=== PATIENT | male | born 1965 | race Two or more races ===

== ENCOUNTER 2020-07-12 14:54 | Emergency (ER) | payer OTHER, SELFPAY ==
--- NOTE | ~2020-07-12 | XR_ITS ---
EXAMINATION: XR HAND, RIGHT CLINICAL INFORMATION: Third finger pain. COMPARISON: None TECHNIQUE: PA, lateral, and oblique views of the right hand. FINDINGS: There is no visible fracture, dislocation or bony abnormality. The soft tissues are normal. XR/XR hand RT min 3V IMPRESSION: Unremarkable right hand exam.
[2020-07-12 15:43] VITALS: BP 140/84; PULSE 89; RESP 16; TEMP 36.3; O2SAT 98; BMI 25.0
--- NOTE | 2020-07-12 16:24 | ED.EXTPRO ---
HPI - Extremity Problem General Chief complaint: Extremity Injury, Upper Stated complaint: finger pain Time Seen by Provider: 07/12/20 16:24 History of Present Illness HPI Narrative: Patient complains of right middle finger pain after punching a wall, the pain is mostly on the palm side of the finger when he bends it fully and straightens it it hurts Related Data Allergies Allergy/AdvReac Type Severity Reaction Status Date / Time glipizide [GLIPIZIDE] Allergy Intermediate ITCHY Verified 07/12/20 15:47 acetaminophen [From TYLOX] AdvReac Intermediate CHEST PAINS Verified 07/12/20 15:47 oxycodone [From TYLOX] AdvReac Intermediate CHEST PAINS Verified 07/12/20 15:47 Review of Systems Review of Systems: Positive for right middle finger pain No fever no chills no numbness no weakness no tingling no skin rash no other joint swelling Yes all other systems are reviewed and are negative PMFSH Past Medical History Source: nursing notes reviewed Medical History (Updated 07/13/20 @ 00:01 by Josesito Clinton) Anxiety Diabetes Physical Exam Vital Signs: Vital Signs: Last Vital Signs Temp 97.4 F 07/12/20 15:43 Pulse 89 07/12/20 15:43 Resp 16 07/12/20 15:43 BP 140/84 H 07/12/20 15:43 Pulse Ox 98 07/12/20 15:43 Body Mass Index 25.0 General appearance no acute distress Head is normocephalic atraumatic Neck is supple Respiratory no acute distress Extremities the right middle finger has mild swelling over the proximal phalanx it does have full range of motion but it is uncomfortable, the skin is intact and it is neurovascular intact distal Other extremities normal Skin no lacerations Neuro no gross motor or sensory deficits Course Course Course Narrative: Patient is given a finger splint for a sprained finger, x-ray was negative for any fracture Discharge Plan Discharge Clinical Impression: Finger sprain Patient Disposition: Home, Self-Care Additional Instructions: Follow with hand specialist for further evaluation for possible soft tissue injury Use splint for comfort as needed Return any concerns Referrals: Suma Lopes MD [Physician] - 2 days (Sprained finger after punching a wall) Interventions: ED Discharge Assessment Last Done: 07/12/20 16:42 Discharge Date/Time: 07/12/20 16:43
== END 2020-07-12 16:43 | disposition home or self-care (01) ==
PROVIDERS: Emergency Provider Emergency Medicine; PCP Internal Medicine
DX: S63.652A Sprain of metacarpophalangeal joint of right middle finger, initial encounter (principal); W22.09XA Striking against other stationary object, initial encounter; E11.9 Type 2 diabetes mellitus without complications; Y93.89 Activity, other specified; Y92.9 Unspecified place or not applicable; Y99.9 Unspecified external cause status
CPT/HCPCS: 29130; 73130; 99283

== ENCOUNTER 2020-11-28 10:09 | Emergency (ER) | payer OTHER, SELFPAY | END 2020-11-28 11:30 | disposition left against medical advice (07) | PROVIDERS: Emergency Provider Emergency Medicine; PCP Internal Medicine | DX: M25.519 Pain in unspecified shoulder (principal) ==

== ENCOUNTER 2021-10-23 11:29 | Emergency (ER) | payer OTHER, SELFPAY ==
[2021-10-23 11:37] VITALS: BP 134/61; PULSE 83; RESP 18; TEMP 36.5; O2SAT 97; BMI 28.8
[2021-10-23 12:43] LABS: COVID-19 Test Negative (Negative); IDNOW Serial# 16C4AD1C
[2021-10-23 12:54] LABS: Strep A Nucleic Acid Negative (Negative)
--- NOTE | 2021-10-23 12:56 | ED_ITS ---
HPI - General Adult General Chief complaint: General Medical Stated complaint: Nasal pain/Throat pain/neck pain Time Seen by Provider: 10/23/21 12:15 Source: patient Mode of arrival: ambulatory History of Present Illness HPI narrative: 56-year-old male with past medical history of anxiety, diabetes, presenting to the ED complaining of left upper dental pain/cracked tooth, left nostril polyp/malodor and sore throat x week. Admits has follow-up with ENT in October. Denies fever, drainage from nostril, dental drainage, inability to swallow, difficulty swallowing, ear pain, cough Onset (ago): week(s) Related Data Previous Rx's Medication Instructions Recorded acetaminophen 500 mg tablet 500 mg PO Q6H PRN fever or pain 10/23/21 (Tylenol Extra Strength) #14 tabs amoxicillin 875 mg-potassium 1 tab PO BID 7 days #14 tabs 10/23/21 clavulanate 125 mg tablet ibuprofen 800 mg tablet 800 mg PO Q8H PRN pain #14 tabs 10/23/21 Allergies Allergy/AdvReac Type Severity Reaction Status Date / Time glipizide [GLIPIZIDE] Allergy Intermediate ITCHY Verified 07/12/20 15:47 acetaminophen [From TYLOX] AdvReac Intermediate CHEST PAINS Verified 07/12/20 15:47 oxycodone [From TYLOX] AdvReac Intermediate CHEST PAINS Verified 07/12/20 15:47 Review of Systems Review of Systems: Constitutional: No Weight loss, No Fever, No Chills ENT/Mouth: No Ear Pain, + Nasal Congestion, + Sinus Pain, No Hoarseness, + sore throat, No Rhinorrhea, No Swallowing Difficulty, +dental pain Cardiovascular: No Chest Pain, No SOB Respiratory: No Cough, No Wheezing Gastrointestinal: No Nausea, No Vomiting, No Diarrhea, No Constipation, No Ab dominal pain Genitourinary: No Dysuria, No Urinary Frequency Musculoskeletal: No joint pain, No Myalgias Skin: No Skin Lesions, No rash Neuro: No Weakness Yes all other systems are reviewed and are negative Constitutional: Constitutional: Reports as per [facility] Past Medical History Attestation statement: The following information was validated with the patient. Medical History (Updated 10/23/21 @ 12:57 by ABHINAV Duarte) Anxiety Diabetes Social History Social History Advance Directives: No Advance Directives Information Provided: Yes Physical Exam ED Vital Signs: Vital Signs - 24 hr 10/23/21 11:37 Temperature 97.7 F Pulse Rate 83 Respiratory Rate 18 Blood Pressure 134/61 Pulse Oximetry 97 Oxygen Delivery Method Room Air BMI result Body Mass Index 28.8 Const General: cooperative, healthy appearing and no acute distress Orientation/consciousness: patient oriented x3 Limitations: no limitations HENMT Other: Left upper cuspid with surrounding gingival irritation and tenderness. No appreciable fluctuance/induration or drainage. No cellulitis Head: Yes normal to inspection and Yes atraumatic Ears: hearing grossly normal bilaterally and TM's normal bilaterally General nose exam: Normal external nose present, no nasal discharge noted and Nasal polyp present on the left (Without active drainage, no pointing, no bleeding) Face and sinus: Yes normal facial exam and Yes sinus tenderness (Left Maxillary) Mouth: Normal oral and palatal mucosa present Teeth and gingiva: poor dentition Throat: Yes posterior oropharynx normal, Yes tonsils normal, No uvula midline, No abnormal tonsil, No uvula laterally displaced and No uvular edema Eyes General: appearance normal, both eyes and all related structures EOM: EOMs intact bilaterally Neck Neck: Yes normal visual inspection and Yes no meningeal signs Resp Effort & Inspection: normal respiratory effort and no respiratory distress Cardio Rate: regular rate Heart sounds: S1 normal heart sound present and S2 normal heart sound present Skin Rashes: no rashes Wounds: no wounds Neuro General: patient oriented x3, tone normal and no meningeal signs Gait exam (Neuro): Normal gait present Extrem General: Yes normal to inspection Medical Decision Making MDM Narrative Medical decision making narrative: 56-year-old male with past medical history of anxiety, diabetes, presenting to the ED complaining of left upper dental pain/cracked tooth, left nostril polyp/malodor and sore throat x week. On exam vital signs stable, NAD, nontoxic appearing, physical exam as above, concern for dental/gingival infection vs sinusitis. No evidence of nasal foreign body, oropharynx WNL. No evidence of dental abscess Plan: COVID-19/rapid strep testing, p.o. antibiotics Medical Records Medical records reviewed: Yes I reviewed the patient's medical records. Lab Data Lab results reviewed: Yes I reviewed the patient's lab results. Labs: Lab Results 10/23/21 10/23/21 Range/Units 12:22 12:22 COVID-19 (BETY) Negative (Negative) COVID-19 Clin Com See Note S. pyogenes GrpA ARIANE Negative (Negative) Discharge Plan Discharge Clinical Impression: Dental infection Patient Disposition: Home, Self-Care Instructions: Mouth Care (ED) Additional Instructions: Augmentin is an antibiotic please take as prescribed. In addition take Tylenol and Motrin for pain. You need to follow-up with a dentist. You likely need her teeth pulled. If the area worsens, pain becomes unbearable, you have fever, drainage from area please return to the ED. You tested negative for COVID-19 and strep throat today Prescriptions: New amoxicillin-pot clavulanate 875-125 mg tablet 1 tab PO BID 7 Days Qty: 14 0RF ibuprofen 800 mg tablet 800 mg PO Q8H PRN (Reason: pain) Qty: 14 0RF acetaminophen [Tylenol Extra Strength] 500 mg tablet 500 mg PO Q6H PRN (Reason: fever or pain) Qty: 14 0RF Referrals: Iban Waldron DMD [Dentist] - Evita Odonnell DMD [Dentist] -
[2021-10-23] MEDS: Ibuprofen 800 MG TABLET PO (13:00)
== END 2021-10-23 13:05 | disposition home or self-care (01) ==
PROVIDERS: Physician Assistant; Emergency Provider Emergency Medicine; PCP Internal Medicine
DX: K04.7 Periapical abscess without sinus (principal); J34.89 Other specified disorders of nose and nasal sinuses; M54.2 Cervicalgia; Z20.822 Contact with and (suspected) exposure to COVID-19; Z79.899 Other long term (current) drug therapy
CPT/HCPCS: 87635; 87651; 99283

== ENCOUNTER 2023-06-25 01:51 | Inpatient (IN) | payer OTHER, SELFPAY ==
[2023-06-25] VITALS (9 sets, daily range): BP systolic 138–166; BP diastolic 69–86; PULSE 55–64; RESP 12–18; TEMP 36.4–36.5; O2SAT 97–100; BMI 24.7
--- NOTE | ~2023-06-25 | MR_ITS ---
MR BRAIN WITHOUT CONTRAST CLINICAL INFORMATION: Suspected acute CVA. COMPARISON: CTA head and neck and head CT 06/25/2023. TECHNIQUE: MRI of the brain was obtained using routine sequences without contrast. FINDINGS: There is no hydrocephalus, extra-axial surface collection, or herniation. There is global cerebral volume loss and there is mild to moderate chronic microangiopathy. The major flow voids at the skull base are preserved. There is no acute infarct on diffusion-weighted imaging. There is no intracranial hemorrhage on the gradient recalled echo acquisition. The midline structures are normal. The cerebellar tonsils are normally positioned. The cerebellum and brainstem are normal. The craniocervical junction is normal. Osseous marrow signal intensity is homogenous. The visualized soft tissues are unremarkable. Moderate right mastoid effusion MR/MR head/brain wo con IMPRESSION: - No acute intracranial findings. No acute infarcts. - There is global cerebral volume loss and there is mild to moderate chronic microangiopathy. - Moderate right mastoid effusion
--- NOTE | ~2023-06-25 | CT_ITS ---
EXAMINATION: CTA NECK WITH CONTRAST (STROKE) CTA BRAIN WITH CONTRAST (STROKE) CLINICAL INFORMATION: Suspect acute stroke. Assess for major vessel occlusion. Please call report. COMPARISON: None available. TECHNIQUE: CTA of the head and neck was performed in the axial plane from the mediastinum to the skull vertex using mL Omnipaque 350 intravenous contrast. Additional reformatted multiplanar images including maximum intensity projection MIP images are generated on the CT workstation. This CT examination was performed using dose optimization techniques as appropriate, variously including the following: *Automated exposure control *Adjustment of mA and/or kV according to patient size (this includes techniques or standardized protocols for targeted exams where dose is matched to indication/reason for exam; i.e. extremities or head) *Use of iterative reconstruction technique DLP: 1535 mGy-cm FINDINGS: The degree of stenosis determined by criteria similar to NASCET. Brain: There is cerebral volume loss with prominence of the lateral and the third ventricles. The cortical sulci are widened appropriately. The fourth ventricle and basal cisterns are normally outlined. There is no acute territorial defect, hemorrhage or midline shift. The extra-axial spaces are unremarkable. Calvarium: Intact. Maxillofacial sinuses and mastoids: Clear as visualized. Chest CTA: There is mild atherosclerotic plaque of the aortic arch. The visualized pulmonary arteries are unremarkable. The right brachycephalic artery, left common carotid artery and left subclavian arteries are patent. There is bilateral upper lobe emphysematous change. Neck CTA: The bilateral internal carotid arteries are patent. The external carotid arteries are also patent. The right vertebral artery is dominant. Both vertebral arteries are patent. Brain CTA: The intracranial internal carotid artery, middle and anterior cerebral arteries are patent. The distal vertebral arteries, basilar artery and branches as well as posterior cerebral arteries are also patent. There is no evidence for aneurysm. CT/CT angio head neck stroke IMPRESSION: 1. No acute territorial infarction or hemorrhage. 2. No intracranial large vessel occlusion. 3. No significant arterial stenosis in the neck. 4. Emphysematous changes in the lungs.
--- NOTE | ~2023-06-25 | CT_ITS ---
EXAMINATION: CT HEAD WITHOUT CONTRAST (STROKE PROTOCOL) CLINICAL INFORMATION: Stroke protocol. Weakness. COMPARISON: None available. TECHNIQUE: Contiguous axial imaging was performed from the skull base to vertex without intravenous administration of contrast. This CT examination was performed using dose optimization techniques as appropriate, variously including the following: *Automated exposure control *Adjustment of mA and/or kV according to patient size (this includes techniques or standardized protocols for targeted exams where dose is matched to indication/reason for exam; i.e. extremities or head) *Use of iterative reconstruction technique DLP: 694 mGy-cm FINDINGS: There is mild cerebral volume loss with prominence of the lateral and the third ventricles. The cortical sulci are widened appropriately. The fourth ventricle and basal cisterns are normally outlined. There is no acute territorial defect, hemorrhage or midline shift. The extra-axial spaces are unremarkable. Calvarium: Intact. Maxillofacial sinuses and mastoids clear as is. CT/CT head for stroke IMPRESSION: 1. No acute intracranial pathology. 2. Mild cerebral volume loss. This critical result was discussed with Dr. Dao at 2:23 AM hours on 06/25/2023. It was ascertained that the content and urgency of the report was understood at the time of direct communication.
--- NOTE | 2023-06-25 02:08 | ECG_ITS ---
Test Reason : STROKE Blood Pressure : / mmHG Vent. Rate : 069 BPM Atrial Rate : 069 BPM P-R Int : 124 ms QRS Dur : 082 ms QT Int : 384 ms P-R-T Axes : 029 053 -16 degrees QTc Int : 411 ms Normal sinus rhythm Cannot rule out Inferior infarct , age undetermined Abnormal ECG When compared with ECG of 21-APR-2018 09:55, Vent. rate has decreased BY 37 BPM Referred By: Srikanth Dao Electronically Signed By:FRANKIE DOTY MD
--- NOTE | 2023-06-25 02:08 | ED_ITS ---
HPI - Neuro Symptoms/Deficit General Chief Complaint: Stroke Stated Complaint: L Side Numbness/?Sinus infection Time Seen by Provider: 06/25/23 02:08 History of Present Illness HPI Narrative: The patient says it 15 minutes before he arrived at the hospital he had woken from sleep and felt that he had left-sided weakness and numbness. He says that he felt weak walking to the bathroom. He says that he had been asleep when he woke up with the symptoms. He was last certain that he was normal at around 10PM. Related Data Previous Rx's ?Medication ?Instructions ?Recorded acetaminophen 500 mg tablet 500 mg PO Q6H PRN fever or pain 10/23/21 (Tylenol Extra Strength) #14 tabs amoxicillin 875 mg-potassium 1 tab PO BID 7 days #14 tabs 10/23/21 clavulanate 125 mg tablet ibuprofen 800 mg tablet 800 mg PO Q8H PRN pain #14 tabs 10/23/21 Allergies Allergy/AdvReac Type Severity Reaction Status Date / Time glipizide [GLIPIZIDE] Allergy Intermediate ITCHY Verified 06/25/23 02:07 acetaminophen [From TYLOX] AdvReac Intermediate CHEST PAINS Verified 06/25/23 02:07 oxycodone [From TYLOX] AdvReac Intermediate CHEST PAINS Verified 06/25/23 02:07 Review of Systems 2 Review of Systems: Yes all other systems are reviewed and are negative [facility] Past Medical History Medical History (Updated 06/25/23 @ 06:09 by Srikanth Dao MD) Anxiety Diabetes Social History Social History Advance Directives: Yes Advance Directives on File: Yes Advance Directives Date on File: 10/24/21 Do you have a plan to hurt others: No Plan Physical Exam 2 Vital Signs: Vital Signs: Last Vital Signs Temp 97.7 F 06/25/23 02:04 Pulse 57 06/25/23 05:55 Resp 15 06/25/23 05:55 BP 139/76 06/25/23 05:55 Pulse Ox 98 06/25/23 05:55 O2 Del Method Room Air 06/25/23 05:55 BMI result Body Mass Index 24.7 Const: Other: The patient is awake and alert. He did not obviously display a neurological deficit. HEENT: Other: There is some mild left-sided facial weakness more apparent when the patient smiles. Eyes: Other: Lateral gaze intact, visual regalado are intact to confrontation Neck: Other: Neck is supple Resp: Effort & Inspection: normal respiratory effort Auscultation: clear to auscultation bilaterally Cardio: Rate: regular rate Rhythm: regular rhythm Heart sounds: S1 normal heart sound present and S2 normal heart sound present GI: Other: Abdomen is soft and nontender Skin: Other: Skin is dry and unremarkable Neuro: Other: The patient is awake, alert, oriented and appropriate. He can correctly tell me the month and his age. He has some mild left-sided facial weakness. Eye movements are intact. Visual regalado are intact. Speech is normal. He has some very slight left arm weakness apparent as very mild pronator drift. Strength in the legs seems symmetrical. Finger-nose is intact. Heel-lombardi is intact. He reports some mild diminished sensation in the left arm in the left face. There is no neglect. NIH stroke scale is 3. Extrem: Other: No peripheral edema Medications Administered Discontinued Medications Generic Name Dose Route Start Last Admin Trade Name Conner PRN Reason Stop Dose Admin Aspirin 325 mg 06/25/23 02:55 06/25/23 03:52 Aspirin 325 Mg Tablet PO 06/25/23 02:56 325 mg ONCE ONE Administration Sodium Chloride 1,000 mls @ 999 mls/hr 06/25/23 03:15 06/25/23 04:55 Ns IV 06/25/23 04:15 Infused .Q1H1M NILE Infusion Iohexol 70 ml 06/25/23 02:28 06/25/23 02:29 Iohexol 350 Mg/Ml 100 Ml Infus..Btl IV 06/25/23 02:29 70 ml ONCE ONE Administration Medical Decision Making Medical Decision Making [facility] Narrative: The patient is a 58-year-old male with a history of type 2 diabetes who came to the emergency room after he woke up and noticed that he had left-sided weakness and numbness. He drove himself to the emergency room. He would discovered the symptoms were apparent only 15 minutes before coming to the emergency room but he had been asleep when he woke to find himself with the left-sided weakness and he estimates that he was last certain he had no left-sided weakness at around 22:00. He therefore presented for evaluation of a possible stroke syndrome with a last known well of 22:00 earlier in the evening. I was asked to see the patient promptly. The patient had very mild symptoms of mild left facial droop and very minimal left arm pronator drift and a sense of minor decreased sensation on the left. His NIH stroke scale was therefore 3. He was sent promptly for a noncontrast head CT and a CT angiogram of the head and neck. I received the reading of his noncontrast head CT at 02:23. This was 4 hours and 23 minutes after his last known well. At that point the patient had not even returned from the CAT scan machine (the CT angiogram was still in process). Ultimately we hit 4-1/2 hour romeo before thrombolytic therapy could be administered. I spoke to the on-call neurologist but it was after the 4-1/2 hour window had closed. Given the mildness of the patient's symptoms I did not feel that this was any great loss as his symptoms were clearly not a disabling stroke. His CT angiogram of the head and neck was ultimately read as showing no acute findings. Patient was given oral aspirin after passing a swallow screen and was also given a L of IV fluids. He was observed while waiting for the results of a CT angiogram and during that time his symptoms entirely resolved. His NIH stroke scale was 0 on my exam after the results of the CT angiogram were available. Therefore this point the patient is behaving more like a TIA than a stroke. In any event he will be admitted to the hospitalist service for further evaluation. Lab Data 06/25/23 02:13 06/25/23 02:13 Labs: Lab Results 06/25/23 06/25/23 Range/Units 02:13 03:28 WBC 8.6 (4.8-10.8) X10*3/uL RBC 5.67 (4.60-5.80) X10*6/uL Hgb 16.2 (14.0-18.0) g/dl Hct 47.2 (42.0-52.0) % MCV 83.2 (80.0-98.0) fL MCH 28.6 (27.0-33.0) pg MCHC 34.3 (31.0-36.0) g/dl RDW 12.4 (11.0-16.0) % Plt Count 218 (160-400) X10*3/uL MPV 9.7 (9.4-12.4) fL Immature Gran % (Auto) 0.5 H (0.0-0.4) % Neut % (Auto) 61.4 (45-73) % Lymph % (Auto) 27.6 (20-40) % [place] % (Auto) 8.6 (2-11) % Eos % (Auto) 1.4 (0-4) % Baso % (Auto) 0.5 (0-2) % Lymph # (Auto) 2.4 (1.2-4.9) X10*3/uL [place] # (Auto) 0.7 (0.1-1.2) X10*3/uL Eos # (Auto) 0.1 (0.0-0.4) X10*3/uL Baso # (Auto) 0.0 (0.0-0.2) X10*3/uL Abs Immat Gran (auto) 0.04 H (0.00-0.03) X10*3/uL Absolute Neuts (auto) 5.3 (2.0-8.3) x10*3/uL Absolute Nucleated RBC 0.000 (0.0-0.012) X10*3/uL Nucleated RBC % (auto) 0.0 (0.0-0.2) /100WBC PT 13.0 (11.1-13.3) SEC INR 1.1 (0.9-1.1) APTT 35.0 (26.0-36.8) SEC Sodium 140 (135-145) mmol/L Potassium 3.7 (3.3-5.1) mmol/L Chloride 102 (96-108) mmol/L Carbon Dioxide 31 H (22-29) mmol/L Anion Gap 11 L (12-20) BUN 14 (9-16) mg/dL Creatinine 1.03 (0.5-1.4) mg/dL Estim Creat Clear Calc 81.7 Estimated GFR > 60 POC Glucose 143 H (60-115) mg/dL Random Glucose 149 H (60-115) mg/dL Calcium 9.5 (8.4-10.2) mg/dL Magnesium 2.1 (1.6-2.6) mg/dL Total Creatine Kinase 192 H (38-174) U/L Troponin I High Sens 2.7 (<3.5-35.0) ng/L B-Natriuretic Peptide 21 (<100) pg/mL Independent Interpretation I performed an independent interpretation of an: EKG Interpretation: EKG at 0207 shows normal sinus rhythm at 62 beats per minute Critical Care Time Critical Care Time Critical Care Time: Yes Total Critical Care Time: 45 Attestation: The patient was critically ill with a high probability of imminent or life- threatening deterioration. ?I spent greater than 30 minutes of discontinuous time evaluating the patient, delivering critical care at the bedside, discussing evaluating data with consultants. ?Critical care time does not include time spent performing separately billable procedures or teaching. ?Time spent performing critical care with 45 minutes. Discharge Plan Discharge Print Language: Yoruba
[2023-06-25 02:17] LABS: Basophils Percent Auto 0.5 % (0-2); Eosinophils Absolute Auto 0.1 X10*3/uL (0.0-0.4); Eosinophils Percent Auto 1.4 % (0-4); Hematocrit 47.2 % (42.0-52.0); Hemoglobin 16.2 g/dl (14.0-18.0); Imm Gran Abs Auto 0.04 X10*3/uL (0.00-0.03); Imm Gran Pct Auto 0.5 % (0.0-0.4); Lymphocytes Absolute Auto 2.4 X10*3/uL (1.2-4.9); Lymphocytes Percent Auto 27.6 % (20-40); MANUAL DIFF FLAG NO; Mean Corpuscular HGB Conc 34.3 g/dl (31.0-36.0); Mean Corpuscular Hemoglobin 28.6 pg (27.0-33.0); Mean Corpuscular Volume 83.2 fL (80.0-98.0); Mean Platelet Volume 9.7 fL (9.4-12.4); Monocytes Absolute Auto 0.7 X10*3/uL (0.1-1.2); Monocytes Percent Auto 8.6 % (2-11); Neutrophils Absolute Auto 5.3 x10*3/uL (2.0-8.3); Neutrophils Percent Auto 61.4 % (45-73); Platelet Count 218 X10*3/uL (160-400); Red Blood Count 5.67 X10*6/uL (4.60-5.80); Red Cell Distribution Width 12.4 % (11.0-16.0); White Blood Count 8.6 X10*3/uL (4.8-10.8)
--- NOTE | 2023-06-25 02:17 | PC.NURSE ---
pt came in from waiting room reporting he drove himself here as 15 min ago pt started having L. sided numbness/L. sided facial droop. on arrival pt is axox4 speaking full clear sentences. no slurred speech noted. L. sided facial droop evident. Dr. Dao called to bedside. stroke alert called. pt changed to hospital gown placed on heart monitor iv established labs drawn. vitals as documented. ekg obtained. pt appears to be having some difficulty finding words when speaking. slight drift noted of LUE. no deficit noted of BLE. pt in ct scan at this time.
[2023-06-25 02:23] LABS: INTERNATIONAL NORM RATIO 1.1 (0.9-1.1)
[2023-06-25] MEDS: iohexoL 350 MG/ML 100 ML INFUS..BTL 70 ML IV (02:29)
--- NOTE | 2023-06-25 02:34 | PC.NURSE ---
pt return from ct. dr. marin at bedside.
[2023-06-25 02:37] LABS: Stroke Lab Use COMPLETE
[2023-06-25 02:40] LABS: Troponin-I High Sensitivity 2.7 ng/L (<3.5-35.0)
--- OUTSIDE RECORDS SUMMARY | 2023-06-25 02:48 | XMS_ITS | Continuity of Care Document ---
Author Organization [facility] Address [address] [place] [address]- Care Team Providers Care Hearing Specialist Name Role Phone Yoel Parrish MD Primary Care Physician Encounter [facility] Date(s): 03/26/21 - 04/28/[address] [address]- Attending Physician: Yoel Parrish MD Admitting Physician: Yoel Parrish MD Referring Physician: Yoel Parrish MD Allergies, Adverse Reactions, Alerts Substance Reaction Severity Status glipiZIDE facial swelling,rash Active Tylox Chest pain not present Activ e Immunizations Given and Recorded Vaccine Date Status Refusal Reason SARS-CoV-2 (COVID-19) mRNA BNT-162b2 vac 03/12/21 Recorded SARS-CoV-2 (COVID-19) mRNA BNT-162b2 vac 06/11/20 Recorded SARS-CoV-2 (COVID-19) mRNA BNT-162b2 vac 05/21/20 Recorded influenza virus vaccine, inactivated 11/18/19 Jose rded influenza virus vaccine, inactivated 1 11/19/18 Gi ancelmo influenza virus vaccine, inactivated 2 11/18/18 Gi ancelmo influenza virus vaccine, inactivated 12/21/17 Jose rded influenza virus vaccine, inactivated 3 01/05/17 Gi ancelmo Zoster Vaccine Live 03/23/19 Recorded zoster vaccine, inactivated 01/25/19 Recorded zoster vaccine, inactivated 11/18/18 Recorded pneumococcal 23-valent vaccine 12/21/17 Recorded pneumococcal 23-valent vaccine 4 11/05/16 Given tetanus/diphtheria/pertussis, acel(Tdap) 01/05/17 Given pneumococcal 13-valent vaccine 5 09/14/16 Recorded 1Result Comment: [facility] [id number] 2Result Comment: [facility] [id number] 3Result Comment: [facility] [phone] 4[facility] History[facility] Medications Aspirin Enteric Coated 81 mg oral delayed release tablet See Instructions, TAKE ONE TABLET BY MOUTH EVERY DAY, # 90 tablet, 3 Refills, 03/22/21 10:20:00 EST, [facility], 167, cm, 03/22/21 9:18:00 EST, Height, 85.8, kg, 04/27/19 11:30:00 EST, Dry Weight Start Date: 03/22/21 Status: Ordered Flovent HFA 110 mcg/inh inhalation aerosol 2 puffs, Inhalation, 2 times a day, for 90 days, # 12 Gm, 3 Refills, Physician Stop 03/17/22 10:20:00 EST, 03/22/21 10:20:00 EST, [facility], 167, cm, 03/22/21 9:18:00 EST, Height, 85.8, kg, 04/27/19 11:30:00 EST, Dry Weight Start Date: 03/22/21 Stop Date: 03/17/22 Status: Ordered Freestyle Lancets See Instructions, # 600 each, Refills 2, Tot. Refills 2, Maintenance, USE TO CHECK GLUCOSE BID DX E11.9, 03/31/19 11:21:00 EST, Compound, 168, cm, 03/28/19 12:20:00 EST, Height Start Date: 03/31/19 Stop Date: 12/26/19 Status: Ordered FREESTYLE LITE TEST STRP FREESTYLE LITE TEST STRP, See Instructions, # 600 Unknown, 4 Refills, TEST BLOOD SUGARS 4 TIMES DAILY, 167, cm, 03/22/21 9:18:00 EST, Height, 85.8, kg, 04/27/19 11:30:00 EST, Dry Weight Start Date: 03/22/21 Status: Ordered Freestyle Lite Test Strips See Instructions, # 720 each, Refills 1, Tot. Refills 1, Maintenance, use to test blood sugars 4 times daily Dx: E11.9, 01/17/21 7:48:00 EST, 90 day supply ; please void 600 strips for 60 days, Compound, 167, cm, 10/26/19 9:29:00 EDT, Height, 85.8, k... Start Date: 01/17/21 Stop Date: 07/16/21 Status: Ordered Freestyle Lite Test Strips See Instructions, for 90 days, # 600 each, Refills 5, Tot. Refills 5, Hard Stop 10/11/22 12:09:00 EDT, use to test blood sugars 4 times daily Dx: E11.9, 04/19/21 12:09:00 EST, Compound, 167, cm, 04/19/21 11:50:00 EST, Height, 85.8, kg, 04/27/19 11:30... Start Date: 04/19/21 Stop Date: 10/11/22 Status: Ordered gabapentin 300 mg oral capsule 300 mg, 1, capsule, By Mouth, Daily at bedtime, # 30 capsule, Refills 5, Tot. Refills 5, Maintenance, 03/22/21 10:17:00 EST, Route to Pharmacy Electronically, [facility], Partial fill upon patient request if the prescription is for a sche... Start Date: 03/22/21 Stop Date: 09/18/21 Status: Ordered Januvia 100 mg oral tablet See Instructions, TAKE ONE TABLET BY MOUTH EVERY DAY, # 90 tablet, 3 Refills, 03/22/21 10:20:00 EST, [facility], 167, cm, 03/22/21 9:18:00 EST, Height, 85.8, kg, 04/27/19 11:30:00 EST, Dry Weight Start Date: 03/22/21 Status: Ordered Lantus Solostar Pen 100 units/mL subcutaneous solution See Instructions, INJECT 15 UNITS SUBCUTANEOUSLY DAILY AT BEDTIME, # 10 mL, 3 Refills, 03/22/21 10:21:00 EST, [facility], 167, cm, 03/22/21 9:18:00 EST, Height, 85.8, kg, 04/27/19 11:30:00 EST, Dry Weight Start Date: 03/22/21 Status: Ordered LORazepam 1 mg oral tablet 1 tablet = 1 mg, By Mouth, 3 times a day, PRN as needed for anxiety, # 90 tablet, 0 Refills, Maintenance, 03/22/21 14:33:00 EST, Tablet, [facility], 167, cm, 03/22/21 9:18:00 EST, Height, 85.8, kg, 04/27/19 11:30:00 EST, Dry Weight Start Date: 03/22/21 Status: Ordered metFORMIN 1000 mg oral tablet 1 tablet = 1,000 mg, By Mouth, 2 times a day, # 180 tablet, 3 Refills, Maintenance, 03/22/21 10:21:00 EST, Tablet, [facility], 167, cm, 03/22/21 9:18:00 EST, Height, 85.8, kg, 04/27/19 11:30:00 EST, Dry Weight Start Date: 03/22/21 Status: Ordered MiraLax oral powder for reconstitution = 17 Gm, By Mouth, 2 times a day, for 90 days, dissolve in water before taking, # 527 Gm, 3 Refills, Hard Stop 04/23/22 8:03:00 EST, 04/28/21 8:03:00 EST, REC Powder, [facility], 17 Gm By Mouth 2 times a day,x90 days,Instr:dissolve in johnny... Start Date: 04/28/21 Stop Date: 04/23/22 Status: Ordered omeprazole 20 mg oral enteric coated capsule 1 capsule = 20 mg, By Mouth, Daily, # 90 capsule, 3 Refills, Maintenance, 04/14/21 8:29:00 EST, EC Capsule, [facility], 167, cm, 03/22/21 9:18:00 EST, Height, 85.8, kg, 04/27/19 11:30:00 EST, Dry Weight Start Date: 04/14/21 Status: Ordered PARoxetine 30 mg oral tablet See Instructions, TAKE ONE TABLET BY MOUTH TWICE A DAY, # 180 tablet, 3 Refills, 03/22/21 10:20:00 EST, [facility], 167, cm, 03/22/21 9:18:00 EST, Height, 85.8, kg, 04/27/19 11:30:00EST, Dry Weight Start Date: 03/22/21 Status: Ordered Pen [place], 31 G x 8 mm BD Ultra Fine III See Instructions, # 100 each, Refills 5, Tot. Refills 5, Maintenance, Use daily with insulin Dx: Type 2 Diabetes Mellitus, 08/07/20 14:26:00 EDT, Supply, 167, cm, 10/26/19 9:29:00 EDT, Height, 85.8, kg, 04/27/19 11:30:00 EST, Dry Weight Start Date: 08/07/20 Stop Date: 02/03/21 Status: Ordered QUEtiapine 150 mg oral tablet, extended release 1, tablet, By Mouth, Daily, for 90 days, # 90 tablet, Refills 3, Tot. Refills 3, Physician Stop 03/17/22 10:20:00 EST, 03/22/21 10:20:00 EST, Route to Pharmacy Electronically, [facility], 167, cm, 03/22/21 9:18:00 EST, Height, 85.8, kg, 0... Start Date: 03/22/21 Stop Date: 03/17/22 Status: Ordered rosuvastatin 10 mg oral tablet 1 tablet = 10 mg, By Mouth, Daily, # 90 tablet, 3 Refills, Maintenance, 04/27/21 12:53:00 EST, Tablet, [facility], 167, cm, 03/22/21 9:18:00 EST, Height, 85.8, kg, 04/27/19 11:30:00 EST, Dry Weight Start Date: 04/27/21 Status: Ordered Ventolin HFA 108 mcg/inh inhalation aerosol with adapter 2 puffs, Inhalation, 4 times a day, PRN for wheezing, # 18 Gm, 3 Refills, Maintenance, 03/22/21 10:21:00 EST, Aerosol, [facility], 167, cm, 03/22/21 9:18:00 EST, Height, 85.8, kg, 04/27/19 11:30:00 EST, Dry Weight Start Date: 03/22/21 Status: Ordered Problem List Condition Effective Dates Status Health Status Inform ant Asthma(Confirmed) Active CKD (chronic kidney disease)(Confirmed) Active Cigarette smoker(Confirmed) Active DM (diabetes mellitus)(Confirmed) Active H. pylori infection(Confirmed) Active Hyperlipidemia(Confirmed) Active Anxiety and depression(Confirmed) Active Hepatic steatosis(Confirmed) Active Gastric regurgitation(Confirmed) Active Social History Social History Type Response Smoking Status Former smoker; Tobac co user in household: No entered on: 08/07/16 Sex
--- OUTSIDE RECORDS SUMMARY | 2023-06-25 02:48 | XMS_ITS | Continuity of Care Document ---
Author Organization [facility] Address [address] [place] [address]- Care Team Providers Care Raw Juice Weigher Name Role Phone Shivani IBARRA, [facility] Primary Care Physician Encounter [facility] Date(s): 05/14/21 - 06/13/21 [facility] [address] [place] [address]- Allergies, Adverse Reactions, Alerts Substance Reaction Severity [...] 13-valent vaccine 5 09/14/16 Recorded 1Result Comment: [facility] [id number] 2Result Comment: [facility] [id number] 3Result Comment: [facility] [phone] 4[facility] [...] EST, Route to Pharmacy Electronically, [facility], Partial fill upon patient request [...] anxiety, # 90 tablet, 0 Refills, Maintenance, 05/15/21 12:35:00 EDT, Tablet, [facility], 167, cm, 04/19/21 11:50:00 EST, Height Start Date: 05/15/21 Status: Ordered metFORMIN 1000 mg oral tablet [...] 8:03:00 EST, 04/28/21 8:03:00 EST, REC Powder, [facility], 17 Gm By [...] Weight Start Date: 03/22/21 Status: Ordered [place], 31 G x 8 mm BD Ultra [...] 03/22/21 10:20:00 EST, Route to Pharmacy Electronically, [facility], 167, cm, 03/22/21 9:18:00 EST, Height, 85.8, kg, 0... Start Date: 03/22/21 Stop Date: 03/17/22 Status: Ordered rosuvastatin 10 mg oral tablet 1 tablet = 10 mg, By Mouth, Daily, # 90 tablet, 3 Refills, Maintenance, 04/27/21 12:53:00 EST, Tablet, [facility], 167, cm, 03/22/21 9:18:00 EST, Height, 85.8, kg, 04/27/19 11:30:00 EST, Dry Weight Start Date: 04/27/21 Status: Ordered Ventolin HFA 108 mcg/inh inhalation aerosol with adapter 2 puffs, Inhalation, 4 times a day, PRN for wheezing, # 18 Gm, 3 Refills, Maintenance, 03/22/21 10:21:00 EST, Aerosol, [facility], 167, cm, 03/22/21 9:18:00 EST, [...]
--- OUTSIDE RECORDS SUMMARY | 2023-06-25 02:48 | XMS_ITS | Continuity of Care Document ---
Author Organization [facility] Address [address] [place] [address]- Care Team Providers Care Manager Investment Name Role Phone Yoel Parrish MD Primary Care Physician ( [phone] Encounter [facility] Date(s): 04/12/19 - 04/19/19 [facility] [address] [place] [address] [facility] Encounter Diagnosis DM (diabetes mellitus)(Discharge Diagnosis) - 04/12/19 Attending Physician: Yoel Parrish MD Allergies, Adverse Reactions, Alerts Substance Reaction Severity Status glipiZIDE Active Tylox Chest pain not present Activ e Immunizations Given and Recorded Vaccine Date Status Refusal Reason Zoster Vaccine Live 03/23/19 Recorded influenza virus vaccine, inactivated 1 11/19/18 Gi ancelmo influenza virus vaccine, inactivated 2 11/18/18 Gi ancelmo influenza virus vaccine, inactivated 3 01/05/17 Gi ancelmo tetanus/diphtheria/pertussis, acel(Tdap) 01/05/17 Given pneumococcal 23-valent vaccine 4 11/05/16 Given pneumococcal 13-valent vaccine 5 09/14/16 Recorded 1Result Comment: [facility] [id number] 2Result Comment: [facility] [phone] 3Result Comment: [facility] [id number] 4[facility]Location History: [facility] Medications aspirin 81 mg oral delayed release tablet 81 mg, 1, tablet, By Mouth, Daily, # 90 tablet, Refills 2, Tot. Refills 2, Maintenance, 07/12/19 10:12:05 EDT, Route to Pharmacy Electronically, [id number], [facility] Start Date: 07/12/19 Stop Date: 04/07/20 Status: Ordered Flovent HFA 110 mcg/inh inhalation aerosol 2 puffs, Inhalation, 2 times a day, # 12 Gm, 5 Refills, Maintenance, 02/07/19 14:05:51 EST, Aerosol, 168, cm, 11/18/18 11:57:26 EDT, Height Start Date: 02/07/19 Status: Ordered Freestyle Lancets See Instructions, # 600 each, Refills 2, Tot. Refills 2, Maintenance, USE TO CHECK GLUCOSE BID DX E11.9, 03/31/19 11:21:00 EST, Compound, 168, cm, 03/28/19 12:20:00 EST, Height Start Date: 03/31/19 Stop Date: 12/26/19 Status: Ordered Freestyle Lite Test Strips See Instructions, # 600 each, Refills 5, Tot. 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 Refills5, Maintenance, 03/23/19 9:45:00 EST, Route to Pharmacy Electronically, [facility], 168, cm, 03/23/19 9:12:00 EST, Height Start Date: 03/23/19 Stop Date: 09/19/19 Status: Ordered Januvia 100 mg oral tablet See Instructions, # 90 tablet, TAKE ONE TABLET BY MOUTH EVERY DAY, [facility] Start Date: 12/22/18 Status: Ordered Lantus Solostar Pen 100 units/mL subcutaneous solution = 15 units, Subcutaneous Injection, Daily at bedtime, # 15 mL, 1 Refills, Maintenance, 03/25/19 15:43:00 EST, Solution, [facility], 168, cm, 03/23/19 9:12:00 EST, Height Start Date: 03/25/19 Stop Date: 05/24/19 Status: Ordered LORazepam 1 mg oral tablet 1 tablet = 1 mg, By Mouth, 3 times a day, PRN as needed for anxiety, 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 SERVICE OPERATOR reviewed [id number], # 90 tablet, 0 Refills, Maintenance, 04/08/19 17:00:00 EST, Tablet, [facility], 168, cm, 03/28/19 12:20:00 EST, Height Start Date: 04/08/19 Stop Date: 05/08/19 Status: Ordered metFORMIN 1000 mg oral tablet 1 tablet = 1,000 mg, By Mouth, 2 times a day, # 180 tablet, 0 Refills, Maintenance, 03/09/19 16:33:00 EST, Tablet, [facility], 168, cm, 11/18/18 11:57:00 EDT, Height Start Date: 03/09/19 Status: Ordered MiraLax oral powder for reconstitution = 17 Gm, By Mouth, 2 times a day, dissolve in water before taking, # 3,060 Gm, 1 Refills, Maintenance, 03/13/19 8:16:00 EST, REC Powder, [facility], 17 Gm By Mouth 2 times a day,x90 days,Instr:dissolve in water before taking, 168, cm, ... Start Date: 03/13/19 Stop Date: 09/09/19 Status: Ordered omeprazole 20 mg oral enteric coated capsule 1 capsule = 20 mg, By Mouth, Daily, # 90 capsule, 1 Refills, Maintenance, 02/01/19 15:50:03 EST, ECCapsule, 168, cm, 11/18/18 11:57:26 EDT, Height Start Date: 02/01/19 Stop Date: 07/31/19 Status: Ordered Paxil 30 mg oral tablet 1 tablet = 30 mg, By Mouth, 2 times a day, # 180 tablet, 1 Refills, Maintenance, 03/22/19 10:29:00 EST, Tablet, [facility], 168, cm, 11/18/18 11:57:00 EDT, Height Start Date: 03/22/19 Stop Date: 09/18/19 Status: Ordered Pen [place], 30 G x 8 mm BD Ultra Fine II See Instructions, # 100 each, Refills 5, Tot. Refills 5, Maintenance, use as directed for Type 1 Diabetes Mellitus, 03/25/19 15:43:00 EST, Compound, 168, cm, 03/23/19 9:12:00 EST, Height Start Date: 03/25/19 Stop Date: 09/21/19 Status: Ordered rosuvastatin 10 mg oral tablet 1 tablet = 10 mg, By Mouth, Daily, # 30 tablet, 11 Refills, Maintenance, 03/23/19 9:46:00 EST, Tablet, [facility], 168, cm, 03/23/19 9:12:00 EST, Height Start Date: 03/23/19 Status: Ordered SEROquel XR 150 mg oral tablet, extended release 150 mg, 1, tablet, By Mouth, Daily, # 30 tablet, Refills 2, Tot. Refills 2, Maintenance, 03/09/19 16:34:00 EST, Route to Pharmacy Electronically, [facility], 168, cm, 11/18/18 11:57:00 EDT, Height Start Date: 03/09/19 Status: Ordered Ventolin HFA 108 mcg/inh inhalation aerosol with adapter 2 puffs, Inhalation, 4 times a day, PRN for wheezing, # 18 Gm, 5 Refills, Maintenance, 06/23/18 8:15:08 EDT, Aerosol Start Date: 06/23/18 Status: Ordered Problem List Condition Effective Dates Status Health Status Inform ant Abdominal bloating(Confirmed) Active Asthma(Confirmed) Active CKD (chronic kidney disease)(Confirmed) Active Straining with stools(Confirmed) Active DM (diabetes mellitus)(Confirmed) Active Epigastric pain(Confirmed) Active H. pylori infection(Confirmed) Active Hyperlipidemia(Confirmed) Active Dyspepsia(Confirmed) Active Anxiety and depression(Confirmed) Active Encounter for screening colonoscopy(Confirmed) Active Hepatic steatosis(Confirmed) Active Gastric regurgitation(Confirmed) Active Diagnosis Diagnosis Type Effective Dates Health Status Cl inical Service Informant DM (diabetes mellitus) Discharge Diagnosis 04/12/19 Vital Signs Most recent to oldest [Reference Range]: 1 Height 168 cm (04/12/19 11:37 AM) Weight 89.1 kg (04/12/19 11:37 AM) Oxygen Saturation [94-100 %] 95 % (04/12/19 11:37 AM) Pulse Rate [55-90 bpm] 105 bpm *H* (04/12/19 11:37 AM) Body Mass Index [18.5-24.99] 31.57 *>HHI* (04/12/19 11:37 AM) Blood Pressure [90-138/55-84 mm Hg] 118/ 78mm Hg (04/12/19 11:37 AM) Respiratory Rate [16-30 br/min] 18 br/mi n (04/12/19 11:37 AM) Temperature [96.8-100.4 DegF] 98.0 DegF (04/12/19 11:37 AM) Mode of Delivery (Oxygen) Room air (04/12/19 11:37 AM) Blood pressure sites Arm, left (04/12/19 11:37 AM) Temperature Route Oral (04/12/19 11:37 AM) Weight Obtained Via Standing scale (04/12/19 11:37 AM) Social History Social History Type Response Smoking Status Former smoker; Tobac co user in household: No entered on: 08/07/16 Sex
--- OUTSIDE RECORDS SUMMARY | 2023-06-25 02:48 | XMS_ITS | Continuity of Care Document ---
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 Name Role Phone Yoel Parrish MD Primary Care Physician ( [phone] Encounter [facility] Date(s): 03/28/19 - 04/04/19 [facility] [address] [place] [address]- [facility] Encounter Diagnosis DM (diabetes mellitus)(Discharge Diagnosis) - 03/28/19 Attending Physician: Yoel Parrish MD Allergies, Adverse [...] 13-valent vaccine 5 09/14/16 Recorded 1Result Comment: [facility] [phone] 2Result Comment: [facility] [id number] 3Result Comment: [facility] [id number] [phone] 4[facility]Location History: [facility] Medications aspirin 81 mg oral delayed release tablet 81 mg, 1, tablet, By Mouth, Daily, # 90 tablet, Refills 2, Tot. Refills 2, Maintenance, 07/12/19 10:12:05 EDT, Route to Pharmacy Electronically, [id number], [facility] Start Date: [...] Refills 5, Tot. 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 reviewed 01/26/2019, # 30 capsule, Refills 5, [...] Solostar Pen 100 units/mL subcutaneous solution = 10 units, Subcutaneous Injection, Daily at bedtime, # 15 mL, 1 Refills, Maintenance, 03/25/19 15:43:00 EST, Solution, [facility], 168, cm, 03/23/19 9:12:00 EST, Height Start Date: 03/25/19 Stop Date: 3/24/20 Status: Ordered LORazepam 1 mg oral tablet 1 tablet = 1 mg, By Mouth, 3 times a day, PRN as needed for anxiety, 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 [id number], # 90 tablet, 2 Refills, Maintenance, 01/10/19 11:42:00 EST, Tablet Start Date: 01/10/19 Stop Date: 04/10/19 Status: Ordered metFORMIN 1000 mg oral tablet [...] 03/22/19 Stop Date: 09/18/19 Status: Ordered Pen [place], 30 G x 8 mm BD Ultra [...] Service Informant DM (diabetes mellitus) Discharge Diagnosis 03/28/19 Vital Signs Most recent to oldest [Reference Range]: 1 Height 168 cm (03/28/19 12:20 PM) Weight 85.2 kg (03/28/19 12:20 PM) Oxygen Saturation [94-100 %] 95 % (03/28/19 12:20 PM) Pulse Rate [55-90 bpm] 101 bpm *H* (03/28/19 12:20 PM) Body Mass Index [18.5-24.99] 30.19 *>HHI* (03/28/19 12:20 PM) Blood Pressure [90-138/55-84 mm Hg] 132/ 80mm Hg (03/28/19 12:20 PM) Temperature [96.8-100.4 DegF] 98.8 DegF (03/28/19 12:20 PM) Mode of Delivery (Oxygen) Room air (03/28/19 12:20 PM) Blood pressure sites Arm, left (03/28/19 12:20 PM) Temperature Route Oral (03/28/19 12:20 PM) Weight Obtained Via Standing scale (03/28/19 12:20 PM) Social History Social History Type Response Smoking Status Former smoker; Tobac co user in household: No entered on: 08/07/16 Sex
--- OUTSIDE RECORDS SUMMARY | 2023-06-25 02:48 | XMS_ITS | Continuity of Care Document ---
Author Organization [facility] Adult Address [address] [place] [address]- Care Team Providers Care Diploma Medical Assistant Name Role Phone Shivani IBARRA, [facility] Primary Care Physician Encounter [facility] [place] Date(s): 11/20/20 - 12/21/20 [facility] [address] [place] [address]- Attending Physician: Fausto Bruner MD Allergies, Adverse Reactions, Alerts Substance Reaction Severity Status glipiZIDE facial swelling,rash Active Tylox Chest pain not present Activ e Immunizations Given and Recorded Vaccine Date Status Refusal Reason SARS-CoV-2 (COVID-19) mRNA BNT-162b2 vac 06/11/20 Recorded [...] 13-valent vaccine 5 09/14/16 Recorded 1Result Comment: [facility] [id number] 2Result Comment: [facility] [id number] 3Result Comment: [facility] [id number] [phone] 4[facility] 5[facility] History: [facility] Medications Aspirin Enteric Coated 81 mg oral delayed release tablet See Instructions, TAKE ONE TABLET BY MOUTH EVERY DAY, # 90 tablet, 0 Refills, [facility], 167, cm, 10/26/19 9:29:00 EDT, Height, 85.8, kg, 04/27/19 11:30:00 EST, Dry Weight Start Date: 11/13/20 Status: Ordered Flovent HFA 110 mcg/inh inhalation aerosol See Instructions, INHALE TWO PUFFS INTO LUNGS TWICE A DAY, # 12 Gm, 2 Refills, Maintenance, 11/13/20 14:34:00 EDT, [facility], 167, cm, 10/26/19 9:29:00 EDT, Height, 85.8, kg, 04/27/19 11:30:00 EST, Dry Weight Start Date: 11/13/20 Status: Ordered Freestyle Lancets See Instructions, # 600 each, Refills 2, Tot. Refills 2, Maintenance, USE TO CHECK GLUCOSE BID DX E11.9, 03/31/19 11:21:00 EST, Compound, 168, cm, 03/28/19 12:20:00 EST, Height Start Date: 03/31/19 Stop Date: 12/26/19 Status: Ordered Freestyle Lite Test Strips See Instructions, # 600 each, Refills 5, Tot. Refills 5, Maintenance, use to test blood sugars 4 times daily Dx: E11.9, 07/16/20 13:18:00 EDT, Compound, 167, cm, 10/26/19 9:29:00 EDT, Height, 85.8, kg, 04/27/19 11:30:00 EST, Dry Weight Start Date: 07/16/20 Stop Date: 01/07/22 Status: Ordered gabapentin 100 mg oral capsule 1, capsule, By Mouth, Daily, # 30 Unknown, Refills 5, Tot. Refills 5, Maintenance, 09/07/20 14:43:00 EDT, Route to Pharmacy Electronically, [facility], 167, cm, 10/26/19 9:29:00 EDT,Height, 85.8, kg, 04/27/19 11:30:00 EST, Dry Weight Start Date: 09/07/20 Status: Ordered Januvia 100 mg oral tablet See Instructions, TAKE ONE TABLET BY MOUTH EVERY DAY, # 90 tablet, 0 Refills, [facility], 167, cm, 10/26/19 9:29:00 EDT, Height, 85.8, kg, 04/27/19 11:30:00 EST, Dry Weight Start Date: 11/13/20 Status: Ordered Lantus Solostar Pen 100 units/mL subcutaneous solution See Instructions, INJECT 15 UNITS SUBCUTANEOUSLY DAILY AT BEDTIME, # 15 mL, 0 Refills, [facility], 167, cm, 10/26/19 9:29:00 EDT, Height, 85.8, kg, 04/27/19 11:30:00 EST, Dry Weight Start Date: 11/13/20 Status: Ordered LORazepam 1 mg oral tablet 1 tablet = 1 mg, By Mouth, 3 times a day, PRN as needed for anxiety, # 90 tablet, 0 Refills, Maintenance, 12/11/20 14:52:00 EDT, Tablet, [facility], 167, cm, 10/26/19 9:29:00 EDT, Height, 85.8, kg, 04/27/19 11:30:00 EST, Dry Weight Start Date: 12/11/20 Stop Date: 01/10/21 Status: Ordered metFORMIN 1000 mg oral tablet 1 tablet = 1,000 mg, By Mouth, 2 times a day, # 180 tablet, 1 Refills, Maintenance, 07/16/20 13:17:00 EDT, Tablet, [facility], 167, cm, 10/26/19 9:29:00 EDT, Height, 85.8, kg, 04/27/19 11:30:00 EST, Dry Weight Start Date: 07/16/20 Status: Ordered MiraLax oral powder for reconstitution = 17 Gm, By Mouth, 2 times a day, dissolve in water before taking, # 3,060 Gm, 1 Refills, Maintenance, 10/30/20 8:03:00 EDT, REC Powder, [facility], 17 Gm By Mouth 2 times a day,x90 days,Instr:dissolve in water before taking, 167, cm, ... Start Date: 10/30/20 Stop Date: 04/28/21 Status: Ordered omeprazole 20 mg oral enteric coated capsule 1 capsule = 20 mg, By Mouth, Daily, # 90 capsule, 0 Refills, Maintenance, 10/10/20 10:43:00 EDT, ECCapsule, [facility], 167, cm, 10/26/19 9:29:00 EDT, Height, 85.8, kg, 04/27/19 11:30:00 EST, Dry Weight Start Date: 10/10/20 Stop Date: 01/08/21 Status: Ordered PARoxetine 30 mg oral tablet See Instructions, TAKE ONE TABLET BY MOUTH TWICE A DAY, # 180 tablet, 0 Refills, [facility], 167, cm, 10/26/19 9:29:00 EDT, Height, 85.8, kg, 04/27/19 11:30:00 EST, Dry Weight Start Date: 11/13/20 Status: Ordered Pen [place], 31 G x 8 mm BD Ultra Fine III See Instructions, # 100 each, Refills 5, Tot. Refills 5, Maintenance, Use daily with insulin Dx: Type 2 Diabetes Mellitus, 08/07/20 14:26:00 EDT, Supply, 167, cm, 10/26/19 9:29:00 EDT, Height, 85.8, kg, 04/27/19 11:30:00 EST, Dry Weight Start Date: 08/07/20 Stop Date: 02/03/21 Status: Ordered QUEtiapine 150 mg oral tablet, extended release See Instructions, TAKE ONE TABLET BY MOUTH EVERY DAY, # 30 tablet, Refills 1, Instructions Replace Required Details, Route to Pharmacy Electronically, [facility], 167, cm, 10/26/19 9:29:00 EDT, Height, 85.8, kg, 04/27/19 11:30:00 EST, Dry... Start Date: 11/13/20 Status: Ordered rosuvastatin 10 mg oral tablet 1 tablet = 10 mg, By Mouth, Daily, # 90 tablet, 1 Refills, Maintenance, 07/31/20 12:53:00 EDT, Tablet, [facility], 167, cm, 10/26/19 9:29:00 EDT, Height, 85.8, kg, 04/27/19 11:30:00 EST, Dry Weight Start Date: 07/31/20 Stop Date: 01/27/21 Status: Ordered Ventolin HFA 108 mcg/inh inhalation [...]
--- OUTSIDE RECORDS SUMMARY | 2023-06-25 02:48 | XMS_ITS | Continuity of Care Document ---
Author Organization [facility] Adult Address [address] [place] [address]- Care Team Providers Care Drawing Tender Name Role Phone Shivani IBARRA, [facility] Primary Care Physician Encounter [facility] [place] Date(s): 09/06/20 - 10/06/20 [facility] [address] [place] [address]- Allergies, Adverse Reactions, Alerts Substance Reaction Severity [...] 13-valent vaccine 5 09/14/16 Recorded 1Result Comment: [facility] [id number] 2Result Comment: [facility] [phone] 3Result Comment: [facility] [id number] [phone] 4[facility]: [facility] Medications aspirin 81 mg oral delayed release tablet 81 mg, 1, tablet, By Mouth, Daily, # 90 tablet, Refills 1, Tot. Refills 1, Maintenance, 10/04/20 10:12:00 EDT, Route to Pharmacy Electronically, [facility], 167, cm, 10/26/19 9:29:00EDT, Height, 85.8, kg, 04/27/19 11:30:00 EST, Dry Weight Start Date: 10/04/20 Stop Date: 04/02/21 Status: Ordered Flovent HFA 110 mcg/inh inhalation aerosol 2 puffs, Inhalation, 2 times a day, # 12 Gm, 0 Refills, Maintenance, 10/05/20 14:22:00 EDT, [facility], 167, cm, 10/26/19 9:29:00 EDT, Height, 85.8, kg, 04/27/19 11:30:00 EST, Dry Weight Start Date: 10/05/20 Status: Ordered Freestyle Lancets See Instructions, # [...] Status: Ordered Januvia 100 mg oral tablet 1 tablet = 100 mg, By Mouth, Daily, # 90 tablet, 0 Refills, Soft Stop, 09/12/20 12:46:00 EDT, [facility], 167, cm, 10/26/19 9:29:00 EDT, Height, 85.8, kg, 04/27/19 11:30:00 EST, Dry Weight Start Date: 09/12/20 Stop Date: 12/11/20 Status: Ordered Lantus Solostar Pen 100 units/mL subcutaneous solution = 15 units, Subcutaneous Injection, Daily at bedtime, # 15 mL, 5 Refills, Maintenance, 09/26/19 16:55:00 EDT, Solution, [facility], 167, cm, 04/29/19 6:24:00 EST, Height, 85.8, kg, 04/27/19 11:30:00 EST, Dry Weight Start Date: 09/26/19 Stop Date: 03/24/20 Status: Ordered LORazepam 1 mg oral tablet 1 tablet = 1 mg, By Mouth, 3 times a day, PRN as needed for anxiety, # 90 tablet, 0 Refills, Maintenance, 10/05/20 17:23:00 EDT, Tablet, [facility], 167, cm, 10/26/19 9:29:00 EDT, Height, 85.8, kg, 04/27/19 11:30:00 EST, Dry Weight Start Date: 10/05/20 Stop Date: 11/04/20 Status: Ordered metFORMIN 1000 mg oral tablet [...] days, dissolve in water before taking, # 3,060 Gm, 1 Refills, Hard Stop 10/30/20 8:03:00 EDT, 05/03/20 8:03:00 EST, REC Powder, [facility], 167, cm, 10/26/19 9:29:00 EDT, Height, 85.8, kg, 04/27/19... Start Date: 05/03/20 Stop Date: 10/30/20 Status: Ordered MiraLax oral powder for reconstitution [...] 0 Refills, Maintenance, 10/10/20 10:43:00 EDT, ECCapsule, [facility], 167, cm, 10/26/19 9:29:00 EDT, Height, 85.8, kg, 04/27/19 11:30:00 EST, Dry Weight Start Date: 10/10/20 Stop Date: 01/08/21 Status: Ordered omeprazole 20 mg oral enteric coated capsule 1 capsule = 20 mg, By Mouth, Daily, for 90 days, # 90 capsule, 0 Refills, Hard Stop 10/10/20 10:43:00 EDT, 07/12/20 10:43:00 EDT, EC Capsule, [facility], 167, cm, 10/26/19 9:29:00 EDT, Height, 85.8, kg, 04/27/19 11:30:00 EST, Dry Weight Start Date: 07/12/20 Stop Date: 10/10/20 Status: Ordered Paxil 30 mg oral tablet 1 tablet = 30 mg, By Mouth, 2 times a day, # 180 tablet, 1 Refills, Maintenance, 05/03/20 8:03:00 EST, Tablet, [facility], 167, cm, 10/26/19 9:29:00 EDT, Height, 85.8, kg, 04/27/19 11:30:00 EST, Dry Weight Start Date: 05/03/20 Stop Date: 10/30/20 Status: Ordered Pen [place], 31 G x 8 mm BD Ultra [...] extended release 1, tablet, By Mouth, Daily, # 30 tablet, Refills 1, Tot. Refills 0, Maintenance, 09/06/20 10:59:00 EDT, Route to Pharmacy Electronically, [email or web address], 167, cm, 10/26/19 9:29:00 EDT, Height, 85.8, kg, 04/27/19 11:30:00 EST, Dry Weight Start Date: 09/06/20 Status: Ordered rosuvastatin 10 mg oral tablet 1 tablet = 10 mg, By Mouth, Daily, # 90 tablet, 1 Refills, Maintenance, 07/31/20 12:53:00 EDT, Tablet, [email or web address], 167, cm, 10/26/19 9:29:00 EDT, [...]
--- OUTSIDE RECORDS SUMMARY | 2023-06-25 02:48 | XMS_ITS | Continuity of Care Document ---
Author Organization [facility] Adult Address [address] [place] [address]- Care Team Providers Care Java Sql Developer Name Role Phone Shivani IBARRA, [facility] Primary Care Physician [place] [facility] [place]05[place] - 10/05/21 [facility] [address] [place] [phone]- Allergies, Adverse Reactions, Alerts Substance Reaction Severity [...] vaccine 5 09/14/16 Recorded 1Result Comment: [facility] [id number] 2Result Comment: [facility] [phone] 3Result Comment: [facility] [id number] [phone] 4Admin Note[facility]Location History: [facility] Medications Advair HFA 115 mcg / 21 mcg 2 puffs, Inhalation, 2 times a day, # 12 Gm, 5 Refills, Maintenance, 08/29/21 12:33:00 EDT, Aerosol, [facility], Partial fill upon patient request if the prescription is for a schedule II opioid drug., 2 puffs Inhalation 2 times a day,x30... Start Date: 08/29/21 Stop Date: 02/25/22 Status: Ordered Aspirin Enteric Coated 81 mg oral delayed release tablet See Instructions, TAKE ONE TABLET BY MOUTH EVERY DAY, # 90 tablet, 3 Refills, 03/22/21 10:20:00 EST, [facility], 167, cm, 03/22/21 9:18:00 EST, Height, 85.8, kg, 04/27/19 11:30:00 EST, Dry Weight Start Date: 03/22/21 Status: Ordered Freestyle Lancets See Instructions, # [...] capsule 300 mg, 1, capsule, By Mouth, 2 times a day, # 60 capsule, Refills 5, Tot. Refills 5, Maintenance, 09/18/21 10:17:00 EDT, Route to Pharmacy Electronically, [facility], Partial fill upon patient request if the prescription is for a schedul... Start Date: 09/18/21 Stop Date: 03/17/22 Status: Ordered Januvia 100 mg oral tablet [...] anxiety, # 90 tablet, 0 Refills, Maintenance, 08/29/21 16:04:00 EDT, Tablet, [facility], 167, cm, 08/29/21 9:11:00 EDT, Height Start Date: 08/29/21 Stop Date: 09/28/21 Status: Ordered metFORMIN 1000 mg oral tablet 1 tablet = 1,000 mg, By Mouth, 2 times a day, # 60 tablet, 5 Refills, Maintenance, 08/29/21 12:34:00 EDT, Tablet, [facility], 167, cm, 08/29/21 9:11:00 EDT, Height Start Date: 08/29/21 Stop Date: 02/25/22 Status: Ordered MiraLax oral powder for reconstitution [...] Weight Start Date: 03/22/21 Status: Ordered Pen [place], 31 G x 8 mm BD Ultra Fine III See Instructions, # 100 each, Refills 3, Tot. 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, 07/30/21 11:22:00 EDT, Supply, 167, cm, 04/19/21 11:50:00 EST, Height Start Date: 07/30/21 Stop Date: 11/27/21 Status: Ordered QUEtiapine 150 mg oral tablet, extended release 1, tablet, By Mouth, Daily, for 90 days, # 90 tablet, Refills 3, Tot. Refills 3, Physician Stop 03/17/22 10:20:00 EST, 03/22/21 10:20:00 EST, Route to Pharmacy Electronically, [facility], 167, cm, 03/22/21 9:18:00 EST, Height, 85.8, kg, 0... Start Date: 03/22/21 Stop Date: 03/17/22 Status: Ordered rosuvastatin 10 mg oral tablet 1 tablet = 10 mg, By Mouth, Daily, # 90 tablet, 3 Refills, Maintenance, 04/27/21 12:53:00 EST, Tablet, [facility], 167, cm, 03/22/21 9:18:00 EST, Height, 85.8, kg, 04/27/19 11:30:00 EST, Dry Weight Start Date: 04/27/21 Status: Ordered Ventolin HFA 108 mcg/inh inhalation aerosol with adapter 2 puffs, Inhalation, 4 times a day, PRN for wheezing, # 18 Gm, 5 Refills, Maintenance, 09/17/21 7:00:00 EDT, Aerosol, [facility], 167, cm, 08/29/21 9:11:00 EDT, Height Start Date: 09/17/21 Status: Ordered Problem List Condition Effective Dates [...]
--- OUTSIDE RECORDS SUMMARY | 2023-06-25 02:48 | XMS_ITS | Continuity of Care Document ---
Author Organization [facility] Adult Address [address] [place] [address]- Care Team Providers Care Histopath Tech Name Role Phone Shivani IBARRA, [facility] Primary Care Physician ( [phone] [place] [facility] [place] 11[place]26[place]19 [facility] [address] [place] [phone]- [facility] Allergies, Adverse Reactions, Alerts Substance Reaction Severity [...] 13-valent vaccine 5 09/14/16 Recorded 1Result Comment: [facility] [id number] 2Result Comment: [facility] [id number] 3Result Comment: [facility] [id number] [phone] 4Admin [facility]: [facility] Medications aspirin 81 mg oral delayed release tablet 81 mg, 1, tablet, By Mouth, Daily, # 90 tablet, Refills 2, Tot. Refills 2, Maintenance, 07/12/19 10:12:05 EDT, Route to Pharmacy Electronically, [id number], [facility] Start Date: 07/12/19 Stop Date: 04/07/20 Status: Ordered Flovent HFA 110 mcg/inh inhalation aerosol 2 puffs, Inhalation, 2 times a day, # 12 Gm, 5 Refills, Maintenance, 07/07/19 11:35:00 EDT, Aerosol, [facility], 167, cm, 04/29/19 6:24:00 EST, Height, 85.8, kg, 04/27/19 11:30:00 EST, Dry Weight Start Date: 07/07/19 Status: Ordered Freestyle Lancets See Instructions, # [...] blood sugars 4 times daily Dx: E11.9, 08/11/19 8:16:00 EDT, Compound, 167, cm, 04/29/19 6:24:00 EST, Height, 85.8, kg, 04/27/19 11:30:00 EST, Dry Weight Start Date: 08/11/19 Stop Date: 02/01/21 Status: Ordered gabapentin 100 mg oral capsule 100 mg, 1, capsule, By Mouth, Daily, # 30 capsule, Refills 5, Tot. Refills 5, Maintenance, :10:00 EDT, Route to Pharmacy Electronically, [facility], 167, cm, 10/26/19 9:29:00 EDT, Height, 85.8, kg, 04/27/19 11:30:00 EST, Dry Weight Start Date: 11/06/19 Stop Date: 05/04/20 Status: Ordered Januvia 100 mg oral tablet 1 tablet = 100 mg, By Mouth, Daily, # 90 tablet, 1 Refills, Soft Stop, 06/16/19 11:11:00 EDT, [facility], 167, cm, 04/29/19 6:24:00 EST, Height, 85.8, kg, 04/27/19 11:30:00 EST, Dry Weight Start Date: 06/16/19 Stop Date: 12/13/19 Status: Ordered Lantus Solostar Pen 100 units/mL [...] a day, PRN as needed for anxiety, SYSTEMS INTEGRATION ADVISOR CHECKED, # 90 tablet, 0 Refills, Maintenance, 11/08/19 13:00:00 EDT, Tablet, [facility], 167, cm, 10/26/19 9:29:00 EDT, Height, 85.8, kg, 04/27/19 11:30:00 EST, Dry... Start Date: 11/08/19 Stop Date: 12/08/19 Status: Ordered metFORMIN 1000 mg oral tablet 1 tablet = 1,000 mg, By Mouth, 2 times a day, # 180 tablet, 0 Refills, Maintenance, 09/06/19 14:23:00 EDT, Tablet, [facility], 167, cm, 04/29/19 6:24:00 EST, Height, 85.8, kg, 04/27/19 11:30:00 EST, Dry Weight Start Date: 09/06/19 Status: Ordered MiraLax oral powder for reconstitution = 17 Gm, By Mouth, 2 times a day, dissolve in water before taking, # 3,060 Gm, 1 Refills, Maintenance, 08/08/19 9:51:00 EDT, REC Powder, [facility], 17 Gm By Mouth 2 times a day,x90 days,Instr:dissolve in water before taking, 167, cm, 02/... Start Date: 08/08/19 Stop Date: 02/04/20 Status: Ordered omeprazole 20 mg oral enteric coated capsule 1 capsule = 20 mg, By Mouth, Daily, # 90 capsule, 0 Refills, Maintenance, 10/27/19 13:03:00 EDT, ECCapsule, [facility], Rx resent from 09/20/19., 167, cm, 10/26/19 9:29:00 EDT, Height, 85.8, kg, 04/27/19 11:30:00 EST, Dry Weight Start Date: 10/27/19 Stop Date: 01/25/20 Status: Ordered Paxil 30 mg oral tablet 1 tablet = 30 mg, By Mouth, 2 times a day, # 180 tablet, 1 Refills, Maintenance, 11/04/19 12:38:00 EDT, Tablet, [facility], 167, cm, 10/26/19 9:29:00 EDT, Height, 85.8, kg, 04/27/19 11:30:00 EST, Dry Weight Start Date: 11/04/19 Stop Date: 05/02/20 Status: Ordered Pen [place], 30 G x 8 mm BD Ultra Fine II See Instructions, # 100 each, Refills 5, Tot. Refills 5, Maintenance, use as directed for Type 1 Diabetes Mellitus, 03/25/19 15:43:00 EST, Compound, 168, cm, 03/23/19 9:12:00 EST, Height Start Date: 03/25/19 Stop Date: 09/21/19 Status: Ordered QUEtiapine 150 mg oral tablet, extended release 1, tablet, By Mouth, Daily, # 30 tablet, Refills 1, Tot. Refills 1, Maintenance, 10/03/19 14:47:00 EDT, Route to Pharmacy Electronically, [facility], 167, cm, 04/29/19 6:24:00 EST, Height, 85.8, kg, 04/27/19 11:30:00 EST, Dry Weight Start Date: 10/03/19 Status: Ordered rosuvastatin 10 mg oral tablet 1 tablet = 10 mg, By Mouth, Daily, # 30 tablet, 11 Refills, Maintenance, 03/23/19 9:46:00 EST, Tablet, [facility], 168, cm, 03/23/19 9:12:00 EST, Height Start Date: 03/23/19 Status: Ordered Ventolin HFA 108 mcg/inh inhalation [...]
--- OUTSIDE RECORDS SUMMARY | 2023-06-25 02:48 | XMS_ITS | Continuity of Care Document ---
Author Organization [facility] Address [address] [place] [phone]- Care Team Providers Care Poultry Farm Supervisor Name Role Phone Yoel Parrish MD Primary Care Physician [place] [facility] [place] 09/03/21 - 10/09/[address] [address]- Attending Physician: Yoel Parrish MD Admitting Physician: [...] 5 09/14/16 Recorded 1Result Comment: [facility] [id number] 2Result Comment: [facility] [id number] 3Result Comment: [facility] [id number] [phone] 4Admin Note: [facility] [...] EDT, Route to Pharmacy Electronically, [facility], Partial fill upon patient request [...] Weight Start Date: 03/22/21 Status: Ordered Pen [place], 31 G x 8 mm BD Ultra [...] 03/22/21 10:20:00 EST, Route to Pharmacy Electronically, [facility], 167, cm, 03/22/21 9:18:00 EST, Height, 85.8, kg, 0... Start Date: 03/22/21 Stop Date: 03/17/22 Status: Ordered rosuvastatin 10 mg oral tablet 1 tablet = 10 mg, By Mouth, Daily, # 90 tablet, 3 Refills, Maintenance, 04/27/21 12:53:00 EST, Tablet, [facility], 167, cm, 03/22/21 9:18:00 EST, Height, 85.8, kg, 04/27/19 11:30:00 EST, Dry Weight Start Date: 04/27/21 Status: Ordered Ventolin HFA 108 mcg/inh inhalation aerosol with adapter 2 puffs, Inhalation, 4 times a day, PRN for wheezing, # 18 Gm, 5 Refills, Maintenance, 09/17/21 7:00:00 EDT, Aerosol, [facility], 167, cm, 08/29/21 9:11:00 EDT, [...]
--- OUTSIDE RECORDS SUMMARY | 2023-06-25 02:48 | XMS_ITS | Continuity of Care Document ---
Author Organization [facility] Address [address] [place] [address]- Care Team Providers Care Screw Machine Set Up Operator Tool Name Role Phone Shivani IBARRA, [facility] Primary Care Physician [place] [facility] [place](s): 08/29/21 - 09/28/21 [facility] [address] [place] [phone]- Allergies, Adverse Reactions, Alerts Substance Reaction Severity [...] influenza virus vaccine, inactivated 2 11/18/18 Gi ancelom influenza virus vaccine, inactivated 12/21/17 Jose rded influenza virus vaccine, inactivated 3 01/05/17 Gi ancelmo Zoster Vaccine Live 03/23/19 Recorded zoster vaccine, inactivated 01/25/19 Recorded zoster vaccine, inactivated 11/18/18 Recorded pneumococcal 23-valent vaccine 12/21/17 Recorded pneumococcal 23-valent vaccine 4 11/05/16 Given tetanus/diphtheria/pertussis, acel(Tdap) 01/05/17 Given pneumococcal 13-valent vaccine 5 09/14/16 Recorded 1Result Comment: [facility] [id number] 2Result Comment: [facility] [id number] 3Result Comment: [facility] [id number] [phone] 4Admin Note: [facility] [...] Weight Start Date: 03/22/21 Status: Ordered Pen [place], 31 G x 8 mm BD Ultra [...] 03/22/21 10:20:00 EST, Route to Pharmacy Electronically, [facility], 167, cm, 03/22/21 9:18:00 EST, Height, 85.8, kg, 0... Start Date: 03/22/21 Stop Date: 03/17/22 Status: Ordered rosuvastatin 10 mg oral tablet 1 tablet = 10 mg, By Mouth, Daily, # 90 tablet, 3 Refills, Maintenance, 04/27/21 12:53:00 EST, Tablet, [facility], 167, cm, 03/22/21 9:18:00 EST, Height, 85.8, kg, 04/27/19 11:30:00 EST, Dry Weight Start Date: 04/27/21 Status: Ordered Ventolin HFA 108 mcg/inh inhalation aerosol with adapter 2 puffs, Inhalation, 4 times a day, PRN for wheezing, # 18 Gm, 5 Refills, Maintenance, 09/17/21 7:00:00 EDT, Aerosol, [facility], 167, cm, 08/29/21 9:11:00 EDT, [...]
--- OUTSIDE RECORDS SUMMARY | 2023-06-25 02:48 | XMS_ITS | Continuity of Care Document ---
Author Organization [facility] Address [address] [place] [address]- Care Team Providers Care Or Assistant Name Role Phone Shivani IBARRA, [facility] Primary Care Physician [facility] Date(s): 01/15/23 - 02/14/23 [facility] [address] [place] [address]- Allergies, Adverse Reactions, Alerts Substance Reaction Severity [...] 13-valent vaccine 5 09/14/16 Recorded 1Result Comment: [facility] [id number] 2Result Comment: [facility] [phone] 3Result Comment: [facility] [phone] [facility] Medications Advair HFA 115 mcg / 21 mcg 2 puffs, Inhalation, 2 times a day, # 12 Gm, 5 Refills, Maintenance, 01/06/23 8:59:00 EST, [facility], 30, INHALE 2 PUFFS BY MOUTH TWO TIMES A DAY., 167, cm, 08/29/21 9:11:00 EDT, Height Start Date: 01/06/23 Status: Ordered Aspirin Enteric Coated 81 mg oral delayed release tablet See Instructions, TAKE ONE TABLET BY MOUTH EVERY DAY, # 90 tablet, 3 Refills, 07/18/22 10:09:00 EDT, [facility], 167, cm, 08/29/21 9:11:00 EDT, Height Start Date: 07/18/22 Status: Ordered BD PEN NEEDLE SHORT 31G X 8 MM MISC BD PEN NEEDLE SHORT 31G X 8 MM MISC, See Instructions, # 100 each, 3 Refills, Maintenance, USE TO INJECT INSULIN ONCE DAILY, 10/06/22 13:52:00 EDT, 167, cm, 08/29/21 9:11:00 EDT, Height Start Date: 10/06/22 Status: Ordered Freestyle Lancets See Instructions, # 600 each, Refills 2, Tot. Refills 2, Maintenance, USE TO CHECK GLUCOSE BID DX E11.9, 03/31/19 11:21:00 EST, Compound, 168, cm, 03/28/19 12:20:00 EST, Height Start Date: 03/31/19 Stop Date: 12/26/19 Status: Ordered Freestyle Lite Lancets See Instructions, # 200 each, Refills 5, Tot. Refills 5, Maintenance, use as directed for Type 2 Diabetes Mellitus, 01/21/22 17:12:00 EST, Supply, 167, cm, 08/29/21 9:11:00 EDT, Height Start Date: 01/21/22 Stop Date: 07/20/22 Status: Ordered Freestyle Lite Monitor See Instructions, # 1 each, Maintenance, Type 2 Diabetes Mellitus, 01/21/22 17:12:00 EST, Supply, 167, cm, 08/29/21 9:11:00 EDT, Height Start Date: 01/21/22 Status: Ordered FREESTYLE LITE TEST STRP FREESTYLE LITE TEST STRP, See Instructions, # 600 Unknown, 11 Refills, Maintenance, USE TO TEST BLOOD SUGARS 4 TIMES A DAY, 07/10/22 10:23:00 EDT, 167, cm, 08/29/21 9:11:00 EDT, Height Start Date: 07/10/22 Status: Ordered FREESTYLE LITE TEST STRP FREESTYLE LITE TEST STRP, See Instructions, # 600 Unknown, 4 Refills, TEST BLOOD SUGARS 4 TIMES DAILY, 167, cm, 03/22/21 9:18:00 EST, Height, 85.8, kg, 04/27/19 11:30:00 EST, Dry Weight Start Date: 03/22/21 Status: Ordered FREESTYLE LITE TEST STRP FREESTYLE LITE TEST STRP, See Instructions, # 600 Unknown, 2 Refills, Maintenance, USE TO TEST BLOOD SUGARS 4 TIMES A DAY, 05/14/22 16:36:00 EDT, 167, cm, 08/29/21 9:11:00 EDT, Height Start Date: 05/14/22 Status: Ordered Freestyle Lite Test Strips See [...] Refills 5, Tot. Refills 5, Hard Stop 12/01/23 15:50:00 EDT, use to test blood sugars 4 times daily Dx: E11.9, 06/09/22 15:50:00 EDT, Compound, 167, cm, 08/29/21 9:11:00 EDT, Height Start Date: 06/09/22 Stop Date: 12/01/23 Status: Ordered gabapentin 300 mg oral capsule 1, capsule, By Mouth, 2 times a day, # 60 capsule, Refills 5, Maintenance, 10/06/22 14:03:00 EDT, Route to Pharmacy Electronically, [facility], 167, cm, 08/29/21 9:11:00 EDT, Height Start Date: 10/06/22 Status: Ordered Januvia 100 mg oral tablet 1 tablet, By Mouth, Daily, # 90 tablet, 3 Refills, Maintenance, 03/28/22 7:37:00 EST, [facility], 167, cm, 08/29/21 9:11:00 EDT, Height Start Date: 03/28/22 Status: Ordered Lantus Solostar Pen 100 units/mL subcutaneous solution See Instructions, INJECT SUBCUTANEOUSLY 15 UNITS DAILY AT BEDTIME., # 15 mL, 3 Refills, Maintenance, 04/24/22 10:40:00 EST, [facility], 167, cm, 08/29/21 9:11:00 EDT, Height Start Date: 04/24/22 Status: Ordered LORazepam 1 mg oral tablet 1 tablet = 1 mg, By Mouth, 3 times a day, PRN as needed for anxiety, # 90 tablet, 0 Refills, Maintenance, 01/02/23 16:32:00 EDT, Tablet, [facility], 167, cm, 08/29/21 9:11:00 EDT, Height Start Date: 01/02/23 Stop Date: 02/01/23 Status: Ordered metFORMIN 1000 mg oral tablet 1 tablet = 1,000 mg, By Mouth, 2 times a day, # 60 tablet, 5 Refills, Maintenance, 07/18/22 10:11:00 EDT, Tablet, [facility], 167, cm, 08/29/21 9:11:00 EDT, Height Start Date: 07/18/22 Stop Date: 01/14/23 Status: Ordered MiraLax oral powder for reconstitution = 17 Gm, By Mouth, 2 times a day, for 90 days, dissolve in water before taking, # 527 Gm, 3 Refills, Hard Stop 07/13/23 10:12:00 EDT, 07/18/22 10:12:00 EDT, REC Powder, [facility], 17 Gm By Mouth 2 times a day,x90 days,Instr:dissolve in w... Start Date: 07/18/22 Stop Date: 07/13/23 Status: Ordered omeprazole 20 mg oral enteric coated capsule 1 capsule, By Mouth, Daily, # 90 capsule, 1 Refills, Maintenance, 12/15/22 7:36:00 EDT, [facility], 167, cm, 08/29/21 9:11:00 EDT, Height Start Date: 12/15/22 Status: Ordered PARoxetine 30 mg oral tablet 1 tablet, By Mouth, 2 times a day, # 180 tablet, 1 Refills, Maintenance, 09/10/22 15:03:00 EDT, [facility], 167, cm, 08/29/21 9:11:00 EDT, Height Start Date: 09/10/22 Status: Ordered Pen [place], 31 G x 8 mm BD Ultra Fine III See Instructions, # 100 each, Refills 3, Tot. 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, 07/30/21 11:22:00 EDT, Supply, 167, cm, 04/19/21 11:50:00 EST, Height Start Date: 07/30/21 Stop Date: 11/27/21 Status: Ordered QUEtiapine 150 mg oral tablet, extended release 1, tablet, By Mouth, Daily, # 90 tablet, Refills 3, Maintenance, 05/20/22 14:37:00 EDT, Route to Pharmacy Electronically, [facility], 167, cm, 08/29/21 9:11:00 EDT, Height Start Date: 05/20/22 Status: Ordered rosuvastatin 10 mg oral tablet 1 tablet, By Mouth, Daily, # 90 tablet, 1 Refills, Maintenance, 09/05/22 15:49:00 EDT, [facility], 167, cm, 08/29/21 9:11:00 EDT, Height Start Date: 09/05/22 Status: Ordered Ventolin HFA 108 mcg/inh inhalation aerosol with adapter 2 puffs, Inhalation, 4 times a day, PRN NEEDED FOR WHEEZING, # 18 Gm, 5 Refills, Maintenance, 12/08/22 9:36:00 EDT, [facility], 167, cm, 08/29/21 9:11:00 EDT, Height Start Date: 12/08/22 Status: Ordered Problem List Condition Confirmation Course Effective Dates Status H ealth Status Informant Asthma Confirmed Active CKD (chronic kidney disease) Confirmed Active Cigarette smoker Confirmed Active DM (diabetes mellitus) Confirmed Active H. pylori infection Confirmed Active Hyperlipidemia Confirmed Active Anxiety and depression Confirmed Active Hepatic steatosis Confirmed Active Gastric regurgitation Confirmed Active Social History Social History Type Response Smoking Status Former smoker; Tobac co user in household: No entered on: 08/07/16 Sex Patient Care team information Care Team Personnel Name: Yoel Parrish MD Position: [facility] Physician - Primary Care Member Role: PCP Address: Address: [address] [place] [address] [address] [place] [address]- Care Team Related Persons Name: CHAGO MEDRANO Address: home [address] [place] [address] Name: SUNIL TEMPLETON Address: home [address] [place] [address], [address] [address]
--- OUTSIDE RECORDS SUMMARY | 2023-06-25 02:48 | XMS_ITS | Continuity of Care Document ---
Author Organization [facility] Address [address] [place] [address]- Care Team Providers Care Dry Cure Worker Name Role Phone Shivani IBARRA, [facility] Primary Care Physician [facility] Date(s): 03/24/23 - 04/23/23 [facility] [address] [place] [id number] Allergies, Adverse Reactions, Alerts Substance Reaction Severity Status glipiZIDE facial swelling,rash Active Tylox Chest pain not present Activ e Immunizations Given and Recorded Vaccine Date Status Refusal Reason influenza virus vaccine, inactivated 02/06/22 Jose rded influenza virus vaccine, inactivated 11/18/19 Jose rded influenza virus vaccine, inactivated 1 11/19/18 Gi ancelmo influenza virus vaccine, inactivated 2 11/18/18 Gi acnelmo influenza virus vaccine, inactivated 12/21/17 Jose rded influenza virus vaccine, inactivated 3 01/05/17 Gi ancelmo influenza virus vaccine, inactivated 12/14/12 Jose rded influenza virus vaccine, inactivated 11/26/11 Jose rded SARS-CoV-2 (COVID-19) mRNA BNT-162b2 vac 03/12/21 Recorded SARS-CoV-2 (COVID-19) mRNA BNT-162b2 vac 06/11/20 Recorded SARS-CoV-2 (COVID-19) mRNA BNT-162b2 vac 05/21/20 Recorded Zoster Vaccine Live 03/23/19 Recorded zoster vaccine, inactivated 01/25/19 Recorded zoster vaccine, inactivated 11/18/18 Recorded pneumococcal 23-valent vaccine 12/21/17 Recorded pneumococcal 23-valent vaccine 4 11/05/16 Given pneumococcal 23-valent vaccine 09/19/14 Recorded tetanus/diphtheria/pertussis, acel(Tdap) 01/05/17 Given tetanus/diphtheria/pertussis, acel(Tdap) 09/19/14 Recorded pneumococcal 13-valent vaccine 5 09/14/16 Recorded 1Result Comment: [facility] [id number] 2Result Comment: [facility] [id number] 3Result Comment: [facility] [id number] [phone] 4Admin [facility]: [facility] [...] times a day, # 60 capsule, Refills 0, Tot. Refills 0, Maintenance, 03/24/2415:53:00 EST, Route to Pharmacy Electronically, [facility], 167, cm, 08/29/21 9:11:00 EDT, Height Start Date: 03/24/23 Status: Ordered Januvia 100 mg oral tablet 1 tablet, By Mouth, Daily, # 90 tablet, 0 Refills, Maintenance, 03/13/23 9:11:00 EST, [facility], 167, cm, 08/29/21 9:11:00 EDT, Height Start Date: 03/13/23 Status: Ordered Lantus Solostar Pen 100 units/mL subcutaneous solution See Instructions, INJECT SUBCUTANEOUSLY 15 UNITS DAILY AT BEDTIME., # 15 mL, 3 Refills, Maintenance, 03/24/23 16:52:00 EST, [facility], 167, cm, 08/29/21 9:11:00 EDT, Height Start Date: 03/24/23 Status: Ordered Lantus Solostar Pen 100 units/mL subcutaneous solution See Instructions, INJECT SUBCUTANEOUSLY 15 UNITS DAILY AT BEDTIME., # 15 mL, 3 Refills, Maintenance, 04/24/22 10:40:00 EST, [facility], 167, cm, 08/29/21 9:11:00 EDT, Height Start Date: 04/24/22 Status: Ordered LORazepam 1 mg oral tablet 1 tablet = 1 mg, By Mouth, 3 times a day, PRN as needed for anxiety, # 90 tablet, 3 Refills, Maintenance, 03/09/23 14:28:00 EST, Tablet, [facility], 167, cm, 08/29/21 9:11:00 EDT, Height Start Date: 03/09/23 Stop Date: 07/07/23 Status: Ordered metFORMIN 1000 mg oral tablet 1 tablet = 1,000 mg, By Mouth, 2 times a day, # 60 tablet, 5 Refills, Maintenance, 03/25/23 15:53:00 EST, Tablet, [facility], 167, cm, 08/29/21 9:11:00 EDT, Height Start Date: 03/25/23 Stop Date: 09/21/23 Status: Ordered MiraLax oral powder for reconstitution [...] day, # 180 tablet, 1 Refills, Maintenance, 03/24/23 10:11:00 EST, [facility], 167, cm, 08/29/21 9:11:00 EDT, Height Start Date: 03/24/23 Status: Ordered Pen [place], 31 G x 8 mm BD Ultra [...] tablet, Refills 1, Tot. Refills 1, Maintenance, 03/24/23 10:11:00 EST, Route to Pharmacy Electronically, [facility], 167, cm, 08/29/21 9:11:00 EDT, Height Start Date: 03/24/23 Status: Ordered rosuvastatin 10 mg oral tablet 1 tablet, By Mouth, Daily, # 90 tablet, 0 Refills, Maintenance, 03/13/23 9:11:00 EST, [facility], 167, cm, 08/29/21 9:11:00 EDT, Height Start Date: 03/13/23 Status: Ordered Ventolin HFA 108 mcg/inh inhalation [...] Team Personnel Name: Yoel Parrish MD Position: [facility] Physician - Primary Care Member Role: PCP Address: Address: [address] [facility] [address] [place] [address]- Care Team Related Persons Name: CHAGO MEDRANO Address: home [address] [place] [address] Name: SUNIL TEMPLETON Address: home [address] [place] [address], [address] [address]
--- OUTSIDE RECORDS SUMMARY | 2023-06-25 02:48 | XMS_ITS | Continuity of Care Document ---
Author Organization [facility] Address [address] [place] [address]- Care Team Providers Care Aluminum Siding Installer Name Role Phone Shivani IBARRA, Yoel Primary Care Physician ( [phone] [place] [facility] [place] 06/09/19 - 06/19/[address] [address] [facility] Attending Physician: Admcarina, Tarun8 Admitting Physician: AdmtrSamara Referring Physician: Admtr, Ar8 Allergies, Adverse Reactions, Alerts Substance Reaction Severity [...] 13-valent vaccine 5 09/14/16 Recorded 1Result Comment: [facility] [id number] 2Result Comment: [facility] [phone] 3Result Comment: [facility] [phone] 4[facility] History: [facility] Medications aspirin 81 mg oral delayed release tablet 81 mg, 1, tablet, By Mouth, Daily, # 90 tablet, Refills 2, Tot. Refills 2, Maintenance, 07/12/19 10:12:05 EDT, Route to Pharmacy Electronically, [id number], [facility] Start Date: [...] 100 mg, 1, capsule, By Mouth, Daily, administrative associate reviewed 01/26/2019, # 30 capsule, Refills 5, [...] a day, PRN as needed for anxiety, DATA WAREHOUSING MANAGER reviewed 05/09/19, # 90 tablet, 0 Refills, Maintenance, 05/09/19 16:53:00 EDT, Tablet, [facility], 167, cm, 04/29/19 6:24:00 EST, Height, 85.8, kg, 04/27/19 11:30:00... Start Date: 05/09/19 Stop Date: 06/08/19 Status: Ordered metFORMIN 1000 mg oral tablet 1 tablet = 1,000 mg, By Mouth, 2 times a day, # 180 tablet, 0 Refills, Maintenance, 06/07/19 10:04:00 EDT, Tablet, [facility], 167, cm, 04/29/19 6:24:00 EST, Height, 85.8, kg, 04/27/19 11:30:00 EST, Dry Weight Start Date: 06/07/19 Status: Ordered MiraLax oral powder for reconstitution [...] 1 Refills, Maintenance, 03/22/19 10:29:00 EST, Tablet, [facility], 168, cm, 11/18/18 11:57:00 EDT, Height Start Date: 03/22/19 Stop Date: 09/18/19 Status: Ordered Pen [place], 30 G x 8 mm BD Ultra [...] # 30 tablet, Refills 2, Tot. Refills 0, Maintenance, 06/07/19 10:55:00 EDT, Route to Pharmacy Electronically, [facility], 167, cm, 04/29/19 6:24:00 EST, Height, 85.8, kg, 04/27/19 11:30:00 EST, Dry Weight Start Date: 06/07/19 Status: Ordered rosuvastatin 10 mg oral tablet 1 tablet = 10 mg, By Mouth, Daily, # 30 tablet, 11 Refills, Maintenance, 03/23/19 9:46:00 EST, Tablet, [facility], 168, cm, 03/23/19 9:12:00 EST, [...]
--- OUTSIDE RECORDS SUMMARY | 2023-06-25 02:48 | XMS_ITS | Continuity of Care Document ---
Author Organization [facility] Address [address] [place] [address]- Care Team Providers Care Design Engineering Intern Name Role Phone Yoel Parrish MD Primary Care Physician ( [phone] Encounter [facility] Date(s): 03/31/19 - 07/29/[address] [facility] [address] [place] [address] [facility] Attending Physician: Yoel Parrish MD Allergies, Adverse [...] 13-valent vaccine 5 09/14/16 Recorded 1Result Comment: [facility] [id number] 2Result Comment: [facility] [id number] 3Result Comment: [facility] [phone] 4[facility]: [facility] Medications aspirin 81 mg oral delayed release tablet 81 mg, 1, tablet, By Mouth, Daily, # 90 tablet, Refills 2, Tot. Refills 2, Maintenance, 07/12/19 10:12:05 EDT, Route to Pharmacy Electronically, [id number], [facility] Start Date: [...] 100 mg, 1, capsule, By Mouth, Daily, cook enchilada reviewed 01/26/2019, # 30 capsule, Refills 5, [...] a day, PRN as needed for anxiety, BAND SPLITTER reviewed 07/08/19, # 90 tablet, 0 Refills, Maintenance, 07/08/19 10:47:00 EDT, Tablet, [facility], 167, cm, 04/29/19 6:24:00 EST, Height, 85.8, kg, 04/27/19 11:30:00 E... Start Date: 07/08/19 Stop Date: 08/07/19 Status: Ordered metFORMIN 1000 mg oral tablet [...] 1 Refills, Maintenance, 03/22/19 10:29:00 EST, Tablet, [facility], 168, cm, 11/18/18 11:57:00 EDT, Height Start Date: 03/22/19 Stop Date: 09/18/19 Status: Ordered Pen [place], 30 G x 8 mm BD Ultra [...] 06/07/19 10:55:00 EDT, Route to Pharmacy Electronically, [facility], 167, cm, 04/29/19 6:24:00 EST, Height, 85.8, kg, 04/27/19 11:30:00 EST, Dry Weight Start Date: 06/07/19 Status: Ordered rosuvastatin 10 mg oral tablet 1 tablet = 10 mg, By Mouth, Daily, # 30 tablet, 11 Refills, Maintenance, 03/23/19 9:46:00 EST, Tablet, [facility], 168, cm, 03/23/19 9:12:00 EST, [...]
--- OUTSIDE RECORDS SUMMARY | 2023-06-25 02:48 | XMS_ITS | Continuity of Care Document ---
Author Organization [facility] Address [address] [place] [address]- Care Team Providers Care Putty Tinter Maker Name Role Phone Shivani IBARRA, [facility] Primary Care Physician Encounter [facility] Date(s): 08/19/21 - 09/18/21 [facility] [address] [place] [address]- Allergies, Adverse Reactions, Alerts Substance Reaction Severity [...] 13-valent vaccine 5 09/14/16 Recorded 1Result Comment: [facility] [id number] 2Result Comment: [facility] [id number] 3Result Comment: [facility] [id number] [phone] 4Admin Note: [facility] [...] Weight Start Date: 03/22/21 Status: Ordered Pen [place], 31 G x 8 mm BD Ultra [...] 03/22/21 10:20:00 EST, Route to Pharmacy Electronically, [facility], 167, cm, 03/22/21 9:18:00 EST, Height, 85.8, kg, 0... Start Date: 03/22/21 Stop Date: 03/17/22 Status: Ordered rosuvastatin 10 mg oral tablet 1 tablet = 10 mg, By Mouth, Daily, # 90 tablet, 3 Refills, Maintenance, 04/27/21 12:53:00 EST, Tablet, [facility], 167, cm, 03/22/21 9:18:00 EST, Height, 85.8, kg, 04/27/19 11:30:00 EST, Dry Weight Start Date: 04/27/21 Status: Ordered Ventolin HFA 108 mcg/inh inhalation aerosol with adapter 2 puffs, Inhalation, 4 times a day, PRN for wheezing, # 18 Gm, 5 Refills, Maintenance, 09/17/21 7:00:00 EDT, Aerosol, [facility], 167, cm, 08/29/21 9:11:00 EDT, [...]
--- OUTSIDE RECORDS SUMMARY | 2023-06-25 02:48 | XMS_ITS | Continuity of Care Document ---
Author Organization [facility] Address [address] [place] [address]- Care Team Providers Care Lactation Consultant Name Role Phone Shivani IBARRA, [facility] Primary Care Physician [place] [facility] Date[place]s): 04/19/21 - 04/26/21 [facility] [address] [place] [address]- Encounter Diagnosis Anxiety and depression(Discharge Diagnosis) - 04/19/21 Asthma(Discharge Diagnosis) - 04/19/21 CKD (chronic kidney disease)(Discharge Diagnosis) - 04/19/21 DM (diabetes mellitus)(Discharge Diagnosis) - 04/19/21 Gastric regurgitation(Discharge Diagnosis) - 04/19/21 Hyperlipidemia(Discharge Diagnosis) - 04/19/21 Cigarette smoker(Discharge Diagnosis) - 04/19/21 Right hip pain(Discharge Diagnosis) - 04/19/21 Attending Physician: Haleigh BROWN, Lilliam Canales Allergies, Adverse Reactions, Alerts Substance Reaction Severity [...] 13-valent vaccine 5 09/14/16 Recorded 1Result Comment: [facility] [id number] 2Result Comment: [facility] [id number] 3Result Comment: [facility] [id number] [phone] 4Admin Note: [facility] [...] # 3,060 Gm, 1 Refills, Hard Stop 04/28/21 8:03:00 EST, 10/30/20 8:03:00 EDT, REC Powder, [facility], 167, cm, 10/26/19 9:29:00 EDT, Height, 85.8, kg, 04/27/19... Start Date: 10/30/20 Stop Date: 04/28/21 Status: Ordered MiraLax oral powder for reconstitution [...] Weight Start Date: 03/22/21 Status: Ordered Pen [place], 31 G x 8 mm BD Ultra [...] 03/22/21 10:20:00 EST, Route to Pharmacy Electronically, [facility], 167, cm, 03/22/21 9:18:00 EST, Height, 85.8, kg, 0... Start Date: 03/22/21 Stop Date: 03/17/22 Status: Ordered rosuvastatin 10 mg oral tablet 1 tablet = 10 mg, By Mouth, Daily, for 90 days, # 90 tablet, 0 Refills, Hard Stop 04/27/21 12:53:00EST, 01/27/21 12:53:00 EST, Tablet, [facility], 167, cm, 10/26/19 9:29:00 EDT, Height, 85.8, kg, 04/27/19 11:30:00 EST, Dry Weight Start Date: 01/27/21 Stop Date: 04/27/21 Status: Ordered rosuvastatin 10 mg oral tablet 1 tablet = 10 mg, By Mouth, Daily, # 90 tablet, 3 Refills, Maintenance, 04/27/21 12:53:00 EST, Tablet, [facility], 167, cm, 03/22/21 9:18:00 EST, Height, 85.8, kg, 04/27/19 11:30:00 EST, Dry Weight Start Date: 04/27/21 Status: Ordered Ventolin HFA 108 mcg/inh inhalation aerosol with adapter 2 puffs, Inhalation, 4 times a day, PRN for wheezing, # 18 Gm, 3 Refills, Maintenance, 03/22/21 10:21:00 EST, Aerosol, [facility], 167, [...] Diagnosis Diagnosis Type Effective Dates Health Status Clinical Service Informant Anxiety and depression Discharge Diagnosis 04/19/21 Asthma Discharge Diagnosis 04/19/21 CKD (chronic kidney disease) Discharge Diagnosis 04/19/21 DM (diabetes mellitus) Discharge Diagnosis 04/19/21 Gastric regurgitation Discharge Diagnosis 04/19/21 Hyperlipidemia Discharge Diagnosis 04/19/21 Cigarette smoker Discharge Diagnosis 04/19/21 Right hip pain Discharge Diagnosis 04/19/21 Vital Signs Most recent to oldest [Reference Range]: 1 2 Height 167 cm (04/19/21 11:50 AM) 167 cm (04/19/21 11:25 AM) Weight 83.6 kg (04/19/21 11:25 AM) Oxygen Saturation [94-100 %] 98 % (04/19/21 11:25 AM) Pulse Rate [55-90 bpm] 94 bpm *H* (04/19/21 11:25 AM) Body Mass Index [18.5-24.99] 29.98 *H* (04/19/21 11:25 AM) Blood Pressure [90-138/55-84 mm Hg] 124/ 74mm Hg (04/19/21 11:50 AM) 129/76mm Hg (04/19/21 11:25 AM) Temperature [96.8-100.4 DegF] 97.7 DegF (04/19/21 11:25 AM) Mode of Delivery (Oxygen) Room air (04/19/21 11:25 AM) Blood pressure sites Arm, left (04/19/21 11:50 AM) Arm, right (04/19/21 11:25 AM) Temperature Route Temporal (04/19/21 11:25 AM) Weight Obtained Via Standing scale (04/19/21 11:25 AM) Social History Social History Type Response Smoking Status Former smoker; Tobac co user in household: No entered on: 08/07/16 Sex
--- OUTSIDE RECORDS SUMMARY | 2023-06-25 02:48 | XMS_ITS | Continuity of Care Document ---
Author Organization [facility] ter Address [address] [place] [address]- Care Team Providers Care Referral Coordinator Name Role Phone Yoel Parrish MD Primary Care Physician [place] [facility] [place] 04/29/19 - 04/29/[address] [address]- [facility] Discharge Disposition: A-D/C Home Attending Physician: Patrick Joe MD Admitting Physician: Patrick Joe MD Referring Physician: Patrick Joe MD Allergies, Adverse Reactions, Alerts Substance Reaction [...] 13-valent vaccine 5 09/14/16 Recorded 1Result Comment: [facility] [id number] 2Result Comment: [facility] [phone] 3Result Comment: [facility] [id number] [phone] [facility] Medications aspirin 81 mg oral delayed release tablet 81 mg, 1, tablet, By Mouth, Daily, # 90 tablet, Refills 2, Tot. Refills 2, Maintenance, 07/12/19 10:12:05 EDT, Route to Pharmacy Electronically, [id number], [facility] Start Date: [...] 100 mg, 1, capsule, By Mouth, Daily, life consultant reviewed 01/26/2019, # 30 capsule, Refills 5, [...] a day, PRN as needed for anxiety, CONSTRUCTION AREA MANAGER reviewed [id number], # 90 tablet, 0 Refills, Maintenance, 04/08/19 [...] 03/22/19 Stop Date: 09/18/19 Status: Ordered Pen [place], 30 G x 8 mm BD Ultra [...] Active Hepatic steatosis(Confirmed) Active Gastric regurgitation(Confirmed) Active Vital Signs Most recent to oldest [Reference Range]: 1 2 3 Height 167 cm (04/29/19 6:24 AM) Weight 85.9 kg (04/29/19 6:24 AM) Oxygen Saturation [94-100 %] 96 % (04/29/19 9:45 AM) 97 % (04/29/19 9:30 AM) 96 % (04/29/19 9:15 AM) Pulse Rate [55-90 bpm] 92 bpm *H* (04/29/19 6:24 AM) Body Mass Index [18.5-24.99] 30.8 *>HHI* (04/29/19 6:24 AM) Blood Pressure [90-138/55-84 mm Hg] 137/87mm Hg (04/29/19 9:45 AM) 136/75mm Hg (04/29/19 9:30 AM) 128/74mm Hg (04/29/19 9:15 AM) Respiratory Rate [16-30 br/min] 19 br/min (04/29/19 9:45 AM) 18 br/min (04/29/19 9:30 AM) 25 br/min (04/29/19 9:15 AM) Temperature [96.8-100.4 DegF] 97.4 DegF (04/29/19 8:45 AM) 98.1 DegF (04/29/19 6:24 AM) Liters per Minute 6 L/min (04/29/19 8:45 AM) Mode of Delivery (Oxygen) Room air (04/29/19 9:45 AM) Room air (04/29/19 9:15 AM) Room air (04/29/19 9:00 AM) Blood pressure sites Arm, left (04/29/19 9:45 AM) Arm, left (04/29/19 9:15 AM) Arm, left (04/29/19 9:00 AM) Temperature Route Temporal (04/29/19 8:45 AM) Femoral (04/29/19 6:24 AM) Weight Obtained Via Standing scale (04/29/19 6:24 AM) Social History Social History Type Response Smoking Status Former smoker; Tobac co user in household: No entered on: 08/07/16 Sex
--- OUTSIDE RECORDS SUMMARY | 2023-06-25 02:48 | XMS_ITS | Continuity of Care Document ---
Author Organization [facility] Adult Address [address] [place] [address]- Care Team Providers Care Scoop Filler Name Role Phone Shivani IBARRA, [facility] Primary Care Physician ( [phone] Encounter [facility] Date(s): 03/13/23 - 04/12/23 [facility] Adult [address] [place] [address]- Allergies, Adverse Reactions, Alerts Substance Reaction Severity [...] Comment: [facility] [id number] 2Result Comment: [facility] [id number] 3Result Comment: [facility] [id number] [phone] 4Admin Note: [facility] [...] EST, Route to Pharmacy Electronically, [facility], 167, cm, 08/29/21 9:11:00 EDT, Height Start Date: 03/24/23 Status: Ordered Januvia 100 mg oral tablet 1 tablet, By Mouth, Daily, # 90 tablet, 0 Refills, Maintenance, 03/13/23 9:11:00 EST, [facility], 167, cm, 08/29/21 9:11:00 EDT, [...] mL, 3 Refills, Maintenance, 04/24/22 10:40:00 EST, [facility], 167, cm, 08/29/21 9:11:00 EDT, Height Start Date: 04/24/22 Status: Ordered LORazepam 1 mg oral tablet 1 tablet = 1 mg, By Mouth, 3 times a day, PRN as needed for anxiety, # 90 tablet, 3 Refills, Maintenance, 03/09/23 14:28:00 EST, Tablet, [facility], 167, cm, 08/29/21 9:11:00 EDT, [...] Height Start Date: 03/24/23 Status: Ordered Pen [place], 31 G x 8 mm BD Ultra [...] EST, Route to Pharmacy Electronically, [facility], 167, cm, 08/29/21 9:11:00 EDT, [...] Team Personnel Name: Yoel Parrish MD Position: [facility] Physician - Primary Care Member Role: PCP Address: Address: [address] [facility] 3rd [place] [address]- Care Team Related Persons Name: CHAGO MEDRANO Address: home [address] [place] [address] Name: SUNIL TEMPLETON Address: home [address] [place] [address], [address] [address]
--- OUTSIDE RECORDS SUMMARY | 2023-06-25 02:48 | XMS_ITS | Continuity of Care Document ---
Author Organization [facility] Adult Address [address] [place] [address]- Care Team Providers Care Rpg Programmer Analyst Name Role Phone Shivani IBARRA, [facility] Primary Care Physician [place] [facility] [place]23 [place] 03/06/23 [facility] Adult [address] [place] [address]- Attending Physician: Samara Lubin Admitting Physician: AdmSamara lim Referring Physician: AdmtrSamara Allergies, Adverse Reactions, Alerts Substance Reaction Severity [...] 13-valent vaccine 5 09/14/16 Recorded 1Result Comment: [facility] [id number] 2Result Comment: [facility] 27304-864-89 3Result Comment: [facility] [phone] 4Admin [facility]: [facility] [...] EDT, Route to Pharmacy Electronically, [facility], 167, cm, 08/29/21 9:11:00 EDT, [...] Height Start Date: 09/10/22 Status: Ordered Pen [place], 31 G x 8 mm BD Ultra [...] 05/20/22 14:37:00 EDT, Route to Pharmacy Electronically, [facility] [...] in household: No entered on: 08/07/16 Sex EKG study * Event Display: EKG Authored Date: Laboratory * Event Display: Non BH Lab Results Authored Date: Patient Care team information Care Team Personnel Name: Yoel Parrish MD Position: [facility] Physician - Primary Care Member Role: PCP Address: Address: [address] [place] [address] 3rd [place] [address]- Care Team Related Persons Name: CHAGO MEDRANO Address: home [address] [place] [address] Name: SUNIL TEMPLETON Address: home [address] [facility], [address] [address]
--- OUTSIDE RECORDS SUMMARY | 2023-06-25 02:48 | XMS_ITS | Continuity of Care Document ---
Author Organization [facility] Adult Address [address] [place] [address]- Care Team Providers Care Tire Changer Aircraft Name Role Phone Yoel Parrish MD Primary Care Physician En[place] [facility] [place] Date(s): 06/29/19 - 07/29/19 [facility] Adult [address] [place] [address]- [facility] Attending Physician: Samara Lubin Admitting Physician: Samara Lubin Referring Physician: AdmSamara lim Allergies, Adverse Reactions, Alerts Substance Reaction Severity [...] 13-valent vaccine 5 09/14/16 Recorded 1Result Comment: [facility] 20845-026-03 2Result Comment: [facility] [id number] 3Result Comment: [facility] [phone] 4[facility] Medications aspirin 81 mg oral delayed release tablet 81 mg, 1, tablet, By Mouth, Daily, # 90 tablet, Refills 2, Tot. Refills 2, Maintenance, 07/12/19 10:12:05 EDT, Route to Pharmacy Electronically, [id number], [facility] Start Date: [...] 100 mg, 1, capsule, By Mouth, Daily, tire duster reviewed 01/26/2019, # 30 capsule, Refills 5, [...] a day, PRN as needed for anxiety, HOGSHEAD HAND reviewed 07/08/19, # 90 tablet, 0 Refills, [...] 1 Refills, Maintenance, 03/22/19 10:29:00 EST, Tablet, [facility], 168, cm, 11/18/18 11:57:00 EDT, Height Start Date: 03/22/19 Stop Date: 09/18/19 Status: Ordered Pen [place], 30 G x 8 mm BD Ultra [...] 06/07/19 10:55:00 EDT, Route to Pharmacy Electronically, [facility], 167, cm, 04/29/19 6:24:00 EST, Height, 85.8, kg, 04/27/19 11:30:00 EST, Dry Weight Start Date: 06/07/19 Status: Ordered rosuvastatin 10 mg oral tablet 1 tablet = 10 mg, By Mouth, Daily, # 30 tablet, 11 Refills, Maintenance, 03/23/19 9:46:00 EST, Tablet, [facility], 168, cm, 03/23/19 9:12:00 EST, [...]
--- OUTSIDE RECORDS SUMMARY | 2023-06-25 02:48 | XMS_ITS | Continuity of Care Document ---
Author Organization [facility] Adult Address [address] [place] [address]- Care Team Providers Care Family Nurse Name Role Phone Shivani IBARRA, [facility] Primary Care Physician [place] [facility] [place] 01/17/21 - 02/16/21 [facility] Adult [address] [place] [address]- Allergies, Adverse Reactions, Alerts Substance Reaction Severity [...] 13-valent vaccine 5 09/14/16 Recorded 1Result Comment: [facility] [id number] 2Result Comment: [facility] [id number] 3Result Comment: [facility] [id number] 4[facility] Medications Aspirin Enteric Coated 81 mg oral delayed release tablet See Instructions, TAKE ONE TABLET BY MOUTH EVERY DAY, # 90 tablet, 0 Refills, 01/14/21 8:29:00 EST,[facility], 167, cm, 10/26/19 9:29:00 EDT, Height, 85.8, kg, 04/27/19 11:30:00 EST, Dry Weight Start Date: 01/14/21 Status: Ordered Flovent HFA 110 mcg/inh inhalation [...] Refills 5, Tot. Refills 5, Hard Stop 01/07/22 13:18:00 EST, use to test blood sugars 4 times daily Dx: E11.9, 07/16/20 13:18:00 EDT, Compound, 167, cm, 10/26/19 9:29:00 EDT, Height, 85.8, kg, 04/27/19 11:30:... Start Date: 07/16/20 Stop Date: 01/07/22 Status: Ordered gabapentin 100 mg oral capsule 1, capsule, By Mouth, Daily, # 30 Unknown, Refills 5, Tot. Refills 5, Maintenance, 09/07/20 14:43:00 EDT, Route to Pharmacy Electronically, [facility], 167, cm, 10/26/19 9:29:00 EDT,Height, 85.8, kg, 04/27/19 11:30:00 EST, Dry Weight Start Date: 09/07/20 Status: Ordered Januvia 100 mg oral tablet See Instructions, TAKE ONE TABLET BY MOUTH EVERY DAY, # 90 tablet, 0 Refills, 01/14/21 8:29:00 EST,[facility], 167, cm, 10/26/19 9:29:00 EDT, Height, 85.8, kg, 04/27/19 11:30:00 EST, Dry Weight Start Date: 01/14/21 Status: Ordered Lantus Solostar Pen 100 units/mL subcutaneous solution See Instructions, INJECT 15 UNITS SUBCUTANEOUSLY DAILY AT BEDTIME, # 15 mL, 0 Refills, 01/14/21 8:29:00 EST, [facility], 167, cm, 10/26/19 9:29:00 EDT, Height, 85.8, kg, 04/27/19 11:30:00 EST, Dry Weight Start Date: 01/14/21 Status: Ordered LORazepam 1 mg oral tablet 1 tablet = 1 mg, By Mouth, 3 times a day, PRN as needed for anxiety, # 90 tablet, 1 Refills, Maintenance, 01/15/21 12:52:00 EST, Tablet, [facility], 167, cm, 10/26/19 9:29:00 EDT, Height, 85.8, kg, 04/27/19 11:30:00 EST, Dry Weight Start Date: 01/15/21 Status: Ordered metFORMIN 1000 mg oral tablet 1 tablet = 1,000 mg, By Mouth, 2 times a day, # 180 tablet, 0 Refills, Maintenance, 01/14/21 8:29:00 EST, Tablet, [facility], 167, cm, 10/26/19 9:29:00 EDT, Height, 85.8, kg, 04/27/19 11:30:00 EST, Dry Weight Start Date: 01/14/21 Status: Ordered MiraLax oral powder for reconstitution = 17 Gm, By Mouth, 2 times a day, dissolve in water before taking, # 3,060 Gm, 0 Refills, Maintenance, 04/28/21 8:03:00 EST, REC Powder, [facility], 17 Gm By Mouth 2 times a day,x90 days,Instr:dissolve in water before taking, 167, cm, ... Start Date: 04/28/21 Stop Date: 07/27/21 Status: Ordered MiraLax oral powder for reconstitution [...] Daily, # 90 capsule, 0 Refills, Maintenance, 01/14/21 8:29:00 EST, EC Capsule, [facility], 167, cm, 10/26/19 9:29:00 EDT, Height, 85.8, kg, 04/27/19 11:30:00 EST, Dry Weight Start Date: 01/14/21 Stop Date: 04/14/21 Status: Ordered PARoxetine 30 mg oral tablet See Instructions, TAKE ONE TABLET BY MOUTH TWICE A DAY, # 180 tablet, 0 Refills, 01/14/21 8:29:00 EST, [facility], 167, cm, 10/26/19 9:29:00 EDT, Height, 85.8, kg, 04/27/19 11:30:00 EST, Dry Weight Start Date: 01/14/21 Status: Ordered Pen [place], 31 G x 8 mm BD Ultra [...] By Mouth, Daily, # 30 tablet, Refills 0, Route to Pharmacy Electronically, [facility], 167, cm, 10/26/19 9:29:00 EDT, Height, 85.8, kg, 04/27/19 11:30:00 EST, Dry Weight Start Date: 02/14/21 Status: Ordered rosuvastatin 10 mg oral tablet 1 tablet = 10 mg, By Mouth, Daily, # 90 tablet, 0 Refills, Maintenance, 01/27/21 12:53:00 EST, Tablet, [facility], 167, cm, 10/26/19 9:29:00 EDT, Height, 85.8, kg, 04/27/19 11:30:00 EST, Dry Weight Start Date: 01/27/21 Stop Date: 04/27/21 Status: Ordered Ventolin HFA 108 [...]
--- OUTSIDE RECORDS SUMMARY | 2023-06-25 02:48 | XMS_ITS | Continuity of Care Document ---
Author Organization [facility] Adult Address [address] [place] [address]- Care Team Providers Care Journeyman Pipe Fitter Name Role Phone Shivani IBARRA, [facility] [place]s): 12/06/21 - 01/05/22 [facility] [address] [place] [address]- Attending Physician: Samara Lubin Admitting Physician: Samara Lubin Referring Physician: AdmtrSamara Allergies, Adverse Reactions, Alerts [...] 13-valent vaccine 5 09/14/16 Recorded 1Result Comment: [facility] [id number] 2Result Comment: [facility] [id number] 3Result Comment: [facility] [id number] 4Admin Note: [facility] [...] 09/18/21 10:17:00 EDT, Route to Pharmacy Electronically, [facility], Partial fill upon patient request if the prescription is for a schedul... Start Date: 09/18/21 Stop Date: 03/17/22 Status: Ordered Januvia 100 mg oral tablet See Instructions, TAKE ONE TABLET BY MOUTH EVERY DAY, # 90 tablet, 3 Refills, 03/22/21 10:20:00 EST, [facility], 167, cm, 03/22/21 9:18:00 EST, Height, 85.8, kg, 04/27/19 11:30:00 EST, Dry Weight Start Date: 03/22/21 Status: Ordered Lantus Solostar Pen 100 units/mL subcutaneous solution See Instructions, INJECT 15 UNITS SUBCUTANEOUSLY DAILY AT BEDTIME, # 10 mL, 3 Refills, 03/22/21 10:21:00 EST, [facility], 167, cm, 03/22/21 9:18:00 EST, Height, 85.8, kg, 04/27/19 11:30:00 EST, Dry Weight Start Date: 03/22/21 Status: Ordered LORazepam 1 mg oral tablet 1 tablet = 1 mg, By Mouth, 3 times a day, PRN as needed for anxiety, # 90 tablet, 0 Refills, Maintenance, 11/27/21 13:48:00 EDT, Tablet, [facility], 167, cm, 08/29/21 9:11:00 EDT, Height Start Date: 11/27/21 Status: Ordered metFORMIN 1000 mg oral tablet [...] Weight Start Date: 03/22/21 Status: Ordered Pen [place], 31 G x 8 mm BD Ultra [...] EST, Route to Pharmacy Electronically, [facility], 167, cm, 03/22/21 9:18:00 EST, Height, 85.8, kg, 0... Start Date: 03/22/21 Stop Date: 03/17/22 Status: Ordered rosuvastatin 10 mg oral tablet 1 tablet = 10 mg, By Mouth, Daily, # 90 tablet, 3 Refills, Maintenance, 04/27/21 12:53:00 EST, Tablet, [facility], 167, cm, 03/22/21 9:18:00 EST, Height, 85.8, kg, 04/27/19 11:30:00 EST, Dry Weight Start Date: 04/27/21 Status: Ordered Ventolin HFA 108 mcg/inh inhalation aerosol with adapter 2 puffs, Inhalation, 4 times a day, PRN for wheezing, # 18 Gm, 5 Refills, Maintenance, 09/17/21 7:00:00 EDT, Aerosol, [facility], 167, cm, 08/29/21 9:11:00 EDT, Height Start Date: 09/17/21 Status: Ordered Problem List Condition Confirmation Course [...] on: 08/07/16 Sex Patient Care team information Personnel Name: Shivani IBARRA, [facility] Address: Address: [address] [facility] 3rd [address] [place], [place] [address]
--- OUTSIDE RECORDS SUMMARY | 2023-06-25 02:48 | XMS_ITS | Continuity of Care Document ---
Author Organization [facility] Adult Address [address] [place] [address]- Care Team Providers Care Pigment Presser Name Role Phone Shivani IBARRA, Yoel Primary Care Physician Encounter [facility] Date(s): 01/19/23 - 04/19/23 [facility] Adult [address] [place] [address]- Attending Physician: Yoel Parrish MD Allergies, Adverse [...] Jose rded influenza virus vaccine, inactivated 11/26/11 Joes rded SARS-CoV-2 (COVID-19) mRNA BNT-162b2 vac 03/12/21 [...] 13-valent vaccine 5 09/14/16 Recorded 1Result Comment: [facility] [id number] 2Result Comment: [facility] [id number] 3Result Comment: [facility] [id number] [phone] 4Admin Note: [facility] [...] 3 Refills, Maintenance, 03/09/23 14:28:00 EST, Tablet, [facility], [...] Height Start Date: 03/24/23 Status: Ordered Pen [place], 31 G x 8 mm BD Ultra [...] Team Personnel Name: Yoel Parrish MD Position: [facility] Physician - Primary Care Member Role: PCP Address: Address: [address] [place] [address] [address] [place] [address]- Care Team Related Persons Name: CHAGO MEDRANO Address: home [address] [place] [address] Name: SUNIL TEMPLETON Address: home [address] [place] [address], [address] [address]
--- OUTSIDE RECORDS SUMMARY | 2023-06-25 02:48 | XMS_ITS | Continuity of Care Document ---
Author Organization [facility] Adult Address [address] [place] [address]- Care Team Providers Care Mens Locker Room Attendant Name Role Phone Yoel Parrish MD Primary Care Physician [place] [facility] [place] 04/12/19 - 04/22/19 [facility] Adult [address] [place] [address] [facility] Attending Physician: Samara Lubin Admitting [...] 13-valent vaccine 5 09/14/16 Recorded 1Result Comment: [facility] 20349-388-17 2Result Comment: [facility] 14049-076-00 3Result Comment: [facility] [id number] [phone] 4Admin [facility] Medications aspirin 81 mg oral delayed release tablet 81 mg, 1, tablet, By Mouth, Daily, # 90 tablet, Refills 2, Tot. Refills 2, Maintenance, 07/12/19 10:12:05 EDT, Route to Pharmacy Electronically, [id number], [facility] Start Date: [...] 100 mg, 1, capsule, By Mouth, Daily, vp public relations reviewed 01/26/2019, # 30 capsule, Refills 5, Tot. Refills5, Maintenance, 03/23/19 9:45:00 EST, Route to Pharmacy Electronically, [facility], 168, cm, 03/23/19 9:12:00 EST, Height Start Date: 03/23/19 Stop Date: 09/19/19 Status: Ordered Januvia 100 mg oral tablet See Instructions, # 90 tablet, TAKE ONE TABLET BY MOUTH EVERY DAY, [place], [facility] Start Date: [...] a day, PRN as needed for anxiety, CONTRACT ADMINISTRATION MANAGER reviewed , # 90 tablet, 0 Refills, Maintenance, 04/08/19 [...] 03/22/19 Stop Date: 09/18/19 Status: Ordered Pen [place], 30 G x 8 mm BD Ultra [...] EST, Route to Pharmacy Electronically, [facility], 168, cm, 11/18/18 11:57:00 EDT, [...]
--- OUTSIDE RECORDS SUMMARY | 2023-06-25 02:48 | XMS_ITS | Continuity of Care Document ---
Author Organization [facility] Adult Address [address] [place] [address]- Care Team Providers Care Design Agent Name Role Phone Shivani IBARRA, [facility] Primary Care Physician [facility] Date(s): 03/19/21 - 04/18/21 [facility] Adult [address] [place] [address]- Allergies, Adverse Reactions, Alerts Substance Reaction Severity [...] vaccine 5 09/14/16 Recorded 1Result Comment: [facility] [id number] 2Result Comment: [facility] [id number] 3Result Comment: [facility] [id number] 4Admin Note: [facility] [...] 07/16/20 Stop Date: 01/07/22 Status: Ordered gabapentin 300 mg oral capsule 300 mg, 1, capsule, By Mouth, Daily at bedtime, # 30 capsule, Refills 5, Tot. Refills 5, Maintenance, 03/22/21 10:17:00 EST, Route to Pharmacy Electronically, [facility], Partial fill upon patient request [...] Weight Start Date: 03/22/21 Status: Ordered Pen [place], 31 G x 8 mm BD Ultra [...] 03/22/21 10:20:00 EST, Route to Pharmacy Electronically, [facility], 167, cm, 03/22/21 9:18:00 EST, [...] Asthma(Confirmed) Active CKD (chronic kidney disease)(Confirmed) Active DM (diabetes mellitus)(Confirmed) Active H. pylori infection(Confirmed) Active Hyperlipidemia(Confirmed) Active Anxiety and depression(Confirmed) Active Hepatic steatosis(Confirmed) Active Gastric regurgitation(Confirmed) Active Social History Social History Type Response Smoking Status Former smoker; Tobac co user in household: No entered on: 08/07/16 Sex
--- OUTSIDE RECORDS SUMMARY | 2023-06-25 02:49 | XMS_ITS | Continuity of Care Document ---
Author Organization [facility] Adult Address [address] [place] [address]- Care Team Providers Care Altitude Chamber Technician Name Role Phone Shivani IBARRA, [facility] Primary Care Physician [facility]counter [facility] Date(s): 11/13/20 - 12/13/20 [facility] Adult [address] [place] [address]- Allergies, Adverse Reactions, Alerts Substance Reaction Severity [...] 13-valent vaccine 5 09/14/16 Recorded 1Result Comment: [facility] [id number] 2Result Comment: [facility] [id number] 3Result Comment: [facility] [id number] 4Admin Note: [facility] [...] 09/07/20 14:43:00 EDT, Route to Pharmacy Electronically, [facility], 167, cm, 10/26/19 [...] cm, ... Start Date: 10/30/20 Stop Date: 2/27/22 Status: Ordered omeprazole 20 mg oral enteric [...] A DAY, # 180 tablet, 0 Refills, [facility], 167, cm, 10/26/19 9:29:00 EDT, Height, 85.8, kg, 04/27/19 11:30:00 EST, Dry Weight Start Date: 11/13/20 Status: Ordered Pen [place], 31 G x 8 mm BD Ultra [...] Replace Required Details, Route to Pharmacy Electronically, [facility], 167, cm, 10/26/19 9:29:00 EDT, Height, 85.8, kg, 04/27/19 11:30:00 EST, Dry... Start Date: 11/13/20 Status: Ordered rosuvastatin 10 mg oral tablet 1 tablet = 10 mg, By Mouth, Daily, # 90 tablet, 1 Refills, Maintenance, 07/31/20 12:53:00 EDT, Tablet, [facility], [...]
--- OUTSIDE RECORDS SUMMARY | 2023-06-25 02:49 | XMS_ITS | Continuity of Care Document ---
Author Organization [facility] Adult Address [address] [place] [address]- Care Team Providers Care Business Control Manager Name Role Phone Shivani IBARRA, [facility] Primary Care Physician Encounter [facility] Date(s): 05/02/20 - 06/01/20 [facility] Adult [address] [place] [phone]- Allergies, Adverse Reactions, Alerts Substance Reaction Severity [...] 13-valent vaccine 5 09/14/16 Recorded 1Result Comment: [facility] [id number] 2Result Comment: [facility] [id number] 3Result Comment: [facility] [phone] [facility] Medications aspirin 81 mg oral delayed release tablet 81 mg, 1, tablet, By Mouth, Daily, # 90 tablet, Refills 1, Tot. Refills 1, Maintenance, 04/07/20 10:12:00 EST, Route to Pharmacy Electronically, [facility], 167, cm, 10/26/19 9:29:00EDT, Height, 85.8, kg, 04/27/19 11:30:00 EST, Dry Weight Start Date: 04/07/20 Stop Date: 10/04/20 Status: Ordered Flovent HFA 110 mcg/inh inhalation aerosol 2 puffs, Inhalation, 2 times a day, # 12 Gm, 5 Refills, Maintenance, 01/03/20 13:52:00 EST, Aerosol, [facility], 167, cm, 10/26/19 9:29:00 EDT, Height, 85.8, kg, 04/27/19 11:30:00 EST, Dry Weight Start Date: 01/03/20 Status: Ordered Freestyle Lancets See Instructions, # [...] # 30 Unknown, Refills 5, Tot. Refills 0, Maintenance, 05/03/20 9:00:00EST, Route to Pharmacy Electronically, [facility], 167, cm, 10/26/19 9:29:00 EDT, Height, 85.8, kg, 04/27/19 11:30:00 EST, Dry Weight Start Date: 05/03/20 Status: Ordered Januvia 100 mg oral tablet 1 tablet = 100 mg, By Mouth, Daily, # 90 tablet, 1 Refills, Soft Stop, 03/16/20 12:46:00 EST, [facility], 167, cm, 10/26/19 9:29:00 EDT, Height, 85.8, kg, 04/27/19 11:30:00 EST, Dry Weight Start Date: 03/16/20 Stop Date: 09/12/20 Status: Ordered Lantus Solostar Pen 100 units/mL [...] anxiety, # 90 tablet, 0 Refills, Maintenance, 04/03/20 9:46:00 EST, Tablet, [facility], 167, cm, 10/26/19 9:29:00 EDT, Height, 85.8, kg, 04/27/19 11:30:00 EST, Dry Weight Start Date: 04/03/20 Stop Date: 05/03/20 Status: Ordered metFORMIN 1000 mg oral tablet 1 tablet = 1,000 mg, By Mouth, 2 times a day, # 180 tablet, 1 Refills, Maintenance, 12/05/19 8:06:00 EDT, Tablet, [facility], 167, cm, 10/26/19 9:29:00 EDT, Height, 85.8, kg, 04/27/19 11:30:00 EST, Dry Weight Start Date: 12/05/19 Status: Ordered MiraLax oral powder for reconstitution = 17 Gm, By Mouth, 2 times a day, dissolve in water before taking, # 3,060 Gm, 1 Refills, Maintenance, 05/03/20 8:03:00 EST, REC Powder, [facility], 17 Gm By Mouth 2 times a day,x90 days,Instr:dissolve in water before taking, 167, cm, ... Start Date: 05/03/20 Stop Date: 10/30/20 Status: Ordered omeprazole 20 mg oral enteric coated capsule 1 capsule = 20 mg, By Mouth, Daily, # 90 capsule, 0 Refills, Maintenance, 01/27/20 13:05:00 EST, ECCapsule, [facility], Rx resent from 09/20/19., 167, cm, 10/26/19 9:29:00 EDT, Height, 85.8, kg, 04/27/19 11:30:00 EST, Dry Weight Start Date: 01/27/20 Stop Date: 04/26/20 Status: Ordered Paxil 30 mg oral tablet 1 tablet = 30 mg, By Mouth, 2 times a day, # 180 tablet, 1 Refills, Maintenance, 05/03/20 8:03:00 EST, Tablet, [facility], 167, cm, 10/26/19 9:29:00 EDT, Height, 85.8, kg, 04/27/19 11:30:00 EST, Dry Weight Start Date: 05/03/20 Stop Date: 10/30/20 Status: Ordered Pen [place], 30 G x 8 mm BD Ultra Fine II See Instructions, # 100 each, Refills 5, Tot. Refills 5, Maintenance, use as directed for Type 1 Diabetes Mellitus, 04/23/20 8:27:00 EST, Compound, 167, cm, 10/26/19 9:29:00 EDT, Height, 85.8, kg, 04/27/19 11:30:00 EST, Dry Weight Start Date: 04/23/20 Stop Date: 10/20/20 Status: Ordered QUEtiapine 150 mg oral tablet, extended release 1, tablet, By Mouth, Daily, # 30 tablet, Refills 1, Tot. Refills 1, Maintenance, 05/03/20 8:03:00 EST, Route to Pharmacy Electronically, [facility], Office visit needed for further refills. Please call office to schedule an appointment.,... Start Date: 05/03/20 Status: Ordered rosuvastatin 10 mg oral tablet 1 tablet = 10 mg, By Mouth, Daily, # 90 tablet, 1 Refills, Maintenance, 02/02/20 12:53:00 EST, Tablet, [facility], 167, cm, 10/26/19 9:29:00 EDT, Height, 85.8, kg, 04/27/19 11:30:00 EST, Dry Weight Start Date: 02/02/20 Stop Date: 07/31/20 Status: Ordered Ventolin HFA 108 mcg/inh inhalation [...]
--- OUTSIDE RECORDS SUMMARY | 2023-06-25 02:49 | XMS_ITS | Continuity of Care Document ---
Author Organization [facility] Adult Address [address] [place] [address]- Care Team Providers Care Digital X Ray Service Engineer Name Role Phone Shivani IBARRA, [facility] Primary Care Physician [place] [facility] [place] 08/29/21 - 09/28/21 [facility] Adult [address] [place] [address]- Attending Physician: Samara Lubin Admitting Physician: AdmSamara [...] vaccine 5 09/14/16 Recorded 1Result Comment: [facility] [id number] 2Result Comment: [facility] [phone] 3Result Comment: [facility] [phone] 4[facility] [...] EDT, Route to Pharmacy Electronically, [facility], Partial fill upon patient request [...] Weight Start Date: 03/22/21 Status: Ordered Pen [place], 31 G x 8 mm BD Ultra [...] 03/22/21 10:20:00 EST, Route to Pharmacy Electronically, [facility], 167, cm, 03/22/21 9:18:00 EST, Height, 85.8, kg, 0... Start Date: 03/22/21 Stop Date: 03/17/22 Status: Ordered rosuvastatin 10 mg oral tablet 1 tablet = 10 mg, By Mouth, Daily, # 90 tablet, 3 Refills, Maintenance, 04/27/21 12:53:00 EST, Tablet, [facility], 167, cm, 03/22/21 9:18:00 EST, Height, 85.8, kg, 04/27/19 11:30:00 EST, Dry Weight Start Date: 04/27/21 Status: Ordered Ventolin HFA 108 mcg/inh inhalation aerosol with adapter 2 puffs, Inhalation, 4 times a day, PRN for wheezing, # 18 Gm, 5 Refills, Maintenance, 09/17/21 7:00:00 EDT, Aerosol, [facility], 167, cm, 08/29/21 9:11:00 EDT, [...]
--- OUTSIDE RECORDS SUMMARY | 2023-06-25 02:49 | XMS_ITS | Continuity of Care Document ---
Author Organization [facility] Adult Address [address] [place] [address]- Care Team Providers Care Crane Chaser Name Role Phone Shivani IBARRA, [facility] Primary Care Physician [place] [facility] 01/22/21 - 02/21/21 [facility] Adult [address] [place] [address]- Attending Physician: Samara Lubin Admitting Physician: AdmSamara [...] [facility] [id number] 2Result Comment: [facility] [id number] 3Result Comment: [facility] [id number] [phone] 4Admin Note: [facility] [...] Weight Start Date: 01/14/21 Status: Ordered Pen [place], 31 G x 8 mm BD Ultra [...] 0, Route to Pharmacy Electronically, [facility], 167, cm, 10/26/19 9:29:00 EDT, Height, 85.8, kg, 04/27/19 11:30:00 EST, Dry Weight Start Date: 02/14/21 Status: Ordered rosuvastatin 10 mg oral tablet 1 tablet = 10 mg, By Mouth, Daily, # 90 tablet, 0 Refills, Maintenance, 01/27/21 12:53:00 EST, Tablet, [facility] [...]
--- OUTSIDE RECORDS SUMMARY | 2023-06-25 02:49 | XMS_ITS | Continuity of Care Document ---
Author Organization [facility] Adult Address [address] [place] [address]- Care Team Providers Care Flash Ranging Crewmember Name Role Phone Shivani IBARRA, Yoel Primary Care Physician En[place] [facility] Date(s): 08/20/21 - 08/27/21 [facility] Adult [address] [place] [address]- Attending Physician: Yoel Parrish MD Allergies, Adverse [...] Comment: [facility] [phone] 2Result Comment: [facility] [phone] 3Result Comment: [facility] [id number] [phone] 4Admin Note: [facility] [...] # 12 Gm, 3 Refills, Physician Stop 06/21/22 14:47:00 EDT, 06/26/21 14:47:00 EDT, [facility], 167, cm, 04/19/21 11:50:00 EST, Height Start Date: 06/26/21 Stop Date: 06/21/22 Status: Ordered Freestyle Lancets See Instructions, # [...] EST, Route to Pharmacy Electronically, [email or web address], Partial fill upon patient request [...] day, PRN as needed for anxiety, # 30 tablet, 0 Refills, Maintenance, 08/22/21 17:17:00 EDT, Tablet, [facility], 167, cm, 04/19/21 11:50:00 EST, Height Start Date: 08/22/21 Status: Ordered metFORMIN 1000 mg oral tablet [...] Weight Start Date: 03/22/21 Status: Ordered Pen [place], 31 G x 8 mm BD Ultra [...] 03/22/21 10:20:00 EST, Route to Pharmacy Electronically, [email or web address], 167, cm, 03/22/21 9:18:00 EST, Height, 85.8, kg, 0... Start Date: 03/22/21 Stop Date: 03/17/22 Status: Ordered rosuvastatin 10 mg oral tablet 1 tablet = 10 mg, By Mouth, Daily, # 90 tablet, 3 Refills, Maintenance, 04/27/21 12:53:00 EST, Tablet, [facility], 167, cm, 03/22/21 9:18:00 EST, Height, 85.8, kg, 04/27/19 11:30:00 EST, Dry Weight Start Date: 04/27/21 Status: Ordered Ventolin HFA 108 mcg/inh inhalation aerosol with adapter 2 puffs, Inhalation, 4 times a day, PRN for wheezing, # 18 Gm, 3 Refills, Maintenance, 06/26/21 14:48:00 EDT, Aerosol, [facility], 167, cm, 04/19/21 11:50:00 EST, Height Start Date: 06/26/21 Status: Ordered Problem List Condition Effective Dates [...]
--- OUTSIDE RECORDS SUMMARY | 2023-06-25 02:49 | XMS_ITS | Continuity of Care Document ---
Author Organization [facility] Adult Address [address] [place] [address]- Care Team Providers Care Chief Of Surgery Name Role Phone Shivani IBARRA, [facility] Primary Care Physician [place] [facility] [place] 09/26/19 - 10/26/19 [facility] Adult [address] [place] [address]- [facility] Allergies, Adverse Reactions, Alerts Substance Reaction Severity [...] 09/14/16 Recorded 1Result Comment: [facility] [id number] 2Result Comment: [facility] [phone] 3Result Comment: [facility] [id number] 4[facility]: [facility] Medications aspirin 81 mg oral delayed release tablet 81 mg, 1, tablet, By Mouth, Daily, # 90 tablet, Refills 2, Tot. 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 Start Date: 10/03/19 Stop Date: 11/02/19 Status: Ordered metFORMIN 1000 mg oral tablet [...] before taking, 167, cm, ... Start Date: 08/08/19 Stop Date: 02/04/20 Status: Ordered omeprazole 20 mg oral enteric coated capsule 1 capsule = 20 mg, By Mouth, Daily, # 90 capsule, 0 Refills, Maintenance, 09/20/19 10:38:00 EDT, ECCapsule, [facility], 167, cm, 04/29/19 6:24:00 EST, Height, 85.8, kg, 04/27/19 11:30:00 EST, Dry Weight Start Date: 09/20/19 Stop Date: 12/19/19 Status: Ordered Paxil 30 mg oral tablet 1 tablet = 30 mg, By Mouth, 2 times a day, # 180 tablet, 1 Refills, Maintenance, 03/22/19 10:29:00 EST, Tablet, [email or web address], 168, cm, 11/18/18 11:57:00 EDT, Height Start Date: 03/22/19 Stop Date: 09/18/19 Status: Ordered Pen [place], 30 G x 8 mm BD Ultra [...] 10/03/19 14:47:00 EDT, Route to Pharmacy Electronically, [email or web address], 167, cm, 04/29/19 6:24:00 EST, [...]
--- OUTSIDE RECORDS SUMMARY | 2023-06-25 02:49 | XMS_ITS | Continuity of Care Document ---
Author Organization [facility] Adult Address [address] [place] [address]- Care Team Providers Care Fibre Cement Moulder Name Role Phone Shivani IBARRA, [facility] Primary Care Physician [place] [facility] [place] 11/13/20 - 12/13/20 [facility] Adult [address] [place] [address]- Allergies, Adverse Reactions, Alerts Substance Reaction Severity [...] [facility] [phone] 2Result Comment: [facility] [id number] 3Result Comment: [facility] [id number] [phone] 4Admin Note: [facility] [...] 09/07/20 14:43:00 EDT, Route to Pharmacy Electronically, [facility], 167, cm, 10/26/19 [...] Weight Start Date: 11/13/20 Status: Ordered Pen [place], 31 G x 8 mm BD Ultra [...]
--- OUTSIDE RECORDS SUMMARY | 2023-06-25 02:49 | XMS_ITS | Continuity of Care Document ---
Author Organization [facility] Adult Address [address] [place] [address]- Care Team Providers Care Survey Chief Name Role Phone Shivani IBARRA, [facility] Primary Care Physician Encounter [facility] Date(s): 08/22/21 - 09/21/21 [facility] Adult [address] [place] [address]- Allergies, Adverse Reactions, Alerts Substance Reaction Severity [...] vaccine 5 09/14/16 Recorded 1Result Comment: [facility] [id number] 2Result Comment: [facility] [id number] 3Result Comment: [facility] [id number] [phone] 4Admin Note: [facility] [...] Weight Start Date: 03/22/21 Status: Ordered Pen [place], 31 G x 8 mm BD Ultra [...] 03/22/21 10:20:00 EST, Route to Pharmacy Electronically, [email or web address], 167, cm, 03/22/21 9:18:00 EST, Height, 85.8, kg, 0... Start Date: 03/22/21 Stop Date: 03/17/22 Status: Ordered rosuvastatin 10 mg oral tablet 1 tablet = 10 mg, By Mouth, Daily, # 90 tablet, 3 Refills, Maintenance, 04/27/21 12:53:00 EST, Tablet, [email or web address], 167, cm, 03/22/21 9:18:00 EST, Height, 85.8, kg, 04/27/19 11:30:00 EST, Dry Weight Start Date: 04/27/21 Status: Ordered Ventolin HFA 108 mcg/inh inhalation aerosol with adapter 2 puffs, Inhalation, 4 times a day, PRN for wheezing, # 18 Gm, 5 Refills, Maintenance, 09/17/21 7:00:00 EDT, Aerosol, [email or web address], 167, cm, 08/29/21 9:11:00 EDT, [...]
--- OUTSIDE RECORDS SUMMARY | 2023-06-25 02:49 | XMS_ITS | Continuity of Care Document ---
Author Organization [facility] Adult Address [address] [place] [address]- Care Team Providers Care Ppap Coordinator Name Role Phone Shivani IBARRA, [facility] Primary Care Physician Encounter [facility] Date(s): 01/02/23 - 02/01/23 [facility] Adult [address] [place] [address]- Allergies, Adverse Reactions, Alerts Substance Reaction Severity [...] vaccine 5 09/14/16 Recorded 1Result Comment: [facility] [phone] 2Result Comment: [facility] [phone] 3Result Comment: [facility] [phone] 4Admin Note: [facility] [...] Height Start Date: 09/10/22 Status: Ordered Pen [place], 31 G x 8 mm BD Ultra [...] 05/20/22 14:37:00 EDT, Route to Pharmacy Electronically, [facility], 167, cm, 08/29/21 9:11:00 EDT, [...] Team Personnel Name: Yoel Parrish MD Position: [facility] Physician - Primary Care Member Role: PCP Address: Address: [address] [place] [address] [address] [place] [address]- Care Team Related Persons Name: CHAGO MEDRANO Address: home [address] [place] [address] Name: SUNIL TEMPLETON Address: home [address] [place] [address], [address] [address]
--- OUTSIDE RECORDS SUMMARY | 2023-06-25 02:49 | XMS_ITS | Continuity of Care Document ---
Author Organization [facility] Adult Address [address] [place] [address]- Care Team Providers Care Fundraising Manager Name Role Phone Shivani IBARRA, [facility] Primary Care Physician ( [phone] [place] [facility] [place](s): 07/10/22 - 08/09/22 [facility] Adult [address] [place] [address]- Allergies, Adverse Reactions, Alerts Substance Reaction Severity [...] 09/14/16 Recorded 1Result Comment: [facility] [id number] 2Result Comment: [facility] [phone] 3Result Comment: [facility] [phone] 4Admin [facility]: [facility] Medications Advair HFA 115 mcg / 21 mcg 2 puffs, Inhalation, 2 times a day, # 12 Gm, 5 Refills, Maintenance, 07/17/22 11:15:00 EDT, [facility], 30, 2 puffs Inhalation 2 times a day, 167, cm, 08/29/21 9:11:00 EDT, Height Start Date: 07/17/22 Status: Ordered Aspirin Enteric Coated 81 mg oral delayed release tablet See Instructions, TAKE ONE TABLET BY MOUTH EVERY DAY, # 90 tablet, 3 Refills, 07/18/22 10:09:00 EDT, [facility], 167, cm, 08/29/21 9:11:00 EDT, Height Start Date: 07/18/22 Status: Ordered Freestyle Lancets See Instructions, # [...] Date: 06/09/22 Stop Date: 12/01/23 Status: Ordered Freestyle Lite Test Strips See [...] capsule, Refills 5, Tot. Refills 5, Maintenance, 04/11/22 12:08:00 EST, Route to Pharmacy Electronically, [facility], Partial fill upon patient request if the prescription is for a schedul... Start Date: 04/11/22 Stop Date: 10/08/22 Status: Ordered Januvia 100 mg oral tablet [...] anxiety, # 90 tablet, 0 Refills, Maintenance, 07/17/22 12:43:00 EDT, Tablet, [facility], 167, cm, 08/29/21 9:11:00 EDT, Height Start Date: 07/17/22 Stop Date: 08/16/22 Status: Ordered metFORMIN 1000 mg oral tablet [...] Daily, # 90 capsule, 1 Refills, Maintenance, 07/17/22 11:14:00 EDT, [facility], 167, cm, 08/29/21 9:11:00 EDT, Height Start Date: 07/17/22 Status: Ordered PARoxetine 30 mg oral tablet 1 tablet, By Mouth, 2 times a day, # 180 tablet, 1 Refills, Maintenance, 03/27/22 12:32:00 EST, [facility], 167, cm, 08/29/21 9:11:00 EDT, Height Start Date: 03/27/22 Status: Ordered Pen [place], 31 G x 8 mm BD Ultra [...] Daily, # 90 tablet, 1 Refills, Maintenance, 03/27/22 12:32:00 EST, [facility], 167, cm, 08/29/21 9:11:00 EDT, Height Start Date: 03/27/22 Status: Ordered Ventolin HFA 108 mcg/inh inhalation aerosol with adapter 2 puffs, Inhalation, 4 times a day, PRN for wheezing, # 18 Gm, 5 Refills, Maintenance, 07/17/22 11:14:00 EDT, Aerosol, [facility], 167, cm, 08/29/21 9:11:00 EDT, Height Start Date: 07/17/22 Status: Ordered Problem List Condition Confirmation Course [...] Team Personnel Name: Yoel Parrish MD Position: [facility] Physician - Primary Care Member Role: PCP Address: Address: [address] [place] [address] [address] [place] [address]- Name: Sandra Conteh Position: [facility] TA Member Role: Lifetime Consulting Physician Care Team Related Persons Name: CHAGO MEDRANO Address: home [address] [place] [address] Name: SUNIL TEMPLETON Address: home [address] [facility], [address] [address]
--- OUTSIDE RECORDS SUMMARY | 2023-06-25 02:49 | XMS_ITS | Continuity of Care Document ---
Author Organization [facility] Address [address] [place] [address]- Care Team Providers Care Dyeing Machine Back Tender Name Role Phone Shivani IBARRA, [facility] Primary Care Physician En[place] [facility] [place] Date(s): 03/15/20 - 04/14/20 [facility] [address] [place] [phone]- Allergies, Adverse Reactions, Alerts Substance Reaction Severity [...] 09/14/16 Recorded 1Result Comment: [facility] [phone] 2Result Comment: [facility] [phone] 3Result Comment: [facility] [id number] [phone] 4Admin Note: [facility] [...] taking, # 3,060 Gm, 1 Refills, Maintenance, 02/04/20 9:51:00 EST, REC Powder, [facility], 17 Gm By Mouth 2 times a day,x90 days,Instr:dissolve in water before taking, 167, cm, ... Start Date: 02/04/20 Stop Date: 08/02/20 Status: Ordered omeprazole 20 mg oral enteric [...] 11/04/19 Stop Date: 05/02/20 Status: Ordered Pen [place], 30 G x 8 mm BD Ultra [...] tablet, Refills 1, Tot. Refills 1, Maintenance, 03/05/20 7:18:00 EST, Route to Pharmacy Electronically, [facility], Office visit needed for further refills. Please call office to schedule an appointment.,... Start Date: 03/05/20 Status: Ordered rosuvastatin 10 mg oral tablet 1 tablet = 10 mg, By Mouth, Daily, # 90 tablet, 1 Refills, Maintenance, 02/02/20 12:53:00 EST, Tablet, [facility], 167, cm, 10/26/19 [...]
--- OUTSIDE RECORDS SUMMARY | 2023-06-25 02:49 | XMS_ITS | Continuity of Care Document ---
Author Organization [facility] [place] [facility] Address [address] [place] [address]- Care Team Providers Care Cable Installer Repairer Helper Name Role Phone Yoel Parrish MD Primary Care Physician [place] [facility] [place] 03/23/19 - 03/30/19 [facility] [address] [place] [address]- [facility] Encounter Diagnosis DM (diabetes mellitus)(Discharge Diagnosis) - 03/23/19 CKD (chronic kidney disease)(Discharge Diagnosis) - 03/23/19 Anxiety and depression(Discharge Diagnosis) - 03/23/19 Hyperlipidemia(Discharge Diagnosis) - 03/23/19 Abnormal LFTs(Discharge Diagnosis) - 03/23/19 Abdominal bloating(Discharge Diagnosis) - 03/23/19 Asthma(Discharge Diagnosis) - 03/23/19 Attending Physician: Yoel Parrish MD Allergies, Adverse Reactions, Alerts Substance Reaction Severity Status glipiZIDE Active Tylox Chest pain not present Activ e Immunizations Given and Recorded Vaccine Date Status Refusal Reason influenza virus vaccine, inactivated 1 11/19/18 Gi ancelmo influenza virus vaccine, inactivated 2 11/18/18 Gi ancelmo influenza virus vaccine, inactivated 3 01/05/17 Gi ancelmo tetanus/diphtheria/pertussis, acel(Tdap) 01/05/17 Given pneumococcal 23-valent vaccine 4 11/05/16 Given pneumococcal 13-valent vaccine 5 09/14/16 Recorded 1Result Comment: [facility] [id number] 2Result Comment: [facility] [phone] 3Result Comment: [facility] [phone] [facility] Medications 1 unit 1 unit, See Instructions, # 1 units, Refills 0, Tot. Refills 0, Maintenance, to Check CBG, Freestyle Reg, 09/22/17 15:55:21 EDT, Compound Start Date: 09/22/17 Status: Ordered aspirin 81 mg oral delayed release tablet 81 mg, 1, tablet, By Mouth, Daily, # 90 tablet, Refills 2, Tot. Refills 2, Maintenance, 07/12/19 10:12:05 EDT, Route to Pharmacy Electronically, [id number], [facility] Start Date: 07/12/19 Stop Date: 04/07/20 Status: Ordered Flovent HFA 110 mcg/inh inhalation aerosol 2 puffs, Inhalation, 2 times a day, # 12 Gm, 5 Refills, Maintenance, 02/07/19 14:05:51 EST, Aerosol, 168, cm, 11/18/18 11:57:26 EDT, Height Start Date: 02/07/19 Status: Ordered Freestyle Lancets See Instructions, # 600 each, Refills 2, Tot. Refills 2, Maintenance, use 2 times daily Dx:E11.9, 07/17/18 15:43:18 EDT, Compound Start Date: 07/17/18 Stop Date: 10/15/18 Status: Ordered Freestyle Lite Test Strips See Instructions, # 600 each, Refills 5, Tot. 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 Start Date: 03/13/19 Stop Date: 09/09/19 Status: [...] 03/22/19 Stop Date: 09/18/19 Status: Ordered Pen [place], 30 G x 8 mm BD Ultra [...] EDT, Height Start Date: 03/09/19 Status: Ordered Shingrix intramuscular injection = 0.5 mL, Intramuscular, Once, repeat dose in 2 to 6 months, # 2 each, 0 Refills, Maintenance, 03/23/19 9:50:00 EST, Powder Start Date: 03/23/19 Status: Ordered Ventolin HFA [...] Effective Dates Health Status Clinical Service Informant DM (diabetes mellitus) Discharge Diagnosis 03/23/19 CKD (chronic kidney disease) Discharge Diagnosis 03/23/19 Anxiety and depression Discharge Diagnosis 03/23/19 Hyperlipidemia Discharge Diagnosis 03/23/19 Abnormal LFTs Discharge Diagnosis 03/23/19 Abdominal bloating Discharge Diagnosis 03/23/19 Asthma Discharge Diagnosis 03/23/19 Vital Signs Most recent to oldest [Reference Range]: 1 Height 168 cm (03/23/19 9:12 AM) Weight 86.5 kg (03/23/19 9:12 AM) Oxygen Saturation [94-100 %] 98 % (03/23/19 9:12 AM) Pulse Rate [55-90 bpm] 90 bpm (03/23/19 9:12 AM) Body Mass Index [18.5-24.99] 30.65 *>HHI* (03/23/19 9:12 AM) Blood Pressure [90-138/55-84 mm Hg] 126/ 76mm Hg (03/23/19 9:12 AM) Temperature [96.8-100.4 DegF] 97.5 DegF (03/23/19 9:12 AM) Mode of Delivery (Oxygen) Room air (03/23/19 9:12 AM) Blood pressure sites Arm, left (03/23/19 9:12 AM) Temperature Route Oral (03/23/19 9:12 AM) Weight Obtained Via Standing scale (03/23/19 9:12 AM) Social History Social History Type Response Smoking Status Former smoker; Tobac co user in household: No entered on: 08/07/16 Sex
--- OUTSIDE RECORDS SUMMARY | 2023-06-25 02:49 | XMS_ITS | Continuity of Care Document ---
Author Organization [facility] Address [address] [place] [address]- Care Team Providers Care House Father Name Role Phone Shivani [facility]BARRA, [facility] Primary [facility] Physician [place] [facility] [place] 02/20/22 - 03/22/22 [facility] [address] [place] [address]- Allergies, Adverse Reactions, Alerts Substance Reaction Severity [...] 1Result Comment: [facility] [id number] 2Result Comment: [facility] [id number] 3Result Comment: [facility] [phone] 4[facility] Medications Advair HFA 115 mcg / 21 mcg 2 puffs, Inhalation, 2 times a day, # 12 Gm, 5 Refills, Maintenance, 02/07/22 11:37:00 EST, [facility], 30, INHALE TWO PUFFS BY MOUTH TWICE A DAY, 167, cm, 08/29/21 9:11:00 EDT, Height Start Date: 02/07/22 Status: Ordered Aspirin Enteric Coated 81 mg [...] as needed for anxiety, # 90 tablet, 2 Refills, Maintenance, 01/16/22 11:03:00 EST, Tablet, [facility], 167, cm, 08/29/21 9:11:00 EDT, Height Start Date: 01/16/22 Stop Date: 04/16/22 Status: Ordered metFORMIN 1000 mg oral tablet [...] Weight Start Date: 03/22/21 Status: Ordered Pen [place], 31 G x 8 mm BD Ultra Fine III See Instructions, # 100 each, Refills 3, Tot. 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, 07/30/21 11:22:00 EDT, Supply, 167, cm, 04/19/21 11:50:00 EST, Height Start Date: 07/30/21 Stop Date: 11/27/21 Status: Ordered rosuvastatin 10 mg oral tablet [...] Maintenance, 09/17/21 7:00:00 EDT, Aerosol, [facility], [...] Team Personnel Name: Yoel Parrish MD Position: [facility] Primary Care Physician Member Role: PCP Address: Address: [address] [place] [address] [address]rd [place] [address]- Care Team Related Persons Name: CHAGO MEDRANO Address: home [address] [place] [address] Name: SUNIL TEMPLETON Address: home [address] [place] [address], [address] [address]
--- OUTSIDE RECORDS SUMMARY | 2023-06-25 02:49 | XMS_ITS | Continuity of Care Document ---
Author Organization [facility] Adult Address [address] [place] [address]- Care Team Providers Care Vibrator Equipment Tester Name Role Phone Shivani IBARRA, [facility] Primary Care Physician [place] [facility] [place] 09/06/20 - 10/06/20 [facility] Adult [address] [place] [address]- Allergies, Adverse Reactions, Alerts Substance Reaction Severity [...] 1Result Comment: [facility] [id number] 2Result Comment: [facility] [id number] 3Result Comment: [facility] [phone] 4[facility]: [facility] [...] 05/03/20 Stop Date: 10/30/20 Status: Ordered Pen [place], 31 G x 8 mm BD Ultra [...] 09/06/20 10:59:00 EDT, Route to Pharmacy Electronically, [facility], 167, cm, 10/26/19 9:29:00 EDT, Height, 85.8, kg, 04/27/19 11:30:00 EST, Dry Weight Start Date: 09/06/20 Status: Ordered rosuvastatin 10 mg oral tablet 1 tablet = 10 mg, By Mouth, Daily, # 90 tablet, 1 Refills, Maintenance, 07/31/20 12:53:00 EDT, Tablet, [facility], 167, cm, 10/26/19 9:29:00 EDT, [...]
--- OUTSIDE RECORDS SUMMARY | 2023-06-25 02:49 | XMS_ITS | Continuity of Care Document ---
Author Organization [facility] Adult Address [address] [place] [address]- Care Team Providers Care Composition Floor Setter Name Role Phone Shivani IBARRA, Yoel Primary Care Physician [place] [facility] [place] 10/26/19 - 11/02/19 [facility] Adult [address] [place] [address]- [facility] Encounter Diagnosis Anxiety and depression(Discharge Diagnosis) - 10/26/19 Asthma(Discharge Diagnosis) - 10/26/19 CKD (chronic kidney disease)(Discharge Diagnosis) - 10/26/19 DM (diabetes mellitus)(Discharge Diagnosis) - 10/26/19 Hyperlipidemia(Discharge Diagnosis) - 10/26/19 Attending Physician: Shivani IBARRA, [facility] Allergies, Adverse Reactions, Alerts Substance Reaction Severity [...] 5 09/14/16 Recorded 1Result Comment: [facility] [place] [id number] 2Result Comment: [facility] [place] 2[place] [id number] 3Result Comment: [facility] [phone] 4[facility]: [facility] Medications aspirin 81 mg oral delayed release tablet 81 mg, 1, tablet, By Mouth, Daily, # 90 tablet, Refills 2, Tot. 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, # 30 capsule, Refills 5, [...] a day, PRN as needed for anxiety, REINFORCER CHECKED, # 90 tablet, 0 Refills, Maintenance, [...] Maintenance, 10/27/19 13:03:00 EDT, ECCapsule, [facility], Rx resent from 09/20/19., 167, cm, 10/26/19 9:29:00 EDT, Height, 85.8, kg, 04/27/19 11:30:00 EST, Dry Weight Start Date: 10/27/19 Stop Date: 01/25/20 Status: Ordered Paxil 30 mg oral tablet 1 tablet = 30 mg, By Mouth, 2 times a day, # 180 tablet, 1 Refills, Maintenance, 03/22/19 10:29:00 EST, Tablet, [facility], 168, cm, 11/18/18 11:57:00 EDT, Height Start Date: 03/22/19 Stop Date: 09/18/19 Status: Ordered Pen [place], 30 G x 8 mm BD Ultra [...] 10/03/19 14:47:00 EDT, Route to Pharmacy Electronically, [facility], 167, cm, 04/29/19 6:24:00 EST, [...] Service Informant Anxiety and depression Discharge Diagnosis 10/26/19 Asthma Discharge Diagnosis 10/26/19 CKD (chronic kidney disease) Discharge Diagnosis 10/26/19 DM (diabetes mellitus) Discharge Diagnosis 10/26/19 Hyperlipidemia Discharge Diagnosis 10/26/19 Vital Signs Most recent to oldest [Reference Range]: 1 Height 167 cm (10/26/19 9:29 AM) Social History Social History Type Response Smoking Status Former smoker; Tobac co user in household: No entered on: 08/07/16 Sex
--- OUTSIDE RECORDS SUMMARY | 2023-06-25 02:49 | XMS_ITS | Continuity of Care Document ---
Author Organization [facility] Adult Address [address] [place] [address]- Care Team Providers Care Police Guard Name Role Phone Shivani IBARRA, [facility] Primary Care Physician En[place] [facility] [place] Date(s): 08/17/21 - 09/16/21 [facility] [address] [place] [address]- Allergies, Adverse Reactions, Alerts Substance Reaction Severity [...] 09/14/16 Recorded 1Result Comment: [facility] [phone] 2Result Comment: [facility] [phone] 3Result Comment: [facility] [id number] [phone] 4Admin [facility]: [facility] [...] Weight Start Date: 03/22/21 Status: Ordered Pen [place], 31 G x 8 mm BD Ultra [...] 03/22/21 10:20:00 EST, Route to Pharmacy Electronically, [facility], 167, cm, 03/22/21 9:18:00 EST, Height, 85.8, kg, 0... Start Date: 03/22/21 Stop Date: 03/17/22 Status: Ordered rosuvastatin 10 mg oral tablet 1 tablet = 10 mg, By Mouth, Daily, # 90 tablet, 3 Refills, Maintenance, 04/27/21 12:53:00 EST, Tablet, [facility], 167, cm, 03/22/21 9:18:00 EST, Height, 85.8, kg, 04/27/19 11:30:00 EST, Dry Weight Start Date: 04/27/21 Status: Ordered Ventolin HFA 108 mcg/inh inhalation aerosol with adapter 2 puffs, Inhalation, 4 times a day, PRN for wheezing, # 18 Gm, 3 Refills, Maintenance, 06/26/21 14:48:00 EDT, Aerosol, [facility], 167, cm, 04/19/21 11:50:00 EST, [...]
--- OUTSIDE RECORDS SUMMARY | 2023-06-25 02:49 | XMS_ITS | Continuity of Care Document ---
Author Organization [facility] Address [address] [place] [address]- Care Team Providers Care Meat Stringer Name Role Phone Yoel Parrish MD Primary Care Physician [place] [facility] [place] 03[place]29/21 [facility] [address] [place] [address]- Encounter Diagnosis Anxiety and depression(Discharge Diagnosis) - 03/22/21 DM (diabetes mellitus)(Discharge Diagnosis) - 03/22/21 CKD (chronic kidney disease)(Discharge Diagnosis) - 03/22/21 Asthma(Discharge Diagnosis) - 03/22/21 Hyperlipidemia(Discharge Diagnosis) - 03/22/21 Attending Physician: [facility]aspal [facility]rish [facility] Allergies, Adverse Reactions, Alerts Substance Reaction Severity [...] 13-valent vaccine 5 09/14/16 Recorded 1Result Comment: [facility] [id number] 2Result Comment: [facility] [phone] 3Result Comment: [facility] [phone] 4Admin Note: [facility] [...] # 90 capsule, 0 Refills, Hard Stop 04/14/21 8:29:00 EST, 01/14/21 8:29:00 EST, EC Capsule, [facility], 167, cm, 10/26/19 9:29:00 EDT,Height, 85.8, kg, 04/27/19 11:30:00 EST, Dry Weight Start Date: 01/14/21 Stop Date: 04/14/21 Status: Ordered omeprazole 20 mg oral enteric [...] Weight Start Date: 03/22/21 Status: Ordered Pen [place], 31 G x 8 mm BD Ultra [...] EST, Route to Pharmacy Electronically, [facility], 167, cm, 03/22/21 9:18:00 EST, [...] Service Informant Anxiety and depression Discharge Diagnosis 03/22/21 DM (diabetes mellitus) Discharge Diagnosis 03/22/21 CKD (chronic kidney disease) Discharge Diagnosis 03/22/21 Asthma Discharge Diagnosis 03/22/21 Hyperlipidemia Discharge Diagnosis 03/22/21 Vital Signs Most recent to oldest [Reference Range]: 1 Height 167 cm (1/21/22 9:18 AM) Weight 77.27 kg (03/22/21 9:18 AM) Body Mass Index [18.5-24.99] 27.71 *H* (03/22/21 9:18 AM) Weight Obtained Via Patient/family state d (03/22/21 9:18 AM) Social History Social History Type Response Smoking Status Former smoker; Tobac co user in household: No entered on: 08/07/16 Sex
--- OUTSIDE RECORDS SUMMARY | 2023-06-25 02:49 | XMS_ITS | Continuity of Care Document ---
Author Organization [facility] [place] [facility] Address [address] [place] [address]- Care Team Providers Care Livestock Nutritionist Name Role Phone Shivani IBARRA, [facility] Primary Care Physician Encounter [facility] Date(s): 03/24/23 - 04/23/23 [facility] [place] [facility] [address] [place] [address] Allergies, Adverse Reactions, Alerts Substance Reaction Severity [...] 13-valent vaccine 5 09/14/16 Recorded 1Result Comment: [facility] [id number] 2Result Comment: [facility] [phone] 3Result Comment: [facility] [phone] 4Admin Note: [facility] [...] EST, Route to Pharmacy Electronically, [facility], 167, cm, 08/29/21 9:11:00 EDT, Height Start Date: 03/24/23 Status: Ordered Januvia 100 mg oral tablet 1 tablet, By Mouth, Daily, # 90 tablet, 0 Refills, Maintenance, 03/13/23 9:11:00 EST, [facility], 167, cm, 08/29/21 9:11:00 EDT, [...] mL, 3 Refills, Maintenance, 04/24/22 10:40:00 EST, [facility], 167, cm, 08/29/21 9:11:00 EDT, Height Start Date: 04/24/22 Status: Ordered LORazepam 1 mg oral tablet 1 tablet = 1 mg, By Mouth, 3 times a day, PRN as needed for anxiety, # 90 tablet, 3 Refills, Maintenance, 03/09/23 14:28:00 EST, Tablet, [facility], 167, cm, 08/29/21 9:11:00 EDT, [...] Height Start Date: 03/24/23 Status: Ordered Pen [place], 31 G x 8 mm BD Ultra [...] EST, Route to Pharmacy Electronically, [facility], 167, cm, 08/29/21 9:11:00 EDT, [...] Team Personnel Name: Yoel Parrish MD Position: [facility] Physician - Primary Care Member Role: PCP Address: Address: [address] [facility] 3rd [place] [address]- Care Team Related Persons Name: CHAGO MEDRANO Address: home [address] [place] [address] Name: SUNIL TEMPLETON Address: home [address] [place] [address], [address] [address]
--- OUTSIDE RECORDS SUMMARY | 2023-06-25 02:49 | XMS_ITS | Continuity of Care Document ---
Author Organization [facility] Adult Address [address] [place] [address]- Care Team Providers Care Check Grader Name Role Phone Shivani IBARRA, [facility] Primary Care Physician [place] [facility] [place]04[place]19 - 12/04/19 [facility] Adult [address] [place] [address] [facility] Allergies, Adverse Reactions, Alerts Substance Reaction Severity [...] 13-valent vaccine 5 09/14/16 Recorded 1Result Comment: [facility] [id number] 2Result Comment: [facility] [phone] 3Result Comment: [facility] [phone] 4Admin [facility]: [facility] Medications aspirin 81 mg oral delayed release tablet 81 mg, 1, tablet, By Mouth, Daily, # 90 tablet, Refills 2, Tot. Refills 2, Maintenance, 07/12/19 10:12:05 EDT, Route to Pharmacy Electronically, [id number], [facility] Start Date: [...] a day, PRN as needed for anxiety, CRM MARKETING EXECUTIVE CHECKED, # 90 tablet, 0 Refills, Maintenance, [...] # 3,060 Gm, 1 Refills, Hard Stop 02/04/20 9:51:00 EST, 08/08/19 9:51:00 EDT, REC Powder, [facility], 167, cm, 04/29/19 6:24:00 EST, Height, 85.8, kg, 04/27/19... Start Date: 08/08/19 Stop Date: 02/04/20 Status: Ordered MiraLax oral powder for reconstitution = 17 Gm, By Mouth, 2 times a day, dissolve in water before taking, # 3,060 Gm, 1 Refills, Maintenance, 02/04/20 9:51:00 EST, REC Powder, [facility], 17 Gm By Mouth 2 times a day,x90 days,Instr:dissolve in water before taking, 167, cm, ... Start Date: 02/04/20 Stop Date: 08/02/20 Status: Ordered omeprazole 20 mg oral enteric coated capsule 1 capsule = 20 mg, By Mouth, Daily, # 90 capsule, 0 Refills, Maintenance, 10/27/19 13:03:00 EDT, ECCapsule, [facility], Rx resent from 09/20/19., 167, cm, 10/26/19 9:29:00 EDT, Height, 85.8, kg, 04/27/19 11:30:00 EST, Dry Weight Start Date: 10/27/19 Stop Date: 01/25/20 Status: Ordered Paxil 30 mg oral tablet 1 tablet = 30 mg, By Mouth, 2 times a day, # 180 tablet, 1 Refills, Maintenance, 11/04/19 12:38:00 EDT, Tablet, [facility], 167, cm, 10/26/19 9:29:00 EDT, Height, 85.8, kg, 04/27/19 11:30:00 EST, Dry Weight Start Date: 11/04/19 Stop Date: 05/02/20 Status: Ordered Pen [place], 30 G x 8 mm BD Ultra [...] tablet, Refills 2, Tot. Refills 2, Maintenance, 12/03/19 8:42:00 EDT, Route to Pharmacy Electronically, [facility], 167, cm, 10/26/19 9:29:00 EDT, Height, 85.8, kg, 04/27/19 11:30:00 EST, Dry Weight Start Date: 12/03/19 Status: Ordered rosuvastatin 10 mg oral tablet [...]
--- OUTSIDE RECORDS SUMMARY | 2023-06-25 02:49 | XMS_ITS | Continuity of Care Document ---
Author Organization [facility] Adult Address [address] [place] [address]- Care Team Providers Care Cutlery Grinder Name Role Phone Shivani IBARRA, [facility] Primary Care Physician ( [phone] Encounter [facility] [place] Date(s): 04/16/21 - 05/16/21 [facility] Adult [address] [place] [address]- [place] Allergies, Adverse Reactions, Alerts Substance Reaction Severity [...] 09/14/16 Recorded 1Result Comment: [facility] [id number] 2Result Comment: [facility] [phone] 3Result Comment: [facility] [phone] 4Admin Note: [facility] [...] EST, Route to Pharmacy Electronically, [facility], Partial fill upon patient request [...] Weight Start Date: 03/22/21 Status: Ordered Pen [place], 31 G x 8 mm BD Ultra [...] 03/22/21 10:20:00 EST, Route to Pharmacy Electronically, [facility], 167, cm, 03/22/21 9:18:00 EST, Height, 85.8, kg, 0... Start Date: 03/22/21 Stop Date: 03/17/22 Status: Ordered rosuvastatin 10 mg oral tablet 1 tablet = 10 mg, By Mouth, Daily, # 90 tablet, 3 Refills, Maintenance, 04/27/21 12:53:00 EST, Tablet, [facility], 167, cm, 03/22/21 9:18:00 EST, Height, 85.8, kg, 04/27/19 11:30:00 EST, Dry Weight Start Date: 04/27/21 Status: Ordered Ventolin HFA 108 mcg/inh inhalation aerosol with adapter 2 puffs, Inhalation, 4 times a day, PRN for wheezing, # 18 Gm, 3 Refills, Maintenance, 03/22/21 10:21:00 EST, Aerosol, [facility], 167, cm, 03/22/21 9:18:00 EST, [...]
--- OUTSIDE RECORDS SUMMARY | 2023-06-25 02:49 | XMS_ITS | Continuity of Care Document ---
Author Organization [facility] Adult Address [address] [place] [address]- Care Team Providers Care Push Button Switch Assembler Name Role Phone Yoel Parrish MD Primary Care Physician [place] [facility] [place]21 [facility] Adult [address] [place] [address]- [place] Attending Physician: Yoel Parrish MD Allergies, Adverse [...] vaccine 5 09/14/16 Recorded 1Result Comment: [facility] [phone] 2Result Comment: [facility] [phone] 3Result Comment: [facility] [phone] 4Admin Note: [facility] [...] EST, Route to Pharmacy Electronically, [facility], Partial fill upon patient request [...] Weight Start Date: 03/22/21 Status: Ordered Pen [place], 31 G x 8 mm BD Ultra [...] 03/22/21 10:20:00 EST, Route to Pharmacy Electronically, [facility], 167, cm, 03/22/21 9:18:00 EST, Height, 85.8, kg, 0... Start Date: 03/22/21 Stop Date: 03/17/22 Status: Ordered rosuvastatin 10 mg oral tablet 1 tablet = 10 mg, By Mouth, Daily, # 90 tablet, 3 Refills, Maintenance, 04/27/21 12:53:00 EST, Tablet, [facility], 167, cm, 03/22/21 9:18:00 EST, Height, 85.8, kg, 04/27/19 11:30:00 EST, Dry Weight Start Date: 04/27/21 Status: Ordered Ventolin HFA 108 mcg/inh inhalation aerosol with adapter 2 puffs, Inhalation, 4 times a day, PRN for wheezing, # 18 Gm, 3 Refills, Maintenance, 03/22/21 10:21:00 EST, Aerosol, [facility], 167, cm, 03/22/21 9:18:00 EST, [...]
--- OUTSIDE RECORDS SUMMARY | 2023-06-25 02:49 | XMS_ITS | Continuity of Care Document ---
Author Organization [facility] Adult Address [address] [place] [address]- Care Team Providers Care Obgyn Hospitalist Physician Name Role Phone Shivani IBARRA, [facility] Primary [facility] Physician En[facility] [place] Date(s): 08/22/21 - 09/28/21 [facility] Adult [address] [place] [address]- Attending Physician: Haleigh RECRUITING MANAGER, Lilliam Canales Allergies, Adverse Reactions, Alerts Substance [...] vaccine 5 09/14/16 Recorded 1Result Comment: [facility] [phone] 2Result Comment: [facility] [phone] 3Result Comment: [facility] [id number] [phone] 4Admin Note: [facility] [...] Weight Start Date: 03/22/21 Status: Ordered Pen [place], 31 G x 8 mm BD Ultra [...] 03/22/21 10:20:00 EST, Route to Pharmacy Electronically, [facility], 167, cm, 03/22/21 9:18:00 EST, Height, 85.8, kg, 0... Start Date: 03/22/21 Stop Date: 03/17/22 Status: Ordered rosuvastatin 10 mg oral tablet 1 tablet = 10 mg, By Mouth, Daily, # 90 tablet, 3 Refills, Maintenance, 04/27/21 12:53:00 EST, Tablet, [facility], 167, cm, 03/22/21 9:18:00 EST, Height, 85.8, kg, 04/27/19 11:30:00 EST, Dry Weight Start Date: 04/27/21 Status: Ordered Ventolin HFA 108 mcg/inh inhalation aerosol with adapter 2 puffs, Inhalation, 4 times a day, PRN for wheezing, # 18 Gm, 5 Refills, Maintenance, 09/17/21 7:00:00 EDT, Aerosol, [facility], 167, cm, 08/29/21 9:11:00 EDT, [...]
--- OUTSIDE RECORDS SUMMARY | 2023-06-25 02:49 | XMS_ITS | Continuity of Care Document ---
Author Organization [facility] Adult Address [address] [place] [address]- Care Team Providers Care Poultry Slaughterer Name Role Phone Shivani IBARRA, [facility] Primary Care Physician [place] [facility] [place] Date(s): 10/26/19 - 11/25/19 [facility] Adult [address] [place] [address]- [facility] Attending Physician: Samara Lubin Admitting Physician: Samara [...] 13-valent vaccine 5 09/14/16 Recorded 1Result Comment: [facility] [id number] 2Result Comment: [facility] [phone] 3Result Comment: [facility] [id number] [phone] 4Admin [facility]: [facility] 5[facility] History: [facility] Medications aspirin 81 mg oral delayed release tablet 81 mg, 1, tablet, By Mouth, Daily, # 90 tablet, Refills 2, Tot. Refills 2, Maintenance, 07/12/19 10:12:05 EDT, Route to Pharmacy Electronically, [id number], [facility] Start Date: 07/12/19 Stop Date: 04/07/20 Status: Ordered Flovent HFA 110 mcg/inh inhalation aerosol 2 puffs, Inhalation, 2 times a day, # 12 Gm, 5 Refills, Maintenance, 07/07/19 11:35:00 EDT, Aerosol, [facility], 167, cm, 04/29/19 6:24:00 EST, [...] EDT, Route to Pharmacy Electronically, [facility], 167, cm, 10/26/19 9:29:00 EDT, [...] a day, PRN as needed for anxiety, RECEIVING MANAGER CHECKED, # 90 tablet, 0 Refills, Maintenance, [...] 11/04/19 Stop Date: 05/02/20 Status: Ordered Pen [place], 30 G x 8 mm BD Ultra [...] 10/03/19 14:47:00 EDT, Route to Pharmacy Electronically, [facility] [...]
--- OUTSIDE RECORDS SUMMARY | 2023-06-25 02:49 | XMS_ITS | Continuity of Care Document ---
Author Organization [facility] Address [address] [place] [address]- Care Team Providers Care Freight Engineer Name Role Phone Shivani IBARRA, Yoel Primary Care Physician En[place] [facility] [place] Date(s): 08/29/19 - 09/28/[address] [address]- [facility] Attending Physician: Admcarina, Tarun8 Admitting Physician: [...] 13-valent vaccine 5 09/14/16 Recorded 1Result Comment: [facility] [id number] 2Result Comment: [facility] [phone] 3Result Comment: [facility] [id number] [phone] 4Admin Note: [facility] 5Location History: [facility] Medications aspirin 81 mg oral delayed release tablet 81 mg, 1, tablet, By Mouth, Daily, # 90 tablet, Refills 2, Tot. Refills 2, Maintenance, 07/12/19 10:12:05 EDT, Route to Pharmacy Electronically, [id number], [facility] Start Date: [...] 100 mg, 1, capsule, By Mouth, Daily, home care assistant reviewed 01/26/2019, # 30 capsule, Refills [...] a day, PRN as needed for anxiety, DIRECTOR OF HOTEL CHECKED, # 90 tablet, 0 Refills, Maintenance, 09/06/19 17:35:00 EDT, Tablet, [facility], 167, cm, 04/29/19 6:24:00 EST, Height, 85.8, kg, 04/27/19 11:30:00 EST, Dry... Start Date: 09/06/19 Stop Date: 10/06/19 Status: Ordered metFORMIN 1000 mg oral tablet [...] 03/22/19 Stop Date: 09/18/19 Status: Ordered Pen [place], 30 G x 8 mm BD Ultra [...] tablet, Refills 1, Tot. Refills 1, Maintenance, 08/08/19 9:54:00 EDT, Route to Pharmacy Electronically, [facility], 167, cm, 04/29/19 6:24:00 EST, Height, 85.8, kg, 04/27/19 11:30:00 EST, Dry Weight Start Date: 08/08/19 Status: Ordered rosuvastatin 10 mg oral tablet [...]
--- OUTSIDE RECORDS SUMMARY | 2023-06-25 02:49 | XMS_ITS | Continuity of Care Document ---
Author Organization [facility] Adult Address [address] [place] [address]- Care Team Providers Care Aircraft Assembler Name Role Phone Shivani IBARRA, [facility] Primary Care Physician [place] [facility] [place] 09/06/20 - 10/06/20 [facility] Adult [address] [place] [address]- Allergies, Adverse Reactions, Alerts Substance Reaction Severity [...] Comment: [facility] [id number] 2Result Comment: [facility] 62055-679-92 3Result Comment: [facility] [id number] 4Admin Note: [facility] [...] 07/12/20 10:43:00 EDT, EC Capsule, [facility], 167, cm, 10/26/19 9:29:00 EDT, [...] 05/03/20 Stop Date: 10/30/20 Status: Ordered Pen [place], 31 G x 8 mm BD Ultra [...] 09/06/20 10:59:00 EDT, Route to Pharmacy Electronically, [facility], 167, cm, 10/26/19 9:29:00 EDT, Height, 85.8, kg, 04/27/19 11:30:00 EST, Dry Weight Start Date: 09/06/20 Status: Ordered rosuvastatin 10 mg oral tablet 1 tablet = 10 mg, By Mouth, Daily, # 90 tablet, 1 Refills, Maintenance, 07/31/20 12:53:00 EDT, Tablet, [facility], 167, cm, 10/26/19 9:29:00 EDT, [...]
--- OUTSIDE RECORDS SUMMARY | 2023-06-25 02:49 | XMS_ITS | Continuity of Care Document ---
Author Organization [facility] Adult Address [address] [place] [address]- Care Team Providers Care Bumper Straightener Name Role Phone Shivani IBARRA, [facility] Primary Care Physician Encounter [facility] [place] Date(s): 07/17/22 - 08/16/22 [facility] Adult [address] [place] [address]- Allergies, Adverse Reactions, Alerts Substance Reaction Severity [...] 13-valent vaccine 5 09/14/16 Recorded 1Result Comment: [facility] [phone] 2Result Comment: [facility] [phone] 3Result Comment: [facility] [id number] 4Admin Note: [facility] [...] EST, Route to Pharmacy Electronically, [facility], Partial fill upon patient request [...] Height Start Date: 03/27/22 Status: Ordered Pen [place], 31 G x 8 mm BD Ultra [...] Team Personnel Name: Yoel Parrish MD Position: [facility] Physician - Primary Care Member Role: PCP Address: Address: [address] [place] [address] [address]rd [place] [address]- Name: Sandra Conteh Position: [facility] TA Member Role: Lifetime Consulting Physician Care Team Related Persons Name: CHAGO MEDRANO Address: home [address] [place] [address] Name: SUNIL TEMPLETON Address: home [address] [facility], [address] [address]
--- OUTSIDE RECORDS SUMMARY | 2023-06-25 02:49 | XMS_ITS | Continuity of Care Document ---
Author Organization [facility] Adult Address [address] [place] [address]- Care Team Providers Care Diesel Retrofit Designer Name Role Phone Shivani IBARRA, [facility] Primary Care Physician En[facility] [place] Date(s): 09/20/19 - 10/20/19 [facility] Adult [address] [place] [address]- [facility] Allergies, Adverse Reactions, Alerts Substance Reaction Severity [...] 09/14/16 Recorded 1Result Comment: [facility] [id number] 2Result Comment: [facility] [phone] 3Result Comment: [facility] [id number] 4Admin Note: [facility] 5Location [facility]: [facility] Medications aspirin 81 mg oral delayed release tablet 81 mg, 1, tablet, By Mouth, Daily, # 90 tablet, Refills 2, Tot. Refills 2, Maintenance, 07/12/19 10:12:05 EDT, Route to Pharmacy Electronically, [id number], [facility] Start Date: [...] 100 mg, 1, capsule, By Mouth, Daily, restaurant mgr reviewed 01/26/2019, # 30 capsule, Refills 5, [...] a day, PRN as needed for anxiety, ELECTROGALVANIZING MACHINE OPERATOR CHECKED, # 90 tablet, 0 Refills, Maintenance, [...] 1 Refills, Maintenance, 03/22/19 10:29:00 EST, Tablet, [facility], 168, cm, 11/18/18 11:57:00 EDT, Height Start Date: 03/22/19 Stop Date: 09/18/19 Status: Ordered Pen [place], 30 G x 8 mm BD Ultra [...] 10/03/19 14:47:00 EDT, Route to Pharmacy Electronically, [facility], 167, cm, 04/29/19 6:24:00 EST, [...]
--- OUTSIDE RECORDS SUMMARY | 2023-06-25 02:49 | XMS_ITS | Continuity of Care Document ---
Author Organization [facility] Adult Address [address] [place] [address]- Care Team Providers Care Fittings Tightener Name Role Phone Shivani IBARRA, [facility] Primary Care Physician ( [phone] [place] [facility] [place] 11/21/20 - 12/21/20 [facility] Adult [address] [place] [address]- Attending Physician: Samara Lubin Admitting Physician: AdmSamara [...] 09/14/16 Recorded 1Result Comment: [facility] [id number] 2Result Comment: [facility] [id number] 3Result Comment: [facility] [id number] 4Admin Note: [facility] [...] days,Instr:dissolve in water before taking, 167, cm, 08/... Start Date: 10/30/20 Stop Date: 04/28/21 Status: [...] A DAY, # 180 tablet, 0 Refills, [facility], 167, cm, 10/26/19 9:29:00 EDT, Height, 85.8, kg, 04/27/19 11:30:00 EST, Dry Weight Start Date: 11/13/20 Status: Ordered Pen [place], 31 G x 8 mm BD Ultra [...] Replace Required Details, Route to Pharmacy Electronically, [facility], 167, cm, 10/26/19 [...]
--- OUTSIDE RECORDS SUMMARY | 2023-06-25 02:49 | XMS_ITS | Continuity of Care Document ---
Author Organization [facility] Adult Address [address] [place] [address]- Care Team Providers Care Kinesiology Professor Name Role Phone Shivani IBARRA, Yoel Primary Care Physician ( [phone] [place] [facility] [place] 05/22[place]21 - 09/19/21 [facility] Adult [address] [place] [address]- Attending Physician: Yoel Parrish MD Allergies, Adverse [...] Recorded 1Result Comment: [facility] [phone] 2Result Comment: [facility] [phone] 3Result Comment: [facility] [id number] 4Admin Note: [facility] [...] Weight Start Date: 03/22/21 Status: Ordered Pen [place], 31 G x 8 mm BD Ultra [...] 03/22/21 10:20:00 EST, Route to Pharmacy Electronically, [facility], 167, cm, 03/22/21 9:18:00 EST, Height, 85.8, kg, 0... Start Date: 03/22/21 Stop Date: 03/17/22 Status: Ordered rosuvastatin 10 mg oral tablet 1 tablet = 10 mg, By Mouth, Daily, # 90 tablet, 3 Refills, Maintenance, 04/27/21 12:53:00 EST, Tablet, [facility], 167, cm, 03/22/21 9:18:00 EST, Height, 85.8, kg, 04/27/19 11:30:00 EST, Dry Weight Start Date: 04/27/21 Status: Ordered Ventolin HFA 108 mcg/inh inhalation aerosol with adapter 2 puffs, Inhalation, 4 times a day, PRN for wheezing, # 18 Gm, 5 Refills, Maintenance, 09/17/21 7:00:00 EDT, Aerosol, [facility], 167, cm, 08/29/21 9:11:00 EDT, [...]
--- OUTSIDE RECORDS SUMMARY | 2023-06-25 02:50 | XMS_ITS | Continuity of Care Document ---
Author Organization [facility] Address [address] [place] [address]- Care Team Providers Care Wet End Supervisor Name Role Phone Yoel Parrish MD Primary Care Physician [place] [facility] [place] 08/23/19 - 09/28/19 [facility] [address] [address]- [facility] Attending Physician: Yoel Parrish MD Admitting Physician: [...] 13-valent vaccine 5 09/14/16 Recorded 1Result Comment: [facility] [phone] 2Result Comment: [facility] [phone] 3Result Comment: [facility] [id number] [phone] 4Admin Note: [facility] 5Location History: [facility] Medications aspirin 81 mg oral delayed release tablet 81 mg, 1, tablet, By Mouth, Daily, # 90 tablet, Refills 2, Tot. Refills 2, Maintenance, 07/12/19 10:12:05 EDT, Route to Pharmacy Electronically, [id number], [facility] Start Date: [...] 100 mg, 1, capsule, By Mouth, Daily, extended insurance clerk reviewed 01/26/2019, # 30 capsule, Refills 5, [...] a day, PRN as needed for anxiety, PROCESS MANUFACTURING ENGINEER CHECKED, # 90 tablet, 0 Refills, Maintenance, [...] 03/22/19 Stop Date: 09/18/19 Status: Ordered Pen [place], 30 G x 8 mm BD Ultra [...]
--- OUTSIDE RECORDS SUMMARY | 2023-06-25 02:50 | XMS_ITS | Continuity of Care Document ---
Author Organization [facility] Adult Address [address] [place] [address]- Care Team Providers Care Box Packer Name Role Phone Shivani IBARRA, [facility] Primary Care Physician En[place] [facility] [place] Date(s): 09/06/19 - 10/06/19 [facility] Adult [address] [place] [address]- [facility] Allergies, Adverse Reactions, Alerts Substance Reaction [...] 13-valent vaccine 5 09/14/16 Recorded 1Result Comment: [facility] [phone] 2Result Comment: [facility] [phone] 3Result Comment: [facility] [id number] [phone] 4Admin Note: [facility] 5Location History: [facility] Medications aspirin 81 mg oral delayed release tablet 81 mg, 1, tablet, By Mouth, Daily, # 90 tablet, Refills 2, Tot. Refills 2, Maintenance, 07/12/19 10:12:05 EDT, Route to Pharmacy Electronically, [id number], [facility] Start Date: [...] 100 mg, 1, capsule, By Mouth, Daily, reservations clerk reviewed 01/26/2019, # 30 capsule, Refills [...] a day, PRN as needed for anxiety, MARINE DESIGN ENGINEER CHECKED, # 90 tablet, 0 Refills, [...] 1 Refills, Maintenance, 03/22/19 10:29:00 EST, Tablet, [facility], 168, cm, 11/18/18 11:57:00 EDT, Height Start Date: 03/22/19 Stop Date: 09/18/19 Status: Ordered Pen [place], 30 G x 8 mm BD Ultra [...] 10/03/19 14:47:00 EDT, Route to Pharmacy Electronically, [facility], 167, cm, 04/29/19 6:24:00 EST, Height, 85.8, kg, 04/27/19 11:30:00 EST, Dry Weight Start Date: 10/03/19 Status: Ordered rosuvastatin 10 mg oral tablet 1 tablet = 10 mg, By Mouth, Daily, # 30 tablet, 11 Refills, Maintenance, 03/23/19 9:46:00 EST, Tablet, [facility], 168, cm, 03/23/19 [...]
--- OUTSIDE RECORDS SUMMARY | 2023-06-25 02:50 | XMS_ITS | Continuity of Care Document ---
Author Organization [facility] Adult Address [address] [place] [address]- Care Team Providers Care Batch Dumper Name Role Phone Shivani IBARRA, [facility] Primary Care Physician Encounter [facility] Date(s): 03/09/23 - 04/08/23 [facility] Adult [address] [place] [address] Allergies, Adverse Reactions, Alerts Substance Reaction Severity [...] vaccine 5 09/14/16 Recorded 1Result Comment: [facility] [id number] 2Result Comment: [facility] [phone] 3Result Comment: [facility] [id number] [phone] 4Admin Note: [facility] [...] Maintenance, 03/24/2415:53:00 EST, Route to Pharmacy Electronically, [facility], 167, cm, 08/29/21 9:11:00 EDT, Height Start Date: 03/24/23 Status: Ordered Januvia 100 mg oral tablet 1 tablet, By Mouth, Daily, # 90 tablet, 0 Refills, Maintenance, 03/13/23 9:11:00 EST, [facility], 167, cm, 08/29/21 9:11:00 EDT, Height Start Date: 03/13/23 Status: Ordered Lantus Solostar Pen 100 units/mL subcutaneous solution See Instructions, INJECT SUBCUTANEOUSLY 15 UNITS DAILY AT BEDTIME., # 15 mL, 3 Refills, Maintenance, 03/24/23 16:52:00 EST, [facility], 167, cm, 08/29/21 9:11:00 EDT, Height Start Date: 03/24/23 Status: Ordered Lantus Solostar Pen 100 units/mL subcutaneous solution See Instructions, INJECT SUBCUTANEOUSLY 15 UNITS DAILY AT BEDTIME., # 15 mL, 3 Refills, Maintenance, 04/24/22 10:40:00 EST, [facility], 167, cm, 08/29/21 9:11:00 EDT, Height Start Date: 04/24/22 Status: Ordered LORazepam 1 mg oral tablet 1 tablet = 1 mg, By Mouth, 3 times a day, PRN as needed for anxiety, # 90 tablet, 3 Refills, Maintenance, 03/09/23 14:28:00 EST, Tablet, [facility], 167, cm, 08/29/21 9:11:00 EDT, [...] Height Start Date: 03/24/23 Status: Ordered Pen [place], 31 G x 8 mm BD Ultra [...] EST, Route to Pharmacy Electronically, [facility], 167, cm, 08/29/21 9:11:00 EDT, [...] Care team information Care Team Personnel Name: Shivani IBARRA, Yoel Position: [facility] Physician - Primary Care Member Role: PCP Address: Address: [address] [facility] 3rd [place] [address]- Care Team Related Persons Name: CHAGO MEDRANO Address: home [address] [place] [address] Name: SUNIL TEMPLETON Address: home [address] [place] [address], [address] [address]
--- OUTSIDE RECORDS SUMMARY | 2023-06-25 02:50 | XMS_ITS | Continuity of Care Document ---
Author Organization [facility] Adult Address [address] [place] [address]- Care Team Providers Care Contract Implementation Analyst Name Role Phone Shivani IBARRA, [facility] Primary Care Physician En[place] [facility] [place] Date(s): 05/13/22 - 06/12/22 [facility] Adult [address] [place] [address]- Allergies, Adverse Reactions, Alerts Substance Reaction Severity [...] 13-valent vaccine 5 09/14/16 Recorded 1Result Comment: [facility] [id number] 2Result Comment: [facility] [phone] 3Result Comment: [facility] [id number] [phone] 4Admin Note: [facility] [...] Date: 08/29/21 Stop Date: 02/25/22 Status: Ordered omeprazole 20 mg oral enteric coated capsule 1 capsule, By Mouth, Daily, # 90 capsule, 0 Refills, Maintenance, 04/04/22 7:44:00 EST, [facility], 167, cm, 08/29/21 9:11:00 EDT, Height Start Date: 04/04/22 Status: Ordered PARoxetine 30 mg oral tablet 1 tablet, By Mouth, 2 times a day, # 180 tablet, 1 Refills, Maintenance, 03/27/22 12:32:00 EST, [facility], 167, cm, 08/29/21 9:11:00 EDT, Height Start Date: 03/27/22 Status: Ordered Pen [place], 31 G x 8 mm BD Ultra [...] Team Personnel Name: Yoel Parrish MD Position: [facility] Primary Care Physician Member Role: PCP Address: Address: [address] [place] [address] 3rd [place] [address]- Name: Sandra Conteh Position: [facility] TA Member Role: Lifetime Consulting Physician Care Team Related Persons Name: CHAGO MEDRANO Address: home [address] [place] [address] Name: USNIL TEMPLETON Address: home [address] [facility], [address] [address]
--- OUTSIDE RECORDS SUMMARY | 2023-06-25 02:50 | XMS_ITS | Continuity of Care Document ---
Author Organization [facility] Adult Address [address] [place] [address]- Care Team Providers Care Oil Pump Station Operator Chief Name Role Phone Shivani IBARRA, [facility] Primary Care Physician En[facility] [place] Date(s): 11/04/19 - 12/04/19 [facility] Adult [address] [place] [address]- [facility] Allergies, Adverse Reactions, Alerts Substance Reaction Severity [...] 09/14/16 Recorded 1Result Comment: [facility] [id number] 2Result Comment: [facility] [id number] 3Result Comment: [facility] [id number] [phone] 4Admin Note: [facility] 5Location History: [facility] Medications aspirin 81 mg oral delayed release tablet 81 mg, 1, tablet, By Mouth, Daily, # 90 tablet, Refills 2, Tot. Refills 2, Maintenance, 07/12/19 10:12:05 EDT, Route to Pharmacy Electronically, [id number], [facility] Start Date: [...] a day, PRN as needed for anxiety, DESK EDITOR CHECKED, # 90 tablet, 0 Refills, Maintenance, [...] Refills, Maintenance, 02/04/20 9:51:00 EST, REC Powder, [facility], 17 Gm By Mouth 2 times a day,x90 days,Instr:dissolve in water before taking, 167, cm, 08... Start Date: 02/04/20 Stop Date: 08/02/20 Status: Ordered omeprazole 20 mg oral enteric coated capsule 1 capsule = 20 mg, By Mouth, Daily, # 90 capsule, 0 Refills, Maintenance, 10/27/19 13:03:00 EDT, ECCapsule, [facility], Rx resent from 09/20/19., 167, cm, 10/26/19 9:29:00 EDT, Height, 85.8, kg, 04/27/19 11:30:00 EST, Dry Weight Start Date: 10/27/19 Stop Date: 01/25/20 Status: Ordered Paxil 30 mg oral tablet 1 tablet = 30 mg, By Mouth, 2 times a day, # 180 tablet, 1 Refills, Maintenance, 11/04/19 12:38:00 EDT, Tablet, [facility], 167, cm, 10/26/19 9:29:00 EDT, Height, 85.8, kg, 04/27/19 11:30:00 EST, Dry Weight Start Date: 11/04/19 Stop Date: 05/02/20 Status: Ordered Pen [place], 30 G x 8 mm BD Ultra [...] 12/03/19 8:42:00 EDT, Route to Pharmacy Electronically, [facility], 167, cm, 10/26/19 9:29:00 EDT, [...]
--- OUTSIDE RECORDS SUMMARY | 2023-06-25 02:50 | XMS_ITS | Continuity of Care Document ---
Author Organization [facility] Adult Address [address] [place] [address]- Care Team Providers Care Cdl Program Coordinator Name Role Phone Shivani IBARRA, [facility] Primary Care Physician ( [phone] Encounter [facility] Date(s): 03/24/23 - 04/23/23 [facility] Adult [address] [place] [address]- Allergies, Adverse Reactions, Alerts Substance Reaction Severity [...] 13-valent vaccine 5 09/14/16 Recorded 1Result Comment: [facility] [id number] 2Result Comment: [facility] [phone] 3Result Comment: [facility] [id number] [phone] 4Admin Note: stop [facility] [...] EST, Route to Pharmacy Electronically, [facility], 167, cm, 08/29/21 9:11:00 EDT, Height Start Date: 03/24/23 Status: Ordered Januvia 100 mg oral tablet 1 tablet, By Mouth, Daily, # 90 tablet, 0 Refills, Maintenance, 03/13/23 9:11:00 EST, [facility], 167, cm, 08/29/21 9:11:00 EDT, [...] mL, 3 Refills, Maintenance, 04/24/22 10:40:00 EST, [facility], 167, cm, 08/29/21 9:11:00 EDT, Height Start Date: 04/24/22 Status: Ordered LORazepam 1 mg oral tablet 1 tablet = 1 mg, By Mouth, 3 times a day, PRN as needed for anxiety, # 90 tablet, 3 Refills, Maintenance, 03/09/23 14:28:00 EST, Tablet, [facility], 167, cm, 08/29/21 9:11:00 EDT, [...] Height Start Date: 03/24/23 Status: Ordered Pen [place], 31 G x 8 mm BD Ultra [...] EST, Route to Pharmacy Electronically, [facility], 167, cm, 08/29/21 9:11:00 EDT, [...] Care Member Role: PCP Address: Address: [address] [facility] 3rd [place] [address]- Care Team Related Persons Name: CHAGO MDERANO Address: home [address] [place] [address] Name: SUNIL TEMPLETON Address: home [address] [place] [address], [address] [address]
--- OUTSIDE RECORDS SUMMARY | 2023-06-25 02:50 | XMS_ITS | Continuity of Care Document ---
Author Organization [facility] Address [address] [place] [address]- Care Team Providers Care Toter Name Role Phone Yoel Parrish MD Primary Care Physician Encounter [facility] Date(s): 09/09/21 - 10/09/[address] [address]- Attending Physician: Samara Lubin Admitting Physician: AdmSamara lim Referring Physician: Admtr, ArStacey Allergies, Adverse Reactions, Alerts Substance Reaction Severity [...] acel(Tdap) 01/05/17 Given pneumococcal 13-valent vaccine 5 7/16/17 Recorded 1Result Comment: [facility] [id number] 2Result Comment: [facility] [phone] 3Result Comment: [facility] [id number] [phone] 4Admin Note: stop [facility] shop [...] EDT, Route to Pharmacy Electronically, [facility], Partial fill upon patient request [...] Weight Start Date: 03/22/21 Status: Ordered Pen [place], 31 G x 8 mm BD Ultra [...] EST, Route to Pharmacy Electronically, [facility], 167, cm, 03/22/21 9:18:00 EST, Height, 85.8, kg, 0... Start Date: 03/22/21 Stop Date: 03/17/22 Status: Ordered rosuvastatin 10 mg oral tablet 1 tablet = 10 mg, By Mouth, Daily, # 90 tablet, 3 Refills, Maintenance, 04/27/21 12:53:00 EST, Tablet, [facility], 167, cm, 03/22/21 9:18:00 EST, Height, 85.8, kg, 04/27/19 11:30:00 EST, Dry Weight Start Date: 04/27/21 Status: Ordered Ventolin HFA 108 mcg/inh inhalation aerosol with adapter 2 puffs, Inhalation, 4 times a day, PRN for wheezing, # 18 Gm, 5 Refills, Maintenance, 09/17/21 7:00:00 EDT, Aerosol, [facility], 167, cm, 08/29/21 9:11:00 EDT, [...]
--- OUTSIDE RECORDS SUMMARY | 2023-06-25 02:50 | XMS_ITS | Continuity of Care Document ---
Author Organization [facility] Adult Address [address] [place] [address]- Care Team Providers Care Cleaning Matron Name Role Phone Shivani IBARRA, [facility] Primary Care Physician Encounter [facility] Date(s): 03/24/23 - 03/31/23 [facility] Adult [address] [place] [address]- Encounter Diagnosis DM (diabetes mellitus)(Discharge Diagnosis) - 03/24/23 Hyperlipidemia(Discharge Diagnosis) - 03/24/23 Anxiety and depression(Discharge Diagnosis) - 03/24/23 Attending Physician: Shivani IBARRA, [facility] Allergies, Adverse Reactions, Alerts Substance Reaction [...] 13-valent vaccine 5 09/14/16 Recorded 1Result Comment: [facility] [id number] 2Result Comment: [facility] [phone] 3Result Comment: [facility] [id number] [phone] 4Admin Note: stop and shop [...] EST, Route to Pharmacy Electronically, [facility], 167, cm, 08/29/21 9:11:00 EDT, [...] Height Start Date: 03/24/23 Status: Ordered Pen [place], 31 G x 8 mm BD [...] Refills, Maintenance, 12/08/22 9:36:00 EDT, [facility], 167, cm, 08/29/21 9:11:00 EDT, [...] steatosis Confirmed Active Gastric regurgitation Confirmed Active Diagnosis Diagnosis Type Effective Dates Health Status Clinical Service Informant DM (diabetes mellitus) Discharge Diagnosis 03/24/23 Hyperlipidemia Discharge Diagnosis 03/24/23 Anxiety and depression Discharge Diagnosis 03/24/23 Social History Social History Type Response Smoking Status Former smoker; Tobac co user in household: No entered on: 08/07/16 Sex Patient Care team information Care Team Personnel Name: Shivani IBARRA, Yoel Position: [facility] Physician - Primary Care Member Role: PCP Address: Address: [address] [place] [address] 3rd [place] [address]- Care Team Related Persons Name: CHAGO MEDRANO Address: home [address] [place] [address] Name: SUNIL TEMPLETON Address: home [address] [facility], [address] [address]
--- OUTSIDE RECORDS SUMMARY | 2023-06-25 02:50 | XMS_ITS | Continuity of Care Document ---
Author Organization [facility] Adult Address [address] [place] [address]- Care Team Providers Care Motorcycle Police Name Role Phone Shivani IBARRA, [facility] Primary Care Physician ( [phone] En[facility] Date(s): 04/03/20 - 05/03/20 [facility] Adult [address] [place] [address]- Allergies, Adverse Reactions, Alerts Substance Reaction Severity [...] 13-valent vaccine 5 09/14/16 Recorded 1Result Comment: [facility] [id number] 2Result Comment: [facility] [phone] 3Result Comment: [facility] [id number] [phone] 4Admin Note: stop and shop [...] 1 Refills, Maintenance, 05/03/20 8:03:00 EST, Tablet, [facility], 167, cm, 10/26/19 9:29:00 EDT, Height, 85.8, kg, 04/27/19 11:30:00 EST, Dry Weight Start Date: 05/03/20 Stop Date: 10/30/20 Status: Ordered Pen [place], 30 G x 8 mm BD Ultra [...] 05/03/20 8:03:00 EST, Route to Pharmacy Electronically, [facility], Office visit needed for further refills. Please call office to schedule an appointment.,... Start Date: 05/03/20 Status: Ordered rosuvastatin 10 mg oral tablet 1 tablet = 10 mg, By Mouth, Daily, # 90 tablet, 1 Refills, Maintenance, 02/02/20 12:53:00 EST, Tablet, [facility], 167, cm, 10/26/19 9:29:00 [...]
--- OUTSIDE RECORDS SUMMARY | 2023-06-25 02:50 | XMS_ITS | Continuity of Care Document ---
Author Organization [facility] Adult Address [address] [place] [address]- Care Team Providers Care Grain Processor Name Role Phone Shivani IBARRA, Yoel Primary Care Physician Encounter [facility] Date(s): 10/24/20 - 02/21/21 [facility] Adult [address] [place] [address]- Attending Physician: Yoel Parrish MD Allergies, Adverse [...] 13-valent vaccine 5 09/14/16 Recorded 1Result Comment: [facility] [id number] 2Result Comment: [facility] [phone] 3Result Comment: [facility] [phone] 4Admin Note: stop and shop [...] Weight Start Date: 01/14/21 Status: Ordered Pen [place], 31 G x 8 mm BD Ultra [...] 0, Route to Pharmacy Electronically, [email or web address], 167, cm, 10/26/19 9:29:00 EDT, Height, 85.8, kg, 04/27/19 11:30:00 EST, Dry Weight Start Date: 02/14/21 Status: Ordered rosuvastatin 10 mg oral tablet 1 tablet = 10 mg, By Mouth, Daily, # 90 tablet, 0 Refills, Maintenance, 01/27/21 12:53:00 EST, Tablet, [email or web address], 167, cm, 10/26/19 9:29:00 EDT, [...]
--- OUTSIDE RECORDS SUMMARY | 2023-06-25 02:50 | XMS_ITS | Continuity of Care Document ---
Author Organization [facility] Adult Address [address] [place] [address]- Care Team Providers Care Mammography Technologist Name Role Phone Shivani IBARRA, Yoel Primary Care Physician Encounter [facility] Date(s): 08/29/21 - 09/05/21 [facility] Adult [address] [place] [address]- Encounter Diagnosis DM (diabetes mellitus)(Discharge Diagnosis) - 08/29/21 Anxiety and depression(Discharge Diagnosis) - 08/29/21 Left hip pain(Discharge Diagnosis) - 08/29/21 Asthma(Discharge Diagnosis) - 08/29/21 Hyperlipidemia(Discharge Diagnosis) - 08/29/21 Attending Physician: Yoel Parrish MD Allergies, Adverse [...] vaccine, inactivated 11/18/18 Recorded pneumococcal 23-valent vaccine 10/22/18 Recorded pneumococcal 23-valent vaccine 4 11/05/16 Given tetanus/diphtheria/pertussis, acel(Tdap) 01/05/17 Given pneumococcal 13-valent vaccine 5 09/14/16 Recorded 1Result Comment: [facility] [id number] 2Result Comment: [facility] [phone] 3Result Comment: [facility] [id number] [phone] 4Admin Note: stop [facility] shop [...] blood sugars 4 times daily Dx: E11.9, 11/18/21 7:48:00 EST, 90 day supply ; please [...] 09/18/21 10:17:00 EDT, Route to Pharmacy Electronically, [facility], Partial fill upon patient request [...] Weight Start Date: 03/22/21 Status: Ordered Pen [place], 31 G x 8 mm BD Ultra [...] 03/22/21 10:20:00 EST, Route to Pharmacy Electronically, [facility], 167, cm, 03/22/21 9:18:00 EST, Height, 85.8, kg, 0... Start Date: 03/22/21 Stop Date: 03/17/22 Status: Ordered rosuvastatin 10 mg oral tablet 1 tablet = 10 mg, By Mouth, Daily, # 90 tablet, 3 Refills, Maintenance, 04/27/21 12:53:00 EST, Tablet, [facility], 167, cm, 03/22/21 9:18:00 EST, Height, 85.8, kg, 04/27/19 11:30:00 EST, Dry Weight Start Date: 04/27/21 Status: Ordered Ventolin HFA 108 mcg/inh inhalation aerosol with adapter 2 puffs, Inhalation, 4 times a day, PRN for wheezing, # 18 Gm, 3 Refills, Maintenance, 06/26/21 14:48:00 EDT, Aerosol, [facility], 167, cm, 04/19/21 11:50:00 EST, [...] Service Informant DM (diabetes mellitus) Discharge Diagnosis 08/29/21 Anxiety and depression Discharge Diagnosis 08/29/21 Left hip pain Discharge Diagnosis 08/29/21 Asthma Discharge Diagnosis 08/29/21 Hyperlipidemia Discharge Diagnosis 08/29/21 Vital Signs Most recent to oldest [Reference Range]: 1 Height 167 cm (08/29/21 9:11 AM) Social History Social History Type Response Smoking Status Former smoker; Tobac co user in household: No entered on: 08/07/16 Sex
--- OUTSIDE RECORDS SUMMARY | 2023-06-25 02:50 | XMS_ITS | Continuity of Care Document ---
Author Organization [facility] Adult Address [address] [place] [address]- Care Team Providers Care Skip Pitman Name Role Phone Shivani IBARRA, [facility] Primary Care Physician En[place] [facility] Date(s): 05/17/20 - 06/16/20 [facility] Adult [address] [place] [address]- Allergies, Adverse Reactions, Alerts Substance Reaction Severity [...] vaccine 5 09/14/16 Recorded 1Result Comment: [facility] [phone] 2Result Comment: [facility] [phone] 3Result Comment: [facility] [id number] [phone] 4Admin Note: stop [facility] shop [...] 05/03/20 Stop Date: 10/30/20 Status: Ordered Pen [place], 30 G x 8 mm BD Ultra [...] 05/03/20 8:03:00 EST, Route to Pharmacy Electronically, [facility], Office visit needed [...]
--- OUTSIDE RECORDS SUMMARY | 2023-06-25 02:50 | XMS_ITS | Continuity of Care Document ---
Author Organization [facility] Adult Address [address] [place] [address]- Care Team Providers Care Master Control Operator Name Role Phone Shivani IBARRA, [facility] Primary Care Physician En[place] [facility] Date(s): 04/16/21 - 05/16/21 [facility] Adult [address] [place] [address]- [place] Allergies, Adverse Reactions, Alerts Substance Reaction [...] Recorded 1Result Comment: [facility] [id number] 2Result Comment: [facility] [phone] 3Result Comment: [facility] [phone] 4Admin Note: stop [facility] shop [...] EST, Route to Pharmacy Electronically, [facility], Partial fill upon patient request [...] Weight Start Date: 03/22/21 Status: Ordered Pen [place], 31 G x 8 mm BD Ultra [...] 03/22/21 10:20:00 EST, Route to Pharmacy Electronically, [facility], 167, cm, 03/22/21 9:18:00 EST, Height, 85.8, kg, 0... Start Date: 03/22/21 Stop Date: 03/17/22 Status: Ordered rosuvastatin 10 mg oral tablet 1 tablet = 10 mg, By Mouth, Daily, # 90 tablet, 3 Refills, Maintenance, 04/27/21 12:53:00 EST, Tablet, [facility], 167, cm, 03/22/21 9:18:00 EST, Height, 85.8, kg, 04/27/19 11:30:00 EST, Dry Weight Start Date: 04/27/21 Status: Ordered Ventolin HFA 108 mcg/inh inhalation aerosol with adapter 2 puffs, Inhalation, 4 times a day, PRN for wheezing, # 18 Gm, 3 Refills, Maintenance, 03/22/21 10:21:00 EST, Aerosol, [facility], 167, cm, 03/22/21 9:18:00 EST, [...]
--- OUTSIDE RECORDS SUMMARY | 2023-06-25 02:50 | XMS_ITS | Continuity of Care Document ---
Author Organization [facility] Adult Address [address] [place] [address]- Care Team Providers Care Nurse Prn Name Role Phone Shivani IBARRA, [facility] Primary Care Physician En[place] [facility] Date(s): 03/22/21 - 04/21/[address] [facility] Adult [address] [place] [address]- [place] Allergies, Adverse Reactions, Alerts Substance Reaction [...] Comment: [facility] [phone] 2Result Comment: [facility] [phone] 3Result Comment: [facility] [phone] 4Admin Note: [facility] [...] EST, Route to Pharmacy Electronically, [facility], Partial fill upon patient request [...] Weight Start Date: 03/22/21 Status: Ordered Pen [place], 31 G x 8 mm BD Ultra [...] 03/22/21 10:20:00 EST, Route to Pharmacy Electronically, [facility], 167, cm, 03/22/21 9:18:00 EST, [...]
--- OUTSIDE RECORDS SUMMARY | 2023-06-25 02:50 | XMS_ITS | Continuity of Care Document ---
Author Organization [facility] Adult Address [address] [place] [address]- Care Team Providers Care Securities Underwriter Name Role Phone Yoel Parrish MD Primary Care Phys[id number] 08/29[facility] - 01/05/22 [facility] Adult [address] [place] [address]- Attending Physician: Yoel Parrish MD Allergies, Adverse [...] 5 09/14/16 Recorded 1Result Comment: [facility] [phone] 2Result Comment: [facility] [phone] 3Result Comment: [facility] [id number] [phone] 4Admin Note: stop and shop [...] EDT, Route to Pharmacy Electronically, [facility], Partial fill upon patient request [...] Weight Start Date: 03/22/21 Status: Ordered Pen [place], 31 G x 8 mm BD Ultra [...] EST, Route to Pharmacy Electronically, [facility], 167, cm, 03/22/21 9:18:00 EST, Height, 85.8, kg, 0... Start Date: 03/22/21 Stop Date: 03/17/22 Status: Ordered rosuvastatin 10 mg oral tablet 1 tablet = 10 mg, By Mouth, Daily, # 90 tablet, 3 Refills, Maintenance, 04/27/21 12:53:00 EST, Tablet, [facility], 167, cm, 03/22/21 9:18:00 EST, Height, 85.8, kg, 04/27/19 11:30:00 EST, Dry Weight Start Date: 04/27/21 Status: Ordered Ventolin HFA 108 mcg/inh inhalation aerosol with adapter 2 puffs, Inhalation, 4 times a day, PRN for wheezing, # 18 Gm, 5 Refills, Maintenance, 09/17/21 7:00:00 EDT, Aerosol, [facility], 167, cm, 08/29/21 9:11:00 EDT, [...] Patient Care team information Personnel Name: Shivani IBARRA [facility] Address: Address: [address] [place] [address] [address] [place], [place] [address]
--- OUTSIDE RECORDS SUMMARY | 2023-06-25 02:50 | XMS_ITS | Continuity of Care Document ---
Author Organization [facility] Address [address] [place] [address]- Care Team Providers Care Generator Switchboard Operator Name Role Phone Yoel Parrish MD Primary Care Physician [place] [facility] Date(s): 03/29/21 - 04/28/[address] [address]- Attending Physician: Admtr, Samara Admitting Physician: Admtr, Ar8 Referring Physician: Admtr, Ar8 Allergies, Adverse Reactions, [...] 09/14/16 Recorded 1Result Comment: [facility] [phone] 2Result Comment: [facility] [phone] 3Result Comment: [facility] [id number] [phone] 4Admin Note: stop [facility] [...] EST, Route to Pharmacy Electronically, [facility], Partial fill upon patient request [...] 8:03:00 EST, 04/28/21 8:03:00 EST, REC Powder, [facility], 17 Gm By [...] Weight Start Date: 03/22/21 Status: Ordered Pen [place], 31 G x 8 mm BD Ultra [...] 03/22/21 10:20:00 EST, Route to Pharmacy Electronically, [facility], 167, cm, 03/22/21 9:18:00 EST, Height, 85.8, kg, 0... Start Date: 03/22/21 Stop Date: 03/17/22 Status: Ordered rosuvastatin 10 mg oral tablet 1 tablet = 10 mg, By Mouth, Daily, # 90 tablet, 3 Refills, Maintenance, 04/27/21 12:53:00 EST, Tablet, [facility], 167, cm, 03/22/21 9:18:00 EST, Height, 85.8, kg, 04/27/19 11:30:00 EST, Dry Weight Start Date: 04/27/21 Status: Ordered Ventolin HFA 108 mcg/inh inhalation aerosol with adapter 2 puffs, Inhalation, 4 times a day, PRN for wheezing, # 18 Gm, 3 Refills, Maintenance, 03/22/21 10:21:00 EST, Aerosol, [facility], 167, cm, 03/22/21 9:18:00 EST, [...]
--- OUTSIDE RECORDS SUMMARY | 2023-06-25 02:50 | XMS_ITS | Continuity of Care Document ---
Author Organization [facility] Adult Address [address] [place] [address]- Care Team Providers Care Tax Specialist Name Role Phone Shivani IBARRA, [facility] Primary Care Physician Encounter [facility] Date(s): 10/29/22 - 11/28/22 [facility] Adult [address] [place] [address]- Allergies, Adverse Reactions, Alerts Substance Reaction Severity [...] [facility] [id number] 2Result Comment: [facility] [id number] 3Result Comment: [facility] [id number] [phone] 4Admin Note: [facility] [...] anxiety, # 90 tablet, 0 Refills, Maintenance, 10/29/22 12:30:00 EDT, Tablet, [facility], 167, cm, 08/29/21 9:11:00 EDT, Height Start Date: 10/29/22 Stop Date: 11/28/22 Status: Ordered metFORMIN 1000 mg oral tablet [...] Height Start Date: 09/10/22 Status: Ordered Pen [place], 31 G x 8 mm BD Ultra [...] EDT, Route to Pharmacy Electronically, [facility], 167, cm, 08/29/21 9:11:00 EDT, [...] Team Personnel Name: Yoel Parrish MD Position: [facility] Physician - Primary Care Member Role: PCP Address: Address: [address] [place] [address] [address] [place] [address]- Care Team Related Persons Name: CHAGO MEDRANO Address: home [address] [place] [address] Name: SUNIL TEMPLETON Address: home [address] [facility], [address] [address]
--- OUTSIDE RECORDS SUMMARY | 2023-06-25 02:50 | XMS_ITS | Continuity of Care Document ---
Author Organization [facility] Adult Address [address] [place] [address]- Care Team Providers Care Electronics Maintenance Technician Name Role Phone Shivani IBARRA, [facility] Primary Care Physician En[facility] Date(s): 07/16/20 - 08/15/20 [facility] Adult [address] [place] [address]- Allergies, Adverse Reactions, Alerts Substance Reaction Severity [...] Comment: [facility] [phone] 2Result Comment: [facility] [phone] 3Result Comment: [facility] [id number] [phone] 4Admin Note[facility] Medications aspirin 81 mg oral delayed release tablet 81 mg, 1, tablet, By Mouth, Daily, for 90 days, # 90 tablet, Refills 1, Tot. Refills 1, Hard Stop 10/04/20 10:12:00 EDT, 04/07/20 10:12:00 EST, Route to Pharmacy Electronically, [facility], 167, cm, 10/26/19 9:29:00 EDT, Height, 85.8, kg,... Start Date: 04/07/20 Stop Date: 10/04/20 Status: Ordered aspirin 81 mg oral delayed release tablet 81 mg, 1, tablet, By Mouth, Daily, # 90 tablet, Refills 1, Tot. Refills 1, Maintenance, 10/04/20 10:12:00 EDT, Route to Pharmacy Electronically, [facility], 167, cm, 10/26/19 9:29:00EDT, Height, 85.8, kg, 04/27/19 11:30:00 EST, Dry Weight Start Date: 10/04/20 Stop Date: 04/02/21 Status: Ordered Flovent HFA 110 mcg/inh inhalation aerosol 2 puffs, Inhalation, 2 times a day, # 12 Gm, 5 Refills, Maintenance, 01/03/20 13:52:00 EST, Aerosol, [facility], 167, cm, 10/26/19 9:29:00 EDT, [...] Maintenance, 05/03/20 9:00:00EST, Route to Pharmacy Electronically, [facility], 167, cm, 10/26/19 9:29:00 EDT, [...] anxiety, # 90 tablet, 0 Refills, Maintenance, 07/31/20 9:39:00 EDT, Tablet, [facility], 167, cm, 10/26/19 9:29:00 EDT, Height, 85.8, kg, 04/27/19 11:30:00 EST, Dry Weight Start Date: 07/31/20 Stop Date: 08/30/20 Status: Ordered metFORMIN 1000 mg oral tablet [...] Daily, # 90 capsule, 0 Refills, Maintenance, 07/12/20 10:43:00 EDT, ECCapsule, [facility], 167, cm, 10/26/19 9:29:00 EDT, [...] 05/03/20 Stop Date: 10/30/20 Status: Ordered Pen [place], 31 G x 8 mm BD Ultra [...] 05/03/20 8:03:00 EST, Route to Pharmacy Electronically, [facility], Office visit needed [...]
--- OUTSIDE RECORDS SUMMARY | 2023-06-25 02:50 | XMS_ITS | Continuity of Care Document ---
Author Organization [facility] Adult Address [address] [place] [address]- Care Team Providers Care Body Mechanic Name Role Phone Shivani IBARRA, [facility] Primary [facility] Physician [place] [facility] [place]): [place]23 [facility] Adult [address] [place] [address]- Attending Physician: Abimael WINDOW SHADE RING SEWER, Anna Mendoza Allergies, Adverse Reactions, Alerts Substance Reaction Severity [...] vaccine 5 09/14/16 Recorded 1Result Comment: [facility] [id number] 2Result Comment: NDC [id number] 3Result Comment: [facility] [id number] 4Admin Note: [facility] shop [...] 0 Refills, Maintenance, 01/02/23 16:32:00 EDT, Tablet, [facility], 167, cm, 08/29/21 [...] Height Start Date: 09/10/22 Status: Ordered Pen [place], 31 G x 8 mm BD Ultra [...] EDT, Route to Pharmacy Electronically, [facility], 167, cm, 08/29/21 9:11:00 EDT, [...] Team Personnel Name: Shivani IBARRA, Yoel Position: [facility] Physician - Primary Care Member Role: PCP Address: Address: [address] [place] [address]- Care Team Related Persons Name: CHAGO MEDRANO Address: home [address] [place] [address] Name: SUNIL TEMPLETON Address: home [address] [facility], [address] [address]
--- OUTSIDE RECORDS SUMMARY | 2023-06-25 02:50 | XMS_ITS | Continuity of Care Document ---
Author Organization [facility] Adult Address [address] [place] [address]- Care Team Providers Care Plastic Cnc Machine Operator Name Role Phone Shivani IBARRA, [facility] Primary Care Physician ( [phone] Encounter [facility] [place] Date(s): 01/21/22 - 02/20/22 [facility] Adult [address] [place] [address]- Allergies, Adverse Reactions, Alerts Substance Reaction Severity [...] 13-valent vaccine 5 09/14/16 Recorded 1Result Comment: [facility] [id number] 2Result Comment: [facility] [id number] 3Result Comment: [facility] [id number] 4Admin Note: stop and shop [...] Weight Start Date: 03/22/21 Status: Ordered Pen [place], 31 G x 8 mm BD Ultra [...] 03/22/21 10:20:00 EST, Route to Pharmacy Electronically, [facility], 167, cm, 03/22/21 9:18:00 EST, Height, 85.8, kg, 0... Start Date: 03/22/21 Stop Date: 03/17/22 Status: Ordered rosuvastatin 10 mg oral tablet 1 tablet = 10 mg, By Mouth, Daily, # 90 tablet, 3 Refills, Maintenance, 04/27/21 12:53:00 EST, Tablet, [facility], 167, cm, 03/22/21 9:18:00 EST, Height, 85.8, kg, 04/27/19 11:30:00 EST, Dry Weight Start Date: 04/27/21 Status: Ordered Ventolin HFA 108 mcg/inh inhalation aerosol with adapter 2 puffs, Inhalation, 4 times a day, PRN for wheezing, # 18 Gm, 5 Refills, Maintenance, 09/17/21 7:00:00 EDT, Aerosol, [facility], 167, cm, 08/29/21 9:11:00 EDT, [...] Team Personnel Name: Yoel Parrish MD Position: [facility] Primary Care Physician Member Role: PCP Address: Address: [address] [place] [address] [address] [place] [address]- Care Team Related Persons Name: CHAGO MEDRANO Address: home [address] [place] [address] Name: SUNIL TEMPLETON Address: home [address] [facility], [address] [address]
--- OUTSIDE RECORDS SUMMARY | 2023-06-25 02:50 | XMS_ITS | Continuity of Care Document ---
Author Organization [facility] Adult Address [address] [place] [address]- Care Team Providers Care Coal Washer Tender Name Role Phone Shivani IBARRA, [facility] Primary Care Physician [place] [facility] [place] 09/10/22 - 10/10/22 [facility] Adult [address] [place] [address]- Allergies, Adverse Reactions, Alerts Substance Reaction Severity [...] [facility] [id number] 2Result Comment: [facility] [id number] 3Result Comment: [facility] [id number] [phone] [id number] 4Admin Note: stop and shop [...] EDT, Route to Pharmacy Electronically, [facility], 167, cm, 08/29/21 9:11:00 EDT, [...] anxiety, # 90 tablet, 0 Refills, Maintenance, 09/11/22 12:11:00 EDT, Tablet, [facility], 167, cm, 08/29/21 9:11:00 EDT, Height Start Date: 09/11/22 Stop Date: 10/11/22 Status: Ordered metFORMIN 1000 mg oral tablet [...] Height Start Date: 09/10/22 Status: Ordered Pen [place], 31 G x 8 mm BD Ultra [...] Team Personnel Name: Yoel Parrish MD Position: [facility] Physician - Primary Care Member Role: PCP Address: Address: [address] [place] [address] [address] [place], [place] [address] Name: Sandra Conteh Position: [facility] TA Member Role: Lifetime Consulting Physician Care Team Related Persons Name: CHAGO MEDRANO Address: home [address] [place] [address] Name: SUNIL TEMPLETON Address: home [address] [place] [address], [address] [address]
[2023-06-25 03:31] LABS: Glucose, Whole Blood 143 mg/dL (60-115)
[2023-06-25 03:32] LABS: Anion Gap 11 (12-20); Blood Urea Nitrogen 14 mg/dL (9-16); Calcium 9.5 mg/dL (8.4-10.2); Carbon Dioxide 31 mmol/L (22-29); Chloride 102 mmol/L (96-108); Creatinine Clr Calc Pharmacy 81.7; Estimated Glomerular Filt Rate > 60; Glucose Random 149 mg/dL (60-115); Magnesium 2.1 mg/dL (1.6-2.6); Potassium 3.7 mmol/L (3.3-5.1); Sodium 140 mmol/L (135-145)
--- NOTE | 2023-06-25 03:46 | PC.NURSE ---
Lilliam [phone].
[2023-06-25 03:49] LABS: B Type Natriuretic Peptide 21 pg/mL (<100)
[2023-06-25] MEDS: Aspirin 325 MG TABLET PO (03:52)
[2023-06-25] MEDS: 0.9 % Sodium Chloride 1,000 ML 999 ML IV (03:52)
--- NOTE | 2023-06-25 07:00 | CA_ITS ---
Transthoracic Echocardiogram Patient (Last, First, Middle): Andreas Conway L Gender: Male Date of : 1965 Age: 58 Procedure Date: 06/25/2023 Procedure Type: Transthoracic Echocardiogram Location: ER Height: 177.8 cm Weight: 77.57 kg BSA: 1.95 m2 Heart Rate: bpm BP: 138 / 69 mmHg Granite Cutter Apprentice: TO Referring MD: Zackery Zelaya MD Drums Teacher: Abel Avendaño MD Symptoms: suspected acute cva Study Quality: Fair/Contrast ECG Rhythm: Sinus Conclusions: - 1. Low normal LV ejection fraction 50-55% with normal filling pattern 2. Trace to mild aortic regurgitation 3. No intracardiac shunting 4. No gross pericardial effusion Findings Procedure Information Contrast agent, definity, is being given per protocol without apparent complications. Left Ventricle Normal left ventricular cavity size. There is normal left ventricular wall thickness. The left ventricular systolic function is low normal. The visually estimated ejection fraction is between 50-55%. Spectral Doppler is indicative of a normal filling pattern. Right Ventricle Normal right ventricular cavity size and systolic function. Atria Both atria are normal in size. There is no evidence of interatrial shunt by agitated saline. Aortic Valve Normal aortic valve structure and function. There is no aortic valve stenosis. There is mild aortic valve regurgitation. Mitral Valve Normal mitral valve structure and function. There is trace mitral valve regurgitation. There is no mitral valve stenosis. Pulmonic Valve The pulmonic valve is likely normal. There is trace pulmonic valve regurgitation. Tricuspid Valve Normal tricuspid valve structure. Tricuspid regurgitation envelope is inadequate for calculation of right ventricular systolic pressure. Normal right atrial pressure. Great Vessels All visible segments of the aorta are normal in size. The pulmonary artery was not well visualized. There is no dilatation of the ascending aorta measuring 3.10 cm. Venous The inferior vena cava is normal in size and collapses greater than 50% with inspiration. Pericardium/Pleural There is no evidence of pericardial effusion. Prior Study Comparison No prior study available for comparison. Measurements 2D Linear Measurements IVSd: 1.01 0.6-0.9/0.6-1.0 cm LVIDd: 5.00 3.9-5.3/4.2-5.9 cm LVIDd Index: 2.56 2.4-3.2/2.2-3.1 cm/m2 LVIDs: 3.15 2.0-3.6 cm LVPWd: 0.95 0.7-1.1 cm LA Diam: 3.60 2.7-3.8/3.0-4.0 cm LAIDs Index: 1.85 1.5-2.3 cm/m2 LV Mass: 220.94 67-162/88-224 g LV Mass Index: 113.30 43-95/49-115 g/m2 LVOT Diam: 2.10 3.0+(-)1.3 cm 2D Systolic Function EF 4C: 50.70 >55% EF 2C: 50.30 >55% EF BiP: 50.10 >55% Mitral Valve MV Pk E: 0.82 MV PK A: 0.69 MV Decel Time: 168.00 E/A: 1.20 E'Lateral: 9.36 E'Medial: 7.62 E/E' Med: 10.70 E/E' Lat: 8.70 PHT: 49.00 MVA PHT: 4.49 Decel [place]: 4.87 Aortic Valve AoV Pk Eliseo: 1.09 AoV Mn Eliseo: 0.70 AoV VTI: 0.25 AoV Pk Grad: 5.00 Aov Mn Grad: 2.00 MELISSA Cont.VTI: 2.98 AI Pk Eliseo: 3.30 AI [place]: 1.46 LVOT LVOT Pk Eliseo: 0.88 LVOT Mn Eliseo: 0.56 LVOT VTI: 0.22 LVOT Pk Grad: 3.00 LVOT Mn Grad: 1.00 LVOT Diam: 2.10 LVOT Area: 3.46 Diastolic Function MV Pk E: 0.82 MV Pk A: 0.69 E/A: 1.20 E'Medial: 7.62 E/E' Med: 10.70 E' Laterial: 9.36 E/E' Lat: 8.70 Right Ventricle TAPSE (mm): 21.20 TVS' Eliseo: 10.00 Tricuspid Valve RA Press: 3.00 Great Vessels Aorta Sinus of Valsalva: 3.54 2.0-3.5 cm Ao Asc: 3.10 2.1-3.4 cm Updated in Other Vendor System with Status of Final Abel Avendaño MD electronically signed on 06/25/2023 11:50:53 AM with status of Final
[2023-06-25 07:22] LABS: Glucose, Whole Blood 139 mg/dL (60-115)
--- NOTE | 2023-06-25 08:11 | PC.NURSE ---
DR. SHEPPARD AT BEDSIDE, PT AWARE OF PLAN OF CARE.
--- NOTE | 2023-06-25 08:28 | P.CNNE_ITS ---
History of Present Illness Data of Consult Service Date: 06/25/23 Primary Care Provider: Unknown Physician HPI Reason for consult: Stroke 58 years old man who came to hospital site reliability engineer stating that he woke up with left-sided numbness and weakness. He slept at about 22:00 when he was okay. He was in hospital or evaluated after 02:00. His initial evaluation revealed mild left-sided facial flatness and and numbness with NIH stroke scale of around 4. Because of relatively minor deficit he was not treated with TNK in a CTA was performed that did not reveal any large vessel disease. I saw him later in the morning when he said that his symptoms were much better. He was not having numbness or weakness of left side. There was no other associated symptom or headache. Review of Systems 2 Review of Systems: No recent cold or flu-like illness or headache. [facility] Past Medical History Medical History (Updated 06/25/23 @ 06:09 by Srikanth Dao MD) Anxiety Diabetes Social History Social History Advance Directives: Yes Advance Directives on File: Yes Advance Directives Date on File: 10/24/21 Do you have a plan to hurt others: No Plan Meds Allergies Allergy/AdvReac Type Severity Reaction Status Date / Time glipizide [GLIPIZIDE] Allergy Intermediate ITCHY Verified 06/25/23 02:07 acetaminophen [From TYLOX] AdvReac Intermediate CHEST PAINS Verified 06/25/23 02:07 oxycodone [From TYLOX] AdvReac Intermediate CHEST PAINS Verified 06/25/23 02:07 Physical Exam 2 Vital Signs: Vital Signs: Last Vital Signs Temp 97.6 F 06/25/23 07:46 Pulse 58 06/25/23 07:46 Resp 16 06/25/23 07:46 BP 138/69 06/25/23 07:46 Pulse Ox 97 06/25/23 07:46 O2 Del Method Room Air 06/25/23 07:46 BMI result Body Mass Index 24.7 Neuro: Other: He is alert and awake with normal spontaneity of speech fluency comprehension and affect. There is mild left-sided central facial weakness. Visual regalado are normal. There is no sensory extinction. There is no pronator drift. [id number] testing is normal. There is no focal weakness. Plantars were withdrawing. Speech is normal. Results Labs 06/25/23 02:13 06/25/23 02:13 Labs: Short CBC 06/25/23 Range/Units 02:13 WBC 8.6 (4.8-10.8) X10*3/uL Hgb 16.2 (14.0-18.0) g/dl Hct 47.2 (42.0-52.0) % Plt Count 218 (160-400) X10*3/uL BMP 06/25/23 02:13 Sodium 140 Potassium 3.7 Chloride 102 Carbon Dioxide 31 H BUN 14 Creatinine 1.03 Calcium 9.5 Cardiac Enzymes 06/25/23 Range/Units 02:13 Total Creatine Kinase 192 H (38-174) U/L CTA of brain revealed mild diffuse cerebral atrophy and mild chronic microvascular ischemic changes. CTA of brain and neck did not reveal any large vessel disease. EKG was normal. Assessment and Plan (1) Acute left-sided weakness: Status: Acute 58 years old man who probably has a small right hemispheric ischemic infarction of brain. Because of relatively minor deficit, he was not treated with TNK. CTA did not reveal any large vessel disease. At this time my recommendations are to obtain noncontrast MRI of brain, treat him with anti-platelet agent like aspirin 81 mg daily, do a tox screen and obtain lipid profile, and rule out any cardiac source of embolism. Procedures Date of Service Date of Service: 06/25/23
--- NOTE | 2023-06-25 08:53 | P.HPHOSP_ITS ---
History of Present Illness Date of Service: 06/25/23 Chief Complaint: left sided numbness/tingling The patient is a 58 year old M with a PMH of HTN, HLD, DM and epilepsy as a child (last on anti-epileptics around age 31) who presented with sudden on-set left sided numbness and tingling. The patient states around 2200 on the day prior to admission, he was awoke from sleepy by this feeling. His symptoms initially started in his hands, but soon thereafter, it had progressed to the left side of this body. The patient then drove himself to the hospital and while in the ED, he was noted to have L facial droop. His NIH stroke scale was deemed a 3 in the ED. He underwent CT and CTA of the head/neck which were negative for acute findings. He has been given asprin and IVF and now will be admitted for further management of suspected CVA. Review of Systems 2 Review of Systems: Negative except HPI/interval history. [facility] Medical History (Updated 06/25/23 @ 06:09 by Srikanth Dao MD) Anxiety Diabetes Social History Advance Directives: Yes Advance Directives on File: Yes Advance Directives Date on File: 10/24/21 Do you have a plan to hurt others: No Plan Meds Allergies Allergy/AdvReac Type Severity Reaction Status Date / Time glipizide [GLIPIZIDE] Allergy Intermediate ITCHY Verified 06/25/23 02:07 acetaminophen [From TYLOX] AdvReac Intermediate CHEST PAINS Verified 06/25/23 02:07 oxycodone [From TYLOX] AdvReac Intermediate CHEST PAINS Verified 06/25/23 02:07 Active Medications: Current Medications Enoxaparin Sodium (Enoxaparin Sodium 40 Mg/0.4 Ml Syringe) 40 mg SUBCUT Q24H [facility] Sodium Chloride (0.9 % Sodium Chloride Flush 3 Ml Syringe) 3 ml IVFLUSH QSHIFT [facility] Physical Exam 2 Vital Signs and Narrative: Vital Signs: Last Vital Signs Temp 97.6 F 06/25/23 07:46 Pulse 58 06/25/23 07:46 Resp 16 06/25/23 07:46 BP 138/69 06/25/23 07:46 Pulse Ox 97 06/25/23 07:46 O2 Del Method Room Air 06/25/23 07:46 BMI result Body Mass Index 24.7 Const: Other: Constitutional - Awake and Alert, No apparent distress Eyes - PERRLA, EOMI Cardiovascular - S1S2, RRR, No edema Respiratory - Normal lung expansion, Normal respiratory effort, No respiratory distress, CTA bilaterally Gastrointestinal - NT / ND; +BS; No rebound or guarding - No CVA tenderness Extremities - no calf tenderness bilaterally, no swelling Musculoskeletal - Normal inspection, normal ROM Skin - Warm/Dry Neurological - Alert & oriented x3, mild L facial assymetry and question mild L leg weakness 4+/5 otherwise non-focal exam Psychological - Appropriate affect Results Labs 06/25/23 02:13 06/25/23 02:13 Labs: Laboratory Results - last 24 hr 06/25/23 06/25/23 06/25/23 02:13 03:28 07:09 MCV 83.2 MCH 28.6 MCHC 34.3 RDW 12.4 Plt Count 218 MPV 9.7 Immature Gran % (Auto) 0.5 H Neut % (Auto) 61.4 Lymph % (Auto) 27.6 Mcclain % (Auto) 8.6 Eos % (Auto) 1.4 Baso % (Auto) 0.5 Lymph # (Auto) 2.4 Mcclain # (Auto) 0.7 Eos # (Auto) 0.1 Baso # (Auto) 0.0 Abs Immat Gran (auto) 0.04 H Absolute Neuts (auto) 5.3 Absolute Nucleated RBC 0.000 Nucleated RBC % (auto) 0.0 PT 13.0 INR 1.1 APTT 35.0 Anion Gap 11 L Estim Creat Clear Calc 81.7 Estimated GFR > 60 POC Glucose 143 H 139 H Random Glucose 149 H Calcium 9.5 Magnesium 2.1 Total Creatine Kinase 192 H Troponin I High Sens 2.7 B-Natriuretic Peptide 21 Imaging Radiologist's Impressions: Impressions Head CT 06/25/23 02:20 IMPRESSION: 1. No acute intracranial pathology. 2. Mild cerebral volume loss. This critical result was discussed with Dr. Dao at 2:23 AM hours on 06/25/2023. It was ascertained that the content and urgency of the report was understood at the time of direct communication. Head/Neck CTA 06/25/23 02:51 IMPRESSION: 1. No acute territorial infarction or hemorrhage. 2. No intracranial large vessel occlusion. 3. No significant arterial stenosis in the neck. 4. Emphysematous changes in the lungs. Assessment and Plan (1) Acute left-sided weakness: Status: Acute Plan 58 yo M with DM, HTN, HLD presenting with acute neurological symptoms consistent with acute CVA. 1. Suspected acute CVA has mild L facial droop and possible L leg weakness CT brain and CTA head/neck - negative will check MRI brain 2d echo and monitor on tele Lipid panel, A1C Passed bedside swallow eval, will get PT given L weakness Neurology consult appreciated 2. DM hold orals, use sliding scale check a1c 3. HTN BP acceptable, allow permissive HTN if MRI positive 4. HLD check lipit profile high intensity statin 5. Active tobacco (smoke) use d/w him the relation b/w tobacco and CVA; encouraged cessation is considering nicotine patch Full Code DVT pptx -- Lovenox Pt with suspected Acute CVA requiring father work up for cause + monitoring, therefore expected to at least mdnights in the hospital and hence, will be admitted as inpatient. Quality Stroke Does the patient have a stroke diagnosis?: Yes Reason for No Anti-thrombotic by Day Two: N/A - Med Ordered VTE Prior VTE?: No VTE Risk Level:: Medical - moderate - high VTE Device Contraindication: Treatment Not Indicated VTE Drug Contraindication: N/A - Med Ordered
[2023-06-25 09:26] LABS: Cholesterol 149 mg/dL (<200); HDL Cholesterol 30 mg/dL (>40); LDL Cholesterol Calculated 80 mg/dL (<100); Triglycerides 195 mg/dL (<150)
--- NOTE | 2023-06-25 09:39 | PHA.MEDREC ---
Pharmacy Consult ? Medication Reconciliation Pharmacy has completed the medication reconciliation. Spoke with patient.
[2023-06-25] MEDS: Atorvastatin Calcium 80 MG TABLET PO (10:58)
[2023-06-25] MEDS: Enoxaparin Sodium 40 MG/0.4 ML SYRINGE SUBCUT (10:58)
[2023-06-25 12:22] LABS: Estimated Average Glucose 194 mg/dL; Hemoglobin A1c % 8.4 % (<6.0)
--- NOTE | 2023-06-25 12:46 | PC.NURSE ---
assumed care of pt at 0700. pt a&o x4, pleasant, calm, and cooperative. pt denies pain, negative facial droop, weakness resolved. pt ambulates independently to bathroom with steady gait. speaks in full, complete, clear sentences. pt upgraded from NPO to diabetic diet per Dr. Zelaya. MRI complete. awaiting results. pt currently resting quietly on stretcher in no apparent distress. rr even/unlabored. call street within reach. plan of care ongoing.
[2023-06-25 13:03] LABS: Glucose, Whole Blood 222 mg/dL (60-115)
[2023-06-25] MEDS: Insulin Lispro 100 UNIT/ML 3 ML VIAL SUBCUT ×2 (13:04→20:33)
[2023-06-25] MEDS: LORazepam 1 MG TABLET PO ×2 (15:34→20:22)
--- NOTE | 2023-06-25 16:38 | PC.NURSE ---
t/w spoke with pt's per pt's approval. pt's , Lilliam, sts that pt takes miralax 2x a day for constipation. miralax currently in mar as prn . t/w let pt know while on way up to inpatient room to ask for miralax and to ask for med to be changed in mar to BID .
[2023-06-25 17:16] LABS: Glucose, Whole Blood 123 mg/dL (60-115)
[2023-06-25] MEDS: Insulin Glargine,Hum.rec.anlog 100 UNIT/ML 10 ML VIAL 10 UNIT SUBCUT (20:21)
[2023-06-25] MEDS: Gabapentin 300 MG CAPSULE PO (20:22)
[2023-06-25] MEDS: QUEtiapine Fumarate 25 MG TABLET 75 MG PO (20:22)
[2023-06-25] MEDS: PARoxetine HCL 30 MG TABLET PO (20:22)
[2023-06-25 20:31] LABS: Glucose, Whole Blood 185 mg/dL (60-115)
[2023-06-25] MEDS: 0.9 % Sodium Chloride Flush 3 ML SYRINGE IVFLUSH (23:44)
[2023-06-26] VITALS: BP 124/63; PULSE 69; RESP 18; TEMP 36.5; O2SAT 97
[2023-06-26 04:00] VITALS: BP 134/81; PULSE 64; RESP 18; TEMP 36.1; O2SAT 98
[2023-06-26 06:58] VITALS: BP 118/73; PULSE 67; RESP 18; TEMP 36.4; O2SAT 100
[2023-06-26 08:01] LABS: Glucose, Whole Blood 178 mg/dL (60-115)
[2023-06-26] MEDS: QUEtiapine Fumarate 25 MG TABLET 75 MG PO (08:05)
[2023-06-26] MEDS: LORazepam 1 MG TABLET PO (08:05)
[2023-06-26] MEDS: PARoxetine HCL 30 MG TABLET PO (08:05)
[2023-06-26] MEDS: Omeprazole 20 MG CAPSULE.DR PO (08:05)
[2023-06-26] MEDS: Aspirin Enteric Coated 81 MG TABLET.DR PO (08:05)
[2023-06-26] MEDS: Gabapentin 300 MG CAPSULE PO (08:05)
[2023-06-26] MEDS: Atorvastatin Calcium 80 MG TABLET PO (08:05)
[2023-06-26] MEDS: Insulin Lispro 100 UNIT/ML 3 ML VIAL SUBCUT (08:05)
[2023-06-26] MEDS: 0.9 % Sodium Chloride Flush 3 ML SYRINGE IVFLUSH (08:09)
[2023-06-26] MEDS: polyethylene glycoL 3350 17 GM POWD.PACK PO (08:09)
--- NOTE | 2023-06-26 08:48 | MHC.CM.PN ---
CM met with Patient at bedside and addressed IMM with her; original was given to Patient and a copy has been placed on the chart. Patient lives in an apartment with his /HCP/Lilliam and he uses a cane to assist with mobility. PT is recommending home with services and [facility] CM has initiated and will follow for dc planning. It was difficult to understand Patient and Contacts are not available but it sounded like Dr. Nesha Ortiz is the PCP.CM will follow.
--- NOTE | 2023-06-26 10:46 | PM.DS ---
DS: Providers Provider Date of Service: 06/26/23 Date of admission: 06/25/23 08:50 Date of discharge: 06/26/23 Primary care physician: Unknown Physician Attending physician on discharge: Zackery Zelaya Discharging clinician: Mirian Blank DS: Diagnosis Discharge Diagnosis (1) Acute left-sided weakness: Status: Acute DS: Summary Hospital Course Hospital Course: From H&P on the day of admission The patient is a 58 year old M with a PMH of HTN, HLD, DM and epilepsy as a child (last on anti-epileptics around age 31) who presented with sudden on-set left sided numbness and tingling. The patient states around 2200 on the day prior to admission, he was awoke from sleepy by this feeling. His symptoms initially started in his hands, but soon thereafter, it had progressed to the left side of this body. The patient then drove himself to the hospital and while in the ED, he was noted to have L facial droop. His NIH stroke scale was deemed a 3 in the ED. He underwent CT and CTA of the head/neck which were negative for acute findings. He has been given asprin and IVF and now will be admitted for further management of suspected CVA. Suspected acute CVA had mild L facial droop and possible L leg weakness. CT brain and CTA head/neck was negative. 2d echo was no evidence of intracardiac shunt. Lipid panel with LDL 80 A1C 8.4. Passed bedside swallow eval. was evaluated by PT who recommended home with services. He was seen by Neurology who felt that he may have had a small right hemispheric infarction. However he had MRI of the brain which did not show any acute intracranial abnormalities. He will be continued on his baseline statin and aspirin. He will be discharged home with physical therapy services. Time Attestation Discharge Coordination Time (in mins): 35 Quality: Safe Use of Opioids Does Pt have an Active Cancer Diagnosis on the Problem List?: No Quality: Stroke Does the patient have a stroke diagnosis?: No Physical Exam Vital Signs: Vital Signs: Last Vital Signs Temp 97.6 F 06/26/23 06:58 Pulse 67 06/26/23 06:58 Resp 18 06/26/23 06:58 BP 118/73 06/26/23 06:58 Pulse Ox 100 06/26/23 06:58 O2 Del Method Room Air 06/26/23 06:58 BMI result Body Mass Index 24.7 Const: General: cooperative, comfortable, no acute distress, alert and awake Nutritional Appearance: average body habitus Orientation/consciousness: patient oriented x3 Resp: Effort & Inspection: normal respiratory effort, able to speak in complete sentences, no respiratory distress and no use of accessory muscles Auscultation: clear to auscultation bilaterally Cardio: Rate: regular rate GI: Inspection: No distended Palpation (GI): Soft to palpation and nontender Neuro: General: patient oriented x3, moves all extremities and CN's II-XI intact bilaterally Extrem: General: Yes no pedal edema DS: Data Data Completed and Pending Labs on day of discharge: Laboratory Results - last 24 hr 06/25/23 06/25/23 06/25/23 11:56 12:58 17:12 POC Glucose 222 H 123 H Estimat Average Glucose 194 Hemoglobin A1c % 8.4 H 06/25/23 06/26/23 20:27 07:55 POC Glucose 185 H 178 H Estimat Average Glucose Hemoglobin A1c % Discharge Plan Discharge Anticipated Discharge Date/Time: 06/26/23 10:43 Patient Disposition: Home Health Service Discharge Diagnosis: left side weakness Referrals: Physician,Unknown J [Primary Care Provider] - 1 Week Discharge Medications: Continued aspirin 81 mg tablet,delayed release (DR/EC) 81 mg PO DAILY paroxetine HCl 30 mg tablet 30 mg PO BID metformin 1,000 mg tablet 1,000 mg PO BID gabapentin 300 mg capsule 300 mg PO BID omeprazole 20 mg capsule,delayed release(DR/EC) 20 mg PO DAILY lorazepam 1 mg tablet 1 mg PO TID polyethylene glycol 3350 17 gram/dose powder 17 g PO BID PRN (Reason: Constipation) albuterol sulfate [Ventolin HFA] 90 mcg/actuation HFA aerosol inhaler 2 puff INHALATION QID PRN (Reason: wheezing) rosuvastatin 10 mg tablet 10 mg PO DAILY Januvia 100 mg tablet 100 mg PO DAILY insulin glargine [Lantus Solostar U-100 Insulin] 100 unit/mL (3 mL) insulin pen 15 unit subcut BEDTIME quetiapine 150 mg tablet extended release 24 hr 150 mg PO BEDTIME fluticasone propion-salmeterol [Advair HFA] 115-21 mcg/actuation HFA aerosol inhaler 2 puff INHALATION BID Discharge Orders: Discharge Order (Routine); Ordered 06/26/23 Ordered By: Mirian Blank Activity on Discharge: As tolerated Stand Alone Forms: Patient Portal Discharge page Print Language: Macedonian Care Plan Goals: see below Health Concerns: left side weakness Plan of Treatment: MRI was negative for acute stroke you will be discharged home with physical therapy Continue aspirin and statin Call to schedule follow-up appointment with PCP Assessment: see discharge summary
--- NOTE | 2023-06-26 10:51 | P.F2F_ITS ---
Service Date Service Date: 06/26/23 Encounter Date of encounter: 06/26/23 Reasons for Services Signs and symptoms assessed: needs PT for impaired gait pattern and impaired standing balance and muscle weakness Reason for physical therapy: therapeutic exercises MD Overseeing Care: Yoel Parrish Homebound: Leaving the home is medically contraindicated at this time without the asist of a device and/or another person due th the listed conditions above and below. Reason homebound: leg weakness Certification: Based on the above findings, I certify that this patient is confined to the home and needs intermittent group home care, physical therapy and/or speech therapy, or continues to need occupational therapy. The patient is under my care, and I have initiated the establishment of the plan of care. The patient will be followed by a physician who will periodically review the plan of care. Time Spent With Patient Time: Total time managing care of this patient today ____ minutes.
[2023-06-26 10:58] VITALS: BP 138/80; PULSE 88; RESP 18; TEMP 37.2; O2SAT 98
--- NOTE | 2023-06-26 11:09 | MHC.CM.PN ---
Patient has been medically cleared for dc to home today with new [facility]. A referral has been made to [facility], with Patient's approval and they have been notified of today's dc. PCP is Dr. Yoel Parrish.
[2023-06-26 11:26] LABS: Glucose, Whole Blood 161 mg/dL (60-115)
--- NOTE | 2023-06-26 13:38 | MHC.STROKE ---
Clarified with RN, swallow screen completed prior to medication administration.
== END 2023-06-26 11:40 | disposition home health service (06) | DRG 57 ==
LOC: HO.ED 06:09 → HO.EDOVER 09:07 → HO.IMC 15:48
PROVIDERS: Admitting Provider Family Medicine; Emergency Provider Emergency Medicine; PCP Internal Medicine; Visit Provider Physician Assistant Medical
DX: G81.94 Hemiplegia, unspecified affecting left nondominant side (principal); F41.9 Anxiety disorder, unspecified; E11.9 Type 2 diabetes mellitus without complications; I10 Essential (primary) hypertension; E78.5 Hyperlipidemia, unspecified; F17.210 Nicotine dependence, cigarettes, uncomplicated; Z23 Encounter for immunization; Z71.6 Tobacco abuse counseling; Z79.4 Long term (current) use of insulin; Z79.84 Long term (current) use of oral hypoglycemic drugs; Z79.899 Other long term (current) drug therapy
CPT/HCPCS: 36415; 70450; 70496; 70498; 70551; 80048; 80061; 82550; 82947; 83036; 83735; 83880; 84484; 85025; 85610; 85730; 90686; 93005; 93306; 97162; 97166; 99285; J1650; Q9957; Q9967

== ENCOUNTER → 2023-06-25 02:08 | Outpatient (BNV) | payer OTHER, SELFPAY | PROVIDERS: Emergency Provider Emergency Medicine; Visit Provider Internal Medicine Cardiovascular Disease | DX: I35.1 Nonrheumatic aortic (valve) insufficiency (principal); R94.31 Abnormal electrocardiogram [ECG] [EKG] | CPT/HCPCS: 93010; 93306 ==

== ENCOUNTER → 2023-06-25 02:45 | Outpatient (BNV) | payer OTHER, SELFPAY | PROVIDERS: Emergency Provider Emergency Medicine; Visit Provider Psychiatry & Neurology Neurology | DX: G81.94 Hemiplegia, unspecified affecting left nondominant side (principal) | CPT/HCPCS: 99222 ==

== ENCOUNTER → 2023-06-25 08:50 | Outpatient (BNV) | payer OTHER, SELFPAY | PROVIDERS: Admitting Provider Family Medicine; Emergency Provider Emergency Medicine; Visit Provider Family Medicine | DX: R53.1 Weakness (principal) | CPT/HCPCS: 99223; 99239; G0180 ==

== ENCOUNTER 2023-07-12 17:03 | Emergency (ER) | payer OTHER, SELFPAY ==
--- NOTE | ~2023-07-12 | CT_ITS ---
EXAMINATION: CT ABDOMEN AND PELVIS WITHOUT CONTRAST CLINICAL INFORMATION: abdominal pain with nausea and vomiting COMPARISON: CT abdomen pelvis 04/21/2018. TECHNIQUE: Multidetector volumetric imaging was performed from the superior aspect of the liver through the pubic symphysis. Sagittal and coronal reformatted images were obtained on the technologist's workstation. This CT examination was performed using dose optimization techniques as appropriate, variously including the following: *Automated exposure control *Adjustment of mA and/or kV according to patient size (this includes techniques or standardized protocols for targeted exams where dose is matched to indication/reason for exam; i.e. extremities or head) *Use of iterative reconstruction technique DLP: 477 mGy-cm FINDINGS: Evaluation of solid organs, vascular structures, and bowel wall limited in the absence of intravenous contrast. LUNG BASES: Mild bibasilar subpleural reticulation.Lung bases otherwise unremarkable. Multivessel coronary artery calcifications present. LIVER AND BILIARY TREE: Diffuse hepatic steatosis. GALLBLADDER: Unremarkable. PANCREAS: Unremarkable. SPLEEN: Unremarkable. ADRENAL GLANDS: Unremarkable. KIDNEYS AND URETERS: Unremarkable. GASTROINTESTINAL TRACT: Unremarkable. Normal appendix. VASCULAR: Moderate aortoiliac calcific atherosclerosis with a diminutive distal abdominal aorta. LYMPH NODES: No lymphadenopathy. PERITONEUM: No ascites. BLADDER: Unremarkable. PELVIC VISCERA: Coarse prostatic calcifications. ABDOMINAL AND PELVIC WALL: Unremarkable. OSSEOUS STRUCTURES: Unremarkable. CT/CT abdomen pelvis wo IV con IMPRESSION: 1. No acute abnormality of the abdomen or pelvis within the limitations of noncontrast technique. 2. Redemonstrated hepatic steatosis.
[2023-07-12 17:12] VITALS: BP 117/76; PULSE 87; RESP 18; TEMP 37.3; O2SAT 94; BMI 27.4
--- NOTE | 2023-07-12 17:16 | ED_ITS ---
HPI - General Adult General Chief complaint: Abdominal Pain Stated complaint: vomiting, oral infection Time Seen by Provider: 07/12/23 19:15 Source: patient and family Mode of arrival: ambulatory Limitations: no limitations History of Present Illness HPI narrative: 58-year-old male came in for evaluation of abdominal pain, vomiting x3 days. Patient drinks alcohol occasionally last drink was few months ago, no recent travel, no recent use of antibiotic, no exposure to a sick contacts, no exposure to bad food, no history of intra-abdominal surgery, last bowel movement was early today and was loose stool patient did not look at the stool color. No fever, no chills. Family history of GI cancer patient had a colonoscopy less than year ago. Related Data Home Medications ?Medication ?Instructions ?Recorded ?Confirmed albuterol sulfate 90 mcg/actuation 2 puff inhalation QID PRN wheezing 06/25/23 06/25/23 aerosol inhaler (Ventolin HFA) aspirin 81 mg tablet,delayed 81 mg PO DAILY 06/25/23 06/25/23 release fluticasone propionate 115 2 puff inhalation BID 06/25/23 06/25/23 mcg-salmeterol 21 mcg/actuation HFA inhaler (Advair HFA) gabapentin 300 mg capsule 300 mg PO BID 06/25/23 06/25/23 insulin glargine 100 unit/mL (3 15 unit subcut BEDTIME 06/25/23 06/25/23 mL) subcutaneous pen (Lantus Solostar U-100 Insulin) lorazepam 1 mg tablet 1 mg PO TID 06/25/23 06/25/23 metformin 1,000 mg tablet 1,000 mg PO BID 06/25/23 06/25/23 omeprazole 20 mg capsule,delayed 20 mg PO DAILY 06/25/23 06/25/23 release paroxetine HCl 30 mg tablet 30 mg PO BID 06/25/23 06/25/23 polyethylene glycol 3350 17 17 g PO BID PRN Constipation 06/25/23 06/25/23 gram/dose oral powder quetiapine 150 mg tablet,extended 150 mg PO BEDTIME 06/25/23 06/25/23 release 24 hr rosuvastatin 10 mg tablet 10 mg PO DAILY 06/25/23 06/25/23 sitagliptin phosphate 100 mg 100 mg PO DAILY 06/25/23 06/25/23 tablet (Januvia) Allergies Allergy/AdvReac Type Severity Reaction Status Date / Time glipizide [GLIPIZIDE] Allergy Intermediate ITCHY Verified 07/12/23 17:14 acetaminophen [From TYLOX] AdvReac Intermediate CHEST PAINS Verified 07/12/23 17:14 oxycodone [From TYLOX] AdvReac Intermediate CHEST PAINS Verified 07/12/23 17:14 Review of Systems 2 Review of Systems: All other systems are reviewed and are negative Constitutional: Reports as per HPI and Reports no additional constitutional complaints Eyes: Reports as per HPI and Reports no additional eye complaints Reports system reviewed and no additional complaints, except as documented Cardiovascular: Reports as per HPI and Reports no additional cardiovascular complaints Respiratory: Reports as per HPI and Reports no additional respiratory complaints Gastrointestinal: Reports as per HPI and Reports no additional gastrointestinal complaints Genitourinary: Reports no additional female genitourinary complaints Musculoskeletal: Reports no additional musculoskeletal complaints Skin/Breast: Reports system reviewed and no additional complaints, except as docu Psychiatric: Reports no additional psychiatric complaints Endocrine: Reports no additional endocrine complaints Hematologic/Lymphatic: Reports no additional hematologic/lymphatic complaints Allergic/Immunologic: Reports no additional allergic/immunologic complaints Reports system reviewed and no additional complaints, except as documented and Reports Abnormal speech present FORMERLY [facility], [facility] Past Medical History Medical History Anxiety Diabetes Social History Social History Household Members: Spouse Housing: Apartment Do you presently have visiting nurse or other home services: No Patient Tobacco Use Status: Current everyday Tobacco user Cigarettes Per Day: 10 Substance Use Type: Marijuana Advance Directives: Yes Advance Directives on File: Yes Advance Directives Date on File: 10/24/21 Do you have a plan to hurt others: No Plan service: No Physical Exam ED Vital Signs: Vital Signs - 24 hr 07/12/23 17:12 07/12/23 21:24 Temperature 99.2 F 98.4 F Pulse Rate 87 66 Respiratory Rate 18 18 Blood Pressure 117/76 134/76 Pulse Oximetry 94 97 Oxygen Delivery Method Room Air Room Air BMI result Body Mass Index 27.4 Vital signs have been reviewed and appear to be correct. Blood pressure elevated. Heart rate normal. Respiratory rate normal. Temperature normal. Oxygen saturation normal. Appearance: Alert. Oriented X3. No acute distress. Head: Normal external exam. Normocephalic. Atraumatic. No Gilbert signs noted. No raccoon eyes noted Eyes: PERRLA. EOMI. Conjunctiva and sclera normal. Eyelids normal. ENT: TM's Normal. Pharynx normal. Uvula midline. Moist mucous membranes. No trismus noted. No drooling noted. No muffled voice noted. Neck: Normal inspection. Neck supple. FROM. No adenopathy. Thyroid Normal. No meningeal signs. No neck mass noted. CVS: Normal heart rate and rhythm. Heart sound normal. No murmurs noted. Pulses normal throughout. Respiratory: No respiratory distress. Painless inspiration. Breath sounds normal. No wheezes/rales/rhonchi noted. Chest nontender. No accessory muscle usage noted or decreased air movement noted. Abdomen: Soft, epigastric tenderness, no guarding, no rebound tenderness. Bowel sounds normal in all 4 quadrants. No distention noted. No organomegaly noted. No visible injury noted. Back: No CVA tenderness. Full range of motion noted. Skin: Skin warm and dry. Normal skin color. Normal skin turgor. No rashes/lesions/lacerations noted. Extremities: No lower extremity edema. Extremities exhibit normal range of motion. Extremities nontender. Neuro: Oriented X 3. Cranial nerve exam: II-XII are grossly intact No motor deficit. No sensory deficit. Reflexes normal. Course Course Course Narrative: RME performed by Kandi Lyles PA-C. Patient is a 58 year old assigned male at presenting to the emergency department with increased urinary volume, nausea, abdominal pain, and a nasal polyp. Patient states that he has had a polyp for months. Patient states that over the last 4 days, he has begun to feel nauseous and have abdominal pain. Patient states that when he urinates it is a lot more than usual. Detailed physical exam and review of systems are deferred to the cardio clinician. Labs and swabs ordered. Patient placed back in the waiting room pending room availability and results. Reevaluation(s) Reevaluation #1: Abdominal pain, vomiting. Unremarkable labs no dehydration, anemia. CT abdomen pelvis showing no acute intra-abdominal pathology. 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 Time: 23:11 Medications Administered Discontinued Medications Generic Name Dose Route Start Last Admin Trade Name Freq PRN Reason Stop Dose Admin Al Hydroxide/Mg Hydroxide 30 ml 07/12/23 19:27 07/12/23 19:37 Magnesium Hydrox/Alum Hydrox 30 Ml Oral.Susp PO 07/12/23 19:28 30 ml ONCE ONE Administration Famotidine 20 mg 07/12/23 19:27 07/12/23 19:37 Famotidine/Pf 20 Mg/2 Ml Vial IVPUSH 07/12/23 19:28 20 mg ONCE ONE Administration Sodium Chloride 1,000 mls @ 999 mls/hr 07/12/23 20:00 07/12/23 21:41 Ns IV 07/12/23 21:00 Infused .Q1H1M NILE Infusion Ondansetron HCl 4 mg 07/12/23 19:27 07/12/23 19:37 Ondansetron Hcl 4 Mg/2 Ml Vial IVPUSH 07/12/23 19:28 4 mg ONCE ONE Administration Medical Decision Making Differential Diagnosis Differential Diagnoses: The differential diagnosis associated with the presentation includes (Acute gastritis, pancreatitis, acute cholecystitis, acute colitis, acute diverticulitis, acute appendicitis, electrolyte derangement, severe anemia.) Admission/Observation Consideration of admission/observation: Escalation of care including admission/observation considered Lab Data MDM Lab Attestation statement: I reviewed the patient's lab results. 07/12/23 17:25 07/12/23 17:25 Labs: Lab Results 07/12/23 07/12/23 Range/Units 17:25 17:28 WBC 9.1 (4.8-10.8) X10*3/uL RBC 6.09 H (4.60-5.80) X10*6/uL Hgb 17.7 (14.0-18.0) g/dl Hct 51.0 (42.0-52.0) % MCV 83.7 (80.0-98.0) fL MCH 29.1 (27.0-33.0) pg MCHC 34.7 (31.0-36.0) g/dl RDW 12.5 (11.0-16.0) % Plt Count 304 D (160-400) X10*3/uL MPV 9.9 (9.4-12.4) fL Immature Gran % (Auto) 0.3 (0.0-0.4) % Neut % (Auto) 62.4 (45-73) % Lymph % (Auto) 25.2 (20-40) % [place] % (Auto) 10.8 (2-11) % Eos % (Auto) 0.9 (0-4) % Baso % (Auto) 0.4 (0-2) % Lymph # (Auto) 2.3 (1.2-4.9) X10*3/uL [place] # (Auto) 1.0 (0.1-1.2) X10*3/uL Eos # (Auto) 0.1 (0.0-0.4) X10*3/uL Baso # (Auto) 0.0 (0.0-0.2) X10*3/uL Abs Immat Gran (auto) 0.03 (0.00-0.03) X10*3/uL Absolute Neuts (auto) 5.6 (2.0-8.3) x10*3/uL Absolute Nucleated RBC 0.000 (0.0-0.012) X10*3/uL Nucleated RBC % (auto) 0.0 (0.0-0.2) /100WBC Sodium 137 (135-145) mmol/L Potassium 4.0 (3.3-5.1) mmol/L Chloride 97 (96-108) mmol/L Carbon Dioxide 23 (22-29) mmol/L Anion Gap 21 H (12-20) BUN 18 H (9-16) mg/dL Creatinine 1.32 (0.5-1.4) mg/dL Estim Creat Clear Calc 62.3 Estimated GFR 56 Random Glucose 142 H (60-115) mg/dL Calcium 10.4 H D (8.4-10.2) mg/dL Magnesium 2.0 (1.6-2.6) mg/dL Total Bilirubin 0.7 (0.0-1.0) mg/dL AST 29 (5-37) U/L ALT 37 (0-40) U/L Alkaline Phosphatase 83 (39-117) U/L Total Protein 9.0 H (6.5-8.0) g/dL Albumin 4.8 (3.5-5.0) g/dL Urine Color Yellow Urine Appearance Cloudy Urine pH 5.5 (5.0-9.0) Ur Specific [place] 1.025 (1.005-1.025) Urine Protein 30 (1+) H (Neg-Trace) mg/dL Urine Glucose (UA) Negative (Negative) mg/dL Urine Ketones Trace (Negative) mg/dL Urine Blood Negative (Negative) Urine Nitrite Negative (Negative) Ur Leukocyte Esterase Negative (Negative) Urine RBC 0-2 (0-2) /HPF Urine WBC 0-5 (0-5) /HPF Ur Squamous Epith Cells 0-2 (0-2) /HPF Urine Bacteria None Seen (None Seen) Hyaline Casts 0-2 (0-2) /LPF Influenza Type A (PCR) NEGATIVE (Negative) Influenza Type B (PCR) NEGATIVE (Negative) RSV RNA Qual (PCR) NEGATIVE (Negative) SARS-CoV-2 RNA (RT-PCR) NEGATIVE (Negative) Independent Interpretation I performed an independent interpretation of an: CT Scan (Abdomen and pelvis:1. No acute abnormality of the abdomen or pelvis within the limitations of noncontrast technique. 2. Redemonstrated hepatic steatosis. ) Radiology Impression Discussion of test interpretation with radiology: I have reviewed the radiologist's reading. Discharge Plan Discharge Clinical Impression: Abdominal pain Patient Disposition: Home, Self-Care Instructions: Abdominal Pain (ED) Prescriptions: No Action aspirin 81 mg tablet,delayed release (DR/EC) 81 mg PO DAILY paroxetine HCl 30 mg tablet 30 mg PO BID metformin 1,000 mg tablet 1,000 mg PO BID gabapentin 300 mg capsule 300 mg PO BID omeprazole 20 mg capsule,delayed release(DR/EC) 20 mg PO DAILY lorazepam 1 mg tablet 1 mg PO TID polyethylene glycol 3350 17 gram/dose powder 17 g PO BID PRN (Reason: Constipation) albuterol sulfate [Ventolin HFA] 90 mcg/actuation HFA aerosol inhaler 2 puff INHALATION QID PRN (Reason: wheezing) rosuvastatin 10 mg tablet 10 mg PO DAILY Januvia 100 mg tablet 100 mg PO DAILY insulin glargine [Lantus Solostar U-100 Insulin] 100 unit/mL (3 mL) insulin pen 15 unit subcut BEDTIME quetiapine 150 mg tablet extended release 24 hr 150 mg PO BEDTIME fluticasone propion-salmeterol [Advair HFA] 115-21 mcg/actuation HFA aerosol inhaler 2 puff INHALATION BID Referrals: Jose Granados MD [Physician] - Print Language: Portuguese
[2023-07-12 17:32] LABS: MANUAL DIFF FLAG NO
[2023-07-12 17:33] LABS: Basophils Percent Auto 0.4 % (0-2); Eosinophils Absolute Auto 0.1 X10*3/uL (0.0-0.4); Eosinophils Percent Auto 0.9 % (0-4); Hemoglobin 17.7 g/dl (14.0-18.0); Imm Gran Abs Auto 0.03 X10*3/uL (0.00-0.03); Imm Gran Pct Auto 0.3 % (0.0-0.4); Lymphocytes Absolute Auto 2.3 X10*3/uL (1.2-4.9); Lymphocytes Percent Auto 25.2 % (20-40); Mean Corpuscular HGB Conc 34.7 g/dl (31.0-36.0); Mean Corpuscular Hemoglobin 29.1 pg (27.0-33.0); Mean Corpuscular Volume 83.7 fL (80.0-98.0); Mean Platelet Volume 9.9 fL (9.4-12.4); Monocytes Percent Auto 10.8 % (2-11); Neutrophils Absolute Auto 5.6 x10*3/uL (2.0-8.3); Neutrophils Percent Auto 62.4 % (45-73); Platelet Count 304 X10*3/uL (160-400); Red Blood Count 6.09 X10*6/uL (4.60-5.80); Red Cell Distribution Width 12.5 % (11.0-16.0); White Blood Count 9.1 X10*3/uL (4.8-10.8)
[2023-07-12 17:34] LABS: Appearance Urine Cloudy; Color Urine Yellow; Glucose Urine UA Negative (Negative); Leukocyte Esterase Urine Negative (Negative); Nitrite Urine Negative (Negative); PH 5.5 (5.0-9.0); Specific Gravity - Urine 1.025 (1.005-1.025); UMIC TRIGGER UACC YES; Urine Blood Negative (Negative); Urine Ketones Trace mg/dL (Negative); Urine Protein 30 (1+) mg/dL (Neg-Trace)
[2023-07-12 17:46] LABS: Alanine Aminotransferase 37 U/L (0-40); Albumin Level 4.8 g/dL (3.5-5.0); Alkaline Phosphatase 83 U/L (39-117); Anion Gap 21 (12-20); Aspartate Amino Transferase 29 U/L (5-37); Bilirubin Total 0.7 mg/dL (0.0-1.0); Blood Urea Nitrogen 18 mg/dL (9-16); Calcium 10.4 mg/dL (8.4-10.2); Carbon Dioxide 23 mmol/L (22-29); Chloride 97 mmol/L (96-108); Creatinine Clr Calc Pharmacy 62.3; Estimated Glomerular Filt Rate 56; Glucose Random 142 mg/dL (60-115); Sodium 137 mmol/L (135-145)
[2023-07-12 18:10] LABS: Influenza A PCR NEGATIVE (Negative); Influenza B PCR NEGATIVE (Negative); Resp Syncy Virus RNA Qual PCR NEGATIVE (Negative); SARS COV2 PCR INHOUSE NEGATIVE (Negative)
[2023-07-12] MEDS: Magnesium Hydrox/Alum Hydrox 30 ML ORAL.SUSP PO (19:37)
[2023-07-12] MEDS: Famotidine/PF 20 MG/2 ML VIAL IVPUSH (19:37)
[2023-07-12] MEDS: ondansetron HCL 4 MG/2 ML VIAL IVPUSH (19:37)
[2023-07-12] MEDS: 0.9 % Sodium Chloride 1,000 ML 999 ML IV (20:02)
[2023-07-12 20:20] LABS: Bacteria Urine None Seen (None Seen); Hyaline Casts Urine 0-2 /LPF (0-2); RBC Urine 0-2 /HPF (0-2); Squamous Epithelial Cell Urine 0-2 /HPF (0-2); WBC Urine 0-5 /HPF (0-5)
[2023-07-12 21:24] VITALS: BP 134/76; PULSE 66; RESP 18; TEMP 36.9; O2SAT 97
[2023-07-12 23:34] VITALS: BP 122/68; PULSE 72; RESP 18; TEMP 37; O2SAT 97
[2023-07-12 23:48] LABS: Lipase 216 U/L (8-78)
== END 2023-07-12 23:19 | disposition home or self-care (01) ==
PROVIDERS: Physician Assistant Medical; Emergency Provider Emergency Medicine
DX: R10.9 Unspecified abdominal pain (principal); R11.2 Nausea with vomiting, unspecified; E11.8 Type 2 diabetes mellitus with unspecified complications; F41.9 Anxiety disorder, unspecified; R35.0 Frequency of micturition; F17.210 Nicotine dependence, cigarettes, uncomplicated; F12.90 Cannabis use, unspecified, uncomplicated; Z79.4 Long term (current) use of insulin; Z79.84 Long term (current) use of oral hypoglycemic drugs; Z79.899 Other long term (current) drug therapy; Z03.818 Encounter for observation for suspected exposure to other biological agents ruled out
CPT/HCPCS: 0241U; 74176; 80053; 81001; 83690; 83735; 85025; 96361; 96374; 96375; 99284; J2405

== ENCOUNTER 2023-08-02 16:46 | Emergency (ER) | payer OTHER, SELFPAY | END 2023-08-02 17:45 | disposition left against medical advice (07) | PROVIDERS: Emergency Provider Emergency Medicine | DX: Z53.21 Procedure and treatment not carried out due to patient leaving prior to being seen by health care provider (principal); R10.9 Unspecified abdominal pain; K59.00 Constipation, unspecified ==

== ENCOUNTER 2023-08-03 23:58 | Emergency (ER) | payer OTHER, SELFPAY ==
[2023-08-04 00:15] VITALS: BP 142/59; PULSE 83; RESP 16; TEMP 36.7; O2SAT 96; BMI 27.4
[2023-08-04 00:43] LABS: MANUAL DIFF FLAG NO
[2023-08-04 00:45] LABS: Basophils Percent Auto 0.3 % (0-2); Eosinophils Absolute Auto 0.1 X10*3/uL (0.0-0.4); Eosinophils Percent Auto 1.1 % (0-4); Hematocrit 42.6 % (42.0-52.0); Hemoglobin 14.7 g/dl (14.0-18.0); Imm Gran Abs Auto 0.02 X10*3/uL (0.00-0.03); Imm Gran Pct Auto 0.2 % (0.0-0.4); Lymphocytes Absolute Auto 1.9 X10*3/uL (1.2-4.9); Lymphocytes Percent Auto 21.7 % (20-40); Mean Corpuscular HGB Conc 34.5 g/dl (31.0-36.0); Mean Corpuscular Hemoglobin 29.5 pg (27.0-33.0); Mean Corpuscular Volume 85.4 fL (80.0-98.0); Mean Platelet Volume 9.4 fL (9.4-12.4); Monocytes Absolute Auto 0.7 X10*3/uL (0.1-1.2); Monocytes Percent Auto 7.6 % (2-11); Neutrophils Absolute Auto 6.1 x10*3/uL (2.0-8.3); Neutrophils Percent Auto 69.1 % (45-73); Platelet Count 250 X10*3/uL (160-400); Red Blood Count 4.99 X10*6/uL (4.60-5.80); Red Cell Distribution Width 13.2 % (11.0-16.0); White Blood Count 8.9 X10*3/uL (4.8-10.8)
[2023-08-04 00:58] LABS: Alanine Aminotransferase 23 U/L (0-40); Albumin Level 4.2 g/dL (3.5-5.0); Alkaline Phosphatase 72 U/L (39-117); Anion Gap 16 (12-20); Aspartate Amino Transferase 20 U/L (5-37); Bilirubin Total 0.4 mg/dL (0.0-1.0); Blood Urea Nitrogen 19 mg/dL (9-16); Calcium 9.8 mg/dL (8.4-10.2); Carbon Dioxide 22 mmol/L (22-29); Chloride 105 mmol/L (96-108); Creatinine Clr Calc Pharmacy 71.5; Estimated Glomerular Filt Rate > 60; Glucose Random 173 mg/dL (60-115); Lipase 147 U/L (8-78); Potassium 3.7 mmol/L (3.3-5.1); Sodium 139 mmol/L (135-145); Total Protein 7.7 g/dL (6.5-8.0)
== END 2023-08-04 04:06 | disposition left against medical advice (07) ==
PROVIDERS: Emergency Provider Emergency Medicine
DX: R10.30 Lower abdominal pain, unspecified (principal); K59.00 Constipation, unspecified; F41.9 Anxiety disorder, unspecified; Z76.0 Encounter for issue of repeat prescription; E11.9 Type 2 diabetes mellitus without complications
CPT/HCPCS: 36415; 80053; 83690; 85025; 99281; 99283

== ENCOUNTER 2023-08-09 13:17 | Emergency (ER) | payer OTHER, SELFPAY | END 2023-08-09 17:43 | disposition left against medical advice (07) | PROVIDERS: Emergency Provider Emergency Medicine | DX: Z53.21 Procedure and treatment not carried out due to patient leaving prior to being seen by health care provider (principal); R10.9 Unspecified abdominal pain ==

== ENCOUNTER 2023-09-07 11:15 | Emergency (ER) | payer OTHER, SELFPAY ==
[2023-09-07 11:56] VITALS: BP 112/67; PULSE 68; RESP 18; TEMP 36.3; O2SAT 100; BMI 24.9
[2023-09-07 12:15] LABS: MANUAL DIFF FLAG NO
[2023-09-07 12:18] LABS: Basophils Absolute Auto 0.1 X10*3/uL (0.0-0.2); Basophils Percent Auto 0.5 % (0-2); Eosinophils Absolute Auto 0.1 X10*3/uL (0.0-0.4); Eosinophils Percent Auto 1.2 % (0-4); Hematocrit 45.4 % (42.0-52.0); Hemoglobin 15.3 g/dl (14.0-18.0); Imm Gran Abs Auto 0.03 X10*3/uL (0.00-0.03); Imm Gran Pct Auto 0.3 % (0.0-0.4); Lymphocytes Absolute Auto 1.8 X10*3/uL (1.2-4.9); Lymphocytes Percent Auto 18.3 % (20-40); Mean Corpuscular HGB Conc 33.7 g/dl (31.0-36.0); Mean Corpuscular Hemoglobin 29.4 pg (27.0-33.0); Mean Corpuscular Volume 87.3 fL (80.0-98.0); Mean Platelet Volume 9.9 fL (9.4-12.4); Monocytes Absolute Auto 0.9 X10*3/uL (0.1-1.2); Monocytes Percent Auto 9.2 % (2-11); Neutrophils Absolute Auto 6.7 x10*3/uL (2.0-8.3); Neutrophils Percent Auto 70.5 % (45-73); Platelet Count 239 X10*3/uL (160-400); White Blood Count 9.5 X10*3/uL (4.8-10.8)
[2023-09-07 12:20] LABS: Appearance Urine Clear; Color Urine Dark Yellow; Glucose Urine UA Negative (Negative); Leukocyte Esterase Urine Negative (Negative); Nitrite Urine Negative (Negative); PH 5.5 (5.0-9.0); Specific Gravity - Urine >= 1.030 (1.005-1.025); UMIC TRIGGER UACC YES; Urine Blood Negative (Negative); Urine Ketones Trace mg/dL (Negative); Urine Protein 30 (1+) mg/dL (Neg-Trace)
[2023-09-07 12:23] LABS: Bacteria Urine None Seen (None Seen); Hyaline Casts Urine 0-2 /LPF (0-2); RBC Urine 0-2 /HPF (0-2); Squamous Epithelial Cell Urine 0-2 /HPF (0-2); WBC Urine 0-5 /HPF (0-5)
[2023-09-07 12:32] LABS: Alanine Aminotransferase 21 U/L (0-40); Albumin Level 4.6 g/dL (3.5-5.0); Alkaline Phosphatase 78 U/L (39-117); Anion Gap 14 (12-20); Aspartate Amino Transferase 27 U/L (5-37); Bilirubin Total 0.5 mg/dL (0.0-1.0); Blood Urea Nitrogen 22 mg/dL (9-16); Calcium 9.7 mg/dL (8.4-10.2); Carbon Dioxide 28 mmol/L (22-29); Chloride 103 mmol/L (96-108); Creatinine Clr Calc Pharmacy 59.5; Estimated Glomerular Filt Rate 58; Glucose Random 114 mg/dL (60-115); Potassium 3.8 mmol/L (3.3-5.1); Sodium 141 mmol/L (135-145); Total Protein 8.2 g/dL (6.5-8.0)
[2023-09-07 16:02] VITALS: BP 118/64; PULSE 68; RESP 18; TEMP 35.9; O2SAT 98
== END 2023-09-07 16:54 | disposition left against medical advice (07) ==
PROVIDERS: Emergency Provider Emergency Medicine; PCP Internal Medicine
DX: M54.50 Low back pain, unspecified (principal); Z79.899 Other long term (current) drug therapy
CPT/HCPCS: 36415; 80053; 81001; 85025; 99281; 99282

== ENCOUNTER 2023-09-14 10:23 | Emergency (ER) | payer OTHER, SELFPAY ==
--- NOTE | ~2023-09-14 | XR_ITS ---
EXAMINATION: XR LUMBOSACRAL SPINE CLINICAL INFORMATION: Tenderness on right COMPARISON: CT abdomen pelvis 07/12/2023 TECHNIQUE: Three views of the lumbosacral spine. FINDINGS: The vertebral bodies and posterior elements are unremarkable. The disc spaces are preserved and the vertebral alignment is normal. The paraspinal soft tissues are normal. XR/XR lumbar spine 2-3V IMPRESSION: Unremarkable examination.
[2023-09-14 10:46] VITALS: BP 124/67; PULSE 94; RESP 18; TEMP 37; O2SAT 98; BMI 25.1
--- NOTE | 2023-09-14 11:13 | ED_ITS ---
HPI - General Adult General Chief complaint: Back Pain/Injury Stated complaint: back pain Time Seen by Provider: 09/14/23 11:13 Source: patient Mode of arrival: ambulatory Limitations: no limitations History of Present Illness ED Provider: Rosy ONTIVEROS narrative: Patient is a 58-year-old male presenting to the emergency department with complaint of right lower back pain which began this morning. States that he is chronic pain to this area but pain this morning has been worse than normal. States pain is radiating to right leg. Denies any numbness or tingling. Denies any recent falls or other trauma. Reports that he did have a fall [place] approximately 5 years ago and has had chronic pain since that time. Took ibuprofen at home with little relief. Denies any saddle anesthesia or bowel or bladder incontinence. Denies fevers. Denies any urinary symptoms. MD complaint: Back pain Onset (ago): hour(s) Location: back Radiation: extremity Severity: severe Quality: sharp Pain Consistency: constant Relieving factors: rest Exacerbating factors: movement Associated symptoms: denies other symptoms Treatments prior to arrival: NSAID Related Data Home Medications ?Medication ?Instructions ?Recorded ?Confirmed albuterol sulfate 90 mcg/actuation 2 puff inhalation QID PRN wheezing 06/25/23 06/25/23 aerosol inhaler (Ventolin HFA) aspirin 81 mg tablet,delayed 81 mg PO DAILY 06/25/23 06/25/23 release fluticasone propionate 115 2 puff inhalation BID 06/25/23 06/25/23 mcg-salmeterol 21 mcg/actuation HFA inhaler (Advair HFA) gabapentin 300 mg capsule 300 mg PO BID 06/25/23 06/25/23 insulin glargine 100 unit/mL (3 15 unit subcut BEDTIME 06/25/23 06/25/23 mL) subcutaneous pen (Lantus Solostar U-100 Insulin) lorazepam 1 mg tablet 1 mg PO TID 06/25/23 06/25/23 metformin 1,000 mg tablet 1,000 mg PO BID 06/25/23 06/25/23 omeprazole 20 mg capsule,delayed 20 mg PO DAILY 06/25/23 06/25/23 release paroxetine HCl 30 mg tablet 30 mg PO BID 06/25/23 06/25/23 polyethylene glycol 3350 17 17 g PO BID PRN Constipation 06/25/23 06/25/23 gram/dose oral powder quetiapine 150 mg tablet,extended 150 mg PO BEDTIME 06/25/23 06/25/23 release 24 hr rosuvastatin 10 mg tablet 10 mg PO DAILY 06/25/23 06/25/23 sitagliptin phosphate 100 mg 100 mg PO DAILY 06/25/23 06/25/23 tablet (Januvia) Allergies Allergy/AdvReac Type Severity Reaction Status Date / Time glipizide [GLIPIZIDE] Allergy Intermediate ITCHY Verified 09/14/23 10:47 acetaminophen [From TYLOX] AdvReac Intermediate CHEST PAINS Verified 09/14/23 10:47 oxycodone [From TYLOX] AdvReac Intermediate CHEST PAINS Verified 09/14/23 10:47 Review of Systems Review of Systems: As per HPI. Yes all other systems are reviewed and are negative Constitutional: Constitutional: Reports as per HPI REPLACED BY [facility] Past Medical History Medical History Anxiety Diabetes Social History Social History Household Members: Spouse Housing: Apartment Do you presently have visiting nurse or other home services: No Patient Tobacco Use Status: Current everyday Tobacco user Cigarettes Per Day: 10 Substance Use Type: Marijuana Advance Directives: Yes Advance Directives on File: Yes Advance Directives Date on File: 10/24/21 service: No Physical Exam ED Vital Signs: Vital Signs - 24 hr 09/14/23 10:46 Temperature 98.6 F Pulse Rate 94 Respiratory Rate 18 Blood Pressure 124/67 Pulse Oximetry 98 Oxygen Delivery Method Room Air BMI result Body Mass Index 25.1 Vital signs have been reviewed and appear to be correct. Blood pressure normal. Heart rate normal. Respiratory rate normal. Temperature normal. Oxygen saturation normal. Const General: cooperative, healthy appearing and no acute distress Orientation/consciousness: oriented to person, oriented to place, oriented to time and patient oriented x3 Limitations: no limitations HENMT Head: Yes normocephalic and Yes atraumatic Ears: external ears normal General nose exam: Normal external nose present Face and sinus: Yes face symmetric Mouth: oropharynx normal and moist mucous membranes Throat: Yes uvula midline Eyes Pupils: Equal, round and reactive pupils present Neck Neck: Yes normal visual inspection, Yes no meningeal signs and Yes supple Resp Effort & Inspection: normal respiratory effort and able to speak in complete sentences Auscultation: clear to auscultation bilaterally Cardio Rate: regular rate Rhythm: regular rhythm Heart sounds: S1 normal heart sound present and S2 normal heart sound present GI Palpation (GI): Soft to palpation and nontender Auscultation: normoactive bowel sounds General: Yes no CVA tenderness Back/Spine/Pelvis Back: no CVA tenderness Thoracic/Lumbar Spine: thoracic and lumbar spine normal to inspection, thoraco- lumbar ROM normal, pain with thoraco-lumbar ROM, paraspinal muscle tenderness on the right in the lower lumbar, No thoracic spinal tenderness, No lumbar spinal tenderness and straight leg raise positive right Skin General skin exam: elasticity normal and turgor normal Neuro General: oriented to person, oriented to place, oriented to time, patient oriented x3, gait normal, tone normal, moves all extremities, Normal light touch and pain sensation, no meningeal signs, no focal motor deficits, CN's II-XI intact bilaterally and deep tendon reflexes 2+ bilaterally Cranial nerves: Yes Equal, round and reactive pupils present Cognition (Neuro): normal cognition Motor exam (neuro): 5/5 motor strength present throughout Extrem General: Yes full ROM, Yes no pedal edema and Yes no calf tenderness Psych Mental Status: mental status grossly normal Affect: normal affect Thought process: Normal thought process present Medications Administered Discontinued Medications Generic Name Dose Route Start Last Admin Trade Name Freq PRN Reason Stop Dose Admin Ketorolac Tromethamine 30 mg 09/14/23 13:20 09/14/23 13:48 Ketorolac Tromethamine 30 Mg/Ml Vial IM 09/14/23 13:21 30 mg ONCE ONE Administration Prednisone 40 mg 09/14/23 13:20 09/14/23 13:48 Prednisone 20 Mg Tablet PO 09/14/23 13:21 40 mg ONCE ONE Administration Medical Decision Making Medical Decision Making MDM Narrative: Patient is a 58-year-old male presenting to the emergency department with complaint of right lower back pain which began this morning. On exam patient is awake, A+Ox3, VS WNL, afebrile, normal neurological exam without focal deficits, physical exam findings as above. Given reported symptoms and physical exam findings, initial differential includes lumbar strain, lumbar radiculopathy, degenerative disc disease, disc herniation, spinal stenosis, spondylosis. Less likely vertebral fracture. Do not suspect malignancy/mass, SEA, cauda equina/cord compression. X-ray lumbar spine unremarkable. My interpretation is in agreement with the radiologist's interpretation. Patient left from the emergency department without completing treatment prior to receiving x-ray results. Differential Diagnosis Differential Diagnoses: The differential diagnosis associated with the presentation includes As per [facility] Lab Data [facility] Lab Attestation statement: I reviewed the patient's lab results. Labs: Lab Results 09/14/23 Range/Units 13:52 POC Glucose 85 (60-115) mg/dL Independent Interpretation I performed an independent interpretation of an: Plain X-Ray Interpretation: Unremarkable lumbar spine x-ray Radiology Impression Discussion of test interpretation with radiology: I have reviewed the radiologist's reading. Radiologist Impression: XR/XR lumbar spine 2-3V IMPRESSION: Unremarkable examination. External Record Review External record reviewed: Inpatient record, Office record and Outpatient record Prescription Management I considered prescription management with: Pain Medication (patient LWCT) Discharge Plan Discharge Clinical Impression: Strain of lumbar region Patient Disposition: Left W/O Completing Treatment Prescriptions: No Action aspirin 81 mg tablet,delayed release (DR/EC) 81 mg PO DAILY paroxetine HCl 30 mg tablet 30 mg PO BID metformin 1,000 mg tablet 1,000 mg PO BID gabapentin 300 mg capsule 300 mg PO BID omeprazole 20 mg capsule,delayed release(DR/EC) 20 mg PO DAILY lorazepam 1 mg tablet 1 mg PO TID polyethylene glycol 3350 17 gram/dose powder 17 g PO BID PRN (Reason: Constipation) albuterol sulfate [Ventolin HFA] 90 mcg/actuation HFA aerosol inhaler 2 puff INHALATION QID PRN (Reason: wheezing) rosuvastatin 10 mg tablet 10 mg PO DAILY Januvia 100 mg tablet 100 mg PO DAILY insulin glargine [Lantus Solostar U-100 Insulin] 100 unit/mL (3 mL) insulin pen 15 unit subcut BEDTIME quetiapine 150 mg tablet extended release 24 hr 150 mg PO BEDTIME fluticasone propion-salmeterol [Advair HFA] 115-21 mcg/actuation HFA aerosol inhaler 2 puff INHALATION BID Print Language: Yakut
[2023-09-14] MEDS: Ketorolac Tromethamine 30 MG/ML VIAL IM (13:48)
[2023-09-14] MEDS: predniSONE 20 MG TABLET 40 MG PO (13:48)
[2023-09-14 13:56] LABS: Glucose, Whole Blood 85 mg/dL (60-115)
[2023-09-14 14:44] VITALS: BP 124/67; PULSE 94; RESP 18; TEMP 37; O2SAT 98
--- NOTE | 2023-09-14 14:44 | PC.NURSE ---
went to the room to vital the pt and he was not in the room. informed georgette BROWN
== END 2023-09-14 14:45 | disposition left against medical advice (07) ==
PROVIDERS: Emergency Provider Emergency Medicine; PCP Internal Medicine
DX: S39.012A Strain of muscle, fascia and tendon of lower back, initial encounter (principal); R53.83 Other fatigue; M79.604 Pain in right leg; Y33.XXXA Other specified events, undetermined intent, initial encounter; Y93.9 Activity, unspecified; Y92.89 Other specified places as the place of occurrence of the external cause; Y99.8 Other external cause status
CPT/HCPCS: 72100; 82947; 96372; 99283; 99284; J1885

== ENCOUNTER 2023-09-16 04:33 | Emergency (ER) | payer OTHER, SELFPAY ==
[2023-09-16 04:40] VITALS: BP 121/69; PULSE 77; RESP 12; TEMP 36.7; O2SAT 98
[2023-09-16 04:45] VITALS: BP 140/67; PULSE 89; O2SAT 97
[2023-09-16 04:47] VITALS: BP 121/69; PULSE 77; RESP 12; TEMP 36.7; O2SAT 98; BMI 26.3
--- NOTE | 2023-09-16 04:58 | PC.NURSE ---
Pt reports he is hearing voices but unable to verbalize what the voices are saying. Pt denies SI/HI Pt tangential when attempting to explain what brings him in to the ED Plan of care ongoing.
--- NOTE | 2023-09-16 04:59 | ED_ITS ---
HPI - Psych General Chief Complaint: Altered Mental Status Stated Complaint: crisis? hallucinations Time Seen by Provider: 09/16/23 04:50 Source: patient and old records reviewed Mode of arrival: EMS Limitations: no limitations History of Present Illness ED Provider: MICHAEL ONTIVEROS Narrative: 58 yo male with PMH of DM, HLD, asthma, GERD, anxiety - on quetiapine, paroxetine he went to the police station tonight c/o hearing voices, people watching him having sex with his , neighbors talking about him. He denies SI/HI. He seems unfazed on arrival here and admits to voices then cannot verbalize to us what he has heard. MD complaint: hallucinations Onset (ago): unknown Duration: constant History of same: Yes Relieving factors: none Exacerbating factors: other Associated psychiatric symptoms: none Associated symptoms: denies other symptoms Treatments prior to arrival: none Related Data Home Medications ?Medication ?Instructions ?Recorded ?Confirmed albuterol sulfate 90 mcg/actuation 2 puff inhalation QID PRN wheezing 06/25/23 06/25/23 aerosol inhaler (Ventolin HFA) aspirin 81 mg tablet,delayed 81 mg PO DAILY 06/25/23 06/25/23 release fluticasone propionate 115 2 puff inhalation BID 06/25/23 06/25/23 mcg-salmeterol 21 mcg/actuation HFA inhaler (Advair HFA) gabapentin 300 mg capsule 300 mg PO BID 06/25/23 06/25/23 insulin glargine 100 unit/mL (3 15 unit subcut BEDTIME 06/25/23 06/25/23 mL) subcutaneous pen (Lantus Solostar U-100 Insulin) lorazepam 1 mg tablet 1 mg PO TID 06/25/23 06/25/23 metformin 1,000 mg tablet 1,000 mg PO BID 06/25/23 06/25/23 omeprazole 20 mg capsule,delayed 20 mg PO DAILY 06/25/23 06/25/23 release paroxetine HCl 30 mg tablet 30 mg PO BID 06/25/23 06/25/23 polyethylene glycol 3350 17 17 g PO BID PRN Constipation 06/25/23 06/25/23 gram/dose oral powder quetiapine 150 mg tablet,extended 150 mg PO BEDTIME 06/25/23 06/25/23 release 24 hr rosuvastatin 10 mg tablet 10 mg PO DAILY 06/25/23 06/25/23 sitagliptin phosphate 100 mg 100 mg PO DAILY 06/25/23 06/25/23 tablet (Januvia) Allergies Allergy/AdvReac Type Severity Reaction Status Date / Time glipizide [GLIPIZIDE] Allergy Intermediate ITCHY Verified 09/16/23 04:49 acetaminophen [From TYLOX] AdvReac Intermediate CHEST PAINS Verified 09/16/23 04:49 oxycodone [From TYLOX] AdvReac Intermediate CHEST PAINS Verified 09/16/23 04:49 Review of Systems 2 Review of Systems: Constitutional : No Fever, No Chills ENT/Mouth : No Ear Pain, No Nasal Congestion, No sore throat Eyes: No Eye Pain, No Swelling, No Redness Cardiovascular : No Chest Pain, No SOB Respiratory : No Cough, No Sputum, No Dyspnea Gastrointestinal : No Nausea, No Vomiting, No Diarrhea, No Hematochezia, No Melena Genitourinary : No Dysuria, No Urinary Frequency, No Hematuria Musculoskeletal : No Myalgias Skin : No Skin Lesions, No rash Neuro : No Weakness, No Numbness, No Paresthesias, No Dizziness, No Headache Psych : positive Anxiety, no Depression, no SI/HI, pos AH All other systems reviewed and are negative [facility] Past Medical History Attestation statement: The following information was validated with the patient. Source: old records reviewed Medical History Anxiety Diabetes Social History Social History Household Members: Spouse Housing: Apartment Do you presently have visiting nurse or other home services: No Patient Tobacco Use Status: Current everyday Tobacco user Cigarettes Per Day: 10 Substance Use Type: Marijuana Advance Directives: Yes Advance Directives on File: Yes Advance Directives Date on File: 10/24/21 service: No Physical Exam 2 Vital Signs: Vital Signs: Last Vital Signs Temp 98.1 F 09/16/23 04:47 Pulse 77 09/16/23 04:47 Resp 12 09/16/23 04:47 BP 121/69 09/16/23 04:47 Pulse Ox 98 09/16/23 04:47 O2 Del Method Room Air 09/16/23 04:47 BMI result Body Mass Index 26.3 Appearance: Alert seems sleepy but easily woken and has conversation Oriented X3. No acute distress. calm and cooperative Eyes: Pupils equal, round and reactive to light. ENT: Pharynx normal. atraumatic Neck: Normal inspection. Neck supple. CVS: Normal heart rate and rhythm. Pulses normal. Respiratory: No respiratory distress. Breath sounds normal. Abdomen: Soft and nontender. Skin: Skin warm and dry. Normal skin color. Normal skin turgor. Extremities: No lower extremity edema. No calf ttp Neuro: Oriented X 3. No motor deficit. No sensory deficit. CN 2-12intact Course Course Course Narrative: likely cocaine induced delusions Medical Decision Making Medical Decision Making [facility] Narrative: 58 yo male with PMH of DM, HLD, asthma, GERD, anxiety here calm and cooperative reporting AH but very vague with what is happening but told EMS and police multiple things about neighbors. He had recent MRI back in May. He has no signs of head trauma. At this time will obtain basic labs, drug screen, CARE team consult. Differential Diagnosis Differential Diagnoses: The differential diagnosis associated with the presentation includes drug use, psychosis Admission/Observation Consideration of admission/observation: Escalation of care including admission/observation considered physician observation ordered pending CARE team 5am had MRI back in May that showed mild to moderate chronic microangiopathy Lab Data [facility] Lab Attestation statement: I reviewed the patient's lab results. 09/16/23 05:04 09/16/23 05:04 Labs: Lab Results 09/16/23 09/16/23 Range/Units 05:03 05:04 WBC 7.2 (4.8-10.8) X10*3/uL RBC 4.68 (4.60-5.80) X10*6/uL Hgb 13.8 L (14.0-18.0) g/dl Hct 39.6 L (42.0-52.0) % MCV 84.6 (80.0-98.0) fL MCH 29.5 (27.0-33.0) pg MCHC 34.8 (31.0-36.0) g/dl RDW 12.8 (11.0-16.0) % Plt Count 184 (160-400) X10*3/uL MPV 10.2 (9.4-12.4) fL Immature Gran % (Auto) 0.3 (0.0-0.4) % Neut % (Auto) 59.3 (45-73) % Lymph % (Auto) 27.4 (20-40) % [place] % (Auto) 10.9 (2-11) % Eos % (Auto) 1.7 (0-4) % Baso % (Auto) 0.4 (0-2) % Lymph # (Auto) 2.0 (1.2-4.9) X10*3/uL [place] # (Auto) 0.8 (0.1-1.2) X10*3/uL Eos # (Auto) 0.1 (0.0-0.4) X10*3/uL Baso # (Auto) 0.0 (0.0-0.2) X10*3/uL Abs Immat Gran (auto) 0.02 (0.00-0.03) X10*3/uL Absolute Neuts (auto) 4.3 (2.0-8.3) x10*3/uL Absolute Nucleated RBC 0.000 (0.0-0.012) X10*3/uL Nucleated RBC % (auto) 0.0 (0.0-0.2) /100WBC Sodium 140 (135-145) mmol/L Potassium 3.0 L D (3.3-5.1) mmol/L Chloride 106 (96-108) mmol/L Carbon Dioxide 21 L (22-29) mmol/L Anion Gap 16 (12-20) BUN 15 (9-16) mg/dL Creatinine 0.84 (0.5-1.4) mg/dL Estim Creat Clear Calc 87.5 Estimated GFR > 60 Random Glucose 146 H (60-115) mg/dL Calcium 8.8 D (8.4-10.2) mg/dL Magnesium 2.0 (1.6-2.6) mg/dL Total Bilirubin 0.3 (0.0-1.0) mg/dL Direct Bilirubin 0.1 (0.0-0.5) mg/dL AST 29 (5-37) U/L ALT 24 (0-40) U/L Alkaline Phosphatase 69 (39-117) U/L Total Protein 7.0 (6.5-8.0) g/dL Albumin 3.9 (3.5-5.0) g/dL Urine Opiates Screen Not Detected (Not Detect) Ur Buprenorphine Scrn Not Detected (Not Detect) ng/mL Ur Oxycodone Screen Not Detected (Not Detect) ng/mL Urine Methadone Screen Not Detected (Not Detect) ng/mL Urine Fentanyl Screen Not Detected (Not Detect) Ur Barbiturates Screen Not Detected (Not Detect) Ur Phencyclidine Scrn Not Detected (Not Detect) Ur Amphetamines Screen Not Detected (Not Detect) U Benzodiazepines Scrn Not Detected (Not Detect) Urine Cocaine Screen POSITIVE H (Not Detect) U Marijuana (THC) Screen POSITIVE H (Not Detect) Ethyl Alcohol < 10 mg/dL Independent Historian Clinical information obtained from an independent historian. History obtained from or confirmed by: EMS External Record Review External record reviewed: Inpatient record Discharge Plan Discharge Clinical Impression: Auditory hallucination, Cocaine abuse, Acute hypokalemia Patient Disposition: Still a Patient Prescriptions: No Action aspirin 81 mg tablet,delayed release (DR/EC) 81 mg PO DAILY paroxetine HCl 30 mg tablet 30 mg PO BID metformin 1,000 mg tablet 1,000 mg PO BID gabapentin 300 mg capsule 300 mg PO BID omeprazole 20 mg capsule,delayed release(DR/EC) 20 mg PO DAILY lorazepam 1 mg tablet 1 mg PO TID polyethylene glycol 3350 17 gram/dose powder 17 g PO BID PRN (Reason: Constipation) albuterol sulfate [Ventolin HFA] 90 mcg/actuation HFA aerosol inhaler 2 puff INHALATION QID PRN (Reason: wheezing) rosuvastatin 10 mg tablet 10 mg PO DAILY Januvia 100 mg tablet 100 mg PO DAILY insulin glargine [Lantus Solostar U-100 Insulin] 100 unit/mL (3 mL) insulin pen 15 unit subcut BEDTIME quetiapine 150 mg tablet extended release 24 hr 150 mg PO BEDTIME fluticasone propion-salmeterol [Advair HFA] 115-21 mcg/actuation HFA aerosol inhaler 2 puff INHALATION BID Print Language: Telugu
[2023-09-16 05:09] LABS: Basophils Percent Auto 0.4 % (0-2); Eosinophils Absolute Auto 0.1 X10*3/uL (0.0-0.4); Eosinophils Percent Auto 1.7 % (0-4); Hematocrit 39.6 % (42.0-52.0); Hemoglobin 13.8 g/dl (14.0-18.0); Imm Gran Abs Auto 0.02 X10*3/uL (0.00-0.03); Imm Gran Pct Auto 0.3 % (0.0-0.4); Lymphocytes Percent Auto 27.4 % (20-40); MANUAL DIFF FLAG NO; Mean Corpuscular HGB Conc 34.8 g/dl (31.0-36.0); Mean Corpuscular Hemoglobin 29.5 pg (27.0-33.0); Mean Corpuscular Volume 84.6 fL (80.0-98.0); Mean Platelet Volume 10.2 fL (9.4-12.4); Monocytes Absolute Auto 0.8 X10*3/uL (0.1-1.2); Monocytes Percent Auto 10.9 % (2-11); Neutrophils Absolute Auto 4.3 x10*3/uL (2.0-8.3); Neutrophils Percent Auto 59.3 % (45-73); Platelet Count 184 X10*3/uL (160-400); Red Blood Count 4.68 X10*6/uL (4.60-5.80); Red Cell Distribution Width 12.8 % (11.0-16.0); White Blood Count 7.2 X10*3/uL (4.8-10.8)
[2023-09-16 05:27] LABS: Amphetamine Screen Urine Not Detected (Not Detect); Barbiturates, Urine Not Detected (Not Detect); Benzodiazepines Screen Urine Not Detected (Not Detect); Buprenorphine Scr Not Detected (Not Detect); Cannabinoid Screen Urine POSITIVE (Not Detect); Cocaine Screen Urine POSITIVE (Not Detect); Fentanyl, urine Not Detected (Not Detect); Methadone Screen, Urine Not Detected (Not Detect); Opiate Screen Urine Not Detected (Not Detect); Oxycodone Screen Urine Not Detected (Not Detect); Phencyclidine Screen Urine Not Detected (Not Detect)
[2023-09-16 05:28] LABS: Alanine Aminotransferase 24 U/L (0-40); Albumin Level 3.9 g/dL (3.5-5.0); Alkaline Phosphatase 69 U/L (39-117); Anion Gap 16 (12-20); Aspartate Amino Transferase 29 U/L (5-37); Bilirubin Direct 0.1 mg/dL (0.0-0.5); Bilirubin Total 0.3 mg/dL (0.0-1.0); Blood Urea Nitrogen 15 mg/dL (9-16); Calcium 8.8 mg/dL (8.4-10.2); Carbon Dioxide 21 mmol/L (22-29); Chloride 106 mmol/L (96-108); Creatinine Clr Calc Pharmacy 87.5; Estimated Glomerular Filt Rate > 60; Ethanol < 10 mg/dL; Glucose Random 146 mg/dL (60-115); Sodium 140 mmol/L (135-145)
[2023-09-16 06:29] VITALS: BP 105/51; PULSE 74; RESP 16; TEMP 36.7; O2SAT 96
[2023-09-16] MEDS: Potassium Chloride ER 20 MEQ TAB.ER.PRT 40 MEQ PO (06:30)
--- NOTE | 2023-09-16 06:33 | PC.NURSE ---
Pt medicated per apr. Plan of care ongoing.
[2023-09-16 07:30] LABS: Glucose, Whole Blood 112 mg/dL (60-115)
[2023-09-16 09:36] VITALS: BP 149/72; PULSE 84; RESP 15; TEMP 36.6; O2SAT 98
--- NOTE | 2023-09-16 14:12 | PC.NURSE ---
While this RN was in another pt room Glenis from [facility] went to go eval the pt but the pt was not in the room or bathroom. Pt left prior to completing tx
== END 2023-09-16 10:30 | disposition still patient (30) ==
PROVIDERS: Emergency Medicine; Emergency Provider Emergency Medicine
DX: R44.0 Auditory hallucinations (principal); F14.10 Cocaine abuse, uncomplicated; E87.6 Hypokalemia; F41.9 Anxiety disorder, unspecified; E11.9 Type 2 diabetes mellitus without complications; E78.5 Hyperlipidemia, unspecified; J45.909 Unspecified asthma, uncomplicated; F17.210 Nicotine dependence, cigarettes, uncomplicated; Z79.899 Other long term (current) drug therapy; Z79.82 Long term (current) use of aspirin; Z79.4 Long term (current) use of insulin; Z79.84 Long term (current) use of oral hypoglycemic drugs
CPT/HCPCS: 36415; 80048; 80076; 80307; 82947; 83735; 85025; 99284

== ENCOUNTER 2023-09-16 12:20 | Inpatient (IN) | payer OTHER, SELFPAY ==
--- NOTE | 2023-09-16 | ECG_ITS ---
Test Reason : CHECK PROLONG QT Blood Pressure : / mmHG Vent. Rate : 075 BPM Atrial Rate : 086 BPM P-R Int : 140 ms QRS Dur : 084 ms QT Int : 384 ms P-R-T Axes : 046 064 033 degrees QTc Int : 428 ms Normal sinus rhythm with sinus arrhythmia Normal ECG When compared with ECG of 25-JUN-2023 02:06, No significant change was found Referred By: Srikanth Dao Electronically Signed By:FRANKIE DOTY MD
[2023-09-16 12:36] VITALS: BP 116/55; PULSE 80; RESP 18; TEMP 36.6; O2SAT 96; BMI 28.0
[2023-09-16 12:38] VITALS: BP 116/55; PULSE 80; RESP 18; TEMP 36.6; O2SAT 96
[2023-09-16 12:40] LABS: Glucose, Whole Blood 151 mg/dL (60-115)
--- NOTE | 2023-09-16 12:42 | MHC.CARE ---
Pt eloped from the main ED after a crisis assessment was conducted and collateral information was being obtained. Security was contacted and informed. Care crew team member and leadership were informed. [facility] was contacted to perform a well being check and place Pt on a Section 12 to transport back to the ED for concerns of paranoia, hallucinations, and suicidal ideation. Pt was located at his home in [place] and transported back to the ED on a Section 12a
--- NOTE | 2023-09-16 13:57 | ED.GENADULT ---
HPI - General Adult General Chief complaint: Psychiatric Symptoms Stated complaint: SEC 12,HEARING VOICES PER EMS Time Seen by Provider: 09/16/23 13:56 History of Present Illness ED Provider: Sylwia ONTIVEROS narrative: The patient is a 58-year-old male who was in the emergency room her earlier today. He had come to the emergency department after going to the police station complaining of hearing voices. He also complained that he thought that people were watching him have sex with his and that neighbors were talking about him. He seemed to be paranoid. He was medically cleared for a psychiatric evaluation but eloped from the emergency room. Police were contact and he was returned to the emergency room under a section 12 because of his auditory hallucinations and paranoia. Related Data Home Medications ?Medication ?Instructions ?Recorded ?Confirmed albuterol sulfate 90 mcg/actuation 2 puff inhalation QID PRN wheezing 06/25/23 09/16/23 aerosol inhaler (Ventolin HFA) aspirin 81 mg tablet,delayed 81 mg PO DAILY 06/25/23 09/16/23 release fluticasone propionate 115 2 puff inhalation BID 06/25/23 09/16/23 mcg-salmeterol 21 mcg/actuation HFA inhaler (Advair HFA) gabapentin 300 mg capsule 300 mg PO BID 06/25/23 09/16/23 insulin glargine 100 unit/mL (3 15 unit subcut BEDTIME 06/25/23 09/16/23 mL) subcutaneous pen (Lantus Solostar U-100 Insulin) lorazepam 1 mg tablet 1 mg PO TID 06/25/23 09/16/23 metformin 1,000 mg tablet 1,000 mg PO BID 06/25/23 09/16/23 omeprazole 20 mg capsule,delayed 20 mg PO DAILY 06/25/23 09/16/23 release paroxetine HCl 30 mg tablet 30 mg PO BID 06/25/23 09/16/23 polyethylene glycol 3350 17 17 g PO BID PRN Constipation 06/25/23 09/16/23 gram/dose oral powder quetiapine 150 mg tablet,extended 150 mg PO BEDTIME 06/25/23 09/16/23 release 24 hr rosuvastatin 10 mg tablet 10 mg PO DAILY 06/25/23 09/16/23 sitagliptin phosphate 100 mg 100 mg PO DAILY 06/25/23 09/16/23 tablet (Januvia) Allergies Allergy/AdvReac Type Severity Reaction Status Date / Time glipizide [GLIPIZIDE] Allergy Intermediate ITCHY Verified 09/16/23 12:37 acetaminophen [From TYLOX] AdvReac Intermediate CHEST PAINS Verified 09/16/23 12:37 oxycodone [From TYLOX] AdvReac Intermediate CHEST PAINS Verified 09/16/23 12:37 Review of Systems Review of Systems: Yes all other systems are reviewed and are negative [facility] Past Medical History Medical History Anxiety Diabetes Social History Social History Household Members: Spouse Housing: Apartment Do you presently have visiting nurse or other home services: No Patient Tobacco Use Status: Current everyday Tobacco user Cigarettes Per Day: 10 Substance Use Type: Crack/Cocaine and Marijuana Advance Directives: Yes Advance Directives on File: Yes Advance Directives Date on File: 10/24/21 Do you have a plan to hurt others: No Plan service: No Physical Exam ED Vital Signs: Vital Signs - 24 hr 09/16/23 12:36 09/16/23 12:38 Temperature 97.8 F 97.8 F Pulse Rate 80 80 Respiratory Rate 18 18 Blood Pressure 116/55 L 116/55 L Pulse Oximetry 96 96 Oxygen Delivery Method Room Air Room Air BMI result Body Mass Index 28.0 Const Other: The patient is awake and alert. He does not seem in any distress. He looks physically healthy [facility] Other: Face is symmetrical. Mucous membranes moist Eyes Other: Pupils are round, equal, and reactive to light, extraocular movements intact. Neck Other: No JVD, moving his neck easily Resp Effort & Inspection: normal respiratory effort Auscultation: clear to auscultation bilaterally Cardio Rate: regular rate Rhythm: regular rhythm Heart sounds: S1 normal heart sound present and S2 normal heart sound present GI Other: Abdomen is soft and nontender Skin Other: Skin is dry and unremarkable Neuro Other: The patient is awake and alert. Pleasant demeanor. Cranial nerves 2-12 are grossly intact. He moves all 4 extremities symmetrically. Coordination was normal throughout. He is neurologically intact Extrem Other: No peripheral edema. Psych Other: The patient has a somewhat intense affect and seems to have poor insight into his predicament. Medical Decision Making Medical Decision Making MDM Narrative: The patient is a 58-year-old who has been expressing paranoid symptoms. He eloped from the emergency room but was then brought back under a section 12. He seems to remain medically stable and clear for psychiatric disposition. Lab Data 09/16/23 14:29 09/16/23 14:29 Labs: Lab Results 09/16/23 09/16/23 09/16/23 Range/Units 12:36 14:29 14:31 WBC 6.5 (4.8-10.8) X10*3/uL RBC 4.75 (4.60-5.80) X10*6/uL Hgb 13.8 L (14.0-18.0) g/dl Hct 41.2 L (42.0-52.0) % MCV 86.7 (80.0-98.0) fL MCH 29.1 (27.0-33.0) pg MCHC 33.5 (31.0-36.0) g/dl RDW 13.0 (11.0-16.0) % Plt Count 192 (160-400) X10*3/uL MPV 10.4 (9.4-12.4) fL Immature Gran % (Auto) 0.3 (0.0-0.4) % Neut % (Auto) 61.4 (45-73) % Lymph % (Auto) 25.0 (20-40) % [place] % (Auto) 11.2 H (2-11) % Eos % (Auto) 1.6 (0-4) % Baso % (Auto) 0.5 (0-2) % Lymph # (Auto) 1.6 (1.2-4.9) X10*3/uL [place] # (Auto) 0.7 (0.1-1.2) X10*3/uL Eos # (Auto) 0.1 (0.0-0.4) X10*3/uL Baso # (Auto) 0.0 (0.0-0.2) X10*3/uL Abs Immat Gran (auto) 0.02 (0.00-0.03) X10*3/uL Absolute Neuts (auto) 4.0 (2.0-8.3) x10*3/uL Absolute Nucleated RBC 0.000 (0.0-0.012) X10*3/uL Nucleated RBC % (auto) 0.0 (0.0-0.2) /100WBC Sodium 142 (135-145) mmol/L Potassium 3.5 (3.3-5.1) mmol/L Chloride 106 (96-108) mmol/L Carbon Dioxide 28 (22-29) mmol/L Anion Gap 12 (12-20) BUN 15 (9-16) mg/dL Creatinine 0.95 (0.5-1.4) mg/dL Estim Creat Clear Calc 79.0 Estimated GFR > 60 POC Glucose 151 H (60-115) mg/dL Random Glucose 149 H (60-115) mg/dL Calcium 9.2 (8.4-10.2) mg/dL Urine Color Dark Yellow Urine Appearance Clear Urine pH 6.0 (5.0-9.0) Ur Specific [place] >= 1.030 H (1.005-1.025) Urine Protein Trace (Neg-Trace) mg/dL Urine Glucose (UA) Negative (Negative) mg/dL Urine Ketones Trace (Negative) mg/dL Urine Blood Negative (Negative) Urine Nitrite Negative (Negative) Ur Leukocyte Esterase Negative (Negative) Salicylates < 5.0 L (15-30) mg/dL Urine Opiates Screen Not Detected (Not Detect) Ur Buprenorphine Scrn Not Detected (Not Detect) ng/mL Ur Oxycodone Screen Not Detected (Not Detect) ng/mL Urine Methadone Screen Not Detected (Not Detect) ng/mL Urine Fentanyl Screen Not Detected (Not Detect) Acetaminophen < 3 (<30) mcg/mL Ur Barbiturates Screen Not Detected (Not Detect) Ur Phencyclidine Scrn Not Detected (Not Detect) Ur Amphetamines Screen Not Detected (Not Detect) U Benzodiazepines Scrn Not Detected (Not Detect) Urine Cocaine Screen POSITIVE H (Not Detect) U Marijuana (THC) Screen POSITIVE H (Not Detect) Ethyl Alcohol < 10 mg/dL Discharge Plan Discharge Clinical Impression: Auditory hallucinations Patient Disposition: Admitted As Inpatient Interventions: [place]-Suicide Risk Severity Scale Last Done: 09/16/23 12:38
[2023-09-16 14:42] LABS: MANUAL DIFF FLAG NO
[2023-09-16 14:45] LABS: Basophils Percent Auto 0.5 % (0-2); Eosinophils Absolute Auto 0.1 X10*3/uL (0.0-0.4); Eosinophils Percent Auto 1.6 % (0-4); Hematocrit 41.2 % (42.0-52.0); Hemoglobin 13.8 g/dl (14.0-18.0); Imm Gran Abs Auto 0.02 X10*3/uL (0.00-0.03); Imm Gran Pct Auto 0.3 % (0.0-0.4); Lymphocytes Absolute Auto 1.6 X10*3/uL (1.2-4.9); Mean Corpuscular HGB Conc 33.5 g/dl (31.0-36.0); Mean Corpuscular Hemoglobin 29.1 pg (27.0-33.0); Mean Corpuscular Volume 86.7 fL (80.0-98.0); Mean Platelet Volume 10.4 fL (9.4-12.4); Monocytes Absolute Auto 0.7 X10*3/uL (0.1-1.2); Monocytes Percent Auto 11.2 % (2-11); Neutrophils Percent Auto 61.4 % (45-73); Platelet Count 192 X10*3/uL (160-400); Red Blood Count 4.75 X10*6/uL (4.60-5.80); White Blood Count 6.5 X10*3/uL (4.8-10.8)
[2023-09-16 14:47] LABS: Appearance Urine Clear; Color Urine Dark Yellow; Glucose Urine UA Negative (Negative); Leukocyte Esterase Urine Negative (Negative); Nitrite Urine Negative (Negative); Specific Gravity - Urine >= 1.030 (1.005-1.025); Urine Blood Negative (Negative); Urine Ketones Trace mg/dL (Negative); Urine Protein Trace mg/dL (Neg-Trace)
[2023-09-16 14:54] LABS: Amphetamine Screen Urine Not Detected (Not Detect); Barbiturates, Urine Not Detected (Not Detect); Benzodiazepines Screen Urine Not Detected (Not Detect); Buprenorphine Scr Not Detected (Not Detect); Cannabinoid Screen Urine POSITIVE (Not Detect); Cocaine Screen Urine POSITIVE (Not Detect); Fentanyl, urine Not Detected (Not Detect); Methadone Screen, Urine Not Detected (Not Detect); Opiate Screen Urine Not Detected (Not Detect); Oxycodone Screen Urine Not Detected (Not Detect); Phencyclidine Screen Urine Not Detected (Not Detect)
[2023-09-16 14:58] LABS: Anion Gap 12 (12-20); Blood Urea Nitrogen 15 mg/dL (9-16); Calcium 9.2 mg/dL (8.4-10.2); Carbon Dioxide 28 mmol/L (22-29); Chloride 106 mmol/L (96-108); Estimated Glomerular Filt Rate > 60; Ethanol < 10 mg/dL; Glucose Random 149 mg/dL (60-115); Potassium 3.5 mmol/L (3.3-5.1); Sodium 142 mmol/L (135-145)
[2023-09-16 14:59] LABS: Acetaminophen LAB < 3 mcg/mL (<30); Salicylate < 5.0 mg/dL (15-30)
--- NOTE | 2023-09-16 15:25 | MHC.CARE ---
[facility] auth for Pt is as follows. Gautam from [facility] approved 6 days starting 09/15 and ending 09/20 with a review on 09/20 with Rosanna. Auth #[id number]
--- NOTE | 2023-09-16 17:21 | PHA.MEDREC ---
Pharmacy Consult ? Medication Reconciliation Pharmacy has completed the medication reconciliation. Pharmacy has reviewed the med rec completed by Aníbal Pearson .
[2023-09-16 18:40] VITALS: BP 123/59; PULSE 68; RESP 16; TEMP 36.4; O2SAT 98
[2023-09-16 19:40] VITALS: BMI 27.0
--- NOTE | 2023-09-16 19:52 | PC.ADMIT ---
Addendum entered by Leni Ingram RN 09/16/23 20:27: pt reports he is on probation through [facility] court for 1 year for an assault on someone who was bothering his . He states he has 7 months remaining Original Note: Pt arrived on the unit at 1640 on CV from [facility]. Pt reports he was brought in due to hearing voices but was vague in description. Crisis eval states he also reported people watching him and his having sex . Pt was initially brought into the hospital on a section 12 and eloped from the ED because it was taking too long and no one would give me answers about what was going on'. Pt was shortly picked up again by the PD and returned to the hospital. During admission assessment pt is pleasant, calm, ad cooperative. He reports he is no longer experiencing auditory hallucination or other psychiatric symptoms. Tox screen positive for cocaine and THC. Pt reports he drinks occasionally. He denies a therapist or psychiatrist. He reports he receives his medications from his PCP who's name he could not remember and is a diabetic and receives insulin. Safety check performed, vitals obtained, and pt oriented to the unit. Placed on 15minute checks for safety.
[2023-09-16 20:00] VITALS: BP 142/65; PULSE 68; RESP 16; TEMP 36.4; O2SAT 99
[2023-09-16 21:46] LABS: Glucose, Whole Blood 170 mg/dL (60-115)
[2023-09-16] MEDS: Insulin Lispro 100 UNIT/ML 3 ML VIAL SUBCUT (22:02)
[2023-09-16] MEDS: Insulin Glargine,Hum.rec.anlog 100 UNIT/ML 10 ML VIAL 15 UNIT SUBCUT (22:03)
[2023-09-16] MEDS: QUEtiapine Fumarate 50 MG TABLET 75 MG PO (22:03)
[2023-09-16] MEDS: Gabapentin 300 MG CAPSULE PO (22:03)
[2023-09-16] MEDS: metFORMIN HCl 1,000 MG TABLET 1000 MG PO (22:03)
[2023-09-16] MEDS: LORazepam 1 MG TABLET PO (22:03)
[2023-09-16] MEDS: PARoxetine HCL 30 MG TABLET PO (22:04)
[2023-09-17] MEDS: Omeprazole 20 MG CAPSULE.DR PO (06:38)
[2023-09-17 07:00] VITALS: BMI 27.5
[2023-09-17] MEDS: Nicotine Polacrilex 2 MG GUM 4 MG BUCCAL ×2 (07:09→20:06)
[2023-09-17 07:37] VITALS: BP 117/60; PULSE 67; RESP 16; TEMP 36.4; O2SAT 97
[2023-09-17 08:34] LABS: Glucose, Whole Blood 135 mg/dL (60-115)
--- NOTE | 2023-09-17 09:04 | HO.PSYADMNOT ---
HPI Date of Service: 09/17/23 Chief Complaint: mental health crisis Sources of Information: patient interviewed, chart reviewed and crisis/core team assessment reviewed HPI Subjective Notes: Chowdary Warning and Conditional Voluntary Narrative: Patient is a 58 year old male with hx of MDD and cocaine use d/o, who self presented to ER d/t auditory hallucinations and paranoia secondary to cocaine use. Per crisis report, pt was brought into ER by police secondary to eloping from the ED during a crisis assessment and returning home. Pt initially came in reporting that people are putting some kind of tracker on my clothes. There is something red I can see that was put in my eye to track me I got a lot of things tracking me . Patient reported auditory hallucinations of family members talking crying and plotting things against him. Patient denied SI/HI. Patient's reported that patient has been making passive suicidal statements for the past few months. Patient's reported pt does not have a history of paranoia or auditory hallucinations. She did report that patient has been using cocaine nonstop all weekend . Patient would not allow family to go home on Thursday because he believed someone was trying to kill them. UTOX positive for cocaine, marijuana. Patient denied any history of inpatient psychiatric hospitalizations, [facility], and [facility] admissions. Patient denies any history of suicide attempts or self-harming behaviors. He does report an admission to [facility] and the [facility] over 10 years ago. During admission assessment, pt presents alert, oriented, calm and cooperative. Pt stated, I was hearing voices to do stupid stuff. I came to the emergency room because of the threats from the voices. The voices were saying they were going to kill me and my . Patient reports he only used cocaine for 1 day and not for days. Patient reports he currently does not have an outpatient psychiatrist or therapist however he would like a referral for both. Patient reports he receives his psychiatric medications from his PCP. Patient reports medication compliance. Patient denies SI/HI/VH/AH. Past Psychiatric History: 1st inpatient psychiatric admission. 1 detox admission at [facility] Medical Evaluation Reviewed: Yes [facility] Medical History Anxiety Diabetes Family History: unknown Social History: Lives with , 4 children (2 adults, 2 13y/o who live in [place] with pt's brother), disability. Highschool diploma. Substance History: Cocaine and marijuana. Trauma History: denies Diagnostics Vital Signs (24Hr): Vital Signs - 24 hr 09/16/23 12:36 09/16/23 12:38 09/16/23 18:40 Temperature 97.8 F 97.8 F 97.5 F Pulse Rate 80 80 68 Respiratory Rate 18 18 16 Blood Pressure 116/55 L 116/55 L 123/59 L Pulse Oximetry 96 96 98 Oxygen Delivery Method Room Air Room Air Room Air 09/16/23 20:00 09/17/23 07:37 Temperature 97.5 F 97.5 F Pulse Rate 68 67 Respiratory Rate 16 16 Blood Pressure 142/65 H 117/60 Pulse Oximetry 99 97 Oxygen Delivery Method Room Air Room Air BMI result Body Mass Index 27.0 Labs 09/16/23 14:29 09/16/23 14:29 Labs: Laboratory Results - last 48 hr 09/16/23 09/16/23 09/16/23 12:36 14:29 14:31 WBC 6.5 RBC 4.75 Hgb 13.8 L Hct 41.2 L MCV 86.7 MCH 29.1 MCHC 33.5 RDW 13.0 Plt Count 192 MPV 10.4 Immature Gran % (Auto) 0.3 Neut % (Auto) 61.4 Lymph % (Auto) 25.0 [place] % (Auto) 11.2 H Eos % (Auto) 1.6 Baso % (Auto) 0.5 Lymph # (Auto) 1.6 [place] # (Auto) 0.7 Eos # (Auto) 0.1 Baso # (Auto) 0.0 Abs Immat Gran (auto) 0.02 Absolute Neuts (auto) 4.0 Absolute Nucleated RBC 0.000 Nucleated RBC % (auto) 0.0 Sodium 142 Potassium 3.5 Chloride 106 Carbon Dioxide 28 Anion Gap 12 BUN 15 Creatinine 0.95 Estim Creat Clear Calc 79.0 Estimated GFR > 60 POC Glucose 151 H Random Glucose 149 H Calcium 9.2 Urine Color Dark Yellow Urine Appearance Clear Urine pH 6.0 Ur Specific [place] >= 1.030 H Urine Protein Trace Urine Glucose (UA) Negative Urine Ketones Trace Urine Blood Negative Urine Nitrite Negative Ur Leukocyte Esterase Negative Salicylates < 5.0 L Urine Opiates Screen Not Detected Ur Buprenorphine Scrn Not Detected Ur Oxycodone Screen Not Detected Urine Methadone Screen Not Detected Urine Fentanyl Screen Not Detected Acetaminophen < 3 Ur Barbiturates Screen Not Detected Ur Phencyclidine Scrn Not Detected Ur Amphetamines Screen Not Detected U Benzodiazepines Scrn Not Detected Urine Cocaine Screen POSITIVE H U Marijuana (THC) Screen POSITIVE H Ethyl Alcohol < 10 09/16/23 09/17/23 21:43 08:30 WBC RBC Hgb Hct MCV MCH MCHC RDW Plt Count MPV Immature Gran % (Auto) Neut % (Auto) Lymph % (Auto) [place] % (Auto) Eos % (Auto) Baso % (Auto) Lymph # (Auto) [place] # (Auto) Eos # (Auto) Baso # (Auto) Abs Immat Gran (auto) Absolute Neuts (auto) Absolute Nucleated RBC Nucleated RBC % (auto) Sodium Potassium Chloride Carbon Dioxide Anion Gap BUN Creatinine Estim Creat Clear Calc Estimated GFR POC Glucose 170 H 135 H Random Glucose Calcium Urine Color Urine Appearance Urine pH Ur Specific [place] Urine Protein Urine Glucose (UA) Urine Ketones Urine Blood Urine Nitrite Ur Leukocyte Esterase Salicylates Urine Opiates Screen Ur Buprenorphine Scrn Ur Oxycodone Screen Urine Methadone Screen Urine Fentanyl Screen Acetaminophen Ur Barbiturates Screen Ur Phencyclidine Scrn Ur Amphetamines Screen U Benzodiazepines Scrn Urine Cocaine Screen U Marijuana (THC) Screen Ethyl Alcohol Meds/Allergies Meds Home Medications ?Medication ?Instructions ?Recorded ?Confirmed ?Type albuterol sulfate 90 mcg/actuation 2 puff inhalation QID PRN wheezing 06/25/23 09/16/23 History aerosol inhaler (Ventolin HFA) aspirin 81 mg tablet,delayed 81 mg PO DAILY 06/25/23 09/16/23 History release fluticasone propionate 115 2 puff inhalation BID 06/25/23 09/16/23 History mcg-salmeterol 21 mcg/actuation HFA inhaler (Advair HFA) gabapentin 300 mg capsule 300 mg PO BID 06/25/23 09/16/23 History insulin glargine 100 unit/mL (3 15 unit subcut BEDTIME 06/25/23 09/16/23 History mL) subcutaneous pen (Lantus Solostar U-100 Insulin) lorazepam 1 mg tablet 1 mg PO TID 06/25/23 09/16/23 History metformin 1,000 mg tablet 1,000 mg PO BID 06/25/23 09/16/23 History omeprazole 20 mg capsule,delayed 20 mg PO DAILY@0630,1630 06/25/23 09/16/23 History release paroxetine HCl 30 mg tablet 30 mg PO BID 06/25/23 09/16/23 History polyethylene glycol 3350 17 17 g PO BID PRN Constipation 06/25/23 09/16/23 History gram/dose oral powder quetiapine 150 mg tablet,extended 150 mg PO BEDTIME 06/25/23 09/16/23 History release 24 hr rosuvastatin 10 mg tablet 10 mg PO DAILY 06/25/23 09/16/23 History sitagliptin phosphate 100 mg 100 mg PO DAILY 06/25/23 09/16/23 History tablet (Januvia) Allergies Allergies Allergy/AdvReac Type Severity Reaction Status Date / Time glipizide [GLIPIZIDE] Allergy Intermediate ITCHY Verified 09/16/23 12:37 acetaminophen [From TYLOX] AdvReac Intermediate CHEST PAINS Verified 09/16/23 12:37 oxycodone [From TYLOX] AdvReac Intermediate CHEST PAINS Verified 09/16/23 12:37 Mental Status Exam Mental Status Exam Narrative: Pt is alert and oriented; behavior is cooperative, friendly and calm; dressed in casual; mood is described as okay ; eye contact appropriate; Speech is normal rate, volume and not pressured; thought process is organized; Thought content is on tx; denies SI/HI/VH/AH. Assessment & Plan Assessment & Plan (1) MDD (major depressive disorder), recurrent episode, moderate: Status: Acute Code(s): F33.1 - Major depressive disorder, recurrent, moderate (2) Cocaine use disorder: Status: Acute Code(s): F14.10 - Cocaine abuse, uncomplicated Plan Patient is a 58 year old male with hx of MDD and cocaine use d/o, who self presented to ER d/t auditory hallucinations and paranoia secondary to cocaine use. Plan: CV 15 minute safety checks continue home medications referral to outpatient prescriber and therapist encourage groups discharge planning Patient educated on: diagnosis, medication risk/benefits, substance abuse and therapeutic strategies Informed Consent: understands Reason for continued inpatient stay Substantial Risk for: harm to self and med/psych decompensation Statement Statement: I have reviewed the history and physical and performed a pertinent examination on my patient. No changes have occurred unless specified. If the History and Physical was not performed prior to admission, the Hospitalist's service will be consulted for completing the admission physical. Time Spent With Patient Time: Total time managing care of this patient today _60___ minutes.
[2023-09-17 09:05] LABS: Estimated Average Glucose 134 mg/dL; Hemoglobin A1c % 6.3 % (<6.0)
[2023-09-17] MEDS: Fluticasone/Vilanterol 100/25 BLST.W.DEV 1 PUFF INHALE (09:19)
[2023-09-17] MEDS: QUEtiapine Fumarate 50 MG TABLET 75 MG PO ×2 (09:19→22:09)
[2023-09-17] MEDS: SITagliptin Phosphate 100 MG TABLET PO (09:19)
[2023-09-17] MEDS: PARoxetine HCL 30 MG TABLET PO ×2 (09:20→22:11)
[2023-09-17] MEDS: metFORMIN HCl 1,000 MG TABLET 1000 MG PO ×2 (09:20→22:11)
[2023-09-17] MEDS: Aspirin Enteric Coated 81 MG TABLET.DR PO (09:20)
[2023-09-17] MEDS: LORazepam 1 MG TABLET PO ×3 (09:20→22:08)
[2023-09-17] MEDS: Atorvastatin Calcium 40 MG TABLET PO (09:20)
[2023-09-17] MEDS: Gabapentin 300 MG CAPSULE PO ×2 (09:20→22:11)
[2023-09-17 09:23] LABS: Cholesterol 119 mg/dL (<200); HDL Cholesterol 32 mg/dL (>40); LDL Cholesterol Calculated 48 mg/dL (<100); Triglycerides 198 mg/dL (<150)
[2023-09-17 09:37] LABS: Free T4 (Free Thyroxine) 0.92 ng/dL (0.71-1.85); Thyroid Stimulating Hormone 0.62 uIU/mL (0.32-4.0)
[2023-09-17 09:51] LABS: Folate 5.1 ng/mL (> or = 4.0)
[2023-09-17 12:04] LABS: Glucose, Whole Blood 152 mg/dL (60-115)
[2023-09-17] MEDS: Insulin Lispro 100 UNIT/ML 3 ML VIAL SUBCUT (12:53)
[2023-09-17 18:02] LABS: Glucose, Whole Blood 149 mg/dL (60-115)
[2023-09-17] MEDS: Milk of Magnesia 30 ML ORAL.SUSP PO (18:36)
[2023-09-17] MEDS: Acetaminophen 325 MG TABLET 650 MG PO (18:37)
[2023-09-17 20:00] VITALS: BP 116/63; PULSE 68; TEMP 36.4; O2SAT 100
[2023-09-17 21:11] LABS: Glucose, Whole Blood 119 mg/dL (60-115)
[2023-09-17] MEDS: Insulin Glargine,Hum.rec.anlog 100 UNIT/ML 10 ML VIAL 15 UNIT SUBCUT (22:04)
[2023-09-18] MEDS: Omeprazole 20 MG CAPSULE.DR PO (06:21)
[2023-09-18 07:46] VITALS: BP 151/75; PULSE 87; RESP 18; TEMP 36.5; O2SAT 98
[2023-09-18] MEDS: Aspirin Enteric Coated 81 MG TABLET.DR PO (08:34)
[2023-09-18] MEDS: Gabapentin 300 MG CAPSULE PO ×2 (08:34→22:06)
[2023-09-18] MEDS: PARoxetine HCL 30 MG TABLET PO ×2 (08:35→22:06)
[2023-09-18] MEDS: SITagliptin Phosphate 100 MG TABLET PO (08:35)
[2023-09-18] MEDS: Atorvastatin Calcium 40 MG TABLET PO (08:35)
[2023-09-18] MEDS: QUEtiapine Fumarate 50 MG TABLET 75 MG PO ×2 (08:35→22:05)
[2023-09-18] MEDS: LORazepam 1 MG TABLET PO ×3 (08:35→22:06)
[2023-09-18] MEDS: metFORMIN HCl 1,000 MG TABLET 1000 MG PO ×2 (08:35→22:06)
[2023-09-18] MEDS: Nicotine Polacrilex 2 MG GUM 4 MG BUCCAL (08:36)
[2023-09-18 08:55] LABS: Glucose, Whole Blood 104 mg/dL (60-115)
[2023-09-18] MEDS: Fluticasone/Vilanterol 100/25 BLST.W.DEV 1 PUFF INHALE (09:02)
[2023-09-18] MEDS: Acetaminophen 325 MG TABLET 650 MG PO (10:46)
[2023-09-18 13:10] LABS: Glucose, Whole Blood 195 mg/dL (60-115)
[2023-09-18] MEDS: Insulin Lispro 100 UNIT/ML 3 ML VIAL SUBCUT ×2 (13:15→22:11)
[2023-09-18] MEDS: polyethylene glycoL 3350 17 GM POWD.PACK PO ×2 (13:18→20:35)
--- NOTE | 2023-09-18 17:07 | P.PNPSI_ITS ---
Subjective Subjective Date of Service: 09/18/23 Reason For Visit: mental health crisis Interim History: calm, cooperative. no complaints or requests. per staff, 3-day up thursday. denies all psych Sx. states he misses his . feels ready to DC. visible, social. slept well. Mental Status Exam Mental Status Exam Narrative: Pt is alert and oriented; behavior is cooperative, friendly and calm; dressed in casual attire; mood is described as ok; eye contact appropriate; Speech is normal rate, volume and not pressured; thought process is organized; Thought content is on tx; denies SI/HI/VH/AH. Diagnostics Vital Signs (24Hr): Vital Signs - 24 hr 09/17/23 20:00 09/18/23 07:46 Temperature 97.5 F 97.7 F Pulse Rate 68 87 Respiratory Rate 18 Blood Pressure 116/63 151/75 H Pulse Oximetry 100 98 Oxygen Delivery Method Room Air Room Air BMI result Body Mass Index 27.5 Labs 09/16/23 14:29 09/16/23 14:29 Labs: Laboratory Results - last 48 hr 09/16/23 09/17/23 09/17/23 21:43 08:30 08:46 POC Glucose 170 H 135 H Estimat Average Glucose 134 Hemoglobin A1c % 6.3 H Triglycerides 198 H Cholesterol 119 LDL Cholesterol, Calc 48 HDL Cholesterol 32 L Folate 5.1 TSH 0.62 Free T4 0.92 09/17/23 09/17/23 09/17/23 11:58 17:57 21:06 POC Glucose 152 H 149 H 119 H Estimat Average Glucose Hemoglobin A1c % Triglycerides Cholesterol LDL Cholesterol, Calc HDL Cholesterol Folate TSH Free T4 09/18/23 09/18/23 08:51 12:45 POC Glucose 104 195 H Estimat Average Glucose Hemoglobin A1c % Triglycerides Cholesterol LDL Cholesterol, Calc HDL Cholesterol Folate TSH Free T4 Medications Medications Current Medications Acetaminophen (Acetaminophen 325 Mg Tablet) 650 mg PO Q6H PRN PRN Reason: Headache/Pain Mild Scale (1-3) Last Admin: 09/18/23 10:46 Dose: 650 mg Al Hydroxide/Mg Hydroxide (Magnesium Hydrox/Alum Hydrox 30 Ml Oral.Susp) 30 ml PO Q6H PRN PRN Reason: Heartburn/Nausea Albuterol Sulfate (Albuterol Sulfate 90 Mcg 8 Gm Inhaler) 2 puff INHALE QID PRN PRN Reason: wheezing Aspirin (Aspirin Enteric Coated 81 Mg Tablet.) 81 mg PO DAILY [facility] Last Admin: 09/18/23 08:34 Dose: 81 mg Atorvastatin Calcium (Atorvastatin Calcium 40 Mg Tablet) 40 mg PO DAILY [facility] Last Admin: 09/18/23 08:35 Dose: 40 mg Fluticasone/Vilanterol (Fluticasone/Vilanterol 100/25 Blst.W.Dev) 1 puff INHALE RDAILY [facility] Last Admin: 09/18/23 09:02 Dose: 1 puff Gabapentin (Gabapentin 300 Mg Capsule) 300 mg PO BID [facility] Last Admin: 09/18/23 08:34 Dose: 300 mg Glucose (Glucose Gel 15 Gm Gel..Gram.) 15 gm PO Q15M PRN; Protocol PRN Reason: per Hypoglycemia Standing Ord. Hydroxyzine HCl (Hydroxyzine Hcl 25 Mg Tablet) 25 mg PO Q6H PRN PRN Reason: Anxiety Dextrose (D10) 250 mls @ 750 mls/hr IV Q15M PRN; Protocol PRN Reason: per Hypoglycemia Standing Ord. Insulin Glargine (Insulin Glargine,Hum.Rec.Anlog 100 Unit/Ml 10 Ml Vial) 15 unit SUBCUT BEDTIME [facility] Last Admin: 09/17/23 22:04 Dose: 15 unit Insulin Human Lispro (Insulin Lispro 100 Unit/Ml 3 Ml Vial) 0 unit SUBCUT QIDACHS [facility]; Protocol Last Admin: 09/18/23 13:15 Dose: 2 unit Lorazepam (Lorazepam 1 Mg Tablet) 1 mg PO TID [facility] Last Admin: 09/18/23 14:27 Dose: 1 mg Magnesium Hydroxide (Milk Of Magnesia 30 Ml Oral.Susp) 30 ml PO DAILY PRN PRN Reason: Constipation Last Admin: 09/17/23 18:36 Dose: 30 ml Metformin HCl (Metformin Hcl 1,000 Mg Tablet) 1,000 mg PO BID [facility] Last Admin: 09/18/23 08:35 Dose: 1,000 mg Nicotine Polacrilex (Nicotine Polacrilex 2 Mg Gum) 4 mg BUCCAL Q2H PRN PRN Reason: Nicotine Cravings Last Admin: 09/18/23 08:36 Dose: 4 mg Omeprazole (Omeprazole 20 Mg Capsule.) 20 mg PO DAILY@0630 [facility] Last Admin: 07/19/24 06:21 Dose: 20 mg Paroxetine HCl (Paroxetine Hcl 30 Mg Tablet) 30 mg PO BID [facility] Last Admin: 09/18/23 08:35 Dose: 30 mg Polyethylene Glycol (Polyethylene Glycol 3350 17 Gm Powd.Pack) 17 gm PO BID PRN PRN Reason: Constipation Last Admin: 09/18/23 13:18 Dose: 17 gm Quetiapine Fumarate (Quetiapine Fumarate 50 Mg Tablet) 75 mg PO BID [facility] Last Admin: 09/18/23 08:35 Dose: 75 mg Sitagliptin Phosphate (Sitagliptin Phosphate 100 Mg Tablet) 100 mg PO DAILY [facility] Last Admin: 09/18/23 08:35 Dose: 100 mg Trazodone HCl (Trazodone Hcl 50 Mg Tablet) 50 mg PO BEDTIME MRX1 PRN PRN Reason: Insomnia Allergies Allergies Allergy/AdvReac Type Severity Reaction Status Date / Time glipizide [GLIPIZIDE] Allergy Intermediate ITCHY Verified 09/16/23 12:37 acetaminophen [From TYLOX] AdvReac Intermediate CHEST PAINS Verified 09/16/23 12:37 oxycodone [From TYLOX] AdvReac Intermediate CHEST PAINS Verified 09/16/23 12:37 Assessment & Plan Assessment & Plan (1) MDD (major depressive disorder), recurrent episode, moderate: Status: Acute Code(s): F33.1 - Major depressive disorder, recurrent, moderate (2) Cocaine use disorder: Status: Acute Code(s): F14.10 - Cocaine abuse, uncomplicated Plan Patient is a 58 year old male with hx of MDD and cocaine use d/o, who self presented to ER d/t auditory hallucinations and paranoia secondary to cocaine use. Plan: CV 15 minute safety checks continue home medications referral to outpatient prescriber and therapist encourage groups discharge planning 09/17: calm, cooperative, euthymic. 3-day up thursday. planning to discharge thursday. Reason for continued inpatient stay Substantial Risk for: rapid decompensation Time Spent With Patient Time: Total time managing care of this patient today ____ minutes.
[2023-09-18 17:56] LABS: Glucose, Whole Blood 132 mg/dL (60-115)
[2023-09-18 21:26] VITALS: BP 119/60; PULSE 67; RESP 16; TEMP 36.2; O2SAT 97
[2023-09-18 21:56] LABS: Glucose, Whole Blood 209 mg/dL (60-115)
[2023-09-18] MEDS: Insulin Glargine,Hum.rec.anlog 100 UNIT/ML 10 ML VIAL 15 UNIT SUBCUT (22:11)
[2023-09-19] MEDS: Nicotine Polacrilex 2 MG GUM 4 MG BUCCAL ×3 (05:20→19:12)
[2023-09-19] MEDS: Omeprazole 20 MG CAPSULE.DR PO (05:34)
--- NOTE | 2023-09-19 08:16 | HO.PSYCHPN ---
Subjective Subjective Date of Service: 09/19/23 Reason For Visit: mental health crisis Interim History: overall reports things are going well. Feeling well cared for. Looking forward to discharge after the weekend. Much less depressed and anxious- still feeling it though. No hallucinations. Feeling positive regarding medications. Report to being outside and around nature. Medication Compliance: Yes Side effects from medications: No Attending Groups: Intermittent Review of Systems Acute medical concerns: No Review of Systems Review of Systems Yes all other systems are reviewed and are negative Mental Status Exam Mental Status Exam Narrative: Pt is alert and oriented; behavior is cooperative, friendly and calm; dressed in casual attire; mood is described as good eye contact appropriate; Speech is normal rate, volume and not pressured; thought process is organized; Thought content is on tx; denies SI/HI/VH/AH. Diagnostics Vital Signs (24Hr): Vital Signs - 24 hr 09/18/23 21:26 Temperature 97.2 F Pulse Rate 67 Respiratory Rate 16 Blood Pressure 119/60 Pulse Oximetry 97 Oxygen Delivery Method Room Air BMI result Body Mass Index 27.5 Labs 09/16/23 14:29 09/16/23 14:29 Labs: Laboratory Results - last 48 hr 09/17/23 09/17/23 09/17/23 08:30 08:46 11:58 POC Glucose 135 H 152 H Estimat Average Glucose 134 Hemoglobin A1c % 6.3 H Triglycerides 198 H Cholesterol 119 LDL Cholesterol, Calc 48 HDL Cholesterol 32 L Folate 5.1 TSH 0.62 Free T4 0.92 09/17/23 09/17/23 09/18/23 17:57 21:06 08:51 POC Glucose 149 H 119 H 104 Estimat Average Glucose Hemoglobin A1c % Triglycerides Cholesterol LDL Cholesterol, Calc HDL Cholesterol Folate TSH Free T4 09/18/23 09/18/23 09/18/23 12:45 17:46 21:52 POC Glucose 195 H 132 H 209 H Estimat Average Glucose Hemoglobin A1c % Triglycerides Cholesterol LDL Cholesterol, Calc HDL Cholesterol Folate TSH Free T4 Medications Medications Current Medications Acetaminophen (Acetaminophen 325 Mg Tablet) 650 mg PO Q6H PRN PRN Reason: Headache/Pain Mild Scale (1-3) Last Admin: 09/18/23 10:46 Dose: 650 mg Al Hydroxide/Mg Hydroxide (Magnesium Hydrox/Alum Hydrox 30 Ml Oral.Susp) 30 ml PO Q6H PRN PRN Reason: Heartburn/Nausea Albuterol Sulfate (Albuterol Sulfate 90 Mcg 8 Gm Inhaler) 2 puff INHALE QID PRN PRN Reason: wheezing Aspirin (Aspirin Enteric Coated 81 Mg Tablet.Dr) 81 mg PO DAILY [facility] Last Admin: 09/18/23 08:34 Dose: 81 mg Atorvastatin Calcium (Atorvastatin Calcium 40 Mg Tablet) 40 mg PO DAILY [facility] Last Admin: 09/18/23 08:35 Dose: 40 mg Fluticasone/Vilanterol (Fluticasone/Vilanterol 100/25 Blst.W.Dev) 1 puff INHALE RDAILY [facility] Last Admin: 09/18/23 09:02 Dose: 1 puff Gabapentin (Gabapentin 300 Mg Capsule) 300 mg PO BID [facility] Last Admin: 09/18/23 22:06 Dose: 300 mg Glucose (Glucose Gel 15 Gm Gel..Gram.) 15 gm PO Q15M PRN; Protocol PRN Reason: per Hypoglycemia Standing Ord. Hydroxyzine HCl (Hydroxyzine Hcl 25 Mg Tablet) 25 mg PO Q6H PRN PRN Reason: Anxiety Dextrose (D10) 250 mls @ 750 mls/hr IV Q15M PRN; Protocol PRN Reason: per Hypoglycemia Standing Ord. Insulin Glargine (Insulin Glargine,Hum.Rec.Anlog 100 Unit/Ml 10 Ml Vial) 15 unit SUBCUT BEDTIME [facility] Last Admin: 09/18/23 22:11 Dose: 15 unit Insulin Human Lispro (Insulin Lispro 100 Unit/Ml 3 Ml Vial) 0 unit SUBCUT QIDACHS [facility]; Protocol Last Admin: 09/18/23 22:11 Dose: 4 unit Lorazepam (Lorazepam 1 Mg Tablet) 1 mg PO TID [facility] Last Admin: 09/18/23 22:06 Dose: 1 mg Magnesium Hydroxide (Milk Of Magnesia 30 Ml Oral.Susp) 30 ml PO DAILY PRN PRN Reason: Constipation Last Admin: 09/17/23 18:36 Dose: 30 ml Metformin HCl (Metformin Hcl 1,000 Mg Tablet) 1,000 mg PO BID [facility] Last Admin: 09/18/23 22:06 Dose: 1,000 mg Nicotine Polacrilex (Nicotine Polacrilex 2 Mg Gum) 4 mg BUCCAL Q2H PRN PRN Reason: Nicotine Cravings Last Admin: 09/19/23 05:20 Dose: 4 mg Omeprazole (Omeprazole 20 Mg Capsule.) 20 mg PO DAILY@0630 [facility] Last Admin: 09/19/23 05:34 Dose: 20 mg Paroxetine HCl (Paroxetine Hcl 30 Mg Tablet) 30 mg PO BID [facility] Last Admin: 09/18/23 22:06 Dose: 30 mg Polyethylene Glycol (Polyethylene Glycol 3350 17 Gm Powd.Pack) 17 gm PO BID PRN PRN Reason: Constipation Last Admin: 09/18/23 20:35 Dose: 17 gm Quetiapine Fumarate (Quetiapine Fumarate 50 Mg Tablet) 75 mg PO BID [facility] Last Admin: 09/18/23 22:05 Dose: 75 mg Sitagliptin Phosphate (Sitagliptin Phosphate 100 Mg Tablet) 100 mg PO DAILY [facility] Last Admin: 09/18/23 08:35 Dose: 100 mg Trazodone HCl (Trazodone Hcl 50 Mg Tablet) 50 mg PO BEDTIME MRX1 PRN PRN Reason: Insomnia Allergies Allergies Allergy/AdvReac Type Severity Reaction Status Date / Time glipizide [GLIPIZIDE] Allergy Intermediate ITCHY Verified 09/16/23 12:37 acetaminophen [From TYLOX] AdvReac Intermediate CHEST PAINS Verified 09/16/23 12:37 oxycodone [From TYLOX] AdvReac Intermediate CHEST PAINS Verified 09/16/23 12:37 Assessment & Plan Assessment & Plan (1) MDD (major depressive disorder), recurrent episode, moderate: Status: Acute Code(s): F33.1 - Major depressive disorder, recurrent, moderate (2) Cocaine use disorder: Status: Acute Code(s): F14.10 - Cocaine abuse, uncomplicated Plan Patient is a 58 year old male with hx of MDD and cocaine use d/o, who self presented to ER d/t auditory hallucinations and paranoia secondary to cocaine use. Plan: CV 15 minute safety checks continue home medications referral to outpatient prescriber and therapist encourage groups discharge planning 09/17: calm, cooperative, euthymic. 3-day up thursday. planning to discharge thursday. 09/19/2023: Overall doing well. Will increase gabapentin to 400 mg twice daily for anxiety management. Reason for continued inpatient stay Substantial Risk for: rapid decompensation Time Spent With Patient Time: Total time managing care of this patient today ____ minutes.
[2023-09-19 08:36] VITALS: BP 121/57; PULSE 72; RESP 18; TEMP 36.3; O2SAT 97
[2023-09-19] MEDS: SITagliptin Phosphate 100 MG TABLET PO (08:38)
[2023-09-19] MEDS: PARoxetine HCL 30 MG TABLET PO ×2 (08:38→21:39)
[2023-09-19] MEDS: Atorvastatin Calcium 40 MG TABLET PO (08:38)
[2023-09-19] MEDS: LORazepam 1 MG TABLET PO ×3 (08:38→21:39)
[2023-09-19] MEDS: metFORMIN HCl 1,000 MG TABLET 1000 MG PO ×2 (08:38→21:39)
[2023-09-19] MEDS: Gabapentin 300 MG CAPSULE PO (08:38)
[2023-09-19] MEDS: Aspirin Enteric Coated 81 MG TABLET.DR PO (08:38)
[2023-09-19] MEDS: QUEtiapine Fumarate 50 MG TABLET 75 MG PO ×2 (08:39→21:39)
[2023-09-19] MEDS: Fluticasone/Vilanterol 100/25 BLST.W.DEV 1 PUFF INHALE (08:40)
[2023-09-19 09:08] LABS: Glucose, Whole Blood 132 mg/dL (60-115)
[2023-09-19] MEDS: polyethylene glycoL 3350 17 GM POWD.PACK PO (10:03)
--- NOTE | 2023-09-19 11:23 | PC.NURSE ---
Andreas reports small BM today after Miralax.
[2023-09-19 12:51] LABS: Glucose, Whole Blood 145 mg/dL (60-115)
[2023-09-19 18:05] LABS: Glucose, Whole Blood 164 mg/dL (60-115)
[2023-09-19] MEDS: Insulin Lispro 100 UNIT/ML 3 ML VIAL SUBCUT ×2 (18:18→21:37)
[2023-09-19 19:20] VITALS: BP 122/67; PULSE 78; RESP 16; TEMP 36.6; O2SAT 97
[2023-09-19 20:32] LABS: Glucose, Whole Blood 184 mg/dL (60-115)
[2023-09-19] MEDS: Insulin Glargine,Hum.rec.anlog 100 UNIT/ML 10 ML VIAL 15 UNIT SUBCUT (21:36)
[2023-09-19] MEDS: Gabapentin 400 MG CAPSULE PO (21:39)
[2023-09-20] MEDS: Nicotine Polacrilex 2 MG GUM 4 MG BUCCAL ×4 (04:31→18:52)
[2023-09-20] MEDS: Omeprazole 20 MG CAPSULE.DR PO (06:46)
[2023-09-20] MEDS: polyethylene glycoL 3350 17 GM POWD.PACK PO ×2 (07:28→17:26)
[2023-09-20 08:10] VITALS: BP 130/70; PULSE 68; TEMP 36.4; O2SAT 98
[2023-09-20 08:47] LABS: Glucose, Whole Blood 150 mg/dL (60-115)
[2023-09-20] MEDS: Gabapentin 400 MG CAPSULE PO ×2 (08:58→21:26)
[2023-09-20] MEDS: PARoxetine HCL 30 MG TABLET PO ×2 (08:58→21:25)
[2023-09-20] MEDS: LORazepam 1 MG TABLET PO ×3 (08:58→21:26)
[2023-09-20] MEDS: metFORMIN HCl 1,000 MG TABLET 1000 MG PO ×2 (08:58→21:26)
[2023-09-20] MEDS: SITagliptin Phosphate 100 MG TABLET PO (08:58)
[2023-09-20] MEDS: QUEtiapine Fumarate 50 MG TABLET 75 MG PO ×2 (08:59→21:25)
[2023-09-20] MEDS: Aspirin Enteric Coated 81 MG TABLET.DR PO (08:59)
[2023-09-20] MEDS: Atorvastatin Calcium 40 MG TABLET PO (08:59)
[2023-09-20] MEDS: Fluticasone/Vilanterol 100/25 BLST.W.DEV 1 PUFF INHALE (09:00)
--- NOTE | 2023-09-20 10:31 | P.PNPSI_ITS ---
Subjective Subjective Date of Service: 09/20/23 Reason For Visit: mental health crisis Interim History: overall reports things are going well. Gabapentin 400 helpful. Looking forward to discharge and feels much less depressed and anxious. No hallucinations. Feeling positive regarding medications. Medication Compliance: Yes Side effects from medications: No Attending Groups: Yes Review of Systems Acute medical concerns: No Review of Systems Review of Systems Yes all other systems are reviewed and are negative Mental Status Exam Mental Status Exam Narrative: Pt is alert and oriented; behavior is cooperative, friendly and calm; dressed in hospital attire; mood is described as good eye contact appropriate; Speech is normal rate, volume and not pressured; thought process is organized; Thought content is on tx; denies SI/HI/VH/AH. Diagnostics Vital Signs (24Hr): Vital Signs - 24 hr 09/19/23 19:20 09/20/23 08:10 Temperature 97.8 F 97.5 F Pulse Rate 78 68 Respiratory Rate 16 Blood Pressure 122/67 130/70 Pulse Oximetry 97 98 Oxygen Delivery Method Room Air Room Air BMI result Body Mass Index 27.5 Labs 09/16/23 14:29 09/16/23 14:29 Labs: Laboratory Results - last 48 hr 09/18/23 09/18/23 09/18/23 12:45 17:46 21:52 POC Glucose 195 H 132 H 209 H 09/19/23 09/19/23 09/19/23 08:45 12:46 17:56 POC Glucose 132 H 145 H 164 H 09/19/23 09/20/23 20:25 08:34 POC Glucose 184 H 150 H Medications Medications Current Medications Acetaminophen (Acetaminophen 325 Mg Tablet) 650 mg PO Q6H PRN PRN Reason: Headache/Pain Mild Scale (1-3) Last Admin: 09/18/23 10:46 Dose: 650 mg Al Hydroxide/Mg Hydroxide (Magnesium Hydrox/Alum Hydrox 30 Ml Oral.Susp) 30 ml PO Q6H PRN PRN Reason: Heartburn/Nausea Albuterol Sulfate (Albuterol Sulfate 90 Mcg 8 Gm Inhaler) 2 puff INHALE QID PRN PRN Reason: wheezing Aspirin (Aspirin Enteric Coated 81 Mg Tablet.) 81 mg PO DAILY [facility] Last Admin: 09/20/23 08:59 Dose: 81 mg Atorvastatin Calcium (Atorvastatin Calcium 40 Mg Tablet) 40 mg PO DAILY [facility] Last Admin: 09/20/23 08:59 Dose: 40 mg Fluticasone/Vilanterol (Fluticasone/Vilanterol 100/25 Blst.W.Dev) 1 puff INHALE RDAILY [facility] Last Admin: 09/20/23 09:00 Dose: 1 puff Gabapentin (Gabapentin 400 Mg Capsule) 400 mg PO BID [facility] Last Admin: 09/20/23 08:58 Dose: 400 mg Glucose (Glucose Gel 15 Gm Gel..Gram.) 15 gm PO Q15M PRN; Protocol PRN Reason: per Hypoglycemia Standing Ord. Hydroxyzine HCl (Hydroxyzine Hcl 25 Mg Tablet) 25 mg PO Q6H PRN PRN Reason: Anxiety Dextrose (D10) 250 mls @ 750 mls/hr IV Q15M PRN; Protocol PRN Reason: per Hypoglycemia Standing Ord. Insulin Glargine (Insulin Glargine,Hum.Rec.Anlog 100 Unit/Ml 10 Ml Vial) 15 unit SUBCUT BEDTIME [facility] Last Admin: 09/19/23 21:36 Dose: 15 unit Insulin Human Lispro (Insulin Lispro 100 Unit/Ml 3 Ml Vial) 0 unit SUBCUT QIDACHS [facility]; Protocol Last Admin: 09/20/23 08:47 Dose: Not Given Lorazepam (Lorazepam 1 Mg Tablet) 1 mg PO TID [facility] Last Admin: 09/20/23 08:58 Dose: 1 mg Magnesium Hydroxide (Milk Of Magnesia 30 Ml Oral.Susp) 30 ml PO DAILY PRN PRN Reason: Constipation Last Admin: 09/17/23 18:36 Dose: 30 ml Metformin HCl (Metformin Hcl 1,000 Mg Tablet) 1,000 mg PO BID [facility] Last Admin: 09/20/23 08:58 Dose: 1,000 mg Nicotine Polacrilex (Nicotine Polacrilex 2 Mg Gum) 4 mg BUCCAL Q2H PRN PRN Reason: Nicotine Cravings Last Admin: 09/20/23 04:31 Dose: 4 mg Omeprazole (Omeprazole 20 Mg Capsule.Dr) 20 mg PO DAILY@0630 [facility] Last Admin: 09/20/23 06:46 Dose: 20 mg Paroxetine HCl (Paroxetine Hcl 30 Mg Tablet) 30 mg PO BID [facility] Last Admin: 09/20/23 08:58 Dose: 30 mg Polyethylene Glycol (Polyethylene Glycol 3350 17 Gm Powd.Pack) 17 gm PO BID PRN PRN Reason: Constipation Last Admin: 09/20/23 07:28 Dose: 17 gm Quetiapine Fumarate (Quetiapine Fumarate 50 Mg Tablet) 75 mg PO BID [facility] Last Admin: 09/20/23 08:59 Dose: 75 mg Sitagliptin Phosphate (Sitagliptin Phosphate 100 Mg Tablet) 100 mg PO DAILY [facility] Last Admin: 09/20/23 08:58 Dose: 100 mg Trazodone HCl (Trazodone Hcl 50 Mg Tablet) 50 mg PO BEDTIME MRX1 PRN PRN Reason: Insomnia Allergies Allergies Allergy/AdvReac Type Severity Reaction Status Date / Time glipizide [GLIPIZIDE] Allergy Intermediate ITCHY Verified 09/16/23 12:37 acetaminophen [From TYLOX] AdvReac Intermediate CHEST PAINS Verified 09/16/23 12:37 oxycodone [From TYLOX] AdvReac Intermediate CHEST PAINS Verified 09/16/23 12:37 Assessment & Plan Assessment & Plan (1) MDD (major depressive disorder), recurrent episode, moderate: Status: Acute Code(s): F33.1 - Major depressive disorder, recurrent, moderate (2) Cocaine use disorder: Status: Acute Code(s): F14.10 - Cocaine abuse, uncomplicated Plan Patient is a 58 year old male with hx of MDD and cocaine use d/o, who self presented to ER d/t auditory hallucinations and paranoia secondary to cocaine use. Plan: CV 15 minute safety checks continue home medications referral to outpatient prescriber and therapist encourage groups discharge planning 09/17: calm, cooperative, euthymic. 3-day up thursday. planning to discharge thursday. 09/19/2023: Overall doing well. Will increase gabapentin to 400 mg twice daily for anxiety management. 09/19: no changes Reason for continued inpatient stay Substantial Risk for: rapid decompensation Time Spent With Patient Time: Total time managing care of this patient today ____ minutes.
[2023-09-20 12:39] LABS: Glucose, Whole Blood 112 mg/dL (60-115)
[2023-09-20 17:55] LABS: Glucose, Whole Blood 118 mg/dL (60-115)
[2023-09-20 20:00] VITALS: BP 146/71; PULSE 78; RESP 16; TEMP 36.4; O2SAT 98
[2023-09-20 20:22] LABS: Glucose, Whole Blood 151 mg/dL (60-115)
[2023-09-20] MEDS: Insulin Glargine,Hum.rec.anlog 100 UNIT/ML 10 ML VIAL 15 UNIT SUBCUT (21:27)
[2023-09-20] MEDS: Insulin Lispro 100 UNIT/ML 3 ML VIAL SUBCUT (21:28)
[2023-09-21] MEDS: Nicotine Polacrilex 2 MG GUM 4 MG BUCCAL ×2 (00:53→05:20)
[2023-09-21] MEDS: Omeprazole 20 MG CAPSULE.DR PO (05:20)
[2023-09-21 07:05] VITALS: BP 131/64; PULSE 72; RESP 12; TEMP 36.3
[2023-09-21 09:00] LABS: Glucose, Whole Blood 132 mg/dL (60-115)
[2023-09-21] MEDS: Aspirin Enteric Coated 81 MG TABLET.DR PO (09:16)
[2023-09-21] MEDS: LORazepam 1 MG TABLET PO (09:16)
[2023-09-21] MEDS: Atorvastatin Calcium 40 MG TABLET PO (09:16)
[2023-09-21] MEDS: metFORMIN HCl 1,000 MG TABLET 1000 MG PO (09:17)
[2023-09-21] MEDS: QUEtiapine Fumarate 50 MG TABLET 75 MG PO (09:17)
[2023-09-21] MEDS: PARoxetine HCL 30 MG TABLET PO (09:17)
[2023-09-21] MEDS: SITagliptin Phosphate 100 MG TABLET PO (09:18)
[2023-09-21] MEDS: Gabapentin 400 MG CAPSULE PO (09:18)
[2023-09-21] MEDS: Fluticasone/Vilanterol 100/25 BLST.W.DEV 1 PUFF INHALE (09:18)
--- NOTE | 2023-09-21 11:21 | PM.PSYDC ---
DS: Providers Provider Date of Service: 09/21/23 Date of admission: 09/16/23 17:02 Primary care physician: Yoel Parrish MD DS: Diagnosis Discharge Diagnosis (1) MDD (major depressive disorder), recurrent episode, moderate: Status: Acute (2) Cocaine use disorder: Status: Acute DS: Medications Discharge Medications Home Medications: Home Medications ?Medication ?Instructions ?Recorded ?Confirmed lorazepam 1 mg tablet 1 mg PO TID 06/25/23 09/16/23 Previous Rx's ?Medication ?Instructions ?Recorded albuterol sulfate 90 mcg/actuation 2 puff inhalation QID PRN wheezing 09/21/23 aerosol inhaler (Ventolin HFA) 300 days #1 inhaler aspirin 81 mg tablet,delayed 81 mg PO DAILY 30 days #30 tabs 09/21/23 release fluticasone propionate 115 2 puff inhalation BID 30 days #1 09/21/23 mcg-salmeterol 21 mcg/actuation inhaler HFA inhaler (Advair HFA) gabapentin 400 mg capsule 400 mg PO BID 30 days #60 caps 09/21/23 insulin glargine 100 unit/mL (3 15 unit (0.15 mL) subcut BEDTIME 09/21/23 mL) subcutaneous pen (Lantus 30 days #4.5 mL Solostar U-100 Insulin) metformin 1,000 mg tablet 1,000 mg PO BID 30 days #60 tabs 09/21/23 nicotine (polacrilex) 2 mg gum 4 mg buccal Q2H PRN Nicotine 09/21/23 Cravings 30 days #120 ea omeprazole 20 mg capsule,delayed 20 mg PO DAILY@0630,1630 30 days 09/21/23 release #60 caps paroxetine HCl 30 mg tablet 30 mg PO BID 30 days #60 tabs 09/21/23 polyethylene glycol 3350 17 17 g PO BID PRN Constipation 30 09/21/23 gram/dose oral powder days #510 grams quetiapine 150 mg tablet,extended 150 mg PO BEDTIME 30 days #30 tabs 09/21/23 release 24 hr rosuvastatin 10 mg tablet 10 mg PO DAILY 30 days #30 tabs 09/21/23 sitagliptin phosphate 100 mg 100 mg PO DAILY 30 days #30 tabs 09/21/23 tablet (Januvia) Mental Status Exam Mental Status Exam Narrative: Pt is alert and oriented; behavior is cooperative, friendly and calm; dressed in hospital attire; mood is described as way up there eye contact appropriate; Speech is normal rate, volume and not pressured; thought process is organized; Thought content is on tx; denies SI/HI/VH/AH. Data Data Completed and Pending Completed studies during hospitalization [Text1]: 09/16/23 09/16/23 09/16/23 12:36 14:29 14:31 WBC 6.5 RBC 4.75 Hgb 13.8 L Hct 41.2 L MCV 86.7 MCH 29.1 MCHC 33.5 RDW 13.0 Plt Count 192 MPV 10.4 Immature Gran % (Auto) 0.3 Neut % (Auto) 61.4 Lymph % (Auto) 25.0 [place] % (Auto) 11.2 H Eos % (Auto) 1.6 Baso % (Auto) 0.5 Lymph # (Auto) 1.6 [place] # (Auto) 0.7 Eos # (Auto) 0.1 Baso # (Auto) 0.0 Abs Immat Gran (auto) 0.02 Absolute Neuts (auto) 4.0 Absolute Nucleated RBC 0.000 Nucleated RBC % (auto) 0.0 Sodium 142 Potassium 3.5 Chloride 106 Carbon Dioxide 28 Anion Gap 12 BUN 15 Creatinine 0.95 Estim Creat Clear Calc 79.0 Estimated GFR > 60 POC Glucose 151 H Random Glucose 149 H Estimat Average Glucose Hemoglobin A1c % Calcium 9.2 Triglycerides Cholesterol LDL Cholesterol, Calc HDL Cholesterol Folate TSH Free T4 Urine Color Dark Yellow Urine Appearance Clear Urine pH 6.0 Ur Specific [place] >= 1.030 H Urine Protein Trace Urine Glucose (UA) Negative Urine Ketones Trace Urine Blood Negative Urine Nitrite Negative Ur Leukocyte Esterase Negative Salicylates < 5.0 L Urine Opiates Screen Not Detected Ur Buprenorphine Scrn Not Detected Ur Oxycodone Screen Not Detected Urine Methadone Screen Not Detected Urine Fentanyl Screen Not Detected Acetaminophen < 3 Ur Barbiturates Screen Not Detected Ur Phencyclidine Scrn Not Detected Ur Amphetamines Screen Not Detected U Benzodiazepines Scrn Not Detected Urine Cocaine Screen POSITIVE H U Marijuana (THC) Screen POSITIVE H Ethyl Alcohol < 10 09/16/23 09/17/23 09/17/23 21:43 08:30 08:46 WBC RBC Hgb Hct MCV MCH MCHC RDW Plt Count MPV Immature Gran % (Auto) Neut % (Auto) Lymph % (Auto) [place] % (Auto) Eos % (Auto) Baso % (Auto) Lymph # (Auto) [place] # (Auto) Eos # (Auto) Baso # (Auto) Abs Immat Gran (auto) Absolute Neuts (auto) Absolute Nucleated RBC Nucleated RBC % (auto) Sodium Potassium Chloride Carbon Dioxide Anion Gap BUN Creatinine Estim Creat Clear Calc Estimated GFR POC Glucose 170 H 135 H Random Glucose Estimat Average Glucose 134 Hemoglobin A1c % 6.3 H Calcium Triglycerides 198 H Cholesterol 119 LDL Cholesterol, Calc 48 HDL Cholesterol 32 L Folate 5.1 TSH 0.62 Free T4 0.92 Urine Color Urine Appearance Urine pH Ur Specific [place] Urine Protein Urine Glucose (UA) Urine Ketones Urine Blood Urine Nitrite Ur Leukocyte Esterase Salicylates Urine Opiates Screen Ur Buprenorphine Scrn Ur Oxycodone Screen Urine Methadone Screen Urine Fentanyl Screen Acetaminophen Ur Barbiturates Screen Ur Phencyclidine Scrn Ur Amphetamines Screen U Benzodiazepines Scrn Urine Cocaine Screen U Marijuana (THC) Screen Ethyl Alcohol 09/17/23 09/17/23 09/17/23 11:58 17:57 21:06 WBC RBC Hgb Hct MCV MCH MCHC RDW Plt Count MPV Immature Gran % (Auto) Neut % (Auto) Lymph % (Auto) [place] % (Auto) Eos % (Auto) Baso % (Auto) Lymph # (Auto) [place] # (Auto) Eos # (Auto) Baso # (Auto) Abs Immat Gran (auto) Absolute Neuts (auto) Absolute Nucleated RBC Nucleated RBC % (auto) Sodium Potassium Chloride Carbon Dioxide Anion Gap BUN Creatinine Estim Creat Clear Calc Estimated GFR POC Glucose 152 H 149 H 119 H Random Glucose Estimat Average Glucose Hemoglobin A1c % Calcium Triglycerides Cholesterol LDL Cholesterol, Calc HDL Cholesterol Folate TSH Free T4 Urine Color Urine Appearance Urine pH Ur Specific [place] Urine Protein Urine Glucose (UA) Urine Ketones Urine Blood Urine Nitrite Ur Leukocyte Esterase Salicylates Urine Opiates Screen Ur Buprenorphine Scrn Ur Oxycodone Screen Urine Methadone Screen Urine Fentanyl Screen Acetaminophen Ur Barbiturates Screen Ur Phencyclidine Scrn Ur Amphetamines Screen U Benzodiazepines Scrn Urine Cocaine Screen U Marijuana (THC) Screen Ethyl Alcohol 09/18/23 09/18/23 09/18/23 08:51 12:45 17:46 WBC RBC Hgb Hct MCV MCH MCHC RDW Plt Count MPV Immature Gran % (Auto) Neut % (Auto) Lymph % (Auto) [place] % (Auto) Eos % (Auto) Baso % (Auto) Lymph # (Auto) [place] # (Auto) Eos # (Auto) Baso # (Auto) Abs Immat Gran (auto) Absolute Neuts (auto) Absolute Nucleated RBC Nucleated RBC % (auto) Sodium Potassium Chloride Carbon Dioxide Anion Gap BUN Creatinine Estim Creat Clear Calc Estimated GFR POC Glucose 104 195 H 132 H Random Glucose Estimat Average Glucose Hemoglobin A1c % Calcium Triglycerides Cholesterol LDL Cholesterol, Calc HDL Cholesterol Folate TSH Free T4 Urine Color Urine Appearance Urine pH Ur Specific [place] Urine Protein Urine Glucose (UA) Urine Ketones Urine Blood Urine Nitrite Ur Leukocyte Esterase Salicylates Urine Opiates Screen Ur Buprenorphine Scrn Ur Oxycodone Screen Urine Methadone Screen Urine Fentanyl Screen Acetaminophen Ur Barbiturates Screen Ur Phencyclidine Scrn Ur Amphetamines Screen U Benzodiazepines Scrn Urine Cocaine Screen U Marijuana (THC) Screen Ethyl Alcohol 09/18/23 09/19/23 09/19/23 21:52 08:45 12:46 WBC RBC Hgb Hct MCV MCH MCHC RDW Plt Count MPV Immature Gran % (Auto) Neut % (Auto) Lymph % (Auto) [place] % (Auto) Eos % (Auto) Baso % (Auto) Lymph # (Auto) [place] # (Auto) Eos # (Auto) Baso # (Auto) Abs Immat Gran (auto) Absolute Neuts (auto) Absolute Nucleated RBC Nucleated RBC % (auto) Sodium Potassium Chloride Carbon Dioxide Anion Gap BUN Creatinine Estim Creat Clear Calc Estimated GFR POC Glucose 209 H 132 H 145 H Random Glucose Estimat Average Glucose Hemoglobin A1c % Calcium Triglycerides Cholesterol LDL Cholesterol, Calc HDL Cholesterol Folate TSH Free T4 Urine Color Urine Appearance Urine pH Ur Specific [place] Urine Protein Urine Glucose (UA) Urine Ketones Urine Blood Urine Nitrite Ur Leukocyte Esterase Salicylates Urine Opiates Screen Ur Buprenorphine Scrn Ur Oxycodone Screen Urine Methadone Screen Urine Fentanyl Screen Acetaminophen Ur Barbiturates Screen Ur Phencyclidine Scrn Ur Amphetamines Screen U Benzodiazepines Scrn Urine Cocaine Screen U Marijuana (THC) Screen Ethyl Alcohol 09/19/23 09/19/23 09/20/23 17:56 20:25 08:34 WBC RBC Hgb Hct MCV MCH MCHC RDW Plt Count MPV Immature Gran % (Auto) Neut % (Auto) Lymph % (Auto) [place] % (Auto) Eos % (Auto) Baso % (Auto) Lymph # (Auto) [place] # (Auto) Eos # (Auto) Baso # (Auto) Abs Immat Gran (auto) Absolute Neuts (auto) Absolute Nucleated RBC Nucleated RBC % (auto) Sodium Potassium Chloride Carbon Dioxide Anion Gap BUN Creatinine Estim Creat Clear Calc Estimated GFR POC Glucose 164 H 184 H 150 H Random Glucose Estimat Average Glucose Hemoglobin A1c % Calcium Triglycerides Cholesterol LDL Cholesterol, Calc HDL Cholesterol Folate TSH Free T4 Urine Color Urine Appearance Urine pH Ur Specific [place] Urine Protein Urine Glucose (UA) Urine Ketones Urine Blood Urine Nitrite Ur Leukocyte Esterase Salicylates Urine Opiates Screen Ur Buprenorphine Scrn Ur Oxycodone Screen Urine Methadone Screen Urine Fentanyl Screen Acetaminophen Ur Barbiturates Screen Ur Phencyclidine Scrn Ur Amphetamines Screen U Benzodiazepines Scrn Urine Cocaine Screen U Marijuana (THC) Screen Ethyl Alcohol 09/20/23 09/20/23 09/20/23 12:27 17:34 20:18 WBC RBC Hgb Hct MCV MCH MCHC RDW Plt Count MPV Immature Gran % (Auto) Neut % (Auto) Lymph % (Auto) [place] % (Auto) Eos % (Auto) Baso % (Auto) Lymph # (Auto) [place] # (Auto) Eos # (Auto) Baso # (Auto) Abs Immat Gran (auto) Absolute Neuts (auto) Absolute Nucleated RBC Nucleated RBC % (auto) Sodium Potassium Chloride Carbon Dioxide Anion Gap BUN Creatinine Estim Creat Clear Calc Estimated GFR POC Glucose 112 118 H 151 H Random Glucose Estimat Average Glucose Hemoglobin A1c % Calcium Triglycerides Cholesterol LDL Cholesterol, Calc HDL Cholesterol Folate TSH Free T4 Urine Color Urine Appearance Urine pH Ur Specific [place] Urine Protein Urine Glucose (UA) Urine Ketones Urine Blood Urine Nitrite Ur Leukocyte Esterase Salicylates Urine Opiates Screen Ur Buprenorphine Scrn Ur Oxycodone Screen Urine Methadone Screen Urine Fentanyl Screen Acetaminophen Ur Barbiturates Screen Ur Phencyclidine Scrn Ur Amphetamines Screen U Benzodiazepines Scrn Urine Cocaine Screen U Marijuana (THC) Screen Ethyl Alcohol 09/21/23 08:56 WBC RBC Hgb Hct MCV MCH MCHC RDW Plt Count MPV Immature Gran % (Auto) Neut % (Auto) Lymph % (Auto) [place] % (Auto) Eos % (Auto) Baso % (Auto) Lymph # (Auto) [place] # (Auto) Eos # (Auto) Baso # (Auto) Abs Immat Gran (auto) Absolute Neuts (auto) Absolute Nucleated RBC Nucleated RBC % (auto) Sodium Potassium Chloride Carbon Dioxide Anion Gap BUN Creatinine Estim Creat Clear Calc Estimated GFR POC Glucose 132 H Random Glucose Estimat Average Glucose Hemoglobin A1c % Calcium Triglycerides Cholesterol LDL Cholesterol, Calc HDL Cholesterol Folate TSH Free T4 Urine Color Urine Appearance Urine pH Ur Specific [place] Urine Protein Urine Glucose (UA) Urine Ketones Urine Blood Urine Nitrite Ur Leukocyte Esterase Salicylates Urine Opiates Screen Ur Buprenorphine Scrn Ur Oxycodone Screen Urine Methadone Screen Urine Fentanyl Screen Acetaminophen Ur Barbiturates Screen Ur Phencyclidine Scrn Ur Amphetamines Screen U Benzodiazepines Scrn Urine Cocaine Screen U Marijuana (THC) Screen Ethyl Alcohol DS: Summary Hospital Course Hospital Course: per 09/16 admission note: Patient is a 58 year old male with hx of MDD and cocaine use d/o, who self presented to ER d/t auditory hallucinations and paranoia secondary to cocaine use. Per crisis report, pt was brought into ER by police secondary to eloping from the ED during a crisis assessment and returning home. Pt initially came in reporting that people are putting some kind of tracker on my clothes. There is something red I can see that was put in my eye to track me I got a lot of things tracking me . Patient reported auditory hallucinations of family members talking crying and plotting things against him. Patient denied SI/HI. Patient's reported that patient has been making passive suicidal statements for the past few months. Patient's reported pt does not have a history of paranoia or auditory hallucinations. She did report that patient has been using cocaine nonstop all weekend . Patient would not allow family to go home on Thursday because he believed someone was trying to kill them. UTOX positive for cocaine, marijuana. Patient denied any history of inpatient psychiatric hospitalizations, CCS, and PHP admissions. Patient denies any history of suicide attempts or self-harming behaviors. He does report an admission to [facility] over 10 years ago. During admission assessment, pt presents alert, oriented, calm and cooperative. Pt stated, I was hearing voices to do stupid stuff. I came to the emergency room because of the threats from the voices. The voices were saying they were going to kill me and my . Patient reports he only used cocaine for 1 day and not for days. Patient reports he currently does not have an outpatient psychiatrist or therapist however he would like a referral for both. Patient reports he receives his psychiatric medications from his PCP. Patient reports medication compliance. Patient denies SI/HI/VH/AH. Past Psychiatric History: 1st inpatient psychiatric admission. 1 detox admission at [facility] Medical Evaluation Reviewed: Yes [facility] Medical History Anxiety Diabetes Family History: unknown Social History: Lives with , 4 children (2 adults, 2 13y/o who live in [place] with pt's brother), disability. Highschool diploma. Substance History: Cocaine and marijuana. Trauma History: denies Precis: Patient is a 58 year old male with hx of MDD and cocaine use d/o, who self presented to ER d/t auditory hallucinations and paranoia secondary to cocaine use. 09/16: CV. 15 minute safety checks. continue home medications. referral to outpatient prescriber and therapist. encourage groups. discharge planning 09/17: calm, cooperative, euthymic. 3-day up thursday. planning to discharge thursday. 09/18: Overall doing well. Will increase gabapentin to 400 mg twice daily for anxiety management. 09/19: no changes 09/20: stable. discharged as per plan. Time Spent with Patient Time attestation: Total time managing care of this patient today __35__ minutes. Discharge Plan Discharge Anticipated Discharge Date/Time: 09/21/23 12:00 Patient Disposition: Home, Self-Care Discharge Diagnosis: Major Depressive Disorder, Recurrent Cocaine Use Disorder Referrals: Fausto Brody (Therapy) [Other] - 09/23/23 1:00 pm (IN OFFICE APPOINTMENT -Please arrive fifteen minutes early to your appointment in order to fill out necessary paperwork. ) Seema Valdes (Psychiatry) [Other] - 10/14/23 11:00 am (TELEHEALTH APPOINTMENT -Psychiatric Evaluation ) Seema Valdes (Psychiatry) [Other] - 11/13/23 10:00 am (TELEHEALTH APPOINTMENT -Medication Management ) Yoel Parrish MD [Primary Care Provider] - 1 Week (PCP follow up appt waiting elementary instructional coach back from PCP office. Advised if unable to call us before 10am today to contact patient directly.) Discharge Medications: New nicotine (polacrilex) 2 mg Gum 4 mg buccal Q2H PRN (Reason: Nicotine Cravings) 30 Days Qty: 120 1RF gabapentin 400 mg Capsule 400 mg PO BID 30 Days Qty: 60 0RF insulin glargine 100 unit/mL Solution 15 unit subcut BEDTIME 30 Days Qty: 15 0RF Continued aspirin 81 mg tablet,delayed release (DR/EC) 81 mg PO DAILY 30 Days Qty: 30 0RF paroxetine HCl 30 mg tablet 30 mg PO BID 30 Days Qty: 60 0RF metformin 1,000 mg tablet 1,000 mg PO BID 30 Days Qty: 60 0RF omeprazole 20 mg capsule,delayed release(DR/EC) 20 mg PO DAILY@0630,1630 30 Days Qty: 60 0RF polyethylene glycol 3350 17 gram/dose powder 17 g PO BID PRN (Reason: Constipation) 30 Days Qty: 510 0RF albuterol sulfate [Ventolin HFA] 90 mcg/actuation HFA aerosol inhaler 2 puff INHALATION QID PRN (Reason: wheezing) 300 Days Qty: 1 0RF rosuvastatin 10 mg tablet 10 mg PO DAILY 30 Days Qty: 30 0RF fluticasone propion-salmeterol [Advair HFA] 115-21 mcg/actuation HFA aerosol inhaler 2 puff INHALATION BID 30 Days Qty: 1 0RF Januvia 100 mg tablet 100 mg PO DAILY 30 Days Qty: 30 0RF insulin glargine [Lantus Solostar U-100 Insulin] 100 unit/mL (3 mL) insulin pen 15 unit subcut BEDTIME 30 Days Qty: 4.5 0RF quetiapine 150 mg tablet extended release 24 hr 150 mg PO BEDTIME 30 Days Qty: 30 0RF lorazepam 1 mg tablet 1 mg PO TID Discontinued gabapentin 300 mg capsule 300 mg PO BID No Action omeprazole 40 mg capsule,delayed release(DR/EC) 40 mg PO DAILY Qty: 20 0RF Discharge Orders: Discharge Order (Routine); Ordered 09/21/23 Ordered By: Darrel Saavedra Diet: Advance to usual diet Activity on Discharge: As tolerated Stand Alone Forms: Patient Portal Discharge page, Community Support Print Language: [place]atian Care Plan Goals: remain safe and stable in the outpatient treatment setting Health Concerns: none Plan of Treatment: take medications as prescribed, attend appointments as scheduled Assessment: not at imminent risk of harm to self or others Discharge Date/Time: 09/21/23 11:45
== END 2023-09-21 11:45 | disposition home or self-care (01) | DRG 885 ==
LOC: HO.ED 14:21 → HO.PADLT16 17:04
PROVIDERS: Psychiatry & Neurology Psychiatry; Admitting Provider Psychiatry & Neurology Psychiatry; Emergency Provider Emergency Medicine; PCP Internal Medicine; Visit Provider Psychiatry & Neurology Psychiatry
DX: F33.1 Major depressive disorder, recurrent, moderate (principal); F14.151 Cocaine abuse with cocaine-induced psychotic disorder with hallucinations; F17.210 Nicotine dependence, cigarettes, uncomplicated; Z71.6 Tobacco abuse counseling; Z79.4 Long term (current) use of insulin; Z79.82 Long term (current) use of aspirin; Z79.84 Long term (current) use of oral hypoglycemic drugs; Z79.899 Other long term (current) drug therapy
CPT/HCPCS: 36415; 80048; 80061; 80143; 80179; 80307; 81003; 82746; 82947; 83036; 84439; 84443; 85025; 93005; 99285; S9485

== ENCOUNTER → 2023-09-16 15:25 | Outpatient (BNV) | payer OTHER, SELFPAY | PROVIDERS: Admitting Provider Psychiatry & Neurology Psychiatry; Emergency Provider Emergency Medicine; PCP Internal Medicine; Visit Provider Internal Medicine Cardiovascular Disease | DX: I49.8 Other specified cardiac arrhythmias (principal) | CPT/HCPCS: 93010 ==

== ENCOUNTER → 2023-09-16 17:02 | Outpatient (BNV) | payer OTHER, SELFPAY | PROVIDERS: Admitting Provider Psychiatry & Neurology Psychiatry; Emergency Provider Emergency Medicine; PCP Internal Medicine; Visit Provider Psychiatry & Neurology Psychiatry | DX: F33.1 Major depressive disorder, recurrent, moderate (principal); F14.10 Cocaine abuse, uncomplicated | CPT/HCPCS: 90792; 99231; 99232; 99239 ==

== ENCOUNTER 2023-09-22 04:11 | Emergency (ER) | payer OTHER, SELFPAY ==
--- NOTE | ~2023-09-22 | XR_ITS ---
EXAMINATION: XR CHEST CLINICAL INFORMATION: Cough, phlegm COMPARISON: 04/21/2018 TECHNIQUE: Frontal view of the chest was obtained. FINDINGS: Lung volumes are symmetric. No focal consolidation is seen. No evidence of pneumothorax, pleural effusion, or pulmonary edema. The cardiomediastinal contour is unremarkable. No acute osseous findings are seen. XR/XR chest 1V IMPRESSION: No acute cardiopulmonary findings.
--- NOTE | ~2023-09-22 | CT_ITS ---
EXAMINATION: CT ABDOMEN AND PELVIS WITHOUT CONTRAST CLINICAL INFORMATION: Lower abdominal pain COMPARISON: 07/12/2023 TECHNIQUE: Multidetector volumetric imaging was performed from the superior aspect of the liver through the pubic symphysis. Sagittal and coronal reformatted images were obtained on the technologist's workstation. This CT examination was performed using dose optimization techniques as appropriate, variously including the following: *Automated exposure control *Adjustment of mA and/or kV according to patient size (this includes techniques or standardized protocols for targeted exams where dose is matched to indication/reason for exam; i.e. extremities or head) *Use of iterative reconstruction technique DLP: 565 mGy-cm FINDINGS: LUNG BASES: Faint peripheral groundglass opacity, which may reflect atelectasis. Coronary artery calcifications are present. LIVER, GALLBLADDER, AND BILIARY TREE: The liver is normal in size, shape, and attenuation. No focal hepatic lesion or biliary ductal dilatation is identified on this noncontrast exam. The gallbladder is unremarkable with no evidence of radiopaque gallstones, gallbladder wall thickening, or obvious pericholecystic inflammatory changes. PANCREAS: Unremarkable. SPLEEN: Unremarkable. ADRENAL GLANDS: Unremarkable. KIDNEYS AND URETERS: No hydronephrosis or obstructing calculus bilaterally. Nonspecific bilateral perinephric stranding, similar to prior. BLADDER: Unremarkable. GASTROINTESTINAL TRACT: Stomach is distended with debris. Nonobstructive bowel gas pattern. No significant bowel wall thickening is seen. Large amount of stool is present in the colon. The appendix is unremarkable. No free fluid or free air is seen. ABDOMINAL WALL: No significant hernia is appreciated. LYMPH NODES: No lymphadenopathy is seen, though assessment is limited in the absence of intravenous contrast. VASCULAR: There is atherosclerotic calcification along the aorta and iliac arteries. PELVIC VISCERA: Unremarkable. OSSEOUS STRUCTURES: Scattered mild degenerative changes in the spine. CT/CT abdomen pelvis wo IV con IMPRESSION: 1. No acute findings identified in the abdomen/pelvis. Large amount of stool in the colon. 2. Coronary artery calcifications. Correlation with cardiac risk factors is recommended.
[2023-09-22 04:24] VITALS: BP 130/73; BP 157/93; PULSE 85; PULSE 90; RESP 17; TEMP 36.6; O2SAT 97; O2SAT 98; BMI 25.0
--- NOTE | 2023-09-22 04:36 | ED.ABDPAIN ---
HPI - Abdominal Pain General Chief Complaint: Abdominal Pain Stated Complaint: ABD PAIN PER EMS Time Seen by Provider: 09/22/23 04:35 Source: patient and EMS Mode of arrival: EMS Limitations: no limitations History of Present Illness ED Provider: DR. Schmidt HPI narrative: 58-year-old male brought in by ambulance for evaluation of mid abdominal pain started 2 hours ago, pain is associated with nausea but no vomiting last bowel movement was yesterday and was normal, patient is passing flatus, never had intra-abdominal surgery in the past, no dysuria, no frequency urination, no fever, no chills. Patient also complaining of productive cough for the past 2 weeks with clear sputum, no fever, no chills patient is an active cigarette smoker. Related Data Home Medications ?Medication ?Instructions ?Recorded ?Confirmed lorazepam 1 mg tablet 1 mg PO TID 06/25/23 09/16/23 Previous Rx's ?Medication ?Instructions ?Recorded albuterol sulfate 90 mcg/actuation 2 puff inhalation QID PRN wheezing 09/21/23 aerosol inhaler (Ventolin HFA) 300 days #1 inhaler aspirin 81 mg tablet,delayed 81 mg PO DAILY 30 days #30 tabs 09/21/23 release fluticasone propionate 115 2 puff inhalation BID 30 days #1 09/21/23 mcg-salmeterol 21 mcg/actuation inhaler HFA inhaler (Advair HFA) gabapentin 400 mg capsule 400 mg PO BID 30 days #60 caps 09/21/23 insulin glargine 100 unit/mL (3 15 unit (0.15 mL) subcut BEDTIME 09/21/23 mL) subcutaneous pen (Lantus 30 days #4.5 mL Solostar U-100 Insulin) insulin glargine 100 unit/mL 15 unit (0.15 mL) subcut BEDTIME 09/21/23 subcutaneous solution 30 days #15 mL metformin 1,000 mg tablet 1,000 mg PO BID 30 days #60 tabs 09/21/23 nicotine (polacrilex) 2 mg gum 4 mg buccal Q2H PRN Nicotine 09/21/23 Cravings 30 days #120 ea omeprazole 20 mg capsule,delayed 20 mg PO DAILY@0630,1630 30 days 09/21/23 release #60 caps paroxetine HCl 30 mg tablet 30 mg PO BID 30 days #60 tabs 09/21/23 polyethylene glycol 3350 17 17 g PO BID PRN Constipation 30 09/21/23 gram/dose oral powder days #510 grams quetiapine 150 mg tablet,extended 150 mg PO BEDTIME 30 days #30 tabs 09/21/23 release 24 hr rosuvastatin 10 mg tablet 10 mg PO DAILY 30 days #30 tabs 09/21/23 sitagliptin phosphate 100 mg 100 mg PO DAILY 30 days #30 tabs 09/21/23 tablet (Januvia) omeprazole 40 mg capsule,delayed 40 mg PO DAILY #20 caps 09/22/23 release Allergies Allergy/AdvReac Type Severity Reaction Status Date / Time glipizide [GLIPIZIDE] Allergy Intermediate ITCHY Verified 09/22/23 04:27 acetaminophen [From TYLOX] AdvReac Intermediate CHEST PAINS Verified 09/22/23 04:27 oxycodone [From TYLOX] AdvReac Intermediate CHEST PAINS Verified 09/22/23 04:27 Review of Systems Review of Systems All other systems are reviewed and are negative Constitutional: Reports as per HPI and Reports no additional constitutional complaints Eyes: Reports as per HPI and Reports no additional eye complaints Reports system reviewed and no additional complaints, except as documented Cardiovascular: Reports as per HPI and Reports no additional cardiovascular complaints Respiratory: Reports as per HPI and Reports no additional respiratory complaints Gastrointestinal: Reports as per HPI and Reports no additional gastrointestinal complaints Genitourinary: Reports no additional female genitourinary complaints Musculoskeletal: Reports no additional musculoskeletal complaints Skin/Breast: Reports system reviewed and no additional complaints, except as docu Psychiatric: Reports no additional psychiatric complaints Endocrine: Reports no additional endocrine complaints Hematologic/Lymphatic: Reports no additional hematologic/lymphatic complaints Allergic/Immunologic: Reports no additional allergic/immunologic complaints Reports system reviewed and no additional complaints, except as documented and Reports Abnormal speech present [facility] Past Medical History Medical History Anxiety Diabetes Social History Social History Household Members: Spouse Housing: Apartment Do you presently have visiting nurse or other home services: No Unable to assess alcohol history related to: Unknown Patient Tobacco Use Status: Current everyday Tobacco user Tobacco use type: Cigarette Cigarettes Per Day: 30 Smoked in Last 30 Days: No e-Cigarette/Vaping Use: Currently Using Second Hand Smoke Exposure: Yes Use of substances other than those prescribed or required for medical reasons: Unknown Substance Use Type: Crack/Cocaine and Marijuana Advance Directives: Yes Advance Directives on File: Yes Advance Directives Date on File: 10/24/21 Do you have a plan to hurt others: No Plan service: No Sexual orientation: Straight/Heterosexual Physical Exam ED Vital Signs: Vital Signs - 24 hr 09/22/23 04:24 09/22/23 06:12 Temperature 97.9 F 98 F Pulse Rate 85 89 Respiratory Rate 17 16 Blood Pressure 130/73 123/66 Pulse Oximetry 97 95 Oxygen Delivery Method Room Air Room Air BMI result Body Mass Index 25.0 Vital signs have been reviewed and appear to be correct. Blood pressure elevated. Heart rate normal. Respiratory rate normal. Temperature normal. Oxygen saturation normal. Appearance: Alert. Oriented X3. No acute distress. Head: Normal external exam. Normocephalic. Atraumatic. No Gilbert signs noted. No raccoon eyes noted Eyes: PERRLA. EOMI. Conjunctiva and sclera normal. Eyelids normal. ENT: TM's Normal. Pharynx normal. Uvula midline. Moist mucous membranes. No trismus noted. No drooling noted. No muffled voice noted. Neck: Normal inspection. Neck supple. FROM. No adenopathy. Thyroid Normal. No meningeal signs. No neck mass noted. CVS: Normal heart rate and rhythm. Heart sound normal. No murmurs noted. Pulses normal throughout. Respiratory: No respiratory distress. Painless inspiration. Breath sounds normal. No wheezes/rales/rhonchi noted. Chest nontender. No accessory muscle usage noted or decreased air movement noted. Abdomen: Soft and nontender. Bowel sounds normal in all 4 quadrants. No distention noted. No organomegaly noted. No visible injury noted. Back: No CVA tenderness. Full range of motion noted. Skin: Skin warm and dry. Normal skin color. Normal skin turgor. No rashes/lesions/lacerations noted. Extremities: No lower extremity edema. Extremities exhibit normal range of motion. Extremities nontender. Neuro: Oriented X 3. Cranial nerve exam: II-XII are grossly intact No motor deficit. No sensory deficit. Reflexes normal. Course Reevaluation(s) Reevaluation #1: patient received IV fluids, Pepcid, Maalox, and Zofran now he feels better able to ambulate and tolerate p.o. intake in the ED without abdominal pain. Time: 06:29 Medical Decision Making Differential Diagnosis Differential Diagnoses: The differential diagnosis associated with the presentation includes ( Colitis, diverticulitis, gastritis, acute cholecystitis, pancreatitis, appendicitis, electrolyte derangement, severe anemia, pneumonia, pneumothorax, bronchitis.) Admission/Observation Consideration of admission/observation: Escalation of care including admission/observation considered Lab Data MDM Lab Attestation statement: I reviewed the patient's lab results. 09/22/23 04:34 09/22/23 04:34 Labs: Lab Results 09/22/23 Range/Units 04:34 WBC 11.6 H (4.8-10.8) X10*3/uL RBC 5.05 (4.60-5.80) X10*6/uL Hgb 15.2 (14.0-18.0) g/dl Hct 43.1 (42.0-52.0) % MCV 85.3 (80.0-98.0) fL MCH 30.1 (27.0-33.0) pg MCHC 35.3 (31.0-36.0) g/dl RDW 12.8 (11.0-16.0) % Plt Count 246 D (160-400) X10*3/uL MPV 10.0 (9.4-12.4) fL Immature Gran % (Auto) 0.9 H (0.0-0.4) % Neut % (Auto) 69.2 (45-73) % Lymph % (Auto) 18.8 L (20-40) % [place] % (Auto) 9.4 (2-11) % Eos % (Auto) 1.3 (0-4) % Baso % (Auto) 0.4 (0-2) % Lymph # (Auto) 2.2 (1.2-4.9) X10*3/uL [place] # (Auto) 1.1 (0.1-1.2) X10*3/uL Eos # (Auto) 0.2 (0.0-0.4) X10*3/uL Baso # (Auto) 0.1 (0.0-0.2) X10*3/uL Abs Immat Gran (auto) 0.10 H (0.00-0.03) X10*3/uL Absolute Neuts (auto) 8.0 (2.0-8.3) x10*3/uL Absolute Nucleated RBC 0.000 (0.0-0.012) X10*3/uL Nucleated RBC % (auto) 0.0 (0.0-0.2) /100WBC Sodium 138 (135-145) mmol/L Potassium 4.5 D (3.3-5.1) mmol/L Chloride 100 (96-108) mmol/L Carbon Dioxide 23 (22-29) mmol/L Anion Gap 20 (12-20) BUN 21 H (9-16) mg/dL Creatinine 0.94 (0.5-1.4) mg/dL Estim Creat Clear Calc 86.7 Estimated GFR > 60 Random Glucose 98 (60-115) mg/dL Calcium 10.2 D (8.4-10.2) mg/dL Total Bilirubin 0.3 (0.0-1.0) mg/dL Direct Bilirubin < 0.1 (0.0-0.5) mg/dL AST 34 (5-37) U/L ALT 38 (0-40) U/L Alkaline Phosphatase 68 (39-117) U/L Total Protein 8.2 H (6.5-8.0) g/dL Albumin 4.4 (3.5-5.0) g/dL Lipase 61 (8-78) U/L Influenza Type A (PCR) NEGATIVE (Negative) Influenza Type B (PCR) NEGATIVE (Negative) RSV RNA Qual (PCR) NEGATIVE (Negative) SARS-CoV-2 RNA (RT-PCR) NEGATIVE (Negative) Independent Interpretation I performed an independent interpretation of an: Plain X-Ray ( Chest: No acute cardiopulmonary findings.) and CT Scan ( Abdomen and pelvis:1. No acute findings identified in the abdomen/pelvis. Large amount of stool in the colon. 2. Coronary artery calcifications. Correlation with cardiac risk factors is recommended. ) Radiology Impression Discussion of test interpretation with radiology: I have reviewed the radiologist's reading. Medications Administered Discontinued Medications Generic Name Dose Route Start Last Admin Trade Name Freq PRN Reason Stop Dose Admin Al Hydroxide/Mg Hydroxide 30 ml 09/22/23 04:35 09/22/23 04:39 Magnesium Hydrox/Alum Hydrox 30 Ml Oral.Susp PO 09/22/23 04:36 30 ml ONCE ONE Administration Famotidine 20 mg 09/22/23 04:35 09/22/23 04:39 Famotidine/Pf 20 Mg/2 Ml Vial IVPUSH 09/22/23 04:36 20 mg ONCE ONE Administration Sodium Chloride 1,000 mls @ 999 mls/hr 09/22/23 04:36 09/22/23 06:11 Ns IV 09/22/23 05:36 Infused .Q1H1M ONE Infusion Ondansetron HCl 4 mg 09/22/23 04:35 09/22/23 04:39 Ondansetron Hcl 4 Mg/2 Ml Vial IVPUSH 09/22/23 04:36 4 mg ONCE ONE Administration Discharge Plan Discharge Clinical Impression: Gastritis Patient Disposition: Home, Self-Care Instructions: Gastritis (ED) Prescriptions: New omeprazole 40 mg capsule,delayed release(DR/EC) 40 mg PO DAILY Qty: 20 0RF No Action nicotine (polacrilex) 2 mg Gum 4 mg buccal Q2H PRN (Reason: Nicotine Cravings) 30 Days Qty: 120 1RF gabapentin 400 mg Capsule 400 mg PO BID 30 Days Qty: 60 0RF aspirin 81 mg tablet,delayed release (DR/EC) 81 mg PO DAILY 30 Days Qty: 30 0RF paroxetine HCl 30 mg tablet 30 mg PO BID 30 Days Qty: 60 0RF metformin 1,000 mg tablet 1,000 mg PO BID 30 Days Qty: 60 0RF omeprazole 20 mg capsule,delayed release(DR/EC) 20 mg PO DAILY@0630,1630 30 Days Qty: 60 0RF polyethylene glycol 3350 17 gram/dose powder 17 g PO BID PRN (Reason: Constipation) 30 Days Qty: 510 0RF albuterol sulfate [Ventolin HFA] 90 mcg/actuation HFA aerosol inhaler 2 puff INHALATION QID PRN (Reason: wheezing) 300 Days Qty: 1 0RF rosuvastatin 10 mg tablet 10 mg PO DAILY 30 Days Qty: 30 0RF fluticasone propion-salmeterol [Advair HFA] 115-21 mcg/actuation HFA aerosol inhaler 2 puff INHALATION BID 30 Days Qty: 1 0RF Januvia 100 mg tablet 100 mg PO DAILY 30 Days Qty: 30 0RF insulin glargine [Lantus Solostar U-100 Insulin] 100 unit/mL (3 mL) insulin pen 15 unit subcut BEDTIME 30 Days Qty: 4.5 0RF quetiapine 150 mg tablet extended release 24 hr 150 mg PO BEDTIME 30 Days Qty: 30 0RF insulin glargine 100 unit/mL Solution 15 unit subcut BEDTIME 30 Days Qty: 15 0RF lorazepam 1 mg tablet 1 mg PO TID Referrals: Jose Granados MD [Physician] - Print Language: U[place]
[2023-09-22] MEDS: ondansetron HCL 4 MG/2 ML VIAL IVPUSH (04:39)
[2023-09-22] MEDS: Magnesium Hydrox/Alum Hydrox 30 ML ORAL.SUSP PO (04:39)
[2023-09-22] MEDS: Famotidine/PF 20 MG/2 ML VIAL IVPUSH (04:39)
[2023-09-22 04:40] LABS: Basophils Absolute Auto 0.1 X10*3/uL (0.0-0.2); Basophils Percent Auto 0.4 % (0-2); Eosinophils Absolute Auto 0.2 X10*3/uL (0.0-0.4); Eosinophils Percent Auto 1.3 % (0-4); Hematocrit 43.1 % (42.0-52.0); Hemoglobin 15.2 g/dl (14.0-18.0); Imm Gran Pct Auto 0.9 % (0.0-0.4); Lymphocytes Absolute Auto 2.2 X10*3/uL (1.2-4.9); Lymphocytes Percent Auto 18.8 % (20-40); MANUAL DIFF FLAG NO; Mean Corpuscular HGB Conc 35.3 g/dl (31.0-36.0); Mean Corpuscular Hemoglobin 30.1 pg (27.0-33.0); Mean Corpuscular Volume 85.3 fL (80.0-98.0); Monocytes Absolute Auto 1.1 X10*3/uL (0.1-1.2); Monocytes Percent Auto 9.4 % (2-11); Neutrophils Percent Auto 69.2 % (45-73); Platelet Count 246 X10*3/uL (160-400); Red Blood Count 5.05 X10*6/uL (4.60-5.80); Red Cell Distribution Width 12.8 % (11.0-16.0); White Blood Count 11.6 X10*3/uL (4.8-10.8)
[2023-09-22] MEDS: 0.9 % Sodium Chloride 1,000 ML 999 ML IV (04:42)
[2023-09-22 05:00] LABS: Alanine Aminotransferase 38 U/L (0-40); Albumin Level 4.4 g/dL (3.5-5.0); Alkaline Phosphatase 68 U/L (39-117); Anion Gap 20 (12-20); Aspartate Amino Transferase 34 U/L (5-37); Bilirubin Direct < 0.1 mg/dL (0.0-0.5); Bilirubin Total 0.3 mg/dL (0.0-1.0); Blood Urea Nitrogen 21 mg/dL (9-16); Calcium 10.2 mg/dL (8.4-10.2); Carbon Dioxide 23 mmol/L (22-29); Chloride 100 mmol/L (96-108); Creatinine Clr Calc Pharmacy 86.7; Estimated Glomerular Filt Rate > 60; Glucose Random 98 mg/dL (60-115); Lipase 61 U/L (8-78); Potassium 4.5 mmol/L (3.3-5.1); Sodium 138 mmol/L (135-145); Total Protein 8.2 g/dL (6.5-8.0)
[2023-09-22 05:16] LABS: Influenza A PCR NEGATIVE (Negative); Influenza B PCR NEGATIVE (Negative); Resp Syncy Virus RNA Qual PCR NEGATIVE (Negative); SARS COV2 PCR INHOUSE NEGATIVE (Negative)
[2023-09-22 06:12] VITALS: BP 123/66; PULSE 89; RESP 16; TEMP 36.6; O2SAT 95
[2023-09-22 06:38] VITALS: BP 123/66; PULSE 89; RESP 16; TEMP 36.6; O2SAT 95
== END 2023-09-22 06:39 | disposition home or self-care (01) ==
PROVIDERS: Emergency Provider Emergency Medicine
DX: K29.70 Gastritis, unspecified, without bleeding (principal); R10.30 Lower abdominal pain, unspecified; R05.9 Cough, unspecified; Z03.818 Encounter for observation for suspected exposure to other biological agents ruled out; E11.8 Type 2 diabetes mellitus with unspecified complications; J45.909 Unspecified asthma, uncomplicated; F17.210 Nicotine dependence, cigarettes, uncomplicated; F12.90 Cannabis use, unspecified, uncomplicated; Z79.4 Long term (current) use of insulin; Z79.84 Long term (current) use of oral hypoglycemic drugs; Z79.899 Other long term (current) drug therapy; Z79.82 Long term (current) use of aspirin; Z79.02 Long term (current) use of antithrombotics/antiplatelets
CPT/HCPCS: 0241U; 36415; 71045; 74176; 80048; 80076; 83690; 85025; 96361; 96374; 96375; 99284; J2405

== ENCOUNTER 2023-11-25 22:33 | Emergency (ER) | payer OTHER, SELFPAY ==
--- NOTE | 2023-11-25 22:42 | ECG_ITS ---
Test Reason : CHEST PAIN Blood Pressure : / mmHG Vent. Rate : 065 BPM Atrial Rate : 065 BPM P-R Int : 126 ms QRS Dur : 080 ms QT Int : 400 ms P-R-T Axes : 015 053 013 degrees QTc Int : 416 ms Normal sinus rhythm Normal ECG When compared with ECG of 16-SEP-2023 15:25, No significant change was found Referred By: Generic ED Physician Electronically Signed By:VITO SAAVEDRA
[2023-11-25 22:47] VITALS: BP 142/78; PULSE 72; O2SAT 100
[2023-11-25 22:53] VITALS: BP 147/79; PULSE 71; RESP 20; TEMP 36.7; O2SAT 100; BMI 24.6
[2023-11-25 23:07] LABS: MANUAL DIFF FLAG NO
[2023-11-25 23:10] LABS: Basophils Absolute Auto 0.1 X10*3/uL (0.0-0.2); Basophils Percent Auto 0.4 % (0-2); Eosinophils Absolute Auto 0.1 X10*3/uL (0.0-0.4); Eosinophils Percent Auto 0.6 % (0-4); Hematocrit 39.7 % (42.0-52.0); Imm Gran Abs Auto 0.07 X10*3/uL (0.00-0.03); Imm Gran Pct Auto 0.5 % (0.0-0.4); Lymphocytes Absolute Auto 1.6 X10*3/uL (1.2-4.9); Mean Corpuscular HGB Conc 35.3 g/dl (31.0-36.0); Mean Corpuscular Hemoglobin 29.3 pg (27.0-33.0); Mean Corpuscular Volume 83.1 fL (80.0-98.0); Mean Platelet Volume 9.5 fL (9.4-12.4); Monocytes Absolute Auto 1.2 X10*3/uL (0.1-1.2); Monocytes Percent Auto 8.2 % (2-11); Neutrophils Absolute Auto 11.3 x10*3/uL (2.0-8.3); Neutrophils Percent Auto 79.3 % (45-73); Platelet Count 257 X10*3/uL (160-400); Red Blood Count 4.78 X10*6/uL (4.60-5.80); White Blood Count 14.2 X10*3/uL (4.8-10.8)
[2023-11-25 23:22] LABS: Anion Gap 17 (12-20); Blood Urea Nitrogen 20 mg/dL (9-16); Calcium 9.4 mg/dL (8.4-10.2); Carbon Dioxide 27 mmol/L (22-29); Chloride 98 mmol/L (96-108); Creatinine Clr Calc Pharmacy 74.7; Estimated Glomerular Filt Rate > 60; Glucose Random 161 mg/dL (60-115); Potassium 3.8 mmol/L (3.3-5.1); Sodium 138 mmol/L (135-145)
[2023-11-25 23:30] LABS: Troponin-I High Sensitivity 4.3 ng/L (<3.5-35.0)
[2023-11-25 23:33] VITALS: BP 169/65; PULSE 67; PULSE 79; RESP 15; TEMP 36.5; O2SAT 97
[2023-11-25 23:37] LABS: Ethanol < 10 mg/dL
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
[2023-11-25] MEDS: LORazepam 1 MG TABLET 2 MG PO (23:47)
--- NOTE | 2023-11-25 23:48 | PC.NURSE ---
Assumed care of pt at 2300. pt moved from 17h ot 14 for continuous cardiac monitoring. PT a/ox3, responding to internal stimuli. Reports he has cancer all over his body and it was found via an an ancient and illegal angolan method . PT reports he used cocaine days a ago and has a longstanding use history but has not used in a couple of days. Pt placed on cardiac technician NSR 74bpm, vss stable. PT medicated as per APR. Plan of care ongoing
[2023-11-26 00:25] VITALS: BP 126/63; PULSE 72; RESP 16; TEMP 36.5; O2SAT 97
[2023-11-26 06:00] VITALS: BP 113/65; PULSE 78; RESP 16; TEMP 36.4; O2SAT 98
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
--- NOTE | 2023-11-26 07:23 | PC.NURSE ---
report received from previous RN, patient resting comfortably on stretcher, offering no complaints at this time, endorsing feeling much better, denies pain at this time. remains on credit authorizer, educated on need for urine sample. plan of care ongoing. awaiting reeval.
[2023-11-26 08:00] VITALS: BP 119/72; PULSE 73; RESP 18; TEMP 36.4; O2SAT 97
[2023-11-26 08:51] LABS: Amphetamine Screen Urine Not Detected (Not Detect); Barbiturates, Urine Not Detected (Not Detect); Benzodiazepines Screen Urine Not Detected (Not Detect); Buprenorphine Scr Not Detected (Not Detect); Cannabinoid Screen Urine POSITIVE (Not Detect); Cocaine Screen Urine POSITIVE (Not Detect); Fentanyl, urine Not Detected (Not Detect); Methadone Screen, Urine Not Detected (Not Detect); Opiate Screen Urine Not Detected (Not Detect); Oxycodone Screen Urine Not Detected (Not Detect); Phencyclidine Screen Urine Not Detected (Not Detect)
--- NOTE | 2023-11-26 10:25 | PC.NURSE ---
care team at bedside
[2023-11-26 11:34] VITALS: BP 131/68; PULSE 75; RESP 16; TEMP -17.7; TEMP 0
== END 2023-11-26 11:34 | disposition home or self-care (01) ==
PROVIDERS: Emergency Provider Emergency Medicine
DX: F22 Delusional disorders (principal); F14.151 Cocaine abuse with cocaine-induced psychotic disorder with hallucinations; R07.9 Chest pain, unspecified; F41.9 Anxiety disorder, unspecified; F32.A Depression, unspecified; E11.9 Type 2 diabetes mellitus without complications; I10 Essential (primary) hypertension; E78.5 Hyperlipidemia, unspecified; F17.210 Nicotine dependence, cigarettes, uncomplicated; Z86.73 Personal history of transient ischemic attack (TIA), and cerebral infarction without residual deficits; Z79.899 Other long term (current) drug therapy; Z79.02 Long term (current) use of antithrombotics/antiplatelets; Z79.82 Long term (current) use of aspirin; Z79.4 Long term (current) use of insulin; Z79.84 Long term (current) use of oral hypoglycemic drugs
CPT/HCPCS: 36415; 80048; 80307; 84484; 85025; 93005; 99285; S9485

== ENCOUNTER 2023-11-26 17:51 | Inpatient (IN) | payer OTHER, SELFPAY ==
--- NOTE | ~2023-11-26 | XR_ITS ---
EXAMINATION: XR CHEST CLINICAL INFORMATION: Chest pain. COMPARISON: Chest radiograph dated 09/22/2023. TECHNIQUE: Frontal view of the chest was obtained. FINDINGS: The lungs are clear. The cardiomediastinal silhouette is normal in size. There is no pleural effusion or pneumothorax. No acute osseous abnormality. XR/XR chest 1V IMPRESSION: No acute cardiopulmonary findings. Electronically signed by: Bryant Baldwin MD 11/26/2023 10:11 PM EDT
[2023-11-26 18:16] VITALS: BP 119/69; PULSE 78; RESP 16; TEMP 36.8; O2SAT 100; BMI 24.4
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
--- NOTE | 2023-11-26 18:21 | ECG_ITS ---
Test Reason : CHEST PAIN Blood Pressure : / mmHG Vent. Rate : 065 BPM Atrial Rate : 065 BPM P-R Int : 140 ms QRS Dur : 084 ms QT Int : 396 ms P-R-T Axes : 018 056 038 degrees QTc Int : 411 ms Normal sinus rhythm Normal ECG When compared with ECG of 25-NOV-2023 22:41, No significant change was found Referred By: Carlos Lopez Electronically Signed By:VITO SAAVEDRA
[2023-11-26 18:43] LABS: MANUAL DIFF FLAG NO
[2023-11-26 18:48] LABS: Basophils Percent Auto 0.4 % (0-2); Eosinophils Percent Auto 0.4 % (0-4); Hematocrit 43.8 % (42.0-52.0); Hemoglobin 14.9 g/dl (14.0-18.0); Imm Gran Abs Auto 0.03 X10*3/uL (0.00-0.03); Imm Gran Pct Auto 0.4 % (0.0-0.4); Lymphocytes Absolute Auto 1.4 X10*3/uL (1.2-4.9); Lymphocytes Percent Auto 17.1 % (20-40); Mean Corpuscular Hemoglobin 29.2 pg (27.0-33.0); Mean Corpuscular Volume 85.7 fL (80.0-98.0); Mean Platelet Volume 9.8 fL (9.4-12.4); Monocytes Absolute Auto 0.6 X10*3/uL (0.1-1.2); Monocytes Percent Auto 6.9 % (2-11); Neutrophils Percent Auto 74.8 % (45-73); Platelet Count 296 X10*3/uL (160-400); Red Blood Count 5.11 X10*6/uL (4.60-5.80)
[2023-11-26 18:53] LABS: Prothrombin Time 11.7 SEC (10.9-12.4)
[2023-11-26 18:56] LABS: Partial Thromboplastin Time 33.2 SEC (26.0-36.8)
[2023-11-26 19:02] LABS: Alanine Aminotransferase 43 U/L (0-40); Albumin Level 4.6 g/dL (3.5-5.0); Alkaline Phosphatase 93 U/L (39-117); Anion Gap 14 (12-20); Aspartate Amino Transferase 43 U/L (5-37); Bilirubin Total 0.6 mg/dL (0.0-1.0); Blood Urea Nitrogen 17 mg/dL (9-16); Calcium 9.8 mg/dL (8.4-10.2); Carbon Dioxide 29 mmol/L (22-29); Chloride 98 mmol/L (96-108); Creatinine Clr Calc Pharmacy 68.6; Estimated Glomerular Filt Rate > 60; Glucose Random 157 mg/dL (60-115); Potassium 4.4 mmol/L (3.3-5.1); Sodium 137 mmol/L (135-145); Total Protein 8.6 g/dL (6.5-8.0)
[2023-11-26 19:08] LABS: B Type Natriuretic Peptide 22 pg/mL (<100)
[2023-11-26 19:10] LABS: Troponin-I High Sensitivity < 2.7 ng/L (<3.5-35.0)
--- NOTE | 2023-11-26 21:40 | MHC.EDTECH ---
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
[2023-11-26 21:50] VITALS: BP 128/59; PULSE 64; RESP 18; TEMP 36.4; O2SAT 97
--- NOTE | 2023-11-26 21:51 | MHC.EDTECH ---
Hourly rounds and vitals completed,patient is resting quietly
[2023-11-26] MEDS: LORazepam 1 MG TABLET 2 MG PO (22:11)
[2023-11-26 23:02] LABS: Ethanol < 10 mg/dL
[2023-11-26 23:11] LABS: Amphetamine Screen Urine Not Detected (Not Detect); Barbiturates, Urine Not Detected (Not Detect); Benzodiazepines Screen Urine Not Detected (Not Detect); Buprenorphine Scr Not Detected (Not Detect); Cannabinoid Screen Urine POSITIVE (Not Detect); Cocaine Screen Urine POSITIVE (Not Detect); Fentanyl, urine Not Detected (Not Detect); Methadone Screen, Urine Not Detected (Not Detect); Opiate Screen Urine Not Detected (Not Detect); Oxycodone Screen Urine Not Detected (Not Detect); Phencyclidine Screen Urine Not Detected (Not Detect)
[2023-11-26 23:36] VITALS: BP 130/75; PULSE 70; RESP 18; TEMP 36.8; O2SAT 99
--- NOTE | 2023-11-26 23:38 | MHC.EDTECH ---
Hourly rounds and vitals completed,patient is resting quietly
--- NOTE | 2023-11-27 02:33 | MHC.EDTECH ---
Care team at bedside,patient given a cup of binh chance and kirk crackers
--- NOTE | 2023-11-27 02:58 | MHC.EDTECH ---
Security call to assist with changeover,patient was placed into crisis attire,all belongings placed in [facility] except knife/cigarettes and forging press setter up they are in security office.
--- NOTE | 2023-11-27 05:24 | PC.NURSE ---
client came to door and was speaking quietly was talking about a form of communication in [place] and i asked if he wanted a medicine in regards to this. he told me to write it down , unclear to me if i understand client but at this time it seemed hes possibly experiencing hallucinations but maybe unwilling to take a med as yet.
[2023-11-27 05:34] VITALS: BP 140/63; PULSE 74; RESP 18; TEMP 36.6; O2SAT 96
--- NOTE | 2023-11-27 07:10 | PC.NURSE ---
Assumed care of patient at 0645, patient appears to be sleeping, respirations even and unlabored, no apparent distress noted. Continue plan of care for inpatient bedsearch
[2023-11-27 08:02] LABS: Appearance Urine Clear; Color Urine Yellow; Glucose Urine UA Negative (Negative); Leukocyte Esterase Urine Negative (Negative); Nitrite Urine Negative (Negative); PH 6.5 (5.0-9.0); Specific Gravity - Urine 1.025 (1.005-1.025); UMIC TRIGGER UA YES; Urine Blood Negative (Negative); Urine Ketones Trace mg/dL (Negative); Urine Protein 30 (1+) mg/dL (Neg-Trace)
[2023-11-27 08:05] LABS: Bacteria Urine None Seen (None Seen); Hyaline Casts Urine 0-2 /LPF (0-2); RBC Urine 0-2 /HPF (0-2); Squamous Epithelial Cell Urine 0-2 /HPF (0-2); WBC Urine 0-5 /HPF (0-5)
--- NOTE | 2023-11-27 08:31 | PHA.MEDREC ---
Pharmacy Consult ? Medication Reconciliation Pharmacy has reviewed the medication reconciliation completed by nursing. Pt last filled Lantus in May for 100 day supply.
[2023-11-27] MEDS: Aspirin Enteric Coated 81 MG TABLET.DR PO (09:23)
[2023-11-27] MEDS: LORazepam 1 MG TABLET PO ×2 (09:23→14:30)
[2023-11-27] MEDS: Atorvastatin Calcium 40 MG TABLET PO (09:23)
[2023-11-27] MEDS: QUEtiapine Fumarate 25 MG TABLET 75 MG PO (09:23)
[2023-11-27] MEDS: Gabapentin 400 MG CAPSULE PO (09:23)
[2023-11-27] MEDS: metFORMIN HCl 1,000 MG TABLET 1000 MG PO (09:23)
[2023-11-27] MEDS: PARoxetine HCL 30 MG TABLET PO (09:23)
[2023-11-27] MEDS: SITagliptin Phosphate 100 MG TABLET PO (09:23)
--- NOTE | 2023-11-27 11:34 | PC.NURSE ---
Pt continues to rest comfortably in his room, no apparent distress. Pt took shower and is now watching TV.
--- NOTE | 2023-11-27 14:12 | HO.PSYADMNOT ---
HPI Date of Service: 11/27/23 Chief Complaint: SI HPI Narrative: pt self-presented to ED c/o cocaine use and neighbors targeting him with sound wave device. h/o one prior presentation for cocaine-induced psychosis. pt denied any safety concerns, was medically cleared, and sent to for admission. on discussion of CV with pt on unit, pt reported he did not wish to remain on the unit and was asking for discharge. he reported hearing the voice of cricket boles, whom he reported had described himself as psychiatry supervisor belt and link assembly on M5 telling him to leave the hospital. he again denied any safety concerns and stated he did not wish to remain in the hospital. informed him there was no such person, nor such position, in the hospital. pt persisted, asking for assurances he would be allowed to return, as cricket was telling him if he left he would not be allowed to be readmitted to the hospital. MD assured pt he could return any time to be re-evaluated for admission, and, at patient's request, provided patient with a letter on hospital stationery stating such. pt appeared satisfied and was discharged as per his request. Past Psychiatric History: 2nd inpatient psychiatric admission. 1 detox admission at [facility] Medical Evaluation Reviewed: Yes [facility] Medical History Anxiety Diabetes Family History: unknown Social History: Lives with , 4 children (2 adults, 2 13y/o who live in [place] with pt's brother), disability. Highschool diploma. Substance History: cocaine - daily,chronic Trauma History: denies Diagnostics Vital Signs (24Hr): Vital Signs - 24 hr 11/26/23 18:16 11/26/23 21:50 11/26/23 23:36 Temperature 98.3 F 97.5 F 98.2 F Pulse Rate 78 64 70 Respiratory Rate 16 18 18 Blood Pressure 119/69 128/59 L 130/75 Pulse Oximetry 100 97 99 Oxygen Delivery Method Room Air Room Air Room Air 11/27/23 05:34 Temperature 97.9 F Pulse Rate 74 Respiratory Rate 18 Blood Pressure 140/63 H Pulse Oximetry 96 Oxygen Delivery Method Room Air BMI result Body Mass Index 24.4 Labs 11/26/23 18:35 11/26/23 18:35 Labs: Laboratory Results - last 48 hr 11/26/23 11/26/23 18:35 22:53 WBC 8.0 RBC 5.11 Hgb 14.9 Hct 43.8 MCV 85.7 MCH 29.2 MCHC 34.0 RDW 13.0 Plt Count 296 MPV 9.8 Immature Gran % (Auto) 0.4 Neut % (Auto) 74.8 H Lymph % (Auto) 17.1 L [place] % (Auto) 6.9 Eos % (Auto) 0.4 Baso % (Auto) 0.4 Lymph # (Auto) 1.4 [place] # (Auto) 0.6 Eos # (Auto) 0.0 Baso # (Auto) 0.0 Abs Immat Gran (auto) 0.03 Absolute Neuts (auto) 6.0 Absolute Nucleated RBC 0.000 Nucleated RBC % (auto) 0.0 PT 11.7 INR 1.0 APTT 33.2 Sodium 137 Potassium 4.4 Chloride 98 Carbon Dioxide 29 Anion Gap 14 BUN 17 H Creatinine 1.11 Estim Creat Clear Calc 68.6 Estimated GFR > 60 Random Glucose 157 H Calcium 9.8 Total Bilirubin 0.6 AST 43 H ALT 43 H Alkaline Phosphatase 93 Troponin I High Sens < 2.7 B-Natriuretic Peptide 22 Total Protein 8.6 H Albumin 4.6 Urine Color Yellow Urine Appearance Clear Urine pH 6.5 Ur Specific [place] 1.025 Urine Protein 30 (1+) H Urine Glucose (UA) Negative Urine Ketones Trace Urine Blood Negative Urine Nitrite Negative Ur Leukocyte Esterase Negative Urine RBC 0-2 Urine WBC 0-5 Ur Squamous Epith Cells 0-2 Urine Bacteria None Seen Hyaline Casts 0-2 Urine Opiates Screen Not Detected Ur Buprenorphine Scrn Not Detected Ur Oxycodone Screen Not Detected Urine Methadone Screen Not Detected Urine Fentanyl Screen Not Detected Ur Barbiturates Screen Not Detected Ur Phencyclidine Scrn Not Detected Ur Amphetamines Screen Not Detected U Benzodiazepines Scrn Not Detected Urine Cocaine Screen POSITIVE H U Marijuana (THC) Screen POSITIVE H Ethyl Alcohol < 10 Imaging Radiology Impressions: ITS Impressions Chest X-Ray 11/26/23 18:21 IMPRESSION: No acute cardiopulmonary findings. Electronically signed by: Bryant Baldwin MD 11/26/2023 10:11 PM EDT Meds/Allergies Meds Home Medications ?Medication ?Instructions ?Recorded ?Confirmed ?Type lorazepam 1 mg tablet 1 mg PO TID 06/25/23 11/28/23 History omeprazole 20 mg capsule,delayed 20 mg PO BEDTIME 11/29/23 11/29/23 History release Allergies Allergies Allergy/AdvReac Type Severity Reaction Status Date / Time glipizide [GLIPIZIDE] Allergy Intermediate ITCHY Verified 11/27/23 22:16 oxycodone [From TYLOX] AdvReac Intermediate CHEST PAINS Verified 11/27/23 22:16 Mental Status Exam Mental Status Exam Narrative: Pt is alert and oriented; behavior is cooperative, friendly and calm; dressed in hospital attire; mood is described as calm. eye contact appropriate; Speech is normal rate, volume and not pressured; thought process is organized; Thought content is with paranoid delusions; denies SI/HI/VH. endorses AH of cricket boles who states he is the psychiatry supervisor belt and link assembly on M5. Assessment & Plan Assessment & Plan (1) Cocaine use disorder: Status: Acute Code(s): F14.10 - Cocaine abuse, uncomplicated (2) MDD (major depressive disorder), recurrent episode, moderate: Status: Acute Code(s): F33.1 - Major depressive disorder, recurrent, moderate (3) Substance-induced psychotic disorder: Status: Acute Code(s): F19.959 - Other psychoactive substance use, unspecified with psychoactive substance-induced psychotic disorder, unspecified Plan apparently becomes psychotic when using cocaine. once abstinent for some days psychosis abates. declining admission, self-presented, safe. no indication for section 12b. pt discharged shortly after arrival on unit, as per his request. Patient educated on: diagnosis, medication risk/benefits and substance abuse Reason for continued inpatient stay Substantial Risk for: inability to function Statement Statement: I have reviewed the history and physical and performed a pertinent examination on my patient. No changes have occurred unless specified. If the History and Physical was not performed prior to admission, the Hospitalist's service will be consulted for completing the admission physical. Time Spent With Patient Time: Total time managing care of this patient today __75__ minutes.
--- NOTE | 2023-11-27 14:12 | PM.PSYDC ---
DS: Providers Provider Date of Service: 11/27/23 Date of admission: 11/27/23 11:35 Primary care physician: Unknown Physician DS: Medications Discharge Medications Home Medications: Home Medications ?Medication ?Instructions ?Recorded ?Confirmed lorazepam 1 mg tablet 1 mg PO TID 06/25/23 11/26/23 Previous Rx's ?Medication ?Instructions ?Recorded albuterol sulfate 90 mcg/actuation 2 puff inhalation QID PRN wheezing 09/21/23 aerosol inhaler (Ventolin HFA) 300 days #1 inhaler aspirin 81 mg tablet,delayed 81 mg PO DAILY 30 days #30 tabs 09/21/23 release fluticasone propionate 115 2 puff inhalation BID 30 days #1 09/21/23 mcg-salmeterol 21 mcg/actuation inhaler HFA inhaler (Advair HFA) gabapentin 400 mg capsule 400 mg PO BID 30 days #60 caps 09/21/23 insulin glargine 100 unit/mL 15 unit (0.15 mL) subcut BEDTIME 09/21/23 subcutaneous solution 30 days #15 mL metformin 1,000 mg tablet 1,000 mg PO BID 30 days #60 tabs 09/21/23 nicotine (polacrilex) 2 mg gum 4 mg buccal Q2H PRN Nicotine 09/21/23 Cravings 30 days #120 ea paroxetine HCl 30 mg tablet 30 mg PO BID 30 days #60 tabs 09/21/23 quetiapine 150 mg tablet,extended 150 mg PO BEDTIME 30 days #30 tabs 09/21/23 release 24 hr rosuvastatin 10 mg tablet 10 mg PO DAILY 30 days #30 tabs 09/21/23 sitagliptin phosphate 100 mg 100 mg PO DAILY 30 days #30 tabs 09/21/23 tablet (Januvia) Mental Status Exam Mental Status Exam Narrative: Pt is alert and oriented; behavior is cooperative, friendly and calm; dressed in hospital attire; mood is described as calm. eye contact appropriate; Speech is normal rate, volume and not pressured; thought process is organized; Thought content is with paranoid delusions; denies SI/HI/VH. endorses AH of cricket boles who states he is the psychiatry net making supervisor on M5. Data Data Completed and Pending Completed studies during hospitalization [Text1]: 11/26/23 11/26/23 18:35 22:53 WBC 8.0 RBC 5.11 Hgb 14.9 Hct 43.8 MCV 85.7 MCH 29.2 MCHC 34.0 RDW 13.0 Plt Count 296 MPV 9.8 Immature Gran % (Auto) 0.4 Neut % (Auto) 74.8 H Lymph % (Auto) 17.1 L [place] % (Auto) 6.9 Eos % (Auto) 0.4 Baso % (Auto) 0.4 Lymph # (Auto) 1.4 [place] # (Auto) 0.6 Eos # (Auto) 0.0 Baso # (Auto) 0.0 Abs Immat Gran (auto) 0.03 Absolute Neuts (auto) 6.0 Absolute Nucleated RBC 0.000 Nucleated RBC % (auto) 0.0 PT 11.7 INR 1.0 APTT 33.2 Sodium 137 Potassium 4.4 Chloride 98 Carbon Dioxide 29 Anion Gap 14 BUN 17 H Creatinine 1.11 Estim Creat Clear Calc 68.6 Estimated GFR > 60 Random Glucose 157 H Calcium 9.8 Total Bilirubin 0.6 AST 43 H ALT 43 H Alkaline Phosphatase 93 Troponin I High Sens < 2.7 B-Natriuretic Peptide 22 Total Protein 8.6 H Albumin 4.6 Urine Color Yellow Urine Appearance Clear Urine pH 6.5 Ur Specific [place] 1.025 Urine Protein 30 (1+) H Urine Glucose (UA) Negative Urine Ketones Trace Urine Blood Negative Urine Nitrite Negative Ur Leukocyte Esterase Negative Urine RBC 0-2 Urine WBC 0-5 Ur Squamous Epith Cells 0-2 Urine Bacteria None Seen Hyaline Casts 0-2 Urine Opiates Screen Not Detected Ur Buprenorphine Scrn Not Detected Ur Oxycodone Screen Not Detected Urine Methadone Screen Not Detected Urine Fentanyl Screen Not Detected Ur Barbiturates Screen Not Detected Ur Phencyclidine Scrn Not Detected Ur Amphetamines Screen Not Detected U Benzodiazepines Scrn Not Detected Urine Cocaine Screen POSITIVE H U Marijuana (THC) Screen POSITIVE H Ethyl Alcohol < 10 Imaging Diagnostic Imaging Impressions Chest X-Ray 11/26/23 18:21 IMPRESSION: No acute cardiopulmonary findings. Electronically signed by: Bryant Baldwin MD 11/26/2023 10:11 PM EDT RP DS: Summary Hospital Course Hospital Course: per 11/26 admission note: HPI Narrative: pt self-presented to ED c/o cocaine use and neighbors targeting him with sound wave device. h/o one prior presentation for cocaine-induced psychosis. pt denied any safety concerns, was medically cleared, and sent to [facility] for admission. on discussion of CV with pt on unit, pt reported he did not wish to remain on the unit and was asking for discharge. he reported hearing the voice of cricket harrisarez, whom he reported had described himself as psychiatry net making supervisor on M5 telling him to leave the hospital. he again denied any safety concerns and stated he did not wish to remain in the hospital. informed him there was no such person, nor such position, in the hospital. pt persisted, asking for assurances he would be allowed to return, as cricket was telling him if he left he would not be allowed to be readmitted to the hospital. MD assured pt he could return any time to be re-evaluated for admission, and, at patient's request, provided patient with a letter on hospital stationery stating such. pt appeared satisfied and was discharged as per his request. Past Psychiatric History: 2nd inpatient psychiatric admission. 1 detox admission at [facility] Medical Evaluation Reviewed: Yes [facility] Medical History Anxiety Diabetes Family History: unknown Social History: Lives with , 4 children (2 adults, 2 13y/o who live in [place] with pt's brother), disability. Highschool diploma. Substance History: cocaine - daily,chronic Trauma History: denies Plan: apparently becomes psychotic when using cocaine. once abstinent for some days psychosis abates. declining admission, self-presented, safe. no indication for section 12b. pt discharged shortly after arrival on unit, as per his request. Time Spent with Patient Time attestation: Total time managing care of this patient today __75__ minutes. Discharge Plan Discharge Anticipated Discharge Date/Time: 11/27/23 14:09 Patient Disposition: Home, Self-Care Discharge Diagnosis: Substance-Induced Psychosis (Cocaine) Cocaine Use Disorder Referrals: [facility] [Provider Group] - 1 Week ([facility] has been added to patients chart. Please call [phone] to schedule a follow up appt.) Discharge Medications: Continued nicotine (polacrilex) 2 mg Gum 4 mg buccal Q2H PRN (Reason: Nicotine Cravings) 30 Days Qty: 120 1RF gabapentin 400 mg Capsule 400 mg PO BID 30 Days Qty: 60 0RF aspirin 81 mg tablet,delayed release (DR/EC) 81 mg PO DAILY 30 Days Qty: 30 0RF paroxetine HCl 30 mg tablet 30 mg PO BID 30 Days Qty: 60 0RF metformin 1,000 mg tablet 1,000 mg PO BID 30 Days Qty: 60 0RF albuterol sulfate [Ventolin HFA] 90 mcg/actuation HFA aerosol inhaler 2 puff INHALATION QID PRN (Reason: wheezing) 300 Days Qty: 1 0RF rosuvastatin 10 mg tablet 10 mg PO DAILY 30 Days Qty: 30 0RF fluticasone propion-salmeterol [Advair HFA] 115-21 mcg/actuation HFA aerosol inhaler 2 puff INHALATION BID 30 Days Qty: 1 0RF Januvia 100 mg tablet 100 mg PO DAILY 30 Days Qty: 30 0RF quetiapine 150 mg tablet extended release 24 hr 150 mg PO BEDTIME 30 Days Qty: 30 0RF insulin glargine 100 unit/mL Solution 15 unit subcut BEDTIME 30 Days Qty: 15 0RF lorazepam 1 mg tablet 1 mg PO TID No Action omeprazole 20 mg capsule,delayed release(DR/EC) 20 mg PO BEDTIME Discharge Orders: Discharge Order (Routine); Ordered 11/27/23 Ordered By: Darrel Saavedra Diet: Diabetic diet Activity on Discharge: As tolerated Stand Alone Forms: Patient Portal Discharge page, Community Support Print Language: Yemeni Care Plan Goals: remain safe and stable in the outpatient treatment setting Health Concerns: Diabetes Mellitus Cocaine Use Plan of Treatment: take medications as prescribed, attend appointments as scheduled Assessment: not at imminent risk of harm to self or others Discharge Date/Time: 11/27/23 14:55
--- NOTE | 2023-11-27 15:07 | PC.ADMIT ---
Andreas Conway was admitted to M3 at 12:26 from Pod on a 12a for paranoid thoughts at home, following cocaine and marijuana use. During our discussion pt was thought-blocking, self-dialoguing, and appearing increasingly anxious and restless. Pt expressed that he wants to go home and that ?his discharge is being processed at the moment on M5?. Pt was cooperative with change-off and signing ROIs, while waiting for the provider to arrive on the unit however he insisted on leaving. Pt talked with the provider who ordered for the pt to be discharged.
== END 2023-11-27 14:55 | disposition home or self-care (01) | DRG 897 ==
LOC: HO.ED 11-27 03:35 → HO.PADLT16 11-27 11:40
PROVIDERS: Physician Assistant; Admitting Provider Psychiatry & Neurology Psychiatry; Emergency Provider Emergency Medicine; Visit Provider Psychiatry & Neurology Psychiatry
DX: F14.150 Cocaine abuse with cocaine-induced psychotic disorder with delusions (principal); F33.1 Major depressive disorder, recurrent, moderate; F17.210 Nicotine dependence, cigarettes, uncomplicated; Z23 Encounter for immunization; Z71.6 Tobacco abuse counseling; Z79.4 Long term (current) use of insulin; Z79.82 Long term (current) use of aspirin; Z79.84 Long term (current) use of oral hypoglycemic drugs; Z79.899 Other long term (current) drug therapy
CPT/HCPCS: 36415; 71045; 80053; 80307; 81001; 81003; 83880; 84484; 85025; 85610; 85730; 93005; 99285; S9485

== ENCOUNTER → 2023-11-27 11:35 | Outpatient (BNV) | payer OTHER, SELFPAY | PROVIDERS: Admitting Provider Psychiatry & Neurology Psychiatry; Emergency Provider Emergency Medicine; Visit Provider Psychiatry & Neurology Psychiatry | DX: F33.1 Major depressive disorder, recurrent, moderate (principal); F14.10 Cocaine abuse, uncomplicated; F19.959 Other psychoactive substance use, unspecified with psychoactive substance-induced psychotic disorder, unspecified | CPT/HCPCS: 90792; 99235; 99499 ==

== ENCOUNTER 2023-11-27 22:05 | Inpatient (IN) | payer OTHER, SELFPAY ==
[2023-11-27 22:15] VITALS: BP 140/84; PULSE 96; RESP 16; TEMP 36.6; O2SAT 98; BMI 23.5
[2023-11-27 22:51] LABS: IDNOW Serial# 152EDE1D; Influenza A Negative (Negative); Influenza B2 Negative (Negative)
[2023-11-27 22:51] LABS: COVID-19 Test Negative (Negative); IDNOW Serial# 9DB6401D
[2023-11-27 22:52] LABS: IDNOW Serial# 08D9AD1C; Strep A Nucleic Acid Negative (Negative)
--- NOTE | 2023-11-27 23:03 | MHC.EDTECH ---
belongings placed in [place]
--- NOTE | 2023-11-27 23:19 | ED.GENADULT ---
HPI - General Adult General Chief complaint: General Medical Stated complaint: ? sinus infection Time Seen by Provider: 11/27/23 22:54 Source: patient Mode of arrival: ambulatory Limitations: no limitations History of Present Illness ED Provider: garrett ONTIVEROS narrative: 58 yo male with PMH of HTN, HLD, DM, CVA with history of cocaine induced hallucinations and paranoia patient was seen here yesterday for paranoia and seen by behavioral health worker and discharge today he comes as having nasal congestion for last several days also complaining that his mind is not working and feels suicidal without any plans Related Data Home Medications ?Medication ?Instructions ?Recorded ?Confirmed lorazepam 1 mg tablet 1 mg PO TID 06/25/23 11/26/23 Previous Rx's ?Medication ?Instructions ?Recorded albuterol sulfate 90 mcg/actuation 2 puff inhalation QID PRN wheezing 09/21/23 aerosol inhaler (Ventolin HFA) 300 days #1 inhaler aspirin 81 mg tablet,delayed 81 mg PO DAILY 30 days #30 tabs 09/21/23 release fluticasone propionate 115 2 puff inhalation BID 30 days #1 09/21/23 mcg-salmeterol 21 mcg/actuation inhaler HFA inhaler (Advair HFA) gabapentin 400 mg capsule 400 mg PO BID 30 days #60 caps 09/21/23 insulin glargine 100 unit/mL 15 unit (0.15 mL) subcut BEDTIME 09/21/23 subcutaneous solution 30 days #15 mL metformin 1,000 mg tablet 1,000 mg PO BID 30 days #60 tabs 09/21/23 nicotine (polacrilex) 2 mg gum 4 mg buccal Q2H PRN Nicotine 09/21/23 Cravings 30 days #120 ea paroxetine HCl 30 mg tablet 30 mg PO BID 30 days #60 tabs 09/21/23 quetiapine 150 mg tablet,extended 150 mg PO BEDTIME 30 days #30 tabs 09/21/23 release 24 hr rosuvastatin 10 mg tablet 10 mg PO DAILY 30 days #30 tabs 09/21/23 sitagliptin phosphate 100 mg 100 mg PO DAILY 30 days #30 tabs 09/21/23 tablet (Januvia) Allergies Allergy/AdvReac Type Severity Reaction Status Date / Time glipizide [GLIPIZIDE] Allergy Intermediate ITCHY Verified 11/27/23 22:16 oxycodone [From TYLOX] AdvReac Intermediate CHEST PAINS Verified 11/27/23 22:16 Review of Systems Review of Systems: Yes all other systems are reviewed and are negative [facility] Past Medical History Medical History Anxiety Diabetes Social History Social History Household Members: Significant Other Housing: Apartment Do you presently have visiting nurse or other home services: No Unable to assess alcohol history related to: Unknown Alcohol intake: current Alcohol intake frequency: a few times a month Alcohol type: beer Patient Tobacco Use Status: Former Tobacco user Tobacco use type: Cigarette Cigarette Packs Per Day: 1.5 Cigarettes Per Day: 30.0 e-Cigarette/Vaping Use: Never Used Second Hand Smoke Exposure: No Substance Use Type: Crack/Cocaine Advance Directives Date on File: 10/24/21 service: No Sexual orientation: Straight/Heterosexual Physical Exam ED Vital Signs: Vital Signs - 24 hr 11/27/23 22:15 Temperature 98 F Pulse Rate 96 Respiratory Rate 16 Blood Pressure 140/84 H Pulse Oximetry 98 Oxygen Delivery Method Room Air BMI result Body Mass Index 23.5 Appearance: Alert. Oriented X3. No acute distress. Eyes: No pallor or icterus ENT: Pharynx normal. Oral Mucosa moist Neck: Normal inspection. Neck supple. CVS: Normal heart rate and rhythm. Pulses normal. Respiratory: No respiratory distress. Equal air entry bilateral, no wheezing/rales/rhonchi Abdomen: Soft and nontender. Bowel sounds are present, no mass palpable, no CVA tenderness Skin: Skin warm and dry. Normal skin color. Normal skin turgor. Extremities: No lower extremity edema. No calf tenderness Neuro: Oriented X 3. No motor deficit. Medical Decision Making Medical Decision Making MDM Narrative: 58 years old with history of hypertension hyperlipidemia and diabetes CVA cocaine induced paranoia comes here for increasing depression and suicidal feeling will consult care team for evaluation Admission/Observation Consideration of admission/observation: Escalation of care including admission/observation considered Consult Healthcare Provider Management of the patient was discussed with: Behavioral Health Provider Lab Data MDM Lab Attestation statement: I reviewed the patient's lab results. Labs: Lab Results 09/27/24 09/27/24 Range/Units 22:26 22:28 COVID-19 (BETY) Negative (Negative) COVID-19 Clin Com See Note Influenza Type A (ARIANE) Negative (Negative) Influenza Type B (ARIANE) Negative (Negative) Influenza A & B Note See Note S. pyogenes GrpA ARIANE Negative (Negative) Discharge Plan Discharge Clinical Impression: Cocaine use disorder, MDD (major depressive disorder), recurrent episode, moderate Patient Disposition: Still a Patient Prescriptions: No Action nicotine (polacrilex) 2 mg Gum 4 mg buccal Q2H PRN (Reason: Nicotine Cravings) 30 Days Qty: 120 1RF gabapentin 400 mg Capsule 400 mg PO BID 30 Days Qty: 60 0RF aspirin 81 mg tablet,delayed release (DR/EC) 81 mg PO DAILY 30 Days Qty: 30 0RF paroxetine HCl 30 mg tablet 30 mg PO BID 30 Days Qty: 60 0RF metformin 1,000 mg tablet 1,000 mg PO BID 30 Days Qty: 60 0RF albuterol sulfate [Ventolin HFA] 90 mcg/actuation HFA aerosol inhaler 2 puff INHALATION QID PRN (Reason: wheezing) 300 Days Qty: 1 0RF rosuvastatin 10 mg tablet 10 mg PO DAILY 30 Days Qty: 30 0RF fluticasone propion-salmeterol [Advair HFA] 115-21 mcg/actuation HFA aerosol inhaler 2 puff INHALATION BID 30 Days Qty: 1 0RF Januvia 100 mg tablet 100 mg PO DAILY 30 Days Qty: 30 0RF quetiapine 150 mg tablet extended release 24 hr 150 mg PO BEDTIME 30 Days Qty: 30 0RF insulin glargine 100 unit/mL Solution 15 unit subcut BEDTIME 30 Days Qty: 15 0RF lorazepam 1 mg tablet 1 mg PO TID Print Language: Khmer
--- NOTE | 2023-11-28 07:05 | PC.NURSE ---
Assumed care of patient at 0645. At this time the patient is lying quietly in their bed. No signs of distress observed. Breathing is even and unlabored.
[2023-11-28] MEDS: Atorvastatin Calcium 40 MG TABLET PO (09:37)
[2023-11-28] MEDS: metFORMIN HCl 1,000 MG TABLET 1000 MG PO ×2 (09:37→20:45)
[2023-11-28] MEDS: LORazepam 1 MG TABLET PO ×3 (09:38→20:45)
[2023-11-28] MEDS: Gabapentin 400 MG CAPSULE PO ×2 (09:38→20:45)
[2023-11-28] MEDS: Aspirin Enteric Coated 81 MG TABLET.DR PO (09:38)
[2023-11-28] MEDS: SITagliptin Phosphate 100 MG TABLET PO (09:38)
[2023-11-28] MEDS: PARoxetine HCL 30 MG TABLET PO ×2 (09:38→20:45)
[2023-11-28] MEDS: Fluticasone/Vilanterol 100/25 BLST.W.DEV 1 PUFF INHALE (10:18)
--- NOTE | 2023-11-28 11:44 | MHC.CARE ---
Patient is assessed by the CARE team, this is his third presentation to the [facility] ED on three days. He presents as paranoid, delusional, with AH and reporting SI. He went to M3 yesterday very briefly however he asked to leave despite ongoing psychotoic sx
[2023-11-28] MEDS: polyethylene glycoL 3350 17 GM POWD.PACK PO (16:16)
--- NOTE | 2023-11-28 16:30 | MHC.CARE ---
Per David Carrizales, a psych consult is being requested to weigh in on dispo due to pt presenting to ED several times in the past few days and asking to be d/c immediately
[2023-11-28 18:40] VITALS: BP 127/71; PULSE 70; RESP 16; TEMP 36.9; O2SAT 98
[2023-11-28 20:20] VITALS: BP 123/63; PULSE 83; RESP 16; TEMP 36.1; O2SAT 99
--- NOTE | 2023-11-28 20:43 | PC.NURSE ---
MD phillips notified that pt is getting 1,000 mg of metformin and 15 units of lantus. Gave this nurse verbal order to check blood glucose was 209 when obtained. Pt received a snack with lantus.
[2023-11-28] MEDS: Insulin Glargine,Hum.rec.anlog 100 UNIT/ML 10 ML VIAL 15 UNIT SUBCUT (20:45)
[2023-11-28] MEDS: QUEtiapine Fumarate 50 MG TABLET 150 MG PO (20:45)
[2023-11-28 20:47] LABS: Glucose, Whole Blood 209 mg/dL (60-115)
[2023-11-29 06:00] VITALS: BP 145/86; PULSE 88; RESP 19; TEMP 36.7; O2SAT 98
--- NOTE | 2023-11-29 07:01 | PC.NURSE ---
Assumed care of patient at 0645. At this time the patient is observed resting quietly in bed. No signs of distress observed. Breathing is even and unlabored.
[2023-11-29 08:15] LABS: Creatinine Clr Calc Pharmacy 65.6; Estimated Glomerular Filt Rate > 60
[2023-11-29] MEDS: polyethylene glycoL 3350 17 GM POWD.PACK PO ×2 (08:31→17:13)
[2023-11-29] MEDS: PARoxetine HCL 30 MG TABLET PO ×2 (08:32→21:19)
[2023-11-29] MEDS: Fluticasone/Vilanterol 100/25 BLST.W.DEV 1 PUFF INHALE (08:32)
[2023-11-29] MEDS: Aspirin Enteric Coated 81 MG TABLET.DR PO (08:32)
[2023-11-29] MEDS: Atorvastatin Calcium 40 MG TABLET PO (08:32)
[2023-11-29] MEDS: LORazepam 1 MG TABLET PO ×3 (08:32→21:17)
[2023-11-29] MEDS: Gabapentin 400 MG CAPSULE PO ×2 (08:32→21:19)
[2023-11-29] MEDS: SITagliptin Phosphate 100 MG TABLET PO (08:32)
[2023-11-29] MEDS: metFORMIN HCl 1,000 MG TABLET 1000 MG PO ×2 (08:32→21:17)
[2023-11-29] MEDS: Nicotine Polacrilex 2 MG GUM 4 MG BUCCAL (13:40)
--- NOTE | 2023-11-29 15:04 | PHA.MEDREC ---
Pharmacy Consult ? Medication Reconciliation Pharmacy has completed the medication reconciliation. Reviewed med rec done by nursing.
[2023-11-29 17:46] VITALS: BP 146/79; PULSE 78; RESP 15; TEMP 36.7; O2SAT 98
[2023-11-29] MEDS: QUEtiapine Fumarate 50 MG TABLET 150 MG PO (21:17)
[2023-11-29] MEDS: Insulin Glargine,Hum.rec.anlog 100 UNIT/ML 10 ML VIAL 15 UNIT SUBCUT (21:20)
--- NOTE | 2023-11-29 21:28 | PM.EVENT ---
Event Note Date of Service: 11/30/23 Event Note: Patient's chart reviewed patient's case reviewed extensively with care team. Patient seen he states he can not deal with intrusive visual and auditory hallucinations feeling he is being controlled by people upstairs in his apartment. Increasing anxiety agitation in the context of multiple stressors including addiction and having a delusional preoccupation regarding his who is on psychiatric unit and he is getting visions of her and hearing voices saying that she had had an affair with someone working on the psychiatric unit. Patient can not stand how he is feeling has repeatedly come in to the emergency room not been stabilized on Paxil and Seroquel Patient is agreeable to psychiatric admission has not responded to outpatient treatment and is in severe distress denies active SI in the setting would benefit from inpatient referral this was discussed with patient and care team Will start Risperdal history of recurrent depression anxiety psychotic depression versus cocaine induced psychosis Time Spent With Patient Time: Total time managing care of this patient today ____ minutes.
--- NOTE | 2023-11-30 | ECG_ITS ---
Test Reason : CHECK QTC Blood Pressure : / mmHG Vent. Rate : 081 BPM Atrial Rate : 081 BPM P-R Int : 132 ms QRS Dur : 082 ms QT Int : 368 ms P-R-T Axes : 070 072 014 degrees QTc Int : 427 ms Normal sinus rhythm Cannot rule out Inferior infarct , age undetermined Abnormal ECG When compared with ECG of 26-NOV-2023 18:21, Inverted T waves have replaced nonspecific T wave abnormality in Inferior leads Nonspecific T wave abnormality now evident in Lateral leads QT has lengthened Referred By: Khurram Schmidt Electronically Signed By:VITO SAAVEDRA
[2023-11-30 06:34] VITALS: BP 118/67; PULSE 79; RESP 16; TEMP 36.8; O2SAT 98
[2023-11-30] MEDS: Nicotine Polacrilex 2 MG GUM 4 MG BUCCAL ×2 (07:47→19:12)
[2023-11-30] MEDS: Atorvastatin Calcium 40 MG TABLET PO (08:17)
[2023-11-30] MEDS: risperiDONE 1 MG TABLET PO ×2 (08:17→17:50)
[2023-11-30] MEDS: PARoxetine HCL 30 MG TABLET PO ×2 (08:17→22:03)
[2023-11-30] MEDS: Aspirin Enteric Coated 81 MG TABLET.DR PO (08:17)
[2023-11-30] MEDS: LORazepam 1 MG TABLET PO ×3 (08:17→22:05)
[2023-11-30] MEDS: Gabapentin 400 MG CAPSULE PO ×2 (08:17→22:04)
[2023-11-30] MEDS: Fluticasone/Vilanterol 100/25 BLST.W.DEV 1 PUFF INHALE (08:17)
[2023-11-30] MEDS: metFORMIN HCl 1,000 MG TABLET 1000 MG PO ×2 (08:18→22:03)
[2023-11-30] MEDS: SITagliptin Phosphate 100 MG TABLET PO (08:18)
[2023-11-30 08:40] LABS: Appearance Urine Clear; Color Urine Yellow; Glucose Urine UA Negative (Negative); Leukocyte Esterase Urine Negative (Negative); Nitrite Urine Negative (Negative); PH 5.5 (5.0-9.0); Specific Gravity - Urine >= 1.030 (1.005-1.025); Urine Blood Negative (Negative); Urine Ketones Trace mg/dL (Negative); Urine Protein Negative (Neg-Trace)
[2023-11-30 10:22] LABS: Amphetamine Screen Urine Not Detected (Not Detect); Barbiturates, Urine Not Detected (Not Detect); Benzodiazepines Screen Urine Not Detected (Not Detect); Buprenorphine Scr Not Detected (Not Detect); Cannabinoid Screen Urine POSITIVE (Not Detect); Cocaine Screen Urine POSITIVE (Not Detect); Fentanyl, urine Not Detected (Not Detect); Methadone Screen, Urine Not Detected (Not Detect); Opiate Screen Urine Not Detected (Not Detect); Oxycodone Screen Urine Not Detected (Not Detect); Phencyclidine Screen Urine Not Detected (Not Detect)
[2023-11-30 11:28] LABS: MANUAL DIFF FLAG NO
[2023-11-30 11:40] LABS: Basophils Percent Auto 0.5 % (0-2); Eosinophils Absolute Auto 0.1 X10*3/uL (0.0-0.4); Eosinophils Percent Auto 1.2 % (0-4); Hematocrit 41.7 % (42.0-52.0); Hemoglobin 14.4 g/dl (14.0-18.0); Imm Gran Abs Auto 0.03 X10*3/uL (0.00-0.03); Imm Gran Pct Auto 0.5 % (0.0-0.4); Lymphocytes Absolute Auto 1.5 X10*3/uL (1.2-4.9); Lymphocytes Percent Auto 24.9 % (20-40); Mean Corpuscular HGB Conc 34.5 g/dl (31.0-36.0); Mean Corpuscular Hemoglobin 29.5 pg (27.0-33.0); Mean Corpuscular Volume 85.5 fL (80.0-98.0); Mean Platelet Volume 9.7 fL (9.4-12.4); Monocytes Absolute Auto 0.6 X10*3/uL (0.1-1.2); Monocytes Percent Auto 9.1 % (2-11); Neutrophils Absolute Auto 3.9 x10*3/uL (2.0-8.3); Neutrophils Percent Auto 63.8 % (45-73); Platelet Count 220 X10*3/uL (160-400); Red Blood Count 4.88 X10*6/uL (4.60-5.80); Red Cell Distribution Width 12.7 % (11.0-16.0)
[2023-11-30 11:54] LABS: Alanine Aminotransferase 30 U/L (0-40); Albumin Level 4.2 g/dL (3.5-5.0); Alkaline Phosphatase 77 U/L (39-117); Anion Gap 13 (12-20); Aspartate Amino Transferase 23 U/L (5-37); Bilirubin Total 0.3 mg/dL (0.0-1.0); Blood Urea Nitrogen 21 mg/dL (9-16); Calcium 9.9 mg/dL (8.4-10.2); Carbon Dioxide 26 mmol/L (22-29); Chloride 103 mmol/L (96-108); Estimated Glomerular Filt Rate > 60; Glucose Random 145 mg/dL (60-115); Potassium 4.3 mmol/L (3.3-5.1); Sodium 138 mmol/L (135-145); Total Protein 7.8 g/dL (6.5-8.0)
[2023-11-30 13:16] VITALS: BMI 25.8
[2023-11-30 13:17] VITALS: BP 129/73; PULSE 78; RESP 18; TEMP 36.9; O2SAT 98
[2023-11-30] MEDS: Flu Vacc TS2024-25(6mos up)/PF 0.5 ML SYRINGE IM (15:19)
--- NOTE | 2023-11-30 16:33 | PC.ADMIT ---
Nursing admission note: 58 year old male DX: MDD recurrent moderate, Cocaine use moderate severe. Patient self presented [place] [facility] [place] for c/o nasal congestion and sore throat and reported SI. Patient had been in ED on 11/26/23 and 11/26, was admitted to [facility] although discharged shortly following. Patient engaged easily, presented with good eye contact, good attn to ADL, dressed in hospital attire. Was oriented to name, place and situation. Patient reports he experiences Silou[employer] described as a a dish, like a speaker with voices. It is weird to explain, it's a form of communication. Like an xray thing that sends waves and gives me a headache . It is banned in the [place] and [place]. It wants to kill my brain . Mood is not good , anxious, stressed, denies SI/HI plan or intent at this time. Reports he does not have psychiatric providers at this time. Recent stresses include homelessness. Denies acute medical problems, poor dentition. TOX screen positive for cocaine and THC. Patient states he would like help with the voices and stuff . See nursing assessment/crisis evaluation for further details. Patient placed on unit safety checks.
[2023-11-30 20:00] VITALS: BP 134/64; PULSE 88; RESP 14; TEMP 36.4; O2SAT 99
[2023-11-30 21:25] LABS: Glucose, Whole Blood 198 mg/dL (60-115)
[2023-11-30] MEDS: Sennosides/Docusate Sodium TABLET 1 TAB PO (22:03)
[2023-11-30] MEDS: QUEtiapine Fumarate 200 MG TABLET PO (22:04)
[2023-11-30] MEDS: Insulin Glargine,Hum.rec.anlog 100 UNIT/ML 10 ML VIAL 15 UNIT SUBCUT (22:05)
[2023-11-30] MEDS: Milk of Magnesia 30 ML ORAL.SUSP PO (22:06)
[2023-11-30] MEDS: traZODone HCL 50 MG TABLET PO (22:31)
[2023-12-01 07:20] VITALS: BP 120/58; PULSE 69; RESP 14; TEMP 36.4; O2SAT 100
[2023-12-01] MEDS: Aspirin Enteric Coated 81 MG TABLET.DR PO (08:21)
[2023-12-01] MEDS: Gabapentin 400 MG CAPSULE PO ×2 (08:21→20:48)
[2023-12-01] MEDS: risperiDONE 1 MG TABLET PO ×2 (08:21→16:58)
[2023-12-01] MEDS: PARoxetine HCL 30 MG TABLET PO ×2 (08:21→20:48)
[2023-12-01] MEDS: Atorvastatin Calcium 40 MG TABLET PO (08:21)
[2023-12-01] MEDS: SITagliptin Phosphate 100 MG TABLET PO (08:21)
[2023-12-01] MEDS: metFORMIN HCl 1,000 MG TABLET 1000 MG PO ×2 (08:21→20:48)
[2023-12-01] MEDS: LORazepam 1 MG TABLET PO ×3 (08:21→20:48)
[2023-12-01] MEDS: polyethylene glycoL 3350 17 GM POWD.PACK PO (08:23)
[2023-12-01 08:36] LABS: Glucose, Whole Blood 185 mg/dL (60-115)
[2023-12-01] MEDS: Milk of Magnesia 30 ML ORAL.SUSP PO (08:57)
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
[2023-12-01] MEDS: Nicotine Polacrilex 2 MG GUM 4 MG BUCCAL ×2 (09:47→15:15)
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
[2023-12-01] MEDS: Fluticasone/Vilanterol 100/25 BLST.W.DEV 1 PUFF INHALE (12:04)
[2023-12-01 19:30] VITALS: BP 141/58; PULSE 93; RESP 18; TEMP 37.6; O2SAT 98
[2023-12-01] MEDS: QUEtiapine Fumarate 300 MG TABLET PO (20:48)
[2023-12-01] MEDS: Insulin Glargine,Hum.rec.anlog 100 UNIT/ML 10 ML VIAL 15 UNIT SUBCUT (20:49)
[2023-12-01 21:05] LABS: Glucose, Whole Blood 241 mg/dL (60-115)
[2023-12-02 07:50] VITALS: BP 133/76; PULSE 90; RESP 16; TEMP 36.8; O2SAT 98
[2023-12-02 07:58] LABS: Glucose, Whole Blood 263 mg/dL (60-115)
[2023-12-02] MEDS: PARoxetine HCL 30 MG TABLET PO ×2 (08:03→22:27)
[2023-12-02] MEDS: LORazepam 1 MG TABLET PO ×3 (08:03→22:27)
[2023-12-02] MEDS: risperiDONE 1 MG TABLET PO ×2 (08:03→16:57)
[2023-12-02] MEDS: metFORMIN HCl 1,000 MG TABLET 1000 MG PO ×2 (08:04→22:27)
[2023-12-02] MEDS: Aspirin Enteric Coated 81 MG TABLET.DR PO (08:04)
[2023-12-02] MEDS: SITagliptin Phosphate 100 MG TABLET PO (08:04)
[2023-12-02] MEDS: Gabapentin 400 MG CAPSULE PO ×2 (08:04→22:27)
[2023-12-02] MEDS: Atorvastatin Calcium 40 MG TABLET PO (08:04)
[2023-12-02] MEDS: polyethylene glycoL 3350 17 GM POWD.PACK PO (08:05)
[2023-12-02] MEDS: Fluticasone/Vilanterol 100/25 BLST.W.DEV 1 PUFF INHALE (08:05)
--- NOTE | 2023-12-02 13:56 | P.PNPSI_ITS ---
Subjective Subjective Date of Service: 12/02/23 Reason For Visit: psychosis Interim History: calm, cooperative. voices lower and stuff. headphones make silouente go away. tired. per staff, c/o AH. attending groups. denyouente still happening, saying to him, do this, do that. slept 5 hours or so. Mental Status Exam Mental Status Exam Narrative: Pt is alert and oriented; behavior is cooperative, friendly and calm; dressed in hospital attire; mood is described as improved. eye contact appropriate; Speech is normal rate, volume and not pressured; thought process is organized; no SI/HI/VH expressed. endorses AH, but less than prior\. Diagnostics Vital Signs (24Hr): Vital Signs - 24 hr 12/01/23 19:30 12/02/23 07:50 Temperature 99.6 F 98.3 F Pulse Rate 93 90 Respiratory Rate 18 16 Blood Pressure 141/58 H 133/76 Pulse Oximetry 98 98 Oxygen Delivery Method Room Air Room Air BMI result Body Mass Index 25.8 Labs 11/30/23 11:11 11/30/23 11:11 Labs: Laboratory Results - last 48 hr 11/30/23 12/01/23 12/01/23 21:20 08:29 20:46 POC Glucose 198 H 185 H 241 H 12/02/23 07:54 POC Glucose 263 H Medications Medications Current Medications Acetaminophen (Acetaminophen 325 Mg Tablet) 650 mg PO Q6H PRN PRN Reason: Headache/Pain Mild Scale (1-3) Al Hydroxide/Mg Hydroxide (Magnesium Hydrox/Alum Hydrox 30 Ml Oral.Susp) 30 ml PO Q6H PRN PRN Reason: Heartburn/Nausea Albuterol Sulfate (Albuterol Sulfate 90 Mcg 8 Gm Inhaler) 2 puff INHALE QID PRN PRN Reason: wheezing Aspirin (Aspirin Enteric Coated 81 Mg Tablet.) 81 mg PO DAILY [facility] Last Admin: 12/02/23 08:04 Dose: 81 mg Atorvastatin Calcium (Atorvastatin Calcium 40 Mg Tablet) 40 mg PO DAILY [facility] Last Admin: 12/02/23 08:04 Dose: 40 mg Fluticasone/Vilanterol (Fluticasone/Vilanterol 100/25 Blst.W.Dev) 1 puff INHALE RDAILY [facility] Last Admin: 12/02/23 08:05 Dose: 1 puff Gabapentin (Gabapentin 400 Mg Capsule) 400 mg PO BID [facility] Last Admin: 12/02/23 08:04 Dose: 400 mg Hydroxyzine HCl (Hydroxyzine Hcl 25 Mg Tablet) 25 mg PO Q6H PRN PRN Reason: Anxiety Insulin Glargine (Insulin Glargine,Hum.Rec.Anlog 100 Unit/Ml 10 Ml Vial) 15 unit SUBCUT BEDTIME [facility] Last Admin: 12/01/23 20:49 Dose: 15 unit Lorazepam (Lorazepam 1 Mg Tablet) 1 mg PO TID [facility] Last Admin: 12/02/23 08:03 Dose: 1 mg Magnesium Hydroxide (Milk Of Magnesia 30 Ml Oral.Susp) 30 ml PO DAILY PRN PRN Reason: Constipation Last Admin: 12/01/23 08:57 Dose: 30 ml Metformin HCl (Metformin Hcl 1,000 Mg Tablet) 1,000 mg PO BID [facility] Last Admin: 12/02/23 08:04 Dose: 1,000 mg Nicotine Polacrilex (Nicotine Polacrilex 2 Mg Gum) 4 mg BUCCAL Q2H PRN PRN Reason: Nicotine Cravings Last Admin: 12/01/23 15:15 Dose: 4 mg Nicotine Polacrilex (Nicotine Polacrilex 2 Mg Gum) 4 mg BUCCAL Q2H PRN PRN Reason: Nicotine Cravings Paroxetine HCl (Paroxetine Hcl 30 Mg Tablet) 30 mg PO BID [facility] Last Admin: 12/02/23 08:03 Dose: 30 mg Polyethylene Glycol (Polyethylene Glycol 3350 17 Gm Powd.Pack) 17 gm PO DAILY [facility] Stop: 12/02/23 15:32 Last Admin: 12/02/23 08:05 Dose: 17 gm Quetiapine Fumarate (Quetiapine Fumarate 300 Mg Tablet) 300 mg PO BEDTIME [facility] Last Admin: 12/01/23 20:48 Dose: 300 mg Quetiapine Fumarate (Quetiapine Fumarate 100 Mg Tablet) 100 mg PO BEDTIME PRN PRN Reason: insomnia Risperidone (Risperidone 1 Mg Tablet) 1 mg PO BID@0800,1700 [facility] Last Admin: 12/02/23 08:03 Dose: 1 mg Senna/Docusate Sodium (Sennosides/Docusate Sodium Tablet) 1 tab PO BID PRN PRN Reason: Constipation Last Admin: 11/30/23 22:03 Dose: 1 tab Sitagliptin Phosphate (Sitagliptin Phosphate 100 Mg Tablet) 100 mg PO DAILY [facility] Last Admin: 12/02/23 08:04 Dose: 100 mg Allergies Allergies Allergy/AdvReac Type Severity Reaction Status Date / Time glipizide [GLIPIZIDE] Allergy Intermediate ITCHY Verified 11/27/23 22:16 oxycodone [From TYLOX] AdvReac Intermediate CHEST PAINS Verified 11/27/23 22:16 Assessment & Plan Assessment & Plan (1) Homeless single person: Status: Acute Code(s): Z59.00 - Homelessness unspecified (2) Substance-induced psychotic disorder: Status: Acute Code(s): F19.959 - Other psychoactive substance use, unspecified with psychoactive substance-induced psychotic disorder, unspecified (3) MDD (major depressive disorder), recurrent episode, moderate: Status: Acute Code(s): F33.1 - Major depressive disorder, recurrent, moderate (4) Cocaine use disorder: Status: Acute Code(s): F14.10 - Cocaine abuse, uncomplicated Plan due to pt's h/o cocaine-use related psychosis, will treat psychotic Sx, detox from cocaine, and observe for short-term gains. 11/30: increase seroquel to 300 mg at HS for AH and sleep. add seroquel 100 mg QHS PRN for insomnia. D/C trazodone as superseded by seroquel. assess aftercare needs. 12/01: continue current mgmt. AH improved. Reason for continued inpatient stay Substantial Risk for: inability to function and rapid decompensation Time Spent With Patient Time: Total time managing care of this patient today _25___ minutes.
[2023-12-02 20:53] LABS: Glucose, Whole Blood 364 mg/dL (60-115)
[2023-12-02 20:55] VITALS: BP 136/61; PULSE 80; RESP 18; TEMP 36.6; O2SAT 98
[2023-12-02] MEDS: Insulin Glargine,Hum.rec.anlog 100 UNIT/ML 10 ML VIAL 15 UNIT SUBCUT (22:25)
[2023-12-02] MEDS: QUEtiapine Fumarate 300 MG TABLET PO (22:27)
[2023-12-03] MEDS: Magnesium Hydrox/Alum Hydrox 30 ML ORAL.SUSP PO ×2 (03:17→09:20)
[2023-12-03 07:15] VITALS: BP 127/61; PULSE 91; RESP 14; TEMP 36.6; O2SAT 97
[2023-12-03] MEDS: LORazepam 1 MG TABLET PO ×3 (08:14→22:13)
[2023-12-03] MEDS: risperiDONE 1 MG TABLET PO ×2 (08:15→16:11)
[2023-12-03] MEDS: metFORMIN HCl 1,000 MG TABLET 1000 MG PO ×2 (08:15→22:13)
[2023-12-03] MEDS: Aspirin Enteric Coated 81 MG TABLET.DR PO (08:15)
[2023-12-03] MEDS: Gabapentin 400 MG CAPSULE PO ×2 (08:15→22:12)
[2023-12-03] MEDS: SITagliptin Phosphate 100 MG TABLET PO (08:15)
[2023-12-03] MEDS: Fluticasone/Vilanterol 100/25 BLST.W.DEV 1 PUFF INHALE (08:15)
[2023-12-03] MEDS: Atorvastatin Calcium 40 MG TABLET PO (08:15)
[2023-12-03] MEDS: PARoxetine HCL 30 MG TABLET PO ×2 (08:15→22:13)
[2023-12-03 08:56] LABS: Glucose, Whole Blood 269 mg/dL (60-115)
[2023-12-03 12:46] VITALS: BMI 27.5
[2023-12-03] MEDS: Omeprazole 20 MG CAPSULE.DR PO (13:42)
[2023-12-03 20:25] VITALS: BP 148/75; PULSE 85; RESP 14; TEMP 36.6; O2SAT 100
[2023-12-03 20:50] LABS: Glucose, Whole Blood 185 mg/dL (60-115)
[2023-12-03] MEDS: Insulin Glargine,Hum.rec.anlog 100 UNIT/ML 10 ML VIAL 15 UNIT SUBCUT (22:12)
[2023-12-03] MEDS: QUEtiapine Fumarate 300 MG TABLET PO (22:13)
[2023-12-04] MEDS: Omeprazole 20 MG CAPSULE.DR PO (05:53)
[2023-12-04 08:00] VITALS: BP 119/79; PULSE 84; RESP 14; TEMP 36.5; O2SAT 97
[2023-12-04] MEDS: Gabapentin 400 MG CAPSULE PO (08:10)
[2023-12-04] MEDS: risperiDONE 1 MG TABLET PO (08:10)
[2023-12-04] MEDS: Atorvastatin Calcium 40 MG TABLET PO (08:10)
[2023-12-04] MEDS: Aspirin Enteric Coated 81 MG TABLET.DR PO (08:10)
[2023-12-04] MEDS: Fluticasone/Vilanterol 100/25 BLST.W.DEV 1 PUFF INHALE (08:10)
[2023-12-04] MEDS: LORazepam 1 MG TABLET PO (08:11)
[2023-12-04] MEDS: PARoxetine HCL 30 MG TABLET PO (08:11)
[2023-12-04] MEDS: SITagliptin Phosphate 100 MG TABLET PO (08:11)
[2023-12-04] MEDS: metFORMIN HCl 1,000 MG TABLET 1000 MG PO (08:15)
[2023-12-04 08:47] LABS: Glucose, Whole Blood 382 mg/dL (60-115)
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
[2023-12-04] MEDS: Insulin Lispro 100 UNIT/ML 3 ML VIAL 10 UNIT SUBCUT (10:21)
[2023-12-04 10:55] LABS: Glucose, Whole Blood 389 mg/dL (60-115)
[2023-12-04 11:46] LABS: Glucose, Whole Blood 347 mg/dL (60-115)
== END 2023-12-04 11:52 | disposition home or self-care (01) | DRG 897 ==
LOC: HO.ED 11-28 07:16 → HO.PADLT16 11-30 12:19
PROVIDERS: Emergency Medicine; Internal Medicine; Admitting Provider Psychiatry & Neurology Psychiatry; Emergency Provider Emergency Medicine Emergency Medical Services; Visit Provider Psychiatry & Neurology Psychiatry
DX: F14.150 Cocaine abuse with cocaine-induced psychotic disorder with delusions (principal); Z59.02 Unsheltered homelessness; F33.1 Major depressive disorder, recurrent, moderate; F17.210 Nicotine dependence, cigarettes, uncomplicated; Z20.822 Contact with and (suspected) exposure to COVID-19; Z23 Encounter for immunization; Z71.6 Tobacco abuse counseling; Z62.810 Personal history of physical and sexual abuse in childhood; Z79.4 Long term (current) use of insulin; Z79.82 Long term (current) use of aspirin; Z79.84 Long term (current) use of oral hypoglycemic drugs; Z79.899 Other long term (current) drug therapy
CPT/HCPCS: 36415; 80053; 80307; 81003; 82565; 82947; 85025; 87502; 87635; 87651; 90656; 93005; 99285; S9485

== ENCOUNTER → 2023-11-30 12:06 | Outpatient (BNV) | payer MEDICARE, MEDICAID, SELFPAY | PROVIDERS: Admitting Provider Psychiatry & Neurology Psychiatry; Emergency Provider Emergency Medicine Emergency Medical Services; Visit Provider Psychiatry & Neurology Psychiatry | DX: F33.1 Major depressive disorder, recurrent, moderate (principal); F14.10 Cocaine abuse, uncomplicated; F19.959 Other psychoactive substance use, unspecified with psychoactive substance-induced psychotic disorder, unspecified; Z59.00 Homelessness unspecified | CPT/HCPCS: 90792; 99231; 99239 ==

== ENCOUNTER 2023-12-08 22:14 | Emergency (ER) | payer MEDICARE, MEDICAID, SELFPAY ==
--- NOTE | ~2023-12-08 | XR_ITS ---
EXAMINATION: XR ANKLE, RIGHT XR FOOT, RIGHT CLINICAL INFORMATION: Thank you pain. COMPARISON: None available. TECHNIQUE: 3 views of the right ankle (AP, lateral, and oblique views). 3 views of the right foot (AP, lateral, and oblique views). FINDINGS: Right Ankle: No fracture or dislocation of the right ankle. The ankle mortise is intact. No lytic or sclerotic osseous lesions. No focal soft tissue swelling. No radiopaque foreign bodies. Right Foot: No fracture or dislocation of the right foot. The joint spaces are well-preserved. No lytic or sclerotic osseous lesions. Mild edema along the dorsal aspect of the midfoot. No radiopaque foreign bodies. XR/XR foot RT min 3V IMPRESSION: 1. No evidence of acute fracture or dislocation of the right ankle or foot. 2. Mild edema along the dorsal aspect of the midfoot. Electronically signed by: Jamal Sanchez DO 12/09/2023 01:21 AM EDT
--- NOTE | ~2023-12-08 | XR_ITS ---
EXAMINATION: XR ANKLE, RIGHT XR FOOT, RIGHT CLINICAL INFORMATION: Thank you pain. COMPARISON: None available. TECHNIQUE: 3 views of the right ankle (AP, lateral, and oblique views). 3 views of the right foot (AP, lateral, and oblique views). FINDINGS: Right Ankle: No fracture or dislocation of the right ankle. The ankle mortise is intact. No lytic or sclerotic osseous lesions. No focal soft tissue swelling. No radiopaque foreign bodies. Right Foot: No fracture or dislocation of the right foot. The joint spaces are well-preserved. No lytic or sclerotic osseous lesions. Mild edema along the dorsal aspect of the midfoot. No radiopaque foreign bodies. XR/XR ankle RT min 3V IMPRESSION: 1. No evidence of acute fracture or dislocation of the right ankle or foot. 2. Mild edema along the dorsal aspect of the midfoot. Electronically signed by: Jamal Sanchez DO 12/09/2023 01:21 AM EDT
[2023-12-08 22:19] VITALS: BP 145/83; PULSE 73; O2SAT 99
[2023-12-08 22:31] VITALS: BP 129/60; PULSE 72; RESP 18; TEMP 36.6; O2SAT 98; BMI 28.8
[2023-12-08 23:26] VITALS: BP 139/73; PULSE 64; RESP 18; TEMP 36.9; O2SAT 98
--- NOTE | 2023-12-09 00:05 | ED.LOWEXIN ---
HPI - Extremity Injury (Lower) General Chief Complaint: Extremity Injury, Lower Stated Complaint: r foot pain x 2days Time Seen by Provider: 12/08/23 23:52 Source: patient and EMS Mode of arrival: EMS Limitations: no limitations History of Present Illness ED Provider: Dr. Taylor Church HPI Narrative: Patient comes to the emergency room via ambulance complaining of foot pain. Patient states that 2 weeks ago he sprained his ankle, stepped off a curb. Patient states that over last 2 weeks the pain has gradually been getting worse. Patient states that he used to drive everywhere and did not need to walk as much. However, he got evicted, lost his car and now the patient is to walk everywhere which worsened the pain in the foot. Related Data Home Medications ?Medication ?Instructions ?Recorded ?Confirmed lorazepam 1 mg tablet 1 mg PO TID 06/25/23 11/28/23 omeprazole 20 mg capsule,delayed 20 mg PO BEDTIME 11/29/23 11/29/23 release Previous Rx's ?Medication ?Instructions ?Recorded albuterol sulfate 90 mcg/actuation 2 puff inhalation QID PRN wheezing 09/21/23 aerosol inhaler (Ventolin HFA) 300 days #1 inhaler aspirin 81 mg tablet,delayed 81 mg PO DAILY 30 days #30 tabs 09/21/23 release fluticasone propionate 115 2 puff inhalation BID 30 days #1 09/21/23 mcg-salmeterol 21 mcg/actuation inhaler HFA inhaler (Advair HFA) gabapentin 400 mg capsule 400 mg PO BID 30 days #60 caps 09/21/23 insulin glargine 100 unit/mL 15 unit (0.15 mL) subcut BEDTIME 09/21/23 subcutaneous solution 30 days #15 mL metformin 1,000 mg tablet 1,000 mg PO BID 30 days #60 tabs 09/21/23 nicotine (polacrilex) 2 mg gum 4 mg buccal Q2H PRN Nicotine 09/21/23 Cravings 30 days #120 ea paroxetine HCl 30 mg tablet 30 mg PO BID 30 days #60 tabs 09/21/23 rosuvastatin 10 mg tablet 10 mg PO DAILY 30 days #30 tabs 09/21/23 sitagliptin phosphate 100 mg 100 mg PO DAILY 30 days #30 tabs 09/21/23 tablet (Januvia) quetiapine 300 mg tablet 300 mg PO BEDTIME 30 days #30 tabs 12/03/23 risperidone 1 mg tablet 1 mg PO BID@0800,1700 30 days #60 12/03/23 tabs ibuprofen 600 mg tablet 600 mg PO Q8H PRN fever or pain 12/09/23 #20 tabs Allergies Allergy/AdvReac Type Severity Reaction Status Date / Time glipizide [GLIPIZIDE] Allergy Intermediate ITCHY Verified 12/08/23 22:33 oxycodone [From TYLOX] AdvReac Intermediate CHEST PAINS Verified 12/08/23 22:33 Review of Systems Review of Systems: Constitutional : No Weight loss, No Fever, No Chills, No Night Sweats, No Fatigue, No Malaise ENT/Mouth : No Hearing loss, No Ear Pain, No Nasal Congestion, No Sinus Pain, No Hoarseness, No sore throat, No Rhinorrhea, No Swallowing Difficulty Eyes: No Eye Pain, No Swelling, No Redness, No Foreign Body, No Discharge, No Vision Changes Cardiovascular : No Chest Pain, No SOB, No Dyspnea on Exertion, No Orthopnea, No Edema, No Palpitations Respiratory : No Cough, No Sputum, No Wheezing, No Smoke Exposure, No Dyspnea Gastrointestinal : No Nausea, No Vomiting, No Diarrhea, No Constipation, No abdominal Pain, No Hematochezia, No Melena Genitourinary : no irregular bleeding, No Dysuria, No Urinary Frequency, No Hematuria, No Urinary Incontinence, No Urgency, No Flank Pain, No Urinary Flow Changes, No Hesitancy Musculoskeletal : Complaining of right foot pain No Myalgias, No Joint Swelling Skin : No Skin Lesions, No rash Neuro : No Weakness, No Numbness, No Paresthesias, No Loss of Consciousness, No Dizziness, No Headache Psych : No Anxiety/Panic, No Depression, No SI/HI/AH/VH, No Social Issues, Heme/Lymph: No Bruising, No Bleeding,No Lymphadenopathy Endocrine : No Polyuria, No Polydipsia, No Temperature Intolerance [facility] Past Medical History Medical History Anxiety Diabetes Social History Social History Household Members: None Housing: Homeless Do you presently have visiting nurse or other home services: No Unable to assess alcohol history related to: Unknown Alcohol intake: current Alcohol intake frequency: a few times a month Alcohol type: beer Patient Tobacco Use Status: Current everyday Tobacco user Tobacco use type: Cigarette Cigarette Packs Per Day: 1 Cigarettes Per Day: 20.0 Years Smoked: 40 e-Cigarette/Vaping Use: Former Use Second Hand Smoke Exposure: Yes Substance Use Type: Crack/Cocaine, Prescription Drugs and Caffiene Advance Directives: Yes Advance Directives on File: Yes Advance Directives Date on File: 10/04/21 Do you have a plan to hurt others: No Plan service: No Sexual orientation: Straight/Heterosexual Physical Exam Vital Signs: Vital Signs: Last Vital Signs Temp 98.4 F 12/08/23 23:26 Pulse 64 12/08/23 23:26 Resp 18 12/08/23 23:26 BP 139/73 12/08/23 23:26 Pulse Ox 98 12/08/23 23:26 O2 Del Method Room Air 12/08/23 23:26 BMI result Body Mass Index 28.8 Const: Other: Appearance: Alert. Oriented X3. No acute distress. Eyes: Pupils equal, round and reactive to light. ENT: Pharynx normal. Neck: Normal inspection. Neck supple. No lymph nodes noted. No crepitus CVS: Normal heart rate and rhythm. Pulses normal. Normal S1 and S2 Respiratory: No respiratory distress. Breath sounds normal. No Wheezing. No rales Abdomen: Soft and nontender. No rigidity. No distention. Skin: Skin warm and dry. Normal skin color. Normal skin turgor. Extremities: No lower extremity edema. No Lacerations. No Rash. There is no swelling on the right foot. Pain to palpation over the lateral aspect of the foot. There is no swelling over the lateral or medial malleolus Neuro: Oriented X 3. No motor deficit. No sensory deficit. Moving all extremities. No slurred speech. CN 2 through 12 grossly intact Psych: calm, cooperative, normal affect Medical Decision Making Medical Decision Making MDM Narrative: My interpretation a foot x-ray and ankle x-ray, no obvious abnormality Patient requesting crutches Differential Diagnosis Differential Diagnoses: The differential diagnosis associated with the presentation includes (Foot contusion, dislocation, fracture) Independent Interpretation I performed an independent interpretation of an: Plain X-Ray Radiology Impression Discussion of test interpretation with radiology: I have reviewed the radiologist's reading. Radiologist Impression: Right Ankle: No fracture or dislocation of the right ankle. The ankle mortise is intact. No lytic or sclerotic osseous lesions. No focal soft tissue swelling. No radiopaque foreign bodies. Right Foot: No fracture or dislocation of the right foot. The joint spaces are well-preserved. No lytic or sclerotic osseous lesions. Mild edema along the dorsal aspect of the midfoot. No radiopaque foreign bodies. XR/XR foot RT min 3V IMPRESSION: 1. No evidence of acute fracture or dislocation of the right ankle or foot. 2. Mild edema along the dorsal aspect of the midfoot. Discharge Plan Discharge Clinical Impression: Foot pain Patient Disposition: Home, Self-Care Instructions: Arthralgia (ED) Additional Instructions: Please follow-up with your primary care physician tomorrow. If you have any worsening or new symptoms, please return to the emergency room or call 911 Prescriptions: New ibuprofen 600 mg tablet 600 mg PO Q8H PRN (Reason: fever or pain) Qty: 20 0RF No Action nicotine (polacrilex) 2 mg Gum 4 mg buccal Q2H PRN (Reason: Nicotine Cravings) 30 Days Qty: 120 1RF gabapentin 400 mg Capsule 400 mg PO BID 30 Days Qty: 60 0RF aspirin 81 mg tablet,delayed release (DR/EC) 81 mg PO DAILY 30 Days Qty: 30 0RF paroxetine HCl 30 mg tablet 30 mg PO BID 30 Days Qty: 60 0RF metformin 1,000 mg tablet 1,000 mg PO BID 30 Days Qty: 60 0RF albuterol sulfate [Ventolin HFA] 90 mcg/actuation HFA aerosol inhaler 2 puff INHALATION QID PRN (Reason: wheezing) 300 Days Qty: 1 0RF rosuvastatin 10 mg tablet 10 mg PO DAILY 30 Days Qty: 30 0RF fluticasone propion-salmeterol [Advair HFA] 115-21 mcg/actuation HFA aerosol inhaler 2 puff INHALATION BID 30 Days Qty: 1 0RF Januvia 100 mg tablet 100 mg PO DAILY 30 Days Qty: 30 0RF insulin glargine 100 unit/mL Solution 15 unit subcut BEDTIME 30 Days Qty: 15 0RF omeprazole 20 mg capsule,delayed release(DR/EC) 20 mg PO BEDTIME quetiapine 300 mg Tablet 300 mg PO BEDTIME 30 Days Qty: 30 0RF risperidone 1 mg Tablet 1 mg PO BID@0800,1700 30 Days Qty: 60 0RF lorazepam 1 mg tablet 1 mg PO TID Print Language: Nicaraguan
[2023-12-09 02:02] VITALS: BP 139/73; PULSE 64; RESP 18; TEMP 36.9; O2SAT 98
== END 2023-12-09 02:03 | disposition home or self-care (01) ==
PROVIDERS: Emergency Provider Emergency Medicine; PCP Internal Medicine
DX: M79.671 Pain in right foot (principal)
CPT/HCPCS: 73610; 73630; 99283; 99284

== ENCOUNTER 2023-12-15 17:01 | Emergency (ER) | payer MEDICARE, MEDICAID, SELFPAY ==
--- NOTE | ~2023-12-15 | XR_ITS ---
EXAMINATION: RADIOGRAPH RIGHT ANKLE AND RIGHT FOOT CLINICAL INDICATION: Pain. COMPARISON: Radiograph right ankle and right foot 12/08/2023. TECHNIQUE: 2 views of the right ankle and 3 views of the right foot. FINDINGS: No acute fracture or dislocation. No significant soft tissue abnormality. No unexpected radiopaque foreign bodies. XR/XR ankle RT min 3V IMPRESSION: Normal radiographic examination of the right ankle and right foot. Electronically signed by: Vale Bertrand MD 12/15/2023 09:03 PM EDT
--- NOTE | ~2023-12-15 | XR_ITS ---
EXAMINATION: RADIOGRAPH RIGHT ANKLE AND RIGHT FOOT CLINICAL INDICATION: Pain. COMPARISON: Radiograph right ankle and right foot 12/08/2023. TECHNIQUE: 2 views of the right ankle and 3 views of the right foot. FINDINGS: No acute fracture or dislocation. No significant soft tissue abnormality. No unexpected radiopaque foreign bodies. XR/XR foot RT min 3V IMPRESSION: Normal radiographic examination of the right ankle and right foot. Electronically signed by: Vale Bertrand MD 12/15/2023 09:03 PM EDT
--- NOTE | 2023-12-15 18:30 | ED_ITS ---
HPI - Extremity Injury (Lower) General Chief Complaint: Psychiatric Symptoms Stated Complaint: Foot pain Time Seen by Provider: 12/15/23 22:01 Source: patient and old records reviewed Mode of arrival: ambulatory Limitations: no limitations History of Present Illness ED Provider: IMCHAEL ONTIVEROS Narrative: 58 yo male with PMH of DM, mental health ds, substance abuse here with c/o rolling R ankle again after initial injury 2 weeks ago. He denies falls or any other injuries. He notes he is here for aircast. In triage he then notes he has SI. He is not taking his medications. He plans to cut himself. Did get his COVID shot today complaint: ankle injury Onset (ago): day(s) (2) Injury: Right: ankle Type of Injury: inversion Place: street/outdoors Severity: moderate Relieving factors: immobilization Exacerbating factors: weight bearing, movement and palpation Context: walking Associated symptoms: swelling Other symptoms: none Related Data Home Medications ?Medication ?Instructions ?Recorded ?Confirmed lorazepam 1 mg tablet 1 mg PO TID 06/25/23 11/28/23 omeprazole 20 mg capsule,delayed 20 mg PO BEDTIME 11/29/23 11/29/23 release Previous Rx's ?Medication ?Instructions ?Recorded albuterol sulfate 90 mcg/actuation 2 puff inhalation QID PRN wheezing 09/21/23 aerosol inhaler (Ventolin HFA) 300 days #1 inhaler aspirin 81 mg tablet,delayed 81 mg PO DAILY 30 days #30 tabs 09/21/23 release fluticasone propionate 115 2 puff inhalation BID 30 days #1 09/21/23 mcg-salmeterol 21 mcg/actuation inhaler HFA inhaler (Advair HFA) gabapentin 400 mg capsule 400 mg PO BID 30 days #60 caps 09/21/23 insulin glargine 100 unit/mL 15 unit (0.15 mL) subcut BEDTIME 09/21/23 subcutaneous solution 30 days #15 mL metformin 1,000 mg tablet 1,000 mg PO BID 30 days #60 tabs 09/21/23 nicotine (polacrilex) 2 mg gum 4 mg buccal Q2H PRN Nicotine 09/21/23 Cravings 30 days #120 ea paroxetine HCl 30 mg tablet 30 mg PO BID 30 days #60 tabs 09/21/23 rosuvastatin 10 mg tablet 10 mg PO DAILY 30 days #30 tabs 09/21/23 sitagliptin phosphate 100 mg 100 mg PO DAILY 30 days #30 tabs 09/21/23 tablet (Januvia) quetiapine 300 mg tablet 300 mg PO BEDTIME 30 days #30 tabs 12/03/23 risperidone 1 mg tablet 1 mg PO BID@0800,1700 30 days #60 12/03/23 tabs ibuprofen 600 mg tablet 600 mg PO Q8H PRN fever or pain 12/09/23 #20 tabs Allergies Allergy/AdvReac Type Severity Reaction Status Date / Time glipizide [GLIPIZIDE] Allergy Intermediate ITCHY Verified 12/15/23 18:34 oxycodone [From TYLOX] AdvReac Intermediate CHEST PAINS Verified 12/15/23 18:34 Review of Systems 2 Review of Systems: Constitutional : No Fever, No Chills ENT/Mouth : No Ear Pain, No Nasal Congestion, No sore throat Eyes: No Eye Pain, No Swelling, No Redness Cardiovascular : No Chest Pain, No SOB Respiratory : No Cough, No Sputum, No Dyspnea Gastrointestinal : No Nausea, No Vomiting, No Diarrhea, No Hematochezia, No Melena Genitourinary : No Dysuria, No Urinary Frequency, No Hematuria Musculoskeletal : No Myalgias, pos joint pain Skin : No Skin Lesions, No rash Neuro : No Weakness, No Numbness, No Paresthesias, No Dizziness, No Headache Psych : positive Anxiety, positive Depression, positive SI no HI Heme/Lymph: No Lymphadenopathy Endocrine : No Polyuria, No Polydipsia All other systems reviewed and are negative [facility] Past Medical History Attestation statement: The following information was validated with the patient. Source: old records reviewed Medical History Anxiety Diabetes Social History Social History Household Members: None Housing: Homeless Do you presently have visiting nurse or other home services: No Unable to assess alcohol history related to: Unknown Alcohol intake: current Alcohol intake frequency: a few times a month Alcohol type: beer Patient Tobacco Use Status: Current everyday Tobacco user Tobacco use type: Cigarette Cigarette Packs Per Day: 1 Cigarettes Per Day: 20.0 Years Smoked: 40 e-Cigarette/Vaping Use: Former Use Second Hand Smoke Exposure: Yes Substance Use Type: Crack/Cocaine, Prescription Drugs and Caffiene Advance Directives: Yes Advance Directives on File: Yes Advance Directives Date on File: 10/04/21 service: No Sexual orientation: Straight/Heterosexual Physical Exam 2 Vital Signs: Vital Signs: Last Vital Signs Temp 98.3 F 12/16/23 06:15 Pulse 73 12/16/23 06:15 Resp 16 12/16/23 06:15 BP 125/63 12/16/23 06:15 Pulse Ox 98 12/16/23 06:15 O2 Del Method Room Air 12/16/23 06:15 BMI result Body Mass Index 26.3 Appearance: Alert. Oriented X3. No acute distress. Eyes: Pupils equal, round and reactive to light. ENT: Pharynx normal. Neck: Normal inspection. Neck supple. CVS: Normal heart rate and rhythm. Pulses normal. Respiratory: No respiratory distress. Breath sounds normal. Abdomen: Soft and nontender. Skin: Skin warm and dry. Normal skin color. Normal skin turgor. Extremities: No lower extremity edema. No calf ttp R top of foot mild swelling pulses intact, able to ambulate Neuro: Oriented X 3. No motor deficit. No sensory deficit. CN2-12 intact Course Course Course Narrative: This is an RME: Additional HPI, ROS, PE not included below will be deferred to primary provider. RME assessment and note performed by: Amalia Armijo PA-C This is a [id number]-male, with a past medical history of diabetes, who presents to the ER with a complaints of right ankle and foot pain status post inversion injury which occurred while walking today. Patient has tenderness palpation along the medial malleolus as well as the 5th metatarsal. Strong DP pulse. No obvious bony deformity or swelling. Plan: X-ray right ankle and foot Reevaluation(s) Reevaluation #1: 12/16/23--08:05--physician observation continued. Vital signs stable. Labs reviewed. Imaging reviewed. pending CARE team evaluated Reevaluation #2: Seen by crisis cleared for disharge no SI at this time Medical Decision Making Medical Decision Making MDM Narrative: 58 yo male with PMH of DM, mental health ds, substance abuse here with c/o R ankle pain after rolling it - no signs of decreased pulses or infection on initial exam - xrays are negative he then c/o SI at this time labs and CARE team consult ordered. Aircast ordered. Differential Diagnosis Differential Diagnoses: The differential diagnosis associated with the presentation includes strain , sprain, SI, depression Admission/Observation Consideration of admission/observation: Escalation of care including admission/observation considered physician observation started at 1005pm pending CARE team Consult Healthcare Provider Management of the patient was discussed with: Behavioral Health Provider Lab Data [facility] Lab Attestation statement: I reviewed the patient's lab results. 12/16/23 00:59 12/16/23 00:59 Labs: Lab Results 12/16/23 12/16/23 Range/Units 00:59 06:10 WBC 8.5 (4.8-10.8) X10*3/uL RBC 4.49 L (4.60-5.80) X10*6/uL Hgb 13.2 L (14.0-18.0) g/dl Hct 38.1 L (42.0-52.0) % MCV 84.9 (80.0-98.0) fL MCH 29.4 (27.0-33.0) pg MCHC 34.6 (31.0-36.0) g/dl RDW 12.7 (11.0-16.0) % Plt Count 231 (160-400) X10*3/uL MPV 9.2 L (9.4-12.4) fL Immature Gran % (Auto) 0.2 (0.0-0.4) % Neut % (Auto) 65.9 (45-73) % Lymph % (Auto) 22.4 (20-40) % [place] % (Auto) 9.8 (2-11) % Eos % (Auto) 1.3 (0-4) % Baso % (Auto) 0.4 (0-2) % Lymph # (Auto) 1.9 (1.2-4.9) X10*3/uL [place] # (Auto) 0.8 (0.1-1.2) X10*3/uL Eos # (Auto) 0.1 (0.0-0.4) X10*3/uL Baso # (Auto) 0.0 (0.0-0.2) X10*3/uL Abs Immat Gran (auto) 0.02 (0.00-0.03) X10*3/uL Absolute Neuts (auto) 5.6 (2.0-8.3) x10*3/uL Absolute Nucleated RBC 0.000 (0.0-0.012) X10*3/uL Nucleated RBC % (auto) 0.0 (0.0-0.2) /100WBC Sodium 140 (135-145) mmol/L Potassium 4.0 (3.3-5.1) mmol/L Chloride 104 (96-108) mmol/L Carbon Dioxide 27 (22-29) mmol/L Anion Gap 13 (12-20) BUN 16 (9-16) mg/dL Creatinine 1.02 (0.5-1.4) mg/dL Estim Creat Clear Calc 74.7 Estimated GFR > 60 Random Glucose 149 H (60-115) mg/dL Calcium 9.5 (8.4-10.2) mg/dL Total Bilirubin 0.3 (0.0-1.0) mg/dL Direct Bilirubin 0.1 (0.0-0.5) mg/dL AST 19 (5-37) U/L ALT 22 (0-40) U/L Alkaline Phosphatase 83 (39-117) U/L Total Protein 6.9 (6.5-8.0) g/dL Albumin 3.7 (3.5-5.0) g/dL Urine Opiates Screen Not Detected (Not Detect) Ur Buprenorphine Scrn Not Detected (Not Detect) ng/mL Ur Oxycodone Screen Not Detected (Not Detect) ng/mL Urine Methadone Screen Not Detected (Not Detect) ng/mL Urine Fentanyl Screen Not Detected (Not Detect) Ur Barbiturates Screen Not Detected (Not Detect) Ur Phencyclidine Scrn Not Detected (Not Detect) Ur Amphetamines Screen Not Detected (Not Detect) U Benzodiazepines Scrn Not Detected (Not Detect) Urine Cocaine Screen POSITIVE H (Not Detect) U Marijuana (THC) Screen Not Detected (Not Detect) Ethyl Alcohol < 10 mg/dL Independent Interpretation I performed an independent interpretation of an: Plain X-Ray (no fracture) Radiology Impression Discussion of test interpretation with radiology: I have reviewed the radiologist's reading. External Record Review External record reviewed: Inpatient record Social Determinants Patient?s care significantly limited by Social Determinants of Health including: Problems related to primary support group Procedures Orthopedic Splinting/Casting Injury #1: Side: right Lower Extremity Injury Location: ankle Lower Extremity Immobilizer: AirCast Discharge Plan Discharge Clinical Impression: Ankle sprain and strain, MDD (major depressive disorder), recurrent episode, moderate Patient Disposition: Home, Self-Care Instructions: Depression (ED) Prescriptions: No Action nicotine (polacrilex) 2 mg Gum 4 mg buccal Q2H PRN (Reason: Nicotine Cravings) 30 Days Qty: 120 1RF gabapentin 400 mg Capsule 400 mg PO BID 30 Days Qty: 60 0RF aspirin 81 mg tablet,delayed release (DR/EC) 81 mg PO DAILY 30 Days Qty: 30 0RF paroxetine HCl 30 mg tablet 30 mg PO BID 30 Days Qty: 60 0RF metformin 1,000 mg tablet 1,000 mg PO BID 30 Days Qty: 60 0RF albuterol sulfate [Ventolin HFA] 90 mcg/actuation HFA aerosol inhaler 2 puff INHALATION QID PRN (Reason: wheezing) 300 Days Qty: 1 0RF rosuvastatin 10 mg tablet 10 mg PO DAILY 30 Days Qty: 30 0RF fluticasone propion-salmeterol [Advair HFA] 115-21 mcg/actuation HFA aerosol inhaler 2 puff INHALATION BID 30 Days Qty: 1 0RF Januvia 100 mg tablet 100 mg PO DAILY 30 Days Qty: 30 0RF insulin glargine 100 unit/mL Solution 15 unit subcut BEDTIME 30 Days Qty: 15 0RF omeprazole 20 mg capsule,delayed release(DR/EC) 20 mg PO BEDTIME quetiapine 300 mg Tablet 300 mg PO BEDTIME 30 Days Qty: 30 0RF risperidone 1 mg Tablet 1 mg PO BID@0800,1700 30 Days Qty: 60 0RF ibuprofen 600 mg tablet 600 mg PO Q8H PRN (Reason: fever or pain) Qty: 20 0RF lorazepam 1 mg tablet 1 mg PO TID Interventions: [place]-Suicide Risk Severity Scale Last Done: 12/16/23 00:00 Print Language: Hebrew
[2023-12-15 18:33] VITALS: BP 90/60; PULSE 89; RESP 18; TEMP 36.6; O2SAT 97; BMI 26.3
[2023-12-15 22:04] VITALS: BP 137/71; PULSE 81; RESP 18; TEMP 36.8; O2SAT 99
--- OUTSIDE RECORDS SUMMARY | 2023-12-15 23:05 | XMS_ITS | Continuity of Care Document ---
Author Organization [facility] Adult Address [address] [place] [address]- Care Team Providers Care Feed Mixer Helper Name Role Phone Shivani IBARRA, [facility] Primary Care Physician Encounter [facility] Date(s): 08/03/23 - 09/02/23 [facility] [address] [place] [id number]- Allergies, Adverse Reactions, Alerts Substance Reaction Severity [...] 13-valent vaccine 5 09/14/16 Recorded 1Result Comment: [facility] [id number] 2Result Comment: [facility] [id number] 3Result Comment: [facility] [id number] [phone] [facility] History: [facility] Medications Advair HFA 115 mcg / 21 mcg 2 puffs, Inhalation, 2 times a day, # 12 Gm, 5 Refills, Maintenance, 01/06/23 8:59:00 EST, [facility], 30, INHALE 2 PUFFS BY MOUTH TWO TIMES A DAY., 167, cm, 08/29/21 9:11:00 EDT, Height Start Date: 01/06/23 Status: Ordered aspirin 81 mg oral delayed release tablet 1 tablet, By Mouth, Daily, # 90 tablet, 3 Refills, Maintenance, 06/23/23 7:29:00 EDT, [facility], 167, cm, 08/29/21 9:11:00 EDT, Height Start Date: 06/23/23 Status: Ordered BD PEN NEEDLE SHORT 31G [...] TEST STRP, See Instructions, # 600 Unknown, 5 Refills, Maintenance, USE TO TEST BLOOD SUGARS 4 TIMES DAILY, 08/21/23 14:19:00 EDT, 167, cm, 08/29/21 9:11:00 EDT, Height Start Date: 08/21/23 Status: Ordered FREESTYLE LITE TEST STRP FREESTYLE [...] Maintenance, 03/24/2415:53:00 EST, Route to Pharmacy Electronically, [facility], 167, cm, 08/29/21 9:11:00 EDT, Height Start Date: 03/24/23 Status: Ordered Januvia 100 mg oral tablet 1 tablet, By Mouth, Daily, # 90 tablet, 0 Refills, Maintenance, 03/13/23 9:11:00 EST, [facility], 167, cm, 08/29/21 9:11:00 EDT, Height Start Date: 03/13/23 Status: Ordered Lantus Solostar Pen 100 units/mL subcutaneous solution See Instructions, INJECT SUBCUTANEOUSLY 15 UNITS DAILY AT BEDTIME., # 15 mL, 3 Refills, Maintenance, 03/24/23 16:52:00 EST, [facility], 167, cm, 08/29/21 9:11:00 EDT, Height Start Date: 03/24/23 Status: Ordered Lantus Solostar Pen 100 units/mL subcutaneous solution See Instructions, INJECT SUBCUTANEOUSLY 15 UNITS DAILY AT BEDTIME., # 15 mL, 3 Refills, Maintenance, 04/24/22 10:40:00 EST, [facility], 167, cm, 08/29/21 9:11:00 EDT, Height Start Date: 04/24/22 Status: Ordered LORazepam 1 mg oral tablet 1 tablet = 1 mg, By Mouth, 3 times a day, PRN as needed for anxiety, # 90 tablet, 3 Refills, Maintenance, 08/03/23 16:51:00 EDT, Tablet, [facility], 167, cm, 08/29/21 9:11:00 EDT, Height Start Date: 08/03/23 Stop Date: 12/01/23 Status: Ordered metFORMIN 1000 mg oral tablet 1 tablet = 1,000 mg, By Mouth, 2 times a day, # 60 tablet, 5 Refills, Maintenance, 03/25/23 15:53:00 EST, Tablet, [facility], 167, cm, 08/29/21 9:11:00 EDT, Height Start Date: 03/25/23 Stop Date: 09/21/23 Status: Ordered omeprazole 20 mg oral enteric coated capsule 1 capsule, By Mouth, Daily, # 90 capsule, 1 Refills, Maintenance, 06/22/23 19:52:00 EDT, [facility], 167, cm, 08/29/21 9:11:00 EDT, Height Start Date: 06/22/23 Status: Ordered PARoxetine 30 mg oral tablet 1 tablet, By Mouth, 2 times a day, # 180 tablet, 1 Refills, Maintenance, 03/24/23 10:11:00 EST, [facility], 167, cm, 08/29/21 9:11:00 EDT, Height Start Date: 03/24/23 Status: Ordered Pen [place], 31 G x 8 mm BD Ultra [...] WHEEZING, # 18 Gm, 5 Refills, Maintenance, 06/08/23 1:38:00 EDT, [facility], 167, cm, 08/29/21 9:11:00 EDT, Height Start Date: 06/08/23 Status: Ordered Problem List Condition Confirmation Course [...] Team Personnel Name: Shivani IBARRA, Yoel Position: [facility] Physician - Primary Care Member Role: PCP Address: Address: [address] [place] [address] [address] [place] [address]- Care Team Related Persons Name: CHAGO MEDRANO Address: home [address] [place] [address] Name: SUNIL TEMPLETON Address: home [address] [place] [address], [address] [address]
--- OUTSIDE RECORDS SUMMARY | 2023-12-15 23:05 | XMS_ITS | Continuity of Care Document ---
Author Organization [facility] Adult Address [address] [place] [address]- Care Team Providers Care Taxonomist Name Role Phone Shivani IBARRA, [facility] Primary Care Physician En[place] [facility] [place] Date(s): 10/26/23 - 11/25/23 [facility] Adult [address] [place] [address]- Allergies, Adverse Reactions, Alerts Substance Reaction Severity [...] 09/14/16 Recorded 1Result Comment: [facility] [id number] 2Result Comment: [facility] [id number] 3Result Comment: [facility] [id number] [phone] 4Admin Note: stop [facility] [...] capsule, Refills 0, Tot. Refills 0, Maintenance, 249:38:00 EDT, Route to Pharmacy Electronically, [facility] Start Date: 10/27/23 Status: Ordered gabapentin 400 mg oral capsule 1, capsule, By Mouth, 2 times a day, # 60 capsule, Refills 5, Maintenance, 10/27/23 9:38:00 EDT, Route to Pharmacy Electronically, [facility] Start Date: 10/27/23 Status: Ordered Januvia 100 mg oral tablet 1 tablet, By Mouth, Daily, # 30 tablet, 5 Refills, Maintenance, 10/27/23 9:38:00 EDT, [facility] Start Date: 10/27/23 Status: Ordered Lantus Solostar Pen 100 units/mL subcutaneous solution See Instructions, INJECT SUBCUTANEOUSLY 15 UNITS DAILY AT BEDTIME., # 15 mL, 3 Refills, Maintenance, 03/24/23 16:52:00 EST, [facility], 167, cm, 08/29/21 9:11:00 EDT, Height Start Date: 03/24/23 Status: Ordered Lantus Solostar Pen 100 units/mL subcutaneous solution See Instructions, INJECT SUBCUTANEOUSLY 15 UNITS DAILY AT BEDTIME., # 15 mL, 3 Refills, Maintenance, 04/24/22 10:40:00 EST, [facility], 167, cm, 08/29/21 9:11:00 EDT, Height Start Date: 04/24/22 Status: Ordered LORazepam 1 mg oral tablet 1 tablet = 1 mg, By Mouth, 3 times a day, PRN as needed for anxiety, # 90 tablet, 3 Refills, Maintenance, 08/03/23 16:51:00 EDT, Tablet, [facility], 167, cm, 08/29/21 9:11:00 EDT, Height Start Date: 08/03/23 Stop Date: 12/01/23 Status: Ordered metFORMIN 1000 mg oral tablet 1 tablet, By Mouth, 2 times a day, Please call office to schedule a follow up appointment for further refills, # 180 tablet, 0 Refills, Maintenance, 10/26/23 18:10:00 EDT, [facility] Start Date: 10/26/23 Status: Ordered omeprazole 20 mg oral enteric coated capsule 1 capsule, By Mouth, Daily, # 90 capsule, 1 Refills, Maintenance, 06/22/23 19:52:00 EDT, [facility], 167, cm, 08/29/21 9:11:00 EDT, Height Start Date: 06/22/23 Status: Ordered PARoxetine 30 mg oral tablet 1 tablet, By Mouth, 2 times a day, Please call office to schedule a follow up appointment for further refills, # 180 tablet, 0 Refills, Maintenance, 10/26/23 18:09:00 EDT, [facility] Start Date: 10/26/23 Status: Ordered Pen [place], 31 G x 8 mm BD Ultra Fine III See Instructions, # 100 each, Refills 3, Tot. 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, 07/30/21 11:22:00 EDT, Supply, 167, cm, 04/19/21 11:50:00 EST, Height Start Date: 07/30/21 Stop Date: 11/27/21 Status: Ordered QUEtiapine 150 mg oral tablet, extended release 1, tablet, By Mouth, Daily, # 90 tablet, Refills 1, Maintenance, 09/15/23 10:34:00 EDT, Route to Pharmacy Electronically, [facility] Start Date: 09/15/23 Status: Ordered rosuvastatin 10 mg oral tablet 1 tablet, By Mouth, Daily, # 30 tablet, 5 Refills, Maintenance, 10/27/23 9:38:00 EDT, [facility] Start Date: 10/27/23 Status: Ordered Ventolin HFA 108 mcg/inh inhalation [...] Team Personnel Name: Yoel Parrish MD Position: S Physician - Primary Care Member Role: PCP Address: Address: [address] [place] [address] 3rd [place] [address]- Care Team Related Persons Name: CHAGO MEDRANO Address: home [address] [place] [address] Name: SUNIL TEMPLETON Address: home 8 [facility], [address] [address]
--- OUTSIDE RECORDS SUMMARY | 2023-12-15 23:05 | XMS_ITS | Continuity of Care Document ---
Author Organization [facility] Adult Address [address] [place] [address]- Care Team Providers Care Cook Helper Pastry Name Role Phone Yoel Parrish MD Primary Care Physician En[place] [facility] [place] Date(s): 04/13/23 - 07/30/23 [facility] Adult [address] [place] [address]- Attending Physician: Not on Staff, Attending MD Referring Physician: Yoel Parrish MD Allergies, [...] Comment: [facility] [id number] 2Result Comment: [facility] [id number] 3Result Comment: [facility] [phone] 4Admin Note: stop and shop [...] Maintenance, 03/24/2415:53:00 EST, Route to Pharmacy Electronically, [facility], 167, cm, 08/29/21 9:11:00 [...] mL, 3 Refills, Maintenance, 04/24/22 10:40:00 EST, [facility], 167, cm, 08/29/21 9:11:00 EDT, Height Start Date: 04/24/22 Status: Ordered LORazepam 1 mg oral tablet 1 tablet = 1 mg, By Mouth, 3 times a day, PRN as needed for anxiety, # 90 tablet, 3 Refills, Maintenance, 03/09/23 14:28:00 EST, Tablet, [facility], 167, cm, 08/29/21 9:11:00 [...] Height Start Date: 03/24/23 Status: Ordered Pen [place], 31 G x 8 mm BD Ultra [...] Team Personnel Name: Yoel Parrish MD Position: [facility] Physician - Primary Care Member Role: PCP Address: Address: [address] [place] [address] [address] [place] [address]- Care Team Related Persons Name: CHAGO MEDRANO Address: home [address] [place] [address] Name: SUNIL TEMPLETON Address: home [address] [facility], [address] [address]
--- OUTSIDE RECORDS SUMMARY | 2023-12-15 23:06 | XMS_ITS | Continuity of Care Document ---
Author Organization [facility] Adult Address [address] [place] [address]- Care Team Providers Care Digital Marketing Specialist Name Role Phone Shivani IBARRA, [facility] Primary Care Physician Encounter [facility] [place] Date(s): 09/11/23 - 10/11/23 [facility] Adult [address] [place] [address]- Allergies, Adverse Reactions, Alerts Substance Reaction Severity [...] pneumococcal 23-valent vaccine 09/19/14 Recorded tetanus/diphtheria/pertussis, acel(Tdap) 11/6/17 Given tetanus/diphtheria/pertussis, acel(Tdap) 09/19/14 Recorded pneumococcal 13-valent vaccine 5 09/14/16 Recorded 1Result Comment: [facility] [id number] 2Result Comment: [facility] [id number] 3Result Comment: [facility] [id number] 4Admin Note: stop and shop [...] Maintenance, 03/24/2415:53:00 EST, Route to Pharmacy Electronically, [facility], 167, cm, 08/29/21 9:11:00 EDT, Height Start Date: 03/24/23 Status: Ordered Januvia 100 mg oral tablet 1 tablet, By Mouth, Daily, # 90 tablet, 0 Refills, Maintenance, 03/13/23 9:11:00 EST, [facility], 167, cm, 08/29/21 9:11:00 EDT, Height Start Date: 03/13/23 Status: Ordered Lantus Solostar Pen 100 units/mL subcutaneous solution See Instructions, INJECT SUBCUTANEOUSLY 15 UNITS DAILY AT BEDTIME., # 15 mL, 3 Refills, Maintenance, 03/24/23 16:52:00 EST, [facility], 167, cm, 08/29/21 9:11:00 EDT, Height Start Date: 03/24/23 Status: Ordered Lantus Solostar Pen 100 units/mL subcutaneous solution See Instructions, INJECT SUBCUTANEOUSLY 15 UNITS DAILY AT BEDTIME., # 15 mL, 3 Refills, Maintenance, 04/24/22 10:40:00 EST, [facility], 167, cm, 08/29/21 9:11:00 EDT, [...] Height Start Date: 03/24/23 Status: Ordered Pen [place], 31 G x 8 mm BD Ultra [...] 09/15/23 10:34:00 EDT, Route to Pharmacy Electronically, [facility] Start Date: 09/15/23 Status: Ordered [...] Primary Care Member Role: PCP Address: Address: [address] [place] [address] [address] [place] [address]- Care Team Related Persons Name: CHAGO MEDRANO Address: home [address] [place] [address] Name: SUNIL TEMPLETON Address: home [address] [place] [address], [address] [address]
--- OUTSIDE RECORDS SUMMARY | 2023-12-15 23:06 | XMS_ITS | Continuity of Care Document ---
Author Organization [facility] Adult Address [address] [place] [address]- Care Team Providers Care Correspondence Representative Name Role Phone Shivani IBARRA, [facility] Primary Care Physician ( [phone] [place] [facility] [place] Date(s): 06/08/23 - 07/08/23 [facility] Adult [address] [place] [address]- Allergies, Adverse Reactions, Alerts Substance Reaction Severity [...] Comment: [facility] [id number] 2Result Comment: [facility] [id number] 3Result Comment: [facility] [id number] [phone] 4Admin Note: stop and shop [...] Height Start Date: 03/24/23 Status: Ordered Pen [place], 31 G x 8 mm BD Ultra [...] EST, Route to Pharmacy Electronically, [facility], 167, cm, 08/29/21 9:11:00 EDT, [...] Team Personnel Name: Yoel Parrish MD Position: [facility] Physician - Primary Care Member Role: PCP Address: Address: [address] [place] [address] 3rd [place] [address]- Care Team Related Persons Name: CHAGO MEDRANO Address: home [address] [place] [address] Name: SUNIL TEMPLETON Address: home [address] [place] [address], [address] [address]
--- OUTSIDE RECORDS SUMMARY | 2023-12-15 23:06 | XMS_ITS | Continuity of Care Document ---
Author Organization [facility] Adult Address [address] [place] [address]- Care Team Providers Care Pre School Manager Name Role Phone Shivani IBARRA, [facility] Primary Care Physician [place] [facility] [place] 10/16/23 [facility] Adult [address] [place] [address]- Allergies, Adverse Reactions, Alerts Substance Reaction Severity [...] vaccine 5 09/14/16 Recorded 1Result Comment: [facility] [id number] 2Result Comment: [facility] [id number] 3Result Comment: [facility] [phone] 4Admin Note: stop and shop [...] Maintenance, 03/24/2415:53:00 EST, Route to Pharmacy Electronically, [facility], 167, cm, 08/29/21 9:11:00 EDT, Height Start Date: 03/24/23 Status: Ordered Januvia 100 mg oral tablet 1 tablet, By Mouth, Daily, # 90 tablet, 0 Refills, Maintenance, 03/13/23 9:11:00 EST, [facility], 167, cm, 08/29/21 9:11:00 EDT, Height Start Date: 03/13/23 Status: Ordered Lantus Solostar Pen 100 units/mL subcutaneous solution See Instructions, INJECT SUBCUTANEOUSLY 15 UNITS DAILY AT BEDTIME., # 15 mL, 3 Refills, Maintenance, 03/24/23 16:52:00 EST, [facility], 167, cm, 08/29/21 9:11:00 EDT, Height Start Date: 03/24/23 Status: Ordered Lantus Solostar Pen 100 units/mL subcutaneous solution See Instructions, INJECT SUBCUTANEOUSLY 15 UNITS DAILY AT BEDTIME., # 15 mL, 3 Refills, Maintenance, 04/24/22 10:40:00 EST, [facility], 167, cm, 08/29/21 9:11:00 EDT, [...] Height Start Date: 03/24/23 Status: Ordered Pen [place], 31 G x 8 mm BD Ultra [...] Team Personnel Name: Yoel Parrish MD Position: [facility] Physician - Primary Care Member Role: PCP Address: Address: [address] [place] [address] [address] [place] [address]- Care Team Related Persons Name: CHAGO MEDRANO Address: home [address] [place] [address] Name: SUNIL TEMPLETON Address: home 8 [facility], [address] [address]
--- OUTSIDE RECORDS SUMMARY | 2023-12-15 23:06 | XMS_ITS | Continuity of Care Document ---
Author Organization [facility] Adult Address [address] [place] [address]- Care Team Providers Care Telescope Repairer Name Role Phone Shivani IBARRA, [facility] Primary Care Physician Encounter [place] Date(s): 09/23/23 - 10/23/23 [facility] Adult [address] [place] [address]- Allergies, Adverse Reactions, Alerts Substance Reaction Severity [...] 13-valent vaccine 5 09/14/16 Recorded 1Result Comment: [facility] [id number] 2Result Comment: [facility] [phone] 3Result Comment: [facility] [phone] 4Admin Note: stop and shop [...] Maintenance, 03/24/2415:53:00 EST, Route to Pharmacy Electronically, [facility], 167, cm, 08/29/21 9:11:00 EDT, Height Start Date: 03/24/23 Status: Ordered Januvia 100 mg oral tablet 1 tablet, By Mouth, Daily, # 90 tablet, 0 Refills, Maintenance, 03/13/23 9:11:00 EST, [facility], 167, cm, 08/29/21 9:11:00 EDT, Height Start Date: 03/13/23 Status: Ordered Lantus Solostar Pen 100 units/mL subcutaneous solution See Instructions, INJECT SUBCUTANEOUSLY 15 UNITS DAILY AT BEDTIME., # 15 mL, 3 Refills, Maintenance, 03/24/23 16:52:00 EST, [facility], 167, cm, 08/29/21 9:11:00 EDT, Height Start Date: 03/24/23 Status: Ordered Lantus Solostar Pen 100 units/mL subcutaneous solution See Instructions, INJECT SUBCUTANEOUSLY 15 UNITS DAILY AT BEDTIME., # 15 mL, 3 Refills, Maintenance, 04/24/22 10:40:00 EST, [facility], 167, cm, 08/29/21 9:11:00 EDT, [...] Height Start Date: 03/24/23 Status: Ordered Pen [place], 31 G x 8 mm BD [...] Team Personnel Name: Yoel Parrish MD Position: [facility] Physician - Primary Care Member Role: PCP Address: Address: [address] [place] [address] [address] [place] [address]- Care Team Related Persons Name: CHAGO MEDRANO Address: home [address] [place] [address] Name: SUNIL TEMPLETON Address: home 8 [facility], [address] [address]
--- OUTSIDE RECORDS SUMMARY | 2023-12-15 23:06 | XMS_ITS | Continuity of Care Document ---
Author Organization [facility] Adult Address [address] [place] [address]- Care Team Providers Care Victim Advocate Name Role Phone Shivani IBARRA, [facility] Primary Care Physician [place] [facility] [place] 09/14/23 - 10/14/23 [facility] Adult [address] [place] [phone]- Allergies, Adverse Reactions, Alerts Substance Reaction Severity [...] vaccine 5 09/14/16 Recorded 1Result Comment: [facility] [id number] 2Result Comment: [facility] [phone] 3Result Comment: [facility] [phone] 4Admin Note: stop and shop [...] Maintenance, 03/24/2415:53:00 EST, Route to Pharmacy Electronically, [facility], 167, cm, 08/29/21 9:11:00 EDT, Height Start Date: 03/24/23 Status: Ordered Januvia 100 mg oral tablet 1 tablet, By Mouth, Daily, # 90 tablet, 0 Refills, Maintenance, 03/13/23 9:11:00 EST, [facility], 167, cm, 08/29/21 9:11:00 EDT, Height Start Date: 03/13/23 Status: Ordered Lantus Solostar Pen 100 units/mL subcutaneous solution See Instructions, INJECT SUBCUTANEOUSLY 15 UNITS DAILY AT BEDTIME., # 15 mL, 3 Refills, Maintenance, 03/24/23 16:52:00 EST, [facility], 167, cm, 08/29/21 9:11:00 EDT, Height Start Date: 03/24/23 Status: Ordered Lantus Solostar Pen 100 units/mL subcutaneous solution See Instructions, INJECT SUBCUTANEOUSLY 15 UNITS DAILY AT BEDTIME., # 15 mL, 3 Refills, Maintenance, 04/24/22 10:40:00 EST, [facility], 167, cm, 08/29/21 9:11:00 EDT, [...] Height Start Date: 03/24/23 Status: Ordered Pen [place], 31 G x 8 mm BD Ultra [...] Team Personnel Name: Yoel Parrish MD Position: [facility] Physician - Primary Care Member Role: PCP Address: Address: [address] [place] [address] [address] [place] [address]- Care Team Related Persons Name: CHAGO MEDRANO Address: home [address] [place] [address] Name: SUNIL TEMPLETON Address: home [address] [place] [address], [address] [address]
--- OUTSIDE RECORDS SUMMARY | 2023-12-15 23:07 | XMS_ITS | Continuity of Care Document ---
Author Organization [facility] Adult Address [address] [place] [address]- Care Team Providers Care Metal Coater Name Role Phone Shivani IBARRA, [facility] Primary Care Physician En[place] [facility] [place] Date(s): 09/21/23 - 10/21/23 [facility] Adult [address] [place] [address]- Allergies, Adverse Reactions, Alerts Substance Reaction Severity [...] Comment: [facility] [id number] 2Result Comment: [facility] [phone] 3Result Comment: [facility] [phone] 4Admin Note: stop and shop [...] Maintenance, 03/24/2415:53:00 EST, Route to Pharmacy Electronically, [facility], 167, cm, 08/29/21 9:11:00 EDT, Height Start Date: 03/24/23 Status: Ordered Januvia 100 mg oral tablet 1 tablet, By Mouth, Daily, # 90 tablet, 0 Refills, Maintenance, 03/13/23 9:11:00 EST, [facility], 167, cm, 08/29/21 9:11:00 EDT, Height Start Date: 03/13/23 Status: Ordered Lantus Solostar Pen 100 units/mL subcutaneous solution See Instructions, INJECT SUBCUTANEOUSLY 15 UNITS DAILY AT BEDTIME., # 15 mL, 3 Refills, Maintenance, 03/24/23 16:52:00 EST, [facility], 167, cm, 08/29/21 9:11:00 EDT, Height Start Date: 03/24/23 Status: Ordered Lantus Solostar Pen 100 units/mL subcutaneous solution See Instructions, INJECT SUBCUTANEOUSLY 15 UNITS DAILY AT BEDTIME., # 15 mL, 3 Refills, Maintenance, 04/24/22 10:40:00 EST, [facility], 167, cm, 08/29/21 9:11:00 EDT, [...] Height Start Date: 03/24/23 Status: Ordered Pen [place], 31 G x 8 mm BD Ultra [...] Team Personnel Name: Yoel Parrish MD Position: [facility] Physician - Primary Care Member Role: PCP Address: Address: [address] [place] [address] [address] [place] [address]- Care Team Related Persons Name: CHAGO MEDRANO Address: home [address] [place] [address] Name: SUNIL TEMPLETON Address: home 8 [facility], [address] [address]
--- OUTSIDE RECORDS SUMMARY | 2023-12-15 23:07 | XMS_ITS | Continuity of Care Document ---
Author Organization [facility] Adult Address [address] [place] [address]- Care Team Providers Care Grocery Associate Name Role Phone Shivani IBARRA, [facility] Primary Care Physician Encounter [facility] [place] Date(s): 09/15/23 - 10/15/23 [facility] Adult [address] [place] [address]- Allergies, Adverse Reactions, Alerts Substance Reaction Severity [...] 1Result Comment: [facility] [id number] 2Result Comment: [facility] [phone] 3Result Comment: [facility] [id number] [phone] 4Admin Note: stop and shop [...] Maintenance, 03/24/2415:53:00 EST, Route to Pharmacy Electronically, [facility], 167, cm, 08/29/21 9:11:00 EDT, Height Start Date: 03/24/23 Status: Ordered Januvia 100 mg oral tablet 1 tablet, By Mouth, Daily, # 90 tablet, 0 Refills, Maintenance, 03/13/23 9:11:00 EST, [facility], 167, cm, 08/29/21 9:11:00 EDT, Height Start Date: 03/13/23 Status: Ordered Lantus Solostar Pen 100 units/mL subcutaneous solution See Instructions, INJECT SUBCUTANEOUSLY 15 UNITS DAILY AT BEDTIME., # 15 mL, 3 Refills, Maintenance, 03/24/23 16:52:00 EST, [facility], 167, cm, 08/29/21 9:11:00 EDT, Height Start Date: 03/24/23 Status: Ordered Lantus Solostar Pen 100 units/mL subcutaneous solution See Instructions, INJECT SUBCUTANEOUSLY 15 UNITS DAILY AT BEDTIME., # 15 mL, 3 Refills, Maintenance, 04/24/22 10:40:00 EST, [facility], 167, cm, 08/29/21 9:11:00 EDT, [...] Height Start Date: 03/24/23 Status: Ordered Pen [place], 31 G x 8 mm BD Ultra [...] Team Personnel Name: Yoel Parrish MD Position: [facility] Physician - Primary Care Member Role: PCP Address: Address: [address] [place] [address] [address] [place] [address]- Care Team Related Persons Name: CHAGO MEDRANO Address: home [address] [place] [address] Name: SUNIL TEMPLETON Address: home [address] [place] [address], [address] [address]
--- OUTSIDE RECORDS SUMMARY | 2023-12-15 23:07 | XMS_ITS | Continuity of Care Document ---
Author Organization [facility] Adult Address [address] [place] [address]- Care Team Providers Care Carpenter Assistant Installer Name Role Phone Shivani IBARRA, [facility] Primary Care Physician En[place] [facility] [place] Date(s): 08/13/23 - 09/12/23 [facility] Adult [address] [place] [address]- Allergies, Adverse Reactions, Alerts Substance Reaction Severity Status glipiZIDE facial swelling,rash Active Tylox Chest pain not present Activ e Immunizations Given and Recorded Vaccine Date Status Refusal Reason influenza virus vaccine, inactivated 02/06/22 Jose rded influenza virus vaccine, inactivated 11/18/19 Jose rded influenza virus vaccine, inactivated 1 11/19/18 Gi ancelmo influenza virus vaccine, inactivated 2 11/18/18 Gi ancemlo influenza virus vaccine, inactivated 12/21/17 Jose rded [...] 13-valent vaccine 5 09/14/16 Recorded 1Result Comment: [facility] [id number] 2Result Comment: [facility] [phone] 3Result Comment: [facility] [phone] 4Admin Note: stop and shop [...] Maintenance, 03/24/2415:53:00 EST, Route to Pharmacy Electronically, [facility], 167, cm, 08/29/21 9:11:00 EDT, Height Start Date: 03/24/23 Status: Ordered Januvia 100 mg oral tablet 1 tablet, By Mouth, Daily, # 90 tablet, 0 Refills, Maintenance, 03/13/23 9:11:00 EST, [facility], 167, cm, 08/29/21 9:11:00 EDT, Height Start Date: 03/13/23 Status: Ordered Lantus Solostar Pen 100 units/mL subcutaneous solution See Instructions, INJECT SUBCUTANEOUSLY 15 UNITS DAILY AT BEDTIME., # 15 mL, 3 Refills, Maintenance, 03/24/23 16:52:00 EST, [facility], 167, cm, 08/29/21 9:11:00 EDT, Height Start Date: 03/24/23 Status: Ordered Lantus Solostar Pen 100 units/mL subcutaneous solution See Instructions, INJECT SUBCUTANEOUSLY 15 UNITS DAILY AT BEDTIME., # 15 mL, 3 Refills, Maintenance, 04/24/22 10:40:00 EST, [facility], 167, cm, 08/29/21 9:11:00 EDT, [...] Height Start Date: 03/24/23 Status: Ordered Pen [place], 31 G x 8 mm BD Ultra [...] Team Personnel Name: Shivani IBARRA, Yoel Position: [facility] Physician - Primary Care Member Role: PCP Address: Address: [address] [place] [address] 3rd [place] [address]- Care Team Related Persons Name: CHAGO MEDRANO Address: home [address] [place] [address] Name: SUNIL TEMPLETON Address: home [address] [place] [address], [address] [address]
--- OUTSIDE RECORDS SUMMARY | 2023-12-15 23:07 | XMS_ITS | Continuity of Care Document ---
Author Organization [facility] Adult Address [address] [place] [address]- Care Team Providers Care Senior Brand Manager Name Role Phone Shivani IBARRA, [facility] Primary Care Physician [place] [facility] [place] 06/[place]/23 - 07/30/23 [facility] Adult [address] [place] [id number]- Attending Physician: Samara Lubin Admitting Physician: AdmSamara [...] 09/14/16 Recorded 1Result Comment: [facility] [id number] 2Result Comment: [facility] [id number] 3Result Comment: [facility] [phone] 4Admin Note: stop and shop [...] Maintenance, 03/24/2415:53:00 EST, Route to Pharmacy Electronically, [facility], 167, cm, 08/29/21 9:11:00 EDT, Height Start Date: 03/24/23 Status: Ordered Januvia 100 mg oral tablet 1 tablet, By Mouth, Daily, # 90 tablet, 0 Refills, Maintenance, 03/13/23 9:11:00 EST, [facility], 167, cm, 08/29/21 9:11:00 EDT, Height Start Date: 03/13/23 Status: Ordered Lantus Solostar Pen 100 units/mL subcutaneous solution See Instructions, INJECT SUBCUTANEOUSLY 15 UNITS DAILY AT BEDTIME., # 15 mL, 3 Refills, Maintenance, 03/24/23 16:52:00 EST, [facility], 167, cm, 08/29/21 9:11:00 EDT, Height Start Date: 03/24/23 Status: Ordered Lantus Solostar Pen 100 units/mL subcutaneous solution See Instructions, INJECT SUBCUTANEOUSLY 15 UNITS DAILY AT BEDTIME., # 15 mL, 3 Refills, Maintenance, 04/24/22 10:40:00 EST, [facility], 167, cm, 08/29/21 9:11:00 EDT, Height Start Date: 04/24/22 Status: Ordered LORazepam 1 mg oral tablet 1 tablet = 1 mg, By Mouth, 3 times a day, PRN as needed for anxiety, # 90 tablet, 3 Refills, Maintenance, 03/09/23 14:28:00 EST, Tablet, [facility], 167, cm, 08/29/21 9:11:00 EDT, [...] Height Start Date: 03/24/23 Status: Ordered Pen [place], 31 G x 8 mm BD Ultra [...] Authored Date: Laboratory * Event Display: Non Lab Results Authored Date: Patient Care team information Care Team Personnel Name: Yoel Parrish MD Position: [facility] Physician - Primary Care Member Role: PCP Address: Address: [address] [place] [address] [address] [place] [address]- Care Team Related Persons Name: CHAGO MEDRANO Address: home [address] [place] [address] Name: SUNIL ETMPLETON Address: home [address] [place] [address], [address] [address]
--- OUTSIDE RECORDS SUMMARY | 2023-12-15 23:08 | XMS_ITS | Continuity of Care Document ---
Author Organization [facility] Adult Address [address] [place] [address]- Care Team Providers Care Logistics Administrator Name Role Phone Shivani IBARRA, [facility] Primary Care Physician [place] [facility] [place] 09/16/23 - 10/16/23 [facility] Adult [address] [place] [phone]- Allergies, Adverse Reactions, Alerts Substance Reaction Severity [...] Comment: [facility] [place] 2[place] [phone] 2Result Comment: [facility] [place] [id number] 3Result Comment: [facility] [phone] 4Admin Note: stop and shop [...] Maintenance, 03/24/2415:53:00 EST, Route to Pharmacy Electronically, [facility], 167, cm, 08/29/21 9:11:00 EDT, Height Start Date: 03/24/23 Status: Ordered Januvia 100 mg oral tablet 1 tablet, By Mouth, Daily, # 90 tablet, 0 Refills, Maintenance, 03/13/23 9:11:00 EST, [facility], 167, cm, 08/29/21 9:11:00 EDT, Height Start Date: 03/13/23 Status: Ordered Lantus Solostar Pen 100 units/mL subcutaneous solution See Instructions, INJECT SUBCUTANEOUSLY 15 UNITS DAILY AT BEDTIME., # 15 mL, 3 Refills, Maintenance, 03/24/23 16:52:00 EST, [facility], 167, cm, 08/29/21 9:11:00 EDT, Height Start Date: 03/24/23 Status: Ordered Lantus Solostar Pen 100 units/mL subcutaneous solution See Instructions, INJECT SUBCUTANEOUSLY 15 UNITS DAILY AT BEDTIME., # 15 mL, 3 Refills, Maintenance, 04/24/22 10:40:00 EST, [facility], 167, cm, 08/29/21 9:11:00 EDT, [...] Height Start Date: 03/24/23 Status: Ordered Pen [place], 31 G x 8 mm BD Ultra [...] Team Personnel Name: Yoel Parrish MD Position: [facility] Physician - Primary Care Member Role: PCP Address: Address: [address] [place] [address] [address] [place] [address]- Care Team Related Persons Name: CHAGO MEDRANO Address: home [address] [place] [address] Name: SUNIL TEMPLETON Address: home [address] [facility], [address] [address]
[2023-12-16] VITALS: BP 112/62; PULSE 83; RESP 12; TEMP 36.5; O2SAT 98
[2023-12-16 01:04] LABS: MANUAL DIFF FLAG NO
[2023-12-16 01:05] LABS: Basophils Percent Auto 0.4 % (0-2); Eosinophils Absolute Auto 0.1 X10*3/uL (0.0-0.4); Eosinophils Percent Auto 1.3 % (0-4); Hematocrit 38.1 % (42.0-52.0); Hemoglobin 13.2 g/dl (14.0-18.0); Imm Gran Abs Auto 0.02 X10*3/uL (0.00-0.03); Imm Gran Pct Auto 0.2 % (0.0-0.4); Lymphocytes Absolute Auto 1.9 X10*3/uL (1.2-4.9); Lymphocytes Percent Auto 22.4 % (20-40); Mean Corpuscular HGB Conc 34.6 g/dl (31.0-36.0); Mean Corpuscular Hemoglobin 29.4 pg (27.0-33.0); Mean Corpuscular Volume 84.9 fL (80.0-98.0); Mean Platelet Volume 9.2 fL (9.4-12.4); Monocytes Absolute Auto 0.8 X10*3/uL (0.1-1.2); Monocytes Percent Auto 9.8 % (2-11); Neutrophils Absolute Auto 5.6 x10*3/uL (2.0-8.3); Neutrophils Percent Auto 65.9 % (45-73); Platelet Count 231 X10*3/uL (160-400); Red Blood Count 4.49 X10*6/uL (4.60-5.80); Red Cell Distribution Width 12.7 % (11.0-16.0); White Blood Count 8.5 X10*3/uL (4.8-10.8)
[2023-12-16 01:27] LABS: Alanine Aminotransferase 22 U/L (0-40); Albumin Level 3.7 g/dL (3.5-5.0); Alkaline Phosphatase 83 U/L (39-117); Anion Gap 13 (12-20); Aspartate Amino Transferase 19 U/L (5-37); Bilirubin Direct 0.1 mg/dL (0.0-0.5); Bilirubin Total 0.3 mg/dL (0.0-1.0); Blood Urea Nitrogen 16 mg/dL (9-16); Calcium 9.5 mg/dL (8.4-10.2); Carbon Dioxide 27 mmol/L (22-29); Chloride 104 mmol/L (96-108); Creatinine Clr Calc Pharmacy 74.7; Estimated Glomerular Filt Rate > 60; Ethanol < 10 mg/dL; Glucose Random 149 mg/dL (60-115); Sodium 140 mmol/L (135-145); Total Protein 6.9 g/dL (6.5-8.0)
[2023-12-16 06:15] VITALS: BP 125/63; PULSE 73; RESP 16; TEMP 36.8; O2SAT 98
[2023-12-16 06:29] LABS: Amphetamine Screen Urine Not Detected (Not Detect); Barbiturates, Urine Not Detected (Not Detect); Benzodiazepines Screen Urine Not Detected (Not Detect); Buprenorphine Scr Not Detected (Not Detect); Cannabinoid Screen Urine Not Detected (Not Detect); Cocaine Screen Urine POSITIVE (Not Detect); Fentanyl, urine Not Detected (Not Detect); Methadone Screen, Urine Not Detected (Not Detect); Opiate Screen Urine Not Detected (Not Detect); Oxycodone Screen Urine Not Detected (Not Detect); Phencyclidine Screen Urine Not Detected (Not Detect)
[2023-12-16 09:25] VITALS: BP 120/63; PULSE 70; RESP 18; TEMP 36.9; O2SAT 98
== END 2023-12-16 09:26 | disposition home or self-care (01) ==
PROVIDERS: Emergency Provider Emergency Medicine; PCP Internal Medicine
DX: S93.401A Sprain of unspecified ligament of right ankle, initial encounter (principal); M25.571 Pain in right ankle and joints of right foot; F33.1 Major depressive disorder, recurrent, moderate; F17.210 Nicotine dependence, cigarettes, uncomplicated; X50.1XXA Overexertion from prolonged static or awkward postures, initial encounter; Y93.89 Activity, other specified; Y92.89 Other specified places as the place of occurrence of the external cause; Y99.8 Other external cause status; Z79.899 Other long term (current) drug therapy; Z51.81 Encounter for therapeutic drug level monitoring
CPT/HCPCS: 29515; 36415; 73610; 73630; 80048; 80076; 80307; 85025; 99285; S9485

== ENCOUNTER 2023-12-16 16:52 | Emergency (ER) | payer MEDICARE, MEDICAID, SELFPAY ==
[2023-12-16 16:58] VITALS: BP 118/61; PULSE 88; RESP 19; TEMP 36.6; O2SAT 98; BMI 25.8
== END 2023-12-16 19:12 | disposition left against medical advice (07) ==
PROVIDERS: Emergency Provider Emergency Medicine; PCP Internal Medicine
DX: M25.571 Pain in right ankle and joints of right foot (principal); Z53.21 Procedure and treatment not carried out due to patient leaving prior to being seen by health care provider
CPT/HCPCS: 99281

== ENCOUNTER 2023-12-16 20:38 | Emergency (ER) | payer MEDICARE, MEDICAID, SELFPAY ==
[2023-12-16 21:15] VITALS: BP 140/61; PULSE 95; RESP 19; TEMP 36.6; O2SAT 98; BMI 24.9
--- NOTE | 2023-12-17 00:27 | ED_ITS ---
HPI - Extremity Injury (Lower) General Chief Complaint: Extremity Injury, Lower Stated Complaint: RT foot pain Time Seen by Provider: 12/17/23 00:18 Source: patient and RN notes reviewed Mode of arrival: ambulatory Limitations: no limitations History of Present Illness ED Provider: Amalia Armijo PA-C HPI Narrative: This is a 58-year-old male, with a past medical history of diabetes, substance use disorder, who presents emergency department with complaints of right ankle pain. Patient was seen here 2 days ago due to ankle pain. Patient states that 2 weeks ago he accidentally rolled his right ankle on a curb. Denies falling to the ground or hitting his head. He was requesting an air cast 2 days ago which she was given however states that he has had Achilles pain which he believes is attributed to his sneakers, and ankle pain. He is requesting a walking boot. He denies any new injury or trauma. No fevers or chills. He is otherwise feeling well. No other complaints or concerns at this time. MD complaint: ankle injury Onset (ago): week(s) Type of Injury: inversion Place: street/outdoors Severity: moderate Relieving factors: nothing Exacerbating factors: weight bearing, movement and palpation Context: fall and walking Other symptoms: none Related Data Home Medications ?Medication ?Instructions ?Recorded ?Confirmed lorazepam 1 mg tablet 1 mg PO TID 06/25/23 11/28/23 omeprazole 20 mg capsule,delayed 20 mg PO BEDTIME 11/29/23 11/29/23 release Previous Rx's ?Medication ?Instructions ?Recorded albuterol sulfate 90 mcg/actuation 2 puff inhalation QID PRN wheezing 09/21/23 aerosol inhaler (Ventolin HFA) 300 days #1 inhaler aspirin 81 mg tablet,delayed 81 mg PO DAILY 30 days #30 tabs 09/21/23 release fluticasone propionate 115 2 puff inhalation BID 30 days #1 09/21/23 mcg-salmeterol 21 mcg/actuation inhaler HFA inhaler (Advair HFA) gabapentin 400 mg capsule 400 mg PO BID 30 days #60 caps 09/21/23 insulin glargine 100 unit/mL 15 unit (0.15 mL) subcut BEDTIME 09/21/23 subcutaneous solution 30 days #15 mL metformin 1,000 mg tablet 1,000 mg PO BID 30 days #60 tabs 09/21/23 nicotine (polacrilex) 2 mg gum 4 mg buccal Q2H PRN Nicotine 09/21/23 Cravings 30 days #120 ea paroxetine HCl 30 mg tablet 30 mg PO BID 30 days #60 tabs 09/21/23 rosuvastatin 10 mg tablet 10 mg PO DAILY 30 days #30 tabs 09/21/23 sitagliptin phosphate 100 mg 100 mg PO DAILY 30 days #30 tabs 09/21/23 tablet (Januvia) quetiapine 300 mg tablet 300 mg PO BEDTIME 30 days #30 tabs 12/03/23 risperidone 1 mg tablet 1 mg PO BID@0800,1700 30 days #60 12/03/23 tabs ibuprofen 600 mg tablet 600 mg PO Q8H PRN fever or pain 12/09/23 #20 tabs Allergies Allergy/AdvReac Type Severity Reaction Status Date / Time glipizide [GLIPIZIDE] Allergy Intermediate ITCHY Verified 12/16/23 21:17 oxycodone [From TYLOX] AdvReac Intermediate CHEST PAINS Verified 12/16/23 21:17 Review of Systems Review of Systems: Yes all other systems are reviewed and are negative Constitutional: Constitutional: Reports as per [facility] Past Medical History Medical History Anxiety Diabetes Social History Social History Household Members: None Housing: Homeless Do you presently have visiting nurse or other home services: No Unable to assess alcohol history related to: Unknown Alcohol intake: current Alcohol intake frequency: a few times a month Alcohol type: beer Patient Tobacco Use Status: Current everyday Tobacco user Tobacco use type: Cigarette Cigarette Packs Per Day: 1 Cigarettes Per Day: 20.0 Years Smoked: 40 e-Cigarette/Vaping Use: Former Use Second Hand Smoke Exposure: Yes Substance Use Type: Crack/Cocaine, Prescription Drugs and Caffiene Advance Directives: Yes Advance Directives on File: Yes Advance Directives Date on File: 10/24/21 service: No Sexual orientation: Straight/Heterosexual Physical Exam Vital Signs: Vital Signs: Last Vital Signs Temp 98 F 12/17/23 00:40 Pulse 95 12/17/23 00:40 Resp 19 12/17/23 00:40 BP 140/61 H 12/17/23 00:40 Pulse Ox 98 12/17/23 00:40 O2 Del Method Room Air 12/17/23 00:40 BMI result Body Mass Index 24.9 Const: General: cooperative, comfortable and no acute distress Orientation/consciousness: patient oriented x3 Limitations: no limitations HEENT: Head: Yes normal to inspection, Yes normocephalic and Yes atraumatic Ears: hearing grossly normal bilaterally General nose exam: Normal external nose present Face and sinus: Yes normal facial exam Mouth: Normal oral and palatal mucosa present, oropharynx normal and moist mucous membranes Throat: Yes posterior oropharynx normal Eyes: General: appearance normal, both eyes and all related structures Eyelids: Yes eyelids normal Conjunctivae: conjunctivae normal Sclerae: sclerae normal Pupils: Equal, round and reactive pupils present EOM: EOMs intact bilaterally Neck: Neck: Yes normal visual inspection, Yes full ROM and Yes no lymphadenopathy Lymphatic: no lymphadenopathy noted Chest: Chest palpation & inspection: normal inspection of the chest Resp: Effort & Inspection: normal respiratory effort and able to speak in complete sentences Auscultation: clear to auscultation bilaterally Cardio: Rate: regular rate Rhythm: regular rhythm GI: Inspection: Yes normal to inspection Skin: General skin exam: no rashes or lesions noted Trauma: no lacerations or abrasions Wounds: no wounds Neuro: General: patient oriented x3 and moves all extremities Cranial nerves: Yes Equal, round and reactive pupils present Extrem: Other: Right ankle with no tenderness palpation along the medial and lateral malleolus. He has mild tenderness palpation along the Achilles tendon, Achilles tendon is intact. No overlying erythema or warmth. Full range of motion of the ankle joint without difficulty. Strong DP pulse. No open wounds or lacerations. General: Yes normal to inspection Right upper extremity: normal to inspection Left upper extremity: normal to inspection Right lower extremity: normal to inspection Left lower extremity: normal to inspection Medical Decision Making Medical Decision Making MDM Narrative: This is a 58-year-old male who presents emergency department with complaints of right ankle pain and Achilles tendon pain. On arrival, vital signs within normal limits, he is speaking in full sentences under no acute distress. He is requesting a walking boot. He has had no new injury or trauma. Patient's symptoms consistent with Achilles tendinitis/ankle sprain. Will treat with walking boot. No indication for repeat imaging at this time. His Achilles tendon is intact. Given orthopedic referral. Also advised to alternate between ibuprofen and or Tylenol as needed for pain. He understands agrees with plan. Patient stable for discharge. Differential Diagnosis Differential Diagnoses: The differential diagnosis associated with the presentation includes Ankle sprain, strain, contusion, Achilles tendonitis/Achilles rupture-unlikely Admission/Observation Consideration of admission/observation: Escalation of care including admission/observation considered Radiology Impression Discussion of test interpretation with radiology: I have reviewed the radiologist's reading. Radiologist Impression: Review of foot and ankle x-ray revealing no acute bony abnormality - performed on 12/15/2023. Discharge Plan Discharge Clinical Impression: Ankle sprain, Pain in Achilles tendon Patient Disposition: Home, Self-Care Instructions: Ankle Sprain (ED) Additional Instructions: You were seen in the emergency department due to ongoing right foot pain. We had given you a walking boot per your request. Please rest, ice, elevate, and follow-up with the orthopedic team. Alternate between ibuprofen and or Tylenol as needed for pain and symptoms. If any new or worsening symptoms occur, please return for re-evaluation. Prescriptions: No Action nicotine (polacrilex) 2 mg Gum 4 mg buccal Q2H PRN (Reason: Nicotine Cravings) 30 Days Qty: 120 1RF gabapentin 400 mg Capsule 400 mg PO BID 30 Days Qty: 60 0RF aspirin 81 mg tablet,delayed release (DR/EC) 81 mg PO DAILY 30 Days Qty: 30 0RF paroxetine HCl 30 mg tablet 30 mg PO BID 30 Days Qty: 60 0RF metformin 1,000 mg tablet 1,000 mg PO BID 30 Days Qty: 60 0RF albuterol sulfate [Ventolin HFA] 90 mcg/actuation HFA aerosol inhaler 2 puff INHALATION QID PRN (Reason: wheezing) 300 Days Qty: 1 0RF rosuvastatin 10 mg tablet 10 mg PO DAILY 30 Days Qty: 30 0RF fluticasone propion-salmeterol [Advair HFA] 115-21 mcg/actuation HFA aerosol inhaler 2 puff INHALATION BID 30 Days Qty: 1 0RF Januvia 100 mg tablet 100 mg PO DAILY 30 Days Qty: 30 0RF insulin glargine 100 unit/mL Solution 15 unit subcut BEDTIME 30 Days Qty: 15 0RF omeprazole 20 mg capsule,delayed release(DR/EC) 20 mg PO BEDTIME quetiapine 300 mg Tablet 300 mg PO BEDTIME 30 Days Qty: 30 0RF risperidone 1 mg Tablet 1 mg PO BID@0800,1700 30 Days Qty: 60 0RF ibuprofen 600 mg tablet 600 mg PO Q8H PRN (Reason: fever or pain) Qty: 20 0RF lorazepam 1 mg tablet 1 mg PO TID Referrals: [facility] [facility] [Provider Group] Interventions: ED Discharge Assessment Last Done: 12/17/23 00:40 Discharge Date/Time: 12/17/23 00:41 Print Language: Czech
[2023-12-17 00:40] VITALS: BP 140/61; PULSE 95; RESP 19; TEMP 36.6; O2SAT 98
== END 2023-12-17 00:41 | disposition home or self-care (01) ==
PROVIDERS: Emergency Provider Emergency Medicine
DX: S93.401A Sprain of unspecified ligament of right ankle, initial encounter (principal); X50.1XXA Overexertion from prolonged static or awkward postures, initial encounter; M76.61 Achilles tendinitis, right leg; Y93.01 Activity, walking, marching and hiking; Y92.480 Sidewalk as the place of occurrence of the external cause; Y99.9 Unspecified external cause status
CPT/HCPCS: 99281; 99282; 99283

== ENCOUNTER 2023-12-19 19:56 | Emergency (ER) | payer MEDICARE, MEDICAID, SELFPAY ==
[2023-12-19 20:04] VITALS: BP 114/85; PULSE 89; RESP 16; TEMP 36.7; O2SAT 99; BMI 28.0
--- NOTE | 2023-12-19 20:06 | ED_ITS ---
HPI - URI/Sore Throat General Chief Complaint: General Medical Stated Complaint: right nostril infection? Time Seen by Provider: 12/19/23 22:58 Source: patient Mode of arrival: ambulatory Limitations: no limitations History of Present Illness ED Provider: garrett ONTIVEROS Narrative: Patient has been having chronic pain in the right nostril for last 6 months has not taken any antibiotics does not use any drugs Related Data Home Medications ?Medication ?Instructions ?Recorded ?Confirmed lorazepam 1 mg tablet 1 mg PO TID 06/25/23 11/28/23 omeprazole 20 mg capsule,delayed 20 mg PO BEDTIME 11/29/23 11/29/23 release Previous Rx's ?Medication ?Instructions ?Recorded albuterol sulfate 90 mcg/actuation 2 puff inhalation QID PRN wheezing 09/21/23 aerosol inhaler (Ventolin HFA) 300 days #1 inhaler aspirin 81 mg tablet,delayed 81 mg PO DAILY 30 days #30 tabs 09/21/23 release fluticasone propionate 115 2 puff inhalation BID 30 days #1 09/21/23 mcg-salmeterol 21 mcg/actuation inhaler HFA inhaler (Advair HFA) gabapentin 400 mg capsule 400 mg PO BID 30 days #60 caps 09/21/23 insulin glargine 100 unit/mL 15 unit (0.15 mL) subcut BEDTIME 09/21/23 subcutaneous solution 30 days #15 mL metformin 1,000 mg tablet 1,000 mg PO BID 30 days #60 tabs 09/21/23 nicotine (polacrilex) 2 mg gum 4 mg buccal Q2H PRN Nicotine 09/21/23 Cravings 30 days #120 ea paroxetine HCl 30 mg tablet 30 mg PO BID 30 days #60 tabs 09/21/23 rosuvastatin 10 mg tablet 10 mg PO DAILY 30 days #30 tabs 09/21/23 sitagliptin phosphate 100 mg 100 mg PO DAILY 30 days #30 tabs 09/21/23 tablet (Januvia) quetiapine 300 mg tablet 300 mg PO BEDTIME 30 days #30 tabs 12/03/23 risperidone 1 mg tablet 1 mg PO BID@0800,1700 30 days #60 12/03/23 tabs ibuprofen 600 mg tablet 600 mg PO Q8H PRN fever or pain 12/09/23 #20 tabs doxycycline hyclate 100 mg tablet 100 mg PO BID #20 tabs 12/19/23 mupirocin 2 % topical ointment 1 appl topical BID #15 grams 12/19/23 Allergies Allergy/AdvReac Type Severity Reaction Status Date / Time glipizide [GLIPIZIDE] Allergy Intermediate ITCHY Verified 12/19/23 20:06 oxycodone [From TYLOX] AdvReac Intermediate CHEST PAINS Verified 12/19/23 20:06 Review of Systems Review of Systems: Yes all other systems are reviewed and are negative [facility] Past Medical History Medical History Anxiety Diabetes Social History Social History Household Members: None Housing: Homeless Do you presently have visiting nurse or other home services: No Unable to assess alcohol history related to: Unknown Alcohol intake: current Alcohol intake frequency: a few times a month Alcohol type: beer Patient Tobacco Use Status: Current everyday Tobacco user Tobacco use type: Cigarette Cigarette Packs Per Day: 1 Cigarettes Per Day: 20.0 Years Smoked: 40 e-Cigarette/Vaping Use: Former Use Second Hand Smoke Exposure: Yes Substance Use Type: Crack/Cocaine, Prescription Drugs and Caffiene Advance Directives: Yes Advance Directives on File: Yes Advance Directives Date on File: 10/24/21 Do you have a plan to hurt others: No Plan service: No Sexual orientation: Straight/Heterosexual Physical Exam Vital Signs: Vital Signs: Last Vital Signs Temp 98.1 F 12/19/23 23:11 Pulse 89 12/19/23 23:11 Resp 16 12/19/23 23:11 BP 114/85 12/19/23 23:11 Pulse Ox 99 12/19/23 23:11 O2 Del Method Room Air 12/19/23 23:11 BMI result Body Mass Index 28.0 Appearance: Alert. Oriented X3. No acute distress. ENT: Pharynx normal. Oral Mucosa moist right nostril with small ulcer with inflammation around it on the septum? Staph Neck: Normal inspection. Neck supple. CVS: Normal heart rate and rhythm. Pulses normal. Respiratory: No respiratory distress. Equal air entry bilateral, no wheezing/rales/rhonchi Skin: Skin warm and dry. Normal skin color. Normal skin turgor. Extremities: No lower extremity edema. Neuro: Oriented X 3. Course Course Course Narrative: This is a Rapid Medical Exam performed in triage by Pearl Wilson PA-C. Full HPI, ROS and PE to be performed by primary ED provider. 58 yo M with a past medical history of MDD, substance induced psychotic disorder, substance abuse presenting to the ED c/o suspected right nostril infection with pain/discomfort radiating down to throat x 4 months. States picks scab out intermittently. Admits he used to use cocaine, has been clean for 4 months PE: Mild erythema noted to right nostril. Septum intact. Plan: viral testing, rapid strep Medications Administered Discontinued Medications Generic Name Dose Route Start Last Admin Trade Name Freq PRN Reason Stop Dose Admin Doxycycline Monohydrate 100 mg 12/19/23 23:01 12/19/23 23:07 Doxycycline Monohydrate 100 Mg Capsule PO 12/19/23 23:02 100 mg ONCE ONE Administration Medical Decision Making Medical Decision Making [facility] Narrative: Patient's likely chronic strep infection in the right nostril denied any drug use will prescribe doxycycline and mupirocin Lab Data [facility] Lab Attestation statement: I reviewed the patient's lab results. Labs: Lab Results 12/19/23 Range/Units 20:23 Influenza Type A (PCR) NEGATIVE (Negative) Influenza Type B (PCR) NEGATIVE (Negative) RSV RNA Qual (PCR) NEGATIVE (Negative) SARS-CoV-2 RNA (RT-PCR) NEGATIVE (Negative) S. pyogenes GrpA ARIANE Negative (Negative) Discharge Plan Discharge Clinical Impression: Staph infection Patient Disposition: Home, Self-Care Instructions: Upper Respiratory Infection (ED) Additional Instructions: Take antibiotic as prescribed for the infection in the right nostril likely have staph infection Apply ointment twice a day at the affected area Prescriptions: New doxycycline hyclate 100 mg tablet 100 mg PO BID Qty: 20 0RF mupirocin 2 % ointment 1 appl topical BID Qty: 15 0RF No Action nicotine (polacrilex) 2 mg Gum 4 mg buccal Q2H PRN (Reason: Nicotine Cravings) 30 Days Qty: 120 1RF gabapentin 400 mg Capsule 400 mg PO BID 30 Days Qty: 60 0RF aspirin 81 mg tablet,delayed release (DR/EC) 81 mg PO DAILY 30 Days Qty: 30 0RF paroxetine HCl 30 mg tablet 30 mg PO BID 30 Days Qty: 60 0RF metformin 1,000 mg tablet 1,000 mg PO BID 30 Days Qty: 60 0RF albuterol sulfate [Ventolin HFA] 90 mcg/actuation HFA aerosol inhaler 2 puff INHALATION QID PRN (Reason: wheezing) 300 Days Qty: 1 0RF rosuvastatin 10 mg tablet 10 mg PO DAILY 30 Days Qty: 30 0RF fluticasone propion-salmeterol [Advair HFA] 115-21 mcg/actuation HFA aerosol inhaler 2 puff INHALATION BID 30 Days Qty: 1 0RF Januvia 100 mg tablet 100 mg PO DAILY 30 Days Qty: 30 0RF insulin glargine 100 unit/mL Solution 15 unit subcut BEDTIME 30 Days Qty: 15 0RF omeprazole 20 mg capsule,delayed release(DR/EC) 20 mg PO BEDTIME quetiapine 300 mg Tablet 300 mg PO BEDTIME 30 Days Qty: 30 0RF risperidone 1 mg Tablet 1 mg PO BID@0800,1700 30 Days Qty: 60 0RF ibuprofen 600 mg tablet 600 mg PO Q8H PRN (Reason: fever or pain) Qty: 20 0RF lorazepam 1 mg tablet 1 mg PO TID Interventions: ED Discharge Assessment Last Done: 12/19/23 23:11 Discharge Date/Time: 12/19/23 23:12 Print Language: Swazi
[2023-12-19 20:57] LABS: IDNOW Serial# 08D9AD1C
[2023-12-19 20:58] LABS: Strep A Nucleic Acid Negative (Negative)
[2023-12-19 21:24] LABS: Influenza A PCR NEGATIVE (Negative); Influenza B PCR NEGATIVE (Negative); Resp Syncy Virus RNA Qual PCR NEGATIVE (Negative); SARS COV2 PCR INHOUSE NEGATIVE (Negative)
--- NOTE | 2023-12-19 22:33 | PC.NURSE ---
No response in the WR at 2230
[2023-12-19] MEDS: Doxycycline Monohydrate 100 MG CAPSULE PO (23:07)
[2023-12-19 23:11] VITALS: BP 114/85; PULSE 89; RESP 16; TEMP 36.7; O2SAT 99
== END 2023-12-19 23:12 | disposition home or self-care (01) ==
PROVIDERS: Physician Assistant; Emergency Provider Internal Medicine; PCP Internal Medicine
DX: J34.89 Other specified disorders of nose and nasal sinuses (principal); B95.8 Unspecified staphylococcus as the cause of diseases classified elsewhere; Z03.818 Encounter for observation for suspected exposure to other biological agents ruled out; E11.9 Type 2 diabetes mellitus without complications; F17.210 Nicotine dependence, cigarettes, uncomplicated; F19.10 Other psychoactive substance abuse, uncomplicated; Z79.899 Other long term (current) drug therapy; Z79.82 Long term (current) use of aspirin; Z79.4 Long term (current) use of insulin; Z79.84 Long term (current) use of oral hypoglycemic drugs; Z79.02 Long term (current) use of antithrombotics/antiplatelets
CPT/HCPCS: 0241U; 87651; 99282; 99283

== ENCOUNTER 2023-12-19 23:51 | Emergency (ER) | payer MEDICARE, MEDICAID, SELFPAY ==
[2023-12-20 00:02] VITALS: BP 93/62; PULSE 85; RESP 18; TEMP 36.4; O2SAT 99; BMI 27.3
--- NOTE | 2023-12-20 00:35 | ED_ITS ---
HPI - Psych General Chief Complaint: Behavioral Concerns Stated Complaint: crisis Time Seen by Provider: 12/20/23 00:35 Source: patient Mode of arrival: ambulatory Limitations: no limitations History of Present Illness ED Provider: garrett ONTIVEROS Narrative: Patient's history of depression history of suicidal attempt in the past was just seen earlier today for the nose pain history of drug abuse last use was about 4 months ago was talking to his and got upset patient is homeless for last 1 month feel increasing depressed and suicidal requesting respite patient does have history of suicidal attempt about 10 years ago and he cut his right side of the neck Related Data Home Medications ?Medication ?Instructions ?Recorded ?Confirmed lorazepam 1 mg tablet 1 mg PO TID 06/25/23 11/28/23 omeprazole 20 mg capsule,delayed 20 mg PO BEDTIME 11/29/23 11/29/23 release Previous Rx's ?Medication ?Instructions ?Recorded albuterol sulfate 90 mcg/actuation 2 puff inhalation QID PRN wheezing 09/21/23 aerosol inhaler (Ventolin HFA) 300 days #1 inhaler aspirin 81 mg tablet,delayed 81 mg PO DAILY 30 days #30 tabs 09/21/23 release fluticasone propionate 115 2 puff inhalation BID 30 days #1 09/21/23 mcg-salmeterol 21 mcg/actuation inhaler HFA inhaler (Advair HFA) gabapentin 400 mg capsule 400 mg PO BID 30 days #60 caps 09/21/23 insulin glargine 100 unit/mL 15 unit (0.15 mL) subcut BEDTIME 09/21/23 subcutaneous solution 30 days #15 mL metformin 1,000 mg tablet 1,000 mg PO BID 30 days #60 tabs 09/21/23 nicotine (polacrilex) 2 mg gum 4 mg buccal Q2H PRN Nicotine 09/21/23 Cravings 30 days #120 ea paroxetine HCl 30 mg tablet 30 mg PO BID 30 days #60 tabs 09/21/23 rosuvastatin 10 mg tablet 10 mg PO DAILY 30 days #30 tabs 09/21/23 sitagliptin phosphate 100 mg 100 mg PO DAILY 30 days #30 tabs 09/21/23 tablet (Januvia) quetiapine 300 mg tablet 300 mg PO BEDTIME 30 days #30 tabs 12/03/23 risperidone 1 mg tablet 1 mg PO BID@0800,1700 30 days #60 12/03/23 tabs ibuprofen 600 mg tablet 600 mg PO Q8H PRN fever or pain 12/09/23 #20 tabs doxycycline hyclate 100 mg tablet 100 mg PO BID #20 tabs 12/19/23 mupirocin 2 % topical ointment 1 appl topical BID #15 grams 12/19/23 Allergies Allergy/AdvReac Type Severity Reaction Status Date / Time glipizide [GLIPIZIDE] Allergy Intermediate ITCHY Verified 12/20/23 00:05 oxycodone [From TYLOX] AdvReac Intermediate CHEST PAINS Verified 12/20/23 00:05 Review of Systems 2 Review of Systems: Yes all other systems are reviewed and are negative PMFSH Past Medical History Medical History Anxiety Diabetes Social History Social History Household Members: None Housing: Homeless Do you presently have visiting nurse or other home services: No Unable to assess alcohol history related to: Unknown Alcohol intake: current Alcohol intake frequency: a few times a month Alcohol type: beer Patient Tobacco Use Status: Current everyday Tobacco user Tobacco use type: Cigarette Cigarette Packs Per Day: 1 Cigarettes Per Day: 20.0 Years Smoked: 40 Smoked in Last 30 Days: Yes e-Cigarette/Vaping Use: Former Use Second Hand Smoke Exposure: Yes Use of substances other than those prescribed or required for medical reasons: No Substance Use Type: Crack/Cocaine, Prescription Drugs and Caffiene Advance Directives: Yes Advance Directives on File: Yes Advance Directives Date on File: 10/24/21 Do you have a plan to hurt others: No Plan service: No Sexual orientation: Straight/Heterosexual Physical Exam 2 Vital Signs: Vital Signs: Last Vital Signs Temp 97.3 F 12/20/23 06:16 Pulse 80 12/20/23 06:16 Resp 18 12/20/23 06:16 BP 114/60 12/20/23 06:16 Pulse Ox 100 12/20/23 06:16 O2 Del Method Room Air 12/20/23 06:16 BMI result Body Mass Index 27.3 Appearance: Alert. Oriented X3. No acute distress. Eyes: PERRLA, No Nystagmus ENT: Pharynx normal. Oral Mucosa moist Neck: Normal inspection. Neck supple. CVS: Normal heart rate and rhythm. Pulses normal. Respiratory: No respiratory distress. Equal air entry bilateral, no wheezing/rales/rhonchi Abdomen: Soft and nontender. Bowel sounds are present, no mass palpable, no CVA tenderness Skin: Skin warm and dry. Normal skin color. Normal skin turgor. Extremities: No lower extremity edema. No calf tenderness psych: Feel depressed suicidal with plan to cut his neck no hallucination no delusion Neuro: Oriented X 3. No motor deficit. No sensory deficit.No cerebellar signs , cranial nerves II-XII intact Medical Decision Making Medical Decision Making MDM Narrative: 6 am Patient with frequent ED visits initially said he is depressed and suicidal during stay in the ER patient has started saying that he has made it up because it was cold outside on re-evaluation multiple discussions patient denied any SI or significant depression feels okay to go to his residence patient aware that he can come back to the hospital if he feels so Lab Data [facility] Lab Attestation statement: I reviewed the patient's lab results. 12/20/23 01:04 12/20/23 01:04 Labs: Lab Results 12/20/23 Range/Units 01:04 WBC 6.9 (4.8-10.8) X10*3/uL RBC 4.55 L (4.60-5.80) X10*6/uL Hgb 13.3 L (14.0-18.0) g/dl Hct 38.6 L (42.0-52.0) % MCV 84.8 (80.0-98.0) fL MCH 29.2 (27.0-33.0) pg MCHC 34.5 (31.0-36.0) g/dl RDW 12.4 (11.0-16.0) % Plt Count 230 (160-400) X10*3/uL MPV 9.8 (9.4-12.4) fL Immature Gran % (Auto) 0.3 (0.0-0.4) % Neut % (Auto) 55.6 (45-73) % Lymph % (Auto) 34.4 (20-40) % Cuming % (Auto) 9.1 (2-11) % Eos % (Auto) 0.0 (0-4) % Baso % (Auto) 0.6 (0-2) % Lymph # (Auto) 2.4 (1.2-4.9) X10*3/uL Cuming # (Auto) 0.6 (0.1-1.2) X10*3/uL Eos # (Auto) 0.0 (0.0-0.4) X10*3/uL Baso # (Auto) 0.0 (0.0-0.2) X10*3/uL Abs Immat Gran (auto) 0.02 (0.00-0.03) X10*3/uL Absolute Neuts (auto) 3.9 (2.0-8.3) x10*3/uL Absolute Nucleated RBC 0.000 (0.0-0.012) X10*3/uL Nucleated RBC % (auto) 0.0 (0.0-0.2) /100WBC Sodium 138 (135-145) mmol/L Potassium 3.7 (3.3-5.1) mmol/L Chloride 102 (96-108) mmol/L Carbon Dioxide 26 (22-29) mmol/L Anion Gap 14 (12-20) BUN 17 H (9-16) mg/dL Creatinine 0.98 (0.5-1.4) mg/dL Estim Creat Clear Calc 77.7 Estimated GFR > 60 Random Glucose 103 (60-115) mg/dL Calcium 9.7 (8.4-10.2) mg/dL Total Bilirubin 0.3 (0.0-1.0) mg/dL AST 17 (5-37) U/L ALT 18 (0-40) U/L Alkaline Phosphatase 78 (39-117) U/L Total Protein 7.2 (6.5-8.0) g/dL Albumin 3.9 (3.5-5.0) g/dL Urine Opiates Screen Not Detected (Not Detect) Ur Buprenorphine Scrn Not Detected (Not Detect) ng/mL Ur Oxycodone Screen Not Detected (Not Detect) ng/mL Urine Methadone Screen Not Detected (Not Detect) ng/mL Urine Fentanyl Screen Not Detected (Not Detect) Ur Barbiturates Screen Not Detected (Not Detect) Ur Phencyclidine Scrn Not Detected (Not Detect) Ur Amphetamines Screen Not Detected (Not Detect) U Benzodiazepines Scrn Not Detected (Not Detect) Urine Cocaine Screen Not Detected (Not Detect) U Marijuana (THC) Screen Not Detected (Not Detect) Ethyl Alcohol < 10 mg/dL Discharge Plan Discharge Clinical Impression: Mood disorder Patient Disposition: Home, Self-Care Instructions: Mood Disorders (ED) Additional Instructions: Take medication as prescribed and follow up with your therapist Report to ER if if you feel depressed/suicidal Prescriptions: No Action nicotine (polacrilex) 2 mg Gum 4 mg buccal Q2H PRN (Reason: Nicotine Cravings) 30 Days Qty: 120 1RF gabapentin 400 mg Capsule 400 mg PO BID 30 Days Qty: 60 0RF aspirin 81 mg tablet,delayed release (DR/EC) 81 mg PO DAILY 30 Days Qty: 30 0RF paroxetine HCl 30 mg tablet 30 mg PO BID 30 Days Qty: 60 0RF metformin 1,000 mg tablet 1,000 mg PO BID 30 Days Qty: 60 0RF albuterol sulfate [Ventolin HFA] 90 mcg/actuation HFA aerosol inhaler 2 puff INHALATION QID PRN (Reason: wheezing) 300 Days Qty: 1 0RF rosuvastatin 10 mg tablet 10 mg PO DAILY 30 Days Qty: 30 0RF fluticasone propion-salmeterol [Advair HFA] 115-21 mcg/actuation HFA aerosol inhaler 2 puff INHALATION BID 30 Days Qty: 1 0RF Januvia 100 mg tablet 100 mg PO DAILY 30 Days Qty: 30 0RF insulin glargine 100 unit/mL Solution 15 unit subcut BEDTIME 30 Days Qty: 15 0RF omeprazole 20 mg capsule,delayed release(DR/EC) 20 mg PO BEDTIME quetiapine 300 mg Tablet 300 mg PO BEDTIME 30 Days Qty: 30 0RF risperidone 1 mg Tablet 1 mg PO BID@0800,1700 30 Days Qty: 60 0RF ibuprofen 600 mg tablet 600 mg PO Q8H PRN (Reason: fever or pain) Qty: 20 0RF lorazepam 1 mg tablet 1 mg PO TID doxycycline hyclate 100 mg tablet 100 mg PO BID Qty: 20 0RF mupirocin 2 % ointment 1 appl topical BID Qty: 15 0RF Print Language: Portuguese
--- NOTE | 2023-12-20 00:43 | PC.NURSE ---
pt states he is ready to go. informed [facility]
[2023-12-20 01:12] LABS: MANUAL DIFF FLAG NO
[2023-12-20 01:15] LABS: Basophils Percent Auto 0.6 % (0-2); Hematocrit 38.6 % (42.0-52.0); Hemoglobin 13.3 g/dl (14.0-18.0); Imm Gran Abs Auto 0.02 X10*3/uL (0.00-0.03); Imm Gran Pct Auto 0.3 % (0.0-0.4); Lymphocytes Absolute Auto 2.4 X10*3/uL (1.2-4.9); Lymphocytes Percent Auto 34.4 % (20-40); Mean Corpuscular HGB Conc 34.5 g/dl (31.0-36.0); Mean Corpuscular Hemoglobin 29.2 pg (27.0-33.0); Mean Corpuscular Volume 84.8 fL (80.0-98.0); Mean Platelet Volume 9.8 fL (9.4-12.4); Monocytes Absolute Auto 0.6 X10*3/uL (0.1-1.2); Monocytes Percent Auto 9.1 % (2-11); Neutrophils Absolute Auto 3.9 x10*3/uL (2.0-8.3); Neutrophils Percent Auto 55.6 % (45-73); Platelet Count 230 X10*3/uL (160-400); Red Blood Count 4.55 X10*6/uL (4.60-5.80); Red Cell Distribution Width 12.4 % (11.0-16.0); White Blood Count 6.9 X10*3/uL (4.8-10.8)
[2023-12-20 01:30] LABS: Amphetamine Screen Urine Not Detected (Not Detect); Barbiturates, Urine Not Detected (Not Detect); Benzodiazepines Screen Urine Not Detected (Not Detect); Buprenorphine Scr Not Detected (Not Detect); Cannabinoid Screen Urine Not Detected (Not Detect); Cocaine Screen Urine Not Detected (Not Detect); Fentanyl, urine Not Detected (Not Detect); Methadone Screen, Urine Not Detected (Not Detect); Opiate Screen Urine Not Detected (Not Detect); Oxycodone Screen Urine Not Detected (Not Detect); Phencyclidine Screen Urine Not Detected (Not Detect)
[2023-12-20 01:36] LABS: Alanine Aminotransferase 18 U/L (0-40); Albumin Level 3.9 g/dL (3.5-5.0); Alkaline Phosphatase 78 U/L (39-117); Anion Gap 14 (12-20); Aspartate Amino Transferase 17 U/L (5-37); Bilirubin Total 0.3 mg/dL (0.0-1.0); Blood Urea Nitrogen 17 mg/dL (9-16); Calcium 9.7 mg/dL (8.4-10.2); Carbon Dioxide 26 mmol/L (22-29); Chloride 102 mmol/L (96-108); Creatinine Clr Calc Pharmacy 77.7; Estimated Glomerular Filt Rate > 60; Ethanol < 10 mg/dL; Glucose Random 103 mg/dL (60-115); Potassium 3.7 mmol/L (3.3-5.1); Sodium 138 mmol/L (135-145); Total Protein 7.2 g/dL (6.5-8.0)
--- NOTE | 2023-12-20 05:07 | PC.NURSE ---
Pt now denying SI statements. Pt states he lied because he was homeless and didn't want to sleep in the cold. This RN discussing with MD and primary RN concerns as pt has a history of an SI attempt by cutting his neck. Pt states I would rather go to nursing home than stay here. Can I go to nursing home? Pt advised that he needs to be cleared by the Care Team. MD agreeable. Primary RN at bedside attempting to make pt comfortable until pt is able to see Care Team.
--- NOTE | 2023-12-20 05:08 | PC.NURSE ---
pt states he is ready to go home. Pt states, i lied earlier, I was cold and had nowhere to go. I am not suicidal Pt states, you can't make me stay Kiki MILA AVILA spoke with pt, and informed him, he had to stay until cleared by crises. Pt was also informed, that security would be called, if needed.
[2023-12-20 06:16] VITALS: BP 114/60; PULSE 80; RESP 18; TEMP 36.3; O2SAT 100
--- NOTE | 2023-12-20 06:50 | PC.NURSE ---
report given to Feli ZARAGOZA
[2023-12-20 07:31] VITALS: BP 143/56; PULSE 83; RESP 18; TEMP 36.6; O2SAT 99
--- NOTE | 2023-12-20 07:32 | PC.NURSE ---
This RN resumed care of patient at 0700, MD had placed dc, this RN was concerned that careteam had no communicated with patient at this time. Pt and RN had discussion about where he was this morning in terms of his thoughts of harming himself, pt continues to report he does not want to harm himself. Pt plans on going to residential on [address] who is then going to help him get placement. This Rn had pt sign d/c paperwork and got all their belongings from the closet
[2023-12-20 07:38] VITALS: BP 143/56; PULSE 83; RESP 18; TEMP 36.6; O2SAT 99
== END 2023-12-20 07:39 | disposition home or self-care (01) ==
PROVIDERS: Emergency Provider Internal Medicine; PCP Internal Medicine
DX: F33.1 Major depressive disorder, recurrent, moderate (principal); R45.851 Suicidal ideations; F39 Unspecified mood [affective] disorder; Z51.81 Encounter for therapeutic drug level monitoring; Z79.899 Other long term (current) drug therapy
CPT/HCPCS: 36415; 80053; 80307; 85025; 99284

== ENCOUNTER 2023-12-21 02:46 | Emergency (ER) | payer MEDICARE, MEDICAID, SELFPAY ==
--- NOTE | 2023-12-21 | ECG_ITS ---
Test Reason : PALPATATIONS Blood Pressure : / mmHG Vent. Rate : 085 BPM Atrial Rate : 085 BPM P-R Int : 148 ms QRS Dur : 084 ms QT Int : 386 ms P-R-T Axes : 065 061 039 degrees QTc Int : 459 ms Normal sinus rhythm Normal ECG When compared with ECG of 30-NOV-2023 10:49, Nonspecific T wave abnormality, improved in Inferior leads Referred By: Generic ED Physician Electronically Signed By:Dipesh Haq
[2023-12-21 02:48] VITALS: BP 112/72; PULSE 88; O2SAT 99
[2023-12-21 02:51] VITALS: BP 120/72; PULSE 82; RESP 16; TEMP 36.6; O2SAT 99
[2023-12-21 02:54] VITALS: PULSE 72
--- NOTE | 2023-12-21 05:44 | ED.ARRPALP ---
HPI - Arrhythmia/Palpitations General Chief Complaint: Arrhythmia/Palpitations Stated Complaint: CP 5/10 from walking reproducible w/ palation Time Seen by Provider: 12/21/23 03:02 Source: patient Mode of arrival: ambulatory Limitations: no limitations History of Present Illness ED Provider: garrett ONTIVEROS narrative: Patient has been here multiple times homeless for last 1 month history of depression cocaine says did not use cocaine for few was walking from [place] the [facility] feeling patient was here yesterday for different complaints no cardiac arrhythmias noticed on arrival Related Data Home Medications ?Medication ?Instructions ?Recorded ?Confirmed lorazepam 1 mg tablet 1 mg PO TID 06/25/23 11/28/23 omeprazole 20 mg capsule,delayed 20 mg PO BEDTIME 11/29/23 11/29/23 release Previous Rx's ?Medication ?Instructions ?Recorded albuterol sulfate 90 mcg/actuation 2 puff inhalation QID PRN wheezing 09/21/23 aerosol inhaler (Ventolin HFA) 300 days #1 inhaler aspirin 81 mg tablet,delayed 81 mg PO DAILY 30 days #30 tabs 09/21/23 release fluticasone propionate 115 2 puff inhalation BID 30 days #1 09/21/23 mcg-salmeterol 21 mcg/actuation inhaler HFA inhaler (Advair HFA) gabapentin 400 mg capsule 400 mg PO BID 30 days #60 caps 09/21/23 insulin glargine 100 unit/mL 15 unit (0.15 mL) subcut BEDTIME 09/21/23 subcutaneous solution 30 days #15 mL metformin 1,000 mg tablet 1,000 mg PO BID 30 days #60 tabs 09/21/23 nicotine (polacrilex) 2 mg gum 4 mg buccal Q2H PRN Nicotine 09/21/23 Cravings 30 days #120 ea paroxetine HCl 30 mg tablet 30 mg PO BID 30 days #60 tabs 09/21/23 rosuvastatin 10 mg tablet 10 mg PO DAILY 30 days #30 tabs 09/21/23 sitagliptin phosphate 100 mg 100 mg PO DAILY 30 days #30 tabs 09/21/23 tablet (Januvia) quetiapine 300 mg tablet 300 mg PO BEDTIME 30 days #30 tabs 12/03/23 risperidone 1 mg tablet 1 mg PO BID@0800,1700 30 days #60 12/03/23 tabs ibuprofen 600 mg tablet 600 mg PO Q8H PRN fever or pain 12/09/23 #20 tabs doxycycline hyclate 100 mg tablet 100 mg PO BID #20 tabs 12/19/23 mupirocin 2 % topical ointment 1 appl topical BID #15 grams 12/19/23 Allergies Allergy/AdvReac Type Severity Reaction Status Date / Time glipizide [GLIPIZIDE] Allergy Intermediate ITCHY Verified 12/21/23 02:53 oxycodone [From TYLOX] AdvReac Intermediate CHEST PAINS Verified 12/21/23 02:53 Review of Systems Review of Systems: Yes all other systems are reviewed and are negative PMFSH Past Medical History Medical History Anxiety Diabetes Social History Social History Household Members: None Housing: Homeless Do you presently have visiting nurse or other home services: No Unable to assess alcohol history related to: Unknown Alcohol intake: current Alcohol intake frequency: a few times a month Alcohol type: beer Patient Tobacco Use Status: Current everyday Tobacco user Tobacco use type: Cigarette Cigarette Packs Per Day: 1 Cigarettes Per Day: 20.0 Years Smoked: 40 Smoked in Last 30 Days: No e-Cigarette/Vaping Use: Former Use Second Hand Smoke Exposure: Yes Use of substances other than those prescribed or required for medical reasons: No Substance Use Type: Crack/Cocaine, Prescription Drugs and Caffiene Advance Directives: Yes Advance Directives on File: Yes Advance Directives Date on File: 10/24/21 Do you have a plan to hurt others: No Plan service: No Sexual orientation: Straight/Heterosexual Physical Exam Vital Signs: Vital Signs: Last Vital Signs Temp 97.9 F 12/21/23 02:51 Pulse 82 12/21/23 02:51 Resp 16 12/21/23 02:51 BP 120/72 12/21/23 02:51 Pulse Ox 99 12/21/23 02:51 O2 Del Method Room Air 12/21/23 02:51 BMI result Body Mass Index 2.7 Appearance: Alert. Oriented X3. No acute distress. Eyes: PERRLA, No Nystagmus ENT: Pharynx normal. Oral Mucosa moist Neck: Normal inspection. Neck supple. CVS: Normal heart rate and rhythm. Pulses normal. Respiratory: No respiratory distress. Equal air entry bilateral, no wheezing/rales/rhonchi Abdomen: Soft and nontender. Bowel sounds are present, no mass palpable, no CVA tenderness Skin: Skin warm and dry. Normal skin color. Normal skin turgor. Extremities: No lower extremity edema. No calf tenderness Neuro: Oriented X 3. No motor deficit. No sensory deficit.No cerebellar signs , cranial nerves II-XII intact Medical Decision Making Medical Decision Making [facility] Narrative: Patient homeless comes here for nonspecific complaints later he says he came here to sleep as pretty cold outside EKG without any arrhythmias equipment monitor phototypesetting without any arrhythmias Independent Interpretation I performed an independent interpretation of an: EKG Interpretation: Normal sinus rhythm heart rate 85 beats per minute normal interval normal axis no acute ST-T changes no acute ischemia Discharge Plan Discharge Clinical Impression: Anxiety, Palpitations Patient Disposition: Home, Self-Care Instructions: Heart Palpitations (ED), Anxiety (ED) Additional Instructions: No palpitation noticed in the ER Follow up with your PCP Prescriptions: No Action nicotine (polacrilex) 2 mg Gum 4 mg buccal Q2H PRN (Reason: Nicotine Cravings) 30 Days Qty: 120 1RF gabapentin 400 mg Capsule 400 mg PO BID 30 Days Qty: 60 0RF aspirin 81 mg tablet,delayed release (DR/EC) 81 mg PO DAILY 30 Days Qty: 30 0RF paroxetine HCl 30 mg tablet 30 mg PO BID 30 Days Qty: 60 0RF metformin 1,000 mg tablet 1,000 mg PO BID 30 Days Qty: 60 0RF albuterol sulfate [Ventolin HFA] 90 mcg/actuation HFA aerosol inhaler 2 puff INHALATION QID PRN (Reason: wheezing) 300 Days Qty: 1 0RF rosuvastatin 10 mg tablet 10 mg PO DAILY 30 Days Qty: 30 0RF fluticasone propion-salmeterol [Advair HFA] 115-21 mcg/actuation HFA aerosol inhaler 2 puff INHALATION BID 30 Days Qty: 1 0RF Januvia 100 mg tablet 100 mg PO DAILY 30 Days Qty: 30 0RF insulin glargine 100 unit/mL Solution 15 unit subcut BEDTIME 30 Days Qty: 15 0RF omeprazole 20 mg capsule,delayed release(DR/EC) 20 mg PO BEDTIME quetiapine 300 mg Tablet 300 mg PO BEDTIME 30 Days Qty: 30 0RF risperidone 1 mg Tablet 1 mg PO BID@0800,1700 30 Days Qty: 60 0RF ibuprofen 600 mg tablet 600 mg PO Q8H PRN (Reason: fever or pain) Qty: 20 0RF lorazepam 1 mg tablet 1 mg PO TID doxycycline hyclate 100 mg tablet 100 mg PO BID Qty: 20 0RF mupirocin 2 % ointment 1 appl topical BID Qty: 15 0RF Interventions: ED Discharge Assessment Last Done: 12/21/23 05:55 Print Language: Andorran
[2023-12-21 05:55] VITALS: BP 120/72; PULSE 82; RESP 16; TEMP 36.6; O2SAT 99
== END 2023-12-21 05:56 | disposition home or self-care (01) ==
PROVIDERS: Emergency Provider Internal Medicine
DX: R00.2 Palpitations (principal); F41.9 Anxiety disorder, unspecified; Z79.899 Other long term (current) drug therapy
CPT/HCPCS: 93005; 99283; 99285

== ENCOUNTER → 2023-12-21 02:46 | Outpatient (BNV) | payer MEDICARE, MEDICAID, SELFPAY | PROVIDERS: Emergency Provider Internal Medicine; Visit Provider Internal Medicine Cardiovascular Disease | DX: R00.2 Palpitations (principal) | CPT/HCPCS: 93010 ==

== ENCOUNTER 2023-12-23 12:31 | Emergency (ER) | payer MEDICARE, MEDICAID, SELFPAY ==
[2023-12-23 12:42] VITALS: BP 115/60; PULSE 80; RESP 16; TEMP 36.4; O2SAT 95; BMI 27.2
--- NOTE | 2023-12-23 12:43 | MHC.CARE ---
Elba from [facility] co-response called to report that Pt was being sent to the ED for medical concerns. She stated that Pt was endorsing hallucinations and believed they were due to cannabis that he smoked which was laced with something. Andreas is reportedly asking to admit to [facility]. Of note, Pt's is at [facility] and he would be unable to admit there. Elba does not believe that Pt requires [facility] level of care.
--- NOTE | 2023-12-23 12:48 | ECG_ITS ---
Test Reason : AMS Blood Pressure : / mmHG Vent. Rate : 076 BPM Atrial Rate : 076 BPM P-R Int : 142 ms QRS Dur : 088 ms QT Int : 400 ms P-R-T Axes : 060 050 008 degrees QTc Int : 450 ms Normal sinus rhythm Cannot rule out Inferior infarct , age undetermined Abnormal ECG When compared with ECG of 21-DEC-2023 02:46, No significant change was found Referred By: Rita Marion Electronically Signed By:Dipesh Haq
--- NOTE | 2023-12-23 12:56 | PC.NURSE ---
patient changed over into hospital attire, belongings sent to [facility]
--- NOTE | 2023-12-23 13:09 | MHC.EDTECH ---
Patient belongings with security in [facility].
--- NOTE | 2023-12-23 13:22 | ED_ITS ---
HPI - Psych General Chief Complaint: ETOH/Substance Use Stated Complaint: ?LACED WEED/ETOH USE PER EMS Time Seen by Provider: 12/23/23 12:43 Source: patient, EMS and old records reviewed Mode of arrival: EMS Limitations: no limitations History of Present Illness ED Provider: MICHAEL HPI Narrative: 58 yo male with PMH of DM, mental health ds, substance abuse here with c/o wanting to get detox help after sniffing cocaine today and using drugs. He denies trauma or falls. He wants a 3 day detox. NO SI/HI MD complaint: substance abuse Onset (ago): year(s) Duration: intermittent History of same: Yes Relieving factors: none Exacerbating factors: drug use Context: recent drug abuse Associated psychiatric symptoms: none Associated symptoms: denies other symptoms Treatments prior to arrival: none Related Data Home Medications ?Medication ?Instructions ?Recorded ?Confirmed lorazepam 1 mg tablet 1 mg PO TID 06/25/23 11/28/23 omeprazole 20 mg capsule,delayed 20 mg PO BEDTIME 11/29/23 11/29/23 release Previous Rx's ?Medication ?Instructions ?Recorded albuterol sulfate 90 mcg/actuation 2 puff inhalation QID PRN wheezing 09/21/23 aerosol inhaler (Ventolin HFA) 300 days #1 inhaler aspirin 81 mg tablet,delayed 81 mg PO DAILY 30 days #30 tabs 09/21/23 release fluticasone propionate 115 2 puff inhalation BID 30 days #1 09/21/23 mcg-salmeterol 21 mcg/actuation inhaler HFA inhaler (Advair HFA) gabapentin 400 mg capsule 400 mg PO BID 30 days #60 caps 09/21/23 insulin glargine 100 unit/mL 15 unit (0.15 mL) subcut BEDTIME 09/21/23 subcutaneous solution 30 days #15 mL metformin 1,000 mg tablet 1,000 mg PO BID 30 days #60 tabs 09/21/23 nicotine (polacrilex) 2 mg gum 4 mg buccal Q2H PRN Nicotine 09/21/23 Cravings 30 days #120 ea paroxetine HCl 30 mg tablet 30 mg PO BID 30 days #60 tabs 09/21/23 rosuvastatin 10 mg tablet 10 mg PO DAILY 30 days #30 tabs 09/21/23 sitagliptin phosphate 100 mg 100 mg PO DAILY 30 days #30 tabs 09/21/23 tablet (Januvia) quetiapine 300 mg tablet 300 mg PO BEDTIME 30 days #30 tabs 12/03/23 risperidone 1 mg tablet 1 mg PO BID@0800,1700 30 days #60 12/03/23 tabs ibuprofen 600 mg tablet 600 mg PO Q8H PRN fever or pain 12/09/23 #20 tabs doxycycline hyclate 100 mg tablet 100 mg PO BID #20 tabs 12/19/23 mupirocin 2 % topical ointment 1 appl topical BID #15 grams 12/19/23 Allergies Allergy/AdvReac Type Severity Reaction Status Date / Time glipizide [GLIPIZIDE] Allergy Intermediate ITCHY Verified 12/23/23 12:44 oxycodone [From TYLOX] AdvReac Intermediate CHEST PAINS Verified 12/23/23 12:44 Review of Systems 2 Review of Systems: Constitutional : No Fever, No Chills ENT/Mouth : No Ear Pain, No Nasal Congestion, No sore throat Eyes: No Eye Pain, No Swelling, No Redness Cardiovascular : No Chest Pain, No SOB Respiratory : No Cough, No Sputum, No Dyspnea Gastrointestinal : No Nausea, No Vomiting, No Diarrhea, No Hematochezia, No Melena Genitourinary : No Dysuria, No Urinary Frequency, No Hematuria Musculoskeletal : No Myalgias Skin : No Skin Lesions, No rash Neuro : No Weakness, No Numbness, No Paresthesias, No Dizziness, No Headache Psych : positive Anxiety, positive Depression, no SI/HI All other systems reviewed and are negative [facility] Past Medical History Attestation statement: The following information was validated with the patient. Source: old records reviewed Medical History Anxiety Diabetes Social History Social History Household Members: None Housing: Homeless Do you presently have visiting nurse or other home services: No Unable to assess alcohol history related to: Unknown Alcohol intake: current Alcohol intake frequency: a few times a month Alcohol type: beer Patient Tobacco Use Status: Current everyday Tobacco user Tobacco use type: Cigarette Cigarette Packs Per Day: 1 Cigarettes Per Day: 20.0 Years Smoked: 40 e-Cigarette/Vaping Use: Former Use Second Hand Smoke Exposure: Yes Substance Use Type: Crack/Cocaine, Prescription Drugs and Caffiene Advance Directives Date on File: 10/24/21 service: No Sexual orientation: Straight/Heterosexual Physical Exam 2 Vital Signs: Vital Signs: Last Vital Signs Temp 97.6 F 12/23/23 12:42 Pulse 80 12/23/23 12:42 Resp 16 12/23/23 12:42 BP 115/60 12/23/23 12:42 Pulse Ox 95 12/23/23 12:42 O2 Del Method Room Air 12/23/23 12:42 BMI result Body Mass Index 27.2 Appearance: Alert. Oriented X3. No acute distress. Eyes: Pupils equal, round and reactive to light. ENT: Pharynx normal. Neck: Normal inspection. Neck supple. CVS: Normal heart rate and rhythm. Pulses normal. Respiratory: No respiratory distress. Breath sounds normal. Abdomen: Soft and nontender. Skin: Skin warm and dry. Normal skin color. Normal skin turgor. Extremities: No lower extremity edema. No calf ttp Neuro: Oriented X 3. No motor deficit. No sensory deficit. Cn2-12 intact Medical Decision Making Medical Decision Making MDM Narrative: 58 yo male with PMH of DM, mental health ds, substance abuse here with c/o wanting detox for his drug abuse no trauma no SI/HI he will see addiction medicine and can be DC if work up negative and they do not have a bed Differential Diagnosis Differential Diagnoses: The differential diagnosis associated with the presentation includes substance abuse Admission/Observation Consideration of admission/observation: Escalation of care including admission/observation considered phsycian observation started at 212pm pending addiction medicine Consult Healthcare Provider Management of the patient was discussed with: Health Occupations Instructor Lab Data [facility] Lab Attestation statement: I reviewed the patient's lab results. 12/23/23 13:19 12/23/23 13:19 Labs: Lab Results 12/23/23 Range/Units 13:19 WBC 6.7 (4.8-10.8) X10*3/uL RBC 4.52 L (4.60-5.80) X10*6/uL Hgb 13.3 L (14.0-18.0) g/dl Hct 37.7 L (42.0-52.0) % MCV 83.4 (80.0-98.0) fL MCH 29.4 (27.0-33.0) pg MCHC 35.3 (31.0-36.0) g/dl RDW 12.4 (11.0-16.0) % Plt Count 235 (160-400) X10*3/uL MPV 9.5 (9.4-12.4) fL Immature Gran % (Auto) 0.3 (0.0-0.4) % Neut % (Auto) 60.9 (45-73) % Lymph % (Auto) 27.5 (20-40) % [place] % (Auto) 10.7 (2-11) % Eos % (Auto) 0.0 (0-4) % Baso % (Auto) 0.6 (0-2) % Lymph # (Auto) 1.9 (1.2-4.9) X10*3/uL [place] # (Auto) 0.7 (0.1-1.2) X10*3/uL Eos # (Auto) 0.0 (0.0-0.4) X10*3/uL Baso # (Auto) 0.0 (0.0-0.2) X10*3/uL Abs Immat Gran (auto) 0.02 (0.00-0.03) X10*3/uL Absolute Neuts (auto) 4.1 (2.0-8.3) x10*3/uL Absolute Nucleated RBC 0.000 (0.0-0.012) X10*3/uL Nucleated RBC % (auto) 0.0 (0.0-0.2) /100WBC Sodium 139 (135-145) mmol/L Potassium 4.0 (3.3-5.1) mmol/L Chloride 105 (96-108) mmol/L Carbon Dioxide 26 (22-29) mmol/L Anion Gap 12 (12-20) BUN 23 H (9-16) mg/dL Creatinine 0.95 (0.5-1.4) mg/dL Estim Creat Clear Calc 80.2 Estimated GFR > 60 Random Glucose 138 H (60-115) mg/dL Calcium 9.4 (8.4-10.2) mg/dL Total Bilirubin 0.5 (0.0-1.0) mg/dL Direct Bilirubin 0.2 (0.0-0.5) mg/dL AST 63 H (5-37) U/L ALT 44 H (0-40) U/L Alkaline Phosphatase 81 (39-117) U/L Total Protein 7.2 (6.5-8.0) g/dL Albumin 3.9 (3.5-5.0) g/dL Ethyl Alcohol < 10 mg/dL Independent Interpretation I performed an independent interpretation of an: EKG Interpretation: Rate: 76 Rhythm: NSR [place]: normal Normal P waves. Normal [place]. Normal QRS complex. ST T wave : normal no JOSE CARLOS qTC: 450 prior studies: no acute ischemia The study has been interpreted contemporaneously by me. . External Record Review External record reviewed: Inpatient record Social Determinants Patient?s care significantly limited by Social Determinants of Health including: Inadequate housing, Low income, Problems related to primary support group and Unemployment Discharge Plan Discharge Clinical Impression: Cocaine use disorder Patient Disposition: Still a Patient Instructions: Cocaine Abuse (ED) Additional Instructions: please follow up and continue to call detox centers return for any worsening symptoms or concerns Prescriptions: No Action nicotine (polacrilex) 2 mg Gum 4 mg buccal Q2H PRN (Reason: Nicotine Cravings) 30 Days Qty: 120 1RF gabapentin 400 mg Capsule 400 mg PO BID 30 Days Qty: 60 0RF aspirin 81 mg tablet,delayed release (DR/EC) 81 mg PO DAILY 30 Days Qty: 30 0RF paroxetine HCl 30 mg tablet 30 mg PO BID 30 Days Qty: 60 0RF metformin 1,000 mg tablet 1,000 mg PO BID 30 Days Qty: 60 0RF albuterol sulfate [Ventolin HFA] 90 mcg/actuation HFA aerosol inhaler 2 puff INHALATION QID PRN (Reason: wheezing) 300 Days Qty: 1 0RF rosuvastatin 10 mg tablet 10 mg PO DAILY 30 Days Qty: 30 0RF fluticasone propion-salmeterol [Advair HFA] 115-21 mcg/actuation HFA aerosol inhaler 2 puff INHALATION BID 30 Days Qty: 1 0RF Januvia 100 mg tablet 100 mg PO DAILY 30 Days Qty: 30 0RF insulin glargine 100 unit/mL Solution 15 unit subcut BEDTIME 30 Days Qty: 15 0RF omeprazole 20 mg capsule,delayed release(DR/EC) 20 mg PO BEDTIME quetiapine 300 mg Tablet 300 mg PO BEDTIME 30 Days Qty: 30 0RF risperidone 1 mg Tablet 1 mg PO BID@0800,1700 30 Days Qty: 60 0RF ibuprofen 600 mg tablet 600 mg PO Q8H PRN (Reason: fever or pain) Qty: 20 0RF lorazepam 1 mg tablet 1 mg PO TID doxycycline hyclate 100 mg tablet 100 mg PO BID Qty: 20 0RF mupirocin 2 % ointment 1 appl topical BID Qty: 15 0RF Print Language: Yemeni
[2023-12-23 13:23] LABS: MANUAL DIFF FLAG NO
[2023-12-23 13:26] LABS: Basophils Percent Auto 0.6 % (0-2); Hematocrit 37.7 % (42.0-52.0); Hemoglobin 13.3 g/dl (14.0-18.0); Imm Gran Abs Auto 0.02 X10*3/uL (0.00-0.03); Imm Gran Pct Auto 0.3 % (0.0-0.4); Lymphocytes Absolute Auto 1.9 X10*3/uL (1.2-4.9); Lymphocytes Percent Auto 27.5 % (20-40); Mean Corpuscular HGB Conc 35.3 g/dl (31.0-36.0); Mean Corpuscular Hemoglobin 29.4 pg (27.0-33.0); Mean Corpuscular Volume 83.4 fL (80.0-98.0); Mean Platelet Volume 9.5 fL (9.4-12.4); Monocytes Absolute Auto 0.7 X10*3/uL (0.1-1.2); Monocytes Percent Auto 10.7 % (2-11); Neutrophils Absolute Auto 4.1 x10*3/uL (2.0-8.3); Neutrophils Percent Auto 60.9 % (45-73); Platelet Count 235 X10*3/uL (160-400); Red Blood Count 4.52 X10*6/uL (4.60-5.80); Red Cell Distribution Width 12.4 % (11.0-16.0); White Blood Count 6.7 X10*3/uL (4.8-10.8)
[2023-12-23 13:40] LABS: Alanine Aminotransferase 44 U/L (0-40); Albumin Level 3.9 g/dL (3.5-5.0); Alkaline Phosphatase 81 U/L (39-117); Anion Gap 12 (12-20); Aspartate Amino Transferase 63 U/L (5-37); Bilirubin Direct 0.2 mg/dL (0.0-0.5); Bilirubin Total 0.5 mg/dL (0.0-1.0); Blood Urea Nitrogen 23 mg/dL (9-16); Calcium 9.4 mg/dL (8.4-10.2); Carbon Dioxide 26 mmol/L (22-29); Chloride 105 mmol/L (96-108); Creatinine Clr Calc Pharmacy 80.2; Estimated Glomerular Filt Rate > 60; Ethanol < 10 mg/dL; Glucose Random 138 mg/dL (60-115); Sodium 139 mmol/L (135-145); Total Protein 7.2 g/dL (6.5-8.0)
[2023-12-23 14:04] VITALS: BP 106/59; PULSE 70; RESP 16; TEMP 36.8; O2SAT 95
--- NOTE | 2023-12-23 14:05 | MHC.EDTECH ---
Patient moved to ED22H from ED3
--- NOTE | 2023-12-23 15:27 | MHC.RECOVRN ---
Pt has not provided urine yet for UDS. UDS must be completed prior to referrals for ATS. RN aware.
--- NOTE | 2023-12-23 15:36 | PC.NURSE ---
patient ambulated with this RN to bathroom, patient sleepy. gave urine sample
[2023-12-23 16:06] LABS: Amphetamine Screen Urine Not Detected (Not Detect); Barbiturates, Urine Not Detected (Not Detect); Benzodiazepines Screen Urine Not Detected (Not Detect); Buprenorphine Scr Not Detected (Not Detect); Cannabinoid Screen Urine POSITIVE (Not Detect); Cocaine Screen Urine POSITIVE (Not Detect); Fentanyl, urine Not Detected (Not Detect); Methadone Screen, Urine Not Detected (Not Detect); Opiate Screen Urine Not Detected (Not Detect); Oxycodone Screen Urine Not Detected (Not Detect); Phencyclidine Screen Urine Not Detected (Not Detect)
[2023-12-23 16:56] VITALS: BP 130/71; PULSE 76; RESP 16; TEMP 36.2; O2SAT 100
--- NOTE | 2023-12-23 17:17 | MHC.RECOVSUP ---
? Reason for consult Recovery support o Current location: ED22H o Identified substance use concern: Cocaine - Seeking ATS (detox) - Support ? Intervention: o Community resources provided o Harm reduction discussion ? Plan: o Patient to follow up with [facility] after discharge ? Additional information: Met with Patient and he stated that he needed to detox off a drug that was given to him a friend and was lace with something else that he knows nothing about but he never felt like that before nor does he want too So He ask that to leave when he felt better.
== END 2023-12-23 16:56 | disposition home or self-care (01) ==
PROVIDERS: Emergency Provider Emergency Medicine
DX: F14.10 Cocaine abuse, uncomplicated (principal); F19.10 Other psychoactive substance abuse, uncomplicated; E11.9 Type 2 diabetes mellitus without complications; R44.0 Auditory hallucinations; F33.1 Major depressive disorder, recurrent, moderate; F17.210 Nicotine dependence, cigarettes, uncomplicated; Z59.00 Homelessness unspecified; Z79.4 Long term (current) use of insulin; Z79.84 Long term (current) use of oral hypoglycemic drugs; Z79.82 Long term (current) use of aspirin; Z79.02 Long term (current) use of antithrombotics/antiplatelets; Z79.899 Other long term (current) drug therapy
CPT/HCPCS: 36415; 80048; 80076; 80307; 85025; 93005; 99284

== ENCOUNTER → 2023-12-23 12:48 | Outpatient (BNV) | payer MEDICARE, MEDICAID, SELFPAY | PROVIDERS: Emergency Provider Emergency Medicine; Visit Provider Internal Medicine Cardiovascular Disease | DX: R41.82 Altered mental status, unspecified (principal); R94.31 Abnormal electrocardiogram [ECG] [EKG] | CPT/HCPCS: 93010 ==

== ENCOUNTER 2023-12-24 22:22 | Emergency (ER) | payer MEDICARE, MEDICAID, SELFPAY ==
[2023-12-24 22:24] VITALS: BP 126/74; PULSE 90; O2SAT 97
[2023-12-24 22:33] VITALS: BP 114/63; PULSE 87; RESP 16; TEMP 36.2; O2SAT 98; BMI 24.2
--- NOTE | 2023-12-24 22:44 | ECG_ITS ---
Test Reason : CP Blood Pressure : / mmHG Vent. Rate : 088 BPM Atrial Rate : 088 BPM P-R Int : 150 ms QRS Dur : 084 ms QT Int : 388 ms P-R-T Axes : 058 052 038 degrees QTc Int : 469 ms Normal sinus rhythm Cannot rule out Inferior infarct (cited on or before 23-DEC-2023) Abnormal ECG When compared with ECG of 23-DEC-2023 12:53, No significant change was found Referred By: Generic ED Physician Electronically Signed By:Dipesh Haq
--- NOTE | 2023-12-24 22:45 | MHC.EDTECH ---
Patient BIBA,security at bedside to assist with changeover,patient placed in crisis attire,EKG completed per order and signed by provider,vitals taken,belonging list completed,all belongings locked in [facility] ROOM, sitter at bedside for safety
[2023-12-24 23:04] LABS: MANUAL DIFF FLAG NO
--- NOTE | 2023-12-24 23:04 | PC.NURSE ---
Patient's belongings in [facility]
[2023-12-24 23:06] LABS: Basophils Percent Auto 0.5 % (0-2); Hematocrit 38.3 % (42.0-52.0); Hemoglobin 13.1 g/dl (14.0-18.0); Imm Gran Abs Auto 0.02 X10*3/uL (0.00-0.03); Imm Gran Pct Auto 0.3 % (0.0-0.4); Lymphocytes Absolute Auto 1.5 X10*3/uL (1.2-4.9); Lymphocytes Percent Auto 19.6 % (20-40); Mean Corpuscular HGB Conc 34.2 g/dl (31.0-36.0); Mean Corpuscular Hemoglobin 28.5 pg (27.0-33.0); Mean Corpuscular Volume 83.3 fL (80.0-98.0); Mean Platelet Volume 9.8 fL (9.4-12.4); Monocytes Absolute Auto 0.8 X10*3/uL (0.1-1.2); Monocytes Percent Auto 10.5 % (2-11); Neutrophils Absolute Auto 5.2 x10*3/uL (2.0-8.3); Neutrophils Percent Auto 69.1 % (45-73); Platelet Count 276 X10*3/uL (160-400); Red Cell Distribution Width 12.6 % (11.0-16.0); White Blood Count 7.6 X10*3/uL (4.8-10.8)
[2023-12-24 23:23] LABS: Appearance Urine Clear; Color Urine Yellow; Glucose Urine UA Negative (Negative); Leukocyte Esterase Urine Negative (Negative); Nitrite Urine Negative (Negative); Specific Gravity - Urine >= 1.030 (1.005-1.025); Urine Blood Negative (Negative); Urine Ketones Trace mg/dL (Negative); Urine Protein Negative (Neg-Trace)
[2023-12-24 23:23] LABS: Anion Gap 17 (12-20); Blood Urea Nitrogen 29 mg/dL (9-16); Carbon Dioxide 26 mmol/L (22-29); Chloride 100 mmol/L (96-108); Creatinine Clr Calc Pharmacy 61.2; Estimated Glomerular Filt Rate > 60; Ethanol < 10 mg/dL; Glucose Random 158 mg/dL (60-115); Magnesium 1.6 mg/dL (1.6-2.6); Potassium 3.7 mmol/L (3.3-5.1); Sodium 139 mmol/L (135-145)
[2023-12-24 23:25] LABS: Salicylate < 5.0 mg/dL (15-30)
--- NOTE | 2023-12-24 23:29 | ED_ITS ---
HPI - General Adult General Chief complaint: Psychiatric Symptoms Stated complaint: chest pain,crisis Time Seen by Provider: 12/24/23 23:13 Source: patient Mode of arrival: ambulatory Limitations: no limitations History of Present Illness ED Provider: Dr. Taylor Church HPI narrative: Patient comes to the emergency room complaining of chest pain and feeling suicidal. Patient states that he was discharged from [facility] earlier today, patient upset because his is not able to help him. Patient states that he feels depressed. Denies suicide attempt, denies homicidal ideation. Patient admits to using cocaine Related Data Home Medications ?Medication ?Instructions ?Recorded ?Confirmed lorazepam 1 mg tablet 1 mg PO TID 06/25/23 11/28/23 omeprazole 20 mg capsule,delayed 20 mg PO BEDTIME 11/29/23 11/29/23 release Previous Rx's ?Medication ?Instructions ?Recorded albuterol sulfate 90 mcg/actuation 2 puff inhalation QID PRN wheezing 09/21/23 aerosol inhaler (Ventolin HFA) 300 days #1 inhaler aspirin 81 mg tablet,delayed 81 mg PO DAILY 30 days #30 tabs 09/21/23 release fluticasone propionate 115 2 puff inhalation BID 30 days #1 09/21/23 mcg-salmeterol 21 mcg/actuation inhaler HFA inhaler (Advair HFA) gabapentin 400 mg capsule 400 mg PO BID 30 days #60 caps 09/21/23 insulin glargine 100 unit/mL 15 unit (0.15 mL) subcut BEDTIME 09/21/23 subcutaneous solution 30 days #15 mL metformin 1,000 mg tablet 1,000 mg PO BID 30 days #60 tabs 09/21/23 nicotine (polacrilex) 2 mg gum 4 mg buccal Q2H PRN Nicotine 09/21/23 Cravings 30 days #120 ea paroxetine HCl 30 mg tablet 30 mg PO BID 30 days #60 tabs 09/21/23 rosuvastatin 10 mg tablet 10 mg PO DAILY 30 days #30 tabs 09/21/23 sitagliptin phosphate 100 mg 100 mg PO DAILY 30 days #30 tabs 09/21/23 tablet (Januvia) quetiapine 300 mg tablet 300 mg PO BEDTIME 30 days #30 tabs 12/03/23 risperidone 1 mg tablet 1 mg PO BID@0800,1700 30 days #60 12/03/23 tabs ibuprofen 600 mg tablet 600 mg PO Q8H PRN fever or pain 12/09/23 #20 tabs doxycycline hyclate 100 mg tablet 100 mg PO BID #20 tabs 12/19/23 mupirocin 2 % topical ointment 1 appl topical BID #15 grams 12/19/23 Allergies Allergy/AdvReac Type Severity Reaction Status Date / Time glipizide [GLIPIZIDE] Allergy Intermediate ITCHY Verified 12/24/23 22:35 oxycodone [From TYLOX] AdvReac Intermediate CHEST PAINS Verified 12/24/23 22:35 Review of Systems 2 Review of Systems: Constitutional : No Weight loss, No Fever, No Chills, No Night Sweats, No Fatigue, No Malaise ENT/Mouth : No Hearing loss, No Ear Pain, No Nasal Congestion, No Sinus Pain, No Hoarseness, No sore throat, No Rhinorrhea, No Swallowing Difficulty Eyes: No Eye Pain, No Swelling, No Redness, No Foreign Body, No Discharge, No Vision Changes Cardiovascular : complaining of chest pain after using cocaine, No SOB, No Dyspnea on Exertion, No Orthopnea, No Edema, No Palpitations Respiratory : No Cough, No Sputum, No Wheezing, No Smoke Exposure, No Dyspnea Gastrointestinal : No Nausea, No Vomiting, No Diarrhea, No Constipation, No abdominal Pain, No Hematochezia, No Melena Genitourinary : no irregular bleeding, No Dysuria, No Urinary Frequency, No Hematuria, No Urinary Incontinence, No Urgency, No Flank Pain, No Urinary Flow Changes, No Hesitancy Musculoskeletal : No joint pain, No Myalgias, No Joint Swelling Skin : No Skin Lesions, No rash Neuro : No Weakness, No Numbness, No Paresthesias, No Loss of Consciousness, No Dizziness, No Headache Psych : complaining of any anxious, depressed, vague suicide thoughts with no plan, no HI, admits using cocaine Heme/Lymph: No Bruising, No Bleeding,No Lymphadenopathy Endocrine : No Polyuria, No Polydipsia, No Temperature Intolerance PMFSH Past Medical History Medical History Anxiety Diabetes Social History Social History Household Members: None Housing: Homeless Do you presently have visiting nurse or other home services: No Unable to assess alcohol history related to: Unknown Alcohol intake: current Alcohol intake frequency: a few times a month Alcohol type: beer Patient Tobacco Use Status: Current everyday Tobacco user Tobacco use type: Cigarette Cigarette Packs Per Day: 1 Cigarettes Per Day: 20.0 Years Smoked: 40 Smoked in Last 30 Days: No e-Cigarette/Vaping Use: Former Use Second Hand Smoke Exposure: Yes Use of substances other than those prescribed or required for medical reasons: No Substance Use Type: Crack/Cocaine, Prescription Drugs and Caffiene Advance Directives: Yes Advance Directives on File: Yes Advance Directives Date on File: 10/24/21 Do you have a plan to hurt others: No Plan service: No Sexual orientation: Straight/Heterosexual Physical Exam ED Vital Signs: Vital Signs - 24 hr 12/24/23 22:33 12/25/23 01:31 Temperature 97.1 F 97.9 F Pulse Rate 87 89 Respiratory Rate 16 18 Blood Pressure 114/63 126/76 Pulse Oximetry 98 98 Oxygen Delivery Method Room Air Room Air BMI result Body Mass Index 24.2 Const Other: Appearance: Alert. Oriented X3. No acute distress. Eyes: Pupils equal, round and reactive to light. ENT: Pharynx normal. Neck: Normal inspection. Neck supple. No lymph nodes noted. No crepitus CVS: Normal heart rate and rhythm. Pulses normal. Normal S1 and S2 Respiratory: No respiratory distress. Breath sounds normal. No Wheezing. No rales Abdomen: Soft and nontender. No rigidity. No distention. Skin: Skin warm and dry. Normal skin color. Normal skin turgor. Extremities: No lower extremity edema. No Lacerations. No Rash Neuro: Oriented X 3. No motor deficit. No sensory deficit. Moving all extremities. No slurred speech. CN 2 through 12 grossly intact Psych: calm, cooperative, normal affect Medical Decision Making Medical Decision Making MDM Narrative: - my interpretation of labs: Normal sinus rhythm, heart rate 88, no ST segment depression or elevation, no T-wave inversion, QTC 469 - my interpretation of s: Normal hematology, no significant chemistry abnormalities, troponin negative, urinalysis negative for UTI, urine toxicology pending - care team consult pending - physician observation started at 23:30 - care team evaluated the patient, patient will be sent to a program tomorrow, where they have capability of assisting people with homelessness issues. - Patient is not SI or HI, patient is not on a Section 12. Patient to be discharged in the morning. If patient wants to leave before that, he may do so as he is not Section 12 Differential Diagnosis Differential Diagnoses: The differential diagnosis associated with the presentation includes ( anxiety, depression, polysubstance abuse, homeless) Admission/Observation Consideration of admission/observation: Escalation of care including admission/observation considered ( patient under physician observation waiting to be seen by the care team) Lab Data 12/24/23 23:01 12/24/23 23:01 Labs: Lab Results 12/24/23 12/24/23 Range/Units 23:01 23:13 WBC 7.6 (4.8-10.8) X10*3/uL RBC 4.60 (4.60-5.80) X10*6/uL Hgb 13.1 L (14.0-18.0) g/dl Hct 38.3 L (42.0-52.0) % MCV 83.3 (80.0-98.0) fL MCH 28.5 (27.0-33.0) pg MCHC 34.2 (31.0-36.0) g/dl RDW 12.6 (11.0-16.0) % Plt Count 276 (160-400) X10*3/uL MPV 9.8 (9.4-12.4) fL Immature Gran % (Auto) 0.3 (0.0-0.4) % Neut % (Auto) 69.1 (45-73) % Lymph % (Auto) 19.6 L (20-40) % [place] % (Auto) 10.5 (2-11) % Eos % (Auto) 0.0 (0-4) % Baso % (Auto) 0.5 (0-2) % Lymph # (Auto) 1.5 (1.2-4.9) X10*3/uL [place] # (Auto) 0.8 (0.1-1.2) X10*3/uL Eos # (Auto) 0.0 (0.0-0.4) X10*3/uL Baso # (Auto) 0.0 (0.0-0.2) X10*3/uL Abs Immat Gran (auto) 0.02 (0.00-0.03) X10*3/uL Absolute Neuts (auto) 5.2 (2.0-8.3) x10*3/uL Absolute Nucleated RBC 0.000 (0.0-0.012) X10*3/uL Nucleated RBC % (auto) 0.0 (0.0-0.2) /100WBC Sodium 139 (135-145) mmol/L Potassium 3.7 (3.3-5.1) mmol/L Chloride 100 (96-108) mmol/L Carbon Dioxide 26 (22-29) mmol/L Anion Gap 17 (12-20) BUN 29 H (9-16) mg/dL Creatinine 1.20 (0.5-1.4) mg/dL Estim Creat Clear Calc 61.2 Estimated GFR > 60 Random Glucose 158 H (60-115) mg/dL Calcium 9.0 (8.4-10.2) mg/dL Magnesium 1.6 (1.6-2.6) mg/dL Troponin I High Sens 4.0 (<3.5-35.0) ng/L Urine Color Yellow Urine Appearance Clear Urine pH 6.0 (5.0-9.0) Ur Specific [place] >= 1.030 H (1.005-1.025) Urine Protein Negative (Neg-Trace) mg/dL Urine Glucose (UA) Negative (Negative) mg/dL Urine Ketones Trace (Negative) mg/dL Urine Blood Negative (Negative) Urine Nitrite Negative (Negative) Ur Leukocyte Esterase Negative (Negative) Salicylates < 5.0 L (15-30) mg/dL Urine Opiates Screen Not Detected (Not Detect) Ur Buprenorphine Scrn Not Detected (Not Detect) ng/mL Ur Oxycodone Screen Not Detected (Not Detect) ng/mL Urine Methadone Screen Not Detected (Not Detect) ng/mL Urine Fentanyl Screen Not Detected (Not Detect) Ur Barbiturates Screen Not Detected (Not Detect) Ur Phencyclidine Scrn Not Detected (Not Detect) Ur Amphetamines Screen Not Detected (Not Detect) U Benzodiazepines Scrn Not Detected (Not Detect) Urine Cocaine Screen POSITIVE H (Not Detect) U Marijuana (THC) Screen POSITIVE H (Not Detect) Ethyl Alcohol < 10 mg/dL Critical Care Time Critical Care Time Critical Care Time: Yes Total Critical Care Time: 30 Attestation: I have personally provided critical care time. Time includes review of lab data, radiology results, discussion with consultants, and monitoring for potential decompensation. Intervention performed as documented. Discharge Plan Discharge Clinical Impression: Polysubstance abuse, Atypical chest pain Patient Disposition: Still a Patient Prescriptions: No Action nicotine (polacrilex) 2 mg Gum 4 mg buccal Q2H PRN (Reason: Nicotine Cravings) 30 Days Qty: 120 1RF gabapentin 400 mg Capsule 400 mg PO BID 30 Days Qty: 60 0RF aspirin 81 mg tablet,delayed release (DR/EC) 81 mg PO DAILY 30 Days Qty: 30 0RF paroxetine HCl 30 mg tablet 30 mg PO BID 30 Days Qty: 60 0RF metformin 1,000 mg tablet 1,000 mg PO BID 30 Days Qty: 60 0RF albuterol sulfate [Ventolin HFA] 90 mcg/actuation HFA aerosol inhaler 2 puff INHALATION QID PRN (Reason: wheezing) 300 Days Qty: 1 0RF rosuvastatin 10 mg tablet 10 mg PO DAILY 30 Days Qty: 30 0RF fluticasone propion-salmeterol [Advair HFA] 115-21 mcg/actuation HFA aerosol inhaler 2 puff INHALATION BID 30 Days Qty: 1 0RF Januvia 100 mg tablet 100 mg PO DAILY 30 Days Qty: 30 0RF insulin glargine 100 unit/mL Solution 15 unit subcut BEDTIME 30 Days Qty: 15 0RF omeprazole 20 mg capsule,delayed release(DR/EC) 20 mg PO BEDTIME quetiapine 300 mg Tablet 300 mg PO BEDTIME 30 Days Qty: 30 0RF risperidone 1 mg Tablet 1 mg PO BID@0800,1700 30 Days Qty: 60 0RF ibuprofen 600 mg tablet 600 mg PO Q8H PRN (Reason: fever or pain) Qty: 20 0RF lorazepam 1 mg tablet 1 mg PO TID doxycycline hyclate 100 mg tablet 100 mg PO BID Qty: 20 0RF mupirocin 2 % ointment 1 appl topical BID Qty: 15 0RF Interventions: [place]-Suicide Risk Severity Scale Last Done: 12/24/23 22:47 Print Language: Cook Islander
[2023-12-24 23:37] LABS: Amphetamine Screen Urine Not Detected (Not Detect); Barbiturates, Urine Not Detected (Not Detect); Benzodiazepines Screen Urine Not Detected (Not Detect); Buprenorphine Scr Not Detected (Not Detect); Cannabinoid Screen Urine POSITIVE (Not Detect); Cocaine Screen Urine POSITIVE (Not Detect); Fentanyl, urine Not Detected (Not Detect); Methadone Screen, Urine Not Detected (Not Detect); Opiate Screen Urine Not Detected (Not Detect); Oxycodone Screen Urine Not Detected (Not Detect); Phencyclidine Screen Urine Not Detected (Not Detect)
--- NOTE | 2023-12-25 00:28 | PC.NURSE ---
Assumed care for pt at 2300. Pt sleeping at the bedside. No apparent distress noted. Breaths are even regular and unlabored with equal chest rises. 1:1 sitter at bedside. Pending care team evaluation. Monitoring is ongoing.
[2023-12-25 01:31] VITALS: BP 126/76; PULSE 89; RESP 18; TEMP 36.6; O2SAT 98
--- NOTE | 2023-12-25 01:32 | MHC.EDTECH ---
Patient ambulated to the bathroom with a steady gait,vitals taken,sitter at bedside for safety
[2023-12-25] MEDS: Acetaminophen 325 MG TABLET 650 MG PO (03:47)
[2023-12-25] MEDS: Nicotine 21 MG PATCH.TD24 TRANSDERMA (05:51)
[2023-12-25 06:00] VITALS: BP 116/63; PULSE 78; RESP 18; TEMP 36.7; O2SAT 100
--- NOTE | 2023-12-25 07:25 | PC.NURSE ---
Resumed care of pt at 0700. Pt up in bed eating breakfast, denies si/hi at this time. A/ox4, no increased wob/sob, respirations even and unlabored, s1 and s2 heard, abdomen soft, non-tender. No c/o pain at this time. Plan for pt d/c to [facility] @[address] within reach, all needs met at this time.
== END 2023-12-25 08:06 | disposition home or self-care (01) ==
PROVIDERS: Emergency Provider Emergency Medicine; PCP Internal Medicine
DX: R07.89 Other chest pain (principal); R45.851 Suicidal ideations; F14.10 Cocaine abuse, uncomplicated; F17.210 Nicotine dependence, cigarettes, uncomplicated; Z79.899 Other long term (current) drug therapy; Z51.81 Encounter for therapeutic drug level monitoring
CPT/HCPCS: 36415; 80048; 80179; 80307; 81003; 83735; 84484; 85025; 93005; 99285; S9485

== ENCOUNTER → 2023-12-24 22:44 | Outpatient (BNV) | payer MEDICARE, MEDICAID, SELFPAY | PROVIDERS: Emergency Provider Emergency Medicine; PCP Internal Medicine; Visit Provider Internal Medicine Cardiovascular Disease | DX: R07.9 Chest pain, unspecified (principal); R94.31 Abnormal electrocardiogram [ECG] [EKG] | CPT/HCPCS: 93010 ==

== ENCOUNTER 2023-12-26 18:36 | Emergency (ER) | payer MEDICARE, MEDICAID, SELFPAY ==
[2023-12-26 18:39] VITALS: BP 125/59; PULSE 84; RESP 18; TEMP 36.4; O2SAT 99; BMI 25.1
--- NOTE | 2023-12-26 18:47 | ED_ITS ---
HPI - Psych General Chief Complaint: Psychiatric Symptoms Stated Complaint: SI Time Seen by Provider: 12/26/23 19:23 Source: patient Limitations: no limitations History of Present Illness ED Provider: Eleanor Tellez PA-C HPI Narrative: Patient is a 58 year old male with a history of substance-induced psychotic disorder, MDD, cocaine use, and homelessness that presents today with complaints of auditory hallucinations. Patient states that his ex-neighbors, Magdi + Magdi's + Magdi's son, are harassing him and saying they're going to kill him. He mentions that when they were neighbors, these people stole his identity and are the reason he was unable to pay his mortage, subsequently losing his home. Patient has been homeless 1.5mo, and the auditory hallucinations have been worsening since then. They are constant and come from within his head. The harassment gets worse if he doesn't do what the voices tell him to do. The only thing that helps the voices stop is when he is in an enclosed space with the door shut. He was in [facility] x2 days for the same complaint and was d/c this morning. He states his is in a detox facility and their separation/homelessness is causing many arguments between them. His stories are not consistent and patient appears slightly confused. He denies SI/HI, visual hallucinations, and EtOH/drug use. Patient also reports that his feet are sore from walking. Related Data Home Medications ?Medication ?Instructions ?Recorded ?Confirmed lorazepam 1 mg tablet 1 mg PO TID 06/25/23 12/26/23 omeprazole 20 mg capsule,delayed 20 mg PO BEDTIME 11/29/23 12/26/23 release doxycycline hyclate 100 mg tablet 100 mg PO BID 12/26/23 12/26/23 gabapentin 400 mg capsule 300 mg PO BID 12/26/23 12/26/23 Previous Rx's ?Medication ?Instructions ?Recorded albuterol sulfate 90 mcg/actuation 2 puff inhalation QID PRN wheezing 09/21/23 aerosol inhaler (Ventolin HFA) 300 days #1 inhaler aspirin 81 mg tablet,delayed 81 mg PO DAILY 30 days #30 tabs 09/21/23 release fluticasone propionate 115 2 puff inhalation BID 30 days #1 09/21/23 mcg-salmeterol 21 mcg/actuation inhaler HFA inhaler (Advair HFA) insulin glargine 100 unit/mL 15 unit (0.15 mL) subcut BEDTIME 09/21/23 subcutaneous solution 30 days #15 mL metformin 1,000 mg tablet 1,000 mg PO BID 30 days #60 tabs 09/21/23 nicotine (polacrilex) 2 mg gum 4 mg buccal Q2H PRN Nicotine 09/21/23 Cravings 30 days #120 ea paroxetine HCl 30 mg tablet 30 mg PO BID 30 days #60 tabs 09/21/23 rosuvastatin 10 mg tablet 10 mg PO DAILY 30 days #30 tabs 09/21/23 sitagliptin phosphate 100 mg 100 mg PO DAILY 30 days #30 tabs 09/21/23 tablet (Januvia) quetiapine 300 mg tablet 300 mg PO BEDTIME 30 days #30 tabs 12/03/23 risperidone 1 mg tablet 1 mg PO BID@0800,1700 30 days #60 12/03/23 tabs ibuprofen 600 mg tablet 600 mg PO Q8H PRN fever or pain 12/09/23 #20 tabs mupirocin 2 % topical ointment 1 appl topical BID #15 grams 12/19/23 Allergies Allergy/AdvReac Type Severity Reaction Status Date / Time glipizide [GLIPIZIDE] Allergy Intermediate ITCHY Verified 12/26/23 18:41 oxycodone [From TYLOX] AdvReac Intermediate CHEST PAINS Verified 12/26/23 18:41 Review of Systems 2 Review of Systems: Yes all other systems are reviewed and are negative Constitutional: Constitutional: Denies fever(s), Denies headache(s) and Denies weakness Eyes: Eyes: Denies loss of vision ENT: Denies dizziness, Denies headache(s) and Denies nasal discharge Cardiovascular: Cardiovascular: Denies Abdominal Distension, Denies chest pain, Denies syncope, Denies palpitations and Denies dyspnea Respiratory: Respiratory: Denies cough and Denies dyspnea Gastrointestinal: Gastrointestinal: Denies abdominal pain, Denies change in stool character, Denies constipation, Denies diarrhea and Denies nausea Genitourinary: Genitourinary: Denies hematuria, Denies oliguria and Denies difficulty urinating Musculoskeletal: Musculoskeletal: Denies numbness and Denies tingling Neurologic: Denies dizziness, Denies syncope, Denies headache(s), Denies loss of vision, Denies numbness, Denies tingling, Denies tremor(s) and Denies weakness Psychiatric: Psychiatric: Reports anxiety, Reports depression, Reports auditory hallucinations, Denies hopelessness, Reports paranoia, Denies homicidal ideation and Denies suicidal ideation Endocrine: Endocrine: Denies palpitations PMFSH Past Medical History Medical History Anxiety Diabetes Social History Social History Household Members: None Housing: Homeless Do you presently have visiting nurse or other home services: No Unable to assess alcohol history related to: Unknown Alcohol intake: current Alcohol intake frequency: holidays/special occasions only Alcohol type: beer Patient Tobacco Use Status: Current everyday Tobacco user Tobacco use type: Cigarette Cigarette Packs Per Day: 1 Cigarettes Per Day: 20.0 Years Smoked: 40 Smoked in Last 30 Days: Yes e-Cigarette/Vaping Use: Former Use Second Hand Smoke Exposure: Yes Use of substances other than those prescribed or required for medical reasons: No Substance Use Type: Crack/Cocaine, Prescription Drugs and Caffiene Advance Directives: Yes Advance Directives on File: Yes Advance Directives Date on File: 10/24/21 Do you have a plan to hurt others: No Plan service: No Sexual orientation: Straight/Heterosexual Physical Exam 2 Vital Signs: Vital Signs: Last Vital Signs Temp 97.8 F 12/27/23 09:22 Pulse 67 12/27/23 09:22 Resp 16 12/27/23 09:22 BP 130/68 12/27/23 09:22 Pulse Ox 100 12/27/23 09:22 O2 Del Method Room Air 12/27/23 09:22 BMI result Body Mass Index 25.1 Const: General: cooperative, healthy appearing, comfortable and no acute distress Nutritional Appearance: average body habitus O rientation/consciousness: patient oriented x3 Limitations: no limitations HEENT: Head: Yes normocephalic and Yes atraumatic Eyes: General: appearance normal, both eyes and all related structures A lignment and Position: alignment normal Periorbital: periorbital findings normal Conjunctivae: conjunctivae normal EOM: EOMs intact bilaterally Neck: Neck: Yes no meningeal signs Resp: Effort & Inspection: normal respiratory effort Auscultation: clear to auscultation bilaterally Cardio: Jugular venous distension: no JVD Rate: regular rate Rhythm: r egular rhythm Heart sounds: S1 normal heart sound present and S2 normal heart sound present Skin: Other: warm and dry, no rash Neuro: General: patient oriented x3, no meningeal signs, no focal motor deficits and CN's II-XI intact bilaterally Cranial nerves: Yes CN's II-XII intact bilaterally Cognition (Neuro): normal cognition Psych: Other: calm and cooperative Appearance: grossly normal Speech and movement: Normal speech and movement present and Clear speech present Affect: Indifferent affect present Attitude: cooperative Thought content: suicidality, no homicidality and Hallucination(s) present auditory Course Course Course Narrative: This is a Rapid Medical Examination (RME) performed by Rick Perla PA-C in triage. Full HPI, ROS, assessment and treatment plan per primary provider in the Main ED. 58 yo male hx of DM, MDD, polysubstance use here for eval of . admits to auditory hallucinations of someone he met in nursing home stating they are coming to hurt him. Denies SI/HI. currently experiencing homeless. endorses bilateral foot discomfort secondary to walking. Plan: med clearance Reevaluation(s) Reevaluation #1: Patient remained in stable overnight no new complain. History of cocaine use disorder presented with auditory hallucination we are waiting for crisis eval Time: 07:32 Reevaluation #2: seen by crisis cleared for discharge home Time: 10:43 Medical Decision Making Medical Decision Making [facility] Narrative: I Eleanor Tellez PA-C have personally assessed and manage the patient, Skye CANTOR observed and helped to formulate the documentation Patient is a 58 year old male with a history of substance-induced psychotic disorder, MDD, cocaine use, and homelessness that presents today with complaints of auditory hallucinations. Patient states that his ex-neighbors, Magdi + Magdi's + Magdi's son, are harassing him and saying they're going to kill him. He mentions that when they were neighbors, these people stole his identity and are the reason he was unable to pay his mortage, subsequently losing his home. Patient has been homeless 1.5mo, and the auditory hallucinations have been worsening since then. They are constant and come from within his head. The harassment gets worse if he doesn't do what the voices tell him to do. The only thing that helps the voices stop is when he is in an enclosed space with the door shut. He was in [facility] x2 days for the same complaint and was d/c this morning. He states his is in a detox facility and their separation/homelessness is causing many arguments between them. His stories are not consistent and patient appears slightly confused. He denies SI/HI, visual hallucinations, and EtOH/drug use. Patient also reports that his feet are sore from walking. Patient has a history of substance-induced psychotic disorder, MDD, cocaine use, and homelessness. DDx: schizophrenia, schizoaffective disorder, drug/EtOH use or withdrawal, Alzheimer's, infection, brain tumor, dehydration, electrolyte imbalance Plan: Given the history of substance-induced psychotic disorder and the patient having current hallucinations, I believe this is what could be happening at this time. Will check tox screen to rule this out. I also find it reasonable for schizoaffective disorder to be the cause, as the patient is having hallucinations and delusions along with depressive episodes. This makes schizophrenia less likely. Will rule out other causes and monitor patient to assess. Considered MDD, as this is in the patient's history, however given the likelihood of other diagnoses and the fact that this is a chronic issue for the patient, I think this is less likely. Alzheimer's was considered, however given the patient's age and strong suspicion that this is schizoaffective, I believe this is less likely. Will rule out other causes before further assessing. Brain tumor was also considered, however will rule out other causes before assessing for this as well. Infection is possible, however patient has no fevers, no wound or rash, and no recent illness. Will check CBC and CMP to fully rule out. Dehydration and electrolyte imbalances are possible given the patient's lack of housing and nutrition, but considering the hallucinations began before he moved out of his home, I think the other diagnoses are more plausible. Will rule out with CBC and CMP. Per Eleanor Tellez PA-C Patient is currently decompensated, he will likely be a bed search. We will be screening basic labs, serum ethanol and drug screen. We will referred to our care team. I have independently reviewed the following tests: Labs: No leukocytosis, not anemic, no electrolyte abnormality, ethanol negative and drug screen pending Lab Data 12/26/23 19:27 12/26/23 19:27 Labs: Lab Results 12/26/23 12/27/23 Range/Units 19: 00:00 WBC 6.1 (4.8-10.8) X10*3/uL RBC 4.79 (4.60-5.80) X10*6/uL Hgb 13.8 L (14.0-18.0) g/dl Hct 40.8 L (42.0-52.0) % MCV 85.2 (80.0-98.0) fL MCH 28.8 (27.0-33.0) pg MCHC 33.8 (31.0-36.0) g/dl RDW 12.6 (11.0-16.0) % Plt Count 262 (160-400) X10*3/uL MPV 9.6 (9.4-12.4) fL Immature Gran % (Auto) 0.3 (0.0-0.4) % Neut % (Auto) 64.8 (45-73) % Lymph % (Auto) 25.7 (20-40) % Harper % (Auto) 8.7 (2-11) % Eos % (Auto) 0.0 (0-4) % Baso % (Auto) 0.5 (0-2) % Lymph # (Auto) 1.6 (1.2-4.9) X10*3/uL Harper # (Auto) 0.5 (0.1-1.2) X10*3/uL Eos # (Auto) 0.0 (0.0-0.4) X10*3/uL Baso # (Auto) 0.0 (0.0-0.2) X10*3/uL Abs Immat Gran (auto) 0.02 (0.00-0.03) X10*3/uL Absolute Neuts (auto) 4.0 (2.0-8.3) x10*3/uL Absolute Nucleated RBC 0.000 (0.0-0.012) X10*3/uL Nucleated RBC % (auto) 0.0 (0.0-0.2) /100WBC Sodium 139 (135-145) mmol/L Potassium 3.9 (3.3-5.1) mmol/L Chloride 104 (96-108) mmol/L Carbon Dioxide 25 (22-29) mmol/L Anion Gap 14 (12-20) BUN 22 H (9-16) mg/dL Creatinine 1.21 (0.5-1.4) mg/dL Estim Creat Clear Calc 62.9 Estimated GFR > 60 Random Glucose 123 H (60-115) mg/dL Calcium 9.4 (8.4-10.2) mg/dL Magnesium 1.7 (1.6-2.6) mg/dL Total Bilirubin 0.3 (0.0-1.0) mg/dL AST 47 H (5-37) U/L ALT 42 H (0-40) U/L Alkaline Phosphatase 74 (39-117) U/L Total Protein 7.3 (6.5-8.0) g/dL Albumin 4.0 (3.5-5.0) g/dL Lipase 22 (8-78) U/L Urine Color Yellow Urine Appearance Clear Urine pH 5.5 (5.0-9.0) Ur Specific [place] >= 1.030 H (1.005-1.025) Urine Protein Negative (Neg-Trace) mg/dL Urine Glucose (UA) Negative (Negative) mg/dL Urine Ketones Trace (Negative) mg/dL Urine Blood Negative (Negative) Urine Nitrite Negative (Negative) Ur Leukocyte Esterase Negative (Negative) Salicylates < 5.0 L (15-30) mg/dL Urine Opiates Screen Not Detected (Not Detect) Ur Buprenorphine Scrn Not Detected (Not Detect) ng/mL Ur Oxycodone Screen Not Detected (Not Detect) ng/mL Urine Methadone Screen Not Detected (Not Detect) ng/mL Urine Fentanyl Screen Not Detected (Not Detect) Acetaminophen < 3 (<30) mcg/mL Ur Barbiturates Screen Not Detected (Not Detect) Ur Phencyclidine Scrn Not Detected (Not Detect) Ur Amphetamines Screen Not Detected (Not Detect) U Benzodiazepines Scrn Not Detected (Not Detect) Urine Cocaine Screen POSITIVE H (Not Detect) U Marijuana (THC) Screen Not Detected (Not Detect) Ethyl Alcohol < 10 mg/dL Discharge Plan Discharge Clinical Impression: Auditory hallucination Patient Disposition: Still a Patient Prescriptions: No Action nicotine (polacrilex) 2 mg Gum 4 mg buccal Q2H PRN (Reason: Nicotine Cravings) 30 Days Qty: 120 1RF aspirin 81 mg tablet,delayed release (DR/EC) 81 mg PO DAILY 30 Days Qty: 30 0RF paroxetine HCl 30 mg tablet 30 mg PO BID 30 Days Qty: 60 0RF metformin 1,000 mg tablet 1,000 mg PO BID 30 Days Qty: 60 0RF albuterol sulfate [Ventolin HFA] 90 mcg/actuation HFA aerosol inhaler 2 puff INHALATION QID PRN (Reason: wheezing) 300 Days Qty: 1 0RF rosuvastatin 10 mg tablet 10 mg PO DAILY 30 Days Qty: 30 0RF fluticasone propion-salmeterol [Advair HFA] 115-21 mcg/actuation HFA aerosol inhaler 2 puff INHALATION BID 30 Days Qty: 1 0RF Januvia 100 mg tablet 100 mg PO DAILY 30 Days Qty: 30 0RF insulin glargine 100 unit/mL Solution 15 unit subcut BEDTIME 30 Days Qty: 15 0RF omeprazole 20 mg capsule,delayed release(DR/EC) 20 mg PO BEDTIME quetiapine 300 mg Tablet 300 mg PO BEDTIME 30 Days Qty: 30 0RF risperidone 1 mg Tablet 1 mg PO BID@0800,1700 30 Days Qty: 60 0RF ibuprofen 600 mg tablet 600 mg PO Q8H PRN (Reason: fever or pain) Qty: 20 0RF gabapentin 400 mg capsule 300 mg PO BID doxycycline hyclate 100 mg tablet 100 mg PO BID lorazepam 1 mg tablet 1 mg PO TID mupirocin 2 % ointment 1 appl topical BID Qty: 15 0RF Interventions: [place]-Suicide Risk Severity Scale Last Done: 12/27/23 06:25 Print Language: [place]
--- OUTSIDE RECORDS SUMMARY | 2023-12-26 18:52 | XMS_ITS | Continuity of Care Document ---
Author Organization [facility] ter Address [address] [place] [id number]- Care Team Providers Care Peer Tutor Name Role Phone Shivani IBARRA, Yoel Primary Care Physician Encounter [facility] Date(s): 12/24/23 - 12/24/[address] [address]- Encounter Diagnosis Mental health-related complaint(Final) - 12/24/23 Discharge Disposition: A-D/C Home Attending Physician: Tara Perera MD Admitting Physician: Tara Perera MD Referring Physician: Not on Staff, Referring MD Allergies, Adverse Reactions, Alerts Substance Reaction Severity Status glipiZIDE facial swelling,rash Active Tylox Chest pain not present Activ e oxyCODONE Active Immunizations Given and Recorded Vaccine Date Status [...] Comment: [facility] [id number] 2Result Comment: [facility] [id number] 3Result Comment: [facility] [id number] [phone] 4Admin Note: [facility] [...] Date: 01/17/21 Stop Date: 07/16/21 Status: Ordered gabapentin 300 mg oral capsule 1, capsule, By Mouth, 2 times a day, # 60 capsule, Refills 0, Tot. Refills 0, Maintenance, 249:38:00 EDT, Route to Pharmacy Electronically, [facility] Start Date: 10/27/23 Status: Ordered gabapentin 400 mg oral capsule 1, capsule, By Mouth, 2 times a day, # 60 capsule, Refills 5, Maintenance, 10/27/23 9:38:00 EDT, Route to Pharmacy Electronically, [facility] Start Date: 10/27/23 Status: Ordered Januvia 100 mg oral tablet 1 tablet, By Mouth, Daily, # 30 tablet, 5 Refills, Maintenance, 10/27/23 9:38:00 EDT, [facility] Start Date: 10/27/23 Status: Ordered Lantus Solostar Pen 100 units/mL subcutaneous solution See Instructions, INJECT SUBCUTANEOUSLY 15 UNITS DAILY AT BEDTIME., # 15 mL, 3 Refills, Maintenance, 03/24/23 16:52:00 EST, [facility], 167, cm, 08/29/21 9:11:00 EDT, Height Start Date: 03/24/23 Status: Ordered Lantus Solostar Pen 100 units/mL subcutaneous solution See Instructions, INJECT SUBCUTANEOUSLY 15 UNITS DAILY AT BEDTIME., # 15 mL, 3 Refills, Maintenance, 04/24/22 10:40:00 EST, [facility], 167, cm, 08/29/21 9:11:00 EDT, [...] tablet, 0 Refills, Maintenance, 10/26/23 18:10:00 EDT, [facility] Start Date: 10/26/23 Status: Ordered omeprazole 20 mg oral enteric coated capsule 1 capsule, By Mouth, Daily, # 90 capsule, 1 Refills, Maintenance, 06/22/23 19:52:00 EDT, [facility], 167, cm, 08/29/21 9:11:00 EDT, Height Start Date: 06/22/23 Status: Ordered PARoxetine 30 mg oral tablet 1 tablet, By Mouth, 2 times a day, Please call office to schedule a follow up appointment for further refills, # 180 tablet, 0 Refills, Maintenance, 10/26/23 18:09:00 EDT, [facility] Start Date: 10/26/23 Status: Ordered [place], 31 G x 8 mm BD Ultra [...] 09/15/23 10:34:00 EDT, Route to Pharmacy Electronically, [facility] Start Date: 09/15/23 Status: Ordered rosuvastatin 10 mg oral tablet 1 tablet, By Mouth, Daily, # 30 tablet, 5 Refills, Maintenance, 10/27/23 9:38:00 EDT, [facility] Start Date: 10/27/23 Status: Ordered [...] steatosis Confirmed Active Gastric regurgitation Confirmed Active Vital Signs Most recent to oldest [Reference Range]: 1 2 3 Height 170 cm (12/24/23 6:05 PM) 170 cm (12/24/23 2:17 PM) 170 cm (12/24/23 2:16 PM) Weight 71 kg (12/24/23 6:05 PM) 71 kg (12/24/23 2:17 PM) 71 kg (12/24/23 2:16 PM) Oxygen Saturation [94-100 %] 100 % (12/24/23 6:05 PM) 100 % (12/24/23 2:16 PM) Pulse Rate [55-90 bpm] 78 bpm (12/24/23 6:05 PM) 96 bpm *H* (12/24/23 2:16 PM) Body Mass Index [18.5-24.99 kg/m2] 24.57 kg/m2 (12/24/23 6:05 PM) 24.57 kg/m2 (12/24/23 2:16 PM) Blood Pressure [90-138/55-84 mm Hg] 133/82mm Hg (12/24/23 6:05 PM) 136/74mm Hg (12/24/23 2:16 PM) Respiratory Rate [16-30 br/min] 15 br/min *L* (12/24/23 6:05 PM) 18 br/min (12/24/23 2:16 PM) Temperature [96.8-100.4 DegF] 97.3 DegF (12/24/23 6:05 PM) 98.5 DegF (12/24/23 2:16 PM) Mode of Delivery (Oxygen) Room air (12/24/23 6:05 PM) Room air (12/24/23 2:16 PM) Blood pressure sites Arm, right (12/24/23 6:05 PM) Temperature Route Oral (12/24/23 6:05 PM) Oral (12/24/23 2:16 PM) Dry Weight 71 kg (12/24/23 6:05 PM) 71 kg (12/24/23 2:17 PM) 71 kg (12/24/23 2:16 PM) Weight Obtained Via Patient/family state d (12/24/23 2:16 PM) Dry Weight Obtained Via Patient/family s tated (12/24/23 2:16 PM) Social History Social History Type Response Smoking Status Former smoker; Tobac co user in household: No entered on: 08/07/16 Sex Patient Care team information Care Team Personnel Name: Yoel Parrish MD Position: [facility] Physician - Primary Care Member Role: PCP Address: Address: [address] [place] [address]- Care Team Related Persons Name: CHAGO MEDRANO Address: home [address] [place] [address] Name: SUNIL TEMPLETON Address: home [address] [address]
[2023-12-26 19:31] LABS: MANUAL DIFF FLAG NO
[2023-12-26 19:34] LABS: Basophils Percent Auto 0.5 % (0-2); Hematocrit 40.8 % (42.0-52.0); Hemoglobin 13.8 g/dl (14.0-18.0); Imm Gran Abs Auto 0.02 X10*3/uL (0.00-0.03); Imm Gran Pct Auto 0.3 % (0.0-0.4); Lymphocytes Absolute Auto 1.6 X10*3/uL (1.2-4.9); Lymphocytes Percent Auto 25.7 % (20-40); Mean Corpuscular HGB Conc 33.8 g/dl (31.0-36.0); Mean Corpuscular Hemoglobin 28.8 pg (27.0-33.0); Mean Corpuscular Volume 85.2 fL (80.0-98.0); Mean Platelet Volume 9.6 fL (9.4-12.4); Monocytes Absolute Auto 0.5 X10*3/uL (0.1-1.2); Monocytes Percent Auto 8.7 % (2-11); Neutrophils Percent Auto 64.8 % (45-73); Platelet Count 262 X10*3/uL (160-400); Red Blood Count 4.79 X10*6/uL (4.60-5.80); Red Cell Distribution Width 12.6 % (11.0-16.0); White Blood Count 6.1 X10*3/uL (4.8-10.8)
[2023-12-26 19:47] LABS: Alanine Aminotransferase 42 U/L (0-40); Alkaline Phosphatase 74 U/L (39-117); Anion Gap 14 (12-20); Aspartate Amino Transferase 47 U/L (5-37); Bilirubin Total 0.3 mg/dL (0.0-1.0); Blood Urea Nitrogen 22 mg/dL (9-16); Calcium 9.4 mg/dL (8.4-10.2); Carbon Dioxide 25 mmol/L (22-29); Chloride 104 mmol/L (96-108); Creatinine Clr Calc Pharmacy 62.9; Estimated Glomerular Filt Rate > 60; Glucose Random 123 mg/dL (60-115); Lipase 22 U/L (8-78); Magnesium 1.7 mg/dL (1.6-2.6); Potassium 3.9 mmol/L (3.3-5.1); Sodium 139 mmol/L (135-145); Total Protein 7.3 g/dL (6.5-8.0)
[2023-12-26 19:48] LABS: Ethanol < 10 mg/dL
[2023-12-26 19:59] LABS: Acetaminophen LAB < 3 mcg/mL (<30); Salicylate < 5.0 mg/dL (15-30)
--- NOTE | 2023-12-26 21:13 | MHC.CARE ---
No urine tox collected at this time to rule out substance-induced psychotic symptoms. Pt will be seen by CARE team in the morning.
[2023-12-27 00:12] LABS: Appearance Urine Clear; Color Urine Yellow; Glucose Urine UA Negative (Negative); Leukocyte Esterase Urine Negative (Negative); Nitrite Urine Negative (Negative); PH 5.5 (5.0-9.0); Specific Gravity - Urine >= 1.030 (1.005-1.025); Urine Blood Negative (Negative); Urine Ketones Trace mg/dL (Negative); Urine Protein Negative (Neg-Trace)
[2023-12-27 00:21] LABS: Amphetamine Screen Urine Not Detected (Not Detect); Barbiturates, Urine Not Detected (Not Detect); Benzodiazepines Screen Urine Not Detected (Not Detect); Buprenorphine Scr Not Detected (Not Detect); Cannabinoid Screen Urine Not Detected (Not Detect); Cocaine Screen Urine POSITIVE (Not Detect); Fentanyl, urine Not Detected (Not Detect); Methadone Screen, Urine Not Detected (Not Detect); Opiate Screen Urine Not Detected (Not Detect); Oxycodone Screen Urine Not Detected (Not Detect); Phencyclidine Screen Urine Not Detected (Not Detect)
--- NOTE | 2023-12-27 08:15 | PC.NURSE ---
pt speaking w/ care team at this time. plan of care ongoing.
[2023-12-27 09:22] VITALS: BP 130/68; PULSE 67; RESP 16; TEMP 36.6; O2SAT 100
[2023-12-27 10:48] VITALS: BP 130/68; PULSE 67; RESP 16; TEMP 36.6; O2SAT 100
--- NOTE | 2023-12-27 10:52 | PC.NURSE ---
belongings retrieved from locker. care team arranged lyft.
== END 2023-12-27 10:53 | disposition home or self-care (01) ==
PROVIDERS: Physician Assistant Medical; Emergency Provider Emergency Medicine
DX: R44.0 Auditory hallucinations (principal); Z59.00 Homelessness unspecified; F33.1 Major depressive disorder, recurrent, moderate; F14.10 Cocaine abuse, uncomplicated; E11.9 Type 2 diabetes mellitus without complications; Z79.84 Long term (current) use of oral hypoglycemic drugs; Z79.82 Long term (current) use of aspirin; Z79.899 Other long term (current) drug therapy; Z79.02 Long term (current) use of antithrombotics/antiplatelets; F17.210 Nicotine dependence, cigarettes, uncomplicated
CPT/HCPCS: 36415; 80053; 80143; 80179; 80307; 81003; 83690; 83735; 85025; 99285; S9485

== ENCOUNTER 2023-12-27 19:38 | Emergency (ER) | payer MEDICARE, MEDICAID, SELFPAY ==
--- NOTE | ~2023-12-27 | XR_ITS ---
EXAMINATION: XR CHEST CLINICAL INFORMATION: Chest pain. COMPARISON: Chest x-ray 11/26/2023 TECHNIQUE: 2 views of the chest were obtained. FINDINGS: No significant abnormality is noted involving the heart, lungs, mediastinum, bony thorax or soft tissues. XR/XR chest 2V IMPRESSION: Unremarkable chest examination. Electronically signed by: Christofer Vargas MD 12/27/2023 08:42 PM EDT RP
--- NOTE | 2023-12-27 19:39 | ECG_ITS ---
Test Reason : CP Blood Pressure : / mmHG Vent. Rate : 075 BPM Atrial Rate : 075 BPM P-R Int : 132 ms QRS Dur : 086 ms QT Int : 362 ms P-R-T Axes : 017 053 000 degrees QTc Int : 404 ms Normal sinus rhythm Cannot rule out Inferior infarct (cited on or before 23-DEC-2023) Abnormal ECG When compared with ECG of 24-DEC-2023 22:40, QT has shortened Referred By: Lizet Mcgowan Electronically Signed By:Dipesh Haq
[2023-12-27 19:46] VITALS: BP 135/57; PULSE 74; RESP 18; TEMP 36.8; O2SAT 99; BMI 28.3
--- NOTE | 2023-12-27 19:46 | ED.CHESTPAIN ---
HPI - Chest Pain General Chief Complaint: Chest Pain Stated Complaint: chest pain Time Seen by Provider: 12/27/23 20:57 Source: patient Mode of arrival: ambulatory Limitations: no limitations History of Present Illness ED Provider: Lizet Mcgowan APRN HPI narrative: 58 yo male with past medical history of anxiety, HLD, DM, asthma here with complaints of chest pain intermittent for days associated with feeling anxious. Not exertional. Unsure of causative or alleviating factors. No associated shortness of breath, cough, fevers, chills, vomiting, diarrhea, dizziness, diaphoresis, abdominal pain, leg swelling or leg pain. Patient reports he was taking lorazepam and ran out of this a week ago. However, after further questioning and comparing this with his fill history from [facility] it looks like he filled a 30 day supply of clonazepam on 12/17. He tells me he prefers lorazepam and does not feel like this helps his anxiety. No recent travel/hospitalization/sick contact. No history of DVT or family history of same. Related Data Home Medications ?Medication ?Instructions ?Recorded ?Confirmed lorazepam 1 mg tablet 1 mg PO TID 06/25/23 12/26/23 omeprazole 20 mg capsule,delayed 20 mg PO BEDTIME 11/29/23 12/26/23 release doxycycline hyclate 100 mg tablet 100 mg PO BID 12/26/23 12/26/23 gabapentin 400 mg capsule 300 mg PO BID 12/26/23 12/26/23 Previous Rx's ?Medication ?Instructions ?Recorded albuterol sulfate 90 mcg/actuation 2 puff inhalation QID PRN wheezing 09/21/23 aerosol inhaler (Ventolin HFA) 300 days #1 inhaler aspirin 81 mg tablet,delayed 81 mg PO DAILY 30 days #30 tabs 09/21/23 release fluticasone propionate 115 2 puff inhalation BID 30 days #1 09/21/23 mcg-salmeterol 21 mcg/actuation inhaler HFA inhaler (Advair HFA) insulin glargine 100 unit/mL 15 unit (0.15 mL) subcut BEDTIME 09/21/23 subcutaneous solution 30 days #15 mL metformin 1,000 mg tablet 1,000 mg PO BID 30 days #60 tabs 09/21/23 nicotine (polacrilex) 2 mg gum 4 mg buccal Q2H PRN Nicotine 09/21/23 Cravings 30 days #120 ea paroxetine HCl 30 mg tablet 30 mg PO BID 30 days #60 tabs 09/21/23 rosuvastatin 10 mg tablet 10 mg PO DAILY 30 days #30 tabs 09/21/23 sitagliptin phosphate 100 mg 100 mg PO DAILY 30 days #30 tabs 09/21/23 tablet (Januvia) quetiapine 300 mg tablet 300 mg PO BEDTIME 30 days #30 tabs 12/03/23 risperidone 1 mg tablet 1 mg PO BID@0800,1700 30 days #60 12/03/23 tabs ibuprofen 600 mg tablet 600 mg PO Q8H PRN fever or pain 12/09/23 #20 tabs mupirocin 2 % topical ointment 1 appl topical BID #15 grams 12/19/23 Allergies Allergy/AdvReac Type Severity Reaction Status Date / Time glipizide [GLIPIZIDE] Allergy Intermediate ITCHY Verified 12/27/23 19:50 oxycodone [From TYLOX] AdvReac Intermediate CHEST PAINS Verified 12/27/23 19:50 Review of Systems Review of Systems: Yes all other systems are reviewed and are negative Constitutional: Constitutional: Reports no additional constitutional complaints, Denies body ache(s), Denies chills, Denies fever(s), Denies headache(s) and Denies weakness Eyes: Eyes: Reports no additional eye complaints and Denies change in vision ENT: Reports system reviewed and no additional complaints, except as documented, Denies dizziness, Denies headache(s), Denies nasal congestion, Denies nasal discharge and Denies neck pain Cardiovascular: Cardiovascular: Reports no additional cardiovascular complaints, Reports chest pain, Denies leg edema and Denies dyspnea Respiratory: Respiratory: Reports no additional respiratory complaints, Denies cough and Denies dyspnea Gastrointestinal: Gastrointestinal: Reports no additional gastrointestinal complaints, Denies abdominal pain, Denies diarrhea, Denies nausea and Denies vomiting Genitourinary: Genitourinary: Denies urinary incontinence Musculoskeletal: Musculoskeletal: Reports no additional musculoskeletal complaints, Denies back pain, Denies arthralgias, Denies joint swelling, Denies neck pain, Denies numbness and Denies tingling Integumentary/Breasts: Skin/Breast: Reports system reviewed and no additional complaints, except as docu and Denies rash Neurologic: Reports system reviewed and no additional complaints, except as documented, Denies Abnormal speech present, Denies dizziness, Denies headache(s), Denies numbness, Denies tingling and Denies weakness Psychiatric: Psychiatric: Reports anxiety [facility] Past Medical History Attestation statement: The following information was validated with the patient. Source: old records reviewed and nursing notes reviewed Medical History Anxiety Diabetes Social History Social History Household Members: None Housing: Homeless Do you presently have visiting nurse or other home services: No Unable to assess alcohol history related to: Unknown Alcohol intake: current Alcohol intake frequency: holidays/special occasions only Alcohol type: beer Patient Tobacco Use Status: Current everyday Tobacco user Tobacco use type: Cigarette Cigarette Packs Per Day: 1 Cigarettes Per Day: 20.0 Years Smoked: 40 e-Cigarette/Vaping Use: Former Use Second Hand Smoke Exposure: Yes Substance Use Type: Crack/Cocaine, Prescription Drugs and Caffiene Advance Directives Date on File: 10/24/21 service: No Sexual orientation: Straight/Heterosexual Physical Exam Vital Signs: Vital Signs: Last Vital Signs Temp 98.3 F 12/27/23 19:46 Pulse 74 12/27/23 19:46 Resp 18 12/27/23 19:46 BP 135/57 L 12/27/23 19:46 Pulse Ox 99 12/27/23 19:46 O2 Del Method Room Air 12/27/23 19:46 BMI result Body Mass Index 28.3 Const: General: cooperative, healthy appearing, comfortable and no acute distress Orientation/consciousness: patient oriented x3 Limitations: no limitations HEENT: Head: Yes normal to inspection Ears: hearing grossly normal bilaterally General nose exam: Normal external nose present Face and sinus: Yes normal facial exam Mouth: Normal oral and palatal mucosa present Throat: Yes posterior oropharynx normal Eyes: General: appearance normal, both eyes and all related structures Pupils: Equal, round and reactive pupils present Neck: Neck: Yes normal visual inspection Chest: Chest palpation & inspection: normal inspection of the chest Resp: Effort & Inspection: normal respiratory effort Auscultation: clear to auscultation bilaterally Cardio: Rate: regular rate Rhythm: regular rhythm Peripheral pulses: Peripheral pulses 2+ throughout GI: Inspection: Yes normal to inspection Palpation (GI): Soft to palpation and nontender Auscultation: normal bowel sounds Back/Spine/Pelvis: Thoracic/Lumbar Spine: thoracic and lumbar spine normal to inspection Skin: General skin exam: no rashes or lesions noted Neuro: General: patient oriented x3, no focal motor deficits and normal sensation to monofilament Cranial nerves: Yes Equal, round and reactive pupils present Cognition (Neuro): normal cognition Speech: No Abnormal speech present Gait exam (Neuro): Normal gait present Motor exam (neuro): 5/5 motor strength present throughout Extrem: General: Yes normal to inspection, Yes no pedal edema and Yes no calf tenderness Course Course Course Narrative: This is a rapid medical exam. Deferred additional HPI, ROS, PE to primary provider. 58 yo male with past medical history of anxiety, HLD, DM, asthma here with complaints of chest pain. Ran out of ativan one week ago. Will obtain labs, EKG, CXR MOR -Janell Mcgowan APRN Reevaluation(s) Reevaluation #1: Labs are unremarkable. EKG nonischemic. Chest x-ray shows no acute finding. Patient has had intermittent symptoms for days. Doubt ACS. Can follow up outpatient with his providers. Reviewed worrisome signs and symptoms of when to return to the emergency room. Comfortable plan for discharge home Medical Decision Making Medical Decision Making MDM Narrative: 58 yo male with past medical history of anxiety, HLD, DM, asthma here with complaints of chest pain intermittent for days associated with feeling anxious. Not exertional. Unsure of causative or alleviating factors. No associated shortness of breath, cough, fevers, chills, vomiting, diarrhea, dizziness, diaphoresis, abdominal pain, leg swelling or leg pain. Patient reports he was taking lorazepam and ran out of this a week ago. However, after further questioning and comparing this with his fill history from [facility] it looks like he filled a 30 day supply of clonazepam on 12/17. He tells me he prefers lorazepam and does not feel like this helps his anxiety. No recent travel/hospitalization/sick contact. No history of DVT or family history of same. Exam is benign. HPI is atypical for ACS. Will obtain EKG, CXR and labs Differential Diagnosis Differential Diagnoses: The differential diagnosis associated with the presentation includes Doubt ACS based on HPI, flat troponin and nonischemic EKG Doubt PE with no clinical findings concerning for DVT, no hypoxia, no tachypnea tachypnea, no tachycardia,No pleuritic symptoms Doubt aortic dissection with gradual onset of symptoms Admission/Observation Consideration of admission/observation: Escalation of care including admission/observation considered Heart score 2-low risk for MACE. No need for admit Lab Data MDM Lab Attestation statement: I reviewed the patient's lab results. 12/27/23 20:02 12/27/23 20:02 Labs: Lab Results 12/27/23 Range/Units 20:02 WBC 6.2 (4.8-10.8) X10*3/uL RBC 4.82 (4.60-5.80) X10*6/uL Hgb 13.8 L (14.0-18.0) g/dl Hct 41.1 L (42.0-52.0) % MCV 85.3 (80.0-98.0) fL MCH 28.6 (27.0-33.0) pg MCHC 33.6 (31.0-36.0) g/dl RDW 12.4 (11.0-16.0) % Plt Count 287 (160-400) X10*3/uL MPV 9.8 (9.4-12.4) fL Immature Gran % (Auto) 0.3 (0.0-0.4) % Neut % (Auto) 57.1 (45-73) % Lymph % (Auto) 31.9 (20-40) % [place] % (Auto) 9.8 (2-11) % Eos % (Auto) 0.3 (0-4) % Baso % (Auto) 0.6 (0-2) % Lymph # (Auto) 2.0 (1.2-4.9) X10*3/uL [place] # (Auto) 0.6 (0.1-1.2) X10*3/uL Eos # (Auto) 0.0 (0.0-0.4) X10*3/uL Baso # (Auto) 0.0 (0.0-0.2) X10*3/uL Abs Immat Gran (auto) 0.02 (0.00-0.03) X10*3/uL Absolute Neuts (auto) 3.6 (2.0-8.3) x10*3/uL Absolute Nucleated RBC 0.000 (0.0-0.012) X10*3/uL Nucleated RBC % (auto) 0.0 (0.0-0.2) /100WBC Sodium 135 (135-145) mmol/L Potassium 4.3 (3.3-5.1) mmol/L Chloride 103 (96-108) mmol/L Carbon Dioxide 25 (22-29) mmol/L Anion Gap 11 L (12-20) BUN 19 H (9-16) mg/dL Creatinine 1.13 (0.5-1.4) mg/dL Estim Creat Clear Calc 66.7 Estimated GFR > 60 Random Glucose 129 H (60-115) mg/dL Calcium 9.2 (8.4-10.2) mg/dL Total Bilirubin 0.5 (0.0-1.0) mg/dL Direct Bilirubin 0.2 (0.0-0.5) mg/dL AST 41 H (5-37) U/L ALT 37 (0-40) U/L Alkaline Phosphatase 75 (39-117) U/L Troponin I High Sens < 2.7 (<3.5-35.0) ng/L Total Protein 7.4 (6.5-8.0) g/dL Albumin 4.2 (3.5-5.0) g/dL Independent Interpretation I performed an independent interpretation of an: EKG and Plain X-Ray Interpretation: I independently viewed the EKG which shows normal sinus rhythm with a rate of 75, normal [place] unchanged from previous EKG I independently viewed the x-ray and agree with the radiology report Radiology Impression Discussion of test interpretation with radiology: I have reviewed the radiologist's reading. Radiologist Impression: [address] [address] XRay Report Signed Patient: Andreas Conway MR#: [id number] : 1965 Acct:[id number] Age/Sex: 58 / M ADM Date: 12/27/23 Loc: .ED Attending Dr: Ordering Physician: Lizet Leggett NP Date of Service: 12/27/23 Procedure(s): XR chest 2V Accession Number(s): [id number] cc: Physician,None ; Lizet Leggett NP~ EXAMINATION: XR CHEST CLINICAL INFORMATION: Chest pain. COMPARISON: Chest x-ray 11/26/2023 TECHNIQUE: 2 views of the chest were obtained. FINDINGS: No significant abnormality is noted involving the heart, lungs, mediastinum, bony thorax or soft tissues. XR/XR chest 2V IMPRESSION: Unremarkable chest examination. Electronically signed by: Christofer Vargas MD 12/27/2023 08:42 PM EDT RP Tests considered The following testing was considered but not selected: See discussion above Chronic Conditions Patient?s care impacted by: Diabetes Discharge Plan Discharge Clinical Impression: Atypical chest pain Patient Disposition: Home, Self-Care Instructions: Chest Pain (ED) Additional Instructions: Please follow-up with your outpatient providers Prescriptions: No Action nicotine (polacrilex) 2 mg Gum 4 mg buccal Q2H PRN (Reason: Nicotine Cravings) 30 Days Qty: 120 1RF aspirin 81 mg tablet,delayed release (DR/EC) 81 mg PO DAILY 30 Days Qty: 30 0RF paroxetine HCl 30 mg tablet 30 mg PO BID 30 Days Qty: 60 0RF metformin 1,000 mg tablet 1,000 mg PO BID 30 Days Qty: 60 0RF albuterol sulfate [Ventolin HFA] 90 mcg/actuation HFA aerosol inhaler 2 puff INHALATION QID PRN (Reason: wheezing) 300 Days Qty: 1 0RF rosuvastatin 10 mg tablet 10 mg PO DAILY 30 Days Qty: 30 0RF fluticasone propion-salmeterol [Advair HFA] 115-21 mcg/actuation HFA aerosol inhaler 2 puff INHALATION BID 30 Days Qty: 1 0RF Januvia 100 mg tablet 100 mg PO DAILY 30 Days Qty: 30 0RF insulin glargine 100 unit/mL Solution 15 unit subcut BEDTIME 30 Days Qty: 15 0RF omeprazole 20 mg capsule,delayed release(DR/EC) 20 mg PO BEDTIME quetiapine 300 mg Tablet 300 mg PO BEDTIME 30 Days Qty: 30 0RF risperidone 1 mg Tablet 1 mg PO BID@0800,1700 30 Days Qty: 60 0RF ibuprofen 600 mg tablet 600 mg PO Q8H PRN (Reason: fever or pain) Qty: 20 0RF gabapentin 400 mg capsule 300 mg PO BID doxycycline hyclate 100 mg tablet 100 mg PO BID lorazepam 1 mg tablet 1 mg PO TID mupirocin 2 % ointment 1 appl topical BID Qty: 15 0RF Referrals: ED Physician,Generic [Physician] - 1 week Print Language: Wolof
[2023-12-27 20:12] LABS: MANUAL DIFF FLAG NO
[2023-12-27 20:13] LABS: Basophils Percent Auto 0.6 % (0-2); Eosinophils Percent Auto 0.3 % (0-4); Hematocrit 41.1 % (42.0-52.0); Hemoglobin 13.8 g/dl (14.0-18.0); Imm Gran Abs Auto 0.02 X10*3/uL (0.00-0.03); Imm Gran Pct Auto 0.3 % (0.0-0.4); Lymphocytes Percent Auto 31.9 % (20-40); Mean Corpuscular HGB Conc 33.6 g/dl (31.0-36.0); Mean Corpuscular Hemoglobin 28.6 pg (27.0-33.0); Mean Corpuscular Volume 85.3 fL (80.0-98.0); Mean Platelet Volume 9.8 fL (9.4-12.4); Monocytes Absolute Auto 0.6 X10*3/uL (0.1-1.2); Monocytes Percent Auto 9.8 % (2-11); Neutrophils Absolute Auto 3.6 x10*3/uL (2.0-8.3); Neutrophils Percent Auto 57.1 % (45-73); Platelet Count 287 X10*3/uL (160-400); Red Blood Count 4.82 X10*6/uL (4.60-5.80); Red Cell Distribution Width 12.4 % (11.0-16.0); White Blood Count 6.2 X10*3/uL (4.8-10.8)
[2023-12-27 20:30] LABS: Alanine Aminotransferase 37 U/L (0-40); Albumin Level 4.2 g/dL (3.5-5.0); Alkaline Phosphatase 75 U/L (39-117); Anion Gap 11 (12-20); Aspartate Amino Transferase 41 U/L (5-37); Bilirubin Direct 0.2 mg/dL (0.0-0.5); Bilirubin Total 0.5 mg/dL (0.0-1.0); Blood Urea Nitrogen 19 mg/dL (9-16); Calcium 9.2 mg/dL (8.4-10.2); Carbon Dioxide 25 mmol/L (22-29); Chloride 103 mmol/L (96-108); Creatinine Clr Calc Pharmacy 66.7; Estimated Glomerular Filt Rate > 60; Glucose Random 129 mg/dL (60-115); Potassium 4.3 mmol/L (3.3-5.1); Sodium 135 mmol/L (135-145); Total Protein 7.4 g/dL (6.5-8.0)
[2023-12-27 20:38] LABS: Troponin-I High Sensitivity < 2.7 ng/L (<3.5-35.0)
--- OUTSIDE RECORDS SUMMARY | 2023-12-27 21:04 | XMS_ITS | Patient Health Record ---
Author Organization [facility] Address [address], [place] [id number] Support Name Relationship Address Phone Anrdeas Conway Guarantor Unknown [phone] REASON FOR REFERRAL No Information SOCIAL HISTORY Sex Assigned At : Social History Observation Description Sex Assigned At Unknown PLAN OF TREATMENT No Information Insurance Providers Payer Name Payer Address Payer Phone Subscriber Number Group Number Insured Name Patient Relationship to Insured Coverage Start Date Coverage End Date [place] [employer] [address] [facility] [address] [id number] Andreas Conway Self - patient is the insured [place] [address] [place] [address] [id number] Andreas Conway Self - patient is the insured
[2023-12-27 21:11] VITALS: BP 135/57; PULSE 74; RESP 18; TEMP 36.8; O2SAT 99
== END 2023-12-27 21:12 | disposition home or self-care (01) ==
LOC: HO.ED 20:59
PROVIDERS: Nurse Practitioner Family; Absent Provider Internal Medicine; Emergency Provider Internal Medicine; PCP Ophthalmology Retina Specialist
DX: R07.89 Other chest pain (principal); F41.9 Anxiety disorder, unspecified; R94.31 Abnormal electrocardiogram [ECG] [EKG]; Z79.899 Other long term (current) drug therapy
CPT/HCPCS: 36415; 71046; 80048; 80076; 84484; 85025; 93005; 99283

== ENCOUNTER → 2023-12-27 19:39 | Outpatient (BNV) | payer MEDICARE, MEDICAID, SELFPAY | PROVIDERS: Absent Provider Internal Medicine; Emergency Provider Internal Medicine; PCP Ophthalmology Retina Specialist; Visit Provider Internal Medicine Cardiovascular Disease | DX: R07.9 Chest pain, unspecified (principal); R94.31 Abnormal electrocardiogram [ECG] [EKG] | CPT/HCPCS: 93010 ==

== ENCOUNTER 2023-12-28 00:15 | Emergency (ER) | payer MEDICARE, MEDICAID, SELFPAY ==
--- NOTE | 2023-12-28 00:26 | ED.PSYCH ---
HPI - Psych General Stated Complaint: crisis Time Seen by Provider: 12/28/23 00:26 Source: patient and old records reviewed Mode of arrival: ambulatory Limitations: no limitations History of Present Illness ED Provider: DONI ONTIVEROS Narrative: 58 yo male with past medical history of anxiety, HLD, DM, asthma, drug abuse here again for the 15th time this month - his is in our psychiatric pod. He was just seen and discharged after they taxied him to a nursing home he now states he doesn't want to live without her. He has been seen several times this month by the CARE team. He was seen several times in October and admitted to our psych unit with concern for psychosis and delusions in the setting of cocaine abuse. He states there are no nursing home beds for him. He doesn't want to live without his and he is SI. He hasn't taken his medications in 2 days as he does not understand what he is supposed to take. MD complaint: suicidal ideation and feels depressed Onset (ago): month(s) Duration: intermittent History of same: Yes Relieving factors: none Exacerbating factors: other Context: significant life stressor Associated psychiatric symptoms: depression and suicidal ideation Associated symptoms: denies other symptoms Treatments prior to arrival: none If self harm: admits thoughts of self harm Related Data Home Medications ?Medication ?Instructions ?Recorded ?Confirmed lorazepam 1 mg tablet 1 mg PO TID 06/25/23 12/26/23 omeprazole 20 mg capsule,delayed 20 mg PO BEDTIME 11/29/23 12/26/23 release doxycycline hyclate 100 mg tablet 100 mg PO BID 12/26/23 12/26/23 gabapentin 400 mg capsule 300 mg PO BID 12/26/23 12/26/23 Previous Rx's ?Medication ?Instructions ?Recorded albuterol sulfate 90 mcg/actuation 2 puff inhalation QID PRN wheezing 09/21/23 aerosol inhaler (Ventolin HFA) 300 days #1 inhaler aspirin 81 mg tablet,delayed 81 mg PO DAILY 30 days #30 tabs 09/21/23 release fluticasone propionate 115 2 puff inhalation BID 30 days #1 09/21/23 mcg-salmeterol 21 mcg/actuation inhaler HFA inhaler (Advair HFA) insulin glargine 100 unit/mL 15 unit (0.15 mL) subcut BEDTIME 09/21/23 subcutaneous solution 30 days #15 mL metformin 1,000 mg tablet 1,000 mg PO BID 30 days #60 tabs 09/21/23 nicotine (polacrilex) 2 mg gum 4 mg buccal Q2H PRN Nicotine 09/21/23 Cravings 30 days #120 ea paroxetine HCl 30 mg tablet 30 mg PO BID 30 days #60 tabs 09/21/23 rosuvastatin 10 mg tablet 10 mg PO DAILY 30 days #30 tabs 09/21/23 sitagliptin phosphate 100 mg 100 mg PO DAILY 30 days #30 tabs 09/21/23 tablet (Januvia) quetiapine 300 mg tablet 300 mg PO BEDTIME 30 days #30 tabs 12/03/23 risperidone 1 mg tablet 1 mg PO BID@0800,1700 30 days #60 12/03/23 tabs ibuprofen 600 mg tablet 600 mg PO Q8H PRN fever or pain 12/09/23 #20 tabs mupirocin 2 % topical ointment 1 appl topical BID #15 grams 12/19/23 Allergies Allergy/AdvReac Type Severity Reaction Status Date / Time glipizide [GLIPIZIDE] Allergy Intermediate ITCHY Verified 12/28/23 00:35 oxycodone [From TYLOX] AdvReac Intermediate CHEST PAINS Verified 12/28/23 00:35 Review of Systems Review of Systems: Constitutional : No Fever, No Chills ENT/Mouth : No Ear Pain, No Nasal Congestion, No sore throat Eyes: No Eye Pain, No Swelling, No Redness Cardiovascular : No Chest Pain, No SOB Respiratory : No Cough, No Sputum, No Dyspnea Gastrointestinal : No Nausea, No Vomiting, No Diarrhea, No Hematochezia, No Melena Genitourinary : No Dysuria, No Urinary Frequency, No Hematuria Musculoskeletal : No Myalgias Skin : No Skin Lesions, No rash Neuro : No Weakness, No Numbness, No Paresthesias, No Dizziness, No Headache Psych : positive Anxiety, positive Depression, positive SI no HI All other systems reviewed and are negative [facility] Past Medical History Attestation statement: The following information was validated with the patient. Source: old records reviewed Medical History Anxiety Diabetes Social History Social History Household Members: None Housing: Homeless Do you presently have visiting nurse or other home services: No Unable to assess alcohol history related to: Unknown Alcohol intake: current Alcohol intake frequency: holidays/special occasions only Alcohol type: beer Patient Tobacco Use Status: Current everyday Tobacco user Tobacco use type: Cigarette Cigarette Packs Per Day: 1 Cigarettes Per Day: 20.0 Years Smoked: 40 e-Cigarette/Vaping Use: Former Use Second Hand Smoke Exposure: Yes Substance Use Type: Crack/Cocaine, Prescription Drugs and Caffiene Advance Directives Date on File: 10/24/21 service: No Sexual orientation: Straight/Heterosexual Physical Exam Vital Signs: Appearance: Alert. Oriented X3. No acute distress. Eyes: Pupils equal, round and reactive to light. ENT: Pharynx normal. Neck: Normal inspection. Neck supple. CVS: Normal heart rate and rhythm. Pulses normal. Respiratory: No respiratory distress. Breath sounds normal. Abdomen: Soft and nontender. Skin: Skin warm and dry. Normal skin color. Normal skin turgor. Extremities: No lower extremity edema. No calf ttp Neuro: Oriented X 3. No motor deficit. No sensory deficit. CN2-12 intact Medical Decision Making Medical Decision Making MDM Narrative: 58 yo male with past medical history of anxiety, HLD, DM, asthma, drug abuse here c/o SI and setting of no nursing home and his is in our psych unit and he wants to be with her. He has no medical complaints just had labs done earlier today will obtain drug screen and refer to CARE team - [facility] [place] for self harm Differential Diagnosis Differential Diagnoses: The differential diagnosis associated with the presentation includes drug abuse, homelessness, poor social situation Admission/Observation Consideration of admission/observation: Escalation of care including admission/observation considered physician observation started at 1234am pending CARE team Lab Data [facility] Lab Attestation statement: I reviewed the patient's lab results. External Record Review External record reviewed: Inpatient record and Outpatient record Social Determinants Patient?s care significantly limited by Social Determinants of Health including: Inadequate housing, Low income, Problems related to primary support group and Unemployment Discharge Plan Discharge Clinical Impression: Poor social situation Patient Disposition: Still a Patient Prescriptions: No Action nicotine (polacrilex) 2 mg Gum 4 mg buccal Q2H PRN (Reason: Nicotine Cravings) 30 Days Qty: 120 1RF aspirin 81 mg tablet,delayed release (DR/EC) 81 mg PO DAILY 30 Days Qty: 30 0RF paroxetine HCl 30 mg tablet 30 mg PO BID 30 Days Qty: 60 0RF metformin 1,000 mg tablet 1,000 mg PO BID 30 Days Qty: 60 0RF albuterol sulfate [Ventolin HFA] 90 mcg/actuation HFA aerosol inhaler 2 puff INHALATION QID PRN (Reason: wheezing) 300 Days Qty: 1 0RF rosuvastatin 10 mg tablet 10 mg PO DAILY 30 Days Qty: 30 0RF fluticasone propion-salmeterol [Advair HFA] 115-21 mcg/actuation HFA aerosol inhaler 2 puff INHALATION BID 30 Days Qty: 1 0RF Januvia 100 mg tablet 100 mg PO DAILY 30 Days Qty: 30 0RF insulin glargine 100 unit/mL Solution 15 unit subcut BEDTIME 30 Days Qty: 15 0RF omeprazole 20 mg capsule,delayed release(DR/EC) 20 mg PO BEDTIME quetiapine 300 mg Tablet 300 mg PO BEDTIME 30 Days Qty: 30 0RF risperidone 1 mg Tablet 1 mg PO BID@0800,1700 30 Days Qty: 60 0RF ibuprofen 600 mg tablet 600 mg PO Q8H PRN (Reason: fever or pain) Qty: 20 0RF gabapentin 400 mg capsule 300 mg PO BID doxycycline hyclate 100 mg tablet 100 mg PO BID lorazepam 1 mg tablet 1 mg PO TID mupirocin 2 % ointment 1 appl topical BID Qty: 15 0RF Print Language: Turkish
[2023-12-28 00:27] VITALS: BP 131/73; PULSE 82; RESP 18; TEMP 36.6; O2SAT 100; BMI 24.6
--- NOTE | 2023-12-28 00:43 | PC.NURSE ---
Patient belongings secured and patient changed over into hospital attire. Patient 1:1 with sitter. Labs obtained.
[2023-12-28 01:10] LABS: Amphetamine Screen Urine Not Detected (Not Detect); Barbiturates, Urine Not Detected (Not Detect); Benzodiazepines Screen Urine Not Detected (Not Detect); Buprenorphine Scr Not Detected (Not Detect); Cannabinoid Screen Urine Not Detected (Not Detect); Cocaine Screen Urine POSITIVE (Not Detect); Fentanyl, urine Not Detected (Not Detect); Methadone Screen, Urine Not Detected (Not Detect); Opiate Screen Urine Not Detected (Not Detect); Oxycodone Screen Urine Not Detected (Not Detect); Phencyclidine Screen Urine Not Detected (Not Detect)
[2023-12-28 01:42] LABS: Ethanol < 10 mg/dL
--- NOTE | 2023-12-28 05:11 | PC.NURSE ---
pt ambulated to the bathroom, gait even and steady
[2023-12-28 06:00] VITALS: BP 114/56; PULSE 78; RESP 14; TEMP 36.3; O2SAT 100
--- NOTE | 2023-12-28 06:53 | PC.NURSE ---
pt awake, given breakfast tray
--- NOTE | 2023-12-28 07:53 | PC.NURSE ---
pt speaking w/ care team at this time.
[2023-12-28 08:25] VITALS: BP 116/54; PULSE 72; RESP 17; TEMP 36.5; O2SAT 99
--- NOTE | 2023-12-28 08:48 | PC.NURSE ---
belongings returned to pt. pt leaving [facility] via lyft at this time.
[2023-12-28 08:49] VITALS: BP 116/54; PULSE 72; RESP 17; TEMP 36.5; O2SAT 99
--- NOTE | 2023-12-28 09:07 | MHC.CARE ---
Lyft was ordered for pt who was not present to accept the Lyft. CARE Team searched on two occassions for pt but could not find him. Of note, yesterday pt was provided a Lyft and missed it. No further Lyft rides have been offerred.
== END 2023-12-28 08:49 | disposition home or self-care (01) ==
PROVIDERS: Emergency Provider Emergency Medicine; PCP Internal Medicine
DX: R45.851 Suicidal ideations (principal); Z72.89 Other problems related to lifestyle; F14.10 Cocaine abuse, uncomplicated; F33.1 Major depressive disorder, recurrent, moderate; F17.210 Nicotine dependence, cigarettes, uncomplicated; Z59.00 Homelessness unspecified; R44.0 Auditory hallucinations
CPT/HCPCS: 36415; 80307; 99285; S9485

== ENCOUNTER 2023-12-28 20:37 | Emergency (ER) | payer MEDICARE, MEDICAID, SELFPAY ==
--- NOTE | ~2023-12-28 | US_ITS ---
EXAMINATION: US ABDOMEN LIMITED CLINICAL INFORMATION: Right upper quadrant and right flank pain. COMPARISON: CT abdomen pelvis 09/22/2023 TECHNIQUE: Real-time imaging of the right upper quadrant abdominal viscera. FINDINGS: PANCREAS: The visualized pancreas appears unremarkable but the pancreatic tail is obscured by bowel gas. LIVER: The liver is normal in size. The liver contour is normal. There is diffuse increased liver parenchymal echogenicity, consistent with infiltrative hepatocellular disease. Focal fatty sparing is seen around the gallbladder. No concerning solid focal hepatic lesion. There is no intrahepatic biliary duct dilatation seen. GALLBLADDER: The gallbladder is physiologically distended without evidence of stones, sludge, polyps, wall thickening or pericholecystic fluid. COMMON BILE DUCT: Normal in caliber measuring 0.4 cm in diameter. RIGHT KIDNEY: No hydronephrosis. No renal calculi or focal parenchymal lesions. The kidney measures 10.6 cm in maximum dimension. FREE FLUID: None. US/US abdomen limited IMPRESSION: Echogenic liver consistent with infiltrative hepatocellular disease. Electronically signed by: Scott Mock MD 12/28/2023 09:34 PM EDT
--- NOTE | 2023-12-28 20:43 | ED_ITS ---
HPI - Back Pain/Injury General Chief Complaint: Urogenital-Male Stated Complaint: back pain Time Seen by Provider: 12/28/23 23:40 Source: patient, RN notes reviewed and old records reviewed Mode of arrival: ambulatory Limitations: no limitations History of Present Illness ED Provider: Amari HPI Narrative: 58-year-old male with past medical history significant for anxiety, hyperlipidemia, diabetes, asthma, drug abuse homelessness presents for evaluation of back pain. Patient reports that his back pain started 3 hours ago. He reports his pain started when he was lifting his 's luggage He did not fall down. His pain is in the right lower back there radiates down his right leg when he walks He denies any numbness, tingling, weakness. He was able to ambulate His pain is 10/09 Related Data Home Medications ?Medication ?Instructions ?Recorded ?Confirmed lorazepam 1 mg tablet 1 mg PO TID 06/25/23 12/26/23 omeprazole 20 mg capsule,delayed 20 mg PO BEDTIME 11/29/23 12/26/23 release doxycycline hyclate 100 mg tablet 100 mg PO BID 12/26/23 12/26/23 gabapentin 400 mg capsule 300 mg PO BID 12/26/23 12/26/23 Previous Rx's ?Medication ?Instructions ?Recorded albuterol sulfate 90 mcg/actuation 2 puff inhalation QID PRN wheezing 09/21/23 aerosol inhaler (Ventolin HFA) 300 days #1 inhaler aspirin 81 mg tablet,delayed 81 mg PO DAILY 30 days #30 tabs 09/21/23 release fluticasone propionate 115 2 puff inhalation BID 30 days #1 09/21/23 mcg-salmeterol 21 mcg/actuation inhaler HFA inhaler (Advair HFA) insulin glargine 100 unit/mL 15 unit (0.15 mL) subcut BEDTIME 09/21/23 subcutaneous solution 30 days #15 mL metformin 1,000 mg tablet 1,000 mg PO BID 30 days #60 tabs 09/21/23 nicotine (polacrilex) 2 mg gum 4 mg buccal Q2H PRN Nicotine 09/21/23 Cravings 30 days #120 ea paroxetine HCl 30 mg tablet 30 mg PO BID 30 days #60 tabs 09/21/23 rosuvastatin 10 mg tablet 10 mg PO DAILY 30 days #30 tabs 09/21/23 sitagliptin phosphate 100 mg 100 mg PO DAILY 30 days #30 tabs 09/21/23 tablet (Januvia) quetiapine 300 mg tablet 300 mg PO BEDTIME 30 days #30 tabs 12/03/23 risperidone 1 mg tablet 1 mg PO BID@0800,1700 30 days #60 12/03/23 tabs ibuprofen 600 mg tablet 600 mg PO Q8H PRN fever or pain 12/09/23 #20 tabs mupirocin 2 % topical ointment 1 appl topical BID #15 grams 12/19/23 cyclobenzaprine 7.5 mg tablet 7.5 mg PO TID PRN muscle spasm #10 12/28/23 tabs ibuprofen 600 mg tablet 600 mg PO Q6H PRN pain #20 tabs 12/28/23 Allergies Allergy/AdvReac Type Severity Reaction Status Date / Time glipizide [GLIPIZIDE] Allergy Intermediate ITCHY Verified 12/28/23 20:45 oxycodone [From TYLOX] AdvReac Intermediate CHEST PAINS Verified 12/28/23 20:45 Review of Systems 2 Constitutional: Constitutional: Denies body ache(s), Denies chills and Denies fever(s) Eyes: Eyes: Denies blurry vision ENT: Denies vertigo and Denies dizziness Cardiovascular: Cardiovascular: Denies chest pain and Denies dyspnea Respiratory: Respiratory: Denies cough and Denies dyspnea Gastrointestinal: Gastrointestinal: Denies abdominal pain, Denies nausea and Denies vomiting Musculoskeletal: Musculoskeletal: Reports back pain, Denies numbness, Reports radiating pain into limb, Reports stiffness and Denies tingling Neurologic: Denies vertigo, Denies dizziness, Denies numbness and Denies tingling PMF Past Medical History Medical History Anxiety Diabetes Social History Social History Household Members: None Housing: Homeless Do you presently have visiting nurse or other home services: No Unable to assess alcohol history related to: Unknown Alcohol intake: current Alcohol intake frequency: holidays/special occasions only Alcohol type: beer Patient Tobacco Use Status: Current everyday Tobacco user Tobacco use type: Cigarette Cigarette Packs Per Day: 1 Cigarettes Per Day: 20.0 Years Smoked: 40 Smoked in Last 30 Days: Yes e-Cigarette/Vaping Use: Former Use Second Hand Smoke Exposure: Yes Use of substances other than those prescribed or required for medical reasons: Yes Substance Use Type: Crack/Cocaine Substance Use Frequency: Chronic Longstanding Advance Directives: Yes Advance Directives on File: Yes Advance Directives Date on File: 10/24/21 service: No Sexual orientation: Straight/Heterosexual Physical Exam 2 Vital Signs: Vital Signs: Last Vital Signs Temp 97.9 F 12/28/23 22:25 Pulse 63 12/28/23 22:25 Resp 16 12/28/23 22:25 BP 127/62 12/28/23 22:25 Pulse Ox 98 12/28/23 22:25 O2 Del Method Room Air 12/28/23 22:25 BMI result Body Mass Index 25.1 Const: General: healthy appearing, comfortable, no acute distress, alert and awake Nutritional Appearance: well nourished Orientation/consciousness: p atient oriented x3 HEENT: Head: Yes normocephalic and Yes atraumatic Eyes: Eyelids: Yes eyelids normal Conjunctivae: conjunctivae normal S clerae: sclerae normal Corneas: corneas normal Pupils: Equal, round and reactive pupils present EOM: EOMs intact bilaterally Neck: Neck: Yes full ROM Resp: Effort & Inspection: normal respiratory effort, able to speak in complete sentences and not labored GI: Inspection: No distended Palpation (GI): Soft to palpation, not firm, nontender, no guarding and not rigid Auscultation: normoactive bowel sounds Back/Spine/Pelvis: Other: Tenderness to the right lumbar sacral region. There is positive straight leg raise on right. Skin: General skin exam: elasticity normal Neuro: General: patient oriented x3 and No Unable to assess gait Cranial nerves: Yes Equal, round and reactive pupils present and Yes Bilaterally intact EOM present Cognition (Neuro): normal cognition Gait exam (Neuro): Normal gait present and No Unable to assess gait Motor exam (neuro): 5/5 motor strength present throughout Course Course Course Narrative: This is a Rapid Medical Exam performed in triage by Pearl Wilson PA-C. Full HPI, ROS and PE to be performed by primary ED provider. 58-year-old male with past medical history homelessness, substance abuse, MDD, presenting to the ED c/o kidney pain & R flank pain/ low back pain & dysuria x3 hrs. denies hx kidney stones PE: nontoxic appearing, ambulating w/steady gait, abdomen soft with RUQ and right CVA tenderness Plan: labs, UA, ultrasound Medical Decision Making Medical Decision Making [facility] Narrative: 58-year-old male who is well known to this emergency from presents for evaluation of back pain after lifting heavy luggage. His signs and symptoms are not concerning for cauda equina syndrome. He has no red flag symptoms. His physical exam is reassuring. Plan for symptomatic treatment with ibuprofen and cyclobenzaprine. He had labs and a renal ultrasound ordered in triage which did not show any concerning abnormalities Differential Diagnosis Differential Diagnoses: The differential diagnosis associated with the presentation includes Muscle spasms Low back pain Radiculopathy Sciatica Obstructive uropathy Pyelonephritis Lab Data [facility] Lab Attestation statement: I reviewed the patient's lab results. No leukocytosis or anemia. Normal platelet count. No electrolyte abnormalities. Urinalysis without evidence of blood or infection 12/28/23 20:53 12/28/23 20:53 Labs: Lab Results 12/28/23 Range/Units 20:53 WBC 7.8 (4.8-10.8) X10*3/uL RBC 4.86 (4.60-5.80) X10*6/uL Hgb 14.1 (14.0-18.0) g/dl Hct 41.3 L (42.0-52.0) % MCV 85.0 (80.0-98.0) fL MCH 29.0 (27.0-33.0) pg MCHC 34.1 (31.0-36.0) g/dl RDW 12.3 (11.0-16.0) % Plt Count 292 (160-400) X10*3/uL MPV 9.6 (9.4-12.4) fL Immature Gran % (Auto) 0.1 (0.0-0.4) % Neut % (Auto) 61.0 (45-73) % Lymph % (Auto) 28.5 (20-40) % [place] % (Auto) 9.7 (2-11) % Eos % (Auto) 0.1 (0-4) % Baso % (Auto) 0.6 (0-2) % Lymph # (Auto) 2.2 (1.2-4.9) X10*3/uL [place] # (Auto) 0.8 (0.1-1.2) X10*3/uL Eos # (Auto) 0.0 (0.0-0.4) X10*3/uL Baso # (Auto) 0.1 (0.0-0.2) X10*3/uL Abs Immat Gran (auto) 0.01 (0.00-0.03) X10*3/uL Absolute Neuts (auto) 4.8 (2.0-8.3) x10*3/uL Absolute Nucleated RBC 0.000 (0.0-0.012) X10*3/uL Nucleated RBC % (auto) 0.0 (0.0-0.2) /100WBC Sodium 138 (135-145) mmol/L Potassium 3.9 (3.3-5.1) mmol/L Chloride 104 (96-108) mmol/L Carbon Dioxide 24 (22-29) mmol/L Anion Gap 14 (12-20) BUN 16 (9-16) mg/dL Creatinine 1.08 (0.5-1.4) mg/dL Estim Creat Clear Calc 70.5 Estimated GFR > 60 Random Glucose 93 (60-115) mg/dL Calcium 10.5 H D (8.4-10.2) mg/dL Magnesium 1.8 (1.6-2.6) mg/dL Total Bilirubin 0.4 (0.0-1.0) mg/dL Direct Bilirubin 0.1 (0.0-0.5) mg/dL AST 44 H (5-37) U/L ALT 40 (0-40) U/L Alkaline Phosphatase 74 (39-117) U/L Total Protein 7.9 (6.5-8.0) g/dL Albumin 4.4 (3.5-5.0) g/dL Lipase 31 (8-78) U/L Urine Color Yellow Urine Appearance Clear Urine pH 5.5 (5.0-9.0) Ur Specific [place] >= 1.030 H (1.005-1.025) Urine Protein Negative (Neg-Trace) mg/dL Urine Glucose (UA) Negative (Negative) mg/dL Urine Ketones Trace (Negative) mg/dL Urine Blood Negative (Negative) Urine Nitrite Negative (Negative) Ur Leukocyte Esterase Negative (Negative) Radiology Impression Discussion of test interpretation with radiology: I have reviewed the radiologist's reading. Radiologist Impression: FINDINGS: PANCREAS: The visualized pancreas appears unremarkable but the pancreatic tail is obscured by bowel gas. LIVER: The liver is normal in size. The liver contour is normal. There is diffuse increased liver parenchymal echogenicity, consistent with infiltrative hepatocellular disease. Focal fatty sparing is seen around the gallbladder. No concerning solid focal hepatic lesion. There is no intrahepatic biliary duct dilatation seen. GALLBLADDER: The gallbladder is physiologically distended without evidence of stones, sludge, polyps, wall thickening or pericholecystic fluid. COMMON BILE DUCT: Normal in caliber measuring 0.4 cm in diameter. RIGHT KIDNEY: No hydronephrosis. No renal calculi or focal parenchymal lesions. The kidney measures 10.6 cm in maximum dimension. FREE FLUID: None. US/US abdomen limited IMPRESSION: Echogenic liver consistent with infiltrative hepatocellular disease. Electronically signed by: Scott Mock MD 12/28/2023 09:34 PM EDT RP Discharge Plan Discharge Clinical Impression: Low back pain Patient Disposition: Home, Self-Care Instructions: Back Pain (ED) Additional Instructions: Your workup in the ER today was reassuring. This includes your blood work, urinalysis and ultrasound. Your pain is most consistent with muscle spasms. Use ibuprofen and cyclobenzaprine for pain Cyclobenzaprine may make you drowsy, do not drink alcohol or drive after taking it Prescriptions: New ibuprofen 600 mg tablet 600 mg PO Q6H PRN (Reason: pain) Qty: 20 0RF cyclobenzaprine 7.5 mg tablet 7.5 mg PO TID PRN (Reason: muscle spasm) Qty: 10 0RF No Action nicotine (polacrilex) 2 mg Gum 4 mg buccal Q2H PRN (Reason: Nicotine Cravings) 30 Days Qty: 120 1RF aspirin 81 mg tablet,delayed release (DR/EC) 81 mg PO DAILY 30 Days Qty: 30 0RF paroxetine HCl 30 mg tablet 30 mg PO BID 30 Days Qty: 60 0RF metformin 1,000 mg tablet 1,000 mg PO BID 30 Days Qty: 60 0RF albuterol sulfate [Ventolin HFA] 90 mcg/actuation HFA aerosol inhaler 2 puff INHALATION QID PRN (Reason: wheezing) 300 Days Qty: 1 0RF rosuvastatin 10 mg tablet 10 mg PO DAILY 30 Days Qty: 30 0RF fluticasone propion-salmeterol [Advair HFA] 115-21 mcg/actuation HFA aerosol inhaler 2 puff INHALATION BID 30 Days Qty: 1 0RF Januvia 100 mg tablet 100 mg PO DAILY 30 Days Qty: 30 0RF insulin glargine 100 unit/mL Solution 15 unit subcut BEDTIME 30 Days Qty: 15 0RF omeprazole 20 mg capsule,delayed release(DR/EC) 20 mg PO BEDTIME quetiapine 300 mg Tablet 300 mg PO BEDTIME 30 Days Qty: 30 0RF risperidone 1 mg Tablet 1 mg PO BID@0800,1700 30 Days Qty: 60 0RF ibuprofen 600 mg tablet 600 mg PO Q8H PRN (Reason: fever or pain) Qty: 20 0RF gabapentin 400 mg capsule 300 mg PO BID doxycycline hyclate 100 mg tablet 100 mg PO BID lorazepam 1 mg tablet 1 mg PO TID mupirocin 2 % ointment 1 appl topical BID Qty: 15 0RF Print Language: Yoruba
[2023-12-28 20:44] VITALS: BP 119/65; PULSE 88; RESP 16; TEMP 36.1; O2SAT 98; BMI 25.1
[2023-12-28 20:58] LABS: Basophils Absolute Auto 0.1 X10*3/uL (0.0-0.2); Basophils Percent Auto 0.6 % (0-2); Eosinophils Percent Auto 0.1 % (0-4); Hematocrit 41.3 % (42.0-52.0); Hemoglobin 14.1 g/dl (14.0-18.0); Imm Gran Abs Auto 0.01 X10*3/uL (0.00-0.03); Imm Gran Pct Auto 0.1 % (0.0-0.4); Lymphocytes Absolute Auto 2.2 X10*3/uL (1.2-4.9); Lymphocytes Percent Auto 28.5 % (20-40); MANUAL DIFF FLAG NO; Mean Corpuscular HGB Conc 34.1 g/dl (31.0-36.0); Mean Platelet Volume 9.6 fL (9.4-12.4); Monocytes Absolute Auto 0.8 X10*3/uL (0.1-1.2); Monocytes Percent Auto 9.7 % (2-11); Neutrophils Absolute Auto 4.8 x10*3/uL (2.0-8.3); Platelet Count 292 X10*3/uL (160-400); Red Blood Count 4.86 X10*6/uL (4.60-5.80); Red Cell Distribution Width 12.3 % (11.0-16.0); White Blood Count 7.8 X10*3/uL (4.8-10.8)
[2023-12-28 21:03] LABS: Appearance Urine Clear; Color Urine Yellow; Glucose Urine UA Negative (Negative); Leukocyte Esterase Urine Negative (Negative); Nitrite Urine Negative (Negative); PH 5.5 (5.0-9.0); Specific Gravity - Urine >= 1.030 (1.005-1.025); Urine Blood Negative (Negative); Urine Ketones Trace mg/dL (Negative); Urine Protein Negative (Neg-Trace)
[2023-12-28 21:12] LABS: Alanine Aminotransferase 40 U/L (0-40); Albumin Level 4.4 g/dL (3.5-5.0); Alkaline Phosphatase 74 U/L (39-117); Anion Gap 14 (12-20); Aspartate Amino Transferase 44 U/L (5-37); Bilirubin Direct 0.1 mg/dL (0.0-0.5); Bilirubin Total 0.4 mg/dL (0.0-1.0); Blood Urea Nitrogen 16 mg/dL (9-16); Calcium 10.5 mg/dL (8.4-10.2); Carbon Dioxide 24 mmol/L (22-29); Chloride 104 mmol/L (96-108); Creatinine Clr Calc Pharmacy 70.5; Estimated Glomerular Filt Rate > 60; Glucose Random 93 mg/dL (60-115); Lipase 31 U/L (8-78); Magnesium 1.8 mg/dL (1.6-2.6); Potassium 3.9 mmol/L (3.3-5.1); Sodium 138 mmol/L (135-145); Total Protein 7.9 g/dL (6.5-8.0)
[2023-12-28 22:25] VITALS: BP 127/62; PULSE 63; RESP 16; TEMP 36.6; O2SAT 98
[2023-12-28] MEDS: Ibuprofen 600 MG TABLET PO (23:53)
[2023-12-28] MEDS: Cyclobenzaprine HCl 10 MG TABLET PO (23:53)
[2023-12-29 00:04] VITALS: BP 106/58; PULSE 60; RESP 16; TEMP 37; O2SAT 98
== END 2023-12-29 00:05 | disposition home or self-care (01) ==
PROVIDERS: Physician Assistant; Emergency Provider Internal Medicine; PCP Internal Medicine
DX: M54.50 Low back pain, unspecified (principal); E11.9 Type 2 diabetes mellitus without complications; E78.5 Hyperlipidemia, unspecified; J45.909 Unspecified asthma, uncomplicated; R44.0 Auditory hallucinations; F17.210 Nicotine dependence, cigarettes, uncomplicated; F14.10 Cocaine abuse, uncomplicated; Z59.00 Homelessness unspecified; Z79.4 Long term (current) use of insulin; Z79.02 Long term (current) use of antithrombotics/antiplatelets; Z79.899 Other long term (current) drug therapy; Z79.82 Long term (current) use of aspirin; Z79.84 Long term (current) use of oral hypoglycemic drugs
CPT/HCPCS: 36415; 76705; 80048; 80076; 80307; 81003; 83690; 83735; 85025; 99284; 99285; S9485

== ENCOUNTER 2024-01-04 04:36 | Emergency (ER) | payer OTHER, SELFPAY ==
--- NOTE | ~2024-01-04 | XR_ITS ---
EXAMINATION: XR CHEST CLINICAL INFORMATION: Chest pain. COMPARISON: Chest radiograph 12/27/2023. TECHNIQUE: Frontal view of the chest was obtained. FINDINGS: Normal appearance of the cardiomediastinal structures. No effusions or pneumothoraces. Normal pattern of pulmonary vasculature. No focal pulmonary consolidation. No skeletal abnormalities identified. XR/XR chest 1V IMPRESSION: Normal chest. Lungs clear. Electronically signed by: Cornell Quintana MD 01/04/2024 06:04 AM YASEMIN ARNDT
[2024-01-04 04:42] VITALS: BP 135/83; PULSE 106; RESP 20; TEMP 37; O2SAT 100; BMI 23.6
[2024-01-04 05:01] LABS: MANUAL DIFF FLAG NO
[2024-01-04 05:02] LABS: Basophils Percent Auto 0.3 % (0-2); Hematocrit 43.1 % (42.0-52.0); Hemoglobin 14.6 g/dl (14.0-18.0); Imm Gran Abs Auto 0.03 X10*3/uL (0.00-0.03); Imm Gran Pct Auto 0.3 % (0.0-0.4); Lymphocytes Absolute Auto 1.3 X10*3/uL (1.2-4.9); Lymphocytes Percent Auto 10.8 % (20-40); Mean Corpuscular HGB Conc 33.9 g/dl (31.0-36.0); Mean Corpuscular Hemoglobin 28.8 pg (27.0-33.0); Monocytes Absolute Auto 0.8 X10*3/uL (0.1-1.2); Monocytes Percent Auto 6.4 % (2-11); Neutrophils Absolute Auto 9.7 x10*3/uL (2.0-8.3); Neutrophils Percent Auto 82.2 % (45-73); Platelet Count 272 X10*3/uL (160-400); Red Blood Count 5.07 X10*6/uL (4.60-5.80); Red Cell Distribution Width 12.8 % (11.0-16.0); White Blood Count 11.8 X10*3/uL (4.8-10.8)
--- NOTE | 2024-01-04 05:05 | ED_ITS ---
HPI - General Adult General Chief complaint: Dyspnea Stated complaint: diff breathing Time Seen by Provider: 01/04/24 04:49 Source: patient Mode of arrival: ambulatory Limitations: no limitations History of Present Illness ED Provider: garrett ONTIVEROS narrative: Patient's history of asthma and lost his medication inhaler and other medication in the bag about a week ago has not taken any medication for 1 week including insulin asking for medication refill patient is smoker complaining of shortness a breath when he walks outside saturating 100% on room air Related Data Home Medications ?Medication ?Instructions ?Recorded ?Confirmed lorazepam 1 mg tablet 1 mg PO TID 06/25/23 12/26/23 omeprazole 20 mg capsule,delayed 20 mg PO BEDTIME 11/29/23 12/26/23 release doxycycline hyclate 100 mg tablet 100 mg PO BID 12/26/23 12/26/23 gabapentin 400 mg capsule 300 mg PO BID 12/26/23 12/26/23 Previous Rx's ?Medication ?Instructions ?Recorded albuterol sulfate 90 mcg/actuation 2 puff inhalation QID PRN wheezing 09/21/23 aerosol inhaler (Ventolin HFA) 300 days #1 inhaler aspirin 81 mg tablet,delayed 81 mg PO DAILY 30 days #30 tabs 09/21/23 release fluticasone propionate 115 2 puff inhalation BID 30 days #1 09/21/23 mcg-salmeterol 21 mcg/actuation inhaler HFA inhaler (Advair HFA) insulin glargine 100 unit/mL 15 unit (0.15 mL) subcut BEDTIME 09/21/23 subcutaneous solution 30 days #15 mL metformin 1,000 mg tablet 1,000 mg PO BID 30 days #60 tabs 09/21/23 nicotine (polacrilex) 2 mg gum 4 mg buccal Q2H PRN Nicotine 09/21/23 Cravings 30 days #120 ea paroxetine HCl 30 mg tablet 30 mg PO BID 30 days #60 tabs 09/21/23 rosuvastatin 10 mg tablet 10 mg PO DAILY 30 days #30 tabs 09/21/23 sitagliptin phosphate 100 mg 100 mg PO DAILY 30 days #30 tabs 09/21/23 tablet (Januvia) quetiapine 300 mg tablet 300 mg PO BEDTIME 30 days #30 tabs 12/03/23 risperidone 1 mg tablet 1 mg PO BID@0800,1700 30 days #60 12/03/23 tabs ibuprofen 600 mg tablet 600 mg PO Q8H PRN fever or pain 12/09/23 #20 tabs mupirocin 2 % topical ointment 1 appl topical BID #15 grams 12/19/23 cyclobenzaprine 7.5 mg tablet 7.5 mg PO TID PRN muscle spasm #10 12/28/23 tabs ibuprofen 600 mg tablet 600 mg PO Q6H PRN pain #20 tabs 12/28/23 albuterol sulfate 90 mcg/actuation 2 puff inhalation Q6H PRN 01/04/24 aerosol inhaler shortness of breath or wheezing #8.5 grams metformin 1,000 mg tablet 1,000 mg PO BID #60 tabs 01/04/24 Allergies Allergy/AdvReac Type Severity Reaction Status Date / Time glipizide [GLIPIZIDE] Allergy Intermediate ITCHY Verified 01/04/24 04:48 oxycodone [From TYLOX] AdvReac Intermediate CHEST PAINS Verified 01/04/24 04:48 Review of Systems 2 Review of Systems: Yes all other systems are reviewed and are negative [facility] Past Medical History Medical History Anxiety Diabetes Social History Social History Household Members: None Housing: Homeless Do you presently have visiting nurse or other home services: No Unable to assess alcohol history related to: Unknown Alcohol intake: current Alcohol intake frequency: holidays/special occasions only Alcohol type: beer Patient Tobacco Use Status: Current everyday Tobacco user Tobacco use type: Cigarette Cigarette Packs Per Day: 1 Cigarettes Per Day: 20.0 Years Smoked: 40 e-Cigarette/Vaping Use: Former Use Second Hand Smoke Exposure: Yes Substance Use Type: Crack/Cocaine Advance Directives: Yes Advance Directives on File: Yes Advance Directives Date on File: 10/24/21 Do you have a plan to hurt others: No Plan service: No Sexual orientation: Straight/Heterosexual Physical Exam ED Vital Signs: Vital Signs - 24 hr 01/04/24 04:42 Temperature 98.6 F Pulse Rate 106 H Respiratory Rate 20 Blood Pressure 135/83 Pulse Oximetry 100 Oxygen Delivery Method Room Air BMI result Body Mass Index 23.6 Appearance: Alert. Oriented X3. No acute distress. Eyes: PERRLA, No Nystagmus ENT: Pharynx normal. Oral Mucosa moist Neck: Normal inspection. Neck supple. CVS: Normal heart rate and rhythm. Pulses normal. Respiratory: No respiratory distress. Equal air entry bilateral, no wheezing/rales/rhonchi prolonged expiration Abdomen: Soft and nontender. Bowel sounds are present, no mass palpable, no CVA tenderness Skin: Skin warm and dry. Normal skin color. Normal skin turgor. Extremities: No lower extremity edema. No calf tenderness Neuro: Oriented X 3. No motor deficit. No sensory deficit.No cerebellar signs , cranial nerves II-XII intact Medical Decision Making Medical Decision Making MDM Narrative: Patient's labs are stable medication refill advised to follow up with his PCP Lab Data [facility] Lab Attestation statement: I reviewed the patient's lab results. 01/04/24 04:57 01/04/24 04:57 Labs: Lab Results 01/04/24 01/04/24 Range/Units 04:57 05:12 WBC 11.8 H (4.8-10.8) X10*3/uL RBC 5.07 (4.60-5.80) X10*6/uL Hgb 14.6 (14.0-18.0) g/dl Hct 43.1 (42.0-52.0) % MCV 85.0 (80.0-98.0) fL MCH 28.8 (27.0-33.0) pg MCHC 33.9 (31.0-36.0) g/dl RDW 12.8 (11.0-16.0) % Plt Count 272 (160-400) X10*3/uL MPV 10.0 (9.4-12.4) fL Immature Gran % (Auto) 0.3 (0.0-0.4) % Neut % (Auto) 82.2 H (45-73) % Lymph % (Auto) 10.8 L (20-40) % [place] % (Auto) 6.4 (2-11) % Eos % (Auto) 0.0 (0-4) % Baso % (Auto) 0.3 (0-2) % Lymph # (Auto) 1.3 (1.2-4.9) X10*3/uL [place] # (Auto) 0.8 (0.1-1.2) X10*3/uL Eos # (Auto) 0.0 (0.0-0.4) X10*3/uL Baso # (Auto) 0.0 (0.0-0.2) X10*3/uL Abs Immat Gran (auto) 0.03 (0.00-0.03) X10*3/uL Absolute Neuts (auto) 9.7 H (2.0-8.3) x10*3/uL Absolute Nucleated RBC 0.000 (0.0-0.012) X10*3/uL Nucleated RBC % (auto) 0.0 (0.0-0.2) /100WBC Sodium 139 (135-145) mmol/L Potassium 3.8 (3.3-5.1) mmol/L Chloride 103 (96-108) mmol/L Carbon Dioxide 21 L (22-29) mmol/L Anion Gap 19 (12-20) BUN 20 H (9-16) mg/dL Creatinine 1.17 (0.5-1.4) mg/dL Estim Creat Clear Calc 65.1 Estimated GFR > 60 POC Glucose 187 H (60-115) mg/dL Random Glucose 207 H (60-115) mg/dL Calcium 9.7 D (8.4-10.2) mg/dL Total Bilirubin 0.5 (0.0-1.0) mg/dL AST 41 H (5-37) U/L ALT 40 (0-40) U/L Alkaline Phosphatase 83 (39-117) U/L Total Protein 8.1 H (6.5-8.0) g/dL Albumin 4.5 (3.5-5.0) g/dL Discharge Plan Discharge Clinical Impression: Medication refill Patient Disposition: Still a Patient Prescriptions: New albuterol sulfate 90 mcg/actuation HFA aerosol inhaler 2 puff inhalation Q6H PRN (Reason: shortness of breath or wheezing) Qty: 8.5 0RF metformin 1,000 mg tablet 1,000 mg PO BID Qty: 60 0RF No Action nicotine (polacrilex) 2 mg Gum 4 mg buccal Q2H PRN (Reason: Nicotine Cravings) 30 Days Qty: 120 1RF aspirin 81 mg tablet,delayed release (DR/EC) 81 mg PO DAILY 30 Days Qty: 30 0RF paroxetine HCl 30 mg tablet 30 mg PO BID 30 Days Qty: 60 0RF metformin 1,000 mg tablet 1,000 mg PO BID 30 Days Qty: 60 0RF albuterol sulfate [Ventolin HFA] 90 mcg/actuation HFA aerosol inhaler 2 puff INHALATION QID PRN (Reason: wheezing) 300 Days Qty: 1 0RF rosuvastatin 10 mg tablet 10 mg PO DAILY 30 Days Qty: 30 0RF fluticasone propion-salmeterol [Advair HFA] 115-21 mcg/actuation HFA aerosol inhaler 2 puff INHALATION BID 30 Days Qty: 1 0RF Januvia 100 mg tablet 100 mg PO DAILY 30 Days Qty: 30 0RF insulin glargine 100 unit/mL Solution 15 unit subcut BEDTIME 30 Days Qty: 15 0RF omeprazole 20 mg capsule,delayed release(DR/EC) 20 mg PO BEDTIME quetiapine 300 mg Tablet 300 mg PO BEDTIME 30 Days Qty: 30 0RF risperidone 1 mg Tablet 1 mg PO BID@0800,1700 30 Days Qty: 60 0RF ibuprofen 600 mg tablet 600 mg PO Q8H PRN (Reason: fever or pain) Qty: 20 0RF gabapentin 400 mg capsule 300 mg PO BID doxycycline hyclate 100 mg tablet 100 mg PO BID lorazepam 1 mg tablet 1 mg PO TID mupirocin 2 % ointment 1 appl topical BID Qty: 15 0RF ibuprofen 600 mg tablet 600 mg PO Q6H PRN (Reason: pain) Qty: 20 0RF cyclobenzaprine 7.5 mg tablet 7.5 mg PO TID PRN (Reason: muscle spasm) Qty: 10 0RF Print Language: [place] Verdean
[2024-01-04 05:15] LABS: Alanine Aminotransferase 40 U/L (0-40); Albumin Level 4.5 g/dL (3.5-5.0); Alkaline Phosphatase 83 U/L (39-117); Anion Gap 19 (12-20); Aspartate Amino Transferase 41 U/L (5-37); Bilirubin Total 0.5 mg/dL (0.0-1.0); Blood Urea Nitrogen 20 mg/dL (9-16); Calcium 9.7 mg/dL (8.4-10.2); Carbon Dioxide 21 mmol/L (22-29); Chloride 103 mmol/L (96-108); Creatinine Clr Calc Pharmacy 65.1; Estimated Glomerular Filt Rate > 60; Glucose Random 207 mg/dL (60-115); Potassium 3.8 mmol/L (3.3-5.1); Sodium 139 mmol/L (135-145); Total Protein 8.1 g/dL (6.5-8.0)
[2024-01-04 05:16] LABS: Glucose, Whole Blood 187 mg/dL (60-115)
[2024-01-04 05:38] LABS: Influenza A PCR NEGATIVE (Negative); Influenza B PCR NEGATIVE (Negative); Resp Syncy Virus RNA Qual PCR NEGATIVE (Negative); SARS COV2 PCR INHOUSE NEGATIVE (Negative)
[2024-01-04] MEDS: metFORMIN HCl 1,000 MG TABLET 1000 MG PO (05:40)
--- NOTE | 2024-01-04 05:42 | PC.NURSE ---
provider into discuss missing medication, pt a&o, respiratory rate normal, no not using accessory muscle.
--- NOTE | 2024-01-04 05:49 | PC.NURSE ---
medicated pt, reviewed discharge instructions with pt. pt verbalized understanding, no sign of distress upon discharge.
[2024-01-04 06:00] VITALS: BP 130/80; PULSE 85; RESP 20; TEMP 36.4; O2SAT 100
== END 2024-01-04 06:00 | disposition home or self-care (01) ==
PROVIDERS: Emergency Provider Internal Medicine
DX: R06.02 Shortness of breath (principal); E11.9 Type 2 diabetes mellitus without complications; Z79.899 Other long term (current) drug therapy; Z76.0 Encounter for issue of repeat prescription
CPT/HCPCS: 0241U; 71045; 80053; 82947; 85025; 99282; 99283

== ENCOUNTER 2024-01-14 16:41 | Emergency (ER) | payer OTHER, SELFPAY | END 2024-01-14 17:32 | disposition left against medical advice (07) | PROVIDERS: Emergency Provider Emergency Medicine | DX: M79.671 Pain in right foot (principal); M79.672 Pain in left foot ==

== ENCOUNTER → 2024-01-25 18:59 | Outpatient (BNV) | payer OTHER, SELFPAY | PROVIDERS: Emergency Provider Student in an Organized Health Care Education/Training Program; Visit Provider Internal Medicine | DX: R07.9 Chest pain, unspecified (principal) | CPT/HCPCS: 93010 ==

== ENCOUNTER 2024-01-25 19:03 | Emergency (ER) | payer OTHER, SELFPAY ==
--- NOTE | 2024-01-25 | ECG_ITS ---
Test Reason : cp Blood Pressure : / mmHG Vent. Rate : 088 BPM Atrial Rate : 088 BPM P-R Int : 138 ms QRS Dur : 080 ms QT Int : 370 ms P-R-T Axes : 049 044 018 degrees QTc Int : 447 ms Normal sinus rhythm Normal ECG When compared with ECG of 27-DEC-2023 19:36, No significant changes seen Referred By: Generic ED Physician Electronically Signed By:EARLINE GALLAGHER
--- NOTE | ~2024-01-25 | XR_ITS ---
EXAMINATION: XR CHEST CLINICAL INFORMATION: chest pain COMPARISON: 01/04/2024 TECHNIQUE: 2 views of the chest were obtained. FINDINGS: No significant abnormality is noted involving the heart, lungs, mediastinum, bony thorax or soft tissues. XR/XR chest 2V IMPRESSION: Unremarkable examination. Electronically signed by: Scott Mock MD 01/25/2024 09:09 PM [facility]
--- NOTE | ~2024-01-25 | US_ITS ---
EXAMINATION: US TRIPLEX LOWER EXTREMITY, LEFT CLINICAL INFORMATION: Calf pain. COMPARISON: None available. TECHNIQUE: Color-flow triplex imaging with spectral analysis and compression Doppler were performed on the left lower extremity. FINDINGS: Respiratory variation, normal compression and augmented flow are noted throughout the left lower extremity. The visualized common femoral vein, superficial femoral vein, profunda femoral vein, popliteal vein and midcalf peroneal and posterior tibial venous segments show no evidence of deep venous thrombosis. There is no Edwards's cyst. US/US venous duplex LE LT IMPRESSION: No evidence of deep venous thrombosis involving the left lower extremity. Electronically signed by: Louis Berrios MD 01/26/2024 02:19 AM [facility]
[2024-01-25 19:09] VITALS: BP 121/61; PULSE 103; RESP 20; TEMP 36.8; O2SAT 97; BMI 24.9
--- NOTE | 2024-01-25 19:12 | ED_ITS ---
HPI - General Adult General Chief complaint: Chest Pain Stated complaint: chest pain, numbness L leg Time Seen by Provider: 01/25/24 23:17 History of Present Illness ED Provider: Darrius [facility] narrative: 51-year-old male with past medical history of depression, polysubstance abuse presenting for chest pain and left leg numbness. Patient states that his symptoms began earlier in the evening with mild sharp left-sided chest pain. He also endorses experiencing left calf numbness. He states he has had similar symptoms in the past with a negative workup. He denies trauma, sob, abd pain, n/v/d. He denies recent travel and recent drug/alcohol use. Related Data Home Medications ?Medication ?Instructions ?Recorded ?Confirmed lorazepam 1 mg tablet 1 mg PO TID 06/25/23 12/26/23 omeprazole 20 mg capsule,delayed 20 mg PO BEDTIME 11/29/23 12/26/23 release doxycycline hyclate 100 mg tablet 100 mg PO BID 12/26/23 12/26/23 gabapentin 400 mg capsule 300 mg PO BID 12/26/23 12/26/23 Previous Rx's ?Medication ?Instructions ?Recorded albuterol sulfate 90 mcg/actuation 2 puff inhalation QID PRN wheezing 09/21/23 aerosol inhaler (Ventolin HFA) 300 days #1 inhaler aspirin 81 mg tablet,delayed 81 mg PO DAILY 30 days #30 tabs 09/21/23 release fluticasone propionate 115 2 puff inhalation BID 30 days #1 09/21/23 mcg-salmeterol 21 mcg/actuation inhaler HFA inhaler (Advair HFA) insulin glargine 100 unit/mL 15 unit (0.15 mL) subcut BEDTIME 09/21/23 subcutaneous solution 30 days #15 mL metformin 1,000 mg tablet 1,000 mg PO BID 30 days #60 tabs 09/21/23 nicotine (polacrilex) 2 mg gum 4 mg buccal Q2H PRN Nicotine 09/21/23 Cravings 30 days #120 ea paroxetine HCl 30 mg tablet 30 mg PO BID 30 days #60 tabs 09/21/23 rosuvastatin 10 mg tablet 10 mg PO DAILY 30 days #30 tabs 09/21/23 sitagliptin phosphate 100 mg 100 mg PO DAILY 30 days #30 tabs 09/21/23 tablet (Januvia) quetiapine 300 mg tablet 300 mg PO BEDTIME 30 days #30 tabs 12/03/23 risperidone 1 mg tablet 1 mg PO BID@0800,1700 30 days #60 12/03/23 tabs ibuprofen 600 mg tablet 600 mg PO Q8H PRN fever or pain 12/09/23 #20 tabs mupirocin 2 % topical ointment 1 appl topical BID #15 grams 12/19/23 cyclobenzaprine 7.5 mg tablet 7.5 mg PO TID PRN muscle spasm #10 12/28/23 tabs ibuprofen 600 mg tablet 600 mg PO Q6H PRN pain #20 tabs 12/28/23 albuterol sulfate 90 mcg/actuation 2 puff inhalation Q6H PRN 01/04/24 aerosol inhaler shortness of breath or wheezing #8.5 grams metformin 1,000 mg tablet 1,000 mg PO BID #60 tabs 01/04/24 Allergies Allergy/AdvReac Type Severity Reaction Status Date / Time glipizide [GLIPIZIDE] Allergy Intermediate ITCHY Verified 01/25/24 19:11 oxycodone [From TYLOX] AdvReac Intermediate CHEST PAINS Verified 01/25/24 19:11 Review of Systems 2 Review of Systems: patient endorses chest pain and left leg numbness Yes all other systems are reviewed and are negative [facility] Past Medical History Attestation statement: The following information was validated with the patient. [facility] Narrative: PSUD, MDD Source: old records reviewed Medical History Anxiety Diabetes Social History Social History Household Members: None Housing: Homeless Do you presently have visiting nurse or other home services: No Unable to assess alcohol history related to: Unknown Alcohol intake: current Alcohol intake frequency: does not drink Alcohol type: beer Patient Tobacco Use Status: Current everyday Tobacco user Tobacco use type: Cigarette Cigarette Packs Per Day: 1 Cigarettes Per Day: 20.0 Years Smoked: 40 Smoked in Last 30 Days: Yes e-Cigarette/Vaping Use: Former Use Second Hand Smoke Exposure: Yes Use of substances other than those prescribed or required for medical reasons: No Substance Use Type: Crack/Cocaine Advance Directives: Yes Advance Directives on File: Yes Advance Directives Date on File: 10/24/21 Do you have a plan to hurt others: No Plan service: No Sexual orientation: Straight/Heterosexual Physical Exam ED Vital Signs: Vital Signs - 24 hr 01/25/24 19:09 01/25/24 23:21 Temperature 98.2 F 97.7 F Pulse Rate 103 H 70 Respiratory Rate 20 12 Blood Pressure 121/61 110/66 Pulse Oximetry 97 97 Oxygen Delivery Method Room Air Room Air BMI result Body Mass Index 24.9 well-appearing male in no acute distress, lungs clear to auscultation bilaterally, Normal S1-S2 regular rate and rhythm, left chest wall tenderness to palpation, abdomen is soft nontender nondistended, no focal neurologic deficits appreciated, left calf tenderness to palpation, strength sensation equal in both upper and lower extremities, strong and equal bilateral DP pulses Course Course Course Narrative: RME performed by Kandi Lyles PA-C. Patient is a 59 year old assigned male at presenting to the emergency department with chest pain. Detailed physical exam and review of systems are deferred to the meter tester primary. EKG, labs, and imaging ordered. Patient placed back in the waiting room pending room availability and results. Reevaluation(s) Reevaluation #1: negative DVT study atypical symptoms stable for DC Medications Administered Discontinued Medications Generic Name Dose Route Start Last Admin Trade Name Freq PRN Reason Stop Dose Admin Ketorolac Tromethamine 15 mg 01/26/24 00:50 01/26/24 01:14 Ketorolac Tromethamine 15 Mg/Ml Vial IVPUSH 01/26/24 00:51 15 mg ONCE ONE Administration Medical Decision Making Medical Decision Making [facility] Narrative: 59-year-old male presenting for chest pain and left leg numbness. I am concerned for the following; electrolyte/metabolic disturbance, blood clot, PAD - I found patient sleeping comfortably in his stretcher when I went to examine him. He does not strike me as someone experiencing an acute MT or aortic dissection. Further his vitals/physical exam are reassuring for other causes of his symptoms - labs notable for electrolytes within normal limits, normal creatinine, stable H&H, no white count, negative troponins x2 - I reviewed patient's EKG and do not appreciate any signs of ischemia - I reviewed patient's chest x-ray and did not appreciate a widened mediastinum and the radiologist's impression is negative for acute findings - I reviewed the patient's ultrasound did not appreciate a large clot however final radiologist read is pending - Pt signed out to Dr. Marion Lab Data 01/25/24 19:21 01/25/24 19:21 Labs: Lab Results 01/25/24 01/25/24 01/26/24 Range/Units 19:20 19:21 00:27 WBC 8.8 (4.8-10.8) X10*3/uL RBC 4.47 L (4.60-5.80) X10*6/uL Hgb 13.1 L (14.0-18.0) g/dl Hct 38.0 L (42.0-52.0) % MCV 85.0 (80.0-98.0) fL MCH 29.3 (27.0-33.0) pg MCHC 34.5 (31.0-36.0) g/dl RDW 12.4 (11.0-16.0) % Plt Count 210 (160-400) X10*3/uL MPV 10.0 (9.4-12.4) fL Immature Gran % (Auto) 0.6 H (0.0-0.4) % Neut % (Auto) 64.4 (45-73) % Lymph % (Auto) 23.5 (20-40) % [place] % (Auto) 9.2 (2-11) % Eos % (Auto) 1.8 (0-4) % Baso % (Auto) 0.5 (0-2) % Lymph # (Auto) 2.1 (1.2-4.9) X10*3/uL [place] # (Auto) 0.8 (0.1-1.2) X10*3/uL Eos # (Auto) 0.2 (0.0-0.4) X10*3/uL Baso # (Auto) 0.0 (0.0-0.2) X10*3/uL Abs Immat Gran (auto) 0.05 H (0.00-0.03) X10*3/uL Absolute Neuts (auto) 5.7 (2.0-8.3) x10*3/uL Absolute Nucleated RBC 0.000 (0.0-0.012) X10*3/uL Nucleated RBC % (auto) 0.0 (0.0-0.2) /100WBC Sodium 136 (135-145) mmol/L Potassium 4.3 (3.3-5.1) mmol/L Chloride 99 (96-108) mmol/L Carbon Dioxide 30 H (22-29) mmol/L Anion Gap 11 L (12-20) BUN 19 H (9-16) mg/dL Creatinine 1.05 (0.5-1.4) mg/dL Estim Creat Clear Calc 79.1 Estimated GFR > 60 Random Glucose 119 H (60-115) mg/dL Calcium 8.8 D (8.4-10.2) mg/dL Magnesium 1.9 (1.6-2.6) mg/dL Total Bilirubin 0.4 (0.0-1.0) mg/dL AST 46 H (5-37) U/L ALT 71 H (0-40) U/L Alkaline Phosphatase 74 (39-117) U/L Troponin I High Sens < 2.7 < 2.7 (<3.5-35.0) ng/L Total Protein 7.2 (6.5-8.0) g/dL Albumin 3.9 (3.5-5.0) g/dL Influenza Type A (PCR) NEGATIVE (Negative) Influenza Type B (PCR) NEGATIVE (Negative) RSV RNA Qual (PCR) NEGATIVE (Negative) SARS-CoV-2 RNA (RT-PCR) NEGATIVE (Negative) Discharge Plan Discharge Clinical Impression: Chest pain Qualifiers: Chest pain type: unspecified Qualified Code(s): R07.9 - Chest pain, unspecified Patient Disposition: Home, Self-Care Instructions: Chest Pain (ED) Additional Instructions: labs reassuring xray normal no blood clot in the leg please return for any worsening symptoms or concerns. Prescriptions: No Action nicotine (polacrilex) 2 mg Gum 4 mg buccal Q2H PRN (Reason: Nicotine Cravings) 30 Days Qty: 120 1RF aspirin 81 mg tablet,delayed release (DR/EC) 81 mg PO DAILY 30 Days Qty: 30 0RF paroxetine HCl 30 mg tablet 30 mg PO BID 30 Days Qty: 60 0RF metformin 1,000 mg tablet 1,000 mg PO BID 30 Days Qty: 60 0RF albuterol sulfate [Ventolin HFA] 90 mcg/actuation HFA aerosol inhaler 2 puff INHALATION QID PRN (Reason: wheezing) 300 Days Qty: 1 0RF rosuvastatin 10 mg tablet 10 mg PO DAILY 30 Days Qty: 30 0RF fluticasone propion-salmeterol [Advair HFA] 115-21 mcg/actuation HFA aerosol inhaler 2 puff INHALATION BID 30 Days Qty: 1 0RF Januvia 100 mg tablet 100 mg PO DAILY 30 Days Qty: 30 0RF insulin glargine 100 unit/mL Solution 15 unit subcut BEDTIME 30 Days Qty: 15 0RF omeprazole 20 mg capsule,delayed release(DR/EC) 20 mg PO BEDTIME quetiapine 300 mg Tablet 300 mg PO BEDTIME 30 Days Qty: 30 0RF risperidone 1 mg Tablet 1 mg PO BID@0800,1700 30 Days Qty: 60 0RF ibuprofen 600 mg tablet 600 mg PO Q8H PRN (Reason: fever or pain) Qty: 20 0RF gabapentin 400 mg capsule 300 mg PO BID doxycycline hyclate 100 mg tablet 100 mg PO BID lorazepam 1 mg tablet 1 mg PO TID mupirocin 2 % ointment 1 appl topical BID Qty: 15 0RF ibuprofen 600 mg tablet 600 mg PO Q6H PRN (Reason: pain) Qty: 20 0RF cyclobenzaprine 7.5 mg tablet 7.5 mg PO TID PRN (Reason: muscle spasm) Qty: 10 0RF albuterol sulfate 90 mcg/actuation HFA aerosol inhaler 2 puff inhalation Q6H PRN (Reason: shortness of breath or wheezing) Qty: 8.5 0RF metformin 1,000 mg tablet 1,000 mg PO BID Qty: 60 0RF Print Language: Ukrainian
[2024-01-25 19:25] LABS: MANUAL DIFF FLAG NO
[2024-01-25 19:34] LABS: Basophils Percent Auto 0.5 % (0-2); Eosinophils Absolute Auto 0.2 X10*3/uL (0.0-0.4); Eosinophils Percent Auto 1.8 % (0-4); Hemoglobin 13.1 g/dl (14.0-18.0); Imm Gran Abs Auto 0.05 X10*3/uL (0.00-0.03); Imm Gran Pct Auto 0.6 % (0.0-0.4); Lymphocytes Absolute Auto 2.1 X10*3/uL (1.2-4.9); Lymphocytes Percent Auto 23.5 % (20-40); Mean Corpuscular HGB Conc 34.5 g/dl (31.0-36.0); Mean Corpuscular Hemoglobin 29.3 pg (27.0-33.0); Monocytes Absolute Auto 0.8 X10*3/uL (0.1-1.2); Monocytes Percent Auto 9.2 % (2-11); Neutrophils Absolute Auto 5.7 x10*3/uL (2.0-8.3); Neutrophils Percent Auto 64.4 % (45-73); Platelet Count 210 X10*3/uL (160-400); Red Blood Count 4.47 X10*6/uL (4.60-5.80); Red Cell Distribution Width 12.4 % (11.0-16.0); White Blood Count 8.8 X10*3/uL (4.8-10.8)
[2024-01-25 19:41] LABS: Alanine Aminotransferase 71 U/L (0-40); Albumin Level 3.9 g/dL (3.5-5.0); Alkaline Phosphatase 74 U/L (39-117); Anion Gap 11 (12-20); Aspartate Amino Transferase 46 U/L (5-37); Bilirubin Total 0.4 mg/dL (0.0-1.0); Blood Urea Nitrogen 19 mg/dL (9-16); Calcium 8.8 mg/dL (8.4-10.2); Carbon Dioxide 30 mmol/L (22-29); Chloride 99 mmol/L (96-108); Creatinine Clr Calc Pharmacy 79.1; Estimated Glomerular Filt Rate > 60; Glucose Random 119 mg/dL (60-115); Magnesium 1.9 mg/dL (1.6-2.6); Potassium 4.3 mmol/L (3.3-5.1); Sodium 136 mmol/L (135-145); Total Protein 7.2 g/dL (6.5-8.0)
[2024-01-25 19:53] LABS: Troponin-I High Sensitivity < 2.7 ng/L (<3.5-35.0)
[2024-01-25 20:02] LABS: Influenza A PCR NEGATIVE (Negative); Influenza B PCR NEGATIVE (Negative); Resp Syncy Virus RNA Qual PCR NEGATIVE (Negative); SARS COV2 PCR INHOUSE NEGATIVE (Negative)
[2024-01-25 23:21] VITALS: BP 110/66; PULSE 70; RESP 12; TEMP 36.5; O2SAT 97
[2024-01-26 00:53] LABS: Troponin-I High Sensitivity < 2.7 ng/L (<3.5-35.0)
[2024-01-26] MEDS: Ketorolac Tromethamine 15 MG/ML VIAL IVPUSH (01:14)
[2024-01-26 02:29] VITALS: BP 117/60; PULSE 79; RESP 18; TEMP 36.7; O2SAT 97
[2024-01-26 02:42] VITALS: BP 117/60; PULSE 79; RESP 18; TEMP 36.7; O2SAT 97
== END 2024-01-26 02:43 | disposition home or self-care (01) ==
PROVIDERS: Physician Assistant Medical; Emergency Provider Student in an Organized Health Care Education/Training Program
DX: R07.9 Chest pain, unspecified (principal); M79.662 Pain in left lower leg; E11.9 Type 2 diabetes mellitus without complications; Z79.899 Other long term (current) drug therapy; Z03.818 Encounter for observation for suspected exposure to other biological agents ruled out
CPT/HCPCS: 0241U; 36415; 71046; 80053; 83735; 84484; 85025; 93005; 93971; 96372; 99284; 99285; J1885

== ENCOUNTER 2024-01-26 22:47 | Emergency (ER) | payer OTHER, SELFPAY ==
[2024-01-26 22:49] VITALS: BP 135/73; PULSE 90; RESP 20; TEMP 37; O2SAT 98; BMI 28.2
--- NOTE | 2024-01-26 23:40 | ED_ITS ---
HPI - Psych General Chief Complaint: Psychiatric Symptoms Stated Complaint: suicidal, depressed Time Seen by Provider: 01/26/24 23:22 Source: patient, EMS and old records reviewed Mode of arrival: ambulatory Limitations: no limitations History of Present Illness ED Provider: MICHAEL ONTIVEROS Narrative: 59 yo male with PMH of substance abuse disorder, MDD, substance induced psychosis here with c/o thinking about SI has no access to guns has no real plan. Has been seen several times for the same in the past has not followed up with CARE team treatments, went upstairs and signed out. He states he has nowhere to go. I asked him about why he signed out last time and that he is not following up with acute care plans. I also asked why this was time was different and that most likely he would not go inpatient. He then states he is going to solange me and that he will leave and hurt himself. He then asked if I was threatening him after I offered him a bed for the night. He became very hostile and agitated when I asked him about why he is not following up with acute treatment plans. MD complaint: feels depressed Onset (ago): month(s) Duration: intermittent History of same: Yes Relieving factors: none Exacerbating factors: drug use and other Context: significant life stressor (homeless) Associated psychiatric symptoms: depression and suicidal ideation Associated symptoms: denies other symptoms Treatments prior to arrival: none If self harm: admits thoughts of self harm Related Data Home Medications ?Medication ?Instructions ?Recorded ?Confirmed lorazepam 1 mg tablet 1 mg PO TID 06/25/23 12/26/23 omeprazole 20 mg capsule,delayed 20 mg PO BEDTIME 11/29/23 12/26/23 release doxycycline hyclate 100 mg tablet 100 mg PO BID 12/26/23 12/26/23 gabapentin 400 mg capsule 300 mg PO BID 12/26/23 12/26/23 Previous Rx's ?Medication ?Instructions ?Recorded albuterol sulfate 90 mcg/actuation 2 puff inhalation QID PRN wheezing 09/21/23 aerosol inhaler (Ventolin HFA) 300 days #1 inhaler aspirin 81 mg tablet,delayed 81 mg PO DAILY 30 days #30 tabs 09/21/23 release fluticasone propionate 115 2 puff inhalation BID 30 days #1 09/21/23 mcg-salmeterol 21 mcg/actuation inhaler HFA inhaler (Advair HFA) insulin glargine 100 unit/mL 15 unit (0.15 mL) subcut BEDTIME 09/21/23 subcutaneous solution 30 days #15 mL metformin 1,000 mg tablet 1,000 mg PO BID 30 days #60 tabs 09/21/23 nicotine (polacrilex) 2 mg gum 4 mg buccal Q2H PRN Nicotine 09/21/23 Cravings 30 days #120 ea paroxetine HCl 30 mg tablet 30 mg PO BID 30 days #60 tabs 09/21/23 rosuvastatin 10 mg tablet 10 mg PO DAILY 30 days #30 tabs 09/21/23 sitagliptin phosphate 100 mg 100 mg PO DAILY 30 days #30 tabs 09/21/23 tablet (Januvia) quetiapine 300 mg tablet 300 mg PO BEDTIME 30 days #30 tabs 12/03/23 risperidone 1 mg tablet 1 mg PO BID@0800,1700 30 days #60 12/03/23 tabs ibuprofen 600 mg tablet 600 mg PO Q8H PRN fever or pain 12/09/23 #20 tabs mupirocin 2 % topical ointment 1 appl topical BID #15 grams 12/19/23 cyclobenzaprine 7.5 mg tablet 7.5 mg PO TID PRN muscle spasm #10 12/28/23 tabs ibuprofen 600 mg tablet 600 mg PO Q6H PRN pain #20 tabs 12/28/23 albuterol sulfate 90 mcg/actuation 2 puff inhalation Q6H PRN 01/04/24 aerosol inhaler shortness of breath or wheezing #8.5 grams metformin 1,000 mg tablet 1,000 mg PO BID #60 tabs 01/04/24 Allergies Allergy/AdvReac Type Severity Reaction Status Date / Time glipizide [GLIPIZIDE] Allergy Intermediate ITCHY Verified 01/26/24 22:52 oxycodone [From TYLOX] AdvReac Intermediate CHEST PAINS Verified 01/26/24 22:52 Review of Systems 2 Review of Systems: Constitutional : No Fever, No Chills ENT/Mouth : No Ear Pain, No Nasal Congestion, No sore throat Eyes: No Eye Pain, No Swelling, No Redness Cardiovascular : No Chest Pain, No SOB Respiratory : No Cough, No Sputum, No Dyspnea Gastrointestinal : No Nausea, No Vomiting, No Diarrhea, No Hematochezia, No Melena Genitourinary : No Dysuria, No Urinary Frequency, No Hematuria Musculoskeletal : No Myalgias Skin : No Skin Lesions, No rash Neuro : No Weakness, No Numbness, No Paresthesias, No Dizziness, No Headache Psych : positive Anxiety, positive Depression, positive SI no HI All other systems reviewed and are negative PMFSH Past Medical History Attestation statement: The following information was validated with the patient. Source: old records reviewed Medical History (Updated 01/27/24 @ 00:06 by Rita Marion DO) MDD (major depressive disorder), recurrent episode, moderate Cocaine use disorder Substance-induced psychotic disorder Anxiety Diabetes Social History Social History Household Members: None Housing: Homeless Do you presently have visiting nurse or other home services: No Unable to assess alcohol history related to: Refusing to respond Alcohol intake: current Alcohol intake frequency: does not drink Alcohol type: beer Patient Tobacco Use Status: Current everyday Tobacco user Tobacco use type: Cigarette Cigarette Packs Per Day: 1 Cigarettes Per Day: 20.0 Years Smoked: 40 Smoked in Last 30 Days: Yes e-Cigarette/Vaping Use: Former Use Second Hand Smoke Exposure: Yes Use of substances other than those prescribed or required for medical reasons: Yes Substance Use Type: Crack/Cocaine Substance Use Type Other:: negative UTox today Substance Use Frequency: Chronic Longstanding Last Used Substance: Days (ago) Any prior treatment program specific to substance use: Yes Advance Directives: Yes Advance Directives on File: Yes Advance Directives Date on File: 10/24/21 service: No Sexual orientation: Straight/Heterosexual Physical Exam 2 Vital Signs: Vital Signs: Last Vital Signs Temp 98.6 F 01/26/24 22:49 Pulse 90 01/26/24 22:49 Resp 16 01/27/24 02:00 BP 135/73 01/26/24 22:49 Pulse Ox 98 01/26/24 22:49 O2 Del Method Room Air 01/27/24 02:00 BMI result Body Mass Index 28.2 Appearance: Alert. Oriented X3. No acute distress. Agitated Eyes: Pupils equal, round and reactive to light. ENT: Pharynx normal. Neck: Normal inspection. CVS: Pulses normal. Respiratory: No respiratory distress. Abdomen: atraumatic Skin: Skin warm and dry. Normal skin color. Extremities: No lower extremity edema. Neuro: Oriented X 3. No motor deficit. No sensory deficit. CN2-12 intact Course Course Course Narrative: cleared by CARE team physician observation ended 630am Medical Decision Making Medical Decision Making [facility] Narrative: 59 yo male with PMH of substance abuse disorder, MDD, substance induced psychosis here with c/o SI states he thought about it - he is seen here all the time for the same complaint and never follows up when I tried to ask him about it he became very agitated. I am going to order labs refer to CARE team but this is chronic complaints and no effort on his part to follow up. I believe he will likely be DC. Differential Diagnosis Differential Diagnoses: The differential diagnosis associated with the presentation includes depression, homelessness, chronic SI Admission/Observation Consideration of admission/observation: Escalation of care including admission/observation considered physician observation started at 1205am Consult Healthcare Provider Management of the patient was discussed with: Behavioral Health Provider outpatient referral Lab Data [facility] Lab Attestation statement: I reviewed the patient's lab results. 01/26/24 23:35 01/26/24 23:35 Labs: Lab Results 01/26/24 01/26/24 Range/Units 23:35 23:36 WBC 10.3 (4.8-10.8) X10*3/uL RBC 4.80 (4.60-5.80) X10*6/uL Hgb 13.8 L (14.0-18.0) g/dl Hct 40.0 L (42.0-52.0) % MCV 83.3 (80.0-98.0) fL MCH 28.8 (27.0-33.0) pg MCHC 34.5 (31.0-36.0) g/dl RDW 12.6 (11.0-16.0) % Plt Count 244 (160-400) X10*3/uL MPV 9.8 (9.4-12.4) fL Immature Gran % (Auto) 0.9 H (0.0-0.4) % Neut % (Auto) 69.9 (45-73) % Lymph % (Auto) 19.7 L (20-40) % [place] % (Auto) 7.6 (2-11) % Eos % (Auto) 1.5 (0-4) % Baso % (Auto) 0.4 (0-2) % Lymph # (Auto) 2.0 (1.2-4.9) X10*3/uL [place] # (Auto) 0.8 (0.1-1.2) X10*3/uL Eos # (Auto) 0.2 (0.0-0.4) X10*3/uL Baso # (Auto) 0.0 (0.0-0.2) X10*3/uL Abs Immat Gran (auto) 0.09 H (0.00-0.03) X10*3/uL Absolute Neuts (auto) 7.2 (2.0-8.3) x10*3/uL Absolute Nucleated RBC 0.000 (0.0-0.012) X10*3/uL Nucleated RBC % (auto) 0.0 (0.0-0.2) /100WBC Sodium 136 (135-145) mmol/L Potassium 4.2 (3.3-5.1) mmol/L Chloride 103 (96-108) mmol/L Carbon Dioxide 24 (22-29) mmol/L Anion Gap 13 (12-20) BUN 18 H (9-16) mg/dL Creatinine 1.05 (0.5-1.4) mg/dL Estim Creat Clear Calc 78.4 Estimated GFR > 60 Random Glucose 165 H (60-115) mg/dL Calcium 8.8 (8.4-10.2) mg/dL Magnesium 2.0 (1.6-2.6) mg/dL Total Bilirubin 0.3 (0.0-1.0) mg/dL Direct Bilirubin 0.1 (0.0-0.5) mg/dL AST 44 H (5-37) U/L ALT 72 H (0-40) U/L Alkaline Phosphatase 79 (39-117) U/L Total Protein 7.6 (6.5-8.0) g/dL Albumin 4.2 (3.5-5.0) g/dL Urine Opiates Screen Not Detected (Not Detect) Ur Buprenorphine Scrn Not Detected (Not Detect) ng/mL Ur Oxycodone Screen Not Detected (Not Detect) ng/mL Urine Methadone Screen Not Detected (Not Detect) ng/mL Urine Fentanyl Screen Not Detected (Not Detect) Ur Barbiturates Screen Not Detected (Not Detect) Ur Phencyclidine Scrn Not Detected (Not Detect) Ur Amphetamines Screen Not Detected (Not Detect) U Benzodiazepines Scrn Not Detected (Not Detect) Urine Cocaine Screen Not Detected (Not Detect) U Marijuana (THC) Screen Not Detected (Not Detect) Ethyl Alcohol < 10 mg/dL External Record Review External record reviewed: Inpatient record and Outpatient record Social Determinants Patient?s care significantly limited by Social Determinants of Health including: Inadequate housing and Problems related to primary support group Discharge Plan Discharge Clinical Impression: Homeless single person Depression Qualifiers: Depression Type: unspecified Qualified Code(s): F32.A - Depression, unspecified Patient Disposition: Home, Self-Care Instructions: Depression (ED) Additional Instructions: please follow up with the CARE plan and individual therapy Prescriptions: No Action nicotine (polacrilex) 2 mg Gum 4 mg buccal Q2H PRN (Reason: Nicotine Cravings) 30 Days Qty: 120 1RF aspirin 81 mg tablet,delayed release (DR/EC) 81 mg PO DAILY 30 Days Qty: 30 0RF paroxetine HCl 30 mg tablet 30 mg PO BID 30 Days Qty: 60 0RF metformin 1,000 mg tablet 1,000 mg PO BID 30 Days Qty: 60 0RF albuterol sulfate [Ventolin HFA] 90 mcg/actuation HFA aerosol inhaler 2 puff INHALATION QID PRN (Reason: wheezing) 300 Days Qty: 1 0RF rosuvastatin 10 mg tablet 10 mg PO DAILY 30 Days Qty: 30 0RF fluticasone propion-salmeterol [Advair HFA] 115-21 mcg/actuation HFA aerosol inhaler 2 puff INHALATION BID 30 Days Qty: 1 0RF Januvia 100 mg tablet 100 mg PO DAILY 30 Days Qty: 30 0RF insulin glargine 100 unit/mL Solution 15 unit subcut BEDTIME 30 Days Qty: 15 0RF omeprazole 20 mg capsule,delayed release(DR/EC) 20 mg PO BEDTIME quetiapine 300 mg Tablet 300 mg PO BEDTIME 30 Days Qty: 30 0RF risperidone 1 mg Tablet 1 mg PO BID@0800,1700 30 Days Qty: 60 0RF ibuprofen 600 mg tablet 600 mg PO Q8H PRN (Reason: fever or pain) Qty: 20 0RF gabapentin 400 mg capsule 300 mg PO BID doxycycline hyclate 100 mg tablet 100 mg PO BID lorazepam 1 mg tablet 1 mg PO TID mupirocin 2 % ointment 1 appl topical BID Qty: 15 0RF ibuprofen 600 mg tablet 600 mg PO Q6H PRN (Reason: pain) Qty: 20 0RF cyclobenzaprine 7.5 mg tablet 7.5 mg PO TID PRN (Reason: muscle spasm) Qty: 10 0RF albuterol sulfate 90 mcg/actuation HFA aerosol inhaler 2 puff inhalation Q6H PRN (Reason: shortness of breath or wheezing) Qty: 8.5 0RF metformin 1,000 mg tablet 1,000 mg PO BID Qty: 60 0RF Interventions: [place]-Suicide Risk Severity Scale Last Done: 01/26/24 22:53 Print Language: Urdu
--- NOTE | 2024-01-26 23:41 | PC.NURSE ---
Labs drawn and sent for analysis. Awaiting results. to bedside to speak with patient. Aware of plan to keep the patient overnight, with plan to discharge in the morning. Pt is homeless and was asking for a place to sleep away from the cold weather/outdoor conditions. Pt verbally expressed agitation with , but is redirectable. Requested and given sandwich and warm blanket. Belongings secured in [employer] #3. Care ongoing by this RN.
[2024-01-26 23:43] LABS: Basophils Percent Auto 0.4 % (0-2); Eosinophils Absolute Auto 0.2 X10*3/uL (0.0-0.4); Eosinophils Percent Auto 1.5 % (0-4); Hemoglobin 13.8 g/dl (14.0-18.0); Imm Gran Abs Auto 0.09 X10*3/uL (0.00-0.03); Imm Gran Pct Auto 0.9 % (0.0-0.4); Lymphocytes Percent Auto 19.7 % (20-40); MANUAL DIFF FLAG NO; Mean Corpuscular HGB Conc 34.5 g/dl (31.0-36.0); Mean Corpuscular Hemoglobin 28.8 pg (27.0-33.0); Mean Corpuscular Volume 83.3 fL (80.0-98.0); Mean Platelet Volume 9.8 fL (9.4-12.4); Monocytes Absolute Auto 0.8 X10*3/uL (0.1-1.2); Monocytes Percent Auto 7.6 % (2-11); Neutrophils Absolute Auto 7.2 x10*3/uL (2.0-8.3); Neutrophils Percent Auto 69.9 % (45-73); Platelet Count 244 X10*3/uL (160-400); Red Cell Distribution Width 12.6 % (11.0-16.0); White Blood Count 10.3 X10*3/uL (4.8-10.8)
[2024-01-26 23:54] LABS: Amphetamine Screen Urine Not Detected (Not Detect); Barbiturates, Urine Not Detected (Not Detect); Benzodiazepines Screen Urine Not Detected (Not Detect); Buprenorphine Scr Not Detected (Not Detect); Cannabinoid Screen Urine Not Detected (Not Detect); Cocaine Screen Urine Not Detected (Not Detect); Fentanyl, urine Not Detected (Not Detect); Methadone Screen, Urine Not Detected (Not Detect); Opiate Screen Urine Not Detected (Not Detect); Oxycodone Screen Urine Not Detected (Not Detect); Phencyclidine Screen Urine Not Detected (Not Detect)
[2024-01-26 23:59] LABS: Alanine Aminotransferase 72 U/L (0-40); Albumin Level 4.2 g/dL (3.5-5.0); Alkaline Phosphatase 79 U/L (39-117); Anion Gap 13 (12-20); Aspartate Amino Transferase 44 U/L (5-37); Bilirubin Direct 0.1 mg/dL (0.0-0.5); Bilirubin Total 0.3 mg/dL (0.0-1.0); Blood Urea Nitrogen 18 mg/dL (9-16); Calcium 8.8 mg/dL (8.4-10.2); Carbon Dioxide 24 mmol/L (22-29); Chloride 103 mmol/L (96-108); Creatinine Clr Calc Pharmacy 78.4; Estimated Glomerular Filt Rate > 60; Ethanol < 10 mg/dL; Glucose Random 165 mg/dL (60-115); Potassium 4.2 mmol/L (3.3-5.1); Sodium 136 mmol/L (135-145); Total Protein 7.6 g/dL (6.5-8.0)
--- NOTE | 2024-01-27 00:28 | PC.NURSE ---
Patient is sitting upright, eating a sandwich at this time. Plan for CARE team evaluation. 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 He says that I'm here all the time and that's not true! . Pt is known to [facility] ED staff, and number of ED visits have increased significantly recently. Pt is also known to CARE team. Lab results are unremarkable. Pt is redirectable by Pod staff with minimal issue. Pt continues to talk to himself, but in a calmer quieter voice at this time. Care ongoing. James (CARE team) & both aware.
--- NOTE | 2024-01-27 01:02 | PC.NURSE ---
CARE team (James Davis) at bedside speaking with patient at this time.
--- NOTE | 2024-01-27 01:04 | PC.NURSE ---
Per James (CARE team), plan for morning discharge with referrals to therapy and a psychiatry referral. Patient is calm/cooperative at this time. Requested TV to be turned off so that he may sleep. TV turned off, patient now resting to sleep with blanket. No acute distress. Care ongoing by this RN.
[2024-01-27 02:00] VITALS: RESP 16
--- NOTE | 2024-01-27 02:45 | PC.NURSE ---
Patient sleeping. Respirations even/unlabored. Care ongoing by this RN.
[2024-01-27 04:00] VITALS: RESP 16
[2024-01-27 06:55] VITALS: BP 132/86; PULSE 82; RESP 16; TEMP 37.1; O2SAT 97
== END 2024-01-27 06:56 | disposition home or self-care (01) ==
PROVIDERS: Emergency Provider Emergency Medicine; PCP Internal Medicine
DX: F33.1 Major depressive disorder, recurrent, moderate (principal); R45.851 Suicidal ideations; Z51.81 Encounter for therapeutic drug level monitoring; Z79.899 Other long term (current) drug therapy; Z59.00 Homelessness unspecified
CPT/HCPCS: 36415; 80048; 80076; 80307; 83735; 85025; 99284; 99285; S9485

== ENCOUNTER 2024-02-14 01:33 | Emergency (ER) | payer OTHER, SELFPAY ==
--- NOTE | 2024-02-14 | ECG_ITS ---
Test Reason : SOB Blood Pressure : / mmHG Vent. Rate : 094 BPM Atrial Rate : 094 BPM P-R Int : 144 ms QRS Dur : 086 ms QT Int : 356 ms P-R-T Axes : 055 054 -09 degrees QTc Int : 445 ms Normal sinus rhythm Cannot rule out Inferior infarct , age undetermined Abnormal ECG When compared with ECG of 25-JAN-2024 18:59, No significant change was found Referred By: Generic ED Physician Electronically Signed By:FRANKIE DOTY MD
--- NOTE | ~2024-02-14 | XR_ITS ---
EXAMINATION: XR CHEST CLINICAL INFORMATION: shortness of breath COMPARISON: Chest radiograph 01/25/2024. TECHNIQUE: Frontal view of the chest was obtained. FINDINGS: Normal appearance of the cardiomediastinal structures. No effusions or pneumothoraces. Normal pattern of pulmonary vasculature. No focal pulmonary consolidation. No skeletal abnormalities identified. XR/XR chest 1V IMPRESSION: Normal chest. Lungs clear. Electronically signed by: Cornell Quintana MD 02/14/2024 03:09 AM YASEMIN ARNDT
[2024-02-14 01:47] VITALS: BP 159/88; PULSE 92; RESP 20; TEMP 35.9; O2SAT 100; BMI 26.4
[2024-02-14 02:00] VITALS: BP 171/84; PULSE 102; RESP 16; O2SAT 98
[2024-02-14 03:21] LABS: Hematocrit 42.5 % (42.0-52.0); Hemoglobin 14.6 g/dl (14.0-18.0); Mean Corpuscular HGB Conc 34.4 g/dl (31.0-36.0); Mean Corpuscular Hemoglobin 28.6 pg (27.0-33.0); Mean Corpuscular Volume 83.3 fL (80.0-98.0); Platelet Count 323 X10*3/uL (160-400); Red Cell Distribution Width 12.2 % (11.0-16.0); White Blood Count 8.9 X10*3/uL (4.8-10.8)
[2024-02-14 03:32] LABS: Anion Gap 15 (12-20); Blood Urea Nitrogen 15 mg/dL (9-16); Carbon Dioxide 28 mmol/L (22-29); Chloride 99 mmol/L (96-108); Creatinine Clr Calc Pharmacy 68.4; Estimated Glomerular Filt Rate > 60; Glucose Random 127 mg/dL (60-115); Potassium 4.4 mmol/L (3.3-5.1); Sodium 138 mmol/L (135-145)
[2024-02-14 03:40] LABS: B Type Natriuretic Peptide 13 pg/mL (<100)
[2024-02-14 03:41] LABS: Troponin-I High Sensitivity < 2.7 ng/L (<3.5-35.0)
[2024-02-14 03:57] LABS: Influenza A PCR NEGATIVE (Negative); Influenza B PCR NEGATIVE (Negative); Resp Syncy Virus RNA Qual PCR NEGATIVE (Negative); SARS COV2 PCR INHOUSE NEGATIVE (Negative)
--- NOTE | 2024-02-14 04:18 | ED_ITS ---
HPI - General Adult General Chief complaint: Dyspnea Stated complaint: diff breathing Time Seen by Provider: 02/14/24 04:13 Source: patient Mode of arrival: ambulatory Limitations: no limitations History of Present Illness ED Provider: Dr. Taylor Church HPI narrative: Patient comes to the emergency room complaining of when they of chest pain. Patient states that this time he does not feel chest pain anymore or shortness of breath. When patient arrived he complaining of shortness of breath now resolved. Patient admits to using cocaine. Related Data Home Medications ?Medication ?Instructions ?Recorded ?Confirmed lorazepam 1 mg tablet 1 mg PO TID 06/25/23 12/26/23 omeprazole 20 mg capsule,delayed 20 mg PO BEDTIME 11/29/23 12/26/23 release doxycycline hyclate 100 mg tablet 100 mg PO BID 12/26/23 12/26/23 gabapentin 400 mg capsule 300 mg PO BID 12/26/23 12/26/23 Previous Rx's ?Medication ?Instructions ?Recorded albuterol sulfate 90 mcg/actuation 2 puff inhalation QID PRN wheezing 09/21/23 aerosol inhaler (Ventolin HFA) 300 days #1 inhaler aspirin 81 mg tablet,delayed 81 mg PO DAILY 30 days #30 tabs 09/21/23 release fluticasone propionate 115 2 puff inhalation BID 30 days #1 09/21/23 mcg-salmeterol 21 mcg/actuation inhaler HFA inhaler (Advair HFA) insulin glargine 100 unit/mL 15 unit (0.15 mL) subcut BEDTIME 09/21/23 subcutaneous solution 30 days #15 mL metformin 1,000 mg tablet 1,000 mg PO BID 30 days #60 tabs 09/21/23 nicotine (polacrilex) 2 mg gum 4 mg buccal Q2H PRN Nicotine 09/21/23 Cravings 30 days #120 ea paroxetine HCl 30 mg tablet 30 mg PO BID 30 days #60 tabs 09/21/23 rosuvastatin 10 mg tablet 10 mg PO DAILY 30 days #30 tabs 09/21/23 sitagliptin phosphate 100 mg 100 mg PO DAILY 30 days #30 tabs 09/21/23 tablet (Januvia) quetiapine 300 mg tablet 300 mg PO BEDTIME 30 days #30 tabs 12/03/23 risperidone 1 mg tablet 1 mg PO BID@0800,1700 30 days #60 12/03/23 tabs ibuprofen 600 mg tablet 600 mg PO Q8H PRN fever or pain 12/09/23 #20 tabs mupirocin 2 % topical ointment 1 appl topical BID #15 grams 12/19/23 cyclobenzaprine 7.5 mg tablet 7.5 mg PO TID PRN muscle spasm #10 12/28/23 tabs ibuprofen 600 mg tablet 600 mg PO Q6H PRN pain #20 tabs 12/28/23 albuterol sulfate 90 mcg/actuation 2 puff inhalation Q6H PRN 01/04/24 aerosol inhaler shortness of breath or wheezing #8.5 grams metformin 1,000 mg tablet 1,000 mg PO BID #60 tabs 01/04/24 Allergies Allergy/AdvReac Type Severity Reaction Status Date / Time glipizide [GLIPIZIDE] Allergy Intermediate ITCHY Verified 02/14/24 01:47 oxycodone [From TYLOX] AdvReac Intermediate CHEST PAINS Verified 02/14/24 01:47 Review of Systems 2 Review of Systems: Constitutional : No Weight loss, No Fever, No Chills, No Night Sweats, No Fatigue, No Malaise ENT/Mouth : No Hearing loss, No Ear Pain, No Nasal Congestion, No Sinus Pain, No Hoarseness, No sore throat, No Rhinorrhea, No Swallowing Difficulty Eyes: No Eye Pain, No Swelling, No Redness, No Foreign Body, No Discharge, No Vision Changes Cardiovascular : Complaining of chest pain and shortness of breath which self- resolved, denies orthopnea. Respiratory : No Cough, No Sputum, No Wheezing, No Smoke Exposure, No Dyspnea Gastrointestinal : No Nausea, No Vomiting, No Diarrhea, No Constipation, No abdominal Pain, No Hematochezia, No Melena Genitourinary : no irregular bleeding, No Dysuria, No Urinary Frequency, No Hematuria, No Urinary Incontinence, No Urgency, No Flank Pain, No Urinary Flow Changes, No Hesitancy Musculoskeletal : No joint pain, No Myalgias, No Joint Swelling Skin : No Skin Lesions, No rash Neuro : No Weakness, No Numbness, No Paresthesias, No Loss of Consciousness, No Dizziness, No Headache Psych : No Anxiety/Panic, No Depression, No SI/HI/AH/VH, No Social Issues, Heme/Lymph: No Bruising, No Bleeding,No Lymphadenopathy Endocrine : No Polyuria, No Polydipsia, No Temperature Intolerance [facility] Past Medical History Medical History MDD (major depressive disorder), recurrent episode, moderate Cocaine use disorder Substance-induced psychotic disorder Anxiety Diabetes Social History Social History Household Members: None Housing: Homeless Do you presently have visiting nurse or other home services: No Unable to assess alcohol history related to: Refusing to respond Alcohol intake: current Alcohol intake frequency: does not drink Alcohol type: beer Patient Tobacco Use Status: Current everyday Tobacco user Tobacco use type: Cigarette Cigarette Packs Per Day: 1 Cigarettes Per Day: 20.0 Years Smoked: 40 e-Cigarette/Vaping Use: Former Use Second Hand Smoke Exposure: Yes Substance Use Type: Crack/Cocaine Advance Directives: Yes Advance Directives on File: Yes Advance Directives Date on File: 10/24/21 service: No Sexual orientation: Straight/Heterosexual Physical Exam ED Vital Signs: Vital Signs - 24 hr 02/14/24 01:47 02/14/24 02:00 Temperature 96.7 F L Pulse Rate 92 102 H Respiratory Rate 20 16 Blood Pressure 159/88 H 171/84 H Pulse Oximetry 100 98 Oxygen Delivery Method Room Air Room Air BMI result Body Mass Index 26.4 Const Other: Appearance: Alert. Oriented X3. No acute distress. Well-appearing Eyes: Pupils equal, round and reactive to light. ENT: Pharynx normal. Neck: Normal inspection. Neck supple. No lymph nodes noted. No crepitus CVS: Normal heart rate and rhythm. Pulses normal. Normal S1 and S2 Respiratory: No respiratory distress. Breath sounds normal. No Wheezing. No rales Abdomen: Soft and nontender. No rigidity. No distention. Skin: Skin warm and dry. Normal skin color. Normal skin turgor. Extremities: No lower extremity edema. No Lacerations. No Rash Neuro: Oriented X 3. No motor deficit. No sensory deficit. Moving all extremities. No slurred speech. CN 2 through 12 grossly intact Psych: calm, cooperative, normal affect Medical Decision Making Medical Decision Making MDM Narrative: My interpretation of EKG, normal sinus rhythm, heart rate 94, no ST segment depression or elevation, nonspecific T-wave inversion in lead 3, QTC 445 -my interpretation of labs: Normal hematology and chemistry, at baseline, troponin and BNP negative. Serology report negative for COVID and influenza. -chest x-ray negative -patient asymptomatic at this time. -I discussed with the patient that using cocaine is likely triggered [employer] spasms stating to chest pain. At this time, patient asymptomatic. Differential Diagnosis Differential Diagnoses: The differential diagnosis associated with the presentation includes (ACS, coronary vasospasm, atypical chest pain, pneumonia) Admission/Observation Consideration of admission/observation: Escalation of care including admission/observation considered (Given patient's recurrent symptoms, admission/observation was considered) Lab Data MDM Lab Attestation statement: I reviewed the patient's lab results. 02/14/24 03:15 02/14/24 03:16 Labs: Lab Results 02/14/24 02/14/24 02/14/24 Range/Units 03:12 03:15 03:16 WBC 8.9 (4.8-10.8) X10*3/uL RBC 5.10 (4.60-5.80) X10*6/uL Hgb 14.6 (14.0-18.0) g/dl Hct 42.5 (42.0-52.0) % MCV 83.3 (80.0-98.0) fL MCH 28.6 (27.0-33.0) pg MCHC 34.4 (31.0-36.0) g/dl RDW 12.2 (11.0-16.0) % Plt Count 323 D (160-400) X10*3/uL MPV 9.0 L (9.4-12.4) fL Absolute Nucleated RBC 0.000 (0.0-0.012) X10*3/uL Nucleated RBC % (auto) 0.0 (0.0-0.2) /100WBC Sodium 138 (135-145) mmol/L Potassium 4.4 (3.3-5.1) mmol/L Chloride 99 (96-108) mmol/L Carbon Dioxide 28 (22-29) mmol/L Anion Gap 15 (12-20) BUN 15 (9-16) mg/dL Creatinine 1.10 (0.5-1.4) mg/dL Estim Creat Clear Calc 68.4 Estimated GFR > 60 Random Glucose 127 H (60-115) mg/dL Calcium 10.0 D (8.4-10.2) mg/dL Troponin I High Sens < 2.7 (<3.5-35.0) ng/L B-Natriuretic Peptide 13 (<100) pg/mL Influenza Type A (PCR) NEGATIVE (Negative) Influenza Type B (PCR) NEGATIVE (Negative) RSV RNA Qual (PCR) NEGATIVE (Negative) SARS-CoV-2 RNA (RT-PCR) NEGATIVE (Negative) Independent Interpretation I performed an independent interpretation of an: EKG and Plain X-Ray Radiology Impression Discussion of test interpretation with radiology: I have reviewed the radiologist's reading. Radiologist Impression: Normal appearance of the cardiomediastinal structures. No effusions or pneumothoraces. Normal pattern of pulmonary vasculature. No focal pulmonary consolidation. No skeletal abnormalities identified. XR/XR chest 1V IMPRESSION: Normal chest. Lungs clear. Critical Care Time Critical Care Time Critical Care Time: Yes Total Critical Care Time: 35 Attestation: I have personally provided critical care time. Time includes review of lab data, radiology results, discussion with consultants, and monitoring for potential decompensation. Intervention performed as documented. Discharge Plan Discharge Clinical Impression: Atypical chest pain Patient Disposition: Home, Self-Care Instructions: Chest Pain (ED), Cocaine Abuse (ED) Additional Instructions: Please follow-up with your primary care physician tomorrow. If you have any worsening or new symptoms, please return to the emergency room or call 911 Prescriptions: No Action nicotine (polacrilex) 2 mg Gum 4 mg buccal Q2H PRN (Reason: Nicotine Cravings) 30 Days Qty: 120 1RF aspirin 81 mg tablet,delayed release (DR/EC) 81 mg PO DAILY 30 Days Qty: 30 0RF paroxetine HCl 30 mg tablet 30 mg PO BID 30 Days Qty: 60 0RF metformin 1,000 mg tablet 1,000 mg PO BID 30 Days Qty: 60 0RF albuterol sulfate [Ventolin HFA] 90 mcg/actuation HFA aerosol inhaler 2 puff INHALATION QID PRN (Reason: wheezing) 300 Days Qty: 1 0RF rosuvastatin 10 mg tablet 10 mg PO DAILY 30 Days Qty: 30 0RF fluticasone propion-salmeterol [Advair HFA] 115-21 mcg/actuation HFA aerosol inhaler 2 puff INHALATION BID 30 Days Qty: 1 0RF Januvia 100 mg tablet 100 mg PO DAILY 30 Days Qty: 30 0RF insulin glargine 100 unit/mL Solution 15 unit subcut BEDTIME 30 Days Qty: 15 0RF omeprazole 20 mg capsule,delayed release(DR/EC) 20 mg PO BEDTIME quetiapine 300 mg Tablet 300 mg PO BEDTIME 30 Days Qty: 30 0RF risperidone 1 mg Tablet 1 mg PO BID@0800,1700 30 Days Qty: 60 0RF ibuprofen 600 mg tablet 600 mg PO Q8H PRN (Reason: fever or pain) Qty: 20 0RF gabapentin 400 mg capsule 300 mg PO BID doxycycline hyclate 100 mg tablet 100 mg PO BID lorazepam 1 mg tablet 1 mg PO TID mupirocin 2 % ointment 1 appl topical BID Qty: 15 0RF ibuprofen 600 mg tablet 600 mg PO Q6H PRN (Reason: pain) Qty: 20 0RF cyclobenzaprine 7.5 mg tablet 7.5 mg PO TID PRN (Reason: muscle spasm) Qty: 10 0RF albuterol sulfate 90 mcg/actuation HFA aerosol inhaler 2 puff inhalation Q6H PRN (Reason: shortness of breath or wheezing) Qty: 8.5 0RF metformin 1,000 mg tablet 1,000 mg PO BID Qty: 60 0RF Print Language: Swedish
[2024-02-14 04:28] VITALS: BP 124/73; PULSE 97; RESP 16; TEMP 36.8; O2SAT 98
[2024-02-14 06:13] VITALS: BP 124/73; PULSE 97; RESP 16; TEMP 36.8; O2SAT 98
--- NOTE | 2024-02-14 09:27 | PC.NURSE ---
Pt rechecked into ED after being askwed multiple times to leave the property by [facility], pt reported to them he had his daughter coming to pick him up, however he just kept going to different parts of the hospital/ Pt was seen and triaged, went up to talk with patient pt then refused to talk with provider and walked out of ED. [facility] aware of pt dc/ refusing to talk with staff. Plan is if patient continues to refuse to leave property they will call PD
== END 2024-02-14 04:35 | disposition home or self-care (01) ==
PROVIDERS: Emergency Provider Emergency Medicine
DX: R06.02 Shortness of breath (principal); R07.89 Other chest pain; F14.90 Cocaine use, unspecified, uncomplicated; F17.210 Nicotine dependence, cigarettes, uncomplicated; Z03.818 Encounter for observation for suspected exposure to other biological agents ruled out; Z79.899 Other long term (current) drug therapy
CPT/HCPCS: 0241U; 36415; 71045; 80048; 83880; 84484; 85027; 93005; 99281; 99284

== ENCOUNTER → 2024-02-14 03:05 | Outpatient (BNV) | payer OTHER, SELFPAY | PROVIDERS: Emergency Provider Emergency Medicine; Visit Provider Internal Medicine Cardiovascular Disease | DX: I44.4 Left anterior fascicular block (principal); R94.31 Abnormal electrocardiogram [ECG] [EKG] | CPT/HCPCS: 93010 ==

== ENCOUNTER 2024-02-14 08:45 | Emergency (ER) | payer OTHER, SELFPAY ==
[2024-02-14 08:52] VITALS: BP 144/69; PULSE 91; RESP 18; TEMP 36.6; O2SAT 99; BMI 25.7
--- NOTE | 2024-02-14 09:23 | ED.GENADULT ---
HPI - General Adult General Chief complaint: General Medical Stated complaint: Too cold outside Source: patient and old records reviewed Mode of arrival: ambulatory Limitations: no limitations History of Present Illness ED Provider: MICHAEL ONTIVEROS narrative: patient was seen earlier and slept in waiting room all night. he checked back in due to poor housing situation. went to talk to him and he walked out. unable to perform full history or exam Related Data Home Medications ?Medication ?Instructions ?Recorded ?Confirmed lorazepam 1 mg tablet 1 mg PO TID 06/25/23 12/26/23 omeprazole 20 mg capsule,delayed 20 mg PO BEDTIME 11/29/23 12/26/23 release doxycycline hyclate 100 mg tablet 100 mg PO BID 12/26/23 12/26/23 gabapentin 400 mg capsule 300 mg PO BID 12/26/23 12/26/23 Previous Rx's ?Medication ?Instructions ?Recorded albuterol sulfate 90 mcg/actuation 2 puff inhalation QID PRN wheezing 09/21/23 aerosol inhaler (Ventolin HFA) 300 days #1 inhaler aspirin 81 mg tablet,delayed 81 mg PO DAILY 30 days #30 tabs 09/21/23 release fluticasone propionate 115 2 puff inhalation BID 30 days #1 09/21/23 mcg-salmeterol 21 mcg/actuation inhaler HFA inhaler (Advair HFA) insulin glargine 100 unit/mL 15 unit (0.15 mL) subcut BEDTIME 09/21/23 subcutaneous solution 30 days #15 mL metformin 1,000 mg tablet 1,000 mg PO BID 30 days #60 tabs 09/21/23 nicotine (polacrilex) 2 mg gum 4 mg buccal Q2H PRN Nicotine 09/21/23 Cravings 30 days #120 ea paroxetine HCl 30 mg tablet 30 mg PO BID 30 days #60 tabs 09/21/23 rosuvastatin 10 mg tablet 10 mg PO DAILY 30 days #30 tabs 09/21/23 sitagliptin phosphate 100 mg 100 mg PO DAILY 30 days #30 tabs 09/21/23 tablet (Januvia) quetiapine 300 mg tablet 300 mg PO BEDTIME 30 days #30 tabs 12/03/23 risperidone 1 mg tablet 1 mg PO BID@0800,1700 30 days #60 12/03/23 tabs ibuprofen 600 mg tablet 600 mg PO Q8H PRN fever or pain 12/09/23 #20 tabs mupirocin 2 % topical ointment 1 appl topical BID #15 grams 12/19/23 cyclobenzaprine 7.5 mg tablet 7.5 mg PO TID PRN muscle spasm #10 12/28/23 tabs ibuprofen 600 mg tablet 600 mg PO Q6H PRN pain #20 tabs 12/28/23 albuterol sulfate 90 mcg/actuation 2 puff inhalation Q6H PRN 01/04/24 aerosol inhaler shortness of breath or wheezing #8.5 grams metformin 1,000 mg tablet 1,000 mg PO BID #60 tabs 01/04/24 Allergies Allergy/AdvReac Type Severity Reaction Status Date / Time glipizide [GLIPIZIDE] Allergy Intermediate ITCHY Verified 02/14/24 08:55 oxycodone [From TYLOX] AdvReac Intermediate CHEST PAINS Verified 02/14/24 08:55 PMFSH Past Medical History Medical History MDD (major depressive disorder), recurrent episode, moderate Cocaine use disorder Substance-induced psychotic disorder Anxiety Diabetes Social History Social History Household Members: None Housing: Homeless Do you presently have visiting nurse or other home services: No Unable to assess alcohol history related to: Refusing to respond Alcohol intake: never Patient Tobacco Use Status: Current everyday Tobacco user Tobacco use type: Cigarette Cigarette Packs Per Day: 1 Cigarettes Per Day: 20.0 Years Smoked: 40 e-Cigarette/Vaping Use: Former Use Second Hand Smoke Exposure: Yes Substance Use Type: Crack/Cocaine Advance Directives: Yes Advance Directives on File: Yes Advance Directives Date on File: 10/24/21 Do you have a plan to hurt others: No Plan service: No Sexual orientation: Straight/Heterosexual Physical Exam ED Vital Signs: Vital Signs - 24 hr 02/14/24 08:52 Temperature 97.8 F Pulse Rate 91 Respiratory Rate 18 Blood Pressure 144/69 H Pulse Oximetry 99 Oxygen Delivery Method Room Air BMI result Body Mass Index 25.7 Discharge Plan Discharge Clinical Impression: Homelessness Patient Disposition: Left W/O Completing Treatment Prescriptions: No Action nicotine (polacrilex) 2 mg Gum 4 mg buccal Q2H PRN (Reason: Nicotine Cravings) 30 Days Qty: 120 1RF aspirin 81 mg tablet,delayed release (DR/EC) 81 mg PO DAILY 30 Days Qty: 30 0RF paroxetine HCl 30 mg tablet 30 mg PO BID 30 Days Qty: 60 0RF metformin 1,000 mg tablet 1,000 mg PO BID 30 Days Qty: 60 0RF albuterol sulfate [Ventolin HFA] 90 mcg/actuation HFA aerosol inhaler 2 puff INHALATION QID PRN (Reason: wheezing) 300 Days Qty: 1 0RF rosuvastatin 10 mg tablet 10 mg PO DAILY 30 Days Qty: 30 0RF fluticasone propion-salmeterol [Advair HFA] 115-21 mcg/actuation HFA aerosol inhaler 2 puff INHALATION BID 30 Days Qty: 1 0RF Januvia 100 mg tablet 100 mg PO DAILY 30 Days Qty: 30 0RF insulin glargine 100 unit/mL Solution 15 unit subcut BEDTIME 30 Days Qty: 15 0RF omeprazole 20 mg capsule,delayed release(DR/EC) 20 mg PO BEDTIME quetiapine 300 mg Tablet 300 mg PO BEDTIME 30 Days Qty: 30 0RF risperidone 1 mg Tablet 1 mg PO BID@0800,1700 30 Days Qty: 60 0RF ibuprofen 600 mg tablet 600 mg PO Q8H PRN (Reason: fever or pain) Qty: 20 0RF gabapentin 400 mg capsule 300 mg PO BID doxycycline hyclate 100 mg tablet 100 mg PO BID lorazepam 1 mg tablet 1 mg PO TID mupirocin 2 % ointment 1 appl topical BID Qty: 15 0RF ibuprofen 600 mg tablet 600 mg PO Q6H PRN (Reason: pain) Qty: 20 0RF cyclobenzaprine 7.5 mg tablet 7.5 mg PO TID PRN (Reason: muscle spasm) Qty: 10 0RF albuterol sulfate 90 mcg/actuation HFA aerosol inhaler 2 puff inhalation Q6H PRN (Reason: shortness of breath or wheezing) Qty: 8.5 0RF metformin 1,000 mg tablet 1,000 mg PO BID Qty: 60 0RF Interventions: LWBS Worksheet Last Done: 02/14/24 09:17 Discharge Date/Time: 02/14/24 09:18
== END 2024-02-14 09:18 | disposition left against medical advice (07) ==
PROVIDERS: Emergency Provider Emergency Medicine; PCP Internal Medicine
DX: Z59.00 Homelessness unspecified (principal)
CPT/HCPCS: 99281

== ENCOUNTER 2024-02-18 19:18 | Emergency (ER) | payer OTHER, SELFPAY ==
[2024-02-18 19:25] VITALS: BP 131/81; PULSE 109; RESP 18; TEMP 36.1; O2SAT 99; BMI 25.1
--- NOTE | 2024-02-18 19:26 | ED_ITS ---
HPI - Psych General Chief Complaint: Psychiatric Symptoms Stated Complaint: Suicidal Thoughts Time Seen by Provider: 02/18/24 20:35 Source: patient Mode of arrival: ambulatory Limitations: no limitations History of Present Illness ED Provider: Jolly Sneed NP HPI Narrative: Patient is a 59-year-old male with past medical history of substance induced mood disorder, anxiety, diabetes presents emergency department for evaluation of suicidal ideations with a plan to cut himself. He admits to substance use, intranasal cocaine a few hours ago. Having auditory hallucinations which by his report are chronic, denies visual hallucinations. Denies any homicidal ideations. Does not have his medications for the past week including diabetes medications and psych medications. He has been unable to make contact with his primary care and pharmacy has been unable to contact them to establish a refill. Related Data Previous Rx's ?Medication ?Instructions ?Recorded rosuvastatin 10 mg tablet 10 mg PO DAILY 30 days #30 tabs 09/21/23 sitagliptin phosphate 100 mg 100 mg PO DAILY 30 days #30 tabs 09/21/23 tablet (Januvia) quetiapine 300 mg tablet 300 mg PO BEDTIME 30 days #30 tabs 12/03/23 rosuvastatin 10 mg tablet 10 mg PO DAILY #90 tabs 02/19/24 Allergies Allergy/AdvReac Type Severity Reaction Status Date / Time glipizide [GLIPIZIDE] Allergy Intermediate ITCHY Verified 02/18/24 19:30 oxycodone [From TYLOX] AdvReac Intermediate CHEST PAINS Verified 02/18/24 19:30 Review of Systems 2 Review of Systems: Yes all other systems are reviewed and are negative PMFSH Past Medical History Attestation statement: The following information was validated with the patient. Source: old records reviewed Medical History MDD (major depressive disorder), recurrent episode, moderate Cocaine use disorder Substance-induced psychotic disorder Anxiety Diabetes Social History Social History Household Members: None Housing: Homeless Do you presently have visiting nurse or other home services: No Unable to assess alcohol history related to: Refusing to respond Alcohol intake: never Patient Tobacco Use Status: Current everyday Tobacco user Tobacco use type: Cigarette Cigarette Packs Per Day: 1 Cigarettes Per Day: 20.0 Years Smoked: 40 e-Cigarette/Vaping Use: Former Use Second Hand Smoke Exposure: Yes Substance Use Type: Crack/Cocaine Advance Directives: Yes Advance Directives on File: Yes Advance Directives Date on File: 10/24/21 service: No Sexual orientation: Straight/Heterosexual Physical Exam 2 Vital Signs: Vital Signs: Last Vital Signs Temp 97.9 F 02/19/24 01:31 Pulse 96 02/19/24 01:31 Resp 16 02/19/24 01:31 BP 123/67 02/19/24 01:31 Pulse Ox 96 02/19/24 01:31 O2 Del Method Room Air 02/19/24 01:31 BMI result Body Mass Index 25.1 Appearance: Alert.?Oriented to person, place and time. No acute distress.?Normal affect. Eyes: Pupils equal, round and reactive to light.? ENT: Pharynx normal.?? Neck: Normal inspection.? Neck supple.?? CVS: Heart sounds normal. Normal heart rate and rhythm.? Pulses normal.?? Respiratory: No respiratory distress.? Lung sounds clear to auscultation bilaterally?? Abdomen: Soft and non-tender. Normoactive bowel sounds. Skin: Skin warm and dry.? Normal skin color.? Extremities: No lower extremity edema.? Neuro: Moves all extremities spontaneously. Sensation intact bilaterally. CN II- XII intact. No focal neuro deficits. Ambulates with normal steady gait. Course Course Course Narrative: This is a Rapid Medical Examination (RME) performed by Janell Cole PA-C in triage. Full HPI, ROS, assessment and treatment plan per primary provider in the Main ED. 59 yo male with history of substance induced mood disorder, anxiety, DM, presents to the ER for evaluation of SI with plan to cut himself. seen here recently x2 on 02/13. reports out of all of his meds for 1 week now, including his diabetes meds and psych meds. his PCP isnt returning the pharmacy's call to refill. last used cocaine a few hours ago.+AH which are chronic. no HI. Plan: labs, care team. Medications Administered Generic Name Dose Route Start Last Admin Trade Name Freq PRN Reason Stop Dose Admin Atorvastatin Calcium 40 mg 02/19/24 09:00 02/19/24 09:47 Atorvastatin Calcium 40 Mg Tablet PO 40 mg DAILY NILE Administration Quetiapine Fumarate 300 mg 02/19/24 21:00 02/19/24 01:27 Quetiapine Fumarate 300 Mg Tablet PO 300 mg BEDTIME NILE Administration Sitagliptin Phosphate 100 mg 02/19/24 09:00 02/19/24 09:47 Sitagliptin Phosphate 100 Mg Tablet PO 100 mg DAILY NILE Administration Medical Decision Making Medical Decision Making [facility] Narrative: Patient is a 59-year-old male with past medical history of substance induced mood disorder, anxiety, diabetes presenting to emergency department for evaluation of suicidal ideations with a plan as per HPI. He was seen in the emergency department 02/14/2024 for atypical chest pain, was discharged to follow up with PCP, advised against cocaine usage. He had remained in the waiting room all night, he checked back in to the ED in the morning due to for housing situation, but ultimately walked out of the department without completing treatment. He denies any persistent chest pain. Reports that he is out of his medications, though he is unable to tell me which medications he is taking and what the current dosages are. On review of his pharmacy records appears as though his most recent prescription refills for psych/diabetes include quetiapine 300 mg daily 2 days ago, paroxetine 30 mg twice daily lorazepam 1 mg tablet 3 times daily as needed, Januvia 100 mg tablet daily, Lantus, metformin 1000 mg twice daily in addition he is also prescribed rosuvastatin 10 mg daily Differential Diagnosis Differential Diagnoses: The differential diagnosis associated with the presentation includes (See narrative above and below for further detail) Admission/Observation Consideration of admission/observation: Escalation of care including admission/observation considered Patient is being observed in the Emergency Department for depression and suicidal ideations. Observation time was started at 20:00 on .?The patient is currently stable and non-toxic appearing. Observation is being initiated in the Emergency Department to allow time to help differentiate if the patient's depression and anxiety is due to Substance Induced Mood Disorder and Anxiety versus Major Depressive Disorder, Bipolar Alondra, Bipolar Depression, and Schizophrenia. The patient will receive frequent psychiatric assessments from the provider as well as from nursing staff. The patient will also be monitored for the need of PRN agitation medications such as Haldol, Ativan, and Benadryl. 02/19/2024 at 11:09 hours, Dr. [facility] physician observation on 02/19/2024 at 11:09 hours 59-year-old male, well-known to the emergency department, presented to the emergency department for suicidal ideation with plan to cut himself. Patient was re-evaluated by the care team and was felt that the patient does not require hospitalization at this time. Patient was medication are available at the pharmacy except for his rosuvastatin which I did order. Observation care revealed the the patient [does not meet medical necessity for hospitalization. Exam at time of disposition revealed the patient was awake, alert , oriented to person place, was not in any distress. ? Final disposition discussed with the patient by the care team and the patient does agree with the disposition. Patient started observation time on 02/18/2024 at 23:27 hours Patient completed observation care on 02/19/2024 at 11:09 hours Total time spent in observation care was 23 hours and 42minutes. Consult Healthcare Provider Management of the patient was discussed with: Behavioral Health Provider (CARE team) Care team plans to re-evaluate patient in the morning for disposition Lab Data MDM Lab Attestation statement: I reviewed the patient's lab results. CBC is without leukocytosis anemia or thrombocytopenia. No electrolyte derangement. No KRYSTAL. LFTs are unremarkable. Urinalysis without evidence of infection. Urine toxicology positive for cocaine. Ethyl alcohol level nondetectable. 02/18/24 19:42 02/18/24 19:42 Labs: Lab Results 02/18/24 02/18/24 Range/Units 19:42 19:49 WBC 9.2 (4.8-10.8) X10*3/uL RBC 5.11 (4.60-5.80) X10*6/uL Hgb 14.9 (14.0-18.0) g/dl Hct 42.3 (42.0-52.0) % MCV 82.8 (80.0-98.0) fL MCH 29.2 (27.0-33.0) pg MCHC 35.2 (31.0-36.0) g/dl RDW 12.3 (11.0-16.0) % Plt Count 330 (160-400) X10*3/uL MPV 9.1 L (9.4-12.4) fL Immature Gran % (Auto) 0.8 H (0.0-0.4) % Neut % (Auto) 68.2 (45-73) % Lymph % (Auto) 21.4 (20-40) % [place] % (Auto) 7.8 (2-11) % Eos % (Auto) 1.4 (0-4) % Baso % (Auto) 0.4 (0-2) % Lymph # (Auto) 2.0 (1.2-4.9) X10*3/uL [place] # (Auto) 0.7 (0.1-1.2) X10*3/uL Eos # (Auto) 0.1 (0.0-0.4) X10*3/uL Baso # (Auto) 0.0 (0.0-0.2) X10*3/uL Abs Immat Gran (auto) 0.07 H (0.00-0.03) X10*3/uL Absolute Neuts (auto) 6.3 (2.0-8.3) x10*3/uL Absolute Nucleated RBC 0.000 (0.0-0.012) X10*3/uL Nucleated RBC % (auto) 0.0 (0.0-0.2) /100WBC Sodium 139 (135-145) mmol/L Potassium 3.9 (3.3-5.1) mmol/L Chloride 106 (96-108) mmol/L Carbon Dioxide 22 (22-29) mmol/L Anion Gap 15 (12-20) BUN 10 (9-16) mg/dL Creatinine 0.94 (0.5-1.4) mg/dL Estim Creat Clear Calc 80.0 Estimated GFR > 60 Random Glucose 121 H (60-115) mg/dL Calcium 9.4 (8.4-10.2) mg/dL Magnesium 1.6 (1.6-2.6) mg/dL Total Bilirubin 0.4 (0.0-1.0) mg/dL Direct Bilirubin 0.1 (0.0-0.5) mg/dL AST 29 (5-37) U/L ALT 35 (0-40) U/L Alkaline Phosphatase 90 (39-117) U/L Total Protein 8.7 H (6.5-8.0) g/dL Albumin 4.3 (3.5-5.0) g/dL Urine Color Yellow Urine Appearance Clear Urine pH 5.5 (5.0-9.0) Ur Specific [place] 1.015 (1.005-1.025) Urine Protein Trace (Neg-Trace) mg/dL Urine Glucose (UA) Negative (Negative) mg/dL Urine Ketones Negative (Negative) mg/dL Urine Blood Negative (Negative) Urine Nitrite Negative (Negative) Ur Leukocyte Esterase Negative (Negative) Urine Opiates Screen Not Detected (Not Detect) Ur Buprenorphine Scrn Not Detected (Not Detect) ng/mL Ur Oxycodone Screen Not Detected (Not Detect) ng/mL Urine Methadone Screen Not Detected (Not Detect) ng/mL Urine Fentanyl Screen Not Detected (Not Detect) Ur Barbiturates Screen Not Detected (Not Detect) Ur Phencyclidine Scrn Not Detected (Not Detect) Ur Amphetamines Screen Not Detected (Not Detect) U Benzodiazepines Scrn Not Detected (Not Detect) Urine Cocaine Screen POSITIVE H (Not Detect) U Marijuana (THC) Screen Not Detected (Not Detect) Ethyl Alcohol < 10 mg/dL External Record Review External record reviewed: Outpatient record Chronic Conditions Patient?s care impacted by: Other (See narrative above) Discharge Plan Discharge Clinical Impression: Suicidal ideation, Auditory hallucination Patient Disposition: Home, Self-Care Additional Instructions: Your evaluated by the care team. At this time, you do not need to be hospitalized however if you feel like you are going to harm herself or harm others please return to the emergency department for re-evaluation. Continue to follow the care team plan. Take your medications as prescribed by your providers. Follow-up with your doctor in 2 days. Please return to the emergency department if your symptoms get worse or if you develop any symptoms that are concerning to you. Prescriptions: New rosuvastatin 10 mg tablet 10 mg PO DAILY Qty: 90 0RF No Action rosuvastatin 10 mg tablet 10 mg PO DAILY 30 Days Qty: 30 0RF Januvia 100 mg tablet 100 mg PO DAILY 30 Days Qty: 30 0RF quetiapine 300 mg Tablet 300 mg PO BEDTIME 30 Days Qty: 30 0RF Interventions: [place]-Suicide Risk Severity Scale Last Done: 02/18/24 20:39 Print Language: Indonesian
--- NOTE | 2024-02-18 19:49 | MHC.EDTECH ---
Patient brought into triage area,labs,and urine obtained and sent to lab.
[2024-02-18 19:54] LABS: MANUAL DIFF FLAG NO
[2024-02-18 19:58] LABS: Basophils Percent Auto 0.4 % (0-2); Eosinophils Absolute Auto 0.1 X10*3/uL (0.0-0.4); Eosinophils Percent Auto 1.4 % (0-4); Hematocrit 42.3 % (42.0-52.0); Hemoglobin 14.9 g/dl (14.0-18.0); Imm Gran Abs Auto 0.07 X10*3/uL (0.00-0.03); Imm Gran Pct Auto 0.8 % (0.0-0.4); Lymphocytes Percent Auto 21.4 % (20-40); Mean Corpuscular HGB Conc 35.2 g/dl (31.0-36.0); Mean Corpuscular Hemoglobin 29.2 pg (27.0-33.0); Mean Corpuscular Volume 82.8 fL (80.0-98.0); Mean Platelet Volume 9.1 fL (9.4-12.4); Monocytes Absolute Auto 0.7 X10*3/uL (0.1-1.2); Monocytes Percent Auto 7.8 % (2-11); Neutrophils Absolute Auto 6.3 x10*3/uL (2.0-8.3); Neutrophils Percent Auto 68.2 % (45-73); Platelet Count 330 X10*3/uL (160-400); Red Blood Count 5.11 X10*6/uL (4.60-5.80); Red Cell Distribution Width 12.3 % (11.0-16.0); White Blood Count 9.2 X10*3/uL (4.8-10.8)
[2024-02-18 19:59] LABS: Appearance Urine Clear; Color Urine Yellow; Glucose Urine UA Negative (Negative); Leukocyte Esterase Urine Negative (Negative); Nitrite Urine Negative (Negative); PH 5.5 (5.0-9.0); Specific Gravity - Urine 1.015 (1.005-1.025); Urine Blood Negative (Negative); Urine Ketones Negative (Negative); Urine Protein Trace mg/dL (Neg-Trace)
[2024-02-18 20:06] LABS: Amphetamine Screen Urine Not Detected (Not Detect); Barbiturates, Urine Not Detected (Not Detect); Benzodiazepines Screen Urine Not Detected (Not Detect); Buprenorphine Scr Not Detected (Not Detect); Cannabinoid Screen Urine Not Detected (Not Detect); Cocaine Screen Urine POSITIVE (Not Detect); Fentanyl, urine Not Detected (Not Detect); Methadone Screen, Urine Not Detected (Not Detect); Opiate Screen Urine Not Detected (Not Detect); Oxycodone Screen Urine Not Detected (Not Detect); Phencyclidine Screen Urine Not Detected (Not Detect)
--- NOTE | 2024-02-18 20:14 | PC.NURSE ---
t/w completed patient search and changeover no evidence of injury or contraband with paitent patient reiterates he cannot get his medications from his primary
[2024-02-18 20:17] LABS: Albumin Level 4.3 g/dL (3.5-5.0); Alkaline Phosphatase 90 U/L (39-117); Anion Gap 15 (12-20); Aspartate Amino Transferase 29 U/L (5-37); Bilirubin Direct 0.1 mg/dL (0.0-0.5); Bilirubin Total 0.4 mg/dL (0.0-1.0); Blood Urea Nitrogen 10 mg/dL (9-16); Calcium 9.4 mg/dL (8.4-10.2); Carbon Dioxide 22 mmol/L (22-29); Chloride 106 mmol/L (96-108); Estimated Glomerular Filt Rate > 60; Ethanol < 10 mg/dL; Glucose Random 121 mg/dL (60-115); Magnesium 1.6 mg/dL (1.6-2.6); Potassium 3.9 mmol/L (3.3-5.1); Sodium 139 mmol/L (135-145); Total Protein 8.7 g/dL (6.5-8.0)
[2024-02-18 20:34] LABS: Alanine Aminotransferase 35 U/L (0-40)
[2024-02-19] MEDS: QUEtiapine Fumarate 300 MG TABLET PO ×2 (01:27)
[2024-02-19 01:31] VITALS: BP 123/67; PULSE 96; RESP 16; TEMP 36.6; O2SAT 96
[2024-02-19] MEDS: SITagliptin Phosphate 100 MG TABLET PO (09:47)
[2024-02-19] MEDS: Atorvastatin Calcium 40 MG TABLET PO (09:47)
--- NOTE | 2024-02-19 10:38 | PC.NURSE ---
Called [facility] - pharamcy staitng that patient has serouqel that can be picked up, they will refill januvia, but would need a script for rosuvasatatin. Care team aware
--- NOTE | 2024-02-19 11:03 | PC.NURSE ---
oob ambulating to bathroom, denies SI, ate well for breakfast.
[2024-02-19 11:16] VITALS: BP 102/65; PULSE 89; RESP 18; TEMP 36.4; O2SAT 96
== END 2024-02-19 11:30 | disposition home or self-care (01) ==
PROVIDERS: Physician Assistant; Emergency Provider Emergency Medicine Emergency Medical Services; PCP Internal Medicine
DX: R44.0 Auditory hallucinations (principal); R45.851 Suicidal ideations; F41.9 Anxiety disorder, unspecified; F33.1 Major depressive disorder, recurrent, moderate; E11.9 Type 2 diabetes mellitus without complications; F17.210 Nicotine dependence, cigarettes, uncomplicated; F19.951 Other psychoactive substance use, unspecified with psychoactive substance-induced psychotic disorder with hallucinations; Z59.00 Homelessness unspecified; Z79.4 Long term (current) use of insulin; Z79.899 Other long term (current) drug therapy; Z79.84 Long term (current) use of oral hypoglycemic drugs
CPT/HCPCS: 36415; 80048; 80076; 80307; 81003; 83735; 85025; 99284; S9485

== ENCOUNTER 2024-03-02 18:55 | Emergency (ER) | payer OTHER, SELFPAY ==
--- NOTE | 2024-03-02 18:58 | ED.GENADULT ---
HPI - General Adult General Chief complaint: Psychiatric Symptoms Stated complaint: SI Off Meds Time Seen by Provider: 03/02/24 19:07 Source: patient Limitations: no limitations History of Present Illness ED Provider: Alyssia Gamboa PA-C HPI narrative: 59-year-old male with a history of substance abuse, homelessness, PTSD, anxiety and diabetes, presents with vague SI. 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 No specific plan for self-harm. Related Data Previous Rx's ?Medication ?Instructions ?Recorded rosuvastatin 10 mg tablet 10 mg PO DAILY 30 days #30 tabs 09/21/23 sitagliptin phosphate 100 mg 100 mg PO DAILY 30 days #30 tabs 09/21/23 tablet (Januvia) quetiapine 300 mg tablet 300 mg PO BEDTIME 30 days #30 tabs 12/03/23 Allergies Allergy/AdvReac Type Severity Reaction Status Date / Time glipizide [GLIPIZIDE] Allergy Intermediate ITCHY Verified 03/02/24 19:00 oxycodone [From TYLOX] AdvReac Intermediate CHEST PAINS Verified 03/02/24 19:00 Review of Systems Review of Systems: Yes all other systems are reviewed and are negative Constitutional: Constitutional: Denies fatigue and Denies fever(s) Cardiovascular: Cardiovascular: Denies chest pain Respiratory: Respiratory: Denies cough Gastrointestinal: Gastrointestinal: Denies abdominal pain Endocrine: Endocrine: Denies fatigue PMFSH Past Medical History Attestation statement: The following information was validated with the patient. Medical History MDD (major depressive disorder), recurrent episode, moderate Cocaine use disorder Substance-induced psychotic disorder Anxiety Diabetes Social History Social History Household Members: None Housing: Homeless Do you presently have visiting nurse or other home services: No Unable to assess alcohol history related to: Refusing to respond Alcohol intake: never Patient Tobacco Use Status: Current everyday Tobacco user Tobacco use type: Cigarette Cigarette Packs Per Day: 1 Cigarettes Per Day: 20.0 Years Smoked: 40 e-Cigarette/Vaping Use: Former Use Second Hand Smoke Exposure: Yes Substance Use Type: Crack/Cocaine Advance Directives: Yes Advance Directives on File: Yes Advance Directives Date on File: 10/24/21 service: No Sexual orientation: Straight/Heterosexual Physical Exam ED Vital Signs: Vital Signs - 24 hr 03/02/24 18:59 03/03/24 00:18 03/03/24 09:02 Temperature 97.9 F 98.4 F 97.9 F Pulse Rate 94 93 80 Respiratory Rate 18 17 18 Blood Pressure 147/74 H 147/83 H 132/74 Pulse Oximetry 97 99 98 Oxygen Delivery Method Room Air Room Air Room Air BMI result Body Mass Index 28.2 Const Other: Awake Orientation/consciousness: patient oriented x3 Resp Effort & Inspection: normal respiratory effort Cardio Other: Normal peripheral perfusion Skin Other: Warm dry no rash Neuro General: patient oriented x3, gait normal, no focal motor deficits and CN's II-XI intact bilaterally Psych Other: Cooperative Course Course Course Narrative: RME, this is a rapid medical exam performed by Wing Fitzpatrick please refer to primary provider for complete H&P- 59-year-old male presents for evaluation of depression with suicidal thoughts. Plan for medical clearance and care team evaluation. He reports he was unable to take his medications this morning. Reevaluation(s) Reevaluation #1: Patient was seen by the care team, I am able to look at the note, however it is documented that the patient will be discharged in the morning tomorrow he has been cleared by them Reevaluation #2: Dr. Dao' note: The patient was cleared for discharge by the care team this morning. The patient will be discharged to follow up with [facility] and with his PCP. The patient is calm and cooperative this morning and seems entirely appropriate for discharge. Medications Administered Generic Name Dose Route Start Last Admin Trade Name Freq PRN Reason Stop Dose Admin Atorvastatin Calcium 40 mg 03/03/24 09:00 03/03/24 08:57 Atorvastatin Calcium 40 Mg Tablet PO 40 mg DAILY NILE Administration Quetiapine Fumarate 300 mg 03/02/24 23:45 03/03/24 00:17 Quetiapine Fumarate 300 Mg Tablet PO 300 mg BEDTIME NILE Administration Sitagliptin Phosphate 100 mg 03/03/24 09:00 03/03/24 08:58 Sitagliptin Phosphate 100 Mg Tablet PO 100 mg DAILY NILE Administration Medical Decision Making Medical Decision Making MDM Narrative: 59-year-old male with a history of substance abuse, homelessness, PTSD, anxiety and diabetes, presents with vague SI. 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 No specific plan for self-harm. Problem: Homelessness, substance abuse, psychiatric illness, diabetes History: Per patient I have considered the following differential diagnoses: SI, HI, decompensated psychiatric illness, drug/alcohol intoxication, malingering, secondary gain Plan: Screening labs including U tox and serum ethanol we will be obtained, a consult we will be place with the care team. The patient is well known to the emergency department he is a high utilizer of resources. There was likely an element of underlying malingering, given his housing and security. I have independently reviewed the following tests: Labs: Lab Data 03/02/24 19:53 03/02/24 19:53 Labs: Lab Results 03/02/24 03/02/24 Range/Units 19:28 19:53 WBC 10.9 H (4.8-10.8) X10*3/uL RBC 4.92 (4.60-5.80) X10*6/uL Hgb 14.3 (14.0-18.0) g/dl Hct 41.3 L (42.0-52.0) % MCV 83.9 (80.0-98.0) fL MCH 29.1 (27.0-33.0) pg MCHC 34.6 (31.0-36.0) g/dl RDW 13.2 (11.0-16.0) % Plt Count 235 D (160-400) X10*3/uL MPV 10.0 (9.4-12.4) fL Immature Gran % (Auto) 0.5 H (0.0-0.4) % Neut % (Auto) 77.7 H (45-73) % Lymph % (Auto) 13.9 L (20-40) % [place] % (Auto) 6.8 (2-11) % Eos % (Auto) 0.6 (0-4) % Baso % (Auto) 0.5 (0-2) % Lymph # (Auto) 1.5 (1.2-4.9) X10*3/uL [place] # (Auto) 0.7 (0.1-1.2) X10*3/uL Eos # (Auto) 0.1 (0.0-0.4) X10*3/uL Baso # (Auto) 0.1 (0.0-0.2) X10*3/uL Abs Immat Gran (auto) 0.06 H (0.00-0.03) X10*3/uL Absolute Neuts (auto) 8.5 H (2.0-8.3) x10*3/uL Absolute Nucleated RBC 0.000 (0.0-0.012) X10*3/uL Nucleated RBC % (auto) 0.0 (0.0-0.2) /100WBC Sodium 140 (135-145) mmol/L Potassium 4.5 (3.3-5.1) mmol/L Chloride 106 (96-108) mmol/L Carbon Dioxide 25 (22-29) mmol/L Anion Gap 14 (12-20) BUN 16 (9-16) mg/dL Creatinine 0.88 (0.5-1.4) mg/dL Estim Creat Clear Calc 93.5 Estimated GFR > 60 Random Glucose 155 H (60-115) mg/dL Calcium 9.6 (8.4-10.2) mg/dL Total Bilirubin 0.4 (0.0-1.0) mg/dL AST 30 (5-37) U/L ALT 33 (0-40) U/L Alkaline Phosphatase 65 (39-117) U/L Total Protein 8.3 H (6.5-8.0) g/dL Albumin 4.5 (3.5-5.0) g/dL Salicylates < 5.0 L (15-30) mg/dL Urine Opiates Screen Not Detected (Not Detect) Ur Buprenorphine Scrn Not Detected (Not Detect) ng/mL Ur Oxycodone Screen Not Detected (Not Detect) ng/mL Urine Methadone Screen Not Detected (Not Detect) ng/mL Urine Fentanyl Screen Not Detected (Not Detect) Acetaminophen < 3 (<30) mcg/mL Ur Barbiturates Screen Not Detected (Not Detect) Ur Phencyclidine Scrn Not Detected (Not Detect) Ur Amphetamines Screen Not Detected (Not Detect) U Benzodiazepines Scrn Not Detected (Not Detect) Urine Cocaine Screen Not Detected (Not Detect) U Marijuana (THC) Screen Not Detected (Not Detect) Ethyl Alcohol < 10 mg/dL Discharge Plan Discharge Clinical Impression: Suicidal ideation Patient Disposition: Home, Self-Care Additional Instructions: Please continue your regular medications. Please follow up with the [facility] ([facility]) as discussed with our crisis counselor. Please also follow up with your regular doctor. Return to the emergency room if you feel significantly worse. Prescriptions: No Action rosuvastatin 10 mg tablet 10 mg PO DAILY 30 Days Qty: 30 0RF Januvia 100 mg tablet 100 mg PO DAILY 30 Days Qty: 30 0RF quetiapine 300 mg Tablet 300 mg PO BEDTIME 30 Days Qty: 30 0RF Referrals: [facility] [Outside] Yoel Parrish MD [Primary Care Provider] - (depression) Interventions: [place]-Suicide Risk Severity Scale Last Done: 03/02/24 19:42 Print Language: Syrian
[2024-03-02 18:59] VITALS: BP 147/74; PULSE 94; RESP 18; TEMP 36.6; O2SAT 97; BMI 28.2
--- NOTE | 2024-03-02 19:24 | PC.NURSE ---
in patient belongings patient has paperwork from dc from [facility] showing dc from their facility 1300 today. patient stated last medications taken this am
--- NOTE | 2024-03-02 19:37 | PC.NURSE ---
t/w completed changeover with client, searched underwear manually to allow cliient to retain them for personal preference, paitenthad no evidence of injury or contraband
[2024-03-02 19:48] LABS: Amphetamine Screen Urine Not Detected (Not Detect); Barbiturates, Urine Not Detected (Not Detect); Benzodiazepines Screen Urine Not Detected (Not Detect); Buprenorphine Scr Not Detected (Not Detect); Cannabinoid Screen Urine Not Detected (Not Detect); Cocaine Screen Urine Not Detected (Not Detect); Fentanyl, urine Not Detected (Not Detect); Methadone Screen, Urine Not Detected (Not Detect); Opiate Screen Urine Not Detected (Not Detect); Oxycodone Screen Urine Not Detected (Not Detect); Phencyclidine Screen Urine Not Detected (Not Detect)
[2024-03-02 20:00] LABS: Basophils Absolute Auto 0.1 X10*3/uL (0.0-0.2); Basophils Percent Auto 0.5 % (0-2); Eosinophils Absolute Auto 0.1 X10*3/uL (0.0-0.4); Eosinophils Percent Auto 0.6 % (0-4); Hematocrit 41.3 % (42.0-52.0); Hemoglobin 14.3 g/dl (14.0-18.0); Imm Gran Abs Auto 0.06 X10*3/uL (0.00-0.03); Imm Gran Pct Auto 0.5 % (0.0-0.4); Lymphocytes Absolute Auto 1.5 X10*3/uL (1.2-4.9); Lymphocytes Percent Auto 13.9 % (20-40); MANUAL DIFF FLAG NO; Mean Corpuscular HGB Conc 34.6 g/dl (31.0-36.0); Mean Corpuscular Hemoglobin 29.1 pg (27.0-33.0); Mean Corpuscular Volume 83.9 fL (80.0-98.0); Monocytes Absolute Auto 0.7 X10*3/uL (0.1-1.2); Monocytes Percent Auto 6.8 % (2-11); Neutrophils Absolute Auto 8.5 x10*3/uL (2.0-8.3); Neutrophils Percent Auto 77.7 % (45-73); Platelet Count 235 X10*3/uL (160-400); Red Blood Count 4.92 X10*6/uL (4.60-5.80); Red Cell Distribution Width 13.2 % (11.0-16.0); White Blood Count 10.9 X10*3/uL (4.8-10.8)
[2024-03-02 20:15] LABS: Acetaminophen LAB < 3 mcg/mL (<30); Salicylate < 5.0 mg/dL (15-30)
[2024-03-02 20:17] LABS: Alanine Aminotransferase 33 U/L (0-40); Albumin Level 4.5 g/dL (3.5-5.0); Alkaline Phosphatase 65 U/L (39-117); Anion Gap 14 (12-20); Aspartate Amino Transferase 30 U/L (5-37); Bilirubin Total 0.4 mg/dL (0.0-1.0); Blood Urea Nitrogen 16 mg/dL (9-16); Calcium 9.6 mg/dL (8.4-10.2); Carbon Dioxide 25 mmol/L (22-29); Chloride 106 mmol/L (96-108); Creatinine Clr Calc Pharmacy 93.5; Estimated Glomerular Filt Rate > 60; Ethanol < 10 mg/dL; Glucose Random 155 mg/dL (60-115); Potassium 4.5 mmol/L (3.3-5.1); Sodium 140 mmol/L (135-145); Total Protein 8.3 g/dL (6.5-8.0)
[2024-03-03] MEDS: QUEtiapine Fumarate 300 MG TABLET PO (00:17)
[2024-03-03 00:18] VITALS: BP 147/83; PULSE 93; RESP 17; TEMP 36.9; O2SAT 99
[2024-03-03] MEDS: Atorvastatin Calcium 40 MG TABLET PO (08:57)
[2024-03-03] MEDS: SITagliptin Phosphate 100 MG TABLET PO (08:58)
[2024-03-03 09:02] VITALS: BP 132/74; PULSE 80; RESP 18; TEMP 36.6; O2SAT 98
[2024-03-03 10:00] VITALS: BP 132/74; PULSE 80; RESP 18; TEMP 36.6; O2SAT 98
== END 2024-03-03 10:01 | disposition home or self-care (01) ==
PROVIDERS: Physician Assistant; Emergency Provider Emergency Medicine; PCP Internal Medicine
DX: R45.851 Suicidal ideations (principal); F33.1 Major depressive disorder, recurrent, moderate; F19.10 Other psychoactive substance abuse, uncomplicated; F43.10 Post-traumatic stress disorder, unspecified; R44.0 Auditory hallucinations; E11.9 Type 2 diabetes mellitus without complications; Z59.00 Homelessness unspecified; Z79.02 Long term (current) use of antithrombotics/antiplatelets; Z79.899 Other long term (current) drug therapy
CPT/HCPCS: 36415; 80053; 80143; 80179; 80307; 85025; 99284; S9485

== ENCOUNTER 2024-04-11 23:30 | Inpatient (IN) | payer OTHER, SELFPAY ==
[2024-04-11 23:48] VITALS: BP 141/84; PULSE 104; RESP 18; TEMP 36.9; O2SAT 100; BMI 26.0
[2024-04-12 00:31] LABS: MANUAL DIFF FLAG NO
[2024-04-12 00:32] LABS: Basophils Percent Auto 0.3 % (0-2); Eosinophils Percent Auto 0.3 % (0-4); Hematocrit 40.5 % (42.0-52.0); Hemoglobin 13.9 g/dl (14.0-18.0); Imm Gran Abs Auto 0.04 X10*3/uL (0.00-0.03); Imm Gran Pct Auto 0.4 % (0.0-0.4); Lymphocytes Absolute Auto 2.1 X10*3/uL (1.2-4.9); Lymphocytes Percent Auto 19.9 % (20-40); Mean Corpuscular HGB Conc 34.3 g/dl (31.0-36.0); Mean Corpuscular Hemoglobin 28.6 pg (27.0-33.0); Mean Corpuscular Volume 83.3 fL (80.0-98.0); Mean Platelet Volume 9.5 fL (9.4-12.4); Monocytes Absolute Auto 0.7 X10*3/uL (0.1-1.2); Monocytes Percent Auto 6.6 % (2-11); Neutrophils Absolute Auto 7.7 x10*3/uL (2.0-8.3); Neutrophils Percent Auto 72.5 % (45-73); Platelet Count 246 X10*3/uL (160-400); Red Blood Count 4.86 X10*6/uL (4.60-5.80); Red Cell Distribution Width 12.8 % (11.0-16.0); White Blood Count 10.6 X10*3/uL (4.8-10.8)
[2024-04-12 00:47] LABS: Alanine Aminotransferase 35 U/L (0-40); Albumin Level 4.4 g/dL (3.5-5.0); Alkaline Phosphatase 75 U/L (39-117); Anion Gap 13 (12-20); Aspartate Amino Transferase 23 U/L (5-37); Bilirubin Total 0.4 mg/dL (0.0-1.0); Blood Urea Nitrogen 15 mg/dL (9-16); Calcium 9.1 mg/dL (8.4-10.2); Carbon Dioxide 24 mmol/L (22-29); Chloride 104 mmol/L (96-108); Creatinine Clr Calc Pharmacy 74.5; Estimated Glomerular Filt Rate > 60; Ethanol < 10 mg/dL; Glucose Random 151 mg/dL (60-115); Potassium 3.9 mmol/L (3.3-5.1); Sodium 137 mmol/L (135-145); Total Protein 8.2 g/dL (6.5-8.0)
--- NOTE | 2024-04-12 02:54 | ED.PSYCH ---
HPI - Psych General Chief Complaint: Psychiatric Symptoms Stated Complaint: SI Time Seen by Provider: 04/12/24 01:56 Source: patient Mode of arrival: ambulatory Limitations: no limitations History of Present Illness ED Provider: HPI Narrative: Patient's history of depression going through divorce increased stressed out left his apartment now staying in a separat apartment feels suicidal and increasingly depressed lately will like to stab himself history of similar episode few months ago and was admitted denies any substance abuse, fairly compliant to his medication Related Data Previous Rx's ?Medication ?Instructions ?Recorded rosuvastatin 10 mg tablet 10 mg PO DAILY 30 days #30 tabs 09/21/23 sitagliptin phosphate 100 mg 100 mg PO DAILY 30 days #30 tabs 09/21/23 tablet (Januvia) quetiapine 300 mg tablet 300 mg PO BEDTIME 30 days #30 tabs 12/03/23 Allergies Allergy/AdvReac Type Severity Reaction Status Date / Time glipizide [GLIPIZIDE] Allergy Intermediate ITCHY Verified 04/11/24 23:51 oxycodone [From TYLOX] AdvReac Intermediate CHEST PAINS Verified 04/11/24 23:51 Review of Systems Review of Systems: Yes all other systems are reviewed and are negative PMFSH Past Medical History Medical History MDD (major depressive disorder), recurrent episode, moderate Cocaine use disorder Substance-induced psychotic disorder Anxiety Diabetes Social History Social History Household Members: None Housing: Homeless Do you presently have visiting nurse or other home services: No Unable to assess alcohol history related to: Refusing to respond Alcohol intake: current Alcohol intake frequency: a few times a month Alcohol type: beer Patient Tobacco Use Status: Current everyday Tobacco user Tobacco use type: Cigarette Cigarette Packs Per Day: 1 Cigarettes Per Day: 20.0 Years Smoked: 40 Smoked in Last 30 Days: Yes e-Cigarette/Vaping Use: Former Use Second Hand Smoke Exposure: Yes Use of substances other than those prescribed or required for medical reasons: Yes Substance Use Type: Crack/Cocaine Advance Directives: Yes Advance Directives on File: Yes Advance Directives Date on File: 10/24/21 Do you have a plan to hurt others: No Plan service: No Sexual orientation: Straight/Heterosexual Physical Exam Vital Signs: Vital Signs: Last Vital Signs Temp 98.2 F 04/12/24 06:21 Pulse 74 04/12/24 06:21 Resp 16 04/12/24 06:21 BP 145/73 H 04/12/24 06:21 Pulse Ox 98 04/12/24 06:21 O2 Del Method Room Air 04/12/24 06:21 BMI result Body Mass Index 26.0 Appearance: Alert. Oriented X3. No acute distress. Eyes: PERRLA, No Nystagmus ENT: Pharynx normal. Oral Mucosa moist Neck: Normal inspection. Neck supple. CVS: Normal heart rate and rhythm. Pulses normal. Respiratory: No respiratory distress. Equal air entry bilateral, no wheezing/rales/rhonchi Abdomen: Soft and nontender. Bowel sounds are present, no mass palpable, no CVA tenderness Skin: Skin warm and dry. Normal skin color. Normal skin turgor. Extremities: No lower extremity edema. No calf tenderness psych: Feel depressed no current suicidal thoughts no hallucination delusion Neuro: Oriented X 3. No motor deficit. No sensory deficit.No cerebellar signs , cranial nerves II-XII intact Medical Decision Making Medical Decision Making [facility] Narrative: Patient's depression with suicidal ideation with history of cocaine abuse consult care team for further evaluation placement Lab Data [facility] Lab Attestation statement: I reviewed the patient's lab results. 04/12/24 00:27 04/12/24 00:27 Labs: Lab Results 04/12/24 04/12/24 Range/Units 00:27 06:16 WBC 10.6 (4.8-10.8) X10*3/uL RBC 4.86 (4.60-5.80) X10*6/uL Hgb 13.9 L (14.0-18.0) g/dl Hct 40.5 L (42.0-52.0) % MCV 83.3 (80.0-98.0) fL MCH 28.6 (27.0-33.0) pg MCHC 34.3 (31.0-36.0) g/dl RDW 12.8 (11.0-16.0) % Plt Count 246 (160-400) X10*3/uL MPV 9.5 (9.4-12.4) fL Immature Gran % (Auto) 0.4 (0.0-0.4) % Neut % (Auto) 72.5 (45-73) % Lymph % (Auto) 19.9 L (20-40) % [place] % (Auto) 6.6 (2-11) % Eos % (Auto) 0.3 (0-4) % Baso % (Auto) 0.3 (0-2) % Lymph # (Auto) 2.1 (1.2-4.9) X10*3/uL [place] # (Auto) 0.7 (0.1-1.2) X10*3/uL Eos # (Auto) 0.0 (0.0-0.4) X10*3/uL Baso # (Auto) 0.0 (0.0-0.2) X10*3/uL Abs Immat Gran (auto) 0.04 H (0.00-0.03) X10*3/uL Absolute Neuts (auto) 7.7 (2.0-8.3) x10*3/uL Absolute Nucleated RBC 0.000 (0.0-0.012) X10*3/uL Nucleated RBC % (auto) 0.0 (0.0-0.2) /100WBC Sodium 137 (135-145) mmol/L Potassium 3.9 (3.3-5.1) mmol/L Chloride 104 (96-108) mmol/L Carbon Dioxide 24 (22-29) mmol/L Anion Gap 13 (12-20) BUN 15 (9-16) mg/dL Creatinine 1.01 (0.5-1.4) mg/dL Estim Creat Clear Calc 74.5 Estimated GFR > 60 Random Glucose 151 H (60-115) mg/dL Calcium 9.1 (8.4-10.2) mg/dL Total Bilirubin 0.4 (0.0-1.0) mg/dL AST 23 (5-37) U/L ALT 35 (0-40) U/L Alkaline Phosphatase 75 (39-117) U/L Total Protein 8.2 H (6.5-8.0) g/dL Albumin 4.4 (3.5-5.0) g/dL Urine Opiates Screen Not Detected (Not Detect) Ur Buprenorphine Scrn Not Detected (Not Detect) ng/mL Ur Oxycodone Screen Not Detected (Not Detect) ng/mL Urine Methadone Screen Not Detected (Not Detect) ng/mL Urine Fentanyl Screen Not Detected (Not Detect) Ur Barbiturates Screen Not Detected (Not Detect) Ur Phencyclidine Scrn Not Detected (Not Detect) Ur Amphetamines Screen Not Detected (Not Detect) U Benzodiazepines Scrn Not Detected (Not Detect) Urine Cocaine Screen POSITIVE H (Not Detect) U Marijuana (THC) Screen Not Detected (Not Detect) Ethyl Alcohol < 10 mg/dL Discharge Plan Discharge Clinical Impression: Depression, Chronic schizophrenia, Cocaine abuse Patient Disposition: Still a Patient Prescriptions: No Action rosuvastatin 10 mg tablet 10 mg PO DAILY 30 Days Qty: 30 0RF Januvia 100 mg tablet 100 mg PO DAILY 30 Days Qty: 30 0RF quetiapine 300 mg Tablet 300 mg PO BEDTIME 30 Days Qty: 30 0RF Interventions: [place]-Suicide Risk Severity Scale Last Done: 04/12/24 04:00 Print Language: Syriac
[2024-04-12 04:00] VITALS: BP 143/71; PULSE 75; RESP 16; O2SAT 97
[2024-04-12 06:21] VITALS: BP 145/73; PULSE 74; RESP 16; TEMP 36.8; O2SAT 98
[2024-04-12 06:32] LABS: Amphetamine Screen Urine Not Detected (Not Detect); Barbiturates, Urine Not Detected (Not Detect); Benzodiazepines Screen Urine Not Detected (Not Detect); Buprenorphine Scr Not Detected (Not Detect); Cannabinoid Screen Urine Not Detected (Not Detect); Cocaine Screen Urine POSITIVE (Not Detect); Fentanyl, urine Not Detected (Not Detect); Methadone Screen, Urine Not Detected (Not Detect); Opiate Screen Urine Not Detected (Not Detect); Oxycodone Screen Urine Not Detected (Not Detect); Phencyclidine Screen Urine Not Detected (Not Detect)
--- NOTE | 2024-04-12 09:43 | ECG_ITS ---
Test Reason : MED CLEARANCE Blood Pressure : */* mmHG Vent. Rate : 68 BPM Atrial Rate : 68 BPM P-R Int : 130 ms QRS Dur : 84 ms QT Int : 396 ms P-R-T Axes : 23 56 36 degrees QTcB Int : 421 ms Normal sinus rhythm Normal ECG When compared with ECG of 14-Feb-2024 03:05, Nonspecific T wave abnormality no longer evident in Lateral leads Referred By: Dwayne Chapman Electronically Signed By: FRANKIE DOTY MD
--- NOTE | 2024-04-12 09:51 | PC.NURSE ---
Med rec done by this RN using patient report. Patient reported these are the only 3 meds he takes.
--- NOTE | 2024-04-12 11:38 | PC.NURSE ---
Pt pleasant, calm and cooperative. Eating a snack at this time. Aware that we need urine sample. Denying any pain or complaints right now. Per admissions, pt is an inpatient bedsearch
[2024-04-12 11:49] VITALS: BP 127/70; PULSE 71; RESP 16; TEMP 36.3; O2SAT 98
[2024-04-12 13:01] VITALS: BP 160/79; PULSE 72; RESP 14; TEMP 36.4; O2SAT 98
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
[2024-04-12 14:42] VITALS: BMI 25.4
[2024-04-12 14:53] LABS: Alanine Aminotransferase 38 U/L (0-40); Albumin Level 4.4 g/dL (3.5-5.0); Anion Gap 13 (12-20); Aspartate Amino Transferase 21 U/L (5-37); Bilirubin Total 0.5 mg/dL (0.0-1.0); Blood Urea Nitrogen 13 mg/dL (9-16); Calcium 9.5 mg/dL (8.4-10.2); Carbon Dioxide 26 mmol/L (22-29); Chloride 102 mmol/L (96-108); Creatinine Clr Calc Pharmacy 67.2; Estimated Glomerular Filt Rate > 60; Glucose Random 244 mg/dL (60-115); Potassium 4.4 mmol/L (3.3-5.1); Sodium 137 mmol/L (135-145); Total Protein 8.8 g/dL (6.5-8.0)
[2024-04-12 17:09] LABS: Glucose, Whole Blood 231 mg/dL (60-115)
[2024-04-12 17:11] LABS: Alkaline Phosphatase 83 U/L (39-117)
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
[2024-04-12 20:00] VITALS: BP 151/74; PULSE 69; RESP 16; TEMP 36.3; O2SAT 99
[2024-04-12 20:26] LABS: Glucose, Whole Blood 365 mg/dL (60-115)
[2024-04-12] MEDS: QUEtiapine Fumarate 300 MG TABLET PO (20:35)
[2024-04-12] MEDS: traZODone HCL 50 MG TABLET PO (20:59)
[2024-04-12] MEDS: hydrOXYzine HCL 25 MG TABLET PO (20:59)
[2024-04-12] MEDS: OLANZapine 5 MG TABLET PO (20:59)
[2024-04-12] MEDS: Insulin Glargine,Hum.rec.anlog 100 UNIT/ML 10 ML VIAL 15 UNIT SUBCUT (23:07)
[2024-04-12] MEDS: metFORMIN HCl 1,000 MG TABLET 1000 MG PO (23:07)
[2024-04-12] MEDS: Gabapentin 300 MG CAPSULE PO (23:07)
[2024-04-13] MEDS: Omeprazole 20 MG CAPSULE.DR PO ×2 (06:52→16:31)
[2024-04-13 07:42] VITALS: BP 144/74; PULSE 78; RESP 14; TEMP 36.6; O2SAT 98
[2024-04-13 07:58] LABS: Glucose, Whole Blood 202 mg/dL (60-115)
[2024-04-13] MEDS: Fluticasone/Vilanterol 100/25 BLST.W.DEV 1 PUFF INHALE (08:55)
[2024-04-13] MEDS: Nicotine 21 MG PATCH.TD24 TRANSDERMA (08:56)
[2024-04-13] MEDS: SITagliptin Phosphate 100 MG TABLET PO (08:57)
[2024-04-13] MEDS: Docusate Sodium 100 MG CAPSULE PO ×2 (08:57→20:59)
[2024-04-13] MEDS: Gabapentin 300 MG CAPSULE PO ×2 (08:57→20:58)
[2024-04-13] MEDS: Atorvastatin Calcium 40 MG TABLET PO (08:58)
[2024-04-13] MEDS: metFORMIN HCl 1,000 MG TABLET 1000 MG PO ×2 (08:58→20:58)
[2024-04-13] MEDS: Aspirin Enteric Coated 81 MG TABLET.DR PO (08:58)
[2024-04-13] MEDS: PARoxetine HCL 40 MG TABLET PO (08:58)
[2024-04-13] MEDS: QUEtiapine Fumarate 100 MG TABLET PO (08:59)
[2024-04-13 09:05] LABS: Cholesterol 193 mg/dL (<200); HDL Cholesterol 36 mg/dL (>40); LDL Cholesterol Calculated 95 mg/dL (<100); Triglycerides 312 mg/dL (<150)
--- NOTE | 2024-04-13 11:26 | HO.PSYCHPN ---
Subjective Subjective Date of Service: 04/13/24 Reason For Visit: crisis Subjective Notes: Conditional Voluntary Interim History: Laying in bed. keeping to self. Pt reports feeling anxious and depressed ; reports auditory hallucinations that are telling him to harm himself. denies SI/HI/VH. He reports sleeping well last night. encouraged to attend groups. Medication Compliance: Yes Side effects from medications: No Mental Status Exam Mental Status Exam Narrative: Pt is alert and oriented; behavior is cooperative and calm; dressed in casual attire; mood is described as depressed and anxious ; eye contact appropriate; Speech is normal rate, volume and not pressured; thought process is organized; Thought content is on tx; denies SI/HI/VH. Pt reports auditory hallucinations that tell him to harm himself. Diagnostics Vital Signs (24Hr): Vital Signs - 24 hr 04/12/24 11:49 04/12/24 13:01 04/12/24 20:00 Temperature 97.4 F 97.5 F 97.4 F Pulse Rate 71 72 69 Respiratory Rate 16 14 16 Blood Pressure 127/70 160/79 H 151/74 H Pulse Oximetry 98 98 99 Oxygen Delivery Method Room Air Room Air Room Air 04/13/24 07:42 Temperature 97.8 F Pulse Rate 78 Respiratory Rate 14 Blood Pressure 144/74 H Pulse Oximetry 98 Oxygen Delivery Method Room Air BMI result Body Mass Index 25.4 Labs 04/12/24 00:27 04/12/24 14:11 Labs: Laboratory Results - last 48 hr 04/12/24 04/12/24 04/12/24 00:27 06:16 14:11 WBC 10.6 RBC 4.86 Hgb 13.9 L Hct 40.5 L MCV 83.3 MCH 28.6 MCHC 34.3 RDW 12.8 Plt Count 246 MPV 9.5 Immature Gran % (Auto) 0.4 Neut % (Auto) 72.5 Lymph % (Auto) 19.9 L [place] % (Auto) 6.6 Eos % (Auto) 0.3 Baso % (Auto) 0.3 Lymph # (Auto) 2.1 [place] # (Auto) 0.7 Eos # (Auto) 0.0 Baso # (Auto) 0.0 Abs Immat Gran (auto) 0.04 H Absolute Neuts (auto) 7.7 Absolute Nucleated RBC 0.000 Nucleated RBC % (auto) 0.0 Sodium 137 137 Potassium 3.9 4.4 Chloride 104 102 Carbon Dioxide 24 26 Anion Gap 13 13 BUN 15 13 Creatinine 1.01 1.12 Estim Creat Clear Calc 74.5 67.2 Estimated GFR > 60 > 60 POC Glucose Random Glucose 151 H 244 H Calcium 9.1 9.5 Total Bilirubin 0.4 0.5 AST 23 21 ALT 35 38 Alkaline Phosphatase 75 83 Total Protein 8.2 H 8.8 H Albumin 4.4 4.4 Triglycerides Cholesterol LDL Cholesterol, Calc HDL Cholesterol Urine Opiates Screen Not Detected Ur Buprenorphine Scrn Not Detected Ur Oxycodone Screen Not Detected Urine Methadone Screen Not Detected Urine Fentanyl Screen Not Detected Ur Barbiturates Screen Not Detected Ur Phencyclidine Scrn Not Detected Ur Amphetamines Screen Not Detected U Benzodiazepines Scrn Not Detected Urine Cocaine Screen POSITIVE H U Marijuana (THC) Screen Not Detected Ethyl Alcohol < 10 04/12/24 04/12/24 04/13/24 17:04 20:21 07:53 WBC RBC Hgb Hct MCV MCH MCHC RDW Plt Count MPV Immature Gran % (Auto) Neut % (Auto) Lymph % (Auto) [place] % (Auto) Eos % (Auto) Baso % (Auto) Lymph # (Auto) [place] # (Auto) Eos # (Auto) Baso # (Auto) Abs Immat Gran (auto) Absolute Neuts (auto) Absolute Nucleated RBC Nucleated RBC % (auto) Sodium Potassium Chloride Carbon Dioxide Anion Gap BUN Creatinine Estim Creat Clear Calc Estimated GFR POC Glucose 231 H 365 H* 202 H Random Glucose Calcium Total Bilirubin AST ALT Alkaline Phosphatase Total Protein Albumin Triglycerides Cholesterol LDL Cholesterol, Calc HDL Cholesterol Urine Opiates Screen Ur Buprenorphine Scrn Ur Oxycodone Screen Urine Methadone Screen Urine Fentanyl Screen Ur Barbiturates Screen Ur Phencyclidine Scrn Ur Amphetamines Screen U Benzodiazepines Scrn Urine Cocaine Screen U Marijuana (THC) Screen Ethyl Alcohol 04/13/24 08:36 WBC RBC Hgb Hct MCV MCH MCHC RDW Plt Count MPV Immature Gran % (Auto) Neut % (Auto) Lymph % (Auto) [place] % (Auto) Eos % (Auto) Baso % (Auto) Lymph # (Auto) [place] # (Auto) Eos # (Auto) Baso # (Auto) Abs Immat Gran (auto) Absolute Neuts (auto) Absolute Nucleated RBC Nucleated RBC % (auto) Sodium Potassium Chloride Carbon Dioxide Anion Gap BUN Creatinine Estim Creat Clear Calc Estimated GFR POC Glucose Random Glucose Calcium Total Bilirubin AST ALT Alkaline Phosphatase Total Protein Albumin Triglycerides 312 H Cholesterol 193 LDL Cholesterol, Calc 95 HDL Cholesterol 36 L Urine Opiates Screen Ur Buprenorphine Scrn Ur Oxycodone Screen Urine Methadone Screen Urine Fentanyl Screen Ur Barbiturates Screen Ur Phencyclidine Scrn Ur Amphetamines Screen U Benzodiazepines Scrn Urine Cocaine Screen U Marijuana (THC) Screen Ethyl Alcohol Medications Medications Current Medications Acetaminophen (Acetaminophen 325 Mg Tablet) 650 mg PO Q6H PRN PRN Reason: Headache/Pain, Scale 1-10 Al Hydroxide/Mg Hydroxide (Magnesium Hydrox/Alum Hydrox 30 Ml Oral.Susp) 30 ml PO Q6H PRN PRN Reason: Heartburn/Nausea Albuterol Sulfate (Albuterol Sulfate 90 Mcg 8 Gm Inhaler) 2 puff INHALE QID PRN PRN Reason: wheezing Aspirin (Aspirin Enteric Coated 81 Mg Tablet.Dr) 81 mg PO DAILY [facility] Last Admin: 04/13/24 08:58 Dose: 81 mg Atorvastatin Calcium (Atorvastatin Calcium 40 Mg Tablet) 40 mg PO DAILY [facility] Last Admin: 04/13/24 08:58 Dose: 40 mg Docusate Sodium (Docusate Sodium 100 Mg Capsule) 100 mg PO BID [facility] Last Admin: 04/13/24 08:57 Dose: 100 mg Fluticasone/Vilanterol (Fluticasone/Vilanterol 100/25 Blst.W.Dev) 1 puff INHALE RDAILY [facility] Last Admin: 04/13/24 08:55 Dose: 1 puff Gabapentin (Gabapentin 300 Mg Capsule) 300 mg PO BID [facility] Last Admin: 04/13/24 08:57 Dose: 300 mg Hydroxyzine HCl (Hydroxyzine Hcl 25 Mg Tablet) 25 mg PO Q6H PRN PRN Reason: mild anxiety Last Admin: 04/12/24 20:59 Dose: 25 mg Insulin Glargine (Insulin Glargine,Hum.Rec.Anlog 100 Unit/Ml 10 Ml Vial) 15 unit SUBCUT BEDTIME [facility] Last Admin: 04/12/24 23:07 Dose: 15 unit Magnesium Hydroxide (Milk Of Magnesia 30 Ml Oral.Susp) 30 ml PO DAILY PRN PRN Reason: Constipation Metformin HCl (Metformin Hcl 1,000 Mg Tablet) 1,000 mg PO BID [facility] Last Admin: 04/13/24 08:58 Dose: 1,000 mg Nicotine (Nicotine 21 Mg Patch.Td24) 21 mg TRANSDERMA DAILY [facility] Last Admin: 04/13/24 08:56 Dose: 21 mg Nicotine Polacrilex (Nicotine Polacrilex 2 Mg Gum) 4 mg BUCCAL Q2H PRN PRN Reason: Nicotine Cravings Olanzapine (Olanzapine 5 Mg Tablet) 5 mg PO Q4H PRN PRN Reason: agitation/psychosis Last Admin: 04/12/24 20:59 Dose: 5 mg Omeprazole (Omeprazole 20 Mg Capsule.Dr) 20 mg PO BID@0630,1630 [facility] Last Admin: 04/13/24 06:52 Dose: 20 mg Paroxetine HCl (Paroxetine Hcl 40 Mg Tablet) 40 mg PO DAILY [facility] Last Admin: 04/13/24 08:58 Dose: 40 mg Quetiapine Fumarate (Quetiapine Fumarate 300 Mg Tablet) 300 mg PO BEDTIME [facility] Last Admin: 04/12/24 20:35 Dose: 300 mg Quetiapine Fumarate (Quetiapine Fumarate 100 Mg Tablet) 100 mg PO DAILY [facility] Last Admin: 04/13/24 08:59 Dose: 100 mg Sitagliptin Phosphate (Sitagliptin Phosphate 100 Mg Tablet) 100 mg PO DAILY [facility] Last Admin: 04/13/24 08:57 Dose: 100 mg Trazodone HCl (Trazodone Hcl 50 Mg Tablet) 50 mg PO BEDTIME MRX1 PRN PRN Reason: Insomnia Last Admin: 04/12/24 20:59 Dose: 50 mg Allergies Allergies Allergy/AdvReac Type Severity Reaction Status Date / Time glipizide [GLIPIZIDE] Allergy Intermediate ITCHY Verified 04/11/24 23:51 oxycodone [From TYLOX] AdvReac Intermediate CHEST PAINS Verified 04/11/24 23:51 Assessment & Plan Assessment & Plan (1) MDD (major depressive disorder), recurrent episode, moderate: Status: Acute Code(s): F33.1 - Major depressive disorder, recurrent, moderate (2) Cocaine use disorder: Status: Acute Code(s): F14.10 - Cocaine abuse, uncomplicated (3) Homeless single person: Status: Acute Code(s): Z59.00 - Homelessness unspecified Plan Patient is a 59 year old male with hx of MDD and cocaine use d/o, who self presented to [facility] due to suicidal ideation with a plan to stab himself secondary to multiple life stressors. Plan: CV 15 minute safety checks Continue home medications Encourage groups Referral to outpatient psychiatric providers Discharge planning 04/13: Laying in bed. keeping to self. Pt reports feeling anxious and depressed ; reports auditory hallucinations that are telling him to harm himself. denies SI/HI/VH. He reports sleeping well last night. encouraged to attend groups. Patient educated on: diagnosis, medication risk/benefits and therapeutic strategies Reason for continued inpatient stay Substantial Risk for: med/psych decompensation Time Spent With Patient Time: Total time managing care of this patient today _20___ minutes.
[2024-04-13 11:59] LABS: Glucose, Whole Blood 243 mg/dL (60-115)
[2024-04-13 17:00] LABS: Glucose, Whole Blood 253 mg/dL (60-115)
[2024-04-13 20:00] VITALS: BP 140/70; PULSE 77; RESP 16; TEMP 36.3; O2SAT 99
[2024-04-13 20:23] LABS: Glucose, Whole Blood 222 mg/dL (60-115)
[2024-04-13] MEDS: Insulin Glargine,Hum.rec.anlog 100 UNIT/ML 10 ML VIAL 15 UNIT SUBCUT (20:56)
[2024-04-13] MEDS: QUEtiapine Fumarate 300 MG TABLET PO (20:59)
[2024-04-13] MEDS: traZODone HCL 50 MG TABLET PO (20:59)
[2024-04-13] MEDS: OLANZapine 5 MG TABLET PO (20:59)
[2024-04-13] MEDS: hydrOXYzine HCL 25 MG TABLET PO (20:59)
[2024-04-14] MEDS: Omeprazole 20 MG CAPSULE.DR PO ×2 (06:41→16:09)
[2024-04-14 07:45] LABS: Glucose, Whole Blood 221 mg/dL (60-115)
[2024-04-14 07:48] VITALS: BP 124/64; PULSE 96; RESP 16; TEMP 36.8; O2SAT 98
[2024-04-14] MEDS: QUEtiapine Fumarate 100 MG TABLET PO (08:45)
[2024-04-14] MEDS: PARoxetine HCL 40 MG TABLET PO (08:45)
[2024-04-14] MEDS: Nicotine 21 MG PATCH.TD24 TRANSDERMA (08:45)
[2024-04-14] MEDS: Atorvastatin Calcium 40 MG TABLET PO (08:45)
[2024-04-14] MEDS: metFORMIN HCl 1,000 MG TABLET 1000 MG PO ×2 (08:46→21:02)
[2024-04-14] MEDS: SITagliptin Phosphate 100 MG TABLET PO (08:46)
[2024-04-14] MEDS: Fluticasone/Vilanterol 100/25 BLST.W.DEV 1 PUFF INHALE (08:46)
[2024-04-14] MEDS: Aspirin Enteric Coated 81 MG TABLET.DR PO (08:46)
[2024-04-14] MEDS: Docusate Sodium 100 MG CAPSULE PO ×2 (08:46→21:02)
[2024-04-14] MEDS: Gabapentin 300 MG CAPSULE PO ×2 (08:46→21:02)
[2024-04-14] MEDS: Acetaminophen 325 MG TABLET 650 MG PO ×2 (09:29→21:02)
--- NOTE | 2024-04-14 10:17 | HO.PSYCHPN ---
Subjective Subjective Date of Service: 04/14/24 Reason For Visit: crisis Subjective Notes: Conditional Voluntary Interim History: Pt continues to report feeling depressed ; he states the voices are making him depressed d/t telling him to harm himself. discussed medications; agreed to start risperidal 1mg PO bedtime. denies HI/VH. He reports passive SI with no plan. per nursing, slept 9 hours last night. Medication Compliance: Yes Side effects from medications: No Attending Groups: No Mental Status Exam Mental Status Exam Narrative: Pt is alert and oriented; behavior is cooperative and calm; dressed in casual attire; mood is described as depressed ; eye contact appropriate; Speech is normal rate, volume and not pressured; thought process is organized; Thought content is on tx; denies HI/VH. Pt reports auditory hallucinations that tell him to harm himself. Passive SI. Diagnostics Vital Signs (24Hr): Vital Signs - 24 hr 04/13/24 20:00 04/14/24 07:48 Temperature 97.3 F 98.2 F Pulse Rate 77 96 Respiratory Rate 16 16 Blood Pressure 140/70 H 124/64 Pulse Oximetry 99 98 Oxygen Delivery Method Room Air Room Air BMI result Body Mass Index 25.4 Labs 04/12/24 00:27 04/12/24 14:11 Labs: Laboratory Results - last 48 hr 04/12/24 04/12/24 04/12/24 14:11 17:04 20:21 Sodium 137 Potassium 4.4 Chloride 102 Carbon Dioxide 26 Anion Gap 13 BUN 13 Creatinine 1.12 Estim Creat Clear Calc 67.2 Estimated GFR > 60 POC Glucose 231 H 365 H* Random Glucose 244 H Calcium 9.5 Total Bilirubin 0.5 AST 21 ALT 38 Alkaline Phosphatase 83 Total Protein 8.8 H Albumin 4.4 Triglycerides Cholesterol LDL Cholesterol, Calc HDL Cholesterol 04/13/24 04/13/24 04/13/24 07:53 08:36 11:55 Sodium Potassium Chloride Carbon Dioxide Anion Gap BUN Creatinine Estim Creat Clear Calc Estimated GFR POC Glucose 202 H 243 H Random Glucose Calcium Total Bilirubin AST ALT Alkaline Phosphatase Total Protein Albumin Triglycerides 312 H Cholesterol 193 LDL Cholesterol, Calc 95 HDL Cholesterol 36 L 04/13/24 04/13/24 04/14/24 16:56 20:09 07:37 Sodium Potassium Chloride Carbon Dioxide Anion Gap BUN Creatinine Estim Creat Clear Calc Estimated GFR POC Glucose 253 H 222 H 221 H Random Glucose Calcium Total Bilirubin AST ALT Alkaline Phosphatase Total Protein Albumin Triglycerides Cholesterol LDL Cholesterol, Calc HDL Cholesterol Medications Medications Current Medications Acetaminophen (Acetaminophen 325 Mg Tablet) 650 mg PO Q6H PRN PRN Reason: Headache/Pain, Scale 1-10 Last Admin: 04/14/24 09:29 Dose: 650 mg Al Hydroxide/Mg Hydroxide (Magnesium Hydrox/Alum Hydrox 30 Ml Oral.Susp) 30 ml PO Q6H PRN PRN Reason: Heartburn/Nausea Albuterol Sulfate (Albuterol Sulfate 90 Mcg 8 Gm Inhaler) 2 puff INHALE QID PRN PRN Reason: wheezing Aspirin (Aspirin Enteric Coated 81 Mg Tablet.Dr) 81 mg PO DAILY [facility] Last Admin: 04/14/24 08:46 Dose: 81 mg Atorvastatin Calcium (Atorvastatin Calcium 40 Mg Tablet) 40 mg PO DAILY [facility] Last Admin: 04/14/24 08:45 Dose: 40 mg Docusate Sodium (Docusate Sodium 100 Mg Capsule) 100 mg PO BID [facility] Last Admin: 04/14/24 08:46 Dose: 100 mg Fluticasone/Vilanterol (Fluticasone/Vilanterol 100/25 Blst.W.Dev) 1 puff INHALE RDAILY [facility] Last Admin: 04/14/24 08:46 Dose: 1 puff Gabapentin (Gabapentin 300 Mg Capsule) 300 mg PO BID [facility] Last Admin: 04/14/24 08:46 Dose: 300 mg Hydroxyzine HCl (Hydroxyzine Hcl 25 Mg Tablet) 25 mg PO Q6H PRN PRN Reason: mild anxiety Last Admin: 04/13/24 20:59 Dose: 25 mg Insulin Glargine (Insulin Glargine,Hum.Rec.Anlog 100 Unit/Ml 10 Ml Vial) 15 unit SUBCUT BEDTIME [facility] Last Admin: 04/13/24 20:56 Dose: 15 unit Magnesium Hydroxide (Milk Of Magnesia 30 Ml Oral.Susp) 30 ml PO DAILY PRN PRN Reason: Constipation Metformin HCl (Metformin Hcl 1,000 Mg Tablet) 1,000 mg PO BID [facility] Last Admin: 04/14/24 08:46 Dose: 1,000 mg Nicotine (Nicotine 21 Mg Patch.Td24) 21 mg TRANSDERMA DAILY [facility] Last Admin: 04/14/24 08:45 Dose: 21 mg Nicotine Polacrilex (Nicotine Polacrilex 2 Mg Gum) 4 mg BUCCAL Q2H PRN PRN Reason: Nicotine Cravings Olanzapine (Olanzapine 5 Mg Tablet) 5 mg PO Q4H PRN PRN Reason: agitation/psychosis Last Admin: 04/13/24 20:59 Dose: 5 mg Omeprazole (Omeprazole 20 Mg Capsule.Dr) 20 mg PO BID@0630,1630 [facility] Last Admin: 04/14/24 06:41 Dose: 20 mg Paroxetine HCl (Paroxetine Hcl 40 Mg Tablet) 40 mg PO DAILY [facility] Last Admin: 04/14/24 08:45 Dose: 40 mg Quetiapine Fumarate (Quetiapine Fumarate 300 Mg Tablet) 300 mg PO BEDTIME [facility] Last Admin: 04/13/24 20:59 Dose: 300 mg Quetiapine Fumarate (Quetiapine Fumarate 100 Mg Tablet) 100 mg PO DAILY [facility] Last Admin: 04/14/24 08:45 Dose: 100 mg Sitagliptin Phosphate (Sitagliptin Phosphate 100 Mg Tablet) 100 mg PO DAILY [facility] Last Admin: 04/14/24 08:46 Dose: 100 mg Trazodone HCl (Trazodone Hcl 50 Mg Tablet) 50 mg PO BEDTIME MRX1 PRN PRN Reason: Insomnia Last Admin: 04/13/24 20:59 Dose: 50 mg Allergies Allergies Allergy/AdvReac Type Severity Reaction Status Date / Time glipizide [GLIPIZIDE] Allergy Intermediate ITCHY Verified 04/11/24 23:51 oxycodone [From TYLOX] AdvReac Intermediate CHEST PAINS Verified 04/11/24 23:51 Assessment & Plan Assessment & Plan (1) MDD (major depressive disorder), recurrent episode, moderate: Status: Acute Code(s): F33.1 - Major depressive disorder, recurrent, moderate (2) Cocaine use disorder: Status: Acute Code(s): F14.10 - Cocaine abuse, uncomplicated (3) Homeless single person: Status: Acute Code(s): Z59.00 - Homelessness unspecified Plan Patient is a 59 year old male with hx of MDD and cocaine use d/o, who self presented to [facility] due to suicidal ideation with a plan to stab himself secondary to multiple life stressors. Plan: CV 15 minute safety checks Continue home medications Encourage groups Referral to outpatient psychiatric providers Discharge planning 04/13: Laying in bed. keeping to self. Pt reports feeling anxious and depressed ; reports auditory hallucinations that are telling him to harm himself. denies SI/HI/VH. He reports sleeping well last night. encouraged to attend groups. 04/14: Pt continues to report feeling depressed ; he states the voices are making him depressed d/t telling him to harm himself. discussed medications; agreed to start risperidal 1mg PO bedtime. denies HI/VH. He reports passive SI with no plan. per nursing, slept 9 hours last night. Patient educated on: diagnosis and medication risk/benefits Reason for continued inpatient stay Substantial Risk for: harm to self and med/psych decompensation Time Spent With Patient Time: Total time managing care of this patient today _20___ minutes.
[2024-04-14 12:09] LABS: Glucose, Whole Blood 210 mg/dL (60-115)
[2024-04-14] MEDS: hydrOXYzine HCL 25 MG TABLET PO ×2 (15:01→21:02)
[2024-04-14 16:49] LABS: Glucose, Whole Blood 201 mg/dL (60-115)
[2024-04-14 20:00] VITALS: BP 141/71; PULSE 77; RESP 16; TEMP 36.3; O2SAT 98
[2024-04-14 20:55] LABS: Glucose, Whole Blood 262 mg/dL (60-115)
[2024-04-14] MEDS: Insulin Glargine,Hum.rec.anlog 100 UNIT/ML 10 ML VIAL 15 UNIT SUBCUT (21:01)
[2024-04-14] MEDS: QUEtiapine Fumarate 300 MG TABLET PO (21:02)
[2024-04-14] MEDS: risperiDONE 1 MG TABLET PO (21:02)
[2024-04-14] MEDS: traZODone HCL 50 MG TABLET PO (21:02)
[2024-04-14] MEDS: OLANZapine 5 MG TABLET PO (21:02)
[2024-04-15] MEDS: Omeprazole 20 MG CAPSULE.DR PO ×2 (06:38→16:48)
[2024-04-15 07:35] VITALS: BP 130/69; PULSE 96; RESP 14; TEMP 36.4; O2SAT 97
[2024-04-15 07:40] LABS: Glucose, Whole Blood 198 mg/dL (60-115)
[2024-04-15] MEDS: QUEtiapine Fumarate 100 MG TABLET PO (08:31)
[2024-04-15] MEDS: metFORMIN HCl 1,000 MG TABLET 1000 MG PO ×2 (08:31→21:39)
[2024-04-15] MEDS: SITagliptin Phosphate 100 MG TABLET PO (08:32)
[2024-04-15] MEDS: Docusate Sodium 100 MG CAPSULE PO ×2 (08:32→21:40)
[2024-04-15] MEDS: Atorvastatin Calcium 40 MG TABLET PO (08:32)
[2024-04-15] MEDS: Gabapentin 300 MG CAPSULE PO ×2 (08:32→21:40)
[2024-04-15] MEDS: Aspirin Enteric Coated 81 MG TABLET.DR PO (08:32)
[2024-04-15] MEDS: PARoxetine HCL 40 MG TABLET PO (08:32)
[2024-04-15] MEDS: Nicotine 21 MG PATCH.TD24 TRANSDERMA (08:33)
--- NOTE | 2024-04-15 09:22 | HO.PSYCHPN ---
Subjective Subjective Date of Service: 04/15/24 Reason For Visit: crisis Subjective Notes: Conditional Voluntary Interim History: Pt continues to report feeling depressed ; patient stated, I am having suicidal thoughts to stab myself so that I can be with my . denies HI/VH. He does report his voices have decreased. Patient reports nightmares; discussed starting on prazosin, risks/benefits reviewed. Patient agreed to trial. Start: Prazosin 1mg PO bedtime. Medication Compliance: Yes Side effects from medications: No Mental Status Exam Mental Status Exam Narrative: Pt is alert and oriented; behavior is cooperative and calm; dressed in casual attire; mood is described as depressed ; eye contact appropriate; Speech is normal rate, volume and not pressured; thought process is organized; Thought content is on tx; denies HI/VH. Pt reports auditory hallucinations that tell him to harm himself but have decreased. +SI to stab himself. Diagnostics Vital Signs (24Hr): Vital Signs - 24 hr 04/14/24 20:00 04/15/24 07:35 Temperature 97.3 F 97.5 F Pulse Rate 77 96 Respiratory Rate 16 14 Blood Pressure 141/71 H 130/69 Pulse Oximetry 98 97 Oxygen Delivery Method Room Air Room Air BMI result Body Mass Index 25.4 Labs 04/12/24 00:27 04/12/24 14:11 Labs: Laboratory Results - last 48 hr 04/13/24 04/13/24 04/13/24 11:55 16:56 20:09 POC Glucose 243 H 253 H 222 H 04/14/24 04/14/24 04/14/24 07:37 12:04 16:41 POC Glucose 221 H 210 H 201 H 04/14/24 04/15/24 20:51 07:33 POC Glucose 262 H 198 H Medications Medications Current Medications Acetaminophen (Acetaminophen 325 Mg Tablet) 650 mg PO Q6H PRN PRN Reason: Headache/Pain, Scale 1-10 Last Admin: 04/14/24 21:02 Dose: 650 mg Al Hydroxide/Mg Hydroxide (Magnesium Hydrox/Alum Hydrox 30 Ml Oral.Susp) 30 ml PO Q6H PRN PRN Reason: Heartburn/Nausea Albuterol Sulfate (Albuterol Sulfate 90 Mcg 8 Gm Inhaler) 2 puff INHALE QID PRN PRN Reason: wheezing Aspirin (Aspirin Enteric Coated 81 Mg Tablet.Dr) 81 mg PO DAILY [facility] Last Admin: 04/15/24 08:32 Dose: 81 mg Atorvastatin Calcium (Atorvastatin Calcium 40 Mg Tablet) 40 mg PO DAILY [facility] Last Admin: 04/15/24 08:32 Dose: 40 mg Docusate Sodium (Docusate Sodium 100 Mg Capsule) 100 mg PO BID [facility] Last Admin: 04/15/24 08:32 Dose: 100 mg Fluticasone/Vilanterol (Fluticasone/Vilanterol 100/25 Blst.W.Dev) 1 puff INHALE RDAILY [facility] Last Admin: 04/14/24 08:46 Dose: 1 puff Gabapentin (Gabapentin 300 Mg Capsule) 300 mg PO BID [facility] Last Admin: 04/15/24 08:32 Dose: 300 mg Hydroxyzine HCl (Hydroxyzine Hcl 25 Mg Tablet) 25 mg PO Q6H PRN PRN Reason: mild anxiety Last Admin: 04/14/24 21:02 Dose: 25 mg Insulin Glargine (Insulin Glargine,Hum.Rec.Anlog 100 Unit/Ml 10 Ml Vial) 15 unit SUBCUT BEDTIME [facility] Last Admin: 04/14/24 21:01 Dose: 15 unit Magnesium Hydroxide (Milk Of Magnesia 30 Ml Oral.Susp) 30 ml PO DAILY PRN PRN Reason: Constipation Metformin HCl (Metformin Hcl 1,000 Mg Tablet) 1,000 mg PO BID [facility] Last Admin: 04/15/24 08:31 Dose: 1,000 mg Nicotine (Nicotine 21 Mg Patch.Td24) 21 mg TRANSDERMA DAILY [facility] Last Admin: 04/15/24 08:33 Dose: 21 mg Nicotine Polacrilex (Nicotine Polacrilex 2 Mg Gum) 4 mg BUCCAL Q2H PRN PRN Reason: Nicotine Cravings Olanzapine (Olanzapine 5 Mg Tablet) 5 mg PO Q4H PRN PRN Reason: agitation/psychosis Last Admin: 04/14/24 21:02 Dose: 5 mg Omeprazole (Omeprazole 20 Mg Capsule.) 20 mg PO BID@0630,1630 [facility] Last Admin: 04/15/24 06:38 Dose: 20 mg Paroxetine HCl (Paroxetine Hcl 40 Mg Tablet) 40 mg PO DAILY [facility] Last Admin: 04/15/24 08:32 Dose: 40 mg Quetiapine Fumarate (Quetiapine Fumarate 300 Mg Tablet) 300 mg PO BEDTIME [facility] Last Admin: 04/14/24 21:02 Dose: 300 mg Quetiapine Fumarate (Quetiapine Fumarate 100 Mg Tablet) 100 mg PO DAILY [facility] Last Admin: 04/15/24 08:31 Dose: 100 mg Risperidone (Risperidone 1 Mg Tablet) 1 mg PO BEDTIME [facility] Last Admin: 04/14/24 21:02 Dose: 1 mg Sitagliptin Phosphate (Sitagliptin Phosphate 100 Mg Tablet) 100 mg PO DAILY [facility] Last Admin: 04/15/24 08:32 Dose: 100 mg Trazodone HCl (Trazodone Hcl 50 Mg Tablet) 50 mg PO BEDTIME MRX1 PRN PRN Reason: Insomnia Last Admin: 04/14/24 21:02 Dose: 50 mg Allergies Allergies Allergy/AdvReac Type Severity Reaction Status Date / Time glipizide [GLIPIZIDE] Allergy Intermediate ITCHY Verified 04/11/24 23:51 oxycodone [From TYLOX] AdvReac Intermediate CHEST PAINS Verified 04/11/24 23:51 Assessment & Plan Assessment & Plan (1) MDD (major depressive disorder), recurrent episode, moderate: Status: Acute Code(s): F33.1 - Major depressive disorder, recurrent, moderate (2) Cocaine use disorder: Status: Acute Code(s): F14.10 - Cocaine abuse, uncomplicated (3) Homeless single person: Status: Acute Code(s): Z59.00 - Homelessness unspecified Plan Patient is a 59 year old male with hx of MDD and cocaine use d/o, who self presented to [facility] [place] ER due to suicidal ideation with a plan to stab himself secondary to multiple life stressors. Plan: CV 15 minute safety checks Continue home medications Encourage groups Referral to outpatient psychiatric providers Discharge planning 04/13: Laying in bed. keeping to self. Pt reports feeling anxious and depressed ; reports auditory hallucinations that are telling him to harm himself. denies SI/HI/VH. He reports sleeping well last night. encouraged to attend groups. 04/14: Pt continues to report feeling depressed ; he states the voices are making him depressed d/t telling him to harm himself. discussed medications; agreed to start risperidal 1mg PO bedtime. denies HI/VH. He reports passive SI with no plan. per nursing, slept 9 hours last night. 04/15: Pt continues to report feeling depressed ; patient stated, I am having suicidal thoughts to stab myself so that I can be with my . denies HI/VH. He does report his voices have decreased. Patient reports nightmares; discussed starting on prazosin, risks/benefits reviewed. Patient agreed to trial. Start: Prazosin 1mg PO bedtime. Patient educated on: diagnosis, medication risk/benefits and therapeutic strategies Reason for continued inpatient stay Substantial Risk for: harm to self and med/psych decompensation Time Spent With Patient Time: Total time managing care of this patient today _20___ minutes.
[2024-04-15] MEDS: Fluticasone/Vilanterol 100/25 BLST.W.DEV 1 PUFF INHALE (09:26)
[2024-04-15] MEDS: Acetaminophen 325 MG TABLET 650 MG PO ×2 (09:27→20:12)
[2024-04-15 11:22] LABS: Glucose, Whole Blood 223 mg/dL (60-115)
[2024-04-15] MEDS: hydrOXYzine HCL 25 MG TABLET PO ×2 (12:01→20:12)
[2024-04-15 16:45] LABS: Glucose, Whole Blood 255 mg/dL (60-115)
[2024-04-15 18:00] LABS: Appearance Urine Clear; Color Urine Yellow; Glucose Urine UA 250 mg/dL (Negative); Leukocyte Esterase Urine Negative (Negative); Nitrite Urine Negative (Negative); PH 5.5 (5.0-9.0); Urine Blood Negative (Negative); Urine Ketones Trace mg/dL (Negative); Urine Protein Negative (Neg-Trace)
[2024-04-15 18:03] LABS: Bacteria Urine None Seen (None Seen); Hyaline Casts Urine 0-2 /LPF (0-2); RBC Urine 0-2 /HPF (0-2); Squamous Epithelial Cell Urine 0-2 /HPF (0-2); WBC Urine 0-5 /HPF (0-5)
[2024-04-15 20:20] LABS: Glucose, Whole Blood 214 mg/dL (60-115)
[2024-04-15] MEDS: QUEtiapine Fumarate 300 MG TABLET PO (21:39)
[2024-04-15] MEDS: OLANZapine 5 MG TABLET PO (21:39)
[2024-04-15] MEDS: traZODone HCL 50 MG TABLET PO (21:39)
[2024-04-15] MEDS: Insulin Glargine,Hum.rec.anlog 100 UNIT/ML 10 ML VIAL 15 UNIT SUBCUT (21:39)
[2024-04-15 21:40] VITALS: BP 137/74
[2024-04-15] MEDS: risperiDONE 1 MG TABLET PO (21:40)
[2024-04-15] MEDS: Prazosin HCL 1 MG CAPSULE PO (21:40)
[2024-04-15 21:42] VITALS: BP 137/74; PULSE 79; RESP 18; TEMP 36.4; O2SAT 99
[2024-04-16] MEDS: Omeprazole 20 MG CAPSULE.DR PO ×2 (06:54→17:27)
[2024-04-16 08:00] VITALS: BP 124/63; PULSE 87; RESP 16; TEMP 36.4; O2SAT 97
[2024-04-16 08:07] LABS: Glucose, Whole Blood 186 mg/dL (60-115)
[2024-04-16] MEDS: Fluticasone/Vilanterol 100/25 BLST.W.DEV 1 PUFF INHALE (09:44)
[2024-04-16] MEDS: Nicotine 21 MG PATCH.TD24 TRANSDERMA (09:44)
[2024-04-16] MEDS: Gabapentin 300 MG CAPSULE PO ×2 (09:45→20:53)
[2024-04-16] MEDS: Atorvastatin Calcium 40 MG TABLET PO (09:45)
[2024-04-16] MEDS: Docusate Sodium 100 MG CAPSULE PO ×2 (09:45→20:53)
[2024-04-16] MEDS: metFORMIN HCl 1,000 MG TABLET 1000 MG PO ×2 (09:45→20:53)
[2024-04-16] MEDS: PARoxetine HCL 40 MG TABLET PO (09:45)
[2024-04-16] MEDS: QUEtiapine Fumarate 100 MG TABLET PO (09:45)
[2024-04-16] MEDS: SITagliptin Phosphate 100 MG TABLET PO (09:45)
[2024-04-16] MEDS: Aspirin Enteric Coated 81 MG TABLET.DR PO (09:45)
--- NOTE | 2024-04-16 09:52 | HO.PSYCHPN ---
Subjective Subjective Date of Service: 04/16/24 Reason For Visit: crisis Subjective Notes: Conditional Voluntary Interim History: Patient was seen and discussed in rounds today. Records and plans were reviewed. He continues to be withdrawn. Having auditory hallucinations that are command in nature. No self-destructive behaviors. Contracts for safety. Not sure if the prazosin has been helpful so we will wait another night and re-evaluate. No changes were made today Review of Systems Review of Systems Yes all other systems are reviewed and are negative Mental Status Exam Mental Status Exam Narrative: In today's visit he is alert, oriented and pleasant. Normal speech. Moderate eye contact. Affect is appropriate and constricted. Still having some command hallucinations but milder. Contracts for safety. No active SI, plan or intent. Moves all limbs. No gait abnormalities. Judgment is mostly intact Diagnostics Vital Signs (24Hr): Vital Signs - 24 hr 04/15/24 21:40 04/15/24 21:42 04/16/24 08:00 Temperature 97.6 F 97.5 F Pulse Rate 79 87 Respiratory Rate 18 16 Blood Pressure 137/74 137/74 124/63 Pulse Oximetry 99 97 Oxygen Delivery Method Room Air Room Air BMI result Body Mass Index 25.4 Labs 04/12/24 00:27 04/12/24 14:11 Labs: Laboratory Results - last 48 hr 04/14/24 04/14/24 04/14/24 12:04 16:41 20:51 POC Glucose 210 H 201 H 262 H Urine Color Urine Appearance Urine pH Ur Specific [place] Urine Protein Urine Glucose (UA) Urine Ketones Urine Blood Urine Nitrite Ur Leukocyte Esterase Urine RBC Urine WBC Ur Squamous Epith Cells Urine Bacteria Hyaline Casts 04/15/24 04/15/24 04/15/24 07:33 11:13 16:39 POC Glucose 198 H 223 H 255 H Urine Color Urine Appearance Urine pH Ur Specific [place] Urine Protein Urine Glucose (UA) Urine Ketones Urine Blood Urine Nitrite Ur Leukocyte Esterase Urine RBC Urine WBC Ur Squamous Epith Cells Urine Bacteria Hyaline Casts 04/15/24 04/15/24 04/16/24 17:40 20:15 07:46 POC Glucose 214 H 186 H Urine Color Yellow Urine Appearance Clear Urine pH 5.5 Ur Specific [place] 1.020 Urine Protein Negative Urine Glucose (UA) 250 H Urine Ketones Trace Urine Blood Negative Urine Nitrite Negative Ur Leukocyte Esterase Negative Urine RBC 0-2 Urine WBC 0-5 Ur Squamous Epith Cells 0-2 Urine Bacteria None Seen Hyaline Casts 0-2 Medications Medications Current Medications Acetaminophen (Acetaminophen 325 Mg Tablet) 650 mg PO Q6H PRN PRN Reason: Headache/Pain, Scale 1-10 Last Admin: 04/15/24 20:12 Dose: 650 mg Al Hydroxide/Mg Hydroxide (Magnesium Hydrox/Alum Hydrox 30 Ml Oral.Susp) 30 ml PO Q6H PRN PRN Reason: Heartburn/Nausea Albuterol Sulfate (Albuterol Sulfate 90 Mcg 8 Gm Inhaler) 2 puff INHALE QID PRN PRN Reason: wheezing Aspirin (Aspirin Enteric Coated 81 Mg Tablet.Dr) 81 mg PO DAILY [facility] Last Admin: 04/16/24 09:45 Dose: 81 mg Atorvastatin Calcium (Atorvastatin Calcium 40 Mg Tablet) 40 mg PO DAILY [facility] Last Admin: 04/16/24 09:45 Dose: 40 mg Docusate Sodium (Docusate Sodium 100 Mg Capsule) 100 mg PO BID [facility] Last Admin: 04/16/24 09:45 Dose: 100 mg Fluticasone/Vilanterol (Fluticasone/Vilanterol 100/25 Blst.W.Dev) 1 puff INHALE RDAILY [facility] Last Admin: 04/16/24 09:44 Dose: 1 puff Gabapentin (Gabapentin 300 Mg Capsule) 300 mg PO BID [facility] Last Admin: 04/16/24 09:45 Dose: 300 mg Hydroxyzine HCl (Hydroxyzine Hcl 25 Mg Tablet) 25 mg PO Q6H PRN PRN Reason: mild anxiety Last Admin: 04/15/24 20:12 Dose: 25 mg Insulin Glargine (Insulin Glargine,Hum.Rec.Anlog 100 Unit/Ml 10 Ml Vial) 15 unit SUBCUT BEDTIME [facility] Last Admin: 04/15/24 21:39 Dose: 15 unit Magnesium Hydroxide (Milk Of Magnesia 30 Ml Oral.Susp) 30 ml PO DAILY PRN PRN Reason: Constipation Metformin HCl (Metformin Hcl 1,000 Mg Tablet) 1,000 mg PO BID [facility] Last Admin: 04/16/24 09:45 Dose: 1,000 mg Nicotine (Nicotine 21 Mg Patch.Td24) 21 mg TRANSDERMA DAILY [facility] Last Admin: 04/16/24 09:44 Dose: 21 mg Nicotine Polacrilex (Nicotine Polacrilex 2 Mg Gum) 4 mg BUCCAL Q2H PRN PRN Reason: Nicotine Cravings Olanzapine (Olanzapine 5 Mg Tablet) 5 mg PO Q4H PRN PRN Reason: agitation/psychosis Last Admin: 04/15/24 21:39 Dose: 5 mg Omeprazole (Omeprazole 20 Mg Capsule.Dr) 20 mg PO BID@0630,1630 [facility] Last Admin: 04/16/24 06:54 Dose: 20 mg Paroxetine HCl (Paroxetine Hcl 40 Mg Tablet) 40 mg PO DAILY [facility] Last Admin: 04/16/24 09:45 Dose: 40 mg Prazosin HCl (Prazosin Hcl 1 Mg Capsule) 1 mg PO BEDTIME [facility]; Protocol Last Admin: 04/15/24 21:40 Dose: 1 mg Quetiapine Fumarate (Quetiapine Fumarate 300 Mg Tablet) 300 mg PO BEDTIME [facility] Last Admin: 04/15/24 21:39 Dose: 300 mg Quetiapine Fumarate (Quetiapine Fumarate 100 Mg Tablet) 100 mg PO DAILY [facility] Last Admin: 04/16/24 09:45 Dose: 100 mg Risperidone (Risperidone 1 Mg Tablet) 1 mg PO BEDTIME [facility] Last Admin: 04/15/24 21:40 Dose: 1 mg Sitagliptin Phosphate (Sitagliptin Phosphate 100 Mg Tablet) 100 mg PO DAILY [facility] Last Admin: 04/16/24 09:45 Dose: 100 mg Trazodone HCl (Trazodone Hcl 50 Mg Tablet) 50 mg PO BEDTIME MRX1 PRN PRN Reason: Insomnia Last Admin: 04/15/24 21:39 Dose: 50 mg Allergies Allergies Allergy/AdvReac Type Severity Reaction Status Date / Time glipizide [GLIPIZIDE] Allergy Intermediate ITCHY Verified 04/11/24 23:51 oxycodone [From TYLOX] AdvReac Intermediate CHEST PAINS Verified 04/11/24 23:51 Assessment & Plan Assessment & Plan (1) MDD (major depressive disorder), recurrent episode, moderate: Status: Acute Code(s): F33.1 - Major depressive disorder, recurrent, moderate (2) Cocaine use disorder: Status: Acute Code(s): F14.10 - Cocaine abuse, uncomplicated (3) Homeless single person: Status: Acute Code(s): Z59.00 - Homelessness unspecified Plan Patient is a 59 year old male with hx of MDD and cocaine use d/o, who self presented to [facility] due to suicidal ideation with a plan to stab himself secondary to multiple life stressors. Plan: CV 15 minute safety checks Continue home medications Encourage groups Referral to outpatient psychiatric providers Discharge planning 04/13: Laying in bed. keeping to self. Pt reports feeling anxious and depressed ; reports auditory hallucinations that are telling him to harm himself. denies SI/HI/VH. He reports sleeping well last night. encouraged to attend groups. 04/14: Pt continues to report feeling depressed ; he states the voices are making him depressed d/t telling him to harm himself. discussed medications; agreed to start risperidal 1mg PO bedtime. denies HI/VH. He reports passive SI with no plan. per nursing, slept 9 hours last night. 04/15: Pt continues to report feeling depressed ; patient stated, I am having suicidal thoughts to stab myself so that I can be with my . denies HI/VH. He does report his voices have decreased. Patient reports nightmares; discussed starting on prazosin, risks/benefits reviewed. Patient agreed to trial. Start: Prazosin 1mg PO bedtime. 04/16: Continue current regimen and plans Reason for continued inpatient stay Substantial Risk for: harm to self and med/psych decompensation Time Spent With Patient Time: Total time managing care of this patient today ____ minutes.
[2024-04-16] MEDS: hydrOXYzine HCL 25 MG TABLET PO (11:41)
[2024-04-16 11:46] LABS: Glucose, Whole Blood 266 mg/dL (60-115)
[2024-04-16 16:59] LABS: Glucose, Whole Blood 208 mg/dL (60-115)
[2024-04-16 20:00] VITALS: BP 142/79; PULSE 76; RESP 16; TEMP 36.3; O2SAT 100
[2024-04-16] MEDS: QUEtiapine Fumarate 300 MG TABLET PO (20:53)
[2024-04-16] MEDS: risperiDONE 1 MG TABLET PO (20:53)
[2024-04-16] MEDS: Insulin Glargine,Hum.rec.anlog 100 UNIT/ML 10 ML VIAL 15 UNIT SUBCUT (20:55)
[2024-04-16 20:57] VITALS: BP 142/71
[2024-04-16] MEDS: Prazosin HCL 1 MG CAPSULE PO (20:57)
[2024-04-17] MEDS: Omeprazole 20 MG CAPSULE.DR PO ×2 (05:33→16:27)
[2024-04-17 08:00] VITALS: BP 133/69; PULSE 112; RESP 16; TEMP 37.1; O2SAT 93
[2024-04-17 08:01] LABS: Glucose, Whole Blood 307 mg/dL (60-115)
[2024-04-17] MEDS: hydrOXYzine HCL 25 MG TABLET PO ×2 (08:41→16:27)
[2024-04-17] MEDS: Gabapentin 300 MG CAPSULE PO ×2 (08:41→21:14)
[2024-04-17] MEDS: PARoxetine HCL 40 MG TABLET PO (08:41)
[2024-04-17] MEDS: QUEtiapine Fumarate 100 MG TABLET PO (08:41)
[2024-04-17] MEDS: metFORMIN HCl 1,000 MG TABLET 1000 MG PO ×2 (08:41→21:14)
[2024-04-17] MEDS: Docusate Sodium 100 MG CAPSULE PO ×2 (08:41→21:14)
[2024-04-17] MEDS: SITagliptin Phosphate 100 MG TABLET PO (08:41)
[2024-04-17] MEDS: Aspirin Enteric Coated 81 MG TABLET.DR PO (08:41)
[2024-04-17] MEDS: Atorvastatin Calcium 40 MG TABLET PO (08:41)
[2024-04-17] MEDS: Nicotine 21 MG PATCH.TD24 TRANSDERMA (08:42)
--- NOTE | 2024-04-17 10:18 | P.PNPSI_ITS ---
Subjective Subjective Date of Service: 04/17/24 Reason For Visit: crisis Subjective Notes: Conditional Voluntary Interim History: Patient was seen and discussed in rounds today. Records and plans were reviewed. He states that he still is having lot of auditory hallucinations which is uncomfortable. We decided to raise his Risperdal to 3 mg at night. Prazosin has been moderately helpful. No other complaints or side effects. No SI Medication Compliance: Yes Side effects from medications: No Review of Systems Review of Systems Yes all other systems are reviewed and are negative Mental Status Exam Mental Status Exam Narrative: In today's visit he is alert, oriented and pleasant. Normal speech. Moderate eye contact. Affect is appropriate and constricted. Still having some command hallucinations but only slightly milder. Contracts for safety. No active SI, plan or intent. Moves all limbs. No gait abnormalities. Judgment is mostly intact Diagnostics Vital Signs (24Hr): Vital Signs - 24 hr 04/16/24 20:00 04/16/24 20:57 04/17/24 08:00 Temperature 97.3 F 98.7 F Pulse Rate 76 112 H Respiratory Rate 16 16 Blood Pressure 142/79 H 142/71 H 133/69 Pulse Oximetry 100 93 Oxygen Delivery Method Room Air Room Air BMI result Body Mass Index 25.4 Labs 04/12/24 00:27 04/12/24 14:11 Labs: Laboratory Results - last 48 hr 04/15/24 04/15/24 04/15/24 11:13 16:39 17:40 POC Glucose 223 H 255 H Urine Color Yellow Urine Appearance Clear Urine pH 5.5 Ur Specific [place] 1.020 Urine Protein Negative Urine Glucose (UA) 250 H Urine Ketones Trace Urine Blood Negative Urine Nitrite Negative Ur Leukocyte Esterase Negative Urine RBC 0-2 Urine WBC 0-5 Ur Squamous Epith Cells 0-2 Urine Bacteria None Seen Hyaline Casts 0-2 04/15/24 04/16/24 04/16/24 20:15 07:46 11:43 POC Glucose 214 H 186 H 266 H Urine Color Urine Appearance Urine pH Ur Specific [place] Urine Protein Urine Glucose (UA) Urine Ketones Urine Blood Urine Nitrite Ur Leukocyte Esterase Urine RBC Urine WBC Ur Squamous Epith Cells Urine Bacteria Hyaline Casts 04/16/24 04/17/24 16:45 07:56 POC Glucose 208 H 307 H Urine Color Urine Appearance Urine pH Ur Specific [place] Urine Protein Urine Glucose (UA) Urine Ketones Urine Blood Urine Nitrite Ur Leukocyte Esterase Urine RBC Urine WBC Ur Squamous Epith Cells Urine Bacteria Hyaline Casts Medications Medications Current Medications Acetaminophen (Acetaminophen 325 Mg Tablet) 650 mg PO Q6H PRN PRN Reason: Headache/Pain, Scale 1-10 Last Admin: 04/15/24 20:12 Dose: 650 mg Al Hydroxide/Mg Hydroxide (Magnesium Hydrox/Alum Hydrox 30 Ml Oral.Susp) 30 ml PO Q6H PRN PRN Reason: Heartburn/Nausea Albuterol Sulfate (Albuterol Sulfate 90 Mcg 8 Gm Inhaler) 2 puff INHALE QID PRN PRN Reason: wheezing Aspirin (Aspirin Enteric Coated 81 Mg Tablet.Dr) 81 mg PO DAILY [facility] Last Admin: 04/17/24 08:41 Dose: 81 mg Atorvastatin Calcium (Atorvastatin Calcium 40 Mg Tablet) 40 mg PO DAILY [facility] Last Admin: 04/17/24 08:41 Dose: 40 mg Docusate Sodium (Docusate Sodium 100 Mg Capsule) 100 mg PO BID [facility] Last Admin: 04/17/24 08:41 Dose: 100 mg Fluticasone/Vilanterol (Fluticasone/Vilanterol 100/25 Blst.W.Dev) 1 puff INHALE RDAILY [facility] Last Admin: 04/17/24 09:39 Dose: Not Given Gabapentin (Gabapentin 300 Mg Capsule) 300 mg PO BID [facility] Last Admin: 04/17/24 08:41 Dose: 300 mg Hydroxyzine HCl (Hydroxyzine Hcl 25 Mg Tablet) 25 mg PO Q6H PRN PRN Reason: mild anxiety Last Admin: 04/17/24 08:41 Dose: 25 mg Insulin Glargine (Insulin Glargine,Hum.Rec.Anlog 100 Unit/Ml 10 Ml Vial) 15 unit SUBCUT BEDTIME [facility] Last Admin: 04/16/24 20:55 Dose: 15 unit Magnesium Hydroxide (Milk Of Magnesia 30 Ml Oral.Susp) 30 ml PO DAILY PRN PRN Reason: Constipation Metformin HCl (Metformin Hcl 1,000 Mg Tablet) 1,000 mg PO BID [facility] Last Admin: 04/17/24 08:41 Dose: 1,000 mg Nicotine (Nicotine 21 Mg Patch.Td24) 21 mg TRANSDERMA DAILY [facility] Last Admin: 04/17/24 08:42 Dose: 21 mg Nicotine Polacrilex (Nicotine Polacrilex 2 Mg Gum) 4 mg BUCCAL Q2H PRN PRN Reason: Nicotine Cravings Olanzapine (Olanzapine 5 Mg Tablet) 5 mg PO Q4H PRN PRN Reason: agitation/psychosis Last Admin: 04/15/24 21:39 Dose: 5 mg Omeprazole (Omeprazole 20 Mg Capsule.Dr) 20 mg PO BID@0630,1630 [facility] Last Admin: 04/17/24 05:33 Dose: 20 mg Paroxetine HCl (Paroxetine Hcl 40 Mg Tablet) 40 mg PO DAILY [facility] Last Admin: 04/17/24 08:41 Dose: 40 mg Prazosin HCl (Prazosin Hcl 1 Mg Capsule) 1 mg PO BEDTIME [facility]; Protocol Last Admin: 04/16/24 20:57 Dose: 1 mg Quetiapine Fumarate (Quetiapine Fumarate 300 Mg Tablet) 300 mg PO BEDTIME [facility] Last Admin: 04/16/24 20:53 Dose: 300 mg Quetiapine Fumarate (Quetiapine Fumarate 100 Mg Tablet) 100 mg PO DAILY [facility] Last Admin: 04/17/24 08:41 Dose: 100 mg Risperidone (Risperidone 1 Mg Tablet) 1 mg PO BEDTIME [facility] Last Admin: 04/16/24 20:53 Dose: 1 mg Sitagliptin Phosphate (Sitagliptin Phosphate 100 Mg Tablet) 100 mg PO DAILY [facility] Last Admin: 04/17/24 08:41 Dose: 100 mg Trazodone HCl (Trazodone Hcl 50 Mg Tablet) 50 mg PO BEDTIME MRX1 PRN PRN Reason: Insomnia Last Admin: 04/15/24 21:39 Dose: 50 mg Allergies Allergies Allergy/AdvReac Type Severity Reaction Status Date / Time glipizide [GLIPIZIDE] Allergy Intermediate ITCHY Verified 04/11/24 23:51 oxycodone [From TYLOX] AdvReac Intermediate CHEST PAINS Verified 04/11/24 23:51 Assessment & Plan Assessment & Plan (1) MDD (major depressive disorder), recurrent episode, moderate: Status: Acute Code(s): F33.1 - Major depressive disorder, recurrent, moderate (2) Cocaine use disorder: Status: Acute Code(s): F14.10 - Cocaine abuse, uncomplicated (3) Homeless single person: Status: Acute Code(s): Z59.00 - Homelessness unspecified Plan Patient is a 59 year old male with hx of MDD and cocaine use d/o, who self [place] [facility] [place] to suicidal ideation with a plan to stab himself secondary to multiple life stressors. Plan: CV 15 minute safety checks Continue home medications Encourage groups Referral to outpatient psychiatric providers Discharge planning 04/13: Laying in bed. keeping to self. Pt reports feeling anxious and depressed ; reports auditory hallucinations that are telling him to harm himself. denies SI/HI/VH. He reports sleeping well last night. encouraged to attend groups. 04/14: Pt continues to report feeling depressed ; he states the voices are making him depressed d/t telling him to harm himself. discussed medications; agreed to start risperidal 1mg PO bedtime. denies HI/VH. He reports passive SI with no plan. per nursing, slept 9 hours last night. 04/15: Pt continues to report feeling depressed ; patient stated, I am having suicidal thoughts to stab myself so that I can be with my . denies HI/VH. He does report his voices have decreased. Patient reports nightmares; discussed starting on prazosin, risks/benefits reviewed. Patient agreed to trial. Start: Prazosin 1mg PO bedtime. 04/16: Continue current regimen and plans 04/17: Continue current regimen and plans. Increased nighttime Risperdal to 3 mg Patient educated on: medication risk/benefits Reason for continued inpatient stay Substantial Risk for: med/psych decompensation Time Spent With Patient Time: Total time managing care of this patient today ____ minutes.
[2024-04-17] MEDS: Insulin Glargine,Hum.rec.anlog 100 UNIT/ML 10 ML VIAL 15 UNIT SUBCUT (21:10)
[2024-04-17 21:12] VITALS: BP 162/76; PULSE 96; RESP 16; TEMP 36.3; O2SAT 96
[2024-04-17] MEDS: Prazosin HCL 1 MG CAPSULE PO (21:14)
[2024-04-17] MEDS: QUEtiapine Fumarate 300 MG TABLET PO (21:14)
[2024-04-17] MEDS: risperiDONE 3 MG TABLET PO (21:15)
[2024-04-17] MEDS: Magnesium Hydrox/Alum Hydrox 30 ML ORAL.SUSP PO (21:22)
[2024-04-17 21:27] LABS: Glucose, Whole Blood 350 mg/dL (60-115)
[2024-04-17] MEDS: traZODone HCL 50 MG TABLET PO (21:45)
--- NOTE | 2024-04-17 21:46 | PM.EVENT ---
Event Note Date of Service: 04/17/24 Event Note: Pt is a 59-year-old male with a PMH significant for insulin-dependent type 2 diabetes who was admitted to [facility] with hospitalist consult for diabetes management. Patient's latest POC noted to be 350, however it appears that was taken shortly after pt ate ice cream. Despite this, review of records indicates pt has been hyperglycemic for most of his stay while on the unit. Currently taking 15 units Lantus at bedtime. Will place on sliding scale insulin and wait for 24-48 hours before further adjustments. Pt should be encouraged to adhere to a diabetic diet and diabetic snacking. Time Spent With Patient Time: Total time managing care of this patient today ____ minutes.
--- NOTE | 2024-04-17 22:02 | PC.NURSE ---
POC 350. hospitalist consult placed. increased POC to qid. sliding scale added. patient notified.
[2024-04-18] MEDS: traZODone HCL 50 MG TABLET PO ×2 (02:19→21:27)
[2024-04-18] MEDS: OLANZapine 5 MG TABLET PO (02:19)
[2024-04-18] MEDS: Omeprazole 20 MG CAPSULE.DR PO ×2 (06:56→17:00)
[2024-04-18 08:00] VITALS: BP 147/77; PULSE 116; RESP 16; TEMP 36.2; O2SAT 95
[2024-04-18 08:14] LABS: Glucose, Whole Blood 254 mg/dL (60-115)
[2024-04-18] MEDS: Nicotine 21 MG PATCH.TD24 TRANSDERMA (08:49)
[2024-04-18] MEDS: QUEtiapine Fumarate 100 MG TABLET PO (08:50)
[2024-04-18] MEDS: Docusate Sodium 100 MG CAPSULE PO ×2 (08:50→21:26)
[2024-04-18] MEDS: metFORMIN HCl 1,000 MG TABLET 1000 MG PO ×2 (08:50→21:27)
[2024-04-18] MEDS: Insulin Lispro 100 UNIT/ML 3 ML VIAL SUBCUT ×4 (08:50→21:27)
[2024-04-18] MEDS: Aspirin Enteric Coated 81 MG TABLET.DR PO (08:50)
[2024-04-18] MEDS: Gabapentin 300 MG CAPSULE PO ×2 (08:50→21:26)
[2024-04-18] MEDS: Atorvastatin Calcium 40 MG TABLET PO (08:50)
[2024-04-18] MEDS: PARoxetine HCL 40 MG TABLET PO (08:50)
[2024-04-18] MEDS: SITagliptin Phosphate 100 MG TABLET PO (08:50)
[2024-04-18] MEDS: Fluticasone/Vilanterol 100/25 BLST.W.DEV 1 PUFF INHALE (08:54)
--- NOTE | 2024-04-18 09:43 | P.PNPSI_ITS ---
Subjective Subjective Date of Service: 04/18/24 Reason For Visit: crisis Subjective Notes: Conditional Voluntary Interim History: Patient was seen and discussed in rounds today. Records and plans were reviewed. He is not sure whether the increase of Risperdal has been helpful but it may take a few days and I explained that to him. He is eating and sleeping well. No SI. No behavioral issues. No changes were made today Medication Compliance: Yes Side effects from medications: No Review of Systems Review of Systems Yes all other systems are reviewed and are negative Mental Status Exam Mental Status Exam Narrative: In today's visit he is alert, oriented and pleasant. Normal speech. Moderate eye contact. Affect is appropriate and constricted. Still having some command hallucinations but only slightly milder. Contracts for safety. No active SI, plan or intent. Moves all limbs. No gait abnormalities. Judgment is mostly intact Diagnostics Vital Signs (24Hr): Vital Signs - 24 hr 04/17/24 21:12 04/18/24 08:00 Temperature 97.3 F 97.1 F Pulse Rate 96 116 H Respiratory Rate 16 16 Blood Pressure 162/76 H 147/77 H Pulse Oximetry 96 95 Oxygen Delivery Method Room Air Room Air BMI result Body Mass Index 25.4 Labs 04/12/24 00:27 04/12/24 14:11 Labs: Laboratory Results - last 48 hr 04/16/24 04/16/24 04/17/24 11:43 16:45 07:56 POC Glucose 266 H 208 H 307 H 04/17/24 04/18/24 21:09 08:09 POC Glucose 350 H* 254 H Medications Medications Current Medications Acetaminophen (Acetaminophen 325 Mg Tablet) 650 mg PO Q6H PRN PRN Reason: Headache/Pain, Scale 1-10 Last Admin: 04/15/24 20:12 Dose: 650 mg Al Hydroxide/Mg Hydroxide (Magnesium Hydrox/Alum Hydrox 30 Ml Oral.Susp) 30 ml PO Q6H PRN PRN Reason: Heartburn/Nausea Last Admin: 04/17/24 21:22 Dose: 30 ml Albuterol Sulfate (Albuterol Sulfate 90 Mcg 8 Gm Inhaler) 2 puff INHALE QID PRN PRN Reason: wheezing Aspirin (Aspirin Enteric Coated 81 Mg Tablet.) 81 mg PO DAILY [facility] Last Admin: 04/18/24 08:50 Dose: 81 mg Atorvastatin Calcium (Atorvastatin Calcium 40 Mg Tablet) 40 mg PO DAILY [facility] Last Admin: 04/18/24 08:50 Dose: 40 mg Dextrose (Dextrose 50 % 25 Gm/50 Ml Syringe) 25 gm IVPUSH Q15M PRN; Protocol PRN Reason: per Hypoglycemia Standing Ord. Docusate Sodium (Docusate Sodium 100 Mg Capsule) 100 mg PO BID [facility] Last Admin: 04/18/24 08:50 Dose: 100 mg Fluticasone/Vilanterol (Fluticasone/Vilanterol 100/25 Blst.W.Dev) 1 puff INHALE RDAILY [facility] Last Admin: 04/18/24 08:54 Dose: 1 puff Gabapentin (Gabapentin 300 Mg Capsule) 300 mg PO BID [facility] Last Admin: 04/18/24 08:50 Dose: 300 mg Glucose (Glucose Gel 15 Gm Gel..Gram.) 15 gm PO Q15M PRN; Protocol PRN Reason: per Hypoglycemia Standing Ord. Hydroxyzine HCl (Hydroxyzine Hcl 25 Mg Tablet) 25 mg PO Q6H PRN PRN Reason: mild anxiety Last Admin: 04/17/24 16:27 Dose: 25 mg Insulin Glargine (Insulin Glargine,Hum.Rec.Anlog 100 Unit/Ml 10 Ml Vial) 15 unit SUBCUT BEDTIME [facility] Last Admin: 04/17/24 21:10 Dose: 15 unit Insulin Human Lispro (Insulin Lispro 100 Unit/Ml 3 Ml Vial) 0 unit SUBCUT QIDACHS [facility]; Protocol Last Admin: 04/18/24 08:50 Dose: 6 unit Magnesium Hydroxide (Milk Of Magnesia 30 Ml Oral.Susp) 30 ml PO DAILY PRN PRN Reason: Constipation Metformin HCl (Metformin Hcl 1,000 Mg Tablet) 1,000 mg PO BID [facility] Last Admin: 04/18/24 08:50 Dose: 1,000 mg Nicotine (Nicotine 21 Mg Patch.Td24) 21 mg TRANSDERMA DAILY [facility] Last Admin: 04/18/24 08:49 Dose: 21 mg Nicotine Polacrilex (Nicotine Polacrilex 2 Mg Gum) 4 mg BUCCAL Q2H PRN PRN Reason: Nicotine Cravings Olanzapine (Olanzapine 5 Mg Tablet) 5 mg PO Q4H PRN PRN Reason: agitation/psychosis Last Admin: 04/18/24 02:19 Dose: 5 mg Omeprazole (Omeprazole 20 Mg Capsule.) 20 mg PO BID@0630,1630 [facility] Last Admin: 04/18/24 06:56 Dose: 20 mg Paroxetine HCl (Paroxetine Hcl 40 Mg Tablet) 40 mg PO DAILY [facility] Last Admin: 04/18/24 08:50 Dose: 40 mg Prazosin HCl (Prazosin Hcl 1 Mg Capsule) 1 mg PO BEDTIME [facility]; Protocol Last Admin: 04/17/24 21:14 Dose: 1 mg Quetiapine Fumarate (Quetiapine Fumarate 300 Mg Tablet) 300 mg PO BEDTIME [facility] Last Admin: 04/17/24 21:14 Dose: 300 mg Quetiapine Fumarate (Quetiapine Fumarate 100 Mg Tablet) 100 mg PO DAILY [facility] Last Admin: 04/18/24 08:50 Dose: 100 mg Risperidone (Risperidone 3 Mg Tablet) 3 mg PO BEDTIME [facility] Last Admin: 04/17/24 21:15 Dose: 3 mg Sitagliptin Phosphate (Sitagliptin Phosphate 100 Mg Tablet) 100 mg PO DAILY [facility] Last Admin: 04/18/24 08:50 Dose: 100 mg Trazodone HCl (Trazodone Hcl 50 Mg Tablet) 50 mg PO BEDTIME MRX1 PRN PRN Reason: Insomnia Last Admin: 04/18/24 02:19 Dose: 50 mg Allergies Allergies Allergy/AdvReac Type Severity Reaction Status Date / Time glipizide [GLIPIZIDE] Allergy Intermediate ITCHY Verified 04/11/24 23:51 oxycodone [From TYLOX] AdvReac Intermediate CHEST PAINS Verified 04/11/24 23:51 Assessment & Plan Assessment & Plan (1) MDD (major depressive disorder), recurrent episode, moderate: Status: Acute Code(s): F33.1 - Major depressive disorder, recurrent, moderate (2) Cocaine use disorder: Status: Acute Code(s): F14.10 - Cocaine abuse, uncomplicated (3) Homeless single person: Status: Acute Code(s): Z59.00 - Homelessness unspecified Plan Patient is a 59 year old male with hx of MDD and cocaine use d/o, who self [place] [facility] [place] to [place] ideation with a plan to stab himself secondary to multiple life stressors. Plan: CV 15 minute safety checks Continue home medications Encourage groups Referral to outpatient psychiatric providers Discharge planning 04/13: Laying in bed. keeping to self. Pt reports feeling anxious and depressed ; reports auditory hallucinations that are telling him to harm himself. denies SI/HI/VH. He reports sleeping well last night. encouraged to attend groups. 04/14: Pt continues to report feeling depressed ; he states the voices are making him depressed d/t telling him to harm himself. discussed medications; agreed to start risperidal 1mg PO bedtime. denies HI/VH. He reports passive SI with no plan. per nursing, slept 9 hours last night. 04/15: Pt continues to report feeling depressed ; patient stated, I am having suicidal thoughts to stab myself so that I can be with my . denies HI/VH. He does report his voices have decreased. Patient reports nightmares; discussed starting on prazosin, risks/benefits reviewed. Patient agreed to trial. Start: Prazosin 1mg PO bedtime. 04/16: Continue current regimen and plans 04/17: Continue current regimen and plans. Increased nighttime Risperdal to 3 mg Reason for continued inpatient stay Substantial Risk for: med/psych decompensation Time Spent With Patient Time: Total time managing care of this patient today ____ minutes.
[2024-04-18 11:59] LABS: Glucose, Whole Blood 250 mg/dL (60-115)
[2024-04-18 18:56] LABS: Glucose, Whole Blood 241 mg/dL (60-115)
[2024-04-18 20:00] VITALS: BP 138/89; PULSE 88; RESP 16; TEMP 36.9; O2SAT 98
[2024-04-18] MEDS: hydrOXYzine HCL 25 MG TABLET PO (20:12)
[2024-04-18 20:45] LABS: Glucose, Whole Blood 235 mg/dL (60-115)
[2024-04-18 21:26] VITALS: BP 140/82
[2024-04-18] MEDS: QUEtiapine Fumarate 300 MG TABLET PO (21:26)
[2024-04-18] MEDS: Prazosin HCL 1 MG CAPSULE PO (21:26)
[2024-04-18] MEDS: Milk of Magnesia 30 ML ORAL.SUSP PO (21:26)
[2024-04-18] MEDS: risperiDONE 3 MG TABLET PO (21:27)
[2024-04-18] MEDS: Insulin Glargine,Hum.rec.anlog 100 UNIT/ML 10 ML VIAL 15 UNIT SUBCUT (21:29)
[2024-04-19] MEDS: Omeprazole 20 MG CAPSULE.DR PO ×2 (06:39→17:14)
[2024-04-19 08:00] VITALS: BP 139/84; PULSE 118; RESP 18; TEMP 37.7; O2SAT 92
[2024-04-19 08:08] LABS: Glucose, Whole Blood 227 mg/dL (60-115)
[2024-04-19] MEDS: Fluticasone/Vilanterol 100/25 BLST.W.DEV 1 PUFF INHALE (08:21)
[2024-04-19] MEDS: Gabapentin 300 MG CAPSULE PO ×2 (08:21→22:01)
[2024-04-19] MEDS: SITagliptin Phosphate 100 MG TABLET PO (08:21)
[2024-04-19] MEDS: PARoxetine HCL 40 MG TABLET PO (08:21)
[2024-04-19] MEDS: metFORMIN HCl 1,000 MG TABLET 1000 MG PO ×2 (08:21→22:00)
[2024-04-19] MEDS: Aspirin Enteric Coated 81 MG TABLET.DR PO (08:22)
[2024-04-19] MEDS: Docusate Sodium 100 MG CAPSULE PO ×2 (08:22→22:02)
[2024-04-19] MEDS: QUEtiapine Fumarate 100 MG TABLET PO (08:22)
[2024-04-19] MEDS: Nicotine 21 MG PATCH.TD24 TRANSDERMA (08:22)
[2024-04-19] MEDS: Insulin Lispro 100 UNIT/ML 3 ML VIAL SUBCUT ×4 (08:43→21:58)
[2024-04-19 08:47] LABS: Estimated Glomerular Filt Rate > 60
[2024-04-19] MEDS: Atorvastatin Calcium 40 MG TABLET PO (08:51)
--- NOTE | 2024-04-19 11:09 | HO.PSYCHPN ---
Subjective Subjective Date of Service: 04/19/24 Reason For Visit: crisis Subjective Notes: 3 Day Interim History: 3 day notice up on 04/22/24. Patient reports feeling a little better today; pt stated, I feel better with the meds . denies SI/HI/VH/AH. Keeping to self. not attending groups. encouraged to leave room. Reports he has been sleeping well. Medication Compliance: Yes Side effects from medications: No Attending Groups: No Mental Status Exam Mental Status Exam Narrative: Pt is alert and oriented; behavior is cooperative and calm; dressed in casual attire; mood is described as better ; eye contact appropriate; Speech is normal rate, volume and not pressured; thought process is organized; Thought content is on tx; denies SI/HI/VH/AH. Diagnostics Vital Signs (24Hr): Vital Signs - 24 hr 04/18/24 20:00 04/18/24 21:26 04/19/24 08:00 Temperature 98.4 F 99.8 F Pulse Rate 88 118 H Respiratory Rate 16 18 Blood Pressure 138/89 140/82 H 139/84 Pulse Oximetry 98 92 Oxygen Delivery Method Room Air Room Air BMI result Body Mass Index 25.4 Labs 04/12/24 00:27 04/19/24 08:26 Labs: Laboratory Results - last 48 hr 04/17/24 04/18/24 04/18/24 21:09 08:09 11:50 Creatinine Estim Creat Clear Calc Estimated GFR POC Glucose 350 H* 254 H 250 H 04/18/24 04/18/24 04/19/24 16:46 20:41 07:55 Creatinine Estim Creat Clear Calc Estimated GFR POC Glucose 241 H 235 H 227 H 04/19/24 08:26 Creatinine 1.14 Estim Creat Clear Calc 66.0 Estimated GFR > 60 POC Glucose Medications Medications Current Medications Acetaminophen (Acetaminophen 325 Mg Tablet) 650 mg PO Q6H PRN PRN Reason: Headache/Pain, Scale 1-10 Last Admin: 04/15/24 20:12 Dose: 650 mg Al Hydroxide/Mg Hydroxide (Magnesium Hydrox/Alum Hydrox 30 Ml Oral.Susp) 30 ml PO Q6H PRN PRN Reason: Heartburn/Nausea Last Admin: 04/17/24 21:22 Dose: 30 ml Albuterol Sulfate (Albuterol Sulfate 90 Mcg 8 Gm Inhaler) 2 puff INHALE QID PRN PRN Reason: wheezing Aspirin (Aspirin Enteric Coated 81 Mg Tablet.Dr) 81 mg PO DAILY [facility] Last Admin: 04/19/24 08:22 Dose: 81 mg Atorvastatin Calcium (Atorvastatin Calcium 40 Mg Tablet) 40 mg PO DAILY [facility] Last Admin: 04/19/24 08:51 Dose: 40 mg Dextrose (Dextrose 50 % 25 Gm/50 Ml Syringe) 25 gm IVPUSH Q15M PRN; Protocol PRN Reason: per Hypoglycemia Standing Ord. Docusate Sodium (Docusate Sodium 100 Mg Capsule) 100 mg PO BID [facility] Last Admin: 04/19/24 08:22 Dose: 100 mg Fluticasone/Vilanterol (Fluticasone/Vilanterol 100/25 Blst.W.Dev) 1 puff INHALE RDAILY [facility] Last Admin: 04/19/24 08:21 Dose: 1 puff Gabapentin (Gabapentin 300 Mg Capsule) 300 mg PO BID [facility] Last Admin: 04/19/24 08:21 Dose: 300 mg Glucose (Glucose Gel 15 Gm Gel..Gram.) 15 gm PO Q15M PRN; Protocol PRN Reason: per Hypoglycemia Standing Ord. Hydroxyzine HCl (Hydroxyzine Hcl 25 Mg Tablet) 25 mg PO Q6H PRN PRN Reason: mild anxiety Last Admin: 04/18/24 20:12 Dose: 25 mg Insulin Glargine (Insulin Glargine,Hum.Rec.Anlog 100 Unit/Ml 10 Ml Vial) 20 unit SUBCUT BEDTIME [facility] Insulin Human Lispro (Insulin Lispro 100 Unit/Ml 3 Ml Vial) 0 unit SUBCUT QIDACHS [facility]; Protocol Last Admin: 04/19/24 08:43 Dose: 4 unit Magnesium Hydroxide (Milk Of Magnesia 30 Ml Oral.Susp) 30 ml PO DAILY PRN PRN Reason: Constipation Last Admin: 04/18/24 21:26 Dose: 30 ml Metformin HCl (Metformin Hcl 1,000 Mg Tablet) 1,000 mg PO BID [facility] Last Admin: 04/19/24 08:21 Dose: 1,000 mg Nicotine (Nicotine 21 Mg Patch.Td24) 21 mg TRANSDERMA DAILY [facility] Last Admin: 04/19/24 08:22 Dose: 21 mg Nicotine Polacrilex (Nicotine Polacrilex 2 Mg Gum) 4 mg BUCCAL Q2H PRN PRN Reason: Nicotine Cravings Olanzapine (Olanzapine 5 Mg Tablet) 5 mg PO Q4H PRN PRN Reason: agitation/psychosis Last Admin: 04/18/24 02:19 Dose: 5 mg Omeprazole (Omeprazole 20 Mg Capsule.) 20 mg PO BID@0630,1630 [facility] Last Admin: 04/19/24 06:39 Dose: 20 mg Paroxetine HCl (Paroxetine Hcl 40 Mg Tablet) 40 mg PO DAILY [facility] Last Admin: 04/19/24 08:21 Dose: 40 mg Prazosin HCl (Prazosin Hcl 1 Mg Capsule) 1 mg PO BEDTIME [facility]; Protocol Last Admin: 04/18/24 21:26 Dose: 1 mg Quetiapine Fumarate (Quetiapine Fumarate 300 Mg Tablet) 300 mg PO BEDTIME [facility] Last Admin: 04/18/24 21:26 Dose: 300 mg Quetiapine Fumarate (Quetiapine Fumarate 100 Mg Tablet) 100 mg PO DAILY [facility] Last Admin: 04/19/24 08:22 Dose: 100 mg Risperidone (Risperidone 3 Mg Tablet) 3 mg PO BEDTIME [facility] Last Admin: 04/18/24 21:27 Dose: 3 mg Sitagliptin Phosphate (Sitagliptin Phosphate 100 Mg Tablet) 100 mg PO DAILY [facility] Last Admin: 04/19/24 08:21 Dose: 100 mg Trazodone HCl (Trazodone Hcl 50 Mg Tablet) 50 mg PO BEDTIME MRX1 PRN PRN Reason: Insomnia Last Admin: 04/18/24 21:27 Dose: 50 mg Allergies Allergies Allergy/AdvReac Type Severity Reaction Status Date / Time glipizide [GLIPIZIDE] Allergy Intermediate ITCHY Verified 04/11/24 23:51 oxycodone [From TYLOX] AdvReac Intermediate CHEST PAINS Verified 04/11/24 23:51 Assessment & Plan Assessment & Plan (1) MDD (major depressive disorder), recurrent episode, moderate: Status: Acute Code(s): F33.1 - Major depressive disorder, recurrent, moderate (2) Cocaine use disorder: Status: Acute Code(s): F14.10 - Cocaine abuse, uncomplicated (3) Homeless single person: Status: Acute Code(s): Z59.00 - Homelessness unspecified Plan Patient is a 59 year old male with hx of MDD and cocaine use d/o, who self presented to [facility] [place] [facility] due to suicidal ideation with a plan to stab himself secondary to multiple life stressors. Plan: CV 15 minute safety checks Continue home medications Encourage groups Referral to outpatient psychiatric providers Discharge planning 04/13: Laying in bed. keeping to self. Pt reports feeling anxious and depressed ; reports auditory hallucinations that are telling him to harm himself. denies SI/HI/VH. He reports sleeping well last night. encouraged to attend groups. 04/14: Pt continues to report feeling depressed ; he states the voices are making him depressed d/t telling him to harm himself. discussed medications; agreed to start risperidal 1mg PO bedtime. denies HI/VH. He reports passive SI with no plan. per nursing, slept 9 hours last night. 04/15: Pt continues to report feeling depressed ; patient stated, I am having suicidal thoughts to stab myself so that I can be with my . denies HI/VH. He does report his voices have decreased. Patient reports nightmares; discussed starting on prazosin, risks/benefits reviewed. Patient agreed to trial. Start: Prazosin 1mg PO bedtime. 04/16: Continue current regimen and plans 04/17: Continue current regimen and plans. Increased nighttime Risperdal to 3 mg 04/19: 3 day notice up on 04/22/24. Patient reports feeling a little better today; pt stated, I feel better with the meds . denies SI/HI/VH/AH. Keeping to self. not attending groups. encouraged to leave room. Reports he has been sleeping well. Patient educated on: diagnosis, medication risk/benefits and therapeutic strategies Reason for continued inpatient stay Substantial Risk for: med/psych decompensation Time Spent With Patient Time: Total time managing care of this patient today _20___ minutes.
[2024-04-19 11:43] LABS: Glucose, Whole Blood 273 mg/dL (60-115)
[2024-04-19 16:48] LABS: Glucose, Whole Blood 165 mg/dL (60-115)
[2024-04-19 20:00] VITALS: BP 150/72; PULSE 96; RESP 16; TEMP 37.6; O2SAT 95
[2024-04-19 21:32] LABS: Glucose, Whole Blood 226 mg/dL (60-115)
[2024-04-19] MEDS: Insulin Glargine,Hum.rec.anlog 100 UNIT/ML 10 ML VIAL 20 UNIT SUBCUT (21:57)
[2024-04-19] MEDS: traZODone HCL 50 MG TABLET PO (22:00)
[2024-04-19] MEDS: OLANZapine 5 MG TABLET PO (22:00)
[2024-04-19] MEDS: risperiDONE 3 MG TABLET PO (22:01)
[2024-04-19] MEDS: Prazosin HCL 1 MG CAPSULE PO (22:01)
[2024-04-19] MEDS: hydrOXYzine HCL 25 MG TABLET PO (22:01)
[2024-04-19] MEDS: QUEtiapine Fumarate 300 MG TABLET PO (22:01)
[2024-04-20] MEDS: Omeprazole 20 MG CAPSULE.DR PO ×2 (06:31→17:12)
[2024-04-20 07:47] LABS: Glucose, Whole Blood 219 mg/dL (60-115)
[2024-04-20 07:50] VITALS: BP 173/85; PULSE 104; RESP 16; TEMP 36; O2SAT 96
[2024-04-20] MEDS: Fluticasone/Vilanterol 100/25 BLST.W.DEV 1 PUFF INHALE (08:47)
[2024-04-20] MEDS: Insulin Lispro 100 UNIT/ML 3 ML VIAL SUBCUT ×4 (08:48→21:08)
[2024-04-20] MEDS: Atorvastatin Calcium 40 MG TABLET PO (08:49)
[2024-04-20] MEDS: SITagliptin Phosphate 100 MG TABLET PO (08:49)
[2024-04-20] MEDS: QUEtiapine Fumarate 100 MG TABLET PO (08:49)
[2024-04-20] MEDS: metFORMIN HCl 1,000 MG TABLET 1000 MG PO ×2 (08:49→20:56)
[2024-04-20] MEDS: Gabapentin 300 MG CAPSULE PO ×2 (08:49→20:56)
[2024-04-20] MEDS: Aspirin Enteric Coated 81 MG TABLET.DR PO (08:50)
[2024-04-20] MEDS: Docusate Sodium 100 MG CAPSULE PO ×2 (08:50→20:56)
[2024-04-20] MEDS: PARoxetine HCL 40 MG TABLET PO (08:50)
[2024-04-20] MEDS: Nicotine 21 MG PATCH.TD24 TRANSDERMA (08:51)
--- NOTE | 2024-04-20 09:14 | HO.PSYCHPN ---
Subjective Subjective Date of Service: 04/20/24 Reason For Visit: crisis Subjective Notes: 3 Day Interim History: 3 day notice up on 04/22/24. Patient reports feeling good and ready to go today; denies SI/HI/VH/AH. Keeping to self. not attending groups. encouraged to leave room. Patient reports he plans on following up with his outpatient providers. Medication Compliance: Yes Side effects from medications: No Attending Groups: No Mental Status Exam Mental Status Exam Narrative: Pt is alert and oriented; behavior is cooperative and calm; dressed in casual attire; mood is described as good ; eye contact appropriate; Speech is normal rate, volume and not pressured; thought process is organized; Thought content is on discharge; denies SI/HI/VH/AH. Diagnostics Vital Signs (24Hr): Vital Signs - 24 hr 04/19/24 20:00 04/20/24 07:50 Temperature 99.6 F 96.8 F Pulse Rate 96 104 H Respiratory Rate 16 16 Blood Pressure 150/72 H 173/85 H Pulse Oximetry 95 96 Oxygen Delivery Method Room Air Room Air BMI result Body Mass Index 25.4 Labs 04/12/24 00:27 04/19/24 08:26 Labs: Laboratory Results - last 48 hr 04/18/24 04/18/24 04/18/24 11:50 16:46 20:41 Creatinine Estim Creat Clear Calc Estimated GFR POC Glucose 250 H 241 H 235 H 04/19/24 04/19/24 04/19/24 07:55 08:26 11:36 Creatinine 1.14 Estim Creat Clear Calc 66.0 Estimated GFR > 60 POC Glucose 227 H 273 H 04/19/24 04/19/24 04/20/24 16:37 21:26 07:37 Creatinine Estim Creat Clear Calc Estimated GFR POC Glucose 165 H 226 H 219 H Medications Medications Current Medications Acetaminophen (Acetaminophen 325 Mg Tablet) 650 mg PO Q6H PRN PRN Reason: Headache/Pain, Scale 1-10 Last Admin: 04/15/24 20:12 Dose: 650 mg Al Hydroxide/Mg Hydroxide (Magnesium Hydrox/Alum Hydrox 30 Ml Oral.Susp) 30 ml PO Q6H PRN PRN Reason: Heartburn/Nausea Last Admin: 04/17/24 21:22 Dose: 30 ml Albuterol Sulfate (Albuterol Sulfate 90 Mcg 8 Gm Inhaler) 2 puff INHALE QID PRN PRN Reason: wheezing Aspirin (Aspirin Enteric Coated 81 Mg Tablet.Dr) 81 mg PO DAILY [facility] Last Admin: 04/20/24 08:50 Dose: 81 mg Atorvastatin Calcium (Atorvastatin Calcium 40 Mg Tablet) 40 mg PO DAILY [facility] Last Admin: 04/20/24 08:49 Dose: 40 mg Dextrose (Dextrose 50 % 25 Gm/50 Ml Syringe) 25 gm IVPUSH Q15M PRN; Protocol PRN Reason: per Hypoglycemia Standing Ord. Docusate Sodium (Docusate Sodium 100 Mg Capsule) 100 mg PO BID [facility] Last Admin: 04/20/24 08:50 Dose: 100 mg Fluticasone/Vilanterol (Fluticasone/Vilanterol 100/25 Blst.W.Dev) 1 puff INHALE RDAILY [facility] Last Admin: 04/20/24 08:47 Dose: 1 puff Gabapentin (Gabapentin 300 Mg Capsule) 300 mg PO BID [facility] Last Admin: 04/20/24 08:49 Dose: 300 mg Glucose (Glucose Gel 15 Gm Gel..Gram.) 15 gm PO Q15M PRN; Protocol PRN Reason: per Hypoglycemia Standing Ord. Hydroxyzine HCl (Hydroxyzine Hcl 25 Mg Tablet) 25 mg PO Q6H PRN PRN Reason: mild anxiety Last Admin: 04/19/24 22:01 Dose: 25 mg Insulin Glargine (Insulin Glargine,Hum.Rec.Anlog 100 Unit/Ml 10 Ml Vial) 20 unit SUBCUT BEDTIME [facility] Last Admin: 04/19/24 21:57 Dose: 20 unit Insulin Human Lispro (Insulin Lispro 100 Unit/Ml 3 Ml Vial) 0 unit SUBCUT QIDACHS [facility]; Protocol Last Admin: 04/20/24 08:48 Dose: 4 unit Magnesium Hydroxide (Milk Of Magnesia 30 Ml Oral.Susp) 30 ml PO DAILY PRN PRN Reason: Constipation Last Admin: 04/18/24 21:26 Dose: 30 ml Metformin HCl (Metformin Hcl 1,000 Mg Tablet) 1,000 mg PO BID [facility] Last Admin: 04/20/24 08:49 Dose: 1,000 mg Nicotine (Nicotine 21 Mg Patch.Td24) 21 mg TRANSDERMA DAILY [facility] Last Admin: 04/20/24 08:51 Dose: 21 mg Nicotine Polacrilex (Nicotine Polacrilex 2 Mg Gum) 4 mg BUCCAL Q2H PRN PRN Reason: Nicotine Cravings Olanzapine (Olanzapine 5 Mg Tablet) 5 mg PO Q4H PRN PRN Reason: agitation/psychosis Last Admin: 04/19/24 22:00 Dose: 5 mg Omeprazole (Omeprazole 20 Mg Capsule.Dr) 20 mg PO BID@0630,1630 [facility] Last Admin: 04/20/24 06:31 Dose: 20 mg Paroxetine HCl (Paroxetine Hcl 40 Mg Tablet) 40 mg PO DAILY [facility] Last Admin: 04/20/24 08:50 Dose: 40 mg Prazosin HCl (Prazosin Hcl 1 Mg Capsule) 1 mg PO BEDTIME [facility]; Protocol Last Admin: 04/19/24 22:01 Dose: 1 mg Quetiapine Fumarate (Quetiapine Fumarate 300 Mg Tablet) 300 mg PO BEDTIME [facility] Last Admin: 04/19/24 22:01 Dose: 300 mg Quetiapine Fumarate (Quetiapine Fumarate 100 Mg Tablet) 100 mg PO DAILY [facility] Last Admin: 04/20/24 08:49 Dose: 100 mg Risperidone (Risperidone 3 Mg Tablet) 3 mg PO BEDTIME [facility] Last Admin: 04/19/24 22:01 Dose: 3 mg Sitagliptin Phosphate (Sitagliptin Phosphate 100 Mg Tablet) 100 mg PO DAILY [facility] Last Admin: 04/20/24 08:49 Dose: 100 mg Trazodone HCl (Trazodone Hcl 50 Mg Tablet) 50 mg PO BEDTIME MRX1 PRN PRN Reason: Insomnia Last Admin: 04/19/24 22:00 Dose: 50 mg Allergies Allergies Allergy/AdvReac Type Severity Reaction Status Date / Time glipizide [GLIPIZIDE] Allergy Intermediate ITCHY Verified 04/11/24 23:51 oxycodone [From TYLOX] AdvReac Intermediate CHEST PAINS Verified 04/11/24 23:51 Assessment & Plan Assessment & Plan (1) MDD (major depressive disorder), recurrent episode, moderate: Status: Acute Code(s): F33.1 - Major depressive disorder, recurrent, moderate (2) Cocaine use disorder: Status: Acute Code(s): F14.10 - Cocaine abuse, uncomplicated (3) Homeless single person: Status: Acute Code(s): Z59.00 - Homelessness unspecified Plan Patient is a 59 year old male with hx of MDD and cocaine use d/o, who self presented to [facility] ER due to suicidal ideation with a plan to stab himself secondary to multiple life stressors. Plan: CV 15 minute safety checks Continue home medications Encourage groups Referral to outpatient psychiatric providers Discharge planning 04/13: Laying in bed. keeping to self. Pt reports feeling anxious and depressed ; reports auditory hallucinations that are telling him to harm himself. denies SI/HI/VH. He reports sleeping well last night. encouraged to attend groups. 04/14: Pt continues to report feeling depressed ; he states the voices are making him depressed d/t telling him to harm himself. discussed medications; agreed to start risperidal 1mg PO bedtime. denies HI/VH. He reports passive SI with no plan. per nursing, slept 9 hours last night. 04/15: Pt continues to report feeling depressed ; patient stated, I am having suicidal thoughts to stab myself so that I can be with my . denies HI/VH. He does report his voices have decreased. Patient reports nightmares; discussed starting on prazosin, risks/benefits reviewed. Patient agreed to trial. Start: Prazosin 1mg PO bedtime. 04/16: Continue current regimen and plans 04/17: Continue current regimen and plans. Increased nighttime Risperdal to 3 mg 04/19: 3 day notice up on 04/22/24. Patient reports feeling a little better today; pt stated, I feel better with the meds . denies SI/HI/VH/AH. Keeping to self. not attending groups. encouraged to leave room. Reports he has been sleeping well. 04/20: 3 day notice up on 04/22/24. Patient reports feeling good and ready to go today; denies SI/HI/VH/AH. Keeping to self. not attending groups. encouraged to leave room. Patient reports he plans on following up with his outpatient providers. Patient educated on: diagnosis and medication risk/benefits Reason for continued inpatient stay Substantial Risk for: stable for discharge Time Spent With Patient Time: Total time managing care of this patient today _20___ minutes.
[2024-04-20 11:59] LABS: Glucose, Whole Blood 183 mg/dL (60-115)
[2024-04-20 17:04] LABS: Glucose, Whole Blood 190 mg/dL (60-115)
[2024-04-20 20:00] VITALS: BP 132/87; PULSE 86; RESP 16; TEMP 36.9; O2SAT 98
[2024-04-20 20:50] LABS: Glucose, Whole Blood 326 mg/dL (60-115)
[2024-04-20] MEDS: risperiDONE 3 MG TABLET PO (20:56)
[2024-04-20] MEDS: QUEtiapine Fumarate 300 MG TABLET PO (20:56)
[2024-04-20] MEDS: Insulin Glargine,Hum.rec.anlog 100 UNIT/ML 10 ML VIAL 20 UNIT SUBCUT (21:07)
[2024-04-20 21:08] VITALS: BP 132/87
[2024-04-20] MEDS: Prazosin HCL 1 MG CAPSULE PO (21:08)
[2024-04-21] MEDS: Omeprazole 20 MG CAPSULE.DR PO (06:45)
[2024-04-21 07:25] VITALS: BP 131/67; PULSE 76; RESP 14; TEMP 36.4; O2SAT 96
[2024-04-21 07:50] LABS: Glucose, Whole Blood 231 mg/dL (60-115)
[2024-04-21] MEDS: Docusate Sodium 100 MG CAPSULE PO (08:43)
[2024-04-21] MEDS: Atorvastatin Calcium 40 MG TABLET PO (08:43)
[2024-04-21] MEDS: SITagliptin Phosphate 100 MG TABLET PO (08:43)
[2024-04-21] MEDS: Gabapentin 300 MG CAPSULE PO (08:43)
[2024-04-21] MEDS: Aspirin Enteric Coated 81 MG TABLET.DR PO (08:43)
[2024-04-21] MEDS: QUEtiapine Fumarate 100 MG TABLET PO (08:43)
[2024-04-21] MEDS: metFORMIN HCl 1,000 MG TABLET 1000 MG PO (08:43)
[2024-04-21] MEDS: PARoxetine HCL 40 MG TABLET PO (08:43)
[2024-04-21] MEDS: Insulin Lispro 100 UNIT/ML 3 ML VIAL SUBCUT (08:45)
[2024-04-21] MEDS: Fluticasone/Vilanterol 100/25 BLST.W.DEV 1 PUFF INHALE (09:06)
[2024-04-21] MEDS: Nicotine 21 MG PATCH.TD24 TRANSDERMA (09:06)
--- NOTE | 2024-04-21 10:17 | P.DS_ITS ---
DS: Providers Provider Date of Service: 04/21/24 Date of admission: 04/12/24 12:09 Date of discharge: 04/21/24 Primary care physician: Unknown Physician Admitting clinician: Bing Li Attending physician on admission: Collin Gambino Consults: 04/17/24 21:32 Consult to Hospitalist Routine Comment: Consulting Provider[place] [facility] Reason For Exam: elevated blood sugars Attending physician on discharge: Collin Gambino Discharging clinician: Bing Li DS: Diagnosis Discharge Diagnosis (1) MDD (major depressive disorder), recurrent episode, moderate: Status: Acute (2) Cocaine use disorder: Status: Acute (3) Homeless single person: Status: Acute DS: Medications Discharge Medications Home Medications: Home Medications ?Medication ?Instructions ?Recorded ?Confirmed albuterol sulfate 90 mcg/actuation 2 puff inhalation QID PRN wheezing 04/12/24 04/12/24 aerosol inhaler (Ventolin HFA) fluticasone furoate 100 1 inh inhalation DAILY 04/12/24 04/12/24 mcg-vilanterol 25 mcg/dose inhalation powder metformin 1,000 mg tablet 1,000 mg PO BID 04/12/24 04/12/24 omeprazole 20 mg capsule,delayed 20 mg PO BID 04/12/24 04/12/24 release rosuvastatin 10 mg tablet 10 mg PO DAILY 04/12/24 04/12/24 Previous Rx's ?Medication ?Instructions ?Recorded sitagliptin phosphate 100 mg 100 mg PO DAILY 30 days #30 tabs 09/21/23 tablet (Januvia) aspirin 81 mg tablet,delayed 81 mg PO DAILY 30 days #30 tabs 04/20/24 release docusate sodium 100 mg capsule 100 mg PO BID 30 days #60 caps 04/20/24 gabapentin 300 mg capsule 300 mg PO BID 30 days #60 caps 04/20/24 hydroxyzine pamoate 50 mg capsule 50 mg PO BID 30 days #60 caps 04/20/24 insulin glargine 100 unit/mL 20 unit (0.2 mL) subcut BEDTIME 30 04/20/24 subcutaneous solution (Lantus days #6 mL U-100 Insulin) insulin lispro 100 unit/mL See Protocol subcut QIDACHS 30 04/20/24 subcutaneous solution (Admelog days #10 mL U-100 Insulin lispro) paroxetine HCl 40 mg tablet 40 mg PO DAILY 30 days #30 tabs 04/20/24 prazosin 1 mg capsule 1 mg PO BEDTIME 30 days #30 caps 04/20/24 quetiapine 100 mg tablet 100 mg PO DAILY 30 days #30 tabs 04/20/24 quetiapine 300 mg tablet 300 mg PO BEDTIME 30 days #30 tabs 04/20/24 risperidone 3 mg tablet 3 mg PO BEDTIME 30 days #30 tabs 04/20/24 trazodone 50 mg tablet 50 mg PO BEDTIME 30 days #30 tabs 04/20/24 Mental Status Exam Mental Status Exam Narrative: Pt is alert and oriented; behavior is cooperative and calm; dressed in casual attire; mood is described as good ; eye contact appropriate; Speech is normal rate, volume and not pressured; thought process is organized; Thought content is on discharge; denies SI/HI/VH/AH. Data Data Completed and Pending Completed studies during hospitalization [Text1]: 04/14/24 04/14/24 04/14/24 12:04 16:41 20:51 Creatinine Estim Creat Clear Calc Estimated GFR POC Glucose 210 H 201 H 262 H Urine Color Urine Appearance Urine pH Ur Specific [place] Urine Protein Urine Glucose (UA) Urine Ketones Urine Blood Urine Nitrite Ur Leukocyte Esterase Urine RBC Urine WBC Ur Squamous Epith Cells Urine Bacteria Hyaline Casts 04/15/24 04/15/24 04/15/24 07:33 11:13 16:39 Creatinine Estim Creat Clear Calc Estimated GFR POC Glucose 198 H 223 H 255 H Urine Color Urine Appearance Urine pH Ur Specific [place] Urine Protein Urine Glucose (UA) Urine Ketones Urine Blood Urine Nitrite Ur Leukocyte Esterase Urine RBC Urine WBC Ur Squamous Epith Cells Urine Bacteria Hyaline Casts 04/15/24 04/15/24 04/16/24 17:40 20:15 07:46 Creatinine Estim Creat Clear Calc Estimated GFR POC Glucose 214 H 186 H Urine Color Yellow Urine Appearance Clear Urine pH 5.5 Ur Specific [place] 1.020 Urine Protein Negative Urine Glucose (UA) 250 H Urine Ketones Trace Urine Blood Negative Urine Nitrite Negative Ur Leukocyte Esterase Negative Urine RBC 0-2 Urine WBC 0-5 Ur Squamous Epith Cells 0-2 Urine Bacteria None Seen Hyaline Casts 0-2 04/16/24 04/16/24 04/17/24 11:43 16:45 07:56 Creatinine Estim Creat Clear Calc Estimated GFR POC Glucose 266 H 208 H 307 H Urine Color Urine Appearance Urine pH Ur Specific [place] Urine Protein Urine Glucose (UA) Urine Ketones Urine Blood Urine Nitrite Ur Leukocyte Esterase Urine RBC Urine WBC Ur Squamous Epith Cells Urine Bacteria Hyaline Casts 04/17/24 04/18/24 04/18/24 21:09 08:09 11:50 Creatinine Estim Creat Clear Calc Estimated GFR POC Glucose 350 H* 254 H 250 H Urine Color Urine Appearance Urine pH Ur Specific [place] Urine Protein Urine Glucose (UA) Urine Ketones Urine Blood Urine Nitrite Ur Leukocyte Esterase Urine RBC Urine WBC Ur Squamous Epith Cells Urine Bacteria Hyaline Casts 04/18/24 04/18/24 04/19/24 16:46 20:41 07:55 Creatinine Estim Creat Clear Calc Estimated GFR POC Glucose 241 H 235 H 227 H Urine Color Urine Appearance Urine pH Ur Specific [place] Urine Protein Urine Glucose (UA) Urine Ketones Urine Blood Urine Nitrite Ur Leukocyte Esterase Urine RBC Urine WBC Ur Squamous Epith Cells Urine Bacteria Hyaline Casts 04/19/24 04/19/24 04/19/24 08:26 11:36 16:37 Creatinine 1.14 Estim Creat Clear Calc 66.0 Estimated GFR > 60 POC Glucose 273 H 165 H Urine Color Urine Appearance Urine pH Ur Specific [place] Urine Protein Urine Glucose (UA) Urine Ketones Urine Blood Urine Nitrite Ur Leukocyte Esterase Urine RBC Urine WBC Ur Squamous Epith Cells Urine Bacteria Hyaline Casts 04/19/24 04/20/24 04/20/24 21:26 07:37 11:50 Creatinine Estim Creat Clear Calc Estimated GFR POC Glucose 226 H 219 H 183 H Urine Color Urine Appearance Urine pH Ur Specific [place] Urine Protein Urine Glucose (UA) Urine Ketones Urine Blood Urine Nitrite Ur Leukocyte Esterase Urine RBC Urine WBC Ur Squamous Epith Cells Urine Bacteria Hyaline Casts 04/20/24 04/20/24 04/21/24 16:47 20:44 07:39 Creatinine Estim Creat Clear Calc Estimated GFR POC Glucose 190 H 326 H 231 H Urine Color Urine Appearance Urine pH Ur Specific [place] Urine Protein Urine Glucose (UA) Urine Ketones Urine Blood Urine Nitrite Ur Leukocyte Esterase Urine RBC Urine WBC Ur Squamous Epith Cells Urine Bacteria Hyaline Casts DS: Summary Hospital Course Hospital Course: Patient is a 59 year old male with hx of MDD and cocaine use d/o, who self [place] [facility] [place] due to suicidal ideation with a plan to stab himself secondary to multiple life stressors. Per crisis report, patient reports his girlfriend was brutally murdered and beaten to in [place] 2 months ago and he has been struggling with grief and depression. denies HI AH/VH. Patient reports he has been staying at a hotel in [place]. Reports poor sleep. Patient became verbally argumentative when challenged about referrals made to outpatient providers that he never attends. Utox positive for cocaine. During admission assessment, patient presents alert and oriented x3. Calm and cooperative. Patient reports feeling depressed ; patient stated, I'm going through bad times. I was going through a separation with my and dealing with deaths in my family. My family told me that my was killed in [place] by her boyfriend 2 months ago . Patient reports suicidal ideation with plan to stab himself and auditory hallucinations of voices talking about his past . denies HI/VH. He reports he would like referrals to outpatient psychiatric providers. States he does not want to go to a substance abuse program. Reports he has been medication compliant and obtains refills through his PCP. Plan: CV 15 minute safety checks Continue home medications Encourage groups Referral to outpatient psychiatric providers Discharge planning Laying in bed. keeping to self. Pt reports feeling anxious and depressed ; repo rts auditory hallucinations that are telling him to harm himself. denies SI/HI/VH. He reports sleeping well last night. encouraged to attend groups. Pt continues to report feeling depressed ; he states the voices are making him depressed d/t telling him to harm himself. discussed medications; agreed to start risperidal 1mg PO bedtime. denies HI/VH. He reports passive SI with no plan. per nursing, slept 9 hours last night. Pt continues to report feeling depressed ; patient stated, I am having suicidal thoughts to stab myself so that I can be with my . denies HI/VH. He does report his voices have decreased. Patient reports nightmares; discussed starting on prazosin, risks/benefits reviewed. Patient agreed to trial. Start: Prazosin 1mg PO bedtime. Continue current regimen and plans. Increased nighttime Risperdal to 3 mg 3 day notice up on 04/22/24. Patient reports feeling a little better today; pt stated, I feel better with the meds . denies SI/HI/VH/AH. Keeping to self. not attending groups. encouraged to leave room. Reports he has been sleeping well. Patient reports feeling good and ready to go today; denies SI/HI/VH/AH. Keeping to self. not attending groups. encouraged to leave room. Patient reports he plans on following up with his outpatient providers. Status at Discharge Cognitive/behavioral status at discharge: Patient has insight and demonstrates good judgment in terms of wanting to pursue treatment. Patient has a safety plan that includes presenting to the closest ER or calling 911 if feeling unsafe. Functional status at discharge: independent ambulation Overall status at discharge: patient is back to baseline Time Spent with Patient Time attestation: Total time managing care of this patient today __20__ minutes. Time spent: Less than 30 minutes Discharge Plan Discharge Anticipated Discharge Date/Time: 04/21/24 11:00 Patient Disposition: Home, Self-Care Discharge Diagnosis: MDD, Cocaine use d/o Referrals: Fausto Brody (Therapy) [Other] - 04/27/24 2:00 pm (IN OFFICE APPOINTMENT -Please arrive 15 minutes early to your appointment in order to fill out necessary paperwork. ) Hannah Lora (Psychiatry) [Other] - 05/17/24 3:30 pm (TELEHEALTH APPOINTMENT -Psychiatric Evaluation ) Hannah Lora (Psychiatry) [Other] - 06/16/24 4:20 pm (TELEHEALTH APPOINTMENT -Medication Management ) [facility] [Provider Group] - 1 Week (04-20-24 [facility] was added to patients chart. Please call [phone] to schedule a follow up appt within 7-10 days of discharge.) Discharge Medications: New docusate sodium 100 mg Capsule 100 mg PO BID 30 Days Qty: 60 0RF quetiapine 300 mg Tablet 300 mg PO BEDTIME 30 Days Qty: 30 0RF risperidone 3 mg Tablet 3 mg PO BEDTIME 30 Days Qty: 30 0RF quetiapine 100 mg Tablet 100 mg PO DAILY 30 Days Qty: 30 0RF aspirin 81 mg Tablet,Delayed Release (Dr/Ec) 81 mg PO DAILY 30 Days Qty: 30 0RF prazosin 1 mg Capsule 1 mg PO BEDTIME 30 Days Qty: 30 0RF Protocol: Hold for SBP< HOLD for SBP < : 90 insulin glargine [Lantus U-100 Insulin] 100 unit/mL Solution 20 unit subcut BEDTIME 30 Days Qty: 6 0RF insulin lispro [Admelog U-100 Insulin lispro] 100 unit/mL Solution See Protocol subcut QIDACHS 30 Days Qty: 10 0RF Protocol: Insulin Correction Scale Less than or equal to 110 ---- Give (units): 0 111 to 150 Give (units): 0 151 to 200 Give (units): 2 201 to 250 Give (units): 4 251 to 300 Give (units): 6 301 to 350 Give (units): 8 Greater than 350 Give (units): 10 Call MD if Blood Glucose > : 350 Continued Januvia 100 mg tablet 100 mg PO DAILY 30 Days Qty: 30 0RF albuterol sulfate [Ventolin HFA] 90 mcg/actuation HFA aerosol inhaler 2 puff INHALATION QID PRN (Reason: wheezing) metformin 1,000 mg tablet 1,000 mg PO BID omeprazole 20 mg capsule,delayed release(DR/EC) 20 mg PO BID rosuvastatin 10 mg tablet 10 mg PO DAILY fluticasone furoate-vilanterol 100-25 mcg/dose blister with device 1 inh INHALATION DAILY trazodone 50 mg tablet 50 mg PO BEDTIME 30 Days Qty: 30 0RF gabapentin 300 mg capsule 300 mg PO BID 30 Days Qty: 60 0RF paroxetine HCl 40 mg tablet 40 mg PO DAILY 30 Days Qty: 30 0RF Changed hydroxyzine pamoate 50 mg capsule 50 mg PO BID 30 Days Qty: 60 0RF Discontinued insulin glargine [Lantus Solostar U-100 Insulin] 100 unit/mL (3 mL) insulin pen 15 unit subcut BEDTIME cyclobenzaprine 10 mg tablet 10 mg PO BID PRN (Reason: muscle spasm) quetiapine 100 mg tablet 100 mg PO DAILY quetiapine 400 mg tablet 400 mg PO BEDTIME Discharge Orders: Discharge Order (Routine); Ordered 04/21/24 Ordered By: Bing Li Diet: Regular diet Activity on Discharge: As tolerated Stand Alone Forms: Patient Portal Discharge page, Community Support Print Language: Kazakh Care Plan Goals: Maintain mood and safe behaviors Take medications as prescribed Continue to pursue sobriety Practice coping skills Continue with outpatient providers and reach out to them as needed Health Concerns: Mood stability and behaviors Sobriety Plan of Treatment: Follow up with your PCP, psychiatric provider and other outpatient providers regarding above concerns Take medications as prescribed Assessment: Patient has insight and demonstrates good judgment in terms of wanting to pursue treatment. Patient has a safety plan that includes presenting to the closest ER or calling 911 if feeling unsafe. Discharge Date/Time: 04/21/24 11:08
--- NOTE | 2024-04-21 11:42 | PC.NURSE ---
Patient easily engaged. Reports high anxiety related to discharge. Mild depression rating it a /10. Denies SI/HI plan or intent at this time. Denies A/V hallucinations, no overt psychosis or expressed delusions. Reports he plans to take bus to apt with gf. Discharge paperwork reviewed with patient, reports understanding. Appointments reviewed with patient reports understanding. Medications reviewed with patient reports understanding. Narcan given to take home. Home meds returned to patient. All belongings taken with patient. Crisis numbers provided to patient.
== END 2024-04-21 11:08 | disposition home or self-care (01) | DRG 885 ==
LOC: HO.ED 04-12 07:12 → HO.PADLT16 04-12 12:24
PROVIDERS: Admitting Provider Registered Nurse; Emergency Provider Internal Medicine; Responsible Provider Registered Nurse; Visit Provider Psychiatry & Neurology Psychiatry
DX: F33.1 Major depressive disorder, recurrent, moderate (principal); R45.851 Suicidal ideations; E11.9 Type 2 diabetes mellitus without complications; F14.10 Cocaine abuse, uncomplicated; F17.210 Nicotine dependence, cigarettes, uncomplicated; Z59.02 Unsheltered homelessness; Z71.6 Tobacco abuse counseling; Z79.84 Long term (current) use of oral hypoglycemic drugs; Z79.899 Other long term (current) drug therapy
CPT/HCPCS: 36415; 80053; 80061; 80307; 81001; 82565; 82947; 85025; 93005; 99285; S9485

== ENCOUNTER → 2024-04-12 09:43 | Outpatient (BNV) | payer OTHER, SELFPAY | PROVIDERS: Admitting Provider Registered Nurse; Emergency Provider Internal Medicine; Responsible Provider Registered Nurse; Visit Provider Internal Medicine Cardiovascular Disease | DX: Z01.818 Encounter for other preprocedural examination (principal) | CPT/HCPCS: 93010 ==

== ENCOUNTER → 2024-04-12 12:09 | Outpatient (BNV) | payer OTHER, SELFPAY | PROVIDERS: Admitting Provider Registered Nurse; Emergency Provider Internal Medicine; Responsible Provider Registered Nurse; Visit Provider Registered Nurse | DX: F33.1 Major depressive disorder, recurrent, moderate (principal); F14.10 Cocaine abuse, uncomplicated; Z59.00 Homelessness unspecified | CPT/HCPCS: 90792 ==

== ENCOUNTER 2024-06-11 02:50 | Inpatient (IN) | payer OTHER, SELFPAY ==
--- NOTE | 2024-06-11 | ECG_ITS ---
Test Reason : cp Blood Pressure : */* mmHG Vent. Rate : 95 BPM Atrial Rate : 95 BPM P-R Int : 132 ms QRS Dur : 80 ms QT Int : 344 ms P-R-T Axes : 65 56 46 degrees QTcB Int : 432 ms Normal sinus rhythm Normal ECG When compared with ECG of 12-Apr-2024 11:51, No significant change was found Referred By: Generic ED Physician Electronically Signed By: Dipesh Haq
--- NOTE | ~2024-06-11 | XR_ITS ---
CLINICAL HISTORY: cp 1 view chest x-ray. Comparison: CR/SR - XR CHEST 1V - 02/14/24 02:42 EST Findings: The lungs appear clear. There is no consolidation, effusion, or pneumothorax. Cardiomediastinal silhouette is within normal limits. IMPRESSION: No acute cardiopulmonary abnormality. This document has been electronically signed by: Sushil Garcia MD on 06/11/2024 04:32:24
[2024-06-11 02:54] VITALS: BP 167/81; PULSE 90; O2SAT 99
[2024-06-11 03:01] VITALS: BP 168/83; PULSE 97; RESP 18; TEMP 36.8; O2SAT 98; BMI 26.6
--- NOTE | 2024-06-11 03:42 | ED_ITS ---
HPI - Psych General Chief Complaint: Psychiatric Symptoms Stated Complaint: CHEST PAIN Time Seen by Provider: 06/11/24 03:38 Source: patient Mode of arrival: ambulatory Limitations: no limitations History of Present Illness ED Provider: HPI Narrative: Patient's history of depression chronic schizophrenia does not have his medication for last 1 week feels more depressed and suicidal was walking from [place] to [place] noticed sharp mid chest pain at this time there is no chest pain patient has been from his for last 4 months increased stress does have a place to live does use cocaine sometimes last use was 2 days ago Related Data Home Medications ?Medication ?Instructions ?Recorded ?Confirmed albuterol sulfate 90 mcg/actuation 2 puff inhalation QID PRN wheezing 04/12/24 06/11/24 aerosol inhaler (Ventolin HFA) fluticasone furoate 100 1 inh inhalation DAILY 04/12/24 06/11/24 mcg-vilanterol 25 mcg/dose inhalation powder metformin 1,000 mg tablet 1,000 mg PO BID 04/12/24 06/11/24 omeprazole 20 mg capsule,delayed 20 mg PO DAILY@0630 04/12/24 06/11/24 release atorvastatin 20 mg tablet 20 mg PO BEDTIME 06/11/24 06/11/24 melatonin 10 mg tablet 10 mg PO BEDTIME 06/11/24 06/11/24 insulin glargine 100 unit/mL 15 unit subcut BEDTIME 06/12/24 06/12/24 subcutaneous solution (Lantus U-100 Insulin) Previous Rx's ?Medication ?Instructions ?Recorded sitagliptin phosphate 100 mg 100 mg PO DAILY 30 days #30 tabs 09/21/23 tablet (Januvia) gabapentin 300 mg capsule 300 mg PO BID 30 days #60 caps 04/20/24 hydroxyzine pamoate 50 mg capsule 50 mg PO BID 30 days #60 caps 04/20/24 paroxetine HCl 40 mg tablet 40 mg PO DAILY 30 days #30 tabs 04/20/24 quetiapine 100 mg tablet 100 mg PO DAILY 30 days #30 tabs 04/20/24 quetiapine 300 mg tablet 300 mg PO BEDTIME 30 days #30 tabs 04/20/24 trazodone 50 mg tablet 50 mg PO BEDTIME 30 days #30 tabs 04/20/24 Allergies Allergy/AdvReac Type Severity Reaction Status Date / Time glipizide [GLIPIZIDE] Allergy Intermediate ITCHY Verified 06/11/24 03:02 oxycodone [From TYLOX] AdvReac Intermediate CHEST PAINS Verified 06/11/24 03:02 Review of Systems 2 Review of Systems: Yes all other systems are reviewed and are negative REPLACED BY [facility] Past Medical History Medical History Depression MDD (major depressive disorder), recurrent episode, moderate Cocaine use disorder Substance-induced psychotic disorder Anxiety Diabetes Social History Social History Household Members: None Housing: Homeless Do you presently have visiting nurse or other home services: No Unable to assess alcohol history related to: Refusing to respond Alcohol intake: current Alcohol intake frequency: a few times a month Alcohol type: beer Patient Tobacco Use Status: Current everyday Tobacco user Tobacco use type: Cigarette Cigarette Packs Per Day: 0.5 Cigarettes Per Day: 10.0 Years Smoked: 40 Smoked in Last 30 Days: No e-Cigarette/Vaping Use: Former Use Second Hand Smoke Exposure: No Use of substances other than those prescribed or required for medical reasons: Yes Substance Use Type: Crack/Cocaine Advance Directives: Yes Advance Directives on File: Yes Advance Directives Date on File: 10/24/21 Do you have a plan to hurt others: No Plan service: No Sexual orientation: Straight/Heterosexual Physical Exam 2 Vital Signs: Vital Signs: Last Vital Signs Temp 97.6 F 06/13/24 05:34 Pulse 105 H 06/13/24 05:34 Resp 20 06/13/24 05:34 BP 122/74 06/13/24 05:34 Pulse Ox 97 06/13/24 05:34 O2 Del Method Room Air 06/13/24 05:34 BMI result Body Mass Index 26.6 Appearance: Alert. Oriented X3. No acute distress. Eyes: PERRLA, No Nystagmus ENT: Pharynx normal. Oral Mucosa moist Neck: Normal inspection. Neck supple. CVS: Normal heart rate and rhythm. Pulses normal. Respiratory: No respiratory distress. Equal air entry bilateral, no wheezing/rales/rhonchi Abdomen: Soft and nontender. Bowel sounds are present, no mass palpable, no CVA tenderness Skin: Skin warm and dry. Normal skin color. Normal skin turgor. Extremities: No lower extremity edema. No calf tenderness psych: Feel depressed and suicidal with no plan denied any visual hallucinations does have some auditory hallucination Neuro: Oriented X 3. No motor deficit. No sensory deficit.No cerebellar signs , cranial nerves II-XII intact Course Course Course Narrative: received sign out at 730am from Dr. Chapman patient has hx of SI statements but last admission was in Apr 2024 when he was not taking his medications. With my supervision Katie LA saw patient and he is recanting SI sttates he has no plan his same complaint as last time though he states he broke up with his recently - his last admission states she was killed and his plan was to kill himself to be with her. Story is inconsistent. Will continue to keep in physician observation pending CARE team. Physician observation started at 3am on 06/11/24 MICHAEL 832am 06/11/24 inpatient bed search S12 per CARE team 06/11/24 1107am Reevaluation(s) Reevaluation #1: Time: 07:25 Date: 06/12/24 Provider: Srikanth Dao MD Patient in physician observation for psychiatric evaluation.? No acute events reported overnight. No current complaints. VS stable.? Patient is in bed search status. Blood sugars has been running high but stably so. We have now determined his usual evening dose of Lantus and will begin this later today. Will continue to monitor. Reevaluation #2: Time: 12:24 Date: 06/13/24 Provider: Rita Marion DO Physician observation ended at 1224pm.Patient to be admitted as inpatient to psychiatry\ Medications Administered Generic Name Dose Route Start Last Admin Trade Name Freq PRN Reason Stop Dose Admin Atorvastatin Calcium 20 mg 06/12/24 21:00 06/12/24 21:10 Atorvastatin Calcium 20 Mg Tablet PO 20 mg BEDTIME NILE Administration Fluticasone/Vilanterol 1 puff 06/12/24 09:00 06/13/24 09:26 Fluticasone/Vilanterol 100/25 Blst.W.Dev INHALE 1 puff DAILY NILE Administration Gabapentin 300 mg 06/12/24 09:00 06/13/24 09:26 Gabapentin 300 Mg Capsule PO 300 mg BID NILE Administration Hydroxyzine HCl 50 mg 06/12/24 09:00 06/13/24 09:26 Hydroxyzine Hcl 50 Mg Tablet PO 50 mg BID NILE Administration Insulin Glargine 15 unit 06/12/24 21:00 06/12/24 22:06 Insulin Glargine,Hum.Rec.Anlog 100 Unit/Ml 10 Ml Vial SUBCUT 15 unit BEDTIME NILE Administration Melatonin 9 mg 06/12/24 21:00 06/12/24 21:09 Melatonin 3 Mg Tablet PO 9 mg BEDTIME NILE Administration Metformin HCl 1,000 mg 06/12/24 09:00 06/13/24 09:26 Metformin Hcl 1,000 Mg Tablet PO 1,000 mg BID NILE Administration Omeprazole 20 mg 06/13/24 06:30 06/13/24 05:32 Omeprazole 20 Mg Capsule.Dr PO 20 mg DAILY@0630 NILE Administration Paroxetine HCl 40 mg 06/12/24 09:00 06/13/24 09:26 Paroxetine Hcl 40 Mg Tablet PO 40 mg DAILY NILE Administration Quetiapine Fumarate 100 mg 06/12/24 09:00 06/13/24 09:26 Quetiapine Fumarate 100 Mg Tablet PO 100 mg DAILY NILE Administration Quetiapine Fumarate 300 mg 06/12/24 21:00 06/12/24 21:10 Quetiapine Fumarate 300 Mg Tablet PO 300 mg BEDTIME NILE Administration Sitagliptin Phosphate 100 mg 06/12/24 09:00 06/13/24 09:26 Sitagliptin Phosphate 100 Mg Tablet PO 100 mg DAILY NILE Administration Trazodone HCl 50 mg 06/12/24 21:00 06/12/24 21:10 Trazodone Hcl 50 Mg Tablet PO 50 mg BEDTIME NILE Administration Discontinued Medications Generic Name Dose Route Start Last Admin Trade Name Joselitoq PRN Reason Stop Dose Admin Insulin Human Lispro 0 unit 06/11/24 16:30 06/12/24 13:05 Insulin Lispro 100 Unit/Ml 3 Ml Vial SUBCUT 06/12/24 13:07 Not Given [facility] Protocol Lorazepam 1 mg 06/11/24 09:27 06/11/24 09:36 Lorazepam 1 Mg Tablet PO 06/11/24 09:28 1 mg ONCE ONE Administration Lorazepam 2 mg 06/11/24 11:12 06/11/24 11:18 Lorazepam 1 Mg Tablet PO 06/11/24 11:13 2 mg ONCE ONE Administration Lorazepam 2 mg 06/12/24 19:44 06/12/24 19:53 Lorazepam 1 Mg Tablet PO 06/12/24 19:45 2 mg ONCE STA Administration Olanzapine 5 mg 06/11/24 09:41 06/11/24 09:47 Olanzapine 5 Mg Tablet PO 06/11/24 09:42 5 mg ONCE ONE Administration Olanzapine 5 mg 06/11/24 11:12 06/11/24 11:18 Olanzapine 5 Mg Tablet PO 06/11/24 11:13 5 mg ONCE ONE Administration Medical Decision Making Medical Decision Making [facility] Narrative: Patient with depression and schizophrenia with suicidal ideation fell chest pain while walking for 2 hours EKG without any ischemic changes will check cardiac enzymes clinically patient with atypical chest pain Cardiac enzymes negative without any delta change EKG without any ischemic changes medically cleared for care team evaluation for depression and suicidal ideation Lab Data [facility] Lab Attestation statement: I reviewed the patient's lab results. 06/11/24 03:49 06/11/24 03:49 Labs: Lab Results 06/11/24 06/11/24 06/11/24 Range/Units 03:49 05:26 06:02 WBC 13.6 H (4.8-10.8) X10*3/uL RBC 5.42 (4.60-5.80) X10*6/uL Hgb 15.4 (14.0-18.0) g/dl Hct 44.9 (42.0-52.0) % MCV 82.8 (80.0-98.0) fL MCH 28.4 (27.0-33.0) pg MCHC 34.3 (31.0-36.0) g/dl RDW 13.2 (11.0-16.0) % Plt Count 278 (160-400) X10*3/uL MPV 9.7 (9.4-12.4) fL Immature Gran % (Auto) 0.4 (0.0-0.4) % Neut % (Auto) 83.7 H (45-73) % Lymph % (Auto) 8.2 L (20-40) % [place] % (Auto) 7.4 (2-11) % Eos % (Auto) 0.1 (0-4) % Baso % (Auto) 0.2 (0-2) % Lymph # (Auto) 1.1 L (1.2-4.9) X10*3/uL [place] # (Auto) 1.0 (0.1-1.2) X10*3/uL Eos # (Auto) 0.0 (0.0-0.4) X10*3/uL Baso # (Auto) 0.0 (0.0-0.2) X10*3/uL Abs Immat Gran (auto) 0.05 H (0.00-0.03) X10*3/uL Absolute Neuts (auto) 11.4 H (2.0-8.3) x10*3/uL Absolute Nucleated RBC 0.000 (0.0-0.012) X10*3/uL Nucleated RBC % (auto) 0.0 (0.0-0.2) /100WBC Sodium 135 (135-145) mmol/L Potassium 5.1 (3.3-5.1) mmol/L Chloride 98 (96-108) mmol/L Carbon Dioxide 25 (22-29) mmol/L Anion Gap 17 (12-20) BUN 34 H (9-16) mg/dL Creatinine 1.38 (0.5-1.4) mg/dL Estim Creat Clear Calc 54.5 Estimated GFR 53 POC Glucose (60-115) mg/dL Random Glucose 257 H (60-115) mg/dL Calcium 9.9 (8.4-10.2) mg/dL Total Bilirubin 0.7 (0.0-1.0) mg/dL AST 43 H (5-37) U/L ALT 45 H (0-40) U/L Alkaline Phosphatase 90 (39-117) U/L Troponin I High Sens 5.0 D 4.9 (<3.5-35.0) ng/L Total Protein 8.9 H (6.5-8.0) g/dL Albumin 4.7 (3.5-5.0) g/dL Urine Color Dark Yellow Urine Appearance Clear Urine pH 5.5 (5.0-9.0) Ur Specific [place] >= 1.030 H (1.005-1.025) Urine Protein 100 (2+) H (Neg-Trace) mg/dL Urine Glucose (UA) 500 H (Negative) mg/dL Urine Ketones 15 (Negative) mg/dL Urine Blood Negative (Negative) Urine Nitrite Negative (Negative) Ur Leukocyte Esterase Negative (Negative) Urine RBC 0-2 (0-2) /HPF Urine WBC 0-5 (0-5) /HPF Ur Squamous Epith Cells 0-2 (0-2) /HPF Urine Bacteria None Seen (None Seen) Hyaline Casts 6-10 (0-2) /LPF Urine Opiates Screen Not Detected (Not Detect) Ur Buprenorphine Scrn Not Detected (Not Detect) ng/mL Ur Oxycodone Screen Not Detected (Not Detect) ng/mL Urine Methadone Screen Not Detected (Not Detect) ng/mL Urine Fentanyl Screen Not Detected (Not Detect) Ur Barbiturates Screen Not Detected (Not Detect) Ur Phencyclidine Scrn Not Detected (Not Detect) Ur Amphetamines Screen Not Detected (Not Detect) U Benzodiazepines Scrn Not Detected (Not Detect) Urine Cocaine Screen POSITIVE H (Not Detect) U Marijuana (THC) Screen Not Detected (Not Detect) Ethyl Alcohol < 10 mg/dL Influenza Type A (PCR) NEGATIVE (Negative) Influenza Type B (PCR) NEGATIVE (Negative) RSV RNA Qual (PCR) NEGATIVE (Negative) SARS-CoV-2 RNA (RT-PCR) NEGATIVE (Negative) 06/11/24 06/11/24 06/11/24 Range/Units 12:59 18:25 21:11 WBC (4.8-10.8) X10*3/uL RBC (4.60-5.80) X10*6/uL Hgb (14.0-18.0) g/dl Hct (42.0-52.0) % MCV (80.0-98.0) fL MCH (27.0-33.0) pg MCHC (31.0-36.0) g/dl RDW (11.0-16.0) % Plt Count (160-400) X10*3/uL MPV (9.4-12.4) fL Immature Gran % (Auto) (0.0-0.4) % Neut % (Auto) (45-73) % Lymph % (Auto) (20-40) % [place] % (Auto) (2-11) % Eos % (Auto) (0-4) % Baso % (Auto) (0-2) % Lymph # (Auto) (1.2-4.9) X10*3/uL [place] # (Auto) (0.1-1.2) X10*3/uL Eos # (Auto) (0.0-0.4) X10*3/uL Baso # (Auto) (0.0-0.2) X10*3/uL Abs Immat Gran (auto) (0.00-0.03) X10*3/uL Absolute Neuts (auto) (2.0-8.3) x10*3/uL Absolute Nucleated RBC (0.0-0.012) X10*3/uL Nucleated RBC % (auto) (0.0-0.2) /100WBC Sodium (135-145) mmol/L Potassium (3.3-5.1) mmol/L Chloride (96-108) mmol/L Carbon Dioxide (22-29) mmol/L Anion Gap (12-20) BUN (9-16) mg/dL Creatinine (0.5-1.4) mg/dL Estim Creat Clear Calc Estimated GFR POC Glucose 303 H 345 H 304 H (60-115) mg/dL Random Glucose (60-115) mg/dL Calcium (8.4-10.2) mg/dL Total Bilirubin (0.0-1.0) mg/dL AST (5-37) U/L ALT (0-40) U/L Alkaline Phosphatase (39-117) U/L Troponin I High Sens (<3.5-35.0) ng/L Total Protein (6.5-8.0) g/dL Albumin (3.5-5.0) g/dL Urine Color Urine Appearance Urine pH (5.0-9.0) Ur Specific [place] (1.005-1.025) Urine Protein (Neg-Trace) mg/dL Urine Glucose (UA) (Negative) mg/dL Urine Ketones (Negative) mg/dL Urine Blood (Negative) Urine Nitrite (Negative) Ur Leukocyte Esterase (Negative) Urine RBC (0-2) /HPF Urine WBC (0-5) /HPF Ur Squamous Epith Cells (0-2) /HPF Urine Bacteria (None Seen) Hyaline Casts (0-2) /LPF Urine Opiates Screen (Not Detect) Ur Buprenorphine Scrn (Not Detect) ng/mL Ur Oxycodone Screen (Not Detect) ng/mL Urine Methadone Screen (Not Detect) ng/mL Urine Fentanyl Screen (Not Detect) Ur Barbiturates Screen (Not Detect) Ur Phencyclidine Scrn (Not Detect) Ur Amphetamines Screen (Not Detect) U Benzodiazepines Scrn (Not Detect) Urine Cocaine Screen (Not Detect) U Marijuana (THC) Screen (Not Detect) Ethyl Alcohol mg/dL Influenza Type A (PCR) (Negative) Influenza Type B (PCR) (Negative) RSV RNA Qual (PCR) (Negative) SARS-CoV-2 RNA (RT-PCR) (Negative) 06/12/24 06/12/24 06/12/24 Range/Units 07:21 13:04 18:20 WBC (4.8-10.8) X10*3/uL RBC (4.60-5.80) X10*6/uL Hgb (14.0-18.0) g/dl Hct (42.0-52.0) % MCV (80.0-98.0) fL MCH (27.0-33.0) pg MCHC (31.0-36.0) g/dl RDW (11.0-16.0) % Plt Count (160-400) X10*3/uL MPV (9.4-12.4) fL Immature Gran % (Auto) (0.0-0.4) % Neut % (Auto) (45-73) % Lymph % (Auto) (20-40) % [place] % (Auto) (2-11) % Eos % (Auto) (0-4) % Baso % (Auto) (0-2) % Lymph # (Auto) (1.2-4.9) X10*3/uL [place] # (Auto) (0.1-1.2) X10*3/uL Eos # (Auto) (0.0-0.4) X10*3/uL Baso # (Auto) (0.0-0.2) X10*3/uL Abs Immat Gran (auto) (0.00-0.03) X10*3/uL Absolute Neuts (auto) (2.0-8.3) x10*3/uL Absolute Nucleated RBC (0.0-0.012) X10*3/uL Nucleated RBC % (auto) (0.0-0.2) /100WBC Sodium (135-145) mmol/L Potassium (3.3-5.1) mmol/L Chloride (96-108) mmol/L Carbon Dioxide (22-29) mmol/L Anion Gap (12-20) BUN (9-16) mg/dL Creatinine (0.5-1.4) mg/dL Estim Creat Clear Calc Estimated GFR POC Glucose 288 H 145 H 212 H (60-115) mg/dL Random Glucose (60-115) mg/dL Calcium (8.4-10.2) mg/dL Total Bilirubin (0.0-1.0) mg/dL AST (5-37) U/L ALT (0-40) U/L Alkaline Phosphatase (39-117) U/L Troponin I High Sens (<3.5-35.0) ng/L Total Protein (6.5-8.0) g/dL Albumin (3.5-5.0) g/dL Urine Color Urine Appearance Urine pH (5.0-9.0) Ur Specific [place] (1.005-1.025) Urine Protein (Neg-Trace) mg/dL Urine Glucose (UA) (Negative) mg/dL Urine Ketones (Negative) mg/dL Urine Blood (Negative) Urine Nitrite (Negative) Ur Leukocyte Esterase (Negative) Urine RBC (0-2) /HPF Urine WBC (0-5) /HPF Ur Squamous Epith Cells (0-2) /HPF Urine Bacteria (None Seen) Hyaline Casts (0-2) /LPF Urine Opiates Screen (Not Detect) Ur Buprenorphine Scrn (Not Detect) ng/mL Ur Oxycodone Screen (Not Detect) ng/mL Urine Methadone Screen (Not Detect) ng/mL Urine Fentanyl Screen (Not Detect) Ur Barbiturates Screen (Not Detect) Ur Phencyclidine Scrn (Not Detect) Ur Amphetamines Screen (Not Detect) U Benzodiazepines Scrn (Not Detect) Urine Cocaine Screen (Not Detect) U Marijuana (THC) Screen (Not Detect) Ethyl Alcohol mg/dL Influenza Type A (PCR) (Negative) Influenza Type B (PCR) (Negative) RSV RNA Qual (PCR) (Negative) SARS-CoV-2 RNA (RT-PCR) (Negative) 06/12/24 06/13/24 06/13/24 Range/Units 21:47 05:33 10:12 WBC (4.8-10.8) X10*3/uL RBC (4.60-5.80) X10*6/uL Hgb (14.0-18.0) g/dl Hct (42.0-52.0) % MCV (80.0-98.0) fL MCH (27.0-33.0) pg MCHC (31.0-36.0) g/dl RDW (11.0-16.0) % Plt Count (160-400) X10*3/uL MPV (9.4-12.4) fL Immature Gran % (Auto) (0.0-0.4) % Neut % (Auto) (45-73) % Lymph % (Auto) (20-40) % [place] % (Auto) (2-11) % Eos % (Auto) (0-4) % Baso % (Auto) (0-2) % Lymph # (Auto) (1.2-4.9) X10*3/uL [place] # (Auto) (0.1-1.2) X10*3/uL Eos # (Auto) (0.0-0.4) X10*3/uL Baso # (Auto) (0.0-0.2) X10*3/uL Abs Immat Gran (auto) (0.00-0.03) X10*3/uL Absolute Neuts (auto) (2.0-8.3) x10*3/uL Absolute Nucleated RBC (0.0-0.012) X10*3/uL Nucleated RBC % (auto) (0.0-0.2) /100WBC Sodium (135-145) mmol/L Potassium (3.3-5.1) mmol/L Chloride (96-108) mmol/L Carbon Dioxide (22-29) mmol/L Anion Gap (12-20) BUN (9-16) mg/dL Creatinine (0.5-1.4) mg/dL Estim Creat Clear Calc Estimated GFR POC Glucose 239 H 245 H 268 H (60-115) mg/dL Random Glucose (60-115) mg/dL Calcium (8.4-10.2) mg/dL Total Bilirubin (0.0-1.0) mg/dL AST (5-37) U/L ALT (0-40) U/L Alkaline Phosphatase (39-117) U/L Troponin I High Sens (<3.5-35.0) ng/L Total Protein (6.5-8.0) g/dL Albumin (3.5-5.0) g/dL Urine Color Urine Appearance Urine pH (5.0-9.0) Ur Specific [place] (1.005-1.025) Urine Protein (Neg-Trace) mg/dL Urine Glucose (UA) (Negative) mg/dL Urine Ketones (Negative) mg/dL Urine Blood (Negative) Urine Nitrite (Negative) Ur Leukocyte Esterase (Negative) Urine RBC (0-2) /HPF Urine WBC (0-5) /HPF Ur Squamous Epith Cells (0-2) /HPF Urine Bacteria (None Seen) Hyaline Casts (0-2) /LPF Urine Opiates Screen (Not Detect) Ur Buprenorphine Scrn (Not Detect) ng/mL Ur Oxycodone Screen (Not Detect) ng/mL Urine Methadone Screen (Not Detect) ng/mL Urine Fentanyl Screen (Not Detect) Ur Barbiturates Screen (Not Detect) Ur Phencyclidine Scrn (Not Detect) Ur Amphetamines Screen (Not Detect) U Benzodiazepines Scrn (Not Detect) Urine Cocaine Screen (Not Detect) U Marijuana (THC) Screen (Not Detect) Ethyl Alcohol mg/dL Influenza Type A (PCR) (Negative) Influenza Type B (PCR) (Negative) RSV RNA Qual (PCR) (Negative) SARS-CoV-2 RNA (RT-PCR) (Negative) Independent Interpretation I performed an independent interpretation of an: EKG Interpretation: Normal sinus rhythm heart rate 95 beats per minute normal intervals normal axis no acute ST-T changes no acute ischemia Discharge Plan Discharge Clinical Impression: MDD (major depressive disorder), recurrent episode, moderate, Cocaine use disorder Patient Disposition: Admitted As Inpatient Interventions: [place]-Suicide Risk Severity Scale Last Done: 06/12/24 12:05
[2024-06-11 03:53] LABS: MANUAL DIFF FLAG NO
[2024-06-11 03:54] LABS: Basophils Percent Auto 0.2 % (0-2); Eosinophils Percent Auto 0.1 % (0-4); Hematocrit 44.9 % (42.0-52.0); Hemoglobin 15.4 g/dl (14.0-18.0); Imm Gran Abs Auto 0.05 X10*3/uL (0.00-0.03); Imm Gran Pct Auto 0.4 % (0.0-0.4); Lymphocytes Absolute Auto 1.1 X10*3/uL (1.2-4.9); Lymphocytes Percent Auto 8.2 % (20-40); Mean Corpuscular HGB Conc 34.3 g/dl (31.0-36.0); Mean Corpuscular Hemoglobin 28.4 pg (27.0-33.0); Mean Corpuscular Volume 82.8 fL (80.0-98.0); Mean Platelet Volume 9.7 fL (9.4-12.4); Monocytes Percent Auto 7.4 % (2-11); Neutrophils Absolute Auto 11.4 x10*3/uL (2.0-8.3); Neutrophils Percent Auto 83.7 % (45-73); Platelet Count 278 X10*3/uL (160-400); Red Blood Count 5.42 X10*6/uL (4.60-5.80); Red Cell Distribution Width 13.2 % (11.0-16.0); White Blood Count 13.6 X10*3/uL (4.8-10.8)
[2024-06-11 04:11] LABS: Alanine Aminotransferase 45 U/L (0-40); Albumin Level 4.7 g/dL (3.5-5.0); Alkaline Phosphatase 90 U/L (39-117); Anion Gap 17 (12-20); Aspartate Amino Transferase 43 U/L (5-37); Bilirubin Total 0.7 mg/dL (0.0-1.0); Blood Urea Nitrogen 34 mg/dL (9-16); Calcium 9.9 mg/dL (8.4-10.2); Carbon Dioxide 25 mmol/L (22-29); Chloride 98 mmol/L (96-108); Creatinine Clr Calc Pharmacy 54.5; Estimated Glomerular Filt Rate 53; Glucose Random 257 mg/dL (60-115); Potassium 5.1 mmol/L (3.3-5.1); Sodium 135 mmol/L (135-145); Total Protein 8.9 g/dL (6.5-8.0)
[2024-06-11 04:30] LABS: Influenza A PCR NEGATIVE (Negative); Influenza B PCR NEGATIVE (Negative); Resp Syncy Virus RNA Qual PCR NEGATIVE (Negative); SARS COV2 PCR INHOUSE NEGATIVE (Negative)
[2024-06-11 05:31] VITALS: BP 130/83; PULSE 101; RESP 20; TEMP 36.5; O2SAT 96
[2024-06-11 05:34] LABS: Appearance Urine Clear; Color Urine Dark Yellow; Glucose Urine UA 500 mg/dL (Negative); Leukocyte Esterase Urine Negative (Negative); Nitrite Urine Negative (Negative); PH 5.5 (5.0-9.0); Specific Gravity - Urine >= 1.030 (1.005-1.025); UMIC TRIGGER UACC YES; Urine Blood Negative (Negative); Urine Ketones 15 mg/dL (Negative); Urine Protein 100 (2+) mg/dL (Neg-Trace)
[2024-06-11 05:47] LABS: Amphetamine Screen Urine Not Detected (Not Detect); Barbiturates, Urine Not Detected (Not Detect); Benzodiazepines Screen Urine Not Detected (Not Detect); Buprenorphine Scr Not Detected (Not Detect); Cannabinoid Screen Urine Not Detected (Not Detect); Cocaine Screen Urine POSITIVE (Not Detect); Fentanyl, urine Not Detected (Not Detect); Methadone Screen, Urine Not Detected (Not Detect); Opiate Screen Urine Not Detected (Not Detect); Oxycodone Screen Urine Not Detected (Not Detect); Phencyclidine Screen Urine Not Detected (Not Detect)
[2024-06-11 06:04] LABS: Bacteria Urine None Seen (None Seen); RBC Urine 0-2 /HPF (0-2); Squamous Epithelial Cell Urine 0-2 /HPF (0-2); WBC Urine 0-5 /HPF (0-5)
[2024-06-11 06:48] LABS: Troponin-I High Sensitivity 4.9 ng/L (<3.5-35.0)
--- NOTE | 2024-06-11 08:15 | PC.NURSE ---
pt requesting to leave/sign out AMA. pt notified/aware that he is unable to leave at this time d/t previous statements of SI. pt currently denies thoughts of SI/HI/AV/VH. pt agreeable to plan of care. pt resting in no apparent distress. no sob/wob noted. respirations even/unlabored. pending CARE team consult. 1:1 sitter present. plan of care ongoing.
[2024-06-11] MEDS: LORazepam 1 MG TABLET PO (09:36)
[2024-06-11] MEDS: OLANZapine 5 MG TABLET PO ×2 (09:47→11:18)
--- NOTE | 2024-06-11 09:52 | PC.NURSE ---
pt noted to become increasingly agitated while pending care team consult. pt noted to be responding to internal stimuli. provider notified/aware. medication administered per provider order. 1:1 sitter remains present. plan of care ongoing.
[2024-06-11 10:23] VITALS: BP 172/97; PULSE 111; RESP 20; TEMP 36.4; O2SAT 95
--- NOTE | 2024-06-11 10:50 | PC.NURSE ---
pt speaking w/ care team at this time. plan of care ongoing.
[2024-06-11] MEDS: LORazepam 1 MG TABLET 2 MG PO (11:18)
[2024-06-11 13:03] LABS: Glucose, Whole Blood 303 mg/dL (60-115)
[2024-06-11] MEDS: Insulin Lispro 100 UNIT/ML 3 ML VIAL SUBCUT ×3 (14:51→21:13)
[2024-06-11 18:31] LABS: Glucose, Whole Blood 345 mg/dL (60-115)
--- NOTE | 2024-06-11 19:18 | PC.NURSE ---
t/w arrives on unit patient is resting quietly received meal tray pleasant and cooperative needed some redirection regarding location of his room. appears in no distress.
[2024-06-11 20:00] VITALS: BP 146/85; PULSE 116; RESP 18; TEMP 36.3; O2SAT 98
[2024-06-11 21:15] LABS: Glucose, Whole Blood 304 mg/dL (60-115)
--- NOTE | 2024-06-12 03:17 | PC.NURSE ---
report received from [place] car. pt sleeping at this time.
--- NOTE | 2024-06-12 07:17 | PHA.MEDREC ---
Pharmacy Consult ? Medication Reconciliation Pharmacy has completed the medication reconciliation.Claims used to complete med rec. Patient was able to confirm 15 units bedtime Lantus dose. Was able to confirm that the patient never picked up discharge medications from this facility in Apr so those were left off of home med list.
[2024-06-12 07:24] LABS: Glucose, Whole Blood 288 mg/dL (60-115)
[2024-06-12] MEDS: Gabapentin 300 MG CAPSULE PO ×2 (09:41→21:10)
[2024-06-12] MEDS: SITagliptin Phosphate 100 MG TABLET PO (09:41)
[2024-06-12] MEDS: Fluticasone/Vilanterol 100/25 BLST.W.DEV 1 PUFF INHALE (09:41)
[2024-06-12] MEDS: hydrOXYzine HCL 50 MG TABLET PO ×2 (09:41→21:10)
[2024-06-12] MEDS: Insulin Lispro 100 UNIT/ML 3 ML VIAL SUBCUT (09:41)
[2024-06-12] MEDS: metFORMIN HCl 1,000 MG TABLET 1000 MG PO ×2 (09:41→21:10)
[2024-06-12] MEDS: PARoxetine HCL 40 MG TABLET PO (09:41)
[2024-06-12] MEDS: QUEtiapine Fumarate 100 MG TABLET PO (09:41)
--- NOTE | 2024-06-12 12:06 | PC.NURSE ---
Ate well for breakfast. Denies pain or discomfort. Requesting to leave stating he is not SI and needs to go deal with family issues. Message sent to care team, patient on section 12
[2024-06-12 13:09] LABS: Glucose, Whole Blood 145 mg/dL (60-115)
--- NOTE | 2024-06-12 16:36 | MHC.EDTECH ---
patient showered at 16:00.
[2024-06-12 18:23] LABS: Glucose, Whole Blood 212 mg/dL (60-115)
[2024-06-12] MEDS: LORazepam 1 MG TABLET 2 MG PO (19:53)
[2024-06-12] MEDS: Melatonin 3 MG TABLET 9 MG PO (21:09)
[2024-06-12] MEDS: Atorvastatin Calcium 20 MG TABLET PO (21:10)
[2024-06-12] MEDS: traZODone HCL 50 MG TABLET PO (21:10)
[2024-06-12] MEDS: QUEtiapine Fumarate 300 MG TABLET PO (21:10)
[2024-06-12 21:49] LABS: Glucose, Whole Blood 239 mg/dL (60-115)
[2024-06-12] MEDS: Insulin Glargine,Hum.rec.anlog 100 UNIT/ML 10 ML VIAL 15 UNIT SUBCUT (22:06)
--- NOTE | 2024-06-12 22:08 | PC.NURSE ---
patients hs blood sugar is 239. MD bruce notified that patients sliding scale was greyed out on apr. This nurse inquired about restarting sliding scale. awaiting response from .
[2024-06-13 00:06] LABS: Ethanol < 10 mg/dL
[2024-06-13 02:30] VITALS: BP 138/69; PULSE 94; RESP 16; TEMP 36.8; O2SAT 96
[2024-06-13] MEDS: Omeprazole 20 MG CAPSULE.DR PO (05:32)
[2024-06-13 05:34] VITALS: BP 122/74; PULSE 105; RESP 20; TEMP 36.4; O2SAT 97
[2024-06-13 05:37] LABS: Glucose, Whole Blood 245 mg/dL (60-115)
--- NOTE | 2024-06-13 06:23 | PC.NURSE ---
Patient slept through the night, no distress observed/reported, meds and meals compliant. 15 minutes safety check, no behavior and safety concerns, disposition per care team is section 12 inpatient bed search, will continue to monitor
--- NOTE | 2024-06-13 07:37 | PC.NURSE ---
Assumed care of patient at 0645, patient appears to be in no apparent distress this am, sleeping on couch BH 8, respirations even and unlabored. Continue plan of care for S12 IPLOC
[2024-06-13] MEDS: SITagliptin Phosphate 100 MG TABLET PO (09:26)
[2024-06-13] MEDS: PARoxetine HCL 40 MG TABLET PO (09:26)
[2024-06-13] MEDS: hydrOXYzine HCL 50 MG TABLET PO ×2 (09:26→21:41)
[2024-06-13] MEDS: Fluticasone/Vilanterol 100/25 BLST.W.DEV 1 PUFF INHALE (09:26)
[2024-06-13] MEDS: Gabapentin 300 MG CAPSULE PO ×2 (09:26→21:42)
[2024-06-13] MEDS: QUEtiapine Fumarate 100 MG TABLET PO (09:26)
[2024-06-13] MEDS: metFORMIN HCl 1,000 MG TABLET 1000 MG PO ×2 (09:26→21:41)
[2024-06-13 10:16] LABS: Glucose, Whole Blood 268 mg/dL (60-115)
--- NOTE | 2024-06-13 13:09 | HO.PSYADMNOT ---
HPI Date of Service: 06/13/24 Chief Complaint: Crisis Sources of Information: patient interviewed, chart reviewed and crisis/core team assessment reviewed HPI Subjective Notes: Chowdary Warning and Conditional Voluntary Narrative: Patient is a 59 year old male with hx of MDD, PTSD, and cocaine use d/o, who presented to [facility] ER due to suicidal ideation secondary to increased depression. Per crisis report, patient arrived to ER via ambulance with complaints of chest pain. Patient also reported that he was struggling with suicidal ideation and depression. Patient reports he has not taken his medications within the last week and began experiencing chest pain. He also reports continuous cocaine use. Patient denied SI/HI. Observed responding to internal stimuli. During admission assessment, patient presents alert and oriented x3. calm and cooperative. Patient reports feeling depressed ; patient stated, I'm having suicidal thoughts and hearing voices. They are telling me to cut myself . Patient reports he has not been taking his prescribed medications. He reports this is due to not being able to find what pharmacy were sent to . Patient reports he would like to be restarted on his medications and be referred to a substance abuse program. Denies HI/VH. Past Psychiatric History: History of multiple inpatient psychiatric admissions. SA: denies SIB: denies Outpatient providers: Rosi Kaminski [facility] therapist: [facility] [place] Medical Evaluation Reviewed: Yes [facility] Medical History Depression MDD (major depressive disorder), recurrent episode, moderate Cocaine use disorder Substance-induced psychotic disorder Anxiety Diabetes Family History: parents - alcohol brother - cocaine, heroin Social History: [facility]. Highschool diploma. Substance History: Cocaine and cannabis use. U tox positive for cocaine. Trauma History: yes Diagnostics Vital Signs (24Hr): Vital Signs - 24 hr 06/13/24 05:34 Temperature 97.6 F Pulse Rate 105 H Respiratory Rate 20 Blood Pressure 122/74 Pulse Oximetry 97 Oxygen Delivery Method Room Air BMI result Body Mass Index 26.6 Labs 06/11/24 03:49 06/13/24 13:32 Labs: Laboratory Results - last 48 hr 06/11/24 06/11/24 06/11/24 03:49 18:25 21:11 POC Glucose 345 H 304 H Ethyl Alcohol < 10 04/06/12/24 06/12/24 07:21 13:04 18:20 POC Glucose 288 H 145 H 212 H Ethyl Alcohol 06/12/24 06/13/24 06/13/24 21:47 05:33 10:12 POC Glucose 239 H 245 H 268 H Ethyl Alcohol Meds/Allergies Meds Home Medications ?Medication ?Instructions ?Recorded ?Confirmed ?Type albuterol sulfate 90 mcg/actuation 2 puff inhalation QID PRN wheezing 04/12/24 06/11/24 History aerosol inhaler (Ventolin HFA) fluticasone furoate 100 1 inh inhalation DAILY 04/12/24 06/11/24 History mcg-vilanterol 25 mcg/dose inhalation powder metformin 1,000 mg tablet 1,000 mg PO BID 04/12/24 06/11/24 History omeprazole 20 mg capsule,delayed 20 mg PO DAILY@0630 04/12/24 06/11/24 History release atorvastatin 20 mg tablet 20 mg PO BEDTIME 06/11/24 06/11/24 History melatonin 10 mg tablet 10 mg PO BEDTIME 06/11/24 06/11/24 History insulin glargine 100 unit/mL 15 unit subcut BEDTIME 06/12/24 06/12/24 History subcutaneous solution (Lantus U-100 Insulin) Allergies Allergies Allergy/AdvReac Type Severity Reaction Status Date / Time glipizide [GLIPIZIDE] Allergy Intermediate ITCHY Verified 06/11/24 03:02 oxycodone [From TYLOX] AdvReac Intermediate CHEST PAINS Verified 06/11/24 03:02 Mental Status Exam Mental Status Exam Narrative: Pt is alert and oriented; behavior is cooperative and calm; dressed in casual attire; mood is described as depressed ; eye contact appropriate; Speech is normal rate, volume and not pressured; thought process is organized; Thought content is on tx; denies SI/HI/VH. +AH; observed responding to internal stimuli. Assessment & Plan Assessment & Plan (1) MDD (major depressive disorder), recurrent episode, moderate: Status: Acute Code(s): F33.1 - Major depressive disorder, recurrent, moderate (2) PTSD (post-traumatic stress disorder): Status: Acute Code(s): F43.10 - Post-traumatic stress disorder, unspecified (3) Cocaine use disorder: Status: Acute Code(s): F14.10 - Cocaine abuse, uncomplicated Plan Patient is a 59 year old male with hx of MDD, PTSD, and cocaine use d/o, who presented to [facility] ER due to suicidal ideation secondary to increased depression. Plan: CV 15 minute safety checks Continue home medications Obtain collateral Encourage groups Referral to substance abuse program Discharge planning Patient educated on: diagnosis and medication risk/benefits Reason for continued inpatient stay Substantial Risk for: harm to self and med/psych decompensation Statement Statement: I have reviewed the history and physical and performed a pertinent examination on my patient. No changes have occurred unless specified. If the History and Physical was not performed prior to admission, the Hospitalist's service will be consulted for completing the admission physical. Time Spent With Patient Time: Total time managing care of this patient today _60___ minutes.
[2024-06-13 13:52] LABS: Alanine Aminotransferase 41 U/L (0-40); Albumin Level 4.2 g/dL (3.5-5.0); Alkaline Phosphatase 81 U/L (39-117); Anion Gap 13 (12-20); Aspartate Amino Transferase 29 U/L (5-37); Bilirubin Total 0.4 mg/dL (0.0-1.0); Blood Urea Nitrogen 25 mg/dL (9-16); Calcium 9.6 mg/dL (8.4-10.2); Carbon Dioxide 26 mmol/L (22-29); Chloride 102 mmol/L (96-108); Creatinine Clr Calc Pharmacy 65.4; Estimated Glomerular Filt Rate > 60; Glucose Random 204 mg/dL (60-115); Potassium 4.4 mmol/L (3.3-5.1); Sodium 137 mmol/L (135-145); Total Protein 8.2 g/dL (6.5-8.0)
[2024-06-13 16:56] LABS: Glucose, Whole Blood 158 mg/dL (60-115)
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
[2024-06-13 17:29] VITALS: BMI 28.7
[2024-06-13 20:00] VITALS: BP 147/79; PULSE 97; RESP 16; TEMP 36.5; O2SAT 98
[2024-06-13 21:12] LABS: Glucose, Whole Blood 239 mg/dL (60-115)
[2024-06-13] MEDS: QUEtiapine Fumarate 300 MG TABLET PO (21:40)
[2024-06-13] MEDS: traZODone HCL 50 MG TABLET PO (21:40)
[2024-06-13] MEDS: Atorvastatin Calcium 20 MG TABLET PO (21:41)
[2024-06-13] MEDS: Melatonin 3 MG TABLET 9 MG PO (21:42)
[2024-06-13] MEDS: Insulin Lispro 100 UNIT/ML 3 ML VIAL SUBCUT (21:43)
[2024-06-13] MEDS: Insulin Glargine,Hum.rec.anlog 100 UNIT/ML 10 ML VIAL 15 UNIT SUBCUT (21:47)
[2024-06-13] MEDS: Milk of Magnesia 30 ML ORAL.SUSP PO (21:54)
[2024-06-14] MEDS: Omeprazole 20 MG CAPSULE.DR PO (06:48)
[2024-06-14 07:44] VITALS: BP 136/66; PULSE 92; RESP 16; TEMP 36.3; O2SAT 96
[2024-06-14 08:19] LABS: Glucose, Whole Blood 320 mg/dL (60-115)
[2024-06-14 08:26] LABS: Estimated Average Glucose 192 mg/dL; Hemoglobin A1C 245.8446 umol/L; Hemoglobin A1c % 8.3 % (<6.0)
[2024-06-14 08:32] LABS: Cholesterol 154 mg/dL (<200); HDL Cholesterol 31 mg/dL (>40); LDL Cholesterol Calculated 76 mg/dL (<100); Triglycerides 237 mg/dL (<150)
[2024-06-14] MEDS: Fluticasone/Vilanterol 100/25 BLST.W.DEV 1 PUFF INHALE (08:40)
[2024-06-14] MEDS: Insulin Lispro 100 UNIT/ML 3 ML VIAL SUBCUT ×3 (08:41→21:46)
[2024-06-14] MEDS: hydrOXYzine HCL 50 MG TABLET PO ×2 (08:42→21:48)
[2024-06-14] MEDS: Gabapentin 300 MG CAPSULE PO ×2 (08:42→21:49)
[2024-06-14] MEDS: SITagliptin Phosphate 100 MG TABLET PO (08:42)
[2024-06-14] MEDS: PARoxetine HCL 40 MG TABLET PO (08:42)
[2024-06-14] MEDS: Nicotine 21 MG PATCH.TD24 TRANSDERMA (08:42)
[2024-06-14] MEDS: metFORMIN HCl 1,000 MG TABLET 1000 MG PO ×2 (08:42→21:49)
[2024-06-14] MEDS: QUEtiapine Fumarate 100 MG TABLET PO (08:46)
[2024-06-14] MEDS: Acetaminophen 325 MG TABLET 650 MG PO (09:12)
[2024-06-14] MEDS: hydrOXYzine HCL 25 MG TABLET PO ×2 (11:33→18:43)
[2024-06-14 12:33] LABS: Glucose, Whole Blood 124 mg/dL (60-115)
--- NOTE | 2024-06-14 15:16 | P.PNPSI_ITS ---
Subjective Subjective Date of Service: 06/14/24 Reason For Visit: Crisis Interim History: c/o anxiety, agreeable to seroquel PRN. c/o infection inside nare, bacitracin. per staff, calm, cooperative, depressed. reporting CAH to cut/kill self. +RIS - poor sleep and appetite. slept all NOC. Mental Status Exam Mental Status Exam Narrative: Pt is alert and oriented; behavior is cooperative and calm; dressed in casual attire; mood is described as anxious; eye contact appropriate; Speech is normal rate, volume and not pressured; thought process is organized; Thought content is on tx; no SI/HI/AVH expressed. Diagnostics Vital Signs (24Hr): Vital Signs - 24 hr 06/13/24 20:00 06/14/24 07:44 Temperature 97.7 F 97.3 F Pulse Rate 97 92 Respiratory Rate 16 16 Blood Pressure 147/79 H 136/66 Pulse Oximetry 98 96 Oxygen Delivery Method Room Air Room Air BMI result Body Mass Index 28.7 Labs 06/11/24 03:49 06/13/24 13:32 Labs: Laboratory Results - last 48 hr 06/11/24 06/12/24 06/12/24 03:49 18:20 21:47 Sodium Potassium Chloride Carbon Dioxide Anion Gap BUN Creatinine Estim Creat Clear Calc Estimated GFR POC Glucose 212 H 239 H Random Glucose Estimat Average Glucose Hemoglobin A1c % Calcium Total Bilirubin AST ALT Alkaline Phosphatase Total Protein Albumin Triglycerides Cholesterol LDL Cholesterol, Calc HDL Cholesterol Ethyl Alcohol < 10 06/13/24 06/13/24 06/13/24 05:33 10:12 13:32 Sodium 137 Potassium 4.4 Chloride 102 Carbon Dioxide 26 Anion Gap 13 BUN 25 H Creatinine 1.15 Estim Creat Clear Calc 65.4 Estimated GFR > 60 POC Glucose 245 H 268 H Random Glucose 204 H Estimat Average Glucose Hemoglobin A1c % Calcium 9.6 Total Bilirubin 0.4 AST 29 ALT 41 H Alkaline Phosphatase 81 Total Protein 8.2 H Albumin 4.2 Triglycerides Cholesterol LDL Cholesterol, Calc HDL Cholesterol Ethyl Alcohol 06/13/24 06/13/24 06/14/24 16:51 21:06 07:41 Sodium Potassium Chloride Carbon Dioxide Anion Gap BUN Creatinine Estim Creat Clear Calc Estimated GFR POC Glucose 158 H 239 H Random Glucose Estimat Average Glucose 192 Hemoglobin A1c % 8.3 H Calcium Total Bilirubin AST ALT Alkaline Phosphatase Total Protein Albumin Triglycerides 237 H Cholesterol 154 LDL Cholesterol, Calc 76 HDL Cholesterol 31 L Ethyl Alcohol 06/14/24 06/14/24 08:12 12:01 Sodium Potassium Chloride Carbon Dioxide Anion Gap BUN Creatinine Estim Creat Clear Calc Estimated GFR POC Glucose 320 H 124 H Random Glucose Estimat Average Glucose Hemoglobin A1c % Calcium Total Bilirubin AST ALT Alkaline Phosphatase Total Protein Albumin Triglycerides Cholesterol LDL Cholesterol, Calc HDL Cholesterol Ethyl Alcohol Medications Medications Current Medications Acetaminophen (Acetaminophen 325 Mg Tablet) 650 mg PO Q6H PRN PRN Reason: Headache/Pain, Scale 1-10 Last Admin: 06/14/24 09:12 Dose: 650 mg Al Hydroxide/Mg Hydroxide (Magnesium Hydrox/Alum Hydrox 30 Ml Oral.Susp) 30 ml PO Q6H PRN PRN Reason: Heartburn/Nausea Albuterol Sulfate (Albuterol Sulfate 90 Mcg 8 Gm Inhaler) 2 puff INHALE QID PRN PRN Reason: wheezing Atorvastatin Calcium (Atorvastatin Calcium 20 Mg Tablet) 20 mg PO BEDTIME [facility] Last Admin: 06/13/24 21:41 Dose: 20 mg Bacitracin (Bacitracin Oint 14 Gm Tube) 1 appl TOPICAL BID [facility]; Protocol Fluticasone/Vilanterol (Fluticasone/Vilanterol 100/25 Blst.W.Dev) 1 puff INHALE DAILY [facility] Last Admin: 06/14/24 08:40 Dose: 1 puff Gabapentin (Gabapentin 300 Mg Capsule) 300 mg PO BID [facility] Last Admin: 06/14/24 08:42 Dose: 300 mg Glucose (Glucose Gel 15 Gm Gel..Gram.) 15 gm PO Q15M PRN; Protocol PRN Reason: per Hypoglycemia Standing Ord. Hydroxyzine HCl (Hydroxyzine Hcl 50 Mg Tablet) 50 mg PO BID [facility] Last Admin: 06/14/24 08:42 Dose: 50 mg Hydroxyzine HCl (Hydroxyzine Hcl 25 Mg Tablet) 25 mg PO Q6H PRN PRN Reason: mild anxiety Last Admin: 06/14/24 11:33 Dose: 25 mg Insulin Glargine (Insulin Glargine,Hum.Rec.Anlog 100 Unit/Ml 10 Ml Vial) 15 unit SUBCUT BEDTIME [facility] Last Admin: 06/13/24 21:47 Dose: 15 unit Insulin Human Lispro (Insulin Lispro 100 Unit/Ml 3 Ml Vial) 0 unit SUBCUT QIDACHS [facility]; Protocol Last Admin: 06/14/24 12:21 Dose: Not Given Magnesium Hydroxide (Milk Of Magnesia 30 Ml Oral.Susp) 30 ml PO DAILY PRN PRN Reason: Constipation Last Admin: 06/13/24 21:54 Dose: 30 ml Melatonin (Melatonin 3 Mg Tablet) 9 mg PO BEDTIME [facility] Last Admin: 06/13/24 21:42 Dose: 9 mg Metformin HCl (Metformin Hcl 1,000 Mg Tablet) 1,000 mg PO BID [facility] Last Admin: 06/14/24 08:42 Dose: 1,000 mg Nicotine (Nicotine 21 Mg Patch.Td24) 21 mg TRANSDERMA DAILY [facility] Last Admin: 06/14/24 08:42 Dose: 21 mg Nicotine Polacrilex (Nicotine Polacrilex 2 Mg Gum) 4 mg BUCCAL Q2H PRN PRN Reason: Nicotine Cravings Omeprazole (Omeprazole 20 Mg Capsule.Dr) 20 mg PO DAILY@0630 [facility] Last Admin: 06/14/24 06:48 Dose: 20 mg Paroxetine HCl (Paroxetine Hcl 40 Mg Tablet) 40 mg PO DAILY [facility] Last Admin: 06/14/24 08:42 Dose: 40 mg Quetiapine Fumarate (Quetiapine Fumarate 100 Mg Tablet) 100 mg PO DAILY [facility] Last Admin: 06/14/24 08:46 Dose: 100 mg Quetiapine Fumarate (Quetiapine Fumarate 300 Mg Tablet) 300 mg PO BEDTIME [facility] Last Admin: 06/13/24 21:40 Dose: 300 mg Quetiapine Fumarate (Quetiapine Fumarate 50 Mg Tablet) 50 mg PO Q4H PRN PRN Reason: severe anxiety Sitagliptin Phosphate (Sitagliptin Phosphate 100 Mg Tablet) 100 mg PO DAILY [facility] Last Admin: 06/14/24 08:42 Dose: 100 mg Trazodone HCl (Trazodone Hcl 50 Mg Tablet) 50 mg PO BEDTIME [facility] Last Admin: 06/13/24 21:40 Dose: 50 mg Allergies Allergies Allergy/AdvReac Type Severity Reaction Status Date / Time glipizide [GLIPIZIDE] Allergy Intermediate ITCHY Verified 06/11/24 03:02 oxycodone [From TYLOX] AdvReac Intermediate CHEST PAINS Verified 06/11/24 03:02 Assessment & Plan Assessment & Plan (1) MDD (major depressive disorder), recurrent episode, moderate: Status: Acute Code(s): F33.1 - Major depressive disorder, recurrent, moderate (2) PTSD (post-traumatic stress disorder): Status: Acute Code(s): F43.10 - Post-traumatic stress disorder, unspecified (3) Cocaine use disorder: Status: Acute Code(s): F14.10 - Cocaine abuse, uncomplicated Plan Patient is a 59 year old male with hx of MDD, PTSD, and cocaine use d/o, who presented to [facility] ER due to suicidal ideation secondary to increased depression. Plan: CV 15 minute safety checks Continue home medications Obtain collateral Encourage groups Referral to substance abuse program Discharge planning 06/14: anxious. add seroquel 25 PRNs. c/o nasal mucosal infection. add bacitracin. Reason for continued inpatient stay Substantial Risk for: harm to self Time Spent With Patient Time: Total time managing care of this patient today ____ minutes.
[2024-06-14 17:17] LABS: Glucose, Whole Blood 209 mg/dL (60-115)
[2024-06-14 20:58] LABS: Glucose, Whole Blood 278 mg/dL (60-115)
[2024-06-14] MEDS: Atorvastatin Calcium 20 MG TABLET PO (21:48)
[2024-06-14] MEDS: Melatonin 3 MG TABLET 9 MG PO (21:48)
[2024-06-14] MEDS: Bacitracin Oint 14 GM TUBE 1 APPL TOPICAL (21:48)
[2024-06-14] MEDS: QUEtiapine Fumarate 300 MG TABLET PO (21:49)
[2024-06-14] MEDS: traZODone HCL 50 MG TABLET PO (21:49)
[2024-06-14] MEDS: Insulin Glargine,Hum.rec.anlog 100 UNIT/ML 10 ML VIAL 15 UNIT SUBCUT (21:51)
[2024-06-14 21:52] VITALS: BP 157/80; PULSE 75; RESP 18; TEMP 36.5; O2SAT 99
[2024-06-15] MEDS: Omeprazole 20 MG CAPSULE.DR PO (06:23)
[2024-06-15 07:42] LABS: Glucose, Whole Blood 272 mg/dL (60-115)
[2024-06-15 07:53] VITALS: BP 133/65; PULSE 74; RESP 16; TEMP 36.4; O2SAT 98
[2024-06-15] MEDS: SITagliptin Phosphate 100 MG TABLET PO (08:25)
[2024-06-15] MEDS: hydrOXYzine HCL 50 MG TABLET PO ×2 (08:25→21:22)
[2024-06-15] MEDS: metFORMIN HCl 1,000 MG TABLET 1000 MG PO ×2 (08:25→21:22)
[2024-06-15] MEDS: QUEtiapine Fumarate 100 MG TABLET PO (08:25)
[2024-06-15] MEDS: Gabapentin 300 MG CAPSULE PO ×2 (08:25→21:22)
[2024-06-15] MEDS: PARoxetine HCL 40 MG TABLET PO (08:26)
[2024-06-15] MEDS: Fluticasone/Vilanterol 100/25 BLST.W.DEV 1 PUFF INHALE (08:26)
[2024-06-15] MEDS: Insulin Lispro 100 UNIT/ML 3 ML VIAL SUBCUT ×4 (08:27→21:20)
[2024-06-15] MEDS: Bacitracin Oint 14 GM TUBE 1 APPL TOPICAL (08:30)
[2024-06-15] MEDS: Nicotine 21 MG PATCH.TD24 TRANSDERMA (08:31)
--- NOTE | 2024-06-15 09:46 | HO.PSYCHPN ---
Subjective Subjective Date of Service: 06/15/24 Reason For Visit: Crisis Subjective Notes: 3 Day Interim History: Active on unit. attending some groups. Patient reports feeling better today with some anxiety; pt denies SI/HI/VH/AH. Patient reports he plans on attending NA meetings to maintain his sobriety. He plans on following up with outpatient providers. 3 day up on 06/15/24. Medication Compliance: Yes Side effects from medications: No Attending Groups: Intermittent Mental Status Exam Mental Status Exam Narrative: Pt is alert and oriented; behavior is cooperative and calm; dressed in casual attire; mood is described as better; eye contact appropriate; Speech is normal rate, volume and not pressured; thought process is organized; Thought content is on discharge;denies SI/HI/AH/VH Diagnostics Vital Signs (24Hr): Vital Signs - 24 hr 06/14/24 21:52 06/15/24 07:53 Temperature 97.7 F 97.5 F Pulse Rate 75 74 Respiratory Rate 18 16 Blood Pressure 157/80 H 133/65 Pulse Oximetry 99 98 Oxygen Delivery Method Room Air Room Air BMI result Body Mass Index 28.7 Labs 06/11/24 03:49 06/13/24 13:32 Labs: Laboratory Results - last 48 hr 06/13/24 06/13/24 06/13/24 10:12 13:32 16:51 Sodium 137 Potassium 4.4 Chloride 102 Carbon Dioxide 26 Anion Gap 13 BUN 25 H Creatinine 1.15 Estim Creat Clear Calc 65.4 Estimated GFR > 60 POC Glucose 268 H 158 H Random Glucose 204 H Estimat Average Glucose Hemoglobin A1c % Calcium 9.6 Total Bilirubin 0.4 AST 29 ALT 41 H Alkaline Phosphatase 81 Total Protein 8.2 H Albumin 4.2 Triglycerides Cholesterol LDL Cholesterol, Calc HDL Cholesterol 06/13/24 06/14/24 06/14/24 21:06 07:41 08:12 Sodium Potassium Chloride Carbon Dioxide Anion Gap BUN Creatinine Estim Creat Clear Calc Estimated GFR POC Glucose 239 H 320 H Random Glucose Estimat Average Glucose 192 Hemoglobin A1c % 8.3 H Calcium Total Bilirubin AST ALT Alkaline Phosphatase Total Protein Albumin Triglycerides 237 H Cholesterol 154 LDL Cholesterol, Calc 76 HDL Cholesterol 31 L 06/14/24 06/14/24 06/14/24 12:01 17:12 20:50 Sodium Potassium Chloride Carbon Dioxide Anion Gap BUN Creatinine Estim Creat Clear Calc Estimated GFR POC Glucose 124 H 209 H 278 H Random Glucose Estimat Average Glucose Hemoglobin A1c % Calcium Total Bilirubin AST ALT Alkaline Phosphatase Total Protein Albumin Triglycerides Cholesterol LDL Cholesterol, Calc HDL Cholesterol 06/15/24 07:29 Sodium Potassium Chloride Carbon Dioxide Anion Gap BUN Creatinine Estim Creat Clear Calc Estimated GFR POC Glucose 272 H Random Glucose Estimat Average Glucose Hemoglobin A1c % Calcium Total Bilirubin AST ALT Alkaline Phosphatase Total Protein Albumin Triglycerides Cholesterol LDL Cholesterol, Calc HDL Cholesterol Medications Medications Current Medications Acetaminophen (Acetaminophen 325 Mg Tablet) 650 mg PO Q6H PRN PRN Reason: Headache/Pain, Scale 1-10 Last Admin: 06/14/24 09:12 Dose: 650 mg Al Hydroxide/Mg Hydroxide (Magnesium Hydrox/Alum Hydrox 30 Ml Oral.Susp) 30 ml PO Q6H PRN PRN Reason: Heartburn/Nausea Albuterol Sulfate (Albuterol Sulfate 90 Mcg 8 Gm Inhaler) 2 puff INHALE QID PRN PRN Reason: wheezing Atorvastatin Calcium (Atorvastatin Calcium 20 Mg Tablet) 20 mg PO BEDTIME [facility] Last Admin: 06/14/24 21:48 Dose: 20 mg Bacitracin (Bacitracin Oint 14 Gm Tube) 1 appl TOPICAL BID [facility]; Protocol Last Admin: 06/15/24 08:30 Dose: 1 appl Fluticasone/Vilanterol (Fluticasone/Vilanterol 100/25 Blst.W.Dev) 1 puff INHALE DAILY [facility] Last Admin: 06/15/24 08:26 Dose: 1 puff Gabapentin (Gabapentin 300 Mg Capsule) 300 mg PO BID [facility] Last Admin: 06/15/24 08:25 Dose: 300 mg Glucose (Glucose Gel 15 Gm Gel..Gram.) 15 gm PO Q15M PRN; Protocol PRN Reason: per Hypoglycemia Standing Ord. Hydroxyzine HCl (Hydroxyzine Hcl 50 Mg Tablet) 50 mg PO BID [facility] Last Admin: 06/15/24 08:25 Dose: 50 mg Hydroxyzine HCl (Hydroxyzine Hcl 25 Mg Tablet) 25 mg PO Q6H PRN PRN Reason: mild anxiety Last Admin: 06/14/24 18:43 Dose: 25 mg Insulin Glargine (Insulin Glargine,Hum.Rec.Anlog 100 Unit/Ml 10 Ml Vial) 15 unit SUBCUT BEDTIME [facility] Last Admin: 06/14/24 21:51 Dose: 15 unit Insulin Human Lispro (Insulin Lispro 100 Unit/Ml 3 Ml Vial) 0 unit SUBCUT QIDACHS [facility]; Protocol Last Admin: 06/15/24 08:27 Dose: 6 unit Magnesium Hydroxide (Milk Of Magnesia 30 Ml Oral.Susp) 30 ml PO DAILY PRN PRN Reason: Constipation Last Admin: 06/13/24 21:54 Dose: 30 ml Melatonin (Melatonin 3 Mg Tablet) 9 mg PO BEDTIME [facility] Last Admin: 06/14/24 21:48 Dose: 9 mg Metformin HCl (Metformin Hcl 1,000 Mg Tablet) 1,000 mg PO BID [facility] Last Admin: 06/15/24 08:25 Dose: 1,000 mg Nicotine (Nicotine 21 Mg Patch.Td24) 21 mg TRANSDERMA DAILY [facility] Last Admin: 06/15/24 08:31 Dose: 21 mg Nicotine Polacrilex (Nicotine Polacrilex 2 Mg Gum) 4 mg BUCCAL Q2H PRN PRN Reason: Nicotine Cravings Omeprazole (Omeprazole 20 Mg Capsule.Dr) 20 mg PO DAILY@0630 [facility] Last Admin: 06/15/24 06:23 Dose: 20 mg Paroxetine HCl (Paroxetine Hcl 40 Mg Tablet) 40 mg PO DAILY [facility] Last Admin: 06/15/24 08:26 Dose: 40 mg Quetiapine Fumarate (Quetiapine Fumarate 100 Mg Tablet) 100 mg PO DAILY [facility] Last Admin: 06/15/24 08:25 Dose: 100 mg Quetiapine Fumarate (Quetiapine Fumarate 300 Mg Tablet) 300 mg PO BEDTIME [facility] Last Admin: 06/14/24 21:49 Dose: 300 mg Quetiapine Fumarate (Quetiapine Fumarate 50 Mg Tablet) 50 mg PO Q4H PRN PRN Reason: severe anxiety Sitagliptin Phosphate (Sitagliptin Phosphate 100 Mg Tablet) 100 mg PO DAILY [facility] Last Admin: 06/15/24 08:25 Dose: 100 mg Trazodone HCl (Trazodone Hcl 50 Mg Tablet) 50 mg PO BEDTIME [facility] Last Admin: 06/14/24 21:49 Dose: 50 mg Allergies Allergies Allergy/AdvReac Type Severity Reaction Status Date / Time glipizide [GLIPIZIDE] Allergy Intermediate ITCHY Verified 06/11/24 03:02 oxycodone [From TYLOX] AdvReac Intermediate CHEST PAINS Verified 06/11/24 03:02 Assessment & Plan Assessment & Plan (1) MDD (major depressive disorder), recurrent episode, moderate: Status: Acute Code(s): F33.1 - Major depressive disorder, recurrent, moderate (2) PTSD (post-traumatic stress disorder): Status: Acute Code(s): F43.10 - Post-traumatic stress disorder, unspecified (3) Cocaine use disorder: Status: Acute Code(s): F14.10 - Cocaine abuse, uncomplicated Plan Patient is a 59 year old male with hx of MDD, PTSD, and cocaine use d/o, who presented to [facility] due to suicidal ideation secondary to increased depression. Plan: CV 15 minute safety checks Continue home medications Obtain collateral Encourage groups Referral to substance abuse program Discharge planning 06/14: anxious. add seroquel 25 PRNs. c/o nasal mucosal infection. add bacitracin. 06/15: Active on unit. attending some groups. Patient reports feeling better today with some anxiety; pt denies SI/HI/VH/AH. Patient reports he plans on attending NA meetings to maintain his sobriety. He plans on following up with outpatient providers. 3 day up on 06/15/24. Patient educated on: diagnosis and medication risk/benefits Reason for continued inpatient stay Substantial Risk for: stable for discharge Time Spent With Patient Time: Total time managing care of this patient today _20___ minutes.
[2024-06-15] MEDS: hydrOXYzine HCL 25 MG TABLET PO (10:37)
[2024-06-15 11:49] LABS: Glucose, Whole Blood 174 mg/dL (60-115)
--- NOTE | 2024-06-15 15:00 | PM.PSYDC ---
DS: Providers Provider Date of Service: 06/15/24 Date of admission: 06/13/24 12:10 Date of discharge: 06/16/24 Primary care physician: Unknown Physician Admitting clinician: Bing Li Attending physician on admission: Collin Gambino Attending physician on discharge: Collin Gambino Discharging clinician: Bing Li DS: Diagnosis Discharge Diagnosis (1) MDD (major depressive disorder), recurrent episode, moderate: Status: Acute (2) PTSD (post-traumatic stress disorder): Status: Acute (3) Cocaine use disorder: Status: Acute DS: Medications Discharge Medications Home Medications: Home Medications ?Medication ?Instructions ?Recorded ?Confirmed fluticasone furoate 100 1 inh inhalation DAILY 04/12/24 06/11/24 mcg-vilanterol 25 mcg/dose inhalation powder omeprazole 20 mg capsule,delayed 20 mg PO DAILY@0630 04/12/24 06/11/24 release melatonin 10 mg tablet 10 mg PO BEDTIME 06/11/24 06/11/24 insulin glargine 100 unit/mL 15 unit subcut BEDTIME 06/12/24 06/12/24 subcutaneous solution (Lantus U-100 Insulin) Previous Rx's ?Medication ?Instructions ?Recorded hydroxyzine pamoate 50 mg capsule 50 mg PO BID 30 days #60 caps 04/20/24 trazodone 50 mg tablet 50 mg PO BEDTIME 30 days #30 tabs 04/20/24 albuterol sulfate 90 mcg/actuation 2 puff inhalation QID PRN wheezing 06/15/24 aerosol inhaler (Ventolin HFA) 30 days #8.5 grams atorvastatin 20 mg tablet 20 mg PO BEDTIME 30 days #30 tabs 06/15/24 gabapentin 300 mg capsule 300 mg PO BID 30 days #60 caps 06/15/24 insulin lispro 100 unit/mL See Protocol subcut QIDACHS 30 06/15/24 subcutaneous solution (Admelog days #10 mL U-100 Insulin lispro) metformin 1,000 mg tablet 1,000 mg PO BID 30 days #60 tabs 06/15/24 paroxetine HCl 40 mg tablet 40 mg PO DAILY 30 days #30 tabs 06/15/24 quetiapine 100 mg tablet 100 mg PO DAILY 30 days #30 tabs 06/15/24 quetiapine 300 mg tablet 300 mg PO BEDTIME 30 days #30 tabs 06/15/24 sitagliptin phosphate 100 mg 100 mg PO DAILY 30 days #30 tabs 06/15/24 tablet (Januvia) Mental Status Exam Mental Status Exam Narrative: Pt is alert and oriented; behavior is cooperative and calm; dressed in casual attire; mood is described as good; eye contact appropriate; Speech is normal rate, volume and not pressured; thought process is organized; Thought content is on discharge;denies SI/HI// Data Data Completed and Pending Completed studies during hospitalization [Text1]: 06/11/24 06/11/24 06/11/24 03:49 05:26 06:02 WBC 13.6 H RBC 5.42 Hgb 15.4 Hct 44.9 MCV 82.8 MCH 28.4 MCHC 34.3 RDW 13.2 Plt Count 278 MPV 9.7 Immature Gran % (Auto) 0.4 Neut % (Auto) 83.7 H Lymph % (Auto) 8.2 L [place] % (Auto) 7.4 Eos % (Auto) 0.1 Baso % (Auto) 0.2 Lymph # (Auto) 1.1 L [place] # (Auto) 1.0 Eos # (Auto) 0.0 Baso # (Auto) 0.0 Abs Immat Gran (auto) 0.05 H Absolute Neuts (auto) 11.4 H Absolute Nucleated RBC 0.000 Nucleated RBC % (auto) 0.0 Sodium 135 Potassium 5.1 Chloride 98 Carbon Dioxide 25 Anion Gap 17 BUN 34 H Creatinine 1.38 Estim Creat Clear Calc 54.5 Estimated GFR 53 POC Glucose Random Glucose 257 H Estimat Average Glucose Hemoglobin A1c % Calcium 9.9 Total Bilirubin 0.7 AST 43 H ALT 45 H Alkaline Phosphatase 90 Troponin I High Sens 5.0 D 4.9 Total Protein 8.9 H Albumin 4.7 Triglycerides Cholesterol LDL Cholesterol, Calc HDL Cholesterol Urine Color Dark Yellow Urine Appearance Clear Urine pH 5.5 Ur Specific [place] >= 1.030 H Urine Protein 100 (2+) H Urine Glucose (UA) 500 H Urine Ketones 15 Urine Blood Negative Urine Nitrite Negative Ur Leukocyte Esterase Negative Urine RBC 0-2 Urine WBC 0-5 Ur Squamous Epith Cells 0-2 Urine Bacteria None Seen Hyaline Casts 6-10 Urine Opiates Screen Not Detected Ur Buprenorphine Scrn Not Detected Ur Oxycodone Screen Not Detected Urine Methadone Screen Not Detected Urine Fentanyl Screen Not Detected Ur Barbiturates Screen Not Detected Ur Phencyclidine Scrn Not Detected Ur Amphetamines Screen Not Detected U Benzodiazepines Scrn Not Detected Urine Cocaine Screen POSITIVE H U Marijuana (THC) Screen Not Detected Ethyl Alcohol < 10 Influenza Type A (PCR) NEGATIVE Influenza Type B (PCR) NEGATIVE RSV RNA Qual (PCR) NEGATIVE SARS-CoV-2 RNA (RT-PCR) NEGATIVE 06/11/24 06/11/24 06/11/24 12:59 18:25 21:11 WBC RBC Hgb Hct MCV MCH MCHC RDW Plt Count MPV Immature Gran % (Auto) Neut % (Auto) Lymph % (Auto) [place] % (Auto) Eos % (Auto) Baso % (Auto) Lymph # (Auto) [place] # (Auto) Eos # (Auto) Baso # (Auto) Abs Immat Gran (auto) Absolute Neuts (auto) Absolute Nucleated RBC Nucleated RBC % (auto) Sodium Potassium Chloride Carbon Dioxide Anion Gap BUN Creatinine Estim Creat Clear Calc Estimated GFR POC Glucose 303 H 345 H 304 H Random Glucose Estimat Average Glucose Hemoglobin A1c % Calcium Total Bilirubin AST ALT Alkaline Phosphatase Troponin I High Sens Total Protein Albumin Triglycerides Cholesterol LDL Cholesterol, Calc HDL Cholesterol Urine Color Urine Appearance Urine pH Ur Specific [place] Urine Protein Urine Glucose (UA) Urine Ketones Urine Blood Urine Nitrite Ur Leukocyte Esterase Urine RBC Urine WBC Ur Squamous Epith Cells Urine Bacteria Hyaline Casts Urine Opiates Screen Ur Buprenorphine Scrn Ur Oxycodone Screen Urine Methadone Screen Urine Fentanyl Screen Ur Barbiturates Screen Ur Phencyclidine Scrn Ur Amphetamines Screen U Benzodiazepines Scrn Urine Cocaine Screen U Marijuana (THC) Screen Ethyl Alcohol Influenza Type A (PCR) Influenza Type B (PCR) RSV RNA Qual (PCR) SARS-CoV-2 RNA (RT-PCR) 06/12/24 06/12/24 06/12/24 07:21 13:04 18:20 WBC RBC Hgb Hct MCV MCH MCHC RDW Plt Count MPV Immature Gran % (Auto) Neut % (Auto) Lymph % (Auto) [place] % (Auto) Eos % (Auto) Baso % (Auto) Lymph # (Auto) [place] # (Auto) Eos # (Auto) Baso # (Auto) Abs Immat Gran (auto) Absolute Neuts (auto) Absolute Nucleated RBC Nucleated RBC % (auto) Sodium Potassium Chloride Carbon Dioxide Anion Gap BUN Creatinine Estim Creat Clear Calc Estimated GFR POC Glucose 288 H 145 H 212 H Random Glucose Estimat Average Glucose Hemoglobin A1c % Calcium Total Bilirubin AST ALT Alkaline Phosphatase Troponin I High Sens Total Protein Albumin Triglycerides Cholesterol LDL Cholesterol, Calc HDL Cholesterol Urine Color Urine Appearance Urine pH Ur Specific [place] Urine Protein Urine Glucose (UA) Urine Ketones Urine Blood Urine Nitrite Ur Leukocyte Esterase Urine RBC Urine WBC Ur Squamous Epith Cells Urine Bacteria Hyaline Casts Urine Opiates Screen Ur Buprenorphine Scrn Ur Oxycodone Screen Urine Methadone Screen Urine Fentanyl Screen Ur Barbiturates Screen Ur Phencyclidine Scrn Ur Amphetamines Screen U Benzodiazepines Scrn Urine Cocaine Screen U Marijuana (THC) Screen Ethyl Alcohol Influenza Type A (PCR) Influenza Type B (PCR) RSV RNA Qual (PCR) SARS-CoV-2 RNA (RT-PCR) 06/12/24 06/13/24 06/13/24 21:47 05:33 10:12 WBC RBC Hgb Hct MCV MCH MCHC RDW Plt Count MPV Immature Gran % (Auto) Neut % (Auto) Lymph % (Auto) [place] % (Auto) Eos % (Auto) Baso % (Auto) Lymph # (Auto) [place] # (Auto) Eos # (Auto) Baso # (Auto) Abs Immat Gran (auto) Absolute Neuts (auto) Absolute Nucleated RBC Nucleated RBC % (auto) Sodium Potassium Chloride Carbon Dioxide Anion Gap BUN Creatinine Estim Creat Clear Calc Estimated GFR POC Glucose 239 H 245 H 268 H Random Glucose Estimat Average Glucose Hemoglobin A1c % Calcium Total Bilirubin AST ALT Alkaline Phosphatase Troponin I High Sens Total Protein Albumin Triglycerides Cholesterol LDL Cholesterol, Calc HDL Cholesterol Urine Color Urine Appearance Urine pH Ur Specific [place] Urine Protein Urine Glucose (UA) Urine Ketones Urine Blood Urine Nitrite Ur Leukocyte Esterase Urine RBC Urine WBC Ur Squamous Epith Cells Urine Bacteria Hyaline Casts Urine Opiates Screen Ur Buprenorphine Scrn Ur Oxycodone Screen Urine Methadone Screen Urine Fentanyl Screen Ur Barbiturates Screen Ur Phencyclidine Scrn Ur Amphetamines Screen U Benzodiazepines Scrn Urine Cocaine Screen U Marijuana (THC) Screen Ethyl Alcohol Influenza Type A (PCR) Influenza Type B (PCR) RSV RNA Qual (PCR) SARS-CoV-2 RNA (RT-PCR) 06/13/24 06/13/24 06/13/24 13:32 16:51 21:06 WBC RBC Hgb Hct MCV MCH MCHC RDW Plt Count MPV Immature Gran % (Auto) Neut % (Auto) Lymph % (Auto) [place] % (Auto) Eos % (Auto) Baso % (Auto) Lymph # (Auto) [place] # (Auto) Eos # (Auto) Baso # (Auto) Abs Immat Gran (auto) Absolute Neuts (auto) Absolute Nucleated RBC Nucleated RBC % (auto) Sodium 137 Potassium 4.4 Chloride 102 Carbon Dioxide 26 Anion Gap 13 BUN 25 H Creatinine 1.15 Estim Creat Clear Calc 65.4 Estimated GFR > 60 POC Glucose 158 H 239 H Random Glucose 204 H Estimat Average Glucose Hemoglobin A1c % Calcium 9.6 Total Bilirubin 0.4 AST 29 ALT 41 H Alkaline Phosphatase 81 Troponin I High Sens Total Protein 8.2 H Albumin 4.2 Triglycerides Cholesterol LDL Cholesterol, Calc HDL Cholesterol Urine Color Urine Appearance Urine pH Ur Specific [place] Urine Protein Urine Glucose (UA) Urine Ketones Urine Blood Urine Nitrite Ur Leukocyte Esterase Urine RBC Urine WBC Ur Squamous Epith Cells Urine Bacteria Hyaline Casts Urine Opiates Screen Ur Buprenorphine Scrn Ur Oxycodone Screen Urine Methadone Screen Urine Fentanyl Screen Ur Barbiturates Screen Ur Phencyclidine Scrn Ur Amphetamines Screen U Benzodiazepines Scrn Urine Cocaine Screen U Marijuana (THC) Screen Ethyl Alcohol Influenza Type A (PCR) Influenza Type B (PCR) RSV RNA Qual (PCR) SARS-CoV-2 RNA (RT-PCR) 06/14/24 06/14/24 06/14/24 07:41 08:12 12:01 WBC RBC Hgb Hct MCV MCH MCHC RDW Plt Count MPV Immature Gran % (Auto) Neut % (Auto) Lymph % (Auto) [place] % (Auto) Eos % (Auto) Baso % (Auto) Lymph # (Auto) [place] # (Auto) Eos # (Auto) Baso # (Auto) Abs Immat Gran (auto) Absolute Neuts (auto) Absolute Nucleated RBC Nucleated RBC % (auto) Sodium Potassium Chloride Carbon Dioxide Anion Gap BUN Creatinine Estim Creat Clear Calc Estimated GFR POC Glucose 320 H 124 H Random Glucose Estimat Average Glucose 192 Hemoglobin A1c % 8.3 H Calcium Total Bilirubin AST ALT Alkaline Phosphatase Troponin I High Sens Total Protein Albumin Triglycerides 237 H Cholesterol 154 LDL Cholesterol, Calc 76 HDL Cholesterol 31 L Urine Color Urine Appearance Urine pH Ur Specific [place] Urine Protein Urine Glucose (UA) Urine Ketones Urine Blood Urine Nitrite Ur Leukocyte Esterase Urine RBC Urine WBC Ur Squamous Epith Cells Urine Bacteria Hyaline Casts Urine Opiates Screen Ur Buprenorphine Scrn Ur Oxycodone Screen Urine Methadone Screen Urine Fentanyl Screen Ur Barbiturates Screen Ur Phencyclidine Scrn Ur Amphetamines Screen U Benzodiazepines Scrn Urine Cocaine Screen U Marijuana (THC) Screen Ethyl Alcohol Influenza Type A (PCR) Influenza Type B (PCR) RSV RNA Qual (PCR) SARS-CoV-2 RNA (RT-PCR) 06/14/24 06/14/24 06/15/24 17:12 20:50 07:29 WBC RBC Hgb Hct MCV MCH MCHC RDW Plt Count MPV Immature Gran % (Auto) Neut % (Auto) Lymph % (Auto) [place] % (Auto) Eos % (Auto) Baso % (Auto) Lymph # (Auto) [place] # (Auto) Eos # (Auto) Baso # (Auto) Abs Immat Gran (auto) Absolute Neuts (auto) Absolute Nucleated RBC Nucleated RBC % (auto) Sodium Potassium Chloride Carbon Dioxide Anion Gap BUN Creatinine Estim Creat Clear Calc Estimated GFR POC Glucose 209 H 278 H 272 H Random Glucose Estimat Average Glucose Hemoglobin A1c % Calcium Total Bilirubin AST ALT Alkaline Phosphatase Troponin I High Sens Total Protein Albumin Triglycerides Cholesterol LDL Cholesterol, Calc HDL Cholesterol Urine Color Urine Appearance Urine pH Ur Specific [place] Urine Protein Urine Glucose (UA) Urine Ketones Urine Blood Urine Nitrite Ur Leukocyte Esterase Urine RBC Urine WBC Ur Squamous Epith Cells Urine Bacteria Hyaline Casts Urine Opiates Screen Ur Buprenorphine Scrn Ur Oxycodone Screen Urine Methadone Screen Urine Fentanyl Screen Ur Barbiturates Screen Ur Phencyclidine Scrn Ur Amphetamines Screen U Benzodiazepines Scrn Urine Cocaine Screen U Marijuana (THC) Screen Ethyl Alcohol Influenza Type A (PCR) Influenza Type B (PCR) RSV RNA Qual (PCR) SARS-CoV-2 RNA (RT-PCR) 06/15/24 06/15/24 06/15/24 11:45 16:51 21:01 WBC RBC Hgb Hct MCV MCH MCHC RDW Plt Count MPV Immature Gran % (Auto) Neut % (Auto) Lymph % (Auto) [place] % (Auto) Eos % (Auto) Baso % (Auto) Lymph # (Auto) [place] # (Auto) Eos # (Auto) Baso # (Auto) Abs Immat Gran (auto) Absolute Neuts (auto) Absolute Nucleated RBC Nucleated RBC % (auto) Sodium Potassium Chloride Carbon Dioxide Anion Gap BUN Creatinine Estim Creat Clear Calc Estimated GFR POC Glucose 174 H 214 H 190 H Random Glucose Estimat Average Glucose Hemoglobin A1c % Calcium Total Bilirubin AST ALT Alkaline Phosphatase Troponin I High Sens Total Protein Albumin Triglycerides Cholesterol LDL Cholesterol, Calc HDL Cholesterol Urine Color Urine Appearance Urine pH Ur Specific [place] Urine Protein Urine Glucose (UA) Urine Ketones Urine Blood Urine Nitrite Ur Leukocyte Esterase Urine RBC Urine WBC Ur Squamous Epith Cells Urine Bacteria Hyaline Casts Urine Opiates Screen Ur Buprenorphine Scrn Ur Oxycodone Screen Urine Methadone Screen Urine Fentanyl Screen Ur Barbiturates Screen Ur Phencyclidine Scrn Ur Amphetamines Screen U Benzodiazepines Scrn Urine Cocaine Screen U Marijuana (THC) Screen Ethyl Alcohol Influenza Type A (PCR) Influenza Type B (PCR) RSV RNA Qual (PCR) SARS-CoV-2 RNA (RT-PCR) 06/16/24 07:48 WBC RBC Hgb Hct MCV MCH MCHC RDW Plt Count MPV Immature Gran % (Auto) Neut % (Auto) Lymph % (Auto) [place] % (Auto) Eos % (Auto) Baso % (Auto) Lymph # (Auto) [place] # (Auto) Eos # (Auto) Baso # (Auto) Abs Immat Gran (auto) Absolute Neuts (auto) Absolute Nucleated RBC Nucleated RBC % (auto) Sodium Potassium Chloride Carbon Dioxide Anion Gap BUN Creatinine Estim Creat Clear Calc Estimated GFR POC Glucose 286 H Random Glucose Estimat Average Glucose Hemoglobin A1c % Calcium Total Bilirubin AST ALT Alkaline Phosphatase Troponin I High Sens Total Protein Albumin Triglycerides Cholesterol LDL Cholesterol, Calc HDL Cholesterol Urine Color Urine Appearance Urine pH Ur Specific [place] Urine Protein Urine Glucose (UA) Urine Ketones Urine Blood Urine Nitrite Ur Leukocyte Esterase Urine RBC Urine WBC Ur Squamous Epith Cells Urine Bacteria Hyaline Casts Urine Opiates Screen Ur Buprenorphine Scrn Ur Oxycodone Screen Urine Methadone Screen Urine Fentanyl Screen Ur Barbiturates Screen Ur Phencyclidine Scrn Ur Amphetamines Screen U Benzodiazepines Scrn Urine Cocaine Screen U Marijuana (THC) Screen Ethyl Alcohol Influenza Type A (PCR) Influenza Type B (PCR) RSV RNA Qual (PCR) SARS-CoV-2 RNA (RT-PCR) DS: Summary Hospital Course Hospital Course: Patient is a 59 year old male with hx of MDD, PTSD, and cocaine use d/o, who presented to [facility] ER due to suicidal ideation secondary to increased depression. Per crisis report, patient arrived to ER via ambulance with complaints of chest pain. Patient also reported that he was struggling with suicidal ideation and depression. Patient reports he has not taken his medications within the last week and began experiencing chest pain. He also reports continuous cocaine use. Patient denied SI/HI. Observed responding to internal stimuli. During admission assessment, patient presents alert and oriented x3. calm and cooperative. Patient reports feeling depressed ; patient stated, I'm having suicidal thoughts and hearing voices. They are telling me to cut myself . Patient reports he has not been taking his prescribed medications. He reports this is due to not being able to find what pharmacy were sent to . Patient reports he would like to be restarted on his medications and be referred to a substance abuse program. Denies HI/VH. Plan: CV 15 minute safety checks Continue home medications Obtain collateral Encourage groups Referral to substance abuse program Discharge planning anxious. add seroquel 25 PRNs. c/o nasal mucosal infection. add bacitracin. Active on unit. attending some groups. Patient reports feeling better today with some anxiety; pt denies SI/HI/VH/AH. Patient reports he plans on attending NA meetings to maintain his sobriety. He plans on following up with outpatient providers. 3 day up on 06/15/24. Status at Discharge Cognitive/behavioral status at discharge: Patient has insight and demonstrates good judgment in terms of wanting to pursue treatment. Patient has a safety plan that includes presenting to the closest ER or calling 911 if feeling unsafe. Functional status at discharge: independent ambulation Overall status at discharge: patient is back to baseline Time Spent with Patient Time attestation: Total time managing care of this patient today __10__ minutes. Time spent: Less than 30 minutes Discharge Plan Discharge Anticipated Discharge Date/Time: 06/16/24 10:30 Patient Disposition: Home, Self-Care Discharge Diagnosis: MDD, PTSD, Cocaine use d/o Referrals: Therapy & Psychiatry [Other] - 1 Week (*You can present to the clinic above, Thursday through Thursday during the hours of 8am and 8pm, in order to obtain outpatient mental health providers. ) Therapy & Psychaitry [Other] - 1 Week (*You can present to the clinic above, Thursday through Thursday during the hours of 10am and 12pm, in order to obtain outpatient mental health providers. ) Yoel Parrish MD [Physician] - 1 Week (06-16-24 Your primary care provider will be contacting you directly with the date and time of your follow up appt.) Discharge Medications: New insulin lispro [Admelog U-100 Insulin lispro] 100 unit/mL Solution See Protocol subcut QIDACHS 30 Days Qty: 10 0RF Protocol: Insulin Correction Scale Less than or equal to 110 ---- Give (units): 0 111 to 150 Give (units): 0 151 to 200 Give (units): 2 201 to 250 Give (units): 4 251 to 300 Give (units): 6 301 to 350 Give (units): 8 Greater than 350 Give (units): 10 Call MD if Blood Glucose > : 350 Continued omeprazole 20 mg capsule,delayed release(DR/EC) 20 mg PO DAILY@0630 fluticasone furoate-vilanterol 100-25 mcg/dose blister with device 1 inh INHALATION DAILY trazodone 50 mg tablet 50 mg PO BEDTIME 30 Days Qty: 30 0RF hydroxyzine pamoate 50 mg capsule 50 mg PO BID 30 Days Qty: 60 0RF melatonin 10 mg Tablet 10 mg PO BEDTIME insulin glargine [Lantus U-100 Insulin] 100 unit/mL solution 15 unit subcut BEDTIME atorvastatin 20 mg Tablet 20 mg PO BEDTIME 30 Days Qty: 30 0RF quetiapine 300 mg Tablet 300 mg PO BEDTIME 30 Days Qty: 30 0RF quetiapine 100 mg Tablet 100 mg PO DAILY 30 Days Qty: 30 0RF metformin 1,000 mg tablet 1,000 mg PO BID 30 Days Qty: 60 0RF gabapentin 300 mg capsule 300 mg PO BID 30 Days Qty: 60 0RF albuterol sulfate [Ventolin HFA] 90 mcg/actuation HFA aerosol inhaler 2 puff INHALATION QID PRN (Reason: wheezing) 30 Days Qty: 8.5 0RF paroxetine HCl 40 mg tablet 40 mg PO DAILY 30 Days Qty: 30 0RF Januvia 100 mg tablet 100 mg PO DAILY 30 Days Qty: 30 0RF Discharge Orders: Discharge Order (Routine); Ordered 06/16/24 Ordered By: Bing Li Diet: Regular diet Activity on Discharge: As tolerated Stand Alone Forms: Patient Portal Discharge page, Community Support Print Language: Malian Activity Restrictions/Additional Instructions: You were seen in our Emergency Department today for treatment of a behavioral health issue. It is important after your visit that you follow up with either your behavioral health provider or a primary care doctor within 7 days.? If you have trouble finding a therapist you can reach out to [address] [phone] The [employer] Suicide and Crisis Lifeline can be reached 7 days a week 24 hours a day.? Call [phone] to speak with someone.? Return for any worsening symptoms or concerns such as thoughts of self harm or harm to others. Please call 911 if you feel your mental health is worsening.? Care Plan Goals: Maintain mood and safe behaviors Take medications as prescribed Continue to pursue sobriety Practice coping skills Continue with outpatient providers and reach out to them as needed Health Concerns: Mood stability and behaviors Sobriety Plan of Treatment: Follow up with your PCP, psychiatric provider and other outpatient providers regarding above concerns Take medications as prescribed Assessment: Patient has insight and demonstrates good judgment in terms of wanting to pursue treatment. Patient has a safety plan that includes presenting to the closest ER or calling 911 if feeling unsafe. Patient Instructions: Cocaine Abuse (ED), Depression (ED) Discharge Date/Time: 06/16/24 10:20
[2024-06-15] MEDS: QUEtiapine Fumarate 50 MG TABLET PO (16:59)
[2024-06-15 17:00] LABS: Glucose, Whole Blood 214 mg/dL (60-115)
[2024-06-15 19:20] VITALS: BP 123/66; PULSE 82; RESP 16; TEMP 36.6; O2SAT 98
[2024-06-15 21:06] LABS: Glucose, Whole Blood 190 mg/dL (60-115)
[2024-06-15] MEDS: Insulin Glargine,Hum.rec.anlog 100 UNIT/ML 10 ML VIAL 15 UNIT SUBCUT (21:20)
[2024-06-15] MEDS: Melatonin 3 MG TABLET 9 MG PO (21:22)
[2024-06-15] MEDS: QUEtiapine Fumarate 300 MG TABLET PO (21:22)
[2024-06-15] MEDS: Atorvastatin Calcium 20 MG TABLET PO (21:23)
[2024-06-15] MEDS: traZODone HCL 50 MG TABLET PO (21:23)
[2024-06-16] MEDS: Omeprazole 20 MG CAPSULE.DR PO (06:43)
[2024-06-16 07:56] LABS: Glucose, Whole Blood 286 mg/dL (60-115)
[2024-06-16 08:00] VITALS: BP 148/72; PULSE 97; RESP 16; TEMP 36.9; O2SAT 98
[2024-06-16] MEDS: Insulin Lispro 100 UNIT/ML 3 ML VIAL SUBCUT (08:38)
[2024-06-16] MEDS: Gabapentin 300 MG CAPSULE PO (08:39)
[2024-06-16] MEDS: SITagliptin Phosphate 100 MG TABLET PO (08:39)
[2024-06-16] MEDS: hydrOXYzine HCL 50 MG TABLET PO (08:39)
[2024-06-16] MEDS: QUEtiapine Fumarate 100 MG TABLET PO (08:39)
[2024-06-16] MEDS: metFORMIN HCl 1,000 MG TABLET 1000 MG PO (08:40)
[2024-06-16] MEDS: PARoxetine HCL 40 MG TABLET PO (08:40)
[2024-06-16] MEDS: Acetaminophen 325 MG TABLET 650 MG PO (08:50)
[2024-06-16] MEDS: Fluticasone/Vilanterol 100/25 BLST.W.DEV 1 PUFF INHALE (08:52)
[2024-06-16] MEDS: Bacitracin Oint 14 GM TUBE 1 APPL TOPICAL (08:52)
[2024-06-16] MEDS: Naloxone HCl Nasal TAKE HOME 4 MG SPRAY 8 MG NOSTRILALT (08:54)
== END 2024-06-16 10:20 | disposition home or self-care (01) | DRG 885 ==
LOC: HO.ED 11:47 → HO.PADLT16 06-13 12:10
PROVIDERS: Admitting Provider Registered Nurse; Emergency Provider Internal Medicine; Responsible Provider Registered Nurse; Visit Provider Psychiatry & Neurology Psychiatry
DX: F33.1 Major depressive disorder, recurrent, moderate (principal); F17.210 Nicotine dependence, cigarettes, uncomplicated; F43.10 Post-traumatic stress disorder, unspecified; F14.90 Cocaine use, unspecified, uncomplicated; F14.10 Cocaine abuse, uncomplicated; Z71.6 Tobacco abuse counseling; Z20.822 Contact with and (suspected) exposure to COVID-19; Z79.4 Long term (current) use of insulin; Z79.51 Long term (current) use of inhaled steroids; Z79.84 Long term (current) use of oral hypoglycemic drugs; Z79.899 Other long term (current) drug therapy
CPT/HCPCS: 0241U; 36415; 71045; 80053; 80061; 80307; 81001; 82947; 83036; 84484; 85025; 93005; 99285; S9485

== ENCOUNTER → 2024-06-11 02:57 | Outpatient (BNV) | payer OTHER, SELFPAY | PROVIDERS: Emergency Provider Internal Medicine; Visit Provider Internal Medicine Cardiovascular Disease | DX: R07.9 Chest pain, unspecified (principal) | CPT/HCPCS: 93010 ==

== ENCOUNTER → 2024-06-11 03:22 | Outpatient (BNV) | payer OTHER, SELFPAY | PROVIDERS: Emergency Provider Internal Medicine; Visit Provider Radiology Diagnostic Radiology | DX: R07.9 Chest pain, unspecified (principal) | CPT/HCPCS: 71045 ==

== ENCOUNTER → 2024-06-13 12:10 | Outpatient (BNV) | payer OTHER, SELFPAY | PROVIDERS: Admitting Provider Registered Nurse; Emergency Provider Internal Medicine; Responsible Provider Registered Nurse; Visit Provider Registered Nurse | DX: F33.1 Major depressive disorder, recurrent, moderate (principal); F14.10 Cocaine abuse, uncomplicated; F43.11 Post-traumatic stress disorder, acute | CPT/HCPCS: 90792; 99231; 99238 ==

== ENCOUNTER 2024-06-21 03:01 | Emergency (ER) | payer OTHER, SELFPAY ==
--- NOTE | ~2024-06-21 | CT_ITS ---
CLINICAL HISTORY: Closed head injury CT head without contrast Comparison: None Findings: No intra-axial mass, midline shift, hydrocephalus, or acute hemorrhage. No significant atrophy-like change or white matter disease. There is no sinus or mastoid fluid. The orbits are unremarkable. No skull fracture. IMPRESSION: 1. No acute intracranial findings. This document has been electronically signed by: Doug Price MD on 06/21/2024 06:31:23
[2024-06-21 03:12] VITALS: BP 155/73; PULSE 104; RESP 18; TEMP 36.6; O2SAT 94; BMI 23.8
--- NOTE | 2024-06-21 04:31 | ED.PSYCH ---
HPI - Psych General Chief Complaint: Psychiatric Symptoms Stated Complaint: SI Time Seen by Provider: 06/21/24 03:44 Source: patient Mode of arrival: ambulatory Limitations: no limitations History of Present Illness ED Provider: DR. Schmidt HPI Narrative: 59-year-old male with history of substance abuse, homelessness, PTSD, anxiety, and diabetes presented with SI and feeling rest patient is off his medication for 2 days, stated that he felt so depressed that he punched himself in the left eye trying to kill himself. No visual or auditory hallucination. Related Data Home Medications ?Medication ?Instructions ?Recorded ?Confirmed fluticasone furoate 100 1 inh inhalation DAILY 04/12/24 06/11/24 mcg-vilanterol 25 mcg/dose inhalation powder omeprazole 20 mg capsule,delayed 20 mg PO DAILY@0630 04/12/24 06/11/24 release melatonin 10 mg tablet 10 mg PO BEDTIME 06/11/24 06/11/24 insulin glargine 100 unit/mL 15 unit subcut BEDTIME 06/12/24 06/12/24 subcutaneous solution (Lantus U-100 Insulin) Previous Rx's ?Medication ?Instructions ?Recorded hydroxyzine pamoate 50 mg capsule 50 mg PO BID 30 days #60 caps 04/20/24 trazodone 50 mg tablet 50 mg PO BEDTIME 30 days #30 tabs 04/20/24 albuterol sulfate 90 mcg/actuation 2 puff inhalation QID PRN wheezing 06/15/24 aerosol inhaler (Ventolin HFA) 30 days #8.5 grams atorvastatin 20 mg tablet 20 mg PO BEDTIME 30 days #30 tabs 06/15/24 gabapentin 300 mg capsule 300 mg PO BID 30 days #60 caps 06/15/24 insulin lispro 100 unit/mL See Protocol subcut QIDACHS 30 06/15/24 subcutaneous solution (Admelog days #10 mL U-100 Insulin lispro) metformin 1,000 mg tablet 1,000 mg PO BID 30 days #60 tabs 06/15/24 paroxetine HCl 40 mg tablet 40 mg PO DAILY 30 days #30 tabs 06/15/24 quetiapine 100 mg tablet 100 mg PO DAILY 30 days #30 tabs 06/15/24 quetiapine 300 mg tablet 300 mg PO BEDTIME 30 days #30 tabs 06/15/24 sitagliptin phosphate 100 mg 100 mg PO DAILY 30 days #30 tabs 06/15/24 tablet (Januvia) Allergies Allergy/AdvReac Type Severity Reaction Status Date / Time glipizide [GLIPIZIDE] Allergy Intermediate ITCHY Verified 06/21/24 03:15 oxycodone [From TYLOX] AdvReac Intermediate CHEST PAINS Verified 06/21/24 03:15 Review of Systems Review of Systems: All other systems are reviewed and are negative Constitutional: Reports as per HPI and Reports no additional constitutional complaints Eyes: Reports as per HPI and Reports no additional eye complaints Reports system reviewed and no additional complaints, except as documented Cardiovascular: Reports as per HPI and Reports no additional cardiovascular complaints Respiratory: Reports as per HPI and Reports no additional respiratory complaints Gastrointestinal: Reports as per HPI and Reports no additional gastrointestinal complaints Genitourinary: Reports no additional female genitourinary complaints Musculoskeletal: Reports no additional musculoskeletal complaints Skin/Breast: Reports system reviewed and no additional complaints, except as docu Psychiatric: Reports no additional psychiatric complaints Endocrine: Reports no additional endocrine complaints Hematologic/Lymphatic: Reports no additional hematologic/lymphatic complaints Allergic/Immunologic: Reports no additional allergic/immunologic complaints Reports system reviewed and no additional complaints, except as documented and Reports Abnormal speech present [facility] Past Medical History Medical History Depression MDD (major depressive disorder), recurrent episode, moderate Cocaine use disorder Substance-induced psychotic disorder Anxiety Diabetes Social History Social History Household Members: None Housing: Homeless Do you presently have visiting nurse or other home services: No Unable to assess alcohol history related to: Refusing to respond Alcohol intake: current Alcohol intake frequency: a few times a month Alcohol type: beer Patient Tobacco Use Status: Current everyday Tobacco user Tobacco use type: Cigarette Cigarette Packs Per Day: 1 Cigarettes Per Day: 20.0 Years Smoked: 40 e-Cigarette/Vaping Use: Former Use Second Hand Smoke Exposure: No Substance Use Type: Crack/Cocaine Advance Directives: Yes Advance Directives on File: Yes Advance Directives Date on File: 10/24/21 Do you have a plan to hurt others: No Plan service: No Sexual orientation: Straight/Heterosexual Physical Exam Vital Signs: Vital Signs: Last Vital Signs Temp 97.7 F 06/21/24 06:00 Pulse 97 06/21/24 12:00 Resp 16 06/21/24 12:00 BP 161/78 H 06/21/24 12:00 Pulse Ox 98 06/21/24 12:00 O2 Del Method Room Air 06/21/24 12:00 BMI result Body Mass Index 23.8 Vital signs have been reviewed and appear to be correct. Blood pressure elevated. Heart rate elevated, Respiratory rate normal. Temperature normal. Oxygen saturation normal. Appearance: Alert. Oriented X3. No acute distress. Head: Normal external exam. Normocephalic. Atraumatic. No Gilbert signs noted. No raccoon eyes noted Eyes: Patient reports no blurry vision, VA 20/25L, 20/25 R General: appearance normal, both eyes and all related structures Visual Dong: normal visual dong by confrontation Alignment and Position: alignment normal and position normal Periorbital: periorbital findings normal Eyelids: Yes eyelids normal Conjunctivae: Left subconjunctival hemorrhage. Sclerae: sclerae normal Corneas: corneas normal Pupils: Equal, round and reactive pupils present and Pupil accommodation reflex normal EOM: EOM abnormal (Limited abduction of right eye) and No Nystagmus present ENT: TM's Normal. Pharynx normal. Uvula midline. Moist mucous membranes. No trismus noted. No drooling noted. No muffled voice noted. Neck: Normal inspection. Neck supple. FROM. No adenopathy. Thyroid Normal. No meningeal signs. No neck mass noted. CVS: Normal heart rate and rhythm. Heart sound normal. No murmurs noted. Pulses normal throughout. Respiratory: No respiratory distress. Painless inspiration. Breath sounds normal. No wheezes/rales/rhonchi noted. Chest nontender. No accessory muscle usage noted or decreased air movement noted. Abdomen: Soft and nontender. Bowel sounds normal in all 4 quadrants. No distention noted. No organomegaly noted. No visible injury noted. Back: No CVA tenderness. Full range of motion noted. Skin: Skin warm and dry. Normal skin color. Normal skin turgor. No rashes/lesions/lacerations noted. Extremities: No lower extremity edema. Extremities exhibit normal range of motion. Extremities nontender. Neuro: Oriented X 3. Cranial nerve exam: II-XII are grossly intact No motor deficit. No sensory deficit. Reflexes normal. Patient Orientation: Person, Place, Time and Situation, okay hygiene and grooming. Fair eye contact, attentive, no tics or tremors. Level of Consciousness: Awake, Appropriate and Alert Patient Behavior: Appropriate, Guarded, Cooperative and Anxious Mood Description: Constricted, Blunted and Apprehensive Affect Description: Constricted, Blunted and Apprehensive Patient Cognition Impaired: No Ability to Follow Directions: Excellent Speech Pattern: Clear, Appropriate and Spontaneous Speech, nonpressured, spontaneous with regular rate and rhythm, normal volume and prosody. No dysarthria. Memory Description: Intact, Immediate Intact and Short Term Intact Hallucinations: None Delusions: Not Present Thought Process: Intact Thought Content: positive for Intact, positive for Logical, + SI with vague plan. denies Homicidal Ideation. Depressive Symptoms: Not present. Judgement and Insight: Limited but adequate. Course Reevaluation(s) Reevaluation #1: Will start physician observation, await for care team. Time: 06:00 Reevaluation #2: Seen and evaluated by care team, patient was made section 12, bed search is underway. Time: 06:59 Reevaluation #3: Time: 14:24 Date: 06/21/24 Provider: Sheldon Ackerman MD Patient in physician observation for psychiatric evaluation.? No acute events reported overnight. No current complaints. VS stable.? Patient is in bed search status/pending CARE team evaluation. Will continue to monitor. Additional Reevaluation(s): 14:25 patient was seen by crisis he was cleared for discharge no SI no HI at this time Dr Ackerman Medications Administered Discontinued Medications Generic Name Dose Route Start Last Admin Trade Name Conner PRN Reason Stop Dose Admin Lorazepam 1 mg 06/21/24 09:07 06/21/24 09:20 Lorazepam 1 Mg Tablet PO 06/21/24 09:08 1 mg ONCE ONE Administration Nicotine 21 mg 06/21/24 09:08 06/21/24 09:20 Nicotine 21 Mg Patch.Td24 TRANSDERMA 06/21/24 09:09 21 mg ONCE ONE Administration Medical Decision Making Differential Diagnosis Differential Diagnoses: The differential diagnosis associated with the presentation includes (Medical clearance, subconjunctival hemorrhage, intracranial bleed, visual hallucination.) Admission/Observation Consideration of admission/observation: Escalation of care including admission/observation considered Lab Data 06/21/24 05:07 06/21/24 05:07 Labs: Lab Results 06/21/24 06/21/24 Range/Units 05:07 13:10 WBC 11.2 H (4.8-10.8) X10*3/uL RBC 4.50 L (4.60-5.80) X10*6/uL Hgb 12.9 L (14.0-18.0) g/dl Hct 37.2 L (42.0-52.0) % MCV 82.7 (80.0-98.0) fL MCH 28.7 (27.0-33.0) pg MCHC 34.7 (31.0-36.0) g/dl RDW 12.8 (11.0-16.0) % Plt Count 240 (160-400) X10*3/uL MPV 9.3 L (9.4-12.4) fL Immature Gran % (Auto) 0.4 (0.0-0.4) % Neut % (Auto) 73.8 H (45-73) % Lymph % (Auto) 15.4 L (20-40) % Garrard % (Auto) 9.7 (2-11) % Eos % (Auto) 0.5 (0-4) % Baso % (Auto) 0.2 (0-2) % Lymph # (Auto) 1.7 (1.2-4.9) X10*3/uL Garrard # (Auto) 1.1 (0.1-1.2) X10*3/uL Eos # (Auto) 0.1 (0.0-0.4) X10*3/uL Baso # (Auto) 0.0 (0.0-0.2) X10*3/uL Abs Immat Gran (auto) 0.04 H (0.00-0.03) X10*3/uL Absolute Neuts (auto) 8.3 (2.0-8.3) x10*3/uL Absolute Nucleated RBC 0.000 (0.0-0.012) X10*3/uL Nucleated RBC % (auto) 0.0 (0.0-0.2) /100WBC Sodium 136 (135-145) mmol/L Potassium 3.9 (3.3-5.1) mmol/L Chloride 102 (96-108) mmol/L Carbon Dioxide 23 (22-29) mmol/L Anion Gap 15 (12-20) BUN 22 H (9-16) mg/dL Creatinine 1.07 (0.5-1.4) mg/dL Estim Creat Clear Calc 70.3 Estimated GFR > 60 Random Glucose 283 H (60-115) mg/dL Calcium 8.8 D (8.4-10.2) mg/dL Urine Opiates Screen Not Detected (Not Detect) Ur Buprenorphine Scrn Not Detected (Not Detect) ng/mL Ur Oxycodone Screen Not Detected (Not Detect) ng/mL Urine Methadone Screen Not Detected (Not Detect) ng/mL Urine Fentanyl Screen Not Detected (Not Detect) Ur Barbiturates Screen Not Detected (Not Detect) Ur Phencyclidine Scrn Not Detected (Not Detect) Ur Amphetamines Screen Not Detected (Not Detect) U Benzodiazepines Scrn Not Detected (Not Detect) Urine Cocaine Screen POSITIVE H (Not Detect) U Marijuana (THC) Screen Not Detected (Not Detect) Independent Interpretation I performed an independent interpretation of an: CT Scan (Head: No acute intracranial pathology.) Radiology Impression Discussion of test interpretation with radiology: I have reviewed the radiologist's reading. Discharge Plan Discharge Clinical Impression: Substance abuse, Suicidal ideation Patient Disposition: Home, Self-Care Instructions: Depression (DC), Polysubstance Abuse (ED) Prescriptions: No Action omeprazole 20 mg capsule,delayed release(DR/EC) 20 mg PO DAILY@0630 fluticasone furoate-vilanterol 100-25 mcg/dose blister with device 1 inh INHALATION DAILY trazodone 50 mg tablet 50 mg PO BEDTIME 30 Days Qty: 30 0RF hydroxyzine pamoate 50 mg capsule 50 mg PO BID 30 Days Qty: 60 0RF melatonin 10 mg Tablet 10 mg PO BEDTIME insulin glargine [Lantus U-100 Insulin] 100 unit/mL solution 15 unit subcut BEDTIME insulin lispro [Admelog U-100 Insulin lispro] 100 unit/mL Solution See Protocol subcut QIDACHS 30 Days Qty: 10 0RF Protocol: Insulin Correction Scale Less than or equal to 110 ---- Give (units): 0 111 to 150 Give (units): 0 151 to 200 Give (units): 2 201 to 250 Give (units): 4 251 to 300 Give (units): 6 301 to 350 Give (units): 8 Greater than 350 Give (units): 10 Call MD if Blood Glucose > : 350 atorvastatin 20 mg Tablet 20 mg PO BEDTIME 30 Days Qty: 30 0RF quetiapine 300 mg Tablet 300 mg PO BEDTIME 30 Days Qty: 30 0RF quetiapine 100 mg Tablet 100 mg PO DAILY 30 Days Qty: 30 0RF metformin 1,000 mg tablet 1,000 mg PO BID 30 Days Qty: 60 0RF gabapentin 300 mg capsule 300 mg PO BID 30 Days Qty: 60 0RF albuterol sulfate [Ventolin HFA] 90 mcg/actuation HFA aerosol inhaler 2 puff INHALATION QID PRN (Reason: wheezing) 30 Days Qty: 8.5 0RF paroxetine HCl 40 mg tablet 40 mg PO DAILY 30 Days Qty: 30 0RF Januvia 100 mg tablet 100 mg PO DAILY 30 Days Qty: 30 0RF Interventions: [place]-Suicide Risk Severity Scale Last Done: 06/21/24 03:59 Print Language: Hungarian
[2024-06-21 05:12] LABS: Basophils Percent Auto 0.2 % (0-2); Eosinophils Absolute Auto 0.1 X10*3/uL (0.0-0.4); Eosinophils Percent Auto 0.5 % (0-4); Hematocrit 37.2 % (42.0-52.0); Hemoglobin 12.9 g/dl (14.0-18.0); Imm Gran Abs Auto 0.04 X10*3/uL (0.00-0.03); Imm Gran Pct Auto 0.4 % (0.0-0.4); Lymphocytes Absolute Auto 1.7 X10*3/uL (1.2-4.9); Lymphocytes Percent Auto 15.4 % (20-40); MANUAL DIFF FLAG NO; Mean Corpuscular HGB Conc 34.7 g/dl (31.0-36.0); Mean Corpuscular Hemoglobin 28.7 pg (27.0-33.0); Mean Corpuscular Volume 82.7 fL (80.0-98.0); Mean Platelet Volume 9.3 fL (9.4-12.4); Monocytes Absolute Auto 1.1 X10*3/uL (0.1-1.2); Monocytes Percent Auto 9.7 % (2-11); Neutrophils Absolute Auto 8.3 x10*3/uL (2.0-8.3); Neutrophils Percent Auto 73.8 % (45-73); Platelet Count 240 X10*3/uL (160-400); Red Cell Distribution Width 12.8 % (11.0-16.0); White Blood Count 11.2 X10*3/uL (4.8-10.8)
[2024-06-21 05:26] LABS: Anion Gap 15 (12-20); Blood Urea Nitrogen 22 mg/dL (9-16); Calcium 8.8 mg/dL (8.4-10.2); Carbon Dioxide 23 mmol/L (22-29); Chloride 102 mmol/L (96-108); Creatinine Clr Calc Pharmacy 70.3; Estimated Glomerular Filt Rate > 60; Glucose Random 283 mg/dL (60-115); Potassium 3.9 mmol/L (3.3-5.1); Sodium 136 mmol/L (135-145)
[2024-06-21 06:00] VITALS: BP 128/62; PULSE 97; RESP 16; TEMP 36.5; O2SAT 96
--- NOTE | 2024-06-21 06:25 | PC.NURSE ---
pt meds inventoried and locked up in pharmacy.
--- NOTE | 2024-06-21 07:16 | PC.NURSE ---
Pt is alert/oriented. Endorses SI, denies AH or VH. Denies drug use to this RN. Reports being off meds x 3 days. Eating breakfast at this time. Skin color normal for ethnicity, ecchymosis noted to right eye but denies pain at this time to eye but reports b/l foot pain. Dual diagnosis bed search per CARE team note. Calm and cooperative
[2024-06-21] MEDS: LORazepam 1 MG TABLET PO (09:20)
[2024-06-21] MEDS: Nicotine 21 MG PATCH.TD24 TRANSDERMA (09:20)
[2024-06-21 09:30] VITALS: BP 131/71; PULSE 96; RESP 18; O2SAT 98
--- NOTE | 2024-06-21 09:31 | PC.NURSE ---
Pt reports anxiety and exit seeking, talking to self despite denying AH or VH. Requesting to smoke cigarette, educated on inability to do so and Nicotine patch ordered and placed to Left upper arm. Pt also given Ativn PO. Continues to endorse SI, bruising to right eye. Denies pain at this time.
--- NOTE | 2024-06-21 10:51 | PC.NURSE ---
Speaking to CARE team at this time
[2024-06-21 12:00] VITALS: BP 161/78; PULSE 97; RESP 16; O2SAT 98
--- NOTE | 2024-06-21 12:39 | PC.NURSE ---
Patient alert and oriented. Cooperative with care. Lungs clear bilat. Respirations even and non-labored. Abdomen soft, non-tender with positive bowel sounds. Snack provided. Positive pedal pulses with no edema noted. Patient aware a urine required for disposition. Remains on constant observation for safety.
[2024-06-21 13:43] LABS: Amphetamine Screen Urine Not Detected (Not Detect); Barbiturates, Urine Not Detected (Not Detect); Benzodiazepines Screen Urine Not Detected (Not Detect); Buprenorphine Scr Not Detected (Not Detect); Cannabinoid Screen Urine Not Detected (Not Detect); Cocaine Screen Urine POSITIVE (Not Detect); Fentanyl, urine Not Detected (Not Detect); Methadone Screen, Urine Not Detected (Not Detect); Opiate Screen Urine Not Detected (Not Detect); Oxycodone Screen Urine Not Detected (Not Detect); Phencyclidine Screen Urine Not Detected (Not Detect)
[2024-06-21 14:39] VITALS: BP 165/87; PULSE 111; RESP 16; TEMP 36.6; O2SAT 98
[2024-06-21 14:57] VITALS: BP 165/87; PULSE 111; RESP 16; TEMP 36.6; O2SAT 98
== END 2024-06-21 14:58 | disposition home or self-care (01) ==
PROVIDERS: Emergency Provider Emergency Medicine
DX: R45.851 Suicidal ideations (principal); F33.1 Major depressive disorder, recurrent, moderate; F14.10 Cocaine abuse, uncomplicated; E11.9 Type 2 diabetes mellitus without complications; R51.9 Headache, unspecified; Z59.00 Homelessness unspecified; Z79.899 Other long term (current) drug therapy; F17.210 Nicotine dependence, cigarettes, uncomplicated; Z51.81 Encounter for therapeutic drug level monitoring; Z79.4 Long term (current) use of insulin
CPT/HCPCS: 36415; 70450; 80048; 80307; 85025; 99284; 99285; S9485

== ENCOUNTER → 2024-06-21 04:29 | Outpatient (BNV) | payer OTHER, SELFPAY | PROVIDERS: Emergency Provider Emergency Medicine; Visit Provider Radiology Vascular & Interventional Radiology | DX: S09.90XA Unspecified injury of head, initial encounter (principal) | CPT/HCPCS: 70450 ==

== ENCOUNTER 2024-06-23 02:00 | Emergency (ER) | payer OTHER, SELFPAY ==
[2024-06-23 02:26] VITALS: BP 142/75; PULSE 86; RESP 20; TEMP 36.6; O2SAT 99
--- NOTE | 2024-06-23 02:27 | MHC.EDTECH ---
this tech assumed care of the pt at this time, the pt was changed over into green gown and hospital pants in triage by RN and security. Pt came into the pod and VS taken and stable, pt calm and cooperative and given snack and drink per their request. Pt educated that a urine sample is needed, pt unable to provide sample at this time.
[2024-06-23 02:37] VITALS: BP 142/75; BP 146/74; PULSE 86; RESP 18; TEMP 36.6; O2SAT 98; BMI 27.7
[2024-06-23 05:49] VITALS: BP 135/73; PULSE 90; RESP 20; TEMP 36.7; O2SAT 98
[2024-06-23 06:10] LABS: Basophils Percent Auto 0.3 % (0-2); Eosinophils Absolute Auto 0.1 X10*3/uL (0.0-0.4); Eosinophils Percent Auto 0.6 % (0-4); Hematocrit 38.6 % (42.0-52.0); Hemoglobin 13.2 g/dl (14.0-18.0); Imm Gran Abs Auto 0.02 X10*3/uL (0.00-0.03); Imm Gran Pct Auto 0.2 % (0.0-0.4); Lymphocytes Absolute Auto 1.8 X10*3/uL (1.2-4.9); Lymphocytes Percent Auto 20.2 % (20-40); MANUAL DIFF FLAG NO; Mean Corpuscular HGB Conc 34.2 g/dl (31.0-36.0); Mean Corpuscular Hemoglobin 28.3 pg (27.0-33.0); Mean Corpuscular Volume 82.8 fL (80.0-98.0); Mean Platelet Volume 9.1 fL (9.4-12.4); Monocytes Absolute Auto 0.7 X10*3/uL (0.1-1.2); Monocytes Percent Auto 8.1 % (2-11); Neutrophils Absolute Auto 6.3 x10*3/uL (2.0-8.3); Neutrophils Percent Auto 70.6 % (45-73); Platelet Count 245 X10*3/uL (160-400); Red Blood Count 4.66 X10*6/uL (4.60-5.80); Red Cell Distribution Width 12.8 % (11.0-16.0)
[2024-06-23 06:21] LABS: Amphetamine Screen Urine Not Detected (Not Detect); Barbiturates, Urine Not Detected (Not Detect); Benzodiazepines Screen Urine Not Detected (Not Detect); Buprenorphine Scr Not Detected (Not Detect); Cannabinoid Screen Urine Not Detected (Not Detect); Cocaine Screen Urine POSITIVE (Not Detect); Fentanyl, urine Not Detected (Not Detect); Methadone Screen, Urine Not Detected (Not Detect); Opiate Screen Urine Not Detected (Not Detect); Oxycodone Screen Urine Not Detected (Not Detect); Phencyclidine Screen Urine Not Detected (Not Detect)
[2024-06-23 06:24] LABS: Acetaminophen LAB < 3 mcg/mL (<30); Salicylate < 5.0 mg/dL (15-30)
[2024-06-23 06:34] LABS: Alanine Aminotransferase 29 U/L (0-40); Albumin Level 3.6 g/dL (3.5-5.0); Alkaline Phosphatase 84 U/L (39-117); Anion Gap 13 (12-20); Aspartate Amino Transferase 34 U/L (5-37); Bilirubin Total 0.7 mg/dL (0.0-1.0); Blood Urea Nitrogen 24 mg/dL (9-16); Calcium 8.9 mg/dL (8.4-10.2); Carbon Dioxide 25 mmol/L (22-29); Chloride 103 mmol/L (96-108); Creatinine Clr Calc Pharmacy 77.8; Estimated Glomerular Filt Rate > 60; Ethanol < 10 mg/dL; Glucose Random 288 mg/dL (60-115); Potassium 3.8 mmol/L (3.3-5.1); Sodium 137 mmol/L (135-145); Total Protein 7.2 g/dL (6.5-8.0)
--- NOTE | 2024-06-23 06:40 | ED.PSYCH ---
HPI - Psych General Chief Complaint: Psychiatric Symptoms Stated Complaint: SI and bilateral leg pain Time Seen by Provider: 06/23/24 04:30 Source: patient and EMS Mode of arrival: EMS Limitations: no limitations History of Present Illness ED Provider: DR. Schmidt HPI Narrative: 59-year-old male with history of substance abuse, homelessness, PTSD, anxiety, and diabetes presented with depression and SI with a plan of cutting his wrist, and feeling, patient is off his medication for few days, stated that he felt so depressed because his last night. Patient is also complaining of bilateral lower extremity pain, patient stated that he walks for long distances, no trauma, no injuries No visual or auditory hallucination. Related Data Home Medications ?Medication ?Instructions ?Recorded ?Confirmed fluticasone furoate 100 1 inh inhalation DAILY 04/12/24 06/23/24 mcg-vilanterol 25 mcg/dose inhalation powder omeprazole 20 mg capsule,delayed 20 mg PO DAILY@0630 04/12/24 06/23/24 release melatonin 10 mg tablet 10 mg PO BEDTIME 06/11/24 06/23/24 insulin glargine 100 unit/mL 15 unit subcut BEDTIME 06/12/24 06/23/24 subcutaneous solution (Lantus U-100 Insulin) Previous Rx's ?Medication ?Instructions ?Recorded hydroxyzine pamoate 50 mg capsule 50 mg PO BID 30 days #60 caps 04/20/24 trazodone 50 mg tablet 50 mg PO BEDTIME 30 days #30 tabs 04/20/24 albuterol sulfate 90 mcg/actuation 2 puff inhalation QID PRN wheezing 06/15/24 aerosol inhaler (Ventolin HFA) 30 days #8.5 grams atorvastatin 20 mg tablet 20 mg PO BEDTIME 30 days #30 tabs 06/15/24 gabapentin 300 mg capsule 300 mg PO BID 30 days #60 caps 06/15/24 insulin lispro 100 unit/mL See Protocol subcut QIDACHS 30 06/15/24 subcutaneous solution (Admelog days #10 mL U-100 Insulin lispro) metformin 1,000 mg tablet 1,000 mg PO BID 30 days #60 tabs 06/15/24 paroxetine HCl 40 mg tablet 40 mg PO DAILY 30 days #30 tabs 06/15/24 quetiapine 100 mg tablet 100 mg PO DAILY 30 days #30 tabs 06/15/24 quetiapine 300 mg tablet 300 mg PO BEDTIME 30 days #30 tabs 06/15/24 sitagliptin phosphate 100 mg 100 mg PO DAILY 30 days #30 tabs 06/15/24 tablet (Januvia) Allergies Allergy/AdvReac Type Severity Reaction Status Date / Time glipizide [GLIPIZIDE] Allergy Intermediate ITCHY Verified 06/23/24 02:41 oxycodone [From TYLOX] AdvReac Intermediate CHEST PAINS Verified 06/23/24 02:41 Review of Systems Review of Systems: all other systems are reviewed and are negative Constitutional: Reports as per HPI and Reports no additional constitutional complaints Eyes: Reports as per HPI and Reports no additional eye complaints Reports system reviewed and no additional complaints, except as documented Cardiovascular: Reports as per HPI and Reports no additional cardiovascular complaints Respiratory: Reports as per HPI and Reports no additional respiratory complaints Gastrointestinal: Reports as per HPI and Reports no additional gastrointestinal complaints Genitourinary: Reports no additional female genitourinary complaints Musculoskeletal: Reports no additional musculoskeletal complaints Skin/Breast: Reports system reviewed and no additional complaints, except as docu Psychiatric: Reports no additional psychiatric complaints Endocrine: Reports no additional endocrine complaints Hematologic/Lymphatic: Reports no additional hematologic/lymphatic complaints Allergic/Immunologic: Reports no additional allergic/immunologic complaints Reports system reviewed and no additional complaints, except as documented and Reports Abnormal speech present FOR[facility]LY [facility], [facility] Past Medical History Medical History Depression MDD (major depressive disorder), recurrent episode, moderate Cocaine use disorder Substance-induced psychotic disorder Anxiety Diabetes Social History Social History Household Members: None Housing: Homeless Do you presently have visiting nurse or other home services: No Unable to assess alcohol history related to: Refusing to respond Alcohol intake: current Alcohol intake frequency: a few times a month Alcohol type: beer Patient Tobacco Use Status: Current everyday Tobacco user Tobacco use type: Cigarette Cigarette Packs Per Day: 1 Cigarettes Per Day: 20.0 Years Smoked: 40 e-Cigarette/Vaping Use: Former Use Second Hand Smoke Exposure: No Substance Use Type: Crack/Cocaine Advance Directives Date on File: 10/24/21 service: No Sexual orientation: Straight/Heterosexual Physical Exam Vital Signs: Vital Signs: Last Vital Signs Temp 98.2 F 06/24/24 10:01 Pulse 97 06/24/24 10:01 Resp 16 06/24/24 10:01 BP 115/61 06/24/24 10:01 Pulse Ox 100 06/24/24 10:01 O2 Del Method Room Air 06/24/24 10:01 BMI result Body Mass Index 27.7 Vital signs have been reviewed and appear to be correct. Blood pressure elevated. Heart rate normal. Respiratory rate normal. Temperature normal. Oxygen saturation normal. Appearance: Alert. Oriented X3. No acute distress. Head: Normal external exam. Normocephalic. Atraumatic. No Gilbert signs noted. No raccoon eyes noted Eyes: PERRLA. EOMI. Conjunctiva and sclera normal. Eyelids normal. ENT: TM's Normal. Pharynx normal. Uvula midline. Moist mucous membranes. No trismus noted. No drooling noted. No muffled voice noted. Neck: Normal inspection. Neck supple. FROM. No adenopathy. Thyroid Normal. No meningeal signs. No neck mass noted. CVS: Normal heart rate and rhythm. Heart sound normal. No murmurs noted. Pulses normal throughout. Respiratory: No respiratory distress. Painless inspiration. Breath sounds normal. No wheezes/rales/rhonchi noted. Chest nontender. No accessory muscle usage noted or decreased air movement noted. Abdomen: Soft and nontender. Bowel sounds normal in all 4 quadrants. No distention noted. No organomegaly noted. No visible injury noted. Back: No CVA tenderness. Full range of motion noted. Skin: Skin warm and dry. Normal skin color. Normal skin turgor. No rashes/lesions/lacerations noted. Extremities: No lower extremity edema. Extremities exhibit normal range of motion. Extremities nontender. Neuro: Oriented X 3. Cranial nerve exam: II-XII are grossly intact No motor deficit. No sensory deficit. Reflexes normal. Patient Orientation: Person, Place, Time and Situation, okay hygiene and grooming. Fair eye contact, attentive, no tics or tremors. Level of Consciousness: Awake, Appropriate and Alert Patient Behavior: Appropriate, Guarded, Cooperative and Anxious Mood Description: Constricted, Blunted and Apprehensive Affect Description: Constricted, Blunted and Apprehensive Patient Cognition Impaired: No Ability to Follow Directions: Excellent Speech Pattern: Clear, Appropriate and Spontaneous Speech, nonpressured, spontaneous with regular rate and rhythm, normal volume and prosody. No dysarthria. Memory Description: Intact, Immediate Intact and Short Term Intact Hallucinations: None Delusions: Not Present Thought Process: Intact Thought Content: positive for Intact, positive for Logical, +SI with plan to cut himself, denies Homicidal Ideation. Depressive Symptoms: Not present. Judgement and Insight: Limited but adequate. Course Reevaluation(s) Reevaluation #1: Will start physician observation, pending care team evaluation, signed out to the upcoming physician colleague Time: 07:00 Reevaluation #2: The patient was signed out to me at change of shift pending a care team evaluation. The patient has been medically cleared. The patient is in physician observation. The patient has been seen by the care team. The patient is a frequent user of the emergency room for psychiatric complaints. The care team has been trying to place the patient in a respite unit. Apparently the patient does not have his regular medications with him and he is supposed to be on a lot of medications. This is making placement difficult. Therefore the care team has not been able to achieve a disposition during the day shift today. The patient will be signed out to the oncoming emergency physician at change of shift and the patient will be maintained in physician observation for now. There has been no acute events otherwise. -- Dr. Srikanth Dao Time: 17:59 Reevaluation #3: Time: 07:21 Date: 06/24/24 Provider: Rita Marion, DO Patient in physician observation for psychiatric evaluation.? No acute events reported overnight. No current complaints. VS stable.? pending CARE team evaluation. Will continue to monitor. Medications Administered Discontinued Medications Generic Name Dose Route Start Last Admin Trade Name Freq PRN Reason Stop Dose Admin Atorvastatin Calcium 20 mg 06/23/24 21:00 06/23/24 20:40 Atorvastatin Calcium 20 Mg Tablet PO 20 mg BEDTIME NILE Administration Fluticasone/Vilanterol 1 puff 06/24/24 09:00 06/24/24 07:47 Fluticasone/Vilanterol 100/25 Blst.W.Dev INHALE Not Given DAILY NILE Gabapentin 300 mg 06/23/24 21:00 06/24/24 07:40 Gabapentin 300 Mg Capsule PO 300 mg BID NILE Administration Hydroxyzine HCl 50 mg 06/23/24 21:00 06/24/24 07:40 Hydroxyzine Hcl 50 Mg Tablet PO 50 mg BID NILE Administration Insulin Glargine 15 unit 06/23/24 21:00 06/23/24 20:41 Insulin Glargine,Hum.Rec.Anlog 100 Unit/Ml 10 Ml Vial SUBCUT 15 unit BEDTIME NILE Administration Insulin Human Lispro 0 unit 06/23/24 16:30 06/24/24 07:41 Insulin Lispro 100 Unit/Ml 3 Ml Vial SUBCUT 2 unit QIDACHS NILE Administration Protocol Melatonin 9 mg 06/23/24 21:00 06/23/24 20:40 Melatonin 3 Mg Tablet PO 9 mg BEDTIME NILE Administration Metformin HCl 1,000 mg 06/23/24 21:00 06/24/24 07:41 Metformin Hcl 1,000 Mg Tablet PO 1,000 mg BID NILE Administration Omeprazole 20 mg 06/24/24 06:30 06/24/24 07:40 Omeprazole 20 Mg Capsule.Dr PO 20 mg DAILY@0630 NILE Administration Paroxetine HCl 40 mg 06/23/24 15:15 06/24/24 07:40 Paroxetine Hcl 40 Mg Tablet PO 40 mg DAILY NILE Administration Quetiapine Fumarate 100 mg 06/23/24 15:15 06/24/24 07:40 Quetiapine Fumarate 100 Mg Tablet PO 100 mg DAILY NILE Administration Quetiapine Fumarate 300 mg 06/23/24 21:00 06/23/24 20:40 Quetiapine Fumarate 300 Mg Tablet PO 300 mg BEDTIME NILE Administration Sitagliptin Phosphate 100 mg 06/24/24 09:00 06/24/24 07:41 Sitagliptin Phosphate 100 Mg Tablet PO 100 mg DAILY NILE Administration Trazodone HCl 50 mg 06/23/24 21:00 06/23/24 20:41 Trazodone Hcl 50 Mg Tablet PO 50 mg BEDTIME NILE Administration Medical Decision Making Differential Diagnosis Differential Diagnoses: The differential diagnosis associated with the presentation includes ( medical clearance, SI, HI, acute psychosis,) Admission/Observation Consideration of admission/observation: Escalation of care including admission/observation considered Lab Data MDM Lab Attestation statement: I reviewed the patient's lab results. 06/23/24 06:04 06/23/24 06:04 Labs: Lab Results 06/23/24 06/23/24 06/23/24 Range/Units 06:04 14:46 17:52 WBC 9.0 (4.8-10.8) X10*3/uL RBC 4.66 (4.60-5.80) X10*6/uL Hgb 13.2 L (14.0-18.0) g/dl Hct 38.6 L (42.0-52.0) % MCV 82.8 (80.0-98.0) fL MCH 28.3 (27.0-33.0) pg MCHC 34.2 (31.0-36.0) g/dl RDW 12.8 (11.0-16.0) % Plt Count 245 (160-400) X10*3/uL MPV 9.1 L (9.4-12.4) fL Immature Gran % (Auto) 0.2 (0.0-0.4) % Neut % (Auto) 70.6 (45-73) % Lymph % (Auto) 20.2 (20-40) % [place] % (Auto) 8.1 (2-11) % Eos % (Auto) 0.6 (0-4) % Baso % (Auto) 0.3 (0-2) % Lymph # (Auto) 1.8 (1.2-4.9) X10*3/uL [place] # (Auto) 0.7 (0.1-1.2) X10*3/uL Eos # (Auto) 0.1 (0.0-0.4) X10*3/uL Baso # (Auto) 0.0 (0.0-0.2) X10*3/uL Abs Immat Gran (auto) 0.02 (0.00-0.03) X10*3/uL Absolute Neuts (auto) 6.3 (2.0-8.3) x10*3/uL Absolute Nucleated RBC 0.000 (0.0-0.012) X10*3/uL Nucleated RBC % (auto) 0.0 (0.0-0.2) /100WBC Sodium 137 (135-145) mmol/L Potassium 3.8 (3.3-5.1) mmol/L Chloride 103 (96-108) mmol/L Carbon Dioxide 25 (22-29) mmol/L Anion Gap 13 (12-20) BUN 24 H (9-16) mg/dL Creatinine 1.05 (0.5-1.4) mg/dL Estim Creat Clear Calc 77.8 Estimated GFR > 60 POC Glucose 268 H 277 H (60-115) mg/dL Random Glucose 288 H (60-115) mg/dL Calcium 8.9 (8.4-10.2) mg/dL Total Bilirubin 0.7 (0.0-1.0) mg/dL AST 34 (5-37) U/L ALT 29 (0-40) U/L Alkaline Phosphatase 84 (39-117) U/L Total Protein 7.2 (6.5-8.0) g/dL Albumin 3.6 (3.5-5.0) g/dL Salicylates < 5.0 L (15-30) mg/dL Urine Opiates Screen Not Detected (Not Detect) Ur Buprenorphine Scrn Not Detected (Not Detect) ng/mL Ur Oxycodone Screen Not Detected (Not Detect) ng/mL Urine Methadone Screen Not Detected (Not Detect) ng/mL Urine Fentanyl Screen Not Detected (Not Detect) Acetaminophen < 3 (<30) mcg/mL Ur Barbiturates Screen Not Detected (Not Detect) Ur Phencyclidine Scrn Not Detected (Not Detect) Ur Amphetamines Screen Not Detected (Not Detect) U Benzodiazepines Scrn Not Detected (Not Detect) Urine Cocaine Screen POSITIVE H (Not Detect) U Marijuana (THC) Screen Not Detected (Not Detect) Ethyl Alcohol < 10 mg/dL 06/23/24 Range/Units 20:41 WBC (4.8-10.8) X10*3/uL RBC (4.60-5.80) X10*6/uL Hgb (14.0-18.0) g/dl Hct (42.0-52.0) % MCV (80.0-98.0) fL MCH (27.0-33.0) pg MCHC (31.0-36.0) g/dl RDW (11.0-16.0) % Plt Count (160-400) X10*3/uL MPV (9.4-12.4) fL Immature Gran % (Auto) (0.0-0.4) % Neut % (Auto) (45-73) % Lymph % (Auto) (20-40) % [place] % (Auto) (2-11) % Eos % (Auto) (0-4) % Baso % (Auto) (0-2) % Lymph # (Auto) (1.2-4.9) X10*3/uL [place] # (Auto) (0.1-1.2) X10*3/uL Eos # (Auto) (0.0-0.4) X10*3/uL Baso # (Auto) (0.0-0.2) X10*3/uL Abs Immat Gran (auto) (0.00-0.03) X10*3/uL Absolute Neuts (auto) (2.0-8.3) x10*3/uL Absolute Nucleated RBC (0.0-0.012) X10*3/uL Nucleated RBC % (auto) (0.0-0.2) /100WBC Sodium (135-145) mmol/L Potassium (3.3-5.1) mmol/L Chloride (96-108) mmol/L Carbon Dioxide (22-29) mmol/L Anion Gap (12-20) BUN (9-16) mg/dL Creatinine (0.5-1.4) mg/dL Estim Creat Clear Calc Estimated GFR POC Glucose 175 H (60-115) mg/dL Random Glucose (60-115) mg/dL Calcium (8.4-10.2) mg/dL Total Bilirubin (0.0-1.0) mg/dL AST (5-37) U/L ALT (0-40) U/L Alkaline Phosphatase (39-117) U/L Total Protein (6.5-8.0) g/dL Albumin (3.5-5.0) g/dL Salicylates (15-30) mg/dL Urine Opiates Screen (Not Detect) Ur Buprenorphine Scrn (Not Detect) ng/mL Ur Oxycodone Screen (Not Detect) ng/mL Urine Methadone Screen (Not Detect) ng/mL Urine Fentanyl Screen (Not Detect) Acetaminophen (<30) mcg/mL Ur Barbiturates Screen (Not Detect) Ur Phencyclidine Scrn (Not Detect) Ur Amphetamines Screen (Not Detect) U Benzodiazepines Scrn (Not Detect) Urine Cocaine Screen (Not Detect) U Marijuana (THC) Screen (Not Detect) Ethyl Alcohol mg/dL Discharge Plan Discharge Clinical Impression: Depression Patient Disposition: Home, Self-Care Instructions: Depression (ED) Additional Instructions: You were seen in our Emergency Department today for treatment of a behavioral health issue. It is important after your visit that you follow up with either your behavioral health provider or a primary care doctor within 7 days.? If you have trouble finding a therapist you can reach out to [address] [phone] [facility] [place] [facility] can be reached 7 days a week 24 hours a day.? Call [phone] to speak with someone.? Return for any worsening symptoms or concerns such as thoughts of self harm or harm to others. Please call 911 if you feel your mental health is worsening.? Prescriptions: No Action omeprazole 20 mg capsule,delayed release(DR/EC) 20 mg PO DAILY@0630 fluticasone furoate-vilanterol 100-25 mcg/dose blister with device 1 inh INHALATION DAILY trazodone 50 mg tablet 50 mg PO BEDTIME 30 Days Qty: 30 0RF hydroxyzine pamoate 50 mg capsule 50 mg PO BID 30 Days Qty: 60 0RF melatonin 10 mg Tablet 10 mg PO BEDTIME insulin glargine [Lantus U-100 Insulin] 100 unit/mL solution 15 unit subcut BEDTIME insulin lispro [Admelog U-100 Insulin lispro] 100 unit/mL Solution See Protocol subcut QIDACHS 30 Days Qty: 10 0RF Protocol: Insulin Correction Scale Less than or equal to 110 ---- Give (units): 0 111 to 150 Give (units): 0 151 to 200 Give (units): 2 201 to 250 Give (units): 4 251 to 300 Give (units): 6 301 to 350 Give (units): 8 Greater than 350 Give (units): 10 Call MD if Blood Glucose > : 350 atorvastatin 20 mg Tablet 20 mg PO BEDTIME 30 Days Qty: 30 0RF quetiapine 300 mg Tablet 300 mg PO BEDTIME 30 Days Qty: 30 0RF quetiapine 100 mg Tablet 100 mg PO DAILY 30 Days Qty: 30 0RF metformin 1,000 mg tablet 1,000 mg PO BID 30 Days Qty: 60 0RF gabapentin 300 mg capsule 300 mg PO BID 30 Days Qty: 60 0RF albuterol sulfate [Ventolin HFA] 90 mcg/actuation HFA aerosol inhaler 2 puff INHALATION QID PRN (Reason: wheezing) 30 Days Qty: 8.5 0RF paroxetine HCl 40 mg tablet 40 mg PO DAILY 30 Days Qty: 30 0RF Januvia 100 mg tablet 100 mg PO DAILY 30 Days Qty: 30 0RF Interventions: [place]-Suicide Risk Severity Scale Last Done: 06/24/24 10:01 ED Discharge Assessment Last Done: 06/24/24 10:01 Discharge Date/Time: 06/24/24 10:03 Print Language: Irish
--- NOTE | 2024-06-23 13:46 | ECG_ITS ---
Test Reason : CHECK QT Blood Pressure : */* mmHG Vent. Rate : 87 BPM Atrial Rate : 87 BPM P-R Int : 132 ms QRS Dur : 78 ms QT Int : 368 ms P-R-T Axes : 62 67 42 degrees QTcB Int : 442 ms Normal sinus rhythm Normal ECG When compared with ECG of 11-Jun-2024 02:57, No significant change was found Referred By: Srikanth Dao Electronically Signed By: EARLINE GALLAGHER
--- NOTE | 2024-06-23 14:27 | PC.NURSE ---
re med rec: pt confirmed medications and reports that he is still taking all medications on list. no fill records seen for hydroxyzine and trazodone but pt reports that he is still taking the. pt states he last took his medications about 1 week ago but is not sure which day exactly.
[2024-06-23 14:52] LABS: Glucose, Whole Blood 268 mg/dL (60-115)
[2024-06-23 14:54] VITALS: BP 145/73; PULSE 79; RESP 20; TEMP 36.7; O2SAT 98
--- NOTE | 2024-06-23 16:20 | PC.NURSE ---
non-admit quetiapine 100mg - pt is sleeping and another dose 300mg is ordered for bedtime.
[2024-06-23] MEDS: PARoxetine HCL 40 MG TABLET PO (17:18)
--- NOTE | 2024-06-23 17:47 | MHC.CARE ---
Pt was declined from [facility] and [facility] due to not having access to his current prescribed medications. [facility] pharmacy was contacted who stated that pt picked up all scripts on 06/17/24. Pt has [facility] at this time and [facility] has their own respite program [facility] which does not require pt to have medications to be eligible. Referral was placed to [facility] and responding is pending at this time. Further follow up will occur once it is determined if pt is accepted or denied to [facility].
[2024-06-23 17:55] LABS: Glucose, Whole Blood 277 mg/dL (60-115)
[2024-06-23] MEDS: Insulin Lispro 100 UNIT/ML 3 ML VIAL SUBCUT ×2 (18:12→20:41)
--- NOTE | 2024-06-23 19:45 | PC.NURSE ---
patient appears to remain at rest presently respirations are even and unlabored patient appear in no distress.
[2024-06-23] MEDS: Melatonin 3 MG TABLET 9 MG PO (20:40)
[2024-06-23] MEDS: Atorvastatin Calcium 20 MG TABLET PO (20:40)
[2024-06-23] MEDS: QUEtiapine Fumarate 300 MG TABLET PO (20:40)
[2024-06-23] MEDS: hydrOXYzine HCL 50 MG TABLET PO (20:41)
[2024-06-23] MEDS: Insulin Glargine,Hum.rec.anlog 100 UNIT/ML 10 ML VIAL 15 UNIT SUBCUT (20:41)
[2024-06-23] MEDS: traZODone HCL 50 MG TABLET PO (20:41)
[2024-06-23] MEDS: Gabapentin 300 MG CAPSULE PO (20:41)
[2024-06-23 20:44] LABS: Glucose, Whole Blood 175 mg/dL (60-115)
[2024-06-23] MEDS: metFORMIN HCl 1,000 MG TABLET 1000 MG PO (20:51)
[2024-06-24] MEDS: QUEtiapine Fumarate 100 MG TABLET PO (07:40)
[2024-06-24] MEDS: PARoxetine HCL 40 MG TABLET PO (07:40)
[2024-06-24] MEDS: hydrOXYzine HCL 50 MG TABLET PO (07:40)
[2024-06-24] MEDS: Gabapentin 300 MG CAPSULE PO (07:40)
[2024-06-24] MEDS: Omeprazole 20 MG CAPSULE.DR PO (07:40)
[2024-06-24] MEDS: SITagliptin Phosphate 100 MG TABLET PO (07:41)
[2024-06-24] MEDS: metFORMIN HCl 1,000 MG TABLET 1000 MG PO (07:41)
[2024-06-24] MEDS: Insulin Lispro 100 UNIT/ML 3 ML VIAL SUBCUT (07:41)
--- NOTE | 2024-06-24 08:51 | PHA.MEDREC ---
Pharmacy Consult ? Medication Reconciliation Pharmacy has completed the medication reconciliation. Reviewed med rec and note done by nursing; acknowledged lack of claims for trazodone and hydroxyzine
[2024-06-24 09:41] VITALS: BP 115/61; PULSE 97; RESP 16; TEMP 36.8; O2SAT 100
[2024-06-24 10:01] VITALS: BP 115/61; PULSE 97; RESP 16; TEMP 36.8; O2SAT 100
[2024-06-25 06:30] LABS: Glucose, Whole Blood 160 mg/dL (60-115)
== END 2024-06-24 10:03 | disposition home or self-care (01) ==
PROVIDERS: Emergency Medicine; Emergency Provider Emergency Medicine
DX: F32.A Depression, unspecified (principal); R45.851 Suicidal ideations; F41.9 Anxiety disorder, unspecified; M79.605 Pain in left leg; M79.604 Pain in right leg; F43.10 Post-traumatic stress disorder, unspecified; F14.10 Cocaine abuse, uncomplicated; F20.9 Schizophrenia, unspecified; Z59.00 Homelessness unspecified; E11.9 Type 2 diabetes mellitus without complications; Z79.4 Long term (current) use of insulin; Z79.02 Long term (current) use of antithrombotics/antiplatelets; Z79.899 Other long term (current) drug therapy
CPT/HCPCS: 36415; 80053; 80143; 80179; 80307; 82947; 85025; 93005; 99285; S9485

== ENCOUNTER → 2024-06-23 13:46 | Outpatient (BNV) | payer OTHER, SELFPAY | PROVIDERS: Emergency Provider Emergency Medicine; Visit Provider Internal Medicine | DX: Z13.6 Encounter for screening for cardiovascular disorders (principal) | CPT/HCPCS: 93010 ==

== ENCOUNTER 2024-06-28 18:03 | Emergency (ER) | payer OTHER, SELFPAY ==
[2024-06-28 18:39] VITALS: BP 137/71; PULSE 97; RESP 16; TEMP 36.4; O2SAT 98; BMI 25.1
--- NOTE | 2024-06-28 18:44 | ED_ITS ---
HPI - Psych General Chief Complaint: Psychiatric Symptoms Stated Complaint: suicidal thoughts Time Seen by Provider: 06/28/24 18:25 History of Present Illness HPI Narrative: Patient is a 59-year-old male presents today with having suicidal thoughts. Patient got into an argument with his . Subsequently had thoughts about cutting himself. Patient denies any recreational drug use. Denies any fever chills chest pain shortness of breath nausea vomiting. Had a history of suicidal ideation was previously seen in the past. Has a previous history of cocaine use although patient denies at this time. History of schizophrenia. Patient is homeless. Patient has no firearms with him Related Data Home Medications ?Medication ?Instructions ?Recorded ?Confirmed fluticasone furoate 100 1 inh inhalation DAILY 04/12/24 06/28/24 mcg-vilanterol 25 mcg/dose inhalation powder omeprazole 20 mg capsule,delayed 20 mg PO DAILY@0630 04/12/24 06/28/24 release insulin glargine 100 unit/mL 15 unit subcut BEDTIME 06/12/24 06/28/24 subcutaneous solution (Lantus U-100 Insulin) atorvastatin 20 mg tablet 20 mg PO BEDTIME 06/28/24 06/28/24 gabapentin 300 mg capsule 300 mg PO BID 06/28/24 06/28/24 melatonin 10 mg tablet 10 mg PO BEDTIME 06/28/24 06/28/24 metformin 1,000 mg tablet 1,000 mg PO BID 06/28/24 06/28/24 Previous Rx's ?Medication ?Instructions ?Recorded hydroxyzine pamoate 50 mg capsule 50 mg PO BID 30 days #60 caps 04/20/24 trazodone 50 mg tablet 50 mg PO BEDTIME 30 days #30 tabs 04/20/24 insulin lispro 100 unit/mL See Protocol subcut QIDACHS 30 06/15/24 subcutaneous solution (Admelog days #10 mL U-100 Insulin lispro) paroxetine HCl 40 mg tablet 40 mg PO DAILY 30 days #30 tabs 06/15/24 quetiapine 100 mg tablet 100 mg PO DAILY 30 days #30 tabs 06/15/24 quetiapine 300 mg tablet 300 mg PO BEDTIME 30 days #30 tabs 06/15/24 sitagliptin phosphate 100 mg 100 mg PO DAILY 30 days #30 tabs 06/15/24 tablet (Januvia) Allergies Allergy/AdvReac Type Severity Reaction Status Date / Time glipizide [GLIPIZIDE] Allergy Intermediate ITCHY Verified 06/28/24 18:44 oxycodone [From TYLOX] AdvReac Intermediate CHEST PAINS Verified 06/28/24 18:44 Review of Systems 2 Review of Systems: Positive suicidal ideation Yes all other systems are reviewed and are negative PMFSH Past Medical History Attestation statement: The following information was validated with the patient. Medical History Depression MDD (major depressive disorder), recurrent episode, moderate Cocaine use disorder Substance-induced psychotic disorder Anxiety Diabetes Social History Social History Household Members: None Housing: Homeless Do you presently have visiting nurse or other home services: No Unable to assess alcohol history related to: Refusing to respond Alcohol intake: former Patient Tobacco Use Status: Current everyday Tobacco user Tobacco use type: Cigarette Cigarette Packs Per Day: 1 Cigarettes Per Day: 20.0 Years Smoked: 40 Smoked in Last 30 Days: No e-Cigarette/Vaping Use: Former Use Second Hand Smoke Exposure: No Use of substances other than those prescribed or required for medical reasons: No Substance Use Type: Crack/Cocaine Advance Directives: Yes Advance Directives on File: Yes Advance Directives Date on File: 10/24/21 Do you have a plan to hurt others: No Plan service: No Sexual orientation: Straight/Heterosexual Physical Exam 2 Vital Signs: Vital Signs: Last Vital Signs Temp 97.5 F 06/28/24 18:49 Pulse 97 06/28/24 18:49 Resp 16 06/28/24 18:49 BP 137/71 06/28/24 18:49 Pulse Ox 98 06/28/24 18:49 O2 Del Method Room Air 06/28/24 18:49 BMI result Body Mass Index 25.1 Appearance: Alert. Oriented X3. No acute distress. Eyes: Pupils equal, round and reactive to light. ENT: Pharynx normal. Neck: Normal inspection. Neck supple. No lymph nodes noted. No crepitus CVS: Normal heart rate and rhythm. Pulses normal. Normal S1 and S2 Respiratory: No respiratory distress. Breath sounds normal. No Wheezing. No rales Abdomen: Soft and nontender. No rigidity. No distention. good BS x4 Skin: Skin warm and dry. Normal skin color. Normal skin turgor. Extremities: No lower extremity edema. Neurovascular intact to all extremities. No Lacerations. No Rash Neuro: Oriented X 3. No motor deficit. No sensory deficit. Moving all extermities. No slurred speech Course Reevaluation(s) Reevaluation #1: Time: 07:29 Date: 06/29/24 Provider: Sheldon Ackerman MD Patient in physician observation for psychiatric evaluation.? No acute events reported overnight. No current complaints. VS stable.? . Will continue to monitor. Reevaluation #2: Patient was seen by crisis team at this time he is cleared for discharge Time: 07:49 Medications Administered Generic Name Dose Route Start Last Admin Trade Name Freq PRN Reason Stop Dose Admin Atorvastatin Calcium 20 mg 06/28/24 21:30 06/28/24 21:47 Atorvastatin Calcium 20 Mg Tablet PO 20 mg BEDTIME NILE Administration Gabapentin 300 mg 06/28/24 21:30 06/28/24 21:46 Gabapentin 300 Mg Capsule PO 300 mg BID NILE Administration Hydroxyzine HCl 50 mg 06/28/24 21:30 06/28/24 21:46 Hydroxyzine Hcl 50 Mg Tablet PO 50 mg BID NILE Administration Insulin Glargine 15 unit 06/28/24 21:30 06/28/24 21:46 Insulin Glargine,Hum.Rec.Anlog 100 Unit/Ml 10 Ml Vial SUBCUT 15 unit BEDTIME NILE Administration Metformin HCl 1,000 mg 06/28/24 21:30 06/28/24 21:47 Metformin Hcl 1,000 Mg Tablet PO 1,000 mg BID NILE Administration Omeprazole 20 mg 06/29/24 06:30 06/29/24 06:17 Omeprazole 20 Mg Capsule. PO Not Given DAILY@0630 NILE Quetiapine Fumarate 300 mg 06/28/24 21:30 06/28/24 21:46 Quetiapine Fumarate 300 Mg Tablet PO 300 mg BEDTIME NILE Administration Trazodone HCl 50 mg 06/28/24 21:30 06/28/24 21:46 Trazodone Hcl 50 Mg Tablet PO 50 mg BEDTIME NILE Administration Medical Decision Making Medical Decision Making MDM Narrative: Positive suicidal ideation. Patient to be evaluated by care team. In no acute distress. Patient was just recently discharged from Psychiatric floor Differential Diagnosis Differential Diagnoses: The differential diagnosis associated with the presentation includes Suicidal ideation, depression, polysubstance abuse Admission/Observation Consideration of admission/observation: Escalation of care including admission/observation considered Consult Healthcare Provider Management of the patient was discussed with: Associate Music Professor (Care team) Lab Data [facility] Lab Attestation statement: I reviewed the patient's lab results. 06/28/24 18:37 06/28/24 18:37 Labs: Lab Results 06/28/24 Range/Units 18:37 WBC 7.0 (4.8-10.8) X10*3/uL RBC 4.58 L (4.60-5.80) X10*6/uL Hgb 13.0 L (14.0-18.0) g/dl Hct 38.7 L (42.0-52.0) % MCV 84.5 (80.0-98.0) fL MCH 28.4 (27.0-33.0) pg MCHC 33.6 (31.0-36.0) g/dl RDW 12.7 (11.0-16.0) % Plt Count 286 (160-400) X10*3/uL MPV 9.8 (9.4-12.4) fL Immature Gran % (Auto) 1.4 H (0.0-0.4) % Neut % (Auto) 73.6 H (45-73) % Lymph % (Auto) 15.4 L (20-40) % Moca % (Auto) 8.0 (2-11) % Eos % (Auto) 0.9 (0-4) % Baso % (Auto) 0.7 (0-2) % Lymph # (Auto) 1.1 L (1.2-4.9) X10*3/uL [place]oca # (Auto) 0.6 (0.1-1.2) X10*3/uL Eos # (Auto) 0.1 (0.0-0.4) X10*3/uL Baso # (Auto) 0.1 (0.0-0.2) X10*3/uL Abs Immat Gran (auto) 0.10 H (0.00-0.03) X10*3/uL Absolute Neuts (auto) 5.1 (2.0-8.3) x10*3/uL Absolute Nucleated RBC 0.000 (0.0-0.012) X10*3/uL Nucleated RBC % (auto) 0.0 (0.0-0.2) /100WBC Sodium 140 (135-145) mmol/L Potassium 4.2 (3.3-5.1) mmol/L Chloride 105 (96-108) mmol/L Carbon Dioxide 25 (22-29) mmol/L Anion Gap 14 (12-20) BUN 13 (9-16) mg/dL Creatinine 0.91 (0.5-1.4) mg/dL Estim Creat Clear Calc 82.7 Estimated GFR > 60 Random Glucose 192 H (60-115) mg/dL Calcium 8.9 (8.4-10.2) mg/dL Total Bilirubin 0.3 (0.0-1.0) mg/dL AST 31 (5-37) U/L ALT 28 (0-40) U/L Alkaline Phosphatase 79 (39-117) U/L Total Protein 7.7 (6.5-8.0) g/dL Albumin 4.0 (3.5-5.0) g/dL Urine Color Yellow Urine Appearance Clear Urine pH 6.5 (5.0-9.0) Ur Specific [place] 1.020 (1.005-1.025) Urine Protein 30 (1+) H (Neg-Trace) mg/dL Urine Glucose (UA) 250 H (Negative) mg/dL Urine Ketones Trace (Negative) mg/dL Urine Blood Negative (Negative) Urine Nitrite Negative (Negative) Ur Leukocyte Esterase Negative (Negative) Urine RBC 0-2 (0-2) /HPF Urine WBC 0-5 (0-5) /HPF Ur Squamous Epith Cells 0-2 (0-2) /HPF Urine Bacteria None Seen (None Seen) Hyaline Casts 0-2 (0-2) /LPF Urine Opiates Screen Not Detected (Not Detect) Ur Buprenorphine Scrn Not Detected (Not Detect) ng/mL Ur Oxycodone Screen Not Detected (Not Detect) ng/mL Urine Methadone Screen Not Detected (Not Detect) ng/mL Urine Fentanyl Screen Not Detected (Not Detect) Ur Barbiturates Screen Not Detected (Not Detect) Ur Phencyclidine Scrn Not Detected (Not Detect) Ur Amphetamines Screen Not Detected (Not Detect) U Benzodiazepines Scrn Not Detected (Not Detect) Urine Cocaine Screen POSITIVE H (Not Detect) U Marijuana (THC) Screen Not Detected (Not Detect) Ethyl Alcohol < 10 mg/dL External Record Review External record reviewed: Inpatient record Chronic Conditions Psychiatric issues, homelessness, PTSD Social Determinants Patient?s care significantly limited by Social Determinants of Health including: Inadequate housing, Low income, Alcoholism and drug addiction in family and Problems related to primary support group Discharge Plan Discharge Clinical Impression: Cocaine use disorder, Homeless single person, Suicidal ideation Patient Disposition: Home, Self-Care Instructions: Depression (DC) Prescriptions: No Action omeprazole 20 mg capsule,delayed release(DR/EC) 20 mg PO DAILY@0630 fluticasone furoate-vilanterol 100-25 mcg/dose blister with device 1 inh INHALATION DAILY trazodone 50 mg tablet 50 mg PO BEDTIME 30 Days Qty: 30 0RF hydroxyzine pamoate 50 mg capsule 50 mg PO BID 30 Days Qty: 60 0RF insulin glargine [Lantus U-100 Insulin] 100 unit/mL solution 15 unit subcut BEDTIME insulin lispro [Admelog U-100 Insulin lispro] 100 unit/mL Solution See Protocol subcut QIDACHS 30 Days Qty: 10 0RF Protocol: Insulin Correction Scale Less than or equal to 110 ---- Give (units): 0 111 to 150 Give (units): 0 151 to 200 Give (units): 2 201 to 250 Give (units): 4 251 to 300 Give (units): 6 301 to 350 Give (units): 8 Greater than 350 Give (units): 10 Call MD if Blood Glucose > : 350 quetiapine 300 mg Tablet 300 mg PO BEDTIME 30 Days Qty: 30 0RF quetiapine 100 mg Tablet 100 mg PO DAILY 30 Days Qty: 30 0RF paroxetine HCl 40 mg tablet 40 mg PO DAILY 30 Days Qty: 30 0RF Januvia 100 mg tablet 100 mg PO DAILY 30 Days Qty: 30 0RF atorvastatin 20 mg tablet 20 mg PO BEDTIME metformin 1,000 mg tablet 1,000 mg PO BID gabapentin 300 mg capsule 300 mg PO BID melatonin 10 mg tablet 10 mg PO BEDTIME Referrals: Yoel Parrish MD [Primary Care Provider] - 2 days Interventions: [place]-Suicide Risk Severity Scale Last Done: 06/28/24 18:44 Print Language: Cambodian
[2024-06-28 18:49] VITALS: BP 137/71; PULSE 97; RESP 16; TEMP 36.4; O2SAT 98
[2024-06-28 18:51] LABS: MANUAL DIFF FLAG NO
[2024-06-28 19:03] LABS: Appearance Urine Clear; Color Urine Yellow; Glucose Urine UA 250 mg/dL (Negative); Leukocyte Esterase Urine Negative (Negative); Nitrite Urine Negative (Negative); PH 6.5 (5.0-9.0); UMIC TRIGGER UACC YES; Urine Blood Negative (Negative); Urine Ketones Trace mg/dL (Negative); Urine Protein 30 (1+) mg/dL (Neg-Trace)
[2024-06-28 19:04] LABS: Amphetamine Screen Urine Not Detected (Not Detect); Barbiturates, Urine Not Detected (Not Detect); Basophils Absolute Auto 0.1 X10*3/uL (0.0-0.2); Basophils Percent Auto 0.7 % (0-2); Benzodiazepines Screen Urine Not Detected (Not Detect); Buprenorphine Scr Not Detected (Not Detect); Cannabinoid Screen Urine Not Detected (Not Detect); Cocaine Screen Urine POSITIVE (Not Detect); Eosinophils Absolute Auto 0.1 X10*3/uL (0.0-0.4); Eosinophils Percent Auto 0.9 % (0-4); Fentanyl, urine Not Detected (Not Detect); Hematocrit 38.7 % (42.0-52.0); Imm Gran Pct Auto 1.4 % (0.0-0.4); Lymphocytes Absolute Auto 1.1 X10*3/uL (1.2-4.9); Lymphocytes Percent Auto 15.4 % (20-40); Mean Corpuscular HGB Conc 33.6 g/dl (31.0-36.0); Mean Corpuscular Hemoglobin 28.4 pg (27.0-33.0); Mean Corpuscular Volume 84.5 fL (80.0-98.0); Mean Platelet Volume 9.8 fL (9.4-12.4); Methadone Screen, Urine Not Detected (Not Detect); Monocytes Absolute Auto 0.6 X10*3/uL (0.1-1.2); Neutrophils Absolute Auto 5.1 x10*3/uL (2.0-8.3); Neutrophils Percent Auto 73.6 % (45-73); Opiate Screen Urine Not Detected (Not Detect); Oxycodone Screen Urine Not Detected (Not Detect); Phencyclidine Screen Urine Not Detected (Not Detect); Platelet Count 286 X10*3/uL (160-400); Red Blood Count 4.58 X10*6/uL (4.60-5.80); Red Cell Distribution Width 12.7 % (11.0-16.0)
[2024-06-28 19:10] LABS: Alanine Aminotransferase 28 U/L (0-40); Alkaline Phosphatase 79 U/L (39-117); Anion Gap 14 (12-20); Aspartate Amino Transferase 31 U/L (5-37); Bilirubin Total 0.3 mg/dL (0.0-1.0); Blood Urea Nitrogen 13 mg/dL (9-16); Calcium 8.9 mg/dL (8.4-10.2); Carbon Dioxide 25 mmol/L (22-29); Chloride 105 mmol/L (96-108); Creatinine Clr Calc Pharmacy 82.7; Estimated Glomerular Filt Rate > 60; Ethanol < 10 mg/dL; Glucose Random 192 mg/dL (60-115); Potassium 4.2 mmol/L (3.3-5.1); Sodium 140 mmol/L (135-145); Total Protein 7.7 g/dL (6.5-8.0)
[2024-06-28 19:31] LABS: Bacteria Urine None Seen (None Seen); Hyaline Casts Urine 0-2 /LPF (0-2); RBC Urine 0-2 /HPF (0-2); Squamous Epithelial Cell Urine 0-2 /HPF (0-2); WBC Urine 0-5 /HPF (0-5)
[2024-06-28] MEDS: QUEtiapine Fumarate 300 MG TABLET PO (21:46)
[2024-06-28] MEDS: hydrOXYzine HCL 50 MG TABLET PO (21:46)
[2024-06-28] MEDS: traZODone HCL 50 MG TABLET PO (21:46)
[2024-06-28] MEDS: Gabapentin 300 MG CAPSULE PO (21:46)
[2024-06-28] MEDS: Insulin Glargine,Hum.rec.anlog 100 UNIT/ML 10 ML VIAL 15 UNIT SUBCUT (21:46)
[2024-06-28] MEDS: Atorvastatin Calcium 20 MG TABLET PO (21:47)
[2024-06-28] MEDS: metFORMIN HCl 1,000 MG TABLET 1000 MG PO (21:47)
--- NOTE | 2024-06-29 08:02 | MHC.CARE ---
Pt denies SI, HI, and A/V/H. He does not meet the criteria for a higher level of care and declined any OP referrals. Pt to be D/C. Provider in agreement.
[2024-06-29] MEDS: Gabapentin 300 MG CAPSULE PO (08:18)
[2024-06-29] MEDS: PARoxetine HCL 40 MG TABLET PO (08:18)
[2024-06-29] MEDS: Omeprazole 20 MG CAPSULE.DR PO (08:18)
[2024-06-29] MEDS: QUEtiapine Fumarate 100 MG TABLET PO (08:18)
[2024-06-29] MEDS: hydrOXYzine HCL 50 MG TABLET PO (08:18)
[2024-06-29] MEDS: metFORMIN HCl 1,000 MG TABLET 1000 MG PO (08:18)
[2024-06-29] MEDS: SITagliptin Phosphate 100 MG TABLET PO (08:18)
[2024-06-29 08:20] VITALS: BP 137/71; PULSE 97; RESP 16; TEMP 36.4; O2SAT 98
== END 2024-06-29 08:22 | disposition home or self-care (01) ==
PROVIDERS: Emergency Medicine Emergency Medical Services; Emergency Provider Emergency Medicine Emergency Medical Services; PCP Internal Medicine
DX: F14.90 Cocaine use, unspecified, uncomplicated (principal); R45.851 Suicidal ideations; E11.9 Type 2 diabetes mellitus without complications; F41.9 Anxiety disorder, unspecified; Z59.00 Homelessness unspecified; Z79.899 Other long term (current) drug therapy
CPT/HCPCS: 36415; 80053; 80307; 81001; 81003; 85025; 99284; 99285; S9485

== ENCOUNTER 2024-07-30 01:14 | Emergency (ER) | payer OTHER, SELFPAY ==
[2024-07-30] VITALS (8 sets, daily range): BP systolic 128–164; BP diastolic 61–88; PULSE 64–90; RESP 16–20; TEMP 36.4–36.9; O2SAT 95–99; BMI 29.9
--- NOTE | ~2024-07-30 | CT_ITS ---
CLINICAL HISTORY: bilateral flank pain, gu sx CT abdomen and pelvis without contrast Comparison: CT/SR - CT ABDOMEN PELVIS WO IV CON - 09/22/23 04:39 EDT Findings: No consolidation or effusion. There is fatty infiltration of the liver. Adrenal glands, pancreas, and gallbladder are unremarkable. No hydronephrosis. There is bilateral perinephric stranding present. No renal or ureteral stones. No bowel obstruction, pneumoperitoneum, or pneumatosis. Extensive wall calcifications of the abdominal aorta. Pelvic contents unremarkable. Normal appendix. The bones are intact. IMPRESSION: No evidence of obstructive uropathy. Bilateral perinephric stranding, a nonspecific finding that can be incidental, but could also be associated with upper tract infection. This document has been electronically signed by: Marc Mcduffie MD on 07/30/2024 03:00:58
--- NOTE | ~2024-07-30 | XR_ITS ---
CLINICAL HISTORY: chest pain 2 view chest x-ray Comparison: CR - XR CHEST 1V - 06/11/24 03:19 EDT Findings: No consolidation or effusion. Normal size heart. No acute fracture. IMPRESSION: 1. No acute findings. This document has been electronically signed by: Marc Mcduffie MD on 07/30/2024 02:51:10
--- NOTE | 2024-07-30 01:27 | ECG_ITS ---
Test Reason : CHEST PAIN Blood Pressure : */* mmHG Vent. Rate : 87 BPM Atrial Rate : 87 BPM P-R Int : 144 ms QRS Dur : 82 ms QT Int : 370 ms P-R-T Axes : 57 52 9 degrees QTcB Int : 445 ms Normal sinus rhythm Normal ECG When compared with ECG of 23-Jun-2024 14:02, Inverted T waves have replaced nonspecific T wave abnormality in Inferior leads Referred By: Jolly Sneed Electronically Signed By: FRANKIE DOTY MD
--- NOTE | 2024-07-30 01:28 | ED.GENADULT ---
HPI - General Adult General Chief complaint: General Medical Stated complaint: Right leg pain x2 days worsened can't ambulate Time Seen by Provider: 07/30/24 01:17 Source: patient and EMS Mode of arrival: EMS Limitations: no limitations History of Present Illness ED Provider: efren parker np HPI narrative: patient is a 59-year-old male who presents emergency department via EMS with a multitude of complaints. He is currently on housed, he was near a local [facility] pharmacy that is open 247 so he decided to walk their 2 asked them to call 911 for assistance as he does not have a phone. He states that for 1 week he has been experiencing bilateral kidney pain a constant pain with the associated urinary frequency denying dysuria hematuria history of kidney stones. States before he has been told that his kidneys are over working . Complaining of bilateral legs feeling shaky/tremulous, aching pain to the bilateral thighs. 1 hour prior to arrival he began experiencing a achy left anterior chest pain that has been constant since its onset. He does admit that over the past 3 days he has not had any oral intake fluids nor solids due to. A/lack of money. He also is complaining purulent discharge an eye redness from the bilateral eyes for the past 2 weeks. He has been subjective fevers but denies any chills. He denies headache, dizziness, lightheadedness, neck pain, neck stiffness, shortness of breath, nausea, vomiting, abdominal pain, numbness or tingling of the extremities. States she has been compliant with his medications for diabetes, including metformin as well as his anxiety medicines Related Data Home Medications ?Medication ?Instructions ?Recorded ?Confirmed fluticasone furoate 100 1 inh inhalation DAILY 04/12/24 06/28/24 mcg-vilanterol 25 mcg/dose inhalation powder omeprazole 20 mg capsule,delayed 20 mg PO DAILY@0630 04/12/24 06/28/24 release insulin glargine 100 unit/mL 15 unit subcut BEDTIME 06/12/24 06/28/24 subcutaneous solution (Lantus U-100 Insulin) atorvastatin 20 mg tablet 20 mg PO BEDTIME 06/28/24 06/28/24 gabapentin 300 mg capsule 300 mg PO BID 06/28/24 06/28/24 melatonin 10 mg tablet 10 mg PO BEDTIME 06/28/24 06/28/24 metformin 1,000 mg tablet 1,000 mg PO BID 06/28/24 06/28/24 Previous Rx's ?Medication ?Instructions ?Recorded hydroxyzine pamoate 50 mg capsule 50 mg PO BID 30 days #60 caps 04/20/24 trazodone 50 mg tablet 50 mg PO BEDTIME 30 days #30 tabs 04/20/24 insulin lispro 100 unit/mL See Protocol subcut QIDACHS 30 06/15/24 subcutaneous solution (Admelog days #10 mL U-100 Insulin lispro) paroxetine HCl 40 mg tablet 40 mg PO DAILY 30 days #30 tabs 06/15/24 quetiapine 100 mg tablet 100 mg PO DAILY 30 days #30 tabs 06/15/24 quetiapine 300 mg tablet 300 mg PO BEDTIME 30 days #30 tabs 06/15/24 sitagliptin phosphate 100 mg 100 mg PO DAILY 30 days #30 tabs 06/15/24 tablet (Januvia) Allergies Allergy/AdvReac Type Severity Reaction Status Date / Time glipizide [GLIPIZIDE] Allergy Intermediate ITCHY Verified 07/30/24 01:22 oxycodone [From TYLOX] AdvReac Intermediate CHEST PAINS Verified 07/30/24 01:22 Review of Systems Review of Systems: Yes all other systems are reviewed and are negative PMFSH Past Medical History Attestation statement: The following information was validated with the patient. Source: old records reviewed Medical History Depression MDD (major depressive disorder), recurrent episode, moderate Cocaine use disorder Substance-induced psychotic disorder Anxiety Diabetes Social History Social History Household Members: None Housing: Homeless Do you presently have visiting nurse or other home services: No Unable to assess alcohol history related to: Refusing to respond Alcohol intake: current Alcohol intake frequency: 0-2 drinks per day Alcohol type: beer Patient Tobacco Use Status: Current everyday Tobacco user Tobacco use type: Cigarette Cigarette Packs Per Day: 1 Cigarettes Per Day: 20.0 Years Smoked: 40 Smoked in Last 30 Days: No e-Cigarette/Vaping Use: Former Use Second Hand Smoke Exposure: No Use of substances other than those prescribed or required for medical reasons: No Substance Use Type: Crack/Cocaine Advance Directives: Yes Advance Directives on File: Yes Advance Directives Date on File: 10/24/21 service: No Sexual orientation: Straight/Heterosexual Physical Exam ED Vital Signs: Vital Signs - 24 hr 07/30/24 01:20 07/30/24 01:25 07/30/24 03:25 Temperature 98.5 F 98.5 F Pulse Rate 88 88 68 Respiratory Rate 20 20 16 Blood Pressure 136/71 136/71 132/75 Pulse Oximetry 97 98 Oxygen Delivery Method Room Air Room Air Room Air 07/30/24 04:35 07/30/24 05:42 07/30/24 06:12 Temperature 98.2 F 97.9 F Pulse Rate 64 81 69 Respiratory Rate 16 20 16 Blood Pressure 147/80 H 145/67 H 132/83 Pulse Oximetry 98 98 99 Oxygen Delivery Method Room Air Room Air Room Air 07/30/24 10:01 07/30/24 11:10 Temperature 97.6 F Pulse Rate 74 74 Respiratory Rate 16 16 Blood Pressure 128/61 128/61 Pulse Oximetry 95 95 Oxygen Delivery Method Room Air Room Air BMI result Body Mass Index 29.9 Appearance: Alert.?Oriented to person, place and time. No acute distress.?Normal affect. Eyes: Pupils equal, round and reactive to light. EOMI. Bilateral sclera and conjunctiva are injected, bilateral purulent discharge dried crusted drainage to the lid lines. ENT: Pharynx normal.?? Neck: Normal inspection.? Neck supple.?? CVS: Heart sounds normal. Normal heart rate and rhythm.? Pulses normal.?? Respiratory: No respiratory distress.? Lung sounds clear to auscultation bilaterally?? Abdomen: Soft and non-tender. Normoactive bowel sounds. Bilateral CVA tenderness. Skin: Skin warm and dry.? Normal skin color.? Extremities: No lower extremity edema.? No calf ttp. 2+ DP/PT pulse bilaterally Neuro: Moves all extremities spontaneously. Sensation intact bilaterally. Ambulates with normal slow steady gait. Course Reevaluation(s) Reevaluation #1: chest x-ray is without consolidation infiltrate, no pleural effusions. CBC is without leukocytosis, has a mild normocytic anemia that does not meet transfusion criteria, no thrombocytopenia. No electrolyte derangement. No KRYSTAL. Non-anion gap random glucose of 155. Minimally elevated AST / ALT as seen on priors. CPK slightly elevated at 495. CT does not show evidence of nephrolithiasis/ obstructive uropathy there is however bilateral perinephric stranding concerning for potential upper urinary tract infection, pending urinalysis at this time Reevaluation #2: urinalysis without evidence of infection or microscopic hematuria. patient will be signed out to ED attending Dr. Dao, pending dosage troponin and re-evaluation Time: 04:00 Reevaluation #3: Dr. Dao: The patient is a 59-year-old male with a history of chronic mental illness and frequent ER visits. He presented with very nonspecific symptoms. He was signed out to me at change of shift. I repeated a CPK. He has no rising CPK. He looks well. He slept for a long time and then he ate some food and was comfortable being discharged. Time: 16:43 Medications Administered Discontinued Medications Generic Name Dose Route Start Last Admin Trade Name Freq PRN Reason Stop Dose Admin Erythromycin 1 cm 07/30/24 01:47 07/30/24 02:05 Erythromycin Base 0.5% Oph Oin 1 Gm Tube EYE-BOTH 07/30/24 01:48 1 cm ONCE ONE Administration Sodium Chloride 1,000 mls @ 999 mls/hr 07/30/24 02:00 07/30/24 03:20 Ns IV 07/30/24 03:00 Infused .Q1H1M NILE Infusion Ketorolac Tromethamine 15 mg 07/30/24 03:56 07/30/24 04:36 Ketorolac Tromethamine 15 Mg/Ml Vial IVPUSH 07/30/24 03:57 15 mg ONCE ONE Administration Medical Decision Making Medical Decision Making [facility] Narrative: patient is a 59-year-old male with past medical history of depression, anxiety, cocaine use disorder, schizophrenia, diabetes who presents emergency department for multiple complaints including bilateral flank pain, chest pain, myalgias to the bilateral legs and shakiness,. On examination he has bilateral conjunctivitis, EOMI, denies wearing contact lenses, no foreign body sensation or endorsed pain, deniying concern for sexuallty transmitted infection to suggest gonococcal conjunctivitis. He is endorsing chest pain with onset 1 hour prior to arrival, he is without hypo or hypertension, afebrile without tachycardia, no tachypnea or hypoxia, speaking clear full sentences, LS CTA. Has a benign abdominal examination. Has bilateral CVA tenderness. Extremities are all neurovascularly intact distally. Will obtain CBC to evaluate for leukocytosis/ anemia, CMP and lipase to evaluate for abnormal electrolytes /abnormal renal function/ abnormal hepatic/biliary function, CPK, EKG and troponin to evaluate for ischemia/ACS. Chest x-ray to evaluate for consolidation/ infiltrate/ mass/ pulmonary congestion and Urinalysis. Differential Diagnosis Differential Diagnoses: The differential diagnosis associated with the presentation includes ( see narrative above) Admission/Observation Consideration of admission/observation: Escalation of care including admission/observation considered Lab Data MDM Lab Attestation statement: I reviewed the patient's lab results. 07/30/24 01:36 07/30/24 01:36 Labs: Lab Results 07/30/24 07/30/24 07/30/24 Range/Units 01:36 03:28 04:11 WBC 10.3 (4.8-10.8) X10*3/uL RBC 4.75 (4.60-5.80) X10*6/uL Hgb 13.3 L (14.0-18.0) g/dl Hct 38.3 L (42.0-52.0) % MCV 80.6 (80.0-98.0) fL MCH 28.0 (27.0-33.0) pg MCHC 34.7 (31.0-36.0) g/dl RDW 13.3 (11.0-16.0) % Plt Count 280 (160-400) X10*3/uL MPV 9.5 (9.4-12.4) fL Immature Gran % (Auto) 0.4 (0.0-0.4) % Neut % (Auto) 73.2 H (45-73) % Lymph % (Auto) 14.2 L (20-40) % [place] % (Auto) 11.5 H (2-11) % Eos % (Auto) 0.5 (0-4) % Baso % (Auto) 0.2 (0-2) % Lymph # (Auto) 1.5 (1.2-4.9) X10*3/uL [place] # (Auto) 1.2 (0.1-1.2) X10*3/uL Eos # (Auto) 0.1 (0.0-0.4) X10*3/uL Baso # (Auto) 0.0 (0.0-0.2) X10*3/uL Abs Immat Gran (auto) 0.04 H (0.00-0.03) X10*3/uL Absolute Neuts (auto) 7.5 (2.0-8.3) x10*3/uL Absolute Nucleated RBC 0.000 (0.0-0.012) X10*3/uL Nucleated RBC % (auto) 0.0 (0.0-0.2) /100WBC Sodium 137 (135-145) mmol/L Potassium 4.4 (3.3-5.1) mmol/L Chloride 100 (96-108) mmol/L Carbon Dioxide 26 (22-29) mmol/L Anion Gap 15 (12-20) BUN 26 H (9-16) mg/dL Creatinine 1.29 (0.5-1.4) mg/dL Estim Creat Clear Calc 65.6 Estimated GFR 57 Random Glucose 155 H (60-115) mg/dL Calcium 9.5 D (8.4-10.2) mg/dL Magnesium 1.7 (1.6-2.6) mg/dL Total Bilirubin 0.8 (0.0-1.0) mg/dL AST 51 H (5-37) U/L ALT 47 H (0-40) U/L Alkaline Phosphatase 76 (39-117) U/L Total Creatine Kinase 495 H 373 H (38-174) U/L Troponin I High Sens 9.2 D 8.6 (<3.5-35.0) ng/L B-Natriuretic Peptide 91 (<100) pg/mL Total Protein 7.8 (6.5-8.0) g/dL Albumin 4.2 (3.5-5.0) g/dL Lipase 27 (8-78) U/L Urine Color Yellow Urine Appearance Clear Urine pH 6.5 (5.0-9.0) Ur Specific [place] 1.020 (1.005-1.025) Urine Protein 300 (3+) H (Neg-Trace) mg/dL Urine Glucose (UA) Negative (Negative) mg/dL Urine Ketones Negative (Negative) mg/dL Urine Blood Negative (Negative) Urine Nitrite Negative (Negative) Ur Leukocyte Esterase Negative (Negative) Urine RBC 0-2 (0-2) /HPF Urine WBC 0-5 (0-5) /HPF Ur Squamous Epith Cells 0-2 (0-2) /HPF Urine Bacteria None Seen (None Seen) Hyaline Casts 3-5 (0-2) /LPF Urine Opiates Screen Not Detected (Not Detect) Ur Buprenorphine Scrn Not Detected (Not Detect) ng/mL Ur Oxycodone Screen Not Detected (Not Detect) ng/mL Urine Methadone Screen Not Detected (Not Detect) ng/mL Urine Fentanyl Screen Not Detected (Not Detect) Ur Barbiturates Screen Not Detected (Not Detect) Ur Phencyclidine Scrn Not Detected (Not Detect) Ur Amphetamines Screen Not Detected (Not Detect) U Benzodiazepines Scrn Not Detected (Not Detect) Urine Cocaine Screen Not Detected (Not Detect) U Marijuana (THC) Screen Not Detected (Not Detect) Ethyl Alcohol < 10 mg/dL Influenza Type A (PCR) NEGATIVE (Negative) Influenza Type B (PCR) NEGATIVE (Negative) RSV RNA Qual (PCR) NEGATIVE (Negative) SARS-CoV-2 RNA (RT-PCR) NEGATIVE (Negative) Independent Interpretation I performed an independent interpretation of an: EKG ( normal sinus rhythm with ventricular rate of 87, QTC 445, no ST-elevation) Radiology Impression Discussion of test interpretation with radiology: I have reviewed the radiologist's reading. Radiologist Impression: 2 view chest x-ray Comparison: CR - XR CHEST 1V - 06/11/24 03:19 EDT Findings: No consolidation or effusion. Normal size heart. No acute fracture. IMPRESSION: 1. No acute findings. CT abdomen and pelvis without contrast Comparison: CT/SR - CT ABDOMEN PELVIS WO IV CON - 09/22/23 04:39 EDT Findings: No consolidation or effusion. There is fatty infiltration of the liver. Adrenal glands, pancreas, and gallbladder are unremarkable. No hydronephrosis. There is bilateral perinephric stranding present. No renal or ureteral stones. No bowel obstruction, pneumoperitoneum, or pneumatosis. Extensive wall calcifications of the abdominal aorta. Pelvic contents unremarkable. Normal appendix. The bones are intact. IMPRESSION: No evidence of obstructive uropathy. Bilateral perinephric stranding, a nonspecific finding that can be incidental, but could also be associated with upper tract infection. Independent Historian Clinical information obtained from an independent historian. History obtained from or confirmed by: EMS External Record Review External record reviewed: Outpatient record Chronic Conditions Patient?s care impacted by: Other ( see narrative above) Discharge Plan Discharge Clinical Impression: Acute generalized body pain Patient Disposition: Home, Self-Care Additional Instructions: Your testing in the emergency room today was very reassuring. Please continue your regular medications. Please follow up with your regular doctor. Prescriptions: No Action omeprazole 20 mg capsule,delayed release(DR/EC) 20 mg PO DAILY@0630 fluticasone furoate-vilanterol 100-25 mcg/dose blister with device 1 inh INHALATION DAILY trazodone 50 mg tablet 50 mg PO BEDTIME 30 Days Qty: 30 0RF hydroxyzine pamoate 50 mg capsule 50 mg PO BID 30 Days Qty: 60 0RF insulin glargine [Lantus U-100 Insulin] 100 unit/mL solution 15 unit subcut BEDTIME insulin lispro [Admelog U-100 Insulin lispro] 100 unit/mL Solution See Protocol subcut QIDACHS 30 Days Qty: 10 0RF Protocol: Insulin Correction Scale Less than or equal to 110 ---- Give (units): 0 111 to 150 Give (units): 0 151 to 200 Give (units): 2 201 to 250 Give (units): 4 251 to 300 Give (units): 6 301 to 350 Give (units): 8 Greater than 350 Give (units): 10 Call MD if Blood Glucose > : 350 quetiapine 300 mg Tablet 300 mg PO BEDTIME 30 Days Qty: 30 0RF quetiapine 100 mg Tablet 100 mg PO DAILY 30 Days Qty: 30 0RF paroxetine HCl 40 mg tablet 40 mg PO DAILY 30 Days Qty: 30 0RF Januvia 100 mg tablet 100 mg PO DAILY 30 Days Qty: 30 0RF atorvastatin 20 mg tablet 20 mg PO BEDTIME metformin 1,000 mg tablet 1,000 mg PO BID gabapentin 300 mg capsule 300 mg PO BID melatonin 10 mg tablet 10 mg PO BEDTIME Referrals: Yoel Parrish MD [Physician] - Interventions: ED Discharge Assessment Last Done: 07/30/24 11:10 Discharge Date/Time: 07/30/24 11:11 Print Language: Kenyan
[2024-07-30 01:45] LABS: MANUAL DIFF FLAG NO
[2024-07-30 01:46] LABS: Basophils Percent Auto 0.2 % (0-2); Eosinophils Absolute Auto 0.1 X10*3/uL (0.0-0.4); Eosinophils Percent Auto 0.5 % (0-4); Hematocrit 38.3 % (42.0-52.0); Hemoglobin 13.3 g/dl (14.0-18.0); Imm Gran Abs Auto 0.04 X10*3/uL (0.00-0.03); Imm Gran Pct Auto 0.4 % (0.0-0.4); Lymphocytes Absolute Auto 1.5 X10*3/uL (1.2-4.9); Lymphocytes Percent Auto 14.2 % (20-40); Mean Corpuscular HGB Conc 34.7 g/dl (31.0-36.0); Mean Corpuscular Volume 80.6 fL (80.0-98.0); Mean Platelet Volume 9.5 fL (9.4-12.4); Monocytes Absolute Auto 1.2 X10*3/uL (0.1-1.2); Monocytes Percent Auto 11.5 % (2-11); Neutrophils Absolute Auto 7.5 x10*3/uL (2.0-8.3); Neutrophils Percent Auto 73.2 % (45-73); Platelet Count 280 X10*3/uL (160-400); Red Blood Count 4.75 X10*6/uL (4.60-5.80); Red Cell Distribution Width 13.3 % (11.0-16.0); White Blood Count 10.3 X10*3/uL (4.8-10.8)
[2024-07-30] MEDS: 0.9 % Sodium Chloride 1,000 ML 999 ML IV (02:03)
[2024-07-30 02:05] LABS: Alanine Aminotransferase 47 U/L (0-40); Albumin Level 4.2 g/dL (3.5-5.0); Anion Gap 15 (12-20); Aspartate Amino Transferase 51 U/L (5-37); Bilirubin Total 0.8 mg/dL (0.0-1.0); Blood Urea Nitrogen 26 mg/dL (9-16); Calcium 9.5 mg/dL (8.4-10.2); Carbon Dioxide 26 mmol/L (22-29); Chloride 100 mmol/L (96-108); Creatinine Clr Calc Pharmacy 65.6; Estimated Glomerular Filt Rate 57; Ethanol < 10 mg/dL; Glucose Random 155 mg/dL (60-115); Lipase 27 U/L (8-78); Magnesium 1.7 mg/dL (1.6-2.6); Potassium 4.4 mmol/L (3.3-5.1); Sodium 137 mmol/L (135-145); Total Protein 7.8 g/dL (6.5-8.0); Troponin-I High Sensitivity 9.2 ng/L (<3.5-35.0)
[2024-07-30] MEDS: Erythromycin Base 0.5% Oph Oin 1 GM TUBE 1 CM EYE-BOTH (02:05)
[2024-07-30 02:16] LABS: Alkaline Phosphatase 76 U/L (39-117); B Type Natriuretic Peptide 91 pg/mL (<100)
[2024-07-30 02:22] LABS: Influenza A PCR NEGATIVE (Negative); Influenza B PCR NEGATIVE (Negative); Resp Syncy Virus RNA Qual PCR NEGATIVE (Negative); SARS COV2 PCR INHOUSE NEGATIVE (Negative)
[2024-07-30 03:33] LABS: Appearance Urine Clear; Color Urine Yellow; Glucose Urine UA Negative (Negative); Leukocyte Esterase Urine Negative (Negative); Nitrite Urine Negative (Negative); PH 6.5 (5.0-9.0); UMIC TRIGGER UACC YES; Urine Blood Negative (Negative); Urine Ketones Negative (Negative); Urine Protein 300 (3+) mg/dL (Neg-Trace)
[2024-07-30 03:40] LABS: Bacteria Urine None Seen (None Seen); RBC Urine 0-2 /HPF (0-2); Squamous Epithelial Cell Urine 0-2 /HPF (0-2); WBC Urine 0-5 /HPF (0-5)
[2024-07-30 03:44] LABS: Amphetamine Screen Urine Not Detected (Not Detect); Barbiturates, Urine Not Detected (Not Detect); Benzodiazepines Screen Urine Not Detected (Not Detect); Buprenorphine Scr Not Detected (Not Detect); Cannabinoid Screen Urine Not Detected (Not Detect); Cocaine Screen Urine Not Detected (Not Detect); Fentanyl, urine Not Detected (Not Detect); Methadone Screen, Urine Not Detected (Not Detect); Opiate Screen Urine Not Detected (Not Detect); Oxycodone Screen Urine Not Detected (Not Detect); Phencyclidine Screen Urine Not Detected (Not Detect)
[2024-07-30] MEDS: Ketorolac Tromethamine 15 MG/ML VIAL IVPUSH (04:36)
[2024-07-30 04:41] LABS: Troponin-I High Sensitivity 8.6 ng/L (<3.5-35.0)
== END 2024-07-30 11:11 | disposition home or self-care (01) ==
PROVIDERS: Nurse Practitioner Family; Emergency Provider Emergency Medicine
DX: M79.10 Myalgia, unspecified site (principal); R35.0 Frequency of micturition; M79.605 Pain in left leg; M79.604 Pain in right leg; R07.9 Chest pain, unspecified; N23 Unspecified renal colic; E11.8 Type 2 diabetes mellitus with unspecified complications; F17.210 Nicotine dependence, cigarettes, uncomplicated; F43.10 Post-traumatic stress disorder, unspecified; F33.1 Major depressive disorder, recurrent, moderate; F20.9 Schizophrenia, unspecified; F14.10 Cocaine abuse, uncomplicated; Z59.00 Homelessness unspecified; Z79.4 Long term (current) use of insulin; Z79.84 Long term (current) use of oral hypoglycemic drugs; Z79.899 Other long term (current) drug therapy; Z03.818 Encounter for observation for suspected exposure to other biological agents ruled out
CPT/HCPCS: 0241U; 36415; 71046; 74176; 80053; 80307; 81001; 82550; 83690; 83735; 83880; 84484; 85025; 93005; 96361; 96374; 99284; 99285; J1885

== ENCOUNTER → 2024-07-30 01:27 | Outpatient (BNV) | payer OTHER, SELFPAY | PROVIDERS: Emergency Provider Emergency Medicine; Visit Provider Internal Medicine Cardiovascular Disease | DX: R07.9 Chest pain, unspecified (principal) | CPT/HCPCS: 93010 ==

== ENCOUNTER → 2024-07-30 01:27 | Outpatient (BNV) | payer OTHER, SELFPAY | PROVIDERS: Emergency Provider Emergency Medicine; Visit Provider Radiology Diagnostic Radiology | DX: R10.12 Left upper quadrant pain (principal); R10.11 Right upper quadrant pain; R07.9 Chest pain, unspecified | CPT/HCPCS: 71046; 74176 ==

== ENCOUNTER 2024-08-19 22:08 | Emergency (ER) | payer OTHER, SELFPAY ==
[2024-08-19 22:18] VITALS: BP 154/65; PULSE 90; RESP 16; TEMP 36.4; O2SAT 99; BMI 27.6
[2024-08-19 22:53] LABS: MANUAL DIFF FLAG NO
[2024-08-19 22:54] LABS: Basophils Percent Auto 0.4 % (0-2); Eosinophils Absolute Auto 0.1 X10*3/uL (0.0-0.4); Eosinophils Percent Auto 0.7 % (0-4); Hematocrit 40.4 % (42.0-52.0); Imm Gran Abs Auto 0.06 X10*3/uL (0.00-0.03); Imm Gran Pct Auto 0.5 % (0.0-0.4); Lymphocytes Absolute Auto 2.1 X10*3/uL (1.2-4.9); Mean Corpuscular HGB Conc 34.7 g/dl (31.0-36.0); Mean Corpuscular Volume 80.8 fL (80.0-98.0); Mean Platelet Volume 9.6 fL (9.4-12.4); Monocytes Percent Auto 9.1 % (2-11); Neutrophils Absolute Auto 7.8 x10*3/uL (2.0-8.3); Neutrophils Percent Auto 70.3 % (45-73); Platelet Count 289 X10*3/uL (160-400); Red Cell Distribution Width 13.7 % (11.0-16.0); White Blood Count 11.1 X10*3/uL (4.8-10.8)
[2024-08-19 23:10] LABS: Alanine Aminotransferase 49 U/L (0-40); Albumin Level 4.8 g/dL (3.5-5.0); Alkaline Phosphatase 75 U/L (39-117); Anion Gap 13 (12-20); Aspartate Amino Transferase 41 U/L (5-37); Bilirubin Total 0.6 mg/dL (0.0-1.0); Blood Urea Nitrogen 22 mg/dL (9-16); Calcium 9.5 mg/dL (8.4-10.2); Carbon Dioxide 25 mmol/L (22-29); Chloride 105 mmol/L (96-108); Creatinine Clr Calc Pharmacy 69.2; Estimated Glomerular Filt Rate > 60; Glucose Random 132 mg/dL (60-115); Potassium 4.4 mmol/L (3.3-5.1); Sodium 139 mmol/L (135-145); Total Protein 8.3 g/dL (6.5-8.0)
[2024-08-19 23:34] VITALS: BP 136/79; PULSE 90; TEMP 36.6; O2SAT 97
--- NOTE | 2024-08-20 00:50 | ED.BACK ---
HPI - Back Pain/Injury General Chief Complaint: Abdominal Pain Stated Complaint: back pain & kidney pain Time Seen by Provider: 08/19/24 23:23 Source: patient Mode of arrival: ambulatory Limitations: no limitations History of Present Illness ED Provider: Dr. Cruz Arrington HPI Narrative: 59-year-old male with a history of diabetes, hypertension, hyperlipidemia, depression, cocaine use disorder substance induced psychosis disorder, anxiety who presents emergency department for evaluation of bilateral lower back pain. The patient states that 3 days prior he was working on a roof. He states that he fell through the roof and got stuck. He states that since that time he has been having bilateral flank pain. Describes the pain is a constant, stabbing pain which is worse with movement. The pain is 8/10 at its worst. Patient took ibuprofen with no relief of his pain. He denied fever, chills, frequency, urgency or dysuria. Patient has been seen frequently here in the emergency department over the past 2 months with last ED visit on 07/30/2024. At that time the patient was complaining of bilateral flank pain x1 week and he thought that he was having kidney pain. Patient had a CT scan of the abdomen pelvis which revealed no significant hydronephrosis or hydroureter, he did have perinephric stranding. Urinalysis was negative at that time. Patient's other visits where secondary to depression and substance use disorder. Related Data Home Medications ?Medication ?Instructions ?Recorded ?Confirmed fluticasone furoate 100 1 inh inhalation DAILY 04/12/24 06/28/24 mcg-vilanterol 25 mcg/dose inhalation powder omeprazole 20 mg capsule,delayed 20 mg PO DAILY@0630 04/12/24 06/28/24 release insulin glargine 100 unit/mL 15 unit subcut BEDTIME 06/12/24 06/28/24 subcutaneous solution (Lantus U-100 Insulin) atorvastatin 20 mg tablet 20 mg PO BEDTIME 06/28/24 06/28/24 gabapentin 300 mg capsule 300 mg PO BID 06/28/24 06/28/24 melatonin 10 mg tablet 10 mg PO BEDTIME 06/28/24 06/28/24 metformin 1,000 mg tablet 1,000 mg PO BID 06/28/24 06/28/24 Previous Rx's ?Medication ?Instructions ?Recorded hydroxyzine pamoate 50 mg capsule 50 mg PO BID 30 days #60 caps 04/20/24 trazodone 50 mg tablet 50 mg PO BEDTIME 30 days #30 tabs 04/20/24 insulin lispro 100 unit/mL See Protocol subcut QIDACHS 30 06/15/24 subcutaneous solution (Admelog days #10 mL U-100 Insulin lispro) paroxetine HCl 40 mg tablet 40 mg PO DAILY 30 days #30 tabs 06/15/24 quetiapine 100 mg tablet 100 mg PO DAILY 30 days #30 tabs 06/15/24 quetiapine 300 mg tablet 300 mg PO BEDTIME 30 days #30 tabs 06/15/24 sitagliptin phosphate 100 mg 100 mg PO DAILY 30 days #30 tabs 06/15/24 tablet (Januvia) cyclobenzaprine 10 mg tablet 10 mg PO TID PRN pain, muscle 08/20/24 spasm #15 tabs naproxen 500 mg tablet 500 mg PO BID PRN pain 7 days #14 08/20/24 tabs Allergies Allergy/AdvReac Type Severity Reaction Status Date / Time glipizide (GLIPIZIDE) Allergy Intermediate ITCHY Verified 08/19/24 22:20 oxycodone (From TYLOX) AdvReac Intermediate CHEST PAINS Verified 08/19/24 22:20 Review of Systems Review of Systems: Yes all other systems are reviewed and are negative [facility] Past Medical History [facility] Narrative: Social history: The patient does smoke cigarettes. He rarely drinks alcohol. He denies drug use. Medical History Depression MDD (major depressive disorder), recurrent episode, moderate Cocaine use disorder Substance-induced psychotic disorder Anxiety Diabetes Social History Social History Household Members: None Housing: Homeless Do you presently have visiting nurse or other home services: No Unable to assess alcohol history related to: Refusing to respond Alcohol intake: current Alcohol intake frequency: 0-2 drinks per day Alcohol type: beer Patient Tobacco Use Status: Current everyday Tobacco user Tobacco use type: Cigarette Cigarette Packs Per Day: 1 Cigarettes Per Day: 20.0 Years Smoked: 40 e-Cigarette/Vaping Use: Former Use Second Hand Smoke Exposure: No Substance Use Type: Crack/Cocaine Advance Directives: Yes Advance Directives on File: Yes Advance Directives Date on File: 10/24/21 service: No Sexual orientation: Straight/Heterosexual Physical Exam Vital Signs: Vital Signs: Last Vital Signs Temp 97.9 F 08/19/24 23:34 Pulse 90 08/19/24 23:34 Resp 16 08/19/24 22:18 BP 136/79 08/19/24 23:34 Pulse Ox 97 08/19/24 23:34 O2 Del Method Room Air 08/19/24 23:34 BMI result Body Mass Index 27.6 Vital signs revealed an elevated blood pressure of 136/7 9 Exam: General: Awake, alert in no distress Head: Normocephalic, atraumatic EENT: PERRL, Lids normal, sclera normal, conjunctiva normal, nose normal , ears normal, throat without erythema or exudates Neck: Supple, no adenopathy Lung: breath sounds symmetric, no wheezing, rales or rhonchi Chest: symmetric movement, nontender Heart: regular rate and rhythm, normal S1, S2 no murmurs or rubs Abdomen: soft, non-tender, nondistended, normal bowel sounds Back: Tenderness palpation of the patient's paraspinal muscles in the lumbar sacral area, no point tenderness palpation over the vertebrae Extremities: no deformities, moves all extremities symmetrically Neuro: Awake, alert, oriented, normal speech, cranial nerves intact, moves all extremities symmetrically Psych: Pleasant, cooperative Medical Decision Making Medical Decision Making MDM Narrative: 59-year-old male with ahistory of diabetes, hypertension, hyperlipidemia, depression, cocaine use disorder substance induced psychosis disorder, anxiety who presents emergency department for evaluation of bilateral lower back pain. The patient states that 3 days prior he was working on a roof. He states that he fell through the roof and got stuck. He states that since that time he has been having bilateral flank pain. Describes the pain is a constant, stabbing pain which is worse with movement. The pain is 8/10 at its worst. Patient took ibuprofen with no relief of his pain. He denied fever, chills, frequency, urgency or dysuria. Vital signs revealed an elevated blood pressure otherwise unremarkable. Patient did have tenderness palpation over lumbar sacral paraspinal muscles with no localizing point tenderness over the vertebrae. Differential diagnosis: ?Includes but is not limited to lower back musculoskeletal contusion, sprain, strain Course: 00:57 My independent interpretation patient's laboratory evaluation is as follows: WBC elevated 11,100. BUN elevated 22 with a normal creatinine of 1.14. Glucose elevated 132. AST and ALT elevated 41 and 49. Patient's findings are consistent with contusion to his lower back muscles secondary to his fall through the roof. The patient was treated with Toradol 60 mg IM and Flexeril 10 mg orally. Patient was discharged home with prescription for naproxen 500 mg q.12 hours as needed for pain and Flexeril 10 mg 3 times a day as needed for pain and spasm. He was given printed and verbal instructions and discharged home. Admission/Observation Consideration of admission/observation: Escalation of care including admission/observation considered (Yes) Lab Data [facility] Lab Attestation statement: I reviewed the patient's lab results. 08/19/24 22:48 08/19/24 22:48 Labs: Lab Results 08/19/24 Range/Units 22:48 WBC 11.1 H (4.8-10.8) X10*3/uL RBC 5.00 (4.60-5.80) X10*6/uL Hgb 14.0 (14.0-18.0) g/dl Hct 40.4 L (42.0-52.0) % MCV 80.8 (80.0-98.0) fL MCH 28.0 (27.0-33.0) pg MCHC 34.7 (31.0-36.0) g/dl RDW 13.7 (11.0-16.0) % Plt Count 289 (160-400) X10*3/uL MPV 9.6 (9.4-12.4) fL Immature Gran % (Auto) 0.5 H (0.0-0.4) % Neut % (Auto) 70.3 (45-73) % Lymph % (Auto) 19.0 L (20-40) % [place] % (Auto) 9.1 (2-11) % Eos % (Auto) 0.7 (0-4) % Baso % (Auto) 0.4 (0-2) % Lymph # (Auto) 2.1 (1.2-4.9) X10*3/uL [place] # (Auto) 1.0 (0.1-1.2) X10*3/uL Eos # (Auto) 0.1 (0.0-0.4) X10*3/uL Baso # (Auto) 0.0 (0.0-0.2) X10*3/uL Abs Immat Gran (auto) 0.06 H (0.00-0.03) X10*3/uL Absolute Neuts (auto) 7.8 (2.0-8.3) x10*3/uL Absolute Nucleated RBC 0.000 (0.0-0.012) X10*3/uL Nucleated RBC % (auto) 0.0 (0.0-0.2) /100WBC Sodium 139 (135-145) mmol/L Potassium 4.4 (3.3-5.1) mmol/L Chloride 105 (96-108) mmol/L Carbon Dioxide 25 (22-29) mmol/L Anion Gap 13 (12-20) BUN 22 H (9-16) mg/dL Creatinine 1.14 (0.5-1.4) mg/dL Estim Creat Clear Calc 69.2 Estimated GFR > 60 Random Glucose 132 H (60-115) mg/dL Calcium 9.5 (8.4-10.2) mg/dL Total Bilirubin 0.6 (0.0-1.0) mg/dL AST 41 H (5-37) U/L ALT 49 H (0-40) U/L Alkaline Phosphatase 75 (39-117) U/L Total Protein 8.3 H (6.5-8.0) g/dL Albumin 4.8 (3.5-5.0) g/dL External Record Review External record reviewed: Inpatient record Chronic Conditions Patient?s care impacted by: Diabetes Discharge Plan Discharge Clinical Impression: Contusion of lower back Patient Disposition: Home, Self-Care Instructions: Contusion in Adults (ED) Additional Instructions: Your blood work was unremarkable. Your exam is consistent with a contusion/bruise to your lower back caused by falling through the roof. Take naproxen 500 mg pills, 1 pill every 12 hours as needed for pain Take Tylenol (acetaminophen) 500 mg pills, 2 pills every 6 hours as needed for pain or fever. Take Flexeril (cyclobenzaprine) 10 mg pills, 1 pill every 6-8 hours as needed for pain or spasm. ?This medication will make you sleepy. ?Do not drive or work while taking this medication. Follow-up with your doctor in 2 days. Please return to the emergency department if your symptoms get worse or if you develop any symptoms that are concerning to you. Prescriptions: New cyclobenzaprine 10 mg tablet 10 mg PO TID PRN (Reason: pain, muscle spasm) Qty: 15 0RF naproxen 500 mg tablet 500 mg PO BID PRN (Reason: pain) 7 Days Qty: 14 0RF No Action omeprazole 20 mg capsule,delayed release(DR/EC) 20 mg PO DAILY@0630 fluticasone furoate-vilanterol 100-25 mcg/dose blister with device 1 inh INHALATION DAILY trazodone 50 mg tablet 50 mg PO BEDTIME 30 Days Qty: 30 0RF hydroxyzine pamoate 50 mg capsule 50 mg PO BID 30 Days Qty: 60 0RF insulin glargine [Lantus U-100 Insulin] 100 unit/mL solution 15 unit subcut BEDTIME insulin lispro [Admelog U-100 Insulin lispro] 100 unit/mL Solution See Protocol subcut QIDACHS 30 Days Qty: 10 0RF Protocol: Insulin Correction Scale Less than or equal to 110 ---- Give (units): 0 111 to 150 Give (units): 0 151 to 200 Give (units): 2 201 to 250 Give (units): 4 251 to 300 Give (units): 6 301 to 350 Give (units): 8 Greater than 350 Give (units): 10 Call MD if Blood Glucose > : 350 quetiapine 300 mg Tablet 300 mg PO BEDTIME 30 Days Qty: 30 0RF quetiapine 100 mg Tablet 100 mg PO DAILY 30 Days Qty: 30 0RF paroxetine HCl 40 mg tablet 40 mg PO DAILY 30 Days Qty: 30 0RF Januvia 100 mg tablet 100 mg PO DAILY 30 Days Qty: 30 0RF atorvastatin 20 mg tablet 20 mg PO BEDTIME metformin 1,000 mg tablet 1,000 mg PO BID gabapentin 300 mg capsule 300 mg PO BID melatonin 10 mg tablet 10 mg PO BEDTIME Print Language: Occitan
[2024-08-20] MEDS: Cyclobenzaprine HCl 10 MG TABLET PO (05:56)
[2024-08-20] MEDS: Ketorolac Tromethamine 60 MG/2 ML VIAL IM (05:56)
[2024-08-20 06:03] VITALS: BP 172/89; PULSE 97; RESP 18; TEMP 36.4; O2SAT 97
== END 2024-08-20 06:06 | disposition home or self-care (01) ==
PROVIDERS: Internal Medicine; Emergency Provider Emergency Medicine Emergency Medical Services
DX: S30.0XXA Contusion of lower back and pelvis, initial encounter (principal); E11.9 Type 2 diabetes mellitus without complications; F17.210 Nicotine dependence, cigarettes, uncomplicated; X58.XXXA Exposure to other specified factors, initial encounter; W19.XXXA Unspecified fall, initial encounter; Y93.9 Activity, unspecified; Y92.9 Unspecified place or not applicable; Y99.8 Other external cause status; Z79.899 Other long term (current) drug therapy; Z79.4 Long term (current) use of insulin
CPT/HCPCS: 36415; 80053; 85025; 96372; 99283; 99284; J1885

== ENCOUNTER 2024-09-05 22:21 | Inpatient (IN) | payer OTHER, SELFPAY ==
[2024-09-05 22:25] VITALS: BP 159/79; PULSE 108; RESP 18; TEMP 36.4; O2SAT 98; BMI 26.6
[2024-09-05 23:08] LABS: MANUAL DIFF FLAG NO
[2024-09-05 23:09] LABS: Hematocrit 34.7 % (42.0-52.0); Hemoglobin 12.0 g/dl (14.0-18.0); Imm Gran Abs Auto 0.03 X10*3/uL (0.00-0.03); Imm Gran Pct Auto 0.3 % (0.0-0.4); Lymphocytes Absolute Auto 2.0 X10*3/uL (1.2-4.9); Mean Corpuscular HGB Conc 34.6 g/dl (31.0-36.0); Mean Corpuscular Hemoglobin 28.0 pg (27.0-33.0); Mean Corpuscular Volume 81.1 fL (80.0-98.0); NRBC Abs Auto 0.000 X10*3/uL (0.0-0.012); NRBC Pct Auto 0.0 /100WBC (0.0-0.2); Platelet Count 282 X10*3/uL (160-400); Red Blood Count 4.28 X10*6/uL (4.60-5.80); White Blood Count 8.6 X10*3/uL (4.8-10.8)
[2024-09-05 23:13] LABS: Appearance Urine Clear; Glucose Urine UA Negative (Negative); PH 5.5 (5.0-9.0); Specific Gravity - Urine 1.025 (1.005-1.025); UMIC TRIGGER UACC YES
[2024-09-05 23:22] LABS: Alanine Aminotransferase 24 U/L (0-40); Albumin Level 4.2 g/dL (3.5-5.0); Alkaline Phosphatase 72 U/L (39-117); Anion Gap 13 (12-20); Aspartate Amino Transferase 26 U/L (5-37); Blood Urea Nitrogen 59 mg/dL (9-16); Calcium 8.7 mg/dL (8.4-10.2); Carbon Dioxide 24 mmol/L (22-29); Chloride 102 mmol/L (96-108); Creatinine Clr Calc Pharmacy 68.5; Estimated Glomerular Filt Rate > 60; Potassium 4.3 mmol/L (3.3-5.1); Sodium 135 mmol/L (135-145); Total Protein 7.4 g/dL (6.5-8.0)
[2024-09-06] VITALS (11 sets, daily range): BP systolic 125–153; BP diastolic 59–92; PULSE 63–106; RESP 13–22; TEMP 36.2–36.8; O2SAT 97–100; BMI 27.3
--- NOTE | 2024-09-06 08:32 | ED.GENADULT ---
HPI - General Adult General Chief complaint: Back Pain/Injury Stated complaint: Kidney pain Time Seen by Provider: 09/06/24 06:54 Source: patient Mode of arrival: ambulatory Limitations: no limitations History of Present Illness ED Provider: Dr. Cruz Arrington HPI narrative: 59-year-old male with a history of schizophrenia, auditory hallucinations, PTSD, cocaine use disorder, ?stomach ulcer?, GERD who presents emergency department for evaluation of lower back pain x1 month, abdominal pain, nausea, vomiting x2 days. Patient states that he is a squeezing sensation in his lower back x1 month. This has constant but does not radiate down his legs. He denied numbness or weakness of his lower extremities. Patient denied taking any medications for this pain but he does take aspirin 81 mg daily. Patient states for the last 2 days he has had increased ?burning? heartburn like symptoms which is constant, 8/10 at its worse, located in his epigastric area of his abdomen. He states that he has had 2 episodes where he has vomited red jelly-like material which he thought was blood. He denied lightheadedness, dizziness or weakness. He denied fever or chills. He has not noticed any dark black or tarry stools. Related Data Home Medications ?Medication ?Instructions ?Recorded ?Confirmed fluticasone furoate 100 1 inh inhalation DAILY 04/12/24 06/28/24 mcg-vilanterol 25 mcg/dose inhalation powder omeprazole 20 mg capsule,delayed 20 mg PO DAILY@0630 04/12/24 06/28/24 release insulin glargine 100 unit/mL 15 unit subcut BEDTIME 06/12/24 06/28/24 subcutaneous solution (Lantus U-100 Insulin) atorvastatin 20 mg tablet 20 mg PO BEDTIME 06/28/24 06/28/24 gabapentin 300 mg capsule 300 mg PO BID 06/28/24 06/28/24 melatonin 10 mg tablet 10 mg PO BEDTIME 06/28/24 06/28/24 metformin 1,000 mg tablet 1,000 mg PO BID 06/28/24 06/28/24 Previous Rx's ?Medication ?Instructions ?Recorded hydroxyzine pamoate 50 mg capsule 50 mg PO BID 30 days #60 caps 04/20/24 trazodone 50 mg tablet 50 mg PO BEDTIME 30 days #30 tabs 04/20/24 insulin lispro 100 unit/mL See Protocol subcut QIDACHS 30 06/15/24 subcutaneous solution (Admelog days #10 mL U-100 Insulin lispro) paroxetine HCl 40 mg tablet 40 mg PO DAILY 30 days #30 tabs 06/15/24 quetiapine 100 mg tablet 100 mg PO DAILY 30 days #30 tabs 06/15/24 quetiapine 300 mg tablet 300 mg PO BEDTIME 30 days #30 tabs 06/15/24 sitagliptin phosphate 100 mg 100 mg PO DAILY 30 days #30 tabs 06/15/24 tablet (Januvia) cyclobenzaprine 10 mg tablet 10 mg PO TID PRN pain, muscle 08/20/24 spasm #15 tabs naproxen 500 mg tablet 500 mg PO BID PRN pain 7 days #14 08/20/24 tabs Allergies Allergy/AdvReac Type Severity Reaction Status Date / Time glipizide (GLIPIZIDE) Allergy Intermediate ITCHY Verified 09/05/24 22:27 oxycodone (From TYLOX) AdvReac Intermediate CHEST PAINS Verified 09/05/24 22:27 Review of Systems Review of Systems: Yes all other systems are reviewed and are negative [facility] Past Medical History Medical History Depression MDD (major depressive disorder), recurrent episode, moderate Cocaine use disorder Substance-induced psychotic disorder Anxiety Diabetes Social History Social History Household Members: None Housing: Homeless Do you presently have visiting nurse or other home services: No Unable to assess alcohol history related to: Refusing to respond Alcohol intake: current Alcohol intake frequency: 0-2 drinks per day Alcohol type: beer Patient Tobacco Use Status: Current everyday Tobacco user Tobacco use type: Cigarette Cigarette Packs Per Day: 1 Cigarettes Per Day: 20.0 Years Smoked: 40 e-Cigarette/Vaping Use: Former Use Second Hand Smoke Exposure: No Substance Use Type: Crack/Cocaine Advance Directives: Yes Advance Directives on File: Yes Advance Directives Date on File: 10/24/21 Do you have a plan to hurt others: No Plan service: No Sexual orientation: Straight/Heterosexual Physical Exam ED Vital Signs: Vital Signs - 24 hr 09/05/24 22:25 09/06/24 00:43 09/06/24 06:11 Temperature 97.6 F 97.4 F 98.2 F Pulse Rate 108 H 106 H 95 Respiratory Rate 18 18 Blood Pressure 159/79 H 153/92 H 150/83 H Pulse Oximetry 98 99 99 Oxygen Delivery Method Room Air Room Air Room Air 09/06/24 08:14 09/06/24 08:16 09/06/24 10:42 Temperature Pulse Rate 91 Respiratory Rate 20 15 20 Blood Pressure 143/78 H Pulse Oximetry 97 Oxygen Delivery Method Room Air 09/06/24 13:08 Temperature Pulse Rate Respiratory Rate 22 H Blood Pressure Pulse Oximetry Oxygen Delivery Method BMI result Body Mass Index 26.6 Vital signs revealed an elevated blood pressures and elevated heart rate. Exam: General: Awake, alert in no distress Head: Normocephalic, atraumatic EENT: PERRL, Lids normal, sclera normal, conjunctiva normal, nose normal , ears normal, throat without erythema or exudates Neck: Supple, no adenopathy Lung: breath sounds symmetric, no wheezing, rales or rhonchi Chest: symmetric movement, nontender Heart: regular rate and rhythm, normal S1, S2 no murmurs or rubs Abdomen: soft, moderate epigastric tenderness, nondistended, normal bowel sounds Back: no vertebral tenderness, no CVAT, tenderness palpation of paraspinal muscles in the lumbar sacral area bilaterally, no spasm of these muscles Extremities: no deformities, moves all extremities symmetrically Neuro: Awake, alert, oriented, normal speech, cranial nerves intact, moves all extremities symmetrically Psych: Pleasant, cooperative Medications Administered Generic Name Dose Route Start Last Admin Trade Name Freq PRN Reason Stop Dose Admin Sodium Chloride 1,000 mls @ 125 mls/hr 09/06/24 12:48 09/06/24 13:03 Ns IV 09/06/24 20:47 125 mls/hr .Q8H STA Administration Discontinued Medications Generic Name Dose Route Start Last Admin Trade Name Freq PRN Reason Stop Dose Admin Hydromorphone HCl 0.5 mg 09/06/24 07:44 09/06/24 08:14 Hydromorphone Hcl 0.5 Mg/0.5 Ml Syringe IVPUSH 09/06/24 07:45 0.5 mg ONCE ONE Administration Protocol Hydromorphone HCl 1 mg 09/06/24 09:21 09/06/24 10:42 Hydromorphone Hcl 1 Mg/Ml Syringe IVPUSH 09/06/24 09:22 1 mg ONCE STA Administration Protocol Hydromorphone HCl 1 mg 09/06/24 12:48 09/06/24 13:08 Hydromorphone Hcl 1 Mg/Ml Syringe IVPUSH 09/06/24 12:49 1 mg ONCE STA Administration Protocol Sodium Chloride 1,000 mls @ 999 mls/hr 09/06/24 07:44 09/06/24 10:21 Ns IV 09/06/24 08:44 Infused .Q1H1M STA Infusion Ondansetron HCl 4 mg 09/06/24 07:44 09/06/24 08:13 Ondansetron Hcl 4 Mg/2 Ml Vial IVPUSH 09/06/24 07:45 4 mg ONCE ONE Administration Pantoprazole Sodium 80 mg 09/06/24 09:15 09/06/24 10:41 Pantoprazole Sodium 40 Mg/10 Ml Vial IVPUSH 09/06/24 09:16 80 mg ONCE ONE Administration Medical Decision Making Medical Decision Making MDM Narrative: 59-year-old male with a history of schizophrenia, auditory hallucinations, PTSD, cocaine use disorder, ?stomach ulcer?, GERD who presents emergency department for evaluation of lower back pain x1 month, abdominal pain, nausea, vomiting x2 days. Patient states that he is a squeezing sensation in his lower back x1 month. This has constant but does not radiate down his legs. He denied numbness or weakness of his lower extremities. Patient denied taking any medications for this pain but he does take aspirin 81 mg daily. Patient states for the last 2 days he has had increased ?burning? heartburn like symptoms which is constant, 8/10 at its worse, located in his epigastric area of his abdomen. He states that he has had 2 episodes where he has vomited red jelly-like material which he thought was blood. He denied lightheadedness, dizziness or weakness. He denied fever or chills. He has not noticed any dark black or tarry stools. Vital signs revealed an elevated blood pressure and elevated heart rate otherwise unremarkable. Exam did reveal epigastric tenderness as well as paraspinal tenderness in the lumbar sacral area in his lower back. Differential diagnosis: ?Includes but is not limited to GERD, peptic ulcer disease, upper GI bleed, pancreatitis, diverticulitis, musculoskeletal pain Course: 12:18 My independent interpretation patient's laboratory evaluation is as follows: Normocytic anemia with an H&H of 12.0 and 34.7. Repeat H&H at 10:00 hours was 10.5 and 31.0. Patient's baseline H&H from 08/19/2024 was 14 and 40.4. BUN elevated 59 with normal creatinine 1.06. Glucose elevated 235. LFTs were normal. Urinalysis was positive for protein, trace ketones. Patient refused rectal exam and I did order occult stool testing that the patient has has not been able to move his bowels. Given his significant drop in H&H from his baseline in his elevated BUN I am concerned that he may have an upper GI bleed. Patient was treated with Zofran 4 mg IV, Dilaudid 0.5 mg IV, Dilaudid 1 mg IV, Protonix 80 mg IV.. 12:49 I did discuss the patient's presentation with the covering ice maker. She recommended admitting the patient for EGD. The patient states that he would agree to this procedure. I did discuss the patient's presentation with the covering hospitalist and the patient will be admitted for further treatment. Patient states that his pain is returning, therefore I ordered Dilaudid 1 mg IV and normal saline at 125 cc/hour. Admission/Observation Consideration of admission/observation: Escalation of care including admission/observation considered (Yes) Consult Healthcare Provider Management of the patient was discussed with: Hospitalist (Dr. Torres) and [employer] Dec[employer]ator (Dr. Butts ) Lab Data MDM Lab Attestation statement: I reviewed the patient's lab results. 09/06/24 08:49 09/05/24 22:55 Labs: Lab Results 09/05/24 09/06/24 09/06/24 Range/Units 22:55 08:46 08:49 WBC 8.6 (4.8-10.8) X10*3/uL RBC 4.28 L (4.60-5.80) X10*6/uL Hgb 12.0 L 10.5 L (14.0-18.0) g/dl Hct 34.7 L 31.0 L (42.0-52.0) % MCV 81.1 (80.0-98.0) fL MCH 28.0 (27.0-33.0) pg MCHC 34.6 (31.0-36.0) g/dl RDW 13.4 (11.0-16.0) % Plt Count 282 (160-400) X10*3/uL MPV 9.6 (9.4-12.4) fL Immature Gran % (Auto) 0.3 (0.0-0.4) % Neut % (Auto) 65.5 (45-73) % Lymph % (Auto) 22.6 (20-40) % [place] % (Auto) 10.6 (2-11) % Eos % (Auto) 0.8 (0-4) % Baso % (Auto) 0.2 (0-2) % Lymph # (Auto) 2.0 (1.2-4.9) X10*3/uL [place] # (Auto) 0.9 (0.1-1.2) X10*3/uL Eos # (Auto) 0.1 (0.0-0.4) X10*3/uL Baso # (Auto) 0.0 (0.0-0.2) X10*3/uL Abs Immat Gran (auto) 0.03 (0.00-0.03) X10*3/uL Absolute Neuts (auto) 5.6 (2.0-8.3) x10*3/uL Absolute Nucleated RBC 0.000 (0.0-0.012) X10*3/uL Nucleated RBC % (auto) 0.0 (0.0-0.2) /100WBC Sodium 135 (135-145) mmol/L Potassium 4.3 (3.3-5.1) mmol/L Chloride 102 (96-108) mmol/L Carbon Dioxide 24 (22-29) mmol/L Anion Gap 13 (12-20) BUN 59 H (9-16) mg/dL Creatinine 1.06 (0.5-1.4) mg/dL Estim Creat Clear Calc 68.5 Estimated GFR > 60 Random Glucose 235 H (60-115) mg/dL Calcium 8.7 D (8.4-10.2) mg/dL Total Bilirubin 0.7 (0.0-1.0) mg/dL AST 26 (5-37) U/L ALT 24 (0-40) U/L Alkaline Phosphatase 72 (39-117) U/L Total Protein 7.4 (6.5-8.0) g/dL Albumin 4.2 (3.5-5.0) g/dL Lipase 26 (8-78) U/L Urine Color Yellow Urine Appearance Clear Urine pH 5.5 (5.0-9.0) Ur Specific [place] 1.025 (1.005-1.025) Urine Protein 100 (2+) H (Neg-Trace) mg/dL Urine Glucose (UA) Negative (Negative) mg/dL Urine Ketones Trace (Negative) mg/dL Urine Blood Negative (Negative) Urine Nitrite Negative (Negative) Ur Leukocyte Esterase Negative (Negative) Urine RBC 0-2 (0-2) /HPF Urine WBC 0-5 (0-5) /HPF Ur Squamous Epith Cells 0-2 (0-2) /HPF Urine Bacteria None Seen (None Seen) Hyaline Casts 0-2 (0-2) /LPF Blood Type O Positive Antibody Screen NEGATIVE Chronic Conditions Patient?s care impacted by: Other (Schizophrenia) Critical Care Time Critical Care Time Critical Care Time: Yes Total Critical Care Time: 35 Attestation: Critical Care: The patient was critically ill with a high probability of imminent or life threatening deterioration. I spent greater than 30 minutes of discontinuous time evaluating the patient,delivering critical care at the bedside, discussing and evaluating pertinent data with consultants. Critical care time does not include time spent performing separately billable procedures or teaching. Total time spent performing critical care was 35 minutes. Discharge Plan Discharge Clinical Impression: Acute upper gastrointestinal bleeding, Anemia Patient Disposition: Admitted As Inpatient Print Language: Jordanian
[2024-09-06 08:57] LABS: Hematocrit 31.0 % (42.0-52.0); Hemoglobin 10.5 g/dl (14.0-18.0)
[2024-09-06 12:37] LABS: Lipase 26 U/L (8-78)
--- NOTE | 2024-09-06 13:05 | PM.DS ---
DS: Providers Provider Date of Service: 09/06/24 Date of discharge: 09/06/24 Primary care physician: Unknown Physician Consults: 09/06/24 13:02 Consult to Gastroenterology Routine Consulting Provider: Nallely Butts Reason for consultation: gi bleed Physical Exam Vital Signs: Vital Signs: Last Vital Signs Temp 98.2 F 09/06/24 06:11 Pulse 91 09/06/24 08:16 Resp 20 09/06/24 10:42 BP 143/78 H 09/06/24 08:16 Pulse Ox 97 09/06/24 08:16 O2 Del Method Room Air 09/06/24 08:16 BMI result Body Mass Index 26.6 DS: Data Data Completed and Pending Labs on day of discharge: Laboratory Results - last 24 hr 09/05/24 09/06/24 09/06/24 22:55 08:46 08:49 WBC 8.6 RBC 4.28 L Hgb 12.0 L 10.5 L Hct 34.7 L 31.0 L MCV 81.1 MCH 28.0 MCHC 34.6 RDW 13.4 Plt Count 282 MPV 9.6 Immature Gran % (Auto) 0.3 Neut % (Auto) 65.5 Lymph % (Auto) 22.6 [place] % (Auto) 10.6 Eos % (Auto) 0.8 Baso % (Auto) 0.2 Lymph # (Auto) 2.0 [place] # (Auto) 0.9 Eos # (Auto) 0.1 Baso # (Auto) 0.0 Abs Immat Gran (auto) 0.03 Absolute Neuts (auto) 5.6 Absolute Nucleated RBC 0.000 Nucleated RBC % (auto) 0.0 Sodium 135 Potassium 4.3 Chloride 102 Carbon Dioxide 24 Anion Gap 13 BUN 59 H Creatinine 1.06 Estim Creat Clear Calc 68.5 Estimated GFR > 60 Random Glucose 235 H Calcium 8.7 D Total Bilirubin 0.7 AST 26 ALT 24 Alkaline Phosphatase 72 Total Protein 7.4 Albumin 4.2 Lipase 26 Urine Color Yellow Urine Appearance Clear Urine pH 5.5 Ur Specific [place] 1.025 Urine Protein 100 (2+) H Urine Glucose (UA) Negative Urine Ketones Trace Urine Blood Negative Urine Nitrite Negative Ur Leukocyte Esterase Negative Urine RBC 0-2 Urine WBC 0-5 Ur Squamous Epith Cells 0-2 Urine Bacteria None Seen Hyaline Casts 0-2 Blood Type O Positive Antibody Screen NEGATIVE Discharge Plan Discharge Clinical Impression: Acute upper gastrointestinal bleeding, Anemia Patient Disposition: Admitted As Inpatient Print Language: Korean
--- NOTE | 2024-09-06 13:05 | PM.IMHP ---
History of Present Illness Date of Service: 09/06/24 <Charisma Rodriguez NP - Last Filed: 09/07/24 11:41> Chief Complaint: gi bleed <Charisma Rodriguez NP - Last Filed: 09/07/24 11:41> 59-year-old male with a history of schizophrenia, auditory hallucinations, PTSD, cocaine use disorder, ?stomach ulcer?, GERD who presents emergency department for evaluation of lower back pain x1 month, abdominal pain, nausea, vomiting x2 days. Patient states that he is a squeezing sensation in his lower back x1 month. This has constant but does not radiate down his legs. He denied numbness or weakness of his lower extremities. Patient denied taking any medications for this pain but he does take aspirin 81 mg daily. Patient states for the last 2 days he has had increased ?burning? heartburn like symptoms which is constant, 8/10 at its worse, located in his epigastric area of his abdomen. He states that he has had 2 episodes where he has vomited red jelly-like material which he thought was blood. He denied lightheadedness, dizziness or weakness. He denied fever or chills. He has not noticed any dark black or tarry stools. <Charisma Rodriguez NP - Last Filed: 09/07/24 11:41> Review of Systems Review of Systems: Denies any recent fever chills or decrease in appetite respiratory denies any shortness of breath or cough cardiovascular denied chest pain gastrointestinal denies any dysphagia abdominal pain nausea vomiting or diarrhea genitourinary denies any dysuria frequency or hematuria musculoskeletal denies any joint pain or swelling neuropsych denies any weakness or seizures all other systems reviewed are negative <Charisma Rodriguez NP - Last Filed: 09/07/24 11:41> [facility] Medical History: Medical History Depression MDD (major depressive disorder), recurrent episode, moderate Cocaine use disorder Substance-induced psychotic disorder Anxiety Diabetes <Charisma Rodriguez NP - Last Filed: 09/07/24 11:41> Social History: Social History Household Members: None Housing: Homeless Do you presently have visiting nurse or other home services: No Unable to assess alcohol history related to: Refusing to respond Alcohol intake: current Alcohol intake frequency: 0-2 drinks per day Alcohol type: beer Patient Tobacco Use Status: Never used Tobacco Tobacco use type: Cigarette Cigarette Packs Per Day: 1 Cigarettes Per Day: 20.0 Years Smoked: 40 e-Cigarette/Vaping Use: Former Use Second Hand Smoke Exposure: No Substance Use Type: Crack/Cocaine Advance Directives Date on File: 10/24/21 service: No Sexual orientation: Straight/Heterosexual <Charisma Rodriguez NP - Last Filed: 09/07/24 11:41> Meds Allergies/Adverse reactions: Allergies Allergy/AdvReac Type Severity Reaction Status Date / Time glipizide (GLIPIZIDE) Allergy Intermediate ITCHY Verified 09/05/24 22:27 <Charisma Rodriguez NP - Last Filed: 09/07/24 11:41> Active Medications: Current Medications Acetaminophen (Acetaminophen 325 Mg Tablet) 650 mg PO Q6H PRN PRN Reason: Pain, Mild 1-3,fever,headache Calcium Carbonate (Calcium Carbonate 750 Mg Tab.Chew) 750 mg PO Q4H PRN PRN Reason: Heartburn Sodium Chloride (Ns) 1,000 mls @ 125 mls/hr IV .Q8H STA Stop: 09/06/24 20:47 Last Admin: 09/06/24 13:03 Dose: 125 mls/hr Melatonin (Melatonin 3 Mg Tablet) 6 mg PO BEDTIME PRN PRN Reason: Insomnia Sodium Chloride (0.9 % Sodium Chloride Flush 3 Ml Syringe) 3 ml IVFLUSH QSHIFT NILE <Charisma Rodriguez NP - Last Filed: 09/07/24 11:41> Home medications: Home Medications ?Medication ?Instructions ?Recorded ?Confirmed ?Last Taken ?Type omeprazole 20 mg capsule,delayed 20 mg PO DAILY@0630 04/12/24 09/06/24 Unknown History release melatonin 10 mg tablet 10 mg PO BEDTIME 06/28/24 09/06/24 Unknown History metformin 1,000 mg tablet 1,000 mg PO BID 06/28/24 09/06/24 Unknown History albuterol sulfate 90 mcg/actuation 2 puff inhalation QID PRN wheezing 09/06/24 09/06/24 Unknown History aerosol inhaler aspirin 81 mg tablet,delayed 81 mg PO DAILY 09/06/24 09/06/24 Unknown History release atorvastatin 40 mg tablet 40 mg PO DAILY 09/06/24 09/06/24 Unknown History docusate sodium 100 mg capsule 100 mg PO DAILY 09/06/24 09/06/24 Unknown History gabapentin 300 mg capsule 300 mg PO TID PRN neuropathy 09/06/24 09/06/24 Unknown History insulin glargine 100 unit/mL (3 15 unit subcut BEDTIME 09/06/24 09/06/24 Unknown History mL) subcutaneous pen (Lantus Solostar U-100 Insulin) paroxetine HCl 30 mg tablet 30 mg PO DAILY PRN depressive 09/06/24 09/06/24 Unknown History disorder quetiapine 400 mg tablet 400 mg PO BEDTIME PRN depressive 09/06/24 09/06/24 Unknown History disorder quetiapine 50 mg tablet 50 mg PO BID PRN AGITATION/RACING 09/06/24 09/06/24 Unknown History THOUGHTS trazodone 50 mg tablet 50 mg PO BEDTIME PRN Sleep 09/06/24 09/06/24 Unknown History <Charisma Rodriguez NP - Last Filed: 09/07/24 11:41> Physical Exam Vital Signs and Narrative: Vital Signs: Last Vital Signs Temp 98.2 F 09/06/24 06:11 Pulse 91 09/06/24 08:16 Resp 20 09/06/24 10:42 BP 143/78 H 09/06/24 08:16 Pulse Ox 97 09/06/24 08:16 O2 Del Method Room Air 09/06/24 08:16 BMI result Body Mass Index 26.6 <Charisma Rodriguez NP - Last Filed: 09/07/24 11:41> Appearing in no acute distress head is normocephalic atraumatic eyes pupils are PERRLA sclera is anicteric mouth throat mucous membranes are intact and moist neck is supple no lymphadenopathy, no JVD noted lung sounds are clear to auscultation heart regular rate rhythm, clear S1, S2 positive bowel sounds, abdomen is soft, nontender neuro patient is alert x3, no focal deficits <Charisma Rodriguez NP - Last Filed: 09/07/24 11:41> Results Labs CBC and Chem 7: 09/07/24 05:18 09/07/24 05:19 <Charisma Rodriguez NP - Last Filed: 09/07/24 11:41> Labs: Laboratory Results - last 24 hr 09/05/24 09/06/24 22:55 08:46 MCV 81.1 MCH 28.0 MCHC 34.6 RDW 13.4 Plt Count 282 MPV 9.6 Immature Gran % (Auto) 0.3 Neut % (Auto) 65.5 Lymph % (Auto) 22.6 [place] % (Auto) 10.6 Eos % (Auto) 0.8 Baso % (Auto) 0.2 Lymph # (Auto) 2.0 [place] # (Auto) 0.9 Eos # (Auto) 0.1 Baso # (Auto) 0.0 Abs Immat Gran (auto) 0.03 Absolute Neuts (auto) 5.6 Absolute Nucleated RBC 0.000 Nucleated RBC % (auto) 0.0 Anion Gap 13 Estim Creat Clear Calc 68.5 Estimated GFR > 60 Random Glucose 235 H Calcium 8.7 D Total Bilirubin 0.7 AST 26 ALT 24 Alkaline Phosphatase 72 Total Protein 7.4 Albumin 4.2 Lipase 26 Urine Color Yellow Urine Appearance Clear Urine pH 5.5 Ur Specific [place] 1.025 Urine Protein 100 (2+) H Urine Glucose (UA) Negative Urine Ketones Trace Urine Blood Negative Urine Nitrite Negative Ur Leukocyte Esterase Negative Urine RBC 0-2 Urine WBC 0-5 Ur Squamous Epith Cells 0-2 Urine Bacteria None Seen Hyaline Casts 0-2 Blood Type O Positive Antibody Screen NEGATIVE <Charisma Rodriguez NP - Last Filed: 09/07/24 11:41> Assessment and Plan (1) Anemia: Status: Acute <Charisma Rodriguez NP - Last Filed: 09/07/24 11:41> 89-year-old man admitted with possible GI bleed Acute blood loss anemia likely secondary to GI bleed Likely upper Vomiting of ?jelly emesis?x2 Stable H&H at this time, no active bleeding GI consultation for likely upper endoscopy IV Protonix b.i.d. Diabetes mellitus type 2 Sliding scale, ADA diet Mental health Continue home medications Substance abuse Addiction team consultation DVT prophylaxis with pneumatic compression boots due GI bleed Full code <Charisma Rodriguez NP - Last Filed: 09/07/24 11:41> Quality Stroke Does the patient have a stroke diagnosis?: No <Cecy Torres MD - Last Filed: 09/06/24 19:24> VTE Prior VTE?: No <Cecy Torres MD - Last Filed: 09/06/24 19:24> VTE Risk Level:: Medical - moderate - high <Charisma Rodriguez NP - Last Filed: 09/07/24 11:41> VTE Device Contraindication: N/A - Device Ordered <Charisma Rodriguez NP - Last Filed: 09/07/24 11:41> VTE Drug Contraindication: Treatment Not Indicated <Charisma Rodriguez NP - Last Filed: 09/07/24 11:41>
--- NOTE | 2024-09-06 13:59 | PM.GICN ---
History of Present Illness Data of Consult Service Date: 09/06/24 Requesting physician: Cruz Arrington Primary Care Provider: Unknown Physician HPI Reason for consult: GI bleed This is a 59-year-old gentleman with past medical history of hypertension, hyperlipidemia, seizure disorder, who presented to the hospital today for abdominal pain, nausea, hematemesis. Patient reports for the last 2 days, he has been having severe abdominal pain, that gets worse with eating. Has been avoiding to eat. On Thursday, he also noted some coffee-ground emesis. Earlier today, he had reddish gelatinous emesis. Does not notice any changes in stool. Does not report any NSAID use. Drinks occasionally. Does not report smoking. He does report getting lightheaded [place] on getting up rapidly. On telemetry was noted to have a heart rate 80-90 on sitting up. Labs with baseline hemoglobin of 14 that has dropped to 10 this morning. BUN to creatinine ratio elevated. No abdominal imaging available from this admission. Review of Systems Review of Systems: Yes all other systems are reviewed and are negative [facility] Past Medical History Medical History Depression MDD (major depressive disorder), recurrent episode, moderate Cocaine use disorder Substance-induced psychotic disorder Anxiety Diabetes Social History Social History Household Members: None Housing: Homeless Do you presently have visiting nurse or other home services: No Unable to assess alcohol history related to: Refusing to respond Alcohol intake: current Alcohol intake frequency: 0-2 drinks per day Alcohol type: beer Patient Tobacco Use Status: Never used Tobacco Tobacco use type: Cigarette Cigarette Packs Per Day: 1 Cigarettes Per Day: 20.0 Years Smoked: 40 Smoked in Last 30 Days: No e-Cigarette/Vaping Use: Former Use Second Hand Smoke Exposure: No Use of substances other than those prescribed or required for medical reasons: No Substance Use Type: Crack/Cocaine Advance Directives: Yes Advance Directives on File: Yes Advance Directives Date on File: 10/24/21 Do you have a plan to hurt others: No Plan Nutrition Risks: No Nutritional Risk service: No Sexual orientation: Straight/Heterosexual Meds Allergies Allergy/AdvReac Type Severity Reaction Status Date / Time glipizide (GLIPIZIDE) Allergy Intermediate ITCHY Verified 09/05/24 22:27 oxycodone (From TYLOX) AdvReac Intermediate CHEST PAINS Verified 09/05/24 22:27 Active Medications: Current Medications Acetaminophen (Acetaminophen 325 Mg Tablet) 650 mg PO Q6H PRN PRN Reason: Pain, Mild 1-3,fever,headache Calcium Carbonate (Calcium Carbonate 750 Mg Tab.Chew) 750 mg PO Q4H PRN PRN Reason: Heartburn Sodium Chloride (Ns) 1,000 mls @ 125 mls/hr IV .Q8H STA Stop: 09/06/24 20:47 Last Admin: 09/06/24 13:03 Dose: 125 mls/hr Magnesium Hydroxide (Milk Of Magnesia 30 Ml Oral.Susp) 30 ml PO DAILY PRN PRN Reason: Constipation Melatonin (Melatonin 3 Mg Tablet) 6 mg PO BEDTIME PRN PRN Reason: Insomnia Ondansetron HCl (Ondansetron Hcl 4 Mg/2 Ml Vial) 4 mg IVPUSH Q8H PRN PRN Reason: Nausea and Vomiting Pantoprazole Sodium (Pantoprazole Sodium 40 Mg/10 Ml Vial) 40 mg IVPUSH BID@0630,1630 [facility] Sodium Chloride (0.9 % Sodium Chloride Flush 3 Ml Syringe) 3 ml IVFLUSH QSHIFT [facility] Home Medications ?Medication ?Instructions ?Recorded ?Confirmed ?Last Taken ?Type fluticasone furoate 100 1 inh inhalation DAILY 04/12/24 06/28/24 Unknown History mcg-vilanterol 25 mcg/dose inhalation powder omeprazole 20 mg capsule,delayed 20 mg PO DAILY@0630 04/12/24 06/28/24 Unknown History release atorvastatin 20 mg tablet 20 mg PO BEDTIME 06/28/24 06/28/24 Unknown History gabapentin 300 mg capsule 300 mg PO BID 06/28/24 06/28/24 Unknown History melatonin 10 mg tablet 10 mg PO BEDTIME 06/28/24 06/28/24 Unknown History metformin 1,000 mg tablet 1,000 mg PO BID 06/28/24 06/28/24 Unknown History aspirin 81 mg tablet,delayed 81 mg PO DAILY 09/06/24 Unknown History release insulin glargine 100 unit/mL (3 20 unit subcut BEDTIME 09/06/24 09/06/24 Unknown History mL) subcutaneous pen (Lantus Solostar U-100 Insulin) paroxetine HCl 30 mg tablet 30 mg PO DAILY PRN depressive 09/06/24 Unknown History disorder quetiapine 400 mg tablet 400 mg PO BEDTIME PRN depressive 09/06/24 Unknown History disorder quetiapine 50 mg tablet 50 mg PO BID PRN AGITATION/RACING 09/06/24 Unknown History THOUGHTS Physical Exam Vital Signs: Vital Signs: Last Vital Signs Temp 98.2 F 09/06/24 06:11 Pulse 91 09/06/24 08:16 Resp 22 H 09/06/24 13:08 BP 143/78 H 09/06/24 08:16 Pulse Ox 97 09/06/24 08:16 O2 Del Method Room Air 09/06/24 08:16 BMI result Body Mass Index 26.6 No apparent distress Nonicteric Abdomen soft, mild tenderness on palpation in the epigastrium, no guarding, no rebound tenderness Alert and oriented x3, Results Labs 09/06/24 08:49 09/05/24 22:55 Labs: Short CBC 09/05/24 09/06/24 Range/Units 22:55 08:49 WBC 8.6 (4.8-10.8) X10*3/uL Hgb 12.0 L 10.5 L (14.0-18.0) g/dl Hct 34.7 L 31.0 L (42.0-52.0) % Plt Count 282 (160-400) X10*3/uL BMP 09/05/24 22:55 Sodium 135 Potassium 4.3 Chloride 102 Carbon Dioxide 24 BUN 59 H Creatinine 1.06 Calcium 8.7 D Liver Function 09/05/24 Range/Units 22:55 Total Bilirubin 0.7 (0.0-1.0) mg/dL AST 26 (5-37) U/L ALT 24 (0-40) U/L Alkaline Phosphatase 72 (39-117) U/L Albumin 4.2 (3.5-5.0) g/dL Urine 09/05/24 Range/Units 22:55 Urine Color Yellow Urine Appearance Clear Urine pH 5.5 (5.0-9.0) Ur Specific [place] 1.025 (1.005-1.025) Urine Protein 100 (2+) H (Neg-Trace) mg/dL Urine Glucose (UA) Negative (Negative) mg/dL Assessment and Plan (1) Abdominal pain: Status: Inactive (2) Acute upper gastrointestinal bleeding: Status: Acute (3) Hematemesis: Status: Acute (4) Anemia: Status: Acute Plan High suspicion for peptic ulcer disease, other differentials include gastritis, duodenitis, esophagitis. Plan: -please maintain at least 2 IV access at all times -fluid resuscitation - patient continues to have orthostasis on exam -CBC b.i.d. -type and screen -please transfuse PRBC for hemoglobin less than 7 -IV PPI b.i.d. -okay for clear liquid diet today -please keep NPO after midnight for EGD tomorrow Thank you for allowing me to participate in his care. Please do not hesitate to reach out for any questions or concerns. Procedures Date of Service Date of Service: 09/06/24
[2024-09-06 18:08] LABS: Cannabinoid Screen Urine Not Detected (Not Detect)
--- NOTE | 2024-09-06 18:46 | PC.NURSE ---
patient arrived from ED at 182 ,alert and oriented,resting in bed ,has no complaints at present,bed alarm on for safety
--- NOTE | 2024-09-06 19:34 | PHA.MEDREC ---
Pharmacy Consult ? Medication Reconciliation Pharmacy has completed the medication reconciliation. Spoke to patient to confirm med list. Patient states he is no longer taking Cyclobenzaprine 10 mg. Patient confirmed Lantus Solostar 15 units at bedtime, Insulin Lispro TID per sliding scale.
--- NOTE | 2024-09-06 19:36 | PHA.MEDREC ---
Addendum entered by Vera Joshi RPh 09/06/24 19:54: [facility] REVIEWED Original Note: Pharmacy Consult ? Medication Reconciliation Pharmacy has completed the medication reconciliation. Spoke to patient to confirm med list. Patient states he is no longer taking Cyclobenzaprine 10 mg. Patient confirmed Lantus Solostar 15 units at bedtime, Insulin Lispro TID per sliding scale. Patient states he last took his medications over 2 weeks ago.
[2024-09-06 20:32] LABS: Glucose, Whole Blood 272 mg/dL (60-115)
[2024-09-06 21:37] LABS: Hematocrit 24.7 % (42.0-52.0); Hemoglobin 8.7 g/dl (14.0-18.0)
[2024-09-06] MEDS: 0.9 % Sodium Chloride Flush 3 ML SYRINGE IVFLUSH (23:15)
[2024-09-06 23:35] LABS: Glucose, Whole Blood 168 mg/dL (60-115)
[2024-09-07] VITALS (9 sets, daily range): BP systolic 98–137; BP diastolic 37–70; PULSE 58–82; RESP 16–18; TEMP 36.1–37; O2SAT 98–100
[2024-09-07 05:28] LABS: Glucose, Whole Blood 129 mg/dL (60-115)
[2024-09-07 05:57] LABS: Hematocrit 26.3 % (42.0-52.0); Hemoglobin 9.0 g/dl (14.0-18.0); Mean Corpuscular HGB Conc 34.2 g/dl (31.0-36.0); Mean Corpuscular Hemoglobin 28.0 pg (27.0-33.0); Mean Corpuscular Volume 81.9 fL (80.0-98.0); NRBC Abs Auto 0.000 X10*3/uL (0.0-0.012); NRBC Pct Auto 0.0 /100WBC (0.0-0.2); Platelet Count 215 X10*3/uL (160-400); Red Blood Count 3.21 X10*6/uL (4.60-5.80); White Blood Count 6.4 X10*3/uL (4.8-10.8)
[2024-09-07 06:12] LABS: Anion Gap 9 (12-20); Blood Urea Nitrogen 29 mg/dL (9-16); Calcium 7.9 mg/dL (8.4-10.2); Carbon Dioxide 24 mmol/L (22-29); Chloride 109 mmol/L (96-108); Creatinine Clr Calc Pharmacy 88.1; Estimated Glomerular Filt Rate > 60; Potassium 3.9 mmol/L (3.3-5.1); Sodium 138 mmol/L (135-145)
[2024-09-07 07:33] LABS: Glucose, Whole Blood 144 mg/dL (60-115)
--- NOTE | 2024-09-07 08:25 | HO.PM.IMPN ---
Subjective Subjective Date of Service: 09/07/24 Review of Systems Follow up Upper GI bleed c/o epigastric pain Denies any nausea or vomiting Physical Exam Vital Signs: Vital Signs: Last Vital Signs Temp 98.1 F 09/07/24 07:57 Pulse 67 09/07/24 07:57 Resp 16 09/07/24 07:57 BP 113/57 L 09/07/24 07:57 Pulse Ox 99 09/07/24 07:57 O2 Del Method Room Air 09/07/24 07:57 BMI result Body Mass Index 27.3 Objective Data Active Medications Acetaminophen (Acetaminophen 325 Mg Tablet) 650 mg PO Q6H PRN PRN Reason: Pain, Mild 1-3,fever,headache Albuterol Sulfate (Albuterol Sulfate 90 Mcg 8 Gm Inhaler) 2 puff INHALE QID PRN PRN Reason: Wheezing Calcium Carbonate (Calcium Carbonate 750 Mg Tab.Chew) 750 mg PO Q4H PRN PRN Reason: Heartburn Dextrose (Dextrose 50 % 25 Gm/50 Ml Syringe) 25 gm IVPUSH Q15M PRN; Protocol PRN Reason: per Hypoglycemia Standing Ord. Docusate Sodium (Docusate Sodium 100 Mg Capsule) 100 mg PO DAILY NILE Gabapentin (Gabapentin 300 Mg Capsule) 300 mg PO TID PRN PRN Reason: neuropathy Glucose (Glucose Gel 15 Gm Gel..Gram.) 15 gm PO Q15M PRN; Protocol PRN Reason: per Hypoglycemia Standing Ord. Hydroxyzine HCl (Hydroxyzine Hcl 50 Mg Tablet) 50 mg PO BID [facility] Insulin Glargine (Insulin Glargine,Hum.Rec.Anlog 100 Unit/Ml 10 Ml Vial) 15 unit SUBCUT BEDTIME [facility] Insulin Human Lispro (Insulin Lispro 100 Unit/Ml 3 Ml Vial) 0 unit SUBCUT Q6H [facility]; Protocol Last Admin: 09/07/24 05:25 Dose: Not Given Documented By: FAUSTINO Non-Admin Reason: No Insulin Coverage Magnesium Hydroxide (Milk Of Magnesia 30 Ml Oral.Susp) 30 ml PO DAILY PRN PRN Reason: Constipation Melatonin (Melatonin 3 Mg Tablet) 6 mg PO BEDTIME PRN PRN Reason: Insomnia Ondansetron HCl (Ondansetron Hcl 4 Mg/2 Ml Vial) 4 mg IVPUSH Q8H PRN PRN Reason: Nausea and Vomiting Pantoprazole Sodium (Pantoprazole Sodium 40 Mg/10 Ml Vial) 40 mg IVPUSH BID@0630,1630 [facility] Last Admin: 09/07/24 05:31 Dose: 40 mg Documented By: FAUSTINO Paroxetine HCl (Paroxetine Hcl 30 Mg Tablet) 30 mg PO DAILY PRN PRN Reason: depressive disorder Quetiapine Fumarate (Quetiapine Fumarate 50 Mg Tablet) 50 mg PO BID PRN PRN Reason: AGITATION/RACING THOUGHTS Quetiapine Fumarate (Quetiapine Fumarate 400 Mg Tablet) 400 mg PO BEDTIME PRN PRN Reason: depressive disorder Sodium Chloride (0.9 % Sodium Chloride Flush 3 Ml Syringe) 3 ml IVFLUSH QSHIFT [facility] Last Admin: 09/07/24 07:14 Dose: Not Given Documented By: IRVIN Non-Admin Reason: Previously Administered Trazodone HCl (Trazodone Hcl 50 Mg Tablet) 50 mg PO BEDTIME PRN PRN Reason: Sleep Labs 09/07/24 05:18 09/07/24 05:19 Labs: Laboratory Results - last 24 hr 09/05/24 09/06/24 09/06/24 22:55 08:46 17:42 MCV MCH MCHC RDW Plt Count MPV Absolute Nucleated RBC Nucleated RBC % (auto) Anion Gap Estim Creat Clear Calc Estimated GFR POC Glucose Random Glucose Calcium Lipase 26 Urine Opiates Screen Not Detected Ur Buprenorphine Scrn Not Detected Ur Oxycodone Screen Not Detected Urine Methadone Screen Not Detected Urine Fentanyl Screen Not Detected Ur Barbiturates Screen Not Detected Ur Phencyclidine Scrn Not Detected Ur Amphetamines Screen Not Detected U Benzodiazepines Scrn Not Detected Urine Cocaine Screen Not Detected U Marijuana (THC) Screen Not Detected Blood Type O Positive Antibody Screen NEGATIVE 09/06/24 09/06/24 09/07/24 20:25 23:30 05:18 MCV 81.9 MCH 28.0 MCHC 34.2 RDW 13.4 Plt Count 215 MPV 10.0 Absolute Nucleated RBC 0.000 Nucleated RBC % (auto) 0.0 Anion Gap Estim Creat Clear Calc Estimated GFR POC Glucose 272 H 168 H Random Glucose Calcium Lipase Urine Opiates Screen Ur Buprenorphine Scrn Ur Oxycodone Screen Urine Methadone Screen Urine Fentanyl Screen Ur Barbiturates Screen Ur Phencyclidine Scrn Ur Amphetamines Screen U Benzodiazepines Scrn Urine Cocaine Screen U Marijuana (THC) Screen Blood Type Antibody Screen 09/07/24 09/07/24 09/07/24 05:19 05:25 07:12 MCV MCH MCHC RDW Plt Count MPV Absolute Nucleated RBC Nucleated RBC % (auto) Anion Gap 9 L Estim Creat Clear Calc 88.1 Estimated GFR > 60 POC Glucose 129 H 144 H Random Glucose 138 H Calcium 7.9 L D Lipase Urine Opiates Screen Ur Buprenorphine Scrn Ur Oxycodone Screen Urine Methadone Screen Urine Fentanyl Screen Ur Barbiturates Screen Ur Phencyclidine Scrn Ur Amphetamines Screen U Benzodiazepines Scrn Urine Cocaine Screen U Marijuana (THC) Screen Blood Type Antibody Screen Assessment and Plan (1) Hematemesis: Status: Acute Plan 89-year-old man admitted with possible GI bleed Acute blood loss anemia likely secondary to GI bleed Likely upper Vomiting of ?jelly emesis?x2 prior to admission Stable H&H at this time, no active bleeding GI consultation>EGD today IV Protonix b.i.d. HH trending down, tx for >7 Diabetes mellitus type 2 Sliding scale, ADA diet Mental health Continue home medications Substance abuse Addiction team consultation DVT prophylaxis with pneumatic compression boots due GI bleed Full code Quality Stroke Does the patient have a stroke diagnosis?: No VTE Prior VTE?: No VTE Risk Level:: Medical - moderate - high VTE Device Contraindication: N/A - Device Ordered VTE Drug Contraindication: Treatment Not Indicated
--- NOTE | 2024-09-07 09:45 | MHC.CM.PN ---
PATIENT STATES THAT HE STAYS AT [facility] BUT PLANS ON RESIDING WITH HIS SISTER [place]ON [place]. SISTER LIVES IN [place]. PCP IS DR MEDELLIN OF [facility]. HE HAS NOT BEEN TO SEE PCP RECENTLY BUT IS STILL ACTIVE ACCORDING TO [employer], [place]. CASE MANAGEMENT FOLLOWING PATIENT WILL LIKELY NEED TRANSPORT [facility] AT TIME OF DC. IMM 09/07 IN CHART
[2024-09-07 11:41] LABS: Glucose, Whole Blood 160 mg/dL (60-115)
--- NOTE | 2024-09-07 13:49 | HO.ANESPROP2 ---
[facility] Active Problems Active Problems: All Active Problems (Updated 09/07/24 @ 13:25 by Judit Kidd RN) Hematemesis (Acute) Anemia (Acute) Acute upper gastrointestinal bleeding (Acute) PTSD (post-traumatic stress disorder) (Acute) Cocaine abuse (Acute) Chronic schizophrenia (Acute) Homeless single person (Acute) Auditory hallucination (Acute) Acute left-sided weakness (Acute) Cocaine use disorder (Acute) MDD (major depressive disorder), recurrent episode, moderate (Acute) Past Medical History Medical History (Updated 09/07/24 @ 13:25 by Judit Kidd, RN) Asthma Depression MDD (major depressive disorder), recurrent episode, moderate Cocaine use disorder Substance-induced psychotic disorder Anxiety Diabetes Family History Family history of problems with anesthesia: No Surgical History Surgical History (Updated 09/07/24 @ 13:26 by Judit Kidd RN) History of facial surgery H/O knee surgery History of Problems with Anesthesia: No Social History Social History Household Members: None Housing: Homeless Do you presently have visiting nurse or other home services: No Unable to assess alcohol history related to: Refusing to respond Alcohol intake: current Alcohol intake frequency: a few times a month Alcohol type: beer Patient Tobacco Use Status: Current everyday Tobacco user Tobacco use type: Cigarette Cigarette Packs Per Day: 1 Cigarettes Per Day: 20.0 Years Smoked: 35 e-Cigarette/Vaping Use: Former Use Second Hand Smoke Exposure: No Substance Use Type: Crack/Cocaine Advance Directives Date on File: 10/23/21 service: No Sexual orientation: Straight/Heterosexual Meds Allergies Allergy/AdvReac Type Severity Reaction Status Date / Time glipizide (GLIPIZIDE) Allergy Intermediate ITCHY Verified 09/07/24 13:26 Active Medications: Current Medications Acetaminophen (Acetaminophen 325 Mg Tablet) 650 mg PO Q6H PRN PRN Reason: Pain, Mild 1-3,fever,headache Albuterol Sulfate (Albuterol Sulfate 90 Mcg 8 Gm Inhaler) 2 puff INHALE QID PRN PRN Reason: Wheezing Calcium Carbonate (Calcium Carbonate 750 Mg Tab.Chew) 750 mg PO Q4H PRN PRN Reason: Heartburn Dextrose (Dextrose 50 % 25 Gm/50 Ml Syringe) 25 gm IVPUSH Q15M PRN; Protocol PRN Reason: per Hypoglycemia Standing Ord. Docusate Sodium (Docusate Sodium 100 Mg Capsule) 100 mg PO DAILY [facility] Last Admin: 09/07/24 09:36 Dose: 100 mg Gabapentin (Gabapentin 300 Mg Capsule) 300 mg PO TID PRN PRN Reason: neuropathy Glucose (Glucose Gel 15 Gm Gel..Gram.) 15 gm PO Q15M PRN; Protocol PRN Reason: per Hypoglycemia Standing Ord. Hydroxyzine HCl (Hydroxyzine Hcl 50 Mg Tablet) 50 mg PO BID [facility] Last Admin: 09/07/24 09:36 Dose: 50 mg Insulin Glargine (Insulin Glargine,Hum.Rec.Anlog 100 Unit/Ml 10 Ml Vial) 15 unit SUBCUT BEDTIME [facility] Insulin Human Lispro (Insulin Lispro 100 Unit/Ml 3 Ml Vial) 0 unit SUBCUT Q6H [facility]; Protocol Last Admin: 09/07/24 11:48 Dose: Not Given Magnesium Hydroxide (Milk Of Magnesia 30 Ml Oral.Susp) 30 ml PO DAILY PRN PRN Reason: Constipation Melatonin (Melatonin 3 Mg Tablet) 6 mg PO BEDTIME PRN PRN Reason: Insomnia Morphine Sulfate (Morphine Sulfate 2 Mg/Ml Cartridge) 2 mg IVPUSH Q4H PRN; Protocol PRN Reason: Pain, Severe (Pain Scale 7-10) Ondansetron HCl (Ondansetron Hcl 4 Mg/2 Ml Vial) 4 mg IVPUSH Q8H PRN PRN Reason: Nausea and Vomiting Pantoprazole Sodium (Pantoprazole Sodium 40 Mg/10 Ml Vial) 40 mg IVPUSH BID@0630,1630 [facility] Last Admin: 09/07/24 05:31 Dose: 40 mg Paroxetine HCl (Paroxetine Hcl 30 Mg Tablet) 30 mg PO DAILY PRN PRN Reason: depressive disorder Quetiapine Fumarate (Quetiapine Fumarate 50 Mg Tablet) 50 mg PO BID PRN PRN Reason: AGITATION/RACING THOUGHTS Quetiapine Fumarate (Quetiapine Fumarate 400 Mg Tablet) 400 mg PO BEDTIME PRN PRN Reason: depressive disorder Sodium Chloride (0.9 % Sodium Chloride Flush 3 Ml Syringe) 3 ml IVFLUSH QSHIFT [facility] Last Admin: 09/07/24 07:14 Dose: Not Given Trazodone HCl (Trazodone Hcl 50 Mg Tablet) 50 mg PO BEDTIME PRN PRN Reason: Sleep Home Medications ?Medication ?Instructions ?Recorded ?Confirmed ?Last Taken ?Type omeprazole 20 mg capsule,delayed 20 mg PO DAILY@0630 04/12/24 09/06/24 Unknown History release melatonin 10 mg tablet 10 mg PO BEDTIME 06/28/24 09/06/24 Unknown History metformin 1,000 mg tablet 1,000 mg PO BID 06/28/24 09/06/24 Unknown History albuterol sulfate 90 mcg/actuation 2 puff inhalation QID PRN wheezing 09/06/24 09/06/24 Unknown History aerosol inhaler aspirin 81 mg tablet,delayed 81 mg PO DAILY 09/06/24 09/06/24 Unknown History release atorvastatin 40 mg tablet 40 mg PO DAILY 09/06/24 09/06/24 Unknown History docusate sodium 100 mg capsule 100 mg PO DAILY 09/06/24 09/06/24 Unknown History gabapentin 300 mg capsule 300 mg PO TID PRN neuropathy 09/06/24 09/06/24 Unknown History insulin glargine 100 unit/mL (3 15 unit subcut BEDTIME 09/06/24 09/06/24 Unknown History mL) subcutaneous pen (Lantus Solostar U-100 Insulin) paroxetine HCl 30 mg tablet 30 mg PO DAILY PRN depressive 09/06/24 09/06/24 Unknown History disorder quetiapine 400 mg tablet 400 mg PO BEDTIME PRN depressive 09/06/24 09/06/24 Unknown History disorder quetiapine 50 mg tablet 50 mg PO BID PRN AGITATION/RACING 09/06/24 09/06/24 Unknown History THOUGHTS trazodone 50 mg tablet 50 mg PO BEDTIME PRN Sleep 09/06/24 09/06/24 Unknown History Exam Height,Weight and Vital Signs: Height 5 ft 6 in Weight 76.6 kg Last Vital Signs Temp 98.6 F 09/07/24 13:27 Pulse 70 09/07/24 13:27 Resp 16 09/07/24 13:27 BP 134/64 09/07/24 13:27 Pulse Ox 100 09/07/24 13:27 O2 Del Method Room Air 09/07/24 13:27 Pertinent Lab Results Pertinent Lab Results: Laboratory Tests 09/05/24 09/06/24 09/06/24 22:55 08:46 08:49 WBC 8.6 RBC 4.28 L Hgb 12.0 L 10.5 L Hct 34.7 L 31.0 L MCV 81.1 MCH 28.0 MCHC 34.6 RDW 13.4 Plt Count 282 MPV 9.6 Immature Gran % (Auto) 0.3 Neut % (Auto) 65.5 Lymph % (Auto) 22.6 [place] % (Auto) 10.6 Eos % (Auto) 0.8 Baso % (Auto) 0.2 Lymph # (Auto) 2.0 [place] # (Auto) 0.9 Eos # (Auto) 0.1 Baso # (Auto) 0.0 Abs Immat Gran (auto) 0.03 Absolute Neuts (auto) 5.6 Absolute Nucleated RBC 0.000 Nucleated RBC % (auto) 0.0 Sodium 135 Potassium 4.3 Chloride 102 Carbon Dioxide 24 Anion Gap 13 BUN 59 H Creatinine 1.06 Estim Creat Clear Calc 68.5 Estimated GFR > 60 POC Glucose Random Glucose 235 H Calcium 8.7 D Total Bilirubin 0.7 AST 26 ALT 24 Alkaline Phosphatase 72 Total Protein 7.4 Albumin 4.2 Lipase 26 Urine Color Yellow Urine Appearance Clear Urine pH 5.5 Ur Specific [place] 1.025 Urine Protein 100 (2+) H Urine Glucose (UA) Negative Urine Ketones Trace Urine Blood Negative Urine Nitrite Negative Ur Leukocyte Esterase Negative Urine RBC 0-2 Urine WBC 0-5 Ur Squamous Epith Cells 0-2 Urine Bacteria None Seen Hyaline Casts 0-2 Urine Opiates Screen Ur Buprenorphine Scrn Ur Oxycodone Screen Urine Methadone Screen Urine Fentanyl Screen Ur Barbiturates Screen Ur Phencyclidine Scrn Ur Amphetamines Screen U Benzodiazepines Scrn Urine Cocaine Screen U Marijuana (THC) Screen Blood Type O Positive Antibody Screen NEGATIVE 09/06/24 09/06/24 09/06/24 17:42 20:25 21:26 WBC RBC Hgb 8.7 L Hct 24.7 L D MCV MCH MCHC RDW Plt Count MPV Immature Gran % (Auto) Neut % (Auto) Lymph % (Auto) [place] % (Auto) Eos % (Auto) Baso % (Auto) Lymph # (Auto) [place] # (Auto) Eos # (Auto) Baso # (Auto) Abs Immat Gran (auto) Absolute Neuts (auto) Absolute Nucleated RBC Nucleated RBC % (auto) Sodium Potassium Chloride Carbon Dioxide Anion Gap BUN Creatinine Estim Creat Clear Calc Estimated GFR POC Glucose 272 H Random Glucose Calcium Total Bilirubin AST ALT Alkaline Phosphatase Total Protein Albumin Lipase Urine Color Urine Appearance Urine pH Ur Specific [place] Urine Protein Urine Glucose (UA) Urine Ketones Urine Blood Urine Nitrite Ur Leukocyte Esterase Urine RBC Urine WBC Ur Squamous Epith Cells Urine Bacteria Hyaline Casts Urine Opiates Screen Not Detected Ur Buprenorphine Scrn Not Detected Ur Oxycodone Screen Not Detected Urine Methadone Screen Not Detected Urine Fentanyl Screen Not Detected Ur Barbiturates Screen Not Detected Ur Phencyclidine Scrn Not Detected Ur Amphetamines Screen Not Detected U Benzodiazepines Scrn Not Detected Urine Cocaine Screen Not Detected U Marijuana (THC) Screen Not Detected Blood Type Antibody Screen 09/06/24 09/07/24 09/07/24 23:30 05:18 05:19 WBC 6.4 RBC 3.21 L D Hgb 9.0 L Hct 26.3 L MCV 81.9 MCH 28.0 MCHC 34.2 RDW 13.4 Plt Count 215 MPV 10.0 Immature Gran % (Auto) Neut % (Auto) Lymph % (Auto) [place] % (Auto) Eos % (Auto) Baso % (Auto) Lymph # (Auto) [place] # (Auto) Eos # (Auto) Baso # (Auto) Abs Immat Gran (auto) Absolute Neuts (auto) Absolute Nucleated RBC 0.000 Nucleated RBC % (auto) 0.0 Sodium 138 Potassium 3.9 Chloride 109 H Carbon Dioxide 24 Anion Gap 9 L BUN 29 H Creatinine 0.89 Estim Creat Clear Calc 88.1 Estimated GFR > 60 POC Glucose 168 H Random Glucose 138 H Calcium 7.9 L D Total Bilirubin AST ALT Alkaline Phosphatase Total Protein Albumin Lipase Urine Color Urine Appearance Urine pH Ur Specific [place] Urine Protein Urine Glucose (UA) Urine Ketones Urine Blood Urine Nitrite Ur Leukocyte Esterase Urine RBC Urine WBC Ur Squamous Epith Cells Urine Bacteria Hyaline Casts Urine Opiates Screen Ur Buprenorphine Scrn Ur Oxycodone Screen Urine Methadone Screen Urine Fentanyl Screen Ur Barbiturates Screen Ur Phencyclidine Scrn Ur Amphetamines Screen U Benzodiazepines Scrn Urine Cocaine Screen U Marijuana (THC) Screen Blood Type Antibody Screen 09/07/24 09/07/24 09/07/24 05:25 07:12 11:20 WBC RBC Hgb Hct MCV MCH MCHC RDW Plt Count MPV Immature Gran % (Auto) Neut % (Auto) Lymph % (Auto) [place] % (Auto) Eos % (Auto) Baso % (Auto) Lymph # (Auto) [place] # (Auto) Eos # (Auto) Baso # (Auto) Abs Immat Gran (auto) Absolute Neuts (auto) Absolute Nucleated RBC Nucleated RBC % (auto) Sodium Potassium Chloride Carbon Dioxide Anion Gap BUN Creatinine Estim Creat Clear Calc Estimated GFR POC Glucose 129 H 144 H 160 H Random Glucose Calcium Total Bilirubin AST ALT Alkaline Phosphatase Total Protein Albumin Lipase Urine Color Urine Appearance Urine pH Ur Specific [place] Urine Protein Urine Glucose (UA) Urine Ketones Urine Blood Urine Nitrite Ur Leukocyte Esterase Urine RBC Urine WBC Ur Squamous Epith Cells Urine Bacteria Hyaline Casts Urine Opiates Screen Ur Buprenorphine Scrn Ur Oxycodone Screen Urine Methadone Screen Urine Fentanyl Screen Ur Barbiturates Screen Ur Phencyclidine Scrn Ur Amphetamines Screen U Benzodiazepines Scrn Urine Cocaine Screen U Marijuana (THC) Screen Blood Type Antibody Screen Airway Mallampati Class: II (poor dentition, missing multiple teeth, one loose tooth top left) TM Dist: >3cm Neck ROM: Full Heart: rrr Lungs: cta Assessment and Plan Assessment Anesthesia Assessment: Anesthesia Plan Discussed and Chart Reviewed Final Anesthetic Review Family History of Problems with Anesthesia: No History of Problems with Anesthesia: No NPO: Yes ASA Class: III Final Preanesthetic Review: No Changes in Pt Med Stat, Meds/Allgs Chart Reviewed and Consent Obtained/Reviewed Patient Risk: Intermediate Procedure Risk: Intermediate Anesthetic Plan Anesthetic Plan: MAC: Disposition: Standard PACU
[2024-09-07 13:50] LABS: Glucose, Whole Blood 144 mg/dL (60-115)
--- NOTE | 2024-09-07 14:07 | MHC.SHP ---
Pre-Procedural Eval Section A - 24 Hr Update-Section A only Date of Service: 09/07/24 The patient is an INPATIENT: Yes The patient has been examined within 24 hours of the surgical procedure. The History & Physical has been completed within 30 days and I have reviewed it.: Yes Section B - Complete if H&P > 30 days Chief Complaint: GI bleed Allergies: Allergies Allergy/AdvReac Type Severity Reaction Status Date / Time glipizide (GLIPIZIDE) Allergy Intermediate ITCHY Verified 09/07/24 13:26 Plan Diagnosis/Plan: Unchanged I have reviewed the history and physical and performed a pertinent physical examination on my patient. No changes have occurred unless specified. Time Spent With Patient Time: Total time managing care of this patient today ____ minutes.
--- NOTE | 2024-09-07 14:37 | P.OP_ITS ---
Operative Note Operative Note Date of Service: 09/07/24 Narrative: Procedure: Esophagogastroduodenoscopy Endoscopist: Nallely Butts MD Indication: UGIB Anesthesia Provider: Rick Do CRNA Anesthesia Type: MAC ?? EGD Procedure:?? The procedure, indications, preparation and potential complications were reviewed with the patient, who indicated understanding and gave written informed consent to proceed. A physical exam was performed. A distal attachment tip was attached and the endoscope was introduced through the mouth, and advanced to the second part of duodenum. The mucosa was carefully examined on slow withdrawal of the endoscope. The patient tolerated the procedure well. There were no immediate complications.? ? EGD Findings:? * Esophagus:? Normal mucosa noted in the entire esophagus. The Z line was at 38 cm and irregular up to 37 cm. There was an ulcer right at the GE junction measuring 15 mm with visible vessel. A resolution ultra clip was placed for mechanical hemostasis and to prevent rebleeding. * Stomach:? Erythema and edema of the antrum was noted with a single erosion of pylorus at 12 o clock. Retroflexion was performed in the cardia. Cold forceps biopsies were taken from the gastric antrum. * Duodenum:? Erythema and erosions noted in the duodenal sweep. Cold forceps biopsies were taken for histology. EGD Impressions:? * Esophagitis with Foard II a ulcer (Endoclip) * Gastritis (biopsy) * Duodenitis (biopsy) ?? Recommendations:?? * Follow biopsy results. Our office will call or send a letter with results within 7-10 days. * Continue IV Protonix b.i.d x 72 hours total for this ulcer at high risk of rebleeding then switch to PO BID x 8 weeks and then once daily. * If H pylori +, patient will be prescribed eradication therapy followed by test of cure. * Avoid NSAIDs. * Repeat EGD in 8-12 weeks to assess for healing. Above has been reviewed with the patient.
--- NOTE | 2024-09-07 14:59 | MHC.CM.PN ---
ENDOSCOPY TODAY POSSIBLE DC THURSDAY CM FOLLOWING
[2024-09-07] MEDS: 0.9 % Sodium Chloride Flush 3 ML SYRINGE IVFLUSH (16:19)
[2024-09-07 18:28] LABS: Glucose, Whole Blood 234 mg/dL (60-115)
[2024-09-07] MEDS: Insulin Glargine,Hum.rec.anlog 100 UNIT/ML 10 ML VIAL 15 UNIT SUBCUT (21:10)
[2024-09-08 00:49] LABS: Glucose, Whole Blood 218 mg/dL (60-115)
[2024-09-08] MEDS: 0.9 % Sodium Chloride Flush 3 ML SYRINGE IVFLUSH ×3 (00:55→17:02)
[2024-09-08 04:00] VITALS: BP 103/56; PULSE 91; RESP 16; TEMP 36.4; O2SAT 95
[2024-09-08 06:09] LABS: Glucose, Whole Blood 131 mg/dL (60-115)
[2024-09-08 06:14] LABS: Hematocrit 24.9 % (42.0-52.0); Hemoglobin 8.6 g/dl (14.0-18.0); Mean Corpuscular HGB Conc 34.5 g/dl (31.0-36.0); Mean Corpuscular Hemoglobin 28.3 pg (27.0-33.0); Mean Corpuscular Volume 81.9 fL (80.0-98.0); NRBC Abs Auto 0.000 X10*3/uL (0.0-0.012); NRBC Pct Auto 0.0 /100WBC (0.0-0.2); Platelet Count 198 X10*3/uL (160-400); Red Blood Count 3.04 X10*6/uL (4.60-5.80); White Blood Count 4.2 X10*3/uL (4.8-10.8)
--- NOTE | 2024-09-08 07:33 | HO.POSTANES ---
Post Anesthesia Evaluation Post Anesthesia Evaluation Date of Service: 09/08/24 Vital Signs: Vital Signs Temp Pulse Resp BP Pulse Ox O2 Del Method 09/08/24 04:00 97.6 F 91 16 103/56 L 95 Room Air Anesthesia: TIVA Mental Status: Awake Pain Control: Satisfactory Nausea/Vomiting: None Hydration: Adequate Anesthesia-Related Issues: No Anes. Related Issues
[2024-09-08 08:00] VITALS: BP 113/55; PULSE 69; RESP 16; TEMP 36.3; O2SAT 98
[2024-09-08 11:27] LABS: Glucose, Whole Blood 196 mg/dL (60-115)
--- NOTE | 2024-09-08 13:24 | HO.PM.IMPN ---
Subjective Subjective Date of Service: 09/08/24 Interval History: seen and examined this morning follow up for GI bleeding, anemia No abdominal pain, no further vomiting Review of Systems Review of Systems: Yes all other systems are reviewed and are negative Constitutional Constitutional: Denies chills and Denies fever(s) Cardiovascular Cardiovascular: Denies chest pain, Denies palpitations and Denies dyspnea Respiratory Respiratory: Denies cough and Denies dyspnea Endocrine Endocrine: Denies palpitations Physical Exam Vital Signs: Vital Signs: Last Vital Signs Temp 97.3 F 09/08/24 08:00 Pulse 69 09/08/24 08:00 Resp 16 09/08/24 08:00 BP 113/55 L 09/08/24 08:00 Pulse Ox 98 09/08/24 08:00 O2 Del Method Room Air 09/08/24 08:00 O2 Flow Rate 8 09/07/24 14:45 BMI result Body Mass Index 27.3 Const: General: cooperative, comfortable, no acute distress, alert and awake Nutritional Appearance: well nourished Orientation/consciousness: patient oriented x3 HEENT: Head: Yes normocephalic and Yes atraumatic Resp: Effort & Inspection: normal respiratory effort and no respiratory distress Auscultation: clear to auscultation bilaterally Cardio: Rate: regular rate Rhythm: regular rhythm GI: Palpation (GI): Soft to palpation and nontender Neuro: General: patient oriented x3 Objective Data Active Medications Acetaminophen (Acetaminophen 325 Mg Tablet) 650 mg PO Q6H PRN PRN Reason: Pain, Mild 1-3,fever,headache Albuterol Sulfate (Albuterol Sulfate 90 Mcg 8 Gm Inhaler) 2 puff INHALE QID PRN PRN Reason: Wheezing Calcium Carbonate (Calcium Carbonate 750 Mg Tab.Chew) 750 mg PO Q4H PRN PRN Reason: Heartburn Dextrose (Dextrose 50 % 25 Gm/50 Ml Syringe) 25 gm IVPUSH Q15M PRN; Protocol PRN Reason: per Hypoglycemia Standing Ord. Docusate Sodium (Docusate Sodium 100 Mg Capsule) 100 mg PO DAILY [facility] Last Admin: 09/08/24 09:33 Dose: 100 mg Documented By: DAVIS Gabapentin (Gabapentin 300 Mg Capsule) 300 mg PO TID PRN PRN Reason: neuropathy Glucose (Glucose Gel 15 Gm Gel..Gram.) 15 gm PO Q15M PRN; Protocol PRN Reason: per Hypoglycemia Standing Ord. Hydroxyzine HCl (Hydroxyzine Hcl 50 Mg Tablet) 50 mg PO BID [facility] Last Admin: 09/08/24 09:33 Dose: 50 mg Documented By: DAVIS Insulin Glargine (Insulin Glargine,Hum.Rec.Anlog 100 Unit/Ml 10 Ml Vial) 15 unit SUBCUT BEDTIME [facility] Last Admin: 09/07/24 21:10 Dose: 15 unit Documented By: STACEY Comments: Insulin Human Lispro (Insulin Lispro 100 Unit/Ml 3 Ml Vial) 0 unit SUBCUT Q6H [facility]; Protocol Last Admin: 09/08/24 12:15 Dose: 2 unit Documented By: DAVIS Magnesium Hydroxide (Milk Of Magnesia 30 Ml Oral.Susp) 30 ml PO DAILY PRN PRN Reason: Constipation Melatonin (Melatonin 3 Mg Tablet) 6 mg PO BEDTIME PRN PRN Reason: Insomnia Morphine Sulfate (Morphine Sulfate 2 Mg/Ml Cartridge) 2 mg IVPUSH Q4H PRN; Protocol PRN Reason: Pain, Severe (Pain Scale 7-10) Ondansetron HCl (Ondansetron Hcl 4 Mg/2 Ml Vial) 4 mg IVPUSH Q8H PRN PRN Reason: Nausea and Vomiting Pantoprazole Sodium (Pantoprazole Sodium 40 Mg/10 Ml Vial) 40 mg IVPUSH BID@0630,1630 [facility] Last Admin: 09/08/24 08:04 Dose: 40 mg Documented By: STACEY Paroxetine HCl (Paroxetine Hcl 30 Mg Tablet) 30 mg PO DAILY PRN PRN Reason: depressive disorder Quetiapine Fumarate (Quetiapine Fumarate 50 Mg Tablet) 50 mg PO BID PRN PRN Reason: AGITATION/RACING THOUGHTS Quetiapine Fumarate (Quetiapine Fumarate 400 Mg Tablet) 400 mg PO BEDTIME PRN PRN Reason: depressive disorder Last Admin: 09/07/24 23:24 Dose: 400 mg Documented By: STACEY Sodium Chloride (0.9 % Sodium Chloride Flush 3 Ml Syringe) [facility] Admin: 09/08/24 08:05 Dose: 3 ml Documented By: STACEY Tramadol HCl (Tramadol Hcl 50 Mg Tablet) 25 mg PO Q6H PRN PRN Reason: Pain, Moderate(Pain Scale 4-6) Last Admin: 09/07/24 23:25 Dose: 25 mg Documented By: STACEY Trazodone HCl (Trazodone Hcl 50 Mg Tablet) 50 mg PO BEDTIME PRN PRN Reason: Sleep Last Admin: 09/07/24 23:24 Dose: 50 mg Documented By: STACEY Labs 09/08/24 05:45 09/07/24 05:19 Labs: Laboratory Results - last 24 hr 09/07/24 09/07/24 09/08/24 13:45 18:24 00:46 MCV MCH MCHC RDW Plt Count MPV Absolute Nucleated RBC Nucleated RBC % (auto) POC Glucose 144 H 234 H 218 H 09/08/24 09/08/24 09/08/24 05:45 06:06 11:18 MCV 81.9 MCH 28.3 MCHC 34.5 RDW 13.3 Plt Count 198 MPV 9.9 Absolute Nucleated RBC 0.000 Nucleated RBC % (auto) 0.0 POC Glucose 131 H 196 H Assessment and Plan (1) Anemia: Status: Acute Plan This is a 59-year-old male with history of DM who presented with nausea, vomiting and abdominal pain with concern for bloody emesis admitted with possible GI bleed Acute blood loss anemia likely secondary to upper GI bleed Stable H&H at this time, no active bleeding, no further vomiting seen by GI and had EGD 09/07 - showing esophagitis with ulcer status post endo clip, gastritis, duodenitis plan for IV Protonix b.i.d x 72 hours then transition to p.o. b.i.d. x8 weeks, then once daily after that; avoid NSAIDs on asa at baseline, on hold, resume in am Diabetes mellitus type 2 Hold metformin, januvia Continue Lantus, Sliding scale, ADA diet Mental health Continue home medications DVT prophylaxis with pneumatic compression boots due GI bleed Full code Quality Stroke Does the patient have a stroke diagnosis?: No VTE Prior VTE?: No VTE Risk Level:: Medical - moderate - high VTE Device Contraindication: N/A - Device Ordered VTE Drug Contraindication: Treatment Not Indicated
[2024-09-08 15:55] VITALS: BP 114/58; PULSE 66; RESP 12; TEMP 36.1; O2SAT 100
[2024-09-08 16:47] LABS: Glucose, Whole Blood 104 mg/dL (60-115)
[2024-09-08 19:33] LABS: Glucose, Whole Blood 155 mg/dL (60-115)
[2024-09-08 19:45] VITALS: BP 110/55; PULSE 68; RESP 18; TEMP 36.4; O2SAT 100
[2024-09-08] MEDS: Insulin Glargine,Hum.rec.anlog 100 UNIT/ML 10 ML VIAL 15 UNIT SUBCUT (20:45)
[2024-09-08 23:01] VITALS: BP 110/55; PULSE 68; RESP 18; TEMP 36.4
[2024-09-09 03:14] VITALS: BP 125/59; PULSE 85; RESP 18; TEMP 36.4; O2SAT 99
[2024-09-09] MEDS: 0.9 % Sodium Chloride Flush 3 ML SYRINGE IVFLUSH ×2 (04:43→08:02)
[2024-09-09 05:54] LABS: MANUAL DIFF FLAG NO
[2024-09-09 05:57] LABS: Hematocrit 23.6 % (42.0-52.0); Hemoglobin 8.3 g/dl (14.0-18.0); Imm Gran Abs Auto 0.01 X10*3/uL (0.00-0.03); Imm Gran Pct Auto 0.2 % (0.0-0.4); Lymphocytes Absolute Auto 2.0 X10*3/uL (1.2-4.9); Mean Corpuscular HGB Conc 35.2 g/dl (31.0-36.0); Mean Corpuscular Hemoglobin 28.4 pg (27.0-33.0); Mean Corpuscular Volume 80.8 fL (80.0-98.0); NRBC Abs Auto 0.000 X10*3/uL (0.0-0.012); NRBC Pct Auto 0.0 /100WBC (0.0-0.2); Platelet Count 195 X10*3/uL (160-400); Red Blood Count 2.92 X10*6/uL (4.60-5.80); White Blood Count 5.5 X10*3/uL (4.8-10.8)
[2024-09-09 05:59] LABS: Glucose, Whole Blood 235 mg/dL (60-115)
[2024-09-09 06:10] LABS: Anion Gap 10 (12-20); Blood Urea Nitrogen 17 mg/dL (9-16); Calcium 8.2 mg/dL (8.4-10.2); Carbon Dioxide 26 mmol/L (22-29); Chloride 105 mmol/L (96-108); Creatinine Clr Calc Pharmacy 72.6; Estimated Glomerular Filt Rate > 60; Potassium 4.0 mmol/L (3.3-5.1); Sodium 137 mmol/L (135-145)
[2024-09-09 07:24] VITALS: BP 109/54; PULSE 63; RESP 16; TEMP 36.1; O2SAT 99
[2024-09-09 07:39] LABS: Glucose, Whole Blood 169 mg/dL (60-115)
--- NOTE | 2024-09-09 10:59 | PM.DS ---
DS: Providers Provider Date of Service: 09/09/24 Date of admission: 09/06/24 13:03 Date of discharge: 09/09/24 Primary care physician: Yoel Parrish MD Consults: 09/06/24 13:02 Consult to Gastroenterology Routine Consulting Provider: Nallely Butts Reason for consultation: gi bleed Attending physician on discharge: Zackery Zelaya Discharging clinician: Mirian Blank DS: Diagnosis Discharge Diagnosis (1) Anemia: Status: Acute DS: Summary Hospital Course Hospital Course: From H&P on the day of admission 59-year-old male with a history of schizophrenia, auditory hallucinations, PTSD, cocaine use disorder, ?stomach ulcer?, GERD who presents emergency department for evaluation of lower back pain x1 month, abdominal pain, nausea, vomiting x2 days. Patient states that he is a squeezing sensation in his lower back x1 month. This has constant but does not radiate down his legs. He denied numbness or weakness of his lower extremities. Patient denied taking any medications for this pain but he does take aspirin 81 mg daily. Patient states for the last 2 days he has had increased ?burning? heartburn like symptoms which is constant, 8/10 at its worse, located in his epigastric area of his abdomen. He states that he has had 2 episodes where he has vomited red jelly-like material which he thought was blood. He denied lightheadedness, dizziness or weakness. He denied fever or chills. He has not noticed any dark black or tarry stools. Acute blood loss anemia likely secondary to upper GI bleed Seen by GI and had EGD 09/07 - showing esophagitis with [place] II ulcer ulcer status post endo clip, gastritis, duodenitis. Treated with IV Protonix b.i.d x 72 hours. Tolerated diet advancement with no further vomiting or bleeding, denies abdominal pain. Initial drop in H/H from 7/7 to 7/8 but did not require blood transfusion, H/H has remained stable over the past 2 days. Plan to transition to p.o. PPI b.i.d. x8 weeks, then once daily after that; avoid NSAIDs. on asa at baseline ok to resume per GI. Time Attestation Discharge Coordination Time (in mins): 32 Quality: Safe Use of Opioids Does Pt have an Active Cancer Diagnosis on the Problem List?: No Quality: Stroke Does the patient have a stroke diagnosis?: No Physical Exam Vital Signs: Vital Signs: Last Vital Signs Temp 96.9 F 09/09/24 07:24 Pulse 63 09/09/24 07:24 Resp 16 09/09/24 07:24 BP 109/54 L 09/09/24 07:24 Pulse Ox 99 09/09/24 07:24 O2 Del Method Room Air 09/09/24 07:24 O2 Flow Rate 8 09/07/24 14:45 BMI result Body Mass Index 27.3 Const: General: cooperative, comfortable, no acute distress, alert and awake Nutritional Appearance: well nourished Orientation/consciousness: patient oriented x3 HEENT: Head: Yes normocephalic and Yes atraumatic Resp: Effort & Inspection: normal respiratory effort and no respiratory distress Auscultation: clear to auscultation bilaterally Cardio: Rate: regular rate Rhythm: regular rhythm GI: Palpation (GI): Soft to palpation and nontender Neuro: General: patient oriented x3 DS: Data Data Completed and Pending Pending studies at discharge: Pending at discharge 09/07/24 14:27 Surgical [PTH] Routine Labs on day of discharge: Laboratory Results - last 24 hr 09/08/24 09/08/24 09/08/24 11:18 16:32 19:31 WBC RBC Hgb Hct MCV MCH MCHC RDW Plt Count MPV Immature Gran % (Auto) Neut % (Auto) Lymph % (Auto) [place] % (Auto) Eos % (Auto) Baso % (Auto) Lymph # (Auto) [place] # (Auto) Eos # (Auto) Baso # (Auto) Abs Immat Gran (auto) Absolute Neuts (auto) Absolute Nucleated RBC Nucleated RBC % (auto) Sodium Potassium Chloride Carbon Dioxide Anion Gap BUN Creatinine Estim Creat Clear Calc Estimated GFR POC Glucose 196 H 104 155 H Random Glucose Calcium 09/09/24 09/09/24 09/09/24 05:46 05:56 07:33 WBC 5.5 RBC 2.92 L Hgb 8.3 L Hct 23.6 L MCV 80.8 MCH 28.4 MCHC 35.2 RDW 13.3 Plt Count 195 MPV 9.4 Immature Gran % (Auto) 0.2 Neut % (Auto) 50.3 Lymph % (Auto) 36.3 [place] % (Auto) 10.8 Eos % (Auto) 1.7 Baso % (Auto) 0.7 Lymph # (Auto) 2.0 [place] # (Auto) 0.6 Eos # (Auto) 0.1 Baso # (Auto) 0.0 Abs Immat Gran (auto) 0.01 Absolute Neuts (auto) 2.7 Absolute Nucleated RBC 0.000 Nucleated RBC % (auto) 0.0 Sodium 137 Potassium 4.0 Chloride 105 Carbon Dioxide 26 Anion Gap 10 L BUN 17 H Creatinine 1.08 Estim Creat Clear Calc 72.6 Estimated GFR > 60 POC Glucose 235 H 169 H Random Glucose 224 H Calcium 8.2 L Discharge Plan Discharge Anticipated Discharge Date/Time: 09/09/24 11:18 Patient Disposition: Home, Self-Care Discharge Diagnosis: anemia/upper GI bleed due to esophagitis/esophageal ulcer Referrals: Yoel Parrish MD [Primary Care Provider, Internal Medicine] - 1 Week Discharge Medications: New pantoprazole 40 mg tablet,delayed release (DR/EC) 40 mg PO BID 56 Days Qty: 112 0RF Continued hydroxyzine pamoate 50 mg capsule 50 mg PO BID 30 Days Qty: 60 0RF insulin lispro [Admelog U-100 Insulin lispro] 100 unit/mL Solution See Protocol subcut QIDACHS 30 Days Qty: 10 0RF Protocol: Insulin Correction Scale Less than or equal to 110 ---- Give (units): 0 111 to 150 Give (units): 0 151 to 200 Give (units): 2 201 to 250 Give (units): 4 251 to 300 Give (units): 6 301 to 350 Give (units): 8 Greater than 350 Give (units): 10 Call if Blood Glucose > : 350 Januvia 100 mg tablet 100 mg PO DAILY 30 Days Qty: 30 0RF metformin 1,000 mg tablet 1,000 mg PO BID melatonin 10 mg tablet 10 mg PO BEDTIME aspirin 81 mg tablet,delayed release (DR/EC) 81 mg PO DAILY paroxetine HCl 30 mg tablet 30 mg PO DAILY PRN (Reason: depressive disorder) quetiapine 50 mg tablet 50 mg PO BID PRN (Reason: AGITATION/RACING THOUGHTS) quetiapine 400 mg tablet 400 mg PO BEDTIME PRN (Reason: depressive disorder) insulin glargine [Lantus Solostar U-100 Insulin] 100 unit/mL (3 mL) insulin pen 15 unit subcut BEDTIME gabapentin 300 mg capsule 300 mg PO TID PRN (Reason: neuropathy) albuterol sulfate 90 mcg/actuation HFA aerosol inhaler 2 puff INHALATION QID PRN (Reason: wheezing) docusate sodium 100 mg Capsule 100 mg PO DAILY trazodone 50 mg tablet 50 mg PO BEDTIME PRN (Reason: Sleep) atorvastatin 40 mg tablet 40 mg PO DAILY Discontinued omeprazole 20 mg capsule,delayed release(DR/EC) 20 mg PO DAILY@0630 Discharge Orders: Discharge Order (Routine); Ordered 09/09/24 Ordered By: Mirian Blank Activity on Discharge: As tolerated Stand Alone Forms: Patient Portal Discharge page Print Language: Bengali Care Plan Goals: See below Health Concerns: Anemia/upper GI bleeding due to esophagitis with ulcer, gastritis, duodenitis Plan of Treatment: Take pantoprazole twice daily for 8 weeks then once daily thereafter GI we will be in touch with results of biopsies Call to schedule follow-up appointment GI May take a daily baby aspirin but otherwise avoid NSAIDs (motrin, ibuprofen, naprosyn etc) call to schedule follow up with PCP as needed Assessment: See discharge summary Patient Instructions: GERD (Gastroesophageal Reflux Disease) (GEN), Diet for Stomach Ulcers and Gastritis (GEN)
[2024-09-09 11:26] LABS: Glucose, Whole Blood 128 mg/dL (60-115)
--- NOTE | 2024-09-09 11:57 | MHC.CM.PN ---
PT CLEARED TO DC TODAY, HE SAYS HE WILL BE GOING TO STAY WITH HIS SISTER HE WILL NEED TRANSPORT ARRANGED VIA [facility]UT[facility]LE AND REQUESTS TO BE DROPPED OFF AT [address] [facility]
== END 2024-09-09 12:09 | disposition home or self-care (01) | DRG 381 ==
LOC: HO.ED 09-06 13:20 → HO.EDOVER 09-06 14:11 → HO.S3 09-06 17:13
PROVIDERS: Internal Medicine; Student in an Organized Health Care Education/Training Program; Admitting Provider Nurse Practitioner Acute Care; Emergency Provider Emergency Medicine Emergency Medical Services; PCP Internal Medicine; Visit Provider Physician Assistant Medical
PROC: 0DJ08ZZ Inspection of Upper Intestinal Tract, Via Natural or Artificial Opening Endoscopic (ICD-10-PCS; CPT 43235; principal; 2024-09-07 14:00)
DX: K22.11 Ulcer of esophagus with bleeding (principal); D62 Acute posthemorrhagic anemia; F17.210 Nicotine dependence, cigarettes, uncomplicated; K29.71 Gastritis, unspecified, with bleeding; F20.9 Schizophrenia, unspecified; E11.9 Type 2 diabetes mellitus without complications; F14.10 Cocaine abuse, uncomplicated; K29.81 Duodenitis with bleeding; Z71.6 Tobacco abuse counseling; Z79.4 Long term (current) use of insulin; Z79.82 Long term (current) use of aspirin; Z79.84 Long term (current) use of oral hypoglycemic drugs; Z79.899 Other long term (current) drug therapy
CPT/HCPCS: 36415; 80048; 80053; 80307; 81001; 82947; 83690; 85014; 85018; 85025; 85027; 86850; 86900; 86901; 88305; 88313; 88342; 99285; J1171; J2405; J2470; J2704

== ENCOUNTER → 2024-09-06 13:03 | Outpatient (BNV) | payer OTHER, SELFPAY | PROVIDERS: Admitting Provider Nurse Practitioner Acute Care; Emergency Provider Emergency Medicine Emergency Medical Services; Visit Provider Nurse Practitioner Acute Care | DX: D64.9 Anemia, unspecified (principal) | CPT/HCPCS: 99223; 99232 ==

== ENCOUNTER → 2024-09-06 13:03 | Outpatient (BNV) | payer OTHER, SELFPAY | PROVIDERS: Admitting Provider Nurse Practitioner Acute Care; Emergency Provider Emergency Medicine Emergency Medical Services; Visit Provider Internal Medicine | DX: K22.11 Ulcer of esophagus with bleeding (principal); K29.90 Gastroduodenitis, unspecified, without bleeding | CPT/HCPCS: 43239; 43255; 99222 ==

== ENCOUNTER 2024-09-13 19:30 | Emergency (ER) | payer OTHER, SELFPAY ==
--- NOTE | ~2024-09-13 | XR_ITS ---
CLINICAL HISTORY: upright to eval for free air 1 view chest x-ray Comparison: CR - XR CHEST 2V - 07/30/24 01:46 EDT Findings: Heart size is normal. No consolidation, significant pleural effusion or pneumothorax. No free air under the diaphragm. No acute fracture. IMPRESSION: 1. No acute findings in the chest. 2. No free air under the diaphragm. This document has been electronically signed by: Shakira Rios MD on 09/13/2024 23:28:25
[2024-09-13 19:40] VITALS: BP 144/69; PULSE 94; RESP 15; TEMP 36.8; O2SAT 99; BMI 25.4
--- NOTE | 2024-09-13 19:41 | ED.ABDPAIN ---
HPI - Abdominal Pain General Chief Complaint: Abdominal Pain Stated Complaint: biopsy spots painful Time Seen by Provider: 09/13/24 22:36 Source: patient Mode of arrival: ambulatory Limitations: no limitations History of Present Illness ED Provider: Dr. Luz Parker HPI narrative: 59 year old male with history of schizophrenia, housing insecurity, polysubstance use presenting with epigastric pain after having an EGD done 4 days ago. Reportedly had biopsies performed. Has been taking all of his d/c meds as prescribed by the GI specialist. Pain is achy in nature. No further hematemesis but describes dark stools. Denies fever, chest pain, difficulty breathing, urinary complaints or diarrhea/melena. Related Data Home Medications ?Medication ?Instructions ?Recorded ?Confirmed melatonin 10 mg tablet 10 mg PO BEDTIME 06/28/24 09/06/24 metformin 1,000 mg tablet 1,000 mg PO BID 06/28/24 09/06/24 albuterol sulfate 90 mcg/actuation 2 puff inhalation QID PRN wheezing 09/06/24 09/06/24 aerosol inhaler aspirin 81 mg tablet,delayed 81 mg PO DAILY 09/06/24 09/06/24 release atorvastatin 40 mg tablet 40 mg PO DAILY 09/06/24 09/06/24 docusate sodium 100 mg capsule 100 mg PO DAILY 09/06/24 09/06/24 gabapentin 300 mg capsule 300 mg PO TID PRN neuropathy 09/06/24 09/06/24 insulin glargine 100 unit/mL (3 15 unit subcut BEDTIME 09/06/24 09/06/24 mL) subcutaneous pen (Lantus Solostar U-100 Insulin) paroxetine HCl 30 mg tablet 30 mg PO DAILY PRN depressive 09/06/24 09/06/24 disorder quetiapine 400 mg tablet 400 mg PO BEDTIME PRN depressive 09/06/24 09/06/24 disorder quetiapine 50 mg tablet 50 mg PO BID PRN AGITATION/RACING 09/06/24 09/06/24 THOUGHTS trazodone 50 mg tablet 50 mg PO BEDTIME PRN Sleep 09/06/24 09/06/24 Previous Rx's ?Medication ?Instructions ?Recorded hydroxyzine pamoate 50 mg capsule 50 mg PO BID 30 days #60 caps 04/20/24 insulin lispro 100 unit/mL See Protocol subcut QIDACHS 30 06/15/24 subcutaneous solution (Admelog days #10 mL U-100 Insulin lispro) sitagliptin phosphate 100 mg 100 mg PO DAILY 30 days #30 tabs 06/15/24 tablet (Januvia) pantoprazole 40 mg tablet,delayed 40 mg PO BID 8 weeks #112 tabs 09/09/24 release dicyclomine 20 mg tablet 20 mg PO TID #10 tabs 09/14/24 Allergies Allergy/AdvReac Type Severity Reaction Status Date / Time glipizide (GLIPIZIDE) Allergy Intermediate ITCHY Verified 09/13/24 19:43 Review of Systems Review of Systems as per HPI, full review of systems performed and negative but for the above mentioned pertinent positives and negatives. [facility] Past Medical History Attestation statement: The following information was validated with the patient. [facility] Narrative: peptic ulcer disease, schizophrenia, housing insecurity, polysubstance use Source: old records reviewed and nursing notes reviewed Medical History Asthma Depression MDD (major depressive disorder), recurrent episode, moderate Cocaine use disorder Substance-induced psychotic disorder Anxiety Diabetes Surgical History History of facial surgery H/O knee surgery Social History Social History Household Members: None Housing: Homeless Do you presently have visiting nurse or other home services: No Unable to assess alcohol history related to: Refusing to respond Alcohol intake: current Alcohol intake frequency: a few times a month Alcohol type: beer Patient Tobacco Use Status: Current everyday Tobacco user Tobacco use type: Cigarette Cigarette Packs Per Day: 1 Cigarettes Per Day: 20.0 Years Smoked: 35 e-Cigarette/Vaping Use: Former Use Second Hand Smoke Exposure: No Substance Use Type: Crack/Cocaine Advance Directives Date on File: 10/23/21 service: No Sexual orientation: Straight/Heterosexual Physical Exam ED Vital Signs: Vital Signs - 24 hr 09/13/24 19:40 09/13/24 20:10 09/14/24 00:58 Temperature 98.3 F Pulse Rate 94 Respiratory Rate 15 16 16 Blood Pressure 144/69 H Pulse Oximetry 99 Oxygen Delivery Method Room Air 09/14/24 02:21 Temperature 97.7 F Pulse Rate 90 Respiratory Rate 16 Blood Pressure 103/48 L Pulse Oximetry 95 Oxygen Delivery Method Room Air BMI result Body Mass Index 25.4 GENERAL: Unkempt, no acute distress. SKIN: Normal skin color for ethnicity, warm, dry, no rashes noted. HEENT:? Normocephalic, atraumatic, no stridor, posterior oropharynx nonerythematous, dentition intact, EOMI. NECK: Soft, supple, full ROM, midline structures nontender, no step-offs, no deformities, no lymphadenopathy. CHEST: Heart regular rate and rhythm, no murmurs, symmetric chest rise and fall. PULMONARY: Clear to auscultation bilaterally, no labored breathing, no wheezes/rhales/rhonchi. ABDOMINAL: Soft, nondistended, nontender, quiet bowel sounds in all quadrants. : Deferred. MUSCULOSKELETAL: Normal tone, full range of motion, no deformities, no peripheral edema. NEURO: Alert and oriented x3, CN II through XII intact, equal strength and sensation bilateral upper and lower extremities, no focal neurologic deficits.? PSYCHIATRIC: Flat affect, poor eye contact, withdrawn Course Course Course Narrative: This is a Rapid Medical Examination (RME) performed by Rick Perla PA-C in triage. Full HPI, ROS, assessment and treatment plan per primary provider in the Main ED. Hx: 59 yo M hx of MDD, PTSD, polysubstance abuse, schizophrenia, he is s/p EGD w/ biopsy on 09/07/24 - reports diffuse abdominal pain with nausea. no vomiting. normal BMs. last BM today. PE/vitals: Abdomen mildly distended, diffusely tender to palpation with guarding, no rebound. Plan: labs, will defer imaging to primary provider Medical Decision Making Medical Decision Making MDM Narrative: This patient presents today with a chief complaint of abdominal pain. Differential diagnosis for this patient is broad.? It includes appendicitis, cholecystitis, bowel obstruction, diverticulitis, peptic ulcer disease, pyelonephritis, vascular pathology, among many others.? A broad-based workup based on history and physical examination was obtained. ? Patient was given valium, maalox and bentyl for pain control. ?He was discharged with cyclobenzaprine for muscle spasm by the GI specialist. Patient is resting comfortably. XR does not show evidence of free air to suggest perforation afte rEGD biopsy. He is tolerating PO intake without issue here in the ED. Stable for d/c and GI follow up next week. Differential Diagnosis Differential Diagnoses: The differential diagnosis associated with the presentation includes (as above) Admission/Observation Consideration of admission/observation: Escalation of care including admission/observation considered Lab Data MDM Lab Attestation statement: I reviewed the patient's lab results. 09/13/24 19:50 09/13/24 19:50 Labs: Lab Results 09/13/24 Range/Units 19:50 WBC 6.3 (4.8-10.8) X10*3/uL RBC 3.31 L (4.60-5.80) X10*6/uL Hgb 9.4 L (14.0-18.0) g/dl Hct 27.4 L (42.0-52.0) % MCV 82.8 (80.0-98.0) fL MCH 28.4 (27.0-33.0) pg MCHC 34.3 (31.0-36.0) g/dl RDW 14.4 (11.0-16.0) % Plt Count 330 D (160-400) X10*3/uL MPV 9.5 (9.4-12.4) fL Immature Gran % (Auto) 0.3 (0.0-0.4) % Neut % (Auto) 66.1 (45-73) % Lymph % (Auto) 22.7 (20-40) % [place] % (Auto) 9.9 (2-11) % Eos % (Auto) 0.5 (0-4) % Baso % (Auto) 0.5 (0-2) % Lymph # (Auto) 1.4 (1.2-4.9) X10*3/uL [place] # (Auto) 0.6 (0.1-1.2) X10*3/uL Eos # (Auto) 0.0 (0.0-0.4) X10*3/uL Baso # (Auto) 0.0 (0.0-0.2) X10*3/uL Abs Immat Gran (auto) 0.02 (0.00-0.03) X10*3/uL Absolute Neuts (auto) 4.2 (2.0-8.3) x10*3/uL Absolute Nucleated RBC 0.000 (0.0-0.012) X10*3/uL Nucleated RBC % (auto) 0.0 (0.0-0.2) /100WBC Sodium 141 (135-145) mmol/L Potassium 4.0 (3.3-5.1) mmol/L Chloride 106 (96-108) mmol/L Carbon Dioxide 25 (22-29) mmol/L Anion Gap 14 (12-20) BUN 15 (9-16) mg/dL Creatinine 1.15 (0.5-1.4) mg/dL Estim Creat Clear Calc 65.4 Estimated GFR > 60 Random Glucose 217 H (60-115) mg/dL Calcium 9.1 D (8.4-10.2) mg/dL Magnesium 2.0 (1.6-2.6) mg/dL Total Bilirubin 0.5 (0.0-1.0) mg/dL AST 33 (5-37) U/L ALT 24 (0-40) U/L Alkaline Phosphatase 77 (39-117) U/L Total Protein 7.5 (6.5-8.0) g/dL Albumin 4.4 (3.5-5.0) g/dL Lipase 17 (8-78) U/L Independent Interpretation I performed an independent interpretation of an: Plain X-Ray Interpretation: No free air on CXR. No pneumomediastinum. Radiology Impression Discussion of test interpretation with radiology: I have reviewed the radiologist's reading. External Record Review External record reviewed: Inpatient record, Outpatient record and Prior outpatient radiology Prescription Management I considered prescription management with: Pain Medication Chronic Conditions Patient?s care impacted by: Other (schizophrenia) Social Determinants Patient?s care significantly limited by Social Determinants of Health including: Inadequate housing and Unemployment Medications Administered Discontinued Medications Generic Name Dose Route Start Last Admin Trade Name Freq PRN Reason Stop Dose Admin Acetaminophen 975 mg 09/13/24 23:35 09/13/24 23:48 Acetaminophen 325 Mg Tablet PO 09/13/24 23:36 975 mg ONCE ONE Administration Al Hydroxide/Mg Hydroxide 15 ml 09/13/24 23:35 09/13/24 23:48 Magnesium Hydrox/Alum Hydrox 30 Ml Oral.Susp PO 09/13/24 23:36 15 ml ONCE ONE Administration Diazepam 2 mg 09/13/24 23:35 09/13/24 23:47 Diazepam 2 Mg Tablet PO 09/13/24 23:36 2 mg ONCE ONE Administration Dicyclomine HCl 20 mg 09/13/24 23:35 09/13/24 23:47 Dicyclomine Hcl 10 Mg Capsule PO 09/13/24 23:36 20 mg ONCE ONE Administration Discharge Plan Discharge Clinical Impression: Acute generalized abdominal pain, PUD (peptic ulcer disease) Patient Disposition: Home, Self-Care Instructions: Peptic Ulcer (ED) Additional Instructions: Keep your appointment with your steamfitter. Return to the emergency department with any new or worsening symptoms including: Worsening abdominal pain despite medications, inability to tolerate food or drink, fevers greater than 100?, any new symptom that concerns you. Call 911 with any medical emergency. Prescriptions: New dicyclomine 20 mg tablet 20 mg PO TID Qty: 10 0RF No Action hydroxyzine pamoate 50 mg capsule 50 mg PO BID 30 Days Qty: 60 0RF insulin lispro [Admelog U-100 Insulin lispro] 100 unit/mL Solution See Protocol subcut QIDACHS 30 Days Qty: 10 0RF Protocol: Insulin Correction Scale Less than or equal to 110 ---- Give (units): 0 111 to 150 Give (units): 0 151 to 200 Give (units): 2 201 to 250 Give (units): 4 251 to 300 Give (units): 6 301 to 350 Give (units): 8 Greater than 350 Give (units): 10 Call MD if Blood Glucose > : 350 Januvia 100 mg tablet 100 mg PO DAILY 30 Days Qty: 30 0RF metformin 1,000 mg tablet 1,000 mg PO BID melatonin 10 mg tablet 10 mg PO BEDTIME aspirin 81 mg tablet,delayed release (DR/EC) 81 mg PO DAILY paroxetine HCl 30 mg tablet 30 mg PO DAILY PRN (Reason: depressive disorder) quetiapine 50 mg tablet 50 mg PO BID PRN (Reason: AGITATION/RACING THOUGHTS) quetiapine 400 mg tablet 400 mg PO BEDTIME PRN (Reason: depressive disorder) insulin glargine [Lantus Solostar U-100 Insulin] 100 unit/mL (3 mL) insulin pen 15 unit subcut BEDTIME gabapentin 300 mg capsule 300 mg PO TID PRN (Reason: neuropathy) albuterol sulfate 90 mcg/actuation HFA aerosol inhaler 2 puff INHALATION QID PRN (Reason: wheezing) docusate sodium 100 mg Capsule 100 mg PO DAILY trazodone 50 mg tablet 50 mg PO BEDTIME PRN (Reason: Sleep) atorvastatin 40 mg tablet 40 mg PO DAILY pantoprazole 40 mg tablet,delayed release (DR/EC) 40 mg PO BID 56 Days Qty: 112 0RF Interventions: ED Discharge Assessment Last Done: 09/14/24 06:40 Discharge Date/Time: 09/14/24 06:05 Print Language: Khmer
[2024-09-13 19:53] LABS: MANUAL DIFF FLAG NO
[2024-09-13 19:54] LABS: Hematocrit 27.4 % (42.0-52.0); Hemoglobin 9.4 g/dl (14.0-18.0); Imm Gran Abs Auto 0.02 X10*3/uL (0.00-0.03); Imm Gran Pct Auto 0.3 % (0.0-0.4); Lymphocytes Absolute Auto 1.4 X10*3/uL (1.2-4.9); Mean Corpuscular HGB Conc 34.3 g/dl (31.0-36.0); Mean Corpuscular Hemoglobin 28.4 pg (27.0-33.0); Mean Corpuscular Volume 82.8 fL (80.0-98.0); NRBC Abs Auto 0.000 X10*3/uL (0.0-0.012); NRBC Pct Auto 0.0 /100WBC (0.0-0.2); Platelet Count 330 X10*3/uL (160-400); Red Blood Count 3.31 X10*6/uL (4.60-5.80); White Blood Count 6.3 X10*3/uL (4.8-10.8)
[2024-09-13 20:07] LABS: Alanine Aminotransferase 24 U/L (0-40); Albumin Level 4.4 g/dL (3.5-5.0); Alkaline Phosphatase 77 U/L (39-117); Anion Gap 14 (12-20); Aspartate Amino Transferase 33 U/L (5-37); Blood Urea Nitrogen 15 mg/dL (9-16); Calcium 9.1 mg/dL (8.4-10.2); Carbon Dioxide 25 mmol/L (22-29); Chloride 106 mmol/L (96-108); Creatinine Clr Calc Pharmacy 65.4; Estimated Glomerular Filt Rate > 60; Lipase 17 U/L (8-78); Magnesium 2.0 mg/dL (1.6-2.6); Potassium 4.0 mmol/L (3.3-5.1); Sodium 141 mmol/L (135-145); Total Protein 7.5 g/dL (6.5-8.0)
[2024-09-13 20:10] VITALS: RESP 16
--- NOTE | 2024-09-13 23:47 | PC.NURSE ---
Patient medicated per order for abdominal pain and anxiety
[2024-09-13] MEDS: Magnesium Hydrox/Alum Hydrox 30 ML ORAL.SUSP 15 ML PO (23:48)
[2024-09-14 00:58] VITALS: RESP 16
--- NOTE | 2024-09-14 01:48 | PC.NURSE ---
patient sleeping. skin pwd, resp even and non labored, appears comfortable at this time
[2024-09-14 02:21] VITALS: BP 103/48; PULSE 90; RESP 16; TEMP 36.5; O2SAT 95
--- NOTE | 2024-09-14 05:03 | PC.NURSE ---
pt resting comfortably in stretcher at this time. The pt is well appearing and easily arousable to verbal stimuli. he offers no complaints at this time. pt to be discharged home within the hour
[2024-09-14 06:16] VITALS: BP 110/58; PULSE 88; RESP 16; TEMP 36.6; O2SAT 99
[2024-09-14 06:40] VITALS: BP 110/58; PULSE 88; RESP 16; TEMP 36.6; O2SAT 99
== END 2024-09-14 06:05 | disposition home or self-care (01) ==
PROVIDERS: Physician Assistant Medical; Emergency Provider Emergency Medicine; PCP Internal Medicine
DX: K27.9 Peptic ulcer, site unspecified, unspecified as acute or chronic, without hemorrhage or perforation (principal); R10.13 Epigastric pain; E11.9 Type 2 diabetes mellitus without complications; Z59.9 Problem related to housing and economic circumstances, unspecified; Z79.899 Other long term (current) drug therapy
CPT/HCPCS: 36415; 71045; 80053; 83690; 83735; 85025; 99283; 99284

== ENCOUNTER → 2024-09-13 22:36 | Outpatient (BNV) | payer OTHER, SELFPAY | PROVIDERS: Emergency Provider Emergency Medicine; PCP Internal Medicine; Visit Provider Specialist | DX: R06.02 Shortness of breath (principal) | CPT/HCPCS: 71045 ==

== ENCOUNTER 2024-10-24 17:32 | Emergency (ER) | payer OTHER, SELFPAY ==
--- NOTE | ~2024-10-24 | XR_ITS ---
CLINICAL HISTORY: pain 1 view abdomen Comparison: CT of the abdomen from 07/30/2024 Findings: Mild bibasilar atelectasis. No small bowel dilatation. Severe stool burden present, including in the cecum. Sclerosis of the proximal right femur is non aggressive appearing and likely due to small bone island. IMPRESSION: 1. No small bowel obstruction. 2. Severe stool burden. This document has been electronically signed by: Gautam Robles MD on 10/24/2024 20:42:34
--- OUTSIDE RECORDS SUMMARY | 2024-10-24 08:21 | XMS_ITS | Encounter Summary ---
Author Organization [facility] Address [address] [place] [address] Care Team Providers Care Pillow Cleaner Name Role Phone Yoel Parrish MD Primary Care Provider [phone] Reason for Visit * Reason Comments Exposure to STD Abdominal Pain I have been nauseas and vomiting for 15 years some girl I was with gave me and STD Encounter Details Date Type Department Care Team (Late st Contact Info) Description 10/24/2024 8:21 AM EDT - 10/24/2024 8:35 AM EDT Emergency [facility] Emergency [address] [place] [address] Freddy He MD [address] [id number] Constipation, unspecified constipation type (Primary Dx); Nose colonized with MRSA Discharge Disposition: Home or Self Care Social History Tobacco Use Types Packs/Day Years Used Date Smoking Tobacco: Every Day Cigarettes Smokeless Tobacco: Never Alcohol Use Standard Drinks/Week Comments Yes 0 (1 standard drink = 0.6 oz pur e alcohol) Housing Instability Answer Date Recorde d Are you worried that in the next 2 months you may not have stable housing? Yes 04/11/2024 Food Access & Nutrition Answer Date Rec orded Do you have access to a vari ety of food including fruits and vegetables? No 04/11/2024 Access to Healthcare Answer Date Record ed Within the last 3 months, ho w many times did you visit the emergency department for your medical care? 5 04/11/2024 Health Literacy Answer Date Recorded How often do you need to hav e someone help you when you read instructions, pamphlets, or other written material from your doctor or pharmacy? Sometimes 04/11/2024 Caregiver: How often do you need to have someone help you when you read instructions, pamphlets, or other written material from your doctor or pharmacy? Not on file 04/11/2024 Financial Risk Answer Date Recorded How hard is it for you to pa y for the very basics like food, housing, medical care, and air conditioning / heating? Very hard 04/11/2024 Transportation Answer Date Recorded Has the lack of transportati on kept you from meetings, work, or from getting things needed for daily living? No Has the lack of transportati on kept you from medical appointments or from getting medications? No 04/11/2024 Social Isolation Answer Date Recorded How often do you feel lonely or isolated from those around you? Sometimes 04/11/2024 Food Risk Answer Date Recorded Within the past 12 months we worried whether our food would run out before we got money to buy more. Often true 04/11/2024 Within the past 12 months th e food we bought just didn't last and we didn't have money to get more. Often true 04/11/2024 Dependent Care Answer Date Recorded Do you need help finding or paying for care for your loved ones. For example, childcare teacher or elderly care for an older adult? No 04/11/2024 Education Answer Date Recorded Do you think completing more education or training, like finishing a GED, going to college, or learning a trade, would be helpful for you? No 04/11/2024 Employment and Income Answer Date Recor ded During the last four weeks, have you been actively looking for work? No 04/11/2024 Living Situation Answer Date Recorded What is your living situation? 0 04/11/2024 Sex and Gender Information Value Date Recorded Sex Assigned at Male 01/27/2024 11:35 PM EST Legal Sex Male 10:26 AM EST Gender Identity Male 01/27/2024 11:35 PM EST Sexual Orientation Straight 01/27/2024 11 :35 PM EST documented as of this encounter Last Filed Vital Signs Vital Sign Reading Time Taken Comments Blood Pressure 138/72 10/24/2024 7:32 AM EDT Pulse 84 10/24/2024 7:32 AM EDT Temperature 36.7 C (98.1 F) 10/24/2024 7:32 AM EDT Respiratory Rate 16 10/24/2024 7:32 AM EDT Oxygen Saturation 100% 10/24/2024 7:32 AM EDT Inhaled Oxygen Concentration - - Weight 72.6 kg (160 lb) 10/24/2024 7:32 AM EDT Height 167.6 cm (5' 6 ) 10/24/2024 7:32 AM EDT Body Mass Index 25.82 10/24/2024 7:32 AM EDT documented in this encounter Functional Status * Are you deaf or do you have serious difficulty hearing? Answer Date of Assessment Author No 09/15/2024 5:32 AM EDT Marcela Dimas RN * Are you blind or do you have serious difficulty seeing, even when wearing glasses? Answer Date of Assessment Author No 09/15/2024 5:32 AM EDT Marcela Dimas RN * Do you have serious difficulty walking or climbing stairs? Answer Date of Assessment Author No 09/15/2024 5:32 AM EDT Marcela Dimas RN * Do you have serious difficulty dressing or bathing? Answer Date of Assessment Author No 09/15/2024 5:32 AM EDT Marcela Dimas RN * Because of a physical, mental, or emotional condition, do you have serious difficulty doing errandsalone such as visiting the doctor? Answer Date of Assessment Author No 09/15/2024 5:32 AM EDT Marcela Dimas RN documented as of this encounter Mental Status * Because of a physical, mental, or emotional condition, do you have serious difficulty concentrating, remembering, or making decisions? (5 years old or older) Answer Entry Date Author No 09/15/2024 5:32 AM EDT Marcela Dimas RN documented in this encounter Discharge Instructions * Discharge Instructions* Freddy He MD - 10/24/2024 8:23 AM EDT Start taking Benefiber daily and increase your water intake and exercise. This will help keep you regular. Also take MiraLAX daily. If you find you are constipated despite this then use the glycerin suppositories. If the MiraLAX, fiber and glycerin suppositories are not effective try the Dulcolax. If you still are having difficulty you can then use the glycerin suppositories. If that is not effective then use magnesium citrate and also try enemas which you can purchase [id number] at any pharmacy. Also start using the mupirocin ointment once again for your nose. Follow-up with your doctor and return for new symptoms, worsening symptoms or concerns. * Attachments The following attachments cannot be sent through Care Everywhere. * Constipation (Japanese) documented in this encounter Medications at Time of Discharge albuterol HFA (PROAIR HFA ; PROVENTIL HFA ; VENTOLIN HFA) 90 mcg/actuation inhaler Inhale 2 puffs by mouth every 6 (six) hours if needed. 06/15/2024 aspirin 81 mg EC tablet Take 1 tablet (81 mg total) by mouth 1 (one) time each day. atorvastatin (LIPITOR) 20 mg tablet Take 2 tablets (40 mg total) by mouth daily. 03/21/2024 cyclobenzaprine (FLEXERIL) 10 mg tablet Take 1 tablet (10 mg total) by mouth 2 (two) times a day if needed for muscle spasms for up to 10 days. 20 tablet 08/18/2024 cyclobenzaprine (FLEXERIL) 10 mg tablet Take 1 tablet (10 mg total) by mouth 3 (three) times a day if needed for muscle spasms for up to 10 days. 15 tablet 09/02/2024 docusate sodium (COLACE) 100 mg capsule Take 1 capsule (100 mg total) by mouth every 12 (twelve) hours. 60 capsule 10/24/2024 11/23/2024 gabapentin (NEURONTIN) 300 mg capsule Take 1 capsule (300 mg total) by mouth 2 (two) times a day. 10/27/2023 hydrOXYzine pamoate (VISTARIL) 50 mg capsule Take 1 capsule (50 mg total) by mouth 4 (four) times a day if needed for itching. INSULIN LISPRO SUBQIndications:d iabetes mellitus Inject 1 Units under the skin 3 (three) times a day before meals. 70-149= 0 units 150-199= 2 units 200-249= 4 units 250-299= 6units 300-349= 8 units 350-399= 10 units Greater than 400 notify Lactobacillus acidophilus 100 mg (1 billion cell) capsule Take 1 capsule by mouth 2 (two) times a day. 60 each 10/24/2024 11/23/2024 magnesium citrate solution Take 296 mL by mouth 1 (one) time for 1 dose. 1 each 10/24/2024 10/24/2024 melatonin 10 mg tablet Take 1 tablet (10 mg total) by mouth at bedtime as needed for sleep. at bedtime 06/10/2024 metFORMIN (FORTAMET) 1,000 mg 24 hr tablet Take 1 tablet (1,000 mg total) by mouth 1 (one) time each day with dinner. Do not crush, chew, or split. mirtazapine (REMERON) 15 mg tablet Take 1 tablet (15 mg total) by mouth at bedtime. 09/27/2024 mupirocin (BACTROBAN) 2 % ointment Apply in each nostril daily 30 g 10/24/2024 10/31/2024 nicotine polacrilex (NICORETTE) [address] 1 each (2 mg total) into mouth between cheek and gum every 2 (two) hours if needed. 04/04/2024 pantoprazole (PROTONIX) 40 mg EC tablet Take 1 tablet (40 mg total) by mouth 1 (one) time each day before breakfast. 09/09/2024 PARoxetine (PAXIL) 30 mg tablet Take 1 tablet (30 mg total) by mouth 1 (one) time each day in the morning. 07/27/2024 polyethylene glycol (PEG) 17 gram/dose oral powder Take 17 g by mouth 1 (one) time each day for 3 days. 51 g 10/24/2024 10/27/2024 QUEtiapine (SEROquel) 400 mg tablet Take 1 tablet (400 mg total) by mouth at bedtime. 07/27/2024 QUEtiapine 150 mg tablet Take 150 mg by mouth 1 (one) time each day. 07/27/2024 SITagliptin phosphate (JANUVIA) 100 mg tablet Take 1 tablet (100 mg total) by mouth 1 (one) time each day. traZODone (DESYREL) 50 mg tablet Take by mouth at bedtime as needed. 04/04/2024 documented as of this encounter Ordered Prescriptions Prescription Sig Dispense Quantity Refills Last Filled Start Date End Date mupirocin (BACTROBAN) 2 % ointment Apply in each nostril daily 30 g 10/24/2024 5 Lactobacillus acidophilus 100 mg (1 billion cell) capsule Take 1 capsule by mouth 2 (two) times a day. 60 each 10/24/2024 5 polyethylene glycol (PEG) 17 gram/dose oral powder Take 17 g by mouth 1 (one) time each day for 3 days. 51 g 10/24/2024 5 docusate sodium (COLACE) 100 mg capsule Take 1 capsule (100 mg total) by mouth every 12 (twelve) hours. 60 capsule 10/24/2024 5 magnesium citrate solution Take 296 mL by mouth 1 (one) time for 1 dose. 1 each 10/24/2024 5 documented in this encounter Discharge Disposition Disposition Code Departure Means Destination Comment s Home or Self Care Provider discharged. documented in this encounter Progress Notes * Amalia Lopez RN - 10/24/2024 7:34 AM EDT Patient reports abdominal pain x 15 years on and off after he performed oral sex on someone who had pus coming out of her vagina and the pain sometimes flares up . Patient also reports some nose irritation. Patient also reports nose irritation for five years and it is worse this week. documented in this encounter Plan of Treatment Not on file documented as of this encounter Visit Diagnoses Diagnosis Constipation, unspecified constipation type- Primary Nose colonized with MRSA documented in this encounter Care Teams Pillow Cleaner Relationship Specialty Start Date End Date Yoel Parrish MD [address] [place] [id number] PCP - General Internal Medicine 01/27/24 documented as of this encounter
[2024-10-24 17:36] VITALS: BP 171/80; PULSE 94; RESP 18; TEMP 36.7; O2SAT 97; BMI 27.6
--- NOTE | 2024-10-24 17:38 | ECG_ITS ---
Test Reason : ABD PAIN Blood Pressure : */* mmHG Vent. Rate : 84 BPM Atrial Rate : 84 BPM P-R Int : 140 ms QRS Dur : 86 ms QT Int : 376 ms P-R-T Axes : 58 50 14 degrees QTcB Int : 444 ms Normal sinus rhythm Normal ECG When compared with ECG of 30-Jul-2024 01:36, No significant change was found Referred By: Kandi Lyles Electronically Signed By: EARLINE GALLAGHER
--- NOTE | 2024-10-24 17:38 | ED.GENADULT ---
HPI - General Adult General Chief complaint: Abdominal Pain Stated complaint: abd pain Time Seen by Provider: 10/24/24 19:46 Source: patient Limitations: no limitations History of Present Illness ED Provider: Eleanor Gamboa PA-C HPI narrative: 59-year-old male with a history of schizophrenia, housing insecurity, polysubstance presents with the abdominal pain x2 days. Patient states discomfort is mid abdomen, nonradiating, unable to describe the nature of his symptoms. Associated nausea vomiting and poor oral intake. Denies diarrhea, fever. Denies constipation. Denies sick contacts with similar symptoms. Related Data Home Medications ?Medication ?Instructions ?Recorded ?Confirmed melatonin 10 mg tablet 10 mg PO BEDTIME 06/28/24 09/06/24 metformin 1,000 mg tablet 1,000 mg PO BID 06/28/24 09/06/24 albuterol sulfate 90 mcg/actuation 2 puff inhalation QID PRN wheezing 09/06/24 09/06/24 aerosol inhaler aspirin 81 mg tablet,delayed 81 mg PO DAILY 09/06/24 09/06/24 release atorvastatin 40 mg tablet 40 mg PO DAILY 09/06/24 09/06/24 docusate sodium 100 mg capsule 100 mg PO DAILY 09/06/24 09/06/24 gabapentin 300 mg capsule 300 mg PO TID PRN neuropathy 09/06/24 09/06/24 insulin glargine 100 unit/mL (3 15 unit subcut BEDTIME 09/06/24 09/06/24 mL) subcutaneous pen (Lantus Solostar U-100 Insulin) paroxetine HCl 30 mg tablet 30 mg PO DAILY PRN depressive 09/06/24 09/06/24 disorder quetiapine 400 mg tablet 400 mg PO BEDTIME PRN depressive 09/06/24 09/06/24 disorder quetiapine 50 mg tablet 50 mg PO BID PRN AGITATION/RACING 09/06/24 09/06/24 THOUGHTS trazodone 50 mg tablet 50 mg PO BEDTIME PRN Sleep 09/06/24 09/06/24 Previous Rx's ?Medication ?Instructions ?Recorded hydroxyzine pamoate 50 mg capsule 50 mg PO BID 30 days #60 caps 04/20/24 insulin lispro 100 unit/mL See Protocol subcut QIDACHS 30 06/15/24 subcutaneous solution (Admelog days #10 mL U-100 Insulin lispro) sitagliptin phosphate 100 mg 100 mg PO DAILY 30 days #30 tabs 06/15/24 tablet (Januvia) pantoprazole 40 mg tablet,delayed 40 mg PO BID 8 weeks #112 tabs 09/09/24 release dicyclomine 20 mg tablet 20 mg PO TID #10 tabs 09/14/24 docusate sodium 100 mg capsule 100 mg PO BID #10 caps 10/24/24 (Col-Rite) ondansetron 4 mg disintegrating 4 mg PO Q8H PRN nausea and 10/24/24 tablet vomiting #10 tabs polyethylene glycol 3350 17 See Rx Instructions .Route 10/24/24 gram/dose oral powder (Miralax) .COMPLEX #119 grams Allergies Allergy/AdvReac Type Severity Reaction Status Date / Time glipizide (GLIPIZIDE) Allergy Intermediate ITCHY Verified 10/24/24 17:41 Review of Systems Review of Systems: Yes all other systems are reviewed and are negative Constitutional: Constitutional: Denies fatigue and Denies fever(s) Cardiovascular: Cardiovascular: Denies chest pain and Denies dyspnea Respiratory: Respiratory: Denies dyspnea Gastrointestinal: Gastrointestinal: Reports abdominal pain, Denies constipation, Denies diarrhea, Reports nausea and Reports vomiting Endocrine: Endocrine: Denies fatigue PMFSH Past Medical History Attestation statement: The following information was validated with the patient. Medical History Asthma Depression MDD (major depressive disorder), recurrent episode, moderate Cocaine use disorder Substance-induced psychotic disorder Anxiety Diabetes Surgical History History of facial surgery H/O knee surgery Social History Social History Household Members: None Housing: Homeless Do you presently have visiting nurse or other home services: No Unable to assess alcohol history related to: Refusing to respond Alcohol intake: current Alcohol intake frequency: a few times a month Alcohol type: beer Patient Tobacco Use Status: Current everyday Tobacco user Tobacco use type: Cigarette Cigarette Packs Per Day: 1 Cigarettes Per Day: 20.0 Years Smoked: 35 e-Cigarette/Vaping Use: Former Use Second Hand Smoke Exposure: No Substance Use Type: Crack/Cocaine Advance Directives: Yes Advance Directives on File: Yes Advance Directives Date on File: 10/23/21 Do you have a plan to hurt others: No Plan service: No Sexual orientation: Straight/Heterosexual Physical Exam ED Vital Signs: Vital Signs - 24 hr 10/24/24 17:36 Temperature 98.1 F Pulse Rate 94 Respiratory Rate 18 Blood Pressure 171/80 H Pulse Oximetry 97 Oxygen Delivery Method Room Air BMI result Body Mass Index 27.6 Const Other: Alert, sleeping soundly easily woken with verbal stimuli Orientation/consciousness: patient oriented x3 Resp Effort & Inspection: normal respiratory effort Cardio Other: Normal peripheral perfusion GI Other: Soft nontender no guarding no distention Skin Other: Warm dry no rash Neuro General: patient oriented x3, gait normal, no focal motor deficits and CN's II-XI intact bilaterally Psych Other: Cooperative Course Course Course Narrative: Rapid medical examination performed in triage by Kandi Lyles PA-C. Patient is a 59 year old assigned male at presenting to the emergency department with abdominal pain. Patient states that he has not eaten over the last 2 days and has abdominal pain, nausea, and vomiting. Detailed physical exam and review of systems are deferred to the donor processor. EKG, labs ordered. Patient placed back in the waiting room pending room availability and results. Reevaluation(s) Reevaluation #1: P.o. challenge Reevaluation #2: Patient requesting more food, this is his 2nd sandwich and binh chance, eating and drinking normally, ready for discharge Time: 21:36 Medications Administered Discontinued Medications Generic Name Dose Route Start Last Admin Trade Name Freq PRN Reason Stop Dose Admin Ondansetron HCl 4 mg 10/24/24 20:12 10/24/24 20:52 Ondansetron Odt 4 Mg Tab.Rapdis TRANSLINGU 10/24/24 20:13 4 mg ONCE ONE Administration Medical Decision Making Medical Decision Making MDM Narrative: 59-year-old male with a history of schizophrenia, housing insecurity, polysubstance presents with the abdominal pain x2 days. Patient states discomfort is mid abdomen, nonradiating, unable to describe the nature of his symptoms. Associated nausea vomiting and poor oral intake. Denies diarrhea, fever. Denies constipation. Denies sick contacts with similar symptoms. Problem: Psychiatric illness, polysubstance abuse, housing and security History: Per patient I have considered the following differential diagnoses: Biliary colic, cholecystitis, gastritis, pancreatitis, viral gastritis, constipation Plan: Patient is here with vague abdominal pain, his screening labs are completely unremarkable. His abdominal exam was unremarkable. Obtaining a KUB. He does not warrant advanced imaging at this time. The patient is actively asking to eat, we will p.o. challenge now, I have low suspicion for any acute intra-abdominal pathology. I have independently reviewed the following tests: Labs: No leukocytosis, not anemic, no electrolyte abnormality noted, COVID negative KUB:Findings: Mild bibasilar atelectasis. No small bowel dilatation. Severe stool burden present, including in the cecum. Sclerosis of the proximal right femur is non aggressive appearing and likely due to small bone island. IMPRESSION: 1. No small bowel obstruction. 2. Severe stool burden. Differential Diagnosis Differential Diagnoses: The differential diagnosis associated with the presentation includes See medical decision may Admission/Observation Consideration of admission/observation: Escalation of care including admission/observation considered Not applicable Lab Data MDM Lab Attestation statement: I reviewed the patient's lab results. 10/24/24 18:22 10/24/24 18:22 Labs: Lab Results 10/24/24 10/24/24 10/24/24 Range/Units 17:44 18:22 20:37 WBC 6.6 (4.8-10.8) X10*3/uL RBC 4.78 D (4.60-5.80) X10*6/uL Hgb 13.2 L D (14.0-18.0) g/dl Hct 40.1 L D (42.0-52.0) % MCV 83.9 (80.0-98.0) fL MCH 27.6 (27.0-33.0) pg MCHC 32.9 (31.0-36.0) g/dl RDW 14.2 (11.0-16.0) % Plt Count 324 (160-400) X10*3/uL MPV 9.9 (9.4-12.4) fL Immature Gran % (Auto) 0.5 H (0.0-0.4) % Neut % (Auto) 69.0 (45-73) % Lymph % (Auto) 17.2 L (20-40) % [place] % (Auto) 12.5 H (2-11) % Eos % (Auto) 0.3 (0-4) % Baso % (Auto) 0.5 (0-2) % Lymph # (Auto) 1.1 L (1.2-4.9) X10*3/uL [place] # (Auto) 0.8 (0.1-1.2) X10*3/uL Eos # (Auto) 0.0 (0.0-0.4) X10*3/uL Baso # (Auto) 0.0 (0.0-0.2) X10*3/uL Abs Immat Gran (auto) 0.03 (0.00-0.03) X10*3/uL Absolute Neuts (auto) 4.6 (2.0-8.3) x10*3/uL Absolute Nucleated RBC 0.000 (0.0-0.012) X10*3/uL Nucleated RBC % (auto) 0.0 (0.0-0.2) /100WBC PT 11.8 (10.9-12.4) SEC INR 1.0 (0.9-1.1) Sodium 141 (135-145) mmol/L Potassium 4.1 (3.3-5.1) mmol/L Chloride 99 (96-108) mmol/L Carbon Dioxide 28 (22-29) mmol/L Anion Gap 18 (12-20) BUN 31 H (9-16) mg/dL Creatinine 1.24 (0.5-1.4) mg/dL Estim Creat Clear Calc 63.6 Estimated GFR 60 POC Glucose 151 H (60-115) mg/dL Random Glucose 142 H (60-115) mg/dL Calcium 9.8 D (8.4-10.2) mg/dL Magnesium 2.0 (1.6-2.6) mg/dL Total Bilirubin 0.6 (0.0-1.0) mg/dL AST 37 (5-37) U/L ALT 32 (0-40) U/L Alkaline Phosphatase 90 (39-117) U/L Troponin I High Sens 4.3 (<3.5-35.0) ng/L Total Protein 8.7 H (6.5-8.0) g/dL Albumin 5.0 (3.5-5.0) g/dL COVID-19 (BETY) Negative (Negative) COVID-19 Clin Com See Note Radiology Impression Discussion of test interpretation with radiology: I have reviewed the radiologist's reading. Chronic Conditions Patient?s care impacted by: Other Social Determinants Patient?s care significantly limited by Social Determinants of Health including: Inadequate housing Discharge Plan Discharge Clinical Impression: Abdominal pain, Constipation Patient Disposition: Home, Self-Care Instructions: Constipation (ED), Abdominal Pain (ED) Additional Instructions: All of your screening labs were normal, you were also screened for COVID that test was negative as well. The screening x-ray of the abdomen revealed that you are severe constipated. This is the cause of your nausea. It is very reassuring that you ate 2 sandwiches prior to your discharge. Take the stool softener as directed. Take the MiraLax several times a day until you begin having normal bowel movements. Uses Zofran as needed for nausea. Follow up with your primary care provider as needed. Prescriptions: New ondansetron 4 mg tablet,disintegrating 4 mg PO Q8H PRN (Reason: nausea and vomiting) Qty: 10 0RF docusate sodium [Col-Rite] 100 mg capsule 100 mg PO BID Qty: 10 0RF polyethylene glycol 3350 [Miralax] 17 gram/dose powder See Rx Instructions .ROUTE .COMPLEX Qty: 119 0RF Rx Instructions: 17 g orally per instructions in your discharge paperwork. No Action hydroxyzine pamoate 50 mg capsule 50 mg PO BID 30 Days Qty: 60 0RF insulin lispro [Admelog U-100 Insulin lispro] 100 unit/mL Solution See Protocol subcut QIDACHS 30 Days Qty: 10 0RF Protocol: Insulin Correction Scale Less than or equal to 110 ---- Give (units): 0 111 to 150 Give (units): 0 151 to 200 Give (units): 2 201 to 250 Give (units): 4 251 to 300 Give (units): 6 301 to 350 Give (units): 8 Greater than 350 Give (units): 10 Call MD if Blood Glucose > : 350 Januvia 100 mg tablet 100 mg PO DAILY 30 Days Qty: 30 0RF metformin 1,000 mg tablet 1,000 mg PO BID melatonin 10 mg tablet 10 mg PO BEDTIME aspirin 81 mg tablet,delayed release (DR/EC) 81 mg PO DAILY paroxetine HCl 30 mg tablet 30 mg PO DAILY PRN (Reason: depressive disorder) quetiapine 50 mg tablet 50 mg PO BID PRN (Reason: AGITATION/RACING THOUGHTS) quetiapine 400 mg tablet 400 mg PO BEDTIME PRN (Reason: depressive disorder) insulin glargine [Lantus Solostar U-100 Insulin] 100 unit/mL (3 mL) insulin pen 15 unit subcut BEDTIME gabapentin 300 mg capsule 300 mg PO TID PRN (Reason: neuropathy) albuterol sulfate 90 mcg/actuation HFA aerosol inhaler 2 puff INHALATION QID PRN (Reason: wheezing) docusate sodium 100 mg Capsule 100 mg PO DAILY trazodone 50 mg tablet 50 mg PO BEDTIME PRN (Reason: Sleep) atorvastatin 40 mg tablet 40 mg PO DAILY pantoprazole 40 mg tablet,delayed release (DR/EC) 40 mg PO BID 56 Days Qty: 112 0RF dicyclomine 20 mg tablet 20 mg PO TID Qty: 10 0RF Print Language: [place]
[2024-10-24 18:38] LABS: MANUAL DIFF FLAG NO
[2024-10-24 18:41] LABS: Hematocrit 40.1 % (42.0-52.0); Hemoglobin 13.2 g/dl (14.0-18.0); Imm Gran Abs Auto 0.03 X10*3/uL (0.00-0.03); Imm Gran Pct Auto 0.5 % (0.0-0.4); Lymphocytes Absolute Auto 1.1 X10*3/uL (1.2-4.9); Mean Corpuscular HGB Conc 32.9 g/dl (31.0-36.0); Mean Corpuscular Hemoglobin 27.6 pg (27.0-33.0); Mean Corpuscular Volume 83.9 fL (80.0-98.0); NRBC Abs Auto 0.000 X10*3/uL (0.0-0.012); NRBC Pct Auto 0.0 /100WBC (0.0-0.2); Platelet Count 324 X10*3/uL (160-400); Red Blood Count 4.78 X10*6/uL (4.60-5.80); White Blood Count 6.6 X10*3/uL (4.8-10.8)
[2024-10-24 18:54] LABS: Alanine Aminotransferase 32 U/L (0-40); Albumin Level 5.0 g/dL (3.5-5.0); Alkaline Phosphatase 90 U/L (39-117); Anion Gap 18 (12-20); Aspartate Amino Transferase 37 U/L (5-37); Blood Urea Nitrogen 31 mg/dL (9-16); Calcium 9.8 mg/dL (8.4-10.2); Carbon Dioxide 28 mmol/L (22-29); Chloride 99 mmol/L (96-108); Creatinine Clr Calc Pharmacy 63.6; Estimated Glomerular Filt Rate 60; Magnesium 2.0 mg/dL (1.6-2.6); Potassium 4.1 mmol/L (3.3-5.1); Sodium 141 mmol/L (135-145); Total Protein 8.7 g/dL (6.5-8.0)
[2024-10-24 19:02] LABS: Troponin-I High Sensitivity 4.3 ng/L (<3.5-35.0)
[2024-10-24 19:31] LABS: INTERNATIONAL NORM RATIO 1.0 (0.9-1.1); Prothrombin Time 11.8 SEC (10.9-12.4)
[2024-10-24 19:33] LABS: Glucose, Whole Blood 151 mg/dL (60-115)
--- OUTSIDE RECORDS SUMMARY | 2024-10-24 19:46 | XMS_ITS ---
Author Organization [facility] Address [address] [place] [address] Phone Care Team Providers Care Stunner Animal Name Role Phone Yoel Parrish MD Primary Care Provider [phone] [facility] - Housing Status:Ongoing (Active) Start date:04/11/2024 Enrollment date:04/11/2024 Enrollment reason:Walk-in Related social drivers of health:Housing Instability Related program episode:Community Health Worker Program (Closed) Overview Housing service of Community Health Worker Program Case Team Name Relationship Phone Vu Chicas Community Health Worker(Respons ible Staff) Continued Care and Services Coordination
--- OUTSIDE RECORDS SUMMARY | 2024-10-24 19:46 | XMS_ITS | Clinical Summary ---
Author Organization [facility] Address [address] [facility] [address] [place] [phone] Phone Care Team Providers Care Bakery Team Member Name Role Phone Pcp, Unknown Primary Care Provider Unavailabl e Allergies Active Allergy Reactions Criticality Noted Date Comments Glipizide 06/27/2024 Oxycodone 06/27/2024 Oxycodone-Acetaminophen 09/02/2024 Other Reaction(s): Chest pain not present Medications albuterol 90 mcg/actuation inhaler Inhale 2 puffs into the lungs every 6 (six) hours as needed. 06/15/2024 Active traZODone (DESYREL) 50 MG tablet Take 50 mg by mouth nightly at bedtime. Active gabapentin (NEURONTIN) 300 MG capsule Take 300 mg by mouth 2 (two) times a day. 10/27/2023 Active atorvastatin (LIPITOR) 20 MG tablet Take 20 mg by mouth nightly at bedtime. 06/10/2024 Active SITagliptin phosphate (JANUVIA) 100 MG tablet Take 100 mg by mouth daily. Active PARoxetine (PAXIL) 40 MG tablet Take 40 mg by mouth daily. 04/04/2024 Active QUEtiapine (SEROQUEL) 300 MG tablet Take 300 mg by mouth nightly at bedtime. 06/15/2024 Active SEROQUEL 100 mg tablet Take 100 mg by mouth daily. 04/04/2024 Active omeprazole (PRILOSEC) 20 MG capsule Take 20 mg by mouth daily. 06/14/2024 Active metFORMIN (GLUCOPHAGE) 1000 MG tablet Take 1 tablet (1,000 mg total) by mouth 2 (two) times a day with meals. 180 tablet 09/04/2024 Active LANTUS SOLOSTAR U-100 INSULIN 100 unit/mL (3 mL) InPn injection pen Inject 15 Units under the skin nightly at bedtime. 15 mL 09/04/2024 Active Active Problems Problem Noted Date Diagnosed Date Suicidal ideations 07/16/2024 Mental health problem 07/06/2024 Encounters Date Type Department Care Team Description 09/04/2024 2:13 AM EDT - 09/04/2024 5:58 AM EDT [facility] [address] [place] [address] Brenda Sofia MD Discharge Disposition: Home or Self Care 09/03/2024 12:12 AM EDT - 09/03/2024 2:18 AM EDT Emergency [facility] [address] [place] [address] Vik Arrington MD Discharge Disposition: Home or Self Care from Last 3 Months Social History Tobacco Use Types Packs/Day Years Used Date Smoking Tobacco: Every Day Cigarettes Smokeless Tobacco: Never Tobacco Cessation:Ready to Q uit: Not Asked; Counseling Given: Not Answered Alcohol Use Standard Drinks/Week Comments Not Currently 0 (1 standard drink = 0.6 oz pur e alcohol) Education Answer Date Recorded Are you interested in more education? Not on shireen e 06/28/2024 Are you concerned about learning? Not on file 06/28/2024 No 06/28/2024 No 06/28/2024 Food Answer Date Recorded Within the past 6 months we worried whether our food would run out before we got money to buy more. Never True 09/04/2024 Within the past 6 months the food we bought just didn't last and we didn't have enough money to get more. Never True Residential Stability Answer Date Recor ded What is your housing situation today? I have iris sing 09/04/2024 How many times have you move d in the past 12 months? Zero (I did not move) 09/04/2024 Paying for Meds Answer Date Recorded Do you have trouble paying for medicines? No 09/04/2024 Paying Utility Bills Answer Date Record ed Do you have trouble paying your heating or elect ricity bill? No 09/04/2024 Transportation Answer Date Recorded Has the lack of transportati on kept you from medical appointments or from getting medications? No 09/04/2024 Digital Access Answer Date Recorded No 09/04/2024 Yes 09/04/2024 Do you have reliable internet access at home? Ye s 09/04/2024 Do you have a device (e.g., phone, tablet, computer) with a working camera? Yes 09/04/2024 Intimate Partner Violence Answer Date R ecorded Are you denied basic needs s uch as food, clothing, or medical care? No 09/04/2024 In the past 12 months have y ou been in a relationship with a person who hurts, threatens, or tries to control you? No 09/04/2024 Are you denied basic needs s uch as food, clothing, or medical care? No 09/04/2024 In the past 12 months have y ou been in a relationship with a person who hurts, threatens, or tries to control you? No 09/04/2024 Sex and Gender Information Value Date Recorded Sex Assigned at Male 09/02/2024 10:05 PM EDT Legal Sex Male 9:56 PM EDT Gender Identity Male 09/02/2024 10:05 PM EDT Sexual Orientation Straight 09/02/2024 10 :05 PM EDT Last Filed Vital Signs Vital Sign Reading Time Taken Comments Blood Pressure 117/72 09/04/2024 5:11 AM EDT Pulse 95 09/04/2024 5:11 AM EDT Temperature 36.6 C (97.9 F) 09/04/2024 5:11 AM EDT Respiratory Rate 20 09/04/2024 5:11 AM EDT Oxygen Saturation 98% 09/04/2024 5:11 AM EDT Inhaled Oxygen Concentration - - Weight 63.5 kg (139 lb 15.9 oz) 09/04/2024 2:15 AM EDT Height 170.2 cm (5' 7.01 ) 09/04/2024 2:15 AM ED T Body Mass Index 21.92 09/04/2024 2:15 AM EDT Plan of Treatment Health Maintenance Due Date Last Done Comments Adult Td,Tdap Booster 1966 BLOOD PRESSURE 1966 DEPRESSION SCREENING 1978 SMOKING Hx and SMOKELESS TOBACCO SCREENING 1979 HEPATITIS C SCREENING 01/07/1984 HIV ONE-TIME SCREENING (18-65 YEARS) 01/07/1984 PNEUMOCOCCAL VACCINES (50+ years) (1 of 2 - PCV) 1985 COLOGUARD 2011 COLONOSCOPY 2011 COLORECTAL CANCER SCREENING 2011 FIT TEST 2011 FOBT 2011 SIGMOIDOSCOPY 2011 VIRTUAL COLONOSCOPY 2011 ZOSTER VACCINES (1 of 2) 01/07/2016 COVID-19 VACCINE ( - season) 2023 DIABETIC EYE EXAM 09/15/2024 URINE MICROALBUMIN/CREATININE RATIO 09/15/2024 HEMOGLOBIN A1C 02/25/2025 08/26/2024, 08/05/2024 CREATININE LEVEL 09/04/2025 09/04/2024, , 07/06/2024, Additional history exists HEPATITIS A VACCINES Aged Out No long er eligible based on patient's age to complete this topic HIB VACCINES Aged Out No longer eligi ble based on patient's age to complete this topic MENINGOCOCCAL VACCINES (ACWY) Aged Out No longer eligible based on patient's age to complete this topic MENINGOCOCCAL VACCINES (B) Aged Out N o longer eligible based on patient's age to complete this topic Medical Devices Not on file Procedures Procedure Name Priority Date/Time Associated Diagnosis Comments POCT GLUCOSE Routine 09/04/2024 5:32 AM EDT CPK (CREATINE KINASE) STAT 09/04/2024 4:28 AM EDT BASIC METABOLIC PANEL STAT 09/04/2024 4:28 AM EDT CBC AND DIFFERENTIAL STAT 09/04/2024 4:28 AM EDT URINE SEDIMENT STAT 09/04/2024 2:45 AM EDT URINALYSIS W/REFLEX URINE CULTURE STAT 09/04/2024 2:45 AM EDT POCT GLUCOSE Routine 09/03/2024 12:53 AM EDT from Last 3 Months Results * (ABNORMAL) POCT Glucose (09/04/2024 5:32 AM EDT) Only the most recent of2 resultswithin the time period is included. Glucose, POCT 282(H) 70 - 100 mg/dL [facility] 09/04/2024 5:32 AM EDT 09/04/2024 5:38 AM EDT us Brenda Sofia MD POINT OF CARE TEST ORDERABLE S Final Result [address] [address] * (ABNORMAL) CBC and differential (09/04/2024 4:28 AM EDT) WBC 8.93 4.00 - 11.00 K/uL [facility] RBC 4.75 4.50 - 5.90 M/uL [facility] HGB 13.2(L) 13.5 - 17.5 g/dL [facility] HCT 39.9(L) 41.0 - 53.0 % [facility] PLT 244 150 - 450 K/uL [facility] MCV 84.0 80.0 - 100.0 fL [facility] MCH 27.8 27.0 - 31.0 pg [facility] MCHC 33.1 32.0 - 36.0 g/dL [facility] RDW 13.5 11.5 - 14.5 % [facility] MPV 9.5 8.4 - 12.0 fL [facility] NRBC 0.00 0.00 /100 WBCs [facility] ABSOLUTE NRBC 0.00 0.00 K/uL [facility] DIFF METHOD Auto [facility] NEUTS 69.5 48.0 - 76.0 % [facility] LYMPHS 19.8 18.0 - 41.0 % [facility] MONOS 9.6 4.0 - 11.0 % [facility] EOS 0.6 0.0 - 5.0 % [facility] BASOS 0.3 0.0 - 1.5 % [facility] Granulocytes, immature (%) 0.2 0.0 - 0.9 % [facility] ABSOLUTE NEUTS 6.20 1.92 - 7.60 K/uL [facility] ABSOLUTE LYMPHS 1.77 0.72 - 4.10 K/uL [facility] ABSOLUTE MONOS 0.86 0.16 - 1.10 K/uL [facility] ABSOLUTE EOS 0.05 0.00 - 0.50 K/uL [facility] ABSOLUTE BASOS 0.03 0.00 - 0.15 K/uL [facility] Granulocytes, immature 0.02 0.00 - 0.09 K/uL [facility] Blood 09/04/2024 4:28 AM EDT 09/04/2024 4:30 AM EDT us Brenda Sofia MD LAB BLOOD ORDERABLES Final R esult Performing Organization Address City/[facility]/ZIP Co de Phone Number [address] [address] * (ABNORMAL) CPK (creatine kinase) (09/04/2024 4:28 AM EDT) CREATINE KINASE 257(H) 35 - 232 U/L [facility] Blood 09/04/2024 4:28 AM EDT 09/04/2024 4:30 AM EDT us Brenda Sofia MD LAB BLOOD ORDERABLES Final R esult Performing Organization Address City/[facility] Co de Phone Number [address] [address] * (ABNORMAL) Basic metabolic panel (09/04/2024 4:28 AM EDT) SODIUM 134 133 - 146 mmol/L [facility] CHLORIDE 99 96 - 108 mmol/L [facility] POTASSIUM 4.2 3.3 - 5.1 mmol/L [facility] CO2 23 21 - 35 mmol/L [facility] BUN 27(H) 6 - 19 mg/dL [facility] CREATININE 1.20 0.5 - 1.5 mg/dL [facility] GLUCOSE 329(H) 70 - 99 mg/dL [facility] CALCIUM 9.2 8.4 - 10.3 mg/dL [facility] EGFR 70 >59 mL/min/1.7 3m2 [facility] Comment:Estimated glomerular filtration rate calculated using the CKD-EPI refit equation. ANION GAP 16 10 - 20 mmol/L [facility] Blood 09/04/2024 4:28 AM EDT 09/04/2024 4:30 AM EDT Brenda Sofia MD LAB BLOOD ORDERABLES Final R esult Performing Organization Address City/[facility]/ZIP Co de Phone Number [address] [address] * (ABNORMAL) Urinalysis w/reflex Urine Culture (09/04/2024 2:45 AM EDT) COLOR Yellow Yellow [facility] CLARITY HAZY [facility] GLUCOSE Negative Negative [facility] BILI 1+(A) Negative [facility] KETONES Negative Negative [facility] SPECIFIC GRAVITY >1.030 1.005 - 1.030 [facility] BLOOD 1+(A) Negative [facility] PH 6.0 5.0 - 8.0 [facility] Protein-UA 3+(A) Negative [facility] NITRITE Negative Negative [facility] Leukocyte esterase, ur Negative Negative [facility] Urine (Urine) 09/04/2024 2:4 5 AM EDT 09/04/2024 2:48 AM EDT Brenda Sofia MD URINE ORDERABLES Final Resul t Performing Organization Address [facility]/ZIP Co de Phone Number [address] [address] * (ABNORMAL) Urine sediment (09/04/2024 2:45 AM EDT) WBC 0-4(A) NONE SEEN /hpf [facility] RBC 3-5(A) NONE SEEN /hpf [facility] URINE EPITHELIAL 0-4(A) NONE SEEN [facility] MUCUS 3+(A) NONE SEEN /hpf [facility] BACTERIA Trace(A) NONE SEEN /hpf [facility] CAST 6-10 [facility] Comment:HYALINE CAST 09/04/2024 2:45 AM EDT 09/04/2024 2:48 AM EDT us Brenda Sofia MD URINE ORDERABLES Final Resul t [facility] [address] [place] [address] from Last [address] [place] [address] MEDICARE REPLACEMENT [id number] [place] [id number] [place] [address] MEDICARE REPLACEMENT [place] [id number] [place] [address] MEDICARE REPLACEMENT FORMERLY [facility] MEDICARE REPLACEMENT [place] [address] MEDICARE REPLACEMENT [facility] CARE MEDICARE REPLACEMENT Care Teams Bakery Team Member Relationship Specialty Start Date End Date Pcp, Unknown PCP - General 07/16/24 Additional Source Comments The information contained in this document represents components of the legal health record. It is not the complete legal health record.[facility]
--- OUTSIDE RECORDS SUMMARY | 2024-10-24 19:46 | XMS_ITS ---
Author Organization [facility] Address [address] [place] [address] Phone Care Team Providers Care Livestock Counter Name Role Phone Yoel Parrish MD Primary Care Provider [phone] [facility] - Behavioral Health Status:Ongoing (Active) Start date:04/11/2024 Enrollment date:04/11/2024 Enrollment reason:Walk-in Related program episode:Community Health Worker Program (Closed) Overview Behavior Health service of Community Health Worker Program Case Team Name Relationship Phone Vu Chicas Community Health Worker(Respons ible Staff) Continued Care and Services Coordination
--- OUTSIDE RECORDS SUMMARY | 2024-10-24 19:46 | XMS_ITS | Encounter Summary ---
Author Organization [facility] Address [address] [place] [address] Care Team Providers Care Training And Development Manager Name Role Phone Yoel Parrish MD Primary Care Provider [phone] Encounter Details Date Type Department Care Team (Late st Contact Info) Description 08/29/2024 Lab Requisition [facility] - Main Lab [address] [facility] [place] [phone] [address] Social History Tobacco Use Types Packs/Day Years [...] care for your loved ones. For example, child study team director or elderly care for an older adult? [...] PM EST documented as of this encounter Functional Status * Are you deaf or do you have serious difficulty hearing? Answer Date of Assessment Author No 08/24/2024 3:28 PM EDT Marcela Dimas RN * Are you blind or do you have serious difficulty seeing, even when wearing glasses? Answer Date of Assessment Author No 08/24/2024 3:28 PM EDT Marcela Dimas, RN * Do you have serious difficulty walking or climbing stairs? Answer Date of Assessment Author No 08/24/2024 3:28 PM EDT Marcela Dimas RN * Do you have serious difficulty dressing or bathing? Answer Date of Assessment Author No 08/24/2024 3:28 PM EDT Marcela Dimas RN * Because of a physical, mental, or emotional condition, do you have serious difficulty doing errandsalone such as visiting the doctor? Answer Date of Assessment Author No 08/24/2024 3:28 PM EDT Marcela Dimas RN documented as of this encounter Mental Status * Because of a physical, mental, or emotional condition, do you have serious difficulty concentrating, remembering, or making decisions? (5 years old or older) Answer Entry Date Author No 08/24/2024 3:28 PM EDT Marcela Dimas RN documented in this encounter Plan of Treatment Not on file documented as of this encounter Visit Diagnoses Not on filedocumented in this encounter Care Teams Training And Development Manager Relationship Specialty Start Date End Date Yoel Parrish MD [address] [place] [phone] PCP - General Internal Medicine 01/27/24 documented as of this encounter
--- OUTSIDE RECORDS SUMMARY | 2024-10-24 19:46 | XMS_ITS | Clinical Summary ---
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 time period is included. Ethanol Level <3 0 - 10 mg/dL LAB CHEMISTRY METHOD 10/04/2024 12:37 AM EDT [facility] Blood Venous blood specimen / Unknown Venipuncture / Unknown 10/03/2024 11:59 PM EDT 10/04/2024 12:07 AM EDT us Pilar Landeros MD LAB BLOOD ORDERABLES Final Res ult Performing Organization Address [facility] de Phone Number [facility] [address] [place] [address], [place] [phone] * (ABNORMAL) Acetaminophen level (10/03/2024 11:59 PM EDT) Only the most recent of3 resultswithin the time period is included. Acetaminophen Level <2.0(L) 10.0 - 30.0 mcg/mL LAB CHEMISTRY METHOD 10/04/2024 12:37 AM EDT [facility] Blood Venous blood specimen / Unknown Venipuncture / Unknown 10/03/2024 11:59 PM EDT 10/04/2024 12:07 AM EDT us Pilar Landeros MD LAB BLOOD ORDERABLES Final Res ult Performing Organization Address City/[facility]/ZIP Co de Phone Number [facility] [address] [place] [address], [place] [phone] * (ABNORMAL) Salicylate level (10/03/2024 11:59 PM EDT) Only the most recent of3 resultswithin the time period is included. Salicylate Level 1.9(L) 2.0 - 29.0 mg/dL LAB CHEMISTRY METHOD 10/04/2024 12:37 AM EDT [facility] Blood Venous blood specimen / Unknown Venipuncture / Unknown 10/03/2024 11:59 PM EDT 10/04/2024 12:07 AM EDT Pilar Landeros MD LAB BLOOD ORDERABLES Final Res ult Performing Organization Address [facility]/ZIP Co de Phone Number [facility] [address] [place] [address], [place] [phone] * (ABNORMAL) Comprehensive metabolic panel (10/03/2024 11:59 PM EDT) Only the most recent of8 resultswithin the time period is included. Sodium 135 133 - 145 mmol/L LAB CHEMISTRY METHOD 10/04/2024 12:[address] [facility] Potassium 3.7 3.5 - 5.5 mmol/L LAB CHEMISTRY METHOD 10/04/2024 12:[address] [facility] Chloride 105 96 - 110 mmol/L LAB CHEMISTRY METHOD 10/04/2024 12:[address] [facility] CO2 26 21 - 32 mmol/L LAB CHEMISTRY METHOD 10/04/2024 12:[address] [facility] Anion Gap 4 3 - 11 LAB CHEMISTRY METHOD 10/04/2024 12:[address] [facility] Glucose 126(H) 70 - 100 mg/dL LAB CHEMISTRY METHOD 10/04/2024 12:[address] [facility] BUN 34(H) 5 - 25 mg/dL LAB CHEMISTRY METHOD 10/04/2024 12:[address] [facility] Creatinine 1.23 0.70 - 1.30 mg/dL LAB CHEMISTRY METHOD 10/04/2024 12:[address] [facility] eGFR 68 >=60 mL/min/1. 73m2 LAB CHEMISTRY METHOD 10/04/2024 12:[address] [facility] Comment:Calculation based on the Chronic Kidney Disease Epidemiology Collaboration (CKD-EPI) equation refit without adjustment for race. BUN/Creatinine Ratio 27.6 LAB CHEMISTRY METHOD 10/04/2024 12:[address] [facility] Calcium 9.0 8.5 - 10.5 mg/dL LAB CHEMISTRY METHOD 10/04/2024 12:[address] [facility] AST (SGOT) 51(H) 10 - 42 unit/L LAB CHEMISTRY METHOD 10/04/2024 12:[address] [facility] ALT (SGPT) 47 10 - 60 unit/L LAB CHEMISTRY METHOD 10/04/2024 12:[address] [facility] Alkaline Phosphatase 92 42 - 121 unit/L LAB CHEMISTRY METHOD 10/04/2024 12:[address] [facility] Total Protein 7.6 6.0 - 8.0 g/dL LAB CHEMISTRY METHOD 10/04/2024 12:[address] [facility] Albumin 4.2 3.2 - 5.0 g/dL LAB CHEMISTRY METHOD 10/04/2024 12:[address] [facility] Total Bilirubin 0.6 0.0 - 1.4 mg/dL LAB CHEMISTRY METHOD 10/04/2024 12:[address] [facility] Blood Venous blood specimen / Unknown Venipuncture / Unknown 10/03/2024 11:59 PM EDT 10/04/2024 12:07 AM EDT us Pilar Landeros MD LAB BLOOD ORDERABLES Final Res ult [facility] [address] [place] [address], [place] [phone] * CT Lumbar Spine wo Contrast (09/29/2024 12:47 AM EDT) Anatomical Region Laterality Modality Spine, L-spine Computed Tomogra phy 09/29/2024 1:37 AM EDT Impressions 09/29/2024 1:37 AM EDT No acute findings. Nonemergent/incidental findings above. This document has been electronically signed by: Jossue Mondragon MD on 09/29/2024 01:37:39 Narrative 09/29/2024 1:37 AM EDT INDICATION: fall CT Lumbar Spine WO Contrast COMPARISON: None provided FINDINGS: No acute fracture or malalignment. Degenerative changes in the spine. Atherosclerosis. Unremarkable soft tissues. Procedure Note Jossue Mondragon MD - 09/29/2024 INDICATION: fall CT Lumbar Spine WO Contrast COMPARISON: None provided FINDINGS: No acute fracture or malalignment. Degenerative changes in the spine. Atherosclerosis. Unremarkable soft tissues. IMPRESSION: No acute findings. Nonemergent/incidental findings above. This document has been electronically signed by: Jossue Mondragon MD on 09/29/2024 01:37:39 Lory Silva [employer] IMG CT PROCEDURES Final R esult * (ABNORMAL) Urinalysis with reflex microscopic (09/17/2024 12:31 AM EDT) Specific [place]on Urine 1.029 1.003 - 1.030 LAB URINALYSIS - AUTOMATED METHOD 09/17/2024 12:52 AM EDT [facility] pH, Urine 6.0 5.0 - 8.0 pH LAB URINALYSIS - AUTOMATED METHOD 09/17/2024 12:52 AM EDT [facility] Leukocytes, Urine Negative Negative LAB URINALYSIS - AUTOMATED METHOD 09/17/2024 12:[address] [facility] Nitrite, Urine Negative Negative LAB URINALYSIS - AUTOMATED METHOD 09/17/2024 12:[address] [facility] Protein, Urine 30(A) <=Trace mg/dL LAB URINALYSIS - AUTOMATED METHOD 09/17/2024 12:[address] [facility] Glucose, Urine Negative Negative mg/dL LAB URINALYSIS - AUTOMATED METHOD 09/17/2024 12:[address] [facility] Ketones, Urine Trace(A) Negative mg/dL LAB URINALYSIS - AUTOMATED METHOD 09/17/2024 12:[address] [facility] Urobilinogen, Urine 1.0 0.2 - 1.0 mg/dL LAB URINALYSIS - AUTOMATED METHOD 09/17/2024 12:[address] [facility] Bilirubin, Urine Negative Negative LAB URINALYSIS - AUTOMATED METHOD 09/17/2024 12:[address] [facility] Blood, Urine Negative Negative LAB URINALYSIS - AUTOMATED METHOD 09/17/2024 12:[address] [facility] RBC, Urine 4.3(H) 0 - 4 /HPF LAB URINALYSIS - AUTOMATED METHOD 09/17/2024 12:[address] [facility] WBC, Urine 0.8 0 - 4 /HPF LAB URINALYSIS - AUTOMATED METHOD 09/17/2024 12:[address] [facility] Squamous Epithelial, Urine 9 0 - 60 /LPF LAB URINALYSIS - AUTOMATED METHOD 09/17/2024 12:[address] [facility] Bacteria, Urine Negative Negative /HPF LAB URINALYSIS - AUTOMATED METHOD 09/17/2024 12:[address] [facility] Hyaline Casts, Urine 0.0 0 - 3 /LPF LAB URINALYSIS - AUTOMATED METHOD 09/17/2024 12:[address] [facility] Urine Urine specimen obtained by clean catch procedure / Unknown Non-blood Collection / Unknown 09/17/2024 12:31 AM EDT 09/17/2024 12:40 AM EDT Demetrius Isas MD LAB URINE ORDERABLES Final R esult Performing Organization Address [facility]/ZIP Co de Phone Number [facility] [address] [place] [address], [place] [phone] * Lactate, with reflex (09/12/2024 1:44 AM EDT) Only the most recent of2 resultswithin the time period is included. LACTIC ACID 1.9 0.4 - 2.0 mmol/L LAB CHEMISTRY METHOD 09/12/2024 2:17 AM EDT [facility] Blood Venous blood specimen / Unknown Venipuncture / Unknown 09/12/2024 1:44 AM EDT 09/12/2024 1:54 AM EDT Elias Uribe MD LAB BLOOD ORDERABLES Final Resu lt Performing Organization Address [facility]/ZIP Co de Phone Number [facility] [address] [place] [address], [place] [phone] * CT Abdomen Pelvis w Contrast (09/10/2024 8:33 AM EDT) Anatomical Region Laterality Modality Body Computed Tomogra phy 09/10/2024 8:55 AM EDT Impressions 09/10/2024 9:00 AM EDT 1. No acute findings. 2. Linear metallic foreign body in the lumen of the stomach near the gastroesophageal junction. 3. Mild hepatic steatosis. -------- FINAL REPORT -------- Dictated By: Bryant Peterson Dictated Date: 09/10/2024 08:55 ET Assigned Physician: Bryant Peterson Reviewed and Electronically Signed By: Bryant Peterson Signed Date: 09/10/2024 09:00 ET Workstation ID: [id number] Transcribed By: Self Edit Transcribed Date: 09/10/2024 08:55 ET Narrative 09/10/2024 9:00 AM EDT PROCEDURE: Contrast enhanced CT of the abdomen and pelvis. HISTORY: Abdominal pain, acute, nonlocalized. COMPARISON: 08/18/2024. TECHNIQUE: Contrast-enhanced CT of the abdomen and pelvis with coronal and sagittal reformats. IV contrast dose: 90 mL ISOVUE-370. Dose length product: 856 mGy-cm. FINDINGS: Lung bases: Patchy dependent groundglass opacities, likely atelectasis. Cardiac: Mild aortic annular and coronary artery calcification. Liver: Mild steatosis. No focal lesion. Portal veins are patent. Biliary: Contracted gallbladder. Normal biliary tree. Pancreas: Normal. Spleen: Normal. Adrenal glands: Normal. Kidneys: Normal. Normal appearance of the ureters. Retroperitoneum: No mass or adenopathy. Abdominal vasculature: Normal. Bowel/mesentery: There is a thin linear metallic foreign body in stomach near the gastroesophageal junction. Redundant sigmoid. Normal appendix. No obstruction or adenopathy. No mass or ascites. Abdominal wall: Normal. Pelvic nodes: No adenopathy. Pelvic organs: Mildly enlarged prostate with dystrophic calcifications. Bones: Mild degenerative changes of the spine. Procedure Note Bryant Peterson MD - 09/10/2024 PROCEDURE: Contrast enhanced CT of the abdomen and pelvis. HISTORY: Abdominal pain, acute, nonlocalized. COMPARISON: 08/18/2024. TECHNIQUE: Contrast-enhanced CT of the abdomen and pelvis with coronal andsagittal reformats. IV contrast dose: 90 mL ISOVUE-370. Dose length product: 856 mGy-cm. FINDINGS: Lung bases: Patchy dependent groundglass opacities, likely atelectasis. Cardiac: Mild aortic annular and coronary artery calcification. Liver: Mild steatosis. No focal lesion. Portal veins are patent. Biliary: Contracted gallbladder. Normal biliary tree. Pancreas: Normal. Spleen: Normal. Adrenal glands: Normal. Kidneys: Normal. Normal appearance of the ureters. Retroperitoneum: No mass or adenopathy. Abdominal vasculature: Normal. Bowel/mesentery: There is a thin linear metallic foreign body in stomachnear the gastroesophageal junction. Redundant sigmoid. Normal appendix.No obstruction or adenopathy. No mass or ascites. Abdominal wall: Normal. Pelvic nodes: No adenopathy. Pelvic organs: Mildly enlarged prostate with dystrophic calcifications. Bones: Mild degenerative changes of the spine. IMPRESSION: 1. No acute findings. 2. Linear metallic foreign body in the lumen of the stomach near thegastroesophageal junction. 3. Mild hepatic steatosis. -------- FINAL REPORT -------- Dictated By: Bryant Peterson Dictated Date: 09/10/2024 08:55 ET Assigned Physician: Bryant Peterson Reviewed and Electronically Signed By: Bryant Peterson Signed Date: 09/10/2024 09:00 ET Workstation ID: [id number] Transcribed By: Self Edit Transcribed Date: 09/10/2024 08:55 ET us Oral Echevarria MD IMG CT PROCEDURES Final Result * Lipase (09/10/2024 5:26 AM EDT) [facility] Lipase 71 13 - 75 unit/L LAB CHEMISTRY METHOD 09/10/2024 7:08 AM EDT [facility] Blood Venous blood specimen / Unknown Venipuncture / Unknown 09/10/2024 5:26 AM EDT 09/10/2024 6:16 AM EDT us Oral Echevarria MD LAB BLOOD ORDERABLES Final Resu lt [facility] [address] [place] [address], [place] [phone] * (ABNORMAL) Urinalysis with reflex microscopic and culture (09/05/2024 6:59 PM EDT) Only the most recent of3 resultswithin the time period is included. [facility] Specific [place] Urine 1.031(H) 1.003 - 1.030 LAB URINALYSIS - AUTOMATED METHOD 09/05/2024 7:49 PM EDT [facility] pH, Urine 5.5 5.0 - 8.0 pH LAB URINALYSIS - AUTOMATED METHOD 09/05/2024 7:[address] [facility] Leukocytes, Urine Negative Negative LAB URINALYSIS - AUTOMATED METHOD 09/05/2024 7:[address] [facility] Nitrite, Urine Negative Negative LAB URINALYSIS - AUTOMATED METHOD 09/05/2024 7:[address] [facility] Protein, Urine 100(A) <=Trace mg/dL LAB URINALYSIS - AUTOMATED METHOD 09/05/2024 7:[address] [facility] Glucose, Urine Negative Negative mg/dL LAB URINALYSIS - AUTOMATED METHOD 09/05/2024 7:[address] [facility] Ketones, Urine Trace(A) Negative mg/dL LAB URINALYSIS - AUTOMATED METHOD 09/05/2024 7:[address] [facility] Urobilinogen, Urine 1.0 0.2 - 1.0 mg/dL LAB URINALYSIS - AUTOMATED METHOD 09/05/2024 7:[address] [facility] Bilirubin, Urine Negative Negative LAB URINALYSIS - AUTOMATED METHOD 09/05/2024 7:[address] [facility] Blood, Urine Trace(A) Negative LAB URINALYSIS - AUTOMATED METHOD 09/05/2024 7:[address] [facility] RBC, Urine 2.2 0 - 4 /HPF LAB URINALYSIS - AUTOMATED METHOD 09/05/2024 7:[address] [facility] WBC, Urine 1.2 0 - 4 /HPF LAB URINALYSIS - AUTOMATED METHOD 09/05/2024 7:[address] [facility] Squamous Epithelial, Urine 15 0 - 60 /LPF LAB URINALYSIS - AUTOMATED METHOD 09/05/2024 7:[address] [facility] Bacteria, Urine Negative Negative /HPF LAB URINALYSIS - AUTOMATED METHOD 09/05/2024 7:49 PM EDT [facility] Hyaline Casts, Urine 0.8 0 - 3 /LPF LAB URINALYSIS - AUTOMATED METHOD 09/05/2024 7:49 PM EDT [facility] Urine Urine specimen obtained by clean catch procedure / Unknown Non-blood Collection / Unknown 09/05/2024 6:59 PM EDT 09/05/2024 7:27 PM EDT Charles Wilhelm MD LAB URINE ORDERABLES Final Result Performing Organization Address [facility] Co de Phone Number [facility] [address] [place] [address], [place] [phone] * [place] urine culture tube (09/05/2024 6:59 PM EDT) Only the most recent of3 resultswithin the time period is included. Extra Tube Hold for add-ons. 09/05/2024 9:01 PM EDT [facility] Comment:Auto resulted. Urine Urine specimen obtained by clean catch procedure / Unknown Non-blood Collection / Unknown 09/05/2024 6:59 PM EDT 09/05/2024 7:28 PM EDT Charles Wilhelm MD LAB URINE ORDERABLES Final Result Performing Organization Address [facility] Co de Phone Number [facility] [address] [place] [address], [place] [phone] * XR Hip 2-3 Views Right (09/02/2024 1:20 AM EDT) Anatomical Region Laterality Modality Lower Extremities, Hip Right Radiograp hic Imaging 09/02/2024 7:56 AM EDT Impressions 09/02/2024 7:56 AM EDT FINDINGS/IMPRESSION: No acute fracture. Normal alignment. -------- FINAL REPORT -------- Dictated By: Tesha Torres Dictated Date: 09/02/2024 07:56 ET Assigned Physician: Tesha Torres Reviewed and Electronically Signed By: Tesha Torres Signed Date: 09/02/2024 07:56 ET Workstation ID: [id number] Transcribed By: Self Edit Transcribed Date: 09/02/2024 07:56 ET Narrative 09/02/2024 7:56 AM EDT XR HIP 2-3 VIEWS RIGHT INDICATION: pain TECHNIQUE: XR HIP 2-3 VIEWS RIGHT COMPARISON: No priors available. Procedure Note Tesha Torres MD - 09/02/2024 XR HIP 2-3 VIEWS RIGHT INDICATION: pain TECHNIQUE: XR HIP 2-3 VIEWS RIGHT COMPARISON: No priors available. IMPRESSION: FINDINGS/IMPRESSION: No acute fracture. Normal alignment. -------- FINAL REPORT -------- Dictated By: Tesha Torres Dictated Date: 09/02/2024 07:56 ET Assigned Physician: Tesha Torres Reviewed and Electronically Signed By: Tesha Torres Signed Date: 09/02/2024 07:56 ET Workstation ID: [id number] Transcribed By: Self Edit Transcribed Date: 09/02/2024 07:56 ET Elias Uribe MD IMG XR PROCEDURES Final Result * XR Lumbar Spine 2-3 Views (09/02/2024 1:20 AM EDT) Anatomical Region Laterality Modality Spine, L-spine Radiographic Keila ging 09/02/2024 7:55 AM EDT Impressions 09/02/2024 7:56 AM EDT FINDINGS/IMPRESSION: Multilevel degenerative changes. No acute fracture. Normal alignment. -------- FINAL REPORT -------- Dictated By: Tesha Torres Dictated Date: 09/02/2024 07:55 ET Assigned Physician: Tesha Torres Reviewed and Electronically Signed By: Tesha Torres Signed Date: 09/02/2024 07:56 ET Workstation ID: [id number] Transcribed By: Self Edit Transcribed Date: 09/02/2024 07:55 ET Narrative 09/02/2024 7:56 AM EDT XR LUMBAR SPINE 2-3 VIEWS INDICATION: pain TECHNIQUE: XR LUMBAR SPINE 2-3 VIEWS COMPARISON: No priors available. Procedure Note Tesha Torres MD - 09/02/2024 XR LUMBAR SPINE 2-3 VIEWS INDICATION: pain TECHNIQUE: XR LUMBAR SPINE 2-3 VIEWS COMPARISON: No priors available. IMPRESSION: FINDINGS/IMPRESSION: Multilevel degenerative changes. No acute fracture.Normal alignment. -------- FINAL REPORT -------- Dictated By: Tesha Torres Dictated Date: 09/02/2024 07:55 ET Assigned Physician: Tesha Torres Reviewed and Electronically Signed By: Tesha Torres Signed Date: 09/02/2024 07:56 ET Workstation ID: [id number] Transcribed By: Self Edit Transcribed Date: 09/02/2024 07:55 ET Elias Uribe MD IMG XR PROCEDURES Final Result * (ABNORMAL) Basic metabolic panel (08/29/2024 7:00 AM EDT) Sodium 138 133 - 145 mmol/L LAB CHEMISTRY METHOD 08/29/2024 11:[address] [facility] Potassium 4.4 3.5 - 5.5 mmol/L LAB CHEMISTRY METHOD 08/29/2024 11:[address] [facility] Chloride 104 96 - 110 mmol/L LAB CHEMISTRY METHOD 08/29/2024 11:[address] [facility] CO2 28 21 - 32 mmol/L LAB CHEMISTRY METHOD 08/29/2024 11:[address] [facility] Anion Gap 6 3 - 11 LAB CHEMISTRY METHOD 08/29/2024 11:[address] [facility] Glucose 175(H) 70 - 100 mg/dL LAB CHEMISTRY METHOD 08/29/2024 11:[address] [facility] BUN 19 5 - 25 mg/dL LAB CHEMISTRY METHOD 08/29/2024 11:[address] [facility] Creatinine 1.06 0.70 - 1.30 mg/dL LAB CHEMISTRY METHOD 08/29/2024 11:26 AM EDT [facility] eGFR 81 >=60 mL/min/1. 73m2 LAB CHEMISTRY METHOD 08/29/2024 11:26 AM EDT [facility] Comment:Calculation based on the Chronic Kidney Disease Epidemiology Collaboration (CKD-EPI) equation refit without adjustment for race. BUN/Creatinine Ratio 17.9 LAB CHEMISTRY METHOD 08/29/2024 11:26 AM EDT [facility] Calcium 8.7 8.5 - 10.5 mg/dL LAB CHEMISTRY METHOD 08/29/2024 11:26 AM EDT [facility] Blood Venous blood specimen / Unknown Venipuncture / Unknown 08/29/2024 7:00 AM EDT 08/29/2024 10:10 AM EDT [facility] [place] LAB BLOOD ORDERABLES Final Resul t Performing Organization Address City/[facility]/ZIP Co de Phone Number [facility] [address] [place] [address], [place] [phone] * (ABNORMAL) Hemoglobin A1c (08/26/2024 7:00 AM EDT) Only the most recent of2 resultswithin the time period is included. Hemoglobin A1C 8.5(H) <6.5 % LAB CHEMISTRY METHOD 08/26/2024 2:31 PM EDT [facility] Mean Bld Glu Estim. 197 mg/dL LAB CHEMISTRY METHOD 08/26/2024 2:31 PM EDT [facility] Blood Venous blood specimen / Unknown Venipuncture / Unknown 08/26/2024 7:00 AM EDT 08/26/2024 11:03 AM EDT [facility] [place] LAB BLOOD ORDERABLES Final Resul t [facility] [address] [place] [address], [place] [phone] * CT Abdomen Pelvis wo Contrast (08/18/2024 5:15 AM EDT) Anatomical Region Laterality Modality Body Computed Tomogra phy 08/18/2024 6:39 AM EDT Impressions 08/18/2024 6:39 AM EDT Impression: 1. No evidence of nephrolithiasis or renal obstruction. 2. Nonemergent findings as above. This document has been electronically signed by: Dean Melgar MD on 08/18/2024 06:39:47 Narrative 08/18/2024 6:39 AM EDT INDICATION: Flank pain, kidney stone suspected CT abdomen and pelvis without contrast Comparison: None Findings: Imaged heart is normal. Bibasilar emphysema mild interstitial disease. No acute findings. No free air, ascites or fluid collections. Diffuse arterial calcified plaque. No aortic aneurysm. No enlarged lymph nodes. Spleen and adrenal glands are normal. Gallbladder is contracted. Diffuse hepatic low-density indicative of steatosis. No acute pancreatic findings. Mild diffuse pancreatic duct dilatation measuring 4 mm indeterminate etiology. Follow-up MRI imaging of the pancreas should be made on a clinical basis. Distal esophageal wall thickening indicative of esophagitis. Stomach, small bowel and appendix are normal. Large colonic stool volume. Bowel distention, bowel wall thickening or pneumatosis. No renal calculi or hydronephrosis. Bladder is normal. Prostate is nonenlarged. No acute soft tissue or bony findings. Multilevel thoracic and lumbar spine disc disease facet arthropathy. Procedure Note Dean Melgar MD - 08/18/2024 INDICATION: Flank pain, kidney stone suspected CT abdomen and pelvis without contrast Comparison: None Findings: Imaged heart is normal. Bibasilar emphysema mild interstitial disease.No acute findings. No free air, ascites or fluid collections. Diffuse arterial calcified plaque. No aortic aneurysm. No enlarged lymph nodes. Spleen and adrenal glands are normal. Gallbladder is contracted. Diffuse hepatic low-density indicative of steatosis. No acute pancreatic findings. Mild diffuse pancreatic duct dilatation measuring 4 mm indeterminate etiology. Follow-up MRI imaging of the pancreas should be made on a clinical basis. Distal esophageal wall thickening indicative of esophagitis. Stomach, small bowel and appendix are normal. Large colonic stool volume. Bowel distention, bowel wall thickening or pneumatosis. No renal calculi or hydronephrosis. Bladder is normal. Prostate is nonenlarged. No acute soft tissue or bony findings. Multilevel thoracic and lumbar spine disc disease facet arthropathy. IMPRESSION: Impression: 1. No evidence of nephrolithiasis or renal obstruction. 2. Nonemergent findings as above. This document has been electronically signed by: Ericka Huerta 08/18/2024 06:39:47 Luz Parker MD IMG CT PROCEDURES Final Result * (ABNORMAL) Lipid panel with reflex to direct LDL (08/05/2024 7:00 AM EDT) Cholesterol 181 0 - 200 mg/dL LAB CHEMISTRY METHOD 08/05/2024 11:[address] [facility] Triglycerides 306(H) 0 - 150 mg/dL LAB CHEMISTRY METHOD 08/05/2024 11:[address] [facility] HDL 26(L) >=40 mg/dL LAB CHEMISTRY METHOD 08/05/2024 11:[address] [facility] LDL Calculated 94 0 - 100 mg/dL LAB CHEMISTRY METHOD 08/05/2024 11:[address] [facility] VLDL Cholesterol Hong 61.2 mg/dL LAB CHEMISTRY METHOD 08/05/2024 11:[address] [facility] Non HDL Chol. (LDL+VLDL) 155(H) <145 mg/dL LAB CHEMISTRY METHOD 08/05/2024 11:[address] [facility] Chol/HDL Ratio 7.0(H) 0.0 - 4.4 LAB CHEMISTRY METHOD 08/05/2024 11:[address] [facility] Blood Venous blood specimen / Unknown Venipuncture / Unknown 08/05/2024 7:00 AM EDT 08/05/2024 9:58 AM EDT Annie Barraza ELECTRIC SHOVEL OPERATOR LAB BLOOD ORDERABLES Final Re sult [facility] [address] [place] [address], [place] [phone] * XR Foot 3+ Views Left (08/01/2024 1:16 AM EDT) Anatomical Region Laterality Modality Lower Extremities, Foot Left Radiogra phic Imaging 08/01/2024 8:32 AM EDT Impressions 08/01/2024 8:32 AM EDT No acute findings. -------- FINAL REPORT -------- Dictated By: Bryant Peterson Dictated Date: 08/01/2024 08:32 ET Assigned Physician: Bryant Peterson Reviewed and Electronically Signed By: Bryant Peterson Signed Date: 08/01/2024 08:32 ET Workstation ID: [id number] Transcribed By: Self Edit Transcribed Date: 08/01/2024 08:32 ET Narrative 08/01/2024 8:32 AM EDT PROCEDURE: Radiographs of the left foot. HISTORY: pain. COMPARISON: None. FINDINGS: Bipartite medial sesamoid. Bones appear mildly demineralized. Normal alignment. No fracture. No suspicious bony lesion. Procedure Note Bryant Peterson MD - 08/01/2024 PROCEDURE: Radiographs of the left foot. HISTORY: pain. COMPARISON: None. FINDINGS: Bipartite medial sesamoid. Bones appear mildly demineralized. Normalalignment. No fracture. No suspicious bony lesion. IMPRESSION: No acute findings. -------- FINAL REPORT -------- Dictated By: Bryant Peterson Dictated Date: 08/01/2024 08:32 ET Assigned Physician: Bryant Peterson Reviewed and Electronically Signed By: Bryant Peterson Signed Date: 08/01/2024 08:32 ET Workstation ID: [id number] Transcribed By: Self Edit Transcribed Date: 08/01/2024 08:32 ET us Oral Echevarria MD IMG XR PROCEDURES Final Result from Last 3 Months Insurance [facility] MEDICARE Member Subscriber Plan / Payer (Ef fective 2024-Present) Name:CONWAY ANDREAS Relation to Subscriber:Self Name:Andreas Conway Payer ID:[id number] Group ID:[id number] Type:Not on file Address: [place] [address] [address] [id number] Care Teams Braider Setter Relationship Specialty Start Date End Date Yoel Parrish MD [address] [place] [phone] PCP - General Internal Medicine 01/27/24
--- OUTSIDE RECORDS SUMMARY | 2024-10-24 19:46 | XMS_ITS | Encounter Summary ---
Author Organization [employer] [facility] Address [address] [place] [address] Care Team Providers Care Vehicle Maintenance Technician Name Role Phone Yoel Parrish MD Primary Care Provider [phone] Encounter Details Date Type Department Care Team (Late st Contact Info) Description 08/05/2024 Lab Requisition [facility] - Main Lab [address] [facility] [place] [phone] Annie Barraza, [facility] [address] [place] [address] Other alf (current) drug therapy Social History Tobacco Use Types Packs/Day Years [...] for your loved ones. For example, child care center assistant director or elderly care for an older [...] hearing? Answer Date of Assessment Author No 08/01/2024 12:24 AM Halley Albarado RN * Are you blind or do you have serious difficulty seeing, even when wearing glasses? Answer Date of Assessment Author No 08/01/2024 12:24 AM Halley Albarado, MILA * Do you have serious difficulty walking or climbing stairs? Answer Date of Assessment Author No 08/01/2024 12:24 AM Halley Albarado, RN * Do you have serious difficulty dressing or bathing? Answer Date of Assessment Author No 08/01/2024 12:24 AM EDT Halley Rowan RN * Because of a physical, mental, or emotional condition, do you have serious difficulty doing errandsalone such as visiting the doctor? Answer Date of Assessment Author No 08/01/2024 12:24 AM EDT Halley Rowan RN documented as of this encounter Mental Status * Because of a physical, mental, or emotional condition, do you have serious difficulty concentrating, remembering, or making decisions? (5 years old or older) Answer Entry Date Author No 08/01/2024 12:24 AM EDT Halley Rowan RN documented in this encounter Plan of Treatment Not on file documented as of this encounter Procedures Procedure Name Priority Date/Time Associated Diagnosis Comments LIPID PANEL WITH REFLEX TO DIRECT LDL Routine 08/05/2024 7:00 AM EDT Other roasterman (current) drug therapy HEMOGLOBIN A1C Routine 08/05/2024 7:00 AM EDT Other alf (current) drug therapy documented in this encounter Results * (ABNORMAL) Hemoglobin A1c (08/05/2024 7:00 AM EDT) Hemoglobin A1C 8.4(H) <6.5 % LAB CHEMISTRY METHOD 08/05/2024 1:51 PM EDT [facility] Mean Bld Glu Estim. 194 mg/dL LAB CHEMISTRY METHOD 08/05/2024 1:51 PM EDT [facility] Blood Venous blood specimen / Unknown Venipuncture / Unknown 08/05/2024 7:00 AM EDT 08/05/2024 9:58 AM EDT Annie Barraza [facility] BLOOD ORDERABLES Final Re sult [facility] [address] [place] [address], * (ABNORMAL) Lipid panel with reflex to direct LDL (08/05/2024 7:00 AM EDT) Cholesterol 181 0 - 200 mg/dL LAB CHEMISTRY METHOD 08/05/2024 11:26 AM EDT [facility] Triglycerides 306(H) 0 - 150 mg/dL LAB CHEMISTRY METHOD 08/05/2024 11:26 AM EDT [facility] HDL 26(L) >=40 mg/dL LAB CHEMISTRY METHOD 08/05/2024 11:26 AM EDT [facility] LDL Calculated 94 0 - 100 mg/dL LAB CHEMISTRY METHOD 08/05/2024 11:26 AM T [facility] VLDL Cholesterol Hong 61.2 mg/dL LAB CHEMISTRY METHOD 08/05/2024 11:26 AM [facility] Non HDL Chol. (LDL+VLDL) 155(H) <145 mg/dL LAB CHEMISTRY METHOD 08/05/2024 11:26 AM [facility] Chol/HDL Ratio 7.0(H) 0.0 - 4.4 LAB CHEMISTRY METHOD 08/05/2024 11:26 AM [facility] Blood Venous blood specimen / Unknown Venipuncture / Unknown 08/05/2024 7:00 AM EDT 08/05/2024 9:58 AM EDT us Annie Barraza REFERRAL SPECIALIST LAB BLOOD ORDERABLES Final Re sult [facility] [address] [place] [address], documented in this encounter Visit Diagnoses Diagnosis Other roasterman (current) drug therapy documented in this encounter Care Teams Vehicle Maintenance Technician Relationship Specialty Start Date End Date Yoel Parrish [facility] [place] [phone] PCP - General Internal Medicine 01/27/24 documented as of this encounter
--- OUTSIDE RECORDS SUMMARY | 2024-10-24 19:46 | XMS_ITS | Encounter Summary ---
Author Organization [facility] Address [address] [place] [address] Care Team Providers Care Nutrition Director Name Role Phone Yoel Parrish MD Primary Care Provider [phone] Encounter Details Date Type Department Care Team (Late st Contact Info) Description 08/26/2024 Lab Requisition [facility] - Main Lab [address] [facility] [place] [phone] [phone] Other [facility] (current) drug therapy Social History Tobacco Use [...] care for your loved ones. For example, early childhood education worker or elderly care for an older adult? [...] of Assessment Author No 08/24/2024 3:28 PM Marcela Evans RN * Are you blind or do you have serious difficulty seeing, even when wearing glasses? Answer Date of Assessment Author No 08/24/2024 3:28 PM EDMarcela Almanzar RN * Do you have serious difficulty walking or climbing stairs? Answer Date of Assessment Author No 08/24/2024 3:28 PM Marcela Evans RN * Do you have serious difficulty [...] Procedure Name Priority Date/Time Associated Diagnosis Comments HEMOGLOBIN A1C Routine 08/26/2024 7:00 AM EDT Other terminologist (current) drug therapy documented in this encounter Results * (ABNORMAL) Hemoglobin A1c (08/26/2024 7:00 AM EDT) Hemoglobin A1C 8.5(H) <6.5 % LAB CHEMISTRY METHOD 08/26/2024 2:31 PM EDT [facility] Mean Bld Glu Estim. 197 mg/dL LAB CHEMISTRY METHOD 08/26/2024 2:31 PM EDT [facility] Blood Venous blood specimen / Unknown Venipuncture / Unknown 08/26/2024 7:00 AM EDT 08/26/2024 11:03 AM EDT us [facility]vi [facility] LAB BLOOD ORDERABLES Final Resul t [facility] [address] [place] [address], documented in this encounter Visit Diagnoses Diagnosis Other mcc (current) drug therapy documented in this encounter Care Teams Nutrition Director Relationship Specialty Start Date End Date Yoel Parrish MD [address] [place] [phone] PCP - General Internal Medicine 01/27/24 documented as of this encounter
--- OUTSIDE RECORDS SUMMARY | 2024-10-24 19:46 | XMS_ITS | Encounter Summary ---
Author Organization [facility] Address [address] [place] [address] Care Team Providers Care Professor Of Mechanical Engineering Name Role Phone Yoel Parrish MD Primary Care Provider [phone] [phone] Encounter Details Date Type Department Care Team (Late st Contact Info) Description 08/26/2024 Lab Requisition [facility] - Main Lab [address] [facility] [place] [phone] [address] Social History Tobacco Use Types Packs/Day Years [...] care for your loved ones. For example, childhood development teacher or elderly care for an older [...] on filedocumented in this encounter Care Teams Professor Of Mechanical Engineering Relationship Specialty Start Date End Date Yoel Parrish MD [address] [place] [phone] PCP - General Internal Medicine 01/27/24 documented as of this encounter
--- OUTSIDE RECORDS SUMMARY | 2024-10-24 19:46 | XMS_ITS ---
Author Organization [facility] Address [address] [place] [address] Phone Care Team Providers Care Distribution Engineer Name Role Phone Yoel Parrish MD Primary Care Provider [phone] [phone] [facility] - Food Insecurity Status:Ongoing (Active) Start date:04/11/2024 Enrollment date:04/11/2024 Enrollment reason:Walk-in Related social drivers of health:Food Risk Related program episode:Community Health Worker Program (Closed) Overview Community Health Worker Program - Food Insecurity Service Episode Case Team Name Relationship Phone Vu Chicas Community Health Worker(Respons ible Staff) Continued Care and Services Coordination
--- OUTSIDE RECORDS SUMMARY | 2024-10-24 19:46 | XMS_ITS | Encounter Summary ---
Author Organization [employer] [facility] Address [address] [place] [address] Care Team Providers Care Review Appraiser Name Role Phone Yoel Parrish MD Primary Care Provider [phone] [phone] Encounter Details Date Type Department Care Team (Late st Contact Info) Description 08/29/[address] [facility] - Main Lab [address] [facility] [place] [phone] [phone] Other [place] (current) drug therapy Social History Tobacco Use [...] for your loved ones. For example, children's author or elderly care for an older adult? [...] Procedure Name Priority Date/Time Associated Diagnosis Comments BASIC METABOLIC PANEL Routine 08/29/2024 7:00 AM EDT Other ocean transportation intermediary (current) drug therapy documented in this encounter Results * (ABNORMAL) Basic metabolic panel (08/29/2024 7:00 AM EDT) Sodium 138 133 - 145 mmol/L LAB CHEMISTRY METHOD 08/29/2024 11:26 AM [facility] Potassium 4.4 3.5 - 5.5 mmol/L LAB CHEMISTRY METHOD 08/29/2024 11:26 AM [facility] Chloride 104 96 - 110 mmol/L LAB CHEMISTRY METHOD 08/29/2024 11:26 AM [facility] CO2 28 21 - 32 mmol/L LAB CHEMISTRY METHOD 08/29/2024 11:26 AM [facility] Anion Gap 6 3 - 11 LAB CHEMISTRY METHOD 08/29/2024 11:26 AM [facility] Glucose 175(H) 70 - 100 mg/dL LAB CHEMISTRY METHOD 08/29/2024 11:26 AM [facility] BUN 19 5 - 25 mg/dL LAB CHEMISTRY METHOD 08/29/2024 11:26 AM [facility] Creatinine 1.06 0.70 - 1.30 mg/dL LAB CHEMISTRY METHOD 08/29/2024 11:26 AM EDT [facility] eGFR 81 >=60 mL/min/1. 73m2 LAB CHEMISTRY METHOD 08/29/2024 11:26 AM EDT [facility] Comment:Calculation based on the Chronic Kidney Disease Epidemiology Collaboration (CKD-EPI) equation refit without adjustment for race. BUN/Creatinine Ratio 17.9 LAB CHEMISTRY METHOD 08/29/2024 11:26 AM EDT [facility] Calcium 8.7 8.5 - 10.5 mg/dL LAB CHEMISTRY METHOD 08/29/2024 11:26 AM EDT [facility] Blood Venous blood specimen / Unknown Venipuncture / Unknown 08/29/2024 7:00 AM EDT 08/29/2024 10:10 AM EDT [facility] LAB BLOOD ORDERABLES Final Resul t [facility] [address] [place] [address], documented in this encounter Visit Diagnoses Diagnosis Other ocean transportation intermediary (current) drug therapy documented in this encounter Care Teams Review Appraiser Relationship Specialty Start Date End Date Yoel Parrish MD [address] [place] [phone] PCP - General Internal Medicine 01/27/24 documented as of this encounter
[2024-10-24 20:57] LABS: COVID-19 Test Negative (Negative); IDNOW Serial# 6674DD1D
[2024-10-24 21:54] VITALS: BP 171/80; PULSE 94; RESP 18; TEMP 36.7; O2SAT 97
== END 2024-10-24 22:02 | disposition home or self-care (01) ==
PROVIDERS: Physician Assistant Medical; Emergency Provider Emergency Medicine
DX: K59.00 Constipation, unspecified (principal); R11.2 Nausea with vomiting, unspecified; R10.2 Pelvic and perineal pain; Z03.818 Encounter for observation for suspected exposure to other biological agents ruled out; Z79.899 Other long term (current) drug therapy
CPT/HCPCS: 36415; 74018; 80053; 82947; 83735; 84484; 85025; 85610; 87635; 93005; 99283

== ENCOUNTER → 2024-10-24 17:38 | Outpatient (BNV) | payer OTHER, SELFPAY | PROVIDERS: Emergency Provider Emergency Medicine; Visit Provider Internal Medicine | DX: R10.9 Unspecified abdominal pain (principal) | CPT/HCPCS: 93010 ==

== ENCOUNTER → 2024-10-24 19:53 | Outpatient (BNV) | payer OTHER, SELFPAY | PROVIDERS: Emergency Provider Emergency Medicine; Visit Provider Radiology Neuroradiology | DX: K59.00 Constipation, unspecified (principal) | CPT/HCPCS: 74018 ==

== ENCOUNTER 2024-10-24 22:28 | Emergency (ER) | payer OTHER, SELFPAY ==
[2024-10-24 22:38] VITALS: BP 173/72; PULSE 89; RESP 16; TEMP 36.2; O2SAT 97; BMI 26.6
[2024-10-24 23:14] VITALS: BP 153/77; PULSE 82; RESP 17; TEMP 37.1; O2SAT 99
[2024-10-24 23:27] LABS: Cannabinoid Screen Urine Not Detected (Not Detect)
[2024-10-24 23:39] LABS: Acetaminophen LAB < 3 mcg/mL (<30); Salicylate < 5.0 mg/dL (15-30)
--- NOTE | 2024-10-25 00:03 | ED.PSYCH ---
HPI - Psych General Chief Complaint: Psychiatric Symptoms Stated Complaint: SI Time Seen by Provider: 10/24/24 23:43 Source: patient Mode of arrival: ambulatory Limitations: no limitations History of Present Illness ED Provider: Dr. Taylor Church HPI Narrative: Patient comes to the emergency room complaining of suicidal ideation. Patient was discharged less than 4 hours ago from the emergency room. Patient was seen here for abdominal pain, now his abdomen feels well and now he is suicidal. Patient admits to polysubstance abuse and being homeless. Denies HI Related Data Home Medications ?Medication ?Instructions ?Recorded ?Confirmed melatonin 10 mg tablet 10 mg PO BEDTIME 06/28/24 10/25/24 metformin 1,000 mg tablet 1,000 mg PO BID 06/28/24 10/25/24 albuterol sulfate 90 mcg/actuation 2 puff inhalation QID PRN wheezing 09/06/24 10/25/24 aerosol inhaler aspirin 81 mg tablet,delayed 81 mg PO DAILY 09/06/24 10/25/24 release atorvastatin 40 mg tablet 20 mg PO DAILY 09/06/24 10/25/24 docusate sodium 100 mg capsule 100 mg PO DAILY 09/06/24 10/25/24 gabapentin 300 mg capsule 300 mg PO TID PRN neuropathy 09/06/24 10/25/24 insulin glargine 100 unit/mL (3 20 unit subcut BEDTIME 09/06/24 10/25/24 mL) subcutaneous pen (Lantus Solostar U-100 Insulin) quetiapine 400 mg tablet 400 mg PO DAILY@1700 09/06/24 10/25/24 quetiapine 50 mg tablet 50 mg PO BID PRN AGITATION/RACING 09/06/24 10/25/24 THOUGHTS trazodone 50 mg tablet 50 mg PO BEDTIME PRN Sleep 09/06/24 10/25/24 hydroxyzine pamoate 50 mg capsule 50 mg PO BID PRN Anxiety 10/24/24 10/25/24 paroxetine HCl 20 mg tablet 40 mg PO DAILY 10/24/24 10/25/24 pantoprazole 40 mg tablet,delayed 40 mg PO DAILY 10/25/24 10/25/24 release Previous Rx's ?Medication ?Instructions ?Recorded insulin lispro 100 unit/mL See Protocol subcut QIDACHS 30 06/15/24 subcutaneous solution (Admelog days #10 mL U-100 Insulin lispro) sitagliptin phosphate 100 mg 100 mg PO DAILY 30 days #30 tabs 06/15/24 tablet (Januvia) dicyclomine 20 mg tablet 20 mg PO TID #10 tabs 09/14/24 polyethylene glycol 3350 17 See Rx Instructions .Route 10/24/24 gram/dose oral powder (Miralax) .COMPLEX #119 grams Allergies Allergy/AdvReac Type Severity Reaction Status Date / Time glipizide (GLIPIZIDE) Allergy Intermediate ITCHY Verified 10/24/24 22:43 Review of Systems Review of Systems: Constitutional : No Weight loss, No Fever, No Chills, No Night Sweats, No Fatigue, No Malaise ENT/Mouth : No Hearing loss, No Ear Pain, No Nasal Congestion, No Sinus Pain, No Hoarseness, No sore throat, No Rhinorrhea, No Swallowing Difficulty Eyes: No Eye Pain, No Swelling, No Redness, No Foreign Body, No Discharge, No Vision Changes Cardiovascular : No Chest Pain, No SOB, No Dyspnea on Exertion, No Orthopnea, No Edema, No Palpitations Respiratory : No Cough, No Sputum, No Wheezing, No Smoke Exposure, No Dyspnea Gastrointestinal : No Nausea, No Vomiting, No Diarrhea, No Constipation, No abdominal Pain, No Hematochezia, No Melena Genitourinary : no irregular bleeding, No Dysuria, No Urinary Frequency, No Hematuria, No Urinary Incontinence, No Urgency, No Flank Pain, No Urinary Flow Changes, No Hesitancy Musculoskeletal : No joint pain, No Myalgias, No Joint Swelling Skin : No Skin Lesions, No rash Neuro : No Weakness, No Numbness, No Paresthesias, No Loss of Consciousness, No Dizziness, No Headache Psych : Complaining of suicidal ideation, no HI, admits to being homeless Heme/Lymph: No Bruising, No Bleeding,No Lymphadenopathy Endocrine : No Polyuria, No Polydipsia, No Temperature Intolerance PMFSH Past Medical History Medical History Asthma Depression MDD (major depressive disorder), recurrent episode, moderate Cocaine use disorder Substance-induced psychotic disorder Anxiety Diabetes Surgical History History of facial surgery H/O knee surgery Social History Social History Household Members: None Housing: Homeless Do you presently have visiting nurse or other home services: No Unable to assess alcohol history related to: Refusing to respond Alcohol intake: current Alcohol intake frequency: a few times a month Alcohol type: beer Patient Tobacco Use Status: Current everyday Tobacco user Tobacco use type: Cigarette Cigarette Packs Per Day: 1 Cigarettes Per Day: 20.0 Years Smoked: 35 Smoked in Last 30 Days: Yes e-Cigarette/Vaping Use: Former Use Second Hand Smoke Exposure: No Use of substances other than those prescribed or required for medical reasons: No Substance Use Type: Crack/Cocaine Advance Directives: Yes Advance Directives on File: Yes Advance Directives Date on File: 10/23/21 Do you have a plan to hurt others: No Plan service: No Sexual orientation: Straight/Heterosexual Physical Exam Exam: Exam: Appearance: Alert. Oriented X3. No acute distress. Eyes: Pupils equal, round and reactive to light. ENT: Pharynx normal. Neck: Normal inspection. Neck supple. No lymph nodes noted. No crepitus CVS: Normal heart rate and rhythm. Pulses normal. Normal S1 and S2 Respiratory: No respiratory distress. Breath sounds normal. No Wheezing. No rales Abdomen: Soft and nontender. No rigidity. No distention. Skin: Skin warm and dry. Normal skin color. Normal skin turgor. Extremities: No lower extremity edema. No Lacerations. No Rash Neuro: Oriented X 3. No motor deficit. No sensory deficit. Moving all extremities. No slurred speech. CN 2 through 12 grossly intact Psych: calm, cooperative, normal affect Vital Signs: Vital Signs: Last Vital Signs Temp 97.8 F 10/26/24 08:11 Pulse 74 10/26/24 08:11 Resp 16 10/26/24 08:11 BP 114/69 10/26/24 08:11 Pulse Ox 98 10/26/24 08:11 O2 Del Method Room Air 10/26/24 08:11 BMI result Body Mass Index 26.6 Course Reevaluation(s) Reevaluation #1: I, Dr. Le have take over the care of this patient, I reviewed pertinent blood work and imaging, re-evaluated the patient when appropriate. Time: 07:00 Reevaluation #2: pt d/c to detox via lyft Time: 16:32 Medications Administered Generic Name Dose Route Start Last Admin Trade Name Conner PRN Reason Stop Dose Admin Aspirin 81 mg 10/26/24 09:00 10/26/24 08:15 Aspirin Enteric Coated 81 Mg Tablet. PO 81 mg DAILY NILE Administration Atorvastatin Calcium 20 mg 10/26/24 09:00 10/26/24 08:14 Atorvastatin Calcium 20 Mg Tablet PO 20 mg DAILY NILE Administration Dicyclomine HCl 20 mg 10/26/24 09:00 10/26/24 15:44 Dicyclomine Hcl 10 Mg Capsule PO 20 mg TID NILE Administration Docusate Sodium 100 mg 10/26/24 09:00 10/26/24 08:15 Docusate Sodium 100 Mg Capsule PO 100 mg DAILY NILE Administration Insulin Glargine 20 unit 10/26/24 07:15 10/26/24 07:21 Insulin Glargine,Hum.Rec.Anlog 100 Unit/Ml 10 Ml Vial SUBCUT Not Given BEDTIME [facility] Insulin Human Lispro 0 unit 10/26/24 07:30 10/26/24 12:34 Insulin Lispro 100 Unit/Ml 3 Ml Vial SUBCUT Not Given QIDACHS [facility] Protocol Metformin HCl 1,000 mg 10/26/24 09:00 10/26/24 08:14 Metformin Hcl 1,000 Mg Tablet PO 1,000 mg BID NILE Administration Omeprazole 20 mg 10/26/24 09:00 10/26/24 08:14 Omeprazole 20 Mg Capsule. PO 20 mg DAILY NILE Administration Paroxetine HCl 40 mg 10/26/24 09:00 10/26/24 08:14 Paroxetine Hcl 40 Mg Tablet PO 40 mg DAILY NILE Administration Sitagliptin Phosphate 100 mg 10/26/24 09:00 10/26/24 08:15 Sitagliptin Phosphate 100 Mg Tablet PO 100 mg DAILY NILE Administration Medical Decision Making Medical Decision Making [facility] Narrative: Lab work was done earlier today, unremarkable, she tox negative, ETOH negative Patient requesting more food When patient was seen here earlier today, patient denied being SI or HI. Differential Diagnosis Differential Diagnoses: The differential diagnosis associated with the presentation includes (Anxiety, depression, polysubstance abuse, malingering) Admission/Observation Consideration of admission/observation: Escalation of care including admission/observation considered (Patient is under physician observation waiting to be seen by the care team.) Lab Data [facility] Lab Attestation statement: I reviewed the patient's lab results. Labs: Lab Results 10/24/24 10/26/24 10/26/24 Range/Units 23:05 06:22 12:01 POC Glucose 160 H 148 H (60-115) mg/dL Salicylates < 5.0 L (15-30) mg/dL Urine Opiates Screen Not Detected (Not Detect) Ur Buprenorphine Scrn Not Detected (Not Detect) ng/mL Ur Oxycodone Screen Not Detected (Not Detect) ng/mL Urine Methadone Screen Not Detected (Not Detect) ng/mL Urine Fentanyl Screen Not Detected (Not Detect) Acetaminophen < 3 (<30) mcg/mL Ur Barbiturates Screen Not Detected (Not Detect) Ur Phencyclidine Scrn Not Detected (Not Detect) Ur Amphetamines Screen Not Detected (Not Detect) U Benzodiazepines Scrn Not Detected (Not Detect) Urine Cocaine Screen Not Detected (Not Detect) U Marijuana (THC) Screen Not Detected (Not Detect) Ethyl Alcohol < 10 mg/dL Critical Care Time Critical Care Time Critical Care Time: Yes Total Critical Care Time: 35 Attestation: I have personally provided critical care time. Time includes review of lab data, radiology results, discussion with consultants, and monitoring for potential decompensation. Intervention performed as documented. Discharge Plan Discharge Clinical Impression: Malingering, Suicidal ideation Patient Disposition: Home, Self-Care Additional Instructions: Lyft to detox Prescriptions: No Action insulin lispro [Admelog U-100 Insulin lispro] 100 unit/mL Solution See Protocol subcut QIDACHS 30 Days Qty: 10 0RF Protocol: Insulin Correction Scale Less than or equal to 110 ---- Give (units): 0 111 to 150 Give (units): 0 151 to 200 Give (units): 2 201 to 250 Give (units): 4 251 to 300 Give (units): 6 301 to 350 Give (units): 8 Greater than 350 Give (units): 10 Call MD if Blood Glucose > : 350 Januvia 100 mg tablet 100 mg PO DAILY 30 Days Qty: 30 0RF metformin 1,000 mg tablet 1,000 mg PO BID melatonin 10 mg tablet 10 mg PO BEDTIME aspirin 81 mg tablet,delayed release (DR/EC) 81 mg PO DAILY quetiapine 50 mg tablet 50 mg PO BID PRN (Reason: AGITATION/RACING THOUGHTS) quetiapine 400 mg tablet 400 mg PO DAILY@1700 insulin glargine [Lantus Solostar U-100 Insulin] 100 unit/mL (3 mL) insulin pen 20 unit subcut BEDTIME gabapentin 300 mg capsule 300 mg PO TID PRN (Reason: neuropathy) albuterol sulfate 90 mcg/actuation HFA aerosol inhaler 2 puff INHALATION QID PRN (Reason: wheezing) docusate sodium 100 mg Capsule 100 mg PO DAILY trazodone 50 mg tablet 50 mg PO BEDTIME PRN (Reason: Sleep) atorvastatin 40 mg tablet 20 mg PO DAILY dicyclomine 20 mg tablet 20 mg PO TID Qty: 10 0RF paroxetine HCl 20 mg Tablet 40 mg PO DAILY hydroxyzine pamoate 50 mg capsule 50 mg PO BID PRN (Reason: Anxiety) pantoprazole 40 mg tablet,delayed release (DR/EC) 40 mg PO DAILY polyethylene glycol 3350 [Miralax] 17 gram/dose powder See Rx Instructions .ROUTE .COMPLEX Qty: 119 0RF Rx Instructions: 17 g orally per instructions in your discharge paperwork. Interventions: [place]-Suicide Risk Severity Scale Last Done: 10/25/24 23:31 Print Language: Frisian
[2024-10-25 07:08] VITALS: BP 127/76; PULSE 78; RESP 20; TEMP 37.1; O2SAT 98
--- NOTE | 2024-10-25 08:30 | PC.NURSE ---
assumed care of patient at 0700, patient is currently resting quietly, resp even and unlabored. patient med rec completed by storm [facility]
--- NOTE | 2024-10-25 11:15 | PC.NURSE ---
provider notified that patients med rec completed
--- NOTE | 2024-10-25 17:11 | PC.NURSE ---
ED provider notified again that patient med rec completed at [id number]
--- NOTE | 2024-10-25 17:12 | PC.NURSE ---
new provider on in ED, messaged at 1607 that med rec was completed and needed to be continued for patient
--- NOTE | 2024-10-25 17:52 | MHC.CARE ---
Patient evaluated by the CARE Team, disposition ACCS. His information was sent to [facility] for review, if not accepted patient should be discharged. ED provider Dr. Church updated
[2024-10-25 18:32] VITALS: BP 140/73; PULSE 72; RESP 16; TEMP 36.4; O2SAT 99
--- NOTE | 2024-10-25 22:58 | PHA.MEDREC ---
Pharmacy Consult ? Medication Reconciliation Pharmacy has completed the medication reconciliation.
--- NOTE | 2024-10-26 00:52 | PC.NURSE ---
Pt appears to be sleeping, respirations even and unlabored, no apparent distress is noted. This RN attempted to contact provider to order home medications from [facility], no answer at this time
[2024-10-26 06:27] LABS: Glucose, Whole Blood 160 mg/dL (60-115)
[2024-10-26 06:34] VITALS: BP 111/75; PULSE 81; RESP 17; TEMP 36.7; O2SAT 99
--- NOTE | 2024-10-26 07:04 | PC.NURSE ---
Ed provider notified that patient med rec completed yesterday, awaiting patient med orders at this time
[2024-10-26 08:11] VITALS: BP 114/69; PULSE 74; RESP 16; TEMP 36.6; O2SAT 98
[2024-10-26] MEDS: PARoxetine HCL 40 MG TABLET PO (08:14)
[2024-10-26] MEDS: Aspirin Enteric Coated 81 MG TABLET.DR PO (08:15)
[2024-10-26 12:05] LABS: Glucose, Whole Blood 148 mg/dL (60-115)
== END 2024-10-26 18:05 | disposition home or self-care (01) ==
PROVIDERS: Emergency Medicine; Emergency Provider Emergency Medicine
DX: F33.1 Major depressive disorder, recurrent, moderate (principal); F14.10 Cocaine abuse, uncomplicated; R45.851 Suicidal ideations; E11.9 Type 2 diabetes mellitus without complications; Z79.4 Long term (current) use of insulin; Z51.81 Encounter for therapeutic drug level monitoring; Z79.899 Other long term (current) drug therapy; F17.210 Nicotine dependence, cigarettes, uncomplicated
CPT/HCPCS: 36415; 80143; 80179; 80307; 82947; 99285; S9485

== ENCOUNTER 2024-11-02 17:12 | Emergency (ER) | payer OTHER, SELFPAY ==
--- OUTSIDE RECORDS SUMMARY | 2024-10-31 18:21 | XMS_ITS | Encounter Summary ---
Author Organization [employer] Address [address] [place] [address] Care Team Providers Care Commercial Lines Underwriter Name Role Phone Yoel Parrish MD Primary Care Provider [phone] Reason for Visit * Reason Comments Anxiety Family problem Encounter Details Date Type Department Care Team (Late st Contact Info) Description 10/31/2024 6:21 PM EDT - 10/31/2024 9:17 PM EDT Emergency [facility] Emergency [address] [place] [address] Anxiety (Primary Dx); Stressful life events affecting family and household Discharge Disposition: Home or Self Care Social [...] your loved ones. For example, child care giver or elderly care for an older adult? [...] Sign Reading Time Taken Comments Blood Pressure 137/76 10/31/2024 6:14 PM EDT Pulse 96 10/31/2024 6:14 PM EDT Temperature 36.3 C (97.4 F) 10/31/2024 6:14 PM EDT Respiratory Rate 20 10/31/2024 6:14 PM EDT Oxygen Saturation 98% 10/31/2024 6:14 PM EDT Inhaled Oxygen Concentration - - Weight 77.6 kg (171 lb) 10/31/2024 6:14 PM EDT Height 167.6 cm (5' 6 ) 10/31/2024 6:14 PM EDT Body Mass Index 27.6 10/31/2024 6:14 PM EDT documented in this encounter Functional Status * Are you deaf or do you have serious difficulty hearing? Answer Date of Assessment Author No 10/31/2024 6:38 PM EDT La Waite RN * Are you blind or do you have serious difficulty seeing, even when wearing glasses? Answer Date of Assessment Author No 10/31/2024 6:38 PM EDT La Waite RN * Do you have serious difficulty walking or climbing stairs? Answer Date of Assessment Author No 10/31/2024 6:38 PM EDT La Waite RN * Do you have serious difficulty dressing or bathing? Answer Date of Assessment Author No 10/31/2024 6:38 PM EDT La Waite RN * Because of a physical, mental, or emotional condition, do you have serious difficulty doing errandsalone such as visiting the doctor? Answer Date of Assessment Author No 10/31/2024 6:38 PM EDT La Waite RN documented as of this encounter Mental Status * Because of a physical, mental, or emotional condition, do you have serious difficulty concentrating, remembering, or making decisions? (5 years old or older) Answer Entry Date Author No 10/31/2024 6:38 PM EDT La Waite RN documented in this encounter Discharge Instructions * Discharge Instructions* ABHINAV [facility] - 10/31/2024 8:47 PM EDT Your evaluated for anxiety. Please utilize deep breathing, Atarax for anxiety symptoms at home. Return to the emergency department high fevers, new worsening or concerning symptoms. * Attachments The following attachments cannot be sent through Care Everywhere. * Anxiety: How to Change Anxious Thoughts: Video (Scottish) documented in this encounter Medications at Time [...] (40 mg total) by mouth daily. 03/21/2024 docusate sodium (COLACE) 100 mg capsule Take 1 capsule (100 mg total) by mouth every 12 (twelve) hours. 60 capsule 10/24/2024 11/23/2024 gabapentin (NEURONTIN) 300 mg capsule Take 1 capsule (300 mg total) by mouth 2 (two) times a day. 10/27/2023 hydrOXYzine HCL (ATARAX) 25 mg tabletIndications :Anxiety Take 1 tablet (25 mg total) by mouth every 6 (six) hours for 3 days. 12 tablet 10/31/2024 11/03/2024 hydrOXYzine pamoate (VISTARIL) 50 mg capsule Take [...] times a day. 60 each 10/24/2024 11/23/2024 melatonin 10 mg tablet Take 1 tablet [...] mg total) by mouth at bedtime. 09/27/2024 nicotine polacrilex (NICORETTE) [address] [...] time each day in the morning. 07/27/2024 QUEtiapine (SEROquel) 400 mg tablet Take 1 tablet (400 mg total) by mouth at bedtime. 07/27/2024 QUEtiapine 150 mg tablet Take 150 mg by mouth 1 (one) time each day. 07/27/2024 SITagliptin phosphate (JANUVIA) 100 mg tablet Take 1 tablet (100 mg total) by mouth 1 (one) time each day. traZODone (DESYREL) 50 mg tablet Take by mouth at bedtime as needed. 04/04/2024 mupirocin (BACTROBAN) 2 % ointment Apply in each nostril daily 30 g 10/24/2024 10/31/2024 documented as of this encounter Ordered Prescriptions Prescription Sig Dispense Quantity Refills Last Filled Start Date End Date hydrOXYzine HCL (ATARAX) 25 mg tabletIndications: Anxiety Take 1 tablet (25 mg total) by mouth every 6 (six) hours for 3 days. 12 tablet 10/31/2024 11/03/2024 documented in this encounter Discharge Disposition Disposition Code Departure Means Destination Comment s Home or Self Care documented in this encounter Progress Notes * Kena Waite RN - 10/31/2024 6:46 PM EDT Patient reports to this nurse he is feeling anxious, because his got locked up today. States, because I deals with anxiety the PD suggested I come here to be watched over. Denies SI/HI- Pt asked if he has ever had a plan or done anything to end his life- states It's been a long time since I've done anything- maybe a year. Kena Waite RN 10/31/24 [id number] * Perla Jernigan RN - 10/31/2024 6:14 PM EDT Pt c/o anxiety depression. Pt denies si/hi. [facility] times in the last few weeks for similar symptoms. * ABHINAV North - 10/31/2024 6:12 PM EDT HPI Chief Complaint Patient presents with Anxiety Family problem Patient 59-year-old male with past medical history of bipolar disorder hypertension diabetes presenting to the emergency department with anxiety due to being arrested. Patient denies suicidal ideation homicidal ideation denies toxic ingestion. Sober from drugs for 9 months. 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: Patient layer out used: No [place] Coma Scale Score: 15 Patient History Past Medical History: Diagnosis Date Arthritis Bipolar 2 disorder ([facility] V24, [facility] V28) Depression Diabetes mellitus ([facility] V24, [facility] V28) Hypertension History reviewed. No pertinent surgical history. No family history on file. Social History Tobacco Use Smoking status: Every Day Types: Cigarettes Smokeless tobacco: Never Substance Use Topics Alcohol use: Yes Drug use: Never Review of Systems Review of Systems All other systems reviewed and are negative. Physical Exam ED Triage Vitals [10/31/24 181] Temp Heart Rate Resp BP 36.3 ??C (97.4 ??F) 96 20 137/76 SpO2 Temp Source Heart Rate Source Patient Position 98 % Tympanic -- Sitting BP Location FiO2 (%) Left arm -- Physical Exam Vitals and nursing note reviewed. Constitutional: Appearance: Normal appearance. HENT: Head: Normocephalic and atraumatic. Cardiovascular: Rate and Rhythm: Normal rate and regular rhythm. Pulses: Normal pulses. Heart sounds: Normal heart sounds. Pulmonary: Effort: Pulmonary effort is normal. Breath sounds: Normal breath sounds. Abdominal: Tenderness: There is no abdominal tenderness. There is no right CVA tenderness, left CVA tenderness, guarding or rebound. Musculoskeletal: General: Normal range of motion. Cervical back: Normal range of motion and neck supple. Skin: General: Skin is warm and dry. Capillary Refill: Capillary refill takes less than 2 seconds. Neurological: General: No focal deficit present. Mental Status: He is alert and oriented to person, place, and time. ED Course & MDM ED Course as of 10/31/242056Oct 31, 20242021 Methadone, urine neg [AW] 2021 Buprenorphine screen, urine neg [AW] 2021 Drug abuse screen 8a panel, urine neg [AW] 2021 Phencyclidine, urine neg [AW] 2021 CBC and differential(!) No clinically significant abnormality. No leukocytosis leukopenia acute anemia platelet abnormality. [AW] 2042 Salicylate level(!) negative [AW] 2042 Ethanol negative [AW] 2043 Comprehensive metabolic panel(!) No metabolic derangement, no acidemia, no evidence of hepatic or renal injury Mild hyperglycemia no acidemia. [AW] 2044 Patient reevaluated, still with some anxiety after Ativan. Patient has no suicidal ideation homicidal ideation. He is appropriate for outpatient management. Will be discharged with Atarax [AW] 2054 Acetaminophen level(!) negative [AW] ED Course User Index [AW] ABHINAV [facility] Clinical Impressions as of 10/31/242056 Anxiety Stressful life events affecting family and household Medical Decision Making Differential diagnosis includes anxiety depression, psychosis ingestion Co. ingestion alcohol withdrawal alcohol intoxication. Patient well-appearing hemodynamically stable adamantly convincingly denies suicidal ideation homicidal ideation received Ativan in department. Rule out emergent medical condition. Patient has no evidence of alcohol withdrawal alcohol intoxication. He is hemodynamically stable and well-appearing. Although patient does have increased life stressor, he is stable for outpatient management. Will prescribe antihistamine for anxiety at home. Procedures ABHINAV North 10/31/242056 Cosigned by Freddy He MD at 10/31/2024 10:46 PM EDT documented in this encounter Plan of Treatment Scheduled Orders Name Type Priority Associated Diagnoses Orde r Schedule ECG 12 lead ECG STAT Once for 1 Oc currences starting 10/31/2024 until 10/31/2024 documented as of this encounter Procedures Procedure Name Priority Date/Time Associated Diagnosis Comments CBC WITH AUTO DIFFERENTIAL STAT 10/31/2024 7:24 PM EDT CBC AND DIFFERENTIAL STAT 10/31/2024 7:24 PM EDT ETHANOL STAT 10/31/2024 7:24 PM EDT ACETAMINOPHEN LEVEL STAT 10/31/2024 7 :24 PM EDT SALICYLATE LEVEL STAT 10/31/2024 7:24 PM EDT COMPREHENSIVE METABOLIC PANEL STAT 10/31/2024 7:24 PM EDT DRUG ABUSE SCREEN 8A PANEL, URINE STAT 10/31/2024 6:57 PM EDT BUPRENORPHINE SCREEN, URINE STAT 10/31/2024 6:57 PM EDT METHADONE SCREEN, URINE STAT 10/31/2024 6:57 PM EDT PHENCYCLIDINE, URINE STAT 10/31/2024 6:57 PM EDT documented in this encounter Results * (ABNORMAL) CBC auto differential (10/31/2024 7:24 PM EDT) [facility] WBC 9.1 4.8 - 10.8 K/mcL LAB HEMETOLOGY METHOD 10/31/2024 8:19 PM EDT [facility] RBC 4.30(L) 4.50 - 5.50 M/mcL LAB HEMETOLOGY METHOD 10/31/2024 8:19 PM EDT [facility] Hemoglobin 11.4(L) 13.5 - 17.5 g/dL LAB HEMETOLOGY METHOD 10/31/2024 8:19 PM EDT [facility] Hematocrit 36.4(L) 42.0 - 54.0 % LAB HEMETOLOGY METHOD 10/31/2024 8:19 PM EDT [facility] MCV 84.7 79.0 - 98.0 FL LAB HEMETOLOGY METHOD 10/31/2024 8:19 PM EDT [facility] MCH 26.5(L) 27.0 - 32.0 pcg LAB HEMETOLOGY METHOD 10/31/2024 8:19 PM EDT [facility] MCHC 31.3(L) 32.0 - 37.0 g/dL LAB HEMETOLOGY [facility] RDW 13.9 11.0 - 15.0 % LAB HEMETOLOGY METHOD 10/31/2024 8[facility] Platelets 276 130 - 400 K/mcL LAB HEMETOLOGY METHOD 10/31/2024 8:19 PM EDT [facility] MPV 10.4 7.0 - 11.0 FL LAB HEMETOLOGY METHOD 10/31/2024 8:[facility] NRBC 0.0 <1.0 % LAB HEMETOLOGY METHOD 10/31/2024 8:[facility] NRBC Absolute 0.00 <0.10 K/mcL LAB HEMETOLOGY METHOD 10/31/2024 8:[facility] Neutrophils Relative 64.9 % LAB HEMETOLOGY METHOD 10/31/2024 8:[facility] Lymphocytes Relative 21.6 % LAB HEMETOLOGY METHOD 10/31/2024 8:[address] [facility] Monocytes Relative 11.3 % LAB HEMETOLOGY METHOD 10/31/2024 8:[facility] Eosinophils Relative 1.2 % LAB HEMETOLOGY METHOD 10/31/2024 8:[facility] Basophils Relative 0.6 % LAB HEMETOLOGY METHOD 10/31/2024 8:[facility] Immature Granulocytes Relative 0.4 % LAB HEMETOLOGY METHOD 10/31/2024 8:[facility] Neutrophils Absolute 5.88 1.50 - 7.00 K/mcL LAB HEMETOLOGY METHOD 10/31/2024 8:19 PM EDT [facility] Lymphocytes Absolute 1.96 1.00 - 5.00 K/[facility] LAB HEMETOLOGY METHOD 10/31/2024 8:19 PM EDT [facility] Monocytes Absolute 1.02(H) 0.20 - 1.00 K/[facility] LAB HEMETOLOGY METHOD 10/31/2024 8:19 PM EDT [facility] Eosinophils Absolute 0.11 0.00 - 0.50 K/[facility] LAB HEMETOLOGY METHOD 10/31/2024 8:19 PM EDT [facility] Basophils Absolute 0.05 0.00 - 0.20 K/[facility] LAB HEMETOLOGY METHOD 10/31/2024 8:19 PM EDT [facility] Immature Granulocytes Absolute 0.04(H) 0.00 - 0.03 K/[facility] LAB HEMETOLOGY METHOD 10/31/2024 8:19 PM EDT [facility] Blood Venous blood specimen / Unknown Venipuncture / Unknown 10/31/2024 7:24 PM EDT 10/31/2024 8:11 PM EDT us Freddy He MD LAB BLOOD ORDERABLES Final Resul t [facility] [address] [place] [address], * (ABNORMAL) Salicylate level (10/31/2024 7:24 PM EDT) Salicylate Level <1.7(L) 2.0 - 29.0 mg/dL LAB CHEMISTRY METHOD 10/31/2024 8:42 PM EDT [facility] Blood Venous blood specimen / Unknown Venipuncture / Unknown 10/31/2024 7:24 PM EDT 10/31/2024 8:11 PM EDT us Freddy He MD LAB BLOOD ORDERABLES Final Resul t Performing Organization Address [facility] de Phone Number [facility] [address] [place] [address], [place] [phone] * (ABNORMAL) Acetaminophen level (10/31/2024 7:24 PM EDT) Acetaminophen Level <2.0(L) 10.0 - 30.0 mcg/mL LAB CHEMISTRY METHOD 10/31/2024 8:52 PM EDT [facility] Blood Venous blood specimen / Unknown Venipuncture / Unknown 10/31/2024 7:24 PM EDT 10/31/2024 8:11 PM EDT us Freddy He MD LAB BLOOD ORDERABLES Final Resul t Performing Organization Address [facility] de Phone Number [facility] [address] [place] [address], [place] [phone] * Ethanol (10/31/2024 7:24 PM EDT) Ethanol Level <3 0 - 10 mg/dL LAB CHEMISTRY METHOD 10/31/2024 8:42 PM EDT [facility] Blood Venous blood specimen / Unknown Venipuncture / Unknown 10/31/2024 7:24 PM EDT 10/31/2024 8:11 PM EDT us Freddy He MD LAB BLOOD ORDERABLES Final Resul t Performing Organization Address [facility] Co de Phone Number [facility] [address] [place] [address], [place] [phone] * (ABNORMAL) Comprehensive metabolic panel (10/31/2024 7:24 PM EDT) Sodium 137 133 - 145 mmol/L LAB CHEMISTRY METHOD 10/31/2024 8:43 PM EDT [facility] Potassium 4.2 3.5 - 5.5 mmol/L LAB CHEMISTRY METHOD 10/31/2024 8:[address] [facility] Chloride 103 96 - 110 mmol/L LAB CHEMISTRY METHOD 10/31/2024 8:[address] [facility] CO2 30 21 - 32 mmol/L LAB CHEMISTRY METHOD 10/31/2024 8:[address] [facility] Anion Gap 4 3 - 11 LAB CHEMISTRY METHOD 10/31/2024 8:[address] [facility] Glucose 220(H) 70 - 100 mg/dL LAB CHEMISTRY METHOD 10/31/2024 8:[address] [facility] BUN 17 5 - 25 mg/dL LAB CHEMISTRY METHOD 10/31/2024 8:[address] [facility] Creatinine 1.10 0.70 - 1.30 mg/dL LAB CHEMISTRY METHOD 10/31/2024 8:[address] [facility] eGFR 78 >=60 mL/min/1. 73m2 LAB CHEMISTRY METHOD 10/31/2024 8:[address] [facility] Comment:Calculation based on the Chronic Kidney Disease Epidemiology Collaboration (CKD-EPI) equation refit without adjustment for race. BUN/Creatinine Ratio 15.5 LAB CHEMISTRY METHOD 10/31/2024 8:[address] [facility] Calcium 9.2 8.5 - 10.5 mg/dL LAB CHEMISTRY METHOD 10/31/2024 8:[address] [facility] AST (SGOT) 24 10 - 42 unit/L LAB CHEMISTRY METHOD 10/31/2024 8:[address] [facility] ALT (SGPT) 26 10 - 60 unit/L LAB CHEMISTRY METHOD 10/31/2024 8:[address] [facility] Alkaline Phosphatase 89 42 - 121 unit/L LAB CHEMISTRY METHOD 10/31/2024 8:[address] [facility] Total Protein 7.3 6.0 - 8.0 g/dL LAB CHEMISTRY METHOD 10/31/2024 8:43 PM EDT [facility] Albumin 3.8 3.2 - 5.0 g/dL LAB CHEMISTRY METHOD 10/31/2024 8:43 PM EDT [facility] Total Bilirubin 0.3 0.0 - 1.4 mg/dL LAB CHEMISTRY METHOD 10/31/2024 8:43 PM EDT [facility] Blood Venous blood specimen / Unknown Venipuncture / Unknown 10/31/2024 7:24 PM EDT 10/31/2024 8:11 PM EDT us Freddy He MD LAB BLOOD ORDERABLES Final Resul t Performing Organization Address [facility] Co de Phone Number [facility] [address] [place] [address], [place] [phone] * Methadone, urine (10/31/2024 6:57 PM EDT) Methadone Screen, Urine Negative Negative LAB CHEMISTRY METHOD 10/31/2024 8:09 PM EDT [facility] Comment: Assay cutoff 300 ng/mL Semi-quantitative assay for screening purposes only. Unconfirmed screening result should not be used for non-medical purposes. *ALTERNATE METHOD CONFIRMATION DONE UPON REQUEST ONLY* Urine Urine specimen obtained by clean catch procedure / Unknown Non-blood Collection / Unknown 10/31/2024 6:57 PM EDT 10/31/2024 7:43 PM EDT us Freddy He MD LAB URINE ORDERABLES Final Resul t Performing Organization Address City/[facility]/ZIP Co de Phone Number [facility] [address] [place] [address], [place] [phone] * Phencyclidine, urine (10/31/2024 6:57 PM EDT) PCP Scrn, Ur Negative Negative LAB CHEMISTRY METHOD 10/31/2024 8:09 PM EDT [facility] Comment: Assay cutoff 25 ng/mL Semi-quantitative assay for screening purposes only. Unconfirmed screening result should not be used for non-medical purposes. *ALTERNATE METHOD CONFIRMATION DONE UPON REQUEST ONLY* Urine Urine specimen obtained by clean catch procedure / Unknown Non-blood Collection / Unknown 10/31/2024 6:57 PM EDT 10/31/2024 7:43 PM EDT us Freddy He MD LAB URINE ORDERABLES Final Resul t Performing Organization Address [facility]/ZIP Co de Phone Number [facility] [address] [place] [address], [place] [phone] * Buprenorphine screen, urine (10/31/2024 6:57 PM EDT) Buprenorphine Screen Urine Negative Negative LAB CHEMISTRY METHOD 10/31/2024 8:09 PM EDT [facility] Urine Urine specimen obtained by clean catch procedure / Unknown Non-blood Collection / Unknown 10/31/2024 6:57 PM EDT 10/31/2024 7:43 PM EDT Narrative [facility] - 10/31/2024 8:09 PM EDT Assay cutoff 5 ng/mL Semi-quantitative assay for screening purposes only. Unconfirmed screening result should not be used for non-medical purposes. *ALTERNATE METHOD CONFIRMATION DONE UPON REQUEST ONLY* us Freddy He MD LAB URINE ORDERABLES Final Resul t Performing Organization Address [facility]/ZIP Co de Phone Number [facility] [address] [place] [address], [place] [phone] * Drug abuse screen 8a panel, urine (10/31/2024 6:57 PM EDT) Amphetamine Screen, Ur Negative Negative LAB CHEMISTRY METHOD 10/31/2024 8:09 PM EDT [facility] Comment:Certain OTC medicati ons containing ephedrine, phenylephrine, pseudoephedrine and phenylpropanolamine can cause false positive results. Barbiturate Screen, Ur Negative Negative LAB CHEMISTRY METHOD 10/31/2024 8:09 PM EDT [facility] Benzodiazepine Screen, Ur Negative Negative LAB CHEMISTRY METHOD 10/31/2024 8:09 PM EDT [facility] Cocaine Screen, Ur Negative Negative LAB CHEMISTRY METHOD 10/31/2024 8:09 PM EDT [facility] Opiate Screen, Ur Negative Negative LAB CHEMISTRY METHOD 10/31/2024 8:09 PM EDT [facility] Cannabinoid (THC) Screen, Ur Negative Negative LAB CHEMISTRY METHOD 10/31/2024 8:09 PM EDT [facility] Comment:Specimens from patie nts taking pantoprazole sodium (Protonix) have been shown to produce false positive results. Oxycodone Screen, Ur Negative Negative LAB CHEMISTRY METHOD 10/31/2024 8:09 PM EDT [facility] Fentanyl, Ur Negative Negative LAB CHEMISTRY METHOD 10/31/2024 8:09 PM EDT [facility] Urine Urine specimen obtained by clean catch procedure / Unknown Non-blood Collection / Unknown 10/31/2024 6:57 PM EDT 10/31/2024 7:43 PM EDT Narrative [facility] - 10/31/2024 8:09 PM EDT Assay cutoffs: Amphetamines 1000 ng/mL Barbiturates 200 ng/mL Benzodiazepines 200 ng/mL Cocaine 300 ng/mL Fentanyl 1 ng/mL Opiates 300 ng/mL Oxycodone 100 ng/mL THC 50 ng/mL Semi-quantitative assay for screening purposes only. Unconfirmed screening result should not be used for non-medical purposes. *ALTERNATE METHOD CONFIRMATION DONE UPON REQUEST ONLY* Freddy He MD LAB URINE ORDERABLES Final Resul t [facility] [address] [place] [address], documented in this encounter Visit Diagnoses Diagnosis Anxiety- Primary Anxiety state, unspecified Stressful life events affecting family and household documented in this encounter Administered Medications Inactive Administered Medications - up to 3 most recent administrations Medication Order MAR Action Action Date Dose Rate Site LORazepam (ATIVAN) tablet 1 mg 1 mg, oral, Once, On Thu10/31/24 at 1903, For 1 dose Given 10/31/2024 7:18 PM EDT 1 mg documented in this encounter Active and Recently Administered Medications Times are shown in EDT. Scheduled Medication Order 10/29/2024 10/30/2024 10/31/2024 LORazepam (ATIVAN) tablet 1 mg (COMPLETED) 1 mg, oral, Once, On Thu10/31/24 at 1903, For 1 dose 1917 (Given - Provid er: Shelby Roman RN) documented in this encounter Orders Medications Ordered That Ti ht Not Have Been Administered Count Last Ordered Date First Ordered Date LORazepam (ATIVAN) tablet 1 mg 1 10/31/2024 documented in this encounter Care Teams Commercial Lines Underwriter Relationship Specialty Start Date End Date Yoel Parrish MD [address] [place] [address] [id number] PCP - General Internal Medicine 01/27/24 documented as of this encounter
--- NOTE | 2024-11-02 17:24 | ED.GENADULT ---
HPI - General Adult General Chief complaint: Psychiatric Symptoms Stated complaint: difficulty breathing, anxiety/depression Time Seen by Provider: 11/02/24 21:01 Source: patient Mode of arrival: ambulatory Limitations: no limitations History of Present Illness ED Provider: Dr. Taylor Church HPI narrative: Patient comes to the emergency room complaining of depression anxiety, auditory hallucinations. Patient states that he is very stressed out, states that today his got arrested. Denies SI or HI. Patient admits that he has not taking his psych meds in over 2 days. Related Data Home Medications ?Medication ?Instructions ?Recorded ?Confirmed melatonin 10 mg tablet 10 mg PO BEDTIME 06/28/24 11/03/24 metformin 1,000 mg tablet 1,000 mg PO BID 06/28/24 11/03/24 albuterol sulfate 90 mcg/actuation 2 puff inhalation QID PRN wheezing 09/06/24 11/03/24 aerosol inhaler aspirin 81 mg tablet,delayed 81 mg PO DAILY 09/06/24 11/03/24 release atorvastatin 40 mg tablet 20 mg PO DAILY 09/06/24 11/03/24 docusate sodium 100 mg capsule 100 mg PO DAILY 09/06/24 11/03/24 gabapentin 300 mg capsule 300 mg PO TID PRN neuropathy 09/06/24 11/03/24 insulin glargine 100 unit/mL (3 20 unit subcut BEDTIME 09/06/24 11/03/24 mL) subcutaneous pen (Lantus Solostar U-100 Insulin) quetiapine 400 mg tablet 400 mg PO DAILY@1700 09/06/24 11/03/24 quetiapine 50 mg tablet 50 mg PO BID PRN AGITATION/RACING 09/06/24 11/03/24 THOUGHTS trazodone 50 mg tablet 50 mg PO BEDTIME PRN Sleep 09/06/24 11/03/24 hydroxyzine pamoate 50 mg capsule 50 mg PO BID PRN Anxiety 10/24/24 11/03/24 paroxetine HCl 20 mg tablet 40 mg PO DAILY 10/24/24 11/03/24 pantoprazole 40 mg tablet,delayed 40 mg PO DAILY 10/25/24 11/03/24 release Previous Rx's ?Medication ?Instructions ?Recorded insulin lispro 100 unit/mL See Protocol subcut QIDACHS 30 06/15/24 subcutaneous solution (Admelog days #10 mL U-100 Insulin lispro) sitagliptin phosphate 100 mg 100 mg PO DAILY 30 days #30 tabs 06/15/24 tablet (Januvia) dicyclomine 20 mg tablet 20 mg PO TID #10 tabs 09/14/24 polyethylene glycol 3350 17 See Rx Instructions .Route 10/24/24 gram/dose oral powder (Miralax) .COMPLEX #119 grams Allergies Allergy/AdvReac Type Severity Reaction Status Date / Time glipizide (GLIPIZIDE) Allergy Intermediate ITCHY Verified 11/02/24 17:27 oxycodone Allergy Hives Verified 11/02/24 17:27 Review of Systems Review of Systems: Constitutional : No Weight loss, No Fever, No Chills, No Night Sweats, No Fatigue, No Malaise ENT/Mouth : No Hearing loss, No Ear Pain, No Nasal Congestion, No Sinus Pain, No Hoarseness, No sore throat, No Rhinorrhea, No Swallowing Difficulty Eyes: No Eye Pain, No Swelling, No Redness, No Foreign Body, No Discharge, No Vision Changes Cardiovascular : No Chest Pain, No SOB, No Dyspnea on Exertion, No Orthopnea, No Edema, No Palpitations Respiratory : No Cough, No Sputum, No Wheezing, No Smoke Exposure, No Dyspnea Gastrointestinal : No Nausea, No Vomiting, No Diarrhea, No Constipation, No abdominal Pain, No Hematochezia, No Melena Genitourinary : no irregular bleeding, No Dysuria, No Urinary Frequency, No Hematuria, No Urinary Incontinence, No Urgency, No Flank Pain, No Urinary Flow Changes, No Hesitancy Musculoskeletal : No joint pain, No Myalgias, No Joint Swelling Skin : No Skin Lesions, No rash Neuro : No Weakness, No Numbness, No Paresthesias, No Loss of Consciousness, No Dizziness, No Headache Psych : Complaining of anxiety, depression, auditory hallucinations, denies SI or HI Heme/Lymph: No Bruising, No Bleeding,No Lymphadenopathy Endocrine : No Polyuria, No Polydipsia, No Temperature Intolerance PMFSH Past Medical History Medical History Asthma Depression MDD (major depressive disorder), recurrent episode, moderate Cocaine use disorder Substance-induced psychotic disorder Anxiety Diabetes Surgical History History of facial surgery H/O knee surgery Social History Social History Household Members: None Housing: Homeless Do you presently have visiting nurse or other home services: No Unable to assess alcohol history related to: Refusing to respond Alcohol intake: current Alcohol intake frequency: a few times a month Alcohol type: beer Patient Tobacco Use Status: Current everyday Tobacco user Tobacco use type: Cigarette Cigarette Packs Per Day: 1 Cigarettes Per Day: 20.0 Years Smoked: 35 e-Cigarette/Vaping Use: Former Use Second Hand Smoke Exposure: No Substance Use Type: Crack/Cocaine Advance Directives: Yes Advance Directives on File: Yes Advance Directives Date on File: 10/23/21 service: No Sexual orientation: Straight/Heterosexual Physical Exam ED Exam Exam: Appearance: Alert. Oriented X3. No acute distress. Eyes: Pupils equal, round and reactive to light. ENT: Pharynx normal. Neck: Normal inspection. Neck supple. No lymph nodes noted. No crepitus CVS: Normal heart rate and rhythm. Pulses normal. Normal S1 and S2 Respiratory: No respiratory distress. Breath sounds normal. No Wheezing. No rales Abdomen: Soft and nontender. No rigidity. No distention. Skin: Skin warm and dry. Normal skin color. Normal skin turgor. Extremities: No lower extremity edema. No Lacerations. No Rash Neuro: Oriented X 3. No motor deficit. No sensory deficit. Moving all extremities. No slurred speech. CN 2 through 12 grossly intact Psych: calm, cooperative, normal affect Vital Signs: Vital Signs - 24 hr 11/02/24 17:25 11/03/24 06:15 Temperature 97.8 F Pulse Rate 100 Respiratory Rate 18 16 Blood Pressure 145/65 H Pulse Oximetry 98 Oxygen Delivery Method Room Air BMI result Body Mass Index 26.5 Course Course Course Narrative: This is a Rapid Medical Examination (RME) performed by Rick Perla PA-C in triage. Full HPI, ROS, assessment and treatment plan per primary provider in the Main ED. Hx: 59 yo M hx of MDD, schizophrenia, PTSD, cocaine abuse here for eval of severe anxiety, depression, and AH. no SI/HI. has not taken home meds x2 days. reports 2 days of acute on chronic low back pain following a fall 5 yrs ago. no hx IVDU or spinal surgery. Plan: labs, UA, utox Reevaluation(s) Reevaluation #1: patient had an uneventful night. Patient was seen by the care team. Recommendations:ACCS Voluntary bed search. I reviewed patient's labs: No acute abnormality. Time: 06:05 Reevaluation #2: Time: 12:05 Date: 11/03/24 Provider: Srikanth Dao MD Physician observation ended at 12:00 noon. Patient has been cleared for discharge by the CARE team. A taxi will be taking the patient to the [facility] [place] office for further care.. Medications Administered Generic Name Dose Route Start Last Admin Trade Name Freq PRN Reason Stop Dose Admin Aspirin 81 mg 11/03/24 09:00 11/03/24 08:36 Aspirin Enteric Coated 81 Mg Tablet. PO 81 mg DAILY NILE Administration Atorvastatin Calcium 20 mg 11/03/24 09:00 11/03/24 08:37 Atorvastatin Calcium 20 Mg Tablet PO 20 mg DAILY NILE Administration Dicyclomine HCl 20 mg 11/03/24 09:00 11/03/24 08:37 Dicyclomine Hcl 10 Mg Capsule PO 20 mg TID NILE Administration Docusate Sodium 100 mg 11/03/24 09:00 11/03/24 08:37 Docusate Sodium 100 Mg Capsule PO 100 mg DAILY NILE Administration Metformin HCl 1,000 mg 11/03/24 09:00 11/03/24 08:37 Metformin Hcl 1,000 Mg Tablet PO 1,000 mg BIDWM NILE Administration Omeprazole 20 mg 11/03/24 08:30 11/03/24 08:36 Omeprazole 20 Mg Capsule. PO 20 mg DAILY@0630 NILE Administration Paroxetine HCl 40 mg 11/03/24 09:00 11/03/24 08:37 Paroxetine Hcl 40 Mg Tablet PO 40 mg DAILY NILE Administration Polyethylene Glycol 17 gm 11/03/24 09:00 11/03/24 08:36 Polyethylene Glycol 3350 17 Gm Powd.Pack PO 17 gm DAILY NILE Administration Sitagliptin Phosphate 100 mg 11/03/24 09:00 11/03/24 08:37 Sitagliptin Phosphate 100 Mg Tablet PO 100 mg DAILY NILE Administration Medical Decision Making Medical Decision Making MDM Narrative: my interpretation of labs: No significant abnormality in patient's hematology or chemistry, urinalysis negative for UTI, urine toxicology positive for marijuana care team consult pending patient is not on a Section 12 at this time, patient is here voluntarily, not SI or HI physician observation started at 22:10 Differential Diagnosis Differential Diagnoses: The differential diagnosis associated with the presentation includes ( anxiety, depression, polysubstance abuse) Admission/Observation Consideration of admission/observation: Escalation of care including admission/observation considered ( patient is under physician observation waiting to be seen by the care team) Lab Data MDM Lab Attestation statement: I reviewed the patient's lab results. 11/02/24 19:45 11/02/24 19:45 Labs: Lab Results 11/02/24 11/02/24 11/02/24 Range/Units 19:45 21:11 21:14 WBC 6.8 (4.8-10.8) X10*3/uL RBC 4.40 L (4.60-5.80) X10*6/uL Hgb 12.1 L (14.0-18.0) g/dl Hct 36.4 L (42.0-52.0) % MCV 82.7 (80.0-98.0) fL MCH 27.5 (27.0-33.0) pg MCHC 33.2 (31.0-36.0) g/dl RDW 14.0 (11.0-16.0) % Plt Count 260 (160-400) X10*3/uL MPV 9.7 (9.4-12.4) fL Immature Gran % (Auto) 0.1 (0.0-0.4) % Neut % (Auto) 63.2 (45-73) % Lymph % (Auto) 25.3 (20-40) % [place] % (Auto) 10.0 (2-11) % Eos % (Auto) 1.0 (0-4) % Baso % (Auto) 0.4 (0-2) % Lymph # (Auto) 1.7 (1.2-4.9) X10*3/uL [place] # (Auto) 0.7 (0.1-1.2) X10*3/uL Eos # (Auto) 0.1 (0.0-0.4) X10*3/uL Baso # (Auto) 0.0 (0.0-0.2) X10*3/uL Abs Immat Gran (auto) 0.01 (0.00-0.03) X10*3/uL Absolute Neuts (auto) 4.3 (2.0-8.3) x10*3/uL Absolute Nucleated RBC 0.000 (0.0-0.012) X10*3/uL Nucleated RBC % (auto) 0.0 (0.0-0.2) /100WBC Sodium 138 (135-145) mmol/L Potassium 4.4 (3.3-5.1) mmol/L Chloride 103 (96-108) mmol/L Carbon Dioxide 27 (22-29) mmol/L Anion Gap 12 (12-20) BUN 31 H (9-16) mg/dL Creatinine 1.08 (0.5-1.4) mg/dL Estim Creat Clear Calc 67.2 Estimated GFR > 60 POC Glucose 263 H (60-115) mg/dL Random Glucose 316 H (60-115) mg/dL Calcium 9.5 (8.4-10.2) mg/dL Magnesium 2.2 (1.6-2.6) mg/dL Total Bilirubin 0.3 (0.0-1.0) mg/dL AST 35 (5-37) U/L ALT 32 (0-40) U/L Alkaline Phosphatase 81 (39-117) U/L Total Protein 7.7 (6.5-8.0) g/dL Albumin 4.4 (3.5-5.0) g/dL Lipase 31 (8-78) U/L Urine Color Yellow Urine Appearance Clear Urine pH 6.0 (5.0-9.0) Ur Specific [place] >= 1.030 H (1.005-1.025) Urine Protein 100 (2+) H (Neg-Trace) mg/dL Urine Glucose (UA) >=1000 H (Negative) mg/dL Urine Ketones Negative (Negative) mg/dL Urine Blood Trace H (Negative) Urine Nitrite Negative (Negative) Ur Leukocyte Esterase Negative (Negative) Urine RBC 3-5 H (0-2) /HPF Urine WBC 0-5 (0-5) /HPF Ur Squamous Epith Cells 0-2 (0-2) /HPF Urine Bacteria None Seen (None Seen) Hyaline Casts 0-2 (0-2) /LPF Salicylates < 5.0 L (15-30) mg/dL Urine Opiates Screen Not Detected (Not Detect) Ur Buprenorphine Scrn Not Detected (Not Detect) ng/mL Ur Oxycodone Screen Not Detected (Not Detect) ng/mL Urine Methadone Screen Not Detected (Not Detect) ng/mL Urine Fentanyl Screen Not Detected (Not Detect) Ur Barbiturates Screen Not Detected (Not Detect) Ur Phencyclidine Scrn Not Detected (Not Detect) Ur Amphetamines Screen Not Detected (Not Detect) U Benzodiazepines Scrn Not Detected (Not Detect) Urine Cocaine Screen Not Detected (Not Detect) U Marijuana (THC) Screen POSITIVE H (Not Detect) Ethyl Alcohol < 10 mg/dL 11/03/24 Range/Units 07:00 WBC (4.8-10.8) X10*3/uL RBC (4.60-5.80) X10*6/uL Hgb (14.0-18.0) g/dl Hct (42.0-52.0) % MCV (80.0-98.0) fL MCH (27.0-33.0) pg MCHC (31.0-36.0) g/dl RDW (11.0-16.0) % Plt Count (160-400) X10*3/uL MPV (9.4-12.4) fL Immature Gran % (Auto) (0.0-0.4) % Neut % (Auto) (45-73) % Lymph % (Auto) (20-40) % [place] % (Auto) (2-11) % Eos % (Auto) (0-4) % Baso % (Auto) (0-2) % Lymph # (Auto) (1.2-4.9) X10*3/uL [place] # (Auto) (0.1-1.2) X10*3/uL Eos # (Auto) (0.0-0.4) X10*3/uL Baso # (Auto) (0.0-0.2) X10*3/uL Abs Immat Gran (auto) (0.00-0.03) X10*3/uL Absolute Neuts (auto) (2.0-8.3) x10*3/uL Absolute Nucleated RBC (0.0-0.012) X10*3/uL Nucleated RBC % (auto) (0.0-0.2) /100WBC Sodium (135-145) mmol/L Potassium (3.3-5.1) mmol/L Chloride (96-108) mmol/L Carbon Dioxide (22-29) mmol/L Anion Gap (12-20) BUN (9-16) mg/dL Creatinine (0.5-1.4) mg/dL Estim Creat Clear Calc Estimated GFR POC Glucose 279 H (60-115) mg/dL Random Glucose (60-115) mg/dL Calcium (8.4-10.2) mg/dL Magnesium (1.6-2.6) mg/dL Total Bilirubin (0.0-1.0) mg/dL AST (5-37) U/L ALT (0-40) U/L Alkaline Phosphatase (39-117) U/L Total Protein (6.5-8.0) g/dL Albumin (3.5-5.0) g/dL Lipase (8-78) U/L Urine Color Urine Appearance Urine pH (5.0-9.0) Ur Specific [place] (1.005-1.025) Urine Protein (Neg-Trace) mg/dL Urine Glucose (UA) (Negative) mg/dL Urine Ketones (Negative) mg/dL Urine Blood (Negative) Urine Nitrite (Negative) Ur Leukocyte Esterase (Negative) Urine RBC (0-2) /HPF Urine WBC (0-5) /HPF Ur Squamous Epith Cells (0-2) /HPF Urine Bacteria (None Seen) Hyaline Casts (0-2) /LPF Salicylates (15-30) mg/dL Urine Opiates Screen (Not Detect) Ur Buprenorphine Scrn (Not Detect) ng/mL Ur Oxycodone Screen (Not Detect) ng/mL Urine Methadone Screen (Not Detect) ng/mL Urine Fentanyl Screen (Not Detect) Ur Barbiturates Screen (Not Detect) Ur Phencyclidine Scrn (Not Detect) Ur Amphetamines Screen (Not Detect) U Benzodiazepines Scrn (Not Detect) Urine Cocaine Screen (Not Detect) U Marijuana (THC) Screen (Not Detect) Ethyl Alcohol mg/dL Critical Care Time Critical Care Time Critical Care Time: Yes Total Critical Care Time: 35 Attestation: I have personally provided critical care time. Time includes review of lab data, radiology results, discussion with consultants, and monitoring for potential decompensation. Intervention performed as documented. Discharge Plan Discharge Clinical Impression: Anxiety with depression Patient Disposition: Home, Self-Care Additional Instructions: A taxi has been arranged to take you to the [facility] office to see what can be arranged to help you. Please continue your regular medications. Please follow up with your regular providers. Return to the emergency room if significantly worse. You were seen in our Emergency Department today for treatment of a behavioral health issue. It is important after your visit that you follow up with either your behavioral health provider or a primary care doctor within 7 days.? If you have trouble finding a therapist you can reach out to [address] [phone] The [employer] Suicide and Crisis Lifeline can be reached 7 days a week 24 hours a day.? Call [phone] to speak with someone.? Return for any worsening symptoms or concerns such as thoughts of self harm or harm to others. Please call 911 if you feel your mental health is worsening.? Prescriptions: No Action insulin lispro [Admelog U-100 Insulin lispro] 100 unit/mL Solution See Protocol subcut QIDACHS 30 Days Qty: 10 0RF Protocol: Insulin Correction Scale Less than or equal to 110 ---- Give (units): 0 111 to 150 Give (units): 0 151 to 200 Give (units): 2 201 to 250 Give (units): 4 251 to 300 Give (units): 6 301 to 350 Give (units): 8 Greater than 350 Give (units): 10 Call MD if Blood Glucose > : 350 Januvia 100 mg tablet 100 mg PO DAILY 30 Days Qty: 30 0RF metformin 1,000 mg tablet 1,000 mg PO BID melatonin 10 mg tablet 10 mg PO BEDTIME aspirin 81 mg tablet,delayed release (DR/EC) 81 mg PO DAILY quetiapine 50 mg tablet 50 mg PO BID PRN (Reason: AGITATION/RACING THOUGHTS) quetiapine 400 mg tablet 400 mg PO DAILY@1700 insulin glargine [Lantus Solostar U-100 Insulin] 100 unit/mL (3 mL) insulin pen 20 unit subcut BEDTIME gabapentin 300 mg capsule 300 mg PO TID PRN (Reason: neuropathy) albuterol sulfate 90 mcg/actuation HFA aerosol inhaler 2 puff INHALATION QID PRN (Reason: wheezing) docusate sodium 100 mg Capsule 100 mg PO DAILY trazodone 50 mg tablet 50 mg PO BEDTIME PRN (Reason: Sleep) atorvastatin 40 mg tablet 20 mg PO DAILY dicyclomine 20 mg tablet 20 mg PO TID Qty: 10 0RF paroxetine HCl 20 mg Tablet 40 mg PO DAILY hydroxyzine pamoate 50 mg capsule 50 mg PO BID PRN (Reason: Anxiety) pantoprazole 40 mg tablet,delayed release (DR/EC) 40 mg PO DAILY polyethylene glycol 3350 [Miralax] 17 gram/dose powder See Rx Instructions .ROUTE .COMPLEX Qty: 119 0RF Rx Instructions: 17 g orally per instructions in your discharge paperwork. Interventions: Dodge-Suicide Risk Severity Scale Last Done: 11/02/24 20:54 Print Language: Bulgarian
[2024-11-02 17:25] VITALS: BP 145/65; PULSE 100; RESP 18; TEMP 36.6; O2SAT 98; BMI 26.5
[2024-11-02 19:49] LABS: MANUAL DIFF FLAG NO
[2024-11-02 19:58] LABS: Hematocrit 36.4 % (42.0-52.0); Hemoglobin 12.1 g/dl (14.0-18.0); Imm Gran Abs Auto 0.01 X10*3/uL (0.00-0.03); Imm Gran Pct Auto 0.1 % (0.0-0.4); Lymphocytes Absolute Auto 1.7 X10*3/uL (1.2-4.9); Mean Corpuscular HGB Conc 33.2 g/dl (31.0-36.0); Mean Corpuscular Hemoglobin 27.5 pg (27.0-33.0); Mean Corpuscular Volume 82.7 fL (80.0-98.0); NRBC Abs Auto 0.000 X10*3/uL (0.0-0.012); NRBC Pct Auto 0.0 /100WBC (0.0-0.2); Platelet Count 260 X10*3/uL (160-400); Red Blood Count 4.40 X10*6/uL (4.60-5.80); White Blood Count 6.8 X10*3/uL (4.8-10.8)
[2024-11-02 20:05] LABS: Alanine Aminotransferase 32 U/L (0-40); Albumin Level 4.4 g/dL (3.5-5.0); Alkaline Phosphatase 81 U/L (39-117); Anion Gap 12 (12-20); Aspartate Amino Transferase 35 U/L (5-37); Blood Urea Nitrogen 31 mg/dL (9-16); Calcium 9.5 mg/dL (8.4-10.2); Carbon Dioxide 27 mmol/L (22-29); Chloride 103 mmol/L (96-108); Creatinine Clr Calc Pharmacy 67.2; Estimated Glomerular Filt Rate > 60; Lipase 31 U/L (8-78); Magnesium 2.2 mg/dL (1.6-2.6); Potassium 4.4 mmol/L (3.3-5.1); Sodium 138 mmol/L (135-145); Total Protein 7.7 g/dL (6.5-8.0)
[2024-11-02 20:06] LABS: Salicylate < 5.0 mg/dL (15-30)
--- NOTE | 2024-11-02 21:00 | PC.NURSE ---
pt had non controlled home medications in his belongings. secured with belongings. pt is calm/cooperative axox4. denies si/hi currently reports AH. pt requested and given diet gingerale. reports he did not take his diabetes meds today because I was upstairs. awaiting eval by primary ed provider for plan of care.
[2024-11-02 21:14] LABS: Glucose, Whole Blood 263 mg/dL (60-115)
[2024-11-02 21:25] LABS: Appearance Urine Clear; Glucose Urine UA >=1000 mg/dL (Negative); PH 6.0 (5.0-9.0); Specific Gravity - Urine >= 1.030 (1.005-1.025); UMIC TRIGGER UACC YES
--- OUTSIDE RECORDS SUMMARY | 2024-11-02 21:34 | XMS_ITS | Encounter Summary ---
Author Organization [facility] Address [address] [place] [address] Care Team Providers Care Chemical Laboratory Scientist Name Role Phone Yoel Parrish MD Primary Care Provider [phone] Encounter Details Date Type Department Care Team (Late st Contact Info) Description 08/29/2024 Lab Requisition [facility] - Main Lab [address] [facility] [employer] [place] [address] [facility] [address] [place] [address] Social History Tobacco Use Types Packs/Day Years [...] your loved ones. For example, early childhood worker or elderly care for an older [...] 08/24/2024 3:28 PM EDMarcela Almanzar RN * Are you blind or do [...] 08/24/2024 3:28 PM EDMarcela Almanzar RN * Because of a physical, mental, or emotional condition, do you have serious difficulty doing errandsalone such as visiting the doctor? Answer Date of Assessment Author No 08/24/2024 3:28 PM EDMarcela Almanzar RN documented as of this encounter Mental Status * Because of a physical, mental, or emotional condition, do you have serious difficulty concentrating, remembering, or making decisions? (5 years old or older) Answer Entry Date Author No 08/24/2024 3:28 PM EDMarcela Almanzar RN documented in this encounter Plan of Treatment Not on file documented as of this encounter Visit Diagnoses Not on filedocumented in this encounter Care Teams Chemical Laboratory Scientist Relationship Specialty Start Date End Date Yoel Parrish MD [address] [place] [phone] PCP - General Internal Medicine 01/27/24 documented as of this encounter
--- OUTSIDE RECORDS SUMMARY | 2024-11-02 21:34 | XMS_ITS ---
Author Organization [facility] Address [address] [place] [address] Phone Care Team Providers Care Dry Folder Cloth Name Role Phone Yoel Parrish MD Primary Care Provider [phone] [facility] - Food Insecurity Status:Ongoing (Active) Start date:04/11/2024 Enrollment date:04/11/2024 Enrollment reason:Walk-in Related social drivers of health:Food Risk Related program episode:Community Health Worker Program (Closed) Overview Community Health Worker Program - Food Insecurity Service Episode Case Team Name Relationship Phone Vu Chicas Community Health Worker(Respons ible Staff) Continued Care and Services Coordination
--- OUTSIDE RECORDS SUMMARY | 2024-11-02 21:34 | XMS_ITS | Encounter Summary ---
Author Organization [employer] [facility] Address [address] [place] [address] Care Team Providers Care Sound Technician Supervisor Name Role Phone Yoel Parrish MD Primary Care Provider [phone] Encounter Details Date Type Department Care Team (Late st Contact Info) Description 08/29/2024 Lab Requisition [facility] - Main Lab [address] [facility] [place] [address] [facility] [address] [place], [place] [id number] Other salvage determiner (current) drug therapy Social History Tobacco Use [...] your loved ones. For example, early childhood teacher assistant or elderly care for an older adult? [...] PANEL Routine 08/29/2024 7:00 AM EDT Other halfway (current) drug therapy documented in this encounter Results * (ABNORMAL) Basic metabolic panel (08/29/2024 7:00 AM EDT) Sodium 138 133 - 145 mmol/L LAB CHEMISTRY METHOD 08/29/2024 11:26 AM [facility] Potassium 4.4 3.5 - 5.5 mmol/L LAB CHEMISTRY METHOD 08/29/2024 11:26 AM [facility] Chloride 104 96 - 110 mmol/L LAB CHEMISTRY METHOD 08/29/2024 11:26 AM [facility] CO2 28 21 - 32 mmol/L LAB CHEMISTRY METHOD 08/29/2024 11:26 AM [facility] Anion Gap 6 3 - 11 LAB CHEMISTRY METHOD 08/29/2024 11:26 AM [facility] Glucose 175(H) 70 - 100 mg/dL LAB CHEMISTRY METHOD 08/29/2024 11:26 AM [facility] BUN 19 5 - 25 mg/dL LAB CHEMISTRY METHOD 08/29/2024 11:26 AM [facility] Creatinine 1.06 0.70 - 1.30 mg/dL LAB CHEMISTRY METHOD 08/29/2024 11:26 AM EDT [facility] eGFR 81 >=60 mL/min/1. 73m2 LAB CHEMISTRY METHOD 08/29/2024 11:26 AM EDT [facility] Comment:Calculation based on the Chronic Kidney Disease Epidemiology Collaboration (CKD-EPI) equation refit without adjustment for race. BUN/Creatinine Ratio 17.9 LAB CHEMISTRY METHOD 08/29/2024 11:26 AM EDT [facility] Calcium 8.7 8.5 - 10.5 mg/dL LAB CHEMISTRY METHOD 08/29/2024 11:26 AM EDT [facility] Blood Venous blood specimen / Unknown Venipuncture / Unknown 08/29/2024 7:00 AM EDT 08/29/2024 10:10 AM EDT [facility] BLOOD ORDERABLES Final Resul t [facility] [address] [place] [address], documented in this encounter Visit Diagnoses Diagnosis Other halfway (current) drug therapy documented in this encounter Care Teams Sound Technician Supervisor Relationship Specialty Start Date End Date Yoel Parrish MD [address] [place] [phone] PCP - General Internal Medicine 01/27/24 documented as of this encounter
--- OUTSIDE RECORDS SUMMARY | 2024-11-02 21:34 | XMS_ITS | Clinical Summary ---
Author Organization [facility] Address [address] [facility] [address] [place] [id number] Phone Care Team Providers Care Header Operator Name Role Phone Pcp, Unknown Primary Care [...] 5:58 AM EDT Emergency [facility] [address] [place] [address] Brenda Sofia MD Discharge Disposition: Home or Self Care 09/03/2024 12:12 AM EDT - 09/03/2024 2:18 AM EDT Emergency [facility] [address] [place] [address] Vik Arrington MD Discharge Disposition: Home or [...] 2011 ZOSTER VACCINES (1 of 2) 01/07/2016 DIABETIC EYE EXAM 09/15/2024 URINE MICROALBUMIN/CREATININE RATIO 09/15/2024 INFLUENZA VACCINE (#1) 2024 COVID-19 VACCINE ( season) 2024 HEMOGLOBIN A1C 02/25/2025 08/26/2024, 08/05/2024 CREATININE LEVEL [...] POCT 282(H) 70 - 100 mg/dL [facility] 09/04/2024 5:32 AM EDT 09/04/2024 5:38 AM EDT us Brenda Sofia MD POINT OF CARE TEST ORDERABLE S Final Result [facility] [address] [place] [address] * (ABNORMAL) CBC and differential (09/04/2024 4:28 AM EDT) WBC 8.93 4.00 - 11.00 K/uL [facility] RBC 4.75 4.50 - 5.90 M/uL [facility] HGB 13.2(L) 13.5 - 17.5 g/dL [facility] HCT 39.9(L) 41.0 - 53.0 % [facility] PLT 244 150 - 450 K/uL [facility] MCV 84.0 80.0 - 100.0 fL [facility] MCH 27.8 27.0 - 31.0 pg [facility] MCHC 33.1 32.0 - 36.0 g/dL [facility] RDW 13.5 11.5 - 14.5 % [facility] MPV 9.5 8.4 - 12.0 fL [facility] NRBC 0.00 0.00 /100 WBCs [facility] ABSOLUTE NRBC 0.00 0.00 K/uL [facility] DIFF METHOD Auto [facility] NEUTS 69.5 48.0 - 76.0 % [facility] LYMPHS 19.8 18.0 - 41.0 % [facility] MONOS 9.6 4.0 - 11.0 % [facility] EOS 0.6 0.0 - 5.0 % [facility] BASOS 0.3 0.0 - 1.5 % [facility] Granulocytes, immature (%) 0.2 0.0 - 0.9 % [facility] ABSOLUTE NEUTS 6.20 1.92 - 7.60 K/uL [facility] ABSOLUTE LYMPHS 1.77 0.72 - 4.10 K/uL [facility] ABSOLUTE MONOS 0.86 0.16 - 1.10 K/uL [facility] ABSOLUTE EOS 0.05 0.00 - 0.50 K/uL [facility] ABSOLUTE BASOS 0.03 0.00 - 0.15 K/uL [facility] Granulocytes, immature 0.02 0.00 - 0.09 K/uL [facility] Blood 09/04/2024 4:28 AM EDT 09/04/2024 4:30 AM EDT us Brenda Sofia MD LAB BLOOD ORDERABLES Final R esult Performing Organization Address City/[facility]/ZIP Co de Phone Number [address] [address] * (ABNORMAL) CPK (creatine kinase) (09/04/2024 4:28 AM EDT) CREATINE KINASE 257(H) 35 - 232 U/L [facility] Blood 09/04/2024 4:28 AM EDT 09/04/2024 4:30 AM EDT us Brenda Sofia MD LAB BLOOD ORDERABLES Final R esult [address] [address] * (ABNORMAL) Basic metabolic panel (09/04/2024 4:28 AM EDT) SODIUM 134 133 - 146 mmol/L [facility] CHLORIDE 99 96 - 108 mmol/L [facility] POTASSIUM 4.2 3.3 - 5.1 mmol/L [facility] CO2 23 21 - 35 mmol/L [facility] BUN 27(H) 6 - 19 mg/dL [facility] CREATININE 1.20 0.5 - 1.5 mg/dL [facility] GLUCOSE 329(H) 70 - 99 mg/dL [facility] CALCIUM 9.2 8.4 - 10.3 mg/dL [facility] EGFR 70 >59 mL/min/1.7 3m2 [facility] Comment:Estimated glomerular filtration rate calculated using the CKD-EPI refit equation. ANION GAP 16 10 - 20 mmol/L [facility] Blood 09/04/2024 4:28 AM EDT 09/04/2024 4:30 AM EDT Brenda Sofia MD LAB BLOOD ORDERABLES Final R esult Performing Organization Address City/[facility]/ZIP Co de Phone Number [address] [address] * (ABNORMAL) Urinalysis w/reflex Urine Culture (09/04/2024 2:45 AM EDT) COLOR Yellow Yellow [facility] CLARITY HAZY [facility] GLUCOSE Negative Negative [facility] BILI 1+(A) Negative [facility] KETONES Negative Negative [facility] SPECIFIC GRAVITY >1.030 1.005 - 1.030 [facility] BLOOD 1+(A) Negative [facility] PH 6.0 5.0 - 8.0 [facility] Protein-UA 3+(A) Negative [facility] NITRITE Negative Negative [facility] Leukocyte esterase, ur Negative Negative [facility] Urine (Urine) 09/04/2024 2:4 5 AM EDT 09/04/2024 2:48 AM EDT Brenda Sofia MD URINE ORDERABLES Final Resul t Performing Organization Address City/[facility]/ZIP Co de Phone Number [address] [address] * (ABNORMAL) Urine sediment (09/04/2024 2:45 AM EDT) WBC 0-4(A) NONE SEEN /hpf [facility] RBC 3-5(A) NONE SEEN /hpf [facility] URINE EPITHELIAL 0-4(A) NONE SEEN [facility] MUCUS 3+(A) NONE SEEN /hpf [facility] BACTERIA Trace(A) NONE SEEN /hpf [facility] CAST 6-10 [facility] Comment:HYALINE CAST 09/04/2024 2:45 AM EDT 09/04/2024 2:48 AM EDT us Brenda Sofia MD URINE ORDERABLES Final Resul t [address] [address] from Last 3 Months Insurance MEDICARE REPLACEMENT MEDICARE REPLACEMENT [employer] MEDICARE REPLACEMENT MEDICARE REPLACEMENT MEDICARE REPLACEMENT [address] [place] [address] MEDICARE REPLACEMENT ABHINAV ZAMAN [facility] Care Teams Header Operator Relationship Specialty Start Date End Date Pcp, Unknown PCP - General 07/16/24 Additional Source Comments The information contained in this document represents components of the legal health record. It is not the complete legal health record.[facility]
--- OUTSIDE RECORDS SUMMARY | 2024-11-02 21:34 | XMS_ITS | Encounter Summary ---
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 For example, housekeeper child care or elderly care for an older adult? [...] A1C Routine 08/26/2024 7:00 AM EDT Other half-way (current) drug therapy documented in this encounter Results * (ABNORMAL) Hemoglobin A1c (08/26/2024 7:00 AM EDT) Hemoglobin A1C 8.5(H) <6.5 % LAB CHEMISTRY METHOD 08/26/2024 2:31 PM EDT [facility] Mean Bld Glu Estim. 197 mg/dL LAB CHEMISTRY METHOD 08/26/2024 2:31 PM EDT [facility] Blood Venous blood specimen / Unknown Venipuncture / Unknown 08/26/2024 7:00 AM EDT 08/26/2024 11:03 AM EDT [facility] LAB BLOOD ORDERABLES Final Resul t [facility] [address] [place] [address], documented in this encounter Visit Diagnoses Diagnosis Other half-way (current) drug therapy documented in this encounter Care Teams Civil Drafting Technician Relationship Specialty Start Date End Date [facility]el Par[facility] [place] [address] PCP - General Internal Medicine 01/27/24 documented as of this encounter
--- OUTSIDE RECORDS SUMMARY | 2024-11-02 21:34 | XMS_ITS ---
Author Organization [facility] Address [address] [place] [address] Phone Care Team Providers Care Steel Fitter Name Role Phone Yoel Parrish MD Primary Care Provider [phone] [facility] - Behavioral Health Status:Ongoing (Active) Start date:04/11/2024 Enrollment date:04/11/2024 Enrollment reason:Walk-in Related program episode:Community Health Worker Program (Closed) Overview Behavior Health service of Community Health Worker Program Case Team Name Relationship Phone Vu Chicas Community Health Worker(Respons ible Staff) Continued Care and Services Coordination
--- OUTSIDE RECORDS SUMMARY | 2024-11-02 21:34 | XMS_ITS | Clinical Summary ---
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 [facility] Comment:Calculation based on the Chronic Kidney Disease Epidemiology Collaboration (CKD-EPI) equation refit without adjustment for race. BUN/Creatinine Ratio 17.9 LAB CHEMISTRY METHOD 08/29/2024 11:26 AM [facility] Calcium 8.7 8.5 - 10.5 mg/dL LAB CHEMISTRY METHOD 08/29/2024 11:26 AM [facility] Blood Venous blood specimen / Unknown Venipuncture / Unknown 08/29/2024 7:00 AM EDT 08/29/2024 10:10 AM EDT Tanvi Lockhart LAB BLOOD ORDERABLES Final Resul t [facility] [address] [place] [address], * (ABNORMAL) Hemoglobin A1c (08/26/2024 7:00 AM EDT) Only the most recent of2 resultswithin the time period is included. Hemoglobin A1C 8.5(H) <6.5 % LAB CHEMISTRY METHOD 08/26/2024 2:31 PM EDT [facility] Mean Bld Glu Estim. 197 mg/dL LAB CHEMISTRY METHOD 08/26/2024 2:31 PM EDT [facility] Blood Venous blood specimen / Unknown Venipuncture / Unknown 08/26/2024 7:00 AM EDT 08/26/2024 11:03 AM EDT us Tanvi Lockhart LAB BLOOD ORDERABLES Final Resul t [facility] [address] [place] [address], [place] [phone] * CT Abdomen Pelvis wo Contrast (08/18/2024 [...] Ericka Huerta 08/18/2024 06:39:47 Luz Parker MD IM CT PROCEDURES Final Result * (ABNORMAL) Lipid panel with reflex to direct LDL (08/05/2024 7:00 AM EDT) Cholesterol 181 0 - 200 mg/dL LAB CHEMISTRY METHOD 08/05/2024 11:26 AM EDT [facility] Triglycerides 306(H) 0 - 150 mg/dL LAB CHEMISTRY METHOD 08/05/2024 11:26 AM EDT [facility] HDL 26(L) >=40 mg/dL LAB CHEMISTRY METHOD 08/05/2024 11:26 AM [facility] LDL Calculated 94 0 - 100 mg/dL LAB CHEMISTRY METHOD 08/05/2024 11:26 AM EDT [facility] VLDL Cholesterol Hong 61.2 mg/dL LAB CHEMISTRY METHOD 08/05/2024 11:26 AM EDT [facility] Non HDL Chol. (LDL+VLDL) 155(H) <145 mg/dL LAB CHEMISTRY METHOD 08/05/2024 11:26 AM EDT [facility] Chol/HDL Ratio 7.0(H) 0.0 - 4.4 LAB CHEMISTRY METHOD 08/05/2024 11:26 AM EDT [facility] Blood Venous blood specimen / Unknown Venipuncture / Unknown 08/05/2024 7:00 AM EDT 08/05/2024 9:58 AM EDT us Annie Barraza [employer] SCIENCE TEACHER LAB BLOOD ORDERABLES Final Re sult [facility]) [facility] [address] [place] [address], from Last 3 Months Insurance [facility] MEDICARE Member Subscriber Plan / Payer (Ef fective 2024-Present) Name:ANDREAS CONWAY Relation to Subscriber:Self Name:Andreas Conway Payer ID:[id number] Group ID:[id number] Type:Not on file Address: [place] [facility] [place] [phone] Care Teams Etiquette Teacher Relationship Specialty Start Date End Date Yoel Parrish MD [address] [place] [address] [phone] PCP - General Internal Medicine 01/27/24
--- OUTSIDE RECORDS SUMMARY | 2024-11-02 21:34 | XMS_ITS | Encounter Summary ---
Author Organization [facility] Address [address] [place] [address] Care Team Providers Care Certified Family Mediator Name Role Phone Yeol Parrish MD Primary Care Provider [phone] Encounter Details Date Type Department Care Team (Late st Contact Info) Description 08/26/2024 Lab Requisition [facility] - Main Lab [address] [facility] [address] [facility] [address] [place] [address] Social History Tobacco Use Types Packs/Day Years [...] care for your loved ones. For example, children counselor or elderly care for an older adult? [...] on filedocumented in this encounter Care Teams Certified Family Mediator Relationship Specialty Start Date End Date Yoel Parrish MD [address] [place] [phone] PCP - General Internal Medicine 01/27/24 documented as of this encounter
--- OUTSIDE RECORDS SUMMARY | 2024-11-02 21:34 | XMS_ITS ---
Author Organization [facility] Address [address] [place] [address] Phone Care Team Providers Care Flatbed Company Driver Name Role Phone Yoel Parrish MD Primary Care Provider [phone] [facility] - Housing Status:Ongoing (Active) Start date:04/11/2024 Enrollment date:04/11/2024 Enrollment reason:Walk-in Related social drivers of health:Housing Instability Related program episode:Community Health Worker Program (Closed) Overview Housing service of Community Health Worker Program Case Team Name Relationship Phone Vu Chicas Community Health Worker(Respons ible Staff) Continued Care and Services Coordination
--- OUTSIDE RECORDS SUMMARY | 2024-11-02 21:34 | XMS_ITS | Encounter Summary ---
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 For example, attendant child activity or elderly care for an older adult? [...] 08/01/2024 12:24 AM Halley Albarado, MILA * Are you blind or do you have serious difficulty seeing, even when wearing glasses? Answer Date of Assessment Author No 08/01/2024 12:24 AM Halley Albarado, MILA * Do you have serious difficulty walking or climbing stairs? 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 194 mg/dL LAB CHEMISTRY METHOD 08/05/2024 1:51 PM EDT [facility] Blood Venous blood specimen / Unknown Venipuncture / Unknown 08/05/2024 7:00 AM EDT 08/05/2024 9:58 AM EDT us Annie Barraza MILLING MACHINIST LAB BLOOD ORDERABLES Final Re sult [facility] [address] [place] [address], [place] [phone] * (ABNORMAL) Lipid panel with reflex to direct LDL (08/05/2024 7:00 AM EDT) Cholesterol 181 0 - 200 mg/dL LAB CHEMISTRY METHOD 08/05/2024 11:26 AM [facility] Triglycerides 306(H) 0 - 150 mg/dL LAB CHEMISTRY METHOD 08/05/2024 11:26 AM [facility] HDL 26(L) >=40 mg/dL LAB CHEMISTRY METHOD 08/05/2024 11:26 AM [facility] LDL Calculated 94 0 - 100 mg/dL LAB CHEMISTRY METHOD 08/05/2024 11:26 AM [facility] VLDL Cholesterol Hong 61.2 mg/dL LAB CHEMISTRY METHOD 08/05/2024 11:26 AM [facility] Non HDL Chol. (LDL+VLDL) 155(H) <145 mg/dL LAB CHEMISTRY METHOD 08/05/2024 11:26 AM [facility] Chol/HDL Ratio 7.0(H) 0.0 - 4.4 LAB CHEMISTRY METHOD 08/05/2024 11:26 AM [facility] Blood Venous blood specimen / Unknown Venipuncture / Unknown 08/05/2024 7:00 AM EDT 08/05/2024 9:58 AM EDT Annie Barraza MILLING MACHINIST LAB BLOOD ORDERABLES Final Re sult [facility] [address] [place] [address], documented in this encounter Visit Diagnoses Diagnosis Other [facility] (current) drug therapy documented in this encounter Care Teams Nursing Services Manager Relationship Specialty Start Date End Date Yoel Parrish MD [address] [place] [phone] PCP - General Internal Medicine 01/27/24 documented as of this encounter
[2024-11-02 21:35] LABS: Cannabinoid Screen Urine POSITIVE (Not Detect)
[2024-11-03 06:15] VITALS: RESP 16
[2024-11-03 07:05] LABS: Glucose, Whole Blood 279 mg/dL (60-115)
--- NOTE | 2024-11-03 07:25 | PC.NURSE ---
Addendum entered by Rowena Jett RN 11/03/24 07:27: Patient is a 59 year-old Bilingual (Nigerien/Mauritanian) man who self presented to [facility] ED reporting an increase in depression, anxiety and auditory hallucinations after his was arrested. Patient denies safety concerns and reports he is seeking ACCS placement. Patient is chronically homeless and inconsistent with his medications. He is not currently connected to [facility], but expresses a desire to connect, though he has not been able to follow through on referrals. He is able to self advocated and has knowledge of community resources. He is a [facility] and has access to additional services through his health plan provider. Patient today does not meet [facility] and will be assisted with ACCS placement. He would benefit from an outpatient therapist and prescriber. Original Note: Medical History Asthma Depression MDD (major depressive disorder), recurrent episode, moderate Cocaine use disorder Substance-induced psychotic disorder Anxiety Diabetes
--- NOTE | 2024-11-03 08:15 | PHA.MEDREC ---
Pharmacy Consult ? Medication Reconciliation RN has completed the medication reconciliation, [facility] reviewed.
[2024-11-03] MEDS: Aspirin Enteric Coated 81 MG TABLET.DR PO (08:36)
[2024-11-03] MEDS: PARoxetine HCL 40 MG TABLET PO (08:37)
[2024-11-03 12:21] VITALS: BP 145/65; PULSE 100; RESP 18; TEMP 36.6; O2SAT 98
== END 2024-11-03 12:22 | disposition home or self-care (01) ==
PROVIDERS: Physician Assistant Medical; Emergency Provider Emergency Medicine
DX: F33.1 Major depressive disorder, recurrent, moderate (principal); F41.9 Anxiety disorder, unspecified; R06.02 Shortness of breath; M54.50 Low back pain, unspecified; F17.210 Nicotine dependence, cigarettes, uncomplicated; Z79.899 Other long term (current) drug therapy; Z79.4 Long term (current) use of insulin; Z51.81 Encounter for therapeutic drug level monitoring
CPT/HCPCS: 36415; 80053; 80179; 80307; 81001; 82947; 83690; 83735; 85025; 99284; S9485

== ENCOUNTER 2024-11-19 21:01 | Emergency (ER) | payer OTHER, SELFPAY ==
--- OUTSIDE RECORDS SUMMARY | 2024-11-16 03:13 | XMS_ITS | Encounter Summary ---
Author Organization [employer] Address [address] [place] [address] Care Team Providers Care Sticker Machine Operator Name Role Phone Yoel Parrish MD Primary Care Provider [phone] Reason for Visit * Reason Comments RIGHT LEG PAIN Back Pain Encounter Details Date Type Department Care Team (Late st Contact Info) Description 11/16/2024 3:13 AM EDT - 11/16/2024 3:14 AM EDT [facility] Emergency [address] [place] [phone] Salena Harrington MD [address] [place] [address] Chronic right-sided low back pain without sciatica (Primary Dx) Discharge Disposition: Home or Self Care Social [...] care for your loved ones. For example, school childcare attendant or elderly care for an older adult? [...] Sign Reading Time Taken Comments Blood Pressure 151/92 11/16/2024 1:52 AM EDT Pulse 97 11/16/2024 1:52 AM EDT Temperature 37.1 C (98.7 F) 11/16/2024 1:52 AM EDT Respiratory Rate 18 11/16/2024 1:52 AM EDT Oxygen Saturation 98% 11/16/2024 1:52 AM EDT Inhaled Oxygen Concentration - - Weight 77.6 kg (171 lb) 11/16/2024 1:52 AM EDT Height 167.6 cm (5' 6 ) 11/16/2024 1:52 AM EDT Body Mass Index 27.6 11/16/2024 1:52 AM EDT documented in this encounter Functional Status * Are you deaf or do you have serious difficulty hearing? Answer Date of Assessment Author No 11/04/2024 7:35 PM EDT Rik Roman RN * Are you blind or do you have serious difficulty seeing, even when wearing glasses? Answer Date of Assessment Author No 11/04/2024 7:35 PM EDT Rik Roman RN * Do you have serious difficulty walking or climbing stairs? Answer Date of Assessment Author No 11/04/2024 7:35 PM EDT Rik Roman RN * Do you have serious difficulty dressing or bathing? Answer Date of Assessment Author No 11/04/2024 7:35 PM EDT Rik Roman RN * Because of a physical, mental, or emotional condition, do you have serious difficulty doing errandsalone such as visiting the doctor? Answer Date of Assessment Author No 11/04/2024 7:35 PM EDT Rik Roman RN documented as of this encounter Mental Status * Because of a physical, mental, or emotional condition, do you have serious difficulty concentrating, remembering, or making decisions? (5 years old or older) Answer Entry Date Author No 11/04/2024 7:35 PM EDT Rik Roman RN documented in this encounter Discharge Instructions * Discharge Instructions* Salena Harrington MD - 11/16/2024 3:10 AM EDT Your work-up in the emergency department showed no findings concerning enough to require admission to the hospital. You should still follow-up with a primary care physician as soon as possible to review your labs/imaging and discuss any non-emergent findings from your visit today that may require further testing as an outpatient. If you have been referred to see a specialist, contact information is provided above. Call as soon as possible to schedule follow up. If you were prescribed any medications, please take as directed. *If you received sedating or mind altering medications while in the emergency department, you should not operate a motor vehicle for at least 12 hours. Please request a ride share/cab service if a family member is unable to provide transportation home.* * Attachments The following attachments cannot be sent through Care Everywhere. * Back Pain: Strengthening Your Core: Video (Bruneian) * Back Pain: Have a Maintenance Plan: Video (Bruneian) documented in this encounter Medications at Time [...] mouth daily. 03/21/2024 cyclobenzaprine (FLEXERIL) 10 mg tabletIndications :Chronic right-sided low back pain without sciatica Take 1 tablet (10 mg total) by mouth 2 (two) times a day if needed for muscle spasms for up to 10 days. 20 tablet 11/16/2024 11/26/2024 docusate sodium (COLACE) 100 mg capsule Take [...] mg total) by mouth at bedtime. 09/27/2024 naproxen (NAPROSYN) 375 mg tablet Take 1 tablet (375 mg total) by mouth 2 (two) times a day with meals for 10 days. 20 tablet 11/16/2024 11/26/2024 nicotine polacrilex (NICORETTE) [address] [...] Refills Last Filled Start Date End Date naproxen (NAPROSYN) 375 mg tablet Take 1 tablet (375 mg total) by mouth 2 (two) times a day with meals for 10 days. 20 tablet 11/16/2024 11/26/2024 cyclobenzaprine (FLEXERIL) 10 mg tabletIndications: Chronic right-sided low back pain without sciatica Take 1 tablet (10 mg total) by mouth 2 (two) times a day if needed for muscle spasms for up to 10 days. 20 tablet 11/16/2024 11/26/2024 documented in this encounter Discharge Disposition Disposition Code Departure Means Destination Comment s Home or Self Detention PT SEEN AND DISCHARGED BY PROVIDER documented in this encounter Progress Notes * Hannah Burnham RN - 11/16/2024 3:13 AM EDT PT SEEN AND DISCHARGED BY PROVIDER * Hannah Burnham RN - 11/16/2024 1:53 AM EDT PT ARRIVES STEADY GAIT, CARRIES LARGE DUFFLE BAG WITH EASE, STATES HE FELL EARLIER AND NOW HAS RT LEG AND LOWER BACK PAIN, DENIES HEAD STRIKE, DENIES LOC, PT WAS A TRIP AND FALL, PT DENIES ANY OTHER INJURIES OR COMPLAINTS USES TOBACCO NO WEED * Salena Harrington MD - 11/16/2024 1:47 AM EDT Patient Name: Andreas Conway Date and Time of Assessment: 3:09 AM EDT 11/16/24 Patient : 1965 Patient's PMD: Yoel Parrish MD Chief Complaint Patient presents with ??? RIGHT LEG PAIN ??? Back Pain HPI: 59 yo male presents with right knee and back pain. States back pain is chronic but righ tknee pain started today. Able to walk. He fell and hurt his right leg. No head injury. No LOC. Mechanical fall. He has not taken anything for pain. PHYSICAL EXAM: Visit Vitals BP (!) 151/92 (Patient Position: Sitting) Pulse 97 Temp 37.1 ??C (98.7 ??F) (Temporal) Resp 18 Ht 1.676 m (66 ) Wt 77.6 kg (171 lb) SpO2 98% BMI 27.60 kg/m?? Smoking Status Every Day BSA 1.87 m?? General: NAD, calm, cooperative Cardio: RRR Resp: no respiratory distress Abd: Soft, non-tender, non-distended Ext: No edema Neuro: AAOx3, no focal deficits MSK: Good ROM, no deformity MEDICAL DECISION MAKING: Patient presents today for knee pain, back pain Vital signs reviewed On initial evaluation, patient is in nad Physical exam notable for pain. Differential diagnosis: Sprain, strain Doubt fracture given mechanism and ambulatory without significant pain. Initial Plan: Based on the patient's presentation today, we will discharge with pain medication. Social determinants of health considered including housing follow-up social and financial support Please see ED course for my interpretation of lab results and imaging which I independently reviewed. Updates in patient care also noted accordingly. EMERGENCY DEPARTMENT COURSE AND TREATMENT: Available prior records were reviewed. Patient history and allergies reviewed. Nursing note reviewed. The diagnostic results contained in this document reflect the information available to the physician at the time of the patient encounter. Final results, when completed, will be found in the patient's hospital chart. Medications - No data to display Clinical Impressions as of 11/16/24308 Chronic right-sided low back pain without sciatica Procedures Salena Harrington MD 11/16/24308 documented in this encounter Plan of Treatment Not on file documented as of this encounter Visit Diagnoses Diagnosis Chronic right-sided low back pain without sciatica- Primary documented in this encounter Discontinued Medications Medication Sig Discontinue Reason Start Date End Da te cyclobenzaprine (FLEXERIL) 10 mg tablet Take 1 tablet (10 mg total) by mouth 2 (two) times a day if needed for muscle spasms for up to 10 days. Reorder 08/18/2024 11/16/2024 naproxen (NAPROSYN) 375 mg tablet Take 1 tablet (375 mg total) by mouth 2 (two) times a day with meals for 10 days. Reorder 11/03/2024 11/16/2024 documented as of this encounter Care Teams Sticker Machine Operator Relationship Specialty Start Date End Date Yoel Parrish MD [address] [place] [phone] PCP - General Internal Medicine 01/27/24 documented as of this encounter
--- OUTSIDE RECORDS SUMMARY | 2024-11-18 00:11 | XMS_ITS | Encounter Summary ---
Author Organization [employer] Address [address] [place] [address] Care Team Providers Care Golf Cart Attendant Name Role Phone Yoel Parrish MD Primary Care Provider [phone] Reason for Visit * Reason Comments Suicidal Suicidal thoughts. States I want to cut my neck Encounter Details Date Type Department Care Team ([facility] st Contact Info) Description 11/18/2024 12:11 AM EDT - 11/18/2024 11:48 AM EDT Emergency Emergency [address] [place] [address] Pilar Landeros MD [address] [place] [address] Marlin Fay MD [address] [place] [address] Suicidal ideation (Primary Dx); Emotional crisis, acute reaction to stress; Hyperglycemia Discharge Disposition: Home or Self Care Social [...] Record ed Within the last 3 months, adria chappell many times did you visit the emergency [...] for your loved ones. For example, child development assistant or elderly care for an older [...] Sign Reading Time Taken Comments Blood Pressure 138/84 11/18/2024 8:33 AM EDT Pulse 66 11/18/2024 8:33 AM EDT Temperature 36.5 C (97.7 F) 11/18/2024 8:33 AM EDT Respiratory Rate 18 11/18/2024 8:33 AM EDT Oxygen Saturation 97% 11/18/2024 8:33 AM EDT Inhaled Oxygen Concentration - - Weight 77.6 kg (171 lb) 11/18/2024 12:08 AM EDT Height 170.2 cm (5' 7 ) 11/18/2024 12:08 AM EDT Body Mass Index 26.78 11/18/2024 12:08 AM EDT documented in this encounter Functional Status * Are you deaf or do you have serious difficulty hearing? Answer Date of Assessment Author No 11/18/2024 12:55 AM EDT Shelby Roman RN * Are you blind or do you have serious difficulty seeing, even when wearing glasses? Answer Date of Assessment Author No 11/18/2024 12:55 AM EDT Shelby Roman RN * Do you have serious difficulty walking or climbing stairs? Answer Date of Assessment Author No 11/18/2024 12:55 AM EDT Shelby Roman RN * Do you have serious difficulty dressing or bathing? Answer Date of Assessment Author No 11/18/2024 12:55 AM EDT Shelby Roman RN * Because of a physical, mental, or emotional condition, do you have serious difficulty doing errandsalone such as visiting the doctor? Answer Date of Assessment Author No 11/18/2024 12:55 AM EDT Shelby Roman RN documented as of this encounter Mental Status * Because of a physical, mental, or emotional condition, do you have serious difficulty concentrating, remembering, or making decisions? (5 years old or older) Answer Entry Date Author No 11/18/2024 12:55 AM EDT Shelby Roman RN documented in this encounter Discharge Instructions * Discharge Instructions* Marlin Fay MD - 11/18/2024 11:11 AM EDT You were seen in the emergency department for suicidal thoughts. You had an exam, lab work, and evaluation by our crisis team. This showed high blood sugar for which you were treated with your home metformin and insulin. Your evaluation did not show anything worrisome that would require you to be admitted to the hospital today and the crisis team felt it was safe for you to go home. As discussed,please follow-up with N today, their contact information is attached. Please follow-up with your primary care physician within the next few days. Please return to the emergency department any new or worsening symptoms. documented in this encounter Medications at Time [...] needed. 04/04/2024 documented as of this encounter Discharge Disposition Disposition Code Departure Means Destination Comment s Home or Self Care documented in this encounter Progress Notes * Marlin Fay MD - 11/18/2024 11:10 AM EDT Andreas Conway ED Course as of 11/18/24 1111 ThuNov 18, 2024 0437 SO from ABHINAV Mora: Crisis eval for SI with plan to slit his throat [EK] 0643 No acute needs during my shift. Patient's care was handed over to the oncoming provider. [EK] [address] Landeros: chronic threats of self-harm by slitting his throat, here for same, incidentally found to have hyperglycemia to 300, labs otherwise WNL, I will have RN re-check and push oral fluids as he cannot have IV, per chart unclear if pt on metformin vs insulin, RN to check currentuse, pending crisis eval [RG] 0735 Per RN pt states takes insulin and metformin, BS now 260, will have med rec done, also wants his home trazodone but reportedly smashed his pills on arrival last night [RG] 0947 Home insulin, metformin, trazodone ordered. [RG] 0959 Per crisis patient cleared from their perspective [RG] 1059 Per RN pt given insulin 10u after eating per sliding scale due to now in 300s, 30 min after isulin is 361, will have patient PO fluids and re-check [RG] 1109 Per RN pt prefers to go home and manage his glucose there. Feel this is reasonable given that his BS will be elevated for sometime given that he ate before getting insulin or re-check. Patient was discharged with home care instructions, outpatient follow-up plan, and return precautions. [RG] ED Course User Index [EK] Pilar Landeros MD [RG] Marlin Fay MD Clinical Impressions as of 11/18/24 1111 Suicidal ideation Emotional crisis, acute reaction to stress Hyperglycemia * Yvette Escoto RN - 11/18/2024 7:41 AM EDT Pts POC checked and was 268. Pt given 2 glasses of water. While this was happening, pt insisted theRN from last night refused to give him his trazadone and smashed it all right over there . Informed pt that his medications were locked in the pharmacy med closet. Pt still insisting his trazadone was destroyed. * Pilar Landeros MD - 11/18/2024 4:38 AM EDT Andreas Conway This patient's care was signed out to me by the offgoing provider. Please see her/his note for further details regarding initial presentation, history of present illness, physical exam, and medical decision making. At time of signout, the following was pending: ED Course as of 11/18/24 0644 ThuNov 18, 2024 0437 SO from ABHINAV Mora: Crisis eval for SI with plan to slit his throat [EK] 0643 No acute needs during my shift. Patient's care was handed over to the oncoming provider. [EK] ED Course User Index [EK] Pilar Landeros MD Clinical Impressions as of 11/18/24 0644 Suicidal ideation Emotional crisis, acute reaction to stress No orders to display Labs Reviewed COMPREHENSIVE METABOLIC PANEL - Abnormal Result Value Sodium 145 Potassium 4.2 Chloride 107 CO2 26 Anion Gap 12 (*) Glucose 297 (*) BUN 19 Creatinine 1.21 eGFR 69 BUN/Creatinine Ratio 15.7 Calcium 8.9 AST (SGOT) 33 ALT (SGPT) 56 Alkaline Phosphatase 93 Total Protein 7.9 Albumin 4.1 Total Bilirubin 0.3 ACETAMINOPHEN LEVEL - Abnormal Acetaminophen Level <2.0 (*) SALICYLATE LEVEL - Abnormal Salicylate Level <1.7 (*) CBC WITH AUTO DIFFERENTIAL - Abnormal WBC 7.3 RBC 4.60 Hemoglobin 12.7 (*) Hematocrit 39.5 (*) MCV 85.1 MCH 27.4 MCHC 32.2 RDW 14.6 Platelets 270 MPV 10.8 NRBC 0.0 NRBC Absolute 0.00 Neutrophils Relative 56.4 Lymphocytes Relative 27.4 Monocytes Relative 13.8 Eosinophils Relative 1.4 Basophils Relative 0.7 Immature Granulocytes Relative 0.3 Neutrophils Absolute 4.11 Lymphocytes Absolute 1.99 Monocytes Absolute 1.00 Eosinophils Absolute 0.10 Basophils Absolute 0.05 Immature Granulocytes Absolute 0.02 ETHANOL - Normal Ethanol Level 4 DRUG ABUSE SCREEN 8A PANEL, URINE - Normal Amphetamine Screen, Ur Negative Barbiturate Screen, Ur Negative Benzodiazepine Screen, Ur Negative Cocaine Screen, Ur Negative Opiate Screen, Ur Negative Cannabinoid (THC) Screen, Ur Negative Oxycodone Screen, Ur Negative Fentanyl, Ur Negative Narrative: Assay cutoffs: Amphetamines 1000 ng/mL Barbiturates 200 ng/mL Benzodiazepines 200 ng/mL Cocaine 300 ng/mL Fentanyl 1 ng/mL Opiates 300 ng/mL Oxycodone 100 ng/mL THC 50 ng/mL Semi-quantitative assay for screening purposes only. Unconfirmed screening result should not be used for non-medical purposes. *ALTERNATE METHOD CONFIRMATION DONE UPON REQUEST ONLY* BUPRENORPHINE SCREEN, URINE - Normal Buprenorphine Screen Urine Negative Narrative: Assay cutoff 5 ng/mL Semi-quantitative assay for screening purposes only. Unconfirmed screening result should not be used for non-medical purposes. *ALTERNATE METHOD CONFIRMATION DONE UPON REQUEST ONLY* PHENCYCLIDINE, URINE - Normal PCP Scrn, Ur Negative METHADONE SCREEN, URINE - Normal Methadone Screen, Urine Negative CBC AND DIFFERENTIAL Narrative: The following orders were created for panel order CBC and differential. Procedure Abnormality Status --------- ------ CBC auto differential[[id number]] Abnormal Final result Please view results for these tests on the individual orders. Clinical Impression(s): Final diagnoses: [R45.851] Suicidal ideation [F43.0] Emotional crisis, acute reaction to stress Data Unavailable Previous Medications ALBUTEROL HFA (PROAIR HFA ; PROVENTIL HFA ; VENTOLIN HFA) 90 MCG/ACTUATION INHALER Inhale 2 puffs by mouth every 6 (six) hours if needed. ASPIRIN 81 MG EC TABLET Take 1 tablet (81 mg total) by mouth 1 (one) time each day. ATORVASTATIN (LIPITOR) 20 MG TABLET Take 2 tablets (40 mg total) by mouth daily. CYCLOBENZAPRINE (FLEXERIL) 10 MG TABLET Take 1 tablet (10 mg total) by mouth 3 (three) times a day if needed for muscle spasms for up to 10 days. CYCLOBENZAPRINE (FLEXERIL) 10 MG TABLET Take 1 tablet (10 mg total) by mouth 2 (two) times a day ifneeded for muscle spasms for up to 10 days. DOCUSATE SODIUM (COLACE) 100 MG CAPSULE Take 1 capsule (100 mg total) by mouth every 12 (twelve) hours. GABAPENTIN (NEURONTIN) 300 MG CAPSULE Take 1 capsule (300 mg total) by mouth 2 (two) times a day. HYDROXYZINE HCL (ATARAX) 25 MG TABLET Take 1 tablet (25 mg total) by mouth every 6 (six) hours for 3 days. HYDROXYZINE PAMOATE (VISTARIL) 50 MG CAPSULE Take 1 capsule (50 mg total) by mouth 4 (four) times aday if needed for itching. INSULIN LISPRO SUBQ Inject 1 Units under the skin 3 (three) times a day before meals. 70-149= 0 units 150-199= 2 units 200-249= 4 units 250-299= 6units 300-349= 8 units 350-399= 10 units Greater than 400 notify LACTOBACILLUS ACIDOPHILUS 100 MG (1 BILLION CELL) CAPSULE Take 1 capsule by mouth 2 (two) times a day. MELATONIN 10 MG TABLET Take 1 tablet (10 mg total) by mouth at bedtime as needed for sleep. at bedtime METFORMIN (FORTAMET) 1,000 MG 24 HR TABLET Take 1 tablet (1,000 mg total) by mouth 1 (one) time each day with dinner. Do not crush, chew, or split. MIRTAZAPINE (REMERON) 15 MG TABLET Take 1 tablet (15 mg total) by mouth at bedtime. NAPROXEN (NAPROSYN) 375 MG TABLET Take 1 tablet (375 mg total) by mouth 2 (two) times a day with meals for 10 days. NICOTINE POLACRILEX (NICORETTE) [address] 1 each (2 mg total) into mouth between cheek and gumevery 2 (two) hours if needed. PANTOPRAZOLE (PROTONIX) 40 MG EC TABLET Take 1 tablet (40 mg total) by mouth 1 (one) time each day before breakfast. PAROXETINE (PAXIL) 30 MG TABLET Take 1 tablet (30 mg total) by mouth 1 (one) time each day in the morning. QUETIAPINE (SEROQUEL) 400 MG TABLET Take 1 tablet (400 mg total) by mouth at bedtime. QUETIAPINE 150 MG TABLET Take 150 mg by mouth 1 (one) time each day. SITAGLIPTIN PHOSPHATE (JANUVIA) 100 MG TABLET Take 1 tablet (100 mg total) by mouth 1 (one) time each day. TRAZODONE (DESYREL) 50 MG TABLET Take by mouth at bedtime as needed. * Hannah Burnham RN - 11/18/2024 12:09 AM EDT PT ARRIVES STEADY GAIT, PT STATES HE IS SUICIDAL, STATES HE WANTS TO CUT HIS THROAT, PT DENIES ANY MEDICAL CONCERNS, STATES HE WANTS SOMEONE TO TALK TO USES TOBACCO ,NO WEED * ABHINAV North - 11/18/2024 12:04 AM EDT HPI Chief Complaint Patient presents with Suicidal Suicidal thoughts. States I want to cut my neck Patient 59-year-old gentleman past medical history of bipolar disorder diabetes hypertension arthritis recurrent suicidal ideation presents the emergency department today stating he wants to cut his neck secondary to home stress with his spouse. He denies fevers chills systemic symptoms. 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: Patient sports trainer used: No CIWA-Ar Total: 0 Clinical Opiate Withdrawal Scale Total Score: 1 Blu Coma Scale Score: 15 Patient History Past Medical History: Diagnosis Date Arthritis Bipolar 2 disorder ([facility] V24, [facility] V28) Depression [facility] mellitus ([facility] V24, [facility] V28) Hypertension No past surgical history on file. No family history on file. Social History Tobacco Use Smoking status: Every Day Types: Cigarettes Smokeless tobacco: Never Substance Use Topics Alcohol use: Yes Drug use: Never Review of Systems Review of Systems All other systems reviewed and are negative. Physical Exam ED Triage Vitals [11/18/24 0008] Temp Heart Rate Resp BP 37.1 ??C (98.7 ??F) 90 18 (!) 136/96 SpO2 Temp Source Heart Rate Source Patient Position 99 % Temporal -- Sitting BP Location FiO2 (%) -- -- Physical Exam Vitals and nursing note reviewed. Constitutional: Appearance: Normal appearance. Comments: Has packed duffel bag, clean well appropriate clothing HENT: Head: Normocephalic and atraumatic. Cardiovascular: Rate and Rhythm: Normal rate and regular rhythm. Pulses: Normal pulses. Heart sounds: Normal heart sounds. Pulmonary: Effort: Pulmonary effort is normal. Breath sounds: Normal breath sounds. Musculoskeletal: General: Normal range of motion. Cervical back: Normal range of motion and neck supple. Skin: General: Skin is warm and dry. Capillary Refill: Capillary refill takes less than 2 seconds. Neurological: General: No focal deficit present. Mental Status: He is alert. Psychiatric: Comments: Agitated ED Course & MDM Clinical Impressions as of 11/18/24 0129 Suicidal ideation Emotional crisis, acute reaction to stress Medical Decision Making Differential diagnosis suicidal ideation psychosis, ingestion Co. ingestion intoxication. Patient hypertensive afebrile hemodynamically stable well-appearing. Patient without acute distress. No evidence suggestive of intoxication he is ambulatory without assistance. No evidence suggestiveof withdrawal. No perspiration tremor. Will rule out emergent medical condition and consult crisis.Patient is well- known with recurrent suicidal ideation. He states he is unsure of his last psych admission. Procedures ABHINAV North 11/18/24 0042 ABHINAV North 11/18/24 0129 Cosigned by Pilar Landeros MD at 11/18/2024 5:01 AM EDT Associated attestation - Pliar Landeros MD - 11/18/2024 5:01 AM EDT I was available for consult in real time on shift and if asked my input in care is as outlined by the documentation below by me. If not documented, then I did not participate in the care of this patient and have reviewed the chart as written. Pilar Landeros MD documented in this encounter Consult Notes * Audrey Conley, [facility] - 11/18/2024 10:08 AM EDTAssociated Order(s): IP CONSULT TO HAIR WORKER Images from the original note were not included. Behavior[facility] - Crisis Assessment Important times Time of arrival: 0004 Time of referral: 0129 Time of readiness: 0135 Time assessment started: 0900 Time of disposition: 1000 Location: [facility] ED Consulted case with: Cassandra Llamas LCSW Insurance information: Insurance: [id number] Insurance ID: [facility] Verified by: Cassandra Llamas Reason for Consultation / Presenting Problem: Andreas Conway is being seen today for a consultive service at the request of Marlin Fay MD to assess risk and identify appropriate level of care. Patient arrived at the ER stating SI thoughts with a plan I want to cut my neck History of Present Illness: Andreas is a 59 y.o. male with Chief Complaint Patient presents with Suicidal Suicidal thoughts. States I want to cut my neck Social/Educational History: Guardian - if Yes, provide contact information: NA Status: NA State Agency Involvement: JEWELL Ledesmaer's Order: NA Marital Status: Alternative Placement Details: NA Living Situation for patient: Homeless Long-Term in [facility] Household Members/Age: spouse Friendships/Family/Social Peer Support/Relationships: Children (Son and Daughter), Younger brother and Sister Highest level of education: High School Comments (Include Learning Needs): None reported Occupation: Unemployed/Disability Employment/Extracurricular Activities/Hobbies: Non reported Limitations of Daily Activities: NA Strengths/Supports: Patient reports that family have been supportive of him, he can advocate for his own needs. Collaterals, contact information, and engagement level: Therapist: No currently Psychiatrist: No currently PCP: Yoel Parrish MD Family: Children and siblings, patient reported that he sees them/talks to them semi regularly. Other: NA Mental Status Speech: WNL Eye Contact: WNL Motor Activity: WNL Mood: WNL Affect: Appropriate Sleep: WNL Appetite: WNL Memory: WNL Attention / Concentration: WNL Behavior: Cooperative and Calm Appearance: Andreas was in hospital attire and appeared to be well groomed. Hallucinations: None Delusions: None Thought Content: WNL SI: Denied Past SI HI: Denied Thought Process: WNL Orientation Impairment: None Insight: WNL Judgment: WNL Impulse Control: WNL Substance Use History (Including family history): Patient reported that he has past history of Cocaine use for 10 years. Patient reports that he has been sober for 9 months and 3 weeks. No family HX of substance use was reported. Utox Results: Tox clear BAL 4 Substance Use Treatment History: [facility] 5 years ago Mental Health Treatment History: Outpatient Mental Health Treatment: Non reported Previous or Current Psychological Diagnosis: Severe Anxiety, Depression, PTSD and Bipolar disorder Prior Psychiatric Hospitalizations/Residential Treatment Facilities: [facility]2 years ago Other Comments Regarding Mental Health Treatment History: NA Mental Health Concerns in Family: None reported Trauma History: Non reported Medications: Scheduled Meds: insulin lispro, 4 Units, subcutaneous, Once metFORMIN XR, 1,000 mg, oral, Daily traZODone, 50 mg, oral, Nightly Continuous Infusions: PRN Meds: NA Risk Assessment: Self-Harm: None Suicidal Behavior: Past Patients has reported past SI thoughts. Homicidal Behavior: None Physical Assault: None Physical Aggression: None Property Damage: None Verbal Aggression: None Family history of suicide: None reported Protective Factors: Help seeking Currently taking meds Family supports Risk Factors: Frequent ER visits Homeless (living in [facility]) No current providers Suicide Risk: Based on patient's history and current presentation, their level of risk for intentional lethal harm is considered Low. Safety Plan Completed: no NA Interventions: Active Listening, Empathetic listening, risk assessment, record review, collaboration with ED provider, resource education with materials provided for outpatient treatment. Response to interventions: Patient was engaging, open to answering questions and receiving resources. DSM-5TR Diagnosis: F32 Unspecified Depressed Disorder Plan: Patient does not meet criteria for voluntary or involuntary inpatient psychiatric hospitalization at this time. He would benefit most from discharging back to the community. He denies current suicidal ideation and noted he said that when he was upset in the moment after an argument. Has a plan to return to [facility] after discharged and is wanting to place self referrals for therapy. Recommendations were discussed with requesting provider. It was a pleasure to assist Andreas Conway here at . This report is written and finalized by: Raji Jin MSW phd internship Under the supervision of ROSANNA [facility] Clinical Business Administration Teacher [facility] (Tel): [phone] / : [phone] documented in this encounter Plan of Treatment Not on file documented as of this encounter Procedures Procedure Name Priority Date/Time Associated Diagnosis Comments POCT GLUCOSE BLOOD Routine 11/18/2024 11 :37 AM EDT POCT GLUCOSE BLOOD Routine 11/18/2024 10 :49 AM EDT POCT GLUCOSE BLOOD Routine 11/18/2024 10 :01 AM EDT POCT GLUCOSE BLOOD Routine 11/18/2024 7: 34 AM EDT DRUG ABUSE SCREEN 8A PANEL, URINE STAT 11/18/2024 12:35 AM EDT BUPRENORPHINE SCREEN, URINE STAT 11/18/2024 12:35 AM EDT METHADONE SCREEN, URINE STAT 11/18/2024 12:35 AM EDT CBC WITH AUTO DIFFERENTIAL STAT 11/18/2024 12:35 AM EDT PHENCYCLIDINE, URINE STAT 11/18/2024 12:35 AM EDT CBC AND DIFFERENTIAL STAT 11/18/2024 12:35 AM EDT ETHANOL STAT 11/18/2024 12:35 AM EDT ACETAMINOPHEN LEVEL STAT 11/18/2024 1 2:35 AM EDT SALICYLATE LEVEL STAT 11/18/2024 12:3 5 AM EDT COMPREHENSIVE METABOLIC PANEL STAT 11/18/2024 12:35 AM EDT documented in this encounter Results * (ABNORMAL) POCT Glucose, blood (11/18/2024 11:37 AM EDT) [facility] Glucose POCT 267(H) 70 - 100 mg/dL 11/18/2024 11:37 AM EDT [facility] Blood Capillary blood specimen / Unknown 11/18/2024 11:37 AM EDT 11/18/2024 11:39 AM EDT us Marlin Fay MD LAB POINT OF CARE TE ST DOCKED DEVICE UNSOLICITED RESULTS Final Result [facility] [address] [place] [address], [place] [phone] * (ABNORMAL) POCT Glucose, blood (11/18/2024 10:49 AM EDT) Glucose POCT 361(H) 70 - 100 mg/dL 11/18/2024 10:50 AM EDT [facility] Blood Capillary blood specimen / Unknown 11/18/2024 10:49 AM EDT 11/18/2024 10:51 AM EDT us Marlin Fay MD LAB POINT OF CARE TE ST DOCKED DEVICE UNSOLICITED RESULTS Final Result Performing Organization Address [facility]/ZIP Co de Phone Number [facility] [address] [place] [address], [place] [phone] * (ABNORMAL) POCT Glucose, blood (11/18/2024 10:01 AM EDT) Glucose POCT 389(H) 70 - 100 mg/dL 11/18/2024 10:03 AM EDT [facility] Blood Capillary blood specimen / Unknown 11/18/2024 10:01 AM EDT 11/18/2024 10:04 AM EDT us Marlin Fay MD LAB POINT OF CARE TE ST DOCKED DEVICE UNSOLICITED RESULTS Final Result Performing Organization Address [facility]/ZIP Co de Phone Number [facility] [address] [place] [address], [place] [phone] * (ABNORMAL) POCT Glucose, blood (11/18/2024 7:34 AM EDT) Glucose POCT 268(H) 70 - 100 mg/dL 11/18/2024 7:34 AM EDT [facility] Blood Capillary blood specimen / Unknown 11/18/2024 7:34 AM EDT 11/18/2024 7:36 AM EDT us Marlin Fay MD LAB POINT OF CARE TE ST DOCKED DEVICE UNSOLICITED RESULTS Final Result [facility] [address] [place] [address], * (ABNORMAL) CBC auto differential (11/18/2024 12:35 AM EDT) [facility] Signature WBC 7.3 4.8 - 10.8 K/mcL LAB HEMETOLOGY METHOD 11/18/2024 3:27 AM EDT [facility] RBC 4.60 4.50 - 5.50 M/mcL LAB HEMETOLOGY METHOD 11/18/2024 3:27 AM EDT [facility] Hemoglobin 12.7(L) 13.5 - 17.5 g/dL LAB HEMETOLOGY METHOD 11/18/2024 3:27 AM EDT [facility] Hematocrit 39.5(L) 42.0 - 54.0 % LAB HEMETOLOGY METHOD 11/18/2024 3:27 AM EDT [facility] MCV 85.1 79.0 - 98.0 FL LAB HEMETOLOGY METHOD 11/18/2024 3:27 AM EDT [facility] MCH 27.4 27.0 - 32.0 pcg LAB HEMETOLOGY METHOD 11/18/2024 3:[facility] MCHC 32.2 32.0 - 37.0 g/dL LAB HEMETOLOGY METHOD 11/18/2024 3:27 AM EDT [facility] RDW 14.6 11.0 - 15.0 % LAB HEMETOLOGY METHOD 11/18/2024 3:27 AM EDT [facility] Platelets 270 130 - 400 K/mcL LAB HEMETOLOGY METHOD 11/18/2024 3:27 AM EDT [facility] MPV 10.8 7.0 - 11.0 FL LAB HEMETOLOGY METHOD 11/18/2024 3:27 AM EDT [facility] NRBC 0.0 <1.0 % LAB HEMETOLOGY METHOD 11/18/2024 3:27 AM [facility] NRBC Absolute 0.00 <0.10 K/mcL LAB HEMETOLOGY METHOD 11/18/2024 3:27 AM [facility] Neutrophils Relative 56.4 % LAB HEMETOLOGY METHOD 11/18/2024 3:27 AM [facility] Lymphocytes Relative 27.4 % LAB HEMETOLOGY METHOD 11/18/2024 3:27 AM [facility] Monocytes Relative 13.8 % LAB HEMETOLOGY METHOD 11/18/2024 3:27 AM [facility] Eosinophils Relative 1.4 % LAB HEMETOLOGY METHOD 11/18/2024 3:27 AM [facility] Basophils Relative 0.7 % LAB HEMETOLOGY METHOD 11/18/2024 3:27 AM [facility] Immature Granulocytes Relative 0.3 % LAB HEMETOLOGY METHOD 11/18/2024 3:27 AM [facility] Neutrophils Absolute 4.11 1.50 - 7.00 K/mcL LAB HEMETOLOGY METHOD 11/18/2024 3:27 AM [facility] Lymphocytes Absolute 1.99 1.00 - 5.00 K/mcL LAB HEMETOLOGY METHOD 11/18/2024 3:27 AM [facility] Monocytes Absolute 1.00 0.20 - 1.00 K/mcL LAB HEMETOLOGY METHOD 11/18/2024 3:27 AM [facility] Eosinophils Absolute 0.10 0.00 - 0.50 K/mcL LAB HEMETOLOGY METHOD 11/18/2024 3:27 AM [facility] Basophils Absolute 0.05 0.00 - 0.20 K/mcL LAB HEMETOLOGY METHOD 11/18/2024 3:27 AM [facility] Immature Granulocytes Absolute 0.02 0.00 - 0.03 K/mcL LAB HEMETOLOGY METHOD 11/18/2024 3:27 AM EDT [facility] Blood Venous blood specimen / Unknown Venipuncture / Unknown 11/18/2024 12:35 AM EDT 11/18/2024 3:18 AM EDT [facility] BLOOD ORDERABLES Fin al Result Performing Organization Address [facility] de Phone Number [facility] [address] [place] [address], [place] [phone] * Methadone, urine (11/18/2024 12:35 AM EDT) Methadone Screen, Urine Negative Negative LAB CHEMISTRY METHOD 11/18/2024 3:52 AM EDT [facility] Comment: Assay cutoff 300 ng/mL Semi-quantitative assay for screening purposes only. Unconfirmed screening result should not be used for non-medical purposes. *ALTERNATE METHOD CONFIRMATION DONE UPON REQUEST ONLY* Urine Urine specimen obtained by clean catch procedure / Unknown Non-blood Collection / Unknown 11/18/2024 12:35 AM EDT 11/18/2024 3:18 AM EDT [facility] URINE ORDERABLES Fin al Result Performing Organization Address City/[facility]/ZIP Co de Phone Number [facility] [address] [place] [address], [place] [phone] * Phencyclidine, urine (11/18/2024 12:35 AM EDT) PCP Scrn, Ur Negative Negative LAB CHEMISTRY METHOD 11/18/2024 3:52 AM EDT [facility] Comment: Assay cutoff 25 ng/mL Semi-quantitative assay for screening purposes only. Unconfirmed screening result should not be used for non-medical purposes. *ALTERNATE METHOD CONFIRMATION DONE UPON REQUEST ONLY* Urine Urine specimen obtained by clean catch procedure / Unknown Non-blood Collection / Unknown 11/18/2024 12:35 AM EDT 11/18/2024 3:18 AM EDT [facility] URINE ORDERABLES Fin al Result Performing Organization Address [facility]/ZIP Co de Phone Number [facility] [address] [place] [address], * Buprenorphine screen, urine (11/18/2024 12:35 AM EDT) Buprenorphine Screen Urine Negative Negative LAB CHEMISTRY METHOD 11/18/2024 3:52 AM EDT [facility] Urine Urine specimen obtained by clean catch procedure / Unknown Non-blood Collection / Unknown 11/18/2024 12:35 AM EDT 11/18/2024 3:18 AM EDT Narrative [facility] - 11/18/2024 3:52 AM EDT Assay cutoff 5 ng/mL Semi-quantitative assay for screening purposes only. Unconfirmed screening result should not be used for non-medical purposes. *ALTERNATE METHOD CONFIRMATION DONE UPON REQUEST ONLY* [facility] URINE ORDERABLES Fin al Result Performing Organization Address [facility] de Phone Number [facility] [address] [place] [address], * Drug abuse screen 8a panel, urine (11/18/2024 12:35 AM EDT) Amphetamine Screen, Ur Negative Negative LAB CHEMISTRY METHOD 11/18/2024 5:49 AM EDT [facility] Comment:Certain OTC medicati ons containing ephedrine, phenylephrine, pseudoephedrine and phenylpropanolamine can cause false positive results. Barbiturate Screen, Ur Negative Negative LAB CHEMISTRY METHOD 11/18/2024 5:49 AM EDT [facility] Benzodiazepine Screen, Ur Negative Negative LAB CHEMISTRY METHOD 11/18/2024 5:49 AM EDT [facility] Cocaine Screen, Ur Negative Negative LAB CHEMISTRY METHOD 11/18/2024 5:49 AM EDT [facility] Opiate Screen, Ur Negative Negative LAB CHEMISTRY METHOD 11/18/2024 5:49 AM T [facility] Cannabinoid (THC) Screen, Ur Negative Negative LAB CHEMISTRY METHOD 11/18/2024 5:49 AM EDT [facility] Comment:Specimens from patie nts taking pantoprazole sodium (Protonix) have been shown to produce false positive results. Oxycodone Screen, Ur Negative Negative LAB CHEMISTRY METHOD 11/18/2024 5:49 AM EDT [facility] Fentanyl, Ur Negative Negative LAB CHEMISTRY METHOD 11/18/2024 5:49 AM [facility] Urine Urine specimen obtained by clean catch procedure / Unknown Non-blood Collection / Unknown 11/18/2024 12:35 AM EDT 11/18/2024 3:18 AM EDT Narrative [facility] - 11/18/2024 5:49 AM EDT Assay cutoffs: Amphetamines 1000 ng/mL Barbiturates 200 ng/mL Benzodiazepines 200 ng/mL Cocaine 300 ng/mL Fentanyl 1 ng/mL Opiates 300 ng/mL Oxycodone 100 ng/mL THC 50 ng/mL Semi-quantitative assay for screening purposes only. Unconfirmed screening result should not be used for non-medical purposes. *ALTERNATE METHOD CONFIRMATION DONE UPON REQUEST ONLY* us [facility] URINE ORDERABLES Fin al Result [facility] [address] [place] [address], * (ABNORMAL) Salicylate level (11/18/2024 12:35 AM EDT) Salicylate Level <1.7(L) 2.0 - 29.0 mg/dL LAB CHEMISTRY METHOD 11/18/2024 3:50 AM EDT [facility] Blood Venous blood specimen / Unknown Venipuncture / Unknown 11/18/2024 12:35 AM EDT 11/18/2024 3:19 AM EDT [facility] BLOOD ORDERABLES Fin al Result Performing Organization Address [facility] de Phone Number [facility] [address] [place] [address], [place] [phone] * (ABNORMAL) Acetaminophen level (11/18/2024 12:35 AM EDT) Acetaminophen Level <2.0(L) 10.0 - 30.0 mcg/mL LAB CHEMISTRY METHOD 11/18/2024 4:02 AM EDT [facility] Blood Venous blood specimen / Unknown Venipuncture / Unknown 11/18/2024 12:35 AM EDT 11/18/2024 3:19 AM EDT [facility] BLOOD ORDERABLES Fin al Result Performing Organization Address [facility] de Phone Number [facility] [address] [place] [address], [place] [phone] * Ethanol (11/18/2024 12:35 AM EDT) Ethanol Level 4 0 - 10 mg/dL LAB CHEMISTRY METHOD 11/18/2024 3:53 AM EDT [facility] Blood Venous blood specimen / Unknown Venipuncture / Unknown 11/18/2024 12:35 AM EDT 11/18/2024 3:19 AM EDT [facility] BLOOD ORDERABLES Fin al Result Performing Organization Address City/[facility]/ZIP Co de Phone Number [facility] [address] [place] [address], [place] [phone] * (ABNORMAL) Comprehensive metabolic panel (11/18/2024 12:35 AM EDT) Sodium 145 133 - 145 mmol/L LAB CHEMISTRY METHOD 11/18/2024 4:02 AM [facility] Potassium 4.2 3.5 - 5.5 mmol/L LAB CHEMISTRY METHOD 11/18/2024 4:02 AM [facility] Chloride 107 96 - 110 mmol/L LAB CHEMISTRY METHOD 11/18/2024 4:02 AM [facility] CO2 26 21 - 32 mmol/L LAB CHEMISTRY METHOD 11/18/2024 4:02 AM [facility] Anion Gap 12(H) 3 - 11 LAB CHEMISTRY METHOD 11/18/2024 4:02 AM [facility] Glucose 297(H) 70 - 100 mg/dL LAB CHEMISTRY METHOD 11/18/2024 4:02 AM [facility] BUN 19 5 - 25 mg/dL LAB CHEMISTRY METHOD 11/18/2024 4:02 AM [facility] Creatinine 1.21 0.70 - 1.30 mg/dL LAB CHEMISTRY METHOD 11/18/2024 4:02 AM [facility] eGFR 69 >=60 mL/min/1. 73m2 LAB CHEMISTRY METHOD 11/18/2024 4:02 AM [facility] Comment:Calculation based on the Chronic Kidney Disease Epidemiology Collaboration (CKD-EPI) equation refit without adjustment for race. BUN/Creatinine Ratio 15.7 LAB CHEMISTRY METHOD 11/18/2024 4:02 AM [facility] Calcium 8.9 8.5 - 10.5 mg/dL LAB CHEMISTRY METHOD 11/18/2024 4:02 AM [facility] AST (SGOT) 33 10 - 42 unit/L LAB CHEMISTRY METHOD 11/18/2024 4:02 AM EDT [facility] ALT (SGPT) 56 10 - 60 unit/L LAB CHEMISTRY METHOD 11/18/2024 4:02 AM EDT [facility] Alkaline Phosphatase 93 42 - 121 unit/L LAB CHEMISTRY METHOD 11/18/2024 4:02 AM EDT [facility] Total Protein 7.9 6.0 - 8.0 g/dL LAB CHEMISTRY METHOD 11/18/2024 4:02 AM EDT [facility] Albumin 4.1 3.2 - 5.0 g/dL LAB CHEMISTRY METHOD 11/18/2024 4:02 AM EDT [facility] Total Bilirubin 0.3 0.0 - 1.4 mg/dL LAB CHEMISTRY METHOD 11/18/2024 4:02 AM EDT [facility] Blood Venous blood specimen / Unknown Venipuncture / Unknown 11/18/2024 12:35 AM EDT 11/18/2024 3:19 AM EDT [facility] BLOOD ORDERABLES Fin al Result [facility] [address] [place] [address], documented in this encounter Visit Diagnoses Diagnosis Suicidal ideation- Primary Emotional crisis, acute reaction to stress Hyperglycemia Other abnormal glucose documented in this encounter Administered Medications Inactive Administered Medications - up to 3 most recent administrations Medication Order MAR Action Action Date Dose Rate Site insulin lispro injection 10 Units 10 Units, subcutaneous, Once, On Thu11/18/24 at 1009, For 1 dose Given 11/18/2024 10:17 AM EDT 10 Units Right Upper Arm (Back) metFORMIN XR (GLUCOPHAGE-XR) 24 hr tablet 1,000 mg 1,000 mg, oral, Daily, First dose on Thu11/18/24 at 0947, Do not crush, chew, or split. Given 11/18/2024 10:00 AM EDT 1,000 mg documented in this encounter Active and Recently Administered Medications Times are shown in EDT. Scheduled Medication Order 11/16/2024 11/17/2024 11/18/2024 insulin lispro injection 10 Units (COMPLETED) 10 Units, subcutaneous, Once, On Thu11/18/24 at 1009, For 1 dose 1017 (Given - Provid er: Yvette Escoto RN) metFORMIN XR (GLUCOPHAGE-XR) 24 hr tablet 1,000 mg 1,000 mg, oral, Daily, First dose on Thu11/18/24 at 0947, Do not crush, chew, or split. 1000 (Given - Provid er: Yvette Escoto RN) traZODone (DESYREL) tablet 50 mg 50 mg, oral, Nightly, First dose on Thu11/18/24 at 2100 documented in this encounter Orders Medications Ordered That Ti ht Not Have Been Administered Count Last Ordered Date First Ordered Date insulin lispro injection 1 Units 1 11/19/19 insulin lispro injection 4 Units 11/19/19 traZODone (DESYREL) tablet 50 mg 1 11/19/19 25 Consult Count Last Ordered Date First Orde red Date IP CONSULT TO HAIR WORKER 11/18/2024 documented in this encounter Care Teams Golf Cart Attendant Relationship Specialty Start Date End Date Yoel Parrish MD [address] [place] [phone] PCP - General Internal Medicine 01/27/24 documented as of this encounter
--- OUTSIDE RECORDS SUMMARY | 2024-11-19 06:49 | XMS_ITS | Encounter Summary ---
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 Role Phone Yoel Parrish MD Primary Care Provider [phone] Reason for Visit * Reason Comments Abdominal Pain Encounter Details Date Type Department Care Team ([facility] st Contact Info) Description 11/19/2024 6:49 AM EDT - 11/19/2024 11:19 AM EDT Emergency Emergency [address] [place] [id number] Marlin Fay MD [address] [place] [address] Gastroparesis (Primary Dx); Gastroesophageal reflux disease with esophagitis without hemorrhage; LUQ pain; Nausea; Hyperglycemia due to diabetes mellitus (CMS/HCC V24, CMS/HCC V28); Poorly controlled diabetes mellitus (CMS/HCC V24, CMS/HCC V28) Discharge Disposition: Home or Self Care Social [...] ed Within the last 3 months, adria w many times did you visit the [...] care for your loved ones. For example, maternal child nurse or elderly care for an older adult? [...] Sign Reading Time Taken Comments Blood Pressure 110/89 11/19/2024 9:41 AM EDT Pulse 82 11/19/2024 9:41 AM EDT Temperature 36.4 C (97.5 F) 11/19/2024 9:41 AM EDT Respiratory Rate 18 11/19/2024 9:41 AM EDT Oxygen Saturation 100% 11/19/2024 9:41 AM EDT Inhaled Oxygen Concentration - - Weight 80.7 kg (178 lb) 11/19/2024 5:05 AM EDT Height 167.6 cm (5' 6 ) 11/19/2024 5:05 AM EDT Body Mass Index 28.73 11/19/2024 5:05 AM EDT documented in this encounter Functional [...] * Discharge Instructions* Marlin Fay MD - 11/19/2024 11:06 AM EDT You were seen in the emergency department for pain in left upper part of your belly as well as nausea and a bloating sensation. You had an exam, lab work, and CT scan of your belly. This did not showanything worrisome that would require you to be admitted to the hospital today. Your blood sugar was very high but there is no signs of DKA, your symptoms are likely due to acid reflux, esophagitis, possibly gastroparesis which is common with uncontrolled diabetes. You were treated with multiple medications for this and felt better. As discussed, continue to take omeprazole daily, avoid fatty, spicy, oily, acidic foods and follow-up with GI as soon as possible. You are prescribed lancets to check your blood sugar at home and nausea medicine. Please take your insulin and metformin as prescribed. Please follow-up with your primary care physician within the next few days. Please return to the emergency department any new or worsening symptoms. * Attachments The following attachments cannot be sent through Care Everywhere. * Diabetes: Testing Your Blood Sugar: Video (Congolese) * Diabetes: Type 2: General Info (Congolese) * Gastroparesis (Congolese) * Esophagitis (Congolese) * Acid Reducing Medicines: General Info (Congolese) * Nausea and Vomiting (Congolese) * Abdominal Pain (Congolese) documented in this encounter Medications at Time [...] up to 10 days. 15 tablet 09/02/2024 cyclobenzaprine (FLEXERIL) 10 mg tabletIndications:C hronic right-sided low back pain without sciatica Take 1 tablet (10 mg total) by mouth 2 (two) times a day if needed for muscle spasms for up to 10 days. 20 tablet 11/16/2024 5 docusate sodium (COLACE) 100 mg capsule Take 1 capsule (100 mg total) by mouth every 12 (twelve) hours. 60 capsule 10/24/2024 5 gabapentin (NEURONTIN) 300 mg capsule Take 1 capsule (300 mg total) by mouth 2 (two) times a day. 10/27/2023 hydrOXYzine HCL (ATARAX) 25 mg tabletIndications:A nxiety Take 1 tablet (25 mg total) by mouth every 6 (six) hours for 3 days. 12 tablet 10/31/2024 hydrOXYzine pamoate (VISTARIL) 50 mg capsule Take 1 capsule (50 mg total) by mouth 4 (four) times a day if needed for itching. INSULIN LISPRO SUBQIndications:darryl betes mellitus Inject 1 Units under the skin 3 (three) times a day before meals. 70-149= 0 units 150-199= 2 units 200-249= 4 units 250-299= 6units 300-349= 8 units 350-399= 10 units Greater than 400 notify Lactobacillus acidophilus 100 mg (1 billion cell) capsule Take 1 capsule by mouth 2 (two) times a day. 60 each 10/24/2024 5 lancets lancets Use as instructed 100 each 11/19/2024 6 melatonin 10 mg tablet Take 1 tablet [...] meals for 10 days. 20 tablet 11/16/2024 5 nicotine polacrilex (NICORETTE) [address] 1 each (2 mg total) into mouth between cheek and gum every 2 (two) hours if needed. 04/04/2024 ondansetron ODT (ZOFRAN-ODT) 4 mg disintegrating tablet Let 1 tablet dissolve under the tongue three times daily as needed for nausea or vomiting. 10 tablet 11/19/2024 5 pantoprazole (PROTONIX) 40 mg EC tablet Take [...] Refills Last Filled Start Date End Date lancets lancets Use as instructed 100 each 11/19/2024 6 ondansetron ODT (ZOFRAN-ODT) 4 mg disintegrating tablet Let 1 tablet dissolve under the tongue three times daily as needed for nausea or vomiting. 10 tablet 11/19/2024 5 documented in this encounter Discharge Disposition Disposition Code Departure Means Destination Comment s Home or Self Care documented in this encounter Progress Notes * Yvette Escoto RN - 11/19/2024 5:06 AM EDT Pt comes to ER with c/o upper abd pain and nausea x2 hours. Pt denies diarrhea. Pt a&ox4 ambulatory with steady gait in triage. * Marlin Fay MD - 11/19/2024 5:00 AM EDT HPI Chief Complaint Patient presents with Abdominal Pain Patient discharged yesterday after being seen for SI as well as uncontrolled diabetes, also with history of frequent ED visits, including in August for abdominal pain, HTN, back pain, bipolar disorder,[facility] notes showing that he has had multiple EGDs with biopsies, diagnosed with gastric regurgitation, H. pylori, and fatty liver, on docusate and omeprazole presents saying that he has had shooting pain in the left upper part of his belly for the last 3 hours that is currently 8/10 in severity,has been constant, and that he feels very bloated. Patient did not take any medication for this. Patient notes he has been nauseous but has not vomited, pain is worse with walking and is tender when he pushes on it. Patient states he does not think this is related to his usual abdominal pain although cannot describe any change in symptoms, then states that it is just worse than usual. Patient states that he thinks he is taking his medications for acid reflux but is not sure which one it is or how he takes it, though says he takes it once to twice a day as needed. Patient states he does not have lancets to check his blood sugar at home so has not been taking his insulin, last saw his primarycare doctor 3 months ago. Patient denies any polydipsia, polyuria, polyphasia, other urinary symptoms, fever, chest pain, shortness of breath although says that he has asthma and chronic difficulty breathing with exertion that is unchanged today. 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: No CIWA-Ar Total: 0 Clinical Opiate Withdrawal Scale Total Score: 1 Blu Coma Scale Score: 15 Patient History Past Medical History: Diagnosis Date Arthritis Bipolar 2 disorder ([facility] V24, [facility] V28[facility] Depression Diabetes mellitus ([facility] V24, [facility] V28) Hypertension No past surgical history on file. No family history on file. Social History Tobacco Use Smoking status: Every Day Types: Cigarettes Smokeless tobacco: Never Substance Use Topics Alcohol use: Yes Drug use: Never Review of Systems Review of Systems Physical Exam ED Triage Vitals [11/19/24 0505] Temp Heart Rate Resp BP 36.4 ??C (97.5 ??F) 100 18 (!) 107/95 SpO2 Temp Source Heart Rate Source Patient Position 100 % Oral Monitor Sitting BP Location FiO2 (%) Left arm -- Physical Exam Vitals and nursing note reviewed. Constitutional: General: He is not in acute distress. Appearance: Normal appearance. He is not ill-appearing. HENT: Mouth/Throat: Mouth: Mucous membranes are dry. Cardiovascular: Rate and Rhythm: Normal rate and regular rhythm. Heart sounds: Normal heart sounds. Pulmonary: Effort: Pulmonary effort is normal. Breath sounds: Normal breath sounds. Abdominal: Palpations: Abdomen is soft. Tenderness: There is generalized abdominal tenderness. Skin: Capillary Refill: Capillary refill takes less than 2 seconds. Neurological: Mental Status: He is alert. ED Course & MDM Medical Decision Making Ddx: GERD, gastroparesis, PUD, esophagitis, pancreatitis, DKA, viral syndrome, other functional GI disorder, MSK, UTI, dehydration, less likely SBO, other acute intraabdominal pathology Patient is well-appearing with vitals soft BP 107/95, borderline tachycardia to 100 resolved to 88 on repeat and otherwise WNL on RA on arrival and normal cardiopulmonary exams, diffuse abdominal tenderness, dry mucus membranes, normal cap refill Will obtain UA, CT A/P. Patient is pending basic labs, lipase, LA, Mg. Will treat with IVF, GI cocktail, analgesia, anti-emetics. Discussed importance of close outpatient f/u with PCP re uncontrolled DM and other chronic issues and GI re chronic abdominal pain, possibility of gastroparesis and role of DM. Amount and/or Complexity of Data Reviewed External Data Reviewed: notes. Labs: ordered. Decision-making details documented in ED Course. Radiology: ordered and independent interpretation performed. Decision-making details documented in ED Course. Risk OTC drugs. Prescription drug management. ED Course as of 11/19/24 1851 Sat Nov 19, 2024 1053 Lipase: 35 WNL [RG] 1053 CBC and differential(!) No leukocytosis, mild anemia to 12.8 [RG] 1053 Urinalysis with reflex microscopic ([id number])(!) Dehydration, no UTI [RG] 1053 Comprehensive Metabolic Panel (CMP)(!) Hyperglycemia to 307, no DKA, otherwise unremarkable [RG] 1053 Lactate, Whole Blood(!): 2.4 Mild lactic acidosis, pending repeat after fluids [RG] 1054 Magnesium(!): 1.8 Mildly low [RG] 1055 CT Abdomen Pelvis w Contrast On my read diffuse mild to moderate gas and stool, distention of stomach, gallbladder with mild thickening of wall, no calculus, otherwise normal, no clear SBO, normal-appearing kidneys, read by radiology as IMPRESSION: No acute abnormality demonstrated. There may be some slight thickening of the distal esophageal wall which is nonspecific. No CT evidence of acute appendicitis or pancreatitis. [RG] 1059 Patient updated and re-evaluated, he states he feels better, discussed findings, ongoing concern this could be gastroparesis versus GERD/esophagitis, importance of lifestyle changes, continue totake omeprazole. Will prescribe Zofran per patient's request. Also discussed importance of outpatient follow-up with GI. Patient was discharged with home care instructions, outpatient follow- up plan,prescriptions for zofran and lancets, and return precautions. [RG] ED Course User Index [RG] Marlin Fay MD Clinical Impressions as of 11/19/24 185 Gastroparesis Gastroesophageal reflux disease with esophagitis without hemorrhage LUQ pain Nausea Hyperglycemia due to diabetes mellitus ([facility] V24, [facility] V28) Poorly controlled diabetes mellitus ([facility] V24, [facility] V28) Procedures Marlin Fay MD 11/19/24 0738 Marlin Fay MD 11/19/24 185 documented in this encounter Plan of Treatment Not on file documented as of this encounter Procedures Procedure Name Priority Date/Time Associated Diagnosis Comments LACTATE, WITH REFLEX Timed 11/19/2024 10:43 AM EDT URINALYSIS WITH REFLEX MICROSCOPIC STAT 11/19/2024 9:00 AM EDT URINALYSIS WITH REFLEX MICROSCOPIC STAT 11/19/2024 9:[address] ABDOMEN PELVIS W CONTRAST STAT 11/19/2024 8:02 AM EDT LACTATE, WITH REFLEX STAT 11/19/2024 6:05 AM EDT CBC WITH AUTO DIFFERENTIAL STAT 11/19/2024 6:05 AM EDT CBC AND DIFFERENTIAL STAT 11/19/2024 6:05 AM EDT MAGNESIUM STAT 11/19/2024 6:05 AM EDT LIPASE STAT 11/19/2024 6:05 AM EDT COMPREHENSIVE METABOLIC PANEL STAT 11/19/2024 6:05 AM EDT documented in this encounter Results * Lactate, with reflex (11/19/2024 10:43 AM EDT) Pathologist [facility] [place] LACTIC ACID 0.8 0.4 - 2.0 mmol/L LAB CHEMISTRY METHOD 11/19/2024 11:21 AM T [facility] Blood Venous blood specimen / Unknown Venipuncture / Unknown 11/19/2024 10:43 AM EDT 11/19/2024 10:59 AM EDT [facility] LAB BLOOD ORDERABLES Fin al Result [facility] [address] [place] [address], * (ABNORMAL) Urinalysis with reflex microscopic (11/19/2024 9:00 AM EDT) [facility] [place] Urine >1.045(H) 1.003 - 1.030 LAB URINALYSIS - AUTOMATED METHOD 11/19/2024 9:24 AM [facility] pH, Urine 7.5 5.0 - 8.0 pH LAB URINALYSIS - AUTOMATED METHOD 11/19/2024 9:24 AM [facility] Leukocytes, Urine Negative Negative LAB URINALYSIS - AUTOMATED METHOD 11/19/2024 9:24 AM [facility] Nitrite, Urine Negative Negative LAB URINALYSIS - AUTOMATED METHOD 11/19/2024 9:24 AM [facility] Protein, Urine Trace <=Trace mg/dL LAB URINALYSIS - AUTOMATED METHOD 11/19/2024 9:24 AM [facility] Glucose, Urine 500(A) Negative mg/dL LAB URINALYSIS - AUTOMATED METHOD 11/19/2024 9:24 AM [facility] Ketones, Urine Negative Negative mg/dL LAB URINALYSIS - AUTOMATED METHOD 11/19/2024 9:24 AM EDT [facility] Urobilinogen , Urine 1.0 0.2 - 1.0 mg/dL LAB URINALYSIS - AUTOMATED METHOD 11/19/2024 9:24 AM EDT [facility] Bilirubin, Urine Negative Negative LAB URINALYSIS - AUTOMATED METHOD 11/19/2024 9:24 AM EDT [facility] Blood, Urine Negative Negative LAB URINALYSIS - AUTOMATED METHOD 11/19/2024 9:24 AM EDT [facility] Urine Urine specimen obtained by clean catch procedure / Unknown Non-blood Collection / Unknown 11/19/2024 9:00 AM EDT 11/19/2024 9:19 AM EDT us Marlin Fay MD LAB URINE ORDERABLES Final Resul t [facility] [address] [place] [address], [place] [phone] * CT Abdomen Pelvis w Contrast (11/19/2024 8:02 AM EDT) Anatomical Region Laterality Modality Body Computed Tomogra phy 11/19/2024 8:22 AM EDT Impressions 11/19/2024 8:31 AM EDT No acute abnormality demonstrated. There may be some slight thickening of the distal esophageal wall which is nonspecific. No CT evidence of acute appendicitis or pancreatitis. -------- FINAL REPORT -------- Dictated By: Ethan Dimas Dictated Date: 11/19/2024 08:22 ET Assigned Physician: Ethan Dimas Reviewed and Electronically Signed By: Ethan Dimas Signed Date: 11/19/2024 08:31 ET Workstation ID: [id number] Transcribed By: Self Edit Transcribed Date: 11/19/2024 08:22 ET Narrative 11/19/2024 8:31 AM EDT EXAMINATION: CT ABDOMEN/PELVIS WITH IV CONTRAST CLINICAL INFORMATION: Abdomen pain. Left upper quadrant pain. Nausea. COMPARISON: Portions of previous 09/10/24 TECHNIQUE: Multidetector CT. Helical examination of the abdomen and pelvis. Imaging performed after the IV administration of contrast. Reformatting in the coronal and sagittal planes. DLP: 803 mGy-cm Dose optimization was performed including the use of low-dose iterative reconstruction technique with automatic exposure control based on patient size. Type of contrast: ISOVUE 370 Volume of IV contrast: 100 mL Volume of contrast discarded: 0 mL FINDINGS: There is motion artifact. LIVER: The liver contour is smooth. There is generalized low attenuation suggesting fatty change. There may be a small area of sparing adjacent to the gallbladder fossa. No additional liver findings. BILIARY TRACT: No opaque gallstone. No biliary dilation. SPLEEN: Normal size. No focal lesion. PANCREAS: No suspicious abnormality. No peripancreatic fat stranding or fluid. ADRENAL GLANDS: No suspicious abnormality. KIDNEYS: No dilation of the intrarenal collecting system. The nephrograms are symmetric. No suspicious renal mass. No opaque renal calculus. URINARY BLADDER: No suspicious abnormality. PELVIC VISCERA: No suspicious abnormality. GASTROINTESTINAL TRACT: No bowel wall thickening. No localized fat stranding. No suspicious mass. ABDOMINAL WALL: No significant hernia is appreciated. LYMPHOVASCULAR STRUCTURES AND FLUID: There is no abdominal aortic aneurysm. There are no enlarged lymph nodes. Unchanged top normal celiac lymph node (3/32). There is no free intraperitoneal fluid. There is moderately extensive arterial calcification. VISUALIZED LOWER CHEST: No suspicious abnormality. Nonspecific lung base opacities. There may be some thickening of the distal esophageal wall. MUSCULOSKELETAL: No acute or suspicious osseous abnormality. Procedure Note Ethan Dimas MD - 11/19/2024 EXAMINATION: CT ABDOMEN/PELVIS WITH IV CONTRAST CLINICAL INFORMATION: Abdomen pain. Left upper quadrant pain. Nausea. COMPARISON: Portions of previous 09/10/24 TECHNIQUE: Multidetector CT. Helical examination of the abdomen and pelvis. Imaging performed after the IV administration of contrast. Reformatting in the coronal and sagittal planes. DLP: 803 mGy-cm Dose optimization was performed including the use of low-dose iterativereconstruction technique with automatic exposure control based on patientsize. Type of contrast: ISOVUE 370 Volume of IV contrast: 100 mL Volume of contrast discarded: 0 mL FINDINGS: There is motion artifact. LIVER: The liver contour is smooth. There is generalized low attenuationsuggesting fatty change. There may be a small area of sparing adjacent tothe gallbladder fossa. No additional liver findings. BILIARY TRACT: No opaque gallstone. No biliary dilation. SPLEEN: Normal size. No focal lesion. PANCREAS: No suspicious abnormality. No peripancreatic fat stranding orfluid. ADRENAL GLANDS: No suspicious abnormality. KIDNEYS: No dilation of the intrarenal collecting system. The nephrogramsare symmetric. No suspicious renal mass. No opaque renal calculus. URINARY BLADDER: No suspicious abnormality. PELVIC VISCERA: No suspicious abnormality. GASTROINTESTINAL TRACT: No bowel wall thickening. No localized fatstranding. No suspicious mass. ABDOMINAL WALL: No significant hernia is appreciated. LYMPHOVASCULAR STRUCTURES AND FLUID: There is no abdominal aorticaneurysm. There are no enlarged lymph nodes. Unchanged top normal celiaclymph node (3/32). There is no free intraperitoneal fluid. There is moderately extensive arterial calcification. VISUALIZED LOWER CHEST: No suspicious abnormality. Nonspecific lung baseopacities. There may be some thickening of the distal esophageal wall. MUSCULOSKELETAL: No acute or suspicious osseous abnormality. IMPRESSION: No acute abnormality demonstrated. There may be some slight thickening ofthe distal esophageal wall which is nonspecific. No CT evidence of acute appendicitis or pancreatitis. -------- FINAL REPORT -------- Dictated By: Ethan Dimas Dictated Date: 11/19/2024 08:22 ET Assigned Physician: Ethan Dimas Reviewed and Electronically Signed By: Ethan Dimas Signed Date: 11/19/2024 08:31 ET Workstation ID: [id number] Transcribed By: Self Edit Transcribed Date: 11/19/2024 08:22 ET Marlin Fay MD [facility] CT PROCEDURES Final Result * (ABNORMAL) CBC auto differential (11/19/2024 6:05 AM EDT) WBC 8.9 4.8 - 10.8 K/mcL LAB HEMETOLOGY METHOD 11/19/2024 6:17 AM EDT [facility] RBC 4.70 4.50 - 5.50 M/mcL LAB HEMETOLOGY METHOD 11/19/2024 6:17 AM EDT [facility] Hemoglobin 12.8(L) 13.5 - 17.5 g/dL LAB HEMETOLOGY METHOD 11/19/2024 6:17 AM [facility] Hematocrit 38.9(L) 42.0 - 54.0 % LAB HEMETOLOGY METHOD 11/19/2024 6:17 AM [facility] MCV 83.1 79.0 - 98.0 FL LAB HEMETOLOGY METHOD 11/19/2024 6:17 AM [facility] MCH 27.4 27.0 - 32.0 pcg LAB HEMETOLOGY METHOD 11/19/2024 6:17 AM [facility] MCHC 32.9 32.0 - 37.0 g/dL LAB HEMETOLOGY METHOD 11/19/2024 6:17 AM [facility] RDW 14.3 11.0 - 15.0 % LAB HEMETOLOGY METHOD 11/19/2024 6:17 AM [facility] Platelets 275 130 - 400 K/mcL LAB HEMETOLOGY METHOD 11/19/2024 6:17 AM [facility] MPV 10.2 7.0 - 11.0 FL LAB HEMETOLOGY METHOD 11/19/2024 6:17 AM [facility] NRBC 0.0 <1.0 % LAB HEMETOLOGY METHOD 11/19/2024 6:17 AM [facility] NRBC Absolute 0.00 <0.10 K/mcL LAB HEMETOLOGY METHOD 11/19/2024 6:17 AM [facility] Neutrophils Relative 71.1 % LAB HEMETOLOGY METHOD 11/19/2024 6:17 AM [facility] Lymphocytes Relative 19.1 % LAB HEMETOLOGY METHOD 11/19/2024 6:17 AM [facility] Monocytes Relative 7.9 % LAB HEMETOLOGY METHOD 11/19/2024 6:17 AM EDT [facility] Eosinophils Relative 0.9 % LAB HEMETOLOGY METHOD 11/19/2024 6:17 AM EDT [facility] Basophils Relative 0.6 % LAB HEMETOLOGY METHOD 11/19/2024 6:17 AM EDT [facility] Immature Granulocytes Relative 0.4 % LAB HEMETOLOGY METHOD 11/19/2024 6:17 AM EDT [facility] Neutrophils Absolute 6.35 1.50 - 7.00 K/mcL LAB HEMETOLOGY METHOD 11/19/2024 6:17 AM EDT [facility] Lymphocytes Absolute 1.71 1.00 - 5.00 K/mcL LAB HEMETOLOGY METHOD 11/19/2024 6:17 AM EDT [facility] Monocytes Absolute 0.71 0.20 - 1.00 K/mcL LAB HEMETOLOGY METHOD 11/19/2024 6:17 AM EDT [facility] Eosinophils Absolute 0.08 0.00 - 0.50 K/mcL LAB HEMETOLOGY METHOD 11/19/2024 6:17 AM EDT [facility] Basophils Absolute 0.05 0.00 - 0.20 K/mcL LAB HEMETOLOGY METHOD 11/19/2024 6:17 AM EDT [facility] Immature Granulocytes Absolute 0.04(H) 0.00 - 0.03 K/mcL LAB HEMETOLOGY METHOD 11/19/2024 6:17 AM EDT [facility] Blood Venous blood specimen / Unknown Venipuncture / Unknown 11/19/2024 6:05 AM EDT 11/19/2024 6:11 AM EDT us Ally [facility] LAB BLOOD ORDERABLES Fin al Result [facility] [address] [place] [address], * (ABNORMAL) Comprehensive Metabolic Panel (CMP) (11/19/2024 6:05 AM EDT) Sodium 136 133 - 145 mmol/L LAB CHEMISTRY METHOD 11/19/2024 6:44 AM [facility] Potassium 4.5 3.5 - 5.5 mmol/L LAB CHEMISTRY METHOD 11/19/2024 6:44 AM [facility] Chloride 100 96 - 110 mmol/L LAB CHEMISTRY METHOD 11/19/2024 6:44 AM [facility] CO2 29 21 - 32 mmol/L LAB CHEMISTRY METHOD 11/19/2024 6:44 AM [facility] Anion Gap 7 3 - 11 LAB CHEMISTRY METHOD 11/19/2024 6:44 AM [facility] Glucose 307(H) 70 - 100 mg/dL LAB CHEMISTRY METHOD 11/19/2024 6:44 AM [facility] BUN 23 5 - 25 mg/dL LAB CHEMISTRY METHOD 11/19/2024 6:44 AM [facility] Creatinine 1.24 0.70 - 1.30 mg/dL LAB CHEMISTRY METHOD 11/19/2024 6:44 AM [facility] eGFR 67 >=60 mL/min/1. 73m2 LAB CHEMISTRY METHOD 11/19/2024 6:44 AM [facility] Comment:Calculation based on the Chronic Kidney Disease Epidemiology Collaboration (CKD-EPI) equation refit without adjustment for race. BUN/Creatinine Ratio 18.5 LAB CHEMISTRY METHOD 11/19/2024 6:44 AM [facility] Calcium 9.1 8.5 - 10.5 mg/dL LAB CHEMISTRY METHOD 11/19/2024 6:44 AM [facility] AST (SGOT) 25 10 - 42 unit/L LAB CHEMISTRY METHOD 11/19/2024 6:44 AM EDT [facility] ALT (SGPT) 51 10 - 60 unit/L LAB CHEMISTRY METHOD 11/19/2024 6:44 AM EDT [facility] Alkaline Phosphatase 96 42 - 121 unit/L LAB CHEMISTRY METHOD 11/19/2024 6:44 AM EDT [facility] Total Protein 7.6 6.0 - 8.0 g/dL LAB CHEMISTRY METHOD 11/19/2024 6:44 AM EDT [facility] Albumin 4.0 3.2 - 5.0 g/dL LAB CHEMISTRY METHOD 11/19/2024 6:44 AM EDT [facility] Total Bilirubin 0.3 0.0 - 1.4 mg/dL LAB CHEMISTRY METHOD 11/19/2024 6:44 AM EDT [facility] Blood Venous blood specimen / Unknown Venipuncture / Unknown 11/19/2024 6:05 AM EDT 11/19/2024 6:11 AM EDT [facility] LAB BLOOD ORDERABLES Fin al Result [facility] [address] [place] [address], * (ABNORMAL) Lactate, with Reflex (11/19/2024 6:05 AM EDT) LACTIC ACID 2.4(H) 0.4 - 2.0 mmol/L LAB CHEMISTRY METHOD 11/19/2024 6:39 AM EDT [facility] Blood Venous blood specimen / Unknown Venipuncture / Unknown 11/19/2024 6:05 AM EDT 11/19/2024 6:12 AM EDT [facility] LAB BLOOD ORDERABLES Fin al Result [facility] [address] [place] [address], [place] [phone] * Lipase (11/19/2024 6:05 AM EDT) Lipase 35 13 - 75 unit/L LAB CHEMISTRY METHOD 11/19/2024 6:35 AM EDT [facility] Blood Venous blood specimen / Unknown Venipuncture / Unknown 11/19/2024 6:05 AM EDT 11/19/2024 6:11 AM EDT [facility] LAB BLOOD ORDERABLES Fin al Result Performing Organization Address [facility]/ZIP Co de Phone Number [facility] [address] [place] [address], [place] [phone] * (ABNORMAL) Magnesium (11/19/2024 6:05 AM EDT) Magnesium 1.8(L) 1.9 - 2.6 mg/dL LAB CHEMISTRY METHOD 11/19/2024 6:35 AM EDT [facility] Blood Venous blood specimen / Unknown Venipuncture / Unknown 11/19/2024 6:05 AM EDT 11/19/2024 6:11 AM EDT [facility] LAB BLOOD ORDERABLES Fin al Result Performing Organization Address City/[facility]/ZIP Co de Phone Number [facility] [address] [place] [address], [place] [phone] documented in this encounter Visit Diagnoses Diagnosis Gastroparesis- Primary Gastroesophageal reflux disease with esophagitis without hemorrhage LUQ pain Abdominal pain, left upper quadrant Nausea Nausea alone Hyperglycemia due to diabetes mellitus ([facility] V24, [facility] V28) Poorly controlled diabetes mellitus ([facility] V24, [facility] V28) Type II or unspecified type diabetes mellitus without mention of complication, not stated as uncontrolled documented in this encounter Administered Medications Inactive Administered Medications - up to 3 most recent administrations Medication Order MAR Action Action Date Dose Rate Site acetaminophen (TYLENOL) tablet 1,000 mg 1,000 mg, oral, Once, On 11/19/24 at 0736, For 1 dose Given 11/19/2024 8:08 AM EDT 1,000 mg aluminum-magnesium hydroxide-simethicone (MAALOX) 200-200-20 mg/5 mL suspension 30 mL 30 mL, oral, Once, On 11/19/24 at 0738, For 1 dose Given 11/19/2024 8:09 AM EDT 30 mL dicyclomine (BENTYL) capsule 10 mg 10 mg, oral, Once, On 11/19/24 at 0736, For 1 dose Given 11/19/2024 8:08 AM EDT 10 mg iopamidoL (ISOVUE-370) 370 mg iodine /mL (76 %) injection 100 mL 100 mL, intravenous, Once in imaging, Starting on 11/19/24 at 0754, For 1 dose Given 11/19/2024 7:55 AM EDT 100 mL ketorolac (TORADOL) injection 15 mg 15 mg, intravenous, Once, On 11/19/24 at 0736, For 1 dose Given 11/19/2024 8:16 AM EDT 15 mg ondansetron (PF) (ZOFRAN) injection 4 mg 4 mg, intravenous, Once, On 11/19/24 at 0736, For 1 dose Given 11/19/2024 8:08 AM EDT 4 mg pantoprazole (PROTONIX) injection 40 mg 40 mg, intravenous, Administer over 2 Minutes, Once, On 11/19/24 at 0738, For 1 dose, Pantroprazole - IV push: Reconstitute powder for injection with 10 mL NS; final concentration: 4 mg/mL., Indication for IV Push Pantoprazole? Stress Ulcer Prophylaxis for patients with STRICT NPO status AND contraindication to H2RA Given 11/19/2024 8:09 AM EDT 40 mg sodium chloride 0.9 % bolus 1,000 mL 1,000 mL, intravenous, at 1,000 mL/hr, Administer over 1 Hours, Once, On 11/19/24 at 0736, For 1 dose New Bag 11/19/2024 8:07 AM EDT 1,000 mL 1000 mL/hr sodium chloride 0.9 % flush 10 mL 10 mL, intravenous, Once, On 11/19/24 at 0756, For 1 dose Given 11/19/2024 7:55 AM EDT 10 mL documented in this encounter Active and Recently Administered Medications Times are shown in EDT. Scheduled Medication Order 11/17/2024 11/18/2024 11/19/2024 acetaminophen (TYLENOL) tablet 1,000 mg (COMPLETED) 1,000 mg, oral, Once, On 11/19/24 at 0736, For 1 dose 0808 (Given - Provid er: Suma Santos RN) aluminum-magnesium hydroxide-simethicone (MAALOX) 200-200-20 mg/5 mL suspension 30 mL (COMPLETED) 30 mL, oral, Once, On 11/19/24 at 0738, For 1 dose 0809 (Given - Provid er: Suma Santos RN) dicyclomine (BENTYL) capsule 10 mg (COMPLETED) 10 mg, oral, Once, On 11/19/24 at 0736, For 1 dose 08 (Given - Provid er: Suma Santos RN) iopamidoL (ISOVUE-370) 370 mg iodine /mL (76 %) injection 100 mL (COMPLETED) 100 mL, intravenous, Once in imaging, Starting on 11/19/24 at 0754, For 1 dose 075 (Given - Provid er: Mabel Huerta) ketorolac (TORADOL) injection 15 mg (COMPLETED) 15 mg, intravenous, Once, On 11/19/24 at 0736, For 1 dose 0816 (Given - Provid er: Suma Santos RN) ondansetron (PF) (ZOFRAN) injection 4 mg (COMPLETED) 4 mg, intravenous, Once, On 11/19/24 at 0736, For 1 dose 0808 (Given - Provid er: Suma Santos RN) pantoprazole (PROTONIX) injection 40 mg (COMPLETED) 40 mg, intravenous, Administer over 2 Minutes, Once, On 11/19/24 at 0738, For 1 dose, Pantroprazole - IV push: Reconstitute powder for injection with 10 mL NS; final concentration: 4 mg/mL., Indication for IV Push Pantoprazole? Stress Ulcer Prophylaxis for patients with STRICT NPO status AND contraindication to H2RA 08 (Given - Provid er: Suma Santos RN) sodium chloride 0.9 % bolus 1,000 mL (COMPLETED) 1,000 mL, intravenous, at 1,000 mL/hr, Administer over 1 Hours, Once, On 11/19/24 at 0736, For 1 dose 0807 (New Bag - Prov ider: Suma Santos RN)1042 (Stopped - Provider: Suma Santos RN) sodium chloride 0.9 % flush 10 mL (COMPLETED) 10 mL, intravenous, Once, On 11/19/24 at 0756, For 1 dose 0755 (Given - Provid er: Mabel Hureta) documented in this encounter Care Teams Car And Yard Supervisor Relationship Specialty Start Date End Date Yoel Parrish MD [address] [place] [phone] PCP - General Internal Medicine 01/27/24 documented as of this encounter
[2024-11-19 21:08] VITALS: BP 125/64; PULSE 87; RESP 18; TEMP 36.3; O2SAT 99; BMI 28.7
--- OUTSIDE RECORDS SUMMARY | 2024-11-19 21:28 | XMS_ITS ---
Author Organization [facility] Address [address] [place] [phone] Phone Care Team Providers Care Conservation Planner Name Role Phone Yoel Parrish MD Primary Care Provider +1 [phone] [facility] - Behavioral Health Status:Ongoing (Active) Start date:04/11/2024 Enrollment date:04/11/2024 Enrollment reason:Walk-in Related program episode:Community Health Worker Program (Closed) Overview Behavior Health service of Community Health Worker Program Case Team Name Relationship Phone Vu Chicas Community Health Worker(Respons ible Staff) Continued Care and Services Coordination
--- OUTSIDE RECORDS SUMMARY | 2024-11-19 21:28 | XMS_ITS ---
Author Organization [facility] Address [address] [place] [phone] Phone Care Team Providers Care Steeplechase Jockey Name Role Phone Yoel Parrish MD Primary Care Provider +1 -[phone] [facility] - Food Insecurity Status:Ongoing (Active) Start date:04/11/2024 Enrollment date:04/11/2024 Enrollment reason:Walk-in Related social drivers of health:Food Risk Related program episode:Community Health Worker Program (Closed) Overview Community Health Worker Program - Food Insecurity Service Episode Case Team Name Relationship Phone Vu Chicas Community Health Worker(Respons ible Staff) Continued Care and Services Coordination
--- OUTSIDE RECORDS SUMMARY | 2024-11-19 21:28 | XMS_ITS ---
Author Organization [facility] Address [address] [place] [phone] Phone Care Team Providers Care Sister Superior Name Role Phone Yoel Parrish MD Primary Care Provider +1 -[phone] [facility] - Housing Status:Ongoing (Active) Start date:04/11/2024 Enrollment date:04/11/2024 Enrollment reason:Walk-in Related social drivers of health:Housing Instability Related program episode:Community Health Worker Program (Closed) Overview Housing service of Community Health Worker Program Case Team Name Relationship Phone Vu Chicas Community Health Worker(Respons ible Staff) Continued Care and Services Coordination
--- OUTSIDE RECORDS SUMMARY | 2024-11-19 21:28 | XMS_ITS | Clinical Summary ---
Author Organization [facility] Address [address] [facility] [address] [place] [phone] Phone Care Team Providers Care Shuttle Operator Name Role Phone Pcp, Unknown Primary [...] 5:58 AM EDT [facility] [address] [place] [address] Brenda Sofia MD Discharge Disposition: Home or Self Care 09/03/2024 12:12 AM EDT - 09/03/2024 2:18 AM EDT Emergency [facility] [address] [place] [address] Vik Arrington MD Discharge Disposition: Home or [...] Glucose, POCT 282(H) 70 - 100 mg/dL [facility] 09/04/2024 5:32 AM EDT 09/04/2024 5:38 AM EDT us Brenda Sofia MD POINT OF CARE TEST ORDERABLE S Final Result [facility] [address] [place] [address] * (ABNORMAL) CBC and differential (09/04/2024 4:28 AM EDT) WBC 8.93 4.00 - 11.00 K/uL [facility] RBC 4.75 4.50 - 5.90 M/uL [facility] HGB 13.2(L) 13.5 - 17.5 g/dL [facility] HCT 39.9(L) 41.0 - 53.0 % [facility] PLT 244 150 - 450 K/uL [facility] MCV 84.0 80.0 - 100.0 fL [facility] MCH 27.8 27.0 - 31.0 pg [facility] MCHC 33.1 32.0 - 36.0 g/dL [facility] RDW 13.5 11.5 - 14.5 % [facility] MPV 9.5 8.4 - 12.0 fL [facility] NRBC 0.00 0.00 /100 WBCs [facility] ABSOLUTE NRBC 0.00 0.00 K/uL [facility] DIFF METHOD Auto [facility] NEUTS 69.5 48.0 - 76.0 % [facility] LYMPHS 19.8 18.0 - 41.0 % [facility] MONOS 9.6 4.0 - 11.0 % [facility] EOS 0.6 0.0 - 5.0 % [facility] BASOS 0.3 0.0 - 1.5 % [facility] Granulocytes, immature (%) 0.2 0.0 - 0.9 % [facility] ABSOLUTE NEUTS 6.20 1.92 - 7.60 K/uL [facility] ABSOLUTE LYMPHS 1.77 0.72 - 4.10 K/uL [facility] ABSOLUTE MONOS 0.86 0.16 - 1.10 K/uL [facility] ABSOLUTE EOS 0.05 0.00 - 0.50 K/uL [facility] ABSOLUTE BASOS 0.03 0.00 - 0.15 K/uL [facility] Granulocytes, immature 0.02 0.00 - 0.09 K/uL [facility] Blood 09/04/2024 4:28 AM EDT 09/04/2024 4:30 AM EDT us Brenda Sofia MD LAB BLOOD ORDERABLES Final R esult Performing Organization Address City/[facility] [address]/ZIP Co de Phone Number [address] [address] * (ABNORMAL) CPK (creatine kinase) (09/04/2024 4:28 AM EDT) CREATINE KINASE 257(H) 35 - 232 U/L [facility] Blood 09/04/2024 4:28 AM EDT 09/04/2024 4:30 AM EDT us Brenda Sofia MD LAB BLOOD ORDERABLES Final R esult [address] [address] * (ABNORMAL) Basic metabolic panel (09/04/2024 4:28 AM EDT) SODIUM 134 133 - 146 mmol/L [facility] CHLORIDE 99 96 - 108 mmol/L [facility] POTASSIUM 4.2 3.3 - 5.1 mmol/L [facility] CO2 23 21 - 35 mmol/L [facility] BUN 27(H) 6 - 19 mg/dL [facility] CREATININE 1.20 0.5 - 1.5 mg/dL [facility] GLUCOSE 329(H) 70 - 99 mg/dL [facility] CALCIUM 9.2 8.4 - 10.3 mg/dL [facility] EGFR 70 >59 mL/min/1.7 3m2 [facility] Comment:Estimated glomerular filtration rate calculated using the CKD-EPI refit equation. ANION GAP 16 10 - 20 mmol/L [facility] Blood 09/04/2024 4:28 AM EDT 09/04/2024 4:30 AM EDT Brenda Sofia MD LAB BLOOD ORDERABLES Final R esult Performing Organization Address City/[facility] [address]/ZIP Co de Phone Number [address] [address] * (ABNORMAL) Urinalysis w/reflex Urine Culture (09/04/2024 2:45 AM EDT) COLOR Yellow Yellow [facility] CLARITY HAZY [facility] GLUCOSE Negative Negative [facility] BILI 1+(A) Negative [facility] KETONES Negative Negative [facility] SPECIFIC GRAVITY >1.030 1.005 - 1.030 [facility] BLOOD 1+(A) Negative [facility] PH 6.0 5.0 - 8.0 [facility] Protein-UA 3+(A) Negative [facility] NITRITE Negative Negative [facility] Leukocyte esterase, ur Negative Negative [facility] Urine (Urine) 09/04/2024 2:4 5 AM EDT 09/04/2024 2:48 AM EDT Brenda Sofia MD URINE ORDERABLES Final Resul t Performing Organization Address City/[facility] [address]/ZIP Co de Phone Number [address] [address] * (ABNORMAL) Urine sediment (09/04/2024 2:45 AM EDT) WBC 0-4(A) NONE SEEN /hpf [facility] RBC 3-5(A) NONE SEEN /hpf [facility] URINE EPITHELIAL 0-4(A) NONE SEEN [facility] MUCUS 3+(A) NONE SEEN /hpf [facility] BACTERIA Trace(A) NONE SEEN /hpf [facility] CAST 6-10 [facility] Comment:HYALINE CAST 09/04/2024 2:45 AM EDT 09/04/2024 2:48 AM EDT us Brenda Sofia MD URINE ORDERABLES Final Resul t [address] [id number] from Last 3 Months Insurance MEDICARE REPLACEMENT MEDICARE REPLACEMENT [employer] MEDICARE REPLACEMENT MEDICARE REPLACEMENT MED[place] [address] [place] [address] MEDICARE REPLACEMENT ABHINAV ZAMAN [facility] Care Teams Shuttle Operator Relationship Specialty Start Date End Date Pcp, Unknown PCP - General 07/16/24 Additional Source Comments The information contained in this document represents components of the legal health record. It is not the complete legal health record.[facility]
[2024-11-19 21:29] LABS: MANUAL DIFF FLAG NO
--- OUTSIDE RECORDS SUMMARY | 2024-11-19 21:29 | XMS_ITS | Encounter Summary ---
Author Organization [employer] Address [address] [place] [address] Care Team Providers Care Type Copyist Name Role Phone Yoel Parrish MD Primary Care Provider [phone] Encounter Details Date Type Department Care Team (Late st Contact Info) Description 08/26/2024 Lab Requisition [facility] - Main Lab [address] [facility] [place] [address] [facility] [address] [place] [address] [id number] Social History Tobacco Use Types Packs/Day Years [...] for your loved ones. For example, childcare administrator or elderly care for an older adult? [...] Assessment Author No 08/24/2024 3:28 PM EDMarcela Almanzar, RN * Do you have serious difficulty [...] on filedocumented in this encounter Care Teams Type Copyist Relationship Specialty Start Date End Date Yoel Parrish MD [address] [place] [phone] PCP - General Internal Medicine 01/27/24 documented as of this encounter
--- OUTSIDE RECORDS SUMMARY | 2024-11-19 21:29 | XMS_ITS | Encounter Summary ---
Author Organization [employer] Address [address] [place] [address] Care Team Providers Care Distribution A Class Lineman Name Role Phone Yoel Parrish MD Primary Care Provider +1 -[phone] Encounter Details Date Type Department Care Team (Late st Contact Info) Description 08/29/2024 Lab Requisition [facility] - Main Lab [address] [facility] [place] [address] [facility] [address] [place] [phone] Other terminal worker (current) drug therapy Social History Tobacco Use [...] your loved ones. For example, child development professor or elderly care for an older adult? [...] PANEL Routine 08/29/2024 7:00 AM EDT Other terminal worker (current) drug therapy documented in this encounter Results * (ABNORMAL) Basic metabolic panel (08/29/2024 7:00 AM EDT) Sodium 138 133 - 145 mmol/L LAB CHEMISTRY METHOD 08/29/2024 11:26 AM [facility] Potassium 4.4 3.5 - 5.5 mmol/L LAB CHEMISTRY METHOD 08/29/2024 11:26 AM [facility] Chloride 104 96 - 110 mmol/L LAB CHEMISTRY METHOD 08/29/2024 11:26 AM [facility] CO2 28 21 - 32 mmol/L LAB CHEMISTRY METHOD 08/29/2024 11:26 AM [facility] Anion Gap 6 3 - 11 LAB CHEMISTRY METHOD 08/29/2024 11:26 AM [facility] Glucose 175(H) 70 - 100 mg/dL LAB CHEMISTRY METHOD 08/29/2024 11:26 AM [facility] BUN 19 5 - 25 mg/dL LAB CHEMISTRY METHOD 08/29/2024 11:26 AM [facility] Creatinine 1.06 0.70 - 1.30 mg/dL LAB CHEMISTRY METHOD 08/29/2024 11:26 AM EDT [facility] eGFR 81 >=60 mL/min/1. 73m2 LAB CHEMISTRY METHOD 08/29/2024 11:26 AM EDT [facility] Comment:Calculation based on the Chronic Kidney Disease Epidemiology Collaboration (CKD-EPI) equation refit without adjustment for race. BUN/Creatinine Ratio 17.9 LAB CHEMISTRY METHOD 08/29/2024 11:26 AM EDT [facility] Calcium 8.7 8.5 - 10.5 mg/dL LAB CHEMISTRY METHOD 08/29/2024 11:26 AM EDT [facility] Blood Venous blood specimen / Unknown Venipuncture / Unknown 08/29/2024 7:00 AM EDT 08/29/2024 10:10 AM EDT [facility] LAB BLOOD ORDERABLES Final Resul t [facility] [address] [place] [address], documented in this encounter Visit Diagnoses Diagnosis Other terminal worker (current) drug therapy documented in this encounter Care Teams Distribution A Class Lineman Relationship Specialty Start Date End Date Yoel Parrish MD [address] [place] [phone] PCP - General Internal Medicine 01/27/24 documented as of this encounter
--- OUTSIDE RECORDS SUMMARY | 2024-11-19 21:29 | XMS_ITS | Encounter Summary ---
Author Organization [employer] Address [address] [place] [address] Care Team Providers Care Snow Shoveler Name Role Phone Yoel Parrish MD Primary Care Provider [phone] [phone] Encounter Details Date Type Department Care Team (Late st Contact Info) Description 08/26/[address] [facility] - Main Lab [address] [facility] [place] [address] [facility] [address] [place] [address] [phone] Other regional intermodal truck driver (current) drug therapy Social [...] your loved ones. For example, child care attendant school or elderly care for an older adult? [...] A1C Routine 08/26/2024 7:00 AM EDT Other regional intermodal truck driver (current) drug therapy documented in this encounter Results * (ABNORMAL) Hemoglobin A1c (08/26/2024 7:00 AM EDT) Hemoglobin A1C 8.5(H) <6.5 % LAB CHEMISTRY METHOD 08/26/2024 2:31 PM EDT [facility] Mean Bld Glu Estim. 197 mg/dL LAB CHEMISTRY METHOD 08/26/2024 2:31 PM EDT [facility] Blood Venous blood specimen / Unknown Venipuncture / Unknown 08/26/2024 7:00 AM EDT 08/26/2024 11:03 AM EDT [facility] BLOOD ORDERABLES Final Resul t [facility] [address] [place] [address], documented in this encounter Visit Diagnoses Diagnosis Other assisted (current) drug therapy documented in this encounter Care Teams Snow Shoveler Relationship Specialty Start Date End Date Yoel Parrish [place] [phone] PCP - General Internal Medicine 01/27/24 documented as of this encounter
--- OUTSIDE RECORDS SUMMARY | 2024-11-19 21:29 | XMS_ITS | Encounter Summary ---
Author Organization [employer] Address [address] [place] [address] Care Team Providers Care Copper Etcher Name Role Phone Yoel Parrish MD Primary Care Provider [phone] [phone] Encounter Details Date Type Department Care Team (Late st Contact Info) Description 08/05/[address] [facility] - Main Lab 299 [facility] [place] [address] Annie Barraza, EXPEDITER SERVICE ORDER [address] [place] [address] Other halfway (current) drug therapy Social History Tobacco Use [...] for your loved ones. For example, children's court magistrate or elderly care for an older adult? [...] 08/01/2024 12:24 AM Halley Albarado RN * Do you have serious difficulty [...] LDL Routine 08/05/2024 7:00 AM EDT Other halfway (current) drug therapy HEMOGLOBIN A1C Routine 08/05/2024 7:00 AM EDT Other halfway (current) drug therapy documented in this encounter Results * (ABNORMAL) Hemoglobin A1c (08/05/2024 7:00 AM EDT) Hemoglobin A1C 8.4(H) <6.5 % LAB CHEMISTRY METHOD 08/05/2024 1:51 PM EDT [facility] Mean Bld Glu Estim. 194 mg/dL LAB CHEMISTRY METHOD 08/05/2024 1:51 PM EDT [facility] Blood Venous blood specimen / Unknown Venipuncture / Unknown 08/05/2024 7:00 AM EDT 08/05/2024 9:58 AM EDT us Annie Barraza EXPEDITER SERVICE ORDER LAB BLOOD ORDERABLES Final Re sult [facility] [address] [place] [address], * (ABNORMAL) Lipid panel with reflex to direct LDL (08/05/2024 7:00 AM EDT) Cholesterol 181 0 - 200 mg/dL LAB CHEMISTRY METHOD 08/05/2024 11:26 AM EDT [facility] Triglycerides 306(H) 0 - 150 mg/dL LAB CHEMISTRY METHOD 08/05/2024 11:26 AM [facility] HDL 26(L) >=40 mg/dL LAB CHEMISTRY METHOD 08/05/2024 11:[facility] LDL Calculated 94 0 - 100 mg/dL LAB CHEMISTRY METHOD 08/05/2024 11:26 AM EDT [facility] VLDL Cholesterol Hong 61.2 mg/dL LAB CHEMISTRY METHOD 08/05/2024 11:26 AM T [facility] Non HDL Chol. 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
--- OUTSIDE RECORDS SUMMARY | 2024-11-19 21:29 | XMS_ITS | Clinical Summary ---
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 Performing Organization Address [facility] de Phone Number [facility] [address] [place] [address], [place] [phone] * (ABNORMAL) Salicylate level (11/18/2024 12:35 AM EDT) Only the most recent of5 resultswithin the time period is included. Salicylate Level <1.7(L) 2.0 - 29.0 mg/dL LAB CHEMISTRY METHOD 11/18/2024 3:50 AM EDT [facility] Blood Venous blood specimen / Unknown Venipuncture / Unknown 11/18/2024 12:35 AM EDT 11/18/2024 3:19 AM EDT Ally LA LAB BLOOD ORDERABLES Fin al Result Performing Organization Address [facility] Co de Phone Number [facility] [address] [place] [address], [place] [phone] * (ABNORMAL) Basic metabolic panel (11/03/2024 7:47 PM EDT) Only the most recent of2 resultswithin the time period is included. Sodium 136 133 - 145 mmol/L LAB CHEMISTRY METHOD 11/03/2024 8:53 PM [facility] Potassium 4.2 3.5 - 5.5 mmol/L LAB CHEMISTRY METHOD 11/03/2024 8:53 PM [facility] Chloride 101 96 - 110 mmol/L LAB CHEMISTRY METHOD 11/03/2024 8:53 PM [facility] CO2 30 21 - 32 mmol/L LAB CHEMISTRY METHOD 11/03/2024 8:53 PM [facility] Anion Gap 5 3 - 11 LAB CHEMISTRY METHOD 11/03/2024 8:53 PM [facility] Glucose 202(H) 70 - 100 mg/dL LAB CHEMISTRY METHOD 11/03/2024 8:53 PM [facility] BUN 27(H) 5 - 25 mg/dL LAB CHEMISTRY METHOD 11/03/2024 8:53 PM [facility] Creatinine 1.08 0.70 - 1.30 mg/dL LAB CHEMISTRY METHOD 11/03/2024 8:53 PM [facility] eGFR 80 >=60 mL/min/1. 73m2 LAB CHEMISTRY METHOD 11/03/2024 8:53 PM [facility] Comment:Calculation based on the Chronic Kidney Disease Epidemiology Collaboration (CKD-EPI) equation refit without adjustment for race. BUN/Creatinine Ratio 25.0 LAB CHEMISTRY METHOD 11/03/2024 8:53 PM [facility] Calcium 9.4 8.5 - 10.5 mg/dL LAB CHEMISTRY METHOD 11/03/2024 8:53 PM [facility] Blood Venous blood specimen / Unknown Venipuncture / Unknown 11/03/2024 7:47 PM EDT 11/03/2024 8:24 PM EDT us Charles P Wilhelm MD LAB BLOOD ORDERABLES Final Result [facility] [address] [place] [address], * XR Hand 3+ Views Right (10/04/2024 12:43 AM EDT) Anatomical Region Laterality Modality Upper Extremities, Hand Right [facility] 10/04/2024 6:58 AM EDT Impressions 10/04/2024 7:01 AM EDT No fracture or subluxation of the hand. Please note that carpal region injuries can be radiographically occult. -------- FINAL REPORT -------- Dictated By: Ethan Dimas Dictated Date: 10/04/2024 06:58 ET Assigned Physician: Ethan Dimas Reviewed and Electronically Signed By: Ethan Dimas Signed Date: 10/04/2024 07:01 ET Workstation ID: [id number] Transcribed By: Self Edit Transcribed Date: 10/04/2024 [...] Signed Date: 10/04/2024 07:01 ET Workstation ID: [id number] Transcribed By: Self Edit Transcribed Date: 10/04/2024 06:58 ET Pilar Landeros MD IMG XR PROCEDURES Final Result * ECG 12 lead (10/04/2024 12:10 AM EDT) Ventricular Rate ECG 95 BPM GEMUSE Atrial Rate 95 BPM GEMUSE P-R Interval 136 ms GEMUSE QRS Duration 88 ms GEMUSE Q-T Interval 368 ms GEMUSE QTc 462 ms GEMUSE P Wave [place] 46 degrees GEMUSE R [place] 56 degrees GEMUSE T [place] 21 degrees GEMUSE ECG Interpretation Normal sinus [...] on 09/29/2024 01:37:39 Lory Maria Ines Silva TEST AND BALANCE ENGINEER IMG CT PROCEDURES Final R esult * (ABNORMAL) Urinalysis with reflex microscopic and culture (09/05/2024 6:59 PM EDT) Only the most recent of2 resultswithin the time period is included. Specific [place] Urine 1.031(H) 1.003 - 1.030 LAB URINALYSIS - AUTOMATED METHOD 09/05/2024 7:49 PM [facility] pH, Urine 5.5 5.0 - 8.0 pH LAB URINALYSIS - AUTOMATED METHOD 09/05/2024 7:49 PM [facility] Leukocytes, Urine Negative Negative LAB URINALYSIS - AUTOMATED METHOD 09/05/2024 7:49 PM [facility] Nitrite, Urine Negative Negative LAB URINALYSIS - AUTOMATED METHOD 09/05/2024 7:49 PM [facility] Protein, Urine 100(A) <=Trace mg/dL LAB URINALYSIS - AUTOMATED METHOD 09/05/2024 7:49 PM [facility] Glucose, Urine Negative Negative mg/dL LAB URINALYSIS - AUTOMATED METHOD 09/05/2024 7:49 PM [facility] Ketones, Urine Trace(A) Negative mg/dL LAB URINALYSIS - AUTOMATED METHOD 09/05/2024 7:49 PM [facility] Urobilinogen, Urine 1.0 0.2 - 1.0 mg/dL LAB URINALYSIS - AUTOMATED METHOD 09/05/2024 7:49 PM [facility] Bilirubin, Urine Negative Negative LAB URINALYSIS - AUTOMATED METHOD 09/05/2024 7:49 PM [facility] Blood, Urine Trace(A) Negative LAB URINALYSIS - AUTOMATED METHOD 09/05/2024 7:49 PM EDT [facility] RBC, Urine 2.2 0 - 4 /HPF LAB URINALYSIS - AUTOMATED METHOD 09/05/2024 7:49 PM EDT [facility] WBC, Urine 1.2 0 - 4 /HPF LAB URINALYSIS - AUTOMATED METHOD 09/05/2024 7:49 PM EDT [facility] Squamous Epithelial, Urine 15 0 - 60 /LPF LAB URINALYSIS - AUTOMATED METHOD 09/05/2024 7:49 PM EDT [facility] Bacteria, Urine Negative Negative [...] Wilhelm MD LAB URINE ORDERABLES Final Result [facility] [address] [place] [address], * [place] urine culture tube (09/05/2024 6:59 PM EDT) Only the most recent of2 resultswithin the time period is included. Extra Tube Hold for add-ons. 09/05/2024 9:01 PM EDT [facility] Comment:Auto resulted. Urine Urine specimen obtained by clean catch procedure / Unknown Non-blood Collection / Unknown 09/05/2024 6:59 PM EDT 09/05/2024 7:28 PM EDT us Charles Wilhelm MD LAB URINE ORDERABLES Final Result [facility] [address] [place] [address], [place] [phone] * XR Hip 2-3 Views Right (09/02/2024 1:20 AM EDT) Anatomical Region Laterality Modality Lower Extremities, Hip Right Radiograp hic Imaging 09/02/2024 7:56 AM EDT Impressions 09/02/2024 7:56 AM EDT FINDINGS/IMPRESSION: No acute fracture. Normal alignment. -------- FINAL REPORT -------- Dictated By: Tesha Torres Dictated Date: 09/02/2024 07:56 ET Assigned Physician: Tesha Trores Reviewed and Electronically Signed By: Tesha Torres Signed Date: 09/02/2024 07:56 ET Workstation ID: [id number] Transcribed By: Self Edit Transcribed Date: 09/02/2024 [...] Signed Date: 09/02/2024 07:56 ET Workstation ID: [id number] Transcribed By: Self Edit Transcribed Date: 09/02/2024 07:56 ET us Elias Uribe MD IMG XR PROCEDURES Final [...] Signed Date: 09/02/2024 07:56 ET Workstation ID: [id number] Transcribed By: Self Edit Transcribed Date: 09/02/2024 [...] Signed Date: 09/02/2024 07:56 ET Workstation ID: [id number] Transcribed By: Self Edit Transcribed Date: 09/02/2024 07:55 ET Elias Uribe MD IMG XR PROCEDURES Final Result * (ABNORMAL) Hemoglobin A1c (08/26/2024 7:00 AM [...] Lockhart LAB BLOOD ORDERABLES Final Resul t [facility] [address] [place] [address], [place] [phone] * (ABNORMAL) Lipid panel with reflex to direct LDL (08/05/2024 7:00 AM EDT) Cholesterol 181 0 - 200 mg/dL LAB CHEMISTRY METHOD 08/05/2024 11:26 AM EDT [facility] Triglycerides 306(H) 0 - 150 mg/dL LAB CHEMISTRY METHOD 08/05/2024 11:26 AM EDT [facility] HDL 26(L) >=40 mg/dL LAB CHEMISTRY METHOD 08/05/2024 11:26 AM EDT [facility] LDL Calculated 94 0 - 100 mg/dL LAB CHEMISTRY METHOD 08/05/2024 11:26 AM EDT [facility] VLDL Cholesterol Hong 61.2 mg/dL LAB CHEMISTRY METHOD 08/05/2024 11:26 AM EDT [facility] Non HDL Chol. (LDL+VLDL) 155(H) <145 mg/dL LAB CHEMISTRY METHOD 08/05/2024 11:26 AM EDT [facility] Chol/HDL Ratio 7.0(H) 0.0 - 4.4 LAB CHEMISTRY METHOD 08/05/2024 11:26 AM T [facility] Blood Venous blood specimen / Unknown Venipuncture / Unknown 08/05/2024 7:00 AM EDT 08/05/2024 9:58 AM EDT Annie Barraza MANAGER ENDOSCOPY LAB BLOOD ORDERABLES Final Re sult [facility] [address] [place] [address], [place] [phone] from Last 3 Months or Most Recently Relevant to Health Maintenance Insurance [employer] Member Subscriber Plan / Payer (Ef fective 2024-Present) Name:ANDREAS CONWAY Relation to Subscriber:Self Name:Andreas Conway Payer ID:[id number] Group ID:[id number] Type:Not on file Address: [place] [address] [address] [id number] Care Teams Hog Scraper Relationship Specialty Start Date End Date Yoel Parrish MD [address] [place] [phone] PCP - General Internal Medicine 01/27/24
--- OUTSIDE RECORDS SUMMARY | 2024-11-19 21:29 | XMS_ITS | Encounter Summary ---
Author Organization [employer] Address [address] [place] [address] Care Team Providers Care Information Technology Intern Name Role Phone Yoel Parrish MD Primary Care Provider [phone] Encounter Details Date Type Department Care Team (Late st Contact Info) Description 08/29/[address] [facility] - [facility] Lab [address] [facility] [place] [address] [facility] [address] [place] [address] [phone] Social History Tobacco Use Types Packs/Day Years [...] for your loved ones. For example, child therapist or elderly care for an older adult? [...] on filedocumented in this encounter Care Teams Information Technology Intern Relationship Specialty Start Date End Date Yoel Parrish MD [address] [place] [phone] PCP - General Internal Medicine 01/27/24 documented as of this encounter
[2024-11-19 21:31] LABS: Hematocrit 35.8 % (42.0-52.0); Hemoglobin 12.0 g/dl (14.0-18.0); Imm Gran Abs Auto 0.03 X10*3/uL (0.00-0.03); Imm Gran Pct Auto 0.4 % (0.0-0.4); Lymphocytes Absolute Auto 1.7 X10*3/uL (1.2-4.9); Mean Corpuscular HGB Conc 33.5 g/dl (31.0-36.0); Mean Corpuscular Hemoglobin 27.6 pg (27.0-33.0); Mean Corpuscular Volume 82.5 fL (80.0-98.0); NRBC Abs Auto 0.000 X10*3/uL (0.0-0.012); NRBC Pct Auto 0.0 /100WBC (0.0-0.2); Platelet Count 240 X10*3/uL (160-400); Red Blood Count 4.34 X10*6/uL (4.60-5.80); White Blood Count 6.7 X10*3/uL (4.8-10.8)
[2024-11-19 21:55] LABS: COVID-19 Test Negative (Negative); IDNOW Serial# 55D5AD1C
[2024-11-19 21:58] LABS: Acetaminophen LAB < 3 mcg/mL (<30); Alanine Aminotransferase 42 U/L (0-40); Albumin Level 4.3 g/dL (3.5-5.0); Alkaline Phosphatase 82 U/L (39-117); Anion Gap 10 (12-20); Aspartate Amino Transferase 27 U/L (5-37); Blood Urea Nitrogen 23 mg/dL (9-16); Calcium 9.1 mg/dL (8.4-10.2); Carbon Dioxide 27 mmol/L (22-29); Chloride 104 mmol/L (96-108); Creatinine Clr Calc Pharmacy 68.6; Estimated Glomerular Filt Rate > 60; Potassium 4.3 mmol/L (3.3-5.1); Salicylate < 5.0 mg/dL (15-30); Sodium 137 mmol/L (135-145); Total Protein 7.3 g/dL (6.5-8.0)
--- NOTE | 2024-11-19 21:59 | ED.PSYCH ---
HPI - Psych General Chief Complaint: Psychiatric Symptoms Stated Complaint: si Time Seen by Provider: 11/19/24 21:46 History of Present Illness ED Provider: Antonio Rodriguez MD HPI Narrative: 59-year-old male who desires mental health evaluation. Chronic bipolar says he is homeless living in a residential having issues dealing with being from his . No access to weapons. Suicidal ideation with plan no medical complaints Related Data Home Medications ?Medication ?Instructions ?Recorded ?Confirmed melatonin 10 mg tablet 10 mg PO BEDTIME 06/28/24 11/03/24 metformin 1,000 mg tablet 1,000 mg PO BID 06/28/24 11/20/24 albuterol sulfate 90 mcg/actuation 2 puff inhalation QID PRN wheezing 09/06/24 11/20/24 aerosol inhaler aspirin 81 mg tablet,delayed 81 mg PO DAILY 09/06/24 11/20/24 release atorvastatin 40 mg tablet 20 mg PO DAILY 09/06/24 11/20/24 gabapentin 300 mg capsule 300 mg PO TID PRN neuropathy 09/06/24 11/20/24 quetiapine 400 mg tablet 400 mg PO DAILY@1700 09/06/24 11/20/24 quetiapine 50 mg tablet 50 mg PO BID PRN AGITATION/RACING 09/06/24 11/20/24 THOUGHTS trazodone 50 mg tablet 50 mg PO BEDTIME PRN Sleep 09/06/24 11/20/24 hydroxyzine pamoate 50 mg capsule 50 mg PO BID PRN Anxiety 10/24/24 11/20/24 paroxetine HCl 20 mg tablet 40 mg PO DAILY 10/24/24 11/20/24 acetaminophen 500 mg tablet 1,000 mg PO Q6H PRN mild pain 11/20/24 11/20/24 cyclobenzaprine 10 mg tablet 10 mg PO BID PRN Muscle Spasm 11/20/24 11/20/24 docusate sodium 100 mg capsule 100 mg PO Q12H 11/20/24 11/20/24 ibuprofen 200 mg tablet 400 mg PO Q6H PRN fever 11/20/24 11/20/24 insulin glargine 100 unit/mL 15 unit subcut BEDTIME diabetes 11/20/24 11/20/24 subcutaneous solution (Lantus mellitus U-100 Insulin) naproxen 375 mg tablet 375 mg PO BID 11/20/24 11/20/24 ondansetron 4 mg disintegrating 4 mg PO Q8H PRN Nausea And Vomiting 11/20/24 11/20/24 tablet pantoprazole 40 mg tablet,delayed 40 mg PO BID 11/20/24 11/20/24 release Previous Rx's ?Medication ?Instructions ?Recorded insulin lispro 100 unit/mL See Protocol subcut QIDACHS 30 06/15/24 subcutaneous solution (Admelog days #10 mL U-100 Insulin lispro) sitagliptin phosphate 100 mg 100 mg PO DAILY 30 days #30 tabs 06/15/24 tablet (Januvia) polyethylene glycol 3350 17 See Rx Instructions .Route 10/24/24 gram/dose oral powder (Miralax) .COMPLEX #119 grams Allergies Allergy/AdvReac Type Severity Reaction Status Date / Time glipizide (GLIPIZIDE) Allergy Intermediate ITCHY Verified 11/19/24 21:10 oxycodone Allergy Hives Verified 11/19/24 21:10 [facility] Past Medical History Medical History Asthma Depression MDD (major depressive disorder), recurrent episode, moderate Cocaine use disorder Substance-induced psychotic disorder Anxiety Diabetes Surgical History History of facial surgery H/O knee surgery Social History Social History Household Members: None Housing: Homeless Do you presently have visiting nurse or other home services: No Unable to assess alcohol history related to: Refusing to respond Alcohol intake: current Alcohol intake frequency: a few times a month Alcohol type: beer Patient Tobacco Use Status: Current everyday Tobacco user Tobacco use type: Cigarette Cigarette Packs Per Day: 1 Cigarettes Per Day: 20.0 Years Smoked: 35 Smoked in Last 30 Days: No e-Cigarette/Vaping Use: Former Use Second Hand Smoke Exposure: No Use of substances other than those prescribed or required for medical reasons: No Substance Use Type: Crack/Cocaine Advance Directives: Yes Advance Directives on File: Yes Advance Directives Date on File: 10/24/21 Do you have a plan to hurt others: No Plan service: No Sexual orientation: Straight/Heterosexual Physical Exam Exam: Exam: Appearance: Alert. Oriented X3. No acute distress. Eyes: Pupils equal, round and reactive to light. ENT: Pharynx normal. Neck: Normal inspection. Neck supple. CVS: Normal heart rate and rhythm. Pulses normal. Respiratory: No respiratory distress. Breath sounds normal. Abdomen: Soft and nontender. Skin: Skin warm and dry. Normal skin color. Extremities: No lower extremity edema. Neuro: Oriented X 3. No motor deficit. No sensory deficit. cranial nerve exam not applicable Psych: SI with plan. Vital Signs: Vital Signs: Last Vital Signs Temp 97.3 F 11/20/24 12:13 Pulse 72 11/20/24 12:13 Resp 18 11/20/24 12:13 BP 151/71 H 11/20/24 12:13 Pulse Ox 100 11/20/24 12:13 O2 Del Method Room Air 11/20/24 12:13 BMI result Body Mass Index 28.7 Course Reevaluation(s) Reevaluation #1: 23:04 we will initiate physician observation at this time for crisis/psychiatric evaluation likely admission Time: 12:07 Reevaluation #3: Patient cleared by Crisis. Will be discharge to living room. Medications Administered Discontinued Medications Generic Name Dose Route Start Last Admin Trade Name Freq PRN Reason Stop Dose Admin Insulin Human Lispro 5 unit 11/19/24 22:33 11/19/24 22:59 Insulin Lispro 100 Unit/Ml 3 Ml Vial SUBCUT 11/19/24 22:34 5 unit ONCE ONE Administration Medical Decision Making Medical Decision Making MDM Narrative: Medical Decision Makin-year-old male with bipolar depression currently on domicile. Suicidal with active plan. Calm comfortable no gross psychosis. No injuries or acute medical issues. Medical workup unremarkable. Preliminary Favored Differential Diagnosis: Decompensated bipolar, suicidal thoughts, secondary gain/malingering among additional considered etiologies Testing Interpreted Independently: ?See below for details Radiology or Lab testing Results Reviewed: ?See below for details Consults: ?See below for details Independent Historians/External Chart Reviews: ?See below for details Social Determinants of Health Impacting MDM/Planning: ?See below for details Consult Healthcare Provider Management of the patient was discussed with: Behavioral Health Provider Lab Data MDM Lab Attestation statement: I reviewed the patient's lab results. 11/19/24 21:23 11/19/24 21:23 Labs: Lab Results 0911/19/24 11/20/24 Range/Units 21:23 22:07 07:02 WBC 6.7 (4.8-10.8) X10*3/uL RBC 4.34 L (4.60-5.80) X10*6/uL Hgb 12.0 L (14.0-18.0) g/dl Hct 35.8 L (42.0-52.0) % MCV 82.5 (80.0-98.0) fL MCH 27.6 (27.0-33.0) pg MCHC 33.5 (31.0-36.0) g/dl RDW 14.2 (11.0-16.0) % Plt Count 240 (160-400) X10*3/uL MPV 9.9 (9.4-12.4) fL Immature Gran % (Auto) 0.4 (0.0-0.4) % Neut % (Auto) 63.8 (45-73) % Lymph % (Auto) 24.8 (20-40) % Ford % (Auto) 9.3 (2-11) % Eos % (Auto) 1.3 (0-4) % Baso % (Auto) 0.4 (0-2) % Lymph # (Auto) 1.7 (1.2-4.9) X10*3/uL Ford # (Auto) 0.6 (0.1-1.2) X10*3/uL Eos # (Auto) 0.1 (0.0-0.4) X10*3/uL Baso # (Auto) 0.0 (0.0-0.2) X10*3/uL Abs Immat Gran (auto) 0.03 (0.00-0.03) X10*3/uL Absolute Neuts (auto) 4.3 (2.0-8.3) x10*3/uL Absolute Nucleated RBC 0.000 (0.0-0.012) X10*3/uL Nucleated RBC % (auto) 0.0 (0.0-0.2) /100WBC Sodium 137 (135-145) mmol/L Potassium 4.3 (3.3-5.1) mmol/L Chloride 104 (96-108) mmol/L Carbon Dioxide 27 (22-29) mmol/L Anion Gap 10 L (12-20) BUN 23 H (9-16) mg/dL Creatinine 1.17 (0.5-1.4) mg/dL Estim Creat Clear Calc 68.6 Estimated GFR > 60 POC Glucose 217 H (60-115) mg/dL Random Glucose 278 H (60-115) mg/dL Calcium 9.1 (8.4-10.2) mg/dL Total Bilirubin 0.3 (0.0-1.0) mg/dL AST 27 (5-37) U/L ALT 42 H (0-40) U/L Alkaline Phosphatase 82 (39-117) U/L Total Protein 7.3 (6.5-8.0) g/dL Albumin 4.3 (3.5-5.0) g/dL Urine Color Yellow Urine Appearance Clear Urine pH 5.5 (5.0-9.0) Ur Specific Jones >= 1.030 H (1.005-1.025) Urine Protein Trace (Neg-Trace) mg/dL Urine Glucose (UA) 500 H (Negative) mg/dL Urine Ketones Negative (Negative) mg/dL Urine Blood Negative (Negative) Urine Nitrite Negative (Negative) Ur Leukocyte Esterase Negative (Negative) Salicylates < 5.0 L (15-30) mg/dL Urine Opiates Screen Not Detected (Not Detect) Ur Buprenorphine Scrn Not Detected (Not Detect) ng/mL Ur Oxycodone Screen Not Detected (Not Detect) ng/mL Urine Methadone Screen Not Detected (Not Detect) ng/mL Urine Fentanyl Screen Not Detected (Not Detect) Acetaminophen < 3 (<30) mcg/mL Ur Barbiturates Screen Not Detected (Not Detect) Ur Phencyclidine Scrn Not Detected (Not Detect) Ur Amphetamines Screen Not Detected (Not Detect) U Benzodiazepines Scrn Not Detected (Not Detect) Urine Cocaine Screen Not Detected (Not Detect) U Marijuana (THC) Screen Not Detected (Not Detect) Ethyl Alcohol < 10 mg/dL COVID-19 (BETY) Negative (Negative) COVID-19 Clin Com See Note Discharge Plan Discharge Clinical Impression: Depression Patient Disposition: Xfer Other Transfer Details: Living Room Prescriptions: No Action insulin lispro [Admelog U-100 Insulin lispro] 100 unit/mL Solution See Protocol subcut QIDACHS 30 Days Qty: 10 0RF Protocol: Insulin Correction Scale Less than or equal to 110 ---- Give (units): 0 111 to 150 Give (units): 0 151 to 200 Give (units): 2 201 to 250 Give (units): 4 251 to 300 Give (units): 6 301 to 350 Give (units): 8 Greater than 350 Give (units): 10 Call MD if Blood Glucose > : 350 Januvia 100 mg tablet 100 mg PO DAILY 30 Days Qty: 30 0RF metformin 1,000 mg tablet 1,000 mg PO BID melatonin 10 mg tablet 10 mg PO BEDTIME aspirin 81 mg tablet,delayed release (DR/EC) 81 mg PO DAILY quetiapine 50 mg tablet 50 mg PO BID PRN (Reason: AGITATION/RACING THOUGHTS) quetiapine 400 mg tablet 400 mg PO DAILY@1700 gabapentin 300 mg capsule 300 mg PO TID PRN (Reason: neuropathy) albuterol sulfate 90 mcg/actuation HFA aerosol inhaler 2 puff INHALATION QID PRN (Reason: wheezing) trazodone 50 mg tablet 50 mg PO BEDTIME PRN (Reason: Sleep) atorvastatin 40 mg tablet 20 mg PO DAILY paroxetine HCl 20 mg Tablet 40 mg PO DAILY hydroxyzine pamoate 50 mg capsule 50 mg PO BID PRN (Reason: Anxiety) cyclobenzaprine 10 mg tablet 10 mg PO BID PRN (Reason: Muscle Spasm) naproxen 375 mg tablet 375 mg PO BID ondansetron 4 mg tablet,disintegrating 4 mg PO Q8H PRN (Reason: Nausea And Vomiting) acetaminophen 500 mg tablet 1,000 mg PO Q6H PRN (Reason: mild pain) pantoprazole 40 mg tablet,delayed release (DR/EC) 40 mg PO BID ibuprofen 200 mg tablet 400 mg PO Q6H PRN (Reason: fever) docusate sodium 100 mg capsule 100 mg PO Q12H insulin glargine [Lantus U-100 Insulin] 100 unit/mL solution 15 unit subcut BEDTIME polyethylene glycol 3350 [Miralax] 17 gram/dose powder See Rx Instructions .ROUTE .COMPLEX Qty: 119 0RF Rx Instructions: 17 g orally per instructions in your discharge paperwork. Interventions: Sutton-Suicide Risk Severity Scale Last Done: 11/19/24 22:08 ED Discharge Assessment Last Done: 11/20/24 12:13 Discharge Date/Time: 11/20/24 12:27 Print Language: Danish
--- NOTE | 2024-11-19 22:06 | PC.NURSE ---
Patient brought to [facility] from ED 4 [facility]. Patient was changed over into a behavioral/safety prior coming to behavioral pod. Patient is alert and oriented x4, calm, and cooperative. Patient reports severe anxiety and depression, SI with plan to cut his throat. Patient denies AH/VH/HI. Urine sample obtained and sent to lab for processing. Patient oriented to behavioral pod, patient currently resting in bed, offer no complaints.
[2024-11-19 22:25] LABS: Appearance Urine Clear; Glucose Urine UA 500 mg/dL (Negative); PH 5.5 (5.0-9.0); Specific Gravity - Urine >= 1.030 (1.005-1.025)
[2024-11-19 22:26] LABS: Cannabinoid Screen Urine Not Detected (Not Detect)
--- NOTE | 2024-11-19 22:28 | MHC.EDTECH ---
all belongings with the exception of medication locked up in [facility] shelf 4 due to the size of the bag which would not fit in the locker. All belongings stored on the shelf with the exception of patients medication which was handed to the nurses to verify. All belongings searched with shannon and BANDAR Ortiz ed tech
[2024-11-20 06:28] VITALS: BP 129/64; PULSE 78; RESP 16; TEMP 36.6; O2SAT 98
[2024-11-20 07:07] LABS: Glucose, Whole Blood 217 mg/dL (60-115)
--- NOTE | 2024-11-20 08:56 | PC.NURSE ---
obtained report from marielos, patient currently sleeping, rr equal/non labored, breakfast at bedside for when he wakes. previous nurse brought home medications to pharmacy to lock up, med req needs to be completed, plan of care ongoing
--- NOTE | 2024-11-20 09:50 | PC.NURSE ---
med req pharmacy is aware med req is needing to be done and it is on the list
--- NOTE | 2024-11-20 10:29 | PHA.MEDREC ---
Pharmacy Consult ? Medication Reconciliation Pharmacy has completed the medication reconciliation. Utilized Claims and patient's Rx bottle brought to pharmacy from nursing.
[2024-11-20 12:13] VITALS: BP 151/71; PULSE 72; RESP 18; TEMP 36.3; O2SAT 100
== END 2024-11-20 12:27 | disposition other institution (70) ==
PROVIDERS: Physician Assistant Medical; Emergency Provider Emergency Medicine
DX: F33.9 Major depressive disorder, recurrent, unspecified (principal); R45.851 Suicidal ideations; Z79.899 Other long term (current) drug therapy; Z11.52 Encounter for screening for COVID-19; Z51.81 Encounter for therapeutic drug level monitoring
CPT/HCPCS: 36415; 80053; 80143; 80179; 80307; 81003; 82947; 85025; 87635; 99285; S9485

== ENCOUNTER 2024-12-01 21:15 | Emergency (ER) | payer OTHER, SELFPAY ==
[2024-12-01 21:19] VITALS: BP 187/81; PULSE 101; RESP 20; TEMP 36.4; O2SAT 99; BMI 27.4
[2024-12-01 23:26] VITALS: BP 158/83; PULSE 91; RESP 18; O2SAT 97
[2024-12-01] MEDS: Magnesium Hydrox/Alum Hydrox 30 ML ORAL.SUSP PO (23:43)
[2024-12-01] MEDS: Lidocaine HCl Viscous 2 % 15 ML SOLUTION MUCOUS MEM (23:43)
--- NOTE | 2024-12-01 23:43 | ED.GENADULT ---
HPI - General Adult General Chief complaint: General Medical Stated complaint: nose infection,abd pain Time Seen by Provider: 12/01/24 23:21 Source: patient Mode of arrival: ambulatory Limitations: no limitations History of Present Illness ED Provider: Dr. Taylor Church HPI narrative: Patient comes to the emergency room complaining of abdominal burning sensation, also complaining of a possible nose infection. Patient states that he has been having nausea, no vomiting or diarrhea. No fever chills. For the nose infection. Patient states that he suspects that he has a notices infection because he saw boogers in his nose. Denies nasal pus drainage, denies pain or blood. Patient is well-known to the emergency room for psychiatric disorders, anxiety, depression, hallucinations. Patient denies SI or HI. Related Data Home Medications ?Medication ?Instructions ?Recorded ?Confirmed melatonin 10 mg tablet 10 mg PO BEDTIME 06/28/24 11/03/24 metformin 1,000 mg tablet 1,000 mg PO BID 06/28/24 11/20/24 albuterol sulfate 90 mcg/actuation 2 puff inhalation QID PRN wheezing 09/06/24 11/20/24 aerosol inhaler aspirin 81 mg tablet,delayed 81 mg PO DAILY 09/06/24 11/20/24 release atorvastatin 40 mg tablet 20 mg PO DAILY 09/06/24 11/20/24 gabapentin 300 mg capsule 300 mg PO TID PRN neuropathy 09/06/24 11/20/24 quetiapine 400 mg tablet 400 mg PO DAILY@1700 09/06/24 11/20/24 quetiapine 50 mg tablet 50 mg PO BID PRN AGITATION/RACING 09/06/24 11/20/24 THOUGHTS trazodone 50 mg tablet 50 mg PO BEDTIME PRN Sleep 09/06/24 11/20/24 hydroxyzine pamoate 50 mg capsule 50 mg PO BID PRN Anxiety 10/24/24 11/20/24 paroxetine HCl 20 mg tablet 40 mg PO DAILY 10/24/24 11/20/24 acetaminophen 500 mg tablet 1,000 mg PO Q6H PRN mild pain 11/20/24 11/20/24 cyclobenzaprine 10 mg tablet 10 mg PO BID PRN Muscle Spasm 11/20/24 11/20/24 docusate sodium 100 mg capsule 100 mg PO Q12H 11/20/24 11/20/24 ibuprofen 200 mg tablet 400 mg PO Q6H PRN fever 11/20/24 11/20/24 insulin glargine 100 unit/mL 15 unit subcut BEDTIME diabetes 11/20/24 11/20/24 subcutaneous solution (Lantus mellitus U-100 Insulin) naproxen 375 mg tablet 375 mg PO BID 11/20/24 11/20/24 ondansetron 4 mg disintegrating 4 mg PO Q8H PRN Nausea And Vomiting 11/20/24 11/20/24 tablet pantoprazole 40 mg tablet,delayed 40 mg PO BID 11/20/24 11/20/24 release Previous Rx's ?Medication ?Instructions ?Recorded insulin lispro 100 unit/mL See Protocol subcut QIDACHS 30 06/15/24 subcutaneous solution (Admelog days #10 mL U-100 Insulin lispro) sitagliptin phosphate 100 mg 100 mg PO DAILY 30 days #30 tabs 06/15/24 tablet (Januvia) polyethylene glycol 3350 17 See Rx Instructions .Route 10/24/24 gram/dose oral powder (Miralax) .COMPLEX #119 grams omeprazole 20 mg capsule,delayed 20 mg PO DAILY #30 caps 12/02/24 release Allergies Allergy/AdvReac Type Severity Reaction Status Date / Time glipizide (GLIPIZIDE) Allergy Intermediate ITCHY Verified 12/01/24 21:20 oxycodone Allergy Hives Verified 12/01/24 21:20 Review of Systems Review of Systems: Constitutional : No Weight loss, No Fever, No Chills, No Night Sweats, No Fatigue, No Malaise ENT/Mouth : No Hearing loss, No Ear Pain, No Nasal Congestion, No Sinus Pain, No Hoarseness, No sore throat, No Rhinorrhea, No Swallowing Difficulty Eyes: No Eye Pain, No Swelling, No Redness, No Foreign Body, No Discharge, No Vision Changes Cardiovascular : No Chest Pain, No SOB, No Dyspnea on Exertion, No Orthopnea, No Edema, No Palpitations Respiratory : No Cough, No Sputum, No Wheezing, No Smoke Exposure, No Dyspnea Gastrointestinal : Complaining of nausea, no vomiting, complaining of abdominal burning sensation without significant abdominal pain, No Diarrhea, No Constipation, No Hematochezia, No Melena Genitourinary : no irregular bleeding, No Dysuria, No Urinary Frequency, No Hematuria, No Urinary Incontinence, No Urgency, No Flank Pain, No Urinary Flow Changes, No Hesitancy Musculoskeletal : No joint pain, No Myalgias, No Joint Swelling Skin : No Skin Lesions, No rash Neuro : No Weakness, No Numbness, No Paresthesias, No Loss of Consciousness, No Dizziness, No Headache Psych : No Anxiety/Panic, No Depression, No SI/HI/AH/VH, No Social Issues, Heme/Lymph: No Bruising, No Bleeding,No Lymphadenopathy Endocrine : No Polyuria, No Polydipsia, No Temperature Intolerance [facility] Past Medical History Medical History Asthma Depression MDD (major depressive disorder), recurrent episode, moderate Cocaine use disorder Substance-induced psychotic disorder Anxiety Diabetes Surgical History History of facial surgery H/O knee surgery Social History Social History Household Members: None Housing: Homeless Do you presently have visiting nurse or other home services: No Alcohol intake: current Alcohol intake frequency: a few times a month Alcohol type: beer Patient Tobacco Use Status: Current everyday Tobacco user Tobacco use type: Cigarette Cigarette Packs Per Day: 1 Cigarettes Per Day: 20.0 Years Smoked: 35 Smoked in Last 30 Days: Yes e-Cigarette/Vaping Use: Former Use Second Hand Smoke Exposure: No Use of substances other than those prescribed or required for medical reasons: No Substance Use Type: Crack/Cocaine Advance Directives: Yes Advance Directives on File: Yes Advance Directives Date on File: 10/24/21 service: No Sexual orientation: Straight/Heterosexual Physical Exam ED Exam Exam: Appearance: Alert. Oriented X3. No acute distress. Eyes: Pupils equal, round and reactive to light. ENT: Pharynx normal. Nostrils within normal limits, no blood, no obvious signs of infection, no serosanguineous fluid or pus Neck: Normal inspection. Neck supple. No lymph nodes noted. No crepitus CVS: Normal heart rate and rhythm. Pulses normal. Normal S1 and S2 Respiratory: No respiratory distress. Breath sounds normal. No Wheezing. No rales Abdomen: Soft and nontender. No rigidity. No distention. Skin: Skin warm and dry. Normal skin color. Normal skin turgor. Extremities: No lower extremity edema. No Lacerations. No Rash Neuro: Oriented X 3. No motor deficit. No sensory deficit. Moving all extremities. No slurred speech. CN 2 through 12 grossly intact Psych: calm, cooperative, normal affect Vital Signs: Vital Signs - 24 hr 12/01/24 21:19 12/01/24 23:26 Temperature 97.6 F Pulse Rate 101 H 91 Respiratory Rate 20 18 Blood Pressure 187/81 H 158/83 H Pulse Oximetry 99 97 Oxygen Delivery Method Room Air Room Air BMI result Body Mass Index 27.4 Course Course Course Narrative: All of patient's labs pending Physical exam reassuring, no pain to palpation in the abdomen, nose exam does not show any significant acute abnormality. Patient receiving p.o. viscous lidocaine and Maalox for symptomatic relief. Medications Administered Discontinued Medications Generic Name Dose Route Start Last Admin Trade Name Freq PRN Reason Stop Dose Admin Al Hydroxide/Mg Hydroxide 30 ml 12/01/24 23:34 12/01/24 23:43 Magnesium Hydrox/Alum Hydrox 30 Ml Oral.Susp PO 12/01/24 23:35 30 ml ONCE ONE Administration Lidocaine HCl 15 ml 12/01/24 23:34 12/01/24 23:43 Lidocaine Hcl Viscous 2 % 15 Ml Solution MUCOUS MEM 12/01/24 23:35 15 ml ONCE ONE Administration Medical Decision Making Medical Decision Making [facility] Narrative: My interpretation of labs: No significant abnormality in patient's hematology or chemistry, normal LFTs, normal lipase, ETOH negative My interpretation of EKG: Normal sinus rhythm: Chronic ST segment abnormality in 2 3 AVF, seen since September of 2024, no acute changes. QTC 444 Overall, patient states that his abdomen feels better. No nausea or vomiting Patient denies any chest pain, only having abdominal pain earlier today, patient known to use cocaine. However, patient states that it has been 10 months that he has not use cocaine I reviewed patient's previous labs, the last time that patient tested positive for cocaine was in May of 2024, it does seem that patient is making effort to refrain from using cocaine I discussed with the patient that his nose on physical exam looks well. It is normal to have nasal secretions such as mucous/boogers in the nose Differential Diagnosis Differential Diagnoses: The differential diagnosis associated with the presentation includes (Gastritis, sinusitis, viral syndrome) Admission/Observation Consideration of admission/observation: Escalation of care including admission/observation considered (Given patient's past medical history and symptoms, observation was considered) Lab Data MDM Lab Attestation statement: I reviewed the patient's lab results. 12/01/24 23:42 12/01/24 23:42 Labs: Lab Results 12/01/24 Range/Units 23:42 WBC 10.3 (4.8-10.8) X10*3/uL RBC 5.04 (4.60-5.80) X10*6/uL Hgb 13.8 L (14.0-18.0) g/dl Hct 39.9 L (42.0-52.0) % MCV 79.2 L (80.0-98.0) fL MCH 27.4 (27.0-33.0) pg MCHC 34.6 (31.0-36.0) g/dl RDW 14.1 (11.0-16.0) % Plt Count 266 (160-400) X10*3/uL MPV 9.5 (9.4-12.4) fL Immature Gran % (Auto) 0.3 (0.0-0.4) % Neut % (Auto) 71.9 (45-73) % Lymph % (Auto) 15.7 L (20-40) % Dubois % (Auto) 11.5 H (2-11) % Eos % (Auto) 0.3 (0-4) % Baso % (Auto) 0.3 (0-2) % Lymph # (Auto) 1.6 (1.2-4.9) X10*3/uL Dubois # (Auto) 1.2 (0.1-1.2) X10*3/uL Eos # (Auto) 0.0 (0.0-0.4) X10*3/uL Baso # (Auto) 0.0 (0.0-0.2) X10*3/uL Abs Immat Gran (auto) 0.03 (0.00-0.03) X10*3/uL Absolute Neuts (auto) 7.4 (2.0-8.3) x10*3/uL Absolute Nucleated RBC 0.000 (0.0-0.012) X10*3/uL Nucleated RBC % (auto) 0.0 (0.0-0.2) /100WBC Sodium 139 (135-145) mmol/L Potassium 4.3 (3.3-5.1) mmol/L Chloride 98 (96-108) mmol/L Carbon Dioxide 29 (22-29) mmol/L Anion Gap 16 (12-20) BUN 26 H (9-16) mg/dL Creatinine 1.06 (0.5-1.4) mg/dL Estim Creat Clear Calc 74.2 Estimated GFR > 60 Random Glucose 183 H (60-115) mg/dL Calcium 9.8 D (8.4-10.2) mg/dL Total Bilirubin 0.7 (0.0-1.0) mg/dL Direct Bilirubin 0.3 (0.0-0.5) mg/dL AST 36 (5-37) U/L ALT 39 (0-40) U/L Alkaline Phosphatase 105 (39-117) U/L Total Protein 8.2 H (6.5-8.0) g/dL Albumin 4.9 (3.5-5.0) g/dL Lipase 15 (8-78) U/L Ethyl Alcohol 12 mg/dL Critical Care Time Critical Care Time Critical Care Time: Yes Total Critical Care Time: 35 Attestation: I have personally provided critical care time. Time includes review of lab data, radiology results, discussion with consultants, and monitoring for potential decompensation. Intervention performed as documented. Discharge Plan Discharge Clinical Impression: Abdominal pain, Gastritis Patient Disposition: Home, Self-Care Instructions: Abdominal Pain (ED) Additional Instructions: Please follow-up with your primary care physician tomorrow. If you have any worsening or new symptoms, please return to the emergency room or call 911 Prescriptions: New omeprazole 20 mg capsule,delayed release(DR/EC) 20 mg PO DAILY Qty: 30 0RF No Action insulin lispro [Admelog U-100 Insulin lispro] 100 unit/mL Solution See Protocol subcut QIDACHS 30 Days Qty: 10 0RF Protocol: Insulin Correction Scale Less than or equal to 110 ---- Give (units): 0 111 to 150 Give (units): 0 151 to 200 Give (units): 2 201 to 250 Give (units): 4 251 to 300 Give (units): 6 301 to 350 Give (units): 8 Greater than 350 Give (units): 10 Call MD if Blood Glucose > : 350 Januvia 100 mg tablet 100 mg PO DAILY 30 Days Qty: 30 0RF metformin 1,000 mg tablet 1,000 mg PO BID melatonin 10 mg tablet 10 mg PO BEDTIME aspirin 81 mg tablet,delayed release (DR/EC) 81 mg PO DAILY quetiapine 50 mg tablet 50 mg PO BID PRN (Reason: AGITATION/RACING THOUGHTS) quetiapine 400 mg tablet 400 mg PO DAILY@1700 gabapentin 300 mg capsule 300 mg PO TID PRN (Reason: neuropathy) albuterol sulfate 90 mcg/actuation HFA aerosol inhaler 2 puff INHALATION QID PRN (Reason: wheezing) trazodone 50 mg tablet 50 mg PO BEDTIME PRN (Reason: Sleep) atorvastatin 40 mg tablet 20 mg PO DAILY paroxetine HCl 20 mg Tablet 40 mg PO DAILY hydroxyzine pamoate 50 mg capsule 50 mg PO BID PRN (Reason: Anxiety) cyclobenzaprine 10 mg tablet 10 mg PO BID PRN (Reason: Muscle Spasm) naproxen 375 mg tablet 375 mg PO BID ondansetron 4 mg tablet,disintegrating 4 mg PO Q8H PRN (Reason: Nausea And Vomiting) acetaminophen 500 mg tablet 1,000 mg PO Q6H PRN (Reason: mild pain) pantoprazole 40 mg tablet,delayed release (DR/EC) 40 mg PO BID ibuprofen 200 mg tablet 400 mg PO Q6H PRN (Reason: fever) docusate sodium 100 mg capsule 100 mg PO Q12H insulin glargine [Lantus U-100 Insulin] 100 unit/mL solution 15 unit subcut BEDTIME polyethylene glycol 3350 [Miralax] 17 gram/dose powder See Rx Instructions .ROUTE .COMPLEX Qty: 119 0RF Rx Instructions: 17 g orally per instructions in your discharge paperwork. Print Language: Slovak
[2024-12-01 23:50] LABS: MANUAL DIFF FLAG NO
[2024-12-01 23:51] LABS: Hematocrit 39.9 % (42.0-52.0); Hemoglobin 13.8 g/dl (14.0-18.0); Imm Gran Abs Auto 0.03 X10*3/uL (0.00-0.03); Imm Gran Pct Auto 0.3 % (0.0-0.4); Lymphocytes Absolute Auto 1.6 X10*3/uL (1.2-4.9); Mean Corpuscular HGB Conc 34.6 g/dl (31.0-36.0); Mean Corpuscular Hemoglobin 27.4 pg (27.0-33.0); Mean Corpuscular Volume 79.2 fL (80.0-98.0); NRBC Abs Auto 0.000 X10*3/uL (0.0-0.012); NRBC Pct Auto 0.0 /100WBC (0.0-0.2); Platelet Count 266 X10*3/uL (160-400); Red Blood Count 5.04 X10*6/uL (4.60-5.80); White Blood Count 10.3 X10*3/uL (4.8-10.8)
--- OUTSIDE RECORDS SUMMARY | 2024-12-01 23:56 | XMS_ITS | Encounter Summary ---
Author Organization [employer] Address [address] [place] [address] Care Team Providers Care Senior Cognos Developer Name Role Phone Yoel Parrish MD Primary Care Provider [phone] Encounter Details Date Type Department Care Team (Late st Contact Info) Description 08/05/2024 Lab Requisition [facility] - Main Lab [address] [facility] [place] [address] Annie Barraza, COSTUME DESIGNER [address] [place] [address] Other retirement (current) drug therapy Social History Tobacco Use [...] for your loved ones. For example, children's ministries director or elderly care for an older [...] Date Recorded What is your living situation? 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 194 mg/dL LAB CHEMISTRY METHOD 08/05/2024 1:51 PM EDT [facility] Blood Venous blood specimen / Unknown Venipuncture / Unknown 08/05/2024 7:00 AM EDT 08/05/2024 9:58 AM EDT us Annie Barraza COSTUME DESIGNER LAB BLOOD ORDERABLES Final Re sult [facility] [address] [place] [address], [place] [phone] * (ABNORMAL) Lipid panel with reflex to direct LDL (08/05/2024 7:00 AM EDT) Cholesterol 181 0 - 200 mg/dL LAB CHEMISTRY METHOD 08/05/2024 11:26 AM EDT [facility] Triglycerides 306(H) 0 - 150 mg/dL LAB CHEMISTRY METHOD 08/05/2024 11:26 AM [facility] HDL 26(L) >=40 mg/dL LAB CHEMISTRY METHOD 08/05/2024 11:26 AM [facility] LDL Calculated 94 0 - 100 mg/dL LAB CHEMISTRY METHOD 08/05/2024 11:26 AM EDT [facility] VLDL Cholesterol Hong 61.2 mg/dL LAB CHEMISTRY METHOD 08/05/2024 11:26 AM [facility] Non HDL Chol. 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
--- OUTSIDE RECORDS SUMMARY | 2024-12-01 23:56 | XMS_ITS | Encounter Summary ---
Author Organization [employer] Address [address] [place] [address] Care Team Providers Care Government Affairs Specialist Name Role Phone Yoel Parrish MD Primary Care Provider [phone] Encounter Details Date Type Department Care Team (Late st Contact Info) Description 11/23/2024 Lab Requisition [facility] - Main Lab [address] [facility] [place] [address] Ally Gibson [facility] [place] [address] Other mcc (current) drug therapy Social History Tobacco Use Types Packs/Day Years Used Date Smoking Tobacco: Every Day Cigarettes Smokeless Tobacco: Never Alcohol Use Standard Drinks/Week Comments Not Currently [...] hearing? Answer Date of Assessment Author No 11/20/2024 8:51 PM Viji Licona RN * Are you blind or do you have serious difficulty seeing, even when wearing glasses? Answer Date of Assessment Author No 11/20/2024 8:51 PM Viji Licona RN * Do you have serious difficulty walking or climbing stairs? Answer Date of Assessment Author No 11/20/2024 8:51 PM Viji Licona RN * Do you have serious difficulty dressing or bathing? Answer Date of Assessment Author No 11/20/2024 8:51 PM Viji Licona RN * Because of a physical, mental, or emotional condition, do you have serious difficulty doing errandsalone such as visiting the doctor? Answer Date of Assessment Author No 11/20/2024 8:51 PM EDT Viji Oakes RN documented as of this encounter Mental Status * Because of a physical, mental, or emotional condition, do you have serious difficulty concentrating, remembering, or making decisions? (5 years old or older) Answer Entry Date Author No 11/20/2024 8:51 PM EDT Viji Oakes RN documented in this encounter Plan of Treatment Not on file documented as of this encounter Procedures Procedure Name Priority Date/Time Associated Diagnosis Comments LIPID PANEL WITH REFLEX TO DIRECT LDL Routine 11/23/2024 7:00 AM EDT Other mcc (current) drug therapy HEMOGLOBIN A1C Routine 11/23/2024 7:00 AM EDT Other mcc (current) drug therapy GLUCOSE, RANDOM Routine 11/23/2024 7:00 AM EDT Other transition lead (current) drug therapy documented in this encounter Results * (ABNORMAL) Hemoglobin A1c (11/23/2024 7:00 AM EDT) Hemoglobin A1C 8.5(H) <6.5 % LAB CHEMISTRY METHOD 11/23/2024 12:17 PM EDT [facility] Mean Bld Glu Estim. 197 mg/dL LAB CHEMISTRY METHOD 11/23/2024 12:17 PM EDT [facility] Blood Venous blood specimen / Unknown Venipuncture / Unknown 11/23/2024 7:00 AM EDT 11/23/2024 10:28 AM EDT Ally Gibson LAB BLOOD ORDERABLES Final Resul t [facility] [address] [place] [address], * (ABNORMAL) Glucose, random (11/23/2024 7:00 AM EDT) Glucose 216(H) 70 - 100 mg/dL LAB CHEMISTRY METHOD 11/23/2024 12:02 PM [facility] Blood Venous blood specimen / Unknown Venipuncture / Unknown 11/23/2024 7:00 AM EDT 11/23/2024 10:28 AM EDT [facility] LAB BLOOD ORDERABLES Final Resul t [facility] [address] [place] [address], [place] [phone] * (ABNORMAL) Lipid panel with reflex to direct LDL (11/23/2024 7:00 AM EDT) Cholesterol 160 0 - 200 mg/dL LAB CHEMISTRY METHOD 11/23/2024 12:02 PM [facility] Triglycerides 211(H) 0 - 150 mg/dL LAB CHEMISTRY METHOD 11/23/2024 12:02 PM [facility] HDL 38(L) >=40 mg/dL LAB CHEMISTRY METHOD 11/23/2024 12:02 PM [facility] LDL Calculated 80 0 - 100 mg/dL LAB CHEMISTRY METHOD 11/23/2024 12:02 PM [facility] Comment:Estimated LDL Calcul ated using equation: Total cholesterol - HDL cholesterol - (Triglycerides/5) VLDL Cholesterol Hong 42.2 mg/dL LAB CHEMISTRY METHOD 11/23/2024 12:02 PM [facility] Non HDL Chol. (LDL+VLDL) 122 <145 mg/dL LAB CHEMISTRY METHOD 11/23/2024 12:02 PM [facility] Chol/HDL Ratio 4.2 0.0 - 4.4 LAB CHEMISTRY METHOD 11/23/2024 12:02 PM [facility] Blood Venous blood specimen / Unknown Venipuncture / Unknown 11/23/2024 7:00 AM EDT 11/23/2024 10:28 AM EDT [facility] LAB BLOOD ORDERABLES Final Resul t [facility] [address] [place] [address], documented in this encounter Visit Diagnoses Diagnosis Other transition lead (current) drug therapy documented in this encounter Care Teams Government Affairs Specialist Relationship Specialty Start Date End Date Yeol Parrish MD [address] [place] [address] [phone] PCP - General Internal Medicine 01/27/24 documented as of this encounter
--- OUTSIDE RECORDS SUMMARY | 2024-12-01 23:56 | XMS_ITS | Encounter Summary ---
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 For example, school child care attendant or elderly care for an older [...] A1C Routine 08/26/2024 7:00 AM EDT Other snf (current) drug therapy documented in this encounter Results * (ABNORMAL) Hemoglobin A1c (08/26/2024 7:00 AM EDT) Hemoglobin A1C 8.5(H) <6.5 % LAB CHEMISTRY METHOD 08/26/2024 2:31 PM EDT [facility] Mean Bld Glu Estim. 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
--- OUTSIDE RECORDS SUMMARY | 2024-12-01 23:56 | XMS_ITS | Encounter Summary ---
Author Organization [employer] Address [address] [place] [address] Care Team Providers Care Woolen Tester Name Role Phone Yoel Parrish MD Primary Care Provider +1 [phone] Encounter Details Date Type Department Care Team (Late st Contact Info) Description 11/23/2024 Lab Requisition [facility] - Main Lab [address] [facility] [place] [address] Ally Gibson [address] [place] [phone] Social History Tobacco Use Types Packs/Day Years [...] for your loved ones. For example, child welfare manager or elderly care for an older adult? [...] Assessment Author No 11/20/2024 8:51 PM Viji Licona, MILA * Do you have serious difficulty dressing or bathing? Answer Date of Assessment Author No 11/20/2024 8:51 PM Viji Licona RN * Because of a physical, mental, or emotional condition, do you have serious difficulty doing errandsalone such as visiting the doctor? Answer Date of Assessment Author No 11/20/2024 8:51 PM Viji Licona RN documented as of this encounter Mental Status * Because of a physical, mental, or emotional condition, do you have serious difficulty concentrating, remembering, or making decisions? (5 years old or older) Answer Entry Date Author No 11/20/2024 8:51 PM Viji Licona RN documented in this encounter Plan of Treatment Not on file documented as of this encounter Visit Diagnoses Not on filedocumented in this encounter Care Teams Woolen Tester Relationship Specialty Start Date End Date Yoel Parrish MD [address] [place] [phone] PCP - General Internal Medicine 01/27/24 documented as of this encounter
--- OUTSIDE RECORDS SUMMARY | 2024-12-01 23:56 | XMS_ITS | Clinical Summary ---
Author Organization [facility] Address [address] [facility] [address] [place] [phone] Phone Care Team Providers Care Solar System Installer Name Role Phone Pcp, Unknown Primary Care [...] 5:58 AM EDT Emergency [facility] [address] [place] [address] Brenda Sofia MD Discharge Disposition: Home or Self Care 09/03/2024 12:12 AM EDT - 09/03/2024 2:18 AM EDT Emergency [facility] [address] [place] [address] Vik Arrington MD Discharge Disposition: Home or [...] Glucose, POCT 282(H) 70 - 100 mg/dL [facility] 09/04/2024 5:32 AM EDT 09/04/2024 5:38 AM EDT us Brenda Sofia MD POINT OF CARE TEST ORDERABLE S Final Result [facility] [address] [place] [address] * (ABNORMAL) CBC and differential (09/04/2024 4:28 AM EDT) WBC 8.93 4.00 - 11.00 K/uL [facility] RBC 4.75 4.50 - 5.90 M/uL [facility] HGB 13.2(L) 13.5 - 17.5 g/dL [facility] HCT 39.9(L) 41.0 - 53.0 % [facility] PLT 244 150 - 450 K/uL [facility] MCV 84.0 80.0 - 100.0 fL [facility] MCH 27.8 27.0 - 31.0 pg [facility] MCHC 33.1 32.0 - 36.0 g/dL [facility] RDW 13.5 11.5 - 14.5 % [facility] MPV 9.5 8.4 - 12.0 fL [facility] NRBC 0.00 0.00 /100 WBCs [facility] ABSOLUTE NRBC 0.00 0.00 K/uL [facility] DIFF METHOD Auto [facility] NEUTS 69.5 48.0 - 76.0 % [facility] LYMPHS 19.8 18.0 - 41.0 % [facility] MONOS 9.6 4.0 - 11.0 % [facility] EOS 0.6 0.0 - 5.0 % [facility] BASOS 0.3 0.0 - 1.5 % [facility] Granulocytes, immature (%) 0.2 0.0 - 0.9 % [facility] ABSOLUTE NEUTS 6.20 1.92 - 7.60 K/uL [facility] ABSOLUTE LYMPHS 1.77 0.72 - 4.10 K/uL [facility] ABSOLUTE MONOS 0.86 0.16 - 1.10 K/uL [facility] ABSOLUTE EOS 0.05 0.00 - 0.50 K/uL [facility] ABSOLUTE BASOS 0.03 0.00 - 0.15 K/uL [facility] Granulocytes, immature 0.02 0.00 - 0.09 K/uL [facility] Blood 09/04/2024 4:28 AM EDT 09/04/2024 4:30 AM EDT us Brenda Sofia MD LAB BLOOD ORDERABLES Final R esult Performing Organization Address City/[facility]/ZIP Co de Phone Number [address] [address] * (ABNORMAL) CPK (creatine kinase) (09/04/2024 4:28 AM EDT) CREATINE KINASE 257(H) 35 - 232 U/L [facility] Blood 09/04/2024 4:28 AM EDT 09/04/2024 4:30 AM EDT us Brenda Sofia MD LAB BLOOD ORDERABLES Final R esult [address] [address] * (ABNORMAL) Basic metabolic panel (09/04/2024 4:28 AM EDT) SODIUM 134 133 - 146 mmol/L [facility] CHLORIDE 99 96 - 108 mmol/L [facility] POTASSIUM 4.2 3.3 - 5.1 mmol/L [facility] CO2 23 21 - 35 mmol/L [facility] BUN 27(H) 6 - 19 mg/dL [facility] CREATININE 1.20 0.5 - 1.5 mg/dL [facility] GLUCOSE 329(H) 70 - 99 mg/dL [facility] CALCIUM 9.2 8.4 - 10.3 mg/dL [facility] EGFR 70 >59 mL/min/1.7 3m2 [facility] Comment:Estimated glomerular filtration rate calculated using the CKD-EPI refit equation. ANION GAP 16 10 - 20 mmol/L [facility] Blood 09/04/2024 4:28 AM EDT 09/04/2024 4:30 AM EDT Brenda Sofia MD LAB BLOOD ORDERABLES Final R esult Performing Organization Address City/[facility]/ZIP Co de Phone Number [address] [address] * (ABNORMAL) Urinalysis w/reflex Urine Culture (09/04/2024 2:45 AM EDT) COLOR Yellow Yellow [facility] CLARITY HAZY [facility] GLUCOSE Negative Negative [facility] BILI 1+(A) Negative [facility] KETONES Negative Negative [facility] SPECIFIC GRAVITY >1.030 1.005 - 1.030 [facility] BLOOD 1+(A) Negative [facility] PH 6.0 5.0 - 8.0 [facility] Protein-UA 3+(A) Negative [facility] NITRITE Negative Negative [facility] Leukocyte esterase, ur Negative Negative [facility] Urine (Urine) 09/04/2024 2:4 5 AM EDT 09/04/2024 2:48 AM EDT Brenda Sofia MD URINE ORDERABLES Final Resul t Performing Organization Address City/[facility]/ZIP Co de Phone Number [address] [address] * (ABNORMAL) Urine sediment (09/04/2024 2:45 AM EDT) WBC 0-4(A) NONE SEEN /hpf [facility] RBC 3-5(A) NONE SEEN /hpf [facility] URINE EPITHELIAL 0-4(A) NONE SEEN [facility] MUCUS 3+(A) NONE SEEN /hpf [facility] BACTERIA Trace(A) NONE SEEN /hpf [facility] CAST 6-10 [facility] Comment:HYALINE CAST 09/04/2024 2:45 AM EDT 09/04/2024 2:48 AM EDT us Brenda Sofia MD URINE ORDERABLES Final Resul t [address] [address] from Last 3 Months Insurance MEDICARE REPLACEMENT MEDICARE REPLACEMENT [employer] MEDICARE REPLACEMENT MEDICARE REPLACEMENT MEDIC[place] [address] [place] [address] MEDICARE REPLACEMENT ABHINAV ZAMAN [facility] Care Teams Solar System Installer Relationship Specialty Start Date End Date Pcp, Unknown PCP - General 07/16/24 Additional Source Comments The information contained in this document represents components of the legal health record. It is not the complete legal health record.[facility]
--- OUTSIDE RECORDS SUMMARY | 2024-12-01 23:56 | XMS_ITS | Encounter Summary ---
Author Organization [employer] Address [address] [place] [address] Care Team Providers Care Resource Conservationist Name Role Phone Yoel Parrish MD Primary Care Provider [phone] Encounter Details Date Type Department Care Team (Late st Contact Info) Description 08/26/2024 Lab Requisition [facility] - Main Lab [address] [facility] [place] [address] [facility] [address] [place] [address] [phone] Social History Tobacco Use Types Packs/Day Years [...] your loved ones. For example, child welfare assistant or elderly care for an older [...] on filedocumented in this encounter Care Teams Resource Conservationist Relationship Specialty Start Date End Date Yoel Parrish MD [address] [place] [phone] PCP - General Internal Medicine 01/27/24 documented as of this encounter
--- OUTSIDE RECORDS SUMMARY | 2024-12-01 23:56 | XMS_ITS ---
Author Organization [facility] Address [address] [place] [phone] Phone Care Team Providers Care Shellfish Farming Supervisor Name Role Phone Yoel Parrish MD Primary Care Provider +1 -[phone] [facility] - Housing Status:Ongoing (Active) Start date:04/11/2024 Enrollment date:04/11/2024 Enrollment reason:Walk-in Related social drivers of health:Housing Instability Related program episode:Community Health Worker Program (Closed) Overview Housing service of Community Health Worker Program Case Team Name Relationship Phone Vu Chicas(Responsible Staff) Community He alth Worker Continued Care and Services Coordination
--- OUTSIDE RECORDS SUMMARY | 2024-12-01 23:56 | XMS_ITS ---
Author Organization [facility] Address [address] [place] [phone] Phone Care Team Providers Care Grease And Tallow Pumper Name Role Phone Yoel Parrish MD Primary Care Provider +1 -[phone] [facility] - Food Insecurity Status:Ongoing (Active) Start date:04/11/2024 Enrollment date:04/11/2024 Enrollment reason:Walk-in Related social drivers of health:Food Risk Related program episode:Community Health Worker Program (Closed) Overview Community Health Worker Program - Food Insecurity Service Episode Case Team Name Relationship Phone Vu Chicas(Responsible Staff) Community He alth Worker Continued Care and Services Coordination
--- OUTSIDE RECORDS SUMMARY | 2024-12-01 23:56 | XMS_ITS ---
Author Organization [facility] Address [address] [place] [phone] Phone Care Team Providers Care Supervisor Wool Shearing Name Role Phone Yoel Parrish MD Primary Care Provider +1 -[phone] [facility] - Behavioral Health Status:Ongoing (Active) Start date:04/11/2024 Enrollment date:04/11/2024 Enrollment reason:Walk-in Related program episode:Community Health Worker Program (Closed) Overview Behavior Health service of Community Health Worker Program Case Team Name Relationship Phone Vu Chicas(Responsible Staff) Community He alth Worker Continued Care and Services Coordination
--- OUTSIDE RECORDS SUMMARY | 2024-12-01 23:57 | XMS_ITS | Encounter Summary ---
Author Organization [employer] Address [address] [place] [address] Care Team Providers Care Vending Machine Assembler Name Role Phone Yoel Parrish MD Primary Care Provider [phone] [phone] Encounter Details Date Type Department Care Team (Late st Contact Info) Description 08/29/2024 Lab Requisition [facility] - Main Lab [address] [facility] [place] [address] [facility] [address] [place] [phone] Other exterminator termite (current) drug therapy Social History Tobacco Use [...] for your loved ones. For example, children's service worker or elderly care for an older [...] 3:28 PM EDT Marcela Dimas RN * Calculated C-SSRS Risk Score (Lifetime/Recent) Answer Date of Assessment Author No Risk Indicated 09/01/2024 10:39 PM EDT Hannah Burnham RN * [place] Suicide Severity Rating Scale (Screener/Recent Self-Report) Question Answer Date of Assessment Author 1. Wish to be (Past 1 Month) No 025 10:39 PM EDT Hannah Burnham RN 2. Non-Specific Active Suici sandy Thoughts (Past 1 Month) No 09/01/2024 10:39 PM EDT Hannah Burnham RN 6. Suicidal Behavior (Lifetime) No 10:39 PM EDT Hannah Burnham RN documented as of this encounter Mental [...] PANEL Routine 08/29/2024 7:00 AM EDT Other exterminator termite (current) drug therapy documented in this encounter Results * (ABNORMAL) Basic metabolic panel (08/29/2024 7:00 AM EDT) [facility] Sodium 138 133 - 145 mmol/L LAB CHEMISTRY METHOD 08/29/2024 11:26 AM T [facility] Potassium 4.4 3.5 - 5.5 mmol/L LAB CHEMISTRY METHOD 08/29/2024 11:26 AM T [facility] Chloride 104 96 - 110 mmol/L LAB CHEMISTRY METHOD 08/29/2024 11:26 AM T [facility] CO2 28 21 [...] 7:00 AM EDT 08/29/2024 10:10 AM EDT [facility] LAB BLOOD ORDERABLES Final Resul t [facility] [address] [place] [address], documented in this encounter Visit Diagnoses Diagnosis Other exterminator termite (current) drug therapy documented in this encounter Care Teams Vending Machine Assembler Relationship Specialty Start Date End Date Yoel Parrish MD [address] [place] [phone] PCP - General Internal Medicine 01/27/24 documented as of this encounter
--- OUTSIDE RECORDS SUMMARY | 2024-12-01 23:57 | XMS_ITS | Clinical Summary ---
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 blood specimen / Unknown Venipuncture / Unknown 11/19/2024 6:05 AM EDT 11/19/2024 6:11 AM EDT [facility] BLOOD ORDERABLES Fin al Result [facility] [address] [place] [address], [place] [phone] * Lipase (11/19/2024 6:05 AM EDT) Only the most recent of2 resultswithin the time period is included. Lipase 35 13 - 75 unit/L LAB CHEMISTRY METHOD 11/19/2024 6:35 AM EDT [facility] Blood Venous blood specimen / Unknown Venipuncture / Unknown 11/19/2024 6:05 AM EDT 11/19/2024 6:11 AM EDT [facility] BLOOD ORDERABLES Fin al Result [facility] [address] [place] [address], [place] [phone] * (ABNORMAL) Basic metabolic panel (11/03/2024 7:47 PM EDT) Sodium 136 133 - 145 mmol/L LAB CHEMISTRY METHOD 11/03/2024 8:53 PM [facility] Potassium 4.2 3.5 - 5.5 mmol/L LAB CHEMISTRY METHOD 11/03/2024 8:53 PM [facility] Chloride 101 96 - 110 mmol/L LAB CHEMISTRY METHOD 11/03/2024 8:53 PM [facility] CO2 30 21 - 32 mmol/L LAB CHEMISTRY METHOD 11/03/2024 8:53 PM [facility] Anion Gap 5 3 - 11 LAB CHEMISTRY METHOD 11/03/2024 8:53 PM [facility] Glucose 202(H) 70 - 100 mg/dL LAB CHEMISTRY METHOD 11/03/2024 8:53 PM [facility] BUN 27(H) 5 - 25 mg/dL LAB CHEMISTRY METHOD 11/03/2024 8:53 PM [facility] Creatinine 1.08 0.70 - 1.30 mg/dL LAB CHEMISTRY METHOD 11/03/2024 8:53 PM [facility] eGFR 80 >=60 mL/min/1. 73m2 LAB CHEMISTRY METHOD 11/03/2024 8:53 PM [facility] Comment:Calculation based on the Chronic Kidney Disease Epidemiology Collaboration (CKD-EPI) equation refit without adjustment for race. BUN/Creatinine Ratio 25.0 LAB CHEMISTRY METHOD 11/03/2024 8:53 PM [facility] Calcium 9.4 8.5 - 10.5 mg/dL LAB CHEMISTRY METHOD 11/03/2024 8:53 PM [facility] Blood Venous blood specimen / Unknown Venipuncture / Unknown 11/03/2024 7:47 PM EDT 11/03/2024 8:24 PM EDT Charles Wilhelm MD LAB BLOOD ORDERABLES Final Result [facility] [address] [place] [address], * XR Hand 3+ Views Right (10/04/2024 12:43 AM EDT) Anatomical Region Laterality Modality Upper Extremities, Hand Right [facility] 10/04/2024 6:58 AM EDT Impressions 10/04/2024 7:01 AM EDT No fracture or subluxation of the hand. Please note that carpal region injuries can be radiographically occult. -------- FINAL REPORT -------- Dictated By: Ethan Dimas Dictated Date: 10/04/2024 06:58 ET Assigned Physician: Ethan Dimas Reviewed and Electronically Signed By: Ethan Dimas Signed Date: 10/04/2024 07:01 ET Workstation ID: [id number] Transcribed By: Self Edit Transcribed Date: 10/04/2024 [...] Signed Date: 10/04/2024 07:01 ET Workstation ID: [id number] Transcribed By: Self Edit Transcribed Date: 10/04/2024 06:58 ET Pilar Landeros MD IMG XR PROCEDURES Final Result * ECG 12 lead (10/04/2024 12:10 AM EDT) Ventricular Rate ECG 95 BPM GEMUSE Atrial Rate 95 BPM GEMUSE P-R Interval 136 ms GEMUSE QRS Duration 88 ms GEMUSE Q-T Interval 368 ms GEMUSE QTc 462 ms GEMUSE P Wave [place] 46 degrees GEMUSE R [place] 56 degrees GEMUSE T [place] 21 degrees GEMUSE ECG Interpretation Normal sinus [...] by: Jossue Mondragon MD on 09/29/2024 01:37:39 Lroy Silva MACHINE M[employer]DER IMG CT PROCEDURES Final R esult * (ABNORMAL) Urinalysis with reflex microscopic and culture (09/05/2024 6:59 PM EDT) Specific [place] Urine 1.031(H) 1.003 - 1.030 LAB URINALYSIS - AUTOMATED METHOD 09/05/2024 7:49 PM [facility] pH, Urine 5.5 5.0 - 8.0 pH LAB URINALYSIS - AUTOMATED METHOD 09/05/2024 7:49 PM [facility] Leukocytes, Urine Negative Negative LAB URINALYSIS - AUTOMATED METHOD 09/05/2024 7:49 PM [facility] Nitrite, Urine Negative Negative LAB URINALYSIS - AUTOMATED METHOD 09/05/2024 7:49 PM [facility] Protein, Urine 100(A) <=Trace mg/dL LAB URINALYSIS - AUTOMATED METHOD 09/05/2024 7:49 PM [facility] Glucose, Urine Negative Negative mg/dL LAB URINALYSIS - AUTOMATED METHOD 09/05/2024 7:49 PM [facility] Ketones, Urine Trace(A) Negative mg/dL LAB URINALYSIS - AUTOMATED METHOD 09/05/2024 7:49 PM [facility] Urobilinogen, Urine 1.0 0.2 - 1.0 mg/dL LAB URINALYSIS - AUTOMATED METHOD 09/05/2024 7:49 PM [facility] Bilirubin, Urine Negative Negative LAB URINALYSIS - AUTOMATED METHOD 09/05/2024 7:49 PM [facility] Blood, Urine Trace(A) Negative LAB URINALYSIS - AUTOMATED METHOD 09/05/2024 7:49 PM EDT [facility] RBC, Urine 2.2 0 - 4 /HPF LAB URINALYSIS - AUTOMATED METHOD 09/05/2024 7:49 PM EDT [facility] WBC, Urine 1.2 0 - 4 /HPF LAB URINALYSIS - AUTOMATED METHOD 09/05/2024 7:49 PM EDT [facility] Squamous Epithelial, Urine 15 0 - 60 /LPF LAB URINALYSIS - AUTOMATED METHOD 09/05/2024 7:49 PM EDT [facility] Bacteria, Urine Negative Negative /HPF LAB URINALYSIS - AUTOMATED METHOD 09/05/2024 7:49 PM EDT [facility] Hyaline Casts, Urine 0.8 0 - 3 /LPF LAB URINALYSIS - AUTOMATED METHOD 09/05/2024 7:49 PM EDT [facility] Urine Urine specimen obtained by clean catch procedure / Unknown Non-blood Collection / Unknown 09/05/2024 6:59 PM EDT 09/05/2024 7:27 PM EDT Charles Wilhelm MD LAB URINE ORDERABLES Final Result Performing Organization Address [facility]/ZIP Co de Phone Number [facility] [address] [place] [address], * [place] urine culture tube (09/05/2024 6:59 PM EDT) Extra Tube Hold for add-ons. 09/05/2024 9:01 PM EDT [facility] Comment:Auto resulted. Urine Urine specimen obtained by clean catch procedure / Unknown Non-blood Collection / Unknown 09/05/2024 6:59 PM EDT 09/05/2024 7:28 PM EDT Charles Wilhelm MD LAB URINE ORDERABLES Final Result Performing Organization Address [facility]/ZIP Co de Phone Number [facility] [address] [place] [address], [place] [phone] * XR Hip 2-3 Views Right (09/02/2024 [...] Signed Date: 09/02/2024 07:56 ET Workstation ID: [id number] Transcribed By: Self Edit Transcribed Date: 09/02/2024 [...] Signed Date: 09/02/2024 07:56 ET Workstation ID: [id number] Transcribed By: Self Edit Transcribed Date: 09/02/2024 [...] Signed Date: 09/02/2024 07:56 ET Workstation ID: [id number] Transcribed By: Self Edit Transcribed Date: 09/02/2024 [...] Signed Date: 09/02/2024 07:56 ET Workstation ID: [id number] Transcribed By: Self Edit Transcribed Date: 09/02/2024 07:55 ET Elias Uribe MD IMG XR PROCEDURES Final Result from Last 3 Months Insurance [facility] [employer] [employer] Member Subscriber Plan / Payer (Ef fective 2024-Present) Name:ANDREAS CONWAY Relation to Subscriber:Self Name:Andreas Conway Payer ID:[id number] Group ID:[id number] Type:Not on file Address: [place] [address] [address] [id number] Care Teams Clay Washer Relationship Specialty Start Date End Date Yoel Parrish MD [address] [place] [address] [phone] PCP - General Internal Medicine 01/27/24
--- OUTSIDE RECORDS SUMMARY | 2024-12-01 23:57 | XMS_ITS | Encounter Summary ---
Author Organization [employer] Address [address] [place] [address] Care Team Providers Care Extrusion Die Corrector Name Role Phone Yoel Parrish MD Primary Care Provider [phone] Encounter Details Date Type Department Care Team (Late st Contact Info) Description 08/29/2024 Lab Requisition [facility] Lab [address] [facility] [place] [address] [facility] [address] [place] [address] [id number] Social History Tobacco Use Types Packs/Day Years [...] 10:39 PM EDT Hannah Burnham RN * Holmes Suicide Severity Rating Scale (Screener/Recent Self-Report) Question [...] on filedocumented in this encounter Care Teams Extrusion Die Corrector Relationship Specialty Start Date End Date Yoel Parrish MD [address] [place] [phone] PCP - General Internal Medicine 01/27/24 documented as of this encounter
[2024-12-02 00:08] LABS: Alanine Aminotransferase 39 U/L (0-40); Albumin Level 4.9 g/dL (3.5-5.0); Alkaline Phosphatase 105 U/L (39-117); Anion Gap 16 (12-20); Aspartate Amino Transferase 36 U/L (5-37); Blood Urea Nitrogen 26 mg/dL (9-16); Calcium 9.8 mg/dL (8.4-10.2); Carbon Dioxide 29 mmol/L (22-29); Chloride 98 mmol/L (96-108); Creatinine Clr Calc Pharmacy 74.2; Estimated Glomerular Filt Rate > 60; Lipase 15 U/L (8-78); Potassium 4.3 mmol/L (3.3-5.1); Sodium 139 mmol/L (135-145); Total Protein 8.2 g/dL (6.5-8.0)
--- NOTE | 2024-12-02 00:28 | ECG_ITS ---
Test Reason : ABDOMINAL PAIN Blood Pressure : */* mmHG Vent. Rate : 89 BPM Atrial Rate : 89 BPM P-R Int : 146 ms QRS Dur : 86 ms QT Int : 374 ms P-R-T Axes : 61 60 15 degrees QTcB Int : 455 ms Normal sinus rhythm cannot exclude old Inferior infarct , age undetermined Abnormal ECG When compared with ECG of 24-Oct-2024 18:13, No significant change was found Referred By: Taylor Church Electronically Signed By: EARLINE GALLAGHER
[2024-12-02 01:49] VITALS: BP 158/83; PULSE 91; RESP 18; TEMP 36.6; O2SAT 97
== END 2024-12-02 01:49 | disposition home or self-care (01) ==
PROVIDERS: Emergency Provider Emergency Medicine; PCP Internal Medicine
DX: K29.70 Gastritis, unspecified, without bleeding (principal); R10.22 Pelvic and perineal pain left side; R94.31 Abnormal electrocardiogram [ECG] [EKG]; R11.0 Nausea; E11.9 Type 2 diabetes mellitus without complications; F17.210 Nicotine dependence, cigarettes, uncomplicated; Z51.81 Encounter for therapeutic drug level monitoring; Z79.899 Other long term (current) drug therapy; Z79.4 Long term (current) use of insulin
CPT/HCPCS: 36415; 80048; 80076; 80307; 83690; 85025; 93005; 99283; 99284

== ENCOUNTER → 2024-12-02 00:28 | Outpatient (BNV) | payer OTHER, SELFPAY | PROVIDERS: Emergency Provider Emergency Medicine; PCP Internal Medicine; Visit Provider Internal Medicine | DX: R94.31 Abnormal electrocardiogram [ECG] [EKG] (principal); R10.9 Unspecified abdominal pain | CPT/HCPCS: 93010 ==

== ENCOUNTER 2024-12-04 21:49 | Emergency (ER) | payer OTHER, SELFPAY ==
--- OUTSIDE RECORDS SUMMARY | 2024-12-02 22:41 | XMS_ITS | Encounter Summary ---
Author Organization [employer] Address [address] [place] [address] Care Team Providers Care Rn Lvn Name Role Phone Yoel Parrish MD Primary Care Provider [phone] Reason for Visit * Reason Comments Suicidal Anxiety Depression Encounter Details Date Type Department Care Team ([facility] st Contact Info) Description 12/02/2024 10:41 PM EDT - 12/03/2024 1:17 PM EDT Emergency [facility] Emergency [address] [place] [address] Demetrius Issa MD [address] [place] [address] Ally Laurent MD [address] [place] [id number] Depression, unspecified depression type (Primary Dx) Discharge Disposition: Home or Self [...] your loved ones. For example, early childhood specialist or elderly care for an older [...] Sign Reading Time Taken Comments Blood Pressure 136/76 12/03/2024 5:29 AM EDT Pulse 85 12/03/2024 5:29 AM EDT Temperature 36.4 C (97.5 F) 12/03/2024 5:29 AM EDT Respiratory Rate 16 12/03/2024 5:29 AM EDT Oxygen Saturation 100% 12/03/2024 5:29 AM EDT Inhaled Oxygen Concentration - - Weight 81.6 kg (180 lb) 12/02/2024 10:36 PM EDT Height 167.6 cm (5' 6 ) 12/02/2024 10:36 PM EDT Body Mass Index 29.05 12/02/2024 10:36 PM EDT documented in this encounter Functional Status * Are you deaf or do you have serious difficulty hearing? Answer Date of Assessment Author No 11/20/2024 8:51 PM EDT Viji aOkes RN * Are you blind or do you have serious difficulty seeing, even when wearing glasses? Answer Date of Assessment Author No 11/20/2024 8:51 PM EDT Viji Oakes RN * Do you have serious difficulty walking or climbing stairs? Answer Date of Assessment Author No 11/20/2024 8:51 PM EDT Viji Oakes RN * Do you have serious difficulty dressing or bathing? Answer Date of Assessment Author No 11/20/2024 8:51 PM EDT Viji Oakes RN * Because of a physical, mental, or emotional condition, do you have serious difficulty doing errandsalone such as visiting the doctor? Answer Date of Assessment Author No 11/20/2024 8:51 PM EDT Viji Oakes RN * Calculated C-SSRS Risk Score (Lifetime/Recent) Answer Date of Assessment Author High Risk 12/03/2024 8:52 AM EDT Fermín Bah RN * [place] Suicide Severity Rating Scale (Screener/Recent Self-Report) Question Answer Date of Assessment Author 1. Wish to be (Past 1 Month) Yes 8:52 AM EDT Flora Bah RN 2. Non-Specific Active Suici sandy Thoughts (Past 1 Month) Yes 12/03/2024 8:52 AM EDT Flora Bah RN 3. Active Suicidal Ideation with any Methods (Not Plan) Without Intent to Act (Past 1 Month) Yes 12/03/2024 8:52 AM AUTUMNT Flora Bah RN 4. Active Suicidal Ideation with Some Intent to Act, Without Specific Plan (Past 1 Month) Yes 12/03/2024 8:52 AM EDT Saykin, Flora, RN 5. Active Suicidal Ideation with Specific Plan and Intent (Past 1 Month) Yes 12/03/2024 8:52 AM EDT Flora Bah RN 6. Suicidal Behavior (Lifetime) Yes 8:52 AM EDT Flora Bah RN 6. Suicidal Behavior (3 Months) Yes 8:52 AM EDT Flora Bah RN documented as of this encounter Mental Status * Because of a physical, mental, or emotional condition, do you have serious difficulty concentrating, remembering, or making decisions? (5 years old or older) Answer Entry Date Author No 11/20/2024 8:51 PM EDT Viji Oakes RN documented in this encounter Discharge Instructions * Attachments The following attachments cannot be sent through Care Everywhere. * Depression: Using Your Inner Strengths: Video (Israeli) documented in this encounter Medications at Time [...] (40 mg total) by mouth daily. 03/21/2024 gabapentin (NEURONTIN) 300 mg capsule Take 1 capsule (300 mg total) by mouth 2 (two) times a day. 10/27/2023 hydrOXYzine pamoate (VISTARIL) 50 mg capsule Take 1 capsule (50 mg total) by mouth 4 (four) times a day if needed for itching. INSULIN LISPRO SUBQIndications: diabetes mellitus Inject 1 Units under the skin 3 (three) times a day before meals. 70-149= 0 units 150-199= 2 units 200-249= 4 units 250-299= 6units 300-349= 8 units 350-399= 10 units Greater than 400 notify lancets lancets Use as instructed 100 each 11/19/2024 melatonin 10 mg tablet Take 1 tablet [...] by mouth at bedtime as needed. 04/04/2024 cyclobenzaprine (FLEXERIL) 10 mg tablet Take 1 tablet (10 mg total) by mouth 3 (three) times a day if needed for muscle spasms for up to 10 days. 15 tablet 09/02/2024 cyclobenzaprine (FLEXERIL) 10 mg tabletIndication s:Chronic right-sided low back pain without sciatica Take 1 tablet (10 mg total) by mouth 2 (two) times a day if needed for muscle spasms for up to 10 days. 20 tablet 11/16/2024 5 documented as of this encounter Discharge Disposition Disposition Code Departure Means Destination Comment s Home or Self Care documented in this encounter Progress Notes * Ally Laurent MD - 12/03/2024 10:57 AM EDT Andreas Conway This patient was signed out to me by ED provider, Dr Issa. Briefly, the patient presented to theED with worsening depression. Signed out to me pending crisis to evaluate. ED Course as of 12/03/24 1144 Fri Dec 02, 2024 2322 Hemoglobin(!): 13.4 [CL] Sat Dec 03, 2024 0013 Acetaminophen Level(!): <2.0 [CL] 0013 Ethanol Level: <3 [CL] 0013 Salicylate Level(!): <1.7 [CL] 0013 Creatinine: 1.21 [CL] 0013 Glucose(!): 185 [CL] 1056 Patient desires to go to respite, will be referred [AM] 1143 Patient able to go to [facility] respite tomorrow. He denies suicidal ideation to me at this time. Hestates he feels comfortable going home and going to respite tomorrow. We discussed returning to thehospital if he has worsening thoughts of self-harm/suicide. He is aware that he needs to bring his diabetic medications when he goes to respite. [AM] ED Course User Index [AM] Ally Laurent MD [CL] Demetrius Issa MD Clinical Impressions as of 12/03/24 1144 Depression, unspecified depression type * Ger Nam RN - 12/03/2024 12:48 AM EDT Unable to complete med rec at this time as [facility] * Hannah Burnham RN - 12/02/2024 10:41 PM EDT SI PRECAUTIONS * Hannah Burnham RN - 12/02/2024 10:37 PM EDT PT ARRIVES STEADY GAIT, STATES HE IS SI WITH NO PLAN, ALSO HAS ANXIETY AND DEPRESSION, DENIES MEDICAL COMPLAINTS, DENIES ANY OTHER COMPLAINTS OR SYMPTOMS, DENIES ANY WEAPONS OR NEEDLES ON HIS PERSON,CARRIES BIG DUFFLE BAG WITH EASE USES TOBACCO ,NO WEED * Demetrius Issa MD - 12/02/2024 10:26 PM EDT HPI Chief Complaint Patient presents with Suicidal Anxiety Depression Patient is a 59-year-old male with a history of bipolar, anxiety/depression, diabetes, hypertensionwho is presenting to the ER by EMS for suicidal ideation. Patient states for the last 2 days he hashad suicidal ideation with thoughts of wanting to cut himself. He reports increased depression and anxiety primarily related to fights with his . Denies any alcohol or drug use. He reports compliance with his psychiatric medications. Blu Coma Scale Score: 15 Patient History Medical History[1] Surgical History[2] Family History[3] Social History Tobacco Use Smoking status: Every Day Types: Cigarettes Smokeless tobacco: Never Substance Use Topics Alcohol use: Not Currently Drug use: Never Review of Systems Review of Systems Psychiatric/Behavioral: Positive for suicidal ideas. The patient is nervous/anxious. Physical Exam ED Triage Vitals [12/02/246] Temp Heart Rate Resp BP 36.9 ??C (98.4 ??F) 100 18 (!) 160/81 SpO2 Temp Source Heart Rate Source Patient Position 98 % Temporal Other (Comment) Sitting BP Location FiO2 (%) -- -- Physical Exam Vitals and nursing note reviewed. Constitutional: General: He is not in acute distress. Appearance: He is not ill-appearing, toxic-appearing or diaphoretic. HENT: Head: Normocephalic and atraumatic. Right Ear: External ear normal. Left Ear: External ear normal. Nose: Nose normal. No rhinorrhea. Eyes: Extraocular Movements: Extraocular movements intact. Conjunctiva/sclera: Conjunctivae normal. Cardiovascular: Rate and Rhythm: Normal rate. Comments: Well-perfused Pulmonary: Effort: Pulmonary effort is normal. No respiratory distress. Breath sounds: No stridor. Abdominal: General: Abdomen is flat. There is no distension. Musculoskeletal: General: No deformity. Normal range of motion. Cervical back: Normal range of motion and neck supple. No rigidity. Skin: General: Skin is dry. Coloration: Skin is not jaundiced or pale. Neurological: General: No focal deficit present. Mental Status: He is alert and oriented to person, place, and time. Mental status is at baseline. GCS: GCS eye subscore is 4. GCS verbal subscore is 5. GCS motor subscore is 6. Coordination: Coordination normal. Psychiatric: Attention and Perception: He does not perceive auditory or visual hallucinations. Mood and Affect: Mood normal. Affect is flat. Behavior: Behavior normal. Thought Content: Thought content includes suicidal ideation. Thought content does not include homicidal ideation. Thought content includes suicidal plan. Thought content does not include homicidal plan. Judgment: Judgment normal. ED Course & [facility] ED Course as of 12/03/242044Dec 02, 2024 232 Hemoglobin(!): 13.4 [CL] Sat Dec 03, 2024 001 Acetaminophen Level(!): <2.0 [CL] 0013 Ethanol Level: <3 [CL] 0013 Salicylate Level(!): <1.7 [CL] 0013 Creatinine: 1.21 [CL] 0013 Glucose(!): 185 [CL] 1056 Patient desires to go to respite, will be referred [AM] 1143 Patient able to go to [facility] respite tomorrow. He denies suicidal ideation to me at this time. Hestates he feels comfortable going home and going to respite tomorrow. We discussed returning to thehospital if he has worsening thoughts of self-harm/suicide. He is aware that he needs to bring his diabetic medications when he goes to respite. [AM] ED Course User Index [AM] Ally Laurent MD [CL] Demetrius Issa MD Clinical Impressions as of 12/03/242044 Depression, unspecified depression type Medical Decision Making Patient presenting to the ER with suicidal ideation with thoughts of wanting to cut himself and increased anxiety/depression. Will obtain clearance labs and tox screening. Will have patient evaluatedby crisis in the morning. Demetrius Issa MD 12/03/24 0144 [1] Past Medical History: Diagnosis Date Arthritis Bipolar 2 disorder (CMS/HCC V24, CMS/HCC V28) Depression Diabetes mellitus (CMS/HCC V24, CMS/HCC V28) Hypertension [2] No past surgical history on file. [3] No family history on file. Demetrius Issa MD 12/03/242044 documented in this encounter Consult Notes * Amado Kelly - 12/03/2024 12:02 PM EDT Images from the original note were not included. Behavioral Health Services - Crisis Assessment Important times Time of arrival: 12/02/2024 -2226 pm. Time of referral: 12/03/2024 -0145 am. Time of readiness: 12/03/2024 -0245 am. Time assessment started: 12/03/2024 -1000 am. Time of disposition: 12/03/2024 1045 am. Location: [facility] [place], [facility] 4 Consulted case with: Tamar Rodriguez PsyD Insurance information: Insurance: Medicare A & B Verified by: [employer] Reason for Consultation / Presenting Problem: Andreas Conway is being seen today for a consultive service at the request of Ally Laurent MD to assess risk and identify appropriate level of care. Patient is a 59-year-old male with a history of bipolar 1 disorder, posttraumatic stress disorder, Type II diabetes and hypertension. Andreas presented to the [facility] ED via EMS for suicidal ideation. Patient states for the last two days he has had suicidal ideation with thoughts of wanting to cut himself. He reports increased depression and anxiety primarily related to fights with his . Denies any alcohol or drug use. He reports compliance with his psychiatric medications. This Behavioral Health Specialist met with the patient in the [facility] ED to conduct a crisis assessment. Patient was pleasant, cooperative and adamantly denied homicidal ideation, plan or intent. Patient denied auditory or visual hallucinations. Patient reported he reported feeling suicidal after arguing with my yesterday. Patient did not elaborate further. Patient was [facility]. This clinician reached out to [facility] ([facility]) @ [phone] this morning 12/03/2024. There is no available C[facility] services today but tomorrow there is availability. This was communicated to the patient. Patient is able to go to [facility]'s Community [facility]ization ([facility]) respite tomorrow. Patient denied suicidal ideation, plan, or intent to me at this time. Patient reported feeling comfortable going home today and going to respite tomorrow. I reviewed crisis options with the patient and communicated t hat he may return to the hospital if he has worsening thoughts of self- harm/suicide. Patient was made aware that he needs to bring his diabetic medications when he goes to respite. History of Present Illness: Andreas is a 59 y.o. male with Chief Complaint Patient presents with Suicidal Anxiety Depression Social/Educational History: Guardian - if Yes, provide contact information: Self [place] Status: [place] Involvement: None Brad's Order: No Marital Status: Alternative Placement Details: None reported. Living Situation for patient: Patient reported he resides with his . Household Members/Age: Unknown. Friendships/Family/Social Peer Support/Relationships: Patient reported he has four children. Highest level of education: High School Comments (Include Learning Needs): None reported Occupation: Unemployed/Disability Employment/Extracurricular Activities/Hobbies: None reported Limitations of Daily Activities: None reported. Strengths/Supports: Patient reports that family have been supportive of him, he can advocate for his own needs. Collaterals, contact information, and engagement level: Therapist: No currently Psychiatrist: No Currently PCP: Yoel Parrish MD Family: Spouse, Children and siblings, patient reported that he sees them/talks to them semi regularly. Other: NA Mental Status Speech: WNL Eye Contact: WNL Motor Activity: WNL Mood: WNL Affect: Appropriate Sleep: WNL Appetite: WNL Memory: WNL Attention / Concentration: WNL Behavior: Cooperative and Calm Appearance: Hallucinations: None Delusions: None Thought Content: WNL SI: Denied HI: Denied Thought Process: WNL Orientation Impairment: None Insight: WNL Judgment: WNL Impulse Control: WNL Substance Use History (Including family history): None reported he hasn't used cocaine for the past 10 years. He reportedly had a history of cocaine use disorder. Paternal side of the family significant for alcohol use and illicit drug use. Utox Results: BAL <3 Toxicology Screening Negative for illicit substances. Substance Use Treatment History: Patient reported his last detox was at [facility] 15 years ago. Mental Health Treatment History: Outpatient Mental Health Treatment: None reported Previous or Current Psychological Diagnosis: Severe Anxiety, Depression, PTSD and Bipolar disorder Prior Psychiatric Hospitalizations/Residential Treatment Facilities: [facility]-2 years ago Other Comments Regarding Mental Health Treatment History: NA Mental Health Concerns in Family: None reported Trauma History: None reported Medications: Scheduled Meds: MEDSSCHEDULED[1] Continuous Infusions: MEDSCONTINUOUS[2] PRN Meds: MEDSPRN[3] Risk Assessment: Self-Harm: None and Past Suicidal Behavior: None and Past Homicidal Behavior: None Physical Assault: None Physical Aggression: None Property Damage: None Verbal Aggression: None Family history of suicide: None Protective Factors: Help seeking Currently taking Metformin and Gabapentin Family supports Risk Factors: No current providers Diabetes/Insulin management Suicide Risk: Based on patient's history and current presentation, their level of risk for intentional lethal harm is considered Low Safety Plan Completed: Yes This Behavioral Health Specialist reviewed a plan that if patient has worsening thoughts of self harm/ Interventions: Motivational Interviewing Mental Status Exam Risk Assessment Active listening Empathic Listening Response to interventions: Patient responded appropriately to questions. Patient was calm and cooperative. DSM-5TR Diagnosis: F32A Unspecified Depressed Disorder Plan: Patient was pleasant during the evaluation and asked to be discharged. Based on the above information, it is my clinical opinion that this patient would benefit from community crisis stabilization services (respite). Patient does not meet the criteria for higher level of care at this time. Patient agreed to self-present at [facility] tomorrow (12/04/2024) with his diabetes care (insulin) regimen on his person. Patient stated he understood this. [facility] Recommendations were discussed with requesting provider. It was a pleasure to assist Andreas Conway here at [facility]. This report is written and finalized by: Amado Kelly Jr., [place], Jonathon Behavioral Health Specialist II [facility] (Tel): [phone] / : [phone] [1] [2] [3] documented in this encounter Plan of Treatment Not on file documented as of this encounter Procedures Procedure Name Priority Date/Time Associated Diagnosis Comments DRUG ABUSE SCREEN 8A PANEL, URINE STAT 12/02/2024 11:01 PM EDT BUPRENORPHINE SCREEN, URINE STAT 12/02/2024 11:01 PM EDT METHADONE SCREEN, URINE STAT 12/02/2024 11:01 PM EDT CBC WITH AUTO DIFFERENTIAL STAT 12/02/2024 11:01 PM EDT PHENCYCLIDINE, URINE STAT 12/02/2024 11:01 PM EDT CBC AND DIFFERENTIAL STAT 12/02/2024 11:01 PM EDT ETHANOL STAT 12/02/2024 11:01 PM EDT ACETAMINOPHEN LEVEL STAT 12/02/2024 1 1:01 PM EDT SALICYLATE LEVEL STAT 12/02/2024 11:0 1 PM EDT COMPREHENSIVE METABOLIC PANEL STAT 12/02/2024 11:01 PM EDT documented in this encounter Results * (ABNORMAL) CBC auto differential (12/02/2024 11:01 PM EDT) [facility] WBC 9.3 4.8 - 10.8 K/mcL LAB HEMETOLOGY METHOD 12/02/2024 11:20 PM EDT [facility] RBC 5.10 4.50 - 5.50 M/mcL LAB HEMETOLOGY METHOD 12/02/2024 11:20 PM EDT [facility] Hemoglobin 13.4(L) 13.5 - 17.5 g/dL LAB HEMETOLOGY METHOD 12/02/2024 11:20 PM EDT [facility] Hematocrit 41.4(L) 42.0 - 54.0 % LAB HEMETOLOGY METHOD 12/02/2024 11:20 PM EDT [facility] MCV 81.8 79.0 - 98.0 FL LAB HEMETOLOGY METHOD 12/02/2024 11:20 PM EDT [facility] MCH 26.5(L) 27.0 - 32.0 pcg LAB HEMETOLOGY METHOD [facility] MCHC 32.4 32.0 - 37.0 g/dL LAB HEMETOLOGY METHOD 12/02/2024 11:20 PM [facility] RDW 14.2 11.0 - 15.0 % LAB HEMETOLOGY METHOD [facility]/02[facility]2024 [facility] Platelets 334 130 - 400 K/mcL LAB HEMETOLOGY METHOD 12/02/2024 11:20 PM [facility] MPV 10.2 7.0 - 11.0 FL LAB HEMETOLOGY METHOD 12/02/2024 11:20 PM [facility] NRBC 0.0 <1.0 % LAB HEMETOLOGY METHOD 12/02/2024 11:20 PM [facility] NRBC Absolute 0.00 <0.10 K/mcL LAB HEMETOLOGY METHOD 12/02/2024 11:20 PM [facility] Neutrophils Relative 68.3 % LAB HEMETOLOGY METHOD 12/02/2024 11:20 PM [facility] Lymphocytes Relative 17.3 % LAB HEMETOLOGY METHOD 12/02/2024 11:20 PM [facility] Monocytes Relative 13.7 % LAB HEMETOLOGY METHOD 12/02/2024 11:20 PM [facility] Eosinophils Relative 0.1 % LAB HEMETOLOGY METHOD 12/02/2024 11:20 PM [facility] Basophils Relative 0.4 % LAB HEMETOLOGY METHOD 12/02/2024 11:20 PM [facility] Immature Granulocytes Relative 0.2 % LAB HEMETOLOGY METHOD 12/02/2024 11:20 PM EDT [facility] Neutrophils Absolute 6.32 1.50 - 7.00 K/[facility] LAB HEMETOLOGY METHOD 12/02/2024 11:20 PM EDT [facility] Lymphocytes Absolute 1.60 1.00 - 5.00 K/mcL LAB HEMETOLOGY METHOD 12/02/2024 11:20 PM EDT [facility] Monocytes Absolute 1.27(H) 0.20 - 1.00 K/mcL LAB HEMETOLOGY METHOD 12/02/2024 11:20 PM EDT [facility] Eosinophils Absolute 0.01 0.00 - 0.50 K/[facility] LAB HEMETOLOGY METHOD 12/02/2024 11:20 PM EDT [facility] Basophils Absolute 0.04 0.00 - 0.20 K/mcL LAB HEMETOLOGY METHOD 12/02/2024 11:20 PM EDT [facility] Immature Granulocytes Absolute 0.02 0.00 - 0.03 K/[facility] LAB HEMETOLOGY METHOD 12/02/2024 11:20 PM EDT [facility] Blood Venous blood specimen / Unknown Venipuncture / Unknown 12/02/2024 11:01 PM EDT 12/02/2024 11:16 PM EDT Demetrius Issa MD LAB BLOOD ORDERABLES Final R esult [facility] [address] [place] [address], * Methadone, urine (12/02/2024 11:01 PM EDT) Methadone Screen, Urine Negative Negative LAB CHEMISTRY METHOD 12/03/2024 12:09 AM EDT [facility] Comment: Assay cutoff 300 ng/mL Semi-quantitative assay for screening purposes only. Unconfirmed screening result should not be used for non-medical purposes. *ALTERNATE METHOD CONFIRMATION DONE UPON REQUEST ONLY* Urine Urine specimen obtained by clean catch procedure / Unknown Non-blood Collection / Unknown 12/02/2024 11:01 PM EDT 12/02/2024 11:16 PM EDT Demetrius Issa MD LAB URINE ORDERABLES Final R esult Performing Organization Address [facility] Co de Phone Number [facility] [address] [place] [address], [place] [phone] * Phencyclidine, urine (12/02/2024 11:01 PM EDT) PCP Scrn, Ur Negative Negative LAB CHEMISTRY METHOD 12/03/2024 12:09 AM EDT [facility] Comment: Assay cutoff 25 ng/mL Semi-quantitative assay for screening purposes only. Unconfirmed screening result should not be used for non-medical purposes. *ALTERNATE METHOD CONFIRMATION DONE UPON REQUEST ONLY* Urine Urine specimen obtained by clean catch procedure / Unknown Non-blood Collection / Unknown 12/02/2024 11:01 PM EDT 12/02/2024 11:16 PM EDT Demetrius Issa MD LAB URINE ORDERABLES Final R esult Performing Organization Address [facility] Co de Phone Number [facility] [address] [place] [address], * Buprenorphine screen, urine (12/02/2024 11:01 PM EDT) Buprenorphine Screen Urine Negative Negative LAB CHEMISTRY METHOD 12/03/2024 12:09 AM EDT [facility] Urine Urine specimen obtained by clean catch procedure / Unknown Non-blood Collection / Unknown 12/02/2024 11:01 PM EDT 12/02/2024 11:16 PM EDT Narrative [facility] - 12/03/2024 12:09 AM EDT Assay cutoff 5 ng/mL Semi-quantitative assay for screening purposes only. Unconfirmed screening result should not be used for non-medical purposes. *ALTERNATE METHOD CONFIRMATION DONE UPON REQUEST ONLY* Demetrius Issa MD LAB URINE ORDERABLES Final R esult [facility] [address] [place] [address], * Drug abuse screen 8a panel, urine (12/02/2024 11:01 PM EDT) [facility] Amphetamine Screen, Ur Negative Negative LAB CHEMISTRY METHOD 12/03/2024 12:09 AM [facility] Comment:Certain OTC medicati ons containing ephedrine, phenylephrine, pseudoephedrine and phenylpropanolamine can cause false positive results. Barbiturate Screen, Ur Negative Negative LAB CHEMISTRY METHOD 12/03/2024 12:09 AM [facility] Benzodiazepine Screen, Ur Negative Negative LAB CHEMISTRY METHOD 12/03/2024 12:09 AM [facility] Cocaine Screen, Ur Negative Negative LAB CHEMISTRY METHOD 12/03/2024 12:09 AM [facility] Opiate Screen, Ur Negative Negative LAB CHEMISTRY METHOD 12/03/2024 12:09 AM [facility] Cannabinoid (THC) Screen, Ur Negative Negative LAB CHEMISTRY METHOD 12/03/2024 12:09 AM [facility] Comment:Specimens from patie nts taking pantoprazole sodium (Protonix) have been shown to produce false positive results. Oxycodone Screen, Ur Negative Negative LAB CHEMISTRY METHOD 12/03/2024 12:09 AM [facility] Fentanyl, Ur Negative Negative LAB CHEMISTRY METHOD 12/03/2024 12:09 AM [facility] Urine Urine specimen obtained by clean catch procedure / Unknown Non-blood Collection / Unknown 12/02/2024 11:01 PM EDT 12/02/2024 11:16 PM EDT Narrative [facility] - 12/03/2024 12:09 AM EDT Assay cutoffs: Amphetamines 1000 ng/mL Barbiturates 200 ng/mL Benzodiazepines 200 ng/mL Cocaine 300 ng/mL Fentanyl 1 ng/mL Opiates 300 ng/mL Oxycodone 100 ng/mL THC 50 ng/mL Semi-quantitative assay for screening purposes only. Unconfirmed screening result should not be used for non-medical purposes. *ALTERNATE METHOD CONFIRMATION DONE UPON REQUEST ONLY* Demetrius Issa MD LAB URINE ORDERABLES Final R esult Performing Organization Address City/[facility]/ZIP Co de Phone Number [facility] [address] [place] [address], [place] [phone] * (ABNORMAL) Salicylate level (12/02/2024 11:01 PM EDT) Salicylate Level <1.7(L) 2.0 - 29.0 mg/dL LAB CHEMISTRY METHOD 12/03/2024 12:08 AM EDT [facility] Blood Venous blood specimen / Unknown Venipuncture / Unknown 12/02/2024 11:01 PM EDT 12/02/2024 11:16 PM EDT Demetrius Issa MD LAB BLOOD ORDERABLES Final R esult Performing Organization Address City/[facility]/ZIP Co de Phone Number [facility] [address] [place] [address], [place] [phone] * (ABNORMAL) Acetaminophen level (12/02/2024 11:01 PM EDT) Acetaminophen Level <2.0(L) 10.0 - 30.0 mcg/mL LAB CHEMISTRY METHOD 12/03/2024 12:11 AM EDT [facility] Blood Venous blood specimen / Unknown Venipuncture / Unknown 12/02/2024 11:01 PM EDT 12/02/2024 11:16 PM EDT Demetrius Issa MD LAB BLOOD ORDERABLES Final R esult [facility] [address] [place] [address], [place] [phone] * Ethanol (12/02/2024 11:01 PM EDT) Pathologist [facility] Ethanol Level <3 0 - 10 mg/dL LAB CHEMISTRY METHOD 12/03/2024 12:08 AM EDT [facility] Blood Venous blood specimen / Unknown Venipuncture / Unknown 12/02/2024 11:01 PM EDT 12/02/2024 11:16 PM EDT Demetrius Issa MD LAB BLOOD ORDERABLES Final R esult Performing Organization Address City/[facility]/ZIP Co de Phone Number [facility] [address] [place] [address], [place] [phone] * (ABNORMAL) Comprehensive metabolic panel (12/02/2024 11:01 PM EDT) [facility] Sodium 134 133 - 145 mmol/L LAB CHEMISTRY METHOD 12/03/2024 12:11 AM [facility] Potassium 3.9 3.5 - 5.5 mmol/L LAB CHEMISTRY METHOD 12/03/2024 12:11 AM [facility] Chloride 98 96 - 110 mmol/L LAB CHEMISTRY METHOD 12/03/2024 12:11 AM [facility] CO2 27 21 - 32 mmol/L LAB CHEMISTRY METHOD 12/03/2024 12:11 AM [facility] Anion Gap 9 3 - 11 LAB CHEMISTRY METHOD 12/03/2024 12:11 AM [facility] Glucose 185(H) 70 - 100 mg/dL LAB CHEMISTRY METHOD 12/03/2024 12:11 AM [facility] BUN 32(H) 5 - 25 mg/dL LAB CHEMISTRY METHOD 12/03/2024 12:11 AM [facility] Creatinine 1.21 0.70 - 1.30 mg/dL LAB CHEMISTRY METHOD 12/03/2024 12:11 AM [facility] eGFR 69 >=60 mL/min/1. 73m2 LAB CHEMISTRY METHOD 12/03/2024 12:11 AM [facility] Comment:Calculation based on the Chronic Kidney Disease Epidemiology Collaboration (CKD-EPI) equation refit without adjustment for race. BUN/Creatinine Ratio 26.4 LAB CHEMISTRY METHOD 12/03/2024 12:11 AM [facility] Calcium 9.2 8.5 - 10.5 mg/dL LAB CHEMISTRY METHOD 12/03/2024 12:11 AM [facility] AST (SGOT) 36 10 - 42 unit/L LAB CHEMISTRY METHOD 12/03/2024 12:11 AM [facility] ALT (SGPT) 44 10 - 60 unit/L LAB CHEMISTRY METHOD 12/03/2024 12:11 AM [facility] Alkaline Phosphatase 115 42 - 121 unit/L LAB CHEMISTRY METHOD 12/03/2024 12:11 AM [facility] Total Protein 8.3(H) 6.0 - 8.0 g/dL LAB CHEMISTRY METHOD 12/03/2024 12:11 AM [facility] Albumin 4.3 3.2 - 5.0 g/dL LAB CHEMISTRY METHOD 12/03/2024 12:11 AM [facility] Total Bilirubin 0.7 0.0 - 1.4 mg/dL LAB CHEMISTRY METHOD 12/03/2024 12:11 AM [facility] Blood Venous blood specimen / Unknown Venipuncture / Unknown 12/02/2024 11:01 PM EDT 12/02/2024 11:16 PM EDT us Demetrius Issa MD LAB BLOOD ORDERABLES Final R esult [facility] [address] [place] [address], documented in this encounter Visit Diagnoses Diagnosis Depression, unspecified depression type- Primary documented in this encounter Administered Medications Inactive Administered Medications - up to 3 most recent administrations Medication Order MAR Action Action Date Dose Rate Site hydrOXYzine pamoate (VISTARIL) capsule 25 mg 25 mg, oral, Once, On 12/03/24 at 0136, For 1 dose Given 12/03/2024 1:45 AM EDT 25 mg documented in this encounter Active and Recently Administered Medications Times are shown in EDT. Scheduled Medication Order 12/01/2024 12/02/2024 12/03/2024 hydrOXYzine pamoate (VISTARIL) capsule 25 mg (COMPLETED) 25 mg, oral, Once, On 12/03/24 at 0136, For 1 dose 0145 (Given - Provid er: Ger Nam RN) documented in this encounter Orders Medications Ordered That Ti ht Not Have Been Administered Count Last Ordered Date First Ordered Date hydrOXYzine pamoate (VISTARI L) capsule 25 mg 1 12/03/2024 Consult Count Last Ordered Date First Orde red Date IP CONSULT TO GROUP TESTER 1 12/03/2024 documented in this encounter Care Teams Rn Lvn Relationship Specialty Start Date End Date Yoel Parrish MD [address] [place] [phone] PCP - General Internal Medicine 01/27/24 documented as of this encounter
--- NOTE | ~2024-12-04 | XR_ITS ---
CLINICAL HISTORY: pain 1 view abdomen Comparison: X-ray of the abdomen from 10/24/2024 Findings: Mild atelectasis of the imaged lung bases. Severe stool burden present, including imaged cecum. No small bowel dilatation. Mild/borderline gaseous distention of the partially imaged sigmoid colon. Degenerative changes include imaged hips and imaged spine. Superficial opacities present. IMPRESSION: 1. No small bowel obstruction. 2. Severe stool burden. This document has been electronically signed by: Gautam Robles MD on 12/05/2024 01:43:56
--- OUTSIDE RECORDS SUMMARY | 2024-12-04 05:55 | XMS_ITS | Encounter Summary ---
Author Organization [employer] Address [address] [place] [address] Care Team Providers Care Pressure Dispatcher Name Role Phone Yoel Parrish MD Primary Care Provider [phone] Reason for Visit * Reason Comments Back Pain C/o back pain and na dede infection Encounter Details Date Type Department Care Team ([facility] st Contact Info) Description 12/04/2024 5:55 AM EDT - 12/04/2024 8:[address] [facility] [address] [place] [phone] Acute bilateral low back pain without sciatica (Primary Dx); Acute frontal sinusitis, recurrence not specified Discharge Disposition: Home or Self Care Social [...] Sign Reading Time Taken Comments Blood Pressure 138/75 12/04/2024 7:35 AM EDT Pulse 83 12/04/2024 7:35 AM EDT Temperature 36.5 C (97.7 F) 12/04/2024 7:35 AM EDT Respiratory Rate 18 12/04/2024 7:35 AM EDT Oxygen Saturation 100% 12/04/2024 7:35 AM EDT Inhaled Oxygen Concentration - - Weight 72.6 kg (160 lb) 12/04/2024 5:24 AM EDT Height 167.6 cm (5' 6 ) 12/04/2024 5:24 AM EDT Body Mass Index 25.82 12/04/2024 5:24 AM EDT documented in this encounter Functional Status * Are you deaf or do you have serious difficulty hearing? Answer Date of Assessment Author No 11/20/2024 8:51 PM [employer] Viji Oakes RN * Are you blind or do you have serious difficulty seeing, even when wearing glasses? Answer Date of Assessment Author No 11/20/2024 8:51 PM [employer]UM[employer] Viji Oakes RN * Do you have serious difficulty walking or climbing stairs? Answer Date of Assessment Author No 11/20/2024 8:51 PM AUTUM[employer] Viji Oakes RN * Do you have serious difficulty dressing or bathing? Answer Date of Assessment Author No 11/20/2024 8:51 PM Viji Licona RN * Because of a physical, mental, or emotional condition, do you have serious difficulty doing errandsalone such as visiting the doctor? Answer Date of Assessment Author No 11/20/2024 8:51 PM Viji Licona RN * Calculated C-SSRS Risk Score (Lifetime/Recent) Answer Date of Assessment Author High Risk 12/04/2024 5:24 AM AUTUMNT Daisy Mccann RN * [place] Suicide Severity Rating Scale (Screener/Recent Self-Report) Question Answer Date of Assessment Author 1. Wish to be (Past 1 Month) Yes 5:24 AM Daisy Stanford RN 2. Non-Specific Active Suici sandy Thoughts (Past 1 Month) Yes 12/04/2024 5:24 AM Alo Stanford RN 3. Active Suicidal Ideation with any Methods (Not Plan) Without Intent to Act (Past 1 Month) Yes 12/04/2024 5:24 AM AUTUMNT Daisy Mccann R N 4. Active Suicidal Ideation with Some Intent to Act, Without Specific Plan (Past 1 Month) Yes 12/04/2024 5:24 AM AUTUMNT Daisy Mccann R N 5. Active Suicidal Ideation with Specific Plan and Intent (Past 1 Month) Yes 12/04/2024 5:24 AM EDT Daisy Mccann R N 6. Suicidal Behavior (Lifetime) Yes 5:24 AM AUTUM[employer] Mccann, Daisy, RN 6. Suicidal Behavior (3 Months) Yes 5 5:24 AM EDT Daisy Mccann RN documented as of this encounter Mental Status * Because of a physical, mental, or emotional condition, do you have serious difficulty concentrating, remembering, or making decisions? (5 years old or older) Answer Entry Date Author No 11/20/2024 8:51 PM EDT Viji Oakes RN documented in this encounter Medications at Time of Discharge albuterol HFA (PROAIR HFA ; PROVENTIL HFA ; VENTOLIN HFA) 90 mcg/actuation inhaler Inhale 2 puffs by mouth every 6 (six) hours if needed. 06/15/2024 amoxicillin-clav ulanate (AUGMENTIN) 875-125 mg per tablet Take 1 tablet by mouth every 12 (twelve) hours for 7 days. 14 tablet 12/04/2024 aspirin 81 mg EC tablet Take 1 tablet (81 mg total) by mouth 1 (one) time each day. atorvastatin (LIPITOR) 20 mg tablet Take 2 tablets (40 mg total) by mouth daily. 03/21/2024 cyclobenzaprine (FLEXERIL) 10 mg tabletIndication s:Acute bilateral low back pain without sciatica Take 1 tablet (10 mg total) by mouth 2 (two) times a day if needed for muscle spasms for up to 14 days. 28 tablet 12/04/2024 gabapentin (NEURONTIN) 300 mg capsule Take 1 capsule (300 mg total) by mouth 2 (two) times a day. 10/27/2023 hydrOXYzine HCL (ATARAX) 25 mg tabletIndication s:Anxiety Take 1 tablet (25 mg total) by mouth every 6 (six) hours for 3 days. 12 tablet 10/31/2024 hydrOXYzine pamoate (VISTARIL) 50 mg capsule Take 1 capsule (50 mg total) by mouth 4 (four) times a day if needed for itching. ibuprofen (ADVIL,MOTRIN) 600 mg tablet Take 1 tablet (600 mg total) by mouth every 6 (six) hours if needed for mild pain for up to 7 days. 28 tablet 12/04/2024 5 INSULIN LISPRO SUBQIndications: diabetes mellitus Inject 1 [...] Refills Last Filled Start Date End Date amoxicillin-clavul anate (AUGMENTIN) 875-125 mg per tablet Take 1 tablet by mouth every 12 (twelve) hours for 7 days. 14 tablet 12/04/2024 12/11/2024 ibuprofen (ADVIL,MOTRIN) 600 mg tablet Take 1 tablet (600 mg total) by mouth every 6 (six) hours if needed for mild pain for up to 7 days. 28 tablet 12/04/2024 12/11/2024 cyclobenzaprine (FLEXERIL) 10 mg tabletIndications: Acute bilateral low back pain without sciatica Take 1 tablet (10 mg total) by mouth 2 (two) times a day if needed for muscle spasms for up to 14 days. 28 tablet 12/04/2024 12/18/2024 documented in this encounter Discharge Disposition Disposition Code Departure Means Destination Comment s Home or Self Care documented in this encounter Progress Notes * Daisy Mccann RN - 12/04/2024 5:23 AM EDT Pt c/o severe back pain and an infection in my nose . Infection has been going on for over a month. Was here yesterday, sent to respite * ABHINAV Reyes - 12/04/2024 5:22 AM EDT HPI Chief Complaint Patient presents with Back Pain C/o back pain and nasal infection [id number] male here today complaining of lower back pain constant aching denies any paresthesias saddle paresthesias or incontinence. Patient does have potentially diabetic neuropathy in his feet. Denies any abdominal pain dysuria urgency or frequency or hematuria. Denies injury denies any midline back pain. Also complaining of nasal discharge right side greater than left thinks he has a sinus infection with pressure in his face. [place] Coma Scale Score: 15 Patient History Medical History[1] Surgical History[2] Family History[3] Social History Tobacco Use Smoking status: Every Day Types: Cigarettes Smokeless tobacco: Never Substance Use Topics Alcohol use: Not Currently Drug use: Never Review of Systems Review of Systems Constitutional: Negative. HENT: Positive for sinus pressure and sinus pain. Eyes: Negative. Respiratory: Negative. Cardiovascular: Negative. Gastrointestinal: Negative. Genitourinary: Negative. Musculoskeletal: Positive for back pain. Neurological: Negative. Hematological: Negative. Psychiatric/Behavioral: Negative. All other systems reviewed and are negative. Physical Exam ED Triage Vitals [12/04/24 0524] Temp Heart Rate Resp BP 36.7 ??C (98.1 ??F) 91 16 132/66 SpO2 Temp Source Heart Rate Source Patient Position 100 % Oral -- Sitting BP Location FiO2 (%) Left arm -- Physical Exam ED Course & MDM Clinical Impressions as of 12/04/24735 Acute bilateral low back pain without sciatica Acute frontal sinusitis, recurrence not specified Medical Decision Making Patient well-appearing nontoxic non-lethargic. Given Toradol 30 mg IM tramadol 50 mg p.o. will discharge on Flexeril and ibuprofen. Follow-up as needed take medication as directed also will start some antibiotics for potential sinus infection. Procedures ABHINAV Reyes 12/04/24624 ABHINAV Reyes 12/04/24 0635 ABHINAV Reyes 12/04/24 0640 ABHINAV Reyes 12/04/24 07 [1] Past Medical History: Diagnosis Date Arthritis Bipolar 2 disorder ([facility] V24, [facility] V28) Depression Diabetes mellitus ([facility] V24, [facility] V28) Hypertension [2] History reviewed. No pertinent surgical history. [3] No family history on file. ABHINAV Reyse 12/04/24735 Cosigned by Demetrius Issa MD at 12/04/2024 9:59 PM EDT Associated attestation - Demetrius Issa MD - 12/04/2024 9:59 PM EDT I was available for consult in real time on shift and if asked my input in care is as outlined by the documentation below by me. If not documented, then I did not participate in the care of this patient and have reviewed the chart as written. Demetrius Issa MD documented in this encounter Plan of Treatment Not on file documented as of this encounter Visit Diagnoses Diagnosis Acute bilateral low back pain without sciatica- Primary Acute frontal sinusitis, recurrence not specified documented in this encounter Administered Medications Inactive Administered Medications - up to 3 most recent administrations Medication Order MAR Action Action Date Dose Rate Site ketorolac (TORADOL) injection 30 mg 30 mg, intramuscular, Once, On 12/04/24 at 0640, For 1 dose Given 12/04/2024 6:44 AM EDT 30 mg Left Deltoid traMADoL (ULTRAM) tablet 50 mg 50 mg, oral, Every 6 hours PRN, moderate pain, Starting on 12/04/24 at 0622 Given 12/04/2024 6:44 AM EDT 50 mg documented in this encounter Discontinued Medications Medication Sig Discontinue Reason Start Date End Da te cyclobenzaprine (FLEXERIL) 10 mg tablet Take 1 tablet (10 mg total) by mouth 3 (three) times a day if needed for muscle spasms for up to 10 days. 09/02/2024 12/04/2024 cyclobenzaprine (FLEXERIL) 10 mg tabletIndications:Chroni c right-sided low back pain without sciatica Take 1 tablet (10 mg total) by mouth 2 (two) times a day if needed for muscle spasms for up to 10 days. 11/16/2024 12/04/2024 documented as of this encounter Active and Recently Administered Medications Times are shown in EDT. Scheduled Medication Order 12/02/2024 12/03/2024 12/04/2024 ketorolac (TORADOL) injection 30 mg (COMPLETED) 30 mg, intramuscular, Once, On 12/04/24 at 0640, For 1 dose 0644 (Given - Provid er: Suma Santos RN) PRN Medication Order 12/02/2024 12/03/2024 12/04/2024 traMADoL (ULTRAM) tablet 50 mg 50 mg, oral, Every 6 hours PRN, moderate pain, Starting on 12/04/24 at 0622 0644 (Given - Provid er: Suma Santos RN) documented in this encounter Orders Medications Ordered That Ti ht Not Have Been Administered Count Last Ordered Date First Ordered Date ketorolac (TORADOL) injection 30 mg 1 12/04 documented in this encounter Care Teams Pressure Dispatcher Relationship Specialty Start Date End Date Yoel Parrish MD [address] [place] [phone] PCP - General Internal Medicine 01/27/24 documented as of this encounter
[2024-12-04 21:56] VITALS: BP 173/79; PULSE 73; RESP 20; TEMP 37; O2SAT 98; BMI 25.9
[2024-12-04 22:10] LABS: MANUAL DIFF FLAG NO
[2024-12-04 22:11] LABS: Hematocrit 39.4 % (42.0-52.0); Hemoglobin 13.2 g/dl (14.0-18.0); Imm Gran Abs Auto 0.02 X10*3/uL (0.00-0.03); Imm Gran Pct Auto 0.3 % (0.0-0.4); Lymphocytes Absolute Auto 1.6 X10*3/uL (1.2-4.9); Mean Corpuscular HGB Conc 33.5 g/dl (31.0-36.0); Mean Corpuscular Hemoglobin 27.4 pg (27.0-33.0); Mean Corpuscular Volume 81.9 fL (80.0-98.0); NRBC Abs Auto 0.000 X10*3/uL (0.0-0.012); NRBC Pct Auto 0.0 /100WBC (0.0-0.2); Platelet Count 284 X10*3/uL (160-400); Red Blood Count 4.81 X10*6/uL (4.60-5.80); White Blood Count 7.8 X10*3/uL (4.8-10.8)
--- OUTSIDE RECORDS SUMMARY | 2024-12-04 22:15 | XMS_ITS | Encounter Summary ---
Author Organization [email or web address] Address [address] [place] [address] Care Team Providers Care Manager Data Warehousing Name Role Phone Yoel Parrish MD Primary Care Provider [phone] Encounter Details Date Type Department Care Team (Late st Contact Info) Description 08/26/2024 Lab Requisition [facility] - Main Lab [address] [facility] [place] [address] [facility] [address] [place] [address] [phone] Social History Tobacco Use Types Packs/Day Years [...] your loved ones. For example, child welfare worker or elderly care for an older [...] on filedocumented in this encounter Care Teams Manager Data Warehousing Relationship Specialty Start Date End Date Yoel Parrish MD [address] [place] [phone] PCP - General Internal Medicine 01/27/24 documented as of this encounter
--- OUTSIDE RECORDS SUMMARY | 2024-12-04 22:15 | XMS_ITS | Encounter Summary ---
Author Organization [employer] Address [address] [place] [address] Care Team Providers Care Senior Front End Developer Name Role Phone Yoel Parrish MD Primary Care Provider [phone] Encounter Details Date Type Department Care Team (Late st Contact Info) Description 11/23/2024 Lab Requisition [facility] - Main Lab [address] [facility] [place] [address] Ally Gibson [facility] [place] [address] Other custodial (current) drug therapy Social History Tobacco Use [...] your loved ones. For example, early childhood associate or elderly care for an older adult? [...] LDL Routine 11/23/2024 7:00 AM EDT Other custodial (current) drug therapy HEMOGLOBIN A1C Routine 11/23/2024 7:00 AM EDT Other custodial (current) drug therapy GLUCOSE, RANDOM Routine 11/23/2024 7:00 AM EDT Other director long term care (current) drug therapy documented in this encounter Results * (ABNORMAL) Hemoglobin A1c (11/23/2024 7:00 AM EDT) Hemoglobin A1C 8.5(H) <6.5 % LAB CHEMISTRY METHOD 11/23/2024 12:[address] [facility] Mean Bld Glu Estim. 197 mg/dL LAB CHEMISTRY METHOD 11/23/2024 12:[address] [facility] Blood Venous blood specimen / Unknown Venipuncture / Unknown 11/23/2024 7:00 AM EDT 11/23/2024 10:28 AM EDT Ally Gibson LAB BLOOD ORDERABLES Final Resul t [facility] [address] [place] [address], * (ABNORMAL) Glucose, random (11/23/2024 7:00 AM EDT) Glucose 216(H) 70 - 100 mg/dL LAB CHEMISTRY METHOD 11/23/2024 12:02 PM [facility] Blood Venous blood specimen / Unknown Venipuncture / Unknown 11/23/2024 7:00 AM EDT 11/23/2024 10:28 AM EDT [facility] LAB BLOOD ORDERABLES Final Resul t [facility] [address] [place] [address], [place] [phone] * (ABNORMAL) Lipid panel with reflex to [...] 7:00 AM EDT 11/23/2024 10:28 AM EDT [facility] LAB BLOOD ORDERABLES Final Resul t [facility] [address] [place] [address], documented in this encounter Visit Diagnoses Diagnosis Other director long term care (current) drug therapy documented in this encounter Care Teams Senior Front End Developer Relationship Specialty Start Date End Date Yoel Parrish MD [address] [place] [phone] PCP - General Internal Medicine 01/27/24 documented as of this encounter
--- OUTSIDE RECORDS SUMMARY | 2024-12-04 22:15 | XMS_ITS | Encounter Summary ---
Author Organization [employer] Address [address] [place] [address] Care Team Providers Care Lump Inspector Name Role Phone Yoel Parrish MD Primary Care Provider [phone] Encounter Details Date Type Department Care Team (Late st Contact Info) Description 08/05/2024 Lab Requisition [facility] - Main Lab [address] [facility] [place] [address] Annie Barraza, ASSEMBLY MEMBER [address] [place] [address] Other senior care (current) drug therapy Social History Tobacco Use [...] your loved ones. For example, early childhood educator aide or elderly care for an older adult? [...] LDL Routine 08/05/2024 7:00 AM EDT Other terminal worker (current) drug therapy HEMOGLOBIN A1C Routine 08/05/2024 7:00 AM EDT Other senior care (current) drug therapy documented in this encounter Results * (ABNORMAL) Hemoglobin A1c (08/05/2024 7:00 AM EDT) Hemoglobin A1C 8.4(H) <6.5 % LAB CHEMISTRY METHOD 08/05/2024 1:51 PM EDT [facility] Mean Bld Glu Estim. 194 mg/dL LAB CHEMISTRY METHOD 08/05/2024 1:51 PM EDT [facility] Blood Venous blood specimen / Unknown Venipuncture / Unknown 08/05/2024 7:00 AM EDT 08/05/2024 9:58 AM EDT us Annie Barraza [employer] LAB BLOOD ORDERABLES Final Re sult [facility] [address] [place] [address], [place] [phone] * (ABNORMAL) Lipid panel with reflex to direct LDL (08/05/2024 7:00 AM EDT) Cholesterol 181 0 - 200 mg/dL LAB CHEMISTRY METHOD 08/05/2024 11:26 AM EDT [facility] Triglycerides 306(H) 0 - 150 mg/dL LAB CHEMISTRY METHOD 08/05/2024 11:26 AM [facility] HDL 26(L) >=40 mg/dL LAB CHEMISTRY METHOD 08/05/2024 11:26 AM [facility] LDL Calculated 94 0 - 100 mg/dL LAB CHEMISTRY METHOD 08/05/2024 11:26 AM EDT [facility] VLDL Cholesterol Hong 61.2 mg/dL LAB CHEMISTRY METHOD 08/05/2024 11:26 AM [facility] Non HDL Chol. (LDL+VLDL) 155(H) <145 mg/dL LAB CHEMISTRY METHOD 08/05/2024 11:26 AM [facility] Chol/HDL Ratio 7.0(H) 0.0 - 4.4 LAB CHEMISTRY METHOD 08/05/2024 11:26 AM [facility] Blood Venous blood specimen / Unknown Venipuncture / Unknown 08/05/2024 7:00 AM EDT 08/05/2024 9:58 AM EDT us Annie Barraza [employer] LAB BLOOD ORDERABLES Final Re sult [facility] [address] [place] [address], documented in this encounter Visit Diagnoses Diagnosis Other terminal worker (current) drug therapy documented in this encounter Care Teams Lump Inspector Relationship Specialty Start Date End Date Yoel Parrish MD [address] [place] [address] [phone] PCP - General Internal Medicine 01/27/24 documented as of this encounter
--- OUTSIDE RECORDS SUMMARY | 2024-12-04 22:15 | XMS_ITS | Clinical Summary ---
Author Organization [facility] Address [address] [facility] [address] [place] [phone] Phone Care Team Providers Care [facility] Cna Name Role Phone Pcp, Unknown Primary Care [...] 5:58 AM EDT Emergency [facility] [address] [place] [address] Brenda Sofia MD Discharge Disposition: Home or Self Care 09/03/2024 12:12 AM EDT - 09/03/2024 2:18 AM EDT Emergency [facility] [address] [place] [address] Vik Arrington MD Discharge Disposition: Home or [...] FOBT 2011 SIGMOIDOSCOPY 2011 VIRTUAL COLONOSCOPY 2011 RSV VACCINE (1 - Risk 50-74 years 1-dose series) 01/07/2016 ZOSTER VACCINES (1 of 2) 01/07/2016 DIABETIC EYE EXAM 09/15/2024 URINE MICROALBUMIN/CREATININE RATIO 09/15/2024 INFLUENZA VACCINE (#1) 2024 COVID-19 VACCINE (1 - season) 2024 HEMOGLOBIN A1C 02/25/2025 08/26/2024, 08/05/2024 [...] Glucose, POCT 282(H) 70 - 100 mg/dL [facility] 09/04/2024 5:32 AM EDT 09/04/2024 5:38 AM EDT us Brenda Sofia MD POINT OF CARE TEST ORDERABLE S Final Result [facility] [address] [place] [address] * (ABNORMAL) CBC and differential (09/04/2024 4:28 AM EDT) [facility] WBC 8.93 4.00 - 11.00 K/uL [facility] RBC 4.75 4.50 - 5.90 M/uL [facility] HGB 13.2(L) 13.5 - 17.5 g/dL [facility] HCT 39.9(L) 41.0 - 53.0 % [facility] PLT 244 150 - 450 K/uL [facility] MCV 84.0 80.0 - 100.0 [facility] MCH 27.8 27.0 - 31.0 pg [facility] MCHC 33.1 32.0 - 36.0 g/dL [facility] RDW 13.5 11.5 - 14.5 % [facility] MPV 9.5 8.4 - 12.0 [facility] NRBC 0.00 0.00 /100 WBCs [facility] ABSOLUTE NRBC 0.00 0.00 K/uL [facility] DIFF METHOD Auto [facility] NEUTS 69.5 48.0 - 76.0 % [facility] LYMPHS 19.8 18.0 - 41.0 % [facility] MONOS 9.6 4.0 - 11.0 % [facility] EOS 0.6 0.0 - 5.0 % [facility] BASOS 0.3 0.0 - 1.5 % [facility] Granulocytes, immature (%) 0.2 0.0 - 0.9 % [facility] ABSOLUTE NEUTS 6.20 1.92 - 7.60 K/uL [facility] ABSOLUTE LYMPHS 1.77 0.72 - 4.10 K/uL [facility] ABSOLUTE MONOS 0.86 0.16 - 1.10 K/uL [facility] ABSOLUTE EOS 0.05 0.00 - 0.50 K/uL [facility] ABSOLUTE BASOS 0.03 0.00 - 0.15 K/uL [facility] Granulocytes, immature 0.02 0.00 - 0.09 K/uL [facility] Blood 09/04/2024 4:28 AM EDT 09/04/2024 4:30 AM EDT us Brenda Sofia MD LAB BLOOD ORDERABLES Final R esult Performing Organization Address City/[facility]/ZIP Co de Phone Number [address] [address] * (ABNORMAL) CPK (creatine kinase) (09/04/2024 4:28 AM EDT) CREATINE KINASE 257(H) 35 - 232 U/L [facility] Blood 09/04/2024 4:28 AM EDT 09/04/2024 4:30 AM EDT us Brenda Sofia MD LAB BLOOD ORDERABLES Final R esult [address] [address] * (ABNORMAL) Basic metabolic panel (09/04/2024 4:28 AM EDT) SODIUM 134 133 - 146 mmol/L [facility] CHLORIDE 99 96 - 108 mmol/L [facility] POTASSIUM 4.2 3.3 - 5.1 mmol/L [facility] CO2 23 21 - 35 mmol/L [facility] BUN 27(H) 6 - 19 mg/dL [facility] CREATININE 1.20 0.5 - 1.5 mg/dL [facility] GLUCOSE 329(H) 70 - 99 mg/dL [facility] CALCIUM 9.2 8.4 - 10.3 mg/dL [facility] EGFR 70 >59 mL/min/1.7 3m2 [facility] Comment:Estimated glomerular filtration rate calculated using the CKD-EPI refit equation. ANION GAP 16 10 - 20 mmol/L [facility] Blood 09/04/2024 4:28 AM EDT 09/04/2024 4:30 AM EDT us Brenda Sofia MD LAB BLOOD ORDERABLES Final R esult Performing Organization Address City/[facility]/ZIP Co de Phone Number [address] [address] * (ABNORMAL) Urinalysis w/reflex Urine Culture (09/04/2024 2:45 AM EDT) COLOR Yellow Yellow [facility] [place] [facility] GLUCOSE Negative Negative [facility] BILI 1+(A) Negative [facility] KETONES Negative Negative [facility] SPECIFIC GRAVITY >1.030 1.005 - 1.030 [facility] BLOOD 1+(A) Negative [facility] PH 6.0 5.0 - 8.0 [facility] Protein-UA 3+(A) Negative [facility] NITRITE Negative Negative [facility] Leukocyte esterase, ur Negative Negative [facility] Urine (Urine) 09/04/2024 2:4 5 AM EDT 09/04/2024 2:48 AM EDT Brenda Sofia MD URINE ORDERABLES Final Resul t [address] [address] * (ABNORMAL) Urine sediment (09/04/2024 2:45 AM EDT) WBC 0-4(A) NONE SEEN /hpf [facility] RBC 3-5(A) NONE SEEN /hpf [facility] URINE EPITHELIAL 0-4(A) NONE SEEN [facility] MUCUS 3+(A) NONE SEEN /hpf [facility] BACTERIA Trace(A) NONE SEEN /hpf [facility] CAST 6-10 [facility] Comment:HYALINE CAST 09/04/2024 2:45 AM EDT 09/04/2024 2:48 AM EDT us Brenda Sofia MD URINE ORDERABLES Final Resul t [facility] [address] [place] [address] from Last 3 Months Insurance MEDICARE REPLACEMENT MEDICARE REPLACEMENT [address] [place] [id number] [place] [address] [place] [address] [place] [id number] [place] [address] [place] [address] ONE [employer] MEDICARE REPLACEMENT [facility] Care Teams Hospital Cna Relationship Specialty Start Date End Date Pcp, Unknown PCP - General 07/16/24 Additional Source Comments The information contained in this document represents components of the legal health record. It is not the complete legal health record.[facility]
--- OUTSIDE RECORDS SUMMARY | 2024-12-04 22:15 | XMS_ITS ---
Author Organization [facility] Address [address] [place] [phone] Phone Care Team Providers Care Electromechanical Technician Name Role Phone Yoel Parrish MD Primary Care Provider +1 -[phone] [facility] - Housing Status:Ongoing (Active) Start date:04/11/2024 Enrollment date:04/11/2024 Enrollment reason:Walk-in Related social drivers of health:Housing Instability Related program episode:Community Health Worker Program (Closed) Overview Housing service of Community Health Worker Program Case Team Name Relationship Phone Vu Chicas(Responsible Staff) Community He alth Worker Continued Care and Services Coordination
--- OUTSIDE RECORDS SUMMARY | 2024-12-04 22:15 | XMS_ITS | Encounter Summary ---
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 Social History Tobacco Use [...] 10:39 PM EDT Hannah Burnham RN * [place] Suicide Severity Rating Scale (Screener/Recent Self-Report) Question [...] PANEL Routine 08/29/2024 7:00 AM EDT 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 documented in this encounter Results * (ABNORMAL) Basic metabolic panel (08/29/2024 7:00 AM EDT) [facility] Sodium 138 133 - 145 mmol/L LAB CHEMISTRY METHOD 08/29/2024 11:26 AM T [facility] Potassium 4.4 3.5 - 5.5 mmol/L LAB CHEMISTRY METHOD 08/29/2024 11:26 AM T [facility] Chloride 104 96 - 110 mmol/L LAB CHEMISTRY METHOD 08/29/2024 11:26 AM T [facility] CO2 28 21 - 32 mmol/L LAB CHEMISTRY METHOD 08/29/2024 11:26 AM [facility] Anion Gap 6 3 - 11 LAB CHEMISTRY METHOD 08/29/2024 11:26 AM [facility] Glucose 175(H) 70 - 100 mg/dL LAB CHEMISTRY METHOD 08/29/2024 11:26 AM [facility] BUN 19 5 - 25 mg/dL LAB CHEMISTRY METHOD 08/29/2024 11:26 AM [facility] Creatinine 1.06 0.70 - 1.30 mg/dL LAB CHEMISTRY METHOD 08/29/2024 11:26 AM [facility] eGFR 81 >=60 mL/min/1. 73m2 LAB CHEMISTRY METHOD 08/29/2024 11:26 AM [facility] Comment:Calculation based on the Chronic Kidney Disease Epidemiology Collaboration (CKD-EPI) equation refit without adjustment for race. 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
--- OUTSIDE RECORDS SUMMARY | 2024-12-04 22:15 | XMS_ITS | Encounter Summary ---
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
--- OUTSIDE RECORDS SUMMARY | 2024-12-04 22:15 | XMS_ITS | Encounter Summary ---
Author Organization [employer] Address [address] [place] [address] Care Team Providers Care Mail Distributor Name Role Phone Yoel Parrish MD Primary Care Provider [phone] -[phone] Encounter Details Date Type Department Care Team (Late st Contact Info) Description 11/23/2024 Lab Requisition [facility] - Main Lab [address] [facility] [place] [address] Ally Gibson [address] [place] [phone] Social History Tobacco Use Types Packs/Day [...] for your loved ones. 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
--- OUTSIDE RECORDS SUMMARY | 2024-12-04 22:15 | XMS_ITS ---
Author Organization [facility] Address [address] [place] [phone] Phone Care Team Providers Care Transition Rn Name Role Phone Yoel Parrish MD Primary Care Provider +1 -[phone] [facility] - Food Insecurity Status:Ongoing (Active) Start date:04/11/2024 Enrollment date:04/11/2024 Enrollment reason:Walk-in Related social drivers of health:Food Risk Related program episode:Community Health Worker Program (Closed) Overview Community Health Worker Program - Food Insecurity Service Episode Case Team Name Relationship Phone Vu Chicas(Responsible Staff) Community He alth Worker Continued Care and Services Coordination
--- OUTSIDE RECORDS SUMMARY | 2024-12-04 22:15 | XMS_ITS | Encounter Summary ---
Author Organization [employer] Address [address] [place] [address] Care Team Providers Care Defense Travel Administrator Name Role Phone Yoel Parrish MD Primary Care Provider +1 -[phone] Encounter Details Date Type Department Care Team (Late st Contact Info) Description 08/29/2024 Lab Requisition [facility] - Main Lab [address] [facility] [place] [address] [facility] [address] [place] [address] [phone] Social History Tobacco Use Types Packs/Day Years [...] 10:39 PM EDT Hannah Burnham RN * [place] Suicide Severity Rating Scale (Screener/Recent Self-Report) Question [...] on filedocumented in this encounter Care Teams Defense Travel Administrator Relationship Specialty Start Date End Date Yoel Parrish MD [address] [place] [phone] PCP - General Internal Medicine 01/27/24 documented as of this encounter
--- OUTSIDE RECORDS SUMMARY | 2024-12-04 22:16 | XMS_ITS ---
Author Organization [facility] Address [address] [place] [phone] Phone Care Team Providers Care Application Security Specialist Name Role Phone Yoel Parrish MD Primary Care Provider +1 -[phone] [facility] - Behavioral Health Status:Ongoing (Active) Start date:04/11/2024 Enrollment date:04/11/2024 Enrollment reason:Walk-in Related program episode:Community Health Worker Program (Closed) Overview Behavior Health service of Community Health Worker Program Case Team Name Relationship Phone Vu Chicas(Responsible Staff) Community He alth Worker Continued Care and Services Coordination
--- OUTSIDE RECORDS SUMMARY | 2024-12-04 22:16 | XMS_ITS | Clinical Summary ---
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 [facility] Anion Gap 5 3 - 11 LAB CHEMISTRY METHOD 11/03/2024 8:53 PM [facility] Glucose 202(H) 70 - 100 mg/dL LAB CHEMISTRY METHOD 11/03/2024 8:53 PM [facility] BUN 27(H) 5 - 25 mg/dL LAB CHEMISTRY METHOD 11/03/2024 8:53 PM [facility] Creatinine 1.08 0.70 - 1.30 mg/dL LAB CHEMISTRY METHOD 11/03/2024 8:53 PM [facility] eGFR 80 >=60 mL/min/1. 73m2 LAB CHEMISTRY METHOD 11/03/2024 8:53 PM [facility] Comment:Calculation based on the Chronic Kidney Disease Epidemiology Collaboration (CKD-EPI) equation refit without adjustment for race. BUN/Creatinine Ratio 25.0 LAB CHEMISTRY METHOD 11/03/2024 8:53 PM [facility] Calcium 9.4 8.5 - 10.5 mg/dL LAB CHEMISTRY METHOD 11/03/2024 8:53 PM [facility] Blood Venous blood specimen / Unknown Venipuncture / Unknown 11/03/2024 7:47 PM EDT 11/03/2024 8:24 PM EDT us Charles Wilhelm MD LAB BLOOD ORDERABLES Final Result [facility] [address] [place] [address], * XR Hand 3+ Views Right (10/04/2024 [...] Signed Date: 10/04/2024 07:01 ET Workstation ID: [id number] Transcribed By: Self Edit Transcribed Date: 10/04/2024 [...] Signed Date: 10/04/2024 07:01 ET Workstation ID: [id number] Transcribed By: Self Edit Transcribed Date: 10/04/2024 06:58 ET Pilar Landeros MD IMG XR PROCEDURES Final Result * ECG 12 lead (10/04/2024 12:10 AM EDT) Ventricular Rate ECG 95 BPM GEMUSE Atrial Rate 95 BPM GEMUSE P-R Interval 136 ms GEMUSE QRS Duration 88 ms GEMUSE Q-T Interval 368 ms GEMUSE QTc 462 ms GEMUSE P Wave [place] 46 degrees GEMUSE R [place] 56 degrees GEMUSE T [place] 21 degrees GEMUSE ECG Interpretation Normal sinus [...] on 09/29/2024 01:37:39 Lory Maria Ines Silva [employer]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 CT PROCEDURES Final R esult * (ABNORMAL) Urinalysis with reflex microscopic and culture (09/05/2024 6:59 PM EDT) Specific [place] Urine 1.031(H) 1.003 - 1.030 LAB URINALYSIS - AUTOMATED METHOD 09/05/2024 7:49 PM [facility] pH, Urine 5.5 5.0 - 8.0 pH LAB URINALYSIS - AUTOMATED METHOD 09/05/2024 7:49 PM [facility] Leukocytes, Urine Negative Negative LAB URINALYSIS - AUTOMATED METHOD 09/05/2024 7:49 PM [facility] Nitrite, Urine Negative Negative LAB URINALYSIS - AUTOMATED METHOD 09/05/2024 7:49 PM [facility] Protein, Urine 100(A) <=Trace mg/dL LAB URINALYSIS - AUTOMATED METHOD 09/05/2024 7:49 PM [facility] Glucose, Urine Negative Negative mg/dL LAB URINALYSIS - AUTOMATED METHOD 09/05/2024 7:49 PM [facility] Ketones, Urine Trace(A) Negative mg/dL LAB URINALYSIS - AUTOMATED METHOD 09/05/2024 7:49 PM [facility] Urobilinogen, Urine 1.0 0.2 - 1.0 mg/dL LAB URINALYSIS - AUTOMATED METHOD 09/05/2024 7:49 PM [facility] Bilirubin, Urine Negative Negative LAB URINALYSIS - AUTOMATED METHOD 09/05/2024 7:49 PM [facility] Blood, Urine Trace(A) Negative LAB URINALYSIS - AUTOMATED METHOD 09/05/2024 7:49 PM EDT [facility] RBC, Urine 2.2 0 - 4 /HPF LAB URINALYSIS - AUTOMATED METHOD 09/05/2024 7:49 PM EDT [facility] WBC, Urine 1.2 0 - 4 /HPF LAB URINALYSIS - AUTOMATED METHOD 09/05/2024 7:49 PM EDT [facility] Squamous Epithelial, Urine 15 0 - 60 /LPF LAB URINALYSIS - AUTOMATED METHOD 09/05/2024 7:49 PM EDT [facility] Bacteria, Urine Negative Negative /HPF LAB URINALYSIS - AUTOMATED METHOD 09/05/2024 7:49 PM EDT [facility] Hyaline Casts, Urine 0.8 0 - 3 /LPF LAB URINALYSIS - AUTOMATED METHOD 09/05/2024 7:49 PM EDT [facility] Urine Urine specimen obtained by clean catch procedure / Unknown Non-blood Collection / Unknown 09/05/2024 6:59 PM EDT 09/05/2024 7:27 PM EDT Charles Wilhelm MD LAB URINE ORDERABLES Final Result Performing Organization Address [facility]/ZIP Co de Phone Number [facility] [address] [place] [address], [place] [phone] * [place] urine culture tube (09/05/2024 6:59 PM EDT) Extra Tube Hold for add-ons. 09/05/2024 9:01 PM EDT [facility] Comment:Auto resulted. Urine Urine specimen obtained by clean catch procedure / Unknown Non-blood Collection / Unknown 09/05/2024 6:59 PM EDT 09/05/2024 7:28 PM EDT Charles Wilhelm MD LAB URINE ORDERABLES Final Result [facility] ([facility] [address] [place] [address], from Last 3 Months Insurance [employer] Member Subscriber Plan / Payer (Ef fective 2024-Present) Name:ANDREAS CONWAY Relation to Subscriber:Self Name:Andreas Conway Payer ID:[id number] Group ID:[id number] Type:Not on file Address: [place] [facility] [place] [id number] Care Teams Foreign Food Specialty Cook Relationship Specialty Start Date End Date Yoel Parrish MD [address] [place] [phone] PCP - General Internal Medicine 01/27/24
[2024-12-04 22:34] LABS: Alanine Aminotransferase 33 U/L (0-40); Albumin Level 4.6 g/dL (3.5-5.0); Alkaline Phosphatase 92 U/L (39-117); Anion Gap 12 (12-20); Aspartate Amino Transferase 32 U/L (5-37); Blood Urea Nitrogen 27 mg/dL (9-16); Calcium 9.2 mg/dL (8.4-10.2); Carbon Dioxide 26 mmol/L (22-29); Chloride 103 mmol/L (96-108); Creatinine Clr Calc Pharmacy 69.2; Estimated Glomerular Filt Rate > 60; Lipase 32 U/L (8-78); Potassium 4.1 mmol/L (3.3-5.1); Sodium 137 mmol/L (135-145); Total Protein 7.9 g/dL (6.5-8.0)
[2024-12-04] MEDS: Sucralfate Oral Suspension 1 GM/10 ML ORAL.SUSP PO (23:41)
[2024-12-04 23:42] VITALS: BP 169/86; PULSE 87; RESP 18; TEMP 36.6; O2SAT 98
--- NOTE | 2024-12-05 01:57 | ED.GENADULT ---
HPI - General Adult General Chief complaint: Abdominal Pain Stated complaint: stomah ache, indigestion Time Seen by Provider: 12/04/24 23:01 Source: patient Limitations: language barrier History of Present Illness ED Provider: Eleanor Gamboa PA-C HPI narrative: 59-year-old male with a history of schizophrenia, housing insecurity, polysubstance presents with the abdominal pain x 2 days. Pain over epigastric region, described as ?poison is stuck in there?, a burning sensation. Patient has a little describes a ?foul taste? in his mouth. Associated nausea. Denies abdominal distention, constipation or inability to pass flatus. Related Data Home Medications ?Medication ?Instructions ?Recorded ?Confirmed melatonin 10 mg tablet 10 mg PO BEDTIME 06/28/24 11/03/24 metformin 1,000 mg tablet 1,000 mg PO BID 06/28/24 11/20/24 albuterol sulfate 90 mcg/actuation 2 puff inhalation QID PRN wheezing 09/06/24 11/20/24 aerosol inhaler aspirin 81 mg tablet,delayed 81 mg PO DAILY 09/06/24 11/20/24 release atorvastatin 40 mg tablet 20 mg PO DAILY 09/06/24 11/20/24 gabapentin 300 mg capsule 300 mg PO TID PRN neuropathy 09/06/24 11/20/24 quetiapine 400 mg tablet 400 mg PO DAILY@1700 09/06/24 11/20/24 quetiapine 50 mg tablet 50 mg PO BID PRN AGITATION/RACING 09/06/24 11/20/24 THOUGHTS trazodone 50 mg tablet 50 mg PO BEDTIME PRN Sleep 09/06/24 11/20/24 hydroxyzine pamoate 50 mg capsule 50 mg PO BID PRN Anxiety 10/24/24 11/20/24 paroxetine HCl 20 mg tablet 40 mg PO DAILY 10/24/24 11/20/24 acetaminophen 500 mg tablet 1,000 mg PO Q6H PRN mild pain 11/20/24 11/20/24 cyclobenzaprine 10 mg tablet 10 mg PO BID PRN Muscle Spasm 11/20/24 11/20/24 docusate sodium 100 mg capsule 100 mg PO Q12H 11/20/24 11/20/24 ibuprofen 200 mg tablet 400 mg PO Q6H PRN fever 09/21/25 09/21/25 insulin glargine 100 unit/mL 15 unit subcut BEDTIME diabetes 11/20/24 11/20/24 subcutaneous solution (Lantus mellitus U-100 Insulin) naproxen 375 mg tablet 375 mg PO BID 11/20/24 11/20/24 ondansetron 4 mg disintegrating 4 mg PO Q8H PRN Nausea And Vomiting 11/20/24 11/20/24 tablet pantoprazole 40 mg tablet,delayed 40 mg PO BID 11/20/24 11/20/24 release Previous Rx's ?Medication ?Instructions ?Recorded insulin lispro 100 unit/mL See Protocol subcut QIDACHS 30 06/15/24 subcutaneous solution (Admelog days #10 mL U-100 Insulin lispro) sitagliptin phosphate 100 mg 100 mg PO DAILY 30 days #30 tabs 06/15/24 tablet (Januvia) polyethylene glycol 3350 17 See Rx Instructions .Route 10/24/24 gram/dose oral powder (Miralax) .COMPLEX #119 grams omeprazole 20 mg capsule,delayed 20 mg PO DAILY #30 caps 12/02/24 release sucralfate 100 mg/mL oral 10 ml PO QID PRN indigestion #300 12/05/24 suspension (Carafate) mL Allergies Allergy/AdvReac Type Severity Reaction Status Date / Time glipizide (GLIPIZIDE) Allergy Intermediate ITCHY Verified 12/04/24 21:57 oxycodone Allergy Hives Verified 12/04/24 21:57 Review of Systems Review of Systems: Yes all other systems are reviewed and are negative Constitutional: Constitutional: Denies fatigue and Denies fever(s) Cardiovascular: Cardiovascular: Denies chest pain and Denies dyspnea Respiratory: Respiratory: Denies dyspnea Gastrointestinal: Gastrointestinal: Reports abdominal pain, Denies bloating, Denies constipation, Denies diarrhea, Reports nausea and Denies vomiting Endocrine: Endocrine: Denies fatigue PMFSH Past Medical History Attestation statement: The following information was validated with the patient. Medical History Asthma Depression MDD (major depressive disorder), recurrent episode, moderate Cocaine use disorder Substance-induced psychotic disorder Anxiety Diabetes Surgical History History of facial surgery H/O knee surgery Social History Social History Household Members: None Housing: Homeless Do you presently have visiting nurse or other home services: No Alcohol intake: current Alcohol intake frequency: a few times a month Alcohol type: beer Patient Tobacco Use Status: Current everyday Tobacco user Tobacco use type: Cigarette Cigarette Packs Per Day: 1 Cigarettes Per Day: 20.0 Years Smoked: 35 Smoked in Last 30 Days: Yes e-Cigarette/Vaping Use: Former Use Second Hand Smoke Exposure: No Use of substances other than those prescribed or required for medical reasons: No Substance Use Type: Crack/Cocaine Advance Directives: Yes Advance Directives on File: Yes Advance Directives Date on File: 10/24/21 service: No Sexual orientation: Straight/Heterosexual Physical Exam ED Vital Signs: Vital Signs - 24 hr 12/04/24 21:56 12/04/24 23:42 Temperature 98.6 F 97.9 F Pulse Rate 73 87 Respiratory Rate 20 18 Blood Pressure 173/79 H 169/86 H Pulse Oximetry 98 98 Oxygen Delivery Method Room Air Room Air BMI result Body Mass Index 25.9 Const Other: Sleeping in bed, easily woken with verbal stimuli Orientation/consciousness: patient oriented x3 HENMT Other: Alcohol halitosis Resp Effort & Inspection: normal respiratory effort Cardio Other: Normal peripheral perfusion GI Other: No distention, no pain no guarding Inspection: Yes normal to inspection Skin Other: Warm dry no rash Neuro General: patient oriented x3, gait normal, no focal motor deficits and CN's II-XI intact bilaterally Psych Other: Cooperative Course Reevaluation(s) Reevaluation #1: Carafate help to alleviate symptoms Time: 02:25 Medications Administered Discontinued Medications Generic Name Dose Route Start Last Admin Trade Name Joselitoq PRN Reason Stop Dose Admin Sucralfate 1 gm 12/04/24 23:36 12/04/24 23:41 Sucralfate Oral Suspension 1 Gm/10 Ml Oral.Susp PO 12/04/24 23:37 1 gm ONCE ONE Administration Medical Decision Making Medical Decision Making [facility] Narrative: 59-year-old male with a history of schizophrenia, housing insecurity, polysubstance presents with the abdominal pain x 2 days. Pain over epigastric region, described as ?poison is stuck in there?, a burning sensation. Patient has a little describes a ?foul taste? in his mouth. Associated nausea. Denies abdominal distention, constipation or inability to pass flatus. Problem: Psychiatric illness, polysubstance abuse, housing and security History: Per patient I have considered the following differential diagnoses: Biliary colic, cholecystitis, gastritis, pancreatitis, viral gastritis, constipation Plan: Patient is here with vague abdominal pain, his screening labs are completely unremarkable. His abdominal exam was unremarkable. Obtaining a KUB. He was seen for very similar presentation in the summer, he was significantly constipated at that time. To note, at this time he has no obstructive symptoms. He does not warrant advanced imaging at this time. I have low suspicion for any acute intra-abdominal pathology. I have independently reviewed the following tests: Labs: No leukocytosis, not anemic, no electrolyte abnormality KUB:Findings: Mild atelectasis of the imaged lung bases. Severe stool burden present, including imaged cecum. No small bowel dilatation. Mild/borderline gaseous distention of the partially imaged sigmoid colon. Degenerative changes include imaged hips and imaged spine. Superficial opacities present. IMPRESSION: 1. No small bowel obstruction. 2. Severe stool burden. Differential Diagnosis Differential Diagnoses: The differential diagnosis associated with the presentation includes See medical decision-making Admission/Observation Consideration of admission/observation: Escalation of care including admission/observation considered Not applicable Lab Data MDM Lab Attestation statement: I reviewed the patient's lab results. 12/04/24 22:05 12/04/24 22:05 Labs: Lab Results 12/04/24 Range/Units 22:05 WBC 7.8 (4.8-10.8) X10*3/uL RBC 4.81 (4.60-5.80) X10*6/uL Hgb 13.2 L (14.0-18.0) g/dl Hct 39.4 L (42.0-52.0) % MCV 81.9 (80.0-98.0) fL MCH 27.4 (27.0-33.0) pg MCHC 33.5 (31.0-36.0) g/dl RDW 14.0 (11.0-16.0) % Plt Count 284 (160-400) X10*3/uL MPV 9.4 (9.4-12.4) fL Immature Gran % (Auto) 0.3 (0.0-0.4) % Neut % (Auto) 66.1 (45-73) % Lymph % (Auto) 20.4 (20-40) % [place] % (Auto) 12.5 H (2-11) % Eos % (Auto) 0.3 (0-4) % Baso % (Auto) 0.4 (0-2) % Lymph # (Auto) 1.6 (1.2-4.9) X10*3/uL [place] # (Auto) 1.0 (0.1-1.2) X10*3/uL Eos # (Auto) 0.0 (0.0-0.4) X10*3/uL Baso # (Auto) 0.0 (0.0-0.2) X10*3/uL Abs Immat Gran (auto) 0.02 (0.00-0.03) X10*3/uL Absolute Neuts (auto) 5.1 (2.0-8.3) x10*3/uL Absolute Nucleated RBC 0.000 (0.0-0.012) X10*3/uL Nucleated RBC % (auto) 0.0 (0.0-0.2) /100WBC Sodium 137 (135-145) mmol/L Potassium 4.1 (3.3-5.1) mmol/L Chloride 103 (96-108) mmol/L Carbon Dioxide 26 (22-29) mmol/L Anion Gap 12 (12-20) BUN 27 H (9-16) mg/dL Creatinine 1.05 (0.5-1.4) mg/dL Estim Creat Clear Calc 69.2 Estimated GFR > 60 Random Glucose 171 H (60-115) mg/dL Calcium 9.2 D (8.4-10.2) mg/dL Total Bilirubin 0.5 (0.0-1.0) mg/dL AST 32 (5-37) U/L ALT 33 (0-40) U/L Alkaline Phosphatase 92 (39-117) U/L Total Protein 7.9 (6.5-8.0) g/dL Albumin 4.6 (3.5-5.0) g/dL Lipase 32 (8-78) U/L Radiology Impression Discussion of test interpretation with radiology: I have reviewed the radiologist's reading. Discharge Plan Discharge Clinical Impression: Constipation, GERD (gastroesophageal reflux disease) Patient Disposition: Home, Self-Care Instructions: Constipation (ED), GERD (Gastroesophageal Reflux Disease) (ED) Additional Instructions: You were found to be constipated. See home care instructions. This is the likely cause of your upper abdominal discomfort and indigestion. Use [id number] Colace twice a day. This is a stool softener. Use [id number] MiraLax, multiple times a day, until you begin having multiple large volume bowel movements. Use the Carafate as needed for upper abdominal discomfort/indigestion. Follow up with your primary care provider as needed. Prescriptions: New sucralfate [Carafate] 100 mg/mL suspension 10 ml PO QID PRN (Reason: indigestion) Qty: 300 0RF Rx Instructions: swish in mouth and swallow; use after food/drink No Action insulin lispro [Admelog U-100 Insulin lispro] 100 unit/mL Solution See Protocol subcut QIDACHS 30 Days Qty: 10 0RF Protocol: Insulin Correction Scale Less than or equal to 110 ---- Give (units): 0 111 to 150 Give (units): 0 151 to 200 Give (units): 2 201 to 250 Give (units): 4 251 to 300 Give (units): 6 301 to 350 Give (units): 8 Greater than 350 Give (units): 10 Call MD if Blood Glucose > : 350 Januvia 100 mg tablet 100 mg PO DAILY 30 Days Qty: 30 0RF metformin 1,000 mg tablet 1,000 mg PO BID melatonin 10 mg tablet 10 mg PO BEDTIME aspirin 81 mg tablet,delayed release (DR/EC) 81 mg PO DAILY quetiapine 50 mg tablet 50 mg PO BID PRN (Reason: AGITATION/RACING THOUGHTS) quetiapine 400 mg tablet 400 mg PO DAILY@1700 gabapentin 300 mg capsule 300 mg PO TID PRN (Reason: neuropathy) albuterol sulfate 90 mcg/actuation HFA aerosol inhaler 2 puff INHALATION QID PRN (Reason: wheezing) trazodone 50 mg tablet 50 mg PO BEDTIME PRN (Reason: Sleep) atorvastatin 40 mg tablet 20 mg PO DAILY paroxetine HCl 20 mg Tablet 40 mg PO DAILY hydroxyzine pamoate 50 mg capsule 50 mg PO BID PRN (Reason: Anxiety) cyclobenzaprine 10 mg tablet 10 mg PO BID PRN (Reason: Muscle Spasm) naproxen 375 mg tablet 375 mg PO BID ondansetron 4 mg tablet,disintegrating 4 mg PO Q8H PRN (Reason: Nausea And Vomiting) acetaminophen 500 mg tablet 1,000 mg PO Q6H PRN (Reason: mild pain) pantoprazole 40 mg tablet,delayed release (DR/EC) 40 mg PO BID ibuprofen 200 mg tablet 400 mg PO Q6H PRN (Reason: fever) docusate sodium 100 mg capsule 100 mg PO Q12H insulin glargine [Lantus U-100 Insulin] 100 unit/mL solution 15 unit subcut BEDTIME omeprazole 20 mg capsule,delayed release(DR/EC) 20 mg PO DAILY Qty: 30 0RF polyethylene glycol 3350 [Miralax] 17 gram/dose powder See Rx Instructions .ROUTE .COMPLEX Qty: 119 0RF Rx Instructions: 17 g orally per instructions in your discharge paperwork. Print Language: Malagasy
[2024-12-05 03:38] VITALS: BP 169/86; PULSE 87; RESP 18; TEMP 36.6; O2SAT 98
[2024-12-05 03:39] VITALS: BP 169/86; PULSE 87; RESP 18; TEMP 36.6; O2SAT 98
== END 2024-12-05 03:40 | disposition home or self-care (01) ==
PROVIDERS: Emergency Provider Emergency Medicine
DX: K21.9 Gastro-esophageal reflux disease without esophagitis (principal); K59.00 Constipation, unspecified; R10.13 Epigastric pain; R11.0 Nausea; E11.9 Type 2 diabetes mellitus without complications; Z79.4 Long term (current) use of insulin; F17.210 Nicotine dependence, cigarettes, uncomplicated; Z79.899 Other long term (current) drug therapy
CPT/HCPCS: 36415; 74018; 80053; 83690; 85025; 99283; 99284

== ENCOUNTER → 2024-12-05 00:02 | Outpatient (BNV) | payer OTHER, SELFPAY | PROVIDERS: Visit Provider Radiology Neuroradiology | DX: K59.00 Constipation, unspecified (principal) | CPT/HCPCS: 74018 ==

== ENCOUNTER 2024-12-15 23:04 | Emergency (ER) | payer OTHER, SELFPAY ==
--- NOTE | ~2024-12-15 | CT_ITS ---
CLINICAL HISTORY: L Abd Pain Tenderness CT abdomen and pelvis with contrast Comparison: CT of the abdomen and pelvis from 07/30/2024 Findings: Pulmonary opacities are nonspecific and may reflect pneumonitis of the imaged lung bases. Emphysematous changes also partially imaged. Mild mediastinal fluid and small pericardial effusion with borderline cardiomegaly in the [id number]. Fat deposition redemonstrated in the liver. Gallbladder is partly obscured and otherwise unremarkable. Mild adrenal hyperplasia noted. Mild volume loss of the pancreas noted. Mild/borderline splenomegaly. No hydronephrosis. No small bowel obstruction. Imaged appendix is mildly patulous measures at the upper limits of normal without findings of acute appendicitis at this time. Severe stool burden is present, including the cecum. Small retroperitoneal and mesenteric lymph nodes are nonspecific and may be reactive. Calcified and noncalcified plaque include imaged aorta and its branches. Prostate gland measures 4 cm transverse. Mild wall thickening of the urinary bladder is noted. Degenerative changes include the hips, SI joints, and spine. Mild/minimal vertebral height losses. Old/chronic. Facet arthropathy is multifocal. IMPRESSION: 1. Severe stool burden. No small bowel obstruction. 2. Mild pulmonary opacities concerning for pneumonitis of the imaged lung bases. Recommend attention on follow-up to ensure resolution. This document has been electronically signed by: Gautam Robles MD on 12/16/2024 02:27:29
[2024-12-15 23:15] VITALS: BP 151/71; PULSE 87; RESP 20; TEMP 36; O2SAT 99; BMI 29.0
[2024-12-15 23:26] LABS: MANUAL DIFF FLAG NO
[2024-12-15 23:27] LABS: Hematocrit 43.0 % (42.0-52.0); Hemoglobin 14.2 g/dl (14.0-18.0); Imm Gran Abs Auto 0.07 X10*3/uL (0.00-0.03); Imm Gran Pct Auto 0.5 % (0.0-0.4); Lymphocytes Absolute Auto 2.4 X10*3/uL (1.2-4.9); Mean Corpuscular HGB Conc 33.0 g/dl (31.0-36.0); Mean Corpuscular Hemoglobin 26.8 pg (27.0-33.0); Mean Corpuscular Volume 81.3 fL (80.0-98.0); NRBC Abs Auto 0.000 X10*3/uL (0.0-0.012); NRBC Pct Auto 0.0 /100WBC (0.0-0.2); Platelet Count 315 X10*3/uL (160-400); Red Blood Count 5.29 X10*6/uL (4.60-5.80); White Blood Count 14.8 X10*3/uL (4.8-10.8)
--- NOTE | 2024-12-15 23:29 | ED.ABDPAIN ---
HPI - Abdominal Pain General Chief Complaint: Abdominal Pain Stated Complaint: ulcer Time Seen by Provider: 12/15/24 23:28 Source: patient Mode of arrival: ambulatory Limitations: language barrier (S[employer] D[employer] Machine Operator services utilized) History of Present Illness ED Provider: Joel LA HPI narrative: The patient is a 59-year-old male with a history of schizophrenia, PTSD, cocaine use, housing insecurity, and previous upper GI bleed secondary to a gastric ulcer diagnosed 3 months ago by endoscopy, presenting to the ED for evaluation of increasing left upper quadrant abdominal pain with nausea and an associated episode of a solitary dark spot on formed otherwise brown stool approximately 5 hours prior to arrival in the ED. The patient denies associated hematochezia, vomiting, diarrhea, chest pain, shortness of breath, dizziness, near-syncope, syncope, recent sick contacts, or recent trauma. The patient reports he was supposed to follow up with GI for additional management after the colonoscopy but missed the appointment. The patient denies anticoagulation. Related Data Home Medications ?Medication ?Instructions ?Recorded ?Confirmed melatonin 10 mg tablet 10 mg PO BEDTIME 06/28/24 11/03/24 metformin 1,000 mg tablet 1,000 mg PO BID 06/28/24 11/20/24 albuterol sulfate 90 mcg/actuation 2 puff inhalation QID PRN wheezing 09/06/24 11/20/24 aerosol inhaler aspirin 81 mg tablet,delayed 81 mg PO DAILY 09/06/24 11/20/24 release atorvastatin 40 mg tablet 20 mg PO DAILY 09/06/24 11/20/24 gabapentin 300 mg capsule 300 mg PO TID PRN neuropathy 09/06/24 11/20/24 quetiapine 400 mg tablet 400 mg PO DAILY@1700 09/06/24 11/20/24 quetiapine 50 mg tablet 50 mg PO BID PRN AGITATION/RACING 09/06/24 11/20/24 THOUGHTS trazodone 50 mg tablet 50 mg PO BEDTIME PRN Sleep 09/06/24 11/20/24 hydroxyzine pamoate 50 mg capsule 50 mg PO BID PRN Anxiety 10/24/24 11/20/24 paroxetine HCl 20 mg tablet 40 mg PO DAILY 10/24/24 11/20/24 acetaminophen 500 mg tablet 1,000 mg PO Q6H PRN mild pain 11/20/24 11/20/24 cyclobenzaprine 10 mg tablet 10 mg PO BID PRN Muscle Spasm 11/20/24 11/20/24 docusate sodium 100 mg capsule 100 mg PO Q12H 11/20/24 11/20/24 ibuprofen 200 mg tablet 400 mg PO Q6H PRN fever 11/20/24 11/20/24 insulin glargine 100 unit/mL 15 unit subcut BEDTIME diabetes 11/20/24 11/20/24 subcutaneous solution (Lantus mellitus U-100 Insulin) naproxen 375 mg tablet 375 mg PO BID 11/20/24 11/20/24 ondansetron 4 mg disintegrating 4 mg PO Q8H PRN Nausea And Vomiting 11/20/24 11/20/24 tablet pantoprazole 40 mg tablet,delayed 40 mg PO BID 11/20/24 11/20/24 release Previous Rx's ?Medication ?Instructions ?Recorded insulin lispro 100 unit/mL See Protocol subcut QIDACHS 30 06/15/24 subcutaneous solution (Admelog days #10 mL U-100 Insulin lispro) sitagliptin phosphate 100 mg 100 mg PO DAILY 30 days #30 tabs 06/15/24 tablet (Januvia) polyethylene glycol 3350 17 See Rx Instructions .Route 10/24/24 gram/dose oral powder (Miralax) .COMPLEX #119 grams omeprazole 20 mg capsule,delayed 20 mg PO DAILY #30 caps 12/02/24 release sucralfate 100 mg/mL oral 10 ml PO QID PRN indigestion #300 12/05/24 suspension (Carafate) mL docusate sodium 100 mg capsule 100 mg PO DAILY #14 caps 12/16/24 (Colace) famotidine 20 mg tablet (Pepcid) 20 mg PO BID #28 tabs 12/16/24 polyethylene glycol 3350 17 17 g PO DAILY #119 grams 12/16/24 gram/dose oral powder (Miralax) Allergies Allergy/AdvReac Type Severity Reaction Status Date / Time glipizide (GLIPIZIDE) Allergy Intermediate ITCHY Verified 12/15/24 23:17 oxycodone Allergy Hives Verified 12/15/24 23:17 Review of Systems Review of Systems Yes all other systems are reviewed and are negative PMFSH Past Medical History Medical History Asthma Depression MDD (major depressive disorder), recurrent episode, moderate Cocaine use disorder Substance-induced psychotic disorder Anxiety Diabetes Surgical History History of facial surgery H/O knee surgery Social History Social History Household Members: None Housing: Homeless Do you presently have visiting nurse or other home services: No Alcohol intake: current Alcohol intake frequency: does not drink Alcohol type: beer Patient Tobacco Use Status: Current everyday Tobacco user Tobacco use type: Cigarette Cigarette Packs Per Day: 1 Cigarettes Per Day: 20.0 Years Smoked: 35 Smoked in Last 30 Days: Yes e-Cigarette/Vaping Use: Former Use Second Hand Smoke Exposure: No Substance Use Type: Crack/Cocaine Advance Directives: Yes Advance Directives on File: Yes Advance Directives Date on File: 10/24/21 service: No Sexual orientation: Straight/Heterosexual Physical Exam ED Vital Signs: Vital Signs - 24 hr 12/15/24 23:15 12/15/24 23:42 12/16/24 02:53 Temperature 96.8 F 97.7 F Pulse Rate 87 94 74 Respiratory Rate 20 18 16 Blood Pressure 151/71 H 133/79 139/82 Pulse Oximetry 99 97 96 Oxygen Delivery Method Room Air Room Air Room Air 12/16/24 04:00 Temperature 98 F Pulse Rate 81 Respiratory Rate 18 Blood Pressure 146/76 H Pulse Oximetry 96 Oxygen Delivery Method Room Air BMI result Body Mass Index 29.0 CONSTITUTIONAL: The patient appears in mild discomfort, but otherwise non-toxic, well nourished and in no acute distress. Vital signs as documented. HEAD: Atraumatic, normocephalic. EYES: EOMs grossly intact, pupils equal, conjunctiva clear, no exudate. ENT: Nares patent, no discharge. Airway patent, no audible stridor, visible mucosa is pink and moist without noted lesions. NECK: Trachea is midline, no obvious masses or gross abnormalities. CHEST: Symmetric movement, normal appearance. LUNGS: LS present and CTAB, no w/r/r. Non-labored work of breathing. CARDIAC: Regular Rhythm, S1/S2 appreciated, no murmurs, rubs or gallops. ABDOMEN: Abdomen soft x4 quadrants, positive tenderness to palpation of the left upper quadrant, negative rebound, no palpable masses or organomegaly. Negative CVAT bilaterally. : Deferred. EXTREMITIES: Normal tone, moves all extremities spontaneously without reported pain. No obvious acute injury or deformity noted. NEURO: Alert and oriented x3, CN II-XII appear grossly intact. Cerebellar Functioning grossly intact. No obvious sensory or motor deficits. Speech clear and appropriate. PSYCH: normal affect, appropriate eye contact, fluid speech, with appropriate response to questioning. No reported suicidality or homicidality. SKIN: Warm, dry, color appropriate, normal turgor. No rashes noted. Medical Decision Making Medical Decision Making MDM Narrative: 11:48 PM 12/15/2024 (Rick LA): The patient is a 59-year-old male with a history of schizophrenia, PTSD, cocaine use, housing insecurity, and previous upper GI bleed secondary to a gastric ulcer diagnosed 3 months ago by endoscopy, presenting to the ED for evaluation of increasing left upper quadrant abdominal pain with nausea and an associated episode of a solitary dark spot on formed otherwise brown stool approximately 5 hours prior to arrival in the ED. The patient denies associated hematochezia, vomiting, diarrhea, chest pain, shortness of breath, dizziness, near-syncope, syncope, recent sick contacts, or recent trauma. The patient reports he was supposed to follow up with GI for additional management after the colonoscopy but missed the appointment. The patient denies anticoagulation. On exam the patient has mild left upper quadrant abdominal tenderness, negative rebound, negative CVAT bilaterally. The patient appears in no acute distress, no hypotension or tachycardia. Laboratory evaluation reveals mild leukocytosis of 14.8, no evidence of anemia, chemistries pending. Patient will be treated with a GI cocktail for suspected gastritis, if no improvement in pain from GI cocktail the patient will be sent for CT abdomen and pelvis to evaluate for other possible causes of abdominal pain, in the setting of leukocytosis. 1:25 AM 12/16/2024 (Rick LA): The patient reports no resolution of his symptoms following GI cocktail. We will obtain CT abdomen and pelvis to rule out other acute intra-abdominal process. 2:37 AM 12/16/2024 (Rick LA): The patient's CT has resulted and shows severe stool burden with no evidence of obstruction, no other acute findings. This may be contributing to the patient's left-sided abdominal pain, there was no evidence/mention of stercoral colitis. We will treat with magnesium citrate, and reassess discomfort following bowel movement. 4:18 AM 12/16/2024 (Rick LA): Patient drank magnesium citrate, however states he does not have any urge to move his bowels at this time. Patient appears in no acute distress, resting comfortably, remains hemodynamically stable, no tachycardia or tachypnea. The patient will be discharged with MiraLax, Colace, and Pepcid. Patient states he is comfortable with this plan of care. Admission/Observation Consideration of admission/observation: Escalation of care including admission/observation considered Lab Data MDM Lab Attestation statement: I reviewed the patient's lab results. 12/15/24 23:22 12/15/24 23:22 Labs: Lab Results 12/15/24 Range/Units 23:22 WBC 14.8 H (4.8-10.8) X10*3/uL RBC 5.29 (4.60-5.80) X10*6/uL Hgb 14.2 (14.0-18.0) g/dl Hct 43.0 (42.0-52.0) % MCV 81.3 (80.0-98.0) fL MCH 26.8 L (27.0-33.0) pg MCHC 33.0 (31.0-36.0) g/dl RDW 13.9 (11.0-16.0) % Plt Count 315 (160-400) X10*3/uL MPV 9.4 (9.4-12.4) fL Immature Gran % (Auto) 0.5 H (0.0-0.4) % Neut % (Auto) 74.0 H (45-73) % Lymph % (Auto) 16.2 L (20-40) % [place] % (Auto) 8.7 (2-11) % Eos % (Auto) 0.3 (0-4) % Baso % (Auto) 0.3 (0-2) % Lymph # (Auto) 2.4 (1.2-4.9) X10*3/uL [place] # (Auto) 1.3 H (0.1-1.2) X10*3/uL Eos # (Auto) 0.0 (0.0-0.4) X10*3/uL Baso # (Auto) 0.0 (0.0-0.2) X10*3/uL Abs Immat Gran (auto) 0.07 H (0.00-0.03) X10*3/uL Absolute Neuts (auto) 11.0 H (2.0-8.3) x10*3/uL Absolute Nucleated RBC 0.000 (0.0-0.012) X10*3/uL Nucleated RBC % (auto) 0.0 (0.0-0.2) /100WBC Sodium 142 (135-145) mmol/L Potassium 4.3 (3.3-5.1) mmol/L Chloride 103 (96-108) mmol/L Carbon Dioxide 28 (22-29) mmol/L Anion Gap 15 (12-20) BUN 18 H (9-16) mg/dL Creatinine 1.18 (0.5-1.4) mg/dL Estim Creat Clear Calc 68.4 Estimated GFR > 60 Random Glucose 117 H (60-115) mg/dL Calcium 10.0 D (8.4-10.2) mg/dL Total Bilirubin 0.3 (0.0-1.0) mg/dL AST 34 (5-37) U/L ALT 36 (0-40) U/L Alkaline Phosphatase 91 (39-117) U/L Total Protein 8.5 H (6.5-8.0) g/dL Albumin 5.0 (3.5-5.0) g/dL Radiology Impression Discussion of test interpretation with radiology: I have reviewed the radiologist's reading. Radiologist Impression: CT abdomen and pelvis with contrast Comparison: CT of the abdomen and pelvis from 07/30/2024 Findings: Pulmonary opacities are nonspecific and may reflect pneumonitis of the imaged lung bases. Emphysematous changes also partially imaged. Mild mediastinal fluid and small pericardial effusion with borderline cardiomegaly in the [id number]. Fat deposition redemonstrated in the liver. Gallbladder is partly obscured and otherwise unremarkable. Mild adrenal hyperplasia noted. Mild volume loss of the pancreas noted. Mild/borderline splenomegaly. No hydronephrosis. No small bowel obstruction. Imaged appendix is mildly patulous measures at the upper limits of normal without findings of acute appendicitis at this time. Severe stool burden is present, including the cecum. Small retroperitoneal and mesenteric lymph nodes are nonspecific and may be reactive. Calcified and noncalcified plaque include imaged aorta and its branches. Prostate gland measures 4 cm transverse. Mild wall thickening of the urinary bladder is noted. Degenerative changes include the hips, SI joints, and spine. Mild/minimal vertebral height losses. Old/chronic. Facet arthropathy is multifocal. IMPRESSION: 1. Severe stool burden. No small bowel obstruction. 2. Mild pulmonary opacities concerning for pneumonitis of the imaged lung bases. Recommend attention on follow-up to ensure resolution. This document has been electronically signed by: Gautam Robles MD on 12/16/2024 02:27:29 External Record Review External record reviewed: Outpatient record and Prior outpatient labs Medications Administered Discontinued Medications Generic Name Dose Route Start Last Admin Trade Name Freq PRN Reason Stop Dose Admin Acetaminophen 975 mg 12/16/24 02:54 12/16/24 03:02 Acetaminophen 325 Mg Tablet PO 12/16/24 02:55 975 mg ONCE ONE Administration Al Hydroxide/Mg Hydroxide 30 ml 12/15/24 23:46 12/15/24 23:59 Magnesium Hydrox/Alum Hydrox 30 Ml Oral.Susp PO 12/15/24 23:47 30 ml ONCE ONE Administration Famotidine 20 mg 12/15/24 23:46 12/15/24 23:59 Famotidine 20 Mg Tablet PO 12/15/24 23:47 20 mg ONCE ONE Administration Ibuprofen 600 mg 12/16/24 02:54 12/16/24 03:03 Ibuprofen 600 Mg Tablet PO 12/16/24 02:55 600 mg ONCE ONE Administration Iohexol 100 ml 12/16/24 01:34 12/16/24 01:34 Iohexol 350 Mg/Ml 100 Ml Infus..Btl IV 12/16/24 01:35 85 ml ONCE ONE Administration Lidocaine HCl 15 ml 12/15/24 23:46 12/15/24 23:59 Lidocaine Hcl Viscous 2 % 15 Ml Solution PO 12/15/24 23:47 15 ml ONCE ONE Administration Magnesium Citrate 300 ml 12/16/24 02:36 12/16/24 02:50 Magnesium Citrate 300 Ml Solution PO 12/16/24 02:37 300 ml ONCE ONE Administration Omeprazole 20 mg 12/15/24 23:46 12/15/24 23:59 Omeprazole 20 Mg Capsule.Dr PO 12/15/24 23:47 20 mg ONCE ONE Administration Discharge Plan Discharge Clinical Impression: Constipation Qualifiers: Constipation type: unspecified constipation type Qualified Code(s): K59.00 - Constipation, unspecified Patient Disposition: Home, Self-Care Instructions: Constipation (ED), High Fiber Diet (ED) Additional Instructions: Thank you for choosing [facility]'s Emergency Department for your care today. Thankfully your laboratory evaluation, exam, and abdominal CT today are reassuring and show no evidence of an acute intra-abdominal process requiring surgical intervention, admission to the hospital, or continued ED observation, and it is safe to discharge you home. Your CT did show that you are suffering from significant constipation but thankfully no evidence of a bowel obstruction. We have treated you with magnesium citrate and are discharging you with MiraLax and Colace, please take both as directed. Please also take Pepcid in addition to your omeprazole to reduce any stomach inflammation from stomach acid which may be contributing to your symptoms. Please stay well hydrated and get plenty of rest. Please follow up with your primary care physician for re-evaluation, additional management of your symptoms, and continued preventative care. If you do not have a primary care physician, please call the [facility] at [phone] to establish a new primary care physician. While waiting to establish your new primary care physician, you can call our [facility] at [phone] for non-emergency needs. Please return to the emergency department if you develop a severe or sudden change in your symptoms, a fever over 100.4 that does not improve with Tylenol or Ibuprofen, recurrent vomiting, or any other new or worsening symptoms or concerns. Prescriptions: New famotidine [Pepcid] 20 mg tablet 20 mg PO BID Qty: 28 0RF polyethylene glycol 3350 [Miralax] 17 gram/dose powder 17 g PO DAILY Qty: 119 0RF docusate sodium [Colace] 100 mg capsule 100 mg PO DAILY Qty: 14 0RF No Action insulin lispro [Admelog U-100 Insulin lispro] 100 unit/mL Solution See Protocol subcut QIDACHS 30 Days Qty: 10 0RF Protocol: Insulin Correction Scale Less than or equal to 110 ---- Give (units): 0 111 to 150 Give (units): 0 151 to 200 Give (units): 2 201 to 250 Give (units): 4 251 to 300 Give (units): 6 301 to 350 Give (units): 8 Greater than 350 Give (units): 10 Call MD if Blood Glucose > : 350 Januvia 100 mg tablet 100 mg PO DAILY 30 Days Qty: 30 0RF metformin 1,000 mg tablet 1,000 mg PO BID melatonin 10 mg tablet 10 mg PO BEDTIME aspirin 81 mg tablet,delayed release (DR/EC) 81 mg PO DAILY quetiapine 50 mg tablet 50 mg PO BID PRN (Reason: AGITATION/RACING THOUGHTS) quetiapine 400 mg tablet 400 mg PO DAILY@1700 gabapentin 300 mg capsule 300 mg PO TID PRN (Reason: neuropathy) albuterol sulfate 90 mcg/actuation HFA aerosol inhaler 2 puff INHALATION QID PRN (Reason: wheezing) trazodone 50 mg tablet 50 mg PO BEDTIME PRN (Reason: Sleep) atorvastatin 40 mg tablet 20 mg PO DAILY paroxetine HCl 20 mg Tablet 40 mg PO DAILY hydroxyzine pamoate 50 mg capsule 50 mg PO BID PRN (Reason: Anxiety) cyclobenzaprine 10 mg tablet 10 mg PO BID PRN (Reason: Muscle Spasm) naproxen 375 mg tablet 375 mg PO BID ondansetron 4 mg tablet,disintegrating 4 mg PO Q8H PRN (Reason: Nausea And Vomiting) acetaminophen 500 mg tablet 1,000 mg PO Q6H PRN (Reason: mild pain) pantoprazole 40 mg tablet,delayed release (DR/EC) 40 mg PO BID ibuprofen 200 mg tablet 400 mg PO Q6H PRN (Reason: fever) docusate sodium 100 mg capsule 100 mg PO Q12H insulin glargine [Lantus U-100 Insulin] 100 unit/mL solution 15 unit subcut BEDTIME omeprazole 20 mg capsule,delayed release(DR/EC) 20 mg PO DAILY Qty: 30 0RF polyethylene glycol 3350 [Miralax] 17 gram/dose powder See Rx Instructions .ROUTE .COMPLEX Qty: 119 0RF Rx Instructions: 17 g orally per instructions in your discharge paperwork. sucralfate [Carafate] 100 mg/mL suspension 10 ml PO QID PRN (Reason: indigestion) Qty: 300 0RF Rx Instructions: swish in mouth and swallow; use after food/drink Referrals: Yoel Parrish MD [Primary Care Provider, Internal Medicine] Clinical Impression: Constipation Print Language: Tuvaluan
[2024-12-15 23:42] VITALS: BP 133/79; PULSE 94; RESP 18; TEMP 36.5; O2SAT 97
[2024-12-15 23:54] LABS: Alanine Aminotransferase 36 U/L (0-40); Albumin Level 5.0 g/dL (3.5-5.0); Alkaline Phosphatase 91 U/L (39-117); Anion Gap 15 (12-20); Aspartate Amino Transferase 34 U/L (5-37); Blood Urea Nitrogen 18 mg/dL (9-16); Calcium 10.0 mg/dL (8.4-10.2); Carbon Dioxide 28 mmol/L (22-29); Chloride 103 mmol/L (96-108); Creatinine Clr Calc Pharmacy 68.4; Estimated Glomerular Filt Rate > 60; Potassium 4.3 mmol/L (3.3-5.1); Sodium 142 mmol/L (135-145); Total Protein 8.5 g/dL (6.5-8.0)
[2024-12-15] MEDS: Magnesium Hydrox/Alum Hydrox 30 ML ORAL.SUSP PO (23:59)
[2024-12-15] MEDS: Lidocaine HCl Viscous 2 % 15 ML SOLUTION PO (23:59)
--- OUTSIDE RECORDS SUMMARY | 2024-12-16 00:06 | XMS_ITS | Clinical Summary ---
Author Organization [facility] Address [address] [place] [phone] Phone Care Team Providers Care Cargo Broker Name Role Phone Pcp, Unknown Primary Care [...] Suicidal ideations 07/16/2024 Mental health problem 07/06/2024 Social History Tobacco Use Types Packs/Day Years [...] VACCINE (#1) 2024 COVID-19 VACCINE (1 - 2025-26 season) 2024 HEMOGLOBIN A1C 02/25/2025 08/26/2024, 08/05/2024 [...] Date/Time Associated Diagnosis Comments BASIC METABOLIC PANEL STAT 09/04/2024 4:28 AM EDT from Last 3 Months or Most Recently Relevant to Health Maintenance Results * (ABNORMAL) Basic metabolic panel (09/04/2024 4:28 AM EDT) SODIUM 134 133 - 146 mmol/L [facility] CHLORIDE 99 96 - 108 mmol/L [facility] POTASSIUM 4.2 3.3 - 5.1 mmol/L [facility] CO2 23 21 - 35 mmol/L [facility] BUN 27(H) 6 - 19 mg/dL [facility] CREATININE 1.20 0.5 - 1.5 mg/dL [facility] GLUCOSE 329(H) 70 - 99 mg/dL [facility] CALCIUM 9.2 8.4 - 10.3 mg/dL [facility] EGFR 70 >59 mL/min/1.7 3m2 [facility] Comment:Estimated glomerular filtration rate calculated using the CKD-EPI refit equation. ANION GAP 16 10 - 20 mmol/L [facility] Blood 09/04/2024 4:28 AM EDT 09/04/2024 4:30 AM EDT us Brenda Sofia MD LAB BLOOD ORDERABLES Final R esult [address] [id number] from Last 3 Months or Most Recently Relevant to Health Maintenance Insurance MEDICARE REPLACEMENT MEDICARE REPLACEMENT MEDICARE REPLACEMENT MEDICARE REPLACEMENT MEDICARE REPLACEMENT MEDICARE REPLACEMENT Care Teams Cargo Broker Relationship Specialty Start Date End Date Pcp, Unknown PCP - General 07/16/24 Additional Source Comments The information contained in this document represents components of the legal health record. It is not the complete legal health record.[facility]
--- OUTSIDE RECORDS SUMMARY | 2024-12-16 00:06 | XMS_ITS | Encounter Summary ---
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 For example, child protection specialist or elderly care for an older [...] 10:39 PM EDT Hannah Burnham RN * [place] Suicide Severity Rating Scale (Screener/Recent Self-Report) Question [...] PANEL Routine 08/29/2024 7:00 AM EDT Other prison (current) drug therapy documented in this encounter Results * (ABNORMAL) Basic metabolic panel (08/29/2024 7:00 AM EDT) [facility] Sodium 138 133 - 145 mmol/L LAB CHEMISTRY METHOD 08/29/2024 11:26 AM T [facility] Potassium 4.4 3.5 - 5.5 mmol/L LAB CHEMISTRY METHOD 08/29/2024 11:26 AM T [facility] Chloride 104 96 - 110 mmol/L LAB CHEMISTRY METHOD 08/29/2024 11:26 AM T [facility] CO2 28 21 - 32 mmol/L LAB CHEMISTRY METHOD 08/29/2024 11:26 AM [facility] Anion Gap 6 3 - 11 LAB CHEMISTRY METHOD 08/29/2024 11:26 AM [facility] Glucose 175(H) 70 - 100 mg/dL LAB CHEMISTRY METHOD 08/29/2024 11:26 AM [facility] BUN 19 5 - 25 mg/dL LAB CHEMISTRY METHOD 08/29/2024 11:26 AM [facility] Creatinine 1.06 0.70 - 1.30 mg/dL LAB CHEMISTRY METHOD 08/29/2024 11:26 AM [facility] eGFR 81 >=60 mL/min/1. 73m2 LAB CHEMISTRY METHOD 08/29/2024 11:26 AM [facility] Comment:Calculation based on the Chronic Kidney Disease Epidemiology Collaboration (CKD-EPI) equation refit without adjustment for race. BUN/Creatinine Ratio 17.9 LAB CHEMISTRY METHOD 08/29/2024 11:26 AM [facility] Calcium 8.7 8.5 - 10.5 mg/dL LAB CHEMISTRY METHOD 08/29/2024 11:26 AM [facility] Blood Venous blood specimen / Unknown Venipuncture / Unknown 08/29/2024 7:00 AM EDT 08/29/2024 10:10 AM EDT [facility] LAB BLOOD ORDERABLES Final Resul t [facility] [address] [place] [address], documented in this encounter Visit Diagnoses Diagnosis Other prison (current) drug therapy documented in this encounter Care Teams Quality Head Relationship Specialty Start Date End Date Yoel Parrish MD [address] [place] [id number] PCP - General Internal Medicine 01/27/24 documented as of this encounter
--- OUTSIDE RECORDS SUMMARY | 2024-12-16 00:06 | XMS_ITS | Clinical Summary ---
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 30-JUN-2024 04:25, No significant change was found Confirmed by DAGO KAPLAN ([id number]) on 10/04/2024 4:10:05 PM GEMUSE 10/04/2024 12:1 0 AM EDT 10/04/2024 4:10 PM EDT us Pilar Landeros MD ECG ORDERABLES Final Result [...] Mondragon MD on 09/29/2024 01:37:39 Lory Silva PROCUREMENT INSPECTOR IMG CT PROCEDURES Final R esult from Last 3 Months Insurance MEDICARE Member Subscriber Plan / Payer (Ef fective 2024-Present) Name:ANDREAS MEDRANO Relation to Subscriber:Self Name:Andreas Medrano Payer ID:[id number] Group ID:[id number] Type:Not on file Address: [place] [facility] ABHINAV ZAMAN [id number] [address] Maintenance Technician Relationship Specialty Start Date End Date Yoel Parrish MD [address] [place] [phone] PCP - General Internal Medicine 01/27/24
--- OUTSIDE RECORDS SUMMARY | 2024-12-16 00:06 | XMS_ITS | Encounter Summary ---
Author Organization [employer] Address [address] [place] [address] Care Team Providers Care Livestock Farmers Name Role Phone Yoel Parrish MD Primary Care Provider [phone] [phone] Encounter Details Date Type Department Care Team (Late st Contact Info) Description 08/29/2024 Lab Requisition [facility] - Main Lab [address] [facility] [place] [address] [facility] [address] [place] [address] [phone] Social History Tobacco Use Types Packs/Day Years [...] care for your loved ones. For example, director child or elderly care for an older adult? [...] 10:39 PM EDT Hannah Burnham RN * [place] Suicide Severity Rating Scale (Screener/Recent Self-Report) Question [...] on filedocumented in this encounter Care Teams Livestock Farmers Relationship Specialty Start Date End Date Yoel Parrish MD [address] [place] [phone] PCP - General Internal Medicine 01/27/24 documented as of this encounter
--- OUTSIDE RECORDS SUMMARY | 2024-12-16 00:06 | XMS_ITS | Encounter Summary ---
Author Organization [employer] Address [address] [place] [address] Care Team Providers Care Program Development Specialist Name Role Phone Yoel Parrish MD Primary Care Provider [phone] [phone] Encounter Details Date Type Department Care Team (Late st Contact Info) Description 08/26/[address] [facility] - Main Lab [address] [facility] [place] [address] [facility] [address] [place] [address] [phone] Social History Tobacco Use Types Packs/Day Years [...] for your loved ones. For example, child abuse worker or elderly care for an older [...] on filedocumented in this encounter Care Teams Program Development Specialist Relationship Specialty Start Date End Date Yoel Parrish MD [address] [place] [phone] PCP - General Internal Medicine 01/27/24 documented as of this encounter
--- OUTSIDE RECORDS SUMMARY | 2024-12-16 00:06 | XMS_ITS ---
Author Organization [facility] Address [address] [place] [phone] Phone Care Team Providers Care Site Head Name Role Phone Yoel Parrish MD Primary Care Provider +1 -[phone] [facility] - Food Insecurity Status:Ongoing (Active) Start date:04/11/2024 Enrollment date:04/11/2024 Enrollment reason:Walk-in Related social drivers of health:Food Risk Related program episode:Community Health Worker Program (Closed) Overview Community Health Worker Program - Food Insecurity Service Episode Case Team Name Relationship Phone Vu Chicas(Responsible Staff) Community He alth Worker Continued Care and Services Coordination
--- OUTSIDE RECORDS SUMMARY | 2024-12-16 00:06 | XMS_ITS | Encounter Summary ---
Author Organization [facility] [facility] Address [address] [place] [address] Care Team Providers Care Sliver Former Name Role Phone Yoel Parrish MD Primary Care Provider [phone] [phone] Encounter Details Date Type Department Care Team (Late st Contact Info) Description 11/23/2024 Lab Requisition [facility] - Main Lab 299 [facility] [place] [address] Ally Gibson NP [address] [place] [address] Other extermination supervisor (current) drug therapy Social History Tobacco Use [...] care for your loved ones. For example, special needs child caregiver or elderly care for an older adult? [...] LDL Routine 11/23/2024 7:00 AM EDT Other extermination supervisor (current) drug therapy HEMOGLOBIN A1C Routine 11/23/2024 7:00 AM EDT Other extermination supervisor (current) drug therapy GLUCOSE, RANDOM Routine 11/23/2024 7:00 AM EDT Other extermination supervisor (current) drug therapy documented in this encounter Results * (ABNORMAL) Hemoglobin A1c (11/23/2024 7:00 AM EDT) Pathologist [facility] Hemoglobin A1C 8.5(H) <6.5 % LAB CHEMISTRY METHOD 11/23/2024 12:17 PM EDT [facility] Mean Bld Glu Estim. 197 mg/dL LAB CHEMISTRY METHOD 11/23/2024 12:17 PM EDT [facility] Blood Venous blood specimen / Unknown Venipuncture / Unknown 11/23/2024 7:00 AM EDT 11/23/2024 10:28 AM EDT us Ally Gibson NP LAB BLOOD ORDERABLES Final Resul t [facility] [address] [place] [address], * (ABNORMAL) Glucose, random (11/23/2024 7:00 AM EDT) Glucose 216(H) 70 - 100 mg/dL LAB CHEMISTRY METHOD 11/23/2024 12:02 PM T [facility] Blood Venous blood specimen / Unknown Venipuncture / Unknown 11/23/2024 7:00 AM EDT 11/23/2024 10:28 AM EDT Ally Gibson NP LAB BLOOD ORDERABLES Final Resul t [facility] [address] [place] [address], [place] [phone] * (ABNORMAL) Lipid panel with reflex to direct LDL (11/23/2024 7:00 AM EDT) Cholesterol 160 0 - 200 mg/dL LAB CHEMISTRY METHOD 11/23/2024 12:02 PM [facility] Triglycerides 211(H) 0 - 150 mg/dL LAB CHEMISTRY METHOD 11/23/2024 12:02 PM [facility] HDL 38(L) >=40 mg/dL LAB CHEMISTRY METHOD 11/23/2024 12:02 PM [facility] LDL Calculated 80 0 - 100 mg/dL LAB CHEMISTRY METHOD 11/23/2024 12:02 PM [facility] Comment:Estimated LDL Calcul ated using equation: Total cholesterol - HDL cholesterol - (Triglycerides/5) VLDL Cholesterol Hong 42.2 mg/dL LAB CHEMISTRY METHOD 11/23/2024 12:02 PM [facility] Non HDL Chol. (LDL+VLDL) 122 <145 mg/dL LAB CHEMISTRY METHOD 11/23/2024 12:02 PM [facility] Chol/HDL Ratio 4.2 0.0 - 4.4 LAB CHEMISTRY METHOD 11/23/2024 12:02 PM [facility] Blood Venous blood specimen / Unknown Venipuncture / Unknown 11/23/2024 7:00 AM EDT 11/23/2024 10:28 AM EDT us Ally Gibson UPPER MARKER LAB BLOOD ORDERABLES Final Resul t [facility] [address] [place] [address], documented in this encounter Visit Diagnoses Diagnosis Other penitentiary (current) drug therapy documented in this encounter Care Teams Sliver Former Relationship Specialty Start Date End Date Yoel Parrish MD [address] [place] [phone] PCP - General Internal Medicine 01/27/24 documented as of this encounter
--- OUTSIDE RECORDS SUMMARY | 2024-12-16 00:06 | XMS_ITS | Encounter Summary ---
Author Organization [employer] Address [address] [place] [address] Care Team Providers Care Solo Musician Name Role Phone Yoel Parrish MD Primary Care Provider [phone] [phone] Encounter Details Date Type Department Care Team (Late st Contact Info) Description 11/23/2024 Lab Requisition [facility] - Main Lab [address] [facility] [place] [address] Ally Gibson NP [address] [place] [address] Social History Tobacco Use Types Packs/Day [...] on filedocumented in this encounter Care Teams Solo Musician Relationship Specialty Start Date End Date Yoel Parrish MD [address] [place] [phone] PCP - General Internal Medicine 01/27/24 documented as of this encounter
--- OUTSIDE RECORDS SUMMARY | 2024-12-16 00:06 | XMS_ITS | Encounter Summary ---
Author Organization [employer] Address [address] [place] [address] Care Team Providers Care Staff Nurse Midwife Name Role Phone Yoel Parrish MD Primary Care Provider [phone] [phone] Encounter Details Date Type Department Care Team (Late st Contact Info) Description 08/26/2024 Lab Requisition [facility] - Main Lab [address] [facility] [place] [address] 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 197 mg/dL LAB CHEMISTRY METHOD 08/26/2024 2:31 PM EDT [facility] Blood Venous blood specimen / Unknown Venipuncture / Unknown 08/26/2024 7:00 AM EDT 08/26/2024 11:03 AM EDT [facility]OD [facility] Final Resul t [facility] [address] [place] [address], documented in this encounter Visit Diagnoses Diagnosis Other termite control service representative (current) drug therapy documented in this encounter Care Teams Staff Nurse Midwife Relationship Specialty Start Date End Date Yoel Parrish [facility] [place] [phone] PCP - General Internal Medicine 01/27/24 documented as of this encounter
--- OUTSIDE RECORDS SUMMARY | 2024-12-16 00:06 | XMS_ITS ---
Author Organization [facility] Address [address] [place] [phone] Phone Care Team Providers Care Candy Feeder Name Role Phone Yoel Parrish MD Primary Care Provider +1 [phone] [facility] - Housing Status:Ongoing (Active) Start date:04/11/2024 Enrollment date:04/11/2024 Enrollment reason:Walk-in Related social drivers of health:Housing Instability Related program episode:Community Health Worker Program (Closed) Overview Housing service of Community Health Worker Program Case Team Name Relationship Phone Vu Chicas(Responsible Staff) Community He alth Worker Continued Care and Services Coordination
--- OUTSIDE RECORDS SUMMARY | 2024-12-16 00:06 | XMS_ITS | Encounter Summary ---
Author Organization [employer] Address [address] [place] [address] Care Team Providers Care Solid Waste Technician Name Role Phone Yoel Parrish MD Primary Care Provider [phone] [phone] Encounter Details Date Type Department Care Team (Late st Contact Info) Description 08/05/2024 Lab Requisition [facility] - Main Lab 299 [facility] [place] [address] Annie Barraza, BEHAVIORAL HEALTH SPECIALIST [address] [place] [address] Other technician terminal and repeater (current) drug therapy Social History Tobacco Use [...] your loved ones. For example, early childhood assistant or elderly care for an older [...] LDL Routine 08/05/2024 7:00 AM EDT Other group home (current) drug therapy HEMOGLOBIN A1C Routine 08/05/2024 7:00 AM EDT Other group home (current) drug therapy documented in this encounter Results * (ABNORMAL) Hemoglobin A1c (08/05/2024 7:00 AM EDT) Hemoglobin A1C 8.4(H) <6.5 % LAB CHEMISTRY METHOD 08/05/2024 1:51 PM EDT [facility] Mean Bld Glu Estim. 194 mg/dL LAB CHEMISTRY METHOD 08/05/2024 1:51 PM EDT [facility] Blood Venous blood specimen / Unknown Venipuncture / Unknown 08/05/2024 7:00 AM EDT 08/05/2024 9:58 AM EDT us Annie Barraza BEHAVIORAL HEALTH SPECIALIST LAB BLOOD ORDERABLES Final Re sult [facility] [address] [place] [address], [place] [phone] * (ABNORMAL) Lipid panel with reflex to direct LDL (08/05/2024 7:00 AM EDT) Cholesterol 181 0 - 200 mg/dL LAB CHEMISTRY METHOD 08/05/2024 11:26 AM EDT [facility] Triglycerides 306(H) 0 - 150 mg/dL LAB CHEMISTRY METHOD 08/05/2024 11:26 AM [facility] HDL 26(L) >=40 mg/dL LAB CHEMISTRY METHOD 08/05/2024 11:26 AM [facility] LDL Calculated 94 0 - 100 mg/dL LAB CHEMISTRY METHOD 08/05/2024 11:26 AM EDT [facility] VLDL Cholesterol Hong 61.2 mg/dL LAB CHEMISTRY METHOD 08/05/2024 11:26 AM [facility] Non HDL Chol. (LDL+VLDL) 155(H) <145 mg/dL LAB CHEMISTRY METHOD 08/05/2024 11:26 AM [facility] Chol/HDL Ratio 7.0(H) 0.0 - 4.4 LAB CHEMISTRY METHOD 08/05/2024 11:26 AM [facility] Blood Venous blood specimen / Unknown Venipuncture / Unknown 08/05/2024 7:00 AM EDT 08/05/2024 9:58 AM EDT us Annie Barraza BEHAVIORAL HEALTH SPECIALIST LAB BLOOD ORDERABLES Final Re sult [facility] [address] [place] [address], documented in this encounter Visit Diagnoses Diagnosis Other group home (current) drug therapy documented in this encounter Care Teams Solid Waste Technician Relationship Specialty Start Date End Date Yoel Parrish MD [address] [place] [phone] PCP - General Internal Medicine 01/27/24 documented as of this encounter
--- OUTSIDE RECORDS SUMMARY | 2024-12-16 00:06 | XMS_ITS ---
Author Organization [facility] Address [address] [place] [phone] Phone Care Team Providers Care Movie Projectionist Name Role Phone Yoel Parrish MD Primary Care Provider +1 -[phone] [facility] - Behavioral Health Status:Ongoing (Active) Start date:04/11/2024 Enrollment date:04/11/2024 Enrollment reason:Walk-in Related program episode:Community Health Worker Program (Closed) Overview Behavior Health service of Community Health Worker Program Case Team Name Relationship Phone Vu Chicas(Responsible Staff) Community He alth Worker Continued Care and Services Coordination
[2024-12-16] MEDS: iohexoL 350 MG/ML 100 ML INFUS..BTL IV (01:34)
[2024-12-16 02:53] VITALS: BP 139/82; PULSE 74; RESP 16; O2SAT 96
[2024-12-16 04:00] VITALS: BP 146/76; PULSE 81; RESP 18; TEMP 36.6; O2SAT 96
[2024-12-16 04:19] VITALS: BP 134/82; PULSE 86; RESP 17; TEMP 36.5; O2SAT 97
[2024-12-16 04:45] VITALS: BP 134/82; PULSE 86; RESP 17; TEMP 36.5; O2SAT 97
== END 2024-12-16 04:46 | disposition home or self-care (01) ==
PROVIDERS: Emergency Provider Emergency Medicine; PCP Internal Medicine
DX: K59.00 Constipation, unspecified (principal); R10.12 Left upper quadrant pain; R11.0 Nausea; E11.9 Type 2 diabetes mellitus without complications; Z79.4 Long term (current) use of insulin; Z79.899 Other long term (current) drug therapy; F17.210 Nicotine dependence, cigarettes, uncomplicated
CPT/HCPCS: 36415; 74177; 80053; 85025; 99284; 99285; Q9967

== ENCOUNTER → 2024-12-16 01:19 | Outpatient (BNV) | payer OTHER, SELFPAY | PROVIDERS: Emergency Provider Emergency Medicine; PCP Internal Medicine; Visit Provider Radiology Neuroradiology | DX: R91.8 Other nonspecific abnormal finding of lung field (principal) | CPT/HCPCS: 74177 ==

== ENCOUNTER 2024-12-18 19:55 | Emergency (ER) | payer OTHER, SELFPAY ==
--- OUTSIDE RECORDS SUMMARY | 2024-12-17 22:36 | XMS_ITS | Encounter Summary ---
Author Organization [employer] Address [address] [place] [address] Care Team Providers Care Blood Bank Technologist Name Role Phone Yoel Parrish MD Primary Care Provider [phone] Reason for Visit * Reason Comments Suicidal Encounter Details Date Type Department Care Team ([facility] st Contact Info) Description 12/17/2024 10:36 PM EDT - 12/18/2024 9:51 AM EDT Emergency [facility] Emergency [address] [place] [address] Pilar Landeros MD [address] [place] [address] Jason Saenz MD [address] [place] [address] Suicidal ideation (Primary Dx) Discharge Disposition: Home or Self [...] your loved ones. For example, child and family services specialist or elderly care for an older [...] Sign Reading Time Taken Comments Blood Pressure 142/94 12/18/2024 8:15 AM EDT Pulse 88 12/18/2024 8:15 AM EDT Temperature 37 C (98.6 F) 12/18/2024 8:15 AM EDT Respiratory Rate 17 12/18/2024 8:15 AM EDT Oxygen Saturation 98% 12/18/2024 8:15 AM EDT Inhaled Oxygen Concentration - - Weight 79.4 kg (175 lb) 12/17/2024 10:53 PM EDT Height 167.6 cm (5' 6 ) 12/17/2024 10:53 PM EDT Body Mass Index 28.25 12/17/2024 10:53 PM EDT documented in this encounter Functional Status * Are you deaf or do you have serious difficulty hearing? Answer Date of Assessment Author No 11/20/2024 8:51 PM EDT Viji Oakes RN * Are you blind [...] 8:51 PM AUTUMNT Viji Oakes RN * Because of a physical, mental, or emotional condition, do you have serious difficulty doing errandsalone such as visiting the doctor? Answer Date of Assessment Author No 11/20/2024 8:51 PM Viji Licona RN * Calculated C-SSRS Risk Score (Lifetime/Recent) Answer Date of Assessment Author Moderate Risk 12/18/2024 8:32 AM August Ko RN * [place] Suicide Severity Rating Scale (Screener/Recent Self-Report) Question Answer Date of Assessment Author 1. Wish to be (Past 1 Month) No 025 8:32 AM Janine Ko RN 2. Non-Specific Active Suici sandy Thoughts (Past 1 Month) No 12/18/2024 8:32 AM Janine Ko RN 3. Active Suicidal Ideation with any Methods (Not Plan) Without Intent to Act (Past 1 Month) No 12/18/2024 8:32 AM Janine Ko RN 4. Active Suicidal Ideation with Some Intent to Act, Without Specific Plan (Past 1 Month) No 12/18/2024 8:32 AM Janine Ko RN 5. Active Suicidal Ideation with Specific Plan and Intent (Past 1 Month) No 12/18/2024 8:32 AM Janine Ko RN 6. Suicidal Behavior (Lifetime) Yes 8:32 AM Janine Ko RN 6. Suicidal Behavior (3 Months) No 8:32 AM Janine Ko RN documented as of this encounter Mental Status * Because of a physical, mental, or emotional condition, do you have serious difficulty concentrating, remembering, or making decisions? (5 years old or older) Answer Entry Date Author No 11/20/2024 8:51 PM Viji Licona RN documented in this encounter Discharge Instructions * Attachments The following attachments cannot be sent through Care Everywhere. * Mental Health Crisis: Getting Help: General Info ([place]ayan) * Suicidal Thoughts ([place]ayan) documented in this encounter Medications at Time of Discharge PARoxetine (PAXIL) 40 mg tablet Take 1 tablet (40 mg total) by mouth 1 (one) time each day. 11/29/2024 albuterol HFA (PROAIR HFA ; PROVENTIL HFA [...] (one) time each day before breakfast. 09/09/2024 QUEtiapine (SEROquel) 400 mg tablet Take 1 [...] Means Destination Comment s Home or Self Senior Care documented in this encounter Progress Notes * Laquita Diaz RN - 12/17/2024 10:16 PM EDT Presents stating he is SI with a plan to cut himself. States he started with these feelings 2 hoursago. Denies any drug or alcohol use. Increased anxiety and depression * Pilar Landeros MD - 12/17/2024 10:15 PM EDT EMERGENCY DEPARTMENT Provider Note Room: / Patient: Andreas Jolly Conway PCP: Yoel Parrish MD Patient : 1965 Patient Department: [facility] EM[facility]GENCY [address] [facility] [id number] Dept: [phone] Triage Chief Complaint: Suicidal History of Present Illness: 59-year-old male well-known to our department, history of bipolar, anxiety/depression, diabetes andhypertension presenting to the emergency department with suicidal ideation. Patient reports today he had thoughts of wanting to slit his throat and cut himself. When asked if patient reach out to anyone for help while at home and having these thoughts, he said no. I asked what coping mechanisms he tried to utilize and he said none, I was told any, have these thoughts and need to come to the emergency room. Denies any homicidal ideation, auditory or visual hallucinations. Denies any alcohol or drug use. Says he smokes a lot of cigarettes. ED Course / Medications given / MDM: 59-year-old male presenting with suicidal ideation. Frequently has thoughts of wanting to slit his own throat. No evidence of self-harm on my exam. Mild hyperglycemia, otherwise no significant labs. Patient medically cleared for crisis evaluation. ED Course as of 12/18/24 0736 Sun Dec 18, 2024 0619 On multiple evaluations, patient is either in bed or standing next to bed talking to himself. Security reports he has not slept all night. He is in no distress, does not appear to be responding to stimuli, has just been speaking to himself nonstop. [EK] 0650 Patient requesting his morning anxiety medication, paroxetine and hydroxyzine. This was ordered. Will avoid giving Zyprexa for his somewhat manic behavior as he will likely undergo crisis evaluation soon. [EK] 0651 Patient's care handed over to the oncoming provider. 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 so he is talkinghis lyrics outloud [EK] ED Course User Index [EK] Pilar Landeros MD Clinical Impressions as of 12/18/24 0736 Suicidal ideation Medications dextrose 15 gram/60 mL oral solution 15 g (has no administration in time range) dextrose 15 gram/60 mL oral solution 30 g (has no administration in time range) dextrose (D50W) 50% injection 12.5 g (has no administration in time range) dextrose (D50W) 50% injection 25 g (has no administration in time range) glucagon HCL injection 1 mg (has no administration in time range) insulin lispro injection 2-12 Units (has no administration in time range) PARoxetine (PAXIL) tablet 40 mg (40 mg oral Given 12/18/24 0733) hydrOXYzine pamoate (VISTARIL) capsule 50 mg (50 mg oral Given 12/18/24 0649) Clinical Impression(s): Final diagnoses: [R45.851] Suicidal ideation Disposition: Send to Specialty Department Physical Examination: Temp: 36.7 ??C (98.1 ??F) BP: (!) 147/81 Heart Rate: 89 Resp: 16 SpO2: 100 % Nursing notes and vitals reviewed. Constitutional: Well-developed, well-nourished, and in no distress. Head: Normocephalic and atraumatic. Eyes: Conjunctivae and EOM are normal. Neck: Normal range of motion. No tracheal deviation present. Cardiovascular: Normal rate, extremities warm and well-perfused. Pulmonary/Chest: Effort normal. No respiratory distress. Abdominal: Soft. No distension. No abdominal tenderness to palpation. No rebound or guarding. Musculoskeletal: Normal range of motion. No deformity. Calves symmetric, soft, nontender to palpation. Neurological: Alert. GCS 15. Skin: Warm and dry. No evidence of recent self-harm on arms or legs. Psych: Endorses SI, denies HI, A/V hallucinations. Calm and cooperative. Lab & Imaging Results: Encounter Date: 10/03/24 ECG 12 lead Result Value Ventricular Rate ECG 95 Atrial Rate 95 P-R Interval 136 QRS Duration 88 Q-T Interval 368 QTc 462 P Wave Ten[place] 46 R Tenaha 56 T Tenaha 21 ECG Interpretation Normal sinus rhythm Normal ECG When compared with ECG of 30-JUN-2024 04:25, No significant change was found Confirmed by DAGO KAPLAN ([id number]) on 10/04/2024 4:10:05 PM *Note: Due to a large number of results and/or encounters for the requested time period, some results have not been displayed. A complete set of results can be found in Results Review. If an EKG was performed on today's visit and is documented above I independently interpreted/read the EKG as noted above at the time of service as above. Labs Reviewed COMPREHENSIVE METABOLIC PANEL - Abnormal Result Value Sodium 136 Potassium 4.1 Chloride 100 CO2 29 Anion Gap 7 Glucose 213 (*) BUN 27 (*) Creatinine 1.29 eGFR 64 BUN/Creatinine Ratio 20.9 Calcium 9.3 AST (SGOT) 29 ALT (SGPT) 36 Alkaline Phosphatase 94 Total Protein 7.7 Albumin 4.0 Total Bilirubin 0.3 ACETAMINOPHEN LEVEL - Abnormal Acetaminophen Level <2.0 (*) SALICYLATE LEVEL - Abnormal Salicylate Level <1.7 (*) CBC WITH AUTO DIFFERENTIAL - Abnormal WBC 11.0 (*) RBC 5.00 Hemoglobin 13.2 (*) Hematocrit 41.9 (*) MCV 84.3 MCH 26.6 (*) MCHC 31.5 (*) RDW 14.4 Platelets 309 MPV 10.1 NRBC 0.0 NRBC Absolute 0.00 Neutrophils Relative 68.7 Lymphocytes Relative 20.6 Monocytes Relative 8.8 Eosinophils Relative 1.0 Basophils Relative 0.5 Immature Granulocytes Relative 0.4 Neutrophils Absolute 7.56 (*) Lymphocytes Absolute 2.26 Monocytes Absolute 0.97 Eosinophils Absolute 0.11 Basophils Absolute 0.05 Immature Granulocytes Absolute 0.04 (*) ETHANOL - Normal Ethanol Level <3 DRUG ABUSE SCREEN 8A PANEL, URINE - [...] Procedure Abnormality Status --------- ------ CBC auto differential[[id number]] Abnormal Final result Please view results for these tests on the individual orders. POC GLUCOSE No orders to display I personally reviewed the patient's images and agree with radiologist interpretation unless otherwise noted here or in ED course or MDM section Procedures: Procedures Previous Medications ALBUTEROL HFA (PROAIR HFA ; [...] ifneeded for muscle spasms for up to 14 days. GABAPENTIN (NEURONTIN) 300 MG CAPSULE Take 1 [...] 350-399= 10 units Greater than 400 notify LANCETS LANCETS Use as instructed MELATONIN 10 MG TABLET Take 1 tablet (10 mg total) by mouth at bedtime as needed for sleep. at bedtime METFORMIN (FORTAMET) 1,000 MG 24 HR TABLET Take 1 tablet (1,000 mg total) by mouth 1 (one) time each day with dinner. Do not crush, chew, or split. MIRTAZAPINE (REMERON) 15 MG TABLET Take 1 tablet (15 mg total) by mouth at bedtime. NICOTINE POLACRILEX (NICORETTE) [address] 1 each (2 mg total) into mouth between cheek and gumevery 2 (two) hours if needed. PANTOPRAZOLE (PROTONIX) 40 MG EC TABLET Take 1 tablet (40 mg total) by mouth 1 (one) time each day before breakfast. PAROXETINE (PAXIL) 40 MG TABLET Take 1 tablet (40 mg total) by mouth 1 (one) time each day. QUETIAPINE (SEROQUEL) 400 MG TABLET Take 1 tablet (400 mg total) by mouth at bedtime. QUETIAPINE 150 MG TABLET Take 150 mg by mouth 1 (one) time each day. SITAGLIPTIN PHOSPHATE (JANUVIA) 100 MG TABLET Take 1 tablet (100 mg total) by mouth 1 (one) time each day. TRAZODONE (DESYREL) 50 MG TABLET Take by mouth at bedtime as needed. Allergies: Oxycodone and Glipizide Medical History[1] Surgical History[2] Social History[3] Pilar Landeros MD 12/17/24 3777 Pilar Landeros MD 12/18/24 0255 Pilar Landeros MD 12/18/24 0651 Pilar Landeros MD 12/18/24 0736 [1] Past Medical History: Diagnosis Date ??? Arthritis ??? Bipolar 2 disorder (CMS/HCC V24, CMS/HCC V28) ??? Depression ??? Diabetes mellitus (CMS/HCC V24, CMS/HCC V28) ??? Hypertension [2] History reviewed. No pertinent surgical history. [3] Social History Tobacco Use ??? Smoking status: Every Day Types: Cigarettes ??? Smokeless tobacco: Never Substance Use Topics ??? Alcohol use: Not Currently ??? Drug use: Never documented in this encounter Consult Notes * Cyndie Ferrell - 12/18/2024 9:09 AM EDTAssociated Order(s): IP CONSULT TO [facility] Images from the original note were not included. Behavioral Health Services - Crisis Assessment Important times Time of arrival: 12/17/24 10:36 pm Time of referral: 12/17/24 10:45 pm Time of readiness: 12/18/24 6:00 am Time assessment started: 12/18/24 7:30 am Time of disposition: 12/18/24 8:30 am Location: [facility] Emergency Room Consulted case with: Tamar Rodriguez PsyD Insurance information: Insurance: Medicare A&B Verified by: EPIC Reason for Consultation / Presenting Problem: Andreas Conway is being seen today for a consultive service at the request of Pilar Landeros MD;Jason Fuchs* to assess risk and identify appropriate level of care. 59-year-old male well-known to our department, history of bipolar, anxiety/depression, diabetes and hypertension presenting to the emergency department with suicidal ideation. Patient reports today he had thoughts of wanting to slit his throat and cut himself. When asked if patient reach out to anyone for help while at home and having these thoughts, he said no. I asked what coping mechanisms he tried to utilize and he said none, I was told any, have these thoughts and need to come to the emergency room. Denies any homicidal ideation, auditory or visual hallucinations. Denies any alcohol or drug use. Andreas reported I had a fight with my due to her having another boyfriend . He stated she is moving out of the apartment and will be gone in a few days . He stated it is my apartment and I will go back after she is gone .Andreas stated I don't want to go back there until she is gone . He stated I was at [facility]terday and they told me to go to respite at [facility] . He stated I would like to go there today to see if I can get a respite bed . He stated I don't want to hurt myself or anyone . History of Present Illness: Andreas is a 59 y.o. male with Chief Complaint Patient presents with Suicidal Social/Educational History: Guardian - if Yes, provide contact information: Self [place] Status: None State Agency Involvement: N/A Brad's Order: None reported Marital Status: Alternative Placement Details: N/A Living Situation for patient: Homeless Household Members/Age: Unknown Friendships/Family/Social Peer Support/Relationships: Stated he has no supports Highest level of education: High school graduate Comments (Include Learning Needs): None reported Occupation: Unemployed Employment/Extracurricular Activities/Hobbies: Unemployed Limitations of Daily Activities: None reported Strengths/Supports: Andreas is able to access his needs. Collaterals, contact information, and engagement level: Therapist: None reported Psychiatrist: PCP fills medications PCP: Unknown Family: None reported Mental Status Speech: WNL Eye Contact: WNL Motor Activity: WNL Mood: Anxious Affect: Appropriate Sleep: WNL Appetite: WNL Memory: WNL Attention / Concentration: WNL Behavior: Cooperative Appearance: Hallucinations: None Delusions: None Thought Content: WNL SI: Denied HI: Denied Thought Process: Helpless Orientation Impairment: None Insight: WNL Judgment: WNL Impulse Control: WNL Substance Use History (Including family history): Alcohol 1 x month, 2 beers. I have been clean for 11 months. Cocaine onset age 18, 4 x week, sniff. Last use 11 months Utox Results: BAL negative TOX negative Substance Use Treatment History: Andreas has no history of substance abuse treatment. Mental Health Treatment History: Outpatient Mental Health Treatment: PCP prescribes his medicaitons Previous or Current Psychological Diagnosis: Depression and cocaine use. Prior Psychiatric Hospitalizations/Residential Treatment Facilities: Andreas is known to [facility]. He denies any history of suicide attempts. He reported he has been admitted to a psychiatric hospitals for depression. Other Comments Regarding Mental Health Treatment History: None reported Mental Health Concerns in Family: None reported Trauma History: Andreas denies any history of sexual abuse or other trauma Medications: Scheduled Meds: MEDSSCHEDULED[1] Continuous Infusions: MEDSCONTINUOUS[2] PRN Meds: MEDSPRN[3] Risk Assessment: Self-Harm: None Suicidal Behavior: None Homicidal Behavior: None Physical Assault: None Physical Aggression: None Property Damage: None Verbal Aggression: None Family history of suicide: None reported Protective Factors: Stable housing Risk Factors: is leaving him however, he stated he is okay with that. Lack of providers Suicide Risk: Based on patient's history and current presentation, their level of risk for intentional lethal harm is considered Low Safety Plan Completed: yes Going to [facility] to see if he can get into respite. Interventions: Used active listening Response to interventions: Andreas was engaged in the conversation. DSM-5TR Diagnosis: F33.2 Major Depression, severe, recurrent F14.21 Cocaine use, severe in early remission. Plan: Andreas is at low risk for harm to himself and others. He reported his was moving out and he didnot want to be home. Andreas reported she was going to [facility] respite to see if they have beds. He was discharged to follow up with [facility] Recommendations were discussed with requesting provider. It was a pleasure to assist Andreas Conway here at [facility]. This report is written and finalized by: Cyndie Ferrell MS Behavioral Health Specialist [facility] (Tel): [phone] / : [phone] [1] insulin lispro, 2-12 Units, subcutaneous, TID with meals PARoxetine, 40 mg, oral, Daily [2] [3] PRN medications: dextrose 50%, dextrose 50%, dextrose, dextrose, glucagon injection documented in this encounter Plan of Treatment Not on file documented as of this encounter Procedures Procedure Name Priority Date/Time Associated Diagnosis Comments POC GLUCOSE STAT 12/18/2024 7:41 AM EDT POCT GLUCOSE BLOOD Routine 12/18/2024 7: 40 AM EDT DRUG ABUSE SCREEN 8A PANEL, URINE STAT 12/17/2024 10:36 PM EDT BUPRENORPHINE SCREEN, URINE STAT 12/17/2024 10:36 PM EDT METHADONE SCREEN, URINE STAT 12/17/2024 10:36 PM EDT CBC WITH AUTO DIFFERENTIAL STAT 12/17/2024 10:36 PM EDT PHENCYCLIDINE, URINE STAT 12/17/2024 10:36 PM EDT CBC AND DIFFERENTIAL STAT 12/17/2024 10:36 PM EDT ETHANOL STAT 12/17/2024 10:36 PM EDT ACETAMINOPHEN LEVEL STAT 12/17/2024 1 0:36 PM EDT SALICYLATE LEVEL STAT 12/17/2024 10:3 6 PM EDT COMPREHENSIVE METABOLIC PANEL STAT 12/17/2024 10:36 PM EDT documented in this encounter Results * (ABNORMAL) POCT glucose manually resulted (12/18/2024 7:41 AM EDT) Blood Capillary blood specimen / Unknown 12/18/2024 7:41 AM EDT us Pilar Landeros MD POINT OF CARE TEST ENTER/EDIT ORDERABLES Final Result * (ABNORMAL) POCT Glucose, blood (12/18/2024 7:40 AM EDT) Glucose POCT 151(H) 70 - 100 mg/dL 12/18/2024 7:41 AM EDT [facility] Blood Capillary blood specimen / Unknown 12/18/2024 7:40 AM EDT 12/18/2024 7:43 AM EDT us Pilar Landeros MD LAB POINT OF CARE TE ST DOCKED DEVICE UNSOLICITED RESULTS Final Result [facility] [address] [place] [address], [place] [phone] * (ABNORMAL) CBC auto differential (12/17/2024 10:36 PM EDT) WBC 11.0(H) 4.8 - 10.8 K/[facility] HEMETOLOGY [facility] RBC 5.00 4.50 - 5.50 M/mcL LAB HEMETOLOGY METHOD 12/17/2024 11:[address] [facility] Hemoglobin 13.2(L) 13.5 - 17.5 g/dL LAB HEMETOLOGY METHOD 12/17/2024 11:[address] [facility] Hematocrit 41.9(L) 42.0 - 54.0 % LAB HEMETOLOGY METHOD 12/17/2024 11:[address] [facility] MCV 84.3 79.0 - 98.0 FL LAB HEMETOLOGY METHOD 12/17/2024 11:[address] [facility] MCH 26.6(L) 27.0 - 32.0 pcg LAB HEMETOLOGY METHOD 12/17/2024 11:[address] [facility] MCHC 31.5(L) 32.0 - 37.0 g/dL LAB HEMETOLOGY METHOD 12/17/2024 11:[address] [facility] RDW 14.4 11.0 - 15.0 % LAB HEMETOLOGY METHOD 12/17/2024 11:[address] [facility] Platelets 309 130 - 400 K/mcL LAB HEMETOLOGY METHOD 12/17/2024 11:[address] [facility] MPV 10.1 7.0 - 11.0 FL LAB HEMETOLOGY METHOD 12/17/2024 11:[address] [facility] NRBC 0.0 <1.0 % LAB HEMETOLOGY METHOD 12/17/2024 11:[address] [facility] NRBC Absolute 0.00 <0.10 K/mcL LAB HEMETOLOGY METHOD 12/17/2024 11:[address] [facility] Neutrophils Relative 68.7 % LAB HEMETOLOGY METHOD 12/17/2024 11:27 PM EDT [facility] Lymphocytes Relative 20.6 % LAB HEMETOLOGY METHOD 12/17/2024 11:[address] [facility] Monocytes Relative 8.8 % LAB HEMETOLOGY METHOD 12/17/2024 11:[address] [facility] Eosinophils Relative 1.0 % LAB HEMETOLOGY METHOD 12/17/2024 11:[address] [facility] Basophils Relative 0.5 % LAB HEMETOLOGY METHOD 12/17/2024 11:[address] [facility] Immature Granulocytes Relative 0.4 % LAB HEMETOLOGY METHOD 12/17/2024 11:[address] [facility] Neutrophils Absolute 7.56(H) 1.50 - 7.00 K/mcL LAB HEMETOLOGY METHOD 12/17/2024 11:[address] [facility] Lymphocytes Absolute 2.26 1.00 - 5.00 K/mcL LAB HEMETOLOGY METHOD 12/17/2024 11:[address] [facility] Monocytes Absolute 0.97 0.20 - 1.00 K/mcL LAB HEMETOLOGY METHOD 12/17/2024 11:[address] [facility] Eosinophils Absolute 0.11 0.00 - 0.50 K/mcL LAB HEMETOLOGY METHOD 12/17/2024 11:[address] [facility] Basophils Absolute 0.05 0.00 - 0.20 K/mcL LAB HEMETOLOGY METHOD 12/17/2024 11:[address] [facility] Immature Granulocytes Absolute 0.04(H) 0.00 - 0.03 K/mcL LAB HEMETOLOGY METHOD 12/17/2024 11:[address] [facility] Blood Venous blood specimen / Unknown Venipuncture / Unknown 12/17/2024 10:36 PM EDT 12/17/2024 11:24 PM EDT Pilar Landeros MD LAB BLOOD ORDERABLES Final Res ult Performing Organization Address [facility] Co de Phone Number [facility] [address] [place] [address], [place] [phone] * Methadone, urine (12/17/2024 10:36 PM EDT) Methadone Screen, Urine Negative Negative LAB CHEMISTRY METHOD 12/17/2024 11:51 PM EDT [facility] Comment: Assay cutoff 300 ng/mL Semi-quantitative assay for screening purposes only. Unconfirmed screening result should not be used for non-medical purposes. *ALTERNATE METHOD CONFIRMATION DONE UPON REQUEST ONLY* Urine Urine specimen obtained by clean catch procedure / Unknown Non-blood Collection / Unknown 12/17/2024 10:36 PM EDT 12/17/2024 11:24 PM EDT Pilar Landeros MD LAB URINE ORDERABLES Final Res ult Performing Organization Address [facility] de Phone Number [facility] [address] [place] [address], [place] [phone] * Phencyclidine, urine (12/17/2024 10:36 PM EDT) PCP Scrn, Ur Negative Negative LAB CHEMISTRY METHOD 12/17/2024 11:51 PM EDT [facility] Comment: Assay cutoff 25 ng/mL Semi-quantitative assay for screening purposes only. Unconfirmed screening result should not be used for non-medical purposes. *ALTERNATE METHOD CONFIRMATION DONE UPON REQUEST ONLY* Urine Urine specimen obtained by clean catch procedure / Unknown Non-blood Collection / Unknown 12/17/2024 10:36 PM EDT 12/17/2024 11:24 PM EDT Pilar Landeros MD LAB URINE ORDERABLES Final Res ult Performing Organization Address City/[facility]/ZIP Co de Phone Number [facility] [address] [place] [address], [place] [phone] * Buprenorphine screen, urine (12/17/2024 10:36 PM EDT) [facility] Buprenorphine Screen Urine Negative Negative LAB CHEMISTRY METHOD 12/17/2024 11:51 PM EDT [facility] Urine Urine specimen obtained by clean catch procedure / Unknown Non-blood Collection / Unknown 12/17/2024 10:36 PM EDT 12/17/2024 11:24 PM EDT Narrative [facility] - 12/17/2024 11:51 PM EDT Assay cutoff 5 ng/mL Semi-quantitative assay for screening purposes only. Unconfirmed screening result should not be used for non-medical purposes. *ALTERNATE METHOD CONFIRMATION DONE UPON REQUEST ONLY* Pilar Landeros MD LAB URINE ORDERABLES Final Res ult [facility] [address] [place] [address], [place] [phone] * Drug abuse screen 8a panel, urine (12/17/2024 10:36 PM EDT) [facility] Amphetamine Screen, Ur Negative Negative LAB CHEMISTRY METHOD 12/17/2024 11:51 PM EDT [facility] Comment:Certain OTC medicati ons containing ephedrine, phenylephrine, pseudoephedrine and phenylpropanolamine can cause false positive results. Barbiturate Screen, Ur Negative Negative LAB CHEMISTRY METHOD 12/17/2024 11:51 PM EDT [facility] Benzodiazepine Screen, Ur Negative Negative LAB CHEMISTRY METHOD 12/17/2024 11:51 PM EDT [facility] Cocaine Screen, Ur Negative Negative LAB CHEMISTRY METHOD 12/17/2024 11:51 PM EDT [facility] Opiate Screen, Ur Negative Negative LAB CHEMISTRY METHOD 12/17/2024 11:51 PM EDT [facility] Cannabinoid (THC) Screen, Ur Negative Negative LAB CHEMISTRY METHOD 12/17/2024 11:51 PM EDT [facility] Comment:Specimens from patie nts taking pantoprazole sodium (Protonix) have been shown to produce false positive results. Oxycodone Screen, Ur Negative Negative LAB CHEMISTRY METHOD 12/17/2024 11:51 PM EDT [facility] Fentanyl, Ur Negative Negative LAB CHEMISTRY METHOD 12/17/2024 11:51 PM EDT [facility] Urine Urine specimen obtained by clean catch procedure / Unknown Non-blood Collection / Unknown 12/17/2024 10:36 PM EDT 12/17/2024 11:24 PM EDT Narrative [facility] - 12/17/2024 11:51 PM EDT Assay cutoffs: Amphetamines 1000 ng/mL Barbiturates 200 ng/mL Benzodiazepines 200 ng/mL Cocaine 300 ng/mL Fentanyl 1 ng/mL Opiates 300 ng/mL Oxycodone 100 ng/mL THC 50 ng/mL Semi-quantitative assay for screening purposes only. Unconfirmed screening result should not be used for non-medical purposes. *ALTERNATE METHOD CONFIRMATION DONE UPON REQUEST ONLY* Pilar Landeros MD LAB URINE ORDERABLES Final Res ult [facility] [address] [place] [address], * (ABNORMAL) Salicylate level (12/17/2024 10:36 PM EDT) Salicylate Level <1.7(L) 2.0 - 29.0 mg/dL LAB CHEMISTRY METHOD 12/18/2024 12:00 AM EDT [facility] Blood Venous blood specimen / Unknown Venipuncture / Unknown 12/17/2024 10:36 PM EDT 12/17/2024 11:24 PM EDT Pilar Landeros MD LAB BLOOD ORDERABLES Final Res ult Performing Organization Address [facility]/ZIP Co de Phone Number [facility] [address] [place] [address], [place] [phone] * (ABNORMAL) Acetaminophen level (12/17/2024 10:36 PM EDT) Acetaminophen Level <2.0(L) 10.0 - 30.0 mcg/mL LAB CHEMISTRY METHOD 12/18/2024 12:02 AM EDT [facility] Blood Venous blood specimen / Unknown Venipuncture / Unknown 12/17/2024 10:36 PM EDT 12/17/2024 11:24 PM EDT Pilar Landeros MD LAB BLOOD ORDERABLES Final Res ult Performing Organization Address [facility] de Phone Number [facility] [address] [place] [address], [place] [phone] * Ethanol (12/17/2024 10:36 PM EDT) Ethanol Level <3 0 - 10 mg/dL LAB CHEMISTRY METHOD 12/18/2024 12:02 AM EDT [facility] Blood Venous blood specimen / Unknown Venipuncture / Unknown 12/17/2024 10:36 PM EDT 12/17/2024 11:24 PM EDT Pilar Landeros MD LAB BLOOD ORDERABLES Final Res ult Performing Organization Address City/[facility]/ZIP Co de Phone Number [facility] [address] [place] [address], [place] [phone] * (ABNORMAL) Comprehensive metabolic panel (12/17/2024 10:36 PM EDT) Sodium 136 133 - 145 mmol/L LAB CHEMISTRY METHOD 12/18/2024 12:00 AM EDT [facility] Potassium 4.1 3.5 - 5.5 mmol/L LAB CHEMISTRY METHOD 12/18/2024 12:[address] [facility] Chloride 100 96 - 110 mmol/L LAB CHEMISTRY METHOD 12/18/2024 12:[address] [facility] CO2 29 21 - 32 mmol/L LAB CHEMISTRY METHOD 12/18/2024 12:[address] [facility] Anion Gap 7 3 - 11 LAB CHEMISTRY METHOD 12/18/2024 12:[address] [facility] Glucose 213(H) 70 - 100 mg/dL LAB CHEMISTRY METHOD 12/18/2024 12:[address] [facility] BUN 27(H) 5 - 25 mg/dL LAB CHEMISTRY METHOD 12/18/2024 12:[address] [facility] Creatinine 1.29 0.70 - 1.30 mg/dL LAB CHEMISTRY METHOD 12/18/2024 12:[address] [facility] eGFR 64 >=60 mL/min/1. 73m2 LAB CHEMISTRY METHOD 12/18/2024 12:[address] [facility] Comment:Calculation based on the Chronic Kidney Disease Epidemiology Collaboration (CKD-EPI) equation refit without adjustment for race. BUN/Creatinine Ratio 20.9 LAB CHEMISTRY METHOD 12/18/2024 12:[address] [facility] Calcium 9.3 8.5 - 10.5 mg/dL LAB CHEMISTRY METHOD 12/18/2024 12:[address] [facility] AST (SGOT) 29 10 - 42 unit/L LAB CHEMISTRY METHOD 12/18/2024 12:[address] [facility] ALT (SGPT) 36 10 - 60 unit/L LAB CHEMISTRY METHOD 12/18/2024 12:[address] [facility] Alkaline Phosphatase 94 42 - 121 unit/L LAB CHEMISTRY METHOD 12/18/2024 12:[address] [facility] Total Protein 7.7 6.0 - 8.0 g/dL LAB CHEMISTRY METHOD 12/18/2024 12:00 AM EDT [facility] Albumin 4.0 3.2 - 5.0 g/dL LAB CHEMISTRY METHOD 12/18/2024 12:00 AM EDT [facility] Total Bilirubin 0.3 0.0 - 1.4 mg/dL LAB CHEMISTRY METHOD 12/18/2024 12:00 AM EDT [facility] Blood Venous blood specimen / Unknown Venipuncture / Unknown 12/17/2024 10:36 PM EDT 12/17/2024 11:24 PM EDT us Pilar Landeros MD LAB BLOOD ORDERABLES Final Res ult [facility] [address] [place] [address], documented in this encounter Visit Diagnoses Diagnosis Suicidal ideation- Primary documented in this encounter Administered Medications Inactive Administered Medications - up to 3 most recent administrations Medication Order MAR Action Action Date Dose Rate Site dextrose (D50W) 50% injection 12.5 g 12.5 g, intravenous, Every 15 min PRN, low blood sugar, moderate hypoglycemia *Patient is Unconscious, NPO, unable to swallow: BG 54 - 69 mg/dl*, Starting on Thu12/18/24 at 0251 dextrose (D50W) 50% injection 25 g 25 g, intravenous, Every 15 min PRN, low blood sugar, severe hypoglycemia *Patient is Unconscious, NPO, unable to swallow: BG LESS than 54 mg/dL*, Starting on Thu12/18/24 at 0251 dextrose 15 gram/60 mL oral solution 15 g 15 g, oral, Every 15 min PRN, low blood sugar, hypoglycemia *Patient conscious AND able to drink and swallow safely*, Starting on Thu12/18/24 at 0251 dextrose 15 gram/60 mL oral solution 30 g 30 g, oral, Every 15 min PRN, low blood sugar, hypoglycemia *Patient conscious AND able to drink and swallow safely*, Starting on Thu12/18/24 at 0251 glucagon HCL injection 1 mg 1 mg, intramuscular, Once as needed, low blood sugar, severe hypoglycemia, Starting on 12/18/24 at 0251, For 1 dose hydrOXYzine pamoate (VISTARIL) capsule 50 mg 50 mg, oral, Once, On 12/18/24 at 0639, For 1 dose Given 12/18/2024 6:49 AM EDT 50 mg insulin lispro injection 2-12 Units 2-12 Units, subcutaneous, 3 times daily with meals, First dose on 12/18/24 at 0800, Indication: Total Daily Dose (TDD) 40 - 80 units. Correction Scale: Moderate Dose Administer with meal and/or mealtime dose of insulin to correct high blood glucose If mealtime insulin dose not given (e.g. patient NPO or not eating), still administer correction factor for high blood glucose Given 12/18/2024 8:00 AM EDT 2 Units Right Upper Arm (Back) PARoxetine (PAXIL) tablet 40 mg 40 mg, oral, Daily, First dose (after last modification) on 12/18/24 at 0800, Hazardous Medication Intact: - Single pair of ASTM standard [id number] certified gloves - Eye/face protection if vomit or potential to spit up - Do NOT split, crush, or open dosage units Given 12/18/2024 7:33 AM EDT 40 mg documented in this encounter Discontinued Medications Medication Sig Discontinue Reason Start Date End Da te PARoxetine (PAXIL) 30 mg tablet Take 1 tablet (30 mg total) by mouth 1 (one) time each day in the morning. 07/27/2024 12/18/2024 documented as of this encounter Historical Medications * This list may reflect changes made after this encounter. PARoxetine (PAXIL) 40 mg tablet Take 1 tablet (40 mg total) by mouth 1 (one) time each day. 11/29/2024 added in this encounter Active and Recently Administered Medications Times are shown in EDT. Scheduled Medication Order 12/16/2024 12/17/2024 12/18/2024 hydrOXYzine pamoate (VISTARIL) capsule 50 mg (COMPLETED) 50 mg, oral, Once, On 12/18/24 at 0639, For 1 dose 0649 (Given - Provid er: Laquita Diaz RN) insulin lispro injection 2-12 Units 2-12 Units, subcutaneous, 3 times daily with meals, First dose on 12/18/24 at 0800, Indication: Total Daily Dose (TDD) 40 - 80 units. Correction Scale: Moderate Dose Administer with meal and/or mealtime dose of insulin to correct high blood glucose If mealtime insulin dose not given (e.g. patient NPO or not eating), still administer correction factor for high blood glucose 0800 (Given - Provid er: Anay Hernandez RN - Comment: no label in pyxis to scan) PARoxetine (PAXIL) tablet 40 mg 40 mg, oral, Daily, First dose (after last modification) on 12/18/24 at 0800, Hazardous Medication Intact: - Single pair of ASTM standard [id number] certified gloves - Eye/face protection if vomit or potential to spit up - Do NOT split, crush, or open dosage units 0733 (Given - Provid er: Janine Kevin RN) PRN Medication Order 12/16/2024 12/17/2024 12/18/2024 dextrose (D50W) 50% injection 12.5 g 12.5 g, intravenous, Every 15 min PRN, low blood sugar, moderate hypoglycemia *Patient is Unconscious, NPO, unable to swallow: BG 54 - 69 mg/dl*, Starting on 12/18/24 at 0251 dextrose (D50W) 50% injection 25 g 25 g, intravenous, Every 15 min PRN, low blood sugar, severe hypoglycemia *Patient is Unconscious, NPO, unable to swallow: BG LESS than 54 mg/dL*, Starting on 12/18/24 at 0251 dextrose 15 gram/60 mL oral solution 15 g 15 g, oral, Every 15 min PRN, low blood sugar, hypoglycemia *Patient conscious AND able to drink and swallow safely*, Starting on 12/18/24 at 0251 dextrose 15 gram/60 mL oral solution 30 g 30 g, oral, Every 15 min PRN, low blood sugar, hypoglycemia *Patient conscious AND able to drink and swallow safely*, Starting on 12/18/24 at 0251 glucagon HCL injection 1 mg 1 mg, intramuscular, Once as needed, low blood sugar, severe hypoglycemia, Starting on 12/18/24 at 0251, For 1 dose documented in this encounter Orders Medications Ordered That Ti ht Not Have Been Administered Count Last Ordered Date First Ordered Date dextrose (D50W) 50% injection 12.5 g 1 11/30 dextrose (D50W) 50% injection 25 g 1 2024 dextrose 15 gram/60 mL oral solution 15 g 1 12/18/2024 dextrose 15 gram/60 mL oral solution 30 g 1 12/18/2024 glucagon HCL injection 1 mg 1 12/18/2024 PARoxetine (PAXIL) tablet 30 mg 1 PARoxetine (PAXIL) tablet 40 mg 1 5 Consult Count Last Ordered Date First Orde red Date IP CONSULT TO DOPE HEATER 1 12/18/2024 documented in this encounter Care Teams Blood Bank Technologist Relationship Specialty Start Date End Date Yoel Parrish MD [address] [place] [phone] PCP - General Internal Medicine 01/27/24 documented as of this encounter
--- NOTE | ~2024-12-18 | XR_ITS ---
CLINICAL HISTORY: punched a wall 3 view right hand Comparison: None provided Findings: Bones intact. No dislocations. No significant loss of joint space or osteophytes. No erosions. No radiopaque foreign body. IMPRESSION: 1. No acute findings This document has been electronically signed by: Ugo Arshad MD on 12/18/2024 23:46:35
[2024-12-18 20:01] VITALS: BP 146/81; PULSE 108; RESP 20; TEMP 36.2; O2SAT 98; BMI 28.2
--- NOTE | 2024-12-18 20:03 | ED.PSYCH ---
HPI - Psych General Chief Complaint: Psychiatric Symptoms Stated Complaint: SI, depression Time Seen by Provider: 12/18/24 21:47 Source: patient Mode of arrival: ambulatory Limitations: no limitations History of Present Illness ED Provider: Dr. Luz Parker Related Data Home Medications ?Medication ?Instructions ?Recorded ?Confirmed melatonin 10 mg tablet 10 mg PO BEDTIME 06/28/24 12/19/24 metformin 1,000 mg tablet 1,000 mg PO BID 06/28/24 12/19/24 albuterol sulfate 90 mcg/actuation 2 puff inhalation QID PRN wheezing 09/06/24 12/19/24 aerosol inhaler aspirin 81 mg tablet,delayed 81 mg PO DAILY 09/06/24 12/19/24 release atorvastatin 40 mg tablet 20 mg PO DAILY 09/06/24 12/19/24 gabapentin 300 mg capsule 300 mg PO TID neuropathy 09/06/24 12/19/24 quetiapine 400 mg tablet 400 mg PO DAILY@1700 09/06/24 12/19/24 quetiapine 50 mg tablet 50 mg PO BID PRN AGITATION/RACING 09/06/24 12/19/24 THOUGHTS trazodone 50 mg tablet 50 mg PO BEDTIME PRN Sleep 09/06/24 12/19/24 hydroxyzine pamoate 50 mg capsule 50 mg PO BID PRN Anxiety 10/24/24 12/19/24 paroxetine HCl 20 mg tablet 40 mg PO DAILY 10/24/24 12/19/24 acetaminophen 500 mg tablet 1,000 mg PO Q6H PRN mild pain 11/20/24 12/19/24 cyclobenzaprine 10 mg tablet 10 mg PO BID PRN Muscle Spasm 11/20/24 12/19/24 docusate sodium 100 mg capsule 100 mg PO Q12H 11/20/24 12/19/24 ibuprofen 200 mg tablet 400 mg PO Q6H PRN fever 11/20/24 12/19/24 insulin glargine 100 unit/mL 15 unit subcut BEDTIME diabetes 11/20/24 12/19/24 subcutaneous solution (Lantus mellitus U-100 Insulin) naproxen 375 mg tablet 375 mg PO BID 11/20/24 12/19/24 ondansetron 4 mg disintegrating 4 mg PO Q8H PRN Nausea And Vomiting 09/21/25 10/20/25 tablet pantoprazole 40 mg tablet,delayed 40 mg PO BID 11/20/24 12/19/24 release Previous Rx's ?Medication ?Instructions ?Recorded insulin lispro 100 unit/mL See Protocol subcut QIDACHS 30 06/15/24 subcutaneous solution (Admelog days #10 mL U-100 Insulin lispro) sitagliptin phosphate 100 mg 100 mg PO DAILY 30 days #30 tabs 06/15/24 tablet (Januvia) omeprazole 20 mg capsule,delayed 20 mg PO DAILY #30 caps 12/02/24 release sucralfate 100 mg/mL oral 10 ml PO QID PRN indigestion #300 12/05/24 suspension (Carafate) mL docusate sodium 100 mg capsule 100 mg PO DAILY #14 caps 12/16/24 (Colace) famotidine 20 mg tablet (Pepcid) 20 mg PO BID #28 tabs 12/16/24 polyethylene glycol 3350 17 17 g PO DAILY #119 grams 12/16/24 gram/dose oral powder (Miralax) Allergies Allergy/AdvReac Type Severity Reaction Status Date / Time glipizide (GLIPIZIDE) Allergy Intermediate ITCHY Verified 12/18/24 20:03 oxycodone Allergy Hives Verified 12/18/24 20:03 Review of Systems Review of Systems: as per HPI, full review of systems performed and negative but for the above mentioned pertinent positives and negatives. [facility] Past Medical History Medical History Asthma Depression MDD (major depressive disorder), recurrent episode, moderate Cocaine use disorder Substance-induced psychotic disorder Anxiety Diabetes Surgical History History of facial surgery H/O knee surgery Social History Social History Household Members: None Housing: Homeless Do you presently have visiting nurse or other home services: No Alcohol intake: current Alcohol intake frequency: does not drink Alcohol type: beer Patient Tobacco Use Status: Current everyday Tobacco user Tobacco use type: Cigarette Cigarette Packs Per Day: 1 Cigarettes Per Day: 20.0 Years Smoked: 35 e-Cigarette/Vaping Use: Former Use Second Hand Smoke Exposure: No Substance Use Type: Crack/Cocaine Advance Directives: Yes Advance Directives on File: Yes Advance Directives Date on File: 10/24/21 service: No Sexual orientation: Straight/Heterosexual Physical Exam Exam: Exam: GENERAL: Unkempt, no acute distress. SKIN: Normal skin color for ethnicity, warm, dry, no rashes noted. HEENT:? Normocephalic, atraumatic, no stridor, posterior oropharynx nonerythematous, dentition intact, EOMI. NECK: Soft, supple, full ROM, midline structures nontender, no step-offs, no deformities, no lymphadenopathy. CHEST: Heart regular rate and rhythm, no murmurs, symmetric chest rise and fall. PULMONARY: Clear to auscultation bilaterally, no labored breathing, no wheezes/rhales/rhonchi. ABDOMINAL: Soft, nondistended, nontender, positive bowel sounds in all quadrants. : Deferred. MUSCULOSKELETAL: Normal tone, full range of motion, minimal swelling of the MCP joint 3 and 4 on the right hand, neurovascularly intact distally, full function of the radial, median and ulnar nerves of the right hand, no peripheral edema. NEURO: Alert and oriented x3, CN II through XII intact, equal strength and sensation bilateral upper and lower extremities, no focal neurologic deficits.? PSYCHIATRIC: Flat affect, poor eye contact, withdrawn Vital Signs: Vital Signs: Last Vital Signs Temp 97.1 F 12/19/24 08:54 Pulse 88 12/19/24 08:54 Resp 16 12/19/24 08:54 BP 126/68 12/19/24 08:54 Pulse Ox 97 12/19/24 08:54 O2 Del Method Room Air 12/19/24 08:54 BMI result Body Mass Index 28.2 Course Course Course Narrative: This is a rapid medical exam performed by Hattie Gallegos NP: Additional HPI, ROS, PE not included below will be deferred to primary provider. Patient is a 59y/o M presenting to the ED wt complaint of depression and SI, self inflicted abrasion to forearm. Denies HI. Plan: med clearance then CARE team eval Time: 06:18 Date: 12/19/24 Provider: Rita Marion, DO Patient in physician observation for psychiatric evaluation.? No acute events reported overnight. No current complaints. VS stable.? Patient is in bed search status. Will continue to monitor. Reevaluation(s) Reevaluation #1: Time: 10:55 Date: 12/19/24 Provider: Rita Marion DO Physician observation ended at 1055am. Patient has been cleared for discharge by the CARE team. Will follow up at respite today. Medications Administered Discontinued Medications Generic Name Dose Route Start Last Admin Trade Name Conner PRN Reason Stop Dose Admin Acetaminophen 650 mg 12/18/24 22:41 12/18/24 23:10 Acetaminophen 325 Mg Tablet PO 12/18/24 22:42 650 mg ONCE ONE Administration Medical Decision Making Medical Decision Making [facility] Narrative: Patient presents with psychologic complaints. Differential diagnosis includes suicidal ideations, homicidal ideations, depression, anxiety, mood disorder, decompensated mental illnesses such as schizophrenia or bipolar disorder, medication noncompliance, among many others. Medical clearance protocol was initiated. Patient also complaining of right hand pain after punching a wall today. He has minimal swelling overlying the 3rd and 4th MCP joints of the right hand. Full range of motion on all joints of the right hand. Neurovascularly intact otherwise. X-ray to evaluate for boxer's fracture. Behavioral health clinician recommending at respite. Patient is very well known to this emergency department. Very low risk despite his suicidal ideation. Awaiting respite availability. Differential Diagnosis Differential Diagnoses: The differential diagnosis associated with the presentation includes (as above) Admission/Observation Consideration of admission/observation: Escalation of care including admission/observation considered Consult Healthcare Provider Management of the patient was discussed with: Behavioral Health Provider Lab Data [facility] Lab Attestation statement: I reviewed the patient's lab results. 12/18/24 20:41 12/18/24 20:41 Labs: Lab Results 12/18/24 12/18/24 12/19/24 Range/Units 20:41 21:33 07:36 WBC 11.6 H (4.8-10.8) X10*3/uL RBC 4.98 (4.60-5.80) X10*6/uL Hgb 13.3 L (14.0-18.0) g/dl Hct 40.0 L (42.0-52.0) % MCV 80.3 (80.0-98.0) fL MCH 26.7 L (27.0-33.0) pg MCHC 33.3 (31.0-36.0) g/dl RDW 14.3 (11.0-16.0) % Plt Count 293 (160-400) X10*3/uL MPV 9.6 (9.4-12.4) fL Immature Gran % (Auto) 0.3 (0.0-0.4) % Neut % (Auto) 76.0 H (45-73) % Lymph % (Auto) 13.4 L (20-40) % [place] % (Auto) 9.7 (2-11) % Eos % (Auto) 0.3 (0-4) % Baso % (Auto) 0.3 (0-2) % Lymph # (Auto) 1.6 (1.2-4.9) X10*3/uL [place]rick # (Auto) 1.1 (0.1-1.2) X10*3/uL Eos # (Auto) 0.0 (0.0-0.4) X10*3/uL Baso # (Auto) 0.0 (0.0-0.2) X10*3/uL Abs Immat Gran (auto) 0.03 (0.00-0.03) X10*3/uL Absolute Neuts (auto) 8.8 H (2.0-8.3) x10*3/uL Absolute Nucleated RBC 0.000 (0.0-0.012) X10*3/uL Nucleated RBC % (auto) 0.0 (0.0-0.2) /100WBC Sodium 138 (135-145) mmol/L Potassium 4.1 (3.3-5.1) mmol/L Chloride 104 (96-108) mmol/L Carbon Dioxide 22 (22-29) mmol/L Anion Gap 16 (12-20) BUN 17 H (9-16) mg/dL Creatinine 1.14 (0.5-1.4) mg/dL Estim Creat Clear Calc 69.9 Estimated GFR > 60 POC Glucose 231 H (60-115) mg/dL Random Glucose 188 H (60-115) mg/dL Calcium 9.1 D (8.4-10.2) mg/dL Total Bilirubin 0.4 (0.0-1.0) mg/dL AST 27 (5-37) U/L ALT 27 (0-40) U/L Alkaline Phosphatase 95 (39-117) U/L Total Protein 8.0 (6.5-8.0) g/dL Albumin 4.6 (3.5-5.0) g/dL Urine Color Yellow Urine Appearance Clear Urine pH 5.5 (5.0-9.0) Ur Specific [place] 1.025 (1.005-1.025) Urine Protein 30 (1+) H (Neg-Trace) mg/dL Urine Glucose (UA) Negative (Negative) mg/dL Urine Ketones Negative (Negative) mg/dL Urine Blood Small (1+) H (Negative) Urine Nitrite Negative (Negative) Ur Leukocyte Esterase Negative (Negative) Urine RBC 0-2 (0-2) /HPF Urine WBC 0-5 (0-5) /HPF Ur Squamous Epith Cells 0-2 (0-2) /HPF Urine Bacteria None Seen (None Seen) Hyaline Casts 0-2 (0-2) /LPF Urine Opiates Screen Not Detected (Not Detect) Ur Buprenorphine Scrn Not Detected (Not Detect) ng/mL Ur Oxycodone Screen Not Detected (Not Detect) ng/mL Urine Methadone Screen Not Detected (Not Detect) ng/mL Urine Fentanyl Screen Not Detected (Not Detect) Ur Barbiturates Screen Not Detected (Not Detect) Ur Phencyclidine Scrn Not Detected (Not Detect) Ur Amphetamines Screen Not Detected (Not Detect) U Benzodiazepines Scrn Not Detected (Not Detect) Urine Cocaine Screen Not Detected (Not Detect) U Marijuana (THC) Screen Not Detected (Not Detect) Ethyl Alcohol 11 mg/dL COVID-19 (BETY) Negative (Negative) COVID-19 Clin Com See Note Independent Interpretation I performed an independent interpretation of an: Plain X-Ray Interpretation: No fractures/dislocations noted in the right hand Radiology Impression Discussion of test interpretation with radiology: I have reviewed the radiologist's reading. External Record Review External record reviewed: Inpatient record Chronic Conditions Patient?s care impacted by: Other (PTSD, MDD, schizophrenia, substance use disorder) Social Determinants Patient?s care significantly limited by Social Determinants of Health including: Inadequate housing and Other Social Determinant of Health Discharge Plan Discharge Clinical Impression: Chronic schizophrenia, Suicidal ideation, Contusion of right hand, initial encounter Patient Disposition: Xfer Other Transfer Details: [facility] respite Instructions: Contusion in Adults (ED), Schizophrenia (ED) Additional Instructions: You were seen in our Emergency Department today for treatment of a behavioral health issue. It is important after your visit that you follow up with either your behavioral health provider or a primary care doctor within 7 days.? If you have trouble finding a therapist you can reach out to [address] [phone] The National Suicide and Crisis Lifeline can be reached 7 days a week 24 hours a day.? Call [phone] to speak with someone.? Return for any worsening symptoms or concerns such as thoughts of self harm or harm to others. Please call 911 if you feel your mental health is worsening.? Prescriptions: No Action insulin lispro [Admelog U-100 Insulin lispro] 100 unit/mL Solution See Protocol subcut QIDACHS 30 Days Qty: 10 0RF Protocol: Insulin Correction Scale Less than or equal to 110 ---- Give (units): 0 111 to 150 Give (units): 0 151 to 200 Give (units): 2 201 to 250 Give (units): 4 251 to 300 Give (units): 6 301 to 350 Give (units): 8 Greater than 350 Give (units): 10 Call MD if Blood Glucose > : 350 Januvia 100 mg tablet 100 mg PO DAILY 30 Days Qty: 30 0RF metformin 1,000 mg tablet 1,000 mg PO BID melatonin 10 mg tablet 10 mg PO BEDTIME aspirin 81 mg tablet,delayed release (DR/EC) 81 mg PO DAILY quetiapine 50 mg tablet 50 mg PO BID PRN (Reason: AGITATION/RACING THOUGHTS) quetiapine 400 mg tablet 400 mg PO DAILY@1700 gabapentin 300 mg capsule 300 mg PO TID albuterol sulfate 90 mcg/actuation HFA aerosol inhaler 2 puff INHALATION QID PRN (Reason: wheezing) trazodone 50 mg tablet 50 mg PO BEDTIME PRN (Reason: Sleep) atorvastatin 40 mg tablet 20 mg PO DAILY paroxetine HCl 20 mg Tablet 40 mg PO DAILY hydroxyzine pamoate 50 mg capsule 50 mg PO BID PRN (Reason: Anxiety) cyclobenzaprine 10 mg tablet 10 mg PO BID PRN (Reason: Muscle Spasm) naproxen 375 mg tablet 375 mg PO BID ondansetron 4 mg tablet,disintegrating 4 mg PO Q8H PRN (Reason: Nausea And Vomiting) acetaminophen 500 mg tablet 1,000 mg PO Q6H PRN (Reason: mild pain) pantoprazole 40 mg tablet,delayed release (DR/EC) 40 mg PO BID ibuprofen 200 mg tablet 400 mg PO Q6H PRN (Reason: fever) docusate sodium 100 mg capsule 100 mg PO Q12H insulin glargine [Lantus U-100 Insulin] 100 unit/mL solution 15 unit subcut BEDTIME omeprazole 20 mg capsule,delayed release(DR/EC) 20 mg PO DAILY Qty: 30 0RF famotidine [Pepcid] 20 mg tablet 20 mg PO BID Qty: 28 0RF polyethylene glycol 3350 [Miralax] 17 gram/dose powder 17 g PO DAILY Qty: 119 0RF docusate sodium [Colace] 100 mg capsule 100 mg PO DAILY Qty: 14 0RF sucralfate [Carafate] 100 mg/mL suspension 10 ml PO QID PRN (Reason: indigestion) Qty: 300 0RF Rx Instructions: swish in mouth and swallow; use after food/drink Interventions: [place]-Suicide Risk Severity Scale Last Done: 12/18/24 20:03 Print Language: Georgian
[2024-12-18 20:47] LABS: MANUAL DIFF FLAG NO
--- OUTSIDE RECORDS SUMMARY | 2024-12-18 20:50 | XMS_ITS | Encounter Summary ---
Author Organization [employer] Address [address] [place] [address] Care Team Providers Care Pharmacology Teacher Name Role Phone Yoel Parrish MD Primary Care Provider [phone] Encounter Details Date Type Department Care Team (Late st Contact Info) Description 08/26/2024 Lab Requisition [facility] - Main Lab [address] [facility] [place] [address] [facility] [address] [place] [address] [phone] Other shelter (current) drug therapy Social History Tobacco Use [...] ed Within the last 3 months, ho ta many times did you visit the emergency [...] for your loved ones. For example, childcare provider or elderly care for an older adult? 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
--- OUTSIDE RECORDS SUMMARY | 2024-12-18 20:50 | XMS_ITS ---
Author Organization [facility] Address [address] [place] [phone] Phone Care Team Providers Care Debubblizer Name Role Phone Yoel Parrish MD Primary Care Provider [phone] [facility] - Food Insecurity Status:Ongoing (Active) Start date:04/11/2024 Enrollment date:04/11/2024 Enrollment reason:Walk-in Related social drivers of health:Food Risk Related program episode:Community Health Worker Program (Closed) Overview Community Health Worker Program - Food Insecurity Service Episode Case Team Name Relationship Phone Vu Chicas(Responsible Staff) Community He alth Worker Continued Care and Services Coordination
--- OUTSIDE RECORDS SUMMARY | 2024-12-18 20:50 | XMS_ITS | Encounter Summary ---
Author Organization [employer] Address [address] [place] [address] Care Team Providers Care Fish Agent Name Role Phone oYel Parrish MD Primary Care Provider [phone] Encounter Details Date Type Department Care Team (Late st Contact Info) Description 08/29/2024 Lab Requisition [facility] - Main Lab [address] [facility] [place] [address] [facility] [address] [place] [address] [phone] Other halfway (current) drug therapy Social History [...] care for your loved ones. 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 [...] 10:39 PM EDT Hannah Burnham RN * [place] Suicide Severity Rating Scale (Screener/Recent Self-Report) Question Answer Date of Assessment Author 1. Wish to be (Past 1 Month) No 025 10:39 PM EDT Hannah Burnham RN 2. Non-Specific Active Suici sanyd Thoughts (Past 1 Month) No 09/01/2024 10:39 [...] PANEL Routine 08/29/2024 7:00 AM EDT Other long term care administrator (current) drug therapy documented in this encounter Results * (ABNORMAL) Basic metabolic panel (08/29/2024 7:00 AM EDT) Pathologist [facility] Sodium 138 133 - 145 mmol/L LAB CHEMISTRY METHOD 08/29/2024 11:26 AM T [facility] Potassium 4.4 3.5 - 5.5 mmol/L LAB CHEMISTRY METHOD 08/29/2024 11:26 AM T [facility] Chloride 104 96 - 110 mmol/L LAB CHEMISTRY METHOD 08/29/2024 11:26 AM T [facility] CO2 28 21 - 32 mmol/L LAB CHEMISTRY METHOD 08/29/2024 11:26 AM [facility] Anion Gap 6 3 - 11 LAB CHEMISTRY METHOD 08/29/2024 11:26 AM [facility] Glucose 175(H) 70 - 100 mg/dL LAB CHEMISTRY METHOD 08/29/2024 11:26 AM [facility] BUN 19 5 - 25 mg/dL LAB CHEMISTRY METHOD 08/29/2024 11:26 AM [facility] Creatinine 1.06 0.70 - 1.30 mg/dL LAB CHEMISTRY METHOD 08/29/2024 11:26 AM [facility] eGFR 81 >=60 mL/min/1. 73m2 LAB CHEMISTRY METHOD 08/29/2024 11:26 AM [facility] Comment:Calculation based on the Chronic Kidney Disease Epidemiology Collaboration (CKD-EPI) equation refit without adjustment for race. BUN/Creatinine Ratio 17.9 LAB CHEMISTRY METHOD 08/29/2024 11:26 AM [facility] Calcium 8.7 8.5 - 10.5 mg/dL LAB CHEMISTRY METHOD 08/29/2024 11:26 AM [facility] Blood Venous blood specimen / Unknown Venipuncture / Unknown 08/29/2024 7:00 AM EDT 08/29/2024 10:10 AM EDT [facility] LAB BLOOD ORDERABLES Final Resul t [facility] [address] [place] [address], documented in this encounter Visit Diagnoses Diagnosis Other halfway (current) drug therapy documented in this encounter Care Teams Fish Agent Relationship Specialty Start Date End Date Yoel Parrish [facility] [place] [id number] PCP - General Internal Medicine 01/27/24 documented as of this encounter
--- OUTSIDE RECORDS SUMMARY | 2024-12-18 20:50 | XMS_ITS | Clinical Summary ---
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 6:35 AM EDT [facility] Blood Venous blood specimen / Unknown Venipuncture / Unknown 11/19/2024 6:05 AM EDT 11/19/2024 6:11 AM EDT Ally LA LAB BLOOD ORDERABLES Fin al Result [facility] [address] [place] [address], * (ABNORMAL) Basic metabolic panel (11/03/2024 7:47 PM EDT) [facility] Sodium 136 133 - 145 mmol/L LAB CHEMISTRY METHOD 11/03/2024 8:53 PM [facility] Potassium 4.2 3.5 - 5.5 mmol/L LAB CHEMISTRY METHOD 11/03/2024 8:53 PM [facility] Chloride 101 96 - 110 mmol/L LAB CHEMISTRY METHOD 11/03/2024 8:53 PM [facility] CO2 30 21 - 32 mmol/L LAB CHEMISTRY METHOD 11/03/2024 8:53 PM [facility] Anion Gap 5 3 - 11 LAB CHEMISTRY METHOD 11/03/2024 8:53 PM [facility] Glucose 202(H) 70 - 100 mg/dL LAB CHEMISTRY METHOD 11/03/2024 8:53 PM [facility] BUN 27(H) 5 - 25 mg/dL LAB CHEMISTRY METHOD 11/03/2024 8:53 PM [facility] Creatinine 1.08 0.70 - 1.30 mg/dL LAB CHEMISTRY METHOD 11/03/2024 8:53 PM [facility] eGFR 80 >=60 mL/min/1. 73m2 LAB CHEMISTRY METHOD 11/03/2024 8:53 PM EDT [facility] Comment:Calculation based on the Chronic Kidney Disease Epidemiology Collaboration (CKD-EPI) equation refit without adjustment for race. BUN/Creatinine Ratio 25.0 LAB CHEMISTRY METHOD 11/03/2024 8:53 PM EDT [facility] Calcium 9.4 8.5 - 10.5 mg/dL LAB CHEMISTRY METHOD 11/03/2024 8:53 PM EDT [facility] Blood Venous blood specimen / Unknown Venipuncture / Unknown 11/03/2024 7:47 PM EDT 11/03/2024 8:24 PM EDT us Charles Wilhelm MD LAB BLOOD ORDERABLES Final Result [facility] [address] [place] [address], * XR Hand 3+ Views Right (10/04/2024 12:43 AM EDT) Anatomical Region Laterality Modality Upper Extremities, Hand Right Radiogra phic Imaging 10/04/2024 6:58 AM EDT Impressions 10/04/2024 7:01 AM EDT No fracture or subluxation of the hand. Please note that carpal region injuries can be radiographically occult. -------- FINAL REPORT -------- Dictated By: Ethan Dimsa Dictated Date: 10/04/2024 06:58 ET Assigned Physician: Ethan Dimas Reviewed and Electronically Signed By: Ethan Dimas Signed Date: 10/04/2024 07:01 ET Workstation ID: [id number] Transcribed By: Self Edit Transcribed Date: 10/04/2024 [...] Signed Date: 10/04/2024 07:01 ET Workstation ID: [id number] Transcribed By: Self Edit Transcribed Date: 10/04/2024 06:58 ET Pilar Landeros MD IMG XR PROCEDURES Final Result * ECG 12 lead (10/04/2024 12:10 AM EDT) Ventricular Rate ECG 95 BPM GEMUSE Atrial Rate 95 BPM GEMUSE P-R Interval 136 ms GEMUSE QRS Duration 88 ms GEMUSE Q-T Interval 368 ms GEMUSE QTc 462 ms GEMUSE P Wave [place] 46 degrees GEMUSE R [place] 56 degrees GEMUSE T [place] 21 degrees GEMUSE ECG Interpretation Normal sinus [...] Mondragon MD on 09/29/2024 01:37:39 Lory Silva CHEMICAL EQUIPMENT SALES ENGINEER IMG CT PROCEDURES Final R esult from Last 3 Months Insurance MEDICARE Member Subscriber Plan / Payer (Ef fective 2024-Present) Name:ANDREAS MEDRANO Relation to Subscriber:Self Name:Andreas Medrano Payer ID:[id number] Group ID:[id number] Type:Not on file Address: [facility] [address] [id number] Care Teams Airplane Flight Attendant Relationship Specialty Start Date End Date Yoel Parrish MD [address] [place] [phone] PCP - General Internal Medicine 01/27/24
--- OUTSIDE RECORDS SUMMARY | 2024-12-18 20:50 | XMS_ITS | Encounter Summary ---
Author Organization [employer] Address [address] [place] [address] Care Team Providers Care Core Stripper Name Role Phone Yoel Parrish MD Primary Care Provider [phone] [phone] Encounter Details Date Type Department Care Team (Late st Contact Info) Description 11/23/2024 Lab Requisition [facility] - Main Lab [address] [facility] [place] [address] Ally Gibson NP [address] [place] [address] Other pole classifier (current) drug therapy Social History Tobacco Use [...] care for your loved ones. For example, registered nurse maternal child or elderly care for an older [...] LDL Routine 11/23/2024 7:00 AM EDT Other pole classifier (current) drug therapy HEMOGLOBIN A1C Routine 11/23/2024 7:00 AM EDT Other pole classifier (current) drug therapy GLUCOSE, RANDOM Routine 11/23/2024 7:00 AM EDT Other fdc (current) drug therapy documented in this encounter Results * (ABNORMAL) Hemoglobin A1c (11/23/2024 7:00 AM EDT) Hemoglobin A1C 8.5(H) <6.5 % LAB CHEMISTRY METHOD 11/23/2024 12:17 PM EDT [facility] Mean Bld Glu Estim. 197 mg/dL LAB CHEMISTRY METHOD 11/23/2024 12:17 PM EDT [facility] Blood Venous blood specimen / Unknown Venipuncture / Unknown 11/23/2024 7:00 AM EDT 11/23/2024 10:28 AM EDT us Ally Gibson NP LAB BLOOD ORDERABLES Final Resul t [facility] [address] [place] [address], * (ABNORMAL) Glucose, random (11/23/2024 7:00 AM EDT) Glucose 216(H) 70 - 100 mg/dL LAB CHEMISTRY METHOD 11/23/2024 12:02 PM T [facility] Blood Venous blood specimen / Unknown Venipuncture / Unknown 11/23/2024 7:00 AM EDT 11/23/2024 10:28 AM EDT Ally Gibson NP LAB BLOOD ORDERABLES Final Resul t [facility] [address] [place] [address], [place] [phone] * (ABNORMAL) Lipid panel with reflex to direct LDL (11/23/2024 7:00 AM EDT) Cholesterol 160 0 - 200 mg/dL LAB CHEMISTRY METHOD 11/23/2024 12:02 PM [facility] Triglycerides 211(H) 0 - 150 mg/dL LAB CHEMISTRY METHOD 11/23/2024 12:02 PM [facility] HDL 38(L) >=40 mg/dL LAB CHEMISTRY METHOD 11/23/2024 12:02 PM [facility] LDL Calculated 80 0 - 100 mg/dL LAB CHEMISTRY METHOD 11/23/2024 12:02 PM [facility] Comment:Estimated LDL Calcul ated using equation: Total cholesterol - HDL cholesterol - (Triglycerides/5) VLDL Cholesterol Hong 42.2 mg/dL LAB CHEMISTRY METHOD 11/23/2024 12:02 PM [facility] Non HDL Chol. (LDL+VLDL) 122 <145 mg/dL LAB CHEMISTRY METHOD 11/23/2024 12:02 PM [facility] Chol/HDL Ratio 4.2 0.0 - 4.4 LAB CHEMISTRY METHOD 11/23/2024 12:02 PM [facility] Blood Venous blood specimen / Unknown Venipuncture / Unknown 11/23/2024 7:00 AM EDT 11/23/2024 10:28 AM EDT us Ally Gibson BUILDING GUARD DEPUTY SHERIFF LAB BLOOD ORDERABLES Final Resul t [facility] [address] [place] [address], documented in this encounter Visit Diagnoses Diagnosis Other pole classifier (current) drug therapy documented in this encounter Care Teams Core Stripper Relationship Specialty Start Date End Date Yoel Parrish MD [address] [place] [phone] PCP - General Internal Medicine 01/27/24 documented as of this encounter
--- OUTSIDE RECORDS SUMMARY | 2024-12-18 20:50 | XMS_ITS ---
Author Organization [facility] Address [address] [place] [phone] Phone Care Team Providers Care Mine Exploration Engineer Name Role Phone Yoel Parrish MD Primary Care Provider [phone] [phone] [facility] - Housing Status:Ongoing (Active) Start date:04/11/2024 Enrollment date:04/11/2024 Enrollment reason:Walk-in Related social drivers of health:Housing Instability Related program episode:Community Health Worker Program (Closed) Overview Housing service of Community Health Worker Program Case Team Name Relationship Phone Vu Chicas(Responsible Staff) Community He alth Worker Continued Care and Services Coordination
--- OUTSIDE RECORDS SUMMARY | 2024-12-18 20:50 | XMS_ITS | Clinical Summary ---
Author Organization [facility] Address [address] [facility] [address] [place] [address] Phone Care Team Providers Care Supply Manager Name Role Phone Pcp, Unknown Primary Care [...] EDT) SODIUM 134 133 - 146 mmol/L [facility] CHLORIDE 99 96 - 108 mmol/L [facility] POTASSIUM 4.2 3.3 - 5.1 mmol/L [facility] CO2 23 21 - 35 mmol/L [facility] BUN 27(H) 6 - 19 mg/dL [facility] CREATININE 1.20 0.5 - 1.5 mg/dL [facility] GLUCOSE 329(H) 70 - 99 mg/dL [facility] CALCIUM 9.2 8.4 - 10.3 mg/dL [facility] EGFR 70 >59 mL/min/1.7 3m2 [facility] Comment:Estimated glomerular filtration rate calculated using the CKD-EPI refit equation. ANION GAP 16 10 - 20 mmol/L [facility] Blood 09/04/2024 4:28 AM EDT 09/04/2024 4:30 AM EDT us Brenda Sofia MD LAB BLOOD ORDERABLES Final R esult [address] [address] from Last 3 Months or Most Recently Relevant to Health Maintenance Insurance MEDICARE REPLACEMENT MEDICARE REPLACEMENT MEDICARE REPLACEMENT MEDICARE REPLACEMENT MEDICARE REPLACEMENT MEDICARE REPLACEMENT Care Teams Supply Manager Relationship Specialty Start Date End Date Pcp, Unknown PCP - General 07/16/24 Additional Source Comments The information contained in this document represents components of the legal health record. It is not the complete legal health record.[facility]
--- OUTSIDE RECORDS SUMMARY | 2024-12-18 20:50 | XMS_ITS | Encounter Summary ---
Author Organization [employer] Address [address] [place] [address] Care Team Providers Care Sports Team Manager Name Role Phone Yoel Parrish MD Primary Care Provider [phone] Encounter Details Date Type Department Care Team (Late st Contact Info) Description 08/29/2024 Lab Requisition [facility] - Main Lab [address] [facility] [place] [address] [facility] [address] [place] [address] Social History Tobacco Use Types Packs/Day Years [...] your loved ones. For example, child development instructor or elderly care for an older adult? [...] Author No 08/24/2024 3:28 PM EDMarcela Almanzar, MILA * Because of a physical, mental, or emotional condition, do you have serious difficulty doing errandsalone such as visiting the doctor? Answer Date of Assessment Author No 08/24/2024 3:28 PM EDT Marcela Dimas RN * Calculated C-SSRS Risk Score (Lifetime/Recent) Answer Date of Assessment Author No Risk Indicated 09/01/2024 10:39 PM EDT Hannah Burnham RN * [place]offey Suicide Severity Rating Scale (Screener/Recent Self-Report) Question [...] on filedocumented in this encounter Care Teams Sports Team Manager Relationship Specialty Start Date End Date Yoel Parrish MD [address] [place] [phone] PCP - General Internal Medicine 01/27/24 documented as of this encounter
--- OUTSIDE RECORDS SUMMARY | 2024-12-18 20:50 | XMS_ITS | Encounter Summary ---
Author Organization [employer] Address [address] [place] [address] Care Team Providers Care Manufacturing Engineering Professor Name Role Phone Yoel Parrish MD Primary Care Provider [phone] [phone] Encounter Details Date Type Department Care Team (Late st Contact Info) Description 08/26/2024 Lab Requisition [facility] - Main Lab 299 [facility] [place] [address] [facility] [address] [place] [phone] Social History Tobacco Use Types Packs/Day Years [...] on filedocumented in this encounter Care Teams Manufacturing Engineering Professor Relationship Specialty Start Date End Date Yoel Parrish MD [address] [place] [phone] PCP - General Internal Medicine 01/27/24 documented as of this encounter
--- OUTSIDE RECORDS SUMMARY | 2024-12-18 20:50 | XMS_ITS | Encounter Summary ---
Author Organization [employer] Address [address] [place] [address] Care Team Providers Care Factory Helper Name Role Phone Yoel Parrish MD Primary Care Provider [phone] [phone] Encounter Details Date Type Department Care Team (Late st Contact Info) Description 11/23/2024 Lab Requisition [facility] - Main Lab [address] [facility] [place] [address] Ally Gibson NP [address] [place] [address] Social History Tobacco Use Types [...] on filedocumented in this encounter Care Teams Factory Helper Relationship Specialty Start Date End Date Yoel Parrish MD [address] [place] [phone] PCP - General Internal Medicine 01/27/24 documented as of this encounter
--- OUTSIDE RECORDS SUMMARY | 2024-12-18 20:50 | XMS_ITS ---
Author Organization [facility] Address [address] [place] [phone] Phone Care Team Providers Care Contract Project Manager Name Role Phone Yoel Parrish MD Primary Care Provider +1 -[phone] [facility] - Behavioral Health Status:Ongoing (Active) Start date:04/11/2024 Enrollment date:04/11/2024 Enrollment reason:Walk-in Related program episode:Community Health Worker Program (Closed) Overview Behavior Health service of Community Health Worker Program Case Team Name Relationship Phone Vu Chicas(Responsible Staff) Community He alth Worker Continued Care and Services Coordination
--- OUTSIDE RECORDS SUMMARY | 2024-12-18 20:50 | XMS_ITS | Encounter Summary ---
Author Organization [employer] Address [address] [place] [address] Care Team Providers Care Photo Graphics Librarian Name Role Phone Yoel Parrish MD Primary Care Provider +1 [phone] Encounter Details Date Type Department Care Team (Late st Contact Info) Description 08/05/2024 Lab Requisition [facility] - Main Lab 299 [facility] [place] [address] Annie Barraza, TOWER TECHNICIAN [address] [place], [place] [phone] Other jail (current) drug therapy Social History Tobacco Use [...] care for your loved ones. For example, residential child care counselor or elderly care for an older [...] LDL Routine 08/05/2024 7:00 AM EDT Other jail (current) drug therapy HEMOGLOBIN A1C Routine 08/05/2024 7:00 AM EDT Other jail (current) drug therapy documented in this encounter Results * (ABNORMAL) Hemoglobin A1c (08/05/2024 7:00 AM EDT) Hemoglobin A1C 8.4(H) <6.5 % LAB CHEMISTRY METHOD 08/05/2024 1:51 PM EDT [facility] Mean Bld Glu Estim. 194 mg/dL LAB CHEMISTRY METHOD 08/05/2024 1:51 PM EDT [facility] Blood Venous blood specimen / Unknown Venipuncture / Unknown 08/05/2024 7:00 AM EDT 08/05/2024 9:58 AM EDT us Annie Barraza TOWER TECHNICIAN LAB BLOOD ORDERABLES Final Re sult [facility]) [facility] [address] [place] [address], [place] [phone] * (ABNORMAL) Lipid panel with reflex to direct LDL (08/05/2024 7:00 AM EDT) Cholesterol 181 0 - 200 mg/dL LAB CHEMISTRY METHOD 08/05/2024 11:26 AM EDT [facility] Triglycerides 306(H) 0 - 150 mg/dL LAB CHEMISTRY METHOD 08/05/2024 11:26 AM [facility] HDL 26(L) >=40 mg/dL LAB CHEMISTRY METHOD 08/05/2024 11:26 AM [facility] LDL Calculated 94 0 - 100 mg/dL LAB CHEMISTRY METHOD 08/05/2024 11:26 AM EDT [facility] VLDL Cholesterol Hong 61.2 mg/dL LAB CHEMISTRY METHOD 08/05/2024 11:26 AM [facility] Non HDL Chol. (LDL+VLDL) 155(H) <145 mg/dL LAB CHEMISTRY METHOD 08/05/2024 11:26 AM [facility] Chol/HDL Ratio 7.0(H) 0.0 - 4.4 LAB CHEMISTRY METHOD 08/05/2024 11:26 AM [facility] Blood Venous blood specimen / Unknown Venipuncture / Unknown 08/05/2024 7:00 AM EDT 08/05/2024 9:58 AM EDT us Annie Barraza TOWER TECHNICIAN LAB BLOOD ORDERABLES Final Re sult [facility] [address] [place] [address], documented in this encounter Visit Diagnoses Diagnosis Other jail (current) drug therapy documented in this encounter Care Teams Photo Graphics Librarian Relationship Specialty Start Date End Date Yoel Parrish MD [address] [place] [phone] PCP - General Internal Medicine 01/27/24 documented as of this encounter
[2024-12-18 20:56] LABS: Hematocrit 40.0 % (42.0-52.0); Hemoglobin 13.3 g/dl (14.0-18.0); Imm Gran Abs Auto 0.03 X10*3/uL (0.00-0.03); Imm Gran Pct Auto 0.3 % (0.0-0.4); Lymphocytes Absolute Auto 1.6 X10*3/uL (1.2-4.9); Mean Corpuscular HGB Conc 33.3 g/dl (31.0-36.0); Mean Corpuscular Hemoglobin 26.7 pg (27.0-33.0); Mean Corpuscular Volume 80.3 fL (80.0-98.0); NRBC Abs Auto 0.000 X10*3/uL (0.0-0.012); NRBC Pct Auto 0.0 /100WBC (0.0-0.2); Platelet Count 293 X10*3/uL (160-400); Red Blood Count 4.98 X10*6/uL (4.60-5.80); White Blood Count 11.6 X10*3/uL (4.8-10.8)
[2024-12-18 21:19] LABS: Albumin Level 4.6 g/dL (3.5-5.0); Alkaline Phosphatase 95 U/L (39-117); Anion Gap 16 (12-20); Aspartate Amino Transferase 27 U/L (5-37); Blood Urea Nitrogen 17 mg/dL (9-16); Calcium 9.1 mg/dL (8.4-10.2); Carbon Dioxide 22 mmol/L (22-29); Chloride 104 mmol/L (96-108); Creatinine Clr Calc Pharmacy 69.9; Estimated Glomerular Filt Rate > 60; Potassium 4.1 mmol/L (3.3-5.1); Sodium 138 mmol/L (135-145); Total Protein 8.0 g/dL (6.5-8.0)
[2024-12-18 21:37] LABS: Alanine Aminotransferase 27 U/L (0-40)
--- NOTE | 2024-12-18 21:40 | PC.NURSE ---
Pt came in from triage. Pt a&ox4, no signs of distress Pt requested and given drink Plan of care ongoing.
[2024-12-18 21:44] LABS: Appearance Urine Clear; Glucose Urine UA Negative (Negative); PH 5.5 (5.0-9.0); Specific Gravity - Urine 1.025 (1.005-1.025); UMIC TRIGGER UACC YES
[2024-12-18 21:51] LABS: COVID-19 Test Negative (Negative); IDNOW Serial# 08D9AD1C
[2024-12-18 21:53] LABS: Cannabinoid Screen Urine Not Detected (Not Detect)
--- NOTE | 2024-12-18 22:02 | PC.NURSE ---
Pt reports 7/10 pain in his head and feet. Plan of care ongoing.
--- NOTE | 2024-12-18 22:10 | MHC.CARE ---
Pt has been referred to [facility].
--- NOTE | 2024-12-19 04:43 | PC.NURSE ---
Took over care at 23:00, pt was medicated during the evening, pt sleeping no sign of distress.
--- NOTE | 2024-12-19 07:14 | PC.NURSE ---
Assumed care, report received. Pt is currently eating breakfast.
[2024-12-19 07:39] LABS: Glucose, Whole Blood 231 mg/dL (60-115)
[2024-12-19 08:54] VITALS: BP 126/68; PULSE 88; RESP 16; TEMP 36.2; O2SAT 97
--- NOTE | 2024-12-19 11:40 | PHA.MEDREC ---
Pharmacy Consult ? Medication Reconciliation Pharmacy has completed the medication reconciliation. Patient brought in his medication bottles. There were multiple of the same medications with different directions. Entered in med rec the most recently filled medications and directions. Patient reports using naproxen 500 mg (375 mg dose was not found) as needed for back spasms. He uses melatonin as needed. He confirmed lantus 15 units at bedtime and sliding scale for lispro. Pantoprazole bottle was not found but patient reports he takes at home twice daily. He takes melatonin as needed. There is a bottle of Augmentin within his medications, patient reports starting this recently and not when he picked them up, added to med rec.
== END 2024-12-19 12:04 | disposition other institution (70) ==
PROVIDERS: Registered Nurse Emergency; Emergency Provider Emergency Medicine
DX: F20.89 Other schizophrenia (principal); R45.851 Suicidal ideations; S60.221A Contusion of right hand, initial encounter; X58.XXXA Exposure to other specified factors, initial encounter; Y93.9 Activity, unspecified; Y92.9 Unspecified place or not applicable; Y99.9 Unspecified external cause status; Z59.10 Inadequate housing, unspecified; E11.9 Type 2 diabetes mellitus without complications; Z79.4 Long term (current) use of insulin
CPT/HCPCS: 36415; 73130; 80053; 80307; 81001; 82947; 85025; 87635; 99285; S9485

== ENCOUNTER → 2024-12-18 22:41 | Outpatient (BNV) | payer OTHER, SELFPAY | PROVIDERS: Emergency Provider Emergency Medicine; Visit Provider Radiology Diagnostic Radiology | DX: M79.641 Pain in right hand (principal) | CPT/HCPCS: 73130 ==

== ENCOUNTER 2024-12-20 23:35 | Emergency (ER) | payer OTHER, SELFPAY ==
--- NOTE | ~2024-12-20 | XR_ITS ---
CLINICAL HISTORY: trauma 3 views lumbar spine Comparison: CT/SR - CT ABDOMEN PELVIS W IV CON - 12/16/24 01:33 EDT Findings: The alignment of the lumbar spine is normal. Vertebral body heights are normal. No fracture is seen. There is mild L2-3 degenerative disc disease. Impression: No acute findings. This document has been electronically signed by: Sushil Garcia MD on 12/21/2024 04:18:20
[2024-12-20 23:51] VITALS: BP 127/87; PULSE 102; RESP 18; TEMP 36.2; O2SAT 97; BMI 28.2
--- OUTSIDE RECORDS SUMMARY | 2024-12-21 00:06 | XMS_ITS | Clinical Summary ---
Author Organization [facility] Address [address] [facility] [address] [place] [phone] Phone Care Team Providers Care Nail Making Machine Setter Name Role Phone Pcp, Unknown Primary Care [...] EDT) SODIUM 134 133 - 146 mmol/L [facility] CHLORIDE 99 96 - 108 mmol/L [facility] POTASSIUM 4.2 3.3 - 5.1 mmol/L [facility] CO2 23 21 - 35 mmol/L [facility] BUN 27(H) 6 - 19 mg/dL [facility] CREATININE 1.20 0.5 - 1.5 mg/dL [facility] GLUCOSE 329(H) 70 - 99 mg/dL [facility] CALCIUM 9.2 8.4 - 10.3 mg/dL [facility] EGFR 70 >59 mL/min/1.7 3m2 [facility] Comment:Estimated glomerular filtration rate calculated using the CKD-EPI refit equation. ANION GAP 16 10 - 20 mmol/L [facility] Blood 09/04/2024 4:28 AM EDT 09/04/2024 4:30 AM EDT us Brenda Sofia MD LAB BLOOD ORDERABLES Final R esult [address] [address] from Last 3 Months or Most Recently Relevant to Health Maintenance Insurance MEDICARE REPLACEMENT MEDICARE REPLACEMENT MEDICARE REPLACEMENT MEDICARE REPLACEMENT MEDICARE REPLACEMENT MEDICARE REPLACEMENT Care Teams Nail Making Machine Setter Relationship Specialty Start Date End Date Pcp, Unknown PCP - General 07/16/24 Additional Source Comments The information contained in this document represents components of the legal health record. It is not the complete legal health record.[facility]
[2024-12-21 00:11] LABS: MANUAL DIFF FLAG NO
[2024-12-21 00:12] LABS: Hematocrit 36.6 % (42.0-52.0); Hemoglobin 12.1 g/dl (14.0-18.0); Imm Gran Abs Auto 0.02 X10*3/uL (0.00-0.03); Imm Gran Pct Auto 0.3 % (0.0-0.4); Lymphocytes Absolute Auto 1.9 X10*3/uL (1.2-4.9); Mean Corpuscular HGB Conc 33.1 g/dl (31.0-36.0); Mean Corpuscular Hemoglobin 26.5 pg (27.0-33.0); Mean Corpuscular Volume 80.3 fL (80.0-98.0); NRBC Abs Auto 0.000 X10*3/uL (0.0-0.012); NRBC Pct Auto 0.0 /100WBC (0.0-0.2); Platelet Count 252 X10*3/uL (160-400); Red Blood Count 4.56 X10*6/uL (4.60-5.80); White Blood Count 7.1 X10*3/uL (4.8-10.8)
[2024-12-21 00:13] LABS: Appearance Urine Clear; Glucose Urine UA 100 mg/dL (Negative); PH 5.5 (5.0-9.0); Specific Gravity - Urine >= 1.030 (1.005-1.025)
[2024-12-21 00:27] LABS: Anion Gap 13 (12-20); Blood Urea Nitrogen 22 mg/dL (9-16); Calcium 9.4 mg/dL (8.4-10.2); Carbon Dioxide 24 mmol/L (22-29); Chloride 107 mmol/L (96-108); Creatinine Clr Calc Pharmacy 77.3; Estimated Glomerular Filt Rate > 60; Potassium 4.2 mmol/L (3.3-5.1); Sodium 140 mmol/L (135-145)
--- NOTE | 2024-12-21 05:53 | ED.GENADULT ---
HPI - General Adult General Chief complaint: Fall Stated complaint: lower back pain Time Seen by Provider: 12/21/24 02:52 Source: patient Limitations: no limitations History of Present Illness ED Provider: Eleanor Gamboa PA-C HPI narrative: 59-year-old male with a history of schizophrenia, housing insecurity, polysubstance presents with multiple complaints. Patient states he slipped and fell on the sidewalk 2 days ago. At that time he states he did hit his head. He denies loss of consciousness, he does not use blood thinners. He complains of ongoing low back pain since the fall. Denies urinary retention, bowel incontinence, weakness of lower extremities, radiation of pain or paresthesia. Patient does complain of discoloration of his urine and ongoing constipation, last bowel movement was 2 days ago. Denies abdominal distention, nausea vomiting or inability to pass flatus. Related Data Home Medications ?Medication ?Instructions ?Recorded ?Confirmed melatonin 10 mg tablet 10 mg PO BEDTIME PRN Sleep 06/28/24 12/19/24 metformin 1,000 mg tablet 1,000 mg PO BID 06/28/24 12/19/24 albuterol sulfate 90 mcg/actuation 2 puff inhalation QID PRN wheezing 09/06/24 12/19/24 aerosol inhaler aspirin 81 mg tablet,delayed 81 mg PO DAILY 09/06/24 12/19/24 release atorvastatin 40 mg tablet 40 mg PO DAILY 09/06/24 12/19/24 gabapentin 300 mg capsule 300 mg PO BID neuropathy 09/06/24 12/19/24 quetiapine 400 mg tablet 400 mg PO BEDTIME 09/06/24 12/19/24 quetiapine 50 mg tablet 50 mg PO BID PRN AGITATION/RACING 09/06/24 12/19/24 THOUGHTS trazodone 50 mg tablet 50 mg PO BEDTIME PRN Sleep 09/06/24 12/19/24 hydroxyzine pamoate 50 mg capsule 50 mg PO TID PRN Anxiety 10/24/24 12/19/24 paroxetine HCl 20 mg tablet 40 mg PO DAILY 10/24/24 12/19/24 acetaminophen 500 mg tablet 1,000 mg PO Q6H PRN mild pain 11/20/24 12/19/24 cyclobenzaprine 10 mg tablet 10 mg PO TID PRN Muscle Spasm 11/20/24 12/19/24 ibuprofen 200 mg tablet 400 mg PO Q6H PRN fever 11/20/24 12/19/24 insulin glargine 100 unit/mL 15 unit subcut BEDTIME diabetes 11/20/24 12/19/24 subcutaneous solution (Lantus mellitus U-100 Insulin) pantoprazole 40 mg tablet,delayed 40 mg PO BID 11/20/24 12/19/24 release amoxicillin 875 mg-potassium 1 tab PO Q12H 12/19/24 12/19/24 clavulanate 125 mg tablet fluticasone 100 mcg-salmeterol 50 1 ea inhalation DAILY 12/19/24 12/19/24 mcg/dose blistr powdr for inhalation naproxen 500 mg tablet 500 mg PO BID PRN back spasms 12/19/24 12/19/24 nicotine 21 mg/24 hr daily 1 patch topical DAILY 12/19/24 12/19/24 transdermal patch olanzapine 10 mg tablet 10 mg PO BEDTIME 12/19/24 12/19/24 trazodone 100 mg tablet 100 mg PO BEDTIME 12/19/24 12/19/24 Previous Rx's ?Medication ?Instructions ?Recorded insulin lispro 100 unit/mL See Protocol subcut QIDACHS 30 06/15/24 subcutaneous solution (Admelog days #10 mL U-100 Insulin lispro) sitagliptin phosphate 100 mg 100 mg PO DAILY 30 days #30 tabs 06/15/24 tablet (Januvia) sucralfate 100 mg/mL oral 10 ml PO QID PRN indigestion #300 12/05/24 suspension (Carafate) mL docusate sodium 100 mg capsule 100 mg PO DAILY #14 caps 12/16/24 (Colace) famotidine 20 mg tablet (Pepcid) 20 mg PO BID #28 tabs 12/16/24 polyethylene glycol 3350 17 17 g PO DAILY #119 grams 12/16/24 gram/dose oral powder (Miralax) Allergies Allergy/AdvReac Type Severity Reaction Status Date / Time glipizide (GLIPIZIDE) Allergy Intermediate ITCHY Verified 12/20/24 23:53 oxycodone Allergy Hives Verified 12/20/24 23:53 [facility] Past Medical History Medical History Asthma Depression MDD (major depressive disorder), recurrent episode, moderate Cocaine use disorder Substance-induced psychotic disorder Anxiety Diabetes Surgical History History of facial surgery H/O knee surgery Social History Social History Household Members: None Housing: Homeless Do you presently have visiting nurse or other home services: No Alcohol intake: current Alcohol intake frequency: does not drink Alcohol type: beer Patient Tobacco Use Status: Current everyday Tobacco user Tobacco use type: Cigarette Cigarette Packs Per Day: 1 Cigarettes Per Day: 20.0 Years Smoked: 35 e-Cigarette/Vaping Use: Former Use Second Hand Smoke Exposure: No Substance Use Type: Crack/Cocaine Advance Directives Date on File: 10/24/21 service: No Sexual orientation: Straight/Heterosexual Physical Exam ED Vital Signs: Vital Signs - 24 hr 12/20/24 23:51 Temperature 97.2 F Pulse Rate 102 H Respiratory Rate 18 Blood Pressure 127/87 Pulse Oximetry 97 Oxygen Delivery Method Room Air BMI result Body Mass Index 28.2 Medications Administered Discontinued Medications Generic Name Dose Route Start Last Admin Trade Name Freq PRN Reason Stop Dose Admin Acetaminophen 975 mg 12/21/24 02:43 12/21/24 02:52 Acetaminophen 325 Mg Tablet PO 12/21/24 02:44 975 mg ONCE ONE Administration Ibuprofen 600 mg 12/21/24 02:43 12/21/24 02:52 Ibuprofen 600 Mg Tablet PO 12/21/24 02:44 600 mg ONCE ONE Administration Medical Decision Making Medical Decision Making MDM Narrative: 59-year-old male with a history of schizophrenia, housing insecurity, polysubstance presents with multiple complaints. Patient states he slipped and fell on the sidewalk 2 days ago. At that time he states he did hit his head. He denies loss of consciousness, he does not use blood thinners. He complains of ongoing low back pain since the fall. Denies urinary retention, bowel incontinence, weakness of lower extremities, radiation of pain or paresthesia. Patient does complain of discoloration of his urine and ongoing constipation, last bowel movement was 2 days ago. Denies abdominal distention, nausea vomiting or inability to pass flatus. Denies headache, dizziness. Problem: Psychiatric illness, housing and security, polysubstance abuse History: Per patient I have considered the following differential diagnoses: Compression fracture, lumbar radiculopathy, cauda equina, constipation, bowel obstruction, UTI Plan: Screening labs and imaging of the lumbar spine were ordered from triage, everything is unremarkable, he does not have a urinary tract infection, he has no lab abnormalities. The patient is not having radicular symptoms he also has no red flag signs symptoms concerning for cord compression. In regard to his ongoing constipation, he still does have stool burden, without obstructive symptoms. Send with home care instructions. I have independently reviewed the following tests: Labs: No leukocytosis, not anemic, no electrolyte abnormality note, no urinary tract infection d X-ray lumbar spine:Findings: The alignment of the lumbar spine is normal. Vertebral body heights are normal. No fracture is seen. There is mild L2-3 degenerative disc disease. Impression: No acute findings. Differential Diagnosis Differential Diagnoses: The differential diagnosis associated with the presentation includes See [facility] Admission/Observation Consideration of admission/observation: Escalation of care including admission/observation considered Not applicable Lab Data [facility] Lab Attestation statement: I reviewed the patient's lab results. 12/21/24 00:05 12/21/24 00:05 Labs: Lab Results 12/21/24 12/21/24 Range/Units 00:05 00:06 WBC 7.1 (4.8-10.8) X10*3/uL RBC 4.56 L (4.60-5.80) X10*6/uL Hgb 12.1 L (14.0-18.0) g/dl Hct 36.6 L (42.0-52.0) % MCV 80.3 (80.0-98.0) fL MCH 26.5 L (27.0-33.0) pg MCHC 33.1 (31.0-36.0) g/dl RDW 14.2 (11.0-16.0) % Plt Count 252 (160-400) X10*3/uL MPV 9.5 (9.4-12.4) fL Immature Gran % (Auto) 0.3 (0.0-0.4) % Neut % (Auto) 59.6 (45-73) % Lymph % (Auto) 27.0 (20-40) % [place] % (Auto) 10.5 (2-11) % Eos % (Auto) 2.0 (0-4) % Baso % (Auto) 0.6 (0-2) % Lymph # (Auto) 1.9 (1.2-4.9) X10*3/uL [place] # (Auto) 0.7 (0.1-1.2) X10*3/uL Eos # (Auto) 0.1 (0.0-0.4) X10*3/uL Baso # (Auto) 0.0 (0.0-0.2) X10*3/uL Abs Immat Gran (auto) 0.02 (0.00-0.03) X10*3/uL Absolute Neuts (auto) 4.2 (2.0-8.3) x10*3/uL Absolute Nucleated RBC 0.000 (0.0-0.012) X10*3/uL Nucleated RBC % (auto) 0.0 (0.0-0.2) /100WBC Sodium 140 (135-145) mmol/L Potassium 4.2 (3.3-5.1) mmol/L Chloride 107 (96-108) mmol/L Carbon Dioxide 24 (22-29) mmol/L Anion Gap 13 (12-20) BUN 22 H (9-16) mg/dL Creatinine 1.03 (0.5-1.4) mg/dL Estim Creat Clear Calc 77.3 Estimated GFR > 60 Random Glucose 158 H (60-115) mg/dL Calcium 9.4 (8.4-10.2) mg/dL Urine Color Yellow Urine Appearance Clear Urine pH 5.5 (5.0-9.0) Ur Specific [place] >= 1.030 H (1.005-1.025) Urine Protein Trace (Neg-Trace) mg/dL Urine Glucose (UA) 100 H (Negative) mg/dL Urine Ketones Trace (Negative) mg/dL Urine Blood Negative (Negative) Urine Nitrite Negative (Negative) Ur Leukocyte Esterase Negative (Negative) Radiology Impression Discussion of test interpretation with radiology: I have reviewed the radiologist's reading. Discharge Plan Discharge Clinical Impression: Arthritis of lumbar spine, Constipation Patient Disposition: Home, Self-Care Instructions: Constipation (ED), Osteoarthritis (ED) Additional Instructions: You had no lab abnormality, the x-ray of your back was negative for fracture or dislocation, you do have some mild arthritic changes. See home care instructions. You can use [id number] Tylenol and ibuprofen to manage your discomfort. You are still constipated. Use [id number] Colace twice a day. This is a stool softener. Use [id number] MiraLax, multiple times a day, until you begin having multiple large volume bowel movements. Prescriptions: No Action insulin lispro [Admelog U-100 Insulin lispro] 100 unit/mL Solution See Protocol subcut QIDACHS 30 Days Qty: 10 0RF Protocol: Insulin Correction Scale Less than or equal to 110 ---- Give (units): 0 111 to 150 Give (units): 0 151 to 200 Give (units): 2 201 to 250 Give (units): 4 251 to 300 Give (units): 6 301 to 350 Give (units): 8 Greater than 350 Give (units): 10 Call MD if Blood Glucose > : 350 Januvia 100 mg tablet 100 mg PO DAILY 30 Days Qty: 30 0RF metformin 1,000 mg tablet 1,000 mg PO BID melatonin 10 mg tablet 10 mg PO BEDTIME PRN (Reason: Sleep) aspirin 81 mg tablet,delayed release (DR/EC) 81 mg PO DAILY quetiapine 50 mg tablet 50 mg PO BID PRN (Reason: AGITATION/RACING THOUGHTS) quetiapine 400 mg tablet 400 mg PO BEDTIME gabapentin 300 mg capsule 300 mg PO BID albuterol sulfate 90 mcg/actuation HFA aerosol inhaler 2 puff INHALATION QID PRN (Reason: wheezing) trazodone 50 mg tablet 50 mg PO BEDTIME PRN (Reason: Sleep) atorvastatin 40 mg tablet 40 mg PO DAILY paroxetine HCl 20 mg Tablet 40 mg PO DAILY hydroxyzine pamoate 50 mg capsule 50 mg PO TID PRN (Reason: Anxiety) cyclobenzaprine 10 mg tablet 10 mg PO TID PRN (Reason: Muscle Spasm) acetaminophen 500 mg tablet 1,000 mg PO Q6H PRN (Reason: mild pain) pantoprazole 40 mg tablet,delayed release (DR/EC) 40 mg PO BID ibuprofen 200 mg tablet 400 mg PO Q6H PRN (Reason: fever) insulin glargine [Lantus U-100 Insulin] 100 unit/mL solution 15 unit subcut BEDTIME famotidine [Pepcid] 20 mg tablet 20 mg PO BID Qty: 28 0RF polyethylene glycol 3350 [Miralax] 17 gram/dose powder 17 g PO DAILY Qty: 119 0RF docusate sodium [Colace] 100 mg capsule 100 mg PO DAILY Qty: 14 0RF sucralfate [Carafate] 100 mg/mL suspension 10 ml PO QID PRN (Reason: indigestion) Qty: 300 0RF Rx Instructions: swish in mouth and swallow; use after food/drink olanzapine 10 mg tablet 10 mg PO BEDTIME trazodone 100 mg tablet 100 mg PO BEDTIME nicotine 21 mg/24 hr patch 24 hour 1 patch topical DAILY fluticasone propion-salmeterol 100-50 mcg/dose blister with device 1 ea INHALATION DAILY naproxen 500 mg tablet 500 mg PO BID PRN (Reason: back spasms) amoxicillin-pot clavulanate 875-125 mg tablet 1 tab PO Q12H Patient Comments: 12/19/24: Patient started taking at a later date than fill date Interventions: ED Discharge Assessment Last Done: 12/21/24 07:00 Discharge Date/Time: 12/21/24 07:03 Print Language: German
[2024-12-21 07:00] VITALS: BP 132/86; PULSE 90; RESP 18; TEMP 36.2; O2SAT 97
== END 2024-12-21 07:03 | disposition home or self-care (01) ==
PROVIDERS: Emergency Provider Emergency Medicine
DX: M47.816 Spondylosis without myelopathy or radiculopathy, lumbar region (principal); K59.00 Constipation, unspecified; M54.50 Low back pain, unspecified; E11.9 Type 2 diabetes mellitus without complications
CPT/HCPCS: 36415; 72100; 80048; 81003; 85025; 99283; 99284

== ENCOUNTER → 2024-12-21 02:43 | Outpatient (BNV) | payer OTHER, SELFPAY | PROVIDERS: Visit Provider Radiology Diagnostic Radiology | DX: Z04.3 Encounter for examination and observation following other accident (principal) | CPT/HCPCS: 72100 ==

== ENCOUNTER 2024-12-29 20:18 | Emergency (ER) | payer OTHER, SELFPAY ==
--- OUTSIDE RECORDS SUMMARY | 2024-12-28 23:59 | XMS_ITS | Continuity of Care Document ---
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 Phone Shivani IBARRA, [facility] Primary Care Physician Encounter [facility] [place] Date(s): 11/28/24 - 12/28/[address] [id number] Encounter Type: Triage Allergies, Adverse Reactions, Alerts Substance Criticality Severity Reaction Reaction Severity Status glipiZIDE facial swelling,rash Active Tylox Chest pain not present Active oxyCODONE Active Immunizations Given and Recorded Vaccine Date Status Refusal Reason tetanus/diphtheria/pertussis, acel(Tdap) 09/29/24 Recorded tetanus/diphtheria/pertussis, acel(Tdap) 01/05/17 Given tetanus/diphtheria/pertussis, acel(Tdap) 09/19/14 Recorded SARS-CoV-2(COVID-19)mRNA-LNP vac([id number]) 12/15/23 Recorded influenza virus vaccine, inactivated 11/30/23 Jose rded influenza virus vaccine, inactivated 06/25/23 Jose rded influenza virus vaccine, inactivated 02/06/22 Jose rded [...] 11/05/16 Given pneumococcal 23-valent vaccine 09/19/14 Recorded pneumococcal 13-valent vaccine 5 09/14/16 Recorded 1Result Comment: [facility] [place] [id number] 2Result Comment: [facility] [place] [id number] 3Result Comment: [facility] [id number] [phone] [facility] Medications Alcohol Wipes See Instructions, # 100 each, Maintenance, To prep the skin before injection, 09/27/24 3:39:00 PM EDT, Supply, 170, cm, 09/27/24 8:27:00 EDT, Height, 75.5, kg, 09/22/24 15:15:00 EDT, Dry Weight Start Date: 09/27/24 Status: Ordered Medication Dispense Status: Completed Quantity: 100.0 Unit: each Total Allowed Fills: 1 Fills Dispensed: 0 Indications: Type 2 diabetes mellitus with diabetic neuropathy, unspecified; aspirin 81 mg oral delayed release tablet 81 mg, By Mouth, Daily, # 30 tablet, Refills 0, Tot. Refills 0, Maintenance, 12/28/24 9:00:00 AM EDT, Route to Pharmacy Electronically, [facility], Partial fill upon patient request if the prescription is for a schedule II opioid drug., 167, cm, 12/28/24 7:58:00 EDT, Height, 79.7, kg, 12/23/24 7:44:00 EDT, Dry Weight Start Date: 12/28/24 Status: Ordered Medication Dispense Status: Completed Quantity: 30.0 Unit: tablet Total Allowed Fills: 1 Fills Dispensed: 0 atorvastatin 40 mg oral tablet = 40 mg, By Mouth, Daily at bedtime, # 30 each, 0 Refills, Maintenance, 12/28/24 9:00:00 AM EDT, Tablet, [facility], Partial fill upon patient request if the prescription is for a schedule II opioid drug., 167, cm, 12/28/24 7:58:00 EDT, Height, 79.7, kg, 12/23/24 7:44:00 EDT, Dry Weight Start Date: 12/28/24 Status: Ordered Medication Dispense Status: Completed Quantity: 30.0 Unit: each Total Allowed Fills: 1 Fills Dispensed: 0 budesonide-formoterol 80 mcg-4.5 mcg/inh inhalation aerosol with adapter 2, inhalation, Inhalation, 2 times a day, # 6.9 Gm, Refills 0, Tot. Refills 0, Maintenance, 12/28/24 9:05:00 AM EDT, Inhaler, Route to Pharmacy Electronically, [id number], [facility], 167, cm, 12/28/24 7:58:00 EDT, Height, 79.7, kg, 12/23/24 7:44:00 EDT, Dry Weight Start Date: 12/28/24 Status: Ordered Medication Dispense Status: Completed Quantity: 6.9 Unit: g Total Allowed Fills: 1 Fills Dispensed: 0 clotrimazole topical 1% cream with applicator 1 applicator, Topically, 2 times a day, # 21 Gm, 0 Refills, Maintenance, 12/28/24 9:00:00 AM EDT, Cream, [facility], Partial fill upon patient request if the prescription is for a schedule II opioid drug., 1 applicator Topically 2 times a day, 167, cm, 12/28/24 7:58:00 EDT, Height,79.7, kg, 12/23/24 7:44:00 EDT, Dry Weight Start Date: 12/28/24 Status: Ordered Medication Dispense Status: Completed Quantity: 21.0 Unit: g Total Allowed Fills: 1 Fills Dispensed: 0 cyclobenzaprine 10 mg oral tablet 10 mg, By Mouth, 3 times a day, PRN, # 90 each, Refills 0, Tot. Refills 0, Maintenance, Spasm, 12/28/24 9:00:00 AM EDT, Route to Pharmacy Electronically, [facility], Partial fill upon patient request if the prescription is for a schedule II opioid drug., 167, cm, 12/28/24 7:58:00 EDT, Height, 79.7, kg, 12/23/24 7:44:00 EDT, Dry Weight Start Date: 12/28/24 Status: Ordered Medication Dispense Status: Completed Quantity: 90.0 Unit: each Total Allowed Fills: 1 Fills Dispensed: 0 fluticasone-vilanterol 100 mcg-25 mcg/inh inhalation powder 1 inhalation, Inhalation, Daily, # 30 each, 0 Refills, Maintenance, 12/28/24 9:00:00 AM EDT, Inhaler, [facility], Partial fill upon patient request if the prescription is for a schedule II opioid drug., 1 inhalation Inhalation Daily, 167, cm, 12/28/24 7:58:00 EDT, Height, 79.7, kg,12/23/24 7:44:00 EDT, Dry Weight Start Date: 12/28/24 Status: Ordered Medication Dispense Status: Completed Quantity: 30.0 Unit: each Total Allowed Fills: 1 Fills Dispensed: 0 Freestyle Lite Monitor See Instructions, # 1 each, Refills 0, Tot. Refills 0, Maintenance, Measure blood sugar level before breakfast and before dinner, 12/28/24 8:59:00 AM EDT, Supply, 167, cm, 12/28/24 7:58:00 EDT, Height, 79.7, kg, 12/23/24 7:44:00 EDT, Dry Weight Start Date: 12/28/24 Stop Date: 01/27/25 Status: Ordered Medication Dispense Status: Completed Quantity: 1.0 Unit: each Total Allowed Fills: 1 Fills Dispensed: 0 Indications: Type 2 diabetes mellitus with diabetic neuropathy, unspecified; gabapentin 300 mg oral capsule 300 mg, 1, capsule, By Mouth, 2 times a day, # 60 capsule, Refills 0, Tot. Refills 0, Maintenance, 12/28/24 9:01:00 AM EDT, Route to Pharmacy Electronically, [facility], Partial fillupon patient request if the prescription is for a schedule II opioid drug., 167, cm, 12/28/24 7:58:00 EDT, Height, 79.7, kg, 12/23/24 7:44:00 EDT, Dry Weight Start Date: 12/28/24 Status: Ordered Medication Dispense Status: Completed Quantity: 60.0 Unit: capsule Total Allowed Fills: 1 Fills Dispensed: 0 Glucose Test Strips See Instructions, # 60 each, Refills 0, Tot. Refills 0, Maintenance, Measure blood sugar level before breakfast and before dinner, 09/27/24 3:39:00 PM EDT, Supply, 170, cm, 09/27/24 8:27:00 EDT, Height, 75.5, kg, 09/22/24 15:15:00 EDT, Dry Weight Start Date: 09/27/24 Status: Ordered Medication Dispense Status: Completed Quantity: 60.0 Unit: each Total Allowed Fills: 1 Fills Dispensed: 0 Indications: Type 2 diabetes mellitus with diabetic neuropathy, unspecified; hydrOXYzine pamoate 50 mg oral capsule 1 capsule = 50 mg, By Mouth, Daily, # 30 capsule, 0 Refills, Maintenance, 12/28/24 9:01:00 AM EDT, Capsule, [facility], Partial fill upon patient request if the prescription is for aschedule II opioid drug., 167, cm, 12/28/24 7:58:00 EDT, Height, 79.7, kg, 12/23/24 7:44:00 EDT, Dry Weight Start Date: 12/28/24 Status: Ordered Medication Dispense Status: Completed Quantity: 30.0 Unit: capsule Total Allowed Fills: 1 Fills Dispensed: 0 Insulin Glargine Solostar Pen 100 units/mL subcutaneous solution = 20 units, Subcutaneous Injection, Daily at bedtime, # 10 mL, 0 Refills, Maintenance, 09/27/24 3:56:00 PM EDT, [facility], Partial fill upon patient request if the prescription is for a schedule II opioid drug., 170, cm, 09/27/24 8:27:00 EDT, Height, 75.5, kg, 09/22/24 15:15:00 EDT, Dry Weight Start Date: 09/27/24 Status: Ordered Medication Dispense Status: Completed Quantity: 10.0 Unit: mL Total Allowed Fills: 1 Fills Dispensed: 0 Insulin Lispro KwikPen 100 units/mL injectable solution See Instructions, For blood sugars taken at mealtime. Not to be given at bedtime. Blood sugar: 70-149: 0 units 150-199: 2 units 200-249: 4 units 250-299: 6 units 300-349: 8 units 350-399: 10 units, #3 mL, 5 Refills, Maintenance, 09/27/24 3:56:00 PM EDT, [facility], Partial fill upon patient request if the prescription is for a schedule II opioid drug., 170, cm, 09/27/24 8:27:00 EDT, Height, 75.5, kg, 09/22/24 15:15:00 EDT, Dry Weight Start Date: 09/27/24 Status: Ordered Medication Dispense Status: Completed Quantity: 3.0 Unit: mL Total Allowed Fills: 6 Fills Dispensed: 0 Januvia 100 mg oral tablet = 100 mg, By Mouth, Daily, # 30 each, 0 Refills, Maintenance, 12/28/24 9:04:00 AM EDT, Tablet, [facility], Partial fill upon patient request if the prescription is for a schedule II opioid drug., 167, cm, 12/28/24 7:58:00 EDT, Height, 79.7, kg, 12/23/24 7:44:00 EDT, Dry Weight Start Date: 12/28/24 Status: Ordered Medication Dispense Status: Completed Quantity: 30.0 Unit: each Total Allowed Fills: 1 Fills Dispensed: 0 Lancets See Instructions, # 60 each, Maintenance, Measure blood sugar before breakfast and before dinner, 09/27/24 3:39:00 PM EDT, Supply, 170, cm, 09/27/24 8:27:00 EDT, Height, 75.5, kg, 09/22/24 15:15:00 EDT, Dry Weight Start Date: 09/27/24 Status: Ordered Medication Dispense Status: Completed Quantity: 60.0 Unit: each Total Allowed Fills: 1 Fills Dispensed: 0 Indications: Type 2 diabetes mellitus with diabetic neuropathy, unspecified; melatonin 3 mg oral tablet = 3 mg, By Mouth, Daily at bedtime, PRN Insomnia, # 30 tablet, 0 Refills, Maintenance, 12/28/24 9:06:00 AM EDT, Tablet, [facility], Partial fill upon patient request if the prescription is for a schedule II opioid drug., 167, cm, 12/28/24 7:58:00 EDT, Height, 79.7, kg, 12/23/24 7:44:00 EDT, Dry Weight Start Date: 12/28/24 Status: Ordered Medication Dispense Status: Completed Quantity: 30.0 Unit: tablet Total Allowed Fills: 1 Fills Dispensed: 0 metFORMIN 1000 mg oral tablet 1 tablet = 1,000 mg, By Mouth, 2 times a day, with meals, # 60 tablet, 0 Refills, Maintenance, 12/28/24 9:02:00 AM EDT, Tablet, [facility], Partial fill upon patient request if the prescription is for a schedule II opioid drug., 167, cm, 12/28/24 7:58:00 EDT, Height, 79.7, kg, 12/23/24 7:44:00 EDT, Dry Weight Start Date: 12/28/24 Status: Ordered Medication Dispense Status: Completed Quantity: 60.0 Unit: tablet Total Allowed Fills: 1 Fills Dispensed: 0 MiraLax oral powder for reconstitution = 17 Gm, By Mouth, Daily, dissolve in 4 to 8 oz of beverage, # 510 Gm, 0 Refills, Maintenance, 12/28/24 9:04:00 AM EDT, REC Powder, [facility], Partial fill upon patient request if the prescription is for a schedule II opioid drug., 17 Gm By Mouth Daily,Instr:dissolve in 4 to 8 oz of beverage, 167, cm, 12/28/24 7:58:00 EDT, Height, 79.7, kg, 12/23/24 7:44:00 EDT, Dry Weight Start Date: 12/28/24 Status: Ordered Medication Dispense Status: Completed Quantity: 510.0 Unit: g Total Allowed Fills: 1 Fills Dispensed: 0 nicotine 2 mg oral transmucosal gum = 2 mg, Chew, Every hour, PRN Other, Nicotine Withdrawal Symptoms (NOT to exceed 24 pieces per day), # 160 each, 0 Refills, Maintenance, 12/28/24 9:02:00 AM EDT, Gum, [facility], Partial fill upon patient request if the prescription is for a schedule II opioid drug., 167, cm, 12/28/24 7:58:00 EDT, Height, 79.7, kg, 12/23/24 7:44:00 EDT, Dry Weight Start Date: 12/28/24 Status: Ordered Medication Dispense Status: Completed Quantity: 160.0 Unit: each Total Allowed Fills: 1 Fills Dispensed: 0 nicotine 21 mg/24 hr transdermal film, extended release = 21 mg, Topically, Daily, # 30 patch, 0 Refills, Maintenance, 12/28/24 9:02:00 AM EDT, Patch, [facility], Partial fill upon patient request if the prescription is for a schedule II opioid drug., 21 mg Topically Daily, 167, cm, 12/28/24 7:58:00 EDT, Height, 79.7, kg, 12/23/24 7:44:00 EDT, Dry Weight Start Date: 12/28/24 Status: Ordered Medication Dispense Status: Completed Quantity: 30.0 Unit: patch Total Allowed Fills: 1 Fills Dispensed: 0 olanzapine 10 mg oral tablet 10 mg, By Mouth, Daily at bedtime, # 30 each, Refills 0, Tot. Refills 0, Maintenance, 12/28/24 9:03:00 AM EDT, Route to Pharmacy Electronically, [facility], Partial fill upon patientrequest if the prescription is for a schedule II opioid drug., 167, cm, 12/28/24 7:58:00 EDT, Height, 79.7, kg, 12/23/24 7:44:00 EDT, Dry Weight Start Date: 12/28/24 Status: Ordered Medication Dispense Status: Completed Quantity: 30.0 Unit: each Total Allowed Fills: 1 Fills Dispensed: 0 PARoxetine 40 mg oral tablet 40 mg, By Mouth, Daily, # 30 each, Refills 0, Tot. Refills 0, Maintenance, 12/28/24 9:03:00 AM EDT,Route to Pharmacy Electronically, [facility], Partial fill upon patient request ifthe prescription is for a schedule II opioid drug., 167, cm, 12/28/24 7:58:00 EDT, Height, 79.7, kg, 12/23/24 7:44:00 EDT, Dry Weight Start Date: 12/28/24 Status: Ordered Medication Dispense Status: Completed Quantity: 30.0 Unit: each Total Allowed Fills: 1 Fills Dispensed: 0 Pen Conklin, 30 G x 8 mm BD Ultra Fine II See Instructions, # 100 each, Refills 0, Tot. Refills 0, Maintenance, use as directed for Type 2 Diabetes Mellitus, 09/27/24 3:38:00 PM EDT, Supply, 170, cm, 09/27/24 8:27:00 EDT, Height, 75.5, kg, 09/22/24 15:15:00 EDT, Dry Weight Start Date: 09/27/24 Stop Date: 10/27/24 Status: Ordered Medication Dispense Status: Completed Quantity: 100.0 Unit: each Total Allowed Fills: 1 Fills Dispensed: 0 Indications: Type 2 diabetes mellitus with diabetic neuropathy, unspecified; sucralfate 1 gm oral tablet 1 Gm, By Mouth, 3 times a day before meals and bedtime, # 90 each, Refills 0, Tot. Refills 0, Maintenance, 12/28/24 9:05:00 AM EDT, Route to Pharmacy Electronically, [facility], Partial fill upon patient request if the prescription is for a schedule II opioid drug., 167, cm, 12/28/24 7:58:00 EDT, Height, 79.7, kg, 12/23/24 7:44:00 EDT, Dry Weight Start Date: 12/28/24 Status: Ordered Medication Dispense Status: Completed Quantity: 90.0 Unit: each Total Allowed Fills: 1 Fills Dispensed: 0 traZODone 50 mg oral tablet 50 mg, By Mouth, Daily at bedtime, PRN, # 30 each, Refills 0, Tot. Refills 0, Maintenance, Insomnia, 12/28/24 9:05:00 AM EDT, Route to Pharmacy Electronically, [facility], Partial fill upon patient request if the prescription is for a schedule II opioid drug., 167, cm, 12/28/24 7:58:00 EDT, Height, 79.7, kg, 12/23/24 7:44:00 EDT, Dry Weight Start Date: 12/28/24 Status: Ordered Medication Dispense Status: Completed Quantity: 30.0 Unit: each Total Allowed Fills: 1 Fills Dispensed: 0 Problem List Condition Confirmation Course Effective Dates Status H ealth Status Informant Asthma Confirmed Active CKD (chronic kidney disease) Confirmed Active Cigarette smoker Confirmed Active DM (diabetes mellitus) Confirmed Active H. pylori infection Confirmed Active Hyperlipidemia Confirmed Active Anxiety and depression Confirmed Active Hepatic steatosis Confirmed Active Gastric regurgitation Confirmed Active Social History Social History Type Response Smoking Status 10 or more cigarette s (1/2 pack or more)/day in last 30 days; Interested in cessation: Yes; Patient wants NRT during admission Yes entered on: 12/06/24 Sexual Orientation Self described orien tation: ; Straight or heterosexual Sex Male Sex Representation Male (finding) Patient Care team information Care Team Personnel Name: Kwabena Doyle RN Position: [facility] RN Member Role: Primary Care Nurse Name: Javier Fuentes RN Position: [facility] RN Member Role: Primary Care Nurse Name: Uzma Ozuna RN Position: [facility] RN Member Role: Primary Care Nurse Name: Rita Lubin RN Position: [facility] RN Member Role: Primary Care Nurse Name: Jsason Negro RN Position: [facility] RN Meri Member Role: Primary Care Nurse Name: Domenic Urrutia RN Position: [facility] RN Member Role: Primary Care Nurse Name: Leo Brown RN Position: [facility] RN Member Role: Primary Care Nurse Name: Leni Jamison RN Position: [facility] RN Member Role: Primary Care Nurse Name: Yoel Parrish MD Position: [facility] Physician - Primary Care Member Role: PCP Address: [address] [place] [address] [address] [place] [address]- Telecom: Name: Hollie Young RN Position: [facility] RN Member Role: Primary Care Nurse Name: Carmen Esparza RN Position: [facility] RN Member Role: Primary Care Nurse Name: Liana Quintanilla Position: [facility] RN Member Role: Primary Care Nurse Name: Marlin Catalan RN Position: [facility] RN Member Role: Primary Care Nurse Name: Yun Church RN Position: [facility] RN Member Role: Primary Care Nurse Name: Giovanna Bonilla RN Position: [facility] RN Member Role: Primary Care Nurse Name: Suma Lynn RN Position: [facility] RN Member Role: Primary Care Nurse Name: Ricardo Garg RN Position: [facility] RN Member Role: Primary Care Nurse Name: Derek Phipps RN Position: [facility] RN Member Role: Primary Care Nurse Name: Rosa Blake RN Position: [facility] RN Member Role: Primary Care Nurse Name: Valeri Lozano RN Position: [facility] RN Member Role: Primary Care Nurse Care Team Related Persons Name: SUNIL MEDRANO Name: CHAGO MEDRANO Name: PT STATES, NOBODY Name: SUNIL [place] Insurance Providers Guarantor name: BEST MEDRANO [employer] Plan Information #: 1 Payer: [facility] Payer Identifier: JEWELL Member Number: [id number] Group Number: [id number] Subscriber Identifier: NA Relationship to Subscriber: self Coverage Type: Medicare Managed Care (Includes Medicare Advantage Plans) Coverage Verification Date: Telecom: JEWELL Address:
--- NOTE | ~2024-12-29 | XR_ITS ---
CLINICAL HISTORY: cough phlegm 2 view chest x-ray Comparison: CR - XR CHEST 1V - 09/13/24 22:40 EDT Findings: Heart size is normal. No consolidation, pleural effusion or pneumothorax. No acute fracture. IMPRESSION: 1. No acute findings. This document has been electronically signed by: Shakira Rios MD on 12/29/2024 21:11:44
--- NOTE | ~2024-12-29 | XR_ITS ---
CLINICAL HISTORY: lower back pain s p fall 3 views lumbar spine Comparison: CR - XR LUMBAR SPINE 2-3V - 12/21/24 03:24 EDT Findings: Normal vertebral body alignment. No acute fractures or dislocation. Mild degenerative changes at L2-3. Atherosclerotic vascular disease. IMPRESSION: No acute findings. This document has been electronically signed by: Shakira Rios MD on 12/29/2024 21:08:48
--- OUTSIDE RECORDS SUMMARY | 2024-12-29 14:09 | XMS_ITS | Encounter Summary ---
Author Organization [facility] Address [address] [place] [phone] Care Team Providers Care Ecological Risk Assessor Name Role Phone Yoel Parrish MD Primary Care Provider [phone] Reason for Visit * Reason Comments Suicidal Depression Anxiety Encounter Details Date Type Department Care Team (Late st Contact Info) Description 12/29/2024 2:09 PM EDT - 12/29/2024 3:15 PM EDT Emergency [facility] Emergency [address] [place] [phone] Freddy He MD [address] [address] Suicidal ideation (Primary Dx) Discharge Disposition: Home [...] your loved ones. For example, child care provider or elderly care for an older [...] Sign Reading Time Taken Comments Blood Pressure 160/128 12/29/2024 2:02 PM EDT Pulse 103 12/29/2024 2:02 PM EDT Temperature 36.5 C (97.7 F) 12/29/2024 2:02 PM EDT Respiratory Rate 18 12/29/2024 2:02 PM EDT Oxygen Saturation 97% 12/29/2024 2:02 PM EDT Inhaled Oxygen Concentration - - Weight 79.4 kg (175 lb) 12/29/2024 2:02 PM EDT Height 167.6 cm (5' 6 ) 12/29/2024 2:02 PM EDT Body Mass Index 28.25 12/29/2024 2:02 PM EDT documented in this encounter Functional [...] Assessment Author No 11/20/2024 8:51 PM EDT Viij Oakes RN * Calculated C-SSRS Risk Score (Lifetime/Recent) Answer Date of Assessment Author High Risk 12/29/2024 2:50 PM AUTUMNT Lima Shearer RN * [place] Suicide Severity Rating Scale (Screener/Recent Self-Report) Question Answer Date of Assessment Author 1. Wish to be (Past 1 Month) Yes 2:50 PM AUTUMNT Lima Shearer RN 2. Non-Specific Active Suici sandy Thoughts (Past 1 Month) Yes 12/29/2024 2:50 PM EDT Nas Shearer RN 3. Active Suicidal Ideation with any Methods (Not Plan) Without Intent to Act (Past 1 Month) Yes 12/29/2024 2:50 PM AUTUMNT Lima Izaguirre RN 4. Active Suicidal Ideation with Some Intent to Act, Without Specific Plan (Past 1 Month) Yes 12/29/2024 2:50 PM AUTUMNT Lima Izaguirre RN 5. Active Suicidal Ideation with Specific Plan and Intent (Past 1 Month) Yes 12/29/2024 2:50 PM EDT Lima Shearer RN 6. Suicidal Behavior (Lifetime) Yes 2:50 PM EDT Lima Shearer RN 6. Suicidal Behavior (3 Months) Yes 2:50 PM EDT Lima Shearer RN documented as of this encounter Mental Status * Because of a physical, mental, or emotional condition, do you have serious difficulty concentrating, remembering, or making decisions? (5 years old or older) Answer Entry Date Author No 11/20/2024 8:51 PM EDT Viji Oakes RN documented in this encounter Discharge Instructions * Discharge Instructions* Freddy He MD - 12/29/2024 3:14 PM EDT Please go directly to respite now. Follow-up with your primary care doctor and return for new symptoms worsening symptoms or concerns. * Attachments The following attachments cannot be sent through Care Everywhere. * Suicidal Thoughts (Czech) documented in this encounter Medications at Time [...] each day before breakfast. 09/09/2024 PARoxetine (PAXIL) 40 mg tablet Take 1 tablet (40 mg total) by mouth 1 (one) time each day. 11/29/2024 QUEtiapine (SEROquel) 400 mg tablet Take 1 [...] documented in this encounter Progress Notes * Kobi Clark RN - 12/29/2024 2:03 PM EDT Patient attended the of his 3-4 days ago and since then has had anxiety and SI with a plan to cut his neck with a knife. Denies drug/alcohol use. Calm and cooperative at triage. One suicide attempt a year ago where he cut his wrists open with a wire. documented in this encounter Consult Notes * Cyndie Ferrell - 12/29/2024 3:19 PM EDTAssociated Order(s): IP CONSULT TO TOOL REPAIRER Images from the original note were not included. Behavioral Health Services - Crisis Assessment Important times Time of arrival: 12/29/24 2:09 pm Time of referral: 12/29/24 2:15 pm Time of readiness: 12/29/24 2:30 pm Time assessment started: 12/29/24 2:45 pm Time of disposition: 12/29/24 3:45 pm Location: [facility] Emergency Department Consulted case with: Cassandra Llamas LCSW Insurance information: Insurance: Medicare A&B Verified by: invi Reason for Consultation / Presenting Problem: Andreas Conway is being seen today for a consultive service at the request of Freddy He MD to assess risk and identify appropriate level of care. 59-year-old male well-known to our department, history of bipolar, anxiety/depression, diabetes and hypertension presenting to the emergency department with suicidal ideation. Patient reports today he had thoughts of wanting to slit his throat and cut himself he states that he is struggling especially more than usual because of his 's 3 to 4 days ago. When asked if patient reach out to [...] Says he smokes a lot of cigarettes. Andreas reported my of 16 years left and moved in with her boyfriend . He stated she 3 days ago from a fentanyl overdose .Andreas stated this disturbed me cause she was still mu for 16 years . He stated I wanted to go to respite but I thought I needed a referral . He stated I don't want to hurt myself or anyone . History of Present Illness: Andreas is a 59 y.o. male with Chief Complaint Patient presents with Suicidal Depression Anxiety Social/Educational History: Guardian - if Yes, provide contact information: Self [place] Status: None State Agency Involvement: N/A Brad's [...] Eye Contact: WNL Motor Activity: WNL Mood: Sad Affect: Appropriate Sleep: Poor Appetite: WNL Memory: WNL Attention / Concentration: [...] 11 months Utox Results: BAL negative TOX pending Substance Use Treatment History: Andreas has no history of substance abuse treatment. Mental Health Treatment History: Outpatient Mental Health Treatment: PCP prescribes his medicaitons Previous or Current Psychological Diagnosis: Depression and cocaine use. Prior Psychiatric Hospitalizations/Residential Treatment Facilities: [facility] He denies any history of suicide attempts. He reported he has been admitted to a psychiatric hospitals for depression. Other Comments Regarding Mental Health Treatment History: None reported Mental Health Concerns in Family: None reported Trauma History: Andreas denies any history of sexual abuse or other trauma. Medications: Scheduled Meds: MEDSSCHEDULED[1] Continuous Infusions: MEDSCONTINUOUS[2] PRN Meds: MEDSPRN[3] Risk Assessment: Self-Harm: None Suicidal Behavior: None Homicidal Behavior: None Physical Assault: None Physical Aggression: None Property Damage: None Verbal Aggression: None Family history of suicide: None reported Protective Factors: Has stable housing Has some friends who are supportive. Risk Factors: Andreas reported his 3 days ago. No providers Suicide Risk: Based on patient's history and current presentation, their level of risk for intentional lethal harm is considered Low Safety Plan Completed: yes Andreas reported he wanted to go to respite for support. Interventions: Used active listening Response to interventions: Andreas was engaged in the conversation. DSM-5TR Diagnosis: F33.2 Major Depression, severe, recurrent F14.21 Cocaine use, severe in early remission. Plan: Andreas is at low risk for suicidal or homicidal plan and intent. He reported he would like to go to respite for support. Andreas stated he would go there to see if they have a bed. He was discharged to follow up with respite. Recommendations were discussed with requesting provider. It was a pleasure to assist Andreas Conway here at [facility]. This report is written and finalized by: Cyndie Ferrell MS Behavioral Health Specialist [facility] (Tel): [phone] / : [phone] [1] [2] [3] documented in this encounter Plan of Treatment Not on file documented as of this encounter Procedures Procedure Name Priority Date/Time Associated Diagnosis Comments DRUG ABUSE SCREEN 8A PANEL, URINE STAT 12/29/2024 2:34 PM EDT BUPRENORPHINE SCREEN, URINE STAT 12/29/2024 2:34 PM EDT METHADONE SCREEN, URINE STAT 12/29/2024 2:34 PM EDT PHENCYCLIDINE, URINE STAT 12/29/2024 2:34 PM EDT CBC WITH AUTO DIFFERENTIAL STAT 12/29/2024 2:30 PM EDT CBC AND DIFFERENTIAL STAT 12/29/2024 2:30 PM EDT ETHANOL STAT 12/29/2024 2:30 PM EDT ACETAMINOPHEN LEVEL STAT 12/29/2024 2 :30 PM EDT SALICYLATE LEVEL STAT 12/29/2024 2:30 PM EDT COMPREHENSIVE METABOLIC PANEL STAT 12/29/2024 2:30 PM EDT documented in this encounter Results * Methadone, urine (12/29/2024 2:34 PM EDT) Methadone Screen, Urine Negative Negative LAB CHEMISTRY METHOD 12/29/2024 4:20 PM EDT [facility] Comment: Assay cutoff 300 ng/mL Semi-quantitative assay for screening purposes only. Unconfirmed screening result should not be used for non-medical purposes. *ALTERNATE METHOD CONFIRMATION DONE UPON REQUEST ONLY* Urine Urine specimen obtained by clean catch procedure / Unknown Non-blood Collection / Unknown 12/29/2024 2:34 PM EDT 12/29/2024 3:01 PM EDT us Freddy He MD LAB URINE ORDERABLES Final Resul t [facility] [address] [place] [address], [place] [phone] * Phencyclidine, urine (12/29/2024 2:34 PM EDT) PCP Scrn, Ur Negative Negative LAB CHEMISTRY METHOD 12/29/2024 4:20 PM EDT [facility] Comment: Assay cutoff 25 ng/mL Semi-quantitative assay for screening purposes only. Unconfirmed screening result should not be used for non-medical purposes. *ALTERNATE METHOD CONFIRMATION DONE UPON REQUEST ONLY* Urine Urine specimen obtained by clean catch procedure / Unknown Non-blood Collection / Unknown 12/29/2024 2:34 PM EDT 12/29/2024 3:01 PM EDT us Freddy He MD LAB URINE ORDERABLES Final Resul t Performing Organization Address [facility] de Phone Number [facility] [address] [place] [address], [place] [phone] * Buprenorphine screen, urine (12/29/2024 2:34 PM EDT) Buprenorphine Screen Urine Negative Negative LAB CHEMISTRY METHOD 12/29/2024 4:20 PM EDT [facility] Urine Urine specimen obtained by clean catch procedure / Unknown Non-blood Collection / Unknown 12/29/2024 2:34 PM EDT 12/29/2024 3:01 PM EDT Narrative [facility] - 12/29/2024 4:20 PM EDT Assay cutoff 5 ng/mL Semi-quantitative assay for screening purposes only. Unconfirmed screening result should not be used for non-medical purposes. *ALTERNATE METHOD CONFIRMATION DONE UPON REQUEST ONLY* us Freddy He MD LAB URINE ORDERABLES Final Resul t Performing Organization Address [facility] de Phone Number [facility] [address] [place] [address], [place] [phone] * (ABNORMAL) Drug abuse screen 8a panel, urine (12/29/2024 2:34 PM EDT) Amphetamine Screen, Ur Negative Negative LAB CHEMISTRY METHOD 4:20 PM EDT [facility] Comment:Certain OTC medicati ons containing ephedrine, phenylephrine, pseudoephedrine and phenylpropanolamine can cause false positive results. Barbiturate Screen, Ur Negative Negative LAB CHEMISTRY METHOD 4:20 PM EDT [facility] Benzodiazepine Screen, Ur Negative Negative LAB CHEMISTRY METHOD 5 4:20 PM EDT [facility] Cocaine Screen, Ur Positive(A ) Negative LAB CHEMISTRY METHOD 5 4:20 PM EDT [facility] Opiate Screen, Ur Negative Negative LAB CHEMISTRY METHOD 5 4:20 PM EDT [facility] Cannabinoid (THC) Screen, Ur Negative Negative LAB CHEMISTRY METHOD 5 4:20 PM EDT [facility] Comment:Specimens from patie nts taking pantoprazole sodium (Protonix) have been shown to produce false positive results. Oxycodone Screen, Ur Negative Negative LAB CHEMISTRY METHOD 5 4:20 PM EDT [facility] Fentanyl, Ur Negative Negative LAB CHEMISTRY METHOD 5 4:20 PM EDT [facility] Urine Urine specimen obtained by clean catch procedure / Unknown Non-blood Collection / Unknown 12/29/2024 2:34 PM EDT 12/29/2024 3:01 PM EDT Narrative [facility] - 12/29/2024 4:20 PM EDT Assay cutoffs: Amphetamines 1000 ng/mL [...] Resul t [facility] [address] [place] [address], * (ABNORMAL) CBC auto differential (12/29/2024 2:30 PM EDT) WBC 7.8 4.8 - 10.8 K/[facility] LAB HEMETOLOGY METHOD 12/29/2024 3:07 PM [facility] RBC 4.80 4.50 - 5.50 M/mcL LAB HEMETOLOGY METHOD 12/29/2024 3:07 PM [facility] Hemoglobin 12.8(L) 13.5 - 17.5 g/dL LAB HEMETOLOGY METHOD 12/29/2024 3:07 PM [facility] Hematocrit 38.6(L) 42.0 - 54.0 % LAB HEMETOLOGY METHOD 12/29/2024 3:07 PM [facility] MCV 80.8 79.0 - 98.0 FL LAB HEMETOLOGY METHOD 12/29/2024 3:07 PM [facility] MCH 26.8(L) 27.0 - 32.0 pcg LAB HEMETOLOGY METHOD 12/29/2024 3:07 PM [facility] MCHC 33.2 32.0 - 37.0 g/dL LAB HEMETOLOGY METHOD 12/29/2024 3:07 PM [facility] RDW 14.6 11.0 - 15.0 % LAB HEMETOLOGY METHOD 12/29/2024 3:07 PM [facility] Platelets 257 130 - 400 K/mcL LAB HEMETOLOGY METHOD 12/29/2024 3:07 PM [facility] MPV 9.9 7.0 - 11.0 FL LAB HEMETOLOGY METHOD 12/29/2024 3:07 PM [facility] NRBC 0.0 <1.0 % LAB HEMETOLOGY METHOD 12/29/2024 3:07 PM [facility] NRBC Absolute 0.00 <0.10 K/mcL LAB HEMETOLOGY METHOD 12/29/2024 3:07 PM [facility] Neutrophils Relative 71.4 % LAB HEMETOLOGY METHOD 12/29/2024 3:07 PM EDT [facility] Lymphocytes Relative 18.8 % LAB HEMETOLOGY METHOD 12/29/2024 3:07 PM EDT [facility] Monocytes Relative 8.5 % LAB HEMETOLOGY METHOD 12/29/2024 3:07 PM [facility] Eosinophils Relative 0.5 % LAB [facility]EMETOLOGY [facility] 12/29[facility]2024 3:[facility] Basophils Relative 0.4 % LAB HEMETOLOGY METHOD 12/29/2024 3:07 PM [facility] Immature Granulocytes Relative 0.4 % LAB HEMETOLOGY METHOD 12/29/2024 3:07 PM [facility] Neutrophils Absolute 5.58 1.50 - 7.00 K/mcL LAB HEMETOLOGY METHOD 12/29/2024 3:07 PM [facility] Lymphocytes Absolute 1.47 1.00 - 5.00 K/mcL LAB HEMETOLOGY METHOD 12/29/2024 3:07 PM [facility] Monocytes Absolute 0.66 0.20 - 1.00 K/mcL LAB HEMETOLOGY METHOD 12/29/2024 3:07 PM [facility] Eosinophils Absolute 0.04 0.00 - 0.50 K/mcL LAB HEMETOLOGY METHOD 12/29/2024 3:07 PM [facility] Basophils Absolute 0.03 0.00 - 0.20 K/mcL LAB HEMETOLOGY METHOD 12/29/2024 3:07 PM [facility] Immature Granulocytes Absolute 0.03 0.00 - 0.03 K/mcL LAB HEMETOLOGY METHOD 12/29/2024 3:07 PM [facility] Blood Venous blood specimen / Unknown Venipuncture / Unknown 12/29/2024 2:30 PM EDT 12/29/2024 3:01 PM EDT us Freddy He MD LAB BLOOD ORDERABLES Final Resul t Performing Organization Address City/[facility]/ZIP Co de Phone Number [facility] [address] [place] [address], [place] [phone] * (ABNORMAL) Salicylate level (12/29/2024 2:30 PM EDT) Salicylate Level <1.7(L) 2.0 - 29.0 mg/dL LAB CHEMISTRY METHOD 12/29/2024 3:46 PM EDT [facility] Blood Venous blood specimen / Unknown Venipuncture / Unknown 12/29/2024 2:30 PM EDT 12/29/2024 3:01 PM EDT us Freddy He MD LAB BLOOD ORDERABLES Final Resul t Performing Organization Address [facility] de Phone Number [facility] [address] [place] [address], [place] [phone] * (ABNORMAL) Acetaminophen level (12/29/2024 2:30 PM EDT) Acetaminophen Level <2.0(L) 10.0 - 30.0 mcg/mL LAB CHEMISTRY METHOD 12/29/2024 3:51 PM EDT [facility] Blood Venous blood specimen / Unknown Venipuncture / Unknown 12/29/2024 2:30 PM EDT 12/29/2024 3:01 PM EDT us Freddy He MD LAB BLOOD ORDERABLES Final Resul t Performing Organization Address [facility] Co de Phone Number [facility] [address] [place] [address], [place] [phone] * Ethanol (12/29/2024 2:30 PM EDT) Ethanol Level 3 0 - 10 mg/dL LAB CHEMISTRY METHOD 12/29/2024 3:33 PM T [facility] Blood Venous blood specimen / Unknown Venipuncture / Unknown 12/29/2024 2:30 PM EDT 12/29/2024 3:01 PM EDT us Freddy He MD LAB BLOOD ORDERABLES Final Resul t [facility] [address] [place] [address], [place] [phone] * (ABNORMAL) Comprehensive metabolic panel (12/29/2024 2:30 PM EDT) Sodium 137 133 - 145 mmol/L LAB CHEMISTRY METHOD 12/29/2024 3:30 PM [facility] Potassium 3.9 3.5 - 5.5 mmol/L LAB CHEMISTRY METHOD 12/29/2024 3:30 PM [facility] Chloride 99 96 - 110 mmol/L LAB CHEMISTRY METHOD 12/29/2024 3:30 PM [facility] CO2 31 21 - 32 mmol/L LAB CHEMISTRY METHOD 12/29/2024 3:30 PM [facility] Anion Gap 7 3 - 11 LAB CHEMISTRY METHOD 12/29/2024 3:30 PM [facility] Glucose 190(H) 70 - 100 mg/dL LAB CHEMISTRY METHOD 12/29/2024 3:30 PM [facility] BUN 20 5 - 25 mg/dL LAB CHEMISTRY METHOD 12/29/2024 3:30 PM [facility] Creatinine 1.29 0.70 - 1.30 mg/dL LAB CHEMISTRY METHOD 12/29/2024 3:30 PM [facility] eGFR 64 >=60 mL/min/1. 73m2 LAB CHEMISTRY METHOD 12/29/2024 3:30 PM [facility] Comment:Calculation based on the Chronic Kidney Disease Epidemiology Collaboration (CKD-EPI) equation refit without adjustment for race. BUN/Creatinine Ratio 15.5 LAB CHEMISTRY METHOD 12/29/2024 3:30 PM EDT [facility] Calcium 9.3 8.5 - 10.5 mg/dL LAB CHEMISTRY METHOD 12/29/2024 3:30 PM EDT [facility] AST (SGOT) 19 10 - 42 unit/L LAB CHEMISTRY METHOD 12/29/2024 3:30 PM EDT [facility] ALT (SGPT) 31 10 - 60 unit/L LAB CHEMISTRY METHOD 12/29/2024 3:30 PM EDT [facility] Alkaline Phosphatase 95 42 - 121 unit/L LAB CHEMISTRY [facility] 12/29[facility]2024 3:[facility] Total Protein 7.6 6.0 - 8.0 g/dL LAB CHEMISTRY METHOD 12/29/2024 3:30 PM EDT [facility] Albumin 3.7 3.2 - 5.0 g/dL LAB CHEMISTRY METHOD 12/29/2024 3:30 PM [facility] Total Bilirubin 0.5 0.0 - 1.4 mg/dL LAB CHEMISTRY METHOD 12/29/2024 3:30 PM EDT [facility] Blood Venous blood specimen / Unknown Venipuncture / Unknown 12/29/2024 2:30 PM EDT 12/29/2024 3:01 PM EDT us Freddy He MD LAB BLOOD ORDERABLES Final Resul t [facility] [address] [place] [address], documented in this encounter Visit Diagnoses Diagnosis Suicidal ideation- Primary documented in this encounter Orders Consult Count Last Ordered Date First Orde red Date IP CONSULT TO TOOL REPAIRER 1 12/29/2024 documented in this encounter Care Teams Ecological Risk Assessor Relationship Specialty Start Date End Date Yoel Parrish MD [address] [place] [phone] PCP - General Internal Medicine 01/27/24 documented as of this encounter
[2024-12-29 20:21] VITALS: BP 155/71; PULSE 97; RESP 16; TEMP 36.7; O2SAT 98; BMI 28.2
--- OUTSIDE RECORDS SUMMARY | 2024-12-29 21:08 | XMS_ITS | Encounter Summary ---
Author Organization [facility] Address [address] [place] [address] Care Team Providers Care Sounding Device Operator Name Role Phone Yoel Parrish MD Primary Care Provider [phone] Encounter Details Date Type Department Care Team (Late st Contact Info) Description 08/26/2024 Lab Requisition [facility] - Main Lab [address] [facility] [place] [address] [address] Other mcc (current) drug therapy Social History [...] your loved ones. For example, early childhood aide classroom or elderly care for an older adult? [...] A1C Routine 08/26/2024 7:00 AM EDT Other supervisor intermediates (current) drug therapy documented in this encounter Results * (ABNORMAL) Hemoglobin A1c (08/26/2024 7:00 AM EDT) Hemoglobin A1C 8.5(H) <6.5 % LAB CHEMISTRY METHOD 08/26/2024 2:31 PM EDT [facility] Mean Bld Glu Estim. 197 mg/dL LAB CHEMISTRY METHOD 08/26/2024 2:31 PM EDT [facility] Blood Venous blood specimen / Unknown Venipuncture / Unknown 08/26/2024 7:00 AM EDT 08/26/2024 11:03 AM EDT [facility] LAB BLOOD ORDERABLES Final Resul t [facility] [address] [place] [address], documented in this encounter Visit Diagnoses Diagnosis Other mcc (current) drug therapy documented in this encounter Care Teams Sounding Device Operator Relationship Specialty Start Date End Date Yoel Parrish [place] [address] PCP - General Internal Medicine 01/27/24 documented as of this encounter
--- OUTSIDE RECORDS SUMMARY | 2024-12-29 21:08 | XMS_ITS | Encounter Summary ---
Author Organization [facility] Address [address] [place] [address] Care Team Providers Care Business Education Instructor Name Role Phone Yoel Parrish MD Primary Care Provider [phone] Encounter Details Date Type Department Care Team (Late st Contact Info) Description 08/05/2024 Lab Requisition [facility] - Main Lab [address] [facility] [place] [address] Annie Barraza, [facility] [address] [place] [address] Other rodent exterminator (current) drug therapy Social History Tobacco Use [...] your loved ones. For example, child development director or elderly care for an older [...] LDL Routine 08/05/2024 7:00 AM EDT Other rodent exterminator (current) drug therapy HEMOGLOBIN A1C Routine 08/05/2024 7:00 AM EDT Other fdc (current) drug therapy documented in this encounter Results * (ABNORMAL) Hemoglobin A1c (08/05/2024 7:00 AM EDT) Hemoglobin A1C 8.4(H) <6.5 % LAB CHEMISTRY METHOD 08/05/2024 1:51 PM EDT [facility] Mean Bld Glu Estim. 194 mg/dL LAB CHEMISTRY METHOD 08/05/2024 1:51 PM EDT [facility] Blood Venous blood specimen / Unknown Venipuncture / Unknown 08/05/2024 7:00 AM EDT 08/05/2024 9:58 AM EDT us Annie Barraza [facility] LAB BLOOD ORDERABLES Final Re sult [facility] [address] [place] [address], * (ABNORMAL) Lipid panel with reflex to direct LDL (08/05/2024 7:00 AM EDT) Cholesterol 181 0 - 200 mg/dL LAB CHEMISTRY METHOD 08/05/2024 11:26 AM T [facility] Triglycerides 306(H) 0 - 150 [...] 08/05/2024 9:58 AM EDT us Annie Barraza RN INFUSION LAB BLOOD ORDERABLES Final Re sult [facility] [address] [place] [address], documented in this encounter Visit Diagnoses Diagnosis Other fdc (current) drug therapy documented in this encounter Care Teams Business Education Instructor Relationship Specialty Start Date End Date Yoel Parrish MD [address] [place] [phone] PCP - General Internal Medicine 01/27/24 documented as of this encounter
--- OUTSIDE RECORDS SUMMARY | 2024-12-29 21:08 | XMS_ITS ---
Author Organization [facility] Address [address] [place] [phone] Phone Care Team Providers Care Ward Attendant Name Role Phone Yoel Parrish MD Primary Care Provider [phone] [facility] - Housing Status:Ongoing (Active) Start date:04/11/2024 Enrollment date:04/11/2024 Enrollment reason:Walk-in Related social drivers of health:Housing Instability Related program episode:Community Health Worker Program (Closed) Overview Housing service of Community Health Worker Program Case Team Name Relationship Phone Vu Chicas(Responsible Staff) Community He alth Worker Continued Care and Services Coordination
--- OUTSIDE RECORDS SUMMARY | 2024-12-29 21:08 | XMS_ITS ---
Author Organization [facility] Address [address] [place] [phone] Phone Care Team Providers Care Supercharger Mechanic Name Role Phone Yoel Parrish MD Primary Care Provider +1 -[phone] [facility] - Food Insecurity Status:Ongoing (Active) Start date:04/11/2024 Enrollment date:04/11/2024 Enrollment reason:Walk-in Related social drivers of health:Food Risk Related program episode:Community Health Worker Program (Closed) Overview Community Health Worker Program - Food Insecurity Service Episode Case Team Name Relationship Phone Vu Chicas(Responsible Staff) Community He alth Worker Continued Care and Services Coordination
--- OUTSIDE RECORDS SUMMARY | 2024-12-29 21:08 | XMS_ITS | Encounter Summary ---
Author Organization [facility] Address [address] [place] [address] Care Team Providers Care Polysomnographic Technician Name Role Phone Yoel Parrish MD Primary Care Provider [phone] [phone] Encounter Details Date Type Department Care Team (Late st Contact Info) Description 08/29/2024 Lab Requisition [facility] - Main Lab [address] [facility] [place] [address] [address] Other half-way (current) drug therapy Social History Tobacco Use [...] loved ones. For example, early childhood associate teacher or elderly care for an older [...] 10:39 PM EDT Hannah Burnham RN * [place] Suicide Severity Rating Scale (Screener/Recent Self-Report) Question [...] PANEL Routine 08/29/2024 7:00 AM EDT Other half-way (current) drug therapy documented in this encounter Results * (ABNORMAL) Basic metabolic panel (08/29/2024 7:00 AM EDT) Sodium 138 133 - 145 mmol/L LAB CHEMISTRY METHOD 08/29/2024 11:[address] [facility] Potassium 4.4 3.5 - 5.5 mmol/L LAB CHEMISTRY METHOD 08/29/2024 11:[address] [facility] Chloride 104 96 - 110 mmol/L LAB CHEMISTRY METHOD 08/29/2024 11:[address] [facility] CO2 28 21 [...] 7:00 AM EDT 08/29/2024 10:10 AM EDT [facility] BLOOD ORDERABLES Final Resul t [facility] [address] [place] [address], documented in this encounter Visit Diagnoses Diagnosis Other health insurance sales agent (current) drug therapy documented in this encounter Care Teams Polysomnographic Technician Relationship Specialty Start Date End Date Yoel Parrish MD [address] [place] [phone] PCP - General Internal Medicine 01/27/24 documented as of this encounter
--- OUTSIDE RECORDS SUMMARY | 2024-12-29 21:08 | XMS_ITS | Encounter Summary ---
Author Organization [facility] Address [address] [place] [address] Care Team Providers Care Health Care Marketing Specialist Name Role Phone Yoel Parrish MD Primary Care Provider [phone] [phone] Encounter Details Date Type Department Care Team (Late st Contact Info) Description 08/29/2024 Lab Requisition [facility] - Main Lab [address] [place] [address] [address] Social History Tobacco Use Types Packs/Day Years [...] 10:39 PM EDT Hannah Burnham RN * [place] Suicide Severity Rating Scale (Screener/Recent Self-Report) Question [...] on filedocumented in this encounter Care Teams Health Care Marketing Specialist Relationship Specialty Start Date End Date Yoel Parrish MD [address] [place] [phone] PCP - General Internal Medicine 01/27/24 documented as of this encounter
--- OUTSIDE RECORDS SUMMARY | 2024-12-29 21:09 | XMS_ITS | Encounter Summary ---
Author Organization [facility] Address [address] [place] [address] Care Team Providers Care Township Supervisor Name Role Phone Yoel Parrish MD Primary Care Provider [phone] -[phone] Encounter Details Date Type Department Care Team (Late st Contact Info) Description 08/26/2024 Lab Requisition [facility] - Main Lab [address] [place] [address] [address] Social History Tobacco Use Types Packs/Day Years [...] loved ones. 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
--- OUTSIDE RECORDS SUMMARY | 2024-12-29 21:09 | XMS_ITS ---
Author Organization [facility] Address [address] [place] [phone] Phone Care Team Providers Care Base Filler Operator Name Role Phone Yoel Parrish MD Primary Care Provider +1 [phone] [facility] - Behavioral Health Status:Ongoing (Active) Start date:04/11/2024 Enrollment date:04/11/2024 Enrollment reason:Walk-in Related program episode:Community Health Worker Program (Closed) Overview Behavior Health service of Community Health Worker Program Case Team Name Relationship Phone Vu Chicas(Responsible Staff) Community He alth Worker Continued Care and Services Coordination
--- OUTSIDE RECORDS SUMMARY | 2024-12-29 21:09 | XMS_ITS | Encounter Summary ---
Author Organization [facility] Address [address] [place] [address] Care Team Providers Care City Library Director Name Role Phone Yoel Parrish MD Primary Care Provider [phone] [phone] Encounter Details Date Type Department Care Team (Late st Contact Info) Description 11/23/2024 Lab Requisition [facility] - Main Lab [address] [facility] [email or web address] [address] Ally Gibson NP [address] [place] [address] Social History Tobacco Use Types [...] for your loved ones. For example, child daycare worker or elderly care for an older [...] Author No 11/20/2024 8:51 PM Viji Licona, RN * Do you have serious difficulty [...] on filedocumented in this encounter Care Teams City Library Director Relationship Specialty Start Date End Date Yoel Parrish MD [address] [place] [phone] PCP - General Internal Medicine 01/27/24 documented as of this encounter
--- OUTSIDE RECORDS SUMMARY | 2024-12-29 21:09 | XMS_ITS | Encounter Summary ---
Author Organization [facility] Address [address] [place] [address] Care Team Providers Care Real Estate Agency Licensee Name Role Phone Yoel Parrish MD Primary Care Provider [phone] [phone] Encounter Details Date Type Department Care Team (Late st Contact Info) Description 11/23/2024 Lab Requisition [facility] - Main Lab [address] [facility] [place] [address] Ally Gibson NP [address] [place] [address] Other [facility] (current) drug therapy [...] for your loved ones. 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 197 mg/dL LAB CHEMISTRY METHOD 11/23/2024 12:17 PM EDT [facility] Blood Venous blood specimen / Unknown Venipuncture / Unknown 11/23/2024 7:00 AM EDT 11/23/2024 10:28 AM EDT us Ally Gibson NP LAB BLOOD ORDERABLES Final Resul t [facility] [address] [place] [address], * (ABNORMAL) Glucose, random (11/23/2024 7:00 AM EDT) Glucose 216(H) 70 - 100 mg/dL LAB CHEMISTRY METHOD 11/23/2024 12:02 PM [facility] Blood Venous blood specimen / Unknown Venipuncture / Unknown 11/23/2024 7:00 AM EDT 11/23/2024 10:28 AM EDT us Ally Gibson NP LAB BLOOD ORDERABLES Final Resul t [facility] [address] [place] [address], [place] [phone] * (ABNORMAL) Lipid panel with reflex to [...] EDT 11/23/2024 10:28 AM EDT Ally Gibson DISH NETWORK INSTALLER LAB BLOOD ORDERABLES Final Resul t [facility] [address] [place] [address], documented in this encounter Visit Diagnoses Diagnosis Other [facility] (current) drug therapy documented in this encounter Care Teams Real Estate Agency Licensee Relationship Specialty Start Date End Date Yoel Parrish MD [address] [place] [phone] PCP - General Internal Medicine 01/27/24 documented as of this encounter
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
[2024-12-29 21:10] LABS: COVID-19 Test Negative (Negative); IDNOW Serial# 55D5AD1C; IDNOW Serial# 58CA691E; Influenza B2 Negative (Negative)
--- NOTE | 2024-12-29 21:36 | ED.BACK ---
HPI - Back Pain/Injury General Chief Complaint: Back Pain/Injury Stated Complaint: back pain, congestion Time Seen by Provider: 12/29/24 21:18 Source: patient Mode of arrival: ambulatory Limitations: no limitations History of Present Illness ED Provider: Dr. Taylor Church HPI Narrative: Patient comes to the emergency room complaining of right lower back pain. Patient states his slipped a few days ago and since then has been having mild pain. Patient also reports a few days of mild URI symptoms including cough and congestion. Patient denies IV drug use, denies hitting his head or losing consciousness. Patient denies any urinary retention or incontinence. Patient reports that his gait is normal Related Data Home Medications ?Medication ?Instructions ?Recorded ?Confirmed melatonin 10 mg tablet 10 mg PO BEDTIME PRN Sleep 06/28/24 12/19/24 metformin 1,000 mg tablet 1,000 mg PO BID 06/28/24 12/19/24 albuterol sulfate 90 mcg/actuation 2 puff inhalation QID PRN wheezing 09/06/24 12/19/24 aerosol inhaler aspirin 81 mg tablet,delayed 81 mg PO DAILY 09/06/24 12/19/24 release atorvastatin 40 mg tablet 40 mg PO DAILY 09/06/24 12/19/24 gabapentin 300 mg capsule 300 mg PO BID neuropathy 09/06/24 12/19/24 quetiapine 400 mg tablet 400 mg PO BEDTIME 09/06/24 12/19/24 quetiapine 50 mg tablet 50 mg PO BID PRN AGITATION/RACING 09/06/24 12/19/24 THOUGHTS trazodone 50 mg tablet 50 mg PO BEDTIME PRN Sleep 09/06/24 12/19/24 hydroxyzine pamoate 50 mg capsule 50 mg PO TID PRN Anxiety 10/24/24 12/19/24 paroxetine HCl 20 mg tablet 40 mg PO DAILY 10/24/24 12/19/24 acetaminophen 500 mg tablet 1,000 mg PO Q6H PRN mild pain 11/20/24 12/19/24 cyclobenzaprine 10 mg tablet 10 mg PO TID PRN Muscle Spasm 11/20/24 12/19/24 ibuprofen 200 mg tablet 400 mg PO Q6H PRN fever 11/20/24 12/19/24 insulin glargine 100 unit/mL 15 unit subcut BEDTIME diabetes 11/20/24 12/19/24 subcutaneous solution (Lantus mellitus U-100 Insulin) pantoprazole 40 mg tablet,delayed 40 mg PO BID 11/20/24 12/19/24 release amoxicillin 875 mg-potassium 1 tab PO Q12H 12/19/24 12/19/24 clavulanate 125 mg tablet fluticasone 100 mcg-salmeterol 50 1 ea inhalation DAILY 12/19/24 12/19/24 mcg/dose blistr powdr for inhalation naproxen 500 mg tablet 500 mg PO BID PRN back spasms 12/19/24 12/19/24 nicotine 21 mg/24 hr daily 1 patch topical DAILY 12/19/24 12/19/24 transdermal patch olanzapine 10 mg tablet 10 mg PO BEDTIME 12/19/24 12/19/24 trazodone 100 mg tablet 100 mg PO BEDTIME 12/19/24 12/19/24 Previous Rx's ?Medication ?Instructions ?Recorded insulin lispro 100 unit/mL See Protocol subcut QIDACHS 30 06/15/24 subcutaneous solution (Admelog days #10 mL U-100 Insulin lispro) sitagliptin phosphate 100 mg 100 mg PO DAILY 30 days #30 tabs 06/15/24 tablet (Januvia) sucralfate 100 mg/mL oral 10 ml PO QID PRN indigestion #300 12/05/24 suspension (Carafate) mL docusate sodium 100 mg capsule 100 mg PO DAILY #14 caps 12/16/24 (Colace) famotidine 20 mg tablet (Pepcid) 20 mg PO BID #28 tabs 12/16/24 polyethylene glycol 3350 17 17 g PO DAILY #119 grams 12/16/24 gram/dose oral powder (Miralax) acetaminophen 500 mg tablet 500 mg PO Q6H PRN pain #20 tabs 12/29/24 cyclobenzaprine 10 mg tablet 10 mg PO TID PRN muscle spasm #10 12/29/24 tabs Allergies Allergy/AdvReac Type Severity Reaction Status Date / Time glipizide (GLIPIZIDE) Allergy Intermediate ITCHY Verified 12/29/24 20:24 oxycodone Allergy Hives Verified 12/29/24 20:24 Review of Systems Review of Systems: Constitutional : No Weight loss, No Fever, No Chills, No Night Sweats, No Fatigue, No Malaise ENT/Mouth : No Hearing loss, No Ear Pain, complaining of Nasal Congestion, No Sinus Pain, No Hoarseness, No sore throat, No Rhinorrhea, No Swallowing Difficulty Eyes: No Eye Pain, No Swelling, No Redness, No Foreign Body, No Discharge, No Vision Changes Cardiovascular : No Chest Pain, No SOB, No Dyspnea on Exertion, No Orthopnea, No Edema, No Palpitations Respiratory : No Cough, No Sputum, No Wheezing, No Smoke Exposure, No Dyspnea Gastrointestinal : No Nausea, No Vomiting, No Diarrhea, No Constipation, No abdominal Pain, No Hematochezia, No Melena Genitourinary : no irregular bleeding, No Dysuria, No Urinary Frequency, No Hematuria, No Urinary Incontinence, No Urgency, No Flank Pain, No Urinary Flow Changes, No Hesitancy Musculoskeletal : Complaining of right lower back pain, No Myalgias, No Joint Swelling Skin : No Skin Lesions, No rash Neuro : No Weakness, No Numbness, No Paresthesias, No Loss of Consciousness, No Dizziness, No Headache Psych : No Anxiety/Panic, No Depression, No SI/HI/AH/VH, No Social Issues, Heme/Lymph: No Bruising, No Bleeding,No Lymphadenopathy Endocrine : No Polyuria, No Polydipsia, No Temperature Intolerance [facility] Past Medical History Medical History Asthma Depression MDD (major depressive disorder), recurrent episode, moderate Cocaine use disorder Substance-induced psychotic disorder Anxiety Diabetes Surgical History History of facial surgery H/O knee surgery Social History Social History Household Members: None Housing: Homeless Do you presently have visiting nurse or other home services: No Alcohol intake: current Alcohol intake frequency: does not drink Alcohol type: beer Patient Tobacco Use Status: Current everyday Tobacco user Tobacco use type: Cigarette Cigarette Packs Per Day: 1 Cigarettes Per Day: 20.0 Years Smoked: 35 e-Cigarette/Vaping Use: Former Use Second Hand Smoke Exposure: No Substance Use Type: Crack/Cocaine Advance Directives: Yes Advance Directives on File: Yes Advance Directives Date on File: 10/24/21 Do you have a plan to hurt others: No Plan service: No Sexual orientation: Straight/Heterosexual Physical Exam Exam: Exam: Appearance: Alert. Oriented X3. No acute distress. Eyes: Pupils equal, round and reactive to light. ENT: Pharynx normal. Neck: Normal inspection. Neck supple. No lymph nodes noted. No crepitus CVS: Normal heart rate and rhythm. Pulses normal. Normal S1 and S2 Respiratory: No respiratory distress. Breath sounds normal. No Wheezing. No rales Abdomen: Soft and nontender. No rigidity. No distention. Back: Pain to palpation over the paraspinal muscles on the right side, no thoracic or lumbar spine tenderness. Patient ambulatory with normal steady gait Skin: Skin warm and dry. Normal skin color. Normal skin turgor. Extremities: No lower extremity edema. No Lacerations. No Rash Neuro: Oriented X 3. No motor deficit. No sensory deficit. Moving all extremities. No slurred speech. CN 2 through 12 grossly intact Psych: calm, cooperative, normal affect Vital Signs: Vital Signs: Last Vital Signs Temp 98.1 F 12/29/24 20:21 Pulse 97 12/29/24 20:21 Resp 16 12/29/24 20:21 BP 155/71 H 12/29/24 20:21 Pulse Ox 98 12/29/24 20:21 O2 Del Method Room Air 12/29/24 20:21 BMI result Body Mass Index 28.2 Medical Decision Making Medical Decision Making [facility] Narrative: My interpretation of labs: Serology negative for COVID or influenza. Chest x-ray negative for any acute abnormality. Lumbar spine x-ray no acute abnormality. I discussed with the patient that he has been musculoskeletal pain secondary to fall. Possibly a contusion. Lab Data [facility] Lab Attestation statement: I reviewed the patient's lab results. Labs: Lab Results 12/29/24 Range/Units 20:47 COVID-19 (BETY) Negative (Negative) COVID-19 Clin Com See Note Influenza Type A (ARIANE) Negative (Negative) Influenza Type B (ARIANE) Negative (Negative) Influenza A & B Note See Note Independent Interpretation I performed an independent interpretation of an: Plain X-Ray Radiology Impression Discussion of test interpretation with radiology: I have reviewed the radiologist's reading. Radiologist Impression: Heart size is normal. No consolidation, pleural effusion or pneumothorax. No acute fracture. Normal vertebral body alignment. No acute fractures or dislocation. Mild degenerative changes at L2-3. Atherosclerotic vascular disease. Discharge Plan Discharge Clinical Impression: Back pain Patient Disposition: Home, Self-Care Instructions: Back Pain (ED) Additional Instructions: Please follow-up with your primary care physician tomorrow. If you have any worsening or new symptoms, please return to the emergency room or call 911 Prescriptions: New acetaminophen 500 mg tablet 500 mg PO Q6H PRN (Reason: pain) Qty: 20 0RF cyclobenzaprine 10 mg tablet 10 mg PO TID PRN (Reason: muscle spasm) Qty: 10 0RF No Action insulin lispro [Admelog U-100 Insulin lispro] 100 unit/mL Solution See Protocol subcut QIDACHS 30 Days Qty: 10 0RF Protocol: Insulin Correction Scale Less than or equal to 110 ---- Give (units): 0 111 to 150 Give (units): 0 151 to 200 Give (units): 2 201 to 250 Give (units): 4 251 to 300 Give (units): 6 301 to 350 Give (units): 8 Greater than 350 Give (units): 10 Call MD if Blood Glucose > : 350 Januvia 100 mg tablet 100 mg PO DAILY 30 Days Qty: 30 0RF metformin 1,000 mg tablet 1,000 mg PO BID melatonin 10 mg tablet 10 mg PO BEDTIME PRN (Reason: Sleep) aspirin 81 mg tablet,delayed release (DR/EC) 81 mg PO DAILY quetiapine 50 mg tablet 50 mg PO BID PRN (Reason: AGITATION/RACING THOUGHTS) quetiapine 400 mg tablet 400 mg PO BEDTIME gabapentin 300 mg capsule 300 mg PO BID albuterol sulfate 90 mcg/actuation HFA aerosol inhaler 2 puff INHALATION QID PRN (Reason: wheezing) trazodone 50 mg tablet 50 mg PO BEDTIME PRN (Reason: Sleep) atorvastatin 40 mg tablet 40 mg PO DAILY paroxetine HCl 20 mg Tablet 40 mg PO DAILY hydroxyzine pamoate 50 mg capsule 50 mg PO TID PRN (Reason: Anxiety) cyclobenzaprine 10 mg tablet 10 mg PO TID PRN (Reason: Muscle Spasm) acetaminophen 500 mg tablet 1,000 mg PO Q6H PRN (Reason: mild pain) pantoprazole 40 mg tablet,delayed release (DR/EC) 40 mg PO BID ibuprofen 200 mg tablet 400 mg PO Q6H PRN (Reason: fever) insulin glargine [Lantus U-100 Insulin] 100 unit/mL solution 15 unit subcut BEDTIME famotidine [Pepcid] 20 mg tablet 20 mg PO BID Qty: 28 0RF polyethylene glycol 3350 [Miralax] 17 gram/dose powder 17 g PO DAILY Qty: 119 0RF docusate sodium [Colace] 100 mg capsule 100 mg PO DAILY Qty: 14 0RF sucralfate [Carafate] 100 mg/mL suspension 10 ml PO QID PRN (Reason: indigestion) Qty: 300 0RF Rx Instructions: swish in mouth and swallow; use after food/drink olanzapine 10 mg tablet 10 mg PO BEDTIME trazodone 100 mg tablet 100 mg PO BEDTIME nicotine 21 mg/24 hr patch 24 hour 1 patch topical DAILY fluticasone propion-salmeterol 100-50 mcg/dose blister with device 1 ea INHALATION DAILY naproxen 500 mg tablet 500 mg PO BID PRN (Reason: back spasms) amoxicillin-pot clavulanate 875-125 mg tablet 1 tab PO Q12H Patient Comments: 12/19/24: Patient started taking at a later date than fill date Interventions: ED Discharge Assessment Last Done: 12/29/24 21:39 Print Language: Japanese
[2024-12-29 21:39] VITALS: BP 155/71; PULSE 97; RESP 16; TEMP 36.7; O2SAT 98
== END 2024-12-29 21:39 | disposition home or self-care (01) ==
PROVIDERS: Emergency Provider Emergency Medicine
DX: M54.50 Low back pain, unspecified (principal)
CPT/HCPCS: 71046; 72100; 87502; 87635; 99282

== ENCOUNTER → 2024-12-29 20:30 | Outpatient (BNV) | payer OTHER, SELFPAY | PROVIDERS: Emergency Provider Emergency Medicine; Visit Provider Specialist | DX: R05.9 Cough, unspecified (principal); R09.3 Abnormal sputum; M54.50 Low back pain, unspecified | CPT/HCPCS: 71046; 72100 ==

== ENCOUNTER 2024-12-29 22:37 | Emergency (ER) | payer OTHER, SELFPAY ==
[2024-12-29 22:44] VITALS: BP 139/86; PULSE 89; RESP 16; TEMP 36.3; O2SAT 96; BMI 27.4
--- NOTE | 2024-12-30 00:31 | ED.PSYCH ---
HPI - Psych General Chief Complaint: Psychiatric Symptoms Stated Complaint: SI Time Seen by Provider: 12/29/24 22:55 Source: patient Mode of arrival: ambulatory Limitations: no limitations History of Present Illness ED Provider: Dr. Taylor Church HPI Narrative: Patient comes to the emergency room again. Patient was discharged a few minutes ago. Patient was doing well. Patient states that after he got discharged, he got a phone call and was informed that his previous ex- turned out to be alive , patient complaining of suicidal ideation. Patient denies HI. However, when patient checked in again, he told the triage nurse that he was suicidal because his 3 days ago. I saw the patient 10 minutes ago prior to discharge from his 1st ED visit, and he denied SI and HI Related Data Home Medications ?Medication ?Instructions ?Recorded ?Confirmed melatonin 10 mg tablet 10 mg PO BEDTIME PRN Sleep 06/28/24 12/30/24 metformin 1,000 mg tablet 1,000 mg PO BID 06/28/24 12/30/24 albuterol sulfate 90 mcg/actuation 2 puff inhalation QID PRN wheezing 09/06/24 12/30/24 aerosol inhaler aspirin 81 mg tablet,delayed 81 mg PO DAILY 09/06/24 12/30/24 release atorvastatin 40 mg tablet 40 mg PO DAILY 09/06/24 12/30/24 gabapentin 300 mg capsule 300 mg PO BID neuropathy 09/06/24 12/30/24 quetiapine 400 mg tablet 400 mg PO BEDTIME 09/06/24 12/30/24 quetiapine 50 mg tablet 50 mg PO BID PRN AGITATION/RACING 09/06/24 12/30/24 THOUGHTS trazodone 50 mg tablet 50 mg PO BEDTIME PRN Sleep 09/06/24 12/30/24 hydroxyzine pamoate 50 mg capsule 50 mg PO TID PRN Anxiety 10/24/24 12/30/24 paroxetine HCl 20 mg tablet 40 mg PO DAILY 10/24/24 12/30/24 acetaminophen 500 mg tablet 1,000 mg PO Q6H PRN mild pain 11/20/24 12/30/24 cyclobenzaprine 10 mg tablet 10 mg PO TID PRN Muscle Spasm 11/20/24 12/30/24 ibuprofen 200 mg tablet 400 mg PO Q6H PRN fever 11/20/24 12/30/24 insulin glargine 100 unit/mL 15 unit subcut BEDTIME diabetes 11/20/24 12/30/24 subcutaneous solution (Lantus mellitus U-100 Insulin) pantoprazole 40 mg tablet,delayed 40 mg PO BID 11/20/24 12/30/24 release amoxicillin 875 mg-potassium 1 tab PO Q12H 12/19/24 12/30/24 clavulanate 125 mg tablet fluticasone 100 mcg-salmeterol 50 1 ea inhalation DAILY 12/19/24 12/30/24 mcg/dose blistr powdr for inhalation naproxen 500 mg tablet 500 mg PO BID PRN back spasms 12/19/24 12/30/24 nicotine 21 mg/24 hr daily 1 patch topical DAILY 12/19/24 12/30/24 transdermal patch olanzapine 10 mg tablet 10 mg PO BEDTIME 12/19/24 12/30/24 trazodone 100 mg tablet 100 mg PO BEDTIME 12/19/24 12/30/24 Previous Rx's ?Medication ?Instructions ?Recorded insulin lispro 100 unit/mL See Protocol subcut QIDACHS 30 06/15/24 subcutaneous solution (Admelog days #10 mL U-100 Insulin lispro) sitagliptin phosphate 100 mg 100 mg PO DAILY 30 days #30 tabs 06/15/24 tablet (Januvia) sucralfate 100 mg/mL oral 10 ml PO QID PRN indigestion #300 12/05/24 suspension (Carafate) mL docusate sodium 100 mg capsule 100 mg PO DAILY #14 caps 12/16/24 (Colace) famotidine 20 mg tablet (Pepcid) 20 mg PO BID #28 tabs 12/16/24 polyethylene glycol 3350 17 17 g PO DAILY #119 grams 12/16/24 gram/dose oral powder (Miralax) acetaminophen 500 mg tablet 500 mg PO Q6H PRN pain #20 tabs 12/29/24 cyclobenzaprine 10 mg tablet 10 mg PO TID PRN muscle spasm #10 12/29/24 tabs Allergies Allergy/AdvReac Type Severity Reaction Status Date / Time glipizide (GLIPIZIDE) Allergy Intermediate ITCHY Verified 12/29/24 22:45 oxycodone Allergy Hives Verified 12/29/24 22:45 Review of Systems Review of Systems: Constitutional : No Weight loss, No Fever, No Chills, No Night Sweats, No Fatigue, No Malaise ENT/Mouth : No Hearing loss, No Ear Pain, No Nasal Congestion, No Sinus Pain, No Hoarseness, No sore throat, No Rhinorrhea, No Swallowing Difficulty Eyes: No Eye Pain, No Swelling, No Redness, No Foreign Body, No Discharge, No Vision Changes Cardiovascular : No Chest Pain, No SOB, No Dyspnea on Exertion, No Orthopnea, No Edema, No Palpitations Respiratory : No Cough, No Sputum, No Wheezing, No Smoke Exposure, No Dyspnea Gastrointestinal : No Nausea, No Vomiting, No Diarrhea, No Constipation, No abdominal Pain, No Hematochezia, No Melena Genitourinary : no irregular bleeding, No Dysuria, No Urinary Frequency, No Hematuria, No Urinary Incontinence, No Urgency, No Flank Pain, No Urinary Flow Changes, No Hesitancy Musculoskeletal : No joint pain, No Myalgias, No Joint Swelling Skin : No Skin Lesions, No rash Neuro : No Weakness, No Numbness, No Paresthesias, No Loss of Consciousness, No Dizziness, No Headache Psych : No Anxiety/Panic, complaining of depression and SI. Patient stating that his ex- was that and now is alive Heme/Lymph: No Bruising, No Bleeding,No Lymphadenopathy Endocrine : No Polyuria, No Polydipsia, No Temperature Intolerance PMFSH Past Medical History Medical History Asthma Depression MDD (major depressive disorder), recurrent episode, moderate Cocaine use disorder Substance-induced psychotic disorder Anxiety Diabetes Surgical History History of facial surgery H/O knee surgery Social History Social History Household Members: None Housing: Homeless Do you presently have visiting nurse or other home services: No Alcohol intake: never Patient Tobacco Use Status: Current everyday Tobacco user Tobacco use type: Cigarette Cigarette Packs Per Day: 1 Cigarettes Per Day: 20.0 Years Smoked: 35 Smoked in Last 30 Days: Yes e-Cigarette/Vaping Use: Former Use Second Hand Smoke Exposure: No Use of substances other than those prescribed or required for medical reasons: No Substance Use Type: Crack/Cocaine Advance Directives: Yes Advance Directives Information Provided: Yes Advance Directives on File: Yes Advance Directives Date on File: 10/24/21 Do you have a plan to hurt others: No Plan service: No Sexual orientation: Straight/Heterosexual Physical Exam Exam: Exam: Appearance: Alert. Oriented X3. No acute distress. Eyes: Pupils equal, round and reactive to light. ENT: Pharynx normal. Neck: Normal inspection. Neck supple. No lymph nodes noted. No crepitus CVS: Normal heart rate and rhythm. Pulses normal. Normal S1 and S2 Respiratory: No respiratory distress. Breath sounds normal. No Wheezing. No rales Abdomen: Soft and nontender. No rigidity. No distention. Skin: Skin warm and dry. Normal skin color. Normal skin turgor. Extremities: No lower extremity edema. No Lacerations. No Rash Neuro: Oriented X 3. No motor deficit. No sensory deficit. Moving all extremities. No slurred speech. CN 2 through 12 grossly intact Psych: calm, cooperative, normal affect Vital Signs: Vital Signs: Last Vital Signs Temp 97.8 F 12/30/24 06:01 Pulse 91 12/30/24 06:01 Resp 18 12/30/24 06:01 BP 132/68 12/30/24 06:01 Pulse Ox 97 12/30/24 06:01 O2 Del Method Room Air 12/30/24 06:01 BMI result Body Mass Index 27.4 Course Course Course Narrative: Patient was discharged a few minutes ago for back pain. Denies SI or HI. 10 minutes later he checks in with SI. Unclear if patient truly got a phone call with bad news? Use drugs after leaving the hospital? Or patient is malingering, it is cold and raining outside All of patient's labs pending Care team consult pending Patient known to have history of hallucinations Physician observation started at 00:30 Reevaluation(s) Reevaluation #1: Time: 08:45 Date: 12/30/24 Provider: Ellis Le DO Physician observation ended . Patient has been cleared for discharge by the CARE team. Will follow up as an outpatient. Time: 08:45 Medical Decision Making Differential Diagnosis Differential Diagnoses: The differential diagnosis associated with the presentation includes (Anxiety, depression, polysubstance abuse, schizophrenia) Admission/Observation Consideration of admission/observation: Escalation of care including admission/observation considered (Patient is under physician observation waiting to be seen by the care team) Lab Data 12/30/24 01:14 12/30/24 01:14 Labs: Lab Results 12/30/24 12/30/24 Range/Units 01:14 01:33 WBC 8.2 (4.8-10.8) X10*3/uL RBC 5.15 (4.60-5.80) X10*6/uL Hgb 13.6 L (14.0-18.0) g/dl Hct 41.6 L (42.0-52.0) % MCV 80.8 (80.0-98.0) fL MCH 26.4 L (27.0-33.0) pg MCHC 32.7 (31.0-36.0) g/dl RDW 14.5 (11.0-16.0) % Plt Count 260 (160-400) X10*3/uL MPV 9.2 L (9.4-12.4) fL Immature Gran % (Auto) 0.5 H (0.0-0.4) % Neut % (Auto) 64.9 (45-73) % Lymph % (Auto) 22.2 (20-40) % [place] % (Auto) 10.7 (2-11) % Eos % (Auto) 1.2 (0-4) % Baso % (Auto) 0.5 (0-2) % Lymph # (Auto) 1.8 (1.2-4.9) X10*3/uL [place] # (Auto) 0.9 (0.1-1.2) X10*3/uL Eos # (Auto) 0.1 (0.0-0.4) X10*3/uL Baso # (Auto) 0.0 (0.0-0.2) X10*3/uL Abs Immat Gran (auto) 0.04 H (0.00-0.03) X10*3/uL Absolute Neuts (auto) 5.3 (2.0-8.3) x10*3/uL Absolute Nucleated RBC 0.000 (0.0-0.012) X10*3/uL Nucleated RBC % (auto) 0.0 (0.0-0.2) /100WBC Sodium 142 (135-145) mmol/L Potassium 4.2 (3.3-5.1) mmol/L Chloride 102 (96-108) mmol/L Carbon Dioxide 29 (22-29) mmol/L Anion Gap 15 (12-20) BUN 22 H (9-16) mg/dL Creatinine 1.10 (0.5-1.4) mg/dL Estim Creat Clear Calc 73.9 Estimated GFR > 60 Random Glucose 149 H (60-115) mg/dL Calcium 9.6 (8.4-10.2) mg/dL Total Bilirubin 0.3 (0.0-1.0) mg/dL AST 26 (5-37) U/L ALT 25 (0-40) U/L Alkaline Phosphatase 90 (39-117) U/L Total Protein 8.3 H (6.5-8.0) g/dL Albumin 4.6 (3.5-5.0) g/dL Lipase 86 H (8-78) U/L Salicylates < 5.0 L (15-30) mg/dL Urine Opiates Screen Not Detected (Not Detect) Ur Buprenorphine Scrn Not Detected (Not Detect) ng/mL Ur Oxycodone Screen Not Detected (Not Detect) ng/mL Urine Methadone Screen Not Detected (Not Detect) ng/mL Urine Fentanyl Screen Not Detected (Not Detect) Acetaminophen < 3 (<30) mcg/mL Ur Barbiturates Screen Not Detected (Not Detect) Ur Phencyclidine Scrn Not Detected (Not Detect) Ur Amphetamines Screen Not Detected (Not Detect) U Benzodiazepines Scrn Not Detected (Not Detect) Urine Cocaine Screen POSITIVE H (Not Detect) U Marijuana (THC) Screen Not Detected (Not Detect) Ethyl Alcohol < 10 mg/dL Critical Care Time Critical Care Time Critical Care Time: Yes Total Critical Care Time: 35 Attestation: I have personally provided critical care time. Time includes review of lab data, radiology results, discussion with consultants, and monitoring for potential decompensation. Intervention performed as documented. Discharge Plan Discharge Clinical Impression: Hallucinations Patient Disposition: Home, Self-Care Additional Instructions: You were seen in our Emergency Department today for treatment of a behavioral health issue. It is important after your visit that you follow up with either your behavioral health provider or a primary care doctor within 7 days.? If you have trouble finding a therapist you can reach out to [address] [phone] The National Suicide and Crisis Lifeline can be reached 7 days a week 24 hours a day.? Call 988 to speak with someone.? Return for any worsening symptoms or concerns such as thoughts of self harm or harm to others. Please call 911 if you feel your mental health is worsening.? Prescriptions: No Action insulin lispro [Admelog U-100 Insulin lispro] 100 unit/mL Solution See Protocol subcut QIDACHS 30 Days Qty: 10 0RF Protocol: Insulin Correction Scale Less than or equal to 110 ---- Give (units): 0 111 to 150 Give (units): 0 151 to 200 Give (units): 2 201 to 250 Give (units): 4 251 to 300 Give (units): 6 301 to 350 Give (units): 8 Greater than 350 Give (units): 10 Call MD if Blood Glucose > : 350 Januvia 100 mg tablet 100 mg PO DAILY 30 Days Qty: 30 0RF metformin 1,000 mg tablet 1,000 mg PO BID melatonin 10 mg tablet 10 mg PO BEDTIME PRN (Reason: Sleep) aspirin 81 mg tablet,delayed release (DR/EC) 81 mg PO DAILY quetiapine 50 mg tablet 50 mg PO BID PRN (Reason: AGITATION/RACING THOUGHTS) quetiapine 400 mg tablet 400 mg PO BEDTIME gabapentin 300 mg capsule 300 mg PO BID albuterol sulfate 90 mcg/actuation HFA aerosol inhaler 2 puff INHALATION QID PRN (Reason: wheezing) trazodone 50 mg tablet 50 mg PO BEDTIME PRN (Reason: Sleep) atorvastatin 40 mg tablet 40 mg PO DAILY paroxetine HCl 20 mg Tablet 40 mg PO DAILY hydroxyzine pamoate 50 mg capsule 50 mg PO TID PRN (Reason: Anxiety) cyclobenzaprine 10 mg tablet 10 mg PO TID PRN (Reason: Muscle Spasm) acetaminophen 500 mg tablet 1,000 mg PO Q6H PRN (Reason: mild pain) pantoprazole 40 mg tablet,delayed release (DR/EC) 40 mg PO BID ibuprofen 200 mg tablet 400 mg PO Q6H PRN (Reason: fever) insulin glargine [Lantus U-100 Insulin] 100 unit/mL solution 15 unit subcut BEDTIME famotidine [Pepcid] 20 mg tablet 20 mg PO BID Qty: 28 0RF polyethylene glycol 3350 [Miralax] 17 gram/dose powder 17 g PO DAILY Qty: 119 0RF docusate sodium [Colace] 100 mg capsule 100 mg PO DAILY Qty: 14 0RF sucralfate [Carafate] 100 mg/mL suspension 10 ml PO QID PRN (Reason: indigestion) Qty: 300 0RF Rx Instructions: swish in mouth and swallow; use after food/drink olanzapine 10 mg tablet 10 mg PO BEDTIME trazodone 100 mg tablet 100 mg PO BEDTIME nicotine 21 mg/24 hr patch 24 hour 1 patch topical DAILY fluticasone propion-salmeterol 100-50 mcg/dose blister with device 1 ea INHALATION DAILY naproxen 500 mg tablet 500 mg PO BID PRN (Reason: back spasms) amoxicillin-pot clavulanate 875-125 mg tablet 1 tab PO Q12H Patient Comments: 12/19/24: Patient started taking at a later date than fill date acetaminophen 500 mg tablet 500 mg PO Q6H PRN (Reason: pain) Qty: 20 0RF cyclobenzaprine 10 mg tablet 10 mg PO TID PRN (Reason: muscle spasm) Qty: 10 0RF Interventions: Lamar-Suicide Risk Severity Scale Last Done: 12/29/24 23:37 Print Language: Macedonian
[2024-12-30 01:20] LABS: Hematocrit 41.6 % (42.0-52.0); Hemoglobin 13.6 g/dl (14.0-18.0); Imm Gran Abs Auto 0.04 X10*3/uL (0.00-0.03); Imm Gran Pct Auto 0.5 % (0.0-0.4); Lymphocytes Absolute Auto 1.8 X10*3/uL (1.2-4.9); MANUAL DIFF FLAG NO; Mean Corpuscular HGB Conc 32.7 g/dl (31.0-36.0); Mean Corpuscular Hemoglobin 26.4 pg (27.0-33.0); Mean Corpuscular Volume 80.8 fL (80.0-98.0); NRBC Abs Auto 0.000 X10*3/uL (0.0-0.012); NRBC Pct Auto 0.0 /100WBC (0.0-0.2); Platelet Count 260 X10*3/uL (160-400); Red Blood Count 5.15 X10*6/uL (4.60-5.80); White Blood Count 8.2 X10*3/uL (4.8-10.8)
[2024-12-30 01:38] LABS: Alanine Aminotransferase 25 U/L (0-40); Albumin Level 4.6 g/dL (3.5-5.0); Alkaline Phosphatase 90 U/L (39-117); Anion Gap 15 (12-20); Aspartate Amino Transferase 26 U/L (5-37); Blood Urea Nitrogen 22 mg/dL (9-16); Calcium 9.6 mg/dL (8.4-10.2); Carbon Dioxide 29 mmol/L (22-29); Chloride 102 mmol/L (96-108); Creatinine Clr Calc Pharmacy 73.9; Estimated Glomerular Filt Rate > 60; Lipase 86 U/L (8-78); Potassium 4.2 mmol/L (3.3-5.1); Sodium 142 mmol/L (135-145); Total Protein 8.3 g/dL (6.5-8.0)
[2024-12-30 01:46] LABS: Acetaminophen LAB < 3 mcg/mL (<30); Salicylate < 5.0 mg/dL (15-30)
[2024-12-30 01:48] LABS: Cannabinoid Screen Urine Not Detected (Not Detect)
[2024-12-30 06:01] VITALS: BP 132/68; PULSE 91; RESP 18; TEMP 36.6; O2SAT 97
--- NOTE | 2024-12-30 06:44 | PC.NURSE ---
Arrived to POD, manager exchange completed in Main ED. Belongings secured. Provided drink/snack. 15 minute safety checks initiated. Plan of care ongoing.
--- NOTE | 2024-12-30 07:53 | PC.NURSE ---
Assumed care, report received. Pt is provided breakfast, he is calm and denies SI at this time.
--- NOTE | 2024-12-30 08:43 | MHC.CARE ---
Pt denies SI, HI, and A/V/H. He does not meet the criteria for a higher level of care and is advocating to D/C to self present to [facility] on [address] for ACCS. ED provider in agreement.
[2024-12-30 09:02] VITALS: BP 132/68; PULSE 91; RESP 18; TEMP 36.6; O2SAT 97
== END 2024-12-30 09:06 | disposition home or self-care (01) ==
PROVIDERS: Emergency Provider Emergency Medicine
DX: R44.3 Hallucinations, unspecified (principal); R45.851 Suicidal ideations; M54.50 Low back pain, unspecified; Z91.81 History of falling
CPT/HCPCS: 36415; 71046; 72100; 80053; 80143; 80179; 80307; 83690; 85025; 87502; 87635; 99282; 99285; S9485